=== PATIENT | male | born 1955 | race Caucasian/White ===

== ENCOUNTER 2016-12-29 17:43 | Emergency (ER) | payer OTHER ==
[~2016-12-29] VITALS: Ht 182.9 cm; Wt 117.4 kg
[~2016-12-29 17:43] MED LIST: ALL300 PO; CYAN100020 PO; GLC850 PO; LPT/20 PO; LSX80 PO; MAGN250T3 PO; MCR5 PO; OMEG5CAP PO; PRN1 PO; SITA1TAB27 PO; SPR25 PO; TIMO1SOL9 OPB; WARF5TAB90 PO; [UNRECOGNIZED DRUG - CODE] PO
[2016-12-29 18:00] VITALS: Ht 182.9 cm; Wt 117.4 kg
[2016-12-29] MEDS ORDERED: ONDANSETRON INJ 2 MG/ML 2 ML VIAL IV STA (18:16)
[2016-12-29] MEDS ORDERED: CEFAZOLIN SOD 1000MG/55 ML D5W IV STA (18:16)
[2016-12-29 18:53] LABS: HEMATOCRIT 33.8 % (42-52); MEAN CELL VOLUME 87.1 fL (80-100); MEAN CORPUSCULAR HEMOGLOBIN 30.7 pg (25-34); MEAN CORPUSCULAR HGB CONC 35.2 g/dl (32-36); MEAN PLATELET VOLUME 9.3 fL (7.4-10.4); PLATELET COUNT 147 K/uL (130-400); RED BLOOD COUNT 3.88 M/uL (4.7-6.1); WHITE BLOOD COUNT 10.82 K/uL (4.8-10.8)
[2016-12-29] MEDS ORDERED: ZIOPTAN 0.0015% OPB (18:54)
[2016-12-29] MEDS ORDERED: PILO1SOL3 OPB (18:54)
[2016-12-29] MEDS ORDERED: ASPI81TA28 PO (18:54)
[2016-12-29] MEDS ORDERED: LIRA18IN SQ (18:56)
[2016-12-29] MEDS ORDERED: POLYSOL50 OPR (19:00)
[2016-12-29] MEDS ORDERED: PRED1SUS3 OPR (19:00)
[2016-12-29] MEDS ORDERED: KETO0.4S2 OPR (19:00)
[2016-12-29 19:11] LABS: BUN/CREATININE RATIO 16.5 (10-20); CALCIUM 9.1 mg/dl (8.5-10.1); CREATININE 1.6 mg/dl (0.60-1.40); POTASSIUM 4.3 mmol/L (3.5-5.1)
[2016-12-29 19:19] LABS: BASO % 0.1 %; BASO ABS # 0.01 K/uL (0-0.2); COMPLETE YES; EOS % 1.8 %; IG% 0.2 %; LARGE PLATELETS 1+; LYMPH % 4.3 %; LYMPH ABS # 0.46 K/uL (1.2-3.4); MONO % 4.5 %; NEUT % 89.1 %
[2016-12-29] MEDS ORDERED: CEPH500C PO (19:58)
[2016-12-29] MEDS ORDERED: ONDA4TAB10 SL (19:59)
--- NOTE | 2016-12-29 20:00 | EMERGENCY ROOM VISIT NOTE ---
History Report prepared by Екатерина: Yobany Bustillo Under the Supervision of: Dr. Markie Martinez D.O. First contact with patient: 18:05 Chief Complaint: LEG PAIN,LEG INJURY Stated Complaint: POSSIBLE BLOOD CLOT IN LF LEG History of Present Illness The patient is a 61 year old male who presents to the Emergency Room with complaints of worsening pain in his left tavera beginning prior to arrival. He currently rates his discomfort a 6/10 in severity. The patient states that it feels like he is having a blood clot. He complains of fever, chills, and vomiting. He states he has not had a blood clot since 1985, and since then, he has been put on Warfarin. The patient notes that the last time his INR level was check was 6 days ago. He reports that his typical dose of Warfarin is 5.0, but on Wednesdays and it is increased to 7.5. The patient states that he recently had a cataract removed and was required to stop his blood thinner for 5 days. He notes he has resumed his daily dosage. The patient reports that he is getting surgery soon due to a history of open sores on his legs. He states that he is treated with Amoxicillin when he gets infections in his legs. Source of History: patient Onset: Prior to arrival Position: leg (left) Symptom Intensity: 6/10 Timing: worsening Associated Symptoms: + chills, + fevers, + vomiting Review of Systems See HPI for pertinent positives & negatives. A total of 10 systems reviewed and were otherwise negative. Past Medical & Surgical Medical Problems: (1) Bone infection (2) Diabetes Family History No significant family history Social History Smoking Status: Never Smoker Drug Use: none Marital Status: Housing Status: lives with family Occupation Status: employed Current/Historical Medications Scheduled Allopurinol (Allopurinol), 300 MG PO DAILY Aspirin (Aspirin Ec), 81 MG PO DAILY Atorvastatin (Atorvastatin Calcium), 20 MG PO DAILY Cephalexin Monohydrate (Keflex), 500 MG PO QID Cyanocobalamin (Vitamin B12), 1,000 MCG PO DAILY Furosemide (Furosemide), 80 MG PO DAILY Glyburide (Glyburide), 10 MG PO BID Ketorolac Tromethamine (Ophth) (Acular Ls), 1 DROPS OPR BID Liraglutide (Victoza), 1.8 MG SQ QAM Magnesium (Magnesium 250 mg), 500 MG PO DAILY Metformin HCl (Metformin HCl), 850 MG PO TID Multiple Vitamins W/ Iron (Daily Multiple Vitamins/I), 1 TAB PO DAILY [place]-3 Fatty Acids (Fish Oil 1200 mg), 1,200 MG PO DAILY Ondasetron Odt (Zofran Odt), 4 MG SL Q6H Pilocarpine Hcl (Isopto Carpine), 1 DROP OPB QID Polymyxin/Trimethoprim Oph (Polytrim Oph), 1 DROP OPR QID Prednisolone Acetate (Ophth) (Pred Forte 1% Oph), 1 DROPS OPR QID Repaglinide (Repaglinide), 1 MG PO AC Sitagliptin (Januvia), 100 MG PO DAILY Spironolactone (Spironolactone), 25 MG PO BID Timolol Maleate (Ophth) (Timoptic Ocudose), 1 DROP OPB DAILY Warfarin Sodium (Coumadin), 7.5 MG PO SATURDAY,SATURDAY [Zioptan 0.0015%], 1 DROP OPB HS Miscellaneous Medications Warfarin Sodium (Coumadin), 5 MG PO Allergies Coded Allergies: No Known Allergies (Unverified , 12/29/16) Physical Exam Vital Signs Date Time Temp Pulse Resp B/P Pulse Ox O2 Delivery O2 Flow Rate FiO2 12/29/16 18:00 36.8 115 18 135/64 97 Room Air Physical Exam CONSTITUTIONAL/VITAL SIGNS: Reviewed / noted above. GENERAL: Non-toxic in appearance. INTEGUMENTARY: Warm, dry, and Stark. HEAD: Normocephalic. EYES: without scleral icterus or trauma. ENT/OROPHARYNX: clear and moist. LYMPHADENOPATHY/NECK: Is supple without lymphadenopathy or meningismus. RESPIRATORY: Lungs clear and equal. CARDIOVASCULAR: Regular rate and rhythm. GI/ABDOMEN: Soft and nontender. No organomegaly or pulsatile mass. No rebound or guarding. Normal bowel sounds. EXTREMITIES: Left lower extremity reveals significant warmth, pinkish erythema to the mid and upper aspect of the leg, no abnormal discharge. BACK: No CVA tenderness. NEUROLOGICAL: Intact without focal deficits. PSYCHIATRIC: normal affect. MUSCULOSKELETAL: Normally developed with good muscle tone. Medical Decision & Procedures ER Provider Diagnostic Interpretation: Radiology results as stated below per my review and radiologist interpretation: Left lower extremity ultrasound: No evidence of DVT. Laboratory Results 12/29/16 18:40 Red Blood Count 3.88, Mean Corpuscular Volume 87.1, Mean Corpuscular Hemoglobin 30.7, Mean Corpuscular Hemoglobin Concent 35.2, Mean Platelet Volume 9.3, Neutrophils (%) (Auto) 89.1, Lymphocytes (%) (Auto) 4.3, Monocytes (%) (Auto) 4.5, Eosinophils (%) (Auto) 1.8, Basophils (%) (Auto) 0.1, Neutrophils # (Auto) 9.65, Lymphocytes # (Auto) 0.46, Monocytes # (Auto) 0.49, Eosinophils # (Auto) 0.19, Basophils # (Auto) 0.01 12/29/16 18:40 Test 12/29/16 18:40 White Blood Count 10.82 K/uL (4.8-10.8) Red Blood Count 3.88 M/uL (4.7-6.1) Hemoglobin 11.9 g/dL (14.0-18.0) Hematocrit 33.8 % (42-52) Mean Corpuscular Volume 87.1 fL (80-100) Mean Corpuscular Hemoglobin 30.7 pg (25-34) Mean Corpuscular Hemoglobin Concent 35.2 g/dl (32-36) Platelet Count 147 K/uL (130-400) Mean Platelet Volume 9.3 fL (7.4-10.4) Neutrophils (%) (Auto) 89.1 % Lymphocytes (%) (Auto) 4.3 % Monocytes (%) (Auto) 4.5 % Eosinophils (%) (Auto) 1.8 % Basophils (%) (Auto) 0.1 % Neutrophils # (Auto) 9.65 K/uL (1.4-6.5) Lymphocytes # (Auto) 0.46 K/uL (1.2-3.4) Monocytes # (Auto) 0.49 K/uL (0.11-0.59) Eosinophils # (Auto) 0.19 K/uL (0-0.5) Basophils # (Auto) 0.01 K/uL (0-0.2) RDW Standard Deviation 51.6 fL (36.4-46.3) RDW Coefficient of Variation 16.3 % (11.5-14.5) Immature Granulocyte % (Auto) 0.2 % Immature Granulocyte # (Auto) 0.02 K/uL (0.00-0.02) Nucleated RBC Absolute Count (auto) 0.02 K/uL (0-0) Nucleated Red Blood Cells % 0.2 % Large Platelets 1+ Basophilic Stippling 1+ Anion Gap 9.0 mmol/L (3-11) Est Creatinine Clear Calc Drug Dose 65.8 ml/min Estimated GFR () 53.9 Estimated GFR (Non- 46.5 BUN/Creatinine Ratio 16.5 (10-20) Calcium Level 9.1 mg/dl (8.5-10.1) Laboratory results as stated above per my review. Medications Administered Medications (Trade) Dose Ordered Sig/Rio Route Start Time Stop Time Status Last Admin Dose Admin Cefazolin Sodium (Ancef 1000mg/55 ml D5W) 2,000 mg NOW STAT IV 12/29/16 18:16 12/29/16 18:20 DC 12/29/16 18:56 2,000 MG Ondansetron HCl (Zofran Inj) 4 mg NOW STAT IV 12/29/16 18:16 12/29/16 18:20 DC 12/29/16 18:56 4 MG ED Course 180: Previous medical records were reviewed. The patient was evaluated in room B06. A complete history and physical examination was performed. 1815: Ordered Zofran Inj 4mg IV, Cefazolin Sodium 2000mg IV 1930: I reevaluated the patient, and he is resting easily. 2001: On reevaluation, the patient is feeling better. I discussed the results and findings with the patient. He verbalized agreement of the treatment plan. He was discharged home. Medical Decision Differential diagnosis: Etiologies such as cellulitis, abscess, MRSA infection, DVT, necrotizing fasciitis, dermatitis, drug eruption, as well as others were entertained. This is a 61-year-old male who presents to the ED with a chief complaint of left lower extremity discomfort. The patient states that he also had an episode of some fevers and chills subjectively earlier today. He also had an episode of vomiting. The patient has a history of lower extremity edema and ulcers. The patient has no other specific complaints at this time. His exam is suggestive of a cellulitis. He has erythema mostly in the proximal aspect of the lower extremity from the an area just below the knee to about 3 or 4 inches distal. This area is warm and pinkish red in color. There is no proximal erythematous tracking. The patient's blood work was performed. A CBC was relatively unremarkable. Chemistry panel did not show any significant abnormalities. An ultrasound did not show DVT. The patient is currently on Coumadin. This was stopped briefly for about 5 days for eye surgery. He is currently back on the Coumadin. The patient was given Ancef IV. He was given some IV Zofran. He'll be discharged on Zofran and Keflex. He has follow-up with the wound center. Impression Primary Impression: Cellulitis of left lower extremity Scribe Attestation The scribe's documentation has been prepared under my direction and personally reviewed by me in its entirety. I confirm that the note above accurately reflects all work, treatment, procedures, and medical decision making performed by me. Departure Information Dispostion Home / Self-Care Prescriptions Ondasetron Odt (ZOFRAN ODT) 4 Mg Tab 4 MG SL Q6H for Nausea, #15 TAB Prov: Markie Martinez D.O. 12/29/16 Cephalexin Monohydrate (Keflex) 500 Mg Cap 500 MG PO QID, #40 CAP Prov: Markie Martinez D.O. 12/29/16 Referrals Sheri Robledo M.D. (PCP) Patient Instructions Cellulitis Dc, [facility] Additional Instructions Keflex as prescribed for cellulitis of the left leg. Follow-up with your doctors as scheduled. Zofran: Allow one tablet to dissolve under the tongue every 6 hours as needed for nausea or vomiting. Return for any concerns or worsening.
--- NOTE | 2016-12-29 20:12 | DIAGNOSTIC IMAGING REPORT ---
Venous Doppler left leg LEFT VENOUS DOPP LOWER EXT UNILAT CLINICAL HISTORY: EVALUATE FOR DVT pain. Edema. TECHNIQUE: Venous Doppler COMPARISON STUDY: None FINDINGS: Normal study IMPRESSION: Normal study Electronically signed by: Prabhakar Horn M.D. 12/29/2016 8:11 PM Dictated Date/Time: 12/29/2016 8:11 PM
[2016-12-29 20:22] VITALS: BP 131/66; PULSE 101; TEMP 36.8; O2SAT 97
[2017-01-01] MEDS ORDERED: VALA500T60 PO (07:37)
[2017-01-25] MEDS ORDERED: SULF800T23 PO (14:51)
[2017-03-01] MEDS ORDERED: CEPH500C2 PO (13:43)
[2017-03-12] MEDS ORDERED: CEPH500C PO (08:47)
[2017-05-06] MEDS ORDERED: CEPH500C PO (13:24)
[2017-05-16] MEDS ORDERED: CEPH500C PO (08:53)
[2017-06-06] MEDS ORDERED: CEPH500C2 PO (09:42)
[2017-07-03] MEDS ORDERED: CEPH500C PO (09:37)
== END 2016-12-29 20:24 | disposition home or self-care (01) ==
LOC: C.EDB 17:44
DX: L03.116 Cellulitis of left lower limb (principal); E11.9 Type 2 diabetes mellitus without complications; Z79.01 Long term (current) use of anticoagulants; Z86.718 Personal history of other venous thrombosis and embolism; Z79.82 Long term (current) use of aspirin; Z79.84 Long term (current) use of oral hypoglycemic drugs

== ENCOUNTER → 2017-03-05 | Outpatient (CLI) | payer OTHER ==
[~2017-03-05] MED LIST changes: +ASPI81TA28 PO; +CEPH500C PO; +CEPH500C2 PO; +KETO0.4S2 OPR; +LIRA18IN SQ; +ONDA4TAB10 SL; +PILO1SOL3 OPB; +POLYSOL50 OPR; +PRED1SUS3 OPR; +ZIOPTAN 0.0015% OPB
[2017-03-05 12:53] LABS: HEMATOCRIT 32.6 % (42-52); MEAN CELL VOLUME 87.4 fL (80-100); MEAN CORPUSCULAR HEMOGLOBIN 29.5 pg (25-34); MEAN CORPUSCULAR HGB CONC 33.7 g/dl (32-36); MEAN PLATELET VOLUME 10.1 fL (7.4-10.4); PLATELET COUNT 169 K/uL (130-400); RED BLOOD COUNT 3.73 M/uL (4.7-6.1); WHITE BLOOD COUNT 5.08 K/uL (4.8-10.8)
[2017-03-05 13:11] LABS: INR 2.2 (0.9-1.1); PROTHROMBIN TIME (PATIENT) 24.2 SECONDS (9.0-12.0)
[2017-03-05 13:36] LABS: BLOOD UREA NITROGEN 26 mg/dl (7-18); BUN/CREATININE RATIO 16.4 (10-20); CALCIUM 9.2 mg/dl (8.5-10.1); CARBON DIOXIDE 25 mmol/L (21-32); CHLORIDE 104 mmol/L (98-107); GLUCOSE 344 mg/dl (70-99); POTASSIUM 4.3 mmol/L (3.5-5.1); SODIUM 137 mmol/L (136-145)
[2017-03-05 14:09] LABS: BETA-HYDROXYBUTYRATE 1.21 mg/dL (0.2-2.81)
== END | disposition home or self-care (01) ==
LOC: C.LABPBG 09:05
PROVIDERS: ATTEND Internal Medicine Interventional Cardiology
DX: Z01.818 Encounter for other preprocedural examination (principal)

== ENCOUNTER 2017-03-06 06:33 | Day surgery (SDC) | payer OTHER ==
[~2017-03-06] VITALS: Ht 182.9 cm; Wt 167.0 kg
[~2017-03-06 06:33] MED LIST changes: -CEPH500C PO; +SODIUM CHLORIDE 0.9% 1000ML IV SCH
[2017-03-06 06:50] VITALS: BP 168/77; PULSE 77; TEMP 37; O2SAT 98; Ht 182.9 cm; Wt 167.0 kg
[2017-03-06] MEDS ORDERED: SODIUM BICARB 8.4% INJ 50 MEQ/50 ML SYR IV ONE (07:38)
[2017-03-06] MEDS ORDERED: LIDOCAINE/EPINEPHRINE 1% INJ 50 ML VIAL ONE ×2 (07:38→09:35)
[2017-03-06] MEDS ORDERED: LIDOCAINE HCL 1% 20 ML VIAL ONE (07:39)
[2017-03-06] MEDS ORDERED: FENTANYL CITRATE INJ 50 MCG/1 ML 2 ML VIAL ONE (07:39)
[2017-03-06] MEDS ORDERED: MIDAZOLAM HCL 1 MG/ML 2ML VIAL ONE (07:39)
[2017-03-06 07:52] VITALS: BP 168/77; PULSE 77; TEMP 37; O2SAT 98
--- NOTE | 2017-03-06 08:12 | History and Physical ---
History & Physical Date Mar 06, 2017. History of Present Illness Mr. Wu is a 62-year-old man with history of type 2 diabetes, on oral therapy, prior DVT, on long-term Coumadin, and chronic venous insufficiency with longstanding lower extremity wounds, who was seen at the wound center on 11/29 for further evaluation of his chronic venous insufficiency. The patient states that he has had issues with lower extremity swelling, skin discoloration for more than 15 years. More recently, he has had ulcerations bilaterally over his lower extremities in the setting of significant skin discoloration since March of this year. The patient was previously followed by the wound care center in [place], previously being treated with Unna boots. More recently, he has been treated by the [facility] with improvement in his ulcerations. The patient reports history of DVT which sounds to be a right popliteal DVT in the setting of trauma in 1984. He has never had any additional vein therapy. He is not a current smoker. He continues to take diuretics with some improvement in symptoms. PAST MEDICAL HISTORY: 1. Chronic venous insufficiency with recurrent venous stasis ulcerations. 2. Prior DVT as discussed above. 3. Type 2 diabetes. 4. Osteomyelitis of the right fifth toe, status post amputation. 5. Glaucoma. Additional History Hepatic Disease: No Endocrine Disorder: Yes Kidney Disease: No Hypertension: Yes Heart Disease: No Bleeding Tendencies: No Infectious Diseases: No Allergies Coded Allergies: No Known Allergies (Unverified , 03/06/17) Home Medications Scheduled Allopurinol (Allopurinol), 300 MG PO DAILY Aspirin (Aspirin Ec), 81 MG PO DAILY Atorvastatin (Atorvastatin Calcium), 20 MG PO DAILY Cephalexin Monohydrate (Keflex), 500 MG PO TID Cyanocobalamin (Vitamin B12), 1,000 MCG PO DAILY Furosemide (Furosemide), 80 MG PO DAILY Glyburide (Glyburide), 10 MG PO BID Ketorolac Tromethamine (Ophth) (Acular Ls), 1 DROPS OPR BID Liraglutide (Victoza), 1.8 MG SQ QAM Magnesium (Magnesium 250 mg), 500 MG PO DAILY Metformin HCl (Metformin HCl), 850 MG PO TID Multiple Vitamins W/ Iron (Daily Multiple Vitamins/I), 1 TAB PO DAILY [place]-3 Fatty Acids (Fish Oil 1200 mg), 1,200 MG PO DAILY Pilocarpine Hcl (Isopto Carpine), 1 DROP OPB QID Polymyxin/Trimethoprim Oph (Polytrim Oph), 1 DROP OPR QID Prednisolone Acetate (Ophth) (Pred Forte 1% Oph), 1 DROPS OPR QID Repaglinide (Repaglinide), 1 MG PO AC Sitagliptin (Januvia), 100 MG PO DAILY Spironolactone (Spironolactone), 25 MG PO BID Timolol Maleate (Ophth) (Timoptic Ocudose), 1 DROP OPB DAILY Warfarin Sodium (Coumadin), 7.5 MG PO SATURDAY,SATURDAY Miscellaneous Medications Warfarin Sodium (Coumadin), 5 MG PO Physical Examination Skin: warm/dry Eyes: normal inspection ENT: normal ENT inspection Neck: supple Respiratory/Chest: lungs clear Cardiovascular: regular rate, rhythm Abdomen / GI: normal bowel sounds Back: normal inspection Extremities: + pertinent finding (Rash on upper right thigh. chronic venous stasis changes bilaterally. distal LE's wrapped) Neurologic/Psych: no motor/sensory deficits Diagnosis Chronic venous insufficiency ASA Classification: ASA Class III Plan of Treatment Right GSV RF ablation
--- NOTE | 2017-03-06 08:13 | Procedure Note ---
Pre-Mod Sedation Assessment General Date of Moderate Sedation: Mar 06, 2017. Vital Signs: Vital Signs Past 12 Hours Date Time Temp Pulse Resp B/P (MAP) Pulse Ox O2 Delivery O2 Flow Rate FiO2 03/06/17 06:50 37 77 20 168/77 (107) 98 Room Air Review Cardiovascular: regular rate, rhythm, no edema Abdomen: normal bowel sounds, non tender Lungs: chest non-tender, lungs clear Pre-Sedation Airway Assessment Oral Cavity: Capped Teeth, WNL Able to Visualize Vocal Cords: No Short Thick Neck: Yes Hx of Sleep Apnea: Yes Smoking Status: Never Smoker Mallampati Classification: Class III ASA Classification: Class III Procedure Planning Contraindications-for Mod Sed: None Yes Notes The planned sedation has been discussed with the patient and consent obtained. I have identified the patient, determined the appropriateness of sedation and have assessed the patient immediately prior to the procedure. All medicine(s) and interventions are by my order.
[2017-03-06] MEDS ORDERED: LIDOCAINE HCL 1% 20 ML VIAL INJ ONE (09:06)
[2017-03-06] MEDS ORDERED: ORM MISCELLANEOUS MED XX ONE (09:54)
--- NOTE | 2017-03-06 09:59 | [facility] Operative Report ---
Operative Report Operative Date Mar 06, 2017. Pre-Operative Diagnosis Chronic venous insufficiency Post-Operative Diagnosis Chronic venous insufficiency Procedure(s) Performed Right GSV RF ablation Surgeon Connor Hadoop Consultant Surgeon(s) Kaitlin Estimated Blood Loss 4 Findings Dilated Right GSV Specimens None Drains None Anesthesia Moderate Complication(s) None Disposition Recovery Room / PACU Indications CVI, Venous ulcerations Description of Procedure US guided access Right GSV below the knee. Catheter inserted, 2.75 cm from SFJ. Tumescent injected. US confirmed not in deep system. 5:20, 16 cycles of RFA right GSV. No complications. Patient tolerated well. US confirmed no DVT post procedure. I attest to the content of the Intraoperative Record and any orders documented therein. Any exceptions are noted below.
--- NOTE | 2017-03-06 09:59 | Procedure Note ---
Post-Mod Sedation Assessment General Date of Moderate Sedation Mar 06, 2017. Vital Signs: Vital Signs Past 12 Hours Date Time Temp Pulse Resp B/P (MAP) Pulse Ox O2 Delivery O2 Flow Rate FiO2 03/06/17 07:52 37.0 77 20 168/77 98 Room Air 03/06/17 06:50 37 77 20 168/77 (107) 98 Room Air Review - Discharge Criteria Vital Signs Stable: Yes Alert/Oriented/Conversant: Yes Returned to Baseline Mental St: Yes Nausea Absent/Minimal: Yes Pain/Discomfort/Absent/Minimal: Yes Normal/Baseline Respirations: Yes Active Bleeding?: No Pt Received D/C Instructions: N/A Prescriptions Given: None Specific Proced. D/C Criteria Distal Pulses Present (Cardiac: N/A Groin site assessed-Card Cath: N/A Voided Prior To Discharge: N/A Discharged Patients Adult Escort/Transportation: Yes
--- NOTE | 2017-03-06 10:03 | Discharge Instructions ---
Discharge Instructions Procedure Procedure Date: Mar 06, 2017. Reason for Visit: Venous Insufficiency. Discharge Discharge Date: Mar 06, 2017. Discharge Diagnosis: Venous insufficiency Last Recorded Wt (Kilograms): 167 Instructions Activity Recommendations: resume regular activity (Follow instructions on paperwork from Dr. Ryan' office) Recommended Home Diet: resume previous diet Allergies: Coded Allergies: No Known Allergies (Unverified , 03/06/17) Follow Up Follow-up with: Follow-up ultrasound on 03/08/2017 at 8:45 [facility] Recommendations: Call your doctor if: * Temperature above 101 degrees * Pain not relieved by pain medicine ordered * There is increased drainage or redness from any incision * You have any unanswered questions or concerns. Your Doctors Instructions noted above were prepared by provider Kali Ryan. Patient Signature Section: Patient Instructions Signature Page Ronnie Wu Patient (or Guardian) Signature/Date: I have read and understand the instructions given to me by my caregivers. Caregiver/RN/Doctor Signature/Date: The above-named patient and/or guardian has received patient instructions on this date. + Original Patient Signature Page (only) stays with chart. Please make copy for patient.
[2017-03-06 10:15] VITALS: BP 156/79; PULSE 74; TEMP 36.7; O2SAT 100
[2017-03-06 10:45] VITALS: BP 140/63; PULSE 76; TEMP 36.7; O2SAT 99
[2017-03-12] MEDS ORDERED: CEPH500C PO (08:47)
[2017-05-06] MEDS ORDERED: CEPH500C PO (13:24)
[2017-05-16] MEDS ORDERED: CEPH500C PO (08:53)
== END 2017-03-06 11:00 | disposition home or self-care (01) ==
LOC: C.ACU 06:33
PROVIDERS: ATTEND Internal Medicine Interventional Cardiology
DX: E11.9 Type 2 diabetes mellitus without complications (principal); Z79.84 Long term (current) use of oral hypoglycemic drugs; Z86.718 Personal history of other venous thrombosis and embolism; Z79.01 Long term (current) use of anticoagulants; I87.2 Venous insufficiency (chronic) (peripheral); L97.901 Non-pressure chronic ulcer of unspecified part of unspecified lower leg limited to breakdown of skin; Z86.19 Personal history of other infectious and parasitic diseases; H40.9 Unspecified glaucoma; Z79.82 Long term (current) use of aspirin

== ENCOUNTER → 2017-05-01 | Day surgery (SDC) | payer OTHER ==
[2017-05-01] VITALS (14 sets, daily range): BP systolic 131–184; BP diastolic 66–83; PULSE 64–70; TEMP 36.7–37.2; O2SAT 96–100; Ht 182.9 cm; Wt 163.5 kg
[~2017-05-01] VITALS: Ht 182.9 cm; Wt 163.5 kg
[~2017-05-01] MED LIST changes: +CEPH500C PO; -CEPH500C2 PO; +LIDOCAINE HCL 1% 20 ML VIAL INFIL ONE; +LIDOCAINE HCL 1% 20 ML VIAL ONE; +LIDOCAINE/EPINEPHRINE 1% INJ 50 ML VIAL ONE; -ONDA4TAB10 SL; +ORM MISCELLANEOUS MED XX ONE; -ZIOPTAN 0.0015% OPB
--- NOTE | 2017-05-01 09:14 | Procedure Note ---
Pre-Mod Sedation Assessment General Date of Moderate Sedation: May 01, 2017. Vital Signs: Vital Signs Past 12 Hours Date Time Temp Pulse Resp B/P (MAP) Pulse Ox O2 Delivery O2 Flow Rate FiO2 05/01/17 08:38 36.7 66 20 184/83 (116) 98 Room Air Review Cardiovascular: regular rate, rhythm, no edema Abdomen: normal bowel sounds, non tender Lungs: chest non-tender, lungs clear Airway Class: III Pre-Sedation Airway Assessment Oral Cavity: WNL Able to Visualize Vocal Cords: No Short Thick Neck: Yes Hx of Sleep Apnea: No Smoking Status: Never Smoker Mallampati Classification: Class III ASA Classification: Class II Procedure Planning Contraindications-for Mod Sed: None Yes Notes The planned sedation has been discussed with the patient and consent obtained. I have identified the patient, determined the appropriateness of sedation and have assessed the patient immediately prior to the procedure. All medicine(s) and interventions are by my order.
--- NOTE | 2017-05-01 09:14 | History & Physical Bridge Note ---
H&P Re-Evaluation Bridge Note: I have examined the patient, reviewed the History & Physical and in the interval since the performance of the History & Physical I have noted the following changes of clinical significance: No changes noted
--- NOTE | 2017-05-01 10:40 | Procedure Note ---
Post-Mod Sedation Assessment General Date of Moderate Sedation May 01, 2017. Vital Signs: Vital Signs Past 12 Hours Date Time Temp Pulse Resp B/P (MAP) Pulse Ox O2 Delivery O2 Flow Rate FiO2 05/01/17 09:23 36.7 66 20 184/83 98 Room Air 05/01/17 08:38 36.7 66 20 184/83 (116) 98 Room Air Review - Discharge Criteria Vital Signs Stable: Yes Alert/Oriented/Conversant: Yes Returned to Baseline Mental St: Yes Nausea Absent/Minimal: Yes Pain/Discomfort/Absent/Minimal: Yes Normal/Baseline Respirations: Yes Active Bleeding?: No Pt Received D/C Instructions: Yes Prescriptions Given: None Specific Proced. D/C Criteria Distal Pulses Present (Cardiac: N/A Groin site assessed-Card Cath: N/A Voided Prior To Discharge: N/A Discharged Patients Adult Escort/Transportation: Yes
--- NOTE | 2017-05-01 10:42 | [facility] Operative Report ---
Operative Report Operative Date May 01, 2017. Pre-Operative Diagnosis Venous insufficiency Post-Operative Diagnosis Venous insufficiency Procedure(s) Performed Left Leg Greater Saphenous Vein Radiofrequency Ablation Surgeon Connor Proposal Rep Surgeon(s) None Estimated Blood Loss 5 Findings Dilated left GSV Specimens None Drains none Anesthesia local Complication(s) None Disposition Recovery Room / PACU Indications Venous insufficiency, venous ulcers Description of Procedure US guided access Left GSV below the knee. Catheter inserted, 3cm from SFJ. Tumescent injected. US confirmed not in deep system. 4:20, 13 cycles of RFA to left GSV. No complications. Patient tolerated well. US confirmed no DVT post procedure. I attest to the content of the Intraoperative Record and any orders documented therein. Any exceptions are noted below.
--- NOTE | 2017-05-01 10:44 | Discharge Instructions ---
Discharge Instructions Procedure Procedure Date: May 01, 2017. Reason for Visit: Venous Insufficiency. Discharge Discharge Date: May 01, 2017. Discharge Diagnosis: Venous insufficiency Last Recorded Wt (Kilograms): 163.5 Anesthesia Post Anesthesia Instructions: If you have had General Anesthesia or IV Sedation: * Do not drive today. * Resume driving when surgeon permits. * Do not make important decisions or sign legal documents today. * Call surgeon for: 1. Temperature elevations greater than 101 degrees F. 2. Uncontrollable pain. 3. Excessive bleeding. 4. Persistent nausea and vomiting. 5. Medication intolerance (nausea, vomiting or rash). * For nausea and vomiting use only clear liquids such as: tea, soda, bouillon until nausea subsides, then gradually increase diet as tolerated. * If you have any concerns or questions, call your surgeon's office. If physician is unavailable and it is an emergency, call 911 or go to the nearest emergency room. Instructions Activity Recommendations: limitations as noted below Recommended Home Diet: resume previous diet Allergies: Coded Allergies: No Known Allergies (Unverified , 05/01/17) Follow Up Additional Instructions: Follow instructions as outlined on paperwork from Dr. Ryan' office. RIKI wrap until seen by wound clinic. Follow up Ultrasound as scheduled. Any severe pain, present to the emergency room concerned about DVT. Follow-up with: As Scheduled Kiki Pichardo Recommendations: Call your doctor if: * Temperature above 101 degrees * Pain not relieved by pain medicine ordered * There is increased drainage or redness from any incision * You have any unanswered questions or concerns. Your Doctors Instructions noted above were prepared by provider Kali Ryan. Patient Signature Section: Patient Instructions Signature Page Ronnie Wu Patient (or Guardian) Signature/Date: I have read and understand the instructions given to me by my caregivers. Caregiver/RN/Doctor Signature/Date: The above-named patient and/or guardian has received patient instructions on this date. + Original Patient Signature Page (only) stays with chart. Please make copy for patient.
== END | disposition home or self-care (01) ==
LOC: C.ACU 07:53
PROVIDERS: ATTEND Internal Medicine Interventional Cardiology
DX: I87.2 Venous insufficiency (chronic) (peripheral) (principal); E11.9 Type 2 diabetes mellitus without complications; Z86.718 Personal history of other venous thrombosis and embolism; Z79.01 Long term (current) use of anticoagulants; Z79.82 Long term (current) use of aspirin; Z79.84 Long term (current) use of oral hypoglycemic drugs; Z79.899 Other long term (current) drug therapy

== ENCOUNTER 2019-06-09 11:00 | Observation (INO) ==
[2019-06-09 12:46] LABS: Appearance Urine Clear (Clear); Bilirubin Urine Negative (Negative); Blood Urine Negative (Negative); Color Urine Yellow; Glucose Urine UA 3+ (Negative); Ketones Urine Negative (Negative); Leukocyte Esterase Urine Negative (Negative); Nitrite Urine Negative (Negative); Protein Urine Negative (Negative); Specific Gravity Urine 1.017 (1.000-1.030); Urobilinogen Urine Negative (Negative)
[2019-06-09 12:50] LABS: Basophils # (auto) 0.02 K/uL (0-0.2); Basophils % (auto) 0.3 %; Eosinophils # (auto) 0.25 K/uL (0-0.5); Hematocrit (blood only) 30.2 % (42-52); Hemoglobin 10.9 g/dL (14.0-18.0); Immature Granulocytes # (auto) 0.01 K/uL (0.00-0.02); Immature Granulocytes % (auto) 0.2 %; Lymphocytes # (auto) 1.92 K/uL (1.2-3.4); Lymphocytes % (auto) 30.5 %; Mean Corpuscular Hemoglobin 31.3 pg (25-34); Mean Corpuscular Hgb Conc 36.1 g/dL (32-36); Mean Corpuscular Volume 86.8 fL (80-100); Monocytes # (auto) 0.33 K/uL (0.11-0.59); Monocytes % (auto) 5.2 %; Neutrophils # (auto) 3.77 K/uL (1.4-6.5); Neutrophils % (auto) 59.8 %; Platelet Count 131 K/uL (130-400); RDW Coefficient of Variation 15.7 % (11.5-14.5); RDW Standard Deviation 49.1 fL (36.4-46.3); Red Blood Count 3.48 M/uL (4.7-6.1)
[2019-06-09 13:06] LABS: Albumin Level 3.7 gm/dl (3.4-5.0); BUN Creatinine Ratio 33.7 (10-20); Calcium 9.1 mg/dl (8.5-10.1); Creatinine Clr Calc Pharmacy 61.7 ml/min; Est GFR (African American) 42.6; Est GFR (Non-African American) 36.7; Potassium 5.5 mmol/L (3.5-5.1)
[2019-06-09 13:09] LABS: Albumin Globulin Ratio 0.9 (0.9-2); Bilirubin,Total 0.6 mg/dl (0.2-1); Total Protein 7.7 gm/dl (6.4-8.2)
[2019-06-09] MEDS ORDERED: SODIUM CHLORIDE 0.9% 1000ML 2,000 ML IV ONE (14:53)
--- NOTE | 2019-06-09 15:32 | CT Scan Report ---
CT SCAN OF THE ABDOMEN AND PELVIS WITHOUT CONTRAST CLINICAL HISTORY: Elevated lipase and creatinine. COMPARISON STUDY: No previous studies for comparison. TECHNIQUE: CT scan of the abdomen and pelvis was performed from the lung bases to the proximal femurs . Images are reviewed in the axial, sagittal, and coronal planes. IV contrast was not administered fo r this examination. A dose lowering technique was utilized adhering to the principles of ALARA. CT DOSE: 1739.33 mGy.cm FINDINGS: Lower chest: The heart is normal in size and configuration, without pericardial effusion. The lung ba ses and pleural spaces are clear. Liver: The unenhanced liver is normal in size, contour, and attenuation. There is no intrahepatic dee iary ductal dilatation. Gallbladder: Cholelithiasis Spleen: Borderline enlarged measuring 12.3 cm in length Pancreas: Unremarkable. Adrenal glands: Unremarkable. Kidneys: There is a 13 mm calculus within the right renal pelvis. There is no significant hydronephro sis. Bilateral hypodense renal lesions statistically represent cysts. Bowel: There are no transition zones indicate bowel obstruction. There is no evidence of acute divert iculitis. The appendix appears normal. Peritoneum: There is no intraperitoneal free air or abdominal ascites. There is a small fat-containin g left inguinal hernia Vasculature: There is moderate atheromatous calcifications. There is no evidence of abdominal aortic aneurysm. Adenopathy: None. Pelvic viscera: The bladder, and pelvic viscera are unremarkable. Skeletal structures: No destructive osseous lesions are seen. IMPRESSION: 1. No evidence of bowel obstruction. No evidence of free air 2. Normal appendix. No evidence of acute diverticulitis 3. Cholelithiasis 4. 13 mm calculus within the right renal pelvis Electronically signed by: Misha Urbano M.D. 06/09/2019 3:31 PM
--- NOTE | 2019-06-09 17:08 | Emergency Department Note ---
Entered by Minh Ernst acting as a scribe for Phan Voss DO History of Present Illness General Chief complaint: Abnormal Labs/Diagnostic Testing Stated complaint: SENT BY DOC ABNORMAL LABS Source: patient History of Present Illness Provider complaint: abnormal labs Onset (ago): hour(s) less than 1 Location: abdomen Pain Consistency: + other (worsening) Quality: + other (abdnormal ) Associated symptoms: + denies other symptoms The patient is a 65 y/o male with a past medical history of diabetes and venous stasis ulcers, who presents to the emergency department for evaluation of abnormal blood work from [facility] prior to arrival. The patient states that he was told that he had abdominal blood work done on Saturday. He reports that he has blood work done last week when he first noticed he was not feeling well and when his repeat work was done on Saturday they informed him it looked worse and to come to the ED. He states that last week he was feeling dizzy and light headed which is worse with standing up. Patient denies swelling of calves, recent trips, history of immobilization or recent surgery, prior history of DVT, hemoptysis, history of malignancy, history of smoking, and any other symptoms. Home Medications Home Medications Medication Instructions Recorded Confirmed Type allopurinol 300 mg tablet 300 mg PO QAM 04/08/18 06/09/19 History aspirin 81 mg tablet,delayed 81 mg PO QAM 04/08/18 06/09/19 History release atorvastatin 20 mg tablet 20 mg PO QAM 04/08/18 06/09/19 History cyanocobalamin (vit B-12) 1,000 1,000 mcg PO QAM 04/08/18 06/09/19 History mcg tablet furosemide 80 mg tablet 80 mg PO QAM 04/08/18 06/09/19 History glyburide 5 mg tablet 5 mg PO BIDM 04/08/18 06/09/19 History liraglutide 0.6 mg/0.1 mL (18 mg/3 1.8 mg SQ QAM ml 04/08/18 06/09/19 History mL) subcutaneous pen injector magnesium 250 mg (as magnesium 500 mg PO QAM tab 04/08/18 06/09/19 History oxide) tablet metformin 850 mg tablet 850 mg PO TIDM tab 04/08/18 06/09/19 History omega 8-ycv-mac-fish oil 100 1 cap PO QAM cap 04/08/18 06/09/19 History mg-160 mg-1,000 mg capsule repaglinide 1 mg tablet 2 mg PO AC 04/08/18 06/09/19 History warfarin 5 mg tablet 5 mg PO SUTUWETHFRSA 04/08/18 06/09/19 History warfarin 7.5 mg tablet 7.5 mg PO MO 04/08/18 06/09/19 History amlodipine 2.5 mg PO QAM 09/03/18 06/09/19 History latanoprost 1 drp OPHTHALMIC (EYE) HS 09/03/18 06/09/19 History carvedilol 3.125 mg PO BID 01/02/19 06/09/19 History lisinopril 20 mg tablet 20 mg PO HS tab 04/15/19 06/09/19 History spironolactone 25 mg tablet 25 mg PO QAM tab 04/15/19 06/09/19 History dorzolamide-timolol 1 drp OPB BID 06/09/19 06/09/19 History multivitamin 1 tab PO QAM 06/09/19 06/09/19 History Allergies Allergy/AdvReac Type Severity Reaction Status Date / Time No Known Allergies Allergy Verified 06/09/19 13:03 Past Med/Surg History Medical History History of amputation of toe Vitamin B12 deficiency Anemia Hx of deep venous thrombosis Chronic anticoagulation T2DM (type 2 diabetes mellitus) Diabetic neuropathy Mild nonproliferative diabetic retinopathy SPENCER (obstructive sleep apnea) Gout CHF (congestive heart failure) CKD (chronic kidney disease) stage 3, GFR 30-59 ml/min RLS (restless legs syndrome) Chronic venous insufficiency (Chronic) Diabetes (Chronic) TYPE 2. Diabetes mellitus, type 2 +NEUROPATHY IN B/L FEET. History of DVT (deep vein thrombosis) LEFT LEG IN 1984. OCCURED AFTER INJURY. 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 and A total of 10 systems reviewed and were otherwise negative Physical Exam Vital Signs Vital Signs - 24 hr 06/09/19 11:01 06/09/19 13:46 06/09/19 15:25 Temperature 36.2 C L Temperature Source Oral Sepsis Recent Fever Within 48 Hours No Sepsis New/Unexplained Change in Mental Status No Sepsis Action Taken by Nursing No Action Required Pulse Rate 66 Pulse Rate [Right Finger] 78 67 Pulse Rhythm [Right Finger] Regular Regular Pulse Strength [Right Finger] Normal Normal Respiratory Rate 20 20 16 Respiratory Effort / Characteristics Non-Labored Spontaneous Non-Labored Spontaneous Respiratory Depth Normal Normal Normal Respiratory Pattern Regular Regular Blood Pressure 168/71 H Blood Pressure [Right Arm] 137/69 144/69 H Blood Pressure Mean 103 Blood Pressure Mean [Right Arm] 91 94 Blood Pressure Position [Right Arm] Lying Sitting Pulse Oximetry 98 100 100 Oxygen Delivery Method Room Air Room Air Room Air 06/09/19 15:26 Temperature Temperature Source Sepsis Recent Fever Within 48 Hours Sepsis New/Unexplained Change in Mental Status Sepsis Action Taken by Nursing Pulse Rate Pulse Rate [Right Finger] 63 Pulse Rhythm [Right Finger] Regular Pulse Strength [Right Finger] Normal Respiratory Rate 20 Respiratory Effort / Characteristics Non-Labored Spontaneous Respiratory Depth Normal Respiratory Pattern Blood Pressure Blood Pressure [Right Arm] 144/69 H Blood Pressure Mean Blood Pressure Mean [Right Arm] 94 Blood Pressure Position [Right Arm] Lying Pulse Oximetry 100 Oxygen Delivery Method Room Air GENERAL: Sitting up in bed, obese, pleasant, wearing gown. EYE EXAM: normal conjunctiva. OROPHARYNX: no exudate, no erythema, lips, buccal mucosa, and tongue normal and mucous membranes are moist NECK: supple, no nuchal rigidity, no adenopathy, non-tender LUNGS: Clear to auscultation. Normal chest wall mechanics HEART: no murmurs, S1 normal and S2 normal ABDOMEN: abdomen soft, non-tender, normo-active bowel sounds, no masses, no rebound or guarding. BACK: Back is symmetrical on inspection and there is no deformity, no midline tenderness, no CVA tenderness. SKIN: no rashes and no bruising UPPER EXTREMITIES: upper extremities are grossly normal. LOWER EXTREMITIES: No pitting edema. calves equal bilaterally NEURO EXAM: Normal sensorium, cranial nerves II-XII intact, normal speech, no weakness of arms, no weakness of legs. Course ED COURSE: Vital signs were reviewed and showed hypertensive The patients medical record was reviewed The above diagnostic studies were performed and reviewed. ED treatments and interventions as stated above. 1214: The patient was evaluated in room B03. A complete history and physical examination was performed. 1451: I spoke with Laverne Osman. She will evaluate for further management. 1500: Upon reevaluation, the patient is feeling fine. I discussed my findings with the patient and he understands and agrees with the treatment plan. Based on the patients age, coexisting illnesses, exam and lab findings the decision to treat as an inpatient was made. The patient remained stable while under my care. The patient will be evaluated for further management. Administered Medications Discontinued Medications Sodium Chloride (Nss 1000ml) 2,000 mls @ 999 mls/hr IV .Q2H1M ONE Stop: 06/09/19 16:53 Last Admin: 06/09/19 14:53 Dose: 999 mls/hr Documented by: [id number] Medical Decision Making Differential Diagnosis Differential diagnosis: Etiologies such as benign positional vertigo, labrynthitis, dehydration, hypovolemia, anemia, tumor, infection, hypoglycemia, electrolyte abnormalities, cardiac sources, toxicological sources, central neurologic process, as well as others were entertained. Medical Records Attestation: I reviewed the patient's medical records. Home Medications Current Medication List: was personally reviewed by me Laboratory Data Attestation: I reviewed the patient's lab results. Result diagrams: 06/09/19 12:06/09/19 12:29 Lab Results 06/09/19 06/09/19 06/09/19 Range/Units 12:29 12:29 12:29 WBC 6.30 (4.8-10.8) K/uL RBC 3.48 L (4.7-6.1) M/uL Hgb 10.9 L (14.0-18.0) g/dL Hct 30.2 L (42-52) % MCV 86.8 (80-100) fL MCH 31.3 (25-34) pg MCHC 36.1 H (32-36) g/dL RDW Std Deviation 49.1 H (36.4-46.3) fL RDW Coeff of Brent 15.7 H (11.5-14.5) % Plt Count 131 (130-400) K/uL MPV 9.0 (7.4-10.4) fL Immature Gran % (Auto) 0.2 % Neut % (Auto) 59.8 % Lymph % (Auto) 30.5 % [place] % (Auto) 5.2 % Eos % (Auto) 4.0 % Baso % (Auto) 0.3 % Immature Gran # (Auto) 0.01 (0.00-0.02) K/uL Neut # (Auto) 3.77 (1.4-6.5) K/uL Lymph # (Auto) 1.92 (1.2-3.4) K/uL [place] # (Auto) 0.33 (0.11-0.59) K/uL Eos # (Auto) 0.25 (0-0.5) K/uL Baso # (Auto) 0.02 (0-0.2) K/uL Sodium 135 L (136-145) mmol/L Potassium 5.5 H (3.5-5.1) mmol/L Chloride 105 (98-107) mmol/L Carbon Dioxide 21 (21-32) mmol/L Anion Gap 8.0 (3-11) BUN 64 H (7-18) mg/dl Creatinine 1.91 H (0.6-1.4) mg/dl Est Cr Clr Drug Dosing 61.7 ml/min Est GFR ( Amer) 42.6 Est GFR (Non-Af Amer) 36.7 BUN/Creatinine Ratio 33.7 H (10-20) Glucose 282 H (70-99) mg/dl Calcium 9.1 (8.5-10.1) mg/dl Total Bilirubin 0.6 (0.2-1) mg/dl AST 23 (15-37) U/L ALT 34 (12-78) U/L Alkaline Phosphatase 68 (45-117) U/L Total Protein 7.7 (6.4-8.2) gm/dl Albumin 3.7 (3.4-5.0) gm/dl Globulin 4.0 (2.5-4.0) gm/dl Albumin/Globulin Ratio 0.9 (0.9-2) Lipase 1724 H (73-393) U/L Urine Color Yellow Urine Appearance Clear (Clear) Urine pH 6.0 (4.5-7.5) Ur Specific [place] 1.017 (1.000-1.030) Urine Protein Negative (Negative) Urine Glucose (UA) 3+ H (Negative) Urine Ketones Negative (Negative) Urine Blood Negative (Negative) Urine Nitrite Negative (Negative) Urine Bilirubin Negative (Negative) Urine Urobilinogen Negative (Negative) Ur Leukocyte Esterase Negative (Negative) Imaging Data Radiologist's Impression: Radiology results as stated below per my review and the radiologist's interpretation: CT SCAN OF THE ABDOMEN AND PELVIS WITHOUT CONTRAST CLINICAL HISTORY: Elevated lipase and creatinine. COMPARISON STUDY: No previous studies for comparison. TECHNIQUE: CT scan of the abdomen and pelvis was performed from the lung bases to the proximal femurs. Images are reviewed in the axial, sagittal, and coronal planes. IV contrast was not administered for this examination. A dose lowering technique was utilized adhering to the principles of ALARA. CT DOSE: 1739.33 mGy.cm FINDINGS: Lower chest: The heart is normal in size and configuration, without pericardial effusion. The lung bases and pleural spaces are clear. Liver: The unenhanced liver is normal in size, contour, and attenuation. There is no intrahepatic biliary ductal dilatation. Gallbladder: Cholelithiasis Spleen: Borderline enlarged measuring 12.3 cm in length Pancreas: Unremarkable. Adrenal glands: Unremarkable. Kidneys: There is a 13 mm calculus within the right renal pelvis. There is no significant hydronephrosis. Bilateral hypodense renal lesions statistically represent cysts. Bowel: There are no transition zones indicate bowel obstruction. There is no evidence of acute diverticulitis. The appendix appears normal. Peritoneum: There is no intraperitoneal free air or abdominal ascites. There is a small fat-containing left inguinal hernia Vasculature: There is moderate atheromatous calcifications. There is no evidence of abdominal aortic aneurysm. Adenopathy: None. Pelvic viscera: The bladder, and pelvic viscera are unremarkable. Skeletal structures: No destructive osseous lesions are seen. IMPRESSION: 1. No evidence of bowel obstruction. No evidence of free air 2. Normal appendix. No evidence of acute diverticulitis 3. Cholelithiasis 4. 13 mm calculus within the right renal pelvis Electronically signed by: Misha Urbano M.D. 06/09/2019 3:31 PM ECG Data Attestation: I personally reviewed and interpreted this ECG as follows: Indication: other (abnormal labs ) Rate (beats per minute): 64 Rhythm: sinus rhythm ECG Intervals/blocks: Normal QT ECG [place]: Normal ECG ST segments: ST elevation (mild- Inferior) ECG Findings: PVCs (no pvc) Blood Pressure Blood Pressure Findings: Elevated blood pressure Blood Pressure Disposition: further management by hospitalist MAINE Narrative Patient is a 64-year-old male who presents the ER referred in by PCP for weakness. Patient was dizzy and lightheaded and weak last week and had blood work obtained which showed some mild ZAHRAA. Blood pressure medications were changed and repeat blood work was obtained today which was abnormal and patient was referred into the ER. He has no abdominal pain nausea or vomiting. IV was established and shows no significant leukocytosis but a mild anemia. BMP with a potassium of 5.5 and a creatinine of 1.9 just slightly above previous at 1.6. BUN was significantly elevated at 64. Glucose was elevated to 282. Lipase was significantly elevated at 17,000. UA was negative. CT abdomen pelvis shows no acute pathology. Patient was given IV fluids. He was updated bedside. He was discussed with the hospitalist for acute kidney injury in combination with his dizziness and elevated lipase with an improving creatinine. Impression & Plan ZAHRAA (acute kidney injury), Acute pancreatitis, Orthostatic hypotension Discharge Plan Visit Data Chief Complaint: Abnormal Labs/Diagnostic Testing Stated Complaint: SENT BY DOC ABNORMAL LABS ED Provider: Phan Voss Discharge Problem: ZAHRAA (acute kidney injury), Acute pancreatitis, Orthostatic hypotension Patient Disposition: Being Evaluated by Hospitalist Forms Stand Alone Forms: [facility] Prescriptions Prescriptions: No Action allopurinol 300 mg tablet 300 mg PO QAM RF: 0 aspirin [Adult Aspirin Regimen] 81 mg tablet,delayed release (DR/EC) 81 mg PO QAM RF: 0 atorvastatin [Lipitor] 20 mg tablet 20 mg PO QAM RF: 0 cyanocobalamin (vitamin B-12) [Vitamin B-12] 1,000 mcg tablet 1,000 mcg PO QAM RF: 0 furosemide 80 mg tablet 80 mg PO QAM RF: 0 glyburide 5 mg tablet 5 mg PO BIDM RF: 0 liraglutide [Victoza 2-Ismael] 0.6 mg/0.1 mL (18 mg/3 mL) pen injector 1.8 mg SQ QAM RF: 0 magnesium oxide 250 mg tablet 500 mg PO QAM RF: 0 metformin 850 mg tablet 850 mg PO TIDM RF: 0 omega 8-yvr-quk-fish oil 100-160-1,000 mg capsule 1 cap PO QAM RF: 0 repaglinide 1 mg tablet 2 mg PO AC RF: 0 warfarin 5 mg tablet 5 mg PO SUTUWETHFRSA RF: 0 warfarin 7.5 mg tablet 7.5 mg PO MO RF: 0 lisinopril 20 mg tablet 20 mg PO HS RF: 0 spironolactone 25 mg tablet 25 mg PO QAM RF: 0 carvedilol 3.125 mg Tablet 3.125 mg PO BID RF: 0 multivitamin Tablet 1 tab PO QAM RF: 0 dorzolamide-timolol 22.3-6.8 mg/mL drops 1 drp OPB BID RF: 0 amlodipine 5 mg Tablet 2.5 mg PO QAM RF: 0 latanoprost 0.005 % Drops 1 drp OPHTHALMIC (EYE) HS RF: 0 Referrals Referrals: Nancy Ryan DO [Primary Care Provider] - Discharge Problem: Acute pancreatitis Qualifiers: Pancreatitis type: unspecified pancreatitis type Acute pancreatitis complication: unspecified Qualified Code(s): K85.90 - Acute pancreatitis without necrosis or infection, unspecified The scribe's documentation has been prepared under my direction and personally reviewed by me in its entirety. I confirm that the note above accurately reflects all work, treatment, procedures, and medical decision making performed by me.
[2019-06-09 17:36] LABS: INR 2.3 (0.9-1.1); Prothrombin Time 21.9 Seconds (9.0-12.0)
[2019-06-09] MEDS ORDERED: CARBOHYDRATES FOR HYPOGLYCEMIA PO PRN (18:06)
[2019-06-09] MEDS ORDERED: DEXTROSE 50% 50 ML SYRINGE IV PRN (18:06)
[2019-06-09] MEDS ORDERED: ACETAMINOPHEN 325 MG TAB PO PRN (18:06)
[2019-06-09] MEDS ORDERED: ONDANSETRON INJ 2 MG/ML 2 ML VIAL IV PRN (18:06)
[2019-06-09] MEDS ORDERED: POLYETHYLENE (MIRALAX) 17 GM PACK PO PRN (18:06)
[2019-06-09] MEDS ORDERED: GLUCOSE 10 TABS/TUBE PO PRN (18:06)
[2019-06-09] MEDS ORDERED: GLUCOSE 40% GEL 15 GM TUBE PO PRN (18:06)
[2019-06-09] MEDS ORDERED: GLUCAGON FOR INJ 1 MG VIAL SQ PRN (18:06)
--- NOTE | 2019-06-09 18:28 | History & Physical Report ---
Date of Service June 09, 2019 Assessment & Plan (1) Acute kidney injury superimposed on chronic kidney disease: This is a 64-year-old male with a PMH of DM II, CKD III, HLD, right sided heart failure, SPENCER on CPAP, venous stasis dermatitis of bilateral lower extremities, history of DVT on warfarin and other medical problems listed below who presents from clinic with abnormal lab work presents with acute kidney injury superimposed on CKD. -Cr elevated ~1.9-2.4 the last few days. Last Cr from November and was ~1 -In setting of poor PO intake, ? medication induced -Received 2 L NSS in ED -Holding lasix, spironolactone, lisinopril -No evidence of UTI. Renal calculus on CT abd/pelvis but no hydronephrosis or evidence of obstruction -Repeat BMP tomorrow (2) Hyperkalemia: K of 5.5 this evening in setting of ZAHRAA on CKD -EKG with NSR, no T wave changes -Holding lisinopril, spironolactone -Repeat in AM (3) Diabetes mellitus, type II: A1c of 9.1 in May 2019 -SSI while in-patient -BSG AC HS (4) Right-sided heart failure: Appears clinically dry -Holding lasix and spironolactone for now -Reassess volume status tomorrow (5) History of DVT (deep vein thrombosis): Anticoagulated on coumadin. INR of 2.3 -Monitor INR (6) Venous stasis ulcers of both lower extremities: Follows with wound care, was seen today -Wound care consult placed (7) SPENCER on CPAP: CPAP HS DVT Ppx: Coumadin Code status: FULL PCP: Shelby Dispo: Observation telemetry. Plan to return home once medically stable. Patient seen in collaboration with Dr. Benitez. Please see addendum. History of Present Illness Chief Complaint: Abnormal lab work Primary Care Provider: Nancy Ryan, This is a 64-year-old male with a PMH of DM II, CKD III, HLD, right sided heart failure, SPENCER on CPAP, venous stasis dermatitis of bilateral lower extremities, history of DVT on warfarin and other medical problems listed below who presents from clinic with abnormal lab work. A week ago patient was seen in clinic for lightheadedness and near syncope as well as visual changes. Was noted to have positive orthostatic vitals at that time and was told to discontinue amlodipine and increase fluid intake. Lightheadedness and near syncope have completely resolved since then. At the same visit, patient was noted to have an elevated creatinine at 2.3 with most recent creatinine of 1.0 in November 2018. Was instructed to discontinue Jardiance and meloxicam with repeat lab work from yesterday revealing creatinine of 2.1 and K of 6. JUJU Salmeron discussed with Dr. Sims who recommended patient come to ED for further evaluation. Patient given 2 L of normal saline by ED physician. Creatinine of 1.91 today. Lipase noted to be elevated at 1700 but denies any abdominal pain and pancreas u nremarkable on CT abdominal pelvis without contrast. Evidence of 13 mm calculus within the right renal pelvis but no hydronephrosis. Denies any NSAID use. Allergies Allergy/AdvReac Type Severity Reaction Status Date / Time No Known Allergies Allergy Verified 06/09/19 13:03 Home Medications Home Medications Medication Instructions Recorded Confirmed Type allopurinol 300 mg tablet 300 mg PO QAM 04/08/18 06/09/19 History aspirin 81 mg tablet,delayed 81 mg PO QAM 04/08/18 06/09/19 History release atorvastatin 20 mg tablet 20 mg PO QAM 04/08/18 06/09/19 History cyanocobalamin (vit B-12) 1,000 1,000 mcg PO QAM 04/08/18 06/09/19 History mcg tablet furosemide 80 mg tablet 80 mg PO QAM 04/08/18 06/09/19 History glyburide 5 mg tablet 10 mg PO BIDM 04/08/18 06/09/19 History liraglutide 0.6 mg/0.1 mL (18 mg/3 1.8 mg SQ QAM ml 04/08/18 06/09/19 History mL) subcutaneous pen injector magnesium 250 mg (as magnesium 500 mg PO QAM tab 04/08/18 06/09/19 History oxide) tablet metformin 850 mg tablet 850 mg PO TIDM tab 04/08/18 06/09/19 History omega 1-rpi-ebf-fish oil 100 1 cap PO QAM cap 04/08/18 06/09/19 History mg-160 mg-1,000 mg capsule repaglinide 1 mg tablet 2 mg PO AC 04/08/18 06/09/19 History warfarin 5 mg tablet 5 mg PO SUTUWETHFRSA 04/08/18 06/09/19 History warfarin 7.5 mg tablet 7.5 mg PO MO 04/08/18 06/09/19 History latanoprost 1 drp OPHTHALMIC (EYE) HS 09/03/18 06/09/19 History carvedilol 3.125 mg PO BID 01/02/19 06/09/19 History lisinopril 20 mg tablet 20 mg PO HS tab 04/15/19 06/09/19 History spironolactone 25 mg tablet 25 mg PO QAM tab 04/15/19 06/09/19 History dorzolamide-timolol 1 drp OPB BID 06/09/19 06/09/19 History multivitamin 1 tab PO QAM 06/09/19 06/09/19 History Past Med/Surg History Medical History SPENCER on CPAP (Chronic) Diabetes mellitus, type II (Chronic) History of amputation of toe (Chronic) Vitamin B12 deficiency (Chronic) Anemia (Chronic) Chronic anticoagulation (Chronic) Diabetic neuropathy (Chronic) Mild nonproliferative diabetic retinopathy (Chronic) Gout (Chronic) CKD (chronic kidney disease) stage 3, GFR 30-59 ml/min (Chronic) RLS (restless legs syndrome) (Chronic) Right-sided heart failure (Chronic) T2DM (type 2 diabetes mellitus) (Inactive) Diabetes mellitus, type 2 (Chronic) +NEUROPATHY IN B/L FEET. History of DVT (deep vein thrombosis) (Chronic) LEFT LEG IN 1984. OCCURED AFTER INJURY. 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 (Chronic) Family History Other Diabetes Heart disease Hypertension Social History Preferred Language: Tristanian Communication Ability: Effective Ostomy Care Nurse Required: No Beliefs That Will Affect Care: None Current Living Situation: Spouse Other Information That Helps Us Care for You: No Feels Safe at Home: Yes Safety Concerns: Feels Safe At This Time Smoking Status: Never smoker Cigarettes Per Day: 0 ; Do You Dip or Chew Tobacco: No ; Second Hand Exposure: No ; Tobacco Cessation Education Requested by Patient: No Hx Alcohol Use: Yes Alcohol type: beer Hx Substance Use: No Review of Systems Review of Systems: At least ten systems reviewed and negative except as noted in the HPI. Physical Exam Physical Exam: General Appearance: WD/WN, vitals as above, NAD, sitting up in bed, pleasant, morbidly obese Head: normocephalic, atraumatic Eyes: normal inspection, PERRL, conjunctivae normal, anicteric sclerae ENT: external ear and nose normal, oropharynx normal Neck: trachea midline, no thyromegaly normal visual inspection Respiratory: normal respiratory effort, lungs clear to auscultation, no wheeze, rales, rhonchi. Normal insp/exp effort, no accessory muscle use Cardiovascular: regular rate, rhythm, no murmur appreciated, normal peripheral pulses, trace BLE edema. Vessels: no JVD or carotid bruit Chest: normal inspection of chest Abdomen/GI: normal bowel sounds, soft, nontender, no hepatosplenomegaly Extremities/Musculoskelatal: no cyanosis or clubbing, extremities motor str ength 5/5 Neurologic: PERRL, EOMI, accommodation nl, no face palsy, no dysarthria CN's II-XI intact bilaterally and moves all extremities Psychiatric: A+Ox3, euthymic affect Skin: no rashes, normal color, warm/dry + chronic venous stasis wounds on bilateral lower extremity, re-wrapped at wound care today Results & Data Vital Signs (Past 12 Hours) Vital Signs Temp Pulse Pulse Resp BP BP Pulse Ox 06/09/19 18:12 36.5 C 64 18 169/84 H 100 06/09/19 17:27 63 20 145/71 H 100 06/09/19 15:26 63 20 144/69 H 100 06/09/19 15:25 67 16 144/69 H 100 06/09/19 13:46 78 20 137/69 100 06/09/19 11:01 36.2 C L 66 20 168/71 H 98 Laboratory Results Short CBC 06/09/19 Range/Units 12:29 WBC 6.30 (4.8-10.8) K/uL Hgb 10.9 L (14.0-18.0) g/dL Hct 30.2 L (42-52) % Plt Count 131 (130-400) K/uL BMP 06/09/19 12:29 Sodium 135 L Potassium 5.5 H Chloride 105 Carbon Dioxide 21 BUN 64 H Creatinine 1.91 H Glucose 282 H Calcium 9.1 Liver Function 06/09/19 Range/Units 12:29 Total Bilirubin 0.6 (0.2-1) mg/dl AST 23 (15-37) U/L ALT 34 (12-78) U/L Alkaline Phosphatase 68 (45-117) U/L Albumin 3.7 (3.4-5.0) gm/dl Urine 06/09/19 Range/Units 12:29 Urine Color Yellow Urine Appearance Clear (Clear) Urine pH 6.0 (4.5-7.5) Ur Specific [place] 1.017 (1.000-1.030) Urine Protein Negative (Negative) Urine Glucose (UA) 3+ H (Negative) Diagnostic Findings CT abd/pelvis: IMPRESSION: 1. No evidence of bowel obstruction. No evidence of free air 2. Normal appendix. No evidence of acute diverticulitis 3. Cholelithiasis 4. 13 mm calculus within the right renal pelvis Supervising Physician Co-Signing Physician Notes I have seen and examined the patient and have discussed the case with the provider above. I agree with the assessment and plan as stated with the following exceptions. 64 yo M presented after noted decline in renal function on outpatient labwork. Elevated potassium to 6.0 was also noted. He is on Mobic, lisinopril, spironolactone and lasix which have been held and he was given IVF in the ER. Nephrology started him on lisinopril 20mg in Apr 2019, and his spironolactone was decreased to 25mg daily from BID at that same visit. Another recent change was the addition of Jardiance as a possible substitute for metformin, however, he only took two days of this in total. And he reports feeling his symptoms come on prior to starting this medication. So even though ZAHRAA is a listed side effect, it appears the ACEI and spironolactone may have contributed more. Regarding diabetic management, there is significant polypharmacy going on with Victoza, Prandin, Metformin TID, glyburide and now the jardiance. I have recommended strongly that he consider discussing Lantus HS-one shot at night and continuing metformin, stopping all the other agents. A1C is 9.1. Diabetic nurse educator has been consulted to discuss diet/lifestyle mods. Additionally, he had a provoked PE in 1985 and has been on warfarin since that time without another event. He should stop the coumadin, however, I only want to do this with buy-in from his and PCP so he will discuss this with them, also. Physical exam reveals an obese man who is mentating clearly and in no acute distress. Heart and lung exam was normal. Abdomen is soft, nontender and nondistended. He is moving all extremities with ease and is in good spirits. Legs are wrapped from the podiatry office. Agree with plan to hold agents above and cont with IVF overnight. Strongly recommend discussing stopping coumadin with PCP in addition to reducing unnecessary polypharmacy with agents as above. Repeat BMP in am. Emmanuel,
[2019-06-09] MEDS: INSULIN ASPART 100 UNITS/ML 3 ML PEN SC SCH (20:15)
[2019-06-09] MEDS: LATANOPROST 0.005% OP SOLN 2.5 ML BTL OP SCH (20:34)
[2019-06-09] MEDS: CARVEDILOL 3.125 MG TAB PO SCH (20:34)
[2019-06-09] MEDS: DORZOLAMIDE/TIMOLOL 22.3/6.8MG/ML 10 ML BTL OPB SCH (20:35)
[2019-06-09] MEDS: WARFARIN SOD 5 MG TAB PO SCH (20:43)
[2019-06-09] MEDS: SODIUM CHLORIDE 0.9% 1000ML 1,000 ML IV SCH (23:45)
[2019-06-10 07:09] LABS: Hematocrit (blood only) 29.6 % (42-52); Hemoglobin 10.7 g/dL (14.0-18.0); Mean Corpuscular Hemoglobin 31.4 pg (25-34); Mean Corpuscular Hgb Conc 36.1 g/dL (32-36); Mean Corpuscular Volume 86.8 fL (80-100); Mean Platelet Volume 9.4 fL (7.4-10.4); Platelet Count 145 K/uL (130-400); RDW Coefficient of Variation 15.7 % (11.5-14.5); RDW Standard Deviation 49.4 fL (36.4-46.3); Red Blood Count 3.41 M/uL (4.7-6.1); White Blood Count 6.39 K/uL (4.8-10.8)
[2019-06-10 07:42] LABS: Calcium 8.9 mg/dl (8.5-10.1); Creatinine Clr Calc Pharmacy 75.7 ml/min; Est GFR (African American) 53.1; Est GFR (Non-African American) 45.8; Potassium 5.2 mmol/L (3.5-5.1)
[2019-06-10] MEDS: SODIUM CHLORIDE 0.9% 1000ML 1,000 ML IV SCH (08:27)
[2019-06-10] MEDS: CYANOCOBALAMIN 500 MCG TABLET (VITAMIN B-12) PO SCH (08:27)
[2019-06-10] MEDS: CARVEDILOL 3.125 MG TAB PO SCH ×2 (08:27→20:08)
[2019-06-10] MEDS: MULTIVITAMIN TAB PO SCH (08:28)
[2019-06-10] MEDS: ATORVASTATIN 20 MG TAB PO SCH (08:28)
[2019-06-10] MEDS: ASPIRIN 81 MG ECTAB PO SCH (08:28)
[2019-06-10] MEDS: MAGNESIUM OXIDE 400 MG TAB PO SCH (08:28)
[2019-06-10] MEDS: OMEGA-3 (PURIFIED FISH OIL) 1 GM CAP PO SCH (08:28)
[2019-06-10] MEDS: DORZOLAMIDE/TIMOLOL 22.3/6.8MG/ML 10 ML BTL OPB SCH ×2 (08:29→20:08)
[2019-06-10] MEDS: INSULIN ASPART 100 UNITS/ML 3 ML PEN SC SCH ×4 (08:30→20:11)
[2019-06-10] MEDS ORDERED: ALLOPURINOL 300 MG TAB PO SCH (09:00)
--- NOTE | 2019-06-10 16:49 | Hospitalist Progress Note ---
Date of Service June 10, 2019 Assessment & Plan (1) Acute kidney injury superimposed on chronic kidney disease: -Cr elevated ~1.9-2.4 the last few days. Last Cr from November and was ~1 Denies of any diarrhea no nausea vomiting, thinks he has been eating and drinking okay Creatinine mildly improved today -Holding lasix, spironolactone, lisinopril -No evidence of UTI. Renal calculus on CT abd/pelvis but no hydronephrosis or evidence of obstruction -Follows with nephrology Dr. Alejandrina Johansen Nephrology consulted Avoid contrast study NSAIDs (2) Hyperkalemia: Hyperkalemia in his setting of ZAHRAA on CKD stage III, and was on Aldactone and lisinopril as well which has been discontinued since admission -EKG with NSR, no T wave changes -Holding lisinopril, spironolactone as discussed above Low potassium diet Follow BMP Arrhythmia noted on telemetry - (3) Diabetes mellitus, type II: A1c of 9.1 in May 2019 -SSI while in-patient -BSG AC HS (4) Right-sided heart failure: Status remains stable -Holding lasix and spironolactone for now - (5) History of DVT (deep vein thrombosis): Patient had provoked lower extremity DVT in 1985 Recent guideline, anticoagulation is indicated 6-9 months for provoked thromboembolic event 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 should be discontinued if no further episode of DVT or PE Has not had any event of blood clot since 1985 Ordered to discontinue Coumadin,-no indication to continue anticoagulation at this point (6) Venous stasis ulcers of both lower extremities: Follows with wound care [facility] physician group -Wound care consult placed (7) SPENCER on CPAP: CPAP HS DVT Ppx: INR therapeutic, Coumadin discontinued Code status: FULL PCP: Shelby Dispo: Possible discharge home tomorrow Stable to be transferred out of telemetry Subjective Sitting up on chair, finishing dinner, Denies of any shortness of breath no orthopnea no dyspnea on exertion No cough Fever chills Complaint of increased lower extremity swelling, no pain or discomfort Physical Exam Constitutional: WD/WN, vitals as above + obese; no acute distress Eyes: PERRL, conjunctivae normal, anicteric sclerae ENMT: external ear and nose normal, oropharynx normal Neck: trachea midline, no thyromegaly Respiratory: normal respiratory effort, lungs clear to auscultation Cardiovascular: Rate/Rhythm: regular rate and regular rhythm Gastrointestinal (Abdomen): Percussion/Palpation: abdomen soft; abdomen nontender Musculoskeletal: Extremities: + extremities abnormal to inspection (Bilateral lower extremity edema with chronic venous stasis skin change, compression socks present) Neurologic: PERRL, EOMI, accommodation nl, no face palsy, no dysarthria Psychiatric: A+Ox3, euthymic affect Results & Data Vital Signs (Past 12 Hours) Vital Signs Temp Pulse Pulse Resp BP Pulse Ox 06/10/19 15:42 36.6 C 63 15 141/74 H 100 06/10/19 11:35 36.4 C L 67 20 143/80 H 98 06/10/19 11:01 79 06/10/19 07:26 36.7 C 72 18 137/75 99
[2019-06-10] MEDS ORDERED: PHARMACY GLYCEMIC MGMT CONSULT PRN (17:20)
[2019-06-10 17:44] LABS: BUN Creatinine Ratio 30.2 (10-20); Creatinine Clr Calc Pharmacy 86.5 ml/min; Est GFR (African American) 62.5; Est GFR (Non-African American) 53.9; Potassium 5.3 mmol/L (3.5-5.1)
[2019-06-10] MEDS: WARFARIN SOD 5 MG TAB PO SCH (17:50)
[2019-06-10] MEDS ORDERED: INSULIN GLARGINE SOLOSTAR 100 UNITS/ML 3 ML PEN SC SCH (18:00)
[2019-06-10] MEDS: LATANOPROST 0.005% OP SOLN 2.5 ML BTL OP SCH (20:09)
[2019-06-11] MEDS: INSULIN ASPART 100 UNITS/ML 3 ML PEN SC SCH ×4 (00:55→12:47)
--- NOTE | 2019-06-11 06:40 | Nephrology Consultation ---
Date of Consultation June 11, 2019 Assessment & Plan (1) Acute kidney injury superimposed on chronic kidney disease: prerenal nonoliguric ZAHRAA from polypharmacy. baseline creatinine 1.0-1.2; note he has CKD TWO (mild proteinuria ) not CKD3. Peak creatinine was 2.4 prior to admission, improved to 1.3 today w/ fluid resuscitation. He still has mild hyperkalemia even today (see below); has hyperchloremic metabolic acidosis in the wake of NS administration; should resolve w/ time. -he is close to d/c and I am asked for recommendations >> ideally should be maintained given his comorbidities on ACEI (d/t DM, proteinuria, htn) and lasix (d/t chronic venous stasis ulcers) -would stop BB -would start lasix 20-40 mg daily; could take extra 20 mg up to 3 days weekly prn swelling -would not start ACEI until OP f/u labs -weekly bmp until seen in CKD clinic >> f/u in CKD clinic 4-6 wks Present on Admission?: Yes (2) Hyperkalemia: suspect an element of RTA 4 from his dm which predisposes him to high K; more than anything though was medication induced -stop meloxicam/continue to avoid nsaids -lasix low dose as above -hold off on acei for now -d/c spironolactone Present on Admission?: Yes (3) Hypertension: controlled in hospital on low dose BB alone; however w/ no CAD hx and no chronic HF this is not med of choice for him aim for low dose ACEI ultimately and lasix -start w/ lasix as above -d/c or taper BB Present on Admission?: Yes (4) Venous stasis ulcers of both lower extremities: -continue wraps and wound clinic -lasix as above -low Na diet Present on Admission?: Yes (5) Polypharmacy: -thin/wean bp meds as above -defer to hospitalists/PCP to thin/wean DM meds -agree w/ stopping coumadin for one time remote dvt -recommend appt w/in a week of hosptal d/c w/ [facility] for discussion of what meds to take when, what meds are for, review of what he has in his basket where he stores his med bottles and how he actually takes them. Present on Admission?: Yes History of Present Illness Reason for Consultation: zahraa, hyperkalemia Requesting Physician: Dr Alberto Attending Physician: Eli Alberto MD History of Present Illness 64 y/o M whom I'm asked to see for ZAHRAA and hyperkalemia after he was sent to ER for eval of same noted on OP labs on 06/09. He noted in mid May some light headedness while hanging pictures and looking up/over. He waited about a week but then did on 06/03 get PCP clinic eval where he reported non GMG bp sitting 106 systolic, standing 87 systolic; and another set of non GMG BP in 110s both sitting and standing. His SBP in clinic that day was 102. PCP checked labs showing creatinine 2.3, K 5.6. He does NOT have CKD 3; his eGFR is generally > 60 mL/min w/ a baseline creatinine 1.0-1.2. Meloxicam and jardiance were stopped based on these OP labs. but repeat labs 06/08 showed K 6.0, creat 2.4, prompting ER eval. His presenting K in ER was 5.5; his K yesterday PM was 5.3; his presenting creatinine was 1.9; his creat last evening was 1.4. He had received 2L NS in ER and another 2L after admission; he is receiving low dose coreg only w/ no acei, melina antagonist. PMH includes Class 3 obesity, DM 2 on multiple agents mostly oral and w/ early retinopathy, HTN, SPENCER / Pickwickian syndrome on CPAP, chronic lymphedema and venous stasis ulcers for which he follows weekly at wound clinic, remote DVT; also w/ polypharmacy and nonad herence. He established care w/ me in CKD clinic in early April for proteinuric CKD of 300 mg daily or less. He was taking prn meloxicam at that visit; using lasix ad carlton; and was accompanied by his who stated "he (the patient) and I will be the first to say that he can be nonadherent." He told me at that visit that he did not know what most of his meds were for and that he found navigating them confusing at times. He already follows w/ [facility] for DM and coumadin so I reached out to them asking them to work w/ pt on education about his meds and how to take them; does not look like they had a chance to address this at f/u OV in May. At this Apr OV I asked him to minimize meloxicam, take lasix daily not as needed, lower spironolactone from bid to daily, and started lisinopril 10 mg daily. He was to repeat labs after about 10 days but this was not done. Allergies Allergy/AdvReac Type Severity Reaction Status Date / Time No Known Allergies Allergy Verified 06/09/19 13:03 Home Medications Home Medications Medication Instructions Recorded Confirmed Type allopurinol 300 mg tablet 300 mg PO QAM 04/08/18 06/09/19 History aspirin 81 mg tablet,delayed 81 mg PO QAM 04/08/18 06/09/19 History release atorvastatin 20 mg tablet 20 mg PO QAM 04/08/18 06/09/19 History cyanocobalamin (vit B-12) 1,000 1,000 mcg PO QAM 04/08/18 06/09/19 History mcg tablet furosemide 80 mg tablet 80 mg PO QAM 04/08/18 06/09/19 History glyburide 5 mg tablet 10 mg PO BIDM 04/08/18 06/09/19 History liraglutide 0.6 mg/0.1 mL (18 mg/3 1.8 mg SQ QAM ml 04/08/18 06/09/19 History mL) subcutaneous pen injector magnesium 250 mg (as magnesium 500 mg PO QAM tab 04/08/18 06/09/19 History oxide) tablet metformin 850 mg tablet 850 mg PO TIDM tab 04/08/18 06/09/19 History omega 7-gsv-yqh-fish oil 100 1 cap PO QAM cap 04/08/18 06/09/19 History mg-160 mg-1,000 mg capsule repaglinide 1 mg tablet 2 mg PO AC 04/08/18 06/09/19 History warfarin 5 mg tablet 5 mg PO SUTUWETHFRSA 04/08/18 06/09/19 History warfarin 7.5 mg tablet 7.5 mg PO MO 04/08/18 06/09/19 History latanoprost 1 drp OPHTHALMIC (EYE) HS 09/03/18 06/09/19 History carvedilol 3.125 mg PO BID 01/02/19 06/09/19 History lisinopril 20 mg tablet 20 mg PO HS tab 04/15/19 06/09/19 History spironolactone 25 mg tablet 25 mg PO QAM tab 04/15/19 06/09/19 History dorzolamide-timolol 1 drp OPB BID 06/09/19 06/09/19 History multivitamin 1 tab PO QAM 06/09/19 06/09/19 History Patient History Medical History SPENCER on CPAP (Chronic) Diabetes mellitus, type II (Chronic) History of amputation of toe (Chronic) Vitamin B12 deficiency (Chronic) Anemia (Chronic) Chronic anticoagulation (Chronic) Diabetic neuropathy (Chronic) Mild nonproliferative diabetic retinopathy (Chronic) Gout (Chronic) RLS (restless legs syndrome) (Chronic) CKD (chronic kidney disease) stage 3, GFR 30-59 ml/min (Chronic) Right-sided heart failure (Chronic) T2DM (type 2 diabetes mellitus) (Inactive) Diabetes mellitus, type 2 (Chronic) +NEUROPATHY IN B/L FEET. History of DVT (deep vein thrombosis) (Chronic) LEFT LEG IN 1984. OCCURED AFTER INJURY. 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 (Chronic) Family History Other Diabetes Heart disease Hypertension Social History Preferred Language: Nepali Communication Ability: Effective Manager Completions Required: No Beliefs That Will Affect Care: None Current Living Situation: Spouse Other Information That Helps Us Care for You: No Feels Safe at Home: Yes Safety Concerns: Feels Safe At This Time Smoking Status: Never smoker Cigarettes Per Day: 0 ; Do You Dip or Chew Tobacco: No ; Second Hand Exposure: No ; Tobacco Cessation Education Requested by Patient: No Hx Alcohol Use: Yes Alcohol type: beer Hx Substance Use: No Review of Systems Review of Systems: All systems reviewed & are unremarkable except as noted in HPI & below Constitutional: + weakness (states "I feel 100% better than I did 10 days ago") Eyes: as per Subjective / HPI; no worsening vision Ear, Nose, Mouth, Throat: no dry mouth Respiratory: + dyspnea on exertion (at baseline) using his own cpap/tolerating Cardiovascular: + edema (chronic); no chest pain and no palpitations Gastrointestinal: no abdominal pain, no vomiting, no change in bowel habits and no diarrhea/loose stools Genitourinary: + urinary frequency; no dysuria and no hematuria Musculoskeletal: + swelling, + stiffness and + myalgia; no muscle weakness Integumentary: + non-healing lesions Neurologic: as per Subjective / HPI, + unsteadiness (improved from days ago) and + generalized weakness (improved from days ago) Psychiatric: no behavioral changes Endocrine: + fatigue Hematologic / Lymphatic: + easy bleeding Physical Exam Constitutional: well developed, + morbidly obese and cooperative sitting on side of bed on RA Eyes: EOM intact bilaterally ENMT: Ears: no external ear abnormality Nose: no external nose abnormality Mouth: + dry oral mucous membranes Neck: no nuchal rigidity Respiratory: normal respiratory effort Auscultation: lungs clear to auscultation bilaterally and + diminished lung sounds Cardiovascular: Rate/Rhythm: regular rate and regular rhythm Extremities: + edema (difficult to assess w/ leg wraps present>trace - 1+ proximal BLE) Gastrointestinal (Abdomen): Inspection/Auscultation: normal bowel sounds Percussion/Palpation: abdomen soft; abdomen nontender Musculoskeletal: Extremities: strength 5/5 throughout Skin: no rashes, warm and dry + ulcer (ulcers wrapped/ not examined) Neurologic: cline, fluent speech, no tremor Psychiatric: A+Ox3, euthymic affect Genitourinary: no guillen Results & Data Vital Signs (Past 12 Hours) Vital Signs Temp Pulse Resp BP Pulse Ox 06/10/19 23:01 36.8 C 60 20 144/77 H 100 06/10/19 20:06 36.8 C 73 16 136/79 100 06/10/19 18:58 37.0 C 75 18 136/65 97 Laboratory Results 06/11/19 06:54 06/11/19 06:[address] abd/pelvis non con 1. No evidence of bowel obstruction. No evidence of free air 2. Normal appendix. No evidence of acute diverticulitis 3. Cholelithiasis 4. 13 mm calculus within the right renal pelvis (1) Hypertension Hypertension type: essential hypertension Qualified Code(s): I10 - Essential (primary) hypertension
[2019-06-11 07:24] LABS: Hematocrit (blood only) 29.5 % (42-52); Hemoglobin 10.4 g/dL (14.0-18.0); Mean Corpuscular Hgb Conc 35.3 g/dL (32-36); Mean Corpuscular Volume 88.1 fL (80-100); Mean Platelet Volume 9.1 fL (7.4-10.4); Platelet Count 116 K/uL (130-400); RDW Coefficient of Variation 15.8 % (11.5-14.5); RDW Standard Deviation 50.2 fL (36.4-46.3); Red Blood Count 3.35 M/uL (4.7-6.1); White Blood Count 5.07 K/uL (4.8-10.8)
[2019-06-11 07:32] LABS: INR 1.9 (0.9-1.1); Prothrombin Time 18.7 Seconds (9.0-12.0)
[2019-06-11 07:51] LABS: BUN Creatinine Ratio 29.4 (10-20); Calcium 8.8 mg/dl (8.5-10.1); Creatinine Clr Calc Pharmacy 92.5 ml/min; Est GFR (African American) 67.8; Est GFR (Non-African American) 58.5; Potassium 4.7 mmol/L (3.5-5.1)
[2019-06-11] MEDS: DORZOLAMIDE/TIMOLOL 22.3/6.8MG/ML 10 ML BTL OPB SCH (08:24)
[2019-06-11] MEDS: CARVEDILOL 3.125 MG TAB PO SCH (08:25)
[2019-06-11] MEDS: ATORVASTATIN 20 MG TAB PO SCH (08:26)
[2019-06-11] MEDS: ASPIRIN 81 MG ECTAB PO SCH (08:26)
[2019-06-11] MEDS: CYANOCOBALAMIN 500 MCG TABLET (VITAMIN B-12) PO SCH (08:27)
[2019-06-11] MEDS: OMEGA-3 (PURIFIED FISH OIL) 1 GM CAP PO SCH (08:27)
[2019-06-11] MEDS: MAGNESIUM OXIDE 400 MG TAB PO SCH (08:27)
[2019-06-11] MEDS: MULTIVITAMIN TAB PO SCH (08:27)
--- NOTE | 2019-06-11 13:16 | Discharge Summary ---
Date of Service June 11, 2019 Admission HPI Per Admitting Provider This is a 64-year-old male with a PMH of DM II, CKD III, HLD, right sided heart failure, SPENCER on CPAP, venous stasis dermatitis of bilateral lower extremities, history of DVT on warfarin and other medical problems listed below who presents from clinic with abnormal lab work. A week ago patient was seen in clinic for lightheadedness and near syncope as well as visual changes. Was noted to have positive orthostatic vitals at that time and was told to discontinue amlodipine and increase fluid intake. Lightheadedness and near syncope have completely resolved since then. At the same visit, patient was noted to have an elevated creatinine at 2.3 with most recent creatinine of 1.0 in November 2018. Was instructed to discontinue Jardiance and meloxicam with repeat lab work from yesterday revealing creatinine of 2.1 and K of 6. JUJU Salmeron discussed with Dr. Sims who recommended patient come to ED for further evaluation. Patient given 2 L of normal saline by ED physician. Creatinine of 1.91 today. Lipase noted to be elevated at 1700 but denies any abdominal pain and pancreas unremarkable on CT abdominal pelvis without contrast. Evidence of 13 mm calculus within the right renal pelvis but no hydronephrosis. Denies any NSAID use. Principal Diagnosis Acute renal failure on CKD stage III: Resolved Hyperkalemia: Resolved TYPE 2 DM HYPERTENSION Discharge Exam Constitutional WD/WN, vitals as above + obese; no acute distress Eyes PERRL, conjunctivae normal, anicteric sclerae ENMT external ear and nose normal, oropharynx normal Neck trachea midline, no thyromegaly Respiratory normal respiratory effort, lungs clear to auscultation Cardiovascular Rate/Rhythm: regular rate and regular rhythm Gastrointestinal (Abdomen) Percussion/Palpation: abdomen soft; abdomen nontender Musculoskeletal Extremities: + extremities abnormal to inspection (Bilateral lower extremity edema with chronic venous stasis skin change, compression socks present) Neurologic PERRL, EOMI, accommodation nl, no face palsy, no dysarthria Psychiatric A+Ox3, euthymic affect Discharge Data Allergies Allergy/AdvReac Type Severity Reaction Status Date / Time No Known Allergies Allergy Verified 06/09/19 13:03 Consultations 06/09/19 14:53 ED Decision to Admit Stat 06/10/19 16:53 Consult Nephrology Routine Ordered Studies 06/09/19 14:53 CT abd pelvis wo con Stat Hospital Course (1) Acute kidney injury superimposed on chronic kidney disease: Resolved: Creatinine improved to 1.3 with resolution of hyperkalemia -Cr elevated ~1.9-2.4 the last few days. Last Cr from November and was ~1 Denies of any diarrhea no nausea vomiting, thinks he has been eating and drinking okay lasix, spironolactone, lisinopril was kept on hold -No evidence of UTI. Renal calculus on CT abd/pelvis but no hydronephrosis or evidence of obstruction -Follows with nephrology Dr. Alejandrina Johansen Nephrology consulted-appreciate input Nephrology recommendation: DC Aldactone, continue to hold RIKI inhibitor until outpatient follow-up labs shows improvement/stable renal function and potassium level Patient's Lasix dose reduced to 40 mg daily,(was on 80 mg daily) patient can take 20 mg extra dose up to 3 days a week as needed for increased lower extremity swelling Repeat lab work, BMP in 1 week Follow-up with Dr. Johansen at CKD clinic in 4-6 weeks Patient is instructed to avoid NSAIDs: DC meloxicam, no Aleve/Advil/Motrin/naproxen/ibuprofen/high-dose aspirin (2) Hyperkalemia: Resolved: Potassium level 4.7 Order to DC Aldactone, continue to hold RIKI inhibitor to outpatient blood work as evaluated by family physician/nephrology Presented hyperkalemia in his setting of ZAHRAA on CKD stage III, and was on Aldactone and lisinopril as well which has been discontinued since admission -EKG with NSR, no T wave changes Patient is instructed for low potassium diet Prescription given for lab work: BMP in the next clinic visit - (3) Diabetes mellitus, type II: A1c of 9.1 in May 2019 Very poorly controlled On multiple anti-diabetic meds as outpatient: Glyburide 10 mg PO BID + Prandin 2 mg AC + Jaridance 10 mg PO daily +Victoza 1.8 mg SQ daily + metformin 850 mg Po TID Patient input from pharmacy for glycemic management Patient is discharged on new antidiabetic regimen: Lantus or Basaglar 20 units SQ daily-started noon, patient was given insulin administration teaching, comfortable with self insulin administration, Appreciate input from simulation educator will continue Victoza 1.8 units SQ daily (recommend to continue due to cardiovascular benefits) Will continue metformin 850 mg PO TIDM d/c glyburide, Prandin, and Jardiance Patient will have continued follow-up with [facility] diabetic clinic at [facility] (4) Right-sided heart failure: Status remains stable -Aldactone discontinued, will kept on hold, Lasix dose adjusted as above - (5) History of DVT (deep vein thrombosis): Patient had provoked lower extremity DVT in 1985 Recent guideline, anticoagulation is indicated 6-9 months for provoked thromboembolic event 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 should be discontinued if no further episode of DVT or PE Has not had any event of blood clot since 1985 Discontinued-no indication to continue anticoagulation at this point (6) Venous stasis ulcers of both lower extremities: Continue outpatient follow-up with wound care [facility] physician group -Wound care consult placed (7) SPENCER on CPAP: CPAP HS Code status: FULL PCP: Dr. Ryan Dispo: Stable to be discharged home today Total Time Total Time Spent Total Time Spent (In Minutes): approximately 50 minutes Discharge Plan Discharge Items Patient Disposition: Home - Self-Care Reason For Visit: ZAHRAA,HYPERKALEMIA Discharge Diagnosis: Acute renal failure on CKD stage III: Resolved Hyperkalemia: Resolved TYPE 2 DM HYPERTENSION Activity: Resume your previous activity Non-emergency contact: Primary Care Provider Call non-emergency contact if: you have any medication questions Follow-up/Referrals: Alejandrina Sims MD, PhD [Physician] - (Follow-up with Dr. Alejandrina Johansen in 46 weeks) Nancy Ryan DO [Primary Care Provider] - 06/16/19 10:55 am Diet: Heart Healthy and Low Potassium (2gm) Ambulatory Orders: Basic Metabolic Panel (Routine) Timeframe: 1 Week Location: Determined by Patient Ordered By: Eli English Attending Provider Instructions: Hospital follow-up:WITH DR RYAN ON 06/16/2019 @ 10: 55 AM STOP TAKING COUMADIN : You do not have any indication to continue anticoagulation for lower extremity DVT happened in remote past (in 1985 ) Lab work: Basic metabolic panel in 1 week(with next physician visit on 06/16/2019) Blood pressure medication change: 1. Stop taking Coreg 3.125 mg 1 tablet twice daily- 2. Do not take lisinopril -continue your next lab work 3. Stop taking Aldactone 4. Lasix dose reduced to 40 mg daily,(previous dose was 80 mg daily) can take extra 20 mg(1/2 tablet as needed for lower extremity swelling, do not take more than 3 days a week) Change in diabetes meds: 1. Stop taking glyburide 2. Stop taking Prandin 3. Stop taking Jurdiance CONTINUE TAKING : METFORMIN VICTOZA NEW DIABETIC MEDICATION/INSULIN BASAGLAR 20 UNITS IN MORNING , BEFORE BREAKFAST PLEASE CHECK BLOOD GLUCOSE BEFORE GIVING INSULIN KEEP LOG AND BRING IN TO DIABETIC CLINIC Do not take: Meloxicam, Advil/Aleve/Motrin/ibuprofen/naproxen/high-dose aspirin- THESE ARE THE GROUP OF DRUG CALLED NSAID;S -WHICH WILL CAUSE FURTHER DAMAGE TO YOUR KIDNEY INCREASE BLOOD PRESSURE Please ask pharmacy if you have any concern about [id number] pain medication for the component Please limit salt intake in your diet will Improve your blood pressure control Improved lower extremity swelling Pending Studies at Discharge: Yes Studies:: BASIC METABOLIC PANEL IN 1 WEEK Stand-Alone Forms: My [facility] [place] [address] [employer], Smoking Cessation Medications and DC Order Prescriptions: New furosemide [Lasix] 40 mg tablet 40 mg PO QAM Qty: 30 RF: 3 Basaglar KwikPen U-100 Insulin 100 unit/mL (3 mL) insulin pen 20 units SQ DAILY Qty: 15 RF: 3 Victoza 2-Ismael 0.6 mg/0.1 mL (18 mg/3 mL) pen injector 0.6 mg SQ DAILY Qty: 6 RF: 0 Continued allopurinol 300 mg tablet 300 mg PO QAM RF: 0 aspirin [Adult Aspirin Regimen] 81 mg tablet,delayed release (DR/EC) 81 mg PO QAM RF: 0 atorvastatin [Lipitor] 20 mg tablet 20 mg PO QAM RF: 0 cyanocobalamin (vitamin B-12) [Vitamin B-12] 1,000 mcg tablet 1,000 mcg PO QAM RF: 0 metformin 850 mg tablet 850 mg PO TIDM RF: 0 omega 0-adl-yzi-fish oil 100-160-1,000 mg capsule 1 cap PO QAM RF: 0 multivitamin Tablet 1 tab PO QAM RF: 0 dorzolamide-timolol 22.3-6.8 mg/mL drops 1 drp OPB BID RF: 0 latanoprost 0.005 % Drops 1 drp OPHTHALMIC (EYE) HS RF: 0 Discontinued furosemide 80 mg tablet 80 mg PO QAM RF: 0 glyburide 5 mg tablet 10 mg PO BIDM RF: 0 liraglutide [Victoza 2-Ismael] 0.6 mg/0.1 mL (18 mg/3 mL) pen injector 1.8 mg SQ QAM RF: 0 magnesium oxide 250 mg tablet 500 mg PO QAM RF: 0 repaglinide 1 mg tablet 2 mg PO AC RF: 0 warfarin 5 mg tablet 5 mg PO SUTUWETHFRSA RF: 0 warfarin 7.5 mg tablet 7.5 mg PO MO RF: 0 lisinopril 20 mg tablet 20 mg PO HS RF: 0 spironolactone 25 mg tablet 25 mg PO QAM RF: 0 carvedilol 3.125 mg Tablet 3.125 mg PO BID RF: 0 Discharge Orders: Discharge Order (Routine); Ordered 06/11/19 Ordered By: Eli Steevnson/Other Patient Handouts: A1C, Diabetes Prison Complications, Diabetes Resources, Diabetes Type 2 Coping, Diabetes Healthy Meals, Diabetes Carbs, Diabetes Exercise Benefits, Diabetes Exercise Get Started, Diabetes Activity Tips, Diabetes Living Life, Diet Low Potassium Dc Admission Data Admit Date/Time: 06/09/19 16:37 Attending Provider: Eli Alberto Admit Provider: Shey Benitez Primary Care Provider: Nancy Ryan Other Providers: Shey Benitez ; Alejandrina Sims ; Jorge Luis Key Elissa R. ; Prabha Weinstein ; Gee Kendall Other Interventions: Discharge Summary Assessment (RN) Last Done: 06/11/19 13:20 DC Date/Time DO NOT enter until pt leaves facility: 06/11/19 14:23
--- NOTE | 2019-06-11 13:36 | Pharmacy Report ---
Glycemic Control Consultation - Date of Service June 11, 2019 - Scope Scope: Glycemic Pharmacist consulted by Dr Alberto on 06/10/19 for glycemic control and to write orders per [facility] inpatient glycemic control protocol - Objective Weight: 161.2 kg Accuchecks BSG (last 24hrs): 06/10/19 06/10/19 06/10/19 16:15 17:09 20:10 Glucose 227 H POC Glucose 250 H 248 H 06/11/19 06/11/19 06/11/19 00:45 04:44 06:54 Glucose 107 H POC Glucose 138 H 103 H 06/11/19 06/11/19 07:32 11:24 Glucose POC Glucose 145 H 260 H Laboratory Data (last 24hrs): 06/10/19 06/11/19 17:09 06:54 Potassium 5.3 H 4.7 Carbon Dioxide 20 L 16 L Anion Gap 6.0 9.0 Creatinine 1.39 1.30 Est Cr Clr Drug Dosing 86.5 92.5 - Recent Pertinent Medications Outpatient Anti-diabetic Regimen: * Glyburide 10 mg PO BID + Prandin 2 mg AC + Jaridance 10 mg PO daily +Victoza 1.8 mg SQ daily + metformin 850 mg Po TID * A1c = 9.1 % 05/31/19 The patient is currently receiving: * Basal insulin: Lantus 30 units x1 * Correctional Insulin: Novolog Correction per scale ACHS Goal Range: Low 120 mg/dL - High 160 mg/dL Correction Factor: 12 mg/dL/unit * Prandial insulin: Per carb ratio of 1 unit per 4 grams CHO consumed * Oral Agents: Risk Factors for Insulin Resistance: * Diet: T2DM - Assessment & Plan Assessment & Plan: ASSESSMENT: * Mr Wu was admitted on 06/09/19 with acute kidney injury. He is on a complex regimen at home for poorly controlled T2DM - he sees Ralf at the diabetes [place] clinic. * Patient received 30 units yesterday with fasting blood sugar of 107 mg/dL today. He receivd 90 total units of insulin yesterday with blood sugars between 138-289 mg/dL. Loosened Novolog in the morning since patient's blood sugar trended downwards significantly. At lunch blood sugar significantly elevated so tightened carbohydrate ratio. * Hold oral agents as these are not recommended during hospitalization. * Spoke with patient today - recommend discharge on Victoza, metformin, and Lantus or basaglar (whichever covered). PLAN FOR INPATIENT GLYCEMIC CONTROL: * Holding outpatient oral diabetes medications * Basal insulin * Lantus 25 units SQ daily * Bolus insulin * NovoLog per scale ACHS or Q6hrs while NPO * Goal Range: Low 110 mg/dL - High 140 mg/dL * Correction Factor: 15 mg/dL/unit * Nutritional / Prandial insulin per carb ratio of 1 unit per 4 grams CHO consumed OUTPATIENT RECOMMENDATIONS * Lantus or Basaglar 20 units SQ daily * Victoza 1.8 units SQ daily (recommend to continue due to cardiovascular benefits) * metformin 850 mg PO TIDM * Patient will follow-up with Ralf himself at [facility] clinic via [facility] * d/c glyburide, Prandin, and Jardiance Thank you.
[2019-06-11] MEDS ORDERED: INSULIN GLARGINE SOLOSTAR 100 UNITS/ML 3 ML PEN SC ONE (14:00)
[2019-06-15] MEDS ORDERED: WARFARIN SOD 7.5 MG TAB PO SCH (16:00)
== END 2019-06-11 14:23 | disposition home or self-care (01) ==
LOC: ED 11:00 → 2S 11:00 → SUATTDRO 16:37 → 2S 17:47 → 2W 06-10 16:52

== ENCOUNTER 2023-11-13 10:37 | Inpatient (IN) ==
--- NOTE | 2023-11-13 11:29 | Emergency Department Note ---
Impression & Plan Generalized weakness, Fall, Acute pain of right hip, Anemia, CKD (chronic kidney disease), Acute UTI (urinary tract infection), Chronic ulcer of lower extremity, Compression fracture of lumbar vertebra ED Provider Note ED Provider Note NAME: TRI YIP AGE:68 SEX: Male : 1955 ARRIVES VIA: EMS INFORMANT: Patient ED PROVIDER(s): Kat Chu DO CHIEF COMPLAINT: Fall, weakness HPI: This is a 68-year-old male presents emergency department due to a fall this morning. Patient states at 3 AM he got up out of the recliner where he sleeps to use the bathroom and felt very weak and subsequently fell. He states he laid there until the morning when his woke up and found him on the floor and called 911. He states he has had this happen before. He denies any recent change in medications or diet. He states he did not have much to eat or drink yesterday and thinks that could have contributed. Patient does have ongoing issues with bilateral lower extremity wounds. He states he no longer sees wound care but his "takes care of them". He denies any fevers, headaches, dizziness, chest pain, neck or back pain, or shortness of breath. He states he did not strike his head when he fell and he did not lose consciousness. He denies any use of antiplatelet or anticoagulation medication. Patient states he has recently had burning with urination although suspects that this was related to dehydration. PAST MEDICAL HISTORY:See Below PAST SURGICAL HISTORY:See Below FAMILY HISTORY:See Below SOCIAL HISTORY:See Below HOME MEDICATIONS:See Below ALLERGIES:See Below VITALS:See Below PHYSICAL EXAMINATION: GENERAL: alert, well appearing, well nourished, no distress, non-toxic EYE EXAM: normal conjunctiva, PERRL and EOM's grossly intact OROPHARYNX: no exudate, no erythema, lips, buccal mucosa, and tongue normal and mucous membranes are moist NECK: supple, no nuchal rigidity, no adenopathy, non-tender LUNGS: Clear to auscultation. Normal chest wall mechanics, no w/r/r HEART: no murmurs, S1 normal and S2 normal ABDOMEN: abdomen soft, non-tender, normo-active bowel sounds, no masses, no rebound or guarding. BACK: Back is symmetrical on inspection and there is no deformity, no midline tenderness, no CVA tenderness. SKIN: no rashes, petechiae, orbruising UPPER EXTREMITIES: upper extremities are grossly normal. FROM, nml pulses b/l. LOWER EXTREMITIES: FROM, nml pulses b/l. 2+ bilateral pitting edema, Multiple wounds in various stages noted bilaterally some with covering adherent dressings and scant discharge, there is surrounding erythema distally, no crepitus; deformity noted just inferior to the right knee which patient states has been there "forever", it is nontender to palpation, patient denies any trauma or injury NEURO EXAM: Normal sensorium, cranial nerves II-XII grossly intact, normal speech, no facial droop,nogross weakness of arms, no gross weakness of legs. Gross sensation intact. No ataxia. Vital Signs: reviewed and remarkable Differential Diagnosis: dehydration, stroke, anemia, hypoglycemia, hyponatremia, hypernatremia, urinary tract infection, pneumonia, bronchitis, sepsis, gastroenteritis, additional abdominal pathology, metabolic abnormalities, as well as others were considered MEDICAL DECISION MAKING: This is a 68-year-old male presents emergency department after a fall at home. Patient appeared dehydrated clinically, had no complaints for pain or injury, and is not anticoagulated. He was hemodynamically stable on arrival. Labs and cultures drawn and sent, IV established, EKG and x-rays performed at bedside interpreted by me and patient monitored on telemetry. He was sent for CT head additionally. He was started on IV fluids given the clinical appearance of dehydration. Patient noted to have significant anemia, worse compared to his baseline anemia and so we discussed blood transfusion at bedside. Patient and verbalized understanding and were in agreement. Consent form signed at bedside and 1 unit of PRBCs ordered. Patient had been given 2 g of cefepime IV as a precaution due to concern for possible evolving infection. While he had no leukocytosis, patient had an elevated procalcitonin, and I feels that risk of infection. Patient and maintain that lower extremity wounds appeared stable. I do suspect his lower extremity wounds could still be contributing to infection also. It did take some time for patient to produce a urine specimen to send for analysis. I suspect this was due to his dehydration. He was cautiously rehydrated at bedside but was not given large fluid boluses due to concern for his history of heart failure and CKD. Patient's creatinine was elevated compared to his prior baseline. He was also noted to have hypomagnesemia and was given IV magnesium repletion at bedside additionally. Patient did have an episode of vomiting here while awaiting initiation of blood transfusion. He was sent for CT of the abdomen pelvis additionally. He was given IV Protonix, as he had recently stopped his omeprazole and we discussed concern for risk of recurrent GI bleed given new worse anemia. Patient noted to have acute versus subacute L2 compression fracture, no other acute traumatic findings. He was also noted to have mild right perinephric stranding, concerning for evolving infection. No other acute pathology noted. I do not suspect nec fasc in the lower extremities. Patient was noted to be hyperglycemic although no evidence of DKA. Patient is a known diabetic. Patient and updated several times on results and plan. They verbalized understanding. Case discussed with hospitalist team. Consultation(s): 1445: Discussed with [facility] hospitalist team, for additional evaluation and management. UA and CT A/P still pending at this time. ER Treatment Provided: See below 1400: Blood consent signed at bedside. Patient and who is now present updated on results thus far. states he does have a prior history of an upper GI bleed and did undergo endoscopy. He was taking omeprazole until about 2 weeks ago when he felt he was having side effects from it so stopped it. She states he did not alert his physician regarding this and has a history of noncompliance. She states he does get injections due to his history of chronic anemia. Diagnostics Interpreted By Me: -ECG: Sinus tachycardia at 101, first-degree AV block, rightward axis, normal intervals, nonspecific ST/T wave changes, baseline artifact noted -Cardiac Monitoring: An order was placed for continuous cardiac monitoring. The monitor shows a rate of 92 with normal sinus rhythm. -Laboratory studies: As stated above and show below. -Imaging studies: X-ray Chest: A single view study of the chest was reviewed and was negative for cardiomegaly, focal infiltrate, effusion, pulmonary edema, or wide mediastinum. Triage Nursing Note Reviewed Prior/Outside Records Reviewed -prior discharge summary from [place] reviewed Critical Care: Critical care of 42 min performed to assess and manage high likelihood of life- threatening anemia, involving labs and imaging performed with assessment to evaluate anemia diagnosis with frequent reassessment. This time includes bedside time, treatment discussions with patient/family/consultants, documentation time and excludes procedure time. Past Med/Surg History Medical History (Updated 11/13/23 @ 20:57 by Kat Chu, ) History of colon polyps BENIGN Carpal tunnel syndrome of right wrist Benign cyst of kidney FATTY TISSUE GERD (gastroesophageal reflux disease) Hx of gout Diabetes mellitus, type II Vitamin B12 deficiency PT NOT SURE Anemia Chronic anticoagulation Diabetic neuropathy Mild nonproliferative diabetic retinopathy CKD (chronic kidney disease) stage 3, GFR 30-59 ml/min RLS (restless legs syndrome) Sleep apnea CPAP History of DVT (deep vein thrombosis) LEFT LEG IN 1980. OCCURED AFTER INJURY. >REASON FOR COUMADIN Hypertension Hyperlipidemia Chronic venous insufficiency UNNA BOOTS B/L - CHANGED ONCE A WEEK SOME OPEN SORES ON LEGS/WOUND CLINIC [place] Surgical History History of endoscopy Family history of reaction to anesthesia MOTHER>SLOW TO WAKE UP [place] teeth removed 1 History of repair of retinal tear by laser photocoagulation History of cataract surgery RT/LEFT History of amputation of toe SMALL RT TOE History of colonoscopy Family History Mother Family history of diabetes mellitus Father Family history of diabetes mellitus Other Diabetes Heart disease Hypertension Social History Smoking Status: Never smoker Second Hand Exposure: No; Do You Dip or Chew Tobacco: No; Hx Alcohol Use: Yes Alcohol type: beer Hx Substance Use: No Preferred Language: Chinese Communication Ability: Effective Head Tennis Professional Required: No Beliefs That Will Affect Care: None Current Living Situation: Spouse Feels Safe at Home: Yes Assistive Devices: CPAP, Glasses and Other Allergies Allergies Allergy/AdvReac Type Severity Reaction Status Date / Time No Known Allergies Allergy Verified 11/13/23 12:46 Home Meds Home Medications Medication Instructions Recorded Confirmed aspirin 81 mg tablet,delayed 81 mg PO QAM 04/08/18 11/13/23 release (Adult Aspirin Regimen) atorvastatin 20 mg tablet (Lipitor) 20 mg PO QAM 04/08/18 11/13/23 cyanocobalamin (vitamin B-12) 1,000 mcg PO QAM 04/08/18 11/13/23 1,000 mcg tablet (Vitamin B-12) omega 4-ueu-mkl-fish oil 100 1 cap PO QAM 04/08/18 11/13/23 mg-160 mg-1,000 mg capsule dorzolamide 22.3 mg-timolol 6.8 1 drp OPB BID 06/09/19 11/13/23 mg/mL eye drops multivitamin 1 tab PO QAM 06/09/19 11/13/23 ascorbic acid (vitamin C) 1,000 mg 1 g PO QAM 06/09/21 11/13/23 tablet carvedilol 6.25 mg tablet 6.25 mg PO BID 06/09/21 11/13/23 insulin glargine 100 unit/mL (3 20 unit subcut QAM 06/09/21 11/13/23 mL) subcutaneous pen (Basaglar CesarPen U-100 Insulin) metformin 500 mg tablet 500 mg PO BID 06/09/21 11/13/23 allopurinol 300 mg tablet See Rx Instructions .Route .COMPLEX 06/28/21 11/13/23 allopurinol 100 mg tablet See Rx Instructions .Route .COMPLEX 01/29/23 11/13/23 ammonium lactate 12 % topical cream 1 applic topical UD PRN Skin 01/29/23 11/13/23 Irritation netarsudil 0.02 % eye drops 1 drp OPL HS 01/29/23 11/13/23 (Rhopressa) semaglutide 2 mg/dose (8 mg/3 mL) 2 mg subcut WK 01/29/23 11/13/23 subcutaneous pen injector (Ozempic) epoetin judith 20,000 unit/2 mL 20,000 unit subcut UD 11/13/23 11/13/23 injection solution (Procrit) losartan 25 mg tablet 25 mg PO QAM 11/13/23 11/13/23 torsemide 20 mg tablet 20 mg PO QAM 11/13/23 11/13/23 Results & Data (ED) Vital Signs Vital Signs - 24 hr 11/13/23 10:09 11/13/23 10:31 11/13/23 11:20 Temperature 38.0 C H Temperature Source Oral Pulse Rate 100 H Pulse Rate from SpO2 Sensor Respiratory Rate 16 Respiratory Effort / Characteristics Non-Labored Spontaneous Non-Labored Spontaneous Respiratory Depth Normal Normal Blood Pressure 156/81 H Blood Pressure Mean 106 Pulse Oximetry 98 96 Oxygen Delivery Method Room Air Room Air Sepsis New/Unexplained Change in Mental Status No Sepsis Action Taken by Nursing No Action Required 11/13/23 11:20 11/13/23 11:23 11/13/23 11:39 Temperature Temperature Source Pulse Rate 96 H 100 H Pulse Rate from SpO2 Sensor 97 H Respiratory Rate 26 H 23 Respiratory Effort / Characteristics Respiratory Depth Normal Blood Pressure Blood Pressure Mean Pulse Oximetry 96 Oxygen Delivery Method Sepsis New/Unexplained Change in Mental Status Sepsis Action Taken by Nursing 11/13/23 11:40 11/13/23 11:50 11/13/23 12:00 Temperature Temperature Source Pulse Rate 100 H 99 H Pulse Rate from SpO2 Sensor Respiratory Rate 19 33 H 27 H Respiratory Effort / Characteristics Respiratory Depth Blood Pressure Blood Pressure Mean Pulse Oximetry Oxygen Delivery Method Sepsis New/Unexplained Change in Mental Status Sepsis Action Taken by Nursing 11/13/23 12:10 11/13/23 12:20 11/13/23 12:24 Temperature Temperature Source Pulse Rate 99 H 120 H 99 H Pulse Rate from SpO2 Sensor 93 H Respiratory Rate 31 H 23 Respiratory Effort / Characteristics Respiratory Depth Blood Pressure Blood Pressure Mean Pulse Oximetry 98 Oxygen Delivery Method Sepsis New/Unexplained Change in Mental Status Sepsis Action Taken by Nursing 11/13/23 12:30 11/13/23 12:40 11/13/23 12:50 Temperature Temperature Source Pulse Rate 106 H 100 H 102 H Pulse Rate from SpO2 Sensor 102 H Respiratory Rate 29 H 32 H 27 H Respiratory Effort / Characteristics Respiratory Depth Blood Pressure Blood Pressure Mean Pulse Oximetry 98 Oxygen Delivery Method Sepsis New/Unexplained Change in Mental Status Sepsis Action Taken by Nursing 11/13/23 12:51 11/13/23 13:00 11/13/23 13:10 Temperature Temperature Source Pulse Rate 102 H 107 H 108 H Pulse Rate from SpO2 Sensor 101 H 104 H 109 H Respiratory Rate 28 H 29 H 33 H Respiratory Effort / Characteristics Respiratory Depth Blood Pressure 157/74 H Blood Pressure Mean 101 Pulse Oximetry 99 98 98 Oxygen Delivery Method Sepsis New/Unexplained Change in Mental Status Sepsis Action Taken by Nursing 11/13/23 13:30 11/13/23 14:00 11/13/23 14:17 Temperature Temperature Source Pulse Rate 109 H 107 H 109 H Pulse Rate from SpO2 Sensor 110 H 139 H Respiratory Rate 30 H 21 25 H Respiratory Effort / Characteristics Respiratory Depth Blood Pressure 140/64 Blood Pressure Mean 89 Pulse Oximetry 97 Oxygen Delivery Method Sepsis New/Unexplained Change in Mental Status Sepsis Action Taken by Nursing 11/13/23 14:30 11/13/23 15:00 Temperature Temperature Source Pulse Rate 110 H 105 H Pulse Rate from SpO2 Sensor 108 H 106 H Respiratory Rate 21 23 Respiratory Effort / Characteristics Respiratory Depth Blood Pressure 144/71 H 116/54 L Blood Pressure Mean 95 74 Pulse Oximetry 94 95 Oxygen Delivery Method Sepsis New/Unexplained Change in Mental Status Sepsis Action Taken by Nursing Laboratory Data 11/13/23 20:40 11/13/23 12:37 Lab Results 11/13/23 11/13/23 11/13/23 Range/Units 12:37 12:37 14:09 WBC 7.85 (4.8-10.8) K/ul RBC 2.02 L (4.70-6.10) M/uL Hgb 6.4 L* (14.0-18.0) g/dl Hct 18.9 L* (42.0-52.0) % MCV 93.6 (80.0-100.0) fL MCH 31.7 (25.0-34.0) pg MCHC 33.9 (32.0-36.0) g/dL RDW Std Deviation 62.8 H (36.4-46.3) fL RDW Coeff of Brent 18.1 H (11.5-14.5) % Plt Count 152 (130-400) K/uL MPV 9.8 (9.4-12.4) fL Immature Gran % (Auto) 0.4 % Neut % (Auto) 82.5 % Lymph % (Auto) 9.8 % [place] % (Auto) 6.9 % Eos % (Auto) 0.0 % Baso % (Auto) 0.4 % Neut # (Auto) 6.48 (1.40-6.50) K/uL Lymph # (Auto) 0.77 L (1.20-3.40) K/uL [place] # (Auto) 0.54 (0.11-0.59) K/uL Eos # (Auto) 0.00 (0.00-0.50) K/uL Baso # (Auto) 0.03 (0.00-0.20) K/uL Immature Gran # (Auto) 0.03 (0.01-0.20) K/uL Polychromasia 1+ Sodium 135 L (136-145) mmol/L Potassium 3.7 (3.5-5.1) mmol/L Chloride 102 (98-107) mmol/L Carbon Dioxide 24 (21-32) mmol/L Anion Gap 9 (3-11) BUN 69 H (6-23) mg/dl Creatinine 2.48 H (0.6-1.4) mg/dl Est Cr Clr Drug Dosing 36.9 ml/min Est GFR ( Amer) 30.2 ml/min Est GFR (Non-Af Amer) 26.0 ml/min BUN/Creatinine Ratio 27.8 H (10-20) Glucose 236 H (70-99(Fasting)) mg/dl Lactate 1.9 (0.4-2.0) mmol/L Calcium 8.7 (8.6-10.3) mg/dl Magnesium 1.4 L (1.7-2.4) mg/dl Total Bilirubin 1.3 H (0.2-1.0) mg/dl Direct Bilirubin 0.3 H (0-0.2) mg/dl AST 31 (13-39) U/L ALT 15 (7-52) U/L Alkaline Phosphatase 54 (34-104) U/L Total Creatine Kinase 400 H Cancelled (30-223) U/L Troponin I High Sens 17.4 (0-20) pg/ml Total Protein 7.2 (6.0-8.3) gm/dl Albumin 3.3 L (3.4-5.0) gm/dl Procalcitonin 5.75 H (0-0.5) ng/ml Blood Type B Positive Blood Type Recheck B Positive Antibody Screen NEGATIVE Crossmatch See Detail Administered Medications Sodium Chloride (Nss) 1,000 mls @ 100 mls/hr IV .Q10H JACKSON Stop: 11/14/23 13:29 Last Admin: 11/13/23 17:47 Dose: 100 mls/hr Documented By: ALEKSANDRA Insulin Aspart (Insulin Aspart Per Unit Charge) 0 units SC ACHS JACKSON Stop: 12/13/23 16:29 Last Admin: 11/13/23 18:37 Dose: 7 units Documented By: ALEKSANDRA Co-signed By: EL Discontinued Medications Acetaminophen (Acetaminophen 500 Mg Tab) 500 mg PO ONE ONE Stop: 11/13/23 16:16 Last Admin: 11/13/23 16:33 Dose: 500 mg Documented By: ALEKSANDRA Sodium Chloride (Nss) 1,000 mls @ 250 mls/hr IV .Q4H JACKSON Stop: 12/13/23 11:29 Last Admin: 11/13/23 14:51 Dose: 250 mls/hr Documented By: Infusion: 11/13/23 14:51 Dose: Infused Documented By: Admin: 11/13/23 12:04 Dose: 250 mls/hr Documented By: ROSANNE Acetaminophen (Ofirmev) 1,000 mg in 100 mls @ 400 mls/hr IV NOW STA Stop: 11/13/23 13:04 Last Infusion: 11/13/23 13:31 Dose: Infused Documented By: Admin: 11/13/23 13:13 Dose: 400 mls/hr Documented By: ROSANNE Cefepime HCl (Maxipime) 2,000 mg in 20 mls @ 5 mls/min IV NOW STA; Protocol Stop: 11/13/23 12:53 Last Admin: 11/13/23 13:13 Dose: 5 mls/min Documented By: ROSANNE Magnesium Sulfate/Dextrose (Magnesium Sulfate / D5w) 1 gm in 100 mls @ 100 mls/hr IV NOW STA Stop: 11/13/23 14:36 Last Infusion: 11/13/23 14:51 Dose: Infused Documented By: Admin: 11/13/23 13:49 Dose: 100 mls/hr Documented By: ROSANNE Pantoprazole Sodium 40 mg/ (Syringe) 10 mls @ 5 mls/min IV NOW ONE Stop: 11/13/23 14:24 Last Admin: 11/13/23 14:50 Dose: 5 mls/min Documented By: ROSANNE Vancomycin HCl 2,500 mg/ (Sodium Chloride) 550 mls @ 200 mls/hr IV TODAY@1715 ONE Stop: 11/13/23 19:59 Last Admin: 11/13/23 18:24 Dose: 200 mls/hr Documented By: ALEKSANDRA Piperacillin Sod/Tazobactam (Sod 4.5 gm/ Dextrose) 100 mls @ 200 mls/hr IV NOW ONE; Protocol Stop: 11/13/23 17:29 Last Infusion: 11/13/23 18:23 Dose: Infused Documented By: Admin: 11/13/23 17:38 Dose: 200 mls/hr Documented By: ML Ondansetron HCl (Ondansetron Inj 2 Mg/Ml 2 Ml Vial) Confirm Administered Dose 4 mg .ROUTE .STK-MED ONE Stop: 11/13/23 14:24 Last Admin: 11/13/23 14:24 Dose: 4 mg Documented By: AbbeKP Imaging Data Radiologist's Impression: Chest X-Ray 11/13/23 11:20 XR chest 1V portable HISTORY: 68 years-old Male Sepsis acute sepsis COMPARISON: 01/29/2023 TECHNIQUE: AP view of the chest FINDINGS: Cardiomediastinal and hilar silhouettes are unchanged. No pneumothorax, pleural effusion, airspace consolidation or pulmonary edema. Bones appear grossly intact. IMPRESSION: No acute process. ACT 112: Negative or not required by law. The above report was generated using voice recognition software. It may contain grammatical, syntax or spelling errors. Electronically signed by: Zachariah Walker M.D. 11/13/2023 12:[address] 11/13/23 11:20 CT head/brain wo con CLINICAL HISTORY: 68 years-old Male with syncope/trauma. Acute syncope with head trauma TECHNIQUE: Multiple axial CT images of the head were obtained without contrast. A dose lowering technique was utilized adhering to the principles of ALARA. CT DOSE: 625.8 mGy.cm COMPARISON: 01/29/2023 FINDINGS: No acute intracranial hemorrhage, midline shift, intracranial mass, acute hydrocephalus, territorial ischemia or abnormal extra-axial collection. Unchanged ventriculomegaly with probable chronic microvascular ischemic disease. Unchanged extra-axial calcifications adjacent to the superior left frontal lobe near the vertex. The calvarium is intact. The paranasal sinuses, mastoid air cells, and middle ear cavities are clear. IMPRESSION: No acute intracranial abnormality. ACT 112: Negative or not required by law. The above report was generated using voice recognition software. It may contain grammatical, syntax or spelling errors. Electronically signed by: Zachariah Walker M.D. 11/13/2023 12:06 PM Hip/Pelvis X-Ray 11/13/23 11:20 XR hip RT 2V w pelvis CLINICAL HISTORY: trauma TECHNIQUE: 2 views of the right hip and single frontal view of the pelvis were obtained. Comparison: Comparison is made to CT abdomen pelvis 01/29/2023 FINDINGS: There is no evidence of an acute fracture. Degenerative changes are seen in the hip joint. Vascular calcifications are noted. IMPRESSION: Degenerative changes without evidence of acute abnormality. ACT 112: Negative or not required by law. Electronically signed by: Tico Hamlin M.D. 11/13/2023 12:33 PM Abdomen/Pelvis CT 11/13/23 15:23 CT SCAN OF THE ABDOMEN AND PELVIS WITHOUT IV CONTRAST CLINICAL HISTORY: Nausea and vomiting. COMPARISON STUDY: Abdominal CT dated 01/29/2023. TECHNIQUE: CT scan of the abdomen and pelvis is performed from the lung bases to the proximal femora. Images are reviewed in the axial, sagittal, and coronal planes. IV contrast was not administered for this examination. Note that the examination was performed and significant suboptimal fashion without oral and IV contrast. A dose lowering technique was utilized adhering to the principles of ALARA. FINDINGS: Lung bases: The heart is normal in size and without pericardial effusion. The coronary arteries are densely calcified. There is bibasilar scarring/atelectasis. No airspace consolidation or pleural effusion is identified. A small hiatal hernia is noted. Liver: The unenhanced liver is enlarged, measuring 20.5 cm in length. The liver is otherwise normal in contour and attenuation. There is no intrahepatic biliary ductal dilatation. Gallbladder: There are calcified gallstones with no CT evidence of acute cholecystitis. Spleen: The spleen is mildly enlarged measuring 14.5 cm in length. Pancreas: Unremarkable. Adrenal glands: Unremarkable. Kidneys: The unenhanced kidneys are normal in size and without hydronephrosis. There is a 15 mm calculus in the right renal pelvis. A punctate nonobstructing calculus is in the left kidney. No ureteral stone is identified. Bilateral renal cysts measure up to 3.4 cm. There is asymmetric right-sided perinephric stranding. Abdominal vasculature: The abdominal aorta is normal in course and caliber noting mild to moderate atherosclerotic calcification. Bowel: There is no bowel obstruction. The appendix is well-visualized and normal. Peritoneum: There is no intraperitoneal free air or abdominal ascites. Lymphadenopathy: Prominent iliac chain lymph nodes are likely reactive. The largest is on the right and measures 2.2 cm in short axis. Pelvic viscera: The prostate gland is diminutive and heterogeneous. The bladder is distended, and the wall is thickened/trabeculated indicating chronic outlet obstruction. Skeletal structures: The skeletal structures are osteopenic. There is an acute subacute appearing superior and by compression deformity of L2 with minimal loss of height and paravertebral edema. There is no significant retropulsion of fragments or central canal stenosis. Minimal superior and the compression deformities of T10, T11, and L1 4 age-indeterminate but also new from 01/29/2023. There is [id number] spondylosis. Mild sclerotic changes noted in the sacroiliac joints. No lytic or blastic lesions are seen. IMPRESSION: 1. There is asymmetric right-sided perinephric stranding. Correlate with clinical findings and urinalysis. 2. There is an acute to subacute appearing superior plate compression deformity of L2 with mild loss of height. Correlate for point tenderness. 3. There are additional minimal age indeterminate superior compression deformities of T10, T11, and L1. These are new from 01/29/2023. Correlate clinically. 4. Nephrolithiasis. 5. Bladder distention. 6. Cholelithiasis. 7. Prominent iliac chain lymph nodes are similar to previous and likely reactive. 8. Hepatosplenomegaly. 9. Additional findings as above. ACT 112: Negative or not required by law. Electronically signed by: Tomi Westfall M.D. 11/13/2023 5:53 PM Discharge Plan Visit Data Chief Complaint: Fall Stated Complaint: FALL, WEAKNESS, DIZZINESS, URINARY SX ED Provider: Kat Chu Discharge Problem: Generalized weakness, Fall, Acute pain of right hip, Anemia, CKD (chronic kidney disease), Acute UTI (urinary tract infection), Chronic ulcer of lower extremity, Compression fracture of lumbar vertebra Patient Disposition: Admitted As Inpatient Discharge Instructions Interventions: ED Discharge Assessment Last Done: 11/13/23 15:54
[2023-11-13] MEDS: SODIUM CHLORIDE 0.9% 1,000 ML IV SCH ×2 (12:04→17:47)
--- NOTE | 2023-11-13 12:08 | CT Scan Report ---
CT head/brain wo con CLINICAL HISTORY: 68 years-old Male with syncope/trauma. Acute syncope with head trauma TECHNIQUE: Multiple axial CT images of the head were obtained without contrast. A dose lowering tech nique was utilized adhering to the principles of ALARA. CT DOSE: 625.8 mGy.cm COMPARISON: 01/29/2023 FINDINGS: No acute intracranial hemorrhage, midline shift, intracranial mass, acute hydrocephalus, territorial ischemia or abnormal extra-axial collection. Unchanged ventriculomegaly with probable chronic microva scular ischemic disease. Unchanged extra-axial calcifications adjacent to the superior left frontal l obe near the vertex. The calvarium is intact. The paranasal sinuses, mastoid air cells, and middle ear cavities are clear . IMPRESSION: No acute intracranial abnormality. ACT 112: Negative or not required by law. The above report was generated using voice recognition software. It may contain grammatical, syntax o r spelling errors. Electronically signed by: Zachariah Walker M.D. 11/13/2023 12:06 PM
--- NOTE | 2023-11-13 12:14 | XRay Report ---
XR chest 1V portable HISTORY: 68 years-old Male Sepsis acute sepsis COMPARISON: 01/29/2023 TECHNIQUE: AP view of the chest FINDINGS: Cardiomediastinal and hilar silhouettes are unchanged. No pneumothorax, pleural effusion, airspace co nsolidation or pulmonary edema. Bones appear grossly intact. IMPRESSION: No acute process. ACT 112: Negative or not required by law. The above report was generated using voice recognition software. It may contain grammatical, syntax o r spelling errors. Electronically signed by: Zachariah Walker M.D. 11/13/2023 12:13 PM
--- NOTE | 2023-11-13 12:36 | XRay Report ---
XR hip RT 2V w pelvis CLINICAL HISTORY: trauma TECHNIQUE: 2 views of the right hip and single frontal view of the pelvis were obtained. Comparison: Comparison is made to CT abdomen pelvis 01/29/2023 FINDINGS: There is no evidence of an acute fracture. Degenerative changes are seen in the hip joint. Vascular c alcifications are noted. IMPRESSION: Degenerative changes without evidence of acute abnormality. ACT 112: Negative or not required by law. Electronically signed by: Tico Hamlin M.D. 11/13/2023 12:33 PM
[2023-11-13] MEDS: CEFEPIME 2,000 MG/20 ML VIAL IV STA (13:13)
[2023-11-13] MEDS: ACETAMINOPHEN 1,000 MG/100 ML VIAL IV STA (13:13)
[2023-11-13 13:20] LABS: Hematocrit (blood only) 18.9 % (42.0-52.0); Hemoglobin 6.4 g/dl (14.0-18.0); Mean Corpuscular Hemoglobin 31.7 pg (25.0-34.0); Mean Corpuscular Hgb Conc 33.9 g/dL (32.0-36.0); Mean Corpuscular Volume 93.6 fL (80.0-100.0); Mean Platelet Volume 9.8 fL (9.4-12.4); Platelet Count 152 K/uL (130-400); RDW Coefficient of Variation 18.1 % (11.5-14.5); RDW Standard Deviation 62.8 fL (36.4-46.3); Red Blood Count 2.02 M/uL (4.70-6.10); White Blood Count 7.85 K/ul (4.8-10.8)
[2023-11-13 13:21] LABS: Albumin Level 3.3 gm/dl (3.4-5.0); BUN Creatinine Ratio 27.8 (10-20); Bilirubin Direct 0.3 mg/dl (0-0.2); Bilirubin,Total 1.3 mg/dl (0.2-1.0); Calcium 8.7 mg/dl (8.6-10.3); Creatinine Clr Calc Pharmacy 36.9 ml/min; Est GFR (African American) 30.2 ml/min; Magnesium 1.4 mg/dl (1.7-2.4); Potassium 3.7 mmol/L (3.5-5.1); Total Protein 7.2 gm/dl (6.0-8.3)
[2023-11-13 13:25] LABS: Troponin I High Sensitivity 17.4 pg/ml (0-20)
[2023-11-13] MEDS ORDERED: SODIUM CHLORIDE 0.9% 250 ML IV PRN (13:36)
[2023-11-13 13:38] LABS: Basophils # (auto) 0.03 K/uL (0.00-0.20); Basophils % (auto) 0.4 %; Immature Granulocytes # (auto) 0.03 K/uL (0.01-0.20); Immature Granulocytes % (auto) 0.4 %; Lymphocytes # (auto) 0.77 K/uL (1.20-3.40); Lymphocytes % (auto) 9.8 %; Monocytes # (auto) 0.54 K/uL (0.11-0.59); Monocytes % (auto) 6.9 %; Neutrophils # (auto) 6.48 K/uL (1.40-6.50); Neutrophils % (auto) 82.5 %; Polychromasia 1+
[2023-11-13] MEDS: MAGNESIUM SULFATE / D5W 1 GM/100 ML BAG IV STA (13:49)
[2023-11-13] MEDS: ONDANSETRON INJ 2 MG/ML 2 ML VIAL ONE (14:24)
[2023-11-13] MEDS: PANTOprazole 40 MG in SYRINGE 0 ML IV ONE (14:50)
--- NOTE | 2023-11-13 15:10 | History & Physical Report ---
Date of Service November 13, 2023 Assessment & Plan (1) Sepsis: (2) Cellulitis: (3) Acute on chronic anemia: (4) Fall: (5) Generalized weakness: (6) Acute kidney injury superimposed on chronic kidney disease: (7) Hypomagnesemia: (8) Venous stasis ulcers: (9) Diabetes mellitus, type II: (10) Hypertension: (11) Hyperlipidemia: (12) SPENCER on CPAP: (13) Gout: Plan: Patient is 68 year old male with PMH HTN, dyslipidemia, DM II, CKD III, gout, SPENCER, anemia chronic disease, chronic wounds and others listed below presented to ER with c/o fall. HPI, ROS, med rec completed by myself, Luisa Monzon PA-C PE, A&P per Dr Zarco. See addendum History of Present Illness Chief Complaint: Fall Primary Care Provider: Nancy Ryan DO Patient is 68 year old male with PMH HTN, dyslipidemia, DM II, CKD III, gout, SPENCER, anemia chronic disease, chronic wounds and others listed below presented to ER with c/o fall. History obtained from patient, , and outpatient chart review. Patient states at 3:30am today he ambulated to bathroom. When tried to get up he felt weak and fell on way to bathroom. Denies hitting head. Had some pain to right hip. He tried to get off floor and was unable to. At 8:30am this morning found him on floor. Patient states has been having chills past couple of days. Today feeling hot and worse chills. States urine has foul odor. Denies dysuria, hematuria or urinary frequency. Is on epoetin every 2 weeks for chronic anemia with last dose yesterday. Patient states fell yesterday onto buttocks and has pain to tailbone. States that has been having loose stools that are brown. Has not notice melena or hematochezia. Yesterday vomited once and vomited once today. Denies any noted hematemesis or coffee ground emesis. States after vomited coughed but otherwise denies prior cough. Chronic wounds to BLE. Previously was following with wound clinic, however now helping to apply dressings. Patient states leg wounds appear to him how they are at baseline. [place] of [place]20[place] [facility] [place] and concern for GI bleed. Coumadin was held. He was on Coumadin for H/O DVT. It was recommended to discontinue aspirin. He was discharged on PPI however patient discontinued as he felt it was making him sick. Patient has continued taking aspirin 81mg daily but states no formal diagnosis for daily aspirin. Denies diaphoresis, JORDAN, dizziness, syncope, vision changes, neck pain, CP, SOB, palpitations, sore throat, rhinorrhea, abdominal pain, increased extremity edema, other rashes. Per outpatient chart review: 09/26/23: EGD: gastritis, non-obstructing non-bleeding duodenal ulcers with no stigmata of bleeding 02/09/22: colonoscopy: 6 mm polyp sigmoid colon, non-bleeding internal hemorrhoids 11/11/23 Hgb: 9.4. 10/14/23 Cr: 1.9 Allergies Allergy/AdvReac Type Severity Reaction Status Date / Time No Known Allergies Allergy Verified 11/13/23 12:46 Home Medications Medication Instructions Recorded Confirmed Type aspirin 81 mg tablet,delayed 81 mg PO QAM 04/08/18 11/13/23 History release (Adult Aspirin Regimen) atorvastatin 20 mg tablet (Lipitor) 20 mg PO QAM 04/08/18 11/13/23 History cyanocobalamin (vitamin B-12) 1,000 mcg PO QAM 04/08/18 11/13/23 History 1,000 mcg tablet (Vitamin B-12) omega 8-xas-vqz-fish oil 100 1 cap PO QAM 04/08/18 11/13/23 History mg-160 mg-1,000 mg capsule dorzolamide 22.3 mg-timolol 6.8 1 drp OPB BID 06/09/19 11/13/23 History mg/mL eye drops multivitamin 1 tab PO QAM 06/09/19 11/13/23 History ascorbic acid (vitamin C) 1,000 mg 1 g PO QAM 06/09/21 11/13/23 History tablet carvedilol 6.25 mg tablet 6.25 mg PO BID 06/09/21 11/13/23 History insulin glargine 100 unit/mL (3 20 unit subcut QAM 06/09/21 11/13/23 History mL) subcutaneous pen (Basaglar KwikPen U-100 Insulin) metformin 500 mg tablet 500 mg PO BID 06/09/21 11/13/23 History allopurinol 300 mg tablet See Rx Instructions .Route .COMPLEX 06/28/21 11/13/23 History allopurinol 100 mg tablet See Rx Instructions .Route .COMPLEX 01/29/23 11/13/23 History ammonium lactate 12 % topical cream 1 applic topical UD PRN Skin 01/29/23 11/13/23 History Irritation netarsudil 0.02 % eye drops 1 drp OPL HS 01/29/23 11/13/23 History (Rhopressa) semaglutide 2 mg/dose (8 mg/3 mL) 2 mg subcut WK 01/29/23 11/13/23 History subcutaneous pen injector (Ozempic) epoetin judith 20,000 unit/2 mL 20,000 unit subcut UD 11/13/23 11/13/23 History injection solution (Procrit) losartan 25 mg tablet 25 mg PO QAM 11/13/23 11/13/23 History torsemide 20 mg tablet 20 mg PO QAM 11/13/23 11/13/23 History Past Med/Surg History Medical History (Updated 11/13/23 @ 17:09 by Luisa Monzon PA-C) History of colon polyps BENIGN Carpal tunnel syndrome of right wrist Benign cyst of kidney FATTY TISSUE GERD (gastroesophageal reflux disease) Hx of gout Diabetes mellitus, type II Vitamin B12 deficiency PT NOT SURE Anemia Chronic anticoagulation Diabetic neuropathy Mild nonproliferative diabetic retinopathy CKD (chronic kidney disease) stage 3, GFR 30-59 ml/min RLS (restless legs syndrome) Sleep apnea CPAP History of DVT (deep vein thrombosis) LEFT LEG IN 1980. OCCURED AFTER INJURY. >REASON FOR COUMADIN Hypertension Hyperlipidemia Chronic venous insufficiency UNNA BOOTS B/L - CHANGED ONCE A WEEK SOME OPEN SORES ON LEGS/WOUND CLINIC [place] Surgical History History of endoscopy Family history of reaction to anesthesia MOTHER>SLOW TO WAKE UP [place] teeth removed 1 History of repair of retinal tear by laser photocoagulation History of cataract surgery RT/LEFT History of amputation of toe SMALL RT TOE History of colonoscopy Family History Mother Family history of diabetes mellitus Father Family history of diabetes mellitus Other Diabetes Heart disease Hypertension Social History Smoking Status: Never smoker Second Hand Exposure: No; Do You Dip or Chew Tobacco: No; Hx Alcohol Use: Yes Alcohol type: beer Hx Substance Use: No Preferred Language: Canadian Communication Ability: Effective Material Processor Required: No Beliefs That Will Affect Care: None Current Living Situation: Spouse Feels Safe at Home: Yes Assistive Devices: CPAP, Glasses and Other Review of Systems Review of Systems: All systems reviewed & are unremarkable except as noted in HPI & below Physical Exam Physical Exam: PE per Dr Zarco Results & Data Results & Data Vital Signs (Past 12 Hours) Vital Signs Temp Pulse Resp BP Pulse Ox O2 Del Method 11/13/23 15:00 105 H 23 116/54 L 95 11/13/23 14:30 110 H 21 144/71 H 94 11/13/23 14:17 109 H 25 H 140/64 11/13/23 14:00 107 H 21 11/13/23 13:30 109 H 30 H 97 11/13/23 13:10 108 H 33 H 98 11/13/23 13:00 107 H 29 H 98 11/13/23 12:51 102 H 28 H 157/74 H 99 11/13/23 12:50 102 H 27 H 98 11/13/23 12:40 100 H 32 H 11/13/23 12:30 106 H 29 H 11/13/23 12:24 99 H 11/13/23 12:20 120 H 23 11/13/23 12:10 99 H 31 H 98 11/13/23 12:00 99 H 27 H 11/13/23 11:50 100 H 33 H 11/13/23 11:40 19 11/13/23 11:39 100 H 23 11/13/23 11:23 96 H 26 H 96 11/13/23 11:20 96 Room Air 11/13/23 10:09 38.0 C H 100 H 16 156/81 H 98 Room Air Laboratory Results Short CBC 11/13/23 Range/Units 12:37 WBC 7.85 (4.8-10.8) K/ul Hgb 6.4 L* (14.0-18.0) g/dl Hct 18.9 L* (42.0-52.0) % Plt Count 152 (130-400) K/uL BMP 11/13/23 12:37 Sodium 135 L Potassium 3.7 Chloride 102 Carbon Dioxide 24 BUN 69 H Creatinine 2.48 H Glucose 236 H Calcium 8.7 Cardiac Enzymes 11/13/23 11/13/23 Range/Units 12:37 12:37 Total Creatine Kinase 400 H Cancelled (30-223) U/L Liver Function 11/13/23 Range/Units 12:37 Total Bilirubin 1.3 H (0.2-1.0) mg/dl Direct Bilirubin 0.3 H (0-0.2) mg/dl AST 31 (13-39) U/L ALT 15 (7-52) U/L Alkaline Phosphatase 54 (34-104) U/L Albumin 3.3 L (3.4-5.0) gm/dl Diagnostic Findings Chest X-Ray 11/13/23 11:20 XR chest 1V portable HISTORY: 68 years-old Male Sepsis acute sepsis COMPARISON: 01/29/2023 TECHNIQUE: AP view of the chest FINDINGS: Cardiomediastinal and hilar silhouettes are unchanged. No pneumothorax, pleural effusion, airspace consolidation or pulmonary edema. Bones appear grossly intact. IMPRESSION: No acute process. ACT 112: Negative or not required by law. The above report was generated using voice recognition software. It may contain grammatical, syntax or spelling errors. Electronically signed by: Zachariah Walker M.D. 11/13/2023 12:[address] 11/13/23 11:20 CT head/brain wo con CLINICAL HISTORY: 68 years-old Male with syncope/trauma. Acute syncope with he ad trauma TECHNIQUE: Multiple axial CT images of the head were obtained without contrast. A dose lowering technique was utilized adhering to the principles of ALARA. CT DOSE: 625.8 mGy.cm COMPARISON: 01/29/2023 FINDINGS: No acute intracranial hemorrhage, midline shift, intracranial mass, acute hydrocephalus, territorial ischemia or abnormal extra-axial collection. Unchanged ventriculomegaly with probable chronic microvascular ischemic disease. Unchanged extra-axial calcifications adjacent to the superior left frontal lobe near the vertex. The calvarium is intact. The paranasal sinuses, mastoid air cells, and middle ear cavities are clear. IMPRESSION: No acute intracranial abnormality. ACT 112: Negative or not required by law. The above report was generated using voice recognition software. It may contain grammatical, syntax or spelling errors. Electronically signed by: Zachariah Walker M.D. 11/13/2023 12:06 PM Hip/Pelvis X-Ray 11/13/23 11:20 XR hip RT 2V w pelvis CLINICAL HISTORY: trauma TECHNIQUE: 2 views of the right hip and single frontal view of the pelvis were obtained. Comparison: Comparison is made to CT abdomen pelvis 01/29/2023 FINDINGS: There is no evidence of an acute fracture. Degenerative changes are seen in the hip joint. Vascular calcifications are noted. IMPRESSION: Degenerative changes without evidence of acute abnormality. ACT 112: Negative or not required by law. Electronically signed by: Tico Hamlin M.D. 11/13/2023 12:33 PM Supervising Physician Co-Signing Physician Notes Patient seen and examined independently. Discussed with above provider. Patient is a 68-year-old male with past medical history of type 2 diabetes mellitus CKD, history of DVT, previously on Coumadin, duodenal ulcer, hypertension, hyperlipidemia presents to the hospital with a mechanical fall. He reports significant weakness, fatigue. He got up at night to go to the bathroom; became weak and fell down. He could not get up till morning. found him on the bathroom floor and brought him here. On physical examination; Constitutional: Appears tired and fatigue, alert oriented x 3. Obese Respiratory: Bilateral vesicular breath sound Cardiovascular: RRR, no murmur, no edema Vessels: no JVD or carotid bruit Abdomen: Soft nontender Musculoskeletal: Bilateral lower extremity red, swollen with increased warmth. Multiple wound openings present in both extremities. Foul-smelling discharge. Neurologic: PERRL, EOMI, accommodation nl, no face palsy, no dysarthria CN's II- XI intact bilaterally and moves all extremities Psychiatric: A+Ox3, euthymic affect Assessment/plan Sepsis Suspect bilateral lower extremity cellulitis/wound to be the source of infection. Will obtain CT of the right leg to rule out underlying abscess. Started on empiric Zosyn and Vanco, follow-up on blood culture Wound care consult Possible upper GI bleed Acute blood loss anemia History of duodenal ulcer Underwent endoscopy in September 2023; found to have nonbleeding duodenal ulcer. He was recommended Prilosec which he is not taking. Also, recommended to be off aspirin. He is currently taking baby aspirin for primary prevention. Had CBC done 2 days ago; hemoglobin was around 9.4 Denies melena, hematemesis. Stop aspirin. IV Protonix twice daily Transfuse 1 unit of blood CBC tomorrow a.m. Given history of duodenal ulcer, presence of aspirin; will appreciate GIs input for possible endoscopy tomorrow AM. N.p.o. from midnight. Acute kidney injury Suspect secondary to sepsis/GI bleed Started on NS at 100 cc/h Renal ultrasound Avoid nephrotoxic agent Hold torsemide, losartan Chronic conditions; Hyperlipidemiacontinue Lipitor Hypertensioncontinue Coreg, hold losartan Type 2 diabetes mellitushold metformin, on Lantus, NovoLog, pharmacy on consult. Anemia of chronic diseaseon erythropoietin every other week. History of DVTCoumadin was stopped August. History of DVTs in 1979; provoked. Will obtain bilateral LE duplex Full code DVT prophylaxisnone given possible chance of bleed, SCDs contraindicated due to bilateral lower extremity wounds. Discussed with patient's at bedside. Answered questions/queries. I have reviewed the advanced practitioner's documentation, and I agree with, and take responsibility for the plan of care I spent a total of 45 minutes coordinating, documenting, and providing care for this patient excluding time spent in the performance of separately billed services. All of the aforementioned completed while collaborating with the assigned advanced practitioner for a full treatment plan Please note the above document was generated using voice recognition software. It may contain grammatical, syntax or spelling errors. Any formal questions or concerns about the content, text or information contained within the body of this dictation should be directly addressed to the provider for clarification (1) Sepsis Acute renal failure type: unspecified Sepsis acute organ dysfunction status: with acute organ dysfunction Sepsis type: sepsis due to unspecified organism Severe sepsis acute organ dysfunction type: acute renal failure Severe sepsis shock status: without septic shock Qualified Code(s): A41.9 - Sepsis, unspecified organism; R65.20 - Severe sepsis without septic shock; N17.9 - Acute kidney failure, unspecified (8) Venous stasis ulcers Laterality: right Non-pressure ulcer stage: unspecified non-pressure ulcer stage Varicose vein presence: unspecified whether present Venous stasis ulcer site: other part of lower leg Qualified Code(s): I83.018 - Varicose veins of right lower extremity with ulcer other part of lower leg; L97.819 - Non-pressure chronic ulcer of other part of right lower leg with unspecified severity (10) Hypertension Hypertension type: essential hypertension Qualified Code(s): I10 - Essential (primary) hypertension
[2023-11-13] MEDS ORDERED: POLYETHYLENE (MIRALAX) 17 GM PACK PO PRN (15:53)
[2023-11-13] MEDS ORDERED: ONDANSETRON INJ 2 MG/ML 2 ML VIAL IV PRN (15:53)
[2023-11-13] MEDS ORDERED: VANCOMYCIN CONSULT ACTIVE PRN (16:16)
[2023-11-13] MEDS ORDERED: DEXTROSE 50% 50 ML SYRINGE IV PRN (16:19)
[2023-11-13] MEDS ORDERED: GLUCOSE 40% GEL 15 GM TUBE PO PRN (16:19)
[2023-11-13] MEDS ORDERED: CARBOHYDRATES FOR HYPOGLYCEMIA PO PRN (16:19)
[2023-11-13] MEDS ORDERED: GLUCOSE 10 TAB/TUBE PO PRN (16:19)
[2023-11-13] MEDS ORDERED: GLUCAGON FOR INJ 1 MG VIAL SQ PRN (16:19)
[2023-11-13] MEDS: ACETAMINOPHEN 500 MG TAB PO ONE (16:33)
--- NOTE | 2023-11-13 17:05 | Pharmacy Report ---
Pharmacy PK ABX Note - Date of Service November 13, 2023 - Assessment and Plan Assessment 68 year old M receiving IV Vancomycin + Zosyn for treatment of SSTI, hx bilateral lower extremity wounds, pt no longer sees wound care but his does his wound care at home. PMH significant for DM, CKD III. HPI includes fall in bathroom, fever and chills, vomiting, foul smelling urine. Febrile, WBC 7, Procal 5.75. Blood cultures pending. Day # 1 of antimicrobial therapy. Plan Vancomycin * Loading dose: 2500 mg IV x 1 * Maintenance dose: 1000 mg IV every 24 hours * Regimen is predicted to achieve target AUC/ANICETO of 400-600 mg/L.hr * Level to be ordered if continued > 48 hours Zosyn 4.5g IV x1 then 4.5g IV Q8H extended interval infusion for CrCl > 20ml/min. Pharmacy will continue to follow and will adjust dose/frequency as necessary. Thank you. Pharmacy has transitioned to AUC monitoring for vancomycin. AUC/ANICETO is the preferred PK/PD target and is associated with decreased risk of nephrotoxicity compared to traditional trough targets.
[2023-11-13] MEDS: PIPER/TAZO 4.5g in D5W MINI-B 100 ML IV ONE (17:38)
--- NOTE | 2023-11-13 17:55 | CT Scan Report ---
CT SCAN OF THE ABDOMEN AND PELVIS WITHOUT IV CONTRAST CLINICAL HISTORY: Nausea and vomiting. COMPARISON STUDY: Abdominal CT dated 01/29/2023. TECHNIQUE: CT scan of the abdomen and pelvis is performed from the lung bases to the proximal femora. Images are reviewed in the axial, sagittal, and coronal planes. IV contrast was not administered for this examination. Note that the examination was performed and significant suboptimal fashion without oral and IV contrast. A dose lowering technique was utilized adhering to the principles of ALARA. FINDINGS: Lung bases: The heart is normal in size and without pericardial effusion. The coronary arteries are d ensely calcified. There is bibasilar scarring/atelectasis. No airspace consolidation or pleural effus ion is identified. A small hiatal hernia is noted. Liver: The unenhanced liver is enlarged, measuring 20.5 cm in length. The liver is otherwise normal i n contour and attenuation. There is no intrahepatic biliary ductal dilatation. Gallbladder: There are calcified gallstones with no CT evidence of acute cholecystitis. Spleen: The spleen is mildly enlarged measuring 14.5 cm in length. Pancreas: Unremarkable. Adrenal glands: Unremarkable. Kidneys: The unenhanced kidneys are normal in size and without hydronephrosis. There is a 15 mm calcu yuri in the right renal pelvis. A punctate nonobstructing calculus is in the left kidney. No ureteral stone is identified. Bilateral renal cysts measure up to 3.4 cm. There is asymmetric right-sided mckenzie nephric stranding. Abdominal vasculature: The abdominal aorta is normal in course and caliber noting mild to moderate at herosclerotic calcification. Bowel: There is no bowel obstruction. The appendix is well-visualized and normal. Peritoneum: There is no intraperitoneal free air or abdominal ascites. Lymphadenopathy: Prominent iliac chain lymph nodes are likely reactive. The largest is on the right a nd measures 2.2 cm in short axis. Pelvic viscera: The prostate gland is diminutive and heterogeneous. The bladder is distended, and the wall is thickened/trabeculated indicating chronic outlet obstruction. Skeletal structures: The skeletal structures are osteopenic. There is an acute subacute appearing sup erior and by compression deformity of L2 with minimal loss of height and paravertebral edema. There i s no significant retropulsion of fragments or central canal stenosis. Minimal superior and the compre ssion deformities of T10, T11, and L1 4 age-indeterminate but also new from 01/29/2023. There is mild- to-moderate spondylosis. Mild sclerotic changes noted in the sacroiliac joints. No lytic or blastic l esions are seen. IMPRESSION: 1. There is asymmetric right-sided perinephric stranding. Correlate with clinical findings and urinal ysis. 2. There is an acute to subacute appearing superior plate compression deformity of L2 with mild loss of height. Correlate for point tenderness. 3. There are additional minimal age indeterminate superior compression deformities of T10, T11, and L 1. These are new from 01/29/2023. Correlate clinically. 4. Nephrolithiasis. 5. Bladder distention. 6. Cholelithiasis. 7. Prominent iliac chain lymph nodes are similar to previous and likely reactive. 8. Hepatosplenomegaly. 9. Additional findings as above. ACT 112: Negative or not required by law. Electronically signed by: Tomi Westfall M.D. 11/13/2023 5:53 PM
[2023-11-13 18:22] LABS: Appearance Urine Turbid (Clear); Bacteria Urine Automated 1+ (Negative); Bilirubin Urine Negative (Negative); Blood Urine 3+ (Negative); Color Urine Dark Yellow; Glucose Urine UA Negative (Negative); Ketones Urine Negative (Negative); Leukocyte Esterase Urine 3+ (Negative); Nitrite Urine Negative (Negative); Protein Urine 2+ (Negative); RBC Urine Automated 0-4 /hpf (0-4); Specific Gravity Urine 1.015 (1.000-1.030); Urobilinogen Urine Negative (Negative); WBC Urine Automated >30 /hpf (0-5); pH Urine 5.5 (4.5-7.5)
[2023-11-13] MEDS: VANCOMYCIN HCL 2,500 MG in SODIUM CHLORIDE 0.9% 500 ML IV ONE (18:24)
[2023-11-13] MEDS: INSULIN ASPART PER UNIT CHARGE SC SCH (18:37)
--- NOTE | 2023-11-13 19:32 | CT Scan Report ---
CT SCAN OF THE RIGHT TIBIA AND FIBULA WITHOUT IV CONTRAST CLINICAL HISTORY: Right lower extremity edema. COMPARISON STUDY: Radiographs of the right knee dated 01/29/2023. TECHNIQUE: CT scan of the right tibia and fibula is performed from the distal femur to the ankle. Aleta ges are reviewed in the axial, sagittal, and coronal planes. IV contrast was not administered for thi s examination. A dose lowering technique was utilized adhering to the principles of ALARA. CT DOSE: 1934.62 mGy.cm FINDINGS: The skeletal structures are osteopenic. There is no evidence of tibial or fibular fracture. No bony erosion is seen. The knee and ankle joints are grossly maintained. Arthritic change is seen in the knee. There is no significant knee joint effusion. The regional musculature is atrophic. Advan tom atherosclerotic calcification is observed in the regional arteries. Soft tissue edema and subcuta neous fluid is seen throughout the right lower extremity. No organized fluid collection is identified on this unenhanced examination. Extensive soft tissue calcification is again seen throughout the rig ht leg. The Achilles tendon is intact as visualized. IMPRESSION: 1. No acute bony abnormality is seen involving the right tibia or fibula. 2. Diffuse soft tissue edema and subcutaneous fluid is seen throughout the right leg. Correlate clini ruiz. 3. There is no organized fluid collection seen on this unenhanced examination. 4. Extensive soft tissue calcification is again seen in the right leg. ACT 112: Negative or not required by law. Dictated: 11/13/2023 5:19 PM Transcribed: 11/13/2023 5:48 PM José Miguel [id number] [email or web address] Electronically signed by: Tomi Westfall M.D. 11/13/2023 7:31 PM
--- NOTE | 2023-11-13 20:29 | Ultrasound Report ---
Exam(s): US VENOUS BILATERAL LOWER EXTREMITIES EXAM: US Duplex Bilateral Lower Extremities Veins CLINICAL HISTORY: Reason for exam: r/o dvt. TECHNIQUE: Real-time duplex ultrasound scan of the bilateral lower extremity veins integrating B-mode two-dimensional vascular structure, Doppler spectral analysis, color flow Doppler imaging and compression. COMPARISON: No relevant prior studies available. FINDINGS: Right deep veins: Unremarkable. No DVT in the right common femoral, femoral, proximal deep femoral or popliteal veins. The veins demonstrate normal color flow, are normally compressible, with normal phasic flow and/or augmentation response. Right superficial veins: Unremarkable. No thrombus in the visualized right great saphenous vein. Left deep veins: Unremarkable. No DVT in the left common femoral, femoral, proximal deep femoral or popliteal veins. The veins demonstrate normal color flow, are normally compressible, with normal phasic flow and/or augmentation response. Left superficial veins: Unremarkable. No thrombus in the visualized left great saphenous vein. Soft tissues: No acute findings. No popliteal cyst. IMPRESSION: No DVT of the bilateral lower extremities. Electronically signed by: Den Rodríguez MD 11/13/23 20:28 PM
[2023-11-13] MEDS: carvediloL 6.25 MG TAB PO SCH (21:21)
[2023-11-13] MEDS: DORZOLAMIDE/TIMOLOL 22.3/6.8MG/ML 10 ML BTL OPB SCH (21:22)
[2023-11-13] MEDS: PANTOprazole 40 MG in SYRINGE 0 ML IV SCH (21:24)
--- OUTSIDE RECORDS SUMMARY | 2023-11-13 21:25 | External Medical Summary | Summary of Care ---
Author Name Unknown Organization [facility] Address [address] [place] [address] Phone [phone] Care Team Providers Care Financial Advisor Name Role Phone Nancy Ryan DO Primary Care Provider [phone] Reason for Visit * Reason Comments Medication Administration Retacrit * Episode Based Medications (Routine) - Authorized Specialty Diagnoses / Procedures Referred By Contac t Referred To Contact Diagnoses Anemia due to stage 3a chronic kidney disease (HCC) Procedures TX INJ RETACRIT NON-ESRD USE Tameka Pires CRNP [address] [facility] [place] [address] Anc Hem/Onc En [place] DEPT CLOSED - 06/25/[address] [place] [address] [phone] Referral ID Status Reason Start Date Expiration Date V isits Requested Visits Authorized [id number] Authorized 04/01/2023 12/23/2023 [id number] Encounter Details Date Type Department Care Team (Late st Contact Info) Description 11/12/2023 10:45 AM EDT Immunization/I njection Hematology/Oncology Treatment, [place] [address] [place] [phone] Nurse, Med [address] [phone] Anemia due to stage 3a chronic kidney disease ([facility])* Allergies No known active allergiesdocumented as of this encounter (statuses as of 11/12/2023) Medications Medication Sig Dispensed Refills Start Date End Date Status MULTIPLE VITAMIN PO TABS 1 TABLET DAILY 0 07/03/2011 Active OMEGA-3 FISH OIL 1000 MG PO CAPS Take one capsule by mouth daily 0 07/03/2011 Active Blood Glucose Monitoring Suppl ([place] SPARK ULTRA SYSTEM) W/DEVICE KITIndications:DM type 2, goal A1c below 7 Use as directed 4 times a day. Use up to four times a day as directed. Diagnosis = E11.9 1 Kit 0 06/29/2015 Active dorzolamide-timolo l (COSOPT OCUMETER PLUS) 2.23-0.68% ophthalmic solution INSTILL 1 DROP INTO BOTH EYES BY OPHTHALMIC ROUTE ONCE IN THE MORING AND THE SECOND DROP AROUND 5 PM 4 10/27/2018 Active Aspirin 81 MG Tablet Take 1 Tablet by mouth in the morning. 0 Active BD Pen Needle Wilda U/F 32G X 4 MM (Insulin Pen Needle)Indications :Type 2 diabetes mellitus with diabetic neuropathy, with long-term current use of insulin ([facility]),Type 2 diabetes mellitus with hemoglobin A1c goal of less than 7.0% ([facility]) Use once a day with basaglar. DX e11.9 100 Each 3 10/17/2021 Active Rhopressa 0.02 % Ophthalmic Solution Instill 1 Drop into the left eye at bedtime. 0 05/17/2022 Active Vitamin C 1000 MG Oral Tablet Take 1 Tablet by mouth in the morning. 0 Active Allopurinol 300 MG Oral Tablet (Zyloprim) TAKE 1 TABLET BY MOUTH EVERY DAY 90 Tablet 3 12/10/2022 Active BetaVersityTouch Verio In Vitro Strip (Glucose Blood) Use to test blood sugars twice a day. Dx. E11.9 300 Strip 1 03/13/2023 Active OneTouch Delica Lancets 30GIndications:Typ e 2 diabetes mellitus with diabetic neuropathy, with long-term current use of insulin ([facility]) Use TWICE a day to test glucose Diagnosis = E11.9 200 Each 3 03/19/2023 Active Ozempic (2 MG/DOSE) 8 MG/3ML Subcutaneous Solution Pen-injector (Semaglutide (2 MG/DOSE))Indicatio ns:Type 2 diabetes mellitus with diabetic neuropathy, with long-term current use of insulin ([facility]) Inject 2 mg under the skin once a week. DX E11.9 Diabetes Mellitus 3 mL 5 03/26/2023 Active Additional Information Patient taking differently: 1 mgSubcutaneous QWEEK, DX E11.9 Diabetes Mellitus, Reported on 10/01/2023 Allopurinol 100 MG Oral Tablet (Zyloprim)Indicati ons:Acute gout of right wrist, unspecified cause Take 1 Tablet by mouth in the morning. Take 1 tablet by mouth in the morning in addition to 300 mg tablet for a total dose of 400 mg.. 90 Tablet 3 05/17/2023 Active metFORMIN HCl 500 MG Oral Tablet (Glucophage)Indica tions:Type 2 diabetes mellitus with diabetic neuropathy, with long-term current use of insulin ([facility]) Take 1 Tablet by mouth 2 times a day with morning and evening meals. 180 Tablet 3 05/17/2023 Active Losartan Potassium 50 MG Oral Tablet (Cozaar) Take 0.5 Tablets by mouth in the morning. 0 06/04/2023 Active Epoetin Gautam-epbx 89077 UNIT/ML Injection Solution (Retacrit) Inject 2 mL intravenously once. Every two weeks 0 Active Torsemide 20 MG Oral Tablet (Demadex) Take 1 Tablet by mouth in the morning. 90 Tablet 3 06/28/2023 Active Vitamin D3 125 MCG (5000 UT) Oral Tablet Chewable Take by mouth. 0 Activ e Chlorthalidone 25 MG Oral Tablet (Hygroton) Take 1 Tablet by mouth in the morning. 90 Tablet 3 08/08/2023 Active Atorvastatin Calcium 20 MG Oral Tablet (Lipitor)Indicatio ns:Dyslipidemia, goal LDL below 70 TAKE 1 TABLET BY MOUTH EVERY DAY IN THE MORNING 90 Tablet 3 08/15/2023 Active Insulin Glargine Solostar 100 UNIT/ML Subcutaneous Solution Pen-injector (Basaglar Pascale)Indication s:Type 2 diabetes mellitus with diabetic neuropathy, with long-term current use of insulin ([facility]) Inject 20 Units under the skin in the morning. 0 09/04/2023 Active Omeprazole 40 MG Oral Capsule Delayed Release (PriLOSEC) Take 1 Capsule by mouth in the morning. 1 hour before the first meal of the day. 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 associated with type 2 diabetes mellitus, unspecified retinopathy severity (HCC) 1.5 mg PERINEURAL PRN 06/13/2023 06/12/2024 Active documented as of this encounter (statuses as of 11/12/2023) Active Problems Problem Noted Date Diagnosed Date Body mass index (BMI) of 40.0 to 44.9 in adult 0 09/23/2023 Overview: Per Obesity protocol - Per Obesity protocol - Per Obesity protocol - - Venous stasis ulcer of right calf limited to breakdown of skin 09/20/2023 Anemia due to stage 3a chronic kidney disease Non-pressure chronic ulcer o f lower leg, limited to breakdown of skin 09/14/2022 Chronic venous hypertension (idiopathic) with ulcer of bilateral lower extremity (CODE) 09/14/2022 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, multiple sites, without tophus (tophi) 11/01/2021 Chronic right-sided heart failure 08/29/2021 Other specified peripheral vascular diseases Primary osteoarthritis of right wrist 05/03/2021 Carpal tunnel syndrome of right wrist 05/03/2021 Acute gout due to renal impairment involving rig ht wrist 03/15/2021 Non-pressure chronic ulcer o f unspecified part of right lower leg with unspecified severity 02/08/2021 Stage 3a chronic kidney disease 08/22/2020 Overview: Per CKD protocol 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 with ulcer other part of lower leg (CODE) 08/02/2020 Non-pressure chronic ulcer o f unspecified part of left lower leg with unspecified severity 09/16/2019 Hyperkalemia 06/16/2019 Renal calculi 06/16/2019 Overview: Non-obstructive. Noted on CT scan at [facility] 05/2019 Mild nonproliferative diabet ic retinopathy of left eye without macular edema associated with type 2 diabetes mellitus 01/08/2019 Iron deficiency anemia due to chronic blood loss 12/02/2018 HTN, goal below 140/90 08/13/2018 H/O amputation of lesser toe, unspecified latera lity 06/03/2018 Venous stasis ulcer of calf 10/04/2017 History of DVT (deep vein thrombosis) 07/30/2017 DM neuropathy, type II diabetes mellitus 016 Venous stasis dermatitis of both lower extremiti es 11/30/2015 Vitamin B12 deficiency 05/28/2013 Dyslipidemia, goal LDL below 100 05/28/2013 Venous insufficiency 04/23/2013 Type 2 diabetes mellitus wit h diabetic neuropathy, with long-term current use of insulin 06/09/2009 Overview: Per Diabetes Taxonomy. 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 of inactive term SPENCER (obstructive sleep apnea) 06/11/2001 Overview: CPAP 11 cwp? AHP Gout of wrist documented as of this encounter (statuses as of 11/12/2023) Resolved Problems Problem Noted Date Diagnosed Date Resolved Date Stage 3 chronic kidney disease 08/29/2021 09/27/2021 Chronic kidney disease, stage 3 unspecified 02/08/2021 02/23/2021 Morbid obesity with BMI of 45.0-49.9, adult 08/22/2020 09/26/2023 Overview: Per Obesity protocol - Per Obesity protocol - - Body mass index (BMI) of 50. 0 to 59.9 in adult 07/25/2020 08/25/2020 Overview: Per Obesity protocol - - ZAHRAA (acute kidney injury) 06/16/2019 Body mass index (BMI) of 45. 0 to 49.9 in adult 10/20/2018 07/28/2020 Overview: Per Obesity protocol #1 - Heart failure, right-sided 06/03/2018 0 11/27/2021 Morbid obesity due to excess calories 06/03/2018 03/14/2022 Kidney disease, chronic, sta ge III (GFR 30-59 ml/min) 10/04/2017 08/25/2020 Overview: Per CKD protocol BMI 50.0-59.9, adult 06/25/2017 019 Overview: Per Obesity protocol #1 Sensory peripheral neuropathy 05/08/2016 10/04/2017 Lumbar degenerative disc disease 03/28/2016 10/04/2017 Venous stasis dermatitis 11/09/2014 Persistent insomnia 06/29/2014 10/04/19 18 Restless legs syndrome 06/29/201405/15 DVT (deep venous thrombosis) 03/18/2012 07/30/2017 Adult body mass index 50.0-59.9 09/26/2010 06/28/2017 Overview: Per Obesity protocol #1 Edema 01/17/2010 11/09/2014 Ulcer of lower limb 01/17/2010 03/18/20 12 Obesity, morbid (more than 1 00 lbs over ideal weight or BMI > 40) 11/08/2009 09/26/2010 Overview: Per Obesity Taxonomy 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 of inactive term 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 of inactive term Anemia 06/11/2001 12/02/2018 THROMBOPHLEBITIS NOS 06/11/2001 012 Closed fracture of head of radius 07/03/2011 documented as of this encounter (statuses as of 11/12/2023) Immunizations Name Administration Dates Next Due COVID-19 mRNA, LNP-s, No Pre serve, 2-Dose Series (Pfizer) 06/20/2021,10/22/2020,09/26/2020 COVID-19, LNP-s, No Preserve , Jamie-sucrose, Ages 12+ (Pfizer) 03/13/2022 Covid-19, Mrna, Lnp-s, Pf, B ivalent, 30 Mcg, IM, 12 yrs and above (Pfizer) 09/20/2022 Pneumococcal Conjugate Vacci ne, 20-valent ([id number]) 03/14/2022 Pneumococcal Polysaccharide PPV23 (Pneumovax) 03/19/2006 Seasonal Influenza, PF, 6 M & above, IM , (FluLaval or Fluzone) 05/19/2021,04/22/2020,06/03/2019,06/03,07/30/2017 Seasonal Influenza, Quadriva lent Hd (Fluzone Hd) 05/15/2023,06/25/2022 Seasonal Influenza, Quadriva lent, No Preserve, IM 08/22/2016 Seasonal Influenza, Split, I IV3, With Preserve, Inj 04/26/2014,06/08/2013,07/28/2012,05/07,06/08/2010,05/31/2009,06/11/2008 ,06/17/2007 TD - Tetanus/Diptheria (ADULT) 08/12/2004 TDAP (age 10 and older)(Boostrix) 08/30/2020 TDAP (age 11 and older)(Adacel) 05/02/2010 Zoster Vaccine Recombinant (Shingrix) 01/29/2020 ,07/22/2019 documented as of this encounter Social History Tobacco Use Types Packs/Day Years Used Date Smoking Tobacco: Never Smokeless Tobacco: Never Alcohol Use Standard Drinks/Week Comments Yes 0 (1 standard drink = 0.6 oz pure alcohol) maybe once a month about 4 beers PHQ-2 Answer Date Recorded PHQ-2 Score 0 01/29/2020 Hunger Vital Sign Answer Date Recorded Worried About Running Out of Food in the Last Ye ar Never true 07/22/2019 Ran Out of Food in the Last Year Never true 07/22/2019 Sex and Gender Information Value Date Recorded Sex Assigned at Not on file Gender Identity Not on file Sexual Orientation Not on file Job Start Date Occupation Industry Not on file Not on file Not on file documented as of this encounter Last Filed Vital Signs Vital Sign Reading Time Taken Comments Blood Pressure 142/68 11/12/2023 11:11 AM EDT Pulse - - Temperature - - Respiratory Rate - - Oxygen Saturation - - Inhaled Oxygen Concentration - - Weight - - Height - - Body Mass Index - - documented in this encounter Nursing Notes * Pat Trent LPN - 11/12/2023 12:17 PM EDT 1115: Pt arrived for Retacrit injection. Hgb 9.4. BP WNL. Administered in MARLENE. Pt tolerated well. To return in 2 weeks. Discharged in stable condition. documented in this encounter Plan of Treatment Upcoming Encounters Date Type Department Care Team (Latest Contact Info) Description 4 10:20 AM EDT Laboratory Laboratory [address] [place] [phone] [address] [place] [address] 4 10:45 AM EDT Immunization/In jection Hematology/Onco logy Treatment, [place] [address] [place] [phone] Nurse, Med [address] [place] [address] 4 10:20 AM EDT Laboratory Laboratory [address] [place] [phone] [place] [address] 4 10:45 AM EDT Immunization/In jection Hematology/Onco logy Treatment, [place] [address] [facility] [place] [phone] Nurse, Med 4 [address] [facility] [place] [address] 4 11:40 AM EDT Office Visit Family Medicine [address] [place] [phone] [address] [place] [address] 4 10:30 AM EDT Laboratory Laboratory [address] [place] [phone] [place] [address] 4 10:00 AM EDT Immunization/In jection Hematology/Onco logy Treatment, [place] [address] [facility] [place] [phone] Nurse, Med 4 [address] [facility] [place] [address] 4 11:30 AM EDT Office Visit Ophthalmology, [facility] [address] [place] [address] Mika Diaz, DO [address] [place] [address] 4 2:00 PM EDT Office Visit Nephrology, [facility] [address] [facility] [place] [address] ZemaBeckie umanzor PA-C [address] [facility] [place] [address] 4 2:36 PM EDT Hospital Encounter OR [facility], Operating Room, [facility] - 4th Floor [address] [place] [address] Jayda Jeong, DO [address] [place] [address] 4 2:36 PM EDT - 4 3:09 PM EDT Surgery OR [facility], Operating Room, [facility] - 4th Floor [address] [address] Jayda Jeong, DO [address] [place] [address] ESOPHAGOGASTRODUODENOSCOPY (EGD), FLEXIBLE, TRANSORAL, DIAGNOSTIC 4 10:45 AM EDT Office Visit Hematology/Onco logy [facility] [address] [facility] [place] [phone] Fly Velazquez MD [address] [facility] [place] [address] 5 10:00 AM EDT Office Visit Sleep Disorders Ctr [facility] [address] [facility] [place] [phone] Dorothy Toscano CRNP [address] [facility] [place] [address] Scheduled Procedures Name Priority Associated Diagnoses Date/Ti me ESOPHAGOGASTRODUODENOSCOPY ( EGD), FLEXIBLE, TRANSORAL, DIAGNOSTIC Gastric ulcer 01/01/2024 2:36 PM EDT COLONOSCOPY FLEXIBLE PROXIMA L DIAGNOSTIC Recall History of colon polyps Health Maintenance Due Date Last Done Comments Depression Screening 01/28/2021 01/29/2020 Diabetic Foot Exam 03/14/2023 03/14/2022, 0 11/30/2015, 11/09/2014, Additional history exists COVID-19 Vaccine ( - 2022-24 season) 2023 09/20/2022, 03/13/2022, 06/20/2021, Additional history exists HbA1c 01/14/2024 07/15/2023, 08/0 03/2023, 09/18/2022, Additional history exists Albumin/Creatinine Ratio 02/20/2024 023, 03/14/2022, 05/19/2021, Additional history exists GFR 04/15/2024 10/14/2023, 08/13, 08/23/2023, Additional history exists CKD PHOS USE SMARTSET 17900 09/02/202408/13, 09/18/2022, 08/29/2021, Additional history exists Diabetic Eye Exam 10/23/2024 10/24/2023, , 10/09/2022, Additional history exists CKD HGB USE SMARTSET 00442 11/10/202411/10, 11/11/2023, 10/28/2023, Additional history exists COLONOSCOPY-EVERY 5 YRS AGES 18-100 02/09/2027 02/09/2022, 09/11/2018, 12/07/2008 Lipid Panel 02/11/2028 02/10/2023, 08/0 10/2021, 05/19/2021, Additional history exists DXA Scan 12/14/2028 12/14/2021 DTaP,Tdap,and Td Vaccines (3 - Td or Tdap) 08/30/2030 08/30/2020, 05/02/2010, 08/12/2004 Zoster Vaccines Completed 01/29/2020, 07/22/2019 COLONOSCOPY-EVERY 3 YRS AGES 18-100 Discontinued 02/09/2022, 09/11/2018, 12/07/2008 Pneumococcal Vaccine: 65+ Years Completed 03/14/2022, 03/19/2006 Influenza Vaccine (FLU shot) Completed 05/15/2023, 06/25/2022, 05/19/2021, Additional history exists GARDASIL-HPV IMMUNIZATION SERIES Aged Out No longer eligible based on patient's age to complete this topic Hepatitis B Aged Out No longer eligi ble based on patient's age to complete this topic MENINGOCOCCAL (MENACTRA/MENVEO) Aged Out No longer eligible based on patient's age to complete this topic documented as of this encounter Medical Devices Implanted Type Area Data Processing Auditor Device Identifier Shelf Expiration Date Model / Serial / Lot Envista Hydrophobic Acrylic Intraocular Lens Implanted:Qty: 1 on 12/25/2016 by Raul Neely MD at OR [facility] Right: Eye [employer] 11/09/2018 [id number] / [id number] Envista Mx60 +10.0 D Implanted:Qty: 1 on 01/29/2017 by Raul Neely MD at OR [facility] Left: Eye 11/09/2018 [id number] / [id number] / [id number] documented as of this encounter Visit Diagnoses Diagnosis Anemia due to stage 3a chronic kidney disease (HCC)- Primary Gastric ulcer Gastric ulcer, unspecified as acute or chronic, without mention of hemorrhage, perforation, or obstruction documented in this encounter Administered Medications Inactive Administered Medications - up to 3 most recent administrations Medication Order MAR Action Action Date Dose Rate Site Epoetin Gautam-epbx (Retacrit) 28612 UNIT/ML inj 40,000 Units 40,000 Units, Subcutaneous, ONCE, On Sat11/12/23 at 1145, For 1 dose Given 11/12/2023 11:15 AM EDT 40,000 Units Arm Right Upper documented in this encounter Advance Directives Latest Code Status on File Code Status Date Activated Date Inactivated Comments Full Code 09/26/2023 9:14 AM 09/26/2023 2:17 PM This order reflects the patients wishes and were consensually agreed upon. Question Answer Comments Discussion of Advance Directives occurred with: Not Discussed due to patient's condition Code Status History Code Status Date Activated Date Inactivated Comments Full Code 09/26/2023 8:39 AM 09/26/2023 9:14 AM This order reflects the patients wishes and were consensually agreed upon. Question Answer Comments Discussion of Advance Directives occurred with: Not Discussed due to patient's condition Full Code 01/29/2017 9:44 AM 01/29/2017 3:56 PM This order reflects the patients wishes and were consensually agreed upon. Full Code 01/24/2017 6:29 AM 01/24/2017 1:29 PM This order reflects the patients wishes and were consensually agreed upon. Full Code 12/25/2016 6:24 AM 12/25/2016 2:09 PM This order reflects the patients wishes and were consensually agreed upon. Care Teams Financial Advisor Relationship Specialty Start Date End Date Nancy Ryan DO [address] [place] [address] [place] [phone] PCP - General Internal Medicine 09/11/18 documented as of this encounter
--- OUTSIDE RECORDS SUMMARY | 2023-11-13 21:25 | External Medical Summary | Summary of Care ---
Author Name Unknown Organization [facility] Address [address] [place] [address] Phone [phone] Care Team Providers Care Obstetric Assistant Name Role Phone Lacy Ryananda Umro Primary Care Provider [phone] Reason for Visit * Reason Onset Date Comments Home Monitoring Alarm 11/04/2023 Encounter Details Date Type Department Care Team (Late st Contact Info) Description 11/04/2023 Home Monitoring Care Coordination [address] [place] [address] Diane Hernandez LPN HTN, goal below 140/90* Allergies No known active allergiesdocumented as of this encounter (statuses as of 11/05/2023) Medications Medication Sig Dispensed Refills Start Date End Date Status MULTIPLE VITAMIN PO TABS 1 TABLET DAILY 0 07/03/2011 Active OMEGA-3 FISH OIL 1000 MG PO CAPS Take one capsule by mouth daily 0 07/03/2011 Active Blood Glucose Monitoring Suppl ([employer] ULTRA SYSTEM) W/DEVICE KITIndications:DM type 2, goal A1c below 7 Use as directed 4 times a day. Use up to four times a day as directed. Diagnosis = E11.9 1 Kit 0 06/29/2015 Active dorzolamide-timolo l (COSOPT OCUMETER PLUS) 2.23-0.68% ophthalmic solution INSTILL 1 DROP INTO BOTH EYES BY OPHTHALMIC ROUTE ONCE IN THE [facility] AND THE SECOND DROP AROUND 5 PM 4 10/27/2018 Active Aspirin 81 MG Tablet Take 1 Tablet by mouth in the morning. 0 Active BD Pen Needle Wilda U/F 32G X 4 MM (Insulin Pen Needle)Indications :Type 2 diabetes mellitus with diabetic neuropathy, with long-term current use of insulin ([facility]),Type 2 diabetes mellitus with hemoglobin A1c goal of less than 7.0% ([facility]) Use once a day with basaglar. DX [...] EVERY DAY 90 Tablet 3 12/10/2022 Active OneTouch Verio In Vitro Strip (Glucose Blood) Use to test blood sugars twice a day. Dx. E11.9 300 Strip 1 03/13/2023 Active OneTouch Delica Lancets 30GIndications:Typ e 2 diabetes mellitus with diabetic neuropathy, with long-term current use of insulin ([facility]) Use TWICE a day to test glucose Diagnosis = E11.9 200 Each 3 03/19/2023 Active Ozempic (2 MG/DOSE) 8 MG/3ML Subcutaneous Solution Pen-injector (Semaglutide (2 MG/DOSE))Indicatio ns:Type 2 diabetes mellitus with diabetic neuropathy, with long-term current use of insulin ([facility]) Inject 2 mg under the skin once [...] neuropathy, with long-term current use of insulin ([facility]) Take 1 Tablet by mouth 2 times a day with morning and evening meals. 180 Tablet 3 05/17/2023 Active Losartan Potassium 50 MG Oral Tablet (Cozaar) Take 0.5 Tablets by mouth in the morning. 0 06/04/2023 Active Epoetin Gautam-epbx 39285 UNIT/ML Injection Solution (Retacrit) Inject 2 mL [...] Glargine Solostar 100 UNIT/ML Subcutaneous Solution Pen-injector (Flavia Ashraf)Indication s:Type 2 diabetes mellitus with diabetic neuropathy, with long-term current use of insulin (HCC) Inject 20 Units under the skin in [...] as of this encounter (statuses as of 11/05/2023) Active Problems Problem Noted Date Diagnosed Date [...] Overview: Non-obstructive. Noted on CT scan at [facility] 05/2019 Mild nonproliferative diabet ic [...] as of this encounter (statuses as of 11/05/2023) Resolved Problems Problem Noted Date Diagnosed Date [...] Obesity Taxonomy 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 of inactive term [facility] current use of ant icoagulant therapy 03/16/2005 [...] as of this encounter (statuses as of 11/05/2023) Immunizations Name Administration Dates Next Due COVID-19 mRNA, LNP-s, No Pre serve, 2-Dose Series (Videostrip) 06/20/2021,10/22/2020,09/26/2020 COVID-19, LNP-s, No Preserve , Jamie-sucrose, Ages 12+ (Pfizer) 03/13/2022 Covid-19, Mrna, Lnp-s, Pf, B ivalent, 30 Mcg, IM, 12 yrs and above (Videostrip) 09/20/2022 Pneumococcal Conjugate Vacci ne, 20-valent ([id number]) 03/14/2022 Pneumococcal Polysaccharide PPV23 (Pneumovax) 03/19/2006 Seasonal [...] on file documented as of this encounter Progress Notes * Jnea Haas, [facility] - 11/05/2023 12:27 PM EDT Systolic Diastolic Pulse Systolic Diastolic 114 72 Average 135 77 133 73 146 75 High 90 90 144 76 Low 72 72 135 77 140 90 Range 18 18 Count 6 6 BP at goal. Recommend continuing to monitor at this time. Hypertension Medications: Torsemide 20mg daily Losartan 50mg 1/2 tablet daily Carvedilol 6.25mg BID Chlorthalidone 25mg daily Jena Haas RPh, PharmD Clinical Pharmacist - Solar Sales Advisor Medication Therapy [facility] 11/05/2023, 12:27 PM [phone] * Diane Hernandez LPN - 11/04/2023 12:50 PM EDT Ronnie Wu [phone] Ronnie Wu is currently participating in the [employer] Hypertension Management Program and had areading on 11/02/23 of . Pt has alerted for an Average BP over 7 days > 140/90 . Parameters are currently set as follows: Average BP over 7 days > 140/90 Singular Systolic BP Reading < 90 or > 180 Singular Diastolic BP Reading <50 or > 120 Patient is not reporting new symptoms or concerns. The patient does have all his blood pressure medications and is taking them as prescribed. Please review the recent history of home RPM readings in Epic Synopsis Flowsheets and work with your clinical staff if any additional actions or interventions are required. If you would like to customize the alert parameters and/or instructions for this patient, please let me know and we can have them changed. Thank you! Diane Hernandez LPN documented in this encounter Plan of Treatment Upcoming Encounters Date Type Department Care Team (Latest Contact Info) Description 4 9:30 AM EDT Laboratory Laboratory [address] [place] [phone] [place] [address] 4 10:45 AM EDT Immunization/In jection Hematology/Onco logy Treatment, [place] [address] [place] [phone] [facility] [address] 4 11:40 AM EDT Office Visit Family Medicine [address] [place] [phone] [address] [place] [address] 4 11:30 AM EDT Office Visit Ophthalmology, [facility] [address] [place] [address] Mika Diaz, DO [address] [place] [address] 4 2:00 PM EDT Office Visit Nephrology, [facility] [address] [facility] [place] [address] ZemaitisBeckie PA-C [address] [facility] [place] [address] 4 2:36 PM EDT Hospital Encounter OR GL, Operating Room, [facility] - 4th Floor [address] [place] [address] Jayda Jeong, DO [address] [place] [address] 4 2:36 PM EDT - 4 3:09 PM EDT [facility], Operating Room, [facility] - 4th Floor [address] [place] [address] Jayda Jeong, DO [address] [place] [address] ESOPHAGOGASTRODUODENOSCOPY (EGD), FLEXIBLE, TRANSORAL, DIAGNOSTIC 4 10:45 AM EDT [facility] [address] [place], [place] [address] Fly Velazquez MD [address] [place] [address] 10:00 AM EDT Office Visit Sleep Disorders Ctr [facility] [address] [place] [phone] Dorothy Toscano CRNP [address] [place] [address] Scheduled Procedures Name Priority Associated Diagnoses Date/Ti me ESOPHAGOGASTRODUODENOSCOPY ( EGD), FLEXIBLE, TRANSORAL, DIAGNOSTIC Gastric ulcer 01/01/2024 2:36 PM EDT COLONOSCOPY FLEXIBLE PROXIMA L DIAGNOSTIC Recall History of colon polyps Health Maintenance Due Date Last Done Comments Depression Screening 01/28/2021 01/29/2020 Diabetic Foot Exam 03/14/2023 03/14/2022, 0 11/30/2015, 11/09/2014, Additional history exists COVID-19 Vaccine ( season) 2023 09/20/2022, 03/13/2022, 06/20/2021, Additional history exists HbA1c 01/14/2024 07/15/2023, 08/0 03/2023, 09/18/2022, Additional history exists Albumin/Creatinine Ratio 02/20/2024 023, 03/14/2022, 05/19/2021, Additional history exists GFR 04/15/2024 10/14/2023, 08/13, 08/23/2023, Additional history exists CKD PHOS USE SMARTSET 67575 09/02/202408/13, 09/18/2022, 08/29/2021, Additional history exists Diabetic Eye Exam 10/23/2024 10/24/2023, , 10/09/2022, Additional history exists CKD HGB USE SMARTSET 52324 10/27/202410/27, 10/28/2023, 10/14/2023, Additional history exists COLONOSCOPY-EVERY 5 YRS AGES [...] this encounter Medical Devices Implanted Type Area Inlayer Silver Device Identifier Shelf Expiration Date Model / Serial / Lot Envista Hydrophobic Acrylic Intraocular Lens Implanted:Qty: 1 on 12/25/2016 by Raul Neely MD at OR [facility] Right: Eye [employer] 11/09/2018 [id number] / [id number] / [id number] Envista Mx60 +10.0 D Implanted:Qty: 1 on 01/29/2017 by Raul Neely MD at OR [facility] Left: Eye 11/09/2018 [id number] / [id number] / [id number] documented as of this encounter Visit Diagnoses Diagnosis HTN, goal below 140/90- Primary Unspecified essential hypertension Gastric ulcer Gastric ulcer, unspecified as acute or chronic, without mention of hemorrhage, perforation, or obstruction documented in this encounter Advance Directives Latest [...] and were consensually agreed upon. Care Teams Obstetric Assistant Relationship Specialty Start Date End Date Nancy Ryan DO [address] [place] [address] [place] [address] PCP - General Internal Medicine 09/11/18 documented as of this encounter
--- OUTSIDE RECORDS SUMMARY | 2023-11-13 21:25 | External Medical Summary | Summary of Care ---
Author Name Unknown Organization [facility] Address [address] [place] [address] Phone [phone] Care Team Providers Care Freight Inspector Name Role Phone RyanNancy martinez Primary Care Provider Reason for Visit * Reason Onset Date Comments Mycode Lab Reorder 11/11/2023 Encounter Details Date Type Department Care Team (Late st Contact Info) Description 11/11/2023 Orders Only Outcomes Research Department [address], [place] [phone] Mellisa Lazar CHRA MyCode Research Other*[id number]* Allergies No known active allergiesdocumented as of this encounter (statuses as of 11/11/2023) Medications Medication Sig Dispensed Refills Start Date End Date Status MULTIPLE VITAMIN PO TABS 1 TABLET DAILY 0 07/03/2011 Active OMEGA-3 FISH OIL 1000 MG PO CAPS Take one capsule by mouth daily 0 07/03/2011 Active Blood Glucose Monitoring Suppl ([employer] ULTRA SYSTEM) W/DEVICE KITIndications:DM type 2, goal [...] neuropathy, with long-term current use of insulin ([facility]),Type 2 diabetes mellitus with hemoglobin A1c goal of less than 7.0% ([facility]) Use once a day with basaglar. [...] neuropathy, with long-term current use of insulin ([facility]) Use TWICE a day to test glucose Diagnosis = E11.9 200 Each 3 03/19/2023 Active Ozempic (2 MG/DOSE) 8 MG/3ML Subcutaneous Solution Pen-injector (Semaglutide (2 MG/DOSE))Indicatio ns:Type 2 diabetes mellitus with diabetic neuropathy, with long-term current use of insulin ([facility]) Inject 2 mg under the skin [...] neuropathy, with long-term current use of insulin ([facility]) Take 1 Tablet by mouth 2 times a day with morning and evening meals. 180 Tablet 3 05/17/2023 Active Losartan Potassium 50 MG Oral Tablet (Cozaar) Take 0.5 Tablets by mouth in the morning. 0 06/04/2023 Active Epoetin Gautam-epbx 09573 UNIT/ML Injection Solution (Retacrit) Inject 2 mL [...] as of this encounter (statuses as of 11/11/2023) Active Problems Problem Noted Date Diagnosed Date [...] Overview: Non-obstructive. Noted on CT scan at [facility] 05/2019 Mild nonproliferative diabet ic retinopathy of [...] as of this encounter (statuses as of 11/11/2023) Resolved Problems Problem Noted Date Diagnosed Date [...] Obesity Taxonomy 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 of inactive term residential current use of ant icoagulant therapy 03/16/2005 [...] as of this encounter (statuses as of 11/11/2023) Immunizations Name Administration Dates Next Due COVID-19 mRNA, LNP-s, No Pre serve, 2-Dose Series (Only-apartments) 06/20/2021,10/22/2020,09/26/2020 COVID-19, LNP-s, No Preserve , Jamie-sucrose, Ages 12+ (Pfizer) 03/13/2022 Covid-19, Mrna, Lnp-s, Pf, B ivalent, 30 Mcg, IM, 12 yrs and above (Only-apartments) 09/20/2022 Pneumococcal Conjugate Vacci ne, 20-valent ([id number]) 03/14/2022 Pneumococcal Polysaccharide PPV23 (Pneumovax) 03/19/2006 Seasonal [...] as of this encounter Progress Notes * Mellisa Lazra CHRA - 11/11/2023 9:38 AM EDT MyCode lab reordered. documented in this encounter Plan of Treatment Upcoming Encounters Date Type Department Care Team (Latest Contact Info) Description 4 10:45 AM EDT Immunization/I njection Hematology/Onco logy Treatment, [place] [facility] [phone] Nurse, Med [address] [facility] [place] [address] 4 11:40 AM EDT Office Visit [address] [phone] Marry Hansen [address] [place] [address] 4 11:30 AM EDT Office Visit Ophthalmology, [facility] [address] [place] [address] Mika Diaz, DO [address] [place] [address] 4 2:00 PM EDT Office Visit Nephrology, [facility] [address] [facility] [place] [address] ZemaitisBeckie PA-C [address] [facility] [place] [address] 4 2:36 PM EDT Hospital Encounter OR GL, Operating Room, [facility] - 4th Floor [address] [place] [address] Jayda Jeong, DO [address] [place] [address] 4 2:36 PM EDT - 4 3:09 PM EDT Surgery OR [facility], Operating Room, [facility] - 4th Floor [address] [place] [address] Jayda Jeong, DO [address] [place] [address] ESOPHAGOGASTRODUODENOSCOPY (EGD), FLEXIBLE, TRANSORAL, DIAGNOSTIC 4 10:45 AM EDT Office Visit Hematology/Onco logy [facility] [address] [place] [address] Fly Velazquez MD [address] [facility] [place], [place] [address] 5 10:00 AM EDT Office Visit Sleep Disorders Ctr [facility] 132 [facility] [place] [phone] Dorothy Toscano CRNP 132 [facility] [place] [address] Scheduled Orders Name Type Priority Associated Diagnoses Orde r Schedule MYCODE SUBSEQUENT ADULT Lab Routine MyCode Research Other*[id number] Every 6 Months for 2 Occurrences starting 11/11/2023 until 11/30/2024 Scheduled Procedures Name Priority Associated Diagnoses Date/Ti [...] 06/20/2021, Additional history exists HbA1c 01/14/2024 07/15/2023, 08/03/2023, 09/18/2022, Additional history exists Albumin/Creatinine Ratio 02/20/2024 023, 03/14/2022, 05/19/2021, Additional history exists GFR 04/15/2024 10/14/2023, 08/13, 08/23/2023, Additional history exists CKD PHOS USE SMARTSET 83088 09/02/202408/13, 09/18/2022, 08/29/2021, Additional history exists Diabetic Eye Exam 10/23/2024 10/24/2023, , 10/09/2022, Additional history exists CKD HGB USE SMARTSET 05962 10/27/202410/27, 10/28/2023, 10/14/2023, Additional history exists COLONOSCOPY-EVERY 5 YRS AGES 18-100 02/09/2027 02/09/2022, 09/11/2018, 12/07/2008 Lipid Panel 02/11/2028 02/10/2023, 08/10/2021, 05/19/2021, Additional history exists DXA Scan 12/14/2028 [...] this encounter Medical Devices Implanted Type Area Telephone Order Clerk Device Identifier Shelf Expiration Date Model / Serial / Lot Envista Hydrophobic Acrylic Intraocular Lens Implanted:Qty: 1 on 12/25/2016 by Raul Neely MD at OR [facility] Right: Eye [employer] 11/09/2018 [id number] / [id number] / [id number] Envista Mx60 +10.0 D Implanted:Qty: 1 on 01/29/2017 by Raul Neely MD at OR [facility] Left: Eye 11/09/2018 [id number] / [id number] / [id number] documented as of this encounter Visit Diagnoses Diagnosis MyCode Research Other*[id number]- Primary Gastric ulcer Gastric ulcer, unspecified as [...] and were consensually agreed upon. Care Teams Freight Inspector Relationship Specialty Start Date End Date Nancy Ryan DO [address] [place] [address] [place] [address] PCP - General Internal Medicine 09/11/18 documented as of this encounter
--- OUTSIDE RECORDS SUMMARY | 2023-11-13 21:25 | External Medical Summary ---
Author Name Unknown Address Unknown Organization [id number]:[facility] [address] [facility] [address] Laboratory Report Ordering Provider Test Date Status JANE WOODRUFF 11/11/2023 09:39:05 Final Observation Date Value Abnormality Reference (Units ) Status WBC, Total 11/11/2023 09:39:05 6.85 4.00-10.80 (K/uL) Final RBC 11/11/2023 09:39:05 2.87 4.50-5.25 (M/uL) Final Hemoglobin 11/11/2023 09:39:05 9.4 Below low normal 14.0-16.8 (g/dL) Final HCT 11/11/2023 09:39:05 28.7 Below low normal 40.0-48.4 (%) Final MCV 11/11/2023 09:39:05 100.0 82.0-99.5 (fL) Final MCH 11/11/2023 09:39:05 32.8 27.0-34.0 (pg) Final MCHC 11/11/2023 09:39:05 32.8 32.0-36.0 (g/dL) Final RDW 11/11/2023 09:39:05 18.9 11.5-15.5 (%) Final Platelets 11/11/2023 09:39:05 207 140-400 (K/uL) Final MPV 11/11/2023 09:39:05 10.7 6.6-11.1 (fL) Final Nucleated erythrocytes/100 leukocytes [Ratio] in Blood by Automated count 11/11/2023 09:39:05 0 <=0 (/100 WBCs) Final Performing Location [facility] [address] [facility] [address]
--- OUTSIDE RECORDS SUMMARY | 2023-11-13 21:25 | External Medical Summary ---
Author Name Unknown Address Unknown Organization [id number]:[facility] [place] [facility] [address] [facility] [address] Laboratory Report Ordering Provider Test Date Status JANE WOODRUFF 11/11/2023 09:39:05 Final Observation Date Value Abnormality Reference (Units ) Status SYNC LEUKOCYTES IN BLOOD BY AUTOMATED COUNT 11/11/2023 09:39:05 6.85 4.00-10.80 (K/uL) Final Segs 11/11/2023 09:39:05 73.5 40.0-75.0 (%) Final Lymphs % 11/11/2023 09:39:05 15.5 Below low normal 18.0-42.0 (%) Final Monos 11/11/2023 09:39:05 6.6 1.0-11.0 (%) Final Eosinophils 11/11/2023 09:39:05 3.4 0.0-6.0 (%) Final Basos 11/11/2023 09:39:05 0.7 0.0-2.0 (%) Final Immature Granulocyte, Percent 11/11/2023 09:39:05 0.3 0.0-2.0 (%) Final Absolute Segs 11/11/2023 09:39:05 5.04 1.80-7.70 (K/uL) Final Lymphs, absolute 11/11/2023 09:39:05 1.06 1.00-4.80 (K/ul) Final Monos, Abs 11/11/2023 09:39:05 0.45 0.00-1.10 (K/uL) Final Eos, Abs 11/11/2023 09:39:05 0.23 0.00-0.70 (K/uL) Final Basos, Abs 11/11/2023 09:39:05 0.05 0.00-0.20 (K/uL) Final Immature Granulocytes, Number 11/11/2023 09:39:05 0.02 0.00-0.20 (K/uL) Final Performing Location [facility] [place] - [facility] [place] [address] [facility] [address]
--- OUTSIDE RECORDS SUMMARY | 2023-11-13 21:25 | External Medical Summary | Summary of Care ---
Author Name Unknown Organization [facility] Address [address] [place] [address] Phone [phone] Care Team Providers Care Fish And Wildlife Biologist Name Role Phone Nancy Ryan DO Primary Care Provider Reason for Visit * Reason Comments Outpatient Testing Encounter Details Date Type Department Care Team (Late st Contact Info) Description 11/11/2023 9:30 AM EDT Laboratory Laboratory [address] [place] [phone] [facility] [address] [place] [address] Anemia due to stage 3a chronic kidney disease (HCC) Allergies No known active allergiesdocumented as of this encounter (statuses as of 11/11/2023) Medications Medication Sig Dispensed Refills Start Date End Date Status MULTIPLE VITAMIN PO TABS 1 TABLET DAILY 0 07/03/2011 Active OMEGA-3 FISH OIL 1000 MG PO CAPS Take one capsule by mouth daily 0 07/03/2011 Active Blood Glucose Monitoring Suppl ([employer] ULTRA SYSTEM) W/DEVICE KITIndications:DM type 2, goal [...] with long-term current use of insulin (HCC) Take 1 Tablet by mouth 2 times a day with morning and evening meals. 180 Tablet 3 05/17/2023 Active Losartan Potassium 50 MG Oral Tablet (Cozaar) Take 0.5 Tablets by mouth in the morning. 0 06/04/2023 Active Epoetin Gautam-epbx 07309 UNIT/ML Injection Solution (Retacrit) Inject 2 mL [...] Glargine Solostar 100 UNIT/ML Subcutaneous Solution Pen-injector (Basaglradha Ashraf)Indication s:Type 2 diabetes mellitus with diabetic [...] Per CKD protocol BMI 50.0-59.9, adult 06/25/2017 03/12/2 019 Overview: Per Obesity protocol #1 Sensory [...] Obesity Taxonomy 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 of inactive term nursing home current use of ant icoagulant therapy 03/16/2005 [...] mRNA, LNP-s, No Pre serve, 2-Dose Series ([employer]) 06/20/2021,10/22/2020,09/26/2020 COVID-19, LNP-s, No Preserve , Jamie-sucrose, Ages 12+ ([employer]) 03/13/2022 Covid-19, Mrna, Lnp-s, Pf, B ivalent, 30 Mcg, IM, 12 yrs and above (Pfizer) 09/20/2022 Pneumococcal Conjugate Vacci ne, 20-valent ([id number]) 03/14/2022 Pneumococcal Polysaccharide PPV23 (Pneumovax) 03/19/2006 Seasonal [...] on file documented as of this encounter Plan of Treatment Upcoming Encounters Date Type Department Care Team (Latest Contact Info) Description 4 10:45 AM EDT Immunization/I njection Hematology/Onco logy Treatment, [address] [phone] Nurse, Med 4 [address] [facility] [place] [address] 4 11:40 AM EDT Office Visit Family Medicine [address] [place] [phone] Marry Hansen [address] [place] [address] 4 11:30 AM EDT Office Visit Ophthalmology, [facility] [address] [place] [address] Mika Diaz, DO [address] [place] [address] 4 2:00 PM EDT Office Visit Nephrology, [facility] [address] [facility] [place] [address] ZemaitisBeckie PA-C [address] [facility] [place] [address] 4 2:36 PM EDT Hospital Encounter OR [facility], Operating Room, [facility] - 4th Floor [address] [place] [address] Jayda Jeong, DO [address] [place] [address] 4 2:36 PM EDT - 4 3:09 PM EDT Surgery OR [facility], Operating Room, [facility] - 4th Floor [address] [place] [address] Jayda Jeong, DO [address] [place] [address] ESOPHAGOGASTRODUODENOSCOPY (EGD), FLEXIBLE, TRANSORAL, DIAGNOSTIC 4 10:45 AM EDT Office Visit Hematology/Onco logy [place] [facility] [place], [place] [address] Fly Velazquez MD [address] [facility] [place] [address] 10:00 AM EDT Office Visit Sleep Disorders Ctr [facility] [place] [address] [place] [phone] Dorothy Toscano CRNP [address] [place] [address] Pending Results Name Type Priority Associated Diagnoses Date /Time CBC WITH WBC DIFFERENTIAL Lab STAT Anemia due to stage 3a chronic kidney disease (HCC) 11/11/2023 9:39 AM EDT CBC Lab STAT Anemia due to stage 3a chronic kidney disease (HCC) 11/11/2023 9:39 AM EDT DIFFERENTIAL, AUTOMATED Lab STAT Anemia due to stage 3a chronic kidney disease (HCC) 11/11/2023 9:39 AM EDT Scheduled Procedures Name Priority Associated Diagnoses Date/Ti [...] 06/20/2021, Additional history exists HbA1c 01/14/2024 07/15/2023, 0803/2023, 09/18/2022, Additional history exists Albumin/Creatinine Ratio 02/20/2024 023, 03/14/2022, 05/19/2021, Additional history exists GFR 04/15/2024 10/14/2023, 08/13, 08/23/2023, Additional history exists CKD PHOS USE SMARTSET 26165 09/02/202408/13, 09/18/2022, 08/29/2021, Additional history exists Diabetic Eye Exam 10/23/2024 10/24/2023, , 10/09/2022, Additional history exists CKD HGB USE SMARTSET 12905 10/27/202410/27, 10/28/2023, 10/14/2023, Additional history exists COLONOSCOPY-EVERY [...] this encounter Medical Devices Implanted Type Area Residential Program Coordinator Device Identifier Shelf Expiration Date Model / Serial / Lot Envista Hydrophobic Acrylic Intraocular Lens Implanted:Qty: 1 on 12/25/2016 by Raul Neely MD at OR [facility] Right: Eye [employer] 11/09/2018 [id number] / [id number] / [id number] Envista Mx60 +10.0 D Implanted:Qty: 1 on 01/29/2017 by Raul Neely MD at [facility] Left: Eye 11/09/2018 [id number] / [id number] / [id number] documented as of this encounter Visit Diagnoses Diagnosis Anemia due to stage 3a chronic kidney disease (HCC) Gastric ulcer Gastric ulcer, unspecified as acute [...] and were consensually agreed upon. Care Teams Fish And Wildlife Biologist Relationship Specialty Start Date End Date Nancy Ryan DO [address] [place] [address] [place] [address] PCP - General Internal Medicine 09/11/18 documented as of this encounter
--- OUTSIDE RECORDS SUMMARY | 2023-11-13 21:25 | External Medical Summary | Summary of Care ---
Author Name Unknown Organization [facility] Address [address] [place] [address] Phone [phone] Care Team Providers Care Mechanical Maintenance Supervisor Name Role Phone Lacy Ryanraheem Muro Primary Care Provider Reason for Visit * Reason Onset Date Comments Home Monitoring Alarm 11/04/2023 Encounter Details Date Type Department Care Team (Late st Contact Info) Description 11/04/2023 Home Monitoring Care Coordination [address] [place] [address] Diane Hernandez LPN HTN, goal below 140/90* Allergies No known active allergiesdocumented as of this encounter (statuses as of 11/04/2023) Medications Medication Sig Dispensed Refills Start Date End Date Status MULTIPLE VITAMIN PO TABS 1 TABLET DAILY 0 07/03/2011 Active OMEGA-3 FISH OIL 1000 MG PO CAPS Take one capsule by mouth daily 0 07/03/2011 Active Blood Glucose Monitoring Suppl ([employer] ULTRA SYSTEM) W/DEVICE KITIndications:DM type 2, goal A1c below 7 Use as directed 4 times a day. Use up to four times a day as directed. Diagnosis = E11.9 1 Kit 0 06/29/2015 Active dorzolamide-timolo l (COSOPT OCUMETER PLUS) 2.23-0.68% ophthalmic solution INSTILL 1 DROP INTO BOTH EYES BY OPHTHALMIC ROUTE ONCE IN THE [facility] AND THE SECOND DROP AROUND 5 PM 4 10/27/2018 Active Aspirin 81 MG Tablet Take 1 Tablet by mouth in the morning. 0 Active BD Pen Needle Wilda U/F 32G X 4 MM (Insulin Pen Needle)Indications :Type 2 diabetes mellitus with diabetic neuropathy, with long-term current use of insulin ([facility]),Type 2 diabetes mellitus with hemoglobin A1c goal of less than 7.0% ([facility]) Use once a day with basaglar. DX [...] neuropathy, with long-term current use of insulin ([facility]) Use TWICE a day to test glucose Diagnosis = E11.9 200 Each 3 03/19/2023 Active Ozempic (2 MG/DOSE) 8 MG/3ML Subcutaneous Solution Pen-injector (Semaglutide (2 MG/DOSE))Indicatio ns:Type 2 diabetes mellitus with diabetic neuropathy, with long-term current use of insulin ([facility]) Inject 2 mg under the skin once [...] neuropathy, with long-term current use of insulin ([facility]) Take 1 Tablet by mouth 2 times a day with morning and evening meals. 180 Tablet 3 05/17/2023 Active Losartan Potassium 50 MG Oral Tablet (Cozaar) Take 0.5 Tablets by mouth in the morning. 0 06/04/2023 Active Epoetin Gautam-epbx 82941 UNIT/ML Injection Solution (Retacrit) Inject 2 mL [...] as of this encounter (statuses as of 11/04/2023) Active Problems Problem Noted Date Diagnosed Date [...] as of this encounter (statuses as of 11/04/2023) Resolved Problems Problem Noted Date Diagnosed Date [...] Obesity Taxonomy 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 of inactive term snf current use of ant icoagulant therapy 03/16/2005 [...] as of this encounter (statuses as of 11/04/2023) Immunizations Name Administration Dates Next Due COVID-19 mRNA, LNP-s, No Pre serve, 2-Dose Series ([employer]) 06/20/2021,10/22/2020,09/26/2020 COVID-19, LNP-s, No Preserve , Jamie-sucrose, Ages 12+ (Pfizer) 03/13/2022 Covid-19, Mrna, Lnp-s, Pf, B ivalent, 30 Mcg, IM, 12 yrs and above ([facility]) 09/20/2022 Pneumococcal Conjugate Vacci ne, 20-valent ([id number]) 03/14/2022 Pneumococcal Polysaccharide PPV23 (Pneumovax) 03/19/2006 Seasonal [...] as of this encounter Progress Notes * Diane Hernandez LPN - 11/04/2023 12:50 PM EDT Ronnie Wu [id number] Ronnie Wu is currently participating in the [employer] Hypertension Management Program and had areading on 11/02/23 of 144/76. Pt has alerted for an Average BP [...] Description 4 9:30 AM EDT Laboratory Laboratory [address] [place] [phone] [facility] [address] [place] [address] 4 10:45 AM EDT Immunization/[facility] [address] [place] [phone] Nurse, Med [address] [place], [place] [address] [address] 4 11:40 AM EDT Office Visit Family Medicine [address] [phone] Marry Hansen [address] [place] [address] 4 11:30 AM EDT Office Visit Ophthalmology, [facility] [address] [place] [address] Mika Diaz, [address] [place] [address] 4 2:00 PM EDT Office Visit Nephrology, [facility] [place] [address] ZeBeckie cruz PA-C [address] [place] [place] [address] 4 2:36 PM EDT Hospital Encounter OR [facility], Operating Room, [facility] - 4th Floor [address] [place] [address] Jayda Jeong, DO [address] [place] [address] 4 2:36 PM EDT - 4 3:09 PM EDT Surgery OR [facility], Operating Room, [facility] - 4th Floor [address] [place] [address] Jayda Jeong, DO [address] [place] [address] ESOPHAGOGASTRODUODENOSCOPY (EGD), FLEXIBLE, TRANSORAL, DIAGNOSTIC 4 10:45 AM EDT Office Visit [facility] [place] [place] [address] [facility] [place] [phone] Fly Velazquez MD [address] [facility] [place] [address] 5 10:00 AM EDT Office Visit Sleep Disorders Ctr [facility] [address] [place] [phone] Dorothy Toscano CRNP [address] [place] [address] Scheduled Procedures Name Priority Associated Diagnoses Date/Ti me ESOPHAGOGASTRODUODENOSCOPY ( EGD), FLEXIBLE, TRANSORAL, DIAGNOSTIC Gastric ulcer 01/01/2024 2:36 PM EDT COLONOSCOPY FLEXIBLE PROXIMA L DIAGNOSTIC Recall History of colon polyps Health Maintenance Due Date Last Done Comments Depression Screening 01/28/2021 01/29/2020 Diabetic Foot Exam 03/14/2023 03/14/2022, 0 11/30/2015, 11/09/2014, Additional history exists COVID-19 Vaccine (2022- season) 2023 09/20/2022, 03/13/2022, 06/20/2021, Additional history exists HbA1c 01/14/2024 07/15/2023, 08/0 03/2023, 09/18/2022, Additional history exists Albumin/Creatinine Ratio 02/20/2024 023, 03/14/2022, 05/19/2021, Additional history exists GFR 04/15/2024 10/14/2023, 08/13, 08/23/2023, Additional history exists CKD PHOS USE SMARTSET 02577 09/02/202408/13, 09/18/2022, 08/29/2021, Additional history exists Diabetic Eye Exam 10/23/2024 10/24/2023, , 10/09/2022, Additional history exists CKD HGB USE SMARTSET 42516 10/27/202410/27, 10/28/2023, 10/14/2023, Additional history exists COLONOSCOPY-EVERY [...] this encounter Medical Devices Implanted Type Area Architectural Engineer Device Identifier Shelf Expiration Date Model / Serial / Lot Envista Hydrophobic Acrylic Intraocular Lens Implanted:Qty: 1 on 12/25/2016 by Raul Neely MD at OR [facility] Right: Eye [employer] 11/09/2018 [id number] / [id number] / [id number] [employer]ista Mx60 +10.0 D Implanted:Qty: 1 on 01/29/2017 by Raul Neely MD at OR [facility] Left: Eye 11/09/2018 [id number] / [id number] / [id number] documented as of this encounter Visit Diagnoses [...] and were consensually agreed upon. Care Teams Mechanical Maintenance Supervisor Relationship Specialty Start Date End Date Nancy Ryan DO [address] [place] [address] [place] [address] PCP - General Internal Medicine 09/11/18 documented as of this encounter
--- OUTSIDE RECORDS SUMMARY | 2023-11-13 21:26 | External Medical Summary | Summary of Care ---
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)*; 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); Encounter for diabetes type 2 eye exam (HCC) Allergies No known active allergiesdocumented as of this encounter (statuses as of 10/24/2023) Medications Medication Sig Dispensed Refills Start Date End Date Status MULTIPLE VITAMIN PO TABS 1 TABLET DAILY 0 07/03/2011 Active OMEGA-3 FISH OIL 1000 MG PO CAPS Take one capsule by mouth daily 0 07/03/2011 Active Blood Glucose Monitoring Suppl (Symb[employer] ULTRA SYSTEM) W/DEVICE KITIndications:DM type 2, goal [...] neuropathy, with long-term current use of insulin ([facility]),Type 2 diabetes mellitus with hemoglobin A1c goal of less than 7.0% (HCC) Use once a day with basaglar. DX [...] EVERY DAY 90 Tablet 3 12/10/2022 Active Carvedilol 6.25 MG Oral Tablet (Coreg) TAKE 1 TABLET BY MOUTH TWICE A DAY WITH BREAKFAST AND DINNER 180 Tablet 3 12/10/2022 Active 7writeTouch Verio In Vitro Strip (Glucose Blood) Use to test blood sugars twice a day. Dx. E11.9 300 Strip 1 03/13/2023 Active 7writeTouch Delica Lancets 30GIndications:Typ e 2 diabetes mellitus with diabetic neuropathy, with long-term current use of insulin ([facility]) Use TWICE a day to test glucose Diagnosis = E11.9 200 Each 3 03/19/2023 Active Ozempic (2 MG/DOSE) 8 MG/3ML Subcutaneous Solution Pen-injector (Semaglutide (2 MG/DOSE))Indicatio ns:Type 2 diabetes mellitus with diabetic neuropathy, with long-term current use of insulin ([facility]) Inject 2 mg under the [...] neuropathy, with long-term current use of insulin ([facility]) Take 1 Tablet by mouth 2 times a day with morning and evening meals. 180 Tablet 3 05/17/2023 Active Losartan Potassium 50 MG Oral Tablet (Cozaar) Take 0.5 Tablets by mouth in the morning. 0 06/04/2023 Active Epoetin Gautam-epbx 55367 UNIT/ML Injection Solution (Retacrit) Inject 2 mL [...] neuropathy, with long-term current use of insulin ([facility]) Inject 20 Units under the skin in the morning. 0 09/04/2023 Active Omeprazole 40 MG Oral Capsule Delayed Release (PriLOSEC) Take 1 Capsule by mouth in the morning. 1 hour before the first meal of the day. 90 Capsule 3 10/01/2023 Active Hospital, Clinic, or Other Facility Administered [...] as of this encounter (statuses as of 10/24/2023) Active Problems Problem Noted Date Diagnosed Date [...] Overview: Non-obstructive. Noted on CT scan at [facility] 05/2019 Mild nonproliferative diabet ic [...] as of this encounter (statuses as of 10/24/2023) Resolved Problems Problem Noted Date Diagnosed Date [...] Obesity Taxonomy 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 of inactive term senior living current use of ant icoagulant therapy 03/16/2005 [...] as of this encounter (statuses as of 10/24/2023) Immunizations Name Administration Dates Next Due COVID-19 mRNA, LNP-s, No Pre serve, 2-Dose Series (Dick or Bro) 06/20/2021,10/22/2020,09/26/2020 COVID-19, LNP-s, No Preserve , Jamie-sucrose, Ages 12+ (Pfizer) 03/13/2022 Covid-19, Mrna, Lnp-s, Pf, B ivalent, 30 Mcg, IM, 12 yrs and above (Pfizer) 09/20/2022 Pneumococcal Conjugate Vacci ne, 20-valent ([id number]) 03/14/2022 Pneumococcal Polysaccharide PPV23 (Pneumovax) 03/19/2006 Seasonal [...] as of this encounter Progress Notes * Cessna, Christopher T, DO - 10/24/2023 2:00 PM EDT [facility] [place] HPI: Ronnie Wu is a 68 year old male who presents for evaluation of DR Base Eye Exam Visual Acuity (Snellen - Linear) Right Left Dist cc 20/30 20/25 -1 Correction: Glasses Tonometry (Tonopen, 2:14 PM) Right Left Pressure 11 10 Pupils Pupils APD Right PERRL None Left PERRL None Visual Montes (Counting fingers) Right Left Full Full Extraocular Movement Right Left Full, Ortho Full, Ortho Neuro/Psych Oriented x3: Yes Mood/Affect: Normal Dilation Both eyes: 0.5% Proparacaine @ 2:14 PM Dilation #2 Both eyes: 1.0% Mydriacyl, 2.5% Phenylephrine @ 2:14 PM Dilation Comments Patient cautioned that effects of dilation may last 2-7 hours dependant upon individual reaction. It was discussed that driving while dilated is not recommended. Strabismus Exam Correction: sc Observations: Ortho Distance Near Near +3DS N Bifocals cover/uncover, and alternate cover EXTERNAL: The ocular adnexae are unremarkable. SLE: Lids/Lashes: wnl OU Conjunctiva/Sclera: quiet OU Cornea: clear OU Anterior Chamber: deep and quiet OU Iris: normal OU; no NVI OU Lens: PCIOL OU GONIOSCOPY: 10/24/2023 bcompared 09/02/2023 compared to 06/13/2023: compared to 03/28/2023 compared to 01/24/2023 compared to 12/06/2022 compared to 09/17/22 compared to 07/25/2022 compared to 06/26/2022 compared to 06/12/2022 OD: open to SS/CB, resolved recurrent NVA nasally and heme in inferior angle --IMPROVED, prior WORSE, prior showed no change prior showed resolved early NVA nasally vs post goniotomy changes OS: open to SS/CB, nasal post goniotomy changes--stable Dilated fundus exam OD: vitreous: clear optic nerve: 0.7, no edema/pallor/NVD macula: wnl vessels: wnl periphery: PRP, no RD, +RT w/ laser 3 o'clock Dilated fundus exam OS: vitreous: clear optic nerve: 0.7, no edema/pallor/NVD macula: myopic vessels: wnl periphery: +RT w/ laser 9 o'clock, no RD OCT Interpretation: OD: myopic, no cme/srfluid--stable OS: myopic, no cme/srfluid--stable Fluorescein Interpretation: 06/12/2022 OD: nml filling, no NV, no sig leakage, no sig cap dropout OS: nml filling, no NV, no sig leakage, no sig cap dropout A/P: 1. Diabetic Retinopathy OU -DM2 -early NVA OU vs nasal angle changes from goniotomy 2017 (also had small hyphema OD 06/02) -Avastin OD 06/12/22--improved NVA appearance which is only in area of prior goniotomy -recurrent heme in angle and ?NVA 09/17/2022 -Avastin 09/17/22 -stopped Rhopressa OD per Dr. Liu's recommendation (has been reported to cause heme) -improved appearance after stopping Rhopressa -recurrent NVA/heme in angle 06/13/2023 -Avastin 06/13/2023 -PRP 07/17/23 -NVA/heme in angle resolved -monitor -on warfarin and ASA for h/o DVT -recommend HgbA1C <7, BP and lipid control. 2. High myopia -s/p CE, Dr. Neely -had goniotomy at time of CE 2016 3. Retinal tears OU -s/p laser OU 4. POAG OU -on drops -followed in [facility] Dr. Liu -nasal goniotomy OU by Florinda 2016 pt has appoint w/ Dr. Liu 02/02 but may hold off if stable F/u 8-10 weeks dilate and OCT OU Mika Diaz DO 822 CC: Lori Fregoso, OD CC: Dr. Liu _ documented in this encounter Nursing Notes * Lee Ann Awad RN - 10/24/2023 2:06 PM EDT Ronnie Wu is a 68 year old year old male who presents for dr mcintosh. Last Office Visit: 09/02/2023 (in office), Visit date not found (telemedicine) Patient currently states no change in vision. Are you diabetic? Yes. Do you check your blood sugars daily? YES. Fasting BS this mornin mg/dl. Last Hemoglobin A1C: Lab Results Component Value Date/Time HGBA1C 6.2 (H) 07/15/2023 09:22 AM HGBA1C 6.5 (H) 03/19/2023 10:09 AM HGBA1C 6.7 (H) 09/18/2022 10:38 AM HGBA1C 7.5 (H) 08/02/2020 09:46 AM HGBA1C 8.5 (H) 01/29/2020 12:36 PM HGBA1C 9.1 (H) 06/03/2019 10:[address]? yes OCT image(s) of both eyes acquired and filed/scanned into chart. documented in this encounter Plan of Treatment Upcoming Encounters Date Type Department Care Team (Latest Contact Info) Description 4 9:40 AM EDT Laboratory Laboratory [address] [place] [phone] [place] [address] 4 10:45 AM EDT Immunization/In jection Hematology/[facility]co [facility]y [facility] [place] [facility] [phone] Nurse, Med 4 200 [facility] [place] [address] 4 9:30 AM EDT Laboratory Laboratory [address] [place] [phone] [place] [address] 4 10:45 AM EDT [facility] 200 [facility] [place] [phone] Nurse, Med 4 200 [facility] [place] [address] 4 11:40 AM EDT Office Visit Family Medicine [address] [place] [phone] Marry Hansen [address] [place] [address] 4 11:30 AM EDT Office Visit Ophthalmology, [facility] [address] [place] [address] Mika Diaz, DO [address] [place] [address] 4 2:00 PM EDT Office Visit Nephrology, [place] [address] [place] [address] Beckie Dunbar PA-C 200 [facility] [place] [address] 4 2:36 PM EDT Hospital Encounter OR GL, Operating Room, [facility] - 4th Floor [address] [place] [address] Jayda Jeong, DO [address] [place] [address] 4 2:36 PM EDT - 4 3:09 PM EDT Surgery OR [facility], Operating Room, [facility] - 4th Floor [address] [place] [address] Jayda Jeong, DO [address] [place] [address] ESOPHAGOGASTRODUODENOSCOPY (EGD), FLEXIBLE, TRANSORAL, DIAGNOSTIC 4 10:45 AM EDT Office Visit Hematology/Onco logy [place] [address] [place] [phone] Fly Velazquez MD [address] [place] [address] 10:00 AM EDT [facility] [address] [place] [phone] Dorothy Toscano CRNP [address] [place] [address] Scheduled Orders Name Type Priority Associated Diagnoses Orde r Schedule RETINA SCAN DIAGNOSTIC IMAGE, POSTERIOR Procedures Routine 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) 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) Ordered: 10/24/2023 Scheduled Procedures Name Priority Associated Diagnoses Date/Ti [...] Additional history exists CKD PHOS USE SMARTSET 90076 09/02/202408/13, 09/18/2022, 08/29/2021, Additional history exists CKD HGB USE SMARTSET 11898 10/13/202410/13, 10/14/2023, 09/30/2023, Additional history exists Diabetic Eye Exam 10/23/2024 10/24/2023, , 10/09/2022, Additional history exists COLONOSCOPY-EVERY 5 YRS AGES [...] this encounter Medical Devices Implanted Type Area School Bus Driver/Teacher Assistant Device Identifier Shelf Expiration Date Model / Serial / Lot Envista Hydrophobic Acrylic Intraocular Lens Implanted:Qty: 1 on 12/25/2016 by Raul Neely MD at OR [facility] Right: Eye [employer] 11/09/2018 [id number] / [id number] / [id number] Envista Mx60 +10.0 D Implanted:Qty: 1 on 01/29/2017 by Raul Neely MD at OR [facility] Left: Eye 11/09/2018 [id number] / [id number] / [id number] documented as of this encounter Visit Diagnoses Diagnosis 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 Care Teams Bodily Injury Adjuster Relationship Specialty Start Date End Date Nancy Ryan DO [address] [place] [address] [place] [address] PCP - General Internal Medicine 09/11/18 documented as of this encounter
--- OUTSIDE RECORDS SUMMARY | 2023-11-13 21:26 | External Medical Summary ---
Author Name Unknown Address Unknown Organization K01:[facility] - [address] [facility] [address] Laboratory Report Ordering Provider Test Date Status JANE WOODRUFF 10/28/2023 09:54:19 Final Observation Date Value Abnormality Reference (Units ) Status SYNC LEUKOCYTES IN BLOOD BY AUTOMATED COUNT 10/28/2023 09:54:19 5.30 4.00-10.80 (K/uL) Final Segs 10/28/2023 09:54:19 55.9 40.0-75.0 (%) Final Lymphs % 10/28/2023 09:54:19 30.9 18.0-42.0 (%) Final Monos 10/28/2023 09:54:19 7.7 1.0-11.0 (%) Final Eosinophils 10/28/2023 09:54:19 4.5 0.0-6.0 (%) Final Basos 10/28/2023 09:54:19 0.6 0.0-2.0 (%) Final Immature Granulocyte, Percent 10/28/2023 09:54:19 0.4 0.0-2.0 (%) Final Absolute Segs 10/28/2023 09:54:19 2.96 1.80-7.70 (K/uL) Final Lymphs, absolute 10/28/2023 09:54:19 1.64 1.00-4.80 (K/ul) Final Monos, Abs 10/28/2023 09:54:19 0.41 0.00-1.10 (K/uL) Final Eos, Abs 10/28/2023 09:54:19 0.24 0.00-0.70 (K/uL) Final Basos, Abs 10/28/2023 09:54:19 0.03 0.00-0.20 (K/uL) Final Immature Granulocytes, Number 10/28/2023 09:54:19 0.02 0.00-0.20 (K/uL) Final Performing Location [facility] - [address] [facility] [address]
--- OUTSIDE RECORDS SUMMARY | 2023-11-13 21:26 | External Medical Summary | Summary of Care ---
Author Name Unknown Organization [facility] Address [address] [place] [facility] [place] [address] Phone [phone] Care Team Providers Care Bee Worker Name Role Phone Nancy Ryan DO Primary Care Provider [phone] Reason for Visit * Reason Comments Medication Administration Procrit * Episode Based Medications (Routine) - Authorized Specialty Diagnoses / Procedures Referred By Contac t Referred To Contact Diagnoses Anemia due to stage 3a chronic kidney disease (HCC) Procedures [place] INJ RETACRIT NON-ESRD USE Tameka Pires CRNP 400 [facility] [place] [address] Anc Hem/Onc [place] DEPT CLOSED - 06/25/[address] [place] [address] [phone] Referral ID Status Reason Start Date Expiration Date V isits Requested Visits Authorized [id number] Authorized 04/01/2023 12/23/[phone] Encounter Details Date Type Department Care Team (Late st Contact Info) Description 10/15/2023 2:15 PM EST Immunization/I njection Hematology/Oncology Treatment, [place] [address] [place] [phone] Nurse, Med [address] [place] [address] Anemia due to stage 3a chronic kidney disease (HCC)* Allergies No known active allergiesdocumented as of this encounter (statuses as of 10/15/2023) Medications Medication Sig Dispensed Refills Start Date End Date Status MULTIPLE VITAMIN PO TABS 1 TABLET DAILY 0 07/03/2011 Active OMEGA-3 FISH OIL 1000 MG PO CAPS Take one capsule by mouth daily 0 07/03/2011 Active Blood Glucose Monitoring Suppl (2-Observe ULTRA SYSTEM) W/DEVICE KITIndications:DM type 2, goal [...] neuropathy, with long-term current use of insulin ([facility]),Type 2 diabetes mellitus with hemoglobin A1c goal of less than 7.0% ([facility]) Use once a day with [...] AND DINNER 180 Tablet 3 12/10/2022 Active OneTouch Verio In Vitro Strip (Glucose Blood) Use to test blood sugars twice a day. Dx. E11.9 300 Strip 1 03/13/2023 Active OneTouch Deloneal Lancets 30GIndications:Typ e 2 diabetes mellitus with diabetic neuropathy, with long-term current use of insulin ([facility]) Use TWICE a day to test glucose Diagnosis = E11.9 200 Each 3 03/19/2023 Active Ozempic (2 MG/DOSE) 8 MG/3ML Subcutaneous Solution Pen-injector (Semaglutide (2 MG/DOSE))Indicatio ns:Type 2 diabetes mellitus with diabetic neuropathy, with long-term current use of insulin ([facility]) Inject 2 mg under the [...] neuropathy, with long-term current use of insulin ([facility]) Take 1 Tablet by mouth 2 times a day with morning and evening meals. 180 Tablet 3 05/17/2023 Active Losartan Potassium 50 MG Oral Tablet (Cozaar) Take 0.5 Tablets by mouth in the morning. 0 06/04/2023 Active Epoetin Gautam-epbx 21880 UNIT/ML Injection Solution (Retacrit) Inject 2 mL [...] Solostar 100 UNIT/ML Subcutaneous Solution Pen-injector (Basaglar KwikPen)Indication s:Type 2 diabetes mellitus with diabetic neuropathy, with long-term current use of insulin ([facility]) Inject 20 Units under the [...] as of this encounter (statuses as of 10/15/2023) Active Problems Problem Noted Date Diagnosed Date [...] Overview: Non-obstructive. 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 03/16/2005 [...] as of this encounter (statuses as of 10/15/2023) Immunizations Name Administration Dates Next Due COVID-19 mRNA, LNP-s, No Pre serve, 2-Dose Series (Pfizer) 06/20/2021,10/22/2020,09/26/2020 COVID-19, LNP-s, No Preserve , Jamie-sucrose, Ages 12+ (Pfizer) 03/13/2022 Covid-19, Mrna, Lnp-s, Pf, B ivalent, 30 Mcg, IM, 12 yrs and above (Pfizer) 09/20/2022 Pneumococcal Conjugate Vacci ne, 20-valent ([id number]) 03/14/2022 Pneumococcal Polysaccharide PPV23 (Pneumovax) 03/19/2006 Seasonal [...] as of this encounter Progress Notes * Jena Larson LPN - 10/15/2023 2:20 PM EST Patient seen by MD today; 14:05: Administered Procrit 40,000 units, Hgb: 8.7, BP 137/77. Patient tolerated injection well, denies any complaints or concerns. Patient stable upon discharge. documented in this encounter Plan of Treatment Upcoming Encounters Date Type Department Care Team (Latest Contact Info) Description 4 10:00 AM EDT Office Visit Sleep Disorders Ctr [facility] [address] [phone] Dorothy Toscano CRNP [address] [place] [address] 4 2:00 PM EDT Office Visit Ophthalmology, [facility] [address] [place] [address] Mika Diaz DO [address] [place] [address] 4 9:40 AM EDT Laboratory Laboratory [address] [place] [phone] [place] [address] 4 10:45 AM EDT Immunization/In jection Hematology/Onco logy Treatment, [place] 200 [facility] [place] [phone] Nurse, Med 4 200 [facility] [place] [address] 4 9:30 AM EDT Laboratory Laboratory [address] [place] [phone] [place], Lab [address] [place] [address] 4 10:45 AM EDT Immunization/In jection Hematology/Onco logy Treatment, [place] 200 [facility] [place] [phone] Nurse, Med 4 200 [facility] [place] [address] 4 11:40 AM EDT Office Visit Family Medicine [address] [place] [phone] [place] [address] 4 2:00 PM EDT Office Visit Nephrology, [facility] 200 [facility] [place] [address] Zemaitis, Beckie Tucker PA-C 200 [facility] [place] [address] 4 2:36 PM EDT Hospital Encounter OR [facility], Operating Room, [facility] - 4th Floor 400 [facility] [place] [phone] Jayda Jeong, DO [address] [place] [address] 4 2:36 PM EDT - 4 3:09 PM EDT Surgery OR [facility], Operating Room, [facility] - 4th Floor [address] [place] [phone] Jayda Jeong, DO [address] [place] [address] ESOPHAGOGASTRODUODENOSCOPY (EGD), FLEXIBLE, TRANSORAL, DIAGNOSTIC 4 10:45 AM EDT Office Visit Hematology/Onco logy [place]il[facility] [place] [address] [place] [phone] Fly Velazquez MD [address] [place] [address] Scheduled Procedures Name Priority Associated Diagnoses Date/Ti me ESOPHAGOGASTRODUODENOSCOPY ( EGD), FLEXIBLE, TRANSORAL, DIAGNOSTIC Gastric ulcer 01/01/2024 2:36 PM EDT COLONOSCOPY FLEXIBLE PROXIMA L DIAGNOSTIC Recall History of colon polyps Health Maintenance Due Date Last Done Comments Depression Screening 01/28/2021 01/29/2020 Diabetic Foot Exam 03/14/2023 03/14/2022, 0 11/30/2015, 11/09/2014, Additional history exists COVID-19 Vaccine ( season) 2023 09/20/2022, 03/13/2022, 06/20/2021, Additional history exists Diabetic Eye Exam 10/09/2023 10/09/2022, , 06/12/2022, Additional history exists HbA1c 01/14/2024 07/15/2023, 08/0 03/2023, 09/18/2022, Additional history exists Albumin/Creatinine Ratio 02/20/2024 023, 03/14/2022, 05/19/2021, Additional history exists GFR 04/15/2024 10/14/2023, 08/13, 08/23/2023, Additional history exists CKD PHOS USE SMARTSET 97079 09/02/202408/13, 09/18/2022, 08/29/2021, Additional history exists CKD HGB USE SMARTSET 49895 10/13/202410/13, 10/14/2023, 09/30/2023, Additional history exists COLONOSCOPY-EVERY 5 YRS AGES [...] this encounter Medical Devices Implanted Type Area Park Superintendent Device Identifier Shelf Expiration Date Model / Serial / Lot Envista Hydrophobic Acrylic Intraocular Lens Implanted:Qty: 1 on 12/25/2016 by Raul Neely MD at OR [facility] Right: Eye [employer] 11/09/2018 [id number] / [id number] / [id number] Envista Mx60 +10.0 D Implanted:Qty: 1 on 01/29/2017 by Raul Neely MD at OR [facility] Left: Eye 11/09/2018 [id number] / [id number] / [id number] documented as of this encounter Visit Diagnoses Diagnosis Anemia due to stage 3a chronic kidney disease (HCC)- Primary Gastric ulcer Gastric ulcer, unspecified as acute or chronic, without mention of hemorrhage, perforation, or obstruction documented in this encounter Administered Medications Inactive Administered Medications - up to 3 most recent administrations Medication Order MAR Action Action Date Dose Rate Site Epoetin Gautam 15993 UNIT/ML inj 40,000 Units 40,000 Units, Subcutaneous, ONCE, On Sat10/15/23 at 1430, For 1 dose Given 10/15/2023 2:05 PM EST 40,000 Units Arm Left Upper documented in this encounter Advance Directives [...] and were consensually agreed upon. Care Teams Bee Worker Relationship Specialty Start Date End Date Nancy Ryan DO [address] [place] [address] [place] [address] PCP - General Internal Medicine 09/11/18 documented as of this encounter
--- OUTSIDE RECORDS SUMMARY | 2023-11-13 21:26 | External Medical Summary | Summary of Care ---
Author Name Unknown Organization [facility] Address [address] [place] [address] Phone [phone] Care Team Providers Care Accounts Receivable Executive Name Role Phone Lacy Ryananda Jina ALVAREZ Primary Care Provider [phone] Reason for Visit * Reason Comments Follow Up Here return 5 mo SPENCER . CPAP. Hasn't been using it. Fell down steps in January. Sleeps in recliner at this time ,has pads on legs due to skinning them when he fell and they burn. Encounter Details Date Type Department Care Team (Late st Contact Info) Description 10/23/2023 10:00 AM EDT Office Visit [facility] [address] [facility] [place] [phone] Dorothy Toscano CRNP [address] [facility] [place] [id number] Obstructive sleep apnea* Allergies No known active allergiesdocumented as of this encounter (statuses as of 10/25/2023) Medications Medication Sig Dispensed Refills Start Date End Date Status MULTIPLE VITAMIN PO TABS 1 TABLET DAILY 0 07/03/2011 Active OMEGA-3 FISH OIL 1000 MG PO CAPS Take one capsule by mouth daily 0 07/03/2011 Active Blood Glucose Monitoring Suppl (ONETOUCH ULTRA SYSTEM) W/DEVICE KITIndications:DM type 2, goal [...] long-term current use of insulin ([facility]),Type 2 diabetes mellitus with hemoglobin A1c goal of less than 7.0% ([facility]) Use once a day with basaglar. [...] AND DINNER 180 Tablet 3 12/10/2022 Active CoinfloorTouch Verio In Vitro Strip (Glucose Blood) Use to test blood sugars twice a day. Dx. E11.9 300 Strip 1 03/13/2023 Active Envisage Technologiesuch Deloneal Lancets 30GIndications:Typ e 2 diabetes mellitus with diabetic neuropathy, with long-term current use of insulin ([facility]) Use TWICE a day to test glucose Diagnosis = E11.9 200 Each 3 03/19/2023 Active Ozempic (2 MG/DOSE) 8 MG/3ML Subcutaneous Solution Pen-injector (Semaglutide (2 MG/DOSE))Indicatio ns:Type 2 diabetes mellitus with diabetic neuropathy, with long-term current use of insulin ([facility]) Inject 2 mg under the skin [...] the morning. 0 06/04/2023 Active Epoetin Gautam-epbx 38207 UNIT/ML Injection Solution (Retacrit) Inject 2 mL [...] Glargine Solostar 100 UNIT/ML Subcutaneous Solution Pen-injector (Caseaglradha Ashraf)Indication s:Type 2 diabetes mellitus with diabetic neuropathy, with long-term current use of insulin ([facility]) Inject 20 Units under the skin in [...] as of this encounter (statuses as of 10/25/2023) Active Problems Problem Noted Date Diagnosed Date [...] Overview: Non-obstructive. Noted on CT scan at [facility] 05/2019 Mild nonproliferative diabet ic retinopathy of [...] as of this encounter (statuses as of 10/25/2023) Resolved Problems Problem Noted Date Diagnosed Date [...] Obesity Taxonomy 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 of inactive term pen[facility] current use of ant icoagulant therapy 03/16/2005 [...] as of this encounter (statuses as of 10/25/2023) Immunizations Name Administration Dates Next Due COVID-19 mRNA, LNP-s, No Pre serve, 2-Dose Series (Triond) 06/20/2021,10/22/2020,09/26/2020 COVID-19, LNP-s, No Preserve , Jamie-sucrose, Ages 12+ (Pfizer) 03/13/2022 Covid-19, Mrna, Lnp-s, Pf, B ivalent, 30 Mcg, IM, 12 yrs and above (Pfizer) 09/20/2022 Pneumococcal Conjugate Vacci ne, 20-valent ([id number]) 03/14/2022 Pneumococcal Polysaccharide PPV23 (Pneumovax) 03/19/2006 Seasonal [...] Sign Reading Time Taken Comments Blood Pressure 122/60 10/23/2023 10:07 AM EDT Pulse 91 10/23/2023 10:07 AM EDT Temperature 36.4 C (97.5 F) 10/23/2023 10:07 AM E DT Respiratory Rate 16 10/23/2023 10:07 AM EDT Oxygen Saturation 99% 10/23/2023 10:07 AM EDT Inhaled Oxygen Concentration - - Weight 141.1 kg (311 lb) 10/23/2023 10:07 AM EDT Height 180.3 cm (5' 11") 10/23/2023 10:07 AM EDT Body Mass Index 43.38 10/23/2023 10:07 AM EDT documented in this encounter Progress Notes * Dorothy Toscano CRNP - 10/25/2023 8:18 AM EDT 90 day report ending 10/09/2023 % total days used: 68 % days used > 4 hours: 47 Average hours per day used: 4 hours 38 mins Large leak: 12 mins AHI: 0.9 Pressures: mean 14, p90% 16 * Dorothy Toscano CRNP - 10/23/2023 10:07 AM EDT [facility] Ronnie Wu is a 68 year old male seen today for six-month follow-up of SPENCER treated on CPAP. Initially presented with reports of unintentional dozing driving and at meetings, non refreshing sleep and witnessed apnea. - PSG 01/11/1999: AHI 36 (30 CA, 34 MA, 21 O, 52 H), SE 87%, REM 23 mins, mean SpO2 95%, no significant PLMD - Titration 08/25/2007 (wt 420): CPAP 11 cwp with AHI 1, SpO2 anne 91% - Noct ox CPAP 13-18/RA 06/27/2022 (wt 335): SpO2 anne 93%, test time 7 hrs Goal for sleep schedule established at the last visit was [id number]. Interim History: Doing better since the pressures were adjusted following the last visit. Hasn't been using CPAP for the past couple of weeks because he's sleeping in his recliner due to pain from zinc pads used to treat his skin abrasions on his knees. Sleeping upright. Sleep schedule- falling asleep while watching tv, 0100 - 0800, woken by his , total sleep time is 5-6 hours, naps after supper Trying to be more active during the day, doing things in the garage. Compliance Data: Requested (SD card turned in today) Equipment: DME Provider: AQUILINO Device: SunModular Settings: 13-18 cmH20 Interface Type: FFM Humidifier: not used Cre[place] Sleepiness Scale Question 10/23/2023 10:06 AM EDT - Filed by Patient What is the chance you will doze off in the following situation? Sitting and reading No chance of dozing Watching TV No chance of dozing Sitting inactive in a public place, such as a theater or meeting No chance of dozing As a passenger in a car for an hour without a break High chance of dozing Lying down to rest in the afternoon when circumstances permit No chance of dozing When sitting and talking to someone No chance of dozing When sitting quietly after lunch without alcohol Slight chance of dozing In a car, while stopped for a few minutes in traffic No chance of dozing Score (range: 0 - 24) 4 Review of Systems Cardiovascular: Negative for chest pain. Problem List: Patient Active Problem List Diagnosis Code SPENCER (obstructive sleep apnea) G47.33 Type 2 diabetes mellitus with diabetic neuropathy, with long-term current use of insulin ([facility]) E11.40, Z79.4 Gout of wrist M10.9 Venous insufficiency I87.2 Vitamin B12 deficiency E53.8 Dyslipidemia, goal LDL below 100 E78.5 Venous stasis dermatitis of both lower extremities I87.2 DM neuropathy, type II diabetes mellitus ([facility]) E11.40 History of DVT (deep vein thrombosis) Z86.718 Venous stasis ulcer of calf ([facility]) I83.002, L97.209 H/O amputation of lesser toe, unspecified laterality ([facility]) Z89.429 HTN, goal below 140/90 I10 Iron deficiency anemia due to chronic blood loss D50.0 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 associated with type 2diabetes mellitus ([facility]) E11.3292 Hyperkalemia E87.5 Renal calculi N20.0 Non-pressure chronic ulcer of unspecified part of left lower leg with unspecified severity ([facility]) L97.929 Varicose veins of right lower extremity with ulcer other part of lower leg (CODE) ([facility]) I83.018 Stage 3a chronic kidney disease N18.31 Non-pressure chronic ulcer of unspecified part of right lower leg with unspecified severity ([facility]) L97.919 Acute gout due to renal impairment involving right wrist M10.331 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 Carpal tunnel syndrome of right wrist G56.01 Chronic right-sided heart failure ([facility]) I50.812 Other specified peripheral vascular diseases ([facility]) I73.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, multiple sites, without tophus (tophi) M1A.39X0 Tubular adenoma D36.9 History of adenomatous polyp of colon Z86.010 Non-pressure chronic ulcer of lower leg, limited to breakdown of skin ([facility]) L97.901 Chronic venous hypertension (idiopathic) with ulcer of bilateral lower extremity (CODE) ([facility]) I87.313 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 ([facility]) E11.3593 Anemia due to stage 3a chronic kidney disease ([facility]) N18.31, D63.1 Venous stasis ulcer of right calf limited to breakdown of skin ([facility]) I83.012, L97.211 Body mass index (BMI) of 40.0 to 44.9 in adult ([facility]) Z68.41 Current Medications: Outpatient Medications Marked as Taking for the 10/23/23 encounter (Office Visit) with Dorothy Toscano CRNP Medication Sig Omeprazole 40 MG Oral Capsule Delayed Release (PriLOSEC) Take 1 Capsule by mouth in the morning. 1 hour before the first meal of the day. Insulin Glargine Solostar 100 UNIT/ML Subcutaneous Solution Pen-injector (Basaglar KwikPen) Inject 20 Units under the skin in the morning. Atorvastatin Calcium 20 MG Oral Tablet (Lipitor) TAKE 1 TABLET BY MOUTH EVERY DAY IN THE MORNING Chlorthalidone 25 MG Oral Tablet (Hygroton) Take 1 Tablet by mouth in the morning. Vitamin D3 125 MCG (5000 UT) Oral Tablet Chewable Take by mouth. Torsemide 20 MG Oral Tablet (Demadex) Take 1 Tablet by mouth in the morning. Epoetin Gautam-epbx 68223 UNIT/ML Injection Solution (Retacrit) Inject 2 mL intravenously once. Everytwo weeks Losartan Potassium 50 MG Oral Tablet (Cozaar) Take 0.5 Tablets by mouth in the morning. Allopurinol 100 MG Oral Tablet (Zyloprim) Take 1 Tablet by mouth in the morning. Take 1 tablet by mouth in the morning in addition to 300 mg tablet for a total dose of 400 mg.. metFORMIN HCl 500 MG Oral Tablet (Glucophage) Take 1 Tablet by mouth 2 times a day with morning andevening meals. Ozempic (2 MG/DOSE) 8 MG/3ML Subcutaneous Solution Pen-injector (Semaglutide (2 MG/DOSE)) Inject 2 mg under the skin once a week. DX E11.9 Diabetes Mellitus (Patient taking differently: Inject 1 mg under the skin once a week. DX E11.9 Diabetes Mellitus) OneTouch Delica Lancets 30G Use TWICE a day to test glucose Diagnosis = E11.9 OneTouch Verio In Vitro Strip (Glucose Blood) Use to test blood sugars twice a day. Dx. E11.9 Allopurinol 300 MG Oral Tablet (Zyloprim) TAKE 1 TABLET BY MOUTH EVERY DAY Carvedilol 6.25 MG Oral Tablet (Coreg) TAKE 1 TABLET BY MOUTH TWICE A DAY WITH BREAKFAST AND DINNER Rhopressa 0.02 % Ophthalmic Solution Instill 1 Drop into the left eye at bedtime. BD Pen Needle Wilda U/F 32G X 4 MM (Insulin Pen Needle) Use once a day with basaglar. DX e11.9 Aspirin 81 MG Tablet Take 1 Tablet by mouth in the morning. dorzolamide-timolol (COSOPT OCUMETER PLUS) 2.23-0.68% ophthalmic solution INSTILL 1 DROP INTO BOTH EYES BY OPHTHALMIC ROUTE ONCE IN THE MORING AND THE SECOND DROP AROUND 5 PM Blood Glucose Monitoring Suppl ([employer] ULTRA SYSTEM) W/DEVICE KIT Use as directed 4 times a day. Use up to four times a day as directed. Diagnosis = E11.9 Current Facility-Administered Medications for the 10/23/23 encounter (Office Visit) with Dorothy Toscano CRNP Medication bevaCIZumab (Avastin) inj 1.25 mg ROPivacaine (Naropin) inj 1.5 mg Physical Exam: BP 122/60 | Pulse 91 | Temp 36.4 C (97.5 F) (Tympanic) | Resp 16 | Ht 1.803 m (5' 11") | Wt (!)141.1 kg (311 lb) | SpO2 99% | BMI 43.38 kg/m | BSA 2.66 m Constitutional: Alert, oriented and in no acute distress Skin: No abnormal mask markings on face Cardio: Regular rate and rhythm, no murmur Chest: Normal respiratory effort at rest Neuro: Fluent speech Psych: Appropriate mood and affect. Assessment & Plan: Encounter Diagnoses Name Primary? Obstructive sleep apnea Yes Severe obstructive sleep apnea based on AHI criteria diagnosed in 1998 Tolerating CPAP better with pressure adjustment swelling the last visit Download requested Move CPAP to his recliner for use nightly Continue regular sleep-wake scheduling, [id number] being the goal striving for closer to 7 hours of sleep Routine cleaning and change of supplies as needed was encouraged. Continue to avoid engaging in activities that require full alertness when feeling sleepy or tired. Follow-up in 6-12 months pending review of download. JALEEL Abdi [facility] I spent a total of 30-39 minutes (exact time 31 mins) on the date of service in preparation, delivery, and documentation of the care provided to Ronnie Wu excluding any time spent in the performance of separately billed services. documented in this encounter Nursing Notes * Caitlin Gaston LPN - 10/23/2023 10:09 AM EDT Chief Complaint Patient presents with Follow Up Here return 5 mo SPENCER . CPAP. Hasn't been using it. Fell down steps in January. Sleeps in recliner at this time ,has pads on legs due to skinning them when he fell and they burn. [place] Sleepiness Scale Question 10/23/2023 10:06 AM EDT - Filed by Patient What is the chance you will doze off in the following situation? Sitting and reading No chance of dozing Watching TV No chance of dozing Sitting inactive in a public place, such as a theater or meeting No chance of dozing As a passenger in a car for an hour without a break High chance of dozing Lying down to rest in the afternoon when circumstances permit No chance of dozing When sitting and talking to someone No chance of dozing When sitting quietly after lunch without alcohol Slight chance of dozing In a car, while stopped for a few minutes in traffic No chance of dozing Score (range: 0 - 24) 4 documented in this encounter Plan of Treatment Upcoming Encounters Date Type Department Care Team (Latest Contact Info) Description 4 9:40 AM EDT Laboratory Laboratory [address] [place] [phone] [place] [address] 4 10:45 AM EDT Immunization/In jection Hematology/Onco logy Treatment[address] [place] [phone] Nurse, Med 4 [address] [facility] [place] [address] 4 9:30 AM EDT Laboratory Laboratory [address] [place] [phone] [address] [place] [address] 4 10:45 AM EDT Immunization/In jection Hematology/Onco logy Treatment, [address] [phone] Nurse, Med 4 [address] [facility] [place] [address] 4 11:40 AM EDT Office Visit Family Medicine [address] [place] [phone] Marry Hansen [address] [place] [address] 4 11:30 AM EDT [facility] [place] [address] [place] [address] Mika Diaz, DO [address] [place] [address] 4 2:00 PM EDT Office Visit Nephrology, [place] [address] [place] [address] ZemaitisBeckie PA-C [address] [place] [address] [address] 4 2:36 PM EDT Hospital Encounter OR [facility], Operating Room, [facility] - 4th Floor [address] [place] [address] Jayda Jeong, DO [address] [place] [address] 4 2:36 PM EDT - 4 3:09 PM EDT Surgery OR [facility], Operating Room, [facility] - 4th Floor [address] [place] [address] Jayda Jeong, DO [address] [place] [address] ESOPHAGOGASTRODUODENOSCOPY (EGD), FLEXIBLE, TRANSORAL, DIAGNOSTIC 4 10:45 AM EDT Office Visit Hematology/Onco logy [place] [address] [place] [place] [phone] Fly Velazquez MD [address] [place] [address] [address] 5 10:00 AM EDT Office Visit [facility] Disorders [facility] [place] [address] [place] [phone] Dorothy Toscano CRNP [address] [place] [address] Scheduled Procedures Name Priority Associated Diagnoses Date/Ti [...] Additional history exists CKD PHOS USE SMARTSET 76120 09/02/202408/13, 09/18/2022, 08/29/2021, Additional history exists CKD HGB USE SMARTSET 62304 10/13/202410/13, 10/14/2023, 09/30/2023, Additional history exists Diabetic [...] this encounter Medical Devices Implanted Type Area Caddie Device Identifier Shelf Expiration Date Model / Serial / Lot Envista Hydrophobic Acrylic Intraocular Lens Implanted:Qty: 1 on 12/25/2016 by Raul Neely MD at OR [facility] Right: Eye [employer] 11/09/2018 [id number] / [id number] / [id number] Envista Mx60 +10.0 D Implanted:Qty: 1 on 01/29/2017 by Raul Neely MD at OR [facility] Left: Eye 11/09/2018 [id number] / [id number] / [id number] documented as of this encounter Visit Diagnoses Diagnosis Obstructive sleep apnea- Primary Obstructive sleep apnea (adult) (pediatric) Gastric ulcer Gastric ulcer, unspecified as acute [...] and were consensually agreed upon. Care Teams Accounts Receivable Executive Relationship Specialty Start Date End Date Nancy Ryan DO [address] [place] [address] [place] [phone] PCP - General Internal Medicine 09/11/18 documented as of this encounter
--- OUTSIDE RECORDS SUMMARY | 2023-11-13 21:26 | External Medical Summary | Summary of Care ---
Author Name Unknown Organization [facility] Address [address] [place] [address] Phone [phone] Care Team Providers Care Skates Operator Name Role Phone RyanNancy martinez Primary Care Provider [phone] Reason for Visit * Reason Comments eRx-Medication Refill Encounter Details Date Type Department Care Team (Late st Contact Info) Description 10/25/2023 Refill Nephrology, [facility] [address] [facility] [place] [address] Juliet Gunter MD [address] [place] [address] Allergies No known active allergiesdocumented as of this encounter (statuses as of 10/28/2023) Medications Medication Sig Dispensed Refills Start Date End Date Status MULTIPLE VITAMIN PO TABS 1 TABLET DAILY 0 1 Active OMEGA-3 FISH OIL 1000 MG PO CAPS Take one capsule by mouth daily 0 1 Active Blood Glucose Monitoring Suppl ([employer] ULTRA SYSTEM) W/DEVICE KITIndications:D M type 2, goal A1c below 7 Use as directed 4 times a day. Use up to four times a day as directed. Diagnosis = E11.9 1 Kit 0 5 Active dorzolamide-steve lol (COSOPT OCUMETER PLUS) 2.23-0.68% ophthalmic solution INSTILL 1 DROP INTO BOTH EYES BY OPHTHALMIC ROUTE ONCE IN THE MORING AND THE SECOND DROP AROUND 5 PM 4 9 Active Aspirin 81 MG Tablet Take 1 Tablet by mouth in the morning. 0 Active BD Pen Needle Wilda U/F 32G X 4 MM (Insulin Pen Needle)Indicatio ns:Type 2 diabetes mellitus with diabetic neuropathy, with long-term current use of insulin ([facility]),Type 2 diabetes mellitus with hemoglobin A1c goal of less than 7.0% ([facility]) Use once a day with basaglar. DX e11.9 100 Each 3 2 Active Rhopressa 0.02 % Ophthalmic Solution Instill 1 Drop into the left eye at bedtime. 0 2 Active Vitamin C 1000 MG Oral Tablet Take 1 Tablet by mouth in the morning. 0 Active Allopurinol 300 MG Oral Tablet (Zyloprim) TAKE 1 TABLET BY MOUTH EVERY DAY 90 Tablet 3 3 Active OneTouch Verio In Vitro Strip (Glucose Blood) Use to test blood sugars twice a day. Dx. E11.9 300 Strip 1 3 Active OneTouch Delica Lancets 30GIndications:T ype 2 diabetes mellitus with diabetic neuropathy, with long-term current use of insulin ([facility]) Use TWICE a day to test glucose Diagnosis = E11.9 200 Each 3 3 Active Ozempic (2 MG/DOSE) 8 MG/3ML Subcutaneous Solution Pen-injector (Semaglutide (2 MG/DOSE))Indicat ions:Type 2 diabetes mellitus with diabetic neuropathy, with long-term current use of insulin ([facility]) Inject 2 mg under the skin once a week. DX E11.9 Diabetes Mellitus 3 mL 5 3 Active Additional Information Patient taking differently: 1 mgSubcutaneous QWEEK, DX E11.9 Diabetes Mellitus, Reported on 10/01/2023 Allopurinol 100 MG Oral Tablet (Zyloprim)Indica tions:Acute gout of right wrist, unspecified cause Take 1 Tablet by mouth in the morning. Take 1 tablet by mouth in the morning in addition to 300 mg tablet for a total dose of 400 mg.. 90 Tablet 3 3 Active metFORMIN HCl 500 MG Oral Tablet (Glucophage)Nicki cations:Type 2 diabetes mellitus with diabetic neuropathy, with long-term current use of insulin (HCC) Take 1 Tablet by mouth 2 times a day with morning and evening meals. 180 Tablet 3 3 Active Losartan Potassium 50 MG Oral Tablet (Cozaar) Take 0.5 Tablets by mouth in the morning. 0 3 Active Epoetin Gautam-epbx 59581 UNIT/ML Injection Solution (Retacrit) Inject 2 mL intravenously once. Every two weeks 0 Active Torsemide 20 MG Oral Tablet (Demadex) Take 1 Tablet by mouth in the morning. 90 Tablet 3 3 Active Vitamin D3 125 MCG (5000 UT) Oral Tablet Chewable Take by mouth. 0 Active Chlorthalidone 25 MG Oral Tablet (Hygroton) Take 1 Tablet by mouth in the morning. 90 Tablet 3 3 Active Atorvastatin Calcium 20 MG Oral Tablet (Lipitor)Indicat ions:Dyslipidemi a, goal LDL below 70 TAKE 1 TABLET BY MOUTH EVERY DAY IN THE MORNING 90 Tablet 3 4 Active Insulin Glargine Solostar 100 UNIT/ML Subcutaneous Solution Pen-injector (Caseaglradha Ashraf)Indicati ons:Type 2 diabetes mellitus with diabetic neuropathy, with long-term current use of insulin (HCC) Inject 20 Units under the skin in the morning. 0 4 Active Omeprazole 40 MG Oral Capsule Delayed Release (PriLOSEC) Take 1 Capsule by mouth in the morning. 1 hour before the first meal of the day. 90 Capsule 3 4 Active Carvedilol 6.25 MG Oral Tablet (Coreg) TAKE 1 TABLET BY MOUTH TWICE A DAY WITH BREAKFAST AND DINNER 180 Tablet 3 4 Active Carvedilol 6.25 MG Oral Tablet (Coreg) TAKE 1 TABLET BY MOUTH TWICE A DAY WITH BREAKFAST AND DINNER 180 Tablet 3 3 10/28/19 24 Discontinued Hospital, Clinic, or Other Facility Administered Medication [...] as of this encounter (statuses as of 10/28/2023) Active Problems Problem Noted Date Diagnosed Date [...] Overview: Non-obstructive. 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 03/16/2005 [...] as of this encounter (statuses as of 10/28/2023) Immunizations Name Administration Dates Next Due COVID-19 mRNA, LNP-s, No Pre serve, 2-Dose Series (Localist) 06/20/2021,10/22/2020,09/26/2020 COVID-19, LNP-s, No Preserve , Jamie-sucrose, Ages 12+ (Pfizer) 03/13/2022 Covid-19, Mrna, Lnp-s, Pf, B ivalent, 30 Mcg, IM, 12 yrs and above (Pfizer) 09/20/2022 Pneumococcal Conjugate Vacci ne, 20-valent ([id number]) 03/14/2022 Pneumococcal Polysaccharide PPV23 (Pneumovax) 03/19/2006 Seasonal [...] on file documented as of this encounter Miscellaneous Notes * Telephone Encounter - Juliet Gunter MD - 10/28/2023 10:13 AM EDTSigned Prescriptions: Disp Refills Carvedilol 6.25 MG Oral Tablet (Coreg) 180 Ta*3 Sig: TAKE 1 TABLET BY MOUTH TWICE A DAY WITH BREAKFAST AND DINNER Authorizing Provider: JULIET GUNTER * Telephone Encounter - Cristina Mckeon LPN - 10/25/2023 11:20 AM EDTPending Prescriptions: Disp Refills Carvedilol 6.25 MG Oral Tablet [Pharmacy M*180 Ta*3 Sig: TAKE 1 TABLET BY MOUTH TWICE A DAY WITH BREAKFAST AND DINNER * Telephone Encounter - Cristina Mckeon LPN - 10/25/2023 11:15 AM EDT Rx pended Message sent to provider for approval. Last OV 09/19/23 Next OV 12/25/23 documented in this encounter Plan of Treatment Upcoming Encounters Date Type Department Care Team (Latest Contact Info) Description 10:45 AM EDT Immunization/In jection Hematology/Onco logy Treatment, [place] [address] [place] [address] Nurse, Med 200 [facility], [place] [phone] 4 9:30 AM EDT Laboratory Laboratory [address] [place] [phone] [place], Lab [address] [place] [address] 4 10:45 AM EDT Immunization/In jection Hematology/[facility]co [facility]y [facility] [phone] Nurse, Med 200 [facility] [place] [address] 4 11:40 AM EDT Office Visit Family Medicine [address] [place] [phone] Marry Hansen [address] [place] [address] 4 11:30 AM EDT Office Visit Ophthalmology, [facility] [address] [place] [address] Mika Diaz, DO [address] [place] [address] 4 2:00 PM EDT Office Visit Nephrology, [facility] [address] [facility] [place] [address] Zemaitis, Beckie Tucker PA-C 200 [facility] [place] [address] 4 2:36 PM EDT Hospital Encounter OR GL, Operating Room, [facility] - 4th Floor 400 [facility] [place] [id number] Jayda Jeong, DO [address] [place] [address] 4 2:36 PM EDT - 05/22/202 4 3:09 PM EDT Surgery OR [facility], Operating Room, [facility] - 4th Floor [address] [place] [address] Jayda Jeong DO [address] [place] [address] ESOPHAGOGASTRODUODENOSCOPY (EGD), FLEXIBLE, TRANSORAL, DIAGNOSTIC 4 10:45 AM EDT Office Visit Hematology/Onco logy [facility] [address], [place] [phone] Fly Velazquez MD [address] [place] [address] 5 10:00 AM EDT Office [facility] [address] [place] [phone] Dorothy Toscano CRNP [address] [place] [address] Scheduled Procedures Name Priority Associated Diagnoses Date/Ti [...] Additional history exists CKD PHOS USE SMARTSET 52246 09/02/202408/13, 09/18/2022, 08/29/2021, Additional history exists CKD HGB USE SMARTSET 52025 10/13/202410/13, 10/14/2023, 09/30/2023, Additional history exists Diabetic [...] this encounter Medical Devices Implanted Type Area Broth Setter Device Identifier Shelf Expiration Date Model / Serial / Lot Envista Hydrophobic Acrylic Intraocular Lens Implanted:Qty: 1 on 12/25/2016 by Raul Neely MD at OR [facility] Right: Eye [employer] LOM[employer] 11/09/2018 [id number] / [id number] / [id number] Envista Mx60 +10.0 D Implanted:Qty: 1 on 01/29/2017 by Raul Neely MD at OR [facility] Left: Eye 11/09/2018 [id number] / [id number] / [id number] documented as of this encounter Advance Directives Latest Code Status [...] and were consensually agreed upon. Care Teams Skates Operator Relationship Specialty Start Date End Date Nancy Ryan DO [address] [place] [address] [place] [address] PCP - General Internal Medicine 09/11/18 documented as of this encounter
--- OUTSIDE RECORDS SUMMARY | 2023-11-13 21:26 | External Medical Summary ---
Author Name Unknown Address Unknown Organization K01:[facility] [facility] - [facility] [address] [facility] [address] [facility] [address] Laboratory Report Ordering Provider Test Date Status JANE WOODRUFF 10/28/2023 09:54:19 Final Observation Date Value Abnormality Reference (Units ) Status WBC, Total 10/28/2023 09:54:19 5.30 4.00-10.80 (K/uL) Final RBC 10/28/2023 09:54:19 2.73 4.50-5.25 (M/uL) Final Hemoglobin 10/28/2023 09:54:19 9.0 Below low normal 14.0-16.8 (g/dL) Final HCT 10/28/2023 09:54:19 27.8 Below low normal 40.0-48.4 (%) Final MCV 10/28/2023 09:54:19 101.8 82.0-99.5 (fL) Final MCH 10/28/2023 09:54:19 33.0 27.0-34.0 (pg) Final MCHC 10/28/2023 09:54:19 32.4 32.0-36.0 (g/dL) Final RDW 10/28/2023 09:54:19 20.5 11.5-15.5 (%) Final Platelets 10/28/2023 09:54:19 205 140-400 (K/uL) Final MPV 10/28/2023 09:54:19 10.4 6.6-11.1 (fL) Final Nucleated erythrocytes/100 leukocytes [Ratio] in Blood by Automated count 10/28/2023 09:54:19 0 <=0 (/100 WBCs) Final Performing Location [facility] - [address] [facility] [address]
--- OUTSIDE RECORDS SUMMARY | 2023-11-13 21:26 | External Medical Summary | Summary of Care ---
Author Name Unknown Organization [facility] Address [address] [place] [address] Phone [phone] Care Team Providers Care Powder Nipper Name Role Phone Nancy Ryan DO Primary Care Provider [phone] Reason for Visit * Reason Comments Medication Administration Retacrit * Episode Based Medications (Routine) - Authorized Specialty Diagnoses / Procedures Referred By Contac t Referred To Contact Diagnoses Anemia due to stage 3a chronic kidney disease (HCC) Procedures MS INJ RETACRIT NON-ESRD USE Tameka Pires CRNP 400 [facility] [place] [address] Anc Hem/Onc [facility] DEPT CLOSED - 06/25/[address] [place] [phone] Referral ID Status Reason Start Date Expiration Date V isits Requested Visits Authorized [id number] Authorized 04/01/2023 12/23/[phone] Encounter Details Date Type Department Care Team (Late st Contact Info) Description 10/29/2023 10:45 AM EDT Immunization/I njection Hematology/Oncology Treatment, [place] [address] [place] [address] Nurse, Med [address] [place] [address] [phone] Anemia due to stage 3a chronic kidney disease ([facility])* Allergies No known active allergiesdocumented as of this encounter (statuses as of 10/29/2023) Medications Medication Sig Dispensed Refills Start Date End Date Status MULTIPLE VITAMIN PO TABS 1 TABLET DAILY 0 07/03/2011 Active OMEGA-3 FISH OIL 1000 MG PO CAPS Take one capsule by mouth daily 0 07/03/2011 Active Blood Glucose Monitoring Suppl ([employer] ULTRA SYSTEM) W/DEVICE KITIndications:DM type 2, goal [...] EVERY DAY 90 Tablet 3 12/10/2022 Active FloorPrep SolutionsTouch Verio In Vitro Strip (Glucose Blood) Use [...] the morning. 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 [...] as of this encounter (statuses as of 10/29/2023) Immunizations Name Administration Dates Next Due COVID-19 mRNA, LNP-s, No Pre serve, 2-Dose Series (Pfizer) 06/20/2021,10/22/2020,09/26/2020 COVID-19, LNP-s, No Preserve , Jamie-sucrose, Ages 12+ (Pfizer) 03/13/2022 Covid-19, Mrna, Lnp-s, Pf, B ivalent, 30 Mcg, IM, 12 yrs and above (Pfizer) 09/20/2022 Pneumococcal Conjugate Vacci ne, 20-valent ([id number]) 03/14/2022 Pneumococcal Polysaccharide PPV23 (Pneumovax) 03/19/2006 Seasonal [...] Sign Reading Time Taken Comments Blood Pressure 134/78 10/29/2023 10:50 AM EDT Pulse - - Temperature - - Respiratory Rate - - Oxygen Saturation - - Inhaled Oxygen Concentration - - Weight - - Height - - Body Mass Index - - documented in this encounter Nursing Notes * Pat Trent LPN - 10/29/2023 11:14 AM EDT Pt arrived for Retacrit injection. Hgb 9.0. BP WNL. Administered in RAMILA. Pt tolerated well. To return in 2 weeks. Discharged in stable condition. documented in this encounter Plan of Treatment Upcoming Encounters Date Type Department Care Team (Latest Contact Info) Description 4 9:30 AM EDT Laboratory Laboratory [address] [place] [phone] [place] [address] 4 10:45 AM EDT Immunization/In jection Hematology/[facility], [place] [facility] [phone] Nurse, Med [address] [facility] [place] [address] 4 11:40 AM EDT Office Visit Family Medicine [address] [place] [phone] Marry Hansen, [address] [place] [address] 4 11:30 AM EDT Office Visit Ophthalmology, [facility] [address] [place], [place] [address] Mika Diaz, DO [address] [place] [address] 4 2:00 PM EDT Office Visit Nephrology, [place] [address] [place] [address] ZeBeckie cruz PA-C [address] [place] [address] 4 2:36 PM EDT Hospital Encounter OR GL, Operating Room, [facility] - 4th Floor [address] [place] [address] Jayda Jeong, DO [address] [place] [address] 4 2:36 PM EDT - 4 3:09 PM EDT Surgery OR [facility], Operating Room, [facility] - 4th Floor [address] [place] [address] Jayda Jeong, DO [address] [place] [address] ESOPHAGOGASTRODUODENOSCOPY (EGD), FLEXIBLE, TRANSORAL, DIAGNOSTIC 4 10:45 AM EDT Office Visit Hematology/Onco logy [facility] [place] [place] [address] [place] [phone] Fly Velazquez MD [address] [place] [address] 5 10:00 AM EDT Office Visit Sleep Disorders Ctr [facility] [address] [place] [phone] Dorothy Toscano CRNP [address] [place] [address] Scheduled Procedures Name Priority Associated Diagnoses Date/Ti [...] Additional history exists CKD PHOS USE SMARTSET 71820 09/02/202408/13, 09/18/2022, 08/29/2021, Additional history exists Diabetic Eye Exam 10/23/2024 10/24/2023, , 10/09/2022, Additional history exists CKD HGB USE SMARTSET 97723 10/27/202410/27, 10/28/2023, 10/14/2023, Additional history exists COLONOSCOPY-EVERY [...] this encounter Medical Devices Implanted Type Area Director Of Orthopedics Device Identifier Shelf Expiration Date Model / Serial / Lot Envista Hydrophobic Acrylic Intraocular Lens Implanted:Qty: 1 on 12/25/2016 by Raul Neely MD at OR [facility] Right: Eye [employer] LOMB 11/09/2018 [id number] / [id number] / [id number] Envista Mx60 +10.0 D Implanted:Qty: 1 on 01/29/2017 by Raul Neely MD at OR [facility] Left: Eye 11/09/2018 [id number] / [id number] / [id number] documented as of this encounter Visit Diagnoses Diagnosis Anemia due to stage 3a chronic kidney disease (HCC)- Primary Gastric ulcer Gastric ulcer, unspecified as acute or chronic, without mention of hemorrhage, perforation, or obstruction documented in this encounter Administered Medications Inactive Administered Medications - up to 3 most recent administrations Medication Order MAR Action Action Date Dose Rate Site Epoetin Gautam-epbx (Retacrit) 08221 UNIT/ML inj 40,000 Units 40,000 Units, Subcutaneous, ONCE, On Tu10/29/23 at 1130, For 1 dose Given 10/29/2023 10:58 AM EDT 40,000 Units Arm Left Upper documented in [...] and were consensually agreed upon. Care Teams Powder Nipper Relationship Specialty Start Date End Date Nancy Ryan DO [address] [place] [address] [place] [address] PCP - General Internal Medicine 09/11/18 documented as of this encounter
--- OUTSIDE RECORDS SUMMARY | 2023-11-13 21:26 | External Medical Summary | Summary of Care ---
Author Name Unknown Organization [facility] Address [address] [place] [address] Phone [phone] Care Team Providers Care [facility] Firer/Fireman Name Role Phone Ryan Nancy Muro Primary Care Provider [phone] Reason for Visit * Reason Comments Follow Up 3m Encounter Details Date Type Department Care Team (Late st Contact Info) Description 10/15/2023 1:45 PM EST Office Visit Hematology/Oncology [facility] [address] [place] [address] Fly Velazquez MD [address] [place] [address] Anemia due to stage 3a chronic kidney disease (HCC)* Allergies No known active allergiesdocumented as of this encounter (statuses as of 10/15/2023) Medications Medication Sig Dispensed Refills Start Date End Date Status MULTIPLE VITAMIN PO TABS 1 TABLET DAILY 0 07/03/2011 Active OMEGA-3 FISH OIL 1000 MG PO CAPS Take one capsule by mouth daily 0 07/03/2011 Active Blood Glucose Monitoring Suppl (Cyan ULTRA SYSTEM) W/DEVICE KITIndications:DM type 2, goal [...] neuropathy, with long-term current use of insulin ([facility]),Type 2 diabetes mellitus with hemoglobin A1c goal [...] neuropathy, with long-term current use of insulin ([facility]) Use TWICE a day to test glucose Diagnosis = E11.9 200 Each 3 03/19/2023 Active Ozempic (2 MG/DOSE) 8 MG/3ML Subcutaneous Solution Pen-injector (Semaglutide (2 MG/DOSE))Indicatio ns:Type 2 diabetes mellitus with diabetic neuropathy, with long-term current use of insulin ([facility]) Inject 2 mg under the skin once [...] the morning. 0 06/04/2023 Active Epoetin Gautam-epbx 68398 UNIT/ML Injection Solution (Retacrit) Inject 2 mL [...] neuropathy, with long-term current use of insulin ([facility]) Inject 20 Units under the skin in [...] Overview: Non-obstructive. Noted on CT scan at [facility] 05/2019 Mild nonproliferative diabet ic retinopathy of [...] Obesity Taxonomy 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 of inactive term skilled nursing current use of ant icoagulant therapy 03/16/2005 [...] mRNA, LNP-s, No Pre serve, 2-Dose Series (Traitify) 06/20/2021,10/22/2020,09/26/2020 COVID-19, LNP-s, No Preserve , Jamie-sucrose, Ages 12+ (Traitify) 03/13/2022 Covid-19, Mrna, Lnp-s, Pf, B ivalent, 30 Mcg, IM, 12 yrs and above (Pfizer) 09/20/2022 Pneumococcal Conjugate Vacci ne, 20-valent ([id number]) 03/14/2022 Pneumococcal Polysaccharide PPV23 (Pneumovax) 03/19/2006 Seasonal [...] Date Smoking Tobacco: Never Smokeless Tobacco: Never Tobacco Cessation:Counseling Given: Not Answered Alcohol Use Standard Drinks/Week Comments Yes 0 [...] Sign Reading Time Taken Comments Blood Pressure 137/77 10/15/2023 1:30 PM EST Pulse 88 10/15/2023 1:30 PM EST Temperature 36.9 C (98.4 F) 10/15/2023 1:30 PM ES T Respiratory Rate 16 10/15/2023 1:30 PM EST Oxygen Saturation 98% 10/15/2023 1:30 PM EST Inhaled Oxygen Concentration - - Weight 141.7 kg (312 lb 8 oz) 10/15/2023 1:30 PM EST Height 180.3 cm (5' 11") 10/15/2023 1:30 PM EST Body Mass Index 43.58 10/15/2023 1:30 PM EST documented in this encounter Progress Notes * Fly Velazquez MD - 10/15/2023 1:45 PM EST NAME: Ronnie Wu :1955 68-year-old male, DIAGNOSIS: Anemia because of abnormal kidney function test ( stage 3 a) - previous history of lower extremity DVT, he was on long-term anticoagulation, right lower extremity DVT earlier in 1985, he is on oral Coumadin treatment since then, recently when he was admitted [facility], (August of 2023), he was advised to discontinue oral Coumadin. -chronic bilateral leg edema and leg ulceration for the last 4 to 5 years. CURRENT TREATMENT: Currently he is on erythropoietin 54046 units every other week. He has underlying sleep apnea, has been using CPAP on a regular basis. OTHER IMPORTANT HISTORY: -Sleep apnea, diagnosed about 8-10 years back, he is on CPAP therapy. - He was seen by paper feeder, had stress test, as per the patient it did not show any significant coronary disease, he takes baby aspirin on a regular basis, he is also on statin therapy for underlying hyperlipidemia. -diabetes mellitus for the last 15 years, he is on 4 different medications for blood sugar control. - He takes Vitamin B12 on a regular basis. INTERVAL HISTORY: He has come the clinic for the follow-up, accompanied by his in the office. Overall he is feeling well, denies any bleeding from the sites, he was on oral Coumadin, no new cardiac or pulmonary symptom chronic leg edema, chronic leg ulceration, earlier he was followed at wound care clinic at [facility] as well as at [place], lately he is not followed bythem, he is doing some home remedy with honey. No abdominal symptoms. No cardiac or pulmonary symptoms. No increasing headache. Currently he is not on any iron therapy. Past Medical History: Diagnosis Date Adult body mass index 50.0-59.9 ([facility]) 09/26/2010 Anemia 06/11/2001 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 management encounter 01/30/2002 Closed fracture of head of radius left wrist Closed fracture of phalanx of finger Fractured Finger #5 right digit DM neuropathy, type II diabetes mellitus ([facility]) 05/08/2016 DM type 2, goal A1c below 7 06/09/2009 DM type 2, not at goal ([facility]) DVT (deep venous thrombosis) ([facility]) 03/18/2012 Dyslipidemia, goal LDL below 100 05/28/2013 Edema 01/17/2010 Fall 01/22/2023 "not sure ho-13 fractures and brain bleed" Fracture of clavicle, closed right colar bone fractured Gout 04/18/2004 uric acid 7.9 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 (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) use of anticoagulants 03/16/2005 Lumbar degenerative disc disease 03/28/2016 Morbid Obesity, BMI not known Persistent insomnia 06/29/2014 Phlebitis and thrombophlebitis 06/11/2001 Phlebitis and thrombophlebitis of other deep vessels of lower extremities Restless legs syndrome 06/29/2014 Retinal tear 2006 left eye-treated at [facility] in [place] Sensory peripheral neuropathy 05/08/2016 SLEEP APNEA NOS 06/11/2001 Ulcer of lower limb ([facility]) 01/17/2010 Venous insufficiency 04/23/2013 Venous stasis dermatitis 11/09/2014 Venous stasis dermatitis of both lower extremities 11/30/2015 Vitamin B12 deficiency 05/28/2013 Past Surgical History: Procedure Laterality Date 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 COLONOSCOPY, DIAGNOSTIC (RECTUM) 2008 Dr Hope - [facility] COLONOSCOPY, DIAGNOSTIC (RECTUM) 02/09/2022 benign adenomatous polyp, fair prep, repeat 5 yrs / [facility] EGD, FLEXIBLE, DIAGNOSTIC 09/11/2018 adenomatous & TVA polyps, repeat 3 yrs/[facility] EGD, FLEXIBLE, DIAGNOSTIC 06/30/2021 mild gastric irritation, hyperplastic gastric polyps / [facility] EGD, FLEXIBLE, DIAGNOSTIC N/A 09/26/2023 gastritis/non-obstructing non-bleeding duodenal ulcers/biposies show inflammatory changes/repeat 3 months/ESOPHAGOGASTRODUODENOSCOPY (EGD), FLEXIBLE, TRANSORAL, DIAGNOSTIC performed by Echo Jeong DO at OR [facility] FLUORESCEIN ANGIOGRAPHY MULTIFRAME Left 06/12/2022 FA, Dr. Diaz INJECTION OF EYE DRUG Right 06/12/2022 # 1 Avastin OD, Dr. Diaz INJECTION OF EYE DRUG Right 09/17/2022 # 2 Avastin OD, Dr. Diaz INJECTION OF EYE DRUG Right 06/13/2023 #3 Avastin OD; Dr Diaz LASER TRABECULOPLASTY OTHER (INFORMATION) ACT 112 SIGNED 06/12/22 OPHTHALMOLOGY OTHER (INFORMATION) AVASTIN OUS CONSENT SIGNED Dr. Diaz/Karuna (exp 06-12-23) OTHER (INFORMATION) Bilateral AVASTIN CONSENT SIGNED EXP09/02/24, DR. DIAZ/KARUNA RELIEVE INNER EYE PRESSURE Right 12/25/2016 right GONIOTOMY performed by Raul Neely MD at OR [facility] RELIEVE INNER EYE PRESSURE Left 01/24/2017 left GONIOTOMY performed by Raul Neely MD at OR [facility] RELIEVE INNER EYE PRESSURE Left 01/29/2017 left GONIOTOMY performed by Raul Neely MD at OR [facility] REMOVE CATARACT, INSERT LENS PROSTH Right 12/25/2016 right EXTRACAPSULAR CATARACT REMOVAL WITH INTRAOCULAR LENS performed by Raul Neely MD at OR [facility] REMOVE CATARACT, INSERT LENS PROSTH Left 01/24/2017 left EXTRACAPSULAR CATARACT REMOVAL WITH INTRAOCULAR LENS performed by Raul Neely MD at OR [facility] REMOVE CATARACT, INSERT LENS PROSTH Left 01/29/2017 left EXTRACAPSULAR CATARACT REMOVAL WITH INTRAOCULAR LENS performed by Raul Neely MD at OR [facility] TREATMENT OF EXTENSIVE RETINOPATHY, PHOTOCOAGULATION Right 07/17/2023 Laser treatment OD, Dr. Diaz VASC DUPLEX VENOUS LE BILAT 10/19/2009 no DVT, possible right inguinal lymph node 5x1x4 cm VEIN ABLATION EXTREMITY,ENDOVEN,1ST Left 04/2017 [facility] Current Outpatient Medications Medication Sig Dispense Refill MULTIPLE VITAMIN PO TABS 1 TABLET DAILY 0 OMEGA-3 FISH OIL 1000 MG PO CAPS Take one capsule by mouth daily 0 Blood Glucose Monitoring Suppl (NantWorks SYSTEM) W/DEVICE KIT Use as directed 4 times a day. Use up to four times a day as directed. Diagnosis = E11.9 1 Kit 0 dorzolamide-timolol (COSOPT OCUMETER PLUS) 2.23-0.68% ophthalmic solution INSTILL 1 DROP INTO BOTH EYES BY OPHTHALMIC ROUTE ONCE IN THE MORING AND THE SECOND DROP AROUND 5 PM 4 Aspirin 81 MG Tablet Take 1 Tablet by mouth in the morning. BD Pen Needle Wilda U/F 32G X 4 MM (Insulin Pen Needle) Use once a day with basaglar. DX e11.9 100 Each 3 Rhopressa 0.02 % Ophthalmic Solution Instill 1 Drop into the left eye at bedtime. Vitamin C 1000 MG Oral Tablet Take 1 Tablet by mouth in the morning. Allopurinol 300 MG Oral Tablet (Zyloprim) TAKE 1 TABLET BY MOUTH EVERY DAY 90 Tablet 3 Carvedilol 6.25 MG Oral Tablet (Coreg) TAKE 1 TABLET BY MOUTH TWICE A DAY WITH BREAKFAST AND [id number] Tablet 3 OneTouch Verio In Vitro Strip (Glucose Blood) Use to test blood sugars twice a day. Dx. E11.9 300 Strip 1 OneTouch Delica Lancets 30G Use TWICE a day to test glucose Diagnosis = E11.9 200 Each 3 Ozempic (2 MG/DOSE) 8 MG/3ML Subcutaneous Solution Pen-injector (Semaglutide (2 MG/DOSE)) Inject 2 mg under the skin once a week. DX E11.9 Diabetes Mellitus (Patient taking differently: Inject 1 mg under the skin once a week. DX E11.9 Diabetes Mellitus) 3 mL 5 Allopurinol 100 MG Oral Tablet (Zyloprim) Take 1 Tablet by mouth in the morning. Take 1 tablet by mouth in the morning in addition to 300 mg tablet for a total dose of 400 mg.. 90 Tablet 3 metFORMIN HCl 500 MG Oral Tablet (Glucophage) Take 1 Tablet by mouth 2 times a day with morning andevening meals. 180 Tablet 3 Losartan Potassium 50 MG Oral Tablet (Cozaar) Take 0.5 Tablets by mouth in the morning. Epoetin Gautam-epbx 32199 UNIT/ML Injection Solution (Retacrit) Inject 2 mL intravenously once. Everytwo weeks Torsemide 20 MG Oral Tablet (Demadex) Take 1 Tablet by mouth in the morning. 90 Tablet 3 Vitamin D3 125 MCG (5000 UT) Oral Tablet Chewable Take by mouth. Chlorthalidone 25 MG Oral Tablet (Hygroton) Take 1 Tablet by mouth in the morning. 90 Tablet 3 Atorvastatin Calcium 20 MG Oral Tablet (Lipitor) TAKE 1 TABLET BY MOUTH EVERY DAY IN THE MORNING 90Tablet 3 Insulin Glargine Solostar 100 UNIT/ML Subcutaneous Solution Pen-injector (Basaglar KwikPen) Inject 20 Units under the skin in the morning. Omeprazole 40 MG Oral Capsule Delayed Release (PriLOSEC) Take 1 Capsule by mouth in the morning. 1 hour before the first meal of the day. 90 Capsule 3 Current Facility-Administered Medications Medication Dose Route Frequency Provider Last Rate Last Admin bevaCIZumab (Avastin) inj 1.25 mg 1.25 mg Intravitreal PRN CessnaMychalopher T, DO 1.25 mg at 06/13/23 1143 ROPivacaine (Naropin) inj 1.5 mg 1.5 mg Perineural PRN Cessna, Mychalopher T, DO 1.5 mg at 144 Family History Problem Relation Age of Onset Heart Disorder Mother cabg Hypertension Mother Arthritis Father gout Heart Disorder Father d at 68 Diabetes Father Hypertension Father Arthritis Brother gout Arthritis Brother gout Diabetes Grandmother (Maternal) Eye Problems Grandmother (Maternal) Glaucoma Diabetes Grandmother (Paternal) Cancer Aunt (Unspecified) bone Eye Problems Aunt (Unspecified) Glaucoma Glaucoma Aunt (Unspecified) Eye Problems Uncle (Unspecified) had DM and had problems with his eyes Diabetes Uncle (Unspecified) Cataracts Grandfather (Maternal) Diabetes Grandfather (Maternal) Social History Socioeconomic History Marital status: Spouse name: Not on file Number of children: 0 Years of education: Not on file Highest education level: Not on file Occupational History 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 [employer] Employer: [employer] Tobacco Use Smoking status: Never Smokeless tobacco: Never Vaping Use Vaping Use: Never used Substance and Sexual Activity Alcohol use: Yes Comment: maybe once a month about 4 beers Drug use: No Sexual activity: Yes Partners: Female Other Topics Concern Service No Blood Transfusions No Caffeine Concern No Occupational Exposure No Hobby Hazards No Sleep Concern Yes Stress Concern No Weight Concern Yes Special Diet Yes Back Care Not Asked Exercise Yes Bike Helmet Not Asked Seat Belt Yes Self-Exams Not Asked Social History Narrative Not on file Social Determinants of Health Financial Resource Strain: Not on file Food Insecurity: No Food Insecurity (07/22/2019) Hunger Vital Sign Worried About Running Out of Food in the Last Year: Never true Ran Out of Food in the Last Year: Never true Transportation Needs: Not on file Physical Activity: Not on file Stress: Not on file Social Connections: Not on file Intimate Partner Violence: Not on file Housing Stability: Not on file On exam: BP 137/77 (BP Site: Left Arm, BP Position: Sitting, BP Cuff Size: Large) | Pulse 88 | Temp 36.9 C(98.4 F) (Tympanic) | Resp 16 | Ht 1.803 m (5' 11") | Wt (!) 141.7 kg (312 lb 8 oz) | SpO2 98% | BMI 43.58 kg/m | BSA 2.66 m Constitutional: Patient is alert, cooperative and oriented x 3. Well built man, Patient is in no acute distress. HEENT:No icterus, no pallor, Throat and pharynx normal. Sinuses are non-tender. Neck: Supple and without lymphadenopathy or masses. No JVD. No Palpable supraclavicular lymph nodes. Lungs: Clear to auscultation. Bilateral symmetric air entry. No wheezing or rhonchi. Cardiovascular: Normal heart sounds, no murmurs.Regular rate and rhythm. Abdomen: soft, nontender, no hepatomegaly, no splenomegaly. Bowel sounds are normal. Neurological: No gross focal neurological deficit; walks with a normal gait. Extremities: No finger clubbing, No cyanosis. Skin:: No skin rash. SPINE: No spinal or paraspinal tenderness. His showed me pictures of bilateral leg ulcers on her phone. LABS: Blood workup done on 06/07/2023 - BUN/Creat: 43/1.7, normal LFT, calcium 8.9. - Ferritin level --> 190. - Folic acid --> > 20 - Vitamin B-12 --> 827 - Serum iron 40, TIBC 339, iron saturation 12%. Blood workup done on 06/28/2023: - WBC 7900, H&H of 8.8/27.5, platelet count of 231,000. Blood workup done on 10/14/2023: -WBC 5700, H&H of 8.7/27, Platelet count of 233,000 -BUN/Creat: 17/1.9, Calcium 9.4, normal LFT -Ferritin level --> 622 -folic acid --> > 20 -Vitamin B12 --> 1145 -Serum iron: 66, TIBC 300, iron saturation 22% ASSESSMENT AND PLAN: 68-year-old male, who has anemia related to abnormal kidney function test( stage 3 a), [place] [address] units every other week started on 04/09/2023. Overall tolerated well, blood pressure is slightly on the higher side, he is already on oral Coumadin for previously noted lower extremity DVT, has chronic bilateral leg edema and stasis ulcer and sohe was on long-term anticoagulant treatment but recently in August of 2019, when he was admitted at [facility], he would Doppler evaluation, there was no evidence of DVT, he was advised to discontinue oral Coumadin. No new bleeding complications I reviewed his recent blood workup, hemoglobin level is around 8.7 g/dL. Currently he is on erythropoietin 91066 units every other week. I would like to continue same dose.He has bilateral leg ulceration which is causing chronic inflammation and hemoglobin likely to stayin that range. Other disadvantage of higher dose of erythropoietin would be increased risk of thrombotic complications she lives when he is off the oral Coumadin at this time Currently he has not on oral iron replacement therapy Will continue erythropoietin 16753 units every other week if the hemoglobin level is less than 11 g/dL. I am planning to see him back in the clinic about 3 [address] Fly Velazquez Hem/Onc (This note was completed using the dictation program Fluency Direct. As such, there may be misspellings word substitutions, or other variations that should not change the essence of the clinical content of this encounter note. If there is need for further clarification, please direct questions to the provider listed above.) documented in this encounter Nursing Notes * Elizabeth Griffith LPN - 10/15/2023 1:30 PM EST Patient identifed by name and birthdate Do you have any concerns about pain management for today's visit? Yes Living Will or Advance Directive for Health Care as noted on the problem list. [facility] is a way you can talk to your provider on line through e-mail. Would you like to sign up? I can activate it for you? ALREADY ACTIVE Filed Vitals: 10/15/23 1330 BP: 137/77 Pulse: 88 Resp: 16 Temp: 36.9 C (98.4 F) TempSrc: Tympanic SpO2: 98% Weight: (!) 141.7 kg (312 lb 8 oz) Height: 1.803 m (5' 11") Patient was instructed to not get up on the exam table/exam chair until directed and assisted by their provider; patient is to remain seated in the chair/ wheelchair/ exam table/ exam chair for fall prevention and safety reasons. Patient is aware to have assistance to step down off exam table/exam chair with personnel. Patient voiced full comprehension of instructions. documented in this encounter Plan of Treatment Upcoming Encounters Date Type Department Care Team (Latest Contact Info) Description 4 10:00 AM EDT Office Visit Sleep Disorders [facility] [address] [place] [phone] Dorothy Toscano CRNP [address] [place] [address] 4 2:00 PM EDT Office Visit Ophthalmology, [facility] [address] [place] [address] Mika Diaz, [address] [place] [address] 4 9:40 AM EDT Laboratory Laboratory [address] [place] [phone] [place] [address] 4 10:45 AM EDT Immunization/In jection Hematology/Onco logy Treatment, [place] [address] [place] [phone] Nurse, Med 4 [address] [facility] [place] [address] 4 9:30 AM EDT Laboratory Laboratory [address] [place] [phone] [place], Lab [address] [place] [address] 4 10:45 AM EDT Immunization/In jection Hematology/Onco logy Treatment, [place] [address] [facility] [place] [phone] Nurse, Med 4 200 [facility] [place] [address] 4 11:40 AM EDT Office Visit Family Medicine [address] [place] [phone] Marry Hansen, [address] [place] [address] 4 2:00 PM EDT Office Visit Nephrology, [facility] [address] [facility] [place] [address] Beckie Dunbar PA-C [address] [facility] [place] [address] 4 2:36 PM EDT Hospital Encounter OR [facility], Operating Room, [facility] - 4th Floor [address] [place] [place] [address] Jayda Jeong, DO [address] [place] [address] 4 2:36 PM EDT - 4 3:09 PM EDT Surgery OR [facility], Operating Room, [facility] - 4th Floor [address] [place] [address] Jayda Jeong, DO [address] [place] [address] ESOPHAGOGASTRODUODENOSCOPY (EGD), FLEXIBLE, TRANSORAL, DIAGNOSTIC 4 10:45 AM EDT Office Visit Hematology/Onco logy [address] [place] [address] [facility] [place] [phone] Fly Velazquez MD [address] [place] [address] Scheduled Procedures Name Priority Associated Diagnoses Date/Ti [...] Additional history exists CKD PHOS USE SMARTSET 58417 09/02/202408/13, 09/18/2022, 08/29/2021, Additional history exists CKD HGB USE SMARTSET 00175 10/13/202410/13, 10/14/2023, 09/30/2023, Additional history exists COLONOSCOPY-EVERY [...] this encounter Medical Devices Implanted Type Area Slip Operator Device Identifier Shelf Expiration Date Model / Serial / Lot Envista Hydrophobic Acrylic Intraocular Lens Implanted:Qty: 1 on 12/25/2016 by Raul Neely MD at OR [facility] Right: Eye [employer] 11/09/2018 [id number] / [id number] / [id number] Envista Mx60 +10.0 D Implanted:Qty: 1 on 01/29/2017 by Raul Neely MD at OR [facility] Left: Eye 11/09/2018 [id number] / [id number] / [id number] documented as of this encounter Visit Diagnoses [...] and were consensually agreed upon. Care Teams Roundhouse Firer/Fireman Relationship Specialty Start Date End Date Nancy Ryan DO [address] [place] [address] [place] [address] PCP - General Internal Medicine 09/11/18 documented as of this encounter
--- OUTSIDE RECORDS SUMMARY | 2023-11-13 21:26 | External Medical Summary | Summary of Care ---
Author Name Unknown Organization [facility] Address [address] [place] [address] Phone [phone] Care Team Providers Care Binder Stripper Machine Name Role Phone Lacy Ryananda Jina ALVAREZ Primary Care Provider [phone] Reason for Visit * Reason Comments Follow [...] AM EDT Office Visit Sleep Disorders Ctr [facility] [address] [facility] [place] [phone] Dorothy Toscano CRNP 132 [facility] [place] [address] Obstructive sleep apnea* Allergies No known active allergiesdocumented as of this encounter (statuses as of 10/23/2023) Medications Medication Sig Dispensed Refills Start Date [...] neuropathy, with long-term current use of insulin ([facility]),Type 2 diabetes mellitus with hemoglobin A1c goal of less than 7.0% ([facility]) Use once a day with basaglar. [...] AND DINNER 180 Tablet 3 12/10/2022 Active RapidMindTouch Verio In Vitro Strip (Glucose Blood) Use to test blood sugars twice a day. Dx. E11.9 300 Strip 1 03/13/2023 Active NovoPolymersuch Deloneal Lancets 30GIndications:Typ e 2 diabetes mellitus with diabetic neuropathy, with long-term current use of insulin ([facility]) Use TWICE a day to test glucose Diagnosis = E11.9 200 Each 3 03/19/2023 Active Ozempic (2 MG/DOSE) 8 MG/3ML Subcutaneous Solution Pen-injector (Semaglutide (2 MG/DOSE))Indicatio ns:Type 2 diabetes mellitus with diabetic neuropathy, with long-term current use of insulin ([facility]) Inject 2 mg under the skin [...] the morning. 0 06/04/2023 Active Epoetin Gautam-epbx 47211 UNIT/ML Injection Solution (Retacrit) Inject 2 mL [...] neuropathy, with long-term current use of insulin ([facility]) Inject 20 Units under the skin [...] as of this encounter (statuses as of 10/23/2023) Active Problems Problem Noted Date Diagnosed Date [...] Overview: Non-obstructive. Noted on CT scan at [facility] 05/2019 Mild nonproliferative diabet ic retinopathy [...] as of this encounter (statuses as of 10/23/2023) Resolved Problems Problem Noted Date Diagnosed Date [...] Obesity Taxonomy 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 of inactive term long-term current use of ant icoagulant therapy 03/16/2005 [...] as of this encounter (statuses as of 10/23/2023) Immunizations Name Administration Dates Next Due COVID-19 mRNA, LNP-s, No Pre serve, 2-Dose Series ([email or web address]) 06/20/2021,10/22/2020,09/26/2020 COVID-19, LNP-s, No Preserve , Jamie-sucrose, Ages 12+ (Pfizer) 03/13/2022 Covid-19, Mrna, Lnp-s, Pf, B ivalent, 30 Mcg, IM, 12 yrs and above (Pfizer) 09/20/2022 Pneumococcal Conjugate Vacci ne, 20-valent ([email or web address]) 03/14/2022 Pneumococcal Polysaccharide PPV23 (Pneumovax) 03/19/2006 Seasonal [...] Progress Notes * Dorothy Toscano CRNP - 10/23/2023 10:07 AM EDT [facility] Ronnie Wu is a [...] schedule established at the last visit was [phone]. Interim History: Doing better since the pressures [...] in today) Equipment: DME Provider: AQUILINO Device: [employer] Settings: 13-18 cmH20 Interface Type: FFM Humidifier: not used [place] Sleepiness Scale Question 10/23/2023 10:06 AM EDT [...] neuropathy, with long-term current use of insulin ([facility]) E11.40, Z79.4 Gout of wrist M10.9 Venous insufficiency I87.2 Vitamin B12 deficiency E53.8 Dyslipidemia, goal LDL below 100 E78.5 Venous stasis dermatitis of both lower extremities I87.2 DM neuropathy, type II diabetes mellitus ([facility]) E11.40 History of DVT (deep vein thrombosis) Z86.718 Venous stasis ulcer of calf ([facility]) I83.002, L97.209 H/O amputation of lesser toe, unspecified laterality ([facility]) Z89.429 HTN, goal below 140/90 I10 Iron deficiency anemia due to chronic blood loss D50.0 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 associated with type 2diabetes mellitus ([facility]) E11.3292 Hyperkalemia E87.5 Renal calculi N20.0 Non-pressure chronic ulcer of unspecified part of left lower leg with unspecified severity ([facility]) L97.929 Varicose veins of right lower extremity with ulcer other part of lower leg (CODE) ([facility]) I83.018 Stage 3a chronic kidney disease N18.31 Non-pressure chronic ulcer of unspecified part of right lower leg with unspecified severity ([facility]) L97.919 Acute gout due to renal impairment involving right wrist M10.331 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 Carpal tunnel syndrome of right wrist G56.01 Chronic right-sided heart failure ([facility]) I50.812 Other specified peripheral vascular diseases ([facility]) I73.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, multiple sites, without tophus (tophi) M1A.39X0 Tubular adenoma D36.9 History of adenomatous polyp of colon Z86.010 Non-pressure chronic ulcer of lower leg, limited to breakdown of skin ([facility]) L97.901 Chronic venous hypertension (idiopathic) with ulcer of bilateral lower extremity (CODE) ([facility]) I87.313 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 ([facility]) E11.3593 Anemia due to stage 3a chronic kidney disease ([facility]) N18.31, D63.1 Venous stasis ulcer of right calf limited to breakdown of skin ([facility]) I83.012, L97.211 Body mass index (BMI) of 40.0 to 44.9 in adult ([facility]) Z68.41 Current Medications: Outpatient Medications Marked [...] by mouth in the morning. Epoetin Gautam-epbx 84296 UNIT/ML Injection Solution (Retacrit) Inject 2 mL [...] AROUND 5 PM Blood Glucose Monitoring Suppl ([employer] ULTRA SYSTEM) W/DEVICE KIT Use as directed [...] for use nightly Continue regular sleep-wake scheduling, 9637-0627 being the goal striving for closer to 7 hours of sleep Routine cleaning and change of supplies as needed was encouraged. Continue to avoid engaging in activities that require full alertness when feeling sleepy or tired. Follow-up in 6-12 months pending review of download. JALEEL Abdi Pulmonary & Sleep Medicine [facility] I spent a total of 30-39 minutes [...] them when he fell and they burn. [place] Sleepiness Scale Question 10/23/2023 10:06 AM EDT [...] Care Team (Latest Contact Info) Description 4 2:00 PM EDT Office Visit Ophthalmology, [facility] [address] [place] [address] Mika Diaz, [address] [place] [address] 4 9:40 AM EDT Laboratory Laboratory [address] [place] [phone] [address] [place] [address] 4 10:45 AM EDT Immunization/In jection Hematology/Onco logy Treatment, [address] [phone] Nurse, Med 4 200 [facility] [place] [address] 4 9:30 AM EDT Laboratory Laboratory [address] [place] [phone] [place] [address] 4 10:45 AM EDT Immunization/In jection Hematology/Onco logy Treatment, [address] [phone] Nurse, Med 4 200 [facility] [place] [address] 4 11:40 AM EDT Office Visit Family Medicine [address] [place] [phone] Marry Hansen [address] [place] [address] 4 2:00 PM EDT Office Visit Nephrology, [address] [place] [address] ZeBeckie cruz PA-C [facility] [place] [address] 4 2:36 PM EDT Hospital Encounter OR [facility], Operating Room, [facility] - 4th Floor 400 [place] [address] Jayda Jeong, DO [address] [place] [address] 4 2:36 PM EDT - 4 3:09 PM EDT Surgery OR [facility], Operating Room, [facility] - 4th Floor 400 [facility] [place] [address] Jayda Jeong, DO [address] [place] [address] ESOPHAGOGASTRODUODENOSCOPY (EGD), FLEXIBLE, TRANSORAL, DIAGNOSTIC 4 10:45 AM EDT Office Visit Hematology/Onco logy [place] [address] [facility] [place] [phone] Fly Velazquez MD 200 [facility] [place] [address] 5 10:00 AM EDT Office Visit Sleep Disorders Ctr Manny Browne [place] [address] [place] [phone] Dorothy Toscano CRNP [address] [place] [address] Scheduled Procedures Name Priority Associated Diagnoses Date/Ti [...] Additional history exists CKD PHOS USE SMARTSET 27935 09/02/202408/13, 09/18/2022, 08/29/2021, Additional history exists CKD HGB USE SMARTSET 05776 10/13/202410/13, 10/14/2023, 09/30/2023, Additional history exists COLONOSCOPY-EVERY [...] this encounter Medical Devices Implanted Type Area Meeting Manager Device Identifier Shelf Expiration Date Model / Serial / Lot Envista Hydrophobic Acrylic Intraocular Lens Implanted:Qty: 1 on 12/25/2016 by Raul Neely MD at OR [facility] Right: Eye [employer] 11/09/2018 [id number] / [id number] / [id number] Envista Mx60 +10.0 D Implanted:Qty: 1 on 01/29/2017 by Raul Neely MD at OR [facility] Left: Eye 11/09/2018 [id number] / [id number] / [id number] documented as of this encounter Visit Diagnoses [...] and were consensually agreed upon. Care Teams Binder Stripper Machine Relationship Specialty Start Date End Date Nancy Ryan DO [address] [place] [address] [place] [phone] PCP - General Internal Medicine 09/11/18 documented as of this encounter
--- OUTSIDE RECORDS SUMMARY | 2023-11-13 21:26 | External Medical Summary | Summary of Care ---
Author Name Unknown Organization [facility] Address [address] [place] [address] Phone [phone] Care Team Providers Care Collections Curator Name Role Phone Nancy Ryan DO Primary Care Provider Reason for Visit * Reason Comments Outpatient Testing Encounter Details Date Type Department Care Team (Late st Contact Info) Description 10/28/2023 9:40 AM EDT Laboratory Laboratory [address] [place] [phone] [facility] [address] [place] [address] Anemia due to stage 3a chronic kidney disease (HCC) Allergies No known active allergiesdocumented as of this encounter (statuses as of 10/28/2023) Medications Medication Sig Dispensed Refills Start Date End Date Status MULTIPLE VITAMIN PO TABS 1 TABLET DAILY 0 07/03/2011 Active OMEGA-3 FISH OIL 1000 MG PO CAPS Take one capsule by mouth daily 0 07/03/2011 Active Blood Glucose Monitoring Suppl ([employer] ULTRA SYSTEM) W/DEVICE KITIndications:DM type 2, goal [...] neuropathy, with long-term current use of insulin ([facility]),Type 2 diabetes mellitus with hemoglobin [...] neuropathy, with long-term current use of insulin ([facility]) Use TWICE a day to test glucose Diagnosis = E11.9 200 Each 3 03/19/2023 Active Ozempic (2 MG/DOSE) 8 MG/3ML Subcutaneous Solution Pen-injector (Semaglutide (2 MG/DOSE))Indicatio ns:Type 2 diabetes mellitus with diabetic neuropathy, with long-term current use of insulin ([facility]) Inject 2 mg under the [...] neuropathy, with long-term current use of insulin ([facility]) Take 1 Tablet by mouth 2 times a day with morning and evening meals. 180 Tablet 3 05/17/2023 Active Losartan Potassium 50 MG Oral Tablet (Cozaar) Take 0.5 Tablets by mouth in the morning. 0 06/04/2023 Active Epoetin Gautam-epbx 22578 UNIT/ML Injection Solution (Retacrit) Inject 2 mL [...] neuropathy, with long-term current use of insulin ([facility]) Inject 20 Units under the [...] Overview: Non-obstructive. Noted on CT scan at [facility] 05/2019 Mild nonproliferative diabet [...] Obesity Taxonomy 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 of inactive term technician terminal and repeater current use of ant icoagulant therapy 03/16/2005 [...] mRNA, LNP-s, No Pre serve, 2-Dose Series ([employer]) 06/20/2021,10/22/2020,09/26/2020 COVID-19, LNP-s, No Preserve , Jamie-sucrose, Ages 12+ (Kinopto) 03/13/2022 Covid-19, Mrna, Lnp-s, Pf, B ivalent, 30 Mcg, IM, 12 yrs and above (Pfizer) 09/20/2022 Pneumococcal Conjugate Vacci ne, 20-valent ([id number]) 03/14/2022 Pneumococcal Polysaccharide PPV23 (Pneumovax) 03/19/2006 Seasonal [...] Contact Info) Description 4 10:45 AM EDT Immunization/In jection Hematology/Onco logy Treatment, [place] [address] [facility] [place] [address] Nurse, Med 4 [address] [place] [address] 4 9:30 AM EDT Laboratory Laboratory [address] [place] [phone] [place], Lab [address] [place] [address] 4 10:45 AM EDT Immunization/In jection Hematology/Onco logy Treatment, [place] [facility] [place] [phone] Nurse, Med 4 [address] [place] [address] 4 11:40 AM EDT Office Visit Family Medicine [address] [place] [phone] Marry Hansen, [address] [place] [address] 4 11:30 AM EDT Office Visit Ophthalmology, [facility] [address] [place] [address] Mika Diaz, DO [address] [place] [address] 4 2:00 PM EDT Office Visit Nephrology, [facility] 200 [facility] [place] [address] Zemaitis, Beckie Tucker PA-C [address] [place] [address] 4 2:36 PM EDT Hospital Encounter OR [facility], Operating Room, [facility] - 4th Floor [address] [place] [address] [place] [phone] Jayda Jeong, DO [address] [place] [address] 4 2:36 PM EDT - 4 3:09 PM EDT Surgery OR [facility], Operating Room, [facility] - 4th Floor [address] [place] [address] Jayda Jeong, DO [address] [place] [address] ESOPHAGOGASTRODUODENOSCOPY (EGD), FLEXIBLE, TRANSORAL, DIAGNOSTIC 4 10:45 AM EDT Office Visit Hematology/Onco logy [place] 200 [facility] [place] [phone] Fly Velazquez MD 200 [facility] [place] [address] 5 10:00 AM EDT Office Visit Sleep Disorders Ctr [facility] [address] [place] [phone] Dorothy Toscano CRNP [address] [place] [address] Pending Results Name Type Priority Associated Diagnoses Date /Time CBC WITH WBC DIFFERENTIAL Lab STAT Anemia due to stage 3a chronic kidney disease (HCC) 10/28/2023 9:54 AM EDT CBC Lab STAT Anemia due to stage 3a chronic kidney disease (HCC) 10/28/2023 9:54 AM EDT DIFFERENTIAL, AUTOMATED Lab STAT Anemia due to stage 3a chronic kidney disease (HCC) 10/28/2023 9:54 AM EDT Scheduled Procedures Name Priority Associated [...] Additional history exists CKD PHOS USE SMARTSET 86285 09/02/202408/13, 09/18/2022, 08/29/2021, Additional history exists CKD HGB USE SMARTSET 19758 10/13/202410/13, 10/14/2023, 09/30/2023, Additional history exists Diabetic [...] this encounter Medical Devices Implanted Type Area General Manager In Training Device Identifier Shelf Expiration Date Model / Serial / Lot Envista Hydrophobic Acrylic Intraocular Lens Implanted:Qty: 1 on 12/25/2016 by Raul Neely MD at OR [facility] Right: Eye [employer] 11/09/2018 [id number] / [id number] / [id number] Envista Mx60 +10.0 D Implanted:Qty: 1 on 01/29/2017 by Raul Neely MD at OR [facility] Left: Eye 11/09/2018 [id number] / [id number] / [id number] documented as of this encounter Visit Diagnoses [...] and were consensually agreed upon. Care Teams Collections Curator Relationship Specialty Start Date End Date Nancy Ryan DO [address] [place] [address] [place] [phone] PCP - General Internal Medicine 09/11/18 documented as of this encounter
--- OUTSIDE RECORDS SUMMARY | 2023-11-13 21:27 | External Medical Summary ---
Author Name Unknown Address Unknown Organization [id number]:[facility] [place] [address] [address] Laboratory Report Ordering Provider Test Date Status KACYJANE 10/14/2023 10:12:56 Final Observation Date Value Abnormality Reference (Units ) Status Ferritin 10/14/2023 10:12:56 622 Above high normal 30 -400 (ng/mL) Final Performing Location LABORATORY [facility] - [address] [place] [address]
--- OUTSIDE RECORDS SUMMARY | 2023-11-13 21:27 | External Medical Summary ---
Author Name Unknown Address Unknown Organization [id number]:LAB[facility]ATORY [facility] [place] - [address] [facility] [address] Laboratory Report Ordering Provider Test Date Status JANE WOODRUFF 10/14/2023 10:12:56 Final Observation Date Value Abnormality Reference (Units ) Status SYNC LEUKOCYTES IN BLOOD BY AUTOMATED COUNT 10/14/2023 10:12:56 5.74 4.00-10.80 (K/uL) Final Segs 10/14/2023 10:12:56 58.1 40.0-75.0 (%) Final Lymphs % 10/14/2023 10:12:56 27.5 18.0-42.0 (%) Final Monos 10/14/2023 10:12:56 7.5 1.0-11.0 (%) Final Eosinophils 10/14/2023 10:12:56 5.7 0.0-6.0 (%) Final Basos 10/14/2023 10:12:56 1.0 0.0-2.0 (%) Final Immature Granulocyte, Percent 10/14/2023 10:12:56 0.2 0.0-2.0 (%) Final Absolute Segs 10/14/2023 10:12:56 3.33 1.80-7.70 (K/uL) Final Lymphs, absolute 10/14/2023 10:12:56 1.58 1.00-4.80 (K/ul) Final Monos, Abs 10/14/2023 10:12:56 0.43 0.00-1.10 (K/uL) Final Eos, Abs 10/14/2023 10:12:56 0.33 0.00-0.70 (K/uL) Final Basos, Abs 10/14/2023 10:12:56 0.06 0.00-0.20 (K/uL) Final Immature Granulocytes, Number 10/14/2023 10:12:56 0.01 0.00-0.20 (K/uL) Final Performing Location LABORATORY [facility] [place] - [address] [facility] [address]
--- OUTSIDE RECORDS SUMMARY | 2023-11-13 21:27 | External Medical Summary ---
Author Name Unknown Address Unknown Organization [id number][place] [facility] [place] [address] [place] [address] Laboratory Report Ordering Provider Test Date Status KACYJANE 10/14/2023 10:12:56 Final Observation Date Value Abnormality Reference (Units ) Status Folic Acid 10/14/2023 10:12:56 >20.0 >4.5 (ng/ mL) Final Performing Location [facility] [place] [address] [place] [address]
--- OUTSIDE RECORDS SUMMARY | 2023-11-13 21:27 | External Medical Summary ---
Author Name Unknown Address Unknown Organization K01:LABORATORY [facility] - [address] [facility] [address] Laboratory Report Ordering Provider Test Date Status JANE WOODRUFF 10/14/2023 10:12:56 Final Observation Date Value Abnormality Reference (Units ) Status BUN 10/14/2023 10:12:56 78 Above high normal 6-20 (mg/dL) Final Creatinine 10/14/2023 10:12:56 1.9 Above high normal 0.6-1.2 (mg/dL) Final Glomerular filtration rate/1.73 sq M.predicted [Volume Rate/Area] in Serum, Plasma or Blood by Creatinine-based formula (CKD-EPI) 10/14/2023 10:12:56 38 Below low normal >=60 (mL/min) Final eGFR is calculated based on the CKD-EPI 2020 equation SODIUM 10/14/2023 10:12:56 136 135-146 (m mol/L) Final Potassium 10/14/2023 10:12:56 4.4 3.5-5.1 (m mol/L) Final Cl 10/14/2023 10:12:56 103 98-107 (mm ol/L) Final CO2 10/14/2023 10:12:56 20 Below low normal 22- 32 (mmol/L) Final Anion gap 10/14/2023 10:12:56 13 7-15 (mmol /L) Final Glucose 10/14/2023 10:12:56 197 Above high normal 70 -120 (mg/dL) Final Albumin 10/14/2023 10:12:56 3.7 Below low normal 3.8 -5.0 (g/dL) Final AST (Aspartate aminotransferase) 10/14/2023 10:12:56 20 10-50 (U/L) Fin al Alk Phos 10/14/2023 10:12:56 97 35-130 (U/ L) Final Bilirubin, Total 10/14/2023 10:12:56 0.5 <=1 .2 (mg/dL) Final Calcium 10/14/2023 10:12:56 9.4 8.4-10.2 ( mg/dL) Final Protein 10/14/2023 10:12:56 7.4 6.0-8.3 (g /dL) Final ALT (Alanine aminotransferase) 10/14/2023 10:12:56 12 10-50 (U/L) [place] white Performing Location LABORATORY [facility] - [address] [facility] [address]
--- OUTSIDE RECORDS SUMMARY | 2023-11-13 21:27 | External Medical Summary | Summary of Care ---
Author Name Unknown Organization [facility] Address [address] [place] [address] Phone [phone] Care Team Providers Care Slice Plug Cutter Operator Helper Name Role Phone Ibrahim Marlon Muro Primary Care Provider [phone] Reason for Visit * Reason Comments Chronic Kidney Disease (CKD) Hospital Follow-Up Encounter Details Date Type Department Care Team (Late st Contact Info) Description 09/19/2023 1:00 PM EST Office Visit Nephrology [address] [place] [address] Alejandrina Sims MD 200 [facility] [place] [address] HTN, goal below 130/80*; Stage 3a chronic kidney disease (HCC); Anemia of chronic disease; Chronic right-sided heart failure (HCC); Hyperuricemia Allergies No known active allergiesdocumented as of this encounter (statuses as of 10/11/2023) Medications Medication Sig Dispensed Refills Start Date End Date Status MULTIPLE VITAMIN PO TABS 1 TABLET DAILY 0 07/03/20 11 Active OMEGA-3 FISH OIL 1000 MG PO CAPS Take one capsule by mouth daily 0 07/03/20 11 Active Blood Glucose Monitoring Suppl (Protection Plus SYSTEM) W/DEVICE KITIndications:D M type 2, goal A1c below 7 Use as directed 4 times a day. Use up to four times a day as directed. Diagnosis = E11.9 1 Kit 0 06/29/20 15 Active dorzolamide-steve lol (COSOPT OCUMETER PLUS) 2.23-0.68% ophthalmic solution INSTILL 1 DROP INTO BOTH EYES BY OPHTHALMIC ROUTE ONCE IN THE MORING AND THE SECOND DROP AROUND 5 PM 4 10/28/19 19 Active Aspirin 81 MG Tablet Take 1 Tablet by mouth in the morning. 0 Active BD Pen Needle Wilda U/F 32G X 4 MM (Insulin Pen Needle)Indicatio ns:Type 2 diabetes mellitus with diabetic neuropathy, with long-term current use of insulin ([facility]),Type 2 diabetes mellitus with hemoglobin A1c goal of less than 7.0% ([facility]) Use once a day with basaglar. DX e11.9 100 Each 3 10/18/19 22 Active Rhopressa 0.02 % Ophthalmic Solution Instill 1 Drop into the left eye at bedtime. 0 05/17/20 22 Active Vitamin C 1000 MG Oral Tablet Take 1 Tablet by mouth in the morning. 0 Active Allopurinol 300 MG Oral Tablet (Zyloprim) TAKE 1 TABLET BY MOUTH EVERY DAY 90 Tablet 3 12/11/19 23 Active Carvedilol 6.25 MG Oral Tablet (Coreg) TAKE 1 TABLET BY MOUTH TWICE A DAY WITH BREAKFAST AND DINNER 180 Tablet 3 12/11/19 23 Active OneTouch Verio In Vitro Strip (Glucose Blood) Use to test blood sugars twice a day. Dx. E11.9 300 Strip 1 03/13/20 23 Active OneTouch Delica Lancets 30GIndications:T ype 2 diabetes mellitus with diabetic neuropathy, with long-term current use of insulin ([facility]) Use TWICE a day to test glucose Diagnosis = E11.9 200 Each 3 03/19/20 23 Active Ozempic (2 MG/DOSE) 8 MG/3ML Subcutaneous Solution Pen-injector (Semaglutide (2 MG/DOSE))Indicat ions:Type 2 diabetes mellitus with diabetic neuropathy, with long-term current use of insulin ([facility]) Inject 2 mg under the skin once a week. DX E11.9 Diabetes Mellitus 3 mL 5 03/26/20 23 Active Additional Information Patient taking differently: 1 mgSubcutaneous QWEEK, DX E11.9 Diabetes Mellitus, Reported on 10/01/2023 Allopurinol 100 MG Oral Tablet (Zyloprim)Indica tions:Acute gout of right wrist, unspecified cause Take 1 Tablet by mouth in the morning. Take 1 tablet by mouth in the morning in addition to 300 mg tablet for a total dose of 400 mg.. 90 Tablet 3 05/17/20 23 Active metFORMIN HCl 500 MG Oral Tablet (Glucophage)Nicki cations:Type 2 diabetes mellitus with diabetic neuropathy, with long-term current use of insulin (HCC) Take 1 Tablet by mouth 2 times a day with morning and evening meals. 180 Tablet 3 05/17/20 23 Active Losartan Potassium 50 MG Oral Tablet (Cozaar) Take 0.5 Tablets by mouth in the morning. 0 06/04/20 23 Active Epoetin Gautam-epbx 91287 UNIT/ML Injection Solution (Retacrit) Inject 2 mL intravenously once. Every two weeks 0 Active Torsemide 20 MG Oral Tablet (Demadex) Take 1 Tablet by mouth in the morning. 90 Tablet 3 06/28/20 23 Active Vitamin D3 125 MCG (5000 UT) Oral Tablet Chewable Take by mouth. 0 Active Chlorthalidone 25 MG Oral Tablet (Hygroton) Take 1 Tablet by mouth in the morning. 90 Tablet 3 08/08/20 23 Active Atorvastatin Calcium 20 MG Oral Tablet (Lipitor)Indicat ions:Dyslipidemi a, goal LDL below 70 TAKE 1 TABLET BY MOUTH EVERY DAY IN THE MORNING 90 Tablet 3 08/15/19 24 Active Insulin Glargine Solostar 100 UNIT/ML Subcutaneous Solution Pen-injector (Basaglradha Ashraf)Indicati ons:Type 2 diabetes mellitus with diabetic neuropathy, with long-term current use of insulin (HCC) Inject 20 Units under the skin in the morning. 0 09/04/19 24 Active Acetic Acid 0.25 % Irrigation Solution Apply to legs as directed by the wound clinic. 1000 mL 2 03/01/20 23 024 Discontinued Sodium Bicarbonate 650 MG Oral Tablet Take 2 Tablets by mouth in the morning and 2 Tablets at noon and 2 Tablets in the evening and 2 Tablets before bedtime. 60 Tablet 5 06/04/20 23 024 Discontinued Pantoprazole Sodium 40 MG Oral Tablet Delayed Release (Protonix) Take 1 Tablet by mouth in the morning. 90 Tablet 1 09/04/19 24 024 Discontinued(Re fill) Hospital, Clinic, or Other Facility Administered Medication [...] as of this encounter (statuses as of 10/11/2023) Active Problems Problem Noted Date Diagnosed Date [...] Overview: Non-obstructive. Noted on CT scan at [facility] 05/2019 Mild nonproliferative diabet ic retinopathy [...] as of this encounter (statuses as of 10/11/2023) Resolved Problems Problem Noted Date Diagnosed Date [...] Obesity Taxonomy 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 of inactive term care home current use of ant icoagulant therapy [...] as of this encounter (statuses as of 10/11/2023) Immunizations Name Administration Dates Next Due COVID-19 mRNA, LNP-s, No Pre serve, 2-Dose Series (Celery) 06/20/2021,10/22/2020,09/26/2020 COVID-19, LNP-s, No Preserve , Jamie-sucrose, Ages 12+ (Pfizer) 03/13/2022 Covid-19, Mrna, Lnp-s, Pf, B ivalent, 30 Mcg, IM, 12 yrs and above (Pfizer) 09/20/2022 Pneumococcal Conjugate Vacci ne, 20-valent ([id number]) 03/14/2022 Pneumococcal Polysaccharide PPV23 (Pneumovax) 03/19/2006 Seasonal [...] Sign Reading Time Taken Comments Blood Pressure 142/66 09/19/2023 2:07 PM EST cli simran Pulse 75 09/19/2023 2:07 PM EST Temperature 36.2 C (97.2 F) 09/19/2023 1:09 PM ES T Respiratory Rate 18 09/19/2023 1:09 PM EST Oxygen Saturation 99% 09/19/2023 1:09 PM EST Inhaled Oxygen Concentration - - Weight 145.6 kg (321 lb) 09/19/2023 1:09 PM EST Height - - Body Mass Index 44.77 09/17/2023 10:02 AM EST documented in this encounter Patient Instructions * Patient Instructions* Alejandrina Sims MD - 09/19/2023 1:56 PM EST -no medication changes today -will be in touch about next steps for remote monitoring program and your cuff -avoid medicines like aleve, advil, ibuprofen, aspirin more than 81 mg daily and other NSAIDS whichare not good for kidney patients. Take only tylenol (acetaminophen) up to 2000 mg daily as needed for pain or as directed by your primary care provider. -keep following with wound care -keep using leg pumps twice daily -get Dr Ibrahim to refill pantoprazole -keep May appt with Beckie to f/u on BP -if Dr Velazquez ok with us managing your anemia, we can give shots in [place] documented in this encounter Progress Notes * Alejandrina Sims MD - 09/19/2023 12:57 PM EST NEPHROLOGY CLINIC NOTE Nephrology [address] [place] [address] 09/19/2023, 12:57 PM Patient Name: Ronnie uW BACKGROUND: 68 year old male presents for hospital d/c appt after [facility] admission 08/13-08/16/23 for BLE cellulitis w/ diffuse calcinosis on CT and XRay. There was a question of calciphylaxis at [facility] but no concern for this at [facility]. Also had stomach flu, with dark stools and 1 episode coffee ground emesis w/ hgb running at 8 through the stay. Started on PPI. For EGD next week. Also chlorthalidone held at hospital d/c. Followed here for now nonalbuminuric ckd 3 attributed to diabetic nephropathy, chronic uncontrolledhypertension, obesity, periodic NSAID use. PMH DM since at least 2008 w/ early retinopathy, class 3 obesity, SPENCER on CPAP in past but off it asof summer 2022 admission, chronic lymphedema w/ past DVT and ongoing venous stasis ulcerations, gout follows w/ rheum, RLS. Has Fe def anemia > February 2022 w/ one adenomatous polyp, repeat in 2026. Pt refuses po Fe d/t constipation. Follows w/ Dr Velazquez [facility] heme for DAGO and anemia care. Also w/ prn meloxicam on med list when he est care w/ me 10/2018. Follows w/ [facility] for DM. hx cough w/ACEi; ok on ARB. Legs wrapped b/c of sores, goes to wound clinic [facility]. When does not have have wraps, uses support hose; also has leg pumps and boots PT for vertigo in past Admitted [facility] May 2019 for hyperkalemia and acute kidney injury with presenting creatinine 2.1 and potassium 6. His RIKI-inhibitor was held at discharge; multiple other meds stopped including spironolactone. Admitted [facility] 01/29-02/09/23 after falling down stairs > had SDH, C spine and T spine frxs, rib and scapular fracture. Also had low sodium and high potassium. Then [facility]. States INR was low while at [facility] (had been on lovenox whiel there) ; resumed coumadin at hospital d/c. Has seen urology for prn f/u > MRI w/ BL cysts which urology states are benign; has never passeda stone. Tries to drink at least 64 oz daily water. Drinks at least : 32 oz water daily. But aiming for 64oz Home blood pressure checks: No- no cuff at home - reports frequent bps at appts NSAID use: No - tylenol only Herbals/supplements: Vit C, MV, fish oil, History of stones: No- brother with hx Family history of CKD or ESRD: NO TODAY 09/19/2023: wounds are healing ; HHN following and states they improve from one visit to another; evaluating weekly. Using leg pumps bid now. Ozempic on hold for procedure w EGD next week. Wondernig if he should continue w/ PPI. Has suspended remote monitoring for now b/c machine reads a lot higher than clinic ones and consistently. [facility] d/c summary reviewed REVIEW OF SYSTEMS: No F/C, slight intended wt loss, energy level and appetite acceptable No acute visual changes or JORDAN No sinus, dental, throat pain No neck lumps/bumps or stiffness No palpitations, angina, orthopnea; ongoing LE edema No cough, wheeze, or dyspnea No N/V/D/C/abd pain No dysuria, hematuria, nocturia >2X; no new/worrisome voiding sx No rash or generalized itch/ wounds improving No focal joint/muscle aches though legs burn from the wound pads No inappropriate bleeding or bruising No tremor, seizures, focal or global weakness or paresthesias No presyncopal or orthostatic symptoms; no falls Current Outpatient Medications Medication Sig Dispense Refill MULTIPLE VITAMIN PO TABS 1 TABLET DAILY 0 OMEGA-3 FISH OIL 1000 MG PO CAPS Take one capsule by mouth daily 0 dorzolamide-timolol (COSOPT OCUMETER PLUS) 2.23-0.68% ophthalmic solution INSTILL 1 DROP INTO BOTH EYES BY OPHTHALMIC ROUTE ONCE IN THE MORING AND THE SECOND DROP AROUND 5 PM 4 Aspirin 81 MG Tablet Take 1 Tablet by mouth in the morning. Rhopressa 0.02 % Ophthalmic Solution Instill 1 Drop into the left eye at bedtime. Vitamin C 1000 MG Oral Tablet Take 1 Tablet by mouth in the morning. Allopurinol 300 MG Oral Tablet (Zyloprim) TAKE 1 TABLET BY MOUTH EVERY DAY 90 Tablet 3 Carvedilol 6.25 MG Oral Tablet (Coreg) TAKE 1 TABLET BY MOUTH TWICE A DAY WITH BREAKFAST AND [id number] Tablet 3 Acetic Acid 0.25 % Irrigation Solution Apply to legs as directed by the wound clinic. 1000 mL 2 Allopurinol 100 MG Oral Tablet (Zyloprim) Take [...] by mouth in the morning. Epoetin Gautam-epbx 90248 UNIT/ML Injection Solution (Retacrit) Inject 2 mL [...] EVERY DAY IN THE MORNING 90Tablet 3 Pantoprazole Sodium 40 MG Oral Tablet Delayed Release (Protonix) Take 1 Tablet by mouth in the morning. 90 Tablet 1 Insulin Glargine Solostar 100 UNIT/ML Subcutaneous Solution Pen-injector (Axonia Medicalaglar KwikPen) Inject 20 Units under the skin in the morning. Blood Glucose Monitoring Suppl ([employer] ULTRA SYSTEM) W/DEVICE KIT Use as directed 4 times a day. Use up to four times a day as directed. Diagnosis = E11.9 1 Kit 0 BD Pen Needle Wilda U/F 32G X 4 MM (Insulin Pen Needle) Use once a day with basaglar. DX e11.9 100 Each 3 OneTouch Verio In Vitro Strip (Glucose Blood) Use to test blood sugars twice a day. Dx. E11.9 300 Strip 1 OneTouch Delica Lancets 30G Use TWICE a day to test glucose Diagnosis = E11.9 200 Each 3 Ozempic (2 MG/DOSE) 8 MG/3ML Subcutaneous Solution Pen-injector (Semaglutide (2 MG/DOSE)) Inject 2 mg under the skin once a week. DX E11.9 Diabetes Mellitus (Patient not taking: Reported on 09/19/2023)3 mL 5 Sodium Bicarbonate 650 MG Oral Tablet Take 2 Tablets by mouth in the morning and 2 Tablets at noon and 2 Tablets in the evening and 2 Tablets before bedtime. (Patient not taking: Reported on 09/04/2023) 60 Tablet 5 Current Facility-Administered Medications Medication Dose Route Frequency Provider Last Rate Last Admin bevaCIZumab (Avastin) inj 1.25 mg 1.25 mg Intravitreal PRN Mika Daiz, DO 1.25 mg at 06/13/23 1143 ROPivacaine (Naropin) inj 1.5 mg 1.5 mg Perineural PRN Mika Diaz, DO 1.5 mg at 144 Review of patient's allergies indicates: No Known Allergies PHYSICAL EXAMINATION: BP Readings from Last 6 Encounters: 09/19/23 142/66 09/17/23 148/75 09/04/23 142/70 07/30/23 148/74 07/16/23 154/81 07/10/23 172/78 Wt Readings from Last 6 Encounters: 09/19/23 (!) 145.6 kg (321 lb) 09/04/23 (!) 146.8 kg (323 lb 9.6 oz) 07/10/23 (!) 150.3 kg (331 lb 4.8 oz) 06/06/23 (!) 147 kg (324 lb) 05/15/23 (!) 147 kg (324 lb) 03/26/23 (!) 148.9 kg (328 lb 4.8 oz) Pulse Readings from Last 6 Encounters: 09/19/23 75 09/17/23 78 09/04/23 92 07/30/23 80 07/16/23 89 07/10/23 93 NAD, oriented x 3, obese, ambulatory w/o asst Normocephalic, atraumatic, eomi nonicteric sclerae MMM Supple neck RRR w/o m/g/r; 1++ edemaBLE which are wrapped (photos reviewed) CTAB w/ reasonable air mvt NT abd, +BS, soft No cyanosis or clubbing No rash No tremor, focal or global weakness; fluent speech, mostly good historian LABS: Recent Labs Units 09/02/23 1036 08/23/23 0000 07/29/23 0915 07/15/23 0922 06/17/23 0912 SODIUM - [facility] mmol/L 141 -- 137 140 138 POTASSIUM - [facility] mmol/L 5.1 -- 4.3 4.9 5.2* POTASSIUM-OUTSIDE LAB MMOL/L -- 4.4 -- -- -- CHLORIDE - [facility] mmol/L 107 -- 104 105 103 CO2 - [facility] mmol/L 22 -- 21* 21* 22 EGFR-OUTSIDE LAB ML/MIN -- 42* -- -- -- BUN - [facility] mg/dL 26* -- 79* 46* 31* CREATININE - [facility] mg/dL 1.5* -- 2.3* 1.6* 1.6* CREATININE-OUTSIDE LAB MG/DL -- 1.76* -- -- -- ESTIMATED GLOMERULAR FILTRATION RATE - [facility] mL/min 51* -- 30* 47* 46* Recent Labs Units 09/16/23 1051 09/02/23 1036 08/23/23 0000 07/29/23 0915 07/15/23 0922 06/04/23 1103 06/03/23 0849 04/08/23 0835 03/19/23 1009 02/10/23 0525 09/18/22 1038 HGB - [facility] g/dL 8.6* 8.2* -- 9.5* 9.2* < > -- < > 9.3* < > 9.7* HEMOGLOBIN-OUTSIDE LAB G/DL -- -- 7.9* -- -- -- -- -- -- -- -- FERRITIN - [facility] ng/mL -- -- -- -- 257 -- 190 -- 269 -- 125 TRANSFERRIN SATURATION PERCENT - [facility] % -- 15 -- -- 14* -- 12* -- 17 -- 18 < > = values in this interval not displayed. Recent Labs Units 09/02/23 1036 07/29/23 0915 07/15/23 0922 06/17/23 0912 02/10/23 0525 09/18/22 1038 03/14/22 1048 01/22/22 1132 CALCIUM - [facility] mg/dL 8.8 9.0 9.2 8.8 < > 9.2 < > 9.0 PHOSPHORUS - [facility] mg/dL 3.8 -- -- -- -- 3.7 -- -- 25-HYDROXY VITAMIN D - [facility] ng/mL 52 -- -- -- -- -- -- 35 PTH - [facility] pg/mL 102* -- -- -- -- -- -- 89* < > = values in this interval not displayed. Recent Labs Units 07/15/23 0922 03/19/23 1009 09/18/22 1038 05/28/22 1503 HEMOGLOBIN A1C - [facility] % 6.2* 6.5* 6.7* 7.0* Recent Labs Units 02/19/23 1035 03/14/22 1048 ALBUMIN / CREATININE RATIO, URINE - [facility] mg/g Creat 13 19 Recent Labs Units 02/19/23 1035 CLARITY, URINE - [facility] Clear GLUCOSE, URINE - [facility] mg/dL Negative BILIRUBIN, URINE - [facility] Negative KETONE, URINE - [facility] mg/dL Negative SPECIFIC GRAVITY, URINE - [facility] 1.019 BLOOD, URINE - [facility] Negative PH, URINE - [facility] Units 6.0 PROTEIN, URINE - [facility] mg/dL Negative UROBILINOGEN, URINE - [facility] mg/dL Normal NITRITE, URINE - [facility] Negative ESTERASE, URINE - [facility] Trace* BACTERIA, URINE - [facility] /HPF 0-25 WBC, URINE - [facility] /HPF 3-5* RBC, URINE - [facility] /HPF 0-2 ASSESSMENT AND PLAN: HTN, goal below 130/80 (Primary) Stage 3a chronic kidney disease (HCC) Anemia of chronic disease Chronic right-sided heart failure (HCC) Hyperuricemia Follow Up: Return in about 3 months (around 12/18/2023) for clinic visit w/ PA. | For: clinic visit w/ PA | Check-out note: Keep December 2023 appt w/ PA Blood pressure is above here in clinic; will attempt to get him enrolled in remote monitoring if possible; cuff size may be limiting factor here but will investigate -continue Coreg, chlorthalidone, torsemide, losartan current doses Stable CKD 3 with acceptable chemistries Continue losartan dose appropriate -not in need of SGL T2 inhibitor at this time at least not from Nephro standpoint On high-dose allopurinol for management of uric acid elevations; continue same Could consider anemia clinic with administration of DAGO injections in [place] if Dr. Velazquez thinks this is reasonable/appropriate; would certainly be easier for patient I spent a total of 40-54 minutes (exact time 40 mins) on the date of service in preparation, delivery, and documentation of the care provided to Ronnie Wu excluding any time spent in the performance of separately billed services. Patient Instructions -no medication changes today -will be in touch about next steps for remote monitoring program and your cuff -avoid medicines like aleve, advil, ibuprofen, aspirin more than 81 mg daily and other NSAIDS whichare not good for kidney patients. Take only tylenol (acetaminophen) up to 2000 mg daily as needed for pain or as directed by your primary care provider. -keep following with wound care -keep using leg pumps twice daily -get Dr Ibrahim to refill pantoprazole -keep May appt with Beckie to f/u on BP -if Dr Velazquez ok with us managing your anemia, we can give shots in [place] Alejandrina Sims MD Nephrology [address] [place] [address] CC: Ref: MARLON IBRAHIM[[id number]] [address] [place] [address] [place] [address] (office) [phone] (fax) PCP: MARLON IBRAHIM [address] [place] [address] [place] [phone] This chart was completed in part utilizing vogogo Speech Voice Recognition Software. Randomword insertions, pronoun errors, and incomplete sentences are an occasional consequence of this system due to software limitations, and ambient noise. Any questions or concerns about the content, text, or information contained within the body of this dictation should be directly addressed to the provider for clarification. documented in this encounter Nursing Notes * Carmela Layne RN - 09/19/2023 1:11 PM EST Follow up visit today. Last hospitalized in August at [facility].. present in room for visit. Theyreport that his left leg is doing better. He reports dressing with Silver seems to burn with application. Is followed weekly by home health wound nurse. documented in this encounter Plan of Treatment Upcoming Encounters Date Type Department Care Team (Latest Contact Info) Description 4 9:30 AM EST Laboratory Laboratory [address] [place] [phone] [place] [address] 4 1:45 PM EST Office Visit Hematology/Onco logy [facility] [address] [facility] [place] [phone] Fly Velazquez MD 200 [facility] [place] [address] 4 2:15 PM EST Immunization/In jection Hematology/Onco logy [facility] [phone] Nurse, Med 200 [facility] [place] [address] 4 10:00 AM EDT Office Visit [facility] [place] [address] [place] [phone] Dorothy Toscano CRNP [address] [place] [address] 4 2:00 PM EDT Office Visit Ophthalmology, [facility] [address] [place] [address] Mika Diaz, DO [address] [place] [address] 4 11:40 AM EDT Office Visit Family Medicine [address] [place] [phone] Marry Hansen [address] [place] [address] 4 2:00 PM EDT Office Visit Nephrology, [facility] [address] [place] [address] Zemaitis, Beckie Tucker PA-C [address] [place] [address] 4 2:36 PM EDT Hospital Encounter OR GL, Operating Room, [facility] - 4th Floor [address] [place] [address] Jayda Jeong, DO [address] [place] [address] 4 2:36 PM EDT - 4 3:09 PM EDT Surgery OR [facility], Operating Room, [facility] - 4th Floor [address] [place] [address] Jayda Jeong, DO [address] [place] [address] ESOPHAGOGASTRODUODENOSCOPY (EGD), FLEXIBLE, TRANSORAL, DIAGNOSTIC Scheduled Procedures Name Priority Associated Diagnoses Date/Ti [...] 023, 03/14/2022, 05/19/2021, Additional history exists GFR 03/02/2024 09/02/2023, 08/12, 07/29/2023, Additional history exists CKD PHOS USE SMARTSET 98921 09/02/202408/13, 09/18/2022, 08/29/2021, Additional history exists CKD HGB USE SMARTSET 94193 09/30/202409/30, 09/30/2023, 09/16/2023, Additional history exists COLONOSCOPY-EVERY 5 YRS AGES [...] this encounter Medical Devices Implanted Type Area Installer Metal Flooring Device Identifier Shelf Expiration Date Model / Serial / Lot Envista Hydrophobic Acrylic Intraocular Lens Implanted:Qty: 1 on 12/25/2016 by Raul Neely MD at OR [facility] Right: Eye [employer] 11/09/2018 [id number] / [id number] / [id number] Envista Mx60 +10.0 D Implanted:Qty: 1 on 01/29/2017 by Raul Neely MD at OR [facility] Left: Eye 11/09/2018 [id number] / [id number] / [id number] documented as of this encounter Visit Diagnoses Diagnosis HTN, goal below 130/80- Primary Unspecified essential hypertension Stage 3a chronic kidney disease (HCC) Anemia of chronic disease Anemia of other chronic disease Chronic right-sided heart failure (HCC) Congestive heart failure, unspecified Hyperuricemia Other abnormal blood chemistry Gastric ulcer Gastric ulcer, unspecified as acute [...] and were consensually agreed upon. Care Teams Slice Plug Cutter Operator Helper Relationship Specialty Start Date End Date Marlon Ibrahim DO [address] [place] [address] [place] [address] PCP - General Internal Medicine 09/11/18 documented as of this encounter"
--- OUTSIDE RECORDS SUMMARY | 2023-11-13 21:27 | External Medical Summary ---
Author Name Unknown Address Unknown Organization [id number]:LABORATORY [facility] - [address] [place] [address] Laboratory Report Ordering Provider Test Date Status JANE WOODRUFF 10/14/2023 10:12:56 Final Observation Date Value Abnormality Reference (Units ) Status Iron 10/14/2023 10:12:56 66 45-176 (ug /dL) Final Iron-binding capacity 10/14/2023 10:12:56 300 250-425 (ug/dL) Final Transferrin Sat % 10/14/2023 10:12:56 22 15 -55 (%) Final Performing Location LABORATORY [facility] - [address] [place] [address]
--- OUTSIDE RECORDS SUMMARY | 2023-11-13 21:27 | External Medical Summary | Summary of Care ---
Author Name Unknown Organization [facility] Address [address] [place] [address] Phone [phone] Care Team Providers Care Electrical Power Engineer Name Role Phone RyanLacyNancyraheem Muro Primary Care Provider [phone] Reason for Visit * Reason Onset Date Comments Remote Patient Monitoring Alert 10/02/2023 Encounter Details Date Type Department Care Team (Late st Contact Info) Description 10/02/2023 Home Monitoring Care Coordination [address], [place] [id number] Gaby Willis LPN HTN, goal below 140/90* Allergies No known active allergiesdocumented as of this encounter (statuses as of 10/10/2023) Medications Medication Sig Dispensed Refills Start Date End Date Status MULTIPLE VITAMIN PO TABS 1 TABLET DAILY 0 07/03/2011 Active OMEGA-3 FISH OIL 1000 MG PO CAPS Take one capsule by mouth daily 0 07/03/2011 Active Blood Glucose Monitoring Suppl (ImageVision ULTRA SYSTEM) W/DEVICE KITIndications:DM type 2, goal [...] neuropathy, with long-term current use of insulin ([facility]),Type 2 diabetes mellitus with hemoglobin A1c goal of less than 7.0% ([facility]) Use once a day with [...] neuropathy, with long-term current use of insulin ([facility]) Use TWICE a day to test glucose Diagnosis = E11.9 200 Each 3 03/19/2023 Active Ozempic (2 MG/DOSE) 8 MG/3ML Subcutaneous Solution Pen-injector (Semaglutide (2 MG/DOSE))Indicatio ns:Type 2 diabetes mellitus with diabetic neuropathy, with long-term current use of insulin ([facility]) Inject 2 mg under the [...] the morning. 0 06/04/2023 Active Epoetin Gautam-epbx 01019 UNIT/ML Injection Solution (Retacrit) Inject 2 mL [...] neuropathy, with long-term current use of insulin ([facility]) Inject 20 Units under the [...] as of this encounter (statuses as of 10/10/2023) Active Problems Problem Noted Date Diagnosed Date [...] Overview: Non-obstructive. 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 current use of ant icoagulant therapy 03/16/2005 [...] as of this encounter (statuses as of 10/10/2023) Immunizations Name Administration Dates Next Due COVID-19 mRNA, LNP-s, No Pre serve, 2-Dose Series ([employer]) 06/20/2021,10/22/2020,09/26/2020 COVID-19, LNP-s, No Preserve , Jamie-sucrose, Ages 12+ (Pfizer) 03/13/2022 Covid-19, Mrna, Lnp-s, Pf, B ivalent, 30 Mcg, IM, 12 yrs and above ([employer]) 09/20/2022 Pneumococcal Conjugate Vacci ne, 20-valent ([id number]) 03/14/2022 Pneumococcal Polysaccharide PPV23 (Pneumovax) 03/19/2006 Seasonal [...] as of this encounter Progress Notes * Alejandrina Sims MD - 10/10/2023 5:36 PM EST agree * Jena Haas [facility] - 10/03/2023 3:32 PM EST Systolic Diastolic Pulse Systolic Diastolic 154 77 Average 145 75 143 77 146 76 High 77 77 149 76 Low 70 70 133 71 142 70 Range 7 7 Count 6 6 Hypertension Medications: Torsemide 20mg daily Losartan 50mg 1/2 tablet daily Carvedilol 6.25mg BID Chlorthalidone 25mg daily BP elevated, of note patient reports current head cold. Recommend continuing to monitor at this time. eJna Haas RPh, PharmD Clinical Pharmacist - Registered Veterinary Technician Medication Therapy [facility] 10/03/2023, 3:35 PM [phone] * Gaby Willis LPN - 10/02/2023 1:44 PM EST Ronnie Wu [phone] Ronnie Teran Jazmin is currently participating in the [employer] Hypertension Management Program and had areading on 10/02/2023 of 143/77. Pt has alerted for an Average BP over 7 days > 140/90 . Parameters are currently set as follows: Average BP over 7 days > 140/90 Singular Systolic BP Reading < 90 or > 180 Singular Diastolic BP Reading <50 or > 120 Patient is not reporting new symptoms, however currently has a "head cold." Per patient, he has been using Mucinex, Nightquil, and Carisa [place] Plus for the past three days. The patient does have allhis blood pressure medications and is taking them as prescribed. Please review the recent history of home RPM readings in Epic Synopsis Flowsheets and work with your clinical staff if any additional actions or interventions are required. If you would like to customize the alert parameters and/or instructions for this patient, please let me know and we can have them changed. Thank you! Gaby Willis LPN documented in this encounter Plan of Treatment Upcoming Encounters Date Type Department Care Team (Latest Contact Info) Description 4 9:30 AM EST Laboratory Laboratory [address] [place] [phone] [place], [address] [place] [address] 4 1:45 PM EST Office Visit Hematology/Onco logy [facility] [address] [place] [phone] Fly Velazquez MD 200 [facility] [place] [address] 4 2:15 PM EST Immunization/In jection Hematology/Onco logy Treatment, [place] 200 [facility] [place] [address] Nurse, Med 200 [facility] [place] [address] 4 10:00 AM EDT Office Visit Sleep Disorders Ctr [facility] [address] [place] [phone] Dorothy Toscano CRNP [address] [place] [address] 4 2:00 PM EDT Office Visit Ophthalmology, [facility] [address] [place] [address] Mika Diaz, DO [address] [place] [address] 4 11:40 AM EDT Office Visit Family Medicine [address] [place] [phone] Marry Hansen CRNP [address] [place] [address] [place] [address] 4 2:00 PM EDT Office Visit Nephrology, [facility] 200 [facility] [place] [address] Beckie Dunbar PA-C [address] [place] [address] 4 2:36 PM EDT Hospital Encounter OR [facility], Operating Room, [facility] - 4th Floor [address] [place] [address] Jayda Jeong, DO [address] [place] [address] 4 2:36 PM EDT - 4 3:09 PM EDT Surgery OR [facility], Operating Room, [facility] - 4th Floor [address] [place] [address] Jayda Jeong, DO [address] [place] [address] ESOPHAGOGASTRODUODENOSCOPY (EGD), FLEXIBLE, TRANSORAL, DIAGNOSTIC Scheduled Procedures [...] Additional history exists CKD PHOS USE SMARTSET 21905 09/02/202408/13, 09/18/2022, 08/29/2021, Additional history exists CKD HGB USE SMARTSET 14198 09/30/202409/30, 09/30/2023, 09/16/2023, Additional history exists COLONOSCOPY-EVERY [...] this encounter Medical Devices Implanted Type Area Waiter/Waitress Counter Device Identifier Shelf Expiration Date Model / Serial / Lot Envista Hydrophobic Acrylic Intraocular Lens Implanted:Qty: 1 on 12/25/2016 by Raul Neely MD at OR [facility] Right: Eye [employer] 11/09/2018 [id number] / [id number] / [id number] Envista Mx60 +10.0 D Implanted:Qty: 1 on 01/29/2017 by Raul Neely MD at OR [facility] Left: Eye 11/09/2018 [id number] / [id number] documented as of this encounter Visit Diagnoses [...] and were consensually agreed upon. Care Teams Electrical Power Engineer Relationship Specialty Start Date End Date Nancy Ryan DO [address] [place] [address] [place] [address] PCP - General Internal Medicine 09/11/18 documented as of this encounter
--- OUTSIDE RECORDS SUMMARY | 2023-11-13 21:27 | External Medical Summary | Summary of Care ---
Author Name Unknown Organization [facility] Address [address] [place] [address] Phone [phone] Care Team Providers Care Paste Plant Supervisor Name Role Phone Nancy Ryan DO Primary Care Provider [phone] Reason for Visit * Reason Comments Outpatient Testing Encounter Details Date Type Department Care Team (Late st Contact Info) Description 10/14/2023 9:30 AM EST Laboratory Laboratory [address] [place] [phone] [address] [place] [address] Anemia due to stage 3a chronic kidney disease (HCC) Allergies No known active allergiesdocumented as of this encounter (statuses as of 10/14/2023) Medications Medication Sig Dispensed Refills Start Date End Date Status MULTIPLE VITAMIN PO TABS 1 TABLET DAILY 0 07/03/2011 Active OMEGA-3 FISH OIL 1000 MG PO CAPS Take one capsule by mouth daily 0 07/03/2011 Active Blood Glucose Monitoring Suppl ([employer] ULTRA SYSTEM) W/DEVICE KITIndications:DM type 2, goal [...] the morning. 0 06/04/2023 Active Epoetin Gautam-epbx 31225 UNIT/ML Injection Solution (Retacrit) Inject 2 mL [...] as of this encounter (statuses as of 10/14/2023) Active Problems Problem Noted Date Diagnosed Date [...] Overview: Non-obstructive. Noted on CT scan at [facility] 05/2019 Mild nonproliferative diabet ic retinopathy of [...] as of this encounter (statuses as of 10/14/2023) Resolved Problems Problem Noted Date Diagnosed Date [...] Obesity Taxonomy 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 of inactive term [facility] current use of ant icoagulant therapy 03/16/2005 [...] as of this encounter (statuses as of 10/14/2023) Immunizations Name Administration Dates Next Due COVID-19 mRNA, LNP-s, No Pre serve, 2-Dose Series (Sequence) 06/20/2021,10/22/2020,09/26/2020 COVID-19, LNP-s, No Preserve , Jamie-sucrose, Ages 12+ (Sequence) 03/13/2022 Covid-19, Mrna, Lnp-s, Pf, B ivalent, 30 Mcg, IM, 12 yrs and above (Pfizer) 09/20/2022 Pneumococcal Conjugate Vacci ne, 20-valent ([id number]) 03/14/2022 Pneumococcal Polysaccharide PPV23 (Pneumovax) 03/19/2006 Seasonal [...] Care Team (Latest Contact Info) Description 4 1:45 PM EST Office Visit Hematology/Onco logy [facility] [place] [address] [place] [phone] Fly Velazquez MD 200 [facility] [place] [address] 4 2:15 PM EST Immunization/I njection Hematology/Onco logy Treatment, [place] 200 [facility] [place] [phone] Nurse, Med 200 [facility] [place] [address] 4 10:00 AM EDT Office Visit Sleep Disorders Ctr [facility] [place] [address] [place] [phone] Dorothy Toscano CRNP [address] [place] [address] 4 2:00 PM EDT Office Visit Ophthalmology, [facility] [address] [place] [address] Mika Diaz DO [address] [place] [address] 4 11:40 AM EDT Office Visit Family Medicine [address] [phone] Marry Hansen CRNP [address] [place] [address] [place] [address] 4 2:00 PM EDT Office Visit Nephrology, [facility] [address] [place] [address] ZeBeckie cruz PA-C 200 [facility] [place] [address] 4 2:36 PM EDT Hospital Encounter OR [facility], Operating Room, [facility] - 4th Floor [address] [place] [address] [place] [address] Jayda Jeong, DO [address] [place] [address] 4 2:36 PM EDT - 4 3:09 PM EDT Surgery OR [facility], Operating Room, [facility] - 4th Floor [address] [place] [address] Jayda Jeong, DO [address] [place] [address] ESOPHAGOGASTRODUODENOSCOPY (EGD), FLEXIBLE, TRANSORAL, DIAGNOSTIC Pending Results Name Type Priority Associated Diagnoses Date /Time CBC WITH WBC DIFFERENTIAL Lab STAT Anemia due to stage 3a chronic kidney disease (HCC) 10/14/2023 10:12 AM EST COMPREHENSIVE METABOLIC PANEL Lab STAT Anemia due to stage 3a chronic kidney disease (HCC) 10/14/2023 10:12 AM EST FERRITIN Lab STAT Anemia due to stage 3a chronic kidney disease (HCC) 10/14/2023 10:12 AM EST FOLIC ACID Lab STAT Anemia due to stage 3a chronic kidney disease (HCC) 10/14/2023 10:12 AM EST VITAMIN B12 Lab STAT Anemia due to stage 3a chronic kidney disease (HCC) 10/14/2023 10:12 AM EST IRON SCREEN, INCLUDING TIBC Lab STAT Anemia due to stage 3a chronic kidney disease (HCC) 10/14/2023 10:12 AM EST CBC Lab STAT Anemia due to stage 3a chronic kidney disease (HCC) 10/14/2023 10:12 AM EST DIFFERENTIAL, AUTOMATED Lab STAT Anemia due to stage 3a chronic kidney disease (HCC) 10/14/2023 10:12 AM EST Scheduled Procedures Name Priority Associated Diagnoses Date/Ti [...] Additional history exists CKD PHOS USE SMARTSET 23753 09/02/202408/13, 09/18/2022, 08/29/2021, Additional history exists CKD HGB USE SMARTSET 64202 09/30/202409/30, 09/30/2023, 09/16/2023, Additional history exists COLONOSCOPY-EVERY [...] this encounter Medical Devices Implanted Type Area Break Up Worker Device Identifier Shelf Expiration Date Model / Serial / Lot Envista Hydrophobic Acrylic Intraocular Lens Implanted:Qty: 1 on 12/25/2016 by Raul Neely MD at OR [facility] Right: Eye [employer] 11/09/2018 [id number] / [id number] / [id number] Envista Mx60 +10.0 D Implanted:Qty: 1 on 01/29/2017 by Raul Neely MD at OR [facility] Left: Eye 11/09/2018 [id number] / [id number] / [id number] documented as of this encounter Visit Diagnoses [...] and were consensually agreed upon. Care Teams Paste Plant Supervisor Relationship Specialty Start Date End Date Nancy Ryan DO [address] [place] [address] [place] [phone] PCP - General Internal Medicine 09/11/18 documented as of this encounter
--- OUTSIDE RECORDS SUMMARY | 2023-11-13 21:27 | External Medical Summary | Summary of Care ---
Author Name Unknown Organization [facility] Address [address] [place] [address] Phone [phone] Care Team Providers Care Diesel Automotive Technician Name Role Phone Nancy Ryan DO Primary Care Provider Reason for Visit * Reason Onset Date Comments Home Health 10/08/2023 FYI 10/08/2023 Encounter Details Date Type Department Care Team (Late st Contact Info) Description 10/08/2023 Telephone Family Medicine [address] [phone] Nancy Ryan DO [address] [place] [address] [place] [address] Home Health; Allergies No known active allergiesdocumented as of this encounter (statuses as of 10/08/2023) Medications Medication Sig Dispensed Refills Start Date End Date Status MULTIPLE VITAMIN PO TABS 1 TABLET DAILY 0 07/03/2011 Active OMEGA-3 FISH OIL 1000 MG PO CAPS Take one capsule by mouth daily 0 07/03/2011 Active Blood Glucose Monitoring Suppl ([employer] ULTRA SYSTEM) W/DEVICE KITIndications:DM type 2, goal [...] long-term current use of insulin ([facility]),Type 2 diabetes mellitus with hemoglobin A1c goal [...] long-term current use of insulin ([facility]) Use TWICE a day to test glucose Diagnosis = E11.9 200 Each 3 03/19/2023 Active Ozempic (2 MG/DOSE) 8 MG/3ML Subcutaneous Solution Pen-injector (Semaglutide (2 MG/DOSE))Indicatio ns:Type 2 diabetes mellitus with diabetic neuropathy, with long-term current use of insulin ([facility]) Inject 2 mg under the skin once [...] the morning. 0 06/04/2023 Active Epoetin Gautam-epbx 62141 UNIT/ML Injection Solution (Retacrit) Inject 2 mL [...] long-term current use of insulin ([facility]) Inject 20 Units under the skin in [...] as of this encounter (statuses as of 10/08/2023) Active Problems Problem Noted Date Diagnosed Date [...] Overview: Non-obstructive. Noted on CT scan at [facility] 05/2019 Mild nonproliferative diabet ic retinopathy of [...] as of this encounter (statuses as of 10/08/2023) Resolved Problems Problem Noted Date Diagnosed Date [...] Obesity Taxonomy 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 of inactive term intermediate current use of ant icoagulant therapy 03/16/2005 [...] as of this encounter (statuses as of 10/08/2023) Immunizations Name Administration Dates Next Due COVID-19 mRNA, LNP-s, No Pre serve, 2-Dose Series ([employer]) 06/20/2021,10/22/2020,09/26/2020 COVID-19, LNP-s, No Preserve , Jamie-sucrose, Ages 12+ (Pfizer) 03/13/2022 Covid-19, Mrna, Lnp-s, Pf, B ivalent, 30 Mcg, IM, 12 yrs and above (Pfizer) 09/20/2022 Pneumococcal Conjugate Vacci ne, 20-valent ([id number]) 03/14/2022 Pneumococcal Polysaccharide PPV23 (Pneumovax) 03/19/2006 Seasonal [...] encounter Miscellaneous Notes * Telephone Encounter - Nancy Ryan DO - 10/08/2023 4:30 PM EST Noted. * Telephone Encounter - Najma Lugo LPN - 10/08/2023 2:18 PM EST HH Discharge Lisa VARMA, Calling from: [facility] Patient is/has been discharged from Home Health on 10/08/23 All goals have been met and patient is safe at home. FYI to PCP Patient is now refusing to go to the wound clinic. He has changed his mind. Family will continue todo wound care at home. FYI documented in this encounter Plan of Treatment Upcoming Encounters Date Type Department Care Team (Latest Contact Info) Description 4 9:30 AM EST Laboratory Laboratory [address] [place] [phone] [address] [place] [address] 4 1:45 PM EST Office Visit Hematology/Onco logy [facility] [address] [place] [address] Fly Velazquez MD 200 [facility] [place] [address] 4 2:15 PM EST Immunization/In jection Hematology/Onco logy Treatment, Center [address] [place] [phone] Nurse, Med 4 200 [facility] [place] [address] 4 10:00 AM EDT Office Visit [facility] Disorders Ctr [facility] [address] [place] [phone] Dorothy Toscano CRNP [address] [place] [phone] 4 2:00 PM EDT Office Visit Ophthalmology, [facility] [address] [place] [address] Mika Diaz, DO [address] [place] [address] 4 11:40 AM EDT Office Visit Family Medicine [address] [place] [phone] Marry Hansen [address] [place] [address] 4 2:00 PM EDT Office Visit Nephrology, [facility] [address] [place] [address] Zemaitis, Beckie Tucker PA-C [address] [place] [address] 4 2:36 PM EDT Hospital Encounter OR [facility], Operating Room, [facility] - 4th Floor [address] [place] [address] Jayda Jeong, [address] [place] [address] 4 2:36 PM EDT - 4 3:09 PM EDT Surgery OR [facility], Operating Room, [facility] - 4th Floor [address] [place] [address] Jayda Jeong, DO [address] [place] [address] ESOPHAGOGASTRODUODENOSCOPY (EGD), FLEXIBLE, TRANSORAL, DIAGNOSTIC Scheduled Procedures Name Priority Associated Diagnoses Date/Ti ar ESOPHAGOGASTRODUODENOSCOPY ( EGD), FLEXIBLE, TRANSORAL, DIAGNOSTIC Gastric [...] Additional history exists CKD PHOS USE SMARTSET 63736 09/02/202408/13, 09/18/2022, 08/29/2021, Additional history exists CKD HGB USE SMARTSET 14746 09/30/202409/30, 09/30/2023, 09/16/2023, Additional history exists COLONOSCOPY-EVERY [...] this encounter Medical Devices Implanted Type Area Fishing Instructor Device Identifier Shelf Expiration Date Model / Serial / Lot Envista Hydrophobic Acrylic Intraocular Lens Implanted:Qty: 1 on 12/25/2016 by Raul Neely MD at OR [facility] Right: Eye [employer] 11/09/2018 [id number] / [id number] Envista Mx60 +10.0 D Implanted:Qty: 1 on 01/29/2017 by Raul Neely MD at OR [facility] Left: Eye 11/09/2018 [id number] / [id number] documented as of this encounter Advance Directives [...] and were consensually agreed upon. Care Teams Diesel Automotive Technician Relationship Specialty Start Date End Date Nancy Ryan DO [address] [place] [address] [place] [phone] PCP - General Internal Medicine 09/11/18 documented as of this encounter
--- OUTSIDE RECORDS SUMMARY | 2023-11-13 21:27 | External Medical Summary ---
Author Name Unknown Address Unknown Organization [id number]:[facility] [place] [facility] [address] [facility] [address] [facility] [address] Laboratory Report Ordering Provider Test Date Status JANE WOODRUFF 10/14/2023 10:12:56 Final Observation Date Value Abnormality Reference (Units ) Status WBC, Total 10/14/2023 10:12:56 5.74 4.00-10.80 (K/uL) Final RBC 10/14/2023 10:12:56 2.75 4.50-5.25 (M/uL) Final Hemoglobin 10/14/2023 10:12:56 8.7 Below low normal 14.0-16.8 (g/dL) Final HCT 10/14/2023 10:12:56 27.0 Below low normal 40.0-48.4 (%) Final MCV 10/14/2023 10:12:56 98.2 82.0-99.5 (fL) Final MCH 10/14/2023 10:12:56 31.6 27.0-34.0 (pg) Final MCHC 10/14/2023 10:12:56 32.2 32.0-36.0 (g/dL) Final RDW 10/14/2023 10:12:56 20.4 11.5-15.5 (%) Final Platelets 10/14/2023 10:12:56 233 140-400 (K/uL) Final MPV 10/14/2023 10:12:56 10.4 6.6-11.1 (fL) Final Nucleated erythrocytes/100 leukocytes [Ratio] in Blood by Automated count 10/14/2023 10:12:56 0 <=0 (/100 WBCs) Final Performing Location [facility] [place] [address] [facility] [address]
--- OUTSIDE RECORDS SUMMARY | 2023-11-13 21:27 | External Medical Summary ---
Author Name Unknown Address Unknown Organization [id number]:[facility] [place] [address] [place] [address] Laboratory Report Ordering Provider Test Date Status KACYJANE 10/14/2023 10:12:56 Final Observation Date Value Abnormality Reference (Units ) Status Vitamin B12 10/14/2023 10:12:56 4499 627-4820 (pg/mL) Final Performing Location LABORATORY C - [address] [place] [address]
--- OUTSIDE RECORDS SUMMARY | 2023-11-13 21:28 | External Medical Summary | Summary of Care ---
Author Name Unknown Organization [facility] Address [address] [place] [address] Phone [phone] Care Team Providers Care Lumber Mover Name Role Phone RyanLacyNancy Muro Primary Care Provider [phone] Reason for Visit * Reason Onset Date Comments Test Results Lab 10/02/2023 Encounter Details Date Type Department Care Team (Late st Contact Info) Description 10/02/2023 Telephone Gastroenterology, [facility] [address] [place] [address] Jayda Jeong DO [address] [place] [address] Test Results Lab Allergies No known active allergiesdocumented as of this encounter (statuses as of 10/02/2023) Medications Medication Sig Dispensed Refills Start Date End Date Status MULTIPLE VITAMIN PO TABS 1 TABLET DAILY 0 07/03/2011 Active OMEGA-3 FISH OIL 1000 MG PO CAPS Take one capsule by mouth daily 0 07/03/2011 Active Blood Glucose Monitoring Suppl ([employer] ULTRA SYSTEM) W/DEVICE KITIndications:DM type 2, goal [...] neuropathy, with long-term current use of insulin ([facility]),Type 2 diabetes mellitus with hemoglobin [...] neuropathy, with long-term current use of insulin ([facility]) Use TWICE a day to test glucose Diagnosis = E11.9 200 Each 3 03/19/2023 Active Ozempic (2 MG/DOSE) 8 MG/3ML Subcutaneous Solution Pen-injector (Semaglutide (2 MG/DOSE))Indicatio ns:Type 2 diabetes mellitus with diabetic neuropathy, with long-term current use of insulin ([facility]) Inject 2 mg under the [...] the morning. 0 06/04/2023 Active Epoetin Gautam-epbx 35471 UNIT/ML Injection Solution (Retacrit) Inject 2 mL [...] neuropathy, with long-term current use of insulin ([facility]) Inject 20 Units under the [...] as of this encounter (statuses as of 10/02/2023) Active Problems Problem Noted Date Diagnosed Date [...] Non-obstructive. Noted on CT scan at [facility] 05/2019 Mild nonproliferative diabet ic retinopathy [...] as of this encounter (statuses as of 10/02/2023) Resolved Problems Problem Noted Date Diagnosed Date [...] Obesity Taxonomy 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 of inactive term longterm current use of ant icoagulant therapy 03/16/2005 [...] as of this encounter (statuses as of 10/02/2023) Immunizations Name Administration Dates Next Due COVID-19 mRNA, LNP-s, No Pre serve, 2-Dose Series ([facility]) 06/20/2021,10/22/2020,09/26/2020 COVID-19, LNP-s, No Preserve , Jamie-sucrose, Ages 12+ ([facility]) 03/13/2022 Covid-19, Mrna, Lnp-s, Pf, B ivalent, 30 Mcg, IM, 12 yrs and above (Pfizer) 09/20/2022 Pneumococcal Conjugate Vacci ne, 20-valent ([id number]) 03/14/2022 Pneumococcal Polysaccharide PPV23 (Pneumovax) 03/19/2006 Seasonal [...] encounter Miscellaneous Notes * Telephone Encounter - Quita Curiel RN - 10/02/2023 1:24 PM EST Patient notified. Transferred to [facility] to set up EGD * Telephone Encounter - Jayda Jeong DO - 10/02/2023 12:37 PM EST Please let the patiernt know his serum gastric level was normal. I would suggest we perform a surveillance EGD in 3 to 4 months to enure that the ulcers seen duringthe exam last week heal. documented in this encounter Plan of Treatment Upcoming Encounters Date Type Department Care Team (Late st Contact Info) Description 10/14/2023 9:30 AM EST Laboratory Laboratory [address] [place] [address] [place] [address] 10/15/2023 1:45 PM EST Office Visit Hematology/Oncology [facility] [address] [place] [phone] Fly Velazquez MD [address] [facility] [place] [address] 10/15/2023 2:15 PM EST Immunization/Injecti on Hematology[facility] [place] [facility] [phone] Nurse, Med [address] [facility] [place] [address] 10/23/2023 10:00 AM EDT Office Visit Sleep Disorders Ctr Manny Browne, [place] [address] [place] [phone] Dorothy Toscano CRNP [address] [place] [address] 10/24/2023 2:00 PM EDT Office Visit Ophthalmology, [facility] [place] [address] [place] [address] Mika Diaz, DO [address] [place] [address] 12/20/2023 11:40 AM EDT Office Visit Family Medicine [address] [place] [address] Marry Hansen [address] [place] [address] 12/25/2023 2:00 PM EDT Office Visit Nephrology, [place] [address] [place] [address] ZemaitisBeckie PA-C [address] [place] [address] Scheduled Orders Name Type Priority Associated Diagnoses Orde r Schedule EGD, FLEXIBLE, W/BIOPSY Procedures Routine Duodenal ulcer without hemorrhage or perforation and without obstruction Expected: 12/31/2023, Expires: 10/30/2024 Scheduled Procedures Name Priority Associated Diagnoses Date/Ti me COLONOSCOPY FLEXIBLE PROXIMAL DIAGNOSTIC Recall History of colon polyps Health Maintenance Due Date Last Done Comments Depression Screening 01/28/2021 01/29/2020 Diabetic Foot Exam 03/14/2023 03/14/2022, 0 11/30/2015, 11/09/2014, Additional history exists COVID-19 Vaccine ( season) 2023 09/20/2022, 03/13/2022, 06/20/2021, Additional history exists Diabetic Eye Exam 10/09/2023 10/09/2022, , 06/12/2022, Additional history exists HbA1c 01/14/2024 07/15/2023, 08/03/2023, 09/18/2022, Additional history exists Albumin/Creatinine Ratio 02/20/2024 023, 03/14/2022, 05/19/2021, Additional history exists GFR 03/02/2024 09/02/2023, 08/12, 07/29/2023, Additional history exists CKD PHOS USE SMARTSET 90790 09/02/202408/13, 09/18/2022, 08/29/2021, Additional history exists CKD HGB USE SMARTSET 80659 09/30/202409/30, 09/30/2023, 09/16/2023, Additional history exists COLONOSCOPY-EVERY [...] this encounter Medical Devices Implanted Type Area System Support Technician Device Identifier Shelf Expiration Date Model / Serial / Lot Envista Hydrophobic Acrylic Intraocular Lens Implanted:Qty: 1 on 12/25/2016 by Raul Neely MD at OR [facility] Right: Eye [employer] 11/09/2018 [id number] / [id number] / [id number] Envista Mx60 +10.0 D Implanted:Qty: 1 on 01/29/2017 by Raul Neely MD at OR [facility] Left: Eye 11/09/2018 [id number] / [id number] / [id number] documented as of this encounter Visit Diagnoses Diagnosis Duodenal ulcer without hemorrhage or perforation and without obstruction- Primary Duodenal ulcer, unspecified as acute or chronic, without hemorrhage, perforation, or obstruction documented in this [...] and were consensually agreed upon. Care Teams Lumber Mover Relationship Specialty Start Date End Date Nancy Ryan DO [address] [place] [address] [place] [address] PCP - General Internal Medicine 09/11/18 documented as of this encounter
--- OUTSIDE RECORDS SUMMARY | 2023-11-13 21:28 | External Medical Summary | Summary of Care ---
Author Name Unknown Organization [facility] Address [address] [place] [address] Phone [phone] Care Team Providers Care Electronic Science Teacher Name Role Phone Marlon Ibrahim DO Primary Care Provider Reason for Referral * Evaluate & Treat - Unlimited Visits (Within 10 days (routine)) - Pending Review Specialty Diagnoses / Procedures Referred By Contac t Referred To Contact Wound Care Diagnoses Non-pressure chronic ulcer of lower leg, limited to breakdown of skin, unspecified laterality (HCC) Marlon Ibrahim DO [address] [place] [address] [place] [address] Referral ID Status Reason Start Date Expiration Date Visits Requested Visits Authorized [id number] Pending Review Specialty Services Required 10/03/[phone] Question Answer Referral Priority Within 10 days (routine) Where should this appointment be scheduled? External - [facility] Comments Assess for: Other: bilateral LE wounds with slough/eschar, needs debridement. Previously known to clinic. Reason for Visit * Reason Onset Date Comments Home Health 10/01/2023 Appointment 10/01/2023 Wound Clinic/[facility] Encounter Details Date Type Department Care Team ([facility] st Contact Info) Description 10/01/2023 Telephone Family Medicine [address] [place] [phone] Marlon Ibrahim, [address] [place] [address] Home Health; Appointment (Wound Clinic/[facility]... Allergies No known active allergiesdocumented as of this encounter (statuses as of 10/03/2023) Medications Medication Sig Dispensed Refills Start Date End Date Status MULTIPLE VITAMIN PO TABS 1 TABLET DAILY 0 07/03/2011 Active OMEGA-3 FISH OIL 1000 MG PO CAPS Take one capsule by mouth daily 0 07/03/2011 Active Blood Glucose Monitoring Suppl ([employer] ULTRA SYSTEM) W/DEVICE KITIndications:DM type 2, goal [...] neuropathy, with long-term current use of insulin (HCC),Type 2 diabetes mellitus with hemoglobin A1c goal [...] AND DINNER 180 Tablet 3 12/10/2022 Active Avancen MODTouch Verio In Vitro Strip (Glucose Blood) Use [...] current use of insulin ([facility]) Take 1 Tablet by mouth 2 times a day with morning and evening meals. 180 Tablet 3 05/17/2023 Active Losartan Potassium 50 MG Oral Tablet (Cozaar) Take 0.5 Tablets by mouth in the morning. 0 06/04/2023 Active Epoetin Gautam-epbx 30059 UNIT/ML Injection Solution (Retacrit) Inject 2 mL [...] as of this encounter (statuses as of 10/03/2023) Active Problems Problem Noted Date Diagnosed Date [...] Overview: Non-obstructive. Noted on CT scan at [facility] 05/2019 Mild nonproliferative diabet ic [...] as of this encounter (statuses as of 10/03/2023) Resolved Problems Problem Noted Date Diagnosed Date [...] as of this encounter (statuses as of 10/03/2023) Immunizations Name Administration Dates Next Due COVID-19 mRNA, LNP-s, No Pre serve, 2-Dose Series ([employer] 06/20/2021,10/22/2020,09/26/2020 COVID-19, LNP-s, No Preserve , Jamie-sucrose, Ages 12+ (Pfizer) 03/13/2022 Covid-19, Mrna, Lnp-s, Pf, B ivalent, 30 Mcg, IM, 12 yrs and above (Pfizer) 09/20/2022 Pneumococcal Conjugate Vacci ne, 20-valent ([id number]) 03/14/2022 Pneumococcal Polysaccharide PPV23 (Pneumovax) 03/19/2006 Seasonal [...] encounter Miscellaneous Notes * Telephone Encounter - Torrie Friedman OSA - 10/03/2023 3:49 PM EST I called [facility] and left message on their VM to call pt to schedule an appt. Referral and records faxed to them at [phone]. * Addendum Note - Marlon Ibrahim DO - 10/03/2023 2:35 PM ESTAddended by: MARLON IBRAHIM on: 10/03/2023 02:35 PM Modules accepted: Orders * Telephone Encounter - Marlon Ibrahim DO - 10/03/2023 2:35 PM EST Wound referral placed. Please fax/notify home health. * Telephone Encounter - Enriqueta Baker LPN - 10/02/2023 4:15 PM EST HH Concerns Lisa VARMA, Calling from: [facility] Report/Concerns of: need for wound clinic referral Symptoms: see Narrative Vitals: T97.5 P70 RR18 BP 138/68 SP O299 RA Lung sounds clear Blood sugar 135 Narrative: Lisa saw pt today for wound care on legs. She feels pt would benefit with wound clinic referral due to wounds needing debridement. Pt has been seen by wound clinic previously he indicatedhe would go to Dr Saldivar out of [facility]. Many small wound that have slough. Wound on back of calf is large with eschar. Call back Lisa with any advice or orders at [phone] Please fax new orders to [phone] * Telephone Encounter - Najma Lugo LPN - 10/01/2023 2:48 PM EST Lisa calling from [facility]. Wanted to know if the patient was ordered an antibiotic. Informed they were ordered macrobid 100 mg twice a day for 7 days. Verbalized understanding. documented in this encounter Plan of Treatment Upcoming Encounters Date Type Department Care Team (Latest Contact Info) Description 4 9:30 AM EST Laboratory Laboratory [address] [place] [phone] [place] [address] 4 1:45 PM EST Office Visit Hematology/Onco logy [facility] [place] [address] [facility] [place] [phone] Fly Velazquez MD [address] [facility] [place] [address] 4 2:15 PM EST [facility] [address] [place] [phone] Nurse, Med 4 [address] [facility] [place] [address] 4 10:00 AM EDT Office Visit Sleep Disorders Ctr Manny Browne, [place] [address] [place] [address] Dorothy Toscano CRNP [address] [place] [address] 4 2:00 PM EDT Office Visit Ophthalmology, [facility] [place] [address] [place] [address] Mika Diaz, DO [address] [place] [address] 4 11:40 AM EDT Office Visit Family Medicine [address] [place] [address] Marry Hansen CRNP [address] [place] [address] [place] [address] 4 2:00 PM EDT Office Visit Nephrology, [facility] [address] [place] [address] ZemaBeckie umanzor PA-C [address] [place] [address] 4 2:36 PM EDT Hospital Encounter OR [facility], Operating Room, [facility] - 4th Floor [address] [place] [address] Jayda Jeong, DO [address] [place] [address] 4 2:36 PM EDT - 4 3:09 PM EDT Surgery OR [facility], Operating Room, [facility] - 4th Floor [address] [place] [address] Jayda Jeong, DO [address] [place] [address] ESOPHAGOGASTRODUODENOSCOPY (EGD), FLEXIBLE, TRANSORAL, DIAGNOSTIC Scheduled Procedures Name Priority Associated Diagnoses Date/Ti mi ESOPHAGOGASTRODUODENOSCOPY ( EGD), FLEXIBLE, TRANSORAL, DIAGNOSTIC Gastric ulcer 01/01/2024 2:36 PM EDT COLONOSCOPY FLEXIBLE PROXIMA L DIAGNOSTIC Recall History of colon polyps Scheduled Referrals Name Type Priority Associated Diagnoses Orde r Schedule WOUND CARE REFERRAL OP Referral Within 10 days (routine) Non-pressure chronic ulcer of lower leg, limited to breakdown of skin, unspecified laterality (HCC) Ordered: 10/03/2023 Health Maintenance Due Date Last Done Comments [...] Additional history exists CKD PHOS USE SMARTSET 68334 09/02/202408/13, 09/18/2022, 08/29/2021, Additional history exists CKD HGB USE SMARTSET 48744 09/30/202409/30, 09/30/2023, 09/16/2023, Additional history exists COLONOSCOPY-EVERY [...] this encounter Medical Devices Implanted Type Area Project Account Manager Device Identifier Shelf Expiration Date Model / Serial / Lot Envista Hydrophobic Acrylic Intraocular Lens Implanted:Qty: 1 on 12/25/2016 by Raul Neely MD at OR [facility] Right: Eye [employer] 11/09/2018 [id number] / [id number] / [id number] Envista Mx60 +10.0 D Implanted:Qty: 1 on 01/29/2017 by Raul Neely MD at OR [facility] Left: Eye 11/09/2018 [id number] / [id number] / [id number] documented as of this encounter Visit Diagnoses Diagnosis Non-pressure chronic ulcer of lower leg, limited to breakdown of skin, unspecified laterality (HCC)- Primary Gastric ulcer Gastric ulcer, unspecified [...] and were consensually agreed upon. Care Teams Electronic Science Teacher Relationship Specialty Start Date End Date Marlon Ibrahim DO [address] [place] [address] [place] [address] PCP - General Internal Medicine 09/11/18 documented as of this encounter
--- OUTSIDE RECORDS SUMMARY | 2023-11-13 21:28 | External Medical Summary | Summary of Care ---
Author Name Unknown Organization [facility] Address [address] [place] [address] Phone [phone] Care Team Providers Care Seam Sewer Name Role Phone RyanLacyNancy Muro Primary Care Provider Reason for Visit * Reason Onset Date Comments Test Results Lab 10/02/2023 Encounter Details Date Type Department Care Team (Late st Contact Info) Description 10/02/2023 Telephone Gastroenterology, [facility] [address] [place] [address] Jayda Jeong DO [address] [place] [address] Test Results Lab Allergies No known active allergiesdocumented as of this encounter (statuses as of 10/02/2023) Medications Medication Sig Dispensed Refills Start Date End Date Status MULTIPLE VITAMIN PO TABS 1 TABLET DAILY 0 07/03/2011 Active OMEGA-3 FISH OIL 1000 MG PO CAPS Take one capsule by mouth daily 0 07/03/2011 Active Blood Glucose Monitoring Suppl ([employer] ULTRA SYSTEM) W/DEVICE KITIndications:DM type 2, [...] with long-term current use of insulin ([facility]),Type 2 diabetes mellitus with hemoglobin [...] with long-term current use of insulin ([facility]) Use TWICE a day to test glucose Diagnosis = E11.9 200 Each 3 03/19/2023 Active Ozempic (2 MG/DOSE) 8 MG/3ML Subcutaneous Solution Pen-injector (Semaglutide (2 MG/DOSE))Indicatio ns:Type 2 diabetes mellitus with diabetic neuropathy, with long-term current use of insulin ([facility]) Inject 2 mg under the [...] the morning. 0 06/04/2023 Active Epoetin Gautam-epbx 29530 UNIT/ML Injection Solution (Retacrit) Inject 2 mL [...] with long-term current use of insulin ([facility]) Inject 20 Units under the [...] Overview: Non-obstructive. Noted on CT scan at [facility] 05/2019 Mild nonproliferative diabet ic [...] Obesity Taxonomy 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 of inactive term [facility] current use of ant icoagulant therapy 03/16/2005 [...] mRNA, LNP-s, No Pre serve, 2-Dose Series ([facility]) 06/20/2021,10/22/2020,09/26/2020 COVID-19, LNP-s, No Preserve , Jamie-sucrose, Ages 12+ ([facility]) 03/13/2022 Covid-19, Mrna, Lnp-s, Pf, B ivalent, 30 Mcg, IM, 12 yrs and above (Pfizer) 09/20/2022 Pneumococcal Conjugate Vacci ne, 20-valent ([id number]) 03/14/2022 Pneumococcal Polysaccharide PPV23 (Pneumovax) 03/19/2006 Seasonal [...] encounter Miscellaneous Notes * Telephone Encounter - [facility] Torre OSA - 10/02/2023 1:33 PM EST Spoke to pt, raf'd 01/01/24 at [facility]. * Telephone Encounter - Quita Curiel RN - 10/02/2023 1:24 PM EST Patient notified. Transferred to [facility] to set up EGD * Telephone Encounter [...] Description 4 9:30 AM EST Laboratory Laboratory [address] [place] [address] [place] [address] 4 1:45 PM EST Office Visit Hematology/Onco logy [facility] [address] [facility] [place] [phone] Fly Velazquez MD [address] [facility] [place] [address] 4 2:15 PM EST Immunization/In jection Hematology/Onco logy [facility] [address] [place] [phone] Nurse, Med 4 [address] [facility] [place] [address] 4 10:00 AM EDT Office Visit Sleep Disorders Ctr Manny Browne [place] [address] [facility] [place] [address] Dorothy Toscano CRNP [address] [place] [address] 4 2:00 PM EDT Office Visit Ophthalmology, [facility] [address] [place] [address] Mika Diaz, DO [address] [place] [address] 4 11:40 AM EDT Office Visit Family Medicine [address] [place] [phone] Marry Hansen [address] [place] [address] 4 2:00 PM EDT Office Visit Nephrology, [facility] [address] [place] [address] Zemaitis, Beckie Tucker PA-C [address] [place] [address] 4 2:36 PM EDT Hospital Encounter OR [facility], Operating Room, [facility] - 4th Floor [address] [place] [address] Jayda Jeong, DO [address] [place] [address] 4 2:36 PM EDT - 4 3:09 PM EDT Surgery OR [facility], Operating Room, [facility] - 4th Floor [address] [place] [address] Jayda Jeong, DO [address] [place] [address] ESOPHAGOGASTRODUODENOSCOPY (EGD), FLEXIBLE, TRANSORAL, DIAGNOSTIC Scheduled Orders Name Type Priority Associated Diagnoses Orde r Schedule EGD, FLEXIBLE, W/BIOPSY Procedures Routine Duodenal ulcer without hemorrhage or perforation and without obstruction Expected: 12/31/2023, Expires: 10/30/2024 Scheduled Procedures Name Priority Associated Diagnoses Date/Ti id ESOPHAGOGASTRODUODENOSCOPY ( EGD), FLEXIBLE, TRANSORAL, DIAGNOSTIC Gastric [...] Additional history exists CKD PHOS USE SMARTSET 59944 09/02/202408/13, 09/18/2022, 08/29/2021, Additional history exists CKD HGB USE SMARTSET 61089 09/30/202409/30, 09/30/2023, 09/16/2023, Additional history exists COLONOSCOPY-EVERY [...] this encounter Medical Devices Implanted Type Area Hogshead Roller Device Identifier Shelf Expiration Date Model / Serial / Lot Envista Hydrophobic Acrylic Intraocular Lens Implanted:Qty: 1 on 12/25/2016 by Raul Neely MD at OR [facility] Right: Eye [employer] 11/09/2018 [id number] / [id number] / [id number] Envista Mx60 +10.0 D Implanted:Qty: 1 on 01/29/2017 by Raul Neely MD at OR [facility] Left: Eye 11/09/2018 [id number] / [id number] / [id number] documented as of this encounter Visit Diagnoses Diagnosis Duodenal ulcer without hemorrhage or perforation and without obstruction- Primary Duodenal ulcer, unspecified as acute or chronic, without hemorrhage, perforation, or obstruction Gastric ulcer Gastric ulcer, unspecified as acute [...] and were consensually agreed upon. Care Teams Seam Sewer Relationship Specialty Start Date End Date Nancy Ryan DO [address] [place] [address] [place] [address] PCP - General Internal Medicine 09/11/18 documented as of this encounter
--- OUTSIDE RECORDS SUMMARY | 2023-11-13 21:28 | External Medical Summary | Summary of Care ---
Author Name Unknown Organization [facility] Address [address] [place] [address] Phone [phone] Care Team Providers Care Vp Delivery Name Role Phone Nancy Ryan DO Primary Care Provider [phone] Encounter Details Date Type Department Care Team (Late st Contact Info) Description 10/02/2023 Telephone Gastroenterology, [facility] [address] [place] [address] Jayda Jeong DO [address] [place] [address] Allergies No known active allergiesdocumented as of this encounter (statuses as of 10/02/2023) Medications Medication Sig Dispensed Refills Start Date End Date Status MULTIPLE VITAMIN PO TABS 1 TABLET DAILY 0 07/03/2011 Active OMEGA-3 FISH OIL 1000 MG PO CAPS Take one capsule by mouth daily 0 07/03/2011 Active Blood Glucose Monitoring Suppl (Wengo ULTRA SYSTEM) W/DEVICE KITIndications:DM type 2, goal [...] the morning. 0 06/04/2023 Active Epoetin Gautam-epbx 17172 UNIT/ML Injection Solution (Retacrit) Inject 2 mL [...] Non-obstructive. Noted on CT scan at [facility] 05/2019 Mild nonproliferative diabet ic [...] Obesity Taxonomy 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 of inactive term emt intermediate current use of ant icoagulant therapy [...] mRNA, LNP-s, No Pre serve, 2-Dose Series (DeerTech) 06/20/2021,10/22/2020,09/26/2020 COVID-19, LNP-s, No Preserve , Jamie-sucrose, Ages 12+ ([employer]erTech) 03/13/2022 Covid-19, Mrna, Lnp-s, Pf, B ivalent, 30 Mcg, IM, 12 yrs and above (Pfizer) 09/20/2022 Pneumococcal Conjugate Vacci ne, 20-valent (Niosife12) 03/14/2022 Pneumococcal Polysaccharide PPV23 (Pneumovax) 03/19/2006 Seasonal [...] encounter Miscellaneous Notes * Telephone Encounter - Jayda Jeong DO [...] Description 10/14/2023 9:30 AM EST Laboratory Laboratory [address] [place] [phone] [place] [address] 10/15/2023 1:45 PM EST Office Visit Hematology/Oncology [facility] [address] [facility] [place] [phone] Fly Velazquez MD [address] [place] [address] 10/15/2023 2:15 PM EST Immunization/Injecti on Hematology/Oncology Treatment, [place] [address] [place] [phone] [facility] [address] 10/23/2023 10:00 AM EDT Office Visit Sleep Disorders Ctr [facility] [address] [place] [phone] Dorothy Toscano CRNP [address] [place] [address] 10/24/2023 2:00 PM EDT Office Visit Ophthalmology, [facility] [address] [place] [address] Mika Diaz DO [address] [place] [address] 12/20/2023 11:40 AM EDT Office Visit Family Medicine [address] [place] [phone] Marry Hansen, WEB INTERFACE DEVELOPER[address] [place] [address] 12/25/2023 2:00 PM EDT Office Visit Nephrology, [facility] [address] [facility] [place] [address] ZeBeckie cruz PA-C [address] [facility] [place] [address] Scheduled Orders Name Type Priority Associated Diagnoses [...] Additional history exists CKD PHOS USE SMARTSET 35068 09/02/202408/13, 09/18/2022, 08/29/2021, Additional history exists CKD HGB USE SMARTSET 19075 09/30/202409/30, 09/30/2023, 09/16/2023, Additional history exists COLONOSCOPY-EVERY [...] this encounter Medical Devices Implanted Type Area Solid Tire Finisher Device Identifier Shelf Expiration Date Model / Serial / Lot Envista Hydrophobic Acrylic Intraocular Lens Implanted:Qty: 1 on 12/25/2016 by Raul Neely MD at OR [facility] Right: Eye [employer] 11/09/2018 [id number] / [id number] / [id number] Envista Mx60 +10.0 D Implanted:Qty: 1 on 01/29/2017 by Raul Neely MD at OR [facility] Left: Eye 11/09/2018 [id number] / [id number] / [id number] documented as of this encounter Visit Diagnoses [...] and were consensually agreed upon. Care Teams Vp Delivery Relationship Specialty Start Date End Date Nancy Ryan DO [address] [place] [address] [place] [address] PCP - General Internal Medicine 09/11/18 documented as of this encounter
--- OUTSIDE RECORDS SUMMARY | 2023-11-13 21:28 | External Medical Summary | Summary of Care ---
Author Name Unknown Organization [facility] Address [address] [place] [address] Phone [phone] Care Team Providers Care Journeyman Electrician Name Role Phone Nancy Ryan DO Primary Care Provider [phone] Reason for Visit * Reason Onset Date Comments Home Health 10/01/2023 Encounter Details Date Type Department Care Team (Late st Contact Info) Description 10/01/2023 Telephone Family Medicine [address] [phone] Nancy Ryan DO [address] [place] [address] [place] [address] Home Health Allergies No known active allergiesdocumented as of this encounter (statuses as of 10/02/2023) Medications Medication Sig Dispensed Refills Start Date End Date Status MULTIPLE VITAMIN PO TABS 1 TABLET DAILY 0 07/03/2011 Active OMEGA-3 FISH OIL 1000 MG PO CAPS Take one capsule by mouth daily 0 07/03/2011 Active Blood Glucose Monitoring Suppl (Quick2LAUNCH ULTRA SYSTEM) W/DEVICE KITIndications:DM type 2, goal [...] neuropathy, with long-term current use of insulin ([facility]),Type 2 diabetes mellitus with hemoglobin A1c goal [...] neuropathy, with long-term current use of insulin ([facility]) Use TWICE a day to test glucose Diagnosis = E11.9 200 Each 3 03/19/2023 Active Ozempic (2 MG/DOSE) 8 MG/3ML Subcutaneous Solution Pen-injector (Semaglutide (2 MG/DOSE))Indicatio ns:Type 2 diabetes mellitus with diabetic neuropathy, with long-term current use of insulin ([facility]) Inject 2 mg under the skin once [...] the morning. 0 06/04/2023 Active Epoetin Gautam-epbx 41575 UNIT/ML Injection Solution (Retacrit) Inject 2 mL [...] neuropathy, with long-term current use of insulin ([facility]) Inject 20 Units under the skin in [...] Overview: Non-obstructive. Noted [facility] CT scan at [facility] 05/2019 Mild nonproliferative diabet ic [...] mRNA, LNP-s, No Pre serve, 2-Dose Series (Netgen) 06/20/2021,10/22/2020,09/26/2020 COVID-19, LNP-s, No Preserve , Jamie-sucrose, Ages 12+ (Netgen) 03/13/2022 Covid-19, Mrna, Lnp-s, Pf, B ivalent, 30 Mcg, IM, 12 yrs and above (Pfizer) 09/20/2022 Pneumococcal Conjugate Vacci ne, 20-valent ([id number]) 03/14/2022 Pneumococcal Polysaccharide PPV23 (Pneumovax) 03/19/2006 Seasonal [...] encounter Miscellaneous Notes * Telephone Encounter - Enriqueta Baker LPN - 10/02/2023 4:15 PM EST Concerns Lisa VARMA, Calling from: [facility] Report/Concerns of: need for wound clinic referral Symptoms: see Narrative Vitals: T97.5 P70 RR18 BP 138/68 SP O299 RA Lung sounds clear Blood sugar 135 Narrative: Lisa saw pt today for wound care on legs. She feels pt would benefit with wound clinicreferral due to wounds needing debridement. Pt has been seen by wound clinic previously he indicated he would go to Dr Saldivar out of [facility]. Many small wound that have slough. Wound onback of calf is large with eschar. Call back Lisa with any advice or orders at [phone] Please fax new orders to [phone] * Telephone Encounter - Najma Lugo LPN - 10/01/2023 2:48 PM EST Lisa calling from [facility]. Wanted to know if the patient was ordered an antibiotic. Informed they were ordered macrobid 100 mg twice a day for 7 days. Verbalized understanding. documented in this encounter Plan of Treatment Upcoming Encounters Date Type Department Care Team (Latest Contact Info) Description 4 9:30 AM EST Laboratory Laboratory [address] [place] [phone] [address] [place] [address] 4 1:45 PM EST Office Visit Hematology/Onco logy [facility] 200 [facility] [place] [phone] Fly Velazquez MD 200 [facility] [place] [address] 4 2:15 PM EST Immunization/In jection Hematology/Onco logy [facility] [address] [place] [phone] Nurse, Med [address] [place] [address] 4 10:00 AM EDT Office Visit Sleep Disorders Ctr [facility] [address] [place] [phone] Dorothy Toscano CRNP [address] [place] [address] 4 2:00 PM EDT Office Visit Ophthalmology, [facility] [address] [place] [address] Mika Diaz DO [address] [place] [address] 4 11:40 AM EDT Office Visit Family [address] [phone] Marry Hansen CRNP [address] [place] [address] [place] [address] 4 2:00 PM EDT Office Visit Nephrology, [facility] [address] [place] [address] ZeBeckie cruz PA-C [address] [place] [address] 4 2:36 PM EDT Hospital Encounter OR GL, Operating Room, [facility] - 4th Floor [address] [place] [address] Jayda Jeong, [address] [place] [address] 4 2:36 PM EDT - 4 3:09 PM EDT Surgery OR [facility], Operating Room, [facility] - 4th Floor [address] [place] [address] Jayda Jeong, DO [address] [place] [address] ESOPHAGOGASTRODUODENOSCOPY (EGD), FLEXIBLE, TRANSORAL, DIAGNOSTIC Scheduled Procedures [...] Additional history exists CKD PHOS USE SMARTSET 29171 09/02/202408/13, 09/18/2022, 08/29/2021, Additional history exists CKD HGB USE SMARTSET 74694 09/30/202409/30, 09/30/2023, 09/16/2023, Additional history exists COLONOSCOPY-EVERY [...] this encounter Medical Devices Implanted Type Area Underground Drill Operator Device Identifier Shelf Expiration Date Model / Serial / Lot Envista Hydrophobic Acrylic Intraocular Lens Implanted:Qty: 1 on 12/25/2016 by Raul Neely MD at OR [facility] Right: Eye [employer] 11/09/2018 [id number] / [id number] / [id number] Envista Mx60 +10.0 D Implanted:Qty: 1 on 01/29/2017 by Raul Neely MD at OR [facility] Left: Eye 11/09/2018 [id number] / [id number] / [id number] documented as of this encounter Advance Directives [...] and were consensually agreed upon. Care Teams Journeyman Electrician Relationship Specialty Start Date End Date Nancy Ryan DO [address] [place] [address] [place] [address] PCP - General Internal Medicine 09/11/18 documented as of this encounter
--- OUTSIDE RECORDS SUMMARY | 2023-11-13 21:28 | External Medical Summary | Summary of Care ---
Author Name Unknown Organization [facility] Address [address] [place] [address] Phone [phone] Care Team Providers Care Textile Pin Worker Name Role Phone Marlon Ibrahim DO Primary Care Provider [phone] Reason for Referral * Evaluate & Treat - Unlimited Visits (Within 10 days (routine)) - Pending Review Specialty Diagnoses / Procedures Referred By Contdevika t Referred To Contact Wound Care Diagnoses Non-pressure chronic ulcer of lower leg, limited to breakdown of skin, unspecified laterality (HCC) Marlon Ibrahim [address] [place] [address] Referral ID Status Reason Start Date Expiration Date Visits Requested Visits Authorized [id number] Pending Review Specialty Services Required 10/03/[phone] Question Answer Referral Priority Within 10 days (routine) Where should this appointment be scheduled? External - [facility] Comments Assess for: Other: bilateral LE wounds with slough/eschar, needs debridement. Previously known to clinic. Reason for Visit * Reason Onset Date Comments Home Health 10/01/2023 Encounter Details Date Type Department Care Team ([facility] Contact Info) Description 10/01/2023 Telephone Family Medicine [address] [place] [phone] Ibrahim, Marlon Muro[address] [place] [address] Home Health Allergies No known active allergiesdocumented as of this encounter (statuses as of 10/03/2023) Medications Medication Sig Dispensed Refills Start Date End Date Status MULTIPLE VITAMIN PO TABS 1 TABLET DAILY 0 07/03/2011 Active OMEGA-3 FISH OIL 1000 MG PO CAPS Take one capsule by mouth daily 0 07/03/2011 Active Blood Glucose Monitoring Suppl (Clctin ULTRA SYSTEM) W/DEVICE KITIndications:DM type 2, goal [...] long-term current use of insulin ([facility]),Type 2 diabetes mellitus with hemoglobin A1c goal of less than 7.0% ([facility]) Use once a day with [...] long-term current use of insulin ([facility]) Use TWICE a day to test glucose Diagnosis = E11.9 200 Each 3 03/19/2023 Active Ozempic (2 MG/DOSE) 8 MG/3ML Subcutaneous Solution Pen-injector (Semaglutide (2 MG/DOSE))Indicatio ns:Type 2 diabetes mellitus with diabetic neuropathy, with long-term current use of insulin ([facility]) Inject 2 mg under the [...] long-term current use of insulin ([facility]) Take 1 Tablet by mouth 2 times a day with morning and evening meals. 180 Tablet 3 05/17/2023 Active Losartan Potassium 50 MG Oral Tablet (Cozaar) Take 0.5 Tablets by mouth in the morning. 0 06/04/2023 Active Epoetin Gautam-epbx 96563 UNIT/ML Injection Solution (Retacrit) Inject 2 mL [...] long-term current use of insulin ([facility]) Inject 20 Units under the [...] Noted on CT scan at [facility] 05/2019 Mild nonproliferative diabet ic retinopathy of [...] mRNA, LNP-s, No Pre serve, 2-Dose Series ([employer]) 06/20/2021,10/22/2020,09/26/2020 COVID-19, LNP-s, No Preserve , Jamie-sucrose, Ages 12+ (Pfizer) 03/13/2022 Covid-19, Mrna, Lnp-s, Pf, B ivalent, 30 Mcg, IM, 12 yrs and above ([employer]) 09/20/2022 Pneumococcal Conjugate Vacci ne, 20-valent ([id number]) 03/14/2022 Pneumococcal Polysaccharide PPV23 (Pneumovax) 03/19/2006 Seasonal [...] as of this encounter Miscellaneous Notes * Addendum Note - Marlon Ibrahim DO - 10/03/2023 2:35 PM ESTAddended by: MARLON IBRAHIM on: 10/03/2023 02:35 PM Modules accepted: Orders * Telephone Encounter - Marlon Ibrahim DO - 10/03/2023 2:35 PM EST Wound referral placed. Please fax/notify home health. * Telephone Encounter - Enriqueta Baker LPN - 10/02/2023 4:15 PM EST HH Concerns Lisa RN, Calling from: [facility] Report/Concerns of: need for wound clinic referral [...] would go to Dr Saldivar out of [facility]. Many small wound that have slough. Wound on back of calf is large with eschar. Call back Lisa with any advice or orders at [phone] Please fax new orders to [phone] * Telephone Encounter - Najma Lugo LPN - 10/01/2023 2:48 PM EST Lisa calling from [facility]. Wanted to know if the patient was ordered an antibiotic. Informed they were ordered macrobid 100 mg twice a day for 7 days. Verbalized understanding. documented in this encounter Plan of Treatment Upcoming Encounters Date Type Department Care Team (Latest Contact Info) Description 4 9:30 AM EST Laboratory Laboratory [address] [place] [phone] [place] [address] 4 1:45 PM EST Office Visit Hematology/Onco logy [facility] 200 [facility] [place] [phone] Fly Velazquez MD 200 [facility] [place] [address] 4 2:15 PM EST Immunization/In jection Hematology/Onco logy Treatment, [place] [address] [place] [phone] Nurse, Med 4 200 [facility] [place] [address] 4 10:00 AM EDT Office Visit Sleep Disorders Ctr [facility], [place] [address] [place] [phone] Dorothy Toscano CRNP [address] [place] [address] 4 2:00 PM EDT Office Visit Ophthalmology, [facility] [place] [address] [facility] [place] [address] Mika Diaz, DO [address] [place] [address] 4 11:40 AM EDT Office Visit Family Medicine [address] [place] [phone] Marry Hansen [address] [place] [address] 4 2:00 PM EDT Office Visit Nephrology, [place] [address] [place] [address] ZemaitisBeckie PA-C [address] [place] [address] 4 2:36 PM EDT Hospital Encounter OR GL, Operating Room, [facility] - 4th Floor [address] [place] [address] Jayda Jeong, DO [address] [place] [address] 4 2:36 PM EDT - 4 3:09 PM EDT Surgery OR [facility], Operating Room, [facility] - 4th Floor [address] [place] [address] Jayda Jeong, DO [address] [place] [address] ESOPHAGOGASTRODUODENOSCOPY (EGD), FLEXIBLE, TRANSORAL, DIAGNOSTIC Scheduled Procedures Name Priority Associated Diagnoses Date/Ti hi ESOPHAGOGASTRODUODENOSCOPY ( EGD), FLEXIBLE, TRANSORAL, DIAGNOSTIC Gastric [...] 11/30/2015, 11/09/2014, Additional history exists COVID-19 Vaccine (2022-24 season) 2023 09/20/2022, 03/13/2022, 06/20/2021, Additional history exists Diabetic Eye Exam 10/09/2023 10/09/2022, , 06/12/2022, Additional history exists HbA1c 01/14/2024 07/15/2023, 080 03/2023, 09/18/2022, Additional history exists Albumin/Creatinine Ratio 02/20/2024 023, 03/14/2022, 05/19/2021, Additional history exists GFR 03/02/2024 09/02/2023, 08/12, 07/29/2023, Additional history exists CKD PHOS USE SMARTSET 21797 09/02/202408/13, 09/18/2022, 08/29/2021, Additional history exists CKD HGB USE SMARTSET 11465 09/30/202409/30, 09/30/2023, 09/16/2023, Additional history exists COLONOSCOPY-EVERY [...] this encounter Medical Devices Implanted Type Area Supervisor Personnel Clerks Device Identifier Shelf Expiration Date Model / Serial / Lot Envista Hydrophobic Acrylic Intraocular Lens Implanted:Qty: 1 on 12/25/2016 by Raul Neely MD at OR [facility] Right: Eye [employer] 11/09/2018 [id number] / [id number] / [id number] Envista Mx60 +10.0 D Implanted:Qty: 1 on 01/29/2017 by Raul Neely MD at OR [facility] Left: Eye 11/09/2018 [id number] / [id number] / [id number] documented as of this encounter Visit Diagnoses [...] and were consensually agreed upon. Care Teams Textile Pin Worker Relationship Specialty Start Date End Date Marlon Ibrahim DO [address] [place] [address] [place] [address] PCP - General Internal Medicine 09/11/18 documented as of this encounter
--- OUTSIDE RECORDS SUMMARY | 2023-11-13 21:29 | External Medical Summary | Summary of Care ---
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 Name Role Phone Marlon Ibrahim DO Primary Care Provider Reason for Visit * Reason Onset Date Comments Home Health 09/25/2023 Encounter Details Date Type Department Care Team (Late st Contact Info) Description 09/25/2023 Telephone Family Medicine [address] [phone] Marlon Ibrahim DO [address] [place] [address] [place] [phone] Home Health Allergies No known active allergiesdocumented as of this encounter (statuses as of 09/30/2023) Medications Medication Sig Dispensed Refills Start Date End Date Status MULTIPLE VITAMIN PO TABS 1 TABLET DAILY 0 07/03/2011 Active OMEGA-3 FISH OIL 1000 MG PO CAPS Take one capsule by mouth daily 0 07/03/2011 Active Blood Glucose Monitoring Suppl ([employer] ULTRA SYSTEM) W/DEVICE KITIndications:DM type 2, goal [...] neuropathy, with long-term current use of insulin ([facility]),Type 2 diabetes mellitus with hemoglobin A1c goal [...] neuropathy, with long-term current use of insulin ([facility]) Use TWICE a day to test glucose Diagnosis = E11.9 200 Each 3 03/19/2023 Active Ozempic (2 MG/DOSE) 8 MG/3ML Subcutaneous Solution Pen-injector (Semaglutide (2 MG/DOSE))Indicatio ns:Type 2 diabetes mellitus with diabetic neuropathy, with long-term current use of insulin ([facility]) Inject 2 mg under the skin once a week. DX E11.9 Diabetes Mellitus 3 mL 5 03/26/2023 Active Allopurinol 100 MG Oral Tablet (Zyloprim)Indicati ons:Acute [...] the morning. 0 06/04/2023 Active Epoetin Gautam-epbx 97962 UNIT/ML Injection Solution (Retacrit) Inject 2 mL [...] neuropathy, with long-term current use of insulin ([facility]) Inject 20 Units under the skin in the morning. 0 09/04/2023 Active Pantoprazole Sodium 40 MG Oral Tablet Delayed Release (Protonix) Take 1 Tablet by mouth in the morning. 90 Tablet 0 09/20/2023 Active Nitrofurantoin Monohyd Macro 100 MG Oral Capsule (Macrobid) Take 1 Capsule by mouth in the morning and 1 Capsule before bedtime. Do all this for 7 days. With food until gone. 14 Capsule 0 09/27/2023 4 Active Hospital, Clinic, or Other Facility Administered [...] as of this encounter (statuses as of 09/30/2023) Active Problems Problem Noted Date Diagnosed Date [...] Overview: Non-obstructive. Noted on CT scan at [facility] 05/2019 Mild nonproliferative diabet ic retinopathy of [...] as of this encounter (statuses as of 09/30/2023) Resolved Problems Problem Noted Date Diagnosed Date [...] Obesity Taxonomy 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 of inactive term halfway current use of ant icoagulant therapy 03/16/2005 [...] as of this encounter (statuses as of 09/30/2023) Immunizations Name Administration Dates Next Due COVID-19 mRNA, LNP-s, No Pre serve, 2-Dose Series ([employer]) 06/20/2021,10/22/2020,09/26/2020 COVID-19, LNP-s, No Preserve , Jamie-sucrose, Ages 12+ ([employer]) 03/13/2022 Covid-19, Mrna, Lnp-s, Pf, B ivalent, 30 Mcg, IM, 12 yrs and above (Pfizer) 09/20/2022 Pneumococcal Conjugate Vacci ne, 20-valent ([facility]) 03/14/2022 Pneumococcal Polysaccharide PPV23 (Pneumovax) 03/19/2006 Seasonal [...] encounter Miscellaneous Notes * Telephone Encounter - Marlon Ibrahim DO - 09/30/2023 12:08 PM EST The EGD report suggests omeprazole [address] Wagner - can you clarify the exact PPI regimen you would like this patient to use? He was underthe impression he should be on both pantoprazole and omeprazole. * Telephone Encounter - Naga Nath LPN - 09/27/2023 4:45 PM EST He is aware of Note below. While talking to him I noticed you sent in Omeprazole also for him and he was questioning if he needs to take both pantoprazole and Omeprazole. His last mychart msg said wanted him to take both meds and he said I do understand that , but why do they want me to take both did they find issues. I told him bx still pending You agreeable with him taking both? Do not seen anything in note or charted to start bothmeds * Addendum Note - Marlon Ibrahim DO - 09/27/2023 4:09 PM ESTAddended by: MARLON IBRAHIM on: 09/27/2023 04:09 PM Modules accepted: Orders * Telephone Encounter - Marlon Ibrahim DO - 09/27/2023 4:09 PM EST Macrobid sent to pharmacy. Notify pt. * Telephone Encounter - Roma Laura LPN - 09/27/2023 3:40 PM EST HH Concerns Bridgette BARNETT, Calling from: [facility] Report/Concerns of: Calling to follow up on UA C&S results Symptoms: ongoing weakness and fatigue Vitals: T 97 P 78 RR 18 BP 160/78 SP O2 99% Lung sounds - Clear Weight - N/A Blood sugar - Have been stable - patient did not tell her what his BS was today Narrative: Bridgette states that patient is having ongoing weakness and fatigue. She called to have PCP review patients UA C&S and get patient started on ABT if needed before the weekend Pharm selected. Please advise. Call back Bridgette and Patient with any advice or orders Please fax new orders to [phone] * Telephone Encounter - Roma aLura LPN - 09/25/2023 3:36 PM EST Bridgette ([employer], [facility]) make aware * Telephone Encounter - Britney Griffith LPN - 09/25/2023 3:23 PM EST I tried to call Bridgette. Faxed order to [facility]. I also called pt to make him aware- he states he will bring the urine sample in today. * Telephone Encounter - Marlon Ibrahim DO - 09/25/2023 1:53 PM EST UA/urine culture ordered. Okay to change wound dressing to their recommendation as listed below. Notify [facility]. * Telephone Encounter - Naga Nath LPN - 09/25/2023 12:32 PM EST See note below, please advise * Telephone Encounter - Najma Lugo LPN - 09/25/2023 11:53 AM EST HH Concerns Bridgette RN, [facility] Report/Concerns of: wound discomfort Symptoms: stinging with aquacel Vitals: T 97 P 83 RR 18 BP 128/78 SP O2 98 Lung sounds clear Weight n/a Blood sugar 166 Narrative: Bridgette, calling from [facility]. Since the aquacel stings on the patients wounds, asking if the doctor thinks the dressing should be changed? They have a suggestion of cleansing wound with soap and water, apply aquaphor to surrounding dry skin, apply hydrosera blue ready to wound beds. They tend to stick so should use adaptic to prevent from sticking. Wrap with nonadherent and dry dressing. Changing daily or as needed for dislodgement. He is having urinary frequency and has had incontinence. Urine is foul smelling. He has not been feeling well. Asking if they should check his urine? Encouraged more frequent trips to bathroom and using urinal. Please fax Patient is going to have an UGI tomorrow and would like to bring in the urine sample today. Call back Bridgette with any advice or orders at [phone] Please fax new orders to [phone] documented in this encounter Plan of Treatment Upcoming Encounters Date Type Department Care Team (Late st Contact Info) Description 10/01/2023 9:00 AM EST Office Visit Cardiology [address] [place] [address] Prabhakar Henning PA-C [facility] [place] [address] 10/01/2023 1:00 PM EST Immunization/Inje ction Hematology/Oncology Treatment, [place] [address] [facility] [place] [address] Nurse, Med [address] [facility] [place] [address] 10/15/2023 1:45 PM EST Office Visit Hematology/Oncology [facility] [address] [facility] [place] [address] Fly Velazquez MD [address] [facility] [place] [address] 10/23/2023 10:00 AM EDT Office Visit Sleep Disorders Ctr [facility] [address] [place] [phone] Dorothy Toscano CRNP [address] [place] [address] 10/24/2023 2:00 PM EDT Office Visit Ophthalmology, [facility] [address] [place] [address] Mika Diaz DO [address] [place] [address] 12/20/2023 11:40 AM EDT Office [address] Medicine [address] [address] Marry Hansen [address] [place] [address] 12/25/2023 2:00 PM EDT Office Visit Nephrology, [facility] [address] [facility] [place] [address] ZemaBeckie umanzor PA-C [address] [facility] [place] [address] Scheduled Procedures Name Priority Associated Diagnoses Date/Ti [...] Additional history exists CKD PHOS USE SMARTSET 21182 09/02/202408/13, 09/18/2022, 08/29/2021, Additional history exists CKD HGB USE SMARTSET 35393 09/16/202409/16, 09/16/2023, 09/02/2023, Additional history exists COLONOSCOPY-EVERY 5 YRS AGES [...] this encounter Medical Devices Implanted Type Area Projection Camera Operator Device Identifier Shelf Expiration Date Model / Serial / Lot [employer]ista Hydrophobic Acrylic Intraocular Lens Implanted:Qty: 1 on 12/25/2016 by Raul Neely MD at OR [facility] Right: Eye [employer] 11/09/2018 [id number] / [id number] / [id number] Envista Mx60 +10.0 D Implanted:Qty: 1 on 01/29/2017 by Raul Neely MD at OR [facility] Left: Eye 11/09/2018 [id number] / [id number] / [id number] documented as of this encounter Results * (ABNORMAL) CULTURE, URINE, QUANTITATIVE (09/25/2023 4:07 PM EST) Culture Growth >100,000 colonies/mL Escherichia coli(A) MICROBROTH DILUTIONS 09/27/2023 7:27 AM EST [facility] Urine Urine specimen obtained by clean catch procedure / Unknown Non-blood Collection / Unknown 09/25/2023 4:07 PM EST 09/25/2023 4:07 PM EST Narrative [facility] - 09/27/2023 7:27 AM EST <10,000 colonies/ml mixed normal justin Organism Antibiotic Method Susceptibility Escherichia coli Ampicillin MICROBROTH DILUTIONS >=32: Resistant Escherichia coli Ampicillin/Sulbactam MICROBROTH DILUT IONS 16: Intermediate Escherichia coli Cefazolin MICROBROTH DILUTIONS <=4: Susceptible Escherichia coli Cefepime MICROBROTH DILUTIONS <=1: Susceptible Escherichia coli Ceftriaxone MICROBROTH DILUTIONS <=1: Susceptible Escherichia coli Ciprofloxacin MICROBROTH DILUTIONS <=0.25: Susceptible Comment:Due to william us side effects, the FDA has advised against using Ciprofloxacin to treat uncomplicated UTIs and respiratory tract infections unless there are no alternative treatment options. Escherichia coli Gentamicin MICROBROTH DILUTIONS <=1: Susceptible Escherichia coli Nitrofurantoin MICROBROTH DILUTIONS <=16: Susceptible Escherichia coli Piperacillin Tazobactam MICROBROTH DI LUTIONS <=4: Susceptible Escherichia coli Trimeth/Sulfamethoxazole MICROBROTH D ILUTIONS <=20: Susceptible Marlon Ibrahim DO LAB MICRO - GENERAL ORDERABLES [facility] [address] [place] [address] * (ABNORMAL) URINALYSIS, REFLEX TO MICROSCOPIC (09/25/2023 4:07 PM EST) Color, Urine Yellow Colorless, Light Yellow, Yellow, Dark Yellow 09/25/2023 10:58 PM EST [facility] Clarity, Urine Cloudy(A) Clear 09/25/2023 10:58 PM EST [facility] Glucose, Urine Negative Negative mg/dL 09/25/2023 10:58 PM EST [facility] Bilirubin, Urine Negative Negative 09/25/2023 10:58 PM EST LABORATORY C Ketone, Urine Negative Negative mg/dL 09/25/2023 10:58 PM EST [facility] Specific [place], Urine 1.011 1.003 - 1.030 09/25/2023 10:58 PM EST [facility] Blood, Urine Small(A) Negative 09/25/2023 10:58 PM EST [facility] pH, Urine 6.0 5.0 - 7.5 Units 09/25/2023 10:58 PM EST [facility] Protein, Urine Trace(A) Negative mg/dL 09/25/2023 10:58 PM EST [facility] Urobilinogen, Urine Normal Normal mg/dL 09/25/2023 10:58 PM EST [facility] Nitrite, Urine Negative Negative 09/25/2023 10:58 PM EST [facility] Esterase, Urine Large(A) Negative 09/25/2023 10:58 PM EST [facility] RBC, Urine 10-19(A) 0 - 2 /HPF 09/25/2023 10:58 PM EST [facility] WBC, Urine 50+(A) 0 - 2 /HPF 09/25/2023 10:58 PM EST [facility] Bacteria, Urine 151-200(A) 0 - 25 /HPF 09/25/2023 10:58 PM EST LABORATORY C Hyaline, Cast, Urine 5-9(A) None /LPF 09/25/2023 10:58 PM EST [facility] WBC Clumps, Urine Present(A) None /HPF 09/25/2023 10:58 PM EST [facility] Urine Urine specimen obtained by clean catch procedure / Unknown Non-blood Collection / Unknown 09/25/2023 4:07 PM EST 09/25/2023 4:07 PM EST Marlon Ibrahim DO LAB URINE ORDERABLES [facility] [address] [facility] [place] [address] documented in this encounter Visit Diagnoses Diagnosis Dysuria- Primary documented in this encounter Advance Directives Latest [...] and were consensually agreed upon. Care Teams Starch And Prosize Mixer Relationship Specialty Start Date End Date Marlon Ibrahim DO [address] [place] [address] [place] [address] PCP - General Internal Medicine 09/11/18 documented as of this encounter
--- OUTSIDE RECORDS SUMMARY | 2023-11-13 21:29 | External Medical Summary | Summary of Care ---
Author Name Unknown Organization [facility] Address [address] [place] [address] Phone [phone] Care Team Providers Care Zig Zag Stitcher Name Role Phone Nancy Ryan Primary Care Provider [phone] Reason for Visit * Reason Comments Follow Up 6 month follow up. E donna in LE ongoing and wrapped with leg ulcers and injury. Denies chest pain, palpitations, dizziness and SOB. Encounter Details Date Type Department Care Team (Late st Contact Info) Description 10/01/2023 9:00 AM EST Office Visit Cardiology [address] [place] [address] Prabhakar Henning, PAJoseC [address] [place] [address] Chronic right-sided heart failure (HCC)*; HTN, goal below 130/80; Dyslipidemia, goal LDL below 70; Right carotid bruit; Hyperkalemia; Stage 3a chronic kidney disease (HCC) Allergies No known active allergiesdocumented as of this encounter (statuses as of 10/01/2023) Medications Medication Sig Dispensed Refills Start Date End Date Status MULTIPLE VITAMIN PO TABS 1 TABLET DAILY 0 07/03/2011 Active OMEGA-3 FISH OIL 1000 MG PO CAPS Take one capsule by mouth daily 0 07/03/2011 Active Blood Glucose Monitoring Suppl (AmpIdea ULTRA SYSTEM) W/DEVICE KITIndications:DM type 2, goal A1c below 7 Use as directed 4 times a day. Use up to four times a day as directed. Diagnosis = E11.9 1 Kit 0 06/29/2015 Active dorzolamide-timol ol (COSOPT OCUMETER PLUS) 2.23-0.68% ophthalmic solution INSTILL 1 DROP INTO BOTH EYES BY OPHTHALMIC ROUTE ONCE IN THE MORING AND THE SECOND DROP AROUND 5 PM 4 10/27/2018 Active Aspirin 81 MG Tablet Take 1 Tablet by mouth in the morning. 0 Active BD Pen Needle Wilda U/F 32G X 4 MM (Insulin Pen Needle)Indication s:Type 2 diabetes mellitus with diabetic neuropathy, [...] E11.9 300 Strip 1 03/13/2023 Active OneTouch Hari Lancets 30GIndications:Ty pe 2 diabetes mellitus with diabetic neuropathy, with long-term current use of insulin (HCC) Use TWICE a day to test glucose Diagnosis = E11.9 200 Each 3 03/19/2023 Active Ozempic (2 MG/DOSE) 8 MG/3ML Subcutaneous Solution Pen-injector (Semaglutide (2 MG/DOSE))Indicati ons:Type 2 diabetes mellitus with diabetic neuropathy, with long-term current use of insulin (HCC) Inject 2 mg under the skin once a week. DX E11.9 Diabetes Mellitus 3 mL 5 03/26/2023 Active Additional Information Patient taking differently: 1 mgSubcutaneous QWEEK, DX E11.9 Diabetes Mellitus, Reported on 10/01/2023 Allopurinol 100 MG Oral Tablet (Zyloprim)Indicat ions:Acute gout of right wrist, unspecified cause Take 1 Tablet by mouth in the morning. Take 1 tablet by mouth in the morning in addition to 300 mg tablet for a total dose of 400 mg.. 90 Tablet 3 05/17/2023 Active metFORMIN HCl 500 MG Oral Tablet (Glucophage)Indic ations:Type 2 diabetes mellitus with diabetic neuropathy, with long-term current use of insulin (HCC) Take 1 Tablet by mouth 2 times a day with morning and evening meals. 180 Tablet 3 05/17/2023 Active Losartan Potassium 50 MG Oral Tablet (Cozaar) Take 0.5 Tablets by mouth in the morning. 0 06/04/2023 Active Epoetin Gautam-epbx 93398 UNIT/ML Injection Solution (Retacrit) Inject 2 mL [...] Active Atorvastatin Calcium 20 MG Oral Tablet (Lipitor)Indicati ons:Dyslipidemia, goal LDL below 70 TAKE 1 TABLET BY MOUTH EVERY DAY IN THE MORNING 90 Tablet 3 08/15/2023 Active Insulin Glargine Solostar 100 UNIT/ML Subcutaneous Solution Pen-injector (Flavia Ashraf)Indicatio ns:Type 2 diabetes mellitus with diabetic neuropathy, with long-term current use of insulin (HCC) Inject 20 Units under the skin in the morning. 0 09/04/2023 Active Omeprazole 40 MG Oral Capsule Delayed Release (PriLOSEC) Take 1 Capsule by mouth in the morning. 1 hour before the first meal of the day. 90 Capsule 3 10/01/2023 Active Nitrofurantoin Monohyd Macro 100 MG Oral Capsule (Macrobid) Take 1 Capsule by mouth in the morning and 1 Capsule before bedtime. Do all this for 7 days. With food until gone. 14 Capsule 0 09/27/2023 10/01/19 24 Discontinu ed(End of Procedure) Hospital, Clinic, or Other Facility Administered Medication [...] as of this encounter (statuses as of 10/01/2023) Active Problems Problem Noted Date Diagnosed Date [...] Non-obstructive. Noted on CT scan at [facility] 05/2019 Mild nonproliferative diabet ic retinopathy [...] Diabetes Taxonomy. 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 of inactive term SPENECR (obstructive sleep apnea) 06/11/2001 Overview: CPAP 11 cwp? 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 therapy 03/16/2005 [...] as of this encounter (statuses as of 10/01/2023) Immunizations Name Administration Dates Next Due COVID-19 mRNA, LNP-s, No Pre serve, 2-Dose Series ([employer]) 06/20/2021,10/22/2020,09/26/2020 COVID-19, LNP-s, No Preserve , Jamie-sucrose, Ages 12+ (Pfizer) 03/13/2022 Covid-19, Mrna, Lnp-s, Pf, B ivalent, 30 Mcg, IM, 12 yrs and above (Pfizer) 09/20/2022 Pneumococcal Conjugate Vacci ne, 20-valent ([id number]) 03/14/2022 Pneumococcal Polysaccharide PPV23 (Pneumovax) 03/19/2006 Seasonal [...] Sign Reading Time Taken Comments Blood Pressure 122/56 10/01/2023 9:27 AM EST Pulse 80 10/01/2023 9:27 AM EST Temperature - - Respiratory Rate 16 10/01/2023 9:27 AM EST Oxygen Saturation - - Inhaled Oxygen Concentration - - Weight 142.3 kg (313 lb 11.2 oz) 10/01/2023 9:27 AM EST Height - - Body Mass Index 43.75 09/17/2023 10:02 AM EST documented in this encounter Progress Notes * Prabhakar Henning PA-C - 10/01/2023 9:43 AM EST History of Present Illness: Ronnie Wu is a very pleasant 68-year-old male who returns todayfor routine cardiology follow-up. Mechanical fall in January 2023, down 12 steps, resultant traumatic subarachnoid hemorrhage, multiple spine fractures, rib and scapular fractures all managed conservatively. Hospitalized at [facility] in August 2023, presenting as transfer from [facility] withbilateral lower extremity cellulitis, history of diffuse calcinosis. Patient with a possible episode of coffee-ground emesis prior to hospitalization at [place], chronically prescribed anticoagulation due to history of provoked DVT of the right lower extremity in the . Via shared decision-making, after discussion of risks and benefits, anticoagulation was discontinued at [place]. Outpatient EGD revealed gastritis for which indefinite PPI therapy was advised. Amlodipine initiated by Nephrology in July was discontinued at [place]. Multiple medication changes have been made over the last 3 to 4 months. He is on both chlorthalidone and torsemide and continues to have fluid retention. He is being followed by Home Health, no longer going to the [facility]. is changing the dressings daily. He notes utilizing a cubie for 1 hour per day for exercise. Does the lymphedema pumps twice per day. Notes currently being treated for a bladder infection with Macrobid, alsowith a URI that began the day after EGD, improving. He was noncompliant with CPAP last night due tocough from the URI. No fevers. No chills. No chest pain. No palpitations. No worsening shortness ofbreath. No dizziness or syncope. Problem List: Obstructive sleep apnea with Pickwickian syndrome, chronic CPAP therapy followed by Sleep Medicine Chronic leg edema and past deep venous thrombosis and chronic stasis ulceration. Status saphenous vein radiofrequency ablation by Dr. Ryan. Type II diabetes mellitus with neuropathy Status post May 2015 amputation of the first 5th toe secondary to osteomyelitis. Stage III chronic kidney disease. Chronic anemia. Chart history of B12 deficiency and iron deficiency. Anemia or chronic disease. Dyslipidemia Hypertension Mild bilateral internal carotid artery disease Gout Restless legs syndrome Patient Active Problem List Diagnosis Code SPENCER (obstructive sleep apnea) G47.33 Type 2 diabetes mellitus with diabetic neuropathy, with long-term current use of insulin ([facility]) E11.40, Z79.4 Gout of wrist M10.9 Venous insufficiency I87.2 Vitamin B12 deficiency E53.8 Dyslipidemia, goal LDL below 100 E78.5 Venous stasis dermatitis of both lower extremities I87.2 DM neuropathy, type II diabetes mellitus ([facility]) E11.40 History of DVT (deep vein thrombosis) Z86.718 Venous stasis ulcer of calf ([facility]) I83.002, L97.209 H/O amputation of lesser toe, unspecified laterality ([facility]) Z89.429 HTN, goal below 140/90 I10 Iron deficiency anemia due to chronic blood loss D50.0 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 associated with type 2diabetes mellitus ([facility]) E11.3292 Hyperkalemia E87.5 Renal calculi N20.0 Non-pressure chronic ulcer of unspecified part of left lower leg with unspecified severity ([facility]) L97.929 Varicose veins of right lower extremity with ulcer other part of lower leg (CODE) ([facility]) I83.018 Stage 3a chronic kidney disease N18.31 Non-pressure chronic ulcer of unspecified part of right lower leg with unspecified severity ([facility]) L97.919 Acute gout due to renal impairment involving right wrist M10.331 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 Carpal tunnel syndrome of right wrist G56.01 Chronic right-sided heart failure ([facility]) I50.812 Other specified peripheral vascular diseases ([facility]) I73.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, multiple sites, without tophus (tophi) M1A.39X0 Tubular adenoma D36.9 History of adenomatous polyp of colon Z86.010 Non-pressure chronic ulcer of lower leg, limited to breakdown of skin ([facility]) L97.901 Chronic venous hypertension (idiopathic) with ulcer of bilateral lower extremity (CODE) ([facility]) I87.313 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 ([facility]) E11.3593 Anemia due to stage 3a chronic kidney disease ([facility]) N18.31, D63.1 Venous stasis ulcer of right calf limited to breakdown of skin ([facility]) I83.012, L97.211 Body mass index (BMI) of 40.0 to 44.9 in adult ([facility]) Z68.41 Past Medical History: Diagnosis Date Adult body mass index 50.0-59.9 ([facility]) 09/26/2010 Anemia 06/11/2001 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 management encounter 01/30/2002 Closed fracture of head of radius left wrist Closed fracture of phalanx of finger Fractured Finger #5 right digit DM neuropathy, type II diabetes mellitus ([facility]) 05/08/2016 DM type 2, goal A1c below 7 06/09/2009 DM type 2, not at goal ([facility]) DVT (deep venous thrombosis) ([facility]) 03/18/2012 Dyslipidemia, goal LDL below 100 05/28/2013 Edema 01/17/2010 Fall 01/22/2023 "not sure ho-13 fractures and brain bleed" Fracture of clavicle, closed right colar bone fractured Gout 04/18/2004 uric acid 7.9 Gout of wrist correction (current) use of anticoagulants 03/16/2005 Lumbar degenerative disc disease 03/28/2016 Morbid Obesity, BMI not known Persistent insomnia 06/29/2014 Phlebitis and thrombophlebitis 06/11/2001 Phlebitis and thrombophlebitis of other deep vessels of lower extremities Restless legs syndrome 06/29/2014 Retinal tear 2006 left eye-treated at [facility] in [place] Sensory peripheral neuropathy 05/08/2016 SLEEP APNEA NOS 06/11/2001 Ulcer of lower limb ([facility]) 01/17/2010 Venous insufficiency 04/23/2013 Venous stasis dermatitis 11/09/2014 Venous stasis dermatitis of both lower extremities 11/30/2015 Vitamin B12 deficiency 05/28/2013 Past Surgical History: Procedure Laterality Date 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 COLONOSCOPY, DIAGNOSTIC (RECTUM) 2008 Dr [facility] - [facility] COLONOSCOPY, DIAGNOSTIC (RECTUM) 02/09/2022 benign adenomatous polyp, fair prep, repeat 5 yrs / [facility] EGD, FLEXIBLE, DIAGNOSTIC 09/11/2018 adenomatous & TVA polyps, repeat 3 yrs/[facility] EGD, FLEXIBLE, DIAGNOSTIC 06/30/2021 mild gastric irritation, hyperplastic gastric polyps / [facility] EGD, FLEXIBLE, DIAGNOSTIC N/A 09/26/2023 ESOPHAGOGASTRODUODENOSCOPY (EGD), FLEXIBLE, TRANSORAL, DIAGNOSTIC performed by Jayda Jeong, [place] [facility] FLUORESCEIN ANGIOGRAPHY MULTIFRAME Left 06/12/2022 FA, Dr. Diaz INJECTION OF EYE DRUG Right 06/12/2022 # 1 Avastin OD, Dr. Diaz INJECTION OF EYE DRUG Right 09/17/2022 # 2 Avastin OD, Dr. Diaz INJECTION OF EYE DRUG Right 06/13/2023 #3 Avastin OD; Dr Diaz LASER TRABECULOPLASTY OTHER (INFORMATION) ACT 112 SIGNED 06/12/22 OPHTHALMOLOGY OTHER (INFORMATION) AVASTIN OUS CONSENT SIGNED Dr. Diaz/Karuna (06-12-23) OTHER (INFORMATION) Bilateral AVASTIN CONSENT SIGNED 09/02/24, DR. DIAZ/KARUNA RELIEVE INNER EYE PRESSURE Right 12/25/2016 right GONIOTOMY performed by Raul Neely MD at OR [facility] RELIEVE INNER EYE PRESSURE Left 01/24/2017 left GONIOTOMY performed by Raul Neely MD at [facility] RELIEVE INNER EYE PRESSURE Left 01/29/2017 left GONIOTOMY performed by Raul Neely MD at [facility] REMOVE CATARACT, INSERT LENS PROSTH Right 12/25/2016 right EXTRACAPSULAR CATARACT REMOVAL WITH INTRAOCULAR LENS performed by Raul Neely MD at [facility] REMOVE CATARACT, INSERT LENS PROSTH Left 01/24/2017 left EXTRACAPSULAR CATARACT REMOVAL WITH INTRAOCULAR LENS performed by Raul Neely MD at [facility] REMOVE CATARACT, INSERT LENS PROSTH Left 01/29/2017 left EXTRACAPSULAR CATARACT REMOVAL WITH INTRAOCULAR LENS performed by Raul Neely MD at [facility] TREATMENT OF EXTENSIVE RETINOPATHY, PHOTOCOAGULATION Right 07/17/2023 Laser treatment OD, Dr. 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 Review of patient's allergies indicates: No Known Allergies Current Outpatient Medications Medication Sig Dispense Refill MULTIPLE VITAMIN PO TABS 1 TABLET DAILY 0 OMEGA-3 FISH OIL 1000 MG PO CAPS Take one capsule by mouth daily 0 Blood Glucose Monitoring Suppl (AmpIdea ULTRA SYSTEM) W/DEVICE KIT Use as directed [...] MOUTH TWICE A DAY WITH BREAKFAST AND [id number] Tablet 3 Cloud Directuch Verio In Vitro Strip (Glucose Blood) Use to test blood sugars twice a day. Dx. E11.9 300 Strip 1 Cloud Directuch Delica Lancets 30G Use TWICE a day [...] by mouth in the morning. Epoetin Gautam-epbx 39116 UNIT/ML Injection Solution (Retacrit) Inject 2 mL [...] 1.25 mg 1.25 mg Intravitreal PRN Mika Diaz, DO 1.25 mg at 06/13/23 1143 ROPivacaine (Naropin) inj 1.5 mg 1.5 mg Perineural PRN Mika Diaz, DO 1.5 mg at 144 PHYSICAL EXAM: BP 122/56 | Pulse 80 | Resp 16 | Wt (!) 142.3 kg (313 lb 11.2 oz) | BMI 43.75 kg/m | BSA 2.67 mGeneral: A&OX3. NAD. Elevated BMI. Neck: Right carotid bruit. HENT: Normocephalic. Atraumatic. Eyes: PER. No overt JVD. No carotid bruits. Lungs: Clear. Heart: Distant heart sounds. RRR at 80 bpm. No murmurs appreciated. Abdomen: +BS. Soft. Nontender. Extremities: Dressings not removed. Chronichard indurated edema, 2+, into the thighs. Stasis changes. No clubbing. No cyanosis. Data: August 20, 2016 Lexiscan Interpretation Summary (as per Dr. Manley): Myocardial perfusion imaging is normal. Overall left ventricular systolic function was normal without regional wall motion abnormalities. The left ventricular ejection fraction was 64%. There are no prior studies available for comparison. January 10, 2021 TTE Interpretation Summary (as per Dr. Garcia): The qualitative LV ejection fractionis 60-64% (normal). The LV wall thickness is mildly increased (concentric). The left ventricular diastolic function is normal. The right ventricular cavity size is normal (basal dimension < 4.2 cmRV apical 4 chamber view). The right ventricular systolic function is normal as assessed by tricuspid annular plane systolic excursion (TAPSE) (normal >1.7 cm). No significant valvular disease is present. Compared to prior study of 08/20/2016, there is no significant change. ASSESSMENT : Right heart failure Obstructive sleep apnea with Pickwickian syndrome. Chronic leg edema and past deep venous thrombosis, chronic stasis ulceration, prior bilateral lowerextremity cellulitis Volume status: Hypervolemic. Hypertension Dyslipidemia. LDL 52 mg/day on 02/10/2023. Mild bilateral internal carotid artery disease. Iron deficiency anemia and anemia due to CKD, followed by [facility] Hematology and Nephrology. RECOMMENDATIONS/PLAN: Will confer with Nephrology, RE: ? Discontinue chlorthalidone, concurrently increasing torsemide to40 mg/day. Continue beta-enedelia, ASA, ARB, and statin. Repeat carotid duplex in January 2024. Routine cardiology follow-up in 6 months or as needed. ER with emergencies. Prabhakar Henning PA-C Department of Cardiology I spent a total of 40-54 minutes (exact time 42 mins) on the date of service in preparation, delivery, and documentation of the care provided to Ronnie Wu excluding any time spent in the performance of separately billed services.This visit involved medical care services related to at least one serious condition or complex condition requiring ongoing care.This chart was completed in part utilizing [employer] Speech Voice Recognition Software. Grammatical errors, random word insertions, prounoun errors, and incomplete sentences are an occasional consequence of this system due to software li mitations, ambient noise, and hardware issues. Any formal questions or concerns about the content, text, or information contained within the body of this dictation should be directly addressed to theprovider for clarification. documented in this encounter Nursing Notes * Markie Johnson LPN - 10/01/2023 9:17 AM EST Patient identified by full name and date of Chief Complaint Patient presents with Follow Up 6 month follow up. Edema in LE ongoing and wrapped with leg ulcers and injury. Denies chest pain, palpitations, dizziness and SOB. Examination Room: 3 Name: Ronnie Wu Date of : (1955). Reason for Visit: 6 month follow up Interim Hospitalization(s): [facility] 08/11/23-08/13/23 and [facility] [place] 08/13-08/16/23. Problems/Concerns: See chief complaint Chest Pain/SOB: See chief complaint [facility] Discussed: Not applicable [facility] is a way you can talk to your provider online through e-mail. Would you like to sign up? I can activate it for you? ALREADY ACTIVE Patient was instructed to not get up on the exam table until directed and assisted by their provider; patient is to remain seated in the chair/ wheelchair/ exam table for fall prevention and safety reasons. Patient is aware to have assistance to step down off exam table with personnel. Patient voiced full comprehension of instructions. documented in this encounter Plan of Treatment Upcoming Encounters Date Type Department Care Team (Late st Contact Info) Description 10/14/2023 9:30 AM EST Laboratory Laboratory [address] [place] [phone] [place] [address] 10/15/2023 1:45 PM EST Office Visit Hematology/Oncology [facility] [address] [facility] [place] [phone] Fly Velazquez MD [address] [facility] [place] [address] 10/15/2023 2:15 PM EST Immunization/Injecti on Hematology/Oncology Treatment, [place] [address] [facility] [place] [phone] Nurse, Med [address] [facility] [place] [address] 10/23/2023 10:00 AM EDT Office Visit Sleep Disorders [facility] [address] [place] [phone] Dorothy Toscano CRNP [address] [place] [address] 10/24/2023 2:00 PM EDT [facility] [address] [place] [address] Mika Diaz DO [address] [place] [address] 12/20/2023 11:40 AM EDT Office Visit [address] Medicine [address] [phone] Marry Hansen CRNP [address] [place] [address] [place] [address] 12/25/2023 2:00 PM EDT Office Visit Nephrology, [place] [address] [facility] [place] [address] ZemaitisBeckie PA-C [address] [place] [address] Scheduled Procedures Name Priority Associated Diagnoses Date/Ti [...] Additional history exists CKD PHOS USE SMARTSET 19939 09/02/202408/13, 09/18/2022, 08/29/2021, Additional history exists CKD HGB USE SMARTSET 25975 09/30/202409/30, 09/30/2023, 09/16/2023, Additional history exists COLONOSCOPY-EVERY [...] this encounter Medical Devices Implanted Type Area Deep Fat Fry Cook Device Identifier Shelf Expiration Date Model / Serial / Lot Envista Hydrophobic Acrylic Intraocular Lens Implanted:Qty: 1 on 12/25/2016 by Raul Neely MD at [facility] Right: Eye [employer] 11/09/2018 [id number] / [id number] / [id number] Envista Mx60 +10.0 D Implanted:Qty: 1 on 01/29/2017 by Raul Neely MD at [facility] Left: Eye 11/09/2018 [id number] / [id number] / [id number] documented as of this encounter Visit Diagnoses Diagnosis Chronic right-sided heart failure (HCC)- Primary Congestive heart failure, unspecified HTN, goal below 130/80 Unspecified essential hypertension Dyslipidemia, goal LDL below 70 Other and unspecified hyperlipidemia Right carotid bruit Other symptoms involving cardiovascular system Hyperkalemia Hyperpotassemia Stage 3a chronic kidney disease (HCC) documented in this encounter Advance Directives Latest [...] and were consensually agreed upon. Care Teams Zig Zag Stitcher Relationship Specialty Start Date End Date Nancy Ryan DO [address] [place] [address] [place] [address] PCP - General Internal Medicine 09/11/18 documented as of this encounter
--- OUTSIDE RECORDS SUMMARY | 2023-11-13 21:29 | External Medical Summary | Summary of Care ---
Author Name Unknown Organization [facility] Address [address] [place] [facility] [place] [address] Phone [phone] Care Team Providers Care Concaving Machine Operator Name Role Phone Nancy Ryan DO Primary Care Provider [phone] Reason for Visit * Reason Comments Medication Administration Aranesp * Episode Based Medications (Routine) - Authorized Specialty Diagnoses / Procedures Referred By Contac t Referred To Contact Diagnoses Anemia due to stage 3a chronic kidney disease (HCC) Procedures [place] INJ RETACRIT NON-ESRD USE Tameka Pires CRNP [address] [facility] [place] [address] Anc Hem/Onc [place] DEPT CLOSED - 06/25/[address] [place] [phone] Referral ID Status Reason Start Date Expiration Date V isits Requested Visits Authorized [id number] Authorized 04/01/2023 12/23/[phone] Encounter Details Date Type Department Care Team (Late st Contact Info) Description 10/01/2023 1:00 PM EST Immunization/I njection Hematology/Oncology Treatment, [place] [address] [place] [phone] Nurse, Med [address] [place] [address] Anemia due to stage 3a chronic kidney disease (HCC)* Allergies No known active allergiesdocumented as of this encounter (statuses as of 10/01/2023) Medications Medication Sig Dispensed Refills Start Date End Date Status MULTIPLE VITAMIN PO TABS 1 TABLET DAILY 0 07/03/2011 Active OMEGA-3 FISH OIL 1000 MG PO CAPS Take one capsule by mouth daily 0 07/03/2011 Active Blood Glucose Monitoring Suppl (Payment plugin ULTRA SYSTEM) W/DEVICE KITIndications:DM type 2, goal [...] long-term current use of insulin ([facility]),Type 2 diabetes mellitus with hemoglobin A1c goal of less than 7.0% ([facility]) Use once a day with basaglar. DX [...] long-term current use of insulin ([facility]) Use TWICE a day to test glucose Diagnosis = E11.9 200 Each 3 03/19/2023 Active Ozempic (2 MG/DOSE) 8 MG/3ML Subcutaneous Solution Pen-injector (Semaglutide (2 MG/DOSE))Indicatio ns:Type 2 diabetes mellitus with diabetic neuropathy, with long-term current use of insulin ([facility]) Inject 2 mg under the skin once [...] long-term current use of insulin ([facility]) Take 1 Tablet by mouth 2 times a day with morning and evening meals. 180 Tablet 3 05/17/2023 Active Losartan Potassium 50 MG Oral Tablet (Cozaar) Take 0.5 Tablets by mouth in the morning. 0 06/04/2023 Active Epoetin Gautam-epbx 41703 UNIT/ML Injection Solution (Retacrit) Inject 2 mL [...] long-term current use of insulin ([facility]) Inject 20 Units under the skin in the morning. 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 therapy 03/16/2005 [...] mRNA, LNP-s, No Pre serve, 2-Dose Series ([employer] 06/20/2021,10/22/2020,09/26/2020 COVID-19, LNP-s, No Preserve , Jamie-sucrose, Ages 12+ (Pfizer) 03/13/2022 Covid-19, Mrna, Lnp-s, Pf, B ivalent, 30 Mcg, IM, 12 yrs and above (Pfizer) 09/20/2022 Pneumococcal Conjugate Vacci ne, 20-valent ([id number]) 03/14/2022 Pneumococcal Polysaccharide PPV23 (Pneumovax) 03/19/2006 Seasonal [...] Sign Reading Time Taken Comments Blood Pressure 149/72 10/01/2023 1:07 PM EST Pulse 85 10/01/2023 1:07 PM EST Temperature 36.4 C (97.6 F) 10/01/2023 1:07 PM ES T Respiratory Rate 18 10/01/2023 1:07 PM EST Oxygen Saturation 96% 10/01/2023 1:07 PM EST Inhaled Oxygen Concentration - - Weight - - Height - - Body Mass Index - - documented in this encounter Nursing Notes * Janeth Mcleod, RN - 10/01/2023 1:08 PM EST Chair 8, Aranesp. Per treatment parameters, administer Aranesp for Hgb<10; Hgb 8.6 today. Pt hasno acute concerns to report. Aranesp administered per order; pt tolerated well. Pt discharged in stable condition. documented in this encounter Plan of Treatment Upcoming Encounters Date Type Department Care Team (Late st Contact Info) Description 10/14/2023 9:30 AM EST Laboratory Laboratory [address] [place] [phone] [place] [address] 10/15/2023 1:45 PM EST Office Visit Hematology/Oncology [place] Jordana [address] [place] [phone] Fly Velazquez MD [address] [facility] [place] [address] 10/15/2023 2:15 PM EST Immunization/Injecti on Hematology/Oncology Treatment, [place] [address] [place] [phone] Nurse, Med 4 [address] [facility] [place] [address] 10/23/2023 10:00 AM EDT Office Visit Sleep Disorders Ctr [facility] [address] [place] [phone] Dorothy Toscano CRNP [address] [place] [address] 10/24/2023 2:00 PM EDT Office Visit Ophthalmology, [facility] [address] [place] [address] Mika Diaz DO [address] [place] [address] 12/20/2023 11:40 AM EDT Office Visit Family Medicine [address] [place] [phone] Marry Hansen CRNP [address] [place], [place] [address] [address] 12/25/2023 2:00 PM EDT Office Visit Nephrology, [facility] [address] [facility] [place] [address] ZemaitisBeckie PA-C [address] [facility] [place] [address] Scheduled Procedures Name Priority Associated Diagnoses Date/Ti [...] Additional history exists CKD PHOS USE SMARTSET 34094 09/02/202408/13, 09/18/2022, 08/29/2021, Additional history exists CKD HGB USE SMARTSET 49157 09/30/202409/30, 09/30/2023, 09/16/2023, Additional history exists COLONOSCOPY-EVERY [...] this encounter Medical Devices Implanted Type Area Pediatric Geneticist Device Identifier Shelf Expiration Date Model / Serial / Lot Envista Hydrophobic Acrylic Intraocular Lens Implanted:Qty: 1 on 12/25/2016 by Raul Neely MD at [facility] Right: Eye [employer] 11/09/2018 [id number] / [id number] / [id number] Envista Mx60 +10.0 D Implanted:Qty: 1 on 01/29/2017 by Raul Neely MD at OR [facility] Left: Eye 11/09/2018 [id number] / [id number] / [id number] documented as of this encounter Visit Diagnoses Diagnosis Anemia due to stage 3a chronic kidney disease (HCC)- Primary documented in this encounter Administered Medications Inactive Administered Medications - up to 3 most recent administrations Medication Order MAR Action Action Date Dose Rate Site Epoetin Gautam 89233 UNIT/ML inj 40,000 Units 40,000 Units, Subcutaneous, ONCE, On Sat10/01/23 at 1345, For 1 dose Given 10/01/2023 1:22 PM EST 40,000 Units Arm Right Upper documented in [...] and were consensually agreed upon. Care Teams Concaving Machine Operator Relationship Specialty Start Date End Date Nancy Ryan DO [address] [place] [address] [place] [phone] PCP - General Internal Medicine 09/11/18 documented as of this encounter
--- OUTSIDE RECORDS SUMMARY | 2023-11-13 21:29 | External Medical Summary ---
Author Name Unknown Address Unknown Organization K01:LABORATORY [facility] - [facility] [address] [facility] [address] Laboratory Report Ordering Provider Test Date Status JANE WOODRUFF 09/30/2023 11:02:49 Final Observation Date Value Abnormality Reference (Units ) Status WBC, Total 09/30/2023 11:02:49 6.90 4.00-10.80 (K/uL) Final RBC 09/30/2023 11:02:49 2.77 4.50-5.25 (M/uL) Final Hemoglobin 09/30/2023 11:02:49 8.6 Below low normal 14.0-16.8 (g/dL) Final HCT 09/30/2023 11:02:49 27.4 Below low normal 40.0-48.4 (%) Final MCV 09/30/2023 11:02:49 98.9 82.0-99.5 (fL) Final MCH 09/30/2023 11:02:49 31.0 27.0-34.0 (pg) Final MCHC 09/30/2023 11:02:49 31.4 32.0-36.0 (g/dL) Final RDW 09/30/2023 11:02:49 19.6 11.5-15.5 (%) Final Platelets 09/30/2023 11:02:49 258 140-400 (K/uL) Final MPV 09/30/2023 11:02:49 10.0 6.6-11.1 (fL) Final Nucleated erythrocytes/100 leukocytes [Ratio] in Blood by Automated count 09/30/2023 11:02:49 0 <=0 (/100 WBCs) Final Performing Location LABOR[facility] - [address] [facility] [address]
--- OUTSIDE RECORDS SUMMARY | 2023-11-13 21:29 | External Medical Summary | Summary of Care ---
Author Name Unknown Organization [facility] Address [address] [place] [address] Phone [phone] Care Team Providers Care Insulation Engineman Name Role Phone Nancy Ryna DO Primary Care Provider Reason for Visit * Reason Comments Outpatient Testing Encounter Details Date Type Department Care Team (Late st Contact Info) Description 09/30/2023 10:40 AM EST Laboratory Laboratory [address] [place] [phone] [address] [place] [address] Anemia due to stage 3a chronic kidney disease (HCC) Allergies No known active allergiesdocumented as of this encounter (statuses as of 09/30/2023) Medications Medication Sig Dispensed Refills Start Date End Date Status MULTIPLE VITAMIN PO TABS 1 TABLET DAILY 0 07/03/2011 Active OMEGA-3 FISH OIL 1000 MG PO CAPS Take one capsule by mouth daily 0 07/03/2011 Active Blood Glucose Monitoring Suppl ([facility] ULTRA SYSTEM) W/DEVICE KITIndications:DM type 2, goal [...] neuropathy, with long-term current use of insulin ([facility]),Type 2 diabetes mellitus with hemoglobin [...] neuropathy, with long-term current use of insulin ([facility]) Use TWICE a day to test glucose Diagnosis = E11.9 200 Each 3 03/19/2023 Active Ozempic (2 MG/DOSE) 8 MG/3ML Subcutaneous Solution Pen-injector (Semaglutide (2 MG/DOSE))Indicatio ns:Type 2 diabetes mellitus with diabetic neuropathy, with long-term current use of insulin ([facility]) Inject 2 mg under the [...] the morning. 0 06/04/2023 Active Epoetin Gautam-epbx 70474 UNIT/ML Injection Solution (Retacrit) Inject 2 mL [...] neuropathy, with long-term current use of insulin ([facility]) Inject 20 Units under the skin in the morning. 0 09/04/2023 Active Pantoprazole Sodium 40 MG Oral Tablet Delayed Release (Protonix) Take 1 Tablet by mouth in the morning. 90 Tablet 0 09/20/2023 Active Omeprazole 20 MG Oral Capsule Delayed Release (PriLOSEC) Take 1 Capsule by mouth in the morning. 1 hour before the first meal of the day. 30 Capsule 5 09/27/2023 Active Nitrofurantoin Monohyd Macro 100 MG Oral Capsule (Macrobid) Take 1 Capsule by mouth in the morning and 1 Capsule before bedtime. Do all this for 7 days. With food until gone. 14 Capsule 0 09/27/2023 Active Hospital, Clinic, or Other Facility Administered [...] Non-obstructive. 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 03/16/2005 [...] mRNA, LNP-s, No Pre serve, 2-Dose Series ([employer]) 06/20/2021,10/22/2020,09/26/2020 COVID-19, LNP-s, No Preserve , Jamie-sucrose, Ages 12+ (Pfizer) 03/13/2022 Covid-19, Mrna, Lnp-s, Pf, B ivalent, 30 Mcg, IM, 12 yrs and above (Pfizer) 09/20/2022 Pneumococcal Conjugate Vacci ne, 20-valent ([id number]) 03/14/2022 Pneumococcal Polysaccharide PPV23 (Pneumovax) 03/19/2006 Seasonal [...] 10/01/2023 9:00 AM EST Office Visit Cardiology [address] [place] [address] Prabhakar Henning PA-C [address] [place] [address] 10/01/2023 1:00 PM EST Immunization/Inje ction Hematology/[facility] [place] [facility] [phone] Nurse, Med [address] [facility] [place] [address] 10/15/2023 1:45 PM EST Office Visit Hematology/Oncology [facility] [address] [facility] [place] [phone] Fly Velazquez MD [address] [facility] [place] [address] 10/23/2023 10:00 AM EDT Office Visit Sleep Disorders Ctr [facility] [address] [place] [phone] Dorothy Toscano CRNP [address] [place] [address] 10/24/2023 2:00 PM EDT [facility] [address] [place] [address] Mika Diaz, [address] [place] [address] 12/20/2023 11:40 AM EDT Office Visit Family Medicine [address] [place] [phone] Marry Hansen CRNP [address] [place] [address] [place] [address] 12/25/2023 2:00 PM EDT Office Visit Nephrology, [place] [address] [place] [address] Beckie Dunbar PA-C [address] [facility] [place] [address] Pending Results Name Type Priority Associated Diagnoses Date /Time CBC WITH WBC DIFFERENTIAL Lab STAT Anemia due to stage 3a chronic kidney disease (HCC) 09/30/2023 11:02 AM EST CBC Lab STAT Anemia due to stage 3a chronic kidney disease (HCC) 09/30/2023 11:02 AM EST DIFFERENTIAL, AUTOMATED Lab STAT Anemia due to stage 3a chronic kidney disease (HCC) 09/30/2023 11:02 AM EST Scheduled Procedures Name Priority Associated [...] Additional history exists CKD PHOS USE SMARTSET 51481 09/02/202408/13, 09/18/2022, 08/29/2021, Additional history exists CKD HGB USE SMARTSET 77605 09/16/202409/16, 09/16/2023, 09/02/2023, Additional history exists COLONOSCOPY-EVERY [...] this encounter Medical Devices Implanted Type Area Spinneret Person Device Identifier Shelf Expiration Date Model / Serial / Lot Envista Hydrophobic Acrylic Intraocular Lens Implanted:Qty: 1 on 12/25/2016 by Raul Neely MD at OR [facility] [address] Right: Eye [employer] 11/09/2018 [id number] / [id number] / [id number] Envista Mx60 +10.0 D Implanted:Qty: 1 on 01/29/2017 by Raul Neely MD at OR [facility] [address] Left: Eye 11/09/2018 [id number] / [id number] / [id number] documented as of this encounter Visit Diagnoses Diagnosis Anemia due to stage 3a chronic kidney disease (HCC) documented in [...] and were consensually agreed upon. Care Teams Insulation Engineman Relationship Specialty Start Date End Date Nancy Ryan DO [address] [place] [address] [place] [address] PCP - General Internal Medicine 09/11/18 documented as of this encounter
--- OUTSIDE RECORDS SUMMARY | 2023-11-13 21:29 | External Medical Summary | Summary of Care ---
Author Name Unknown Organization [facility] Address [address] [place] [address] Phone [phone] Care Team Providers Care Piece Work Inspector Name Role Phone Marlon Ibrahim DO Primary Care Provider [phone] Reason for Visit * Reason Onset Date Comments Home Health 09/25/2023 Encounter Details Date Type Department Care Team (Late st Contact Info) Description 09/25/2023 Telephone Family Medicine [address] [phone] Marlon Ibrahim DO [address] [place] [address] [place] [phone] Home Health Allergies No known active allergiesdocumented as of this encounter (statuses as of 10/01/2023) Medications Medication Sig Dispensed Refills Start Date End Date Status MULTIPLE VITAMIN PO TABS 1 TABLET DAILY 0 1 Active OMEGA-3 FISH OIL 1000 MG PO CAPS Take one capsule by mouth daily 0 1 Active Blood Glucose Monitoring Suppl (Rdio ULTRA SYSTEM) W/DEVICE KITIndications:DM type 2, goal A1c below 7 Use as directed 4 times a day. Use up to four times a day as directed. Diagnosis = E11.9 1 Kit 0 5 Active dorzolamide-timol ol (COSOPT OCUMETER PLUS) 2.23-0.68% [...] neuropathy, with long-term current use of insulin ([facility]),Type 2 diabetes mellitus with hemoglobin A1c goal [...] EVERY DAY 90 Tablet 3 3 Active Carvedilol 6.25 MG Oral Tablet (Coreg) TAKE 1 TABLET BY MOUTH TWICE A DAY WITH BREAKFAST AND DINNER 180 Tablet 3 3 Active OneTouch Verio In Vitro Strip (Glucose Blood) Use to test blood sugars twice a day. Dx. E11.9 300 Strip 1 3 Active OneTouch Delica Lancets 30GIndications:Ty pe 2 diabetes mellitus with diabetic neuropathy, with long-term current use of insulin ([facility]) Use TWICE a day to test glucose Diagnosis = E11.9 200 Each 3 3 Active Ozempic (2 MG/DOSE) 8 MG/3ML Subcutaneous Solution Pen-injector (Semaglutide (2 MG/DOSE))Indicati ons:Type 2 diabetes mellitus with diabetic neuropathy, with long-term current use of insulin ([facility]) Inject 2 mg under the skin once a week. DX E11.9 Diabetes Mellitus 3 mL 5 3 Active Allopurinol 100 MG Oral Tablet (Zyloprim)Indicat ions:Acute [...] the morning. 0 3 Active Epoetin Gautam-epbx 53393 UNIT/ML Injection Solution (Retacrit) Inject 2 mL [...] Solostar 100 UNIT/ML Subcutaneous Solution Pen-injector (Basaglradha Ashraf)Indicatio ns:Type 2 diabetes mellitus with diabetic neuropathy, with long-term current use of insulin ([facility]) Inject 20 Units under the skin in the morning. 0 4 Active Nitrofurantoin Monohyd Macro 100 MG Oral Capsule (Macrobid) Take 1 Capsule by mouth in the morning and 1 Capsule before bedtime. Do all this for 7 days. With food until gone. 14 Capsule 0 4 10/04/19 24 Active Omeprazole 40 MG Oral Capsule Delayed Release (PriLOSEC) Take 1 Capsule by mouth in the morning. 1 hour before the first meal of the day. 90 Capsule 3 4 Active Pantoprazole Sodium 40 MG Oral Tablet Delayed Release (Protonix) Take 1 Tablet by mouth in the morning. 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 Thank you for clarifying. * Telephone Encounter - Quita Curiel RN - 09/30/2023 4:03 PM EST Patient notified he should only use the Omeprazole, not Pantoprazole. Verbalizes understanding. * Telephone Encounter - Jayda Jeong DO - 09/30/2023 12:56 PM EST The patient only needs 1 PPI. Omeprazole 40 mg would be sufficient. * Telephone Encounter - Marlon Ibrahim DO [...] EST HH Concerns Bridgette BARNETT, Calling from: [facility] Report/Concerns of: Calling to follow up [...] or orders Please fax new orders to [phone] * Telephone Encounter - Roma Laura LPN - 09/25/2023 3:36 PM EST Bridgette (ERICKA, [facility]) make aware * Telephone Encounter - Britney Griffith LPN - 09/25/2023 3:23 PM EST I tried to call Bridgette. Faxed order to [facility]. I also called pt to make him aware- he states he will bring the urine sample in today. * Telephone Encounter - Marlon Ibrahim DO - 09/25/2023 1:53 PM EST UA/urine culture ordered. Okay to change wound dressing to their recommendation as listed below. Notify home health. * Telephone Encounter - Naga Nath LPN - 09/25/2023 12:32 PM EST See note below, please advise * Telephone Encounter - Najma Lugo LPN - 09/25/2023 11:53 AM EST HH Concerns Bridgette RN, Calling from: [facility] Report/Concerns of: wound discomfort Symptoms: stinging with aquacel Vitals: T 97 P 83 RR 18 BP 128/78 SP O2 98 Lung sounds clear Weight n/a Blood sugar 166 Narrative: Bridgette, calling from [facility]. Since the aquacel stings on the patients [...] Bridgette with any advice or orders at [phone] Please fax new orders to [phone] documented in this encounter Plan of Treatment Upcoming Encounters Date Type Department Care Team (Late st Contact Info) Description 10/01/2023 1:00 PM EST Immunization/Inje ction Hematology/Oncology Treatment, [place] [address] [place] [phone] Nurse, Med [address] [place] [address] [place] [address] 10/15/2023 1:45 PM EST Office Visit Hematology/Oncology [facility] [address] [place] [phone] Fly Velazquez MD [address] [place] [address] 10/23/2023 10:00 AM EDT Office Visit Sleep Disorders [facility] [address] [facility] [place] [phone] Dorothy Toscano CRNP [address] [place] [address] 10/24/2023 2:00 PM EDT Office Visit Ophthalmology, [facility] [address] [place] [address] Mika Diaz DO [address] [place] [address] 12/20/2023 11:40 AM EDT Office Visit Family Medicine [address] [place] [phone] Marry Hansen [address] [place] [address] 12/25/2023 2:00 PM EDT Office Visit Nephrology, [place] [address] [facility] [address] [place] [address] Zemaitis, Beckie Tucker PA-C [address] [place] [address] Scheduled Procedures Name Priority Associated Diagnoses Date/Ti [...] Additional history exists CKD PHOS USE SMARTSET 80894 09/02/202408/13, 09/18/2022, 08/29/2021, Additional history exists CKD HGB USE SMARTSET 97168 09/30/202409/30, 09/30/2023, 09/16/2023, Additional history exists COLONOSCOPY-EVERY [...] this encounter Medical Devices Implanted Type Area Platform Mill Supervisor Device Identifier Shelf Expiration Date Model / Serial / Lot Envista Hydrophobic Acrylic Intraocular Lens Implanted:Qty: 1 on 12/25/2016 by Raul Neely MD at OR [facility] Right: Eye [employer]OM[employer] 11/09/2018 [id number] / [id number] / [id number] Envista Mx60 +10.0 D Implanted:Qty: 1 on 01/29/2017 by Raul Neely MD at OR [facility] Left: Eye 11/09/2018 [id number] / [id number] / [id number] documented as of this encounter Results * (ABNORMAL) CULTURE, URINE, QUANTITATIVE (09/25/2023 4:07 PM EST) Culture Growth >100,000 colonies/mL Escherichia coli(A) MICROBROTH DILUTIONS 09/27/2023 7:27 AM EST [facility]ORY [facility] Urine Urine specimen obtained by clean catch procedure / Unknown Non-blood Collection / Unknown 09/25/2023 4:07 PM EST 09/25/2023 4:[address] [facility] LAB[facility]AT[facility] - [...] Trimeth/Sulfamethoxazole MICROBROTH D ILUTIONS <=20: Susceptible Marlon Muro Shelby DO LAB MICRO - GENERAL ORDERABLES LAB[facility]ATORY [facility] [address] [place] [address] * (ABNORMAL) URINALYSIS, REFLEX TO MICROSCOPIC (09/25/2023 4:07 PM EST) Color, Urine Yellow Colorless, Light Yellow, Yellow, Dark Yellow 09/25/2023 10:58 PM EST [facility] Clarity, Urine Cloudy(A) Clear 09/25/2023 10:58 PM EST [facility] Glucose, Urine Negative Negative mg/dL 09/25/2023 10:58 PM EST [facility] Bilirubin, Urine Negative Negative 09/25/2023 10:58 PM EST [facility] Ketone, Urine Negative Negative mg/dL 09/25/2023 10:58 PM EST LABORATORY GM Specific Cofield, Urine 1.011 1.003 - 1.030 09/25/2023 10:58 PM EST [facility] Blood, Urine Small(A) Negative 09/25/2023 10:58 PM EST [facility] pH, Urine 6.0 5.0 - 7.5 Units 09/25/2023 10:58 PM EST [facility] Protein, Urine Trace(A) Negative mg/dL 09/25/2023 10:58 PM EST [facility] Urobilinogen, Urine Normal Normal mg/dL 09/25/2023 10:58 PM EST [facility] Nitrite, Urine Negative Negative 09/25/2023 10:58 PM EST [facility] Esterase, Urine Large(A) Negative 09/25/2023 10:58 PM EST [facility] RBC, Urine 10-19(A) 0 - 2 /HPF 09/25/2023 10:58 PM EST [facility] WBC, Urine 50+(A) 0 - 2 /HPF 09/25/2023 10:58 PM EST [facility] Bacteria, Urine 151-200(A) 0 - 25 /HPF 09/25/2023 10:58 PM EST [facility] Hyaline, Cast, Urine 5-9(A) None /LPF 09/25/2023 10:58 PM EST [facility] WBC Clumps, Urine Present(A) None /HPF 09/25/2023 10:58 PM EST [facility] Urine Urine specimen obtained by clean catch procedure / Unknown Non-blood Collection / Unknown 09/25/2023 4:07 PM EST 09/25/2023 4:07 PM EST Marlonraheem Lunalalo Ibrahim DO LAB URINE ORDERABLES Performing Organization Address City/State/[facility] Co de Phone Number [facility] [address], [place] [phone] documented in this encounter Visit Diagnoses Diagnosis [...] and were consensually agreed upon. Care Teams Piece Work Inspector Relationship Specialty Start Date End Date Marlon Ibrahim DO [address] [place] [address] [place] [phone] PCP - General Internal Medicine 09/11/18 documented as of this encounter
--- OUTSIDE RECORDS SUMMARY | 2023-11-13 21:29 | External Medical Summary ---
Author Name Unknown Address Unknown Organization K01:LABORATORY [facility] - [address] [facility] [address] Laboratory Report Ordering Provider Test Date Status JANE WOODRUFF 09/30/2023 11:02:49 Final Observation Date Value Abnormality Reference (Units ) Status SYNC LEUKOCYTES IN BLOOD BY AUTOMATED COUNT 09/30/2023 11:02:49 6.90 4.00-10.80 (K/uL) Final Segs 09/30/2023 11:02:49 61.7 40.0-75.0 (%) Final Lymphs % 09/30/2023 11:02:49 19.9 18.0-42.0 (%) Final Monos 09/30/2023 11:02:49 11.6 Above high normal 1.0-11.0 (%) Final Eosinophils 09/30/2023 11:02:49 5.7 0.0-6.0 (%) Final Basos 09/30/2023 11:02:49 0.7 0.0-2.0 (%) Final Immature Granulocyte, Percent 09/30/2023 11:02:49 0.4 0.0-2.0 (%) Final Absolute Segs 09/30/2023 11:02:49 4.26 1.80-7.70 (K/uL) Final Lymphs, absolute 09/30/2023 11:02:49 1.37 1.00-4.80 (K/ul) Final Monos, Abs 09/30/2023 11:02:49 0.80 0.00-1.10 (K/uL) Final Eos, Abs 09/30/2023 11:02:49 0.39 0.00-0.70 (K/uL) Final Basos, Abs 09/30/2023 11:02:49 0.05 0.00-0.20 (K/uL) Final Immature Granulocytes, Number 09/30/2023 11:02:49 0.03 0.00-0.20 (K/uL) Final Performing Location LABORATORY [facility] - [address] [facility] [address]
--- OUTSIDE RECORDS SUMMARY | 2023-11-13 21:29 | External Medical Summary | Summary of Care ---
Author Name Unknown Organization [facility] Address [address] [place] [address] Phone [phone] Care Team Providers Care Film Recordist Name Role Phone Marlon Ibrahim DO Primary Care Provider Reason for Visit * Reason Onset Date Comments Home Health 09/25/2023 Encounter Details Date Type Department Care Team (Late st Contact Info) Description 09/25/2023 Telephone Family Medicine [address] [address] Marlon Ibrahim DO [address] [place] [address] [place] [address] Home Health Allergies No known active allergiesdocumented as of this encounter (statuses as of 09/30/2023) Medications Medication Sig Dispensed Refills Start Date End Date Status MULTIPLE VITAMIN PO TABS 1 TABLET DAILY 0 07/03/2011 Active OMEGA-3 FISH OIL 1000 MG PO CAPS Take one capsule by mouth daily 0 07/03/2011 Active Blood Glucose Monitoring Suppl (NextGame ULTRA SYSTEM) W/DEVICE KITIndications:DM type 2, goal [...] the morning. 0 06/04/2023 Active Epoetin Gautam-epbx 35082 UNIT/ML Injection Solution (Retacrit) Inject 2 mL [...] Non-obstructive. Noted on CT scan at [facility] 05/2019 Mild nonproliferative diabet ic retinopathy of [...] Obesity Taxonomy 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 of inactive term FDC current use of ant icoagulant therapy 03/16/2005 [...] mRNA, LNP-s, No Pre serve, 2-Dose Series (nprogress) 06/20/2021,10/22/2020,09/26/2020 COVID-19, LNP-s, No Preserve , Jamie-sucrose, Ages 12+ (nprogress) 03/13/2022 Covid-19, Mrna, Lnp-s, Pf, B ivalent, 30 Mcg, IM, 12 yrs and above (Pfizer) 09/20/2022 Pneumococcal Conjugate Vacci ne, 20-valent ([id number]) 03/14/2022 Pneumococcal Polysaccharide PPV23 (Pneumovax) 03/19/2006 Seasonal [...] take both pantoprazole and Omep[facility]. [facility] [...] EST HH Concerns Bridgette BARNETT, Calling from: [facility] Report/Concerns of: Calling to follow up on [...] or orders Please fax new orders to [phone] * Telephone Encounter - Roma Laura LPN - 09/25/2023 3:36 PM EST Bridgette (ERICKA, [facility]) make aware * Telephone Encounter - Britney Griffith LPN - 09/25/2023 3:23 PM EST I tried to call Bridgette. Faxed order to [facility]. I also called pt to make him [...] EST HH Concerns Bridgette RN, Calling from: [facility] Report/Concerns of: wound discomfort Symptoms: stinging with aquacel Vitals: T 97 P 83 RR 18 BP 128/78 SP O2 98 Lung sounds clear Weight n/a Blood sugar 166 Narrative: Bridgette, calling from [facility]. Since the aquacel stings on the [...] Bridgette with any advice or orders at [phone] Please fax new orders to [phone] documented in this encounter Plan of Treatment Upcoming Encounters Date Type Department Care Team (Late st Contact Info) Description 10/01/2023 9:00 AM EST Office Visit Cardiology [address] [place] [address] Prabhakar Henning PA-C [address] [place] [address] 10/01/2023 1:00 PM EST Immunization/Inje ction Hematology/Oncology Treatment, [place] [address] [facility] [place] [phone] Nurse, Med 4 [address] [facility] [place] [address] 10/15/2023 1:45 PM EST Office Visit Hematology/Oncology [facility] [address] [place] [phone] Fly Velazquez MD [address] [facility] [place] [address] 10/23/2023 10:00 AM EDT Office Visit Sleep Disorders [facility] [address] [facility] [place] [phone] Dorothy Toscano CRNP [address] [place] [address] 10/24/2023 2:00 PM EDT Office Visit Ophthalmology, [facility] [place] [address] Mika Diaz DO [address] [place] [address] 12/20/2023 11:40 AM EDT Office Visit Family Medicine [address] [phone] Marry Hansen CRNP [address] [place] [address] [place] [address] 12/25/2023 2:00 PM EDT Office Visit Nephrology, [facility] [address] [facility] [place] [address] Beckie Dunbar PA-C [address] [facility] [place] [address] Scheduled Procedures Name Priority Associated Diagnoses Date/Ti [...] Additional history exists CKD PHOS USE SMARTSET 91475 09/02/202408/13, 09/18/2022, 08/29/2021, Additional history exists CKD HGB USE SMARTSET 38757 09/16/202409/16, 09/16/2023, 09/02/2023, Additional history exists COLONOSCOPY-EVERY [...] this encounter Medical Devices Implanted Type Area Aoc Director Intelligence Officer Device Identifier Shelf Expiration Date Model / Serial / Lot Envista Hydrophobic Acrylic Intraocular Lens Implanted:Qty: 1 on 12/25/2016 by Raul Neely MD at OR [facility] Right: Eye [employer]OM[employer] 11/09/2018 [id number] / [id number] / [id number] Envista Mx60 +10.0 D Implanted:Qty: 1 on 01/29/2017 by Raul Neely MD at OR [facility] Left: Eye 11/09/2018 [id number] / [id number] / [id number] documented as of this encounter Results * (ABNORMAL) CULTURE, URINE, QUANTITATIVE (09/25/2023 4:07 PM EST) Culture Growth >100,000 colonies/mL Escherichia coli(A) MICROBROTH DILUTIONS 09/27/2023 7:27 AM EST LAB[facility]ORY [facility] Urine Urine specimen obtained by clean catch procedure / Unknown Non-blood Collection / Unknown 09/25/2023 4:07 PM EST 09/25/2023 4:07 PM EST Narrative [facility]ORY [facility] - 09/27/2023 7:27 AM EST [...] Trimeth/Sulfamethoxazole MICROBROTH D ILUTIONS <=20: Susceptible Marlon Jina Ibrahim DO LAB MICRO - GENERAL ORDERABLES [facility] [address] [place] [address] * (ABNORMAL) URINALYSIS, REFLEX TO MICROSCOPIC (09/25/2023 4:07 PM EST) Color, Urine Yellow Colorless, Light Yellow, Yellow, Dark Yellow 09/25/2023 10:58 PM EST [facility] Clarity, Urine Cloudy(A) Clear 09/25/2023 10:58 PM EST [facility] Glucose, Urine Negative Negative mg/dL 09/25/2023 10:58 PM EST [facility] Bilirubin, Urine Negative Negative 09/25/2023 10:58 PM EST [facility] Ketone, Urine Negative Negative mg/dL 09/25/2023 10:58 PM EST LABORATORY C Specific Star, Urine 1.011 1.003 - 1.030 09/25/2023 10:58 PM EST LABORATORY C Blood, Urine Small(A) Negative 09/25/2023 10:58 PM EST [facility] pH, Urine 6.0 5.0 - 7.5 Units [...] Marlon Ibrahim DO LAB URINE ORDERABLES [facility] [address] [place] [address] documented in this encounter Visit Diagnoses Diagnosis [...] and were consensually agreed upon. Care Teams Film Recordist Relationship Specialty Start Date End Date Marlon Ibrahim DO [address] [place] [address] [place] [phone] PCP - General Internal Medicine 09/11/18 documented as of this encounter
--- OUTSIDE RECORDS SUMMARY | 2023-11-13 21:29 | External Medical Summary | Summary of Care ---
Author Name Unknown Organization [facility] Address [address] [place] [address] Phone [phone] Care Team Providers Care Softball Player Name Role Phone RyanNancy martinez Primary Care Provider Reason for Visit * Reason Onset Date Comments Medication Pre-auth 07/25/2023 Procrit Encounter Details Date Type Department Care Team (Late st Contact Info) Description 07/25/2023 Telephone Hematology/Oncology [place] [address] [place] [address] Fly Velazquez MD [address] [place] [address] Medication Pre-auth (Procrit) Allergies No known active allergiesdocumented as of this encounter (statuses as of 10/01/2023) Medications Medication Sig Dispensed Refills Start Date End Date Status MULTIPLE VITAMIN PO TABS 1 TABLET DAILY 0 07/03/20 11 Active OMEGA-3 FISH OIL 1000 MG PO CAPS Take one capsule by mouth daily 0 07/03/20 11 Active Blood Glucose Monitoring Suppl (ArthaYantra ULTRA SYSTEM) W/DEVICE KITIndications:DM type 2, goal A1c below 7 Use as directed 4 times a day. Use up to four times a day as directed. Diagnosis = E11.9 1 Kit 0 06/29/20 15 Active dorzolamide-timol ol (COSOPT OCUMETER PLUS) 2.23-0.68% [...] neuropathy, with long-term current use of insulin ([facility]),Type 2 diabetes mellitus with hemoglobin A1c goal of less than 7.0% ([facility]) Use once a day with basaglar. DX [...] 1 03/13/20 23 Active OneTouch Delica Lancets 30GIndications:Ty pe 2 diabetes mellitus with diabetic neuropathy, with long-term current use of insulin ([facility]) Use TWICE a day to test glucose Diagnosis = E11.9 200 Each 3 03/19/20 23 Active Ozempic (2 MG/DOSE) 8 MG/3ML Subcutaneous Solution Pen-injector (Semaglutide (2 MG/DOSE))Indicati ons:Type 2 diabetes mellitus with diabetic neuropathy, with long-term current use of insulin ([facility]) Inject 2 mg under the skin once a week. DX E11.9 Diabetes Mellitus 3 mL 5 03/26/20 23 Active Allopurinol 100 MG Oral Tablet (Zyloprim)Indicat [...] and evening meals. 180 Tablet 3 05/17/20 Active Losartan Potassium 50 MG Oral Tablet (Cozaar) Take 0.5 Tablets by mouth in the morning. 0 06/04/20 Active Epoetin Gautam-epbx 90115 UNIT/ML Injection Solution (Retacrit) Inject 2 mL intravenously once. Every two weeks 0 Active Torsemide 20 MG Oral Tablet (Demadex) Take 1 Tablet by mouth in the morning. 90 Tablet 3 06/28/20 Active Vitamin D3 125 MCG (5000 UT) Oral Tablet Chewable Take by mouth. 0 Active Warfarin Sodium 5 MG Oral Tablet (Coumadin)Indicat ions:History of DVT (deep vein thrombosis),Antic oagulation management encounter,terminal block assembler current use of anticoagulant therapy Take 5 mg (1 tablet)by mouth daily or as directed by anticoagulation clinic 100 Tablet 3 10/16/19 23 024 Discontinued(Wa dication List Clean Up) Insulin Glargine Solostar 100 UNIT/ML Subcutaneous Solution Pen-injector (Flavia Ashraf)Indicatio ns:Type 2 diabetes mellitus with diabetic neuropathy, with long-term current use of insulin ([facility]) Inject 48 Units under the skin in the morning. 45 mL 3 02/28/20 23 024 Discontinued(Re fill) Acetic Acid 0.25 % Irrigation Solution Apply to legs as directed by the wound clinic. 1000 mL 2 03/01/20 23 024 Discontinued Atorvastatin Calcium 20 MG Oral Tablet (Lipitor)Indicati ons:Dyslipidemia, goal LDL below 70 TAKE 1 TABLET BY MOUTH EVERY DAY IN THE MORNING 90 Tablet 0 05/09/20 23 024 Discontinued(Re fill) Sodium Bicarbonate 650 MG Oral Tablet Take 2 Tablets by mouth in the morning and 2 Tablets at noon and 2 Tablets in the evening and 2 Tablets before bedtime. 60 Tablet 5 06/04/20 23 024 Discontinued Chlorthalidone 25 MG Oral Tablet (Hygroton) Take 1 Tablet by mouth in the morning. 0 023 Discontinued(Re fill) Hospital, Clinic, or Other Facility [...] Active Problems Problem Noted Date Diagnosed Date Anemia due to stage 3a chronic kidney [...] Non-obstructive. 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 current use of ant icoagulant therapy 03/16/2005 [...] mRNA, LNP-s, No Pre serve, 2-Dose Series ([employer]) 06/20/2021,10/22/2020,09/26/2020 COVID-19, LNP-s, No Preserve , Jamie-sucrose, Ages 12+ (Pfizer) 03/13/2022 Covid-19, Mrna, Lnp-s, Pf, B ivalent, 30 Mcg, IM, 12 yrs and above (Pfizer) 09/20/2022 Pneumococcal Conjugate Vacci ne, 20-valent ([id number]) 03/14/2022 Pneumococcal Polysaccharide PPV23 (Pneumovax) 03/19/2006 Seasonal [...] encounter Miscellaneous Notes * Telephone Encounter - Maggie Cabral RN - 07/25/2023 5:18 PM EST Referral is marked as auth, per referral note: " Precert 07/24/2023 8:00 AM Danielle Landers OSA "[place] DO to HOP transition, patient carries coverage where enrollment is NOT completed with payor. Patient care should not be delayed. Continue with service as approved although pre-certification was not obtained. Retro will be completed, orenrol - Note: "[place] DO to HOP transition, patient carries coverage where enrollment is NOT completed withpayor. Patient care should not be delayed. Continue with service as approved although pre-certification was not obtained. Retro will be completed, or enrollment adjustment will be completed and patient will not be liable." AUTH END DATE HAS BEEN EXTENDED TO 12/23/23 UNTIL ISSUE IS RESOLVED" * Telephone Encounter - Celsa Patiño RN - 07/25/2023 4:41 PM EST Patient is scheduled for procrit on 07/30/2023, ordered by Dr lFy Velazquez. Precert referral has . Precert: please obtain new precert and enter referral. Ordering providers office: if precert referral is not back by 3pm the business day prior to treatment, appointment will need to be cancelled and rescheduled once referral is entered. Thanks! documented in this encounter Plan of Treatment Upcoming Encounters Date Type Department Care Team (Late st Contact Info) Description 10/01/2023 1:00 PM EST Immunization/Inje ction Hematology/Oncology Treatment, [address] [place] [address] Nurse, Med [address] [place] [address] [place] [address] 10/15/2023 1:45 PM EST Office Visit Hematology/Oncology [address] [place] [phone] Fly Velazquez MD 200 [facility] [place] [address] 10/23/2023 10:00 AM EDT Office Visit Sleep Disorders Ctr [facility] [address] [place] [address] Dorothy Toscano CRNP [address] [place] [address] 10/24/2023 2:00 PM EDT Office Visit Ophthalmology, [facility] [address] [place] [address] Mika Diaz DO [address] [place] [address] 12/20/2023 11:40 AM EDT Office Visit Family Medicine [address] [place] [phone] Marry Hansen [address] [address] 12/25/2023 2:00 PM EDT Office Visit Nephrology, [place] [address] [place] [address] [address] Zemaitis, Beckie Tucker PA-C [facility] [place] [address] Scheduled Procedures Name Priority Associated Diagnoses Date/Ti [...] Additional history exists CKD PHOS USE SMARTSET 49101 09/02/202408/13, 09/18/2022, 08/29/2021, Additional history exists CKD HGB USE SMARTSET 38494 09/30/202409/30, 09/30/2023, 09/16/2023, Additional history exists COLONOSCOPY-EVERY [...] this encounter Medical Devices Implanted Type Area Manager Telemarketing Device Identifier Shelf Expiration Date Model / Serial / Lot Envista Hydrophobic Acrylic Intraocular Lens Implanted:Qty: 1 on 12/25/2016 by Raul Neely MD at OR [facility] Right: Eye [employer] 11/09/2018 [id number] / [id number] / [id number] Envista Mx60 +10.0 D Implanted:Qty: 1 on 01/29/2017 by Raul Neely MD at OR [facility] Left: Eye 11/09/2018 [id number] / [id number] / [id number] documented as of this encounter Advance Directives [...] and were consensually agreed upon. Care Teams Softball Player Relationship Specialty Start Date End Date Nancy Ryan DO [address] [place] [address] [place] [address] PCP - General Internal Medicine 09/11/18 documented as of this encounter
--- OUTSIDE RECORDS SUMMARY | 2023-11-13 21:29 | External Medical Summary | Summary of Care ---
Author Name Unknown Organization [facility] Address [address] [place] [address] Phone [phone] Care Team Providers Care Evp Business Development Name Role Phone Nancy Ryan DO Primary Care Provider Reason for Visit * Reason Onset Date Comments Home Health 10/01/2023 Encounter Details Date Type Department Care Team (Late st Contact Info) Description 10/01/2023 Telephone Family Medicine [address] [address] Nancy Ryan DO [address] [place] [address] [place] [address] Home Health Allergies No known active allergiesdocumented as of this encounter (statuses as of 10/01/2023) Medications Medication Sig Dispensed Refills Start Date End Date Status MULTIPLE VITAMIN PO TABS 1 TABLET DAILY 0 07/03/2011 Active OMEGA-3 FISH OIL 1000 MG PO CAPS Take one capsule by mouth daily 0 07/03/2011 Active Blood Glucose Monitoring Suppl (P[employer] ULTRA SYSTEM) W/DEVICE KITIndications:DM type 2, goal [...] neuropathy, with long-term current use of insulin ([facility]),Type 2 diabetes mellitus with [...] neuropathy, with long-term current use of insulin ([facility]) Use TWICE a day to test glucose Diagnosis = E11.9 200 Each 3 03/19/2023 Active Ozempic (2 MG/DOSE) 8 MG/3ML Subcutaneous Solution Pen-injector (Semaglutide (2 MG/DOSE))Indicatio ns:Type 2 diabetes mellitus with diabetic neuropathy, with long-term current use of insulin ([facility]) Inject 2 mg under [...] the morning. 0 06/04/2023 Active Epoetin Gautam-epbx 10061 UNIT/ML Injection Solution (Retacrit) Inject 2 mL [...] neuropathy, with long-term current use of insulin ([facility]) Inject 20 Units under [...] Overview: Non-obstructive. Noted on CT scan at [facility] 05/2019 Mild nonproliferative diabet ic retinopathy [...] mRNA, LNP-s, No Pre serve, 2-Dose Series ([employer]) 06/20/2021,10/22/2020,09/26/2020 COVID-19, LNP-s, No Preserve , Jamie-sucrose, Ages 12+ ([employer]) 03/13/2022 Covid-19, Mrna, Lnp-s, Pf, B ivalent, 30 Mcg, IM, 12 yrs and above (Pfizer) 09/20/2022 Pneumococcal Conjugate Vacci ne, 20-valent ([id number]) 03/14/2022 Pneumococcal Polysaccharide PPV23 (Pneumovax) 03/19/2006 Seasonal [...] encounter Miscellaneous Notes * Telephone Encounter - Najma Lugo LPN - 10/01/2023 2:48 PM EST Lisa calling from [facility]. Wanted to know if the patient was ordered an antibiotic. Informed they were ordered macrobid 100 mg twice a day for 7 days. Verbalized understanding. documented in this encounter Plan of Treatment Upcoming Encounters Date Type Department Care Team (Late st Contact Info) Description 10/14/2023 9:30 AM EST Laboratory Laboratory [address] [place] [phone] [place] [address] 10/15/2023 1:45 PM EST Office Visit Hematology/Oncology [address] [place] [phone] [facility] [address] [facility] [address] 10/15/2023 2:15 PM EST Immunization/Injecti on Hematology/Oncology Treatment, [place] [address] [facility] [address] [place] [phone] Nurse, Med [address] [facility] [address] 10/23/2023 10:00 AM EDT Office Visit Sleep Disorders Ctr [facility] [address] [place] [phone] Dorothy Toscano CRNP [address] [place] [address] 10/24/2023 2:00 PM EDT Office Visit Ophthalmology, [facility] [address] [place] [address] Mika Diaz DO [address] [place] [address] 12/20/2023 11:40 AM EDT Office Visit Family Medicine [address] [place] [address] Marry Hansen [address] [place] [address] 12/25/2023 2:00 PM EDT Office Visit Nephrology, [place] [address] [facility] [place] [address] Zemaitis, Beckie Tucker PA-C [address] [facility] [address] [place] [address] Scheduled Procedures Name Priority Associated Diagnoses Date/Ti [...] Additional history exists CKD PHOS USE SMARTSET 39710 09/02/202408/13, 09/18/2022, 08/29/2021, Additional history exists CKD HGB USE SMARTSET 20571 09/30/202409/30, 09/30/2023, 09/16/2023, Additional history exists COLONOSCOPY-EVERY [...] encounter Medical Devices Implanted Type Area Supervisor [employer] Device Identifier Shelf Expiration Date Model / Serial / Lot Envista Hydrophobic Acrylic Intraocular Lens Implanted:Qty: 1 on 12/25/2016 by Raul Neely MD at OR [facility] Right: Eye [employer] 11/09/2018 [id number] / [id number] / [id number] Envista Mx60 +10.0 D Implanted:Qty: 1 on 01/29/2017 by Raul Neely MD at OR [facility] Left: Eye 11/09/2018 [id number] / [id number] / [id number] documented as of this encounter Advance Directives [...] and were consensually agreed upon. Care Teams Evp Business Development Relationship Specialty Start Date End Date Nancy Ryan DO [address] [place] [address] [place] [address] PCP - General Internal Medicine 09/11/18 documented as of this encounter
--- OUTSIDE RECORDS SUMMARY | 2023-11-13 21:29 | External Medical Summary | Summary of Care ---
Author Name Unknown Organization [facility] Address [address] [place] [address] Phone [phone] Care Team Providers Care Therapeutic Recreation Leader Name Role Phone Marlon Ibrahim DO Primary Care Provider [phone] Reason for Visit * Reason Onset Date Comments Home Health 09/25/2023 Encounter Details Date Type Department Care Team (Late st Contact Info) Description 09/25/2023 Telephone Family Medicine [address] [phone] Marlon Ibrahim DO [address] [place] [address] [place] [address] Home Health Allergies No known active allergiesdocumented as of this encounter (statuses as of 09/30/2023) Medications Medication Sig Dispensed Refills Start Date End Date Status MULTIPLE VITAMIN PO TABS 1 TABLET DAILY 0 07/03/2011 Active OMEGA-3 FISH OIL 1000 MG PO CAPS Take one capsule by mouth daily 0 07/03/2011 Active Blood Glucose Monitoring Suppl (Painting [employer] A [employer]ist ULTRA SYSTEM) W/DEVICE KITIndications:DM type 2, goal [...] neuropathy, with long-term current use of insulin ([facility]),Type 2 diabetes mellitus with hemoglobin A1c [...] neuropathy, with long-term current use of insulin ([facility]) Use TWICE a day to test glucose Diagnosis = E11.9 200 Each 3 03/19/2023 Active Ozempic (2 MG/DOSE) 8 MG/3ML Subcutaneous Solution Pen-injector (Semaglutide (2 MG/DOSE))Indicatio ns:Type 2 diabetes mellitus with diabetic neuropathy, with long-term current use of insulin ([facility]) Inject 2 mg under the skin [...] the morning. 0 06/04/2023 Active Epoetin Gautam-epbx 64751 UNIT/ML Injection Solution (Retacrit) Inject 2 mL [...] neuropathy, with long-term current use of insulin ([facility]) Inject 20 Units under the skin [...] Non-obstructive. Noted on CT scan at [facility] 05/2019 Mild nonproliferative diabet ic retinopathy [...] Obesity Taxonomy 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 of inactive term retirement current use of ant icoagulant therapy 03/16/2005 [...] LNP-s, No Pre serve, 2-Dose Series ([employer]) 06/20/2021,10/22/2020,09/26/2020 COVID-19, LNP-s, No Preserve , Jamie-sucrose, Ages 12+ ([employer]) 03/13/2022 Covid-19, Mrna, Lnp-s, Pf, B ivalent, 30 Mcg, IM, 12 yrs and above (Pfizer) 09/20/2022 Pneumococcal Conjugate Vacci ne, 20-valent ([id number]) 03/14/2022 Pneumococcal Polysaccharide PPV23 (Pneumovax) 03/19/2006 Seasonal [...] EST HH Concerns Bridgette BARNETT, Calling from: [facility] Report/Concerns of: Calling to follow up on [...] or orders Please fax new orders to [phone] * Telephone Encounter - Roma Laura LPN - 09/25/2023 3:36 PM EST Bridgette (ERICKA, [facility]) make aware * Telephone Encounter - Britney Griffith LPN - 09/25/2023 3:23 PM EST I tried to call Bridgette. Faxed order to [facility]. I also called pt to make [...] EST HH Concerns Bridgette RN, Calling from: [facility] Report/Concerns of: wound discomfort Symptoms: stinging with aquacel Vitals: T 97 P 83 RR 18 BP 128/78 SP O2 98 Lung sounds clear Weight n/a Blood sugar 166 Narrative: Bridgette, calling from [facility]. Since the aquacel stings on the [...] Bridgette with any advice or orders at [phone] Please fax new orders to [phone] documented in this encounter Plan of Treatment Upcoming Encounters Date Type Department Care Team (Late st Contact Info) Description 10/01/2023 9:00 AM EST Office Visit Cardiology [address] [place] [address] Prabhakar Henning PA-C [address] [place] [address] 10/01/2023 1:00 PM EST Immunization/Inje ction Hematology/Oncology Treatment, [place] [address] [place] [address] Nurse, Med [address] [place] [address] 10/15/2023 1:45 PM EST Office Visit Hematology/Oncology [facility] [place] [address] [facility] [place] [phone] Fly Velazquez MD [address] [facility] [place] [address] 10/23/2023 10:00 AM EDT Office Visit Sleep Disorders Ctr [facility] [address] [place] [phone] Dorothy Toscano CRNP [address] [place] [address] 10/24/2023 2:00 PM EDT Office Visit Ophthalmology, [facility] [address] [facility] [place] [address] Mika Diaz DO [address] [place] [address] 12/20/2023 11:40 AM EDT Office Visit Family Medicine [address] [phone] Marry Hansen [address] [address] 12/25/2023 2:00 PM EDT Office Visit Nephrology, [facility] [address] [facility] [place] [address] [address] ZemaitisBeckie PA-C [address] [facility] [place] [address] Scheduled Procedures Name Priority Associated Diagnoses Date/Ti [...] Additional history exists CKD PHOS USE SMARTSET 94965 09/02/202408/13, 09/18/2022, 08/29/2021, Additional history exists CKD HGB USE SMARTSET 93769 09/16/202409/16, 09/16/2023, 09/02/2023, Additional history exists COLONOSCOPY-EVERY [...] this encounter Medical Devices Implanted Type Area Box Closing Machine Operator Device Identifier Shelf Expiration Date Model / Serial / Lot Envista Hydrophobic Acrylic Intraocular Lens Implanted:Qty: 1 on 12/25/2016 by Raul Neely MD at OR [facility] Right: Eye [employer] 11/09/2018 [id number] / [id number] / [id number] Envista Mx60 +10.0 D Implanted:Qty: 1 on 01/29/2017 by Raul Neely MD at OR [facility] Left: Eye 11/09/2018 [id number] / [id number] / [id number] documented as of this encounter Results * (ABNORMAL) CULTURE, URINE, QUANTITATIVE (09/25/2023 4:07 PM EST) Pathologist [facility] Culture Growth >100,000 colonies/mL Escherichia coli(A) MICROBROTH DILUTIONS 09/27/2023 7:27 AM EST LABORATORY [facility] Urine Urine specimen obtained by clean catch procedure / Unknown Non-blood Collection / Unknown 09/25/2023 4:07 PM EST 09/25/2023 4:07 PM EST [facility] LAB[facility]ATORY [facility] - 09/27/2023 7:27 AM EST <10,000 colonies/ml [...] DO LAB MICRO - GENERAL ORDERABLES LABORATORY [facility] [address] [place] [address] * (ABNORMAL) URINALYSIS, REFLEX TO [...] 09/25/2023 10:58 PM EST LABORATORY C Specific [place], Urine 1.011 1.003 - 1.030 09/25/2023 10:58 PM EST LABORATORY [facility] Blood, Urine Small(A) Negative 09/25/2023 10:58 PM EST LAB[facility]ATORY [facility] pH, Urine 6.0 5.0 - 7.5 Units 09/25/2023 10:58 PM EST LAB[facility]AT[facility] Protein, Urine Trace(A) Negative mg/dL 09/25/2023 10:58 PM EST LABORATORY [facility] Urobilinogen, Urine Normal Normal mg/dL 09/25/2023 10:58 [...] DO LAB URINE ORDERABLES LAB[facility]ATORY [facility] [address] [place] [address] documented in this encounter Visit Diagnoses Diagnosis [...] and were consensually agreed upon. Care Teams Therapeutic Recreation Leader Relationship Specialty Start Date End Date Marlon Ibrahmi DO [address] [place] [address] [place] [address] PCP - General Internal Medicine 09/11/18 documented as of this encounter
--- OUTSIDE RECORDS SUMMARY | 2023-11-13 21:30 | External Medical Summary ---
Author Name Unknown Address Unknown Organization : Laboratory Report Ordering Provider Test Date Status UTE [place] 09/26/2023 09:59:00 Final Observation Date Value Abnormality Reference (Units ) Status Gastrin 09/26/2023 09:59:00 21 <=100 (pg/ mL) Final Reference range applies to f asting specimens only.
For additional information, please refer to
[email or web address]
(This link is being provided for informational/
educational purposes only.)

Test Performed at:
[facility]
[address] [facility]
[place] [address]
Yao Andino M.D., Ph.D.,Director of Laboratories Performing Location
--- OUTSIDE RECORDS SUMMARY | 2023-11-13 21:30 | External Medical Summary | Summary of Care ---
Author Name Unknown Organization [facility] Address [address] [place] [address] Phone [phone] Care Team Providers Care Test Boring Crew Chief Name Role Phone Marlon Ibrahim DO Primary Care Provider Reason for Visit * Reason Onset Date Comments Home Health 09/25/2023 Encounter Details Date Type Department Care Team (Late st Contact Info) Description 09/25/2023 Telephone Family Medicine [address] [phone] Marlon Ibrahim DO [address] [place] [address] [place] [address] Home Health Allergies No known active allergiesdocumented as of this encounter (statuses as of 09/27/2023) Medications Medication Sig Dispensed Refills Start Date End Date Status MULTIPLE VITAMIN PO TABS 1 TABLET DAILY 0 07/03/2011 Active OMEGA-3 FISH OIL 1000 MG PO CAPS Take one capsule by mouth daily 0 07/03/2011 Active Blood Glucose Monitoring Suppl (RedHelper ULTRA SYSTEM) W/DEVICE KITIndications:DM type 2, goal [...] current use of insulin ([facility]),Type 2 diabetes mellitus with hemoglobin A1c [...] current use of insulin ([facility]) Use TWICE a day to test glucose Diagnosis = E11.9 200 Each 3 03/19/2023 Active Ozempic (2 MG/DOSE) 8 MG/3ML Subcutaneous Solution Pen-injector (Semaglutide (2 MG/DOSE))Indicatio ns:Type 2 diabetes mellitus with diabetic neuropathy, with long-term current use of insulin ([facility]) Inject 2 mg under the skin [...] the morning. 0 06/04/2023 Active Epoetin Gautam-epbx 52419 UNIT/ML Injection Solution (Retacrit) Inject 2 mL [...] current use of insulin ([facility]) Inject 20 Units under the skin [...] as of this encounter (statuses as of 09/27/2023) Active Problems Problem Noted Date Diagnosed Date [...] Overview: Non-obstructive. Noted on CT scan at [facility] 05/2019 Mild nonproliferative diabet [...] as of this encounter (statuses as of 09/27/2023) Resolved Problems Problem Noted Date Diagnosed Date [...] Obesity Taxonomy 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 of inactive term assisted current use of ant icoagulant therapy 03/16/2005 [...] as of this encounter (statuses as of 09/27/2023) Immunizations Name Administration Dates Next Due COVID-19 mRNA, LNP-s, No Pre serve, 2-Dose Series ([employer]) 06/20/2021,10/22/2020,09/26/2020 COVID-19, LNP-s, No Preserve , Jamie-sucrose, Ages 12+ ([employer]) 03/13/2022 Covid-19, Mrna, Lnp-s, Pf, B ivalent, 30 Mcg, IM, 12 yrs and above (Pfizer) 09/20/2022 Pneumococcal Conjugate Vacci ne, 20-valent ([id number]) 03/14/2022 Pneumococcal Polysaccharide PPV23 (Pneumovax) 03/19/2006 Seasonal [...] encounter Miscellaneous Notes * Telephone Encounter - aNga Nath LPN - 09/27/2023 4:45 PM EST [...] EST HH Concerns Bridgette BARNETT, Calling from: [facility] Report/Concerns of: Calling to follow up on [...] or orders Please fax new orders to [phone] * Telephone Encounter - Roma Laura LPN - 09/25/2023 3:36 PM EST Bridgette (ERICKA, [facility]) make aware * Telephone Encounter - Britney Griffith LPN - 09/25/2023 3:23 PM EST I tried to call Bridgette. Faxed order to [facility]. I also called pt to make him aware- he states he will bring the urine sample in today. * Telephone Encounter - Marlon Ibrahim DO - 09/25/2023 1:53 PM EST UA/urine culture ordered. Okay to change wound dressing to their recommendation as listed below. Notify [facility]. * Telephone Encounter - Naga Nath LPN - 09/25/2023 12:32 PM EST See note below, please advise * Telephone Encounter - Najma Lugo LPN - 09/25/2023 11:53 AM EST Concerns Bridgette RN, Calling from: [facility] Report/Concerns of: wound discomfort Symptoms: stinging with aquacel Vitals: T 97 P 83 RR 18 BP 128/78 SP O2 98 Lung sounds clear Weight n/a Blood sugar 166 Narrative: Bridgette, calling from [facility]. Since the aquacel stings on the patients [...] Bridgette with any advice or orders at [phone] Please fax new orders to [phone] documented in this encounter Plan of Treatment Upcoming Encounters Date Type Department Care Team (Late st Contact Info) Description 09/30/2023 10:40 AM EST Laboratory Laboratory [address] [place] [phone] [facility] [address] [place] [address] 10/01/2023 9:00 AM EST Office Visit Cardiology [address] [place] [address] Prabhakar Henning PA-C [address] [place] [address] 10/01/2023 1:00 PM EST Immunization/Injecti on Hematology/Oncology Treatment, [place] [address] [place] [address] Nurse, Med [address] [facility] [place] [address] 10/15/2023 1:45 PM EST Office Visit Hematology/Oncology [facility] [address] [facility] [place] [address] Fly Velazquez MD [address] [facility] [place] [address] 10/23/2023 10:00 AM EDT Office Visit Sleep Disorders [facility] [address] [place] [phone] Dorothy Toscano CRNP [address] [place] [address] 10/24/2023 2:00 PM EDT Office Visit Ophthalmology, [facility] [address] [place] [address] Mika Diaz DO [address] [place] [address] 12/20/2023 11:40 AM EDT Office Visit Family Medicine [address] [phone] Marry [place] CRNP [address] [place], [place] [address] [address] 12/25/2023 2:00 PM EDT Office Visit Nephrology, [facility] [address] [facility] [place] [address] ZemaitisBeckie PA-C [address] [facility] [place] [address] Scheduled Procedures Name Priority Associated Diagnoses Date/Ti [...] Additional history exists CKD PHOS USE SMARTSET 87523 09/02/202408/13, 09/18/2022, 08/29/2021, Additional history exists CKD HGB USE SMARTSET 56578 09/16/202409/16, 09/16/2023, 09/02/2023, Additional history exists COLONOSCOPY-EVERY [...] this encounter Medical Devices Implanted Type Area Shrimp Trawler Captain Device Identifier Shelf Expiration Date Model / Serial / Lot Envista Hydrophobic Acrylic Intraocular Lens Implanted:Qty: 1 on 12/25/2016 by Raul Neely MD at OR [facility] Right: Eye [employer] 11/09/2018 [id number] / [id number] / [id number] Envista Mx60 +10.0 D Implanted:Qty: 1 on 01/29/2017 by Raul Neely MD at OR [facility] Left: Eye 11/09/2018 [id number] / [id number] / [id number] documented as of this encounter Results * (ABNORMAL) CULTURE, URINE, QUANTITATIVE (09/25/2023 4:07 PM EST) Culture Growth >100,000 colonies/mL Escherichia coli(A) MICROBROTH DILUTIONS 09/27/2023 7:27 AM EST LAB[facility]ATORY [facility] Urine Urine specimen obtained by clean catch procedure / Unknown Non-blood Collection / Unknown 09/25/2023 4:07 PM EST 09/25/2023 4:07 PM EST Narrative LABORATORY [facility] - 09/27/2023 7:27 AM EST <10,000 colonies/ml [...] DO LAB MICRO - GENERAL ORDERABLES [facility]ATORY [facility] [address] [place] [address] * (ABNORMAL) URINALYSIS, REFLEX TO [...] mg/dL 09/25/2023 10:58 PM EST LAB[facility]ATORY [facility] Specific [place], Urine 1.011 1.003 - 1.030 09/25/2023 10:58 PM EST LAB[facility] Blood, Urine Small(A) Negative 09/25/2023 10:58 PM [...] PM EST 09/25/2023 4:07 PM EST Marlon Muro Ibrahim DO LAB URINE ORDERABLES [facility]ATORY [facility] [address] [facility] [place] [address] documented in this encounter Visit Diagnoses Diagnosis [...] and were consensually agreed upon. Care Teams Test Boring Crew Chief Relationship Specialty Start Date End Date Marlon Ibrahim DO [address] [place] [address] [place] [address] PCP - General Internal Medicine 09/11/18 documented as of this encounter
--- OUTSIDE RECORDS SUMMARY | 2023-11-13 21:30 | External Medical Summary ---
Author Name Unknown Address Unknown Organization : Laboratory Report Ordering Provider Test Date Status UTE FALLON 09/26/2023 08:45:41 Final Observation Date Value Abnormality Reference (Units ) Status Glucose Point of Care 09/26/2023 08:45:41 155 Above high normal 70-120 (mg/dL) Final Performing Location
--- OUTSIDE RECORDS SUMMARY | 2023-11-13 21:30 | External Medical Summary | Summary of Care ---
Author Name Unknown Organization [facility] Address [address] [place] [address] Phone [phone] Care Team Providers Care Biological Technician Name Role Phone RyanNancy martinez Primary Care Provider [phone] Reason for Visit * Auth/Cert Specialty Diagnoses / Procedures Referred By Juan Pablo ornelas Referred To Contact Diagnoses Hematemesis, unspecified whether nausea present Hematemesis, unspecified whether nausea present [K92.0] Procedures EGD, FLEXIBLE, DIAGNOSTIC ESOPHAGOGASTRODUODENOSCOPY (EGD), FLEXIBLE, TRANSORAL, DIAGNOSTIC Referral ID Status Reason Start Date Expiration Date Visits Re quested Visits Authorized [id number] Encounter Details Date Type Department Care Team (Latest Contact Info) Description 09/26/2023 8:06 AM EST - 09/26/2023 10:16 AM EST Hospital Encounter OR GL, Operating Room, [facility] - 4th Floor [address] [place] [address] Jayda Jeong, [address] [place] [address] Upper GI Endoscopy Discharge Disposition: Home - Self Care Allergies No known active allergiesdocumented as of this encounter (statuses as of 09/26/2023) Medications Medication Sig Dispensed Refills Start Date End Date Status MULTIPLE VITAMIN PO TABS 1 TABLET DAILY 0 1 Active OMEGA-3 FISH OIL 1000 MG PO CAPS Take one capsule by mouth daily 0 1 Active Blood Glucose Monitoring Suppl (appweevr ULTRA SYSTEM) W/DEVICE KITIndications:D M type 2, [...] AND DINNER 180 Tablet 3 3 Active ADOMIC (formerly YieldMetrics)Touch Verio In Vitro Strip (Glucose Blood) Use [...] 3 Active Allopurinol 100 MG Oral Tablet (Zyloprim)Indica tions:Acute [...] current use of insulin ([facility]) Take 1 Tablet by mouth 2 times a day with morning and evening meals. 180 Tablet 3 3 Active Losartan Potassium 50 MG Oral Tablet (Cozaar) Take 0.5 Tablets by mouth in the morning. 0 3 Active Epoetin Gautam-epbx 28000 UNIT/ML Injection Solution (Retacrit) Inject 2 mL [...] Glargine Solostar 100 UNIT/ML Subcutaneous Solution Pen-injector (Caesaglradha Ashraf)Indicati ons:Type 2 diabetes mellitus with diabetic neuropathy, with long-term current use of insulin ([facility]) Inject 20 Units under the skin in the morning. 0 4 Active Pantoprazole Sodium 40 MG Oral Tablet Delayed Release (Protonix) Take 1 Tablet by mouth in the morning. 90 Tablet 0 4 Active Acetic Acid 0.25 % Irrigation Solution Apply to legs as directed by the wound clinic. 1000 mL 2 3 024 Discontinued Sodium Bicarbonate 650 MG Oral Tablet Take 2 Tablets by mouth in the morning and 2 Tablets at noon and 2 Tablets in the evening and 2 Tablets before bedtime. 60 Tablet 5 3 024 Discontinued Pantoprazole Sodium 40 MG Oral Tablet Delayed Release (Protonix) Take 1 Tablet by mouth in the morning. 90 Tablet 1 4 024 Discontinued(Re fill) documented as of this encounter (statuses as of 09/26/2023) Active Problems Problem Noted Date Diagnosed Date [...] Overview: Non-obstructive. 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 therapy 03/16/2005 [...] as of this encounter (statuses as of 09/26/2023) Immunizations Name Administration Dates Next Due COVID-19 mRNA, LNP-s, No Pre serve, 2-Dose Series (Pfizer) 06/20/2021,10/22/2020,09/26/2020 COVID-19, LNP-s, No Preserve , Jamie-sucrose, Ages 12+ (Pfizer) 03/13/2022 Covid-19, Mrna, Lnp-s, Pf, B ivalent, 30 Mcg, IM, 12 yrs and above (Pfizer) 09/20/2022 Pneumococcal Conjugate Vacci ne, 20-valent ([id number]) 03/14/2022 Pneumococcal Polysaccharide PPV23 (Pneumovax) 03/19/2006 Seasonal [...] Sign Reading Time Taken Comments Blood Pressure 116/55 09/26/2023 9:59 AM EST Pulse 80 09/26/2023 9:59 AM EST Temperature 36.4 C (97.5 F) 09/26/2023 9:59 AM ES T Respiratory Rate 16 09/26/2023 9:59 AM EST Oxygen Saturation 100% 09/26/2023 9:59 AM EST Inhaled Oxygen Concentration - - Weight 146.5 kg (323 lb) 09/17/2023 10:02 AM EST Height 180.3 cm (5' 11") 09/17/2023 10:02 AM EST Body Mass Index 45.05 09/17/2023 10:02 AM EST documented in this encounter H&P Notes * Jayda Jeong, DO - 09/26/2023 9:11 AM EST Endoscopy Pre-Procedure Assessment Name: Ronnie Wu Date: 09/26/2023 Time: 9:11 AM Procedure(s): Upper GI Endoscopy; with Indication(s) of history of coffee-ground emesis associated with nausea and vomiting in early August. Patient had been admitted to [facility] and now presents for upper endoscopy. He notes that his symptoms have completely resolved. Endoscopy Pre-Procedure Assessment: Prior to the procedure, the patient is identified. The patient's history, medications and allergieshave been reviewed. The patient is competent. The risks and benefits of the proposed procedure and the planned sedation have been discussed with the patient. All questions have been answered and informed consent for the procedure has been obtained. Prior to Admission medications Medication Sig Last Dose Discont. Pantoprazole Sodium 40 MG Oral Tablet Delayed Release (Protonix) Take 1 Tablet by mouth in the morning. Past Week Insulin Glargine Solostar 100 UNIT/ML Subcutaneous Solution Pen-injector (Basaglar KwikPen) Inject 20 Units under the skin in the morning. 09/25/2023 Atorvastatin Calcium 20 MG Oral Tablet (Lipitor) TAKE 1 TABLET BY MOUTH EVERY DAY IN THE MORNING 09/25/2023 Chlorthalidone 25 MG Oral Tablet (Hygroton) Take 1 Tablet by mouth in the morning. 09/25/2023 Vitamin D3 125 MCG (5000 UT) Oral Tablet Chewable Take by mouth. 09/25/2023 Torsemide 20 MG Oral Tablet (Demadex) Take 1 Tablet by mouth in the morning. 09/25/2023 Losartan Potassium 50 MG Oral Tablet (Cozaar) Take 0.5 Tablets by mouth in the morning. 09/25/2023 Allopurinol 100 MG Oral Tablet (Zyloprim) Take 1 Tablet by mouth in the morning. Take 1 tablet by mouth in the morning in addition to 300 mg tablet for a total dose of 400 mg.. 09/25/2023 metFORMIN HCl 500 MG Oral Tablet (Glucophage) Take 1 Tablet by mouth 2 times a day with morning andevening meals. 09/25/2023 Ozempic (2 MG/DOSE) 8 MG/3ML Subcutaneous Solution Pen-injector (Semaglutide (2 MG/DOSE)) Inject 2 mg under the skin once a week. DX E11.9 Diabetes Mellitus 09/14/2023 Allopurinol 300 MG Oral Tablet (Zyloprim) TAKE 1 TABLET BY MOUTH EVERY DAY 09/25/2023 Carvedilol 6.25 MG Oral Tablet (Coreg) TAKE 1 TABLET BY MOUTH TWICE A DAY WITH BREAKFAST AND DINNER09/25/2023 Rhopressa 0.02 % Ophthalmic Solution Instill 1 Drop into the left eye at bedtime. 09/25/2023 Vitamin C 1000 MG Oral Tablet Take 1 Tablet by mouth in the morning. 09/25/2023 Aspirin 81 MG Tablet Take 1 Tablet by mouth in the morning. 09/25/2023 dorzolamide-timolol (COSOPT OCUMETER PLUS) 2.23-0.68% ophthalmic solution INSTILL 1 DROP INTO BOTH EYES BY OPHTHALMIC ROUTE ONCE IN THE MORING AND THE SECOND DROP AROUND 5 PM 09/26/2023 MULTIPLE VITAMIN PO TABS 1 TABLET DAILY 09/25/2023 OMEGA-3 FISH OIL 1000 MG PO CAPS Take one capsule by mouth daily 09/25/2023 Epoetin Gautam-epbx 81886 UNIT/ML Injection Solution (Retacrit) Inject 2 mL intravenously once. Everytwo weeks 09/17/2023 OneTouch Delica Lancets 30G Use TWICE a day to test glucose Diagnosis = E11.9 OneTouch Verio In Vitro Strip (Glucose Blood) Use to test blood sugars twice a day. Dx. E11.9 BD Pen Needle Wilda U/F 32G X 4 MM (Insulin Pen Needle) Use once a day with basaglar. DX e11.9 Blood Glucose Monitoring Suppl (STEERadsUCH ULTRA SYSTEM) W/DEVICE KIT Use as directed 4 times a day. Use up to four times a day as directed. Diagnosis = E11.9 Review of patient's allergies indicates: No Known Allergies BP 140/69 | Pulse 92 | Temp 36 C (96.8 F) (Temporal Artery) | Resp 16 | Ht 1.803 m (5' 11") | Wt (!) 146.5 kg (323 lb) | SpO2 100% | BMI 45.05 kg/m | BSA 2.71 m Physical Exam: Mental Status Examination: alert and oriented. Airway Examination: normal oropharyngeal airway and neck mobility. Respiratory Examination: poor air movement. CV Examination: systolic murmur. ASA Grade: III - A patient with severe systemic disease. Abdomen: soft This patient has undergone a preprocedural evaluation. A determination has been made to proceed with the planned procedure under [facility] procedural guidelines and the [facility] Non-Emergent, Elective Medical Services and Treatment Recommendations (published on 11-17-19). The community and hospital prevalence of COVID-19 has been discussed as well as this patient's specific risks associated with SARS-CoV-19 infection. Based upon the clinical acuity and patient-specific care considerations, this procedure is deemed a Tier II - Intermediate acuity treatment or service with either progression or the threat of progressive disease related to the delay in treatment. Not providing the service has the potential for increasing morbidity or mortality. After reviewing the risks and benefits, the patient is deemed in satisfactory condition to undergo the procedure. The anesthesia plan is to use general anesthesia. We have discussed the risks and benefits of upper endoscopy to include bleeding, infection, perforation, discomfort, aspiration and need for follow-up studies. Jayda Jeong DO 09/26/2023 documented in this encounter Procedure Notes * Nancy Ryan DO - 09/26/2023 9:17 AM ESTAssociated Order(s): UPPER GI ENDOSCOPY [facility] Patient Name: Ronnie Wu Procedure Date: 09/26/2023 9:17 AM Date of : 1955 Admit Type: Outpatient Note Status: Finalized Date of : 1955 Admit Type: Outpatient Age: 68 Room: OR 5 Gender: Male Note Status: Finalized Procedure: Upper GI endoscopy Indications: Coffee-ground emesis Providers: Jayda Jeong DO (Doctor) Referring MD: Nancy Ryan DO Medicines: General Anesthesia Complications: No immediate complications. Estimated blood loss: Minimal. Procedure: Pre-Anesthesia Assessment: - Prior to the procedure, a History and Physical was performed, and patient medications, allergies and sensitivities were reviewed. The patient's tolerance of previous anesthesia was reviewed. - The risks and benefits of the procedure and the sedation options and risks were discussed with the patient. All questions were answered and informed consent was obtained. - Patient identification and proposed procedure were verified prior to the procedure by the physician, the nurse and the security escort. The procedure was verified in the procedure room. - Pre-procedure physical examination revealed no contraindications to sedation. - ASA Grade Assessment: III - A patient with severe systemic disease. - After reviewing the risks and benefits, the patient was deemed in satisfactory condition to undergo the procedure. - The anesthesia plan was to use general anesthesia. - Immediately prior to administration of medications, the patient was re- assessed for adequacy to receive sedatives. - The heart rate, respiratory rate, oxygen saturations, blood pressure, adequacy of pulmonary ventilation, and response to care were monitored throughout the procedure. - The physical status of the patient was re-assessed after the procedure. After obtaining informed consent, the endoscope was passed under direct vision. All instruments were visually inspected immediately before and after removal from the patient to ensure they are fully intact. Throughout the procedure, the patient's blood pressure, pulse, and oxygen saturations were monitored continuously. The GIF-Q190 Endoscope ([id number]) was introduced through the mouth, and advanced to the third part of duodenum. The upper GI endoscopy was accomplished without difficulty. The patient tolerated the procedure well. Findings & Specimens: The examined esophagus was normal. The Z-line was regular and was found 40 cm from the incisors. The cardia, gastric fundus and gastric body were normal. Segmental moderate inflammation characterized by erosions, erythema and granularity was found in the gastric antrum. Biopsies were taken with a cold forceps for histology. The pathology specimen was placed into Bottle B. Estimated blood loss was minimal. Many non-obstructing non-bleeding superficial duodenal ulcers with no stigmata of bleeding were found in the duodenal bulb, in the second portion of the duodenum and in the third portion of the duodenum. The largest lesion was 5 mm in largest dimension. Biopsies were taken with a cold forceps for histology. Estimated blood loss was minimal. Impression: - Normal esophagus. - Z-line regular, 40 cm from the incisors. - Normal cardia, gastric fundus and gastric body. - Gastritis. Biopsied. - Non-obstructing non-bleeding duodenal ulcers with no stigmata of bleeding. Biopsied. Recommendation: - The patient will be observed post-procedure, until all discharge criteria are met. - Advance diet as tolerated today. - Await pathology results. - Use Prilosec (omeprazole) 40 mg PO daily indefinitely. - Serum gastric level. - No aspirin, ibuprofen, naproxen, or other non-steroidal anti-inflammatory drugs. Jayda Jeong DO 09/26/2023 9:32:08 AM This report has been signed electronically. Estimated Blood Loss: Estimated blood loss was minimal. documented in this encounter Nursing Notes * Tricia Rosas, RN - 09/26/2023 9:23 AM EST EGD completed. Sedated by CALENDER ROLL OPERATOR. See anesthesia record for VS and medications given. Pt tolerated procedure well with minimal gagging. Abd soft. Airway patent. Pt to recovery on L side with HOB elevated. Report to recovery room nurse. Specimens collected and sent. Bedside cleaning done. documented in this encounter Plan of Treatment Upcoming Encounters Date Type Department Care Team (Late st Contact Info) Description 09/30/2023 10:40 AM EST Laboratory Laboratory [address] [place] [phone] [place] [address] 10/01/2023 9:00 AM EST Office Visit Cardiology [address] [place] [address] Prabhakar Henning PA-C [address] [place] [address] 10/01/2023 1:00 PM EST Immunization/Injecti on Hematology/Oncology [facility] [place] [facility] [address] Nurse, [facility] [address] [facility] [place] [address] 10/15/2023 1:45 PM EST Office Visit Hematology/Oncology [facility] [address] [facility] [place] [address] Fly Velazquez MD [address] [facility] [place] [address] 10/23/2023 10:00 AM EDT Office Visit Sleep Disorders Ctr [facility] [address] [place] [phone] Dorothy Toscano CRNP [address] [place] [address] 10/24/2023 2:00 PM EDT Office Visit Ophthalmology, [facility] [address] [place] [address] Mika Diaz, [address] [place] [address] 12/20/2023 11:40 AM EDT Office Visit Family Medicine [address] [place] [phone] Marry Hansen CRNP [address] [place] [address] [place] [address] 12/25/2023 2:00 PM EDT Office Visit Nephrology, [place] [address] [place] [address] [address] ZeBeckie cruz PA-C [facility] [place] [address] Pending Results Name Type Priority Associated Diagnoses Date /Time SURGICAL PATHOLOGY Pathology Routine 2023 9:24 AM EST GASTRIN, SERUM Lab Routine 09/26/2023 9:59 AM EST Scheduled Orders Name Type Priority Associated Diagnoses Orde r Schedule SURGICAL PATHOLOGY Pathology Routine One Ti me for 1 Occurrences starting 09/26/2023 until 09/26/2023, 1 completed GASTRIN, SERUM Lab Routine One Time f or 1 Occurrences starting 09/26/2023 until 09/26/2023 Scheduled Procedures Name Priority Associated Diagnoses Date/Ti me ESOPHAGOGASTRODUODENOSCOPY ( EGD), FLEXIBLE, TRANSORAL, DIAGNOSTIC Hematemesis, unspecified whether nausea present 09/26/2023 9:08 AM EST COLONOSCOPY FLEXIBLE PROXIMA L DIAGNOSTIC Recall History of colon polyps Health Maintenance Due Date Last Done Comments Hepatitis B (1 of 3 - Risk 3-dose series) 2017 Depression Screening 01/28/2021 01/29/2020 Diabetic Foot Exam [...] Additional history exists CKD PHOS USE SMARTSET 14144 09/02/202408/13 09/2023, 09/18/2022, 08/29/2021, Additional history exists CKD HGB USE SMARTSET 83227 09/16/202409/16, 09/16/2023, 09/02/2023, Additional history exists COLONOSCOPY-EVERY [...] this encounter Medical Devices Implanted Type Area Sort Worker Device Identifier Shelf Expiration Date Model / Serial / Lot Envista Hydrophobic Acrylic Intraocular Lens Implanted:Qty: 1 on 12/25/2016 by Raul Neely MD at OR [facility] Right: Eye [employer] 11/09/2018 [id number] / [id number] / [id number] Envista Mx60 +10.0 D Implanted:Qty: 1 on 01/29/2017 by Raul Neely MD at OR [facility] Left: Eye 11/09/2018 [id number] / [id number] / [id number] documented as of this encounter Procedures Procedure Name Priority Date/Time Associated Diagnosis Comments UPPER GI ENDOSCOPY 09/26/2023 9: 17 AM EST GLUCOSE METER, POINT OF CARE RADHA 09/26/2023 8:45 AM EST documented in this encounter Results * UPPER GI ENDOSCOPY (09/26/2023 9:17 AM EST) 09/26/2023 9:17 AM EST Narrative Procedure Note Nancy Ryan DO - 09/26/2023 9:17 AM EST [facility] Patient Name: Ronnie Wu Procedure Date: 09/26/2023 9:17 AM Date of : 1955 Admit Type: Outpatient Note Status:Finalized Date of : 1955 Admit Type: Outpatient Age: 68 Room: OR 5 Gender: Male Note Status: Finalized Procedure: Upper GI endoscopy Indications: Coffee-ground emesis Providers: Jayda Jeong DO (Doctor) Referring MD: Nacny Ryan DO Medicines: General Anesthesia Complications: No immediate complications. Estimated blood loss:Minimal. Procedure: Pre-Anesthesia Assessment: - Prior to the procedure, a History and Physicalwas performed, and patient medications, allergies and sensitivities werereviewed. The patient's tolerance of previous anesthesia was reviewed. - The risks and benefits of the procedure and thesedation options and risks were discussed with the patient. All questions wereanswered and informed consent was obtained. - Patient identification and proposed procedurewere verified prior to the procedure by the physician, the nurse and the security escort.The procedure was verified in the procedure room. - Pre-procedure physical examination revealed nocontraindications to sedation. - ASA Grade Assessment: III - A patient with severesystemic disease. - After reviewing the risks and benefits, thepatient was deemed in satisfactory condition to undergo the procedure. - The anesthesia plan was to use generalanesthesia. - Immediately prior to administration ofmedications, the patient was re-assessed for adequacy to receive sedatives. - The heart rate, respiratory rate, oxygensaturations, blood pressure, adequacy of pulmonary ventilation, and response to care weremonitored throughout the procedure. - The physical status of the patient wasre-assessed after the procedure. After obtaining informed consent, the endoscope waspassed under direct vision. All instruments were visually inspected immediatelybefore and after removal from the patient to ensure they are fully intact. Throughoutthe procedure, the patient's blood pressure, pulse, and oxygen saturations weremonitored continuously. The GIF-Q190 Endoscope ([id number]) was introduced throughthe mouth, and advanced to the third part of duodenum. The upper GI endoscopy wasaccomplished without difficulty. The patient tolerated the procedure well. Findings & Specimens: The examined esophagus was normal. The Z-line was regular and was found 40 cm from the incisors. The cardia, gastric fundus and gastric body were normal. Segmental moderate inflammation characterized by erosions, erythemaand granularity was found in the gastric antrum. Biopsies were taken with a cold forceps forhistology. The pathology specimen was placed into Bottle B. Estimated blood loss was minimal. Many non-obstructing non-bleeding superficial duodenal ulcers with nostigmata of bleeding were found in the duodenal bulb, in the second portion of the duodenum and inthe third portion of the duodenum. The largest lesion was 5 mm in largest dimension. Biopsies were takenwith a cold forceps for histology. Estimated blood loss was minimal. Impression: - Normal esophagus. - Z-line regular, 40 cm from the incisors. - Normal cardia, gastric fundus and gastric body. - Gastritis. Biopsied. - Non-obstructing non-bleeding duodenal ulcers withno stigmata of bleeding. Biopsied. Recommendation: - The patient will be observed post-procedure,until all discharge criteria are met. - Advance diet as tolerated today. - Await pathology results. - Use Prilosec (omeprazole) 40 mg PO dailyindefinitely. - Serum gastric level. - No aspirin, ibuprofen, naproxen, or othernon-steroidal anti-inflammatory drugs. Jayda Jeong DO 09/26/2023 9:32:08 AM This report has been signed electronically. Estimated Blood Loss: Estimated blood loss was minimal. Nancy Ryan DO GASTRO UPPER * (ABNORMAL) GLUCOSE METER, POINT OF CARE (09/26/2023 8:45 AM EST) Glucose Meter 155(H) 70 - 120 mg/dL 09/26/2023 8:47 AM EST [facility] Blood Whole blood specimen / Unknown 09/26/2023 8:45 AM EST 09/26/2023 8:47 AM EST Jayda Elizabeth Jeong DO LAB POINT OF CARE TE ST DOCKED DEVICE UNSOLICITED RESULTS [facility] [address] [facility] [place] [address] documented in this encounter Administered Medications Inactive Administered Medications - up to 3 most recent administrations Medication Order MAR Action Action Date Dose Rate Site isolyte-S pH 7.4 infusion Intravenous, Plasma-LYTE 148, isolyte-S, and isolyte-S pH 7.4 are considered equivalent - including for MAR barcode scanning., CONTINUOUS, Starting on Juliane 09/26/23 at 0915, Until Juliane 09/26/23 at 1417, Pre-Op documented in this encounter Active and Recently Administered Medications Times are shown in EST. Continuous Medication Order 09/24/2023 09/25/2023 09/26/2023 isolyte-S pH 7.4 infusion Intravenous, Plasma-LYTE 148, isolyte-S, and isolyte-S pH 7.4 are considered equivalent - including for MAR barcode scanning., CONTINUOUS, Starting on Juliane 09/26/23 at 0915, Until Juliane 09/26/23 at 1417, Pre-Op 0915 (Due) documented in this encounter Advance Directives Latest [...] and were consensually agreed upon. Care Teams Biological Technician Relationship Specialty Start Date End Date Nancy Ryan DO [address] [place] [address] [place] [id number] PCP - General Internal Medicine 09/11/18 documented as of this encounter
--- OUTSIDE RECORDS SUMMARY | 2023-11-13 21:30 | External Medical Summary | Summary of Care ---
Author Name Unknown Organization [facility] Address [address] [place] [address] Phone [phone] Care Team Providers Care Obstetrician And Gynaecologist Name Role Phone Nancy Ryan DO Primary Care Provider Reason for Visit * Reason Onset Date Comments Home Health 09/25/2023 Encounter Details Date Type Department Care Team (Late st Contact Info) Description 09/25/2023 Telephone Family Medicine [address] [phone] Nancy Ryan DO [address] [place] [address] [place] [phone] Home Health Allergies No known active allergiesdocumented as of this encounter (statuses as of 09/27/2023) Medications Medication Sig Dispensed Refills Start Date End Date Status MULTIPLE VITAMIN PO TABS 1 TABLET DAILY 0 07/03/2011 Active OMEGA-3 FISH OIL 1000 MG PO CAPS Take one capsule by mouth daily 0 07/03/2011 Active Blood Glucose Monitoring Suppl ([employer] ULTRA SYSTEM) W/DEVICE KITIndications:DM type 2, goal [...] the morning. 0 06/04/2023 Active Epoetin Gautam-epbx 52164 UNIT/ML Injection Solution (Retacrit) Inject 2 mL [...] [facility]) Inject 20 Units under the skin in the morning. 0 09/04/2023 Active Pantoprazole Sodium 40 MG Oral Tablet Delayed Release (Protonix) Take 1 Tablet by mouth in the morning. 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 [...] mRNA, LNP-s, No Pre serve, 2-Dose Series (Portable Internet) 06/20/2021,10/22/2020,09/26/2020 COVID-19, LNP-s, No Preserve , Jamie-sucrose, Ages 12+ (Pfizer) 03/13/2022 Covid-19, Mrna, Lnp-s, Pf, B ivalent, 30 Mcg, IM, 12 yrs and above (Portable Internet) 09/20/2022 Pneumococcal Conjugate Vacci ne, 20-valent ([id number]) 03/14/2022 Pneumococcal Polysaccharide PPV23 (Pneumovax) 03/19/2006 Seasonal [...] encounter Miscellaneous Notes * Telephone Encounter - Roma Laura LPN - 09/27/2023 3:40 PM EST HH Concerns Bridgette BARNETT, Calling from: [facility] Report/Concerns of: Calling to follow up on [...] or orders Please fax new orders to [phone] * Telephone Encounter - Roma Laura LPN - 09/25/2023 3:36 PM EST Bridgette ([employer], [facility]) make aware * Telephone Encounter - Britney Griffith LPN - 09/25/2023 3:23 PM EST I tried to call Bridgette. Faxed order to [facility]. I also called pt to make him aware- he states he will bring the urine sample in today. * Telephone Encounter - Nancy Ryan DO - 09/25/2023 1:53 PM EST UA/urine culture ordered. Okay to change wound dressing to their recommendation as listed below. Notify [facility]. * Telephone Encounter - Naga Nath LPN - 09/25/2023 12:32 PM EST See note below, please advise * Telephone Encounter - Najma Lugo LPN - 09/25/2023 11:53 AM EST HH Concerns Bridgette RN, Calling from: [facility] Report/Concerns of: wound discomfort Symptoms: stinging with aquacel Vitals: T 97 P 83 RR 18 BP 128/78 SP O2 98 Lung sounds clear Weight n/a Blood sugar 166 Narrative: Bridgette, calling from [facility]. Since the aquacel stings on the [...] Bridgette with any advice or orders at [phone] Please fax new orders to [phone] documented in this encounter Plan of Treatment Upcoming Encounters Date Type Department Care Team (Late st Contact Info) Description 09/30/2023 10:40 AM EST Laboratory Laboratory [address] [place] [phone] [address] [place] [address] 10/01/2023 9:00 AM EST Office Visit Cardiology [address] [place] [address] Prabhakar Henning PA-C [address] [place] [address] 10/01/2023 1:00 PM EST Immunization/Injecti on Hematology/Oncology Treatment, [place] [address] [place] [address] Nurse, Med [address] [place] [address] [address] 10/15/2023 1:45 PM EST Office Visit Hematology/Oncology [employer] [address] [place] [address] [address] Fly Velazquez MD [facility] [place] [address] 10/23/2023 10:00 AM EDT Office Visit Sleep Disorders Ctr [facility] [address] [place] [phone] Dorothy Toscano CRNP [address] [place] [address] 10/24/2023 2:00 PM EDT Office Visit Ophthalmology, [facility] [address] [place] [address] Mika Diaz DO [address] [place] [address] 12/20/2023 11:40 AM EDT Office Visit Family Medicine [address] [phone] Marry Hansen CRNP [address] [place] [address] [place] [address] 12/25/2023 2:00 PM EDT Office Visit Nephrology, [place] [address] [place] [address] ZemaitisBeckie PA-C [address] [place] [address] Scheduled Procedures Name Priority Associated Diagnoses Date/Ti [...] Additional history exists CKD PHOS USE SMARTSET 38554 09/02/202408/13, 09/18/2022, 08/29/2021, Additional history exists CKD HGB USE SMARTSET 80199 09/16/202409/16, 09/16/2023, 09/02/2023, Additional history exists COLONOSCOPY-EVERY [...] this encounter Medical Devices Implanted Type Area Maintenance Mechanic Device Identifier Shelf Expiration Date Model / Serial / Lot Envista Hydrophobic Acrylic Intraocular Lens Implanted:Qty: 1 on 12/25/2016 by Raul Neely MD at OR [facility] Right: Eye [employer] 11/09/2018 [id number] / [id number] / [id number] Envista Mx60 +10.0 D Implanted:Qty: 1 on 01/29/2017 by Raul Neely MD at OR [facility] Left: Eye 11/09/2018 [id number] / [id number] / [id number] documented as of this encounter Results * (ABNORMAL) CULTURE, URINE, QUANTITATIVE (09/25/2023 4:07 PM EST) Pathologist [facility] Culture Growth >100,000 colonies/mL Escherichia coli(A) MICROBROTH DILUTIONS 09/27/2023 7:27 AM EST LABORATORY [facility] Urine Urine specimen obtained by clean catch procedure / Unknown Non-blood Collection / Unknown 09/25/2023 4:07 PM EST 09/25/2023 4:07 PM EST [facility] LABORATORY [facility] - 09/27/2023 7:27 AM EST <10,000 [...] coli Trimeth/Sulfamethoxazole MICROBROTH D ILUTIONS <=20: Susceptible Nancy Muro Shelby ALVAREZ LAB MICRO - GENERAL ORDERABLES LABORATORY [facility] [address] [place] [address] * (ABNORMAL) URINALYSIS, REFLEX TO [...] 09/25/2023 10:58 PM EST LABORATORY C Specific [place], Urine 1.011 1.003 - 1.030 09/25/2023 10:58 PM EST LABORATORY [facility] Blood, Urine Small(A) Negative 09/25/2023 10:58 PM EST LABORATORY [facility] pH, Urine 6.0 5.0 - 7.5 Units 09/25/2023 10:58 PM EST [facility] Protein, Urine Trace(A) Negative mg/dL 09/25/2023 10:58 PM EST LABORATORY [facility] Urobilinogen, Urine Normal Normal mg/dL 09/25/2023 10:58 PM EST LABORATORY C Nitrite, Urine Negative Negative 09/25/2023 10:58 PM EST LABORATORY C Esterase, Urine Large(A) Negative 09/25/2023 10:58 PM [...] 4:07 PM EST 09/25/2023 4:07 PM EST Nancy Ryan DO LAB URINE ORDERABLES [facility] [address] [facility] [place] [address] documented in this encounter Visit Diagnoses Diagnosis [...] and were consensually agreed upon. Care Teams Obstetrician And Gynaecologist Relationship Specialty Start Date End Date Nancy Ryan DO [address] [place] [address] [place] [address] PCP - General Internal Medicine 09/11/18 documented as of this encounter
--- OUTSIDE RECORDS SUMMARY | 2023-11-13 21:30 | External Medical Summary | Summary of Care ---
Author Name Unknown Organization [facility] Address [address] [place] [address] Phone [phone] Care Team Providers Care Analysis Mgr Name Role Phone Marlon Ibrahim DO Primary Care Provider Reason for Visit * Reason Onset Date Comments Home Health 09/25/2023 Encounter Details Date Type Department Care Team (Late st Contact Info) Description 09/25/2023 Telephone Family Medicine [address] [phone] Marlon Ibrahim DO [address] [place] [address] [place] [address] Home Health Allergies No known active allergiesdocumented as of this encounter (statuses as of 09/27/2023) Medications Medication Sig Dispensed Refills Start Date End Date Status MULTIPLE VITAMIN PO TABS 1 TABLET DAILY 0 07/03/2011 Active OMEGA-3 FISH OIL 1000 MG PO CAPS Take one capsule by mouth daily 0 07/03/2011 Active Blood Glucose Monitoring Suppl (Experenti ULTRA SYSTEM) W/DEVICE KITIndications:DM type 2, goal [...] the morning. 0 06/04/2023 Active Epoetin Gautam-epbx 27369 UNIT/ML Injection Solution (Retacrit) Inject 2 mL [...] Overview: Non-obstructive. Noted on CT scan at [facility] 05/2019 Mild nonproliferative diabet ic [...] Obesity Taxonomy 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 of inactive term detention current use of ant icoagulant therapy 03/16/2005 [...] mRNA, LNP-s, No Pre serve, 2-Dose Series (Ascenz) 06/20/2021,10/22/2020,09/26/2020 COVID-19, LNP-s, No Preserve , Jamie-sucrose, Ages 12+ (Ascenz) 03/13/2022 Covid-19, Mrna, Lnp-s, Pf, B ivalent, 30 Mcg, IM, 12 yrs and above (Pfizer) 09/20/2022 Pneumococcal Conjugate Vacci ne, 20-valent ([id number]) 03/14/2022 Pneumococcal Polysaccharide PPV23 (Pneumovax) 03/19/2006 Seasonal [...] HH Concerns Bridgette BARNETT, Calling from: [facility] Report/Concerns of: Calling to follow up on [...] or orders Please fax new orders to [phone] * Telephone Encounter - Roma Laura LPN - 09/25/2023 3:36 PM EST Bridgette [facility]) make aware * Telephone Encounter - Britney Griffith LPN - 09/25/2023 3:23 PM EST I tried to call Bridgette. Faxed order to [facility]. I also called pt to make [...] EST HH Concerns Bridgette RN, Calling from: [facility] Report/Concerns of: wound discomfort Symptoms: stinging with aquacel Vitals: T 97 P 83 RR 18 BP 128/78 SP O2 98 Lung sounds clear Weight n/a Blood sugar 166 Narrative: Bridgette, calling from [facility]. Since the aquacel stings on the [...] Bridgette with any advice or orders at [phone] Please fax new orders to [phone] documented in this encounter Plan of Treatment Upcoming Encounters Date Type Department Care Team (Heydi Contact Info) Description 09/30/2023 10:40 AM EST Laboratory Laboratory [address] [place] [phone] [address] [place] [address] 10/01/2023 9:00 AM EST Office Visit Cardiology [address] [place] [address] Prabhakar Henning PA-C [address] [place] [address] 10/01/2023 1:00 PM EST Immunization/Injecti on Hematology[facility]cology [facility] [place] [facility] [address] Nurse, Med [address] [facility] [place] [address] 10/15/2023 1:45 PM EST Office Visit Hematology/Oncology [facility] [place] [address] Fly Velazquez MD 200 [facility] [place] [address] 10/23/2023 10:00 AM EDT Office Visit Sleep Disorders Ctr [facility] [address] [place] [phone] Dorothy Toscano CRNP [address] [place] [address] 10/24/2023 2:00 PM EDT Office Visit Ophthalmology, [facility] [address] [place] [address] Mika Diaz, DO [address] [place] [address] 12/20/2023 11:40 AM EDT Office Visit Family Medicine [address] [place] [phone] Marry Hansen [address] [place] [address] 12/25/2023 2:00 PM EDT Office Visit Nephrology, [place] [address] [facility] [address] [place] [address] Zemaitis, Beckie Tucker PA-C [address] [place] [address] Scheduled Procedures Name Priority Associated Diagnoses Date/Ti [...] Additional history exists CKD PHOS USE SMARTSET 12970 09/02/202408/13, 09/18/2022, 08/29/2021, Additional history exists CKD HGB USE SMARTSET 21493 09/16/202409/16, 09/16/2023, 09/02/2023, Additional history exists COLONOSCOPY-EVERY [...] this encounter Medical Devices Implanted Type Area Php Website Developer Device Identifier Shelf Expiration Date Model / Serial / Lot Envista Hydrophobic Acrylic Intraocular Lens Implanted:Qty: 1 on 12/25/2016 by Raul Neely MD at OR [facility] Right: Eye [employer] 11/09/2018 [id number] / [id number] / [id number] Envista Mx60 +10.0 D Implanted:Qty: 1 on 01/29/2017 by Raul Neely MD at OR [facility] Left: Eye 11/09/2018 [id number] / [id number] / [id number] documented as of this encounter Results * (ABNORMAL) CULTURE, URINE, QUANTITATIVE (09/25/2023 4:07 PM EST) Culture Growth >100,000 colonies/mL Escherichia coli(A) MICROBROTH DILUTIONS 09/27/2023 7:27 AM EST LAB[facility]ATORY [facility] Urine Urine specimen obtained by clean catch procedure / Unknown Non-blood Collection / Unknown 09/25/2023 4:07 PM EST 09/25/2023 4:07 PM EST [facility] LAB[facility] - 09/27/2023 7:27 AM EST <10,000 colonies/ml [...] DO LAB MICRO - GENERAL ORDERABLES LAB[facility] [address] [place] [address] * (ABNORMAL) URINALYSIS, REFLEX TO MICROSCOPIC (09/25/2023 4:07 PM EST) Color, Urine Yellow Colorless, Light Yellow, Yellow, Dark Yellow 09/25/2023 10:58 PM EST LABORATORY [facility] Clarity, Urine Cloudy(A) Clear 09/25/2023 10:58 PM EST LAB[facility]ORY [facility] Glucose, Urine Negative Negative mg/dL 09/25/2023 10:58 PM EST LABORATORY [facility] Bilirubin, Urine Negative Negative 09/25/2023 10:58 PM EST [facility] Ketone, Urine Negative Negative mg/dL 09/25/2023 10:58 PM EST LAB[facility]ATORY [facility] Specific [place], Urine 1.011 1.003 - 1.030 09/25/2023 10:58 PM EST LAB[facility]ATORY [facility] Blood, Urine Small(A) Negative 09/25/2023 10:58 PM EST LABORATORY [facility] pH, Urine 6.0 5.0 - 7.5 Units [...] PM EST 09/25/2023 4:07 PM EST Marlon Jina Ibrahim DO LAB URINE ORDERABLES Performing Organization Address City/State/RUST Co de Phone Number [facility]ATORY [facility] [address] [place], [place] [phone] documented in this encounter Visit Diagnoses Diagnosis [...] and were consensually agreed upon. Care Teams Analysis Mgr Relationship Specialty Start Date End Date Marlon Ibrahim DO [address] [place] [address] [place] [phone] PCP - General Internal Medicine 09/11/18 documented as of this encounter
--- OUTSIDE RECORDS SUMMARY | 2023-11-13 21:31 | External Medical Summary ---
Author Name Unknown Address Unknown Organization [id number]:LABORATORY [facility] - [address] [facility] [address] Laboratory Report Ordering Provider Test Date Status JANE WOODRUFF 09/16/2023 10:51:07 Final Observation Date Value Abnormality Reference (Units ) Status SYNC LEUKOCYTES IN BLOOD BY AUTOMATED COUNT 09/16/2023 10:51:07 5.93 4.00-10.80 (K/uL) Final Segs 09/16/2023 10:51:07 60.4 40.0-75.0 (%) Final Lymphs % 09/16/2023 10:51:07 27.8 18.0-42.0 (%) Final Monos 09/16/2023 10:51:07 6.9 1.0-11.0 (%) Final Eosinophils 09/16/2023 10:51:07 3.9 0.0-6.0 (%) Final Basos 09/16/2023 10:51:07 0.8 0.0-2.0 (%) Final Immature Granulocyte, Percent 09/16/2023 10:51:07 0.2 0.0-2.0 (%) Final Absolute Segs 09/16/2023 10:51:07 3.58 1.80-7.70 (K/uL) Final Lymphs, absolute 09/16/2023 10:51:07 1.65 1.00-4.80 (K/ul) Final Monos, Abs 09/16/2023 10:51:07 0.41 0.00-1.10 (K/uL) Final Eos, Abs 09/16/2023 10:51:07 0.23 0.00-0.70 (K/uL) Final Basos, Abs 09/16/2023 10:51:07 0.05 0.00-0.20 (K/uL) Final Immature Granulocytes, Number 09/16/2023 10:51:07 0.01 0.00-0.20 (K/uL) Final Performing Location LABORATORY [facility] [place] - [address] [facility] [address]
--- OUTSIDE RECORDS SUMMARY | 2023-11-13 21:31 | External Medical Summary ---
Author Name Unknown Address Unknown Organization [id number]:LABORATORY [facility] - [facility] [address] [facility] [address] [facility] [address] Laboratory Report Ordering Provider Test Date Status JANE WOODRUFF 09/16/2023 10:51:07 Final Observation Date Value Abnormality Reference (Units ) Status WBC, Total 09/16/2023 10:51:07 5.93 4.00-10.80 (K/uL) Final RBC 09/16/2023 10:51:07 2.79 4.50-5.25 (M/uL) Final Hemoglobin 09/16/2023 10:51:07 8.6 Below low normal 14.0-16.8 (g/dL) Final HCT 09/16/2023 10:51:07 27.3 Below low normal 40.0-48.4 (%) Final MCV 09/16/2023 10:51:07 97.8 82.0-99.5 (fL) Final MCH 09/16/2023 10:51:07 30.8 27.0-34.0 (pg) Final MCHC 09/16/2023 10:51:07 31.5 32.0-36.0 (g/dL) Final RDW 09/16/2023 10:51:07 19.7 11.5-15.5 (%) Final Platelets 09/16/2023 10:51:07 216 140-400 (K/uL) Final MPV 09/16/2023 10:51:07 9.7 6.6-11.1 (fL) Final Nucleated erythrocytes/100 leukocytes [Ratio] in Blood by Automated count 09/16/2023 10:51:07 0 <=0 (/100 WBCs) Final Performing Location LABORATORY [facility] - [address] [facility] [address]
--- OUTSIDE RECORDS SUMMARY | 2023-11-13 21:31 | External Medical Summary ---
Author Name Unknown Address Unknown Organization [id number]:LABORATORY [facility] - [address] [facility] [address] Laboratory Report Ordering Provider Test Date Status ALEXANDRIA MASON 09/25/2023 16:07:42 Final Observation Date Value Abnormality Reference (Units ) Status Color of Urine by Auto 09/25/2023 16:07:42 Yellow Colorless, Light Yellow, Yellow, Dark Yellow Final Clarity, Urine 09/25/2023 16:07:42 Cloudy Abnormal Clear Final Glucose [Mass/volume] in Urine by Automated test strip 09/25/2023 16:07:42 Negative Negative (mg/dL) Final Bilirubin.total [Presence] in Urine by Automated test strip 09/25/2023 16:07:42 Negative Negative Final Ketones [Mass/volume] in Urine by Automated test strip 09/25/2023 16:07:42 Negative Negative (mg/dL) Final Specific gravity, Urine 09/25/2023 16:07:42 1.011 1.003-1.030 Final Hemoglobin [Presence] in Urine by Automated test strip 09/25/2023 16:07:42 Small Abnormal Negative Final pH, Urine 09/25/2023 16:07:42 6.0 5.0-7.5 (Units) Final Protein [Mass/volume] in Urine by Automated test strip 09/25/2023 16:07:42 Trace Abnormal Negative (mg/dL) Final Urobilinogen [Mass/volume] in Urine by Automated test strip 09/25/2023 16:07:42 Normal Normal (mg/dL) Final Nitrite [Presence] in Urine by Automated test strip 09/25/2023 16:07:42 Negative Negative Final Leukocyte esterase [Presence] in Urine by Automated test strip 09/25/2023 16:07:42 Large Abnormal Negative Final RBC, Urine 09/25/2023 16:07:42 10-19 Abnormal 0-2 (/HPF) Final WBC, Urine 09/25/2023 16:07:42 50+ Abnormal 0-2 (/HPF) Final Bacteria [#/area] in Urine sediment by Microscopy high power field 09/25/2023 16:07:42 151-200 Abnormal 0-25 (/HPF) Final Hyaline casts, Urine 09/25/2023 16:07:42 5-9 Abnormal None (/LPF) Final Leukocyte clumps [#/area] in Urine sediment by Microscopy high power field 09/25/2023 16:07:42 Present Abnormal None (/HPF) Final Performing Location LABORATORY [facility] - [address] [facility] [address]
--- OUTSIDE RECORDS SUMMARY | 2023-11-13 21:31 | External Medical Summary | Summary of Care ---
Author Name Unknown Organization [facility] Address [address] [place] [address] Phone [phone] Care Team Providers Care Telecommunications Cable Jointer Name Role Phone Ryan Nancy Muro Primary Care Provider [phone] Reason for Visit * Reason Onset Date Comments Appointment 09/19/2023 Pt needs return to nephro in 3 m. Encounter Details Date Type Department Care Team (Late st Contact Info) Description 09/19/2023 Telephone Nephrology, [facility] [place] [address] [place] [address] Alejandrina Sims MD [address] [place] [address] Appointment (Pt needs return to nephro in ... Allergies No known active allergiesdocumented as of this encounter (statuses as of 09/24/2023) Medications Medication Sig Dispensed Refills Start Date End Date Status MULTIPLE VITAMIN PO TABS 1 TABLET DAILY 0 07/03/2011 Active OMEGA-3 FISH OIL 1000 MG PO CAPS Take one capsule by mouth daily 0 07/03/2011 Active Blood Glucose Monitoring Suppl ([employer]roMaps ULTRA SYSTEM) W/DEVICE KITIndications:DM type 2, goal [...] neuropathy, with long-term current use of insulin ([facility]),Type 2 diabetes mellitus with hemoglobin A1c goal of less than 7.0% ([facility]) Use once a day with [...] neuropathy, with long-term current use of insulin ([facility]) Use TWICE a day to test glucose Diagnosis = E11.9 200 Each 3 03/19/2023 Active Ozempic (2 MG/DOSE) 8 MG/3ML Subcutaneous Solution Pen-injector (Semaglutide (2 MG/DOSE))Indicatio ns:Type 2 diabetes mellitus with diabetic neuropathy, with long-term current use of insulin ([facility]) Inject 2 mg under the [...] the morning. 0 06/04/2023 Active Epoetin Gautam-epbx 95428 UNIT/ML Injection Solution (Retacrit) Inject 2 mL [...] neuropathy, with long-term current use of insulin ([facility]) Inject 20 Units under the [...] as of this encounter (statuses as of 09/24/2023) Active Problems Problem Noted Date Diagnosed Date Venous stasis ulcer of right calf limited [...] kidney disease 08/22/2020 Overview: Per CKD protocol Morbid obesity with BMI of 45.0-49.9, adult 08/12 Overview: Per Obesity protocol - Per Obesity protocol - - 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 with ulcer other part of lower leg (CODE) 08/02/2020 Non-pressure chronic ulcer o f unspecified part of left lower leg with unspecified severity 09/16/2019 Hyperkalemia 06/16/2019 Renal calculi 06/16/2019 Overview: Non-obstructive. Noted on CT scan at [facility] 05/2019 Mild nonproliferative diabet ic retinopathy [...] as of this encounter (statuses as of 09/24/2023) Resolved Problems Problem Noted Date Diagnosed Date Resolved Date Stage 3 chronic kidney disease 08/29/2021 09/27/2021 Chronic kidney disease, stage 3 unspecified 02/08/2021 02/23/2021 Body mass index (BMI) of 50. 0 [...] stasis dermatitis 11/09/2014 Persistent insomnia 06/29/2014 10/04/19 Restless legs syndrome 06/29/201405/15 DVT (deep venous [...] as of this encounter (statuses as of 09/24/2023) Immunizations Name Administration Dates Next Due COVID-19 mRNA, LNP-s, No Pre serve, 2-Dose Series (Hi[employer]) 06/20/2021,10/22/2020,09/26/2020 COVID-19, LNP-s, No Preserve , Jamie-sucrose, Ages 12+ (Hi[employer]oder) 03/13/2022 Covid-19, Mrna, Lnp-s, Pf, B ivalent, 30 Mcg, IM, 12 yrs and above ([employer]) 09/20/2022 Pneumococcal Conjugate Vacci ne, 20-valent ([id number]) 03/14/2022 Pneumococcal Polysaccharide PPV23 (Pneumovax) 03/19/2006 Seasonal [...] encounter Miscellaneous Notes * Telephone Encounter - Kristi Brown OSA - 09/19/2023 2:16 PM EST Please schedule pt for 3 mo appt with Nephrology PA at [facility]. There are no appts until May. documented in this encounter Plan of Treatment Upcoming Encounters Date Type Department Care Team (Latest Contact Info) Description 4 9:25 AM EST Hospital Encounter OR [facility], Operating Room, [facility] - 4th Floor [address] [place] [id number] Jayda Jeong, DO [address] [place] [address] 4 9:25 AM EST - 4 9:57 AM EST Surgery OR [facility], Operating Room, [facility] - 4th Floor [address] [place] [address] Jayda Jeong, [address] [address] ESOPHAGOGASTRODUODENOSCOPY (EGD), FLEXIBLE, TRANSORAL, DIAGNOSTIC 4 10:40 AM EST Laboratory Laboratory [address] [place] [phone] [place], [address] [place] [address] 4 9:00 AM EST Office Visit Cardiology [address] [place] [address] rPabhakar Henning PA-C [address] [place] [address] 4 1:00 PM EST Immunization/In jection Hematology/Onco logy [facility] [address] [place] [address] Nurse, Med [address] [place] [address] 4 1:45 PM EST Office Visit Hematology/Onco logy [facility] [place] [address] [place] [address] Fly Velazquez MD [address] [place] [address] 4 10:00 AM EDT Office Visit Sleep Disorders Ctr [facility] [place] [address] [place] [phone] Dorothy Toscano CRNP [address] [place] [address] 4 2:00 PM EDT Office Visit Ophthalmology, [facility] [place] [address] [place] [address] Mika Diaz DO [address] [place] [address] 4 11:40 AM EDT Office Visit Family Medicine [address] [phone] Marry Hansen [address] [place] [address] 4 2:00 PM EDT Office Visit Nephrology, [facility] 200 [facility] [place] [address] Zemaitis, Beckie Tucker PA-C [address] [place] [address] Scheduled Procedures Name Priority Associated Diagnoses Date/Ti me ESOPHAGOGASTRODUODENOSCOPY ( EGD), FLEXIBLE, TRANSORAL, DIAGNOSTIC Hematemesis, unspecified whether nausea present 09/26/2023 9:25 AM EST COLONOSCOPY FLEXIBLE PROXIMA L DIAGNOSTIC [...] Additional history exists CKD PHOS USE SMARTSET 94518 09/02/202408/13, 09/18/2022, 08/29/2021, Additional history exists CKD HGB USE SMARTSET 44384 09/16/202409/16, 09/16/2023, 09/02/2023, Additional history exists COLONOSCOPY-EVERY [...] this encounter Medical Devices Implanted Type Area Rent Collector Device Identifier Shelf Expiration Date Model / Serial / Lot Envista Hydrophobic Acrylic Intraocular Lens Implanted:Qty: 1 on 12/25/2016 by Raul Neely MD at OR [facility] Right: Eye [employer] 11/09/2018 [id number] / [id number] / [id number] Envista Mx60 +10.0 D Implanted:Qty: 1 on 01/29/2017 by Raul Neely MD at OR [facility] Left: Eye 11/09/2018 [id number] / [id number] / [id number] documented as of this encounter Advance Directives Latest Code Status on File Code Status Date Activated Date Inactivated Comments Full Code 01/29/2017 9:44 AM 01/29/2017 3:56 PM This order reflects the patients wishes and were consensually agreed upon. Code Status History Code Status Date Activated Date Inactivated Comments Full Code 01/24/2017 6:29 AM 01/24/2017 1:29 PM This order reflects the patients wishes and were consensually agreed upon. Full Code 12/25/2016 6:24 AM 12/25/2016 2:09 PM This order reflects the patients wishes and were consensually agreed upon. Care Teams Telecommunications Cable Jointer Relationship Specialty Start Date End Date Nancy Ryan DO [address] [place] [address] [place] [address] PCP - General Internal Medicine 09/11/18 documented as of this encounter
--- OUTSIDE RECORDS SUMMARY | 2023-11-13 21:31 | External Medical Summary | Summary of Care ---
Author Name Unknown Organization [facility] Address [address] [place] [address] Phone [phone] Care Team Providers Care Enrobing Machine Corder Name Role Phone Nancy Ryan DO Primary Care Provider Reason for Visit * Reason Comments Re-Check Pt denies any concer ns. Encounter Details Date Type Department Care Team (Late st Contact Info) Description 09/20/2023 8:50 AM EST Office Visit Family Medicine [address] [place] [phone] Nancy Ryan DO [address] [place] [address] [place] [address] HTN, goal below 140/90*; Venous stasis ulcer of right calf limited to breakdown of skin, unspecified whether varicose veins present (HCC); Chronic right-sided heart failure (HCC); Obesity, morbid (more than 100 lbs over ideal weight or BMI > 40) ([facility]); Stage 3a chronic kidney disease Allergies No known active allergiesdocumented as of this encounter (statuses as of 09/20/2023) Medications Medication Sig Dispensed Refills Start Date End Date Status MULTIPLE VITAMIN PO TABS 1 TABLET DAILY 0 1 Active OMEGA-3 FISH OIL 1000 MG PO CAPS Take one capsule by mouth daily 0 1 Active Blood Glucose Monitoring Suppl ([employer] ULTRA SYSTEM) W/DEVICE KITIndications:D M type 2, [...] the morning. 0 3 Active Epoetin Gautam-epbx 64029 UNIT/ML Injection Solution (Retacrit) Inject 2 mL [...] Solostar 100 UNIT/ML Subcutaneous Solution Pen-injector (Flavia Ashraf)Indicati ons:Type 2 diabetes mellitus with diabetic [...] 90 Tablet 1 4 024 Discontinued(Re fill) Hospital, Clinic, or Other [...] as of this encounter (statuses as of 09/20/2023) Active Problems Problem Noted Date Diagnosed Date [...] Morbid obesity with BMI of 45.0-49.9, adult 01/1 08/2020 Overview: Per Obesity protocol - Per Obesity protocol - - 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 with ulcer other part of lower leg (CODE) 08/02/2020 Non-pressure chronic ulcer o f unspecified part of left lower leg with unspecified severity 09/16/2019 Hyperkalemia 06/16/2019 Renal calculi 06/16/2019 Overview: Non-obstructive. Noted on CT scan at [facility] 05/2019 Mild nonproliferative diabet ic retinopathy of [...] as of this encounter (statuses as of 09/20/2023) Resolved Problems Problem Noted Date Diagnosed Date [...] Obesity Taxonomy 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 of inactive term supervisor intermediates current use of ant icoagulant therapy 03/16/2005 [...] as of this encounter (statuses as of 09/20/2023) Immunizations Name Administration Dates Next Due COVID-19 mRNA, LNP-s, No Pre serve, 2-Dose Series (Pfizer) 06/20/2021,10/22/2020,09/26/2020 COVID-19, LNP-s, No Preserve , Jamie-sucrose, Ages 12+ (Pfizer) 03/13/2022 Covid-19, Mrna, Lnp-s, Pf, B ivalent, 30 Mcg, IM, 12 yrs and above (Pfizer) 09/20/2022 Pneumococcal Conjugate Vacci ne, 20-valent ([id number]) 03/14/2022 Pneumococcal Polysaccharide PPV23 (Pneumovax) 03/19/2006 Seasonal [...] Sign Reading Time Taken Comments Blood Pressure 138/70 09/20/2023 9:01 AM EST Pulse 88 09/20/2023 9:01 AM EST Temperature 36.9 C (98.5 F) 09/20/2023 9:01 AM ES T Respiratory Rate - - Oxygen Saturation 98% 09/20/2023 9:01 AM EST Inhaled Oxygen Concentration - - Weight 145.2 kg (320 lb) 09/20/2023 9:01 AM EST Height - - Body Mass Index 44.63 09/17/2023 10:02 AM EST documented in this encounter Progress Notes * Nancy Ryan, DO - 09/20/2023 9:05 AM EST Subjective: Ronnie Wu is a 68 year old male. Chief Complaint Patient presents with Re-Check Pt denies any concerns. HPI: Ronnie Wu presents today for routine follow up. He had his blood pressure monitor checked yesterday at nephrology and he is now able to monitor hisblood pressure at home on this cuff. He also has home health coming in once a week. The legs continue to heal. I reviewed pictures of his legs today. Left leg is healing better than the right, but both are making progress. He feels the zinc hurt less than the silver does. He uses his leg pumps twice. He could put up with the silver if he had to. He is going to have his EGD next week. I would like him to continue his PPI until after the endoscopy. He continues to follow with hematology for his shots. He will see cardiology soon. He has been weaning up his Ozempic back to his normal dose, but he has to hold it prior to his endoscopy. BS this morning was 124. PMH: Patient Active Problem List Diagnosis Code SPENCER (obstructive sleep apnea) G47.33 long-term current use of anticoagulant therapy Z79.01 Type 2 diabetes mellitus with diabetic neuropathy, with long-term current use of insulin (HCC) E11.40, Z79.4 Gout of wrist M10.9 Venous insufficiency I87.2 Vitamin B12 deficiency E53.8 Dyslipidemia, goal LDL below 100 E78.5 Venous stasis dermatitis of both lower extremities I87.2 DM neuropathy, type II diabetes mellitus ([facility]) E11.40 History of DVT (deep vein thrombosis) Z86.718 Venous stasis ulcer of calf ([facility]) I83.002, L97.209 H/O amputation of lesser toe, unspecified laterality ([facility]) Z89.429 HTN, goal below 130/80 I10 Iron deficiency anemia due to chronic blood loss D50.0 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 associated with type 2diabetes mellitus ([facility]) E11.3292 Hyperkalemia E87.5 Renal calculi N20.0 Non-pressure chronic ulcer of unspecified part of left lower leg with unspecified severity ([facility]) L97.929 Varicose veins of right lower extremity with ulcer other part of lower leg (CODE) ([facility]) I83.018 Stage 3a chronic kidney disease N18.31 Morbid obesity with BMI of 45.0-49.9, adult ([facility]) E66.01, Z68.42 Non-pressure chronic ulcer of unspecified part of right lower leg with unspecified severity ([facility]) L97.919 Acute gout due to renal impairment involving right wrist M10.331 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 Carpal tunnel syndrome of right wrist G56.01 Chronic right-sided heart failure ([facility]) I50.812 Other specified peripheral vascular diseases ([facility]) I73.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, multiple sites, without tophus (tophi) M1A.39X0 Tubular adenoma D36.9 History of adenomatous polyp of colon Z86.010 Non-pressure chronic ulcer of lower leg, limited to breakdown of skin ([facility]) L97.901 Chronic venous hypertension (idiopathic) with ulcer of bilateral lower extremity (CODE) ([facility]) I87.313 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 ([facility]) E11.3593 Anemia due to stage 3a chronic kidney disease ([facility]) N18.31, D63.1 Current Outpatient Medications Medication Sig Dispense Refill MULTIPLE VITAMIN PO TABS 1 TABLET DAILY 0 OMEGA-3 FISH OIL 1000 MG PO CAPS Take one capsule by mouth daily 0 Blood Glucose Monitoring Suppl ([employer] ULTRA SYSTEM) W/DEVICE KIT Use as directed [...] MOUTH TWICE A DAY WITH BREAKFAST AND [id number] Tablet 3 Acetic Acid 0.25 % Irrigation Solution Apply to legs as directed by the wound clinic. 1000 mL 2 [employer] Verio In Vitro Strip (Glucose Blood) Use to test blood sugars twice a day. Dx. E11.9 300 Strip 1 Gaia Power TechnologiesTouch Delica Lancets 30G Use TWICE a day to test glucose Diagnosis = E11.9 200 Each 3 Ozempic (2 MG/DOSE) 8 MG/3ML Subcutaneous Solution Pen-injector (Semaglutide (2 MG/DOSE)) Inject 2 mg under the skin once a week. DX E11.9 Diabetes Mellitus 3 mL 5 Allopurinol 100 MG Oral [...] with morning andevening meals. 180 Tablet 3 Sodium Bicarbonate 650 MG Oral Tablet Take 2 Tablets by mouth in the morning and 2 Tablets at noon and 2 Tablets in the evening and 2 Tablets before bedtime. 60 Tablet 5 Losartan Potassium 50 MG Oral Tablet (Cozaar) Take 0.5 Tablets by mouth in the morning. Epoetin Gautam-epbx 30852 UNIT/ML Injection Solution (Retacrit) Inject 2 mL [...] Glargine Solostar 100 UNIT/ML Subcutaneous Solution Pen-injector (Stipple KwikPen) Inject 20 Units under the skin in the morning. Current Facility-Administered Medications Medication Dose Route Frequency Provider Last Rate Last Admin bevaCIZumab (Avastin) inj 1.25 mg 1.25 mg Intravitreal PRN Mika Diaz, DO 1.25 mg at 06/13/23 1143 ROPivacaine (Naropin) inj 1.5 mg 1.5 mg Perineural PRN Mika Diaz, DO 1.5 mg at 144 Review of patient's allergies indicates: No Known Allergies Objective: BP 138/70 | Pulse 88 | Temp 36.9 C (98.5 F) | Wt (!) 145.2 kg (320 lb) | SpO2 98% | BMI 44.63 kg/m | BSA 2.7 m General: alert, healthy, no distress, well nourished, and well developed Neck: supple, no adenopathy, thyroid normal size, non-tender, without nodularity Heart: regular rate & rhythm and no murmur Lungs: chest symmetric with normal AP diameter, no chest deformities noted, normal respiratory rateand rhythm, lungs clear to auscultation Abdomen: abdomen soft, non-tender, and obese Extremities: legs are wrapped today but I reviewed pictures on his phone from yesterday when the dressings were changed. Neuro Exam: alert & oriented x 3 with fluent speech, no focal motor/sensory deficits, gait normal Skin: skin color, texture, turgor are normal, no rashes or significant lesions ASSESSMENT/PLAN: HTN, goal below 140/90 (Primary) - improved. His BP cuff was validated at his appointment yesterdaywith nephrology. Venous stasis ulcer of right calf limited to breakdown of skin, unspecified whether varicose veins present (HCC) - currently using Aquaphor with zinc. He has discomfort with this but his legs are healing well. Chronic right-sided heart failure (HCC) - stable. Obesity, morbid (more than 100 lbs over ideal weight or BMI > 40) ([facility]) - weight continues to trend down. Stage 3a chronic kidney disease - stable. Other orders - continue PPI until we see the results of the endoscopy. - Pantoprazole Sodium 40 MG Oral Tablet Delayed Release (Protonix); Take 1 Tablet by mouth in the morning. Check-out note: 3 months with Marry and 6 months with . Nancy Ryan DO documented in this encounter Plan of Treatment Upcoming Encounters Date Type Department Care Team (Latest Contact Info) Description 4 10:38 AM EST Hospital Encounter OR [facility], Operating Room, [facility] - 4th Floor [address] [place] [address] Jayda Jeong DO [address] [place] [address] 4 10:38 AM EST - 4 11:10 AM EST Surgery OR [facility], Operating Room, [facility] - 4th Floor [address] [place] [address] Jayda Jeong DO [address] [place] [address] ESOPHAGOGASTRODUODENOSCOPY (EGD), FLEXIBLE, TRANSORAL, DIAGNOSTIC 4 10:40 AM EST Laboratory Laboratory [address] [place] [phone] [address] [place] [address] 4 9:00 AM EST Office Visit Cardiology [address] [place] [address] Prabhakar Henning PA-C [address] [place] [address] 4 1:00 PM EST Immunization/In jection Hematology/[facility]co logy [facility] [address] Nurse, Med 4 200 [facility] [place] [address] 4 1:45 PM EST Office Visit Hematology/Onco logy [facility] 200 [facility] [place] [address] Fly Velazquez MD 200 [facility] [place] [address] 4 10:00 AM EDT Office Visit Sleep Disorders [facility] [address] [place] [phone] Dorothy Toscano CRNP [address] [place] [address] 4 2:00 PM EDT Office Visit Ophthalmology, [facility] [address] [place] [address] Mika Diaz, DO [address] [place] [address] 4 11:40 AM EDT Office Visit Family Medicine [address] [place] [phone] Marry Hansen CRNP [address] [place] [address] [place] [address] 4 2:00 PM EDT Office Visit Nephrology, [facility] 200 [place] [address] Zemaitis, Beckie Tucker PA-C [address] [place] [address] Scheduled Procedures Name Priority Associated Diagnoses Date/Ti me ESOPHAGOGASTRODUODENOSCOPY ( EGD), FLEXIBLE, TRANSORAL, DIAGNOSTIC Hematemesis, unspecified whether nausea present 09/26/2023 10:38 AM EST COLONOSCOPY FLEXIBLE PROXIMA L DIAGNOSTIC [...] Additional history exists CKD PHOS USE SMARTSET 25867 09/02/202408/13, 09/18/2022, 08/29/2021, Additional history exists CKD HGB USE SMARTSET 25756 09/16/202409/16, 09/16/2023, 09/02/2023, Additional history exists COLONOSCOPY-EVERY [...] this encounter Medical Devices Implanted Type Area Adult Daycare Coordinator Device Identifier Shelf Expiration Date Model / Serial / Lot Envista Hydrophobic Acrylic Intraocular Lens Implanted:Qty: 1 on 12/25/2016 by Raul Neely MD at OR [facility] Right: Eye [employer] 11/09/2018 [id number] / [id number] / [id number] Envista Mx60 +10.0 D Implanted:Qty: 1 on 01/29/2017 by Raul Neely MD at OR [facility] Left: Eye 11/09/2018 [id number] / [id number] / [id number] documented as of this encounter Visit Diagnoses Diagnosis HTN, goal below 140/90- Primary Unspecified essential hypertension Venous stasis ulcer of right calf limited to breakdown of skin, unspecified whether varicose veins present (HCC) Chronic right-sided heart failure (HCC) Congestive heart failure, unspecified Obesity, morbid (more than 100 lbs over ideal weight or BMI > 40) (HCC) Morbid obesity Stage 3a chronic kidney disease Hematemesis, unspecified whether nausea present documented in this encounter Advance Directives Latest [...] and were consensually agreed upon. Care Teams Enrobing Machine Corder Relationship Specialty Start Date End Date Nancy Ryan DO [address] [place] [address] [place] [phone] PCP - General Internal Medicine 09/11/18 documented as of this encounter"
--- OUTSIDE RECORDS SUMMARY | 2023-11-13 21:31 | External Medical Summary | Summary of Care ---
Author Name Unknown Organization [facility] Address [address] [place] [address] Phone [phone] Care Team Providers Care Systems Librarian Name Role Phone Nancy Ryan DO Primary Care Provider Reason for Visit * Reason Onset Date Comments Home Health 09/25/2023 Encounter Details Date Type Department Care Team (Late st Contact Info) Description 09/25/2023 Telephone Family Medicine [address] [phone] Nancy Ryan DO [address] [place] [address] [place] [address] Home Health Allergies No known active allergiesdocumented as of this encounter (statuses as of 09/25/2023) Medications Medication Sig Dispensed Refills Start Date End Date Status MULTIPLE VITAMIN PO TABS 1 TABLET DAILY 0 07/03/2011 Active OMEGA-3 FISH OIL 1000 MG PO CAPS Take one capsule by mouth daily 0 07/03/2011 Active Blood Glucose Monitoring Suppl (Panaya ULTRA SYSTEM) W/DEVICE KITIndications:DM type 2, goal [...] long-term current use of insulin ([facility]),Type 2 diabetes mellitus with hemoglobin [...] long-term current use of insulin ([facility]) Use TWICE a day to test glucose Diagnosis = E11.9 200 Each 3 03/19/2023 Active Ozempic (2 MG/DOSE) 8 MG/3ML Subcutaneous Solution Pen-injector (Semaglutide (2 MG/DOSE))Indicatio ns:Type 2 diabetes mellitus with diabetic neuropathy, with long-term current use of insulin ([facility]) Inject 2 mg under the [...] the morning. 0 06/04/2023 Active Epoetin Gautam-epbx 63734 UNIT/ML Injection Solution (Retacrit) Inject 2 mL [...] long-term current use of insulin ([facility]) Inject 20 Units under the [...] as of this encounter (statuses as of 09/25/2023) Active Problems Problem Noted Date Diagnosed Date [...] Overview: Non-obstructive. Noted on CT scan at [facility] 05/2019 Mild nonproliferative diabet ic retinopathy of [...] as of this encounter (statuses as of 09/25/2023) Resolved Problems Problem Noted Date Diagnosed Date [...] Obesity Taxonomy 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 of inactive term USP current use of ant icoagulant therapy 03/16/2005 [...] as of this encounter (statuses as of 09/25/2023) Immunizations Name Administration Dates Next Due COVID-19 mRNA, LNP-s, No Pre serve, 2-Dose Series ([employer]ometric[employer]) 06/20/2021,10/22/2020,09/26/2020 COVID-19, LNP-s, No Preserve , Jamie-sucrose, Ages 12+ ([employer]s) 03/13/2022 Covid-19, Mrna, Lnp-s, Pf, B ivalent, 30 Mcg, IM, 12 yrs and above ([employer]ometrics) 09/20/2022 Pneumococcal Conjugate Vacci ne, 20-valent ([id number]) 03/14/2022 Pneumococcal Polysaccharide PPV23 (Pneumovax) 03/19/2006 Seasonal [...] LPN - 09/25/2023 3:36 PM EST [facility] make aware * Telephone Encounter - Britney Griffith LPN - 09/25/2023 3:23 PM EST I tried to call Bridgette. Faxed order to [facility]. I also called pt to [...] 09/25/2023 11:53 AM EST HH Concerns Bridgette VARMA, Calling from: Rafat Marion Report/Concerns of: wound discomfort Symptoms: stinging with aquacel Vitals: T 97 P 83 RR 18 BP 128/78 SP O2 98 Lung sounds clear Weight n/a Blood sugar 166 Narrative: Bridgette, calling from [facility]. Since the aquacel stings on the patients [...] Bridgette with any advice or orders at [phone] Please fax new orders to [phone] documented in this encounter Plan of Treatment Upcoming Encounters Date Type Department Care Team (Latest Contact Info) Description 4 9:25 AM EST Hospital Encounter OR [facility], Operating Room, [facility] - 4th Floor [address] [place] [address] Jayda Jeong, DO [address] [place] [address] 4 9:25 AM EST - 4 9:57 AM EST Surgery OR [facility], Operating Room, [facility] - 4th Floor [address] [place] [address] Jayda Jeong, [address] [place] [address] ESOPHAGOGASTRODUODENOSCOPY (EGD), FLEXIBLE, TRANSORAL, DIAGNOSTIC 4 10:40 AM EST Laboratory Laboratory [address] [place] [phone] [place] [address] 4 9:00 AM EST Office Visit Cardiology [address] [place] [address] Prabhakar Henning PA-C [address] [place] [address] 4 1:00 PM EST Immunization/In jection Hematology/Onco logy [facility] [place] [address] [place] [address] Nurse, Med [address] [place] [address] 4 1:45 PM EST Office Visit Hematology/Onco logy [facility] [place] [address] [place] [address] Fly Velazquez MD [address] [place] [address] 4 10:00 AM EDT Office Visit Sleep Disorders Ctr [facility] [address] [facility] [address] Dorothy Toscano CRNP [address] [place] [address] 4 2:00 PM EDT Office Visit Ophthalmology, [facility] [place] [place] [address] Mika Diaz DO [address] [place] [address] 4 11:40 AM EDT Office Visit Family Medicine [address] [phone] Marry Hansen [address] [address] 4 2:00 PM EDT Office Visit Nephrology, [facility] [place] [address] Zemaitis, Beckie Tucker PA-C [facility] [place] [address] Scheduled Orders Name Type Priority Associated Diagnoses Orde r Schedule URINALYSIS, REFLEX TO MICROSCOPIC Lab Routine Dysuria Expected: 09/25/2023, Expires: 09/25/2024 CULTURE, URINE, QUANTITATIVE Lab Routine Dysuria Expected: 09/25/2023 (Approximate), Expires: 09/25/2024 Scheduled Procedures Name Priority Associated Diagnoses Date/Ti [...] Additional history exists CKD PHOS USE SMARTSET 59715 09/02/202408/13, 09/18/2022, 08/29/2021, Additional history exists CKD HGB USE SMARTSET 02699 09/16/202409/16, 09/16/2023, 09/02/2023, Additional history exists COLONOSCOPY-EVERY [...] this encounter Medical Devices Implanted Type Area News Gathering Technician Device Identifier Shelf Expiration Date Model / Serial / Lot Envista Hydrophobic Acrylic Intraocular Lens Implanted:Qty: 1 on 12/25/2016 by Raul Neely MD at OR [facility] Right: Eye [employer] 11/09/2018 [id number] / [id number] / [id number] Envista Mx60 +10.0 D Implanted:Qty: 1 on 01/29/2017 by Raul Neely MD at OR [facility] Left: Eye 11/09/2018 [id number] / [id number] documented as of this encounter Visit Diagnoses Diagnosis Dysuria- Primary Hematemesis, unspecified whether nausea present documented in [...] and were consensually agreed upon. Care Teams Systems Librarian Relationship Specialty Start Date End Date Nancy Ryan DO [address] [place] [address] [place] [phone] PCP - General Internal Medicine 09/11/18 documented as of this encounter
--- OUTSIDE RECORDS SUMMARY | 2023-11-13 21:31 | External Medical Summary | Summary of Care ---
Author Name Unknown Organization [facility] Address [address] [place] [address] Phone [phone] Care Team Providers Care Beauty Culturist Apprentice Name Role Phone Nancy Ryan DO Primary Care Provider [phone] Reason for Visit * Reason Comments Outpatient Testing Encounter Details Date Type Department Care Team (Late st Contact Info) Description 09/16/2023 10:40 AM EST Laboratory Laboratory [address] [place] [phone] [address] [place] [address] Anemia due to stage 3a chronic kidney disease (HCC) Allergies No known active allergiesdocumented as of this encounter (statuses as of 09/16/2023) Medications Medication Sig Dispensed Refills Start Date End Date Status MULTIPLE VITAMIN PO TABS 1 TABLET DAILY 0 07/03/2011 Active OMEGA-3 FISH OIL 1000 MG PO CAPS Take one capsule by mouth daily 0 07/03/2011 Active Blood Glucose Monitoring Suppl ([employer] ULTRA SYSTEM) W/DEVICE KITIndications:DM type 2, goal [...] with long-term current use of insulin ([facility]),Type 2 diabetes mellitus with hemoglobin A1c goal of less than 7.0% ([facility]) Use once a day with [...] AND DINNER 180 Tablet 3 12/10/2022 Active Acetic Acid 0.25 % Irrigation Solution Apply to legs as directed by the wound clinic. 1000 mL 2 03/01/2023 Active OneTouch Verio In Vitro Strip (Glucose Blood) Use to test blood sugars twice a day. Dx. E11.9 300 Strip 1 03/13/2023 Active OneTouch Delica Lancets 30GIndications:Typ e 2 diabetes mellitus with diabetic neuropathy, with long-term current use of insulin ([facility]) Use TWICE a day to test glucose Diagnosis = E11.9 200 Each 3 03/19/2023 Active Ozempic (2 MG/DOSE) 8 MG/3ML Subcutaneous Solution Pen-injector (Semaglutide (2 MG/DOSE))Indicatio ns:Type 2 diabetes mellitus with diabetic neuropathy, with long-term current use of insulin ([facility]) Inject 2 mg under the skin once a week. DX E11.9 Diabetes Mellitus 3 mL 5 03/26/2023 Active Additional Information Patient not taking.Reported on 09/04/2023 Allopurinol 100 MG Oral Tablet (Zyloprim)Indicati ons:Acute [...] with long-term current use of insulin ([facility]) Take 1 Tablet by mouth 2 times a day with morning and evening meals. 180 Tablet 3 05/17/2023 Active Sodium Bicarbonate 650 MG Oral Tablet Take 2 Tablets by mouth in the morning and 2 Tablets at noon and 2 Tablets in the evening and 2 Tablets before bedtime. 60 Tablet 5 06/04/2023 Active Additional Information Patient not taking.Reported on 09/04/2023 Losartan Potassium 50 MG Oral Tablet (Cozaar) Take 0.5 Tablets by mouth in the morning. 0 06/04/2023 Active Epoetin Gautam-epbx 65713 UNIT/ML Injection Solution (Retacrit) Inject 2 mL [...] THE MORNING 90 Tablet 3 08/15/2023 Active Pantoprazole Sodium 40 MG Oral Tablet Delayed Release (Protonix) Take 1 Tablet by mouth in the morning. 90 Tablet 1 09/04/2023 Active Insulin Glargine Solostar 100 UNIT/ML Subcutaneous Solution Pen-injector (Basaglar KwikHuan)Indication s:Type 2 diabetes mellitus with diabetic neuropathy, with long-term current use of insulin ([facility]) Inject 20 Units under [...] as of this encounter (statuses as of 09/16/2023) Active Problems Problem Noted Date Diagnosed Date [...] Non-obstructive. 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 AHP Gout of wrist documented as of this encounter (statuses as of 09/16/2023) Resolved Problems Problem Noted Date Diagnosed Date [...] Obesity Taxonomy 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 of inactive term OBESITY, UNSPECIFIED [...] as of this encounter (statuses as of 09/16/2023) Immunizations Name Administration Dates Next Due COVID-19 mRNA, LNP-s, No Pre serve, 2-Dose Series (Live[employer]book) 06/20/2021,10/22/2020,09/26/2020 COVID-19, LNP-s, No Preserve , Jamie-sucrose, Ages 12+ (Pfizer) 03/13/2022 Covid-19, Mrna, Lnp-s, Pf, B ivalent, 30 Mcg, IM, 12 yrs and above ([employer]book) 09/20/2022 Pneumococcal Conjugate Vacci ne, 20-valent ([id number]) 03/14/2022 Pneumococcal Polysaccharide PPV23 (Pneumovax) 03/19/2006 Seasonal [...] Care Team (Latest Contact Info) Description 4 1:00 PM EST Immunization/In jection Hematology/Onco logy [place], [place] [address] [place] [address] Nurse, Med [address] [place] [address] 4 1:00 PM EST Office Visit Nephrology [address] [place] [address] Alejandrina Sims MD [address] [facility] [place] [address] 4 8:50 AM EST Office Visit Family Medicine [address] [place] [phone] [address] [place] [address] 4 11:19 AM EST Hospital Encounter OR [facility], Operating Room, [facility] - 4th Floor [address] [facility] [place] [address] Jayda Jeong, DO [address] [place] [address] 4 11:19 AM EST - 4 11:51 AM EST Surgery OR [facility], Operating Room, [facility] - 4th Floor [address] [facility] [place] [address] Jayda Jeong, DO [address] [place] [address] ESOPHAGOGASTRODUODENOSCOPY (EGD), FLEXIBLE, TRANSORAL, DIAGNOSTIC 4 10:40 AM EST Laboratory Laboratory [address] [place] [phone] [place], Lab [address] [place] [address] 4 9:00 AM EST Office Visit Cardiology [address] [place] [address] Prabhakar Henning PA-C [address] [place] [address] 4 1:00 PM EST Immunization/In jection Hematology/Onco logy [facility] 200 [facility] [place] [address] Nurse, Med 4 200 [facility] [place] [address] 4 1:45 PM EST Office Visit Hematology/Onco logy [facility] [place] [address] [facility] [place] [address] Fly Velazquez MD 200 [facility] [place] [address] 4 10:00 AM EDT Office Visit Sleep Disorders Ctr [facility] [address] [facility] [place] [phone] Dorothy Toscano CRNP [address] [place] [address] 4 2:00 PM EDT Office Visit Ophthalmology, [facility] [address] [facility] [place] [address] Mika Diaz DO [address] [place] [address] 4 2:00 PM EDT Office Visit Nephrology, [facility] 200 [facility] [place] [address] ZeBeckie cruz PA-C 200 [facility] [place] [address] Pending Results Name Type Priority Associated Diagnoses Date /Time CBC WITH WBC DIFFERENTIAL Lab STAT Anemia due to stage 3a chronic kidney disease (HCC) 09/16/2023 10:51 AM EST CBC Lab STAT Anemia due to stage 3a chronic kidney disease (HCC) 09/16/2023 10:51 AM EST DIFFERENTIAL, AUTOMATED Lab STAT Anemia due to stage 3a chronic kidney disease (HCC) 09/16/2023 10:51 AM EST Scheduled Procedures Name Priority Associated Diagnoses Date/Ti me ESOPHAGOGASTRODUODENOSCOPY ( EGD), FLEXIBLE, TRANSORAL, DIAGNOSTIC Hematemesis, unspecified whether nausea present 09/26/2023 11:19 AM EST COLONOSCOPY FLEXIBLE PROXIMA L DIAGNOSTIC Recall History of colon polyps Health Maintenance Due Date Last Done Comments Hepatitis B (1 of 3 - Risk 3-dose series) 2017 Depression Screening 01/28/2021 01/29/2020 DXA Scan 12/14/2022 12/14/2021 Diabetic Foot Exam 03/14/2023 03/14/2022, 0 11/30/2015, 11/09/2014, Additional history exists COVID-19 Vaccine ( season) 2023 09/20/2022, 03/13/2022, 06/20/2021, Additional history exists Diabetic Eye Exam 10/09/2023 10/09/2022, , 06/12/2022, Additional history exists HbA1c 01/14/2024 07/15/2023, 08/0 03/2023, 09/18/2022, Additional history exists Albumin/Creatinine Ratio 02/20/2024 023, 03/14/2022, 05/19/2021, Additional history exists GFR 03/02/2024 09/02/2023, 08/12, 07/29/2023, Additional history exists CKD HGB USE SMARTSET 25120 09/02/202409/02, 09/02/2023, 08/23/2023, Additional history exists CKD PHOS USE SMARTSET 99083 09/02/202408/13, 09/18/2022, 08/29/2021, Additional history exists COLONOSCOPY-EVERY 5 YRS AGES 18-100 02/09/2027 02/09/2022, 09/11/2018, 12/07/2008 Lipid Panel 02/11/2028 02/10/2023, 08/0 10/2021, 05/19/2021, Additional history exists DTaP,Tdap,and Td Vaccines (3 - Td or [...] this encounter Medical Devices Implanted Type Area Caster Investment Casting Device Identifier Shelf Expiration Date Model / Serial / Lot Envista Hydrophobic Acrylic Intraocular Lens Implanted:Qty: 1 on 12/25/2016 by Raul Neely MD at OR [facility] Right: Eye [employer] 11/09/2018 [id number] / [id number] / [id number] Envista Mx60 +10.0 D Implanted:Qty: 1 on 01/29/2017 by Raul Neely MD at OR [facility] Left: Eye 11/09/2018 [id number] / [id number] / [id number] documented as of this encounter Visit Diagnoses Diagnosis Anemia due to stage 3a chronic kidney disease (HCC) Hematemesis, unspecified whether nausea present documented in [...] and were consensually agreed upon. Care Teams Beauty Culturist Apprentice Relationship Specialty Start Date End Date Nancy Ryan DO [address] [place] [address] [place] [address] PCP - General Internal Medicine 09/11/18 documented as of this encounter
--- OUTSIDE RECORDS SUMMARY | 2023-11-13 21:31 | External Medical Summary ---
Author Name Unknown Address Unknown Organization K01:[facility] [place] [address] [facility] [address] Laboratory Report Ordering Provider Test Date Status ALEXANDRIA MASON 09/25/2023 16:07:42 Final <10,000 colonies/ml mixed no rmal justin Observation Date Value Abnormality Reference (Units ) Status Bacteria identified in Specimen by Culture 09/25/2023 16:07:42 [id number]^ESCHE RICHIA COLI Abnormal Final >100,000 colonies/mL Escheri marycruz coli Performing Location [facility] [place] [address] [place] [address] Ordering Provider Test Date Status ALEXANDRIA MASON 09/25/2023 16:07:42 Final Observation Date Value Abnormality Reference (Units ) Status Ampicillin 09/25/2023 16:07:42 >=32 Resistant Final Ampicillin + Sulbactam 09/25/2023 16:07:42 16 Intermediate Final Cefazolin 09/25/2023 16:07:42 <=4 Susceptible Final Cefepime susceptibility 09/25/2023 16:07:42 <=1 Susceptible Final Ceftriaxone suceptibility 09/25/2023 16:07:42 <=1 Susceptible Final Ciprofloxacin 09/25/2023 16:07:42 <=0.25 Susceptible Final Due to serious side effects, the FDA has advised against using Ciprofloxacin to treat uncomplicated UTIs and respiratory tract infections unless there are no alternative treatment options. Gentamicin susceptibility 09/25/2023 16:07:42 <=1 Susc eptible Final Nitrofurantoin susceptibility 09/25/2023 16:07:42 <=16 Susceptible Final Piperacillin + Tazobactamsusceptibility 09/25/2023 16:07:42 <=4 Susceptible Final TMP-SMZ susceptibility 09/25/2023 16:07:42 <=20 Suscept ible Final Test: Culture, Urine, Quanti tative
Specimen Source: Urine, Clean Catch
Specimen Type: Urine
Specimen Date: 09/25/2023 4:07 PM
Result Date: 09/27/2023 7:27 AM
Result Status: Final result
Abnormal: Yes
Resulting Lab: [facility] [place]
[address]
[facility] [address]

CULTURE

>100,000 colonies/mL Escherichia coli (Abnormal)

<10,000 colonies/ml mixed normal justin

SUSCEPTIBILITY

Escherichia coli
METHOD MICROBROTH DILUTIONS

AMPICILLIN >=32 Resistant
AMPICILLIN/SULBACTAM 16 Intermediate
CEFAZOLIN <=4 Susceptible
CEFEPIME <=1 Susceptible
CEFTRIAXONE <=1 Susceptible
CIPROFLOXACIN <=0.25 Susceptible
GENTAMICIN <=1 Susceptible
NITROFURANTOIN <=16 Susceptible
PIPERACILLIN TAZOBACTAM <=4 Susceptible
TRIMETH/SULFAMETHOXAZOLE <=20 Susceptible

null Performing Location [facility] [place] [address] [facility] [address]
--- OUTSIDE RECORDS SUMMARY | 2023-11-13 21:31 | External Medical Summary | Summary of Care ---
Author Name Unknown Organization [facility] Address [address] [place] [address] Phone [phone] Care Team Providers Care Mortgage Collector Name Role Phone Nancy Ryan DO Primary Care Provider Reason for Visit * Reason Comments Outpatient Testing Encounter Details Date Type Department Care Team (Late st Contact Info) Description 09/16/2023 10:40 AM EST Laboratory Laboratory [address] [place] [phone] [address] [place] [address] Anemia due to stage 3a chronic kidney disease (HCC) Allergies No known active allergiesdocumented as of this encounter (statuses as of 09/16/2023) Medications Medication Sig Dispensed Refills Start Date End Date Status MULTIPLE VITAMIN PO TABS 1 TABLET DAILY 0 07/03/2011 Active OMEGA-3 FISH OIL 1000 MG PO CAPS Take one capsule by mouth daily 0 07/03/2011 Active Blood Glucose Monitoring Suppl ([employer] ULTRA SYSTEM) W/DEVICE KITIndications:DM type 2, goal [...] hemoglobin A1c goal of less than 7.0% ([facility]) Use once a day with basaglar. DX [...] insulin ([facility]) Take 1 Tablet by mouth 2 times [...] the morning. 0 06/04/2023 Active Epoetin Gautam-epbx 72310 UNIT/ML Injection Solution (Retacrit) Inject 2 mL [...] Overview: Non-obstructive. Noted on CT scan at [facility] 05/2019 Mild nonproliferative diabet ic retinopathy [...] Diabetes Taxonomy. 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 0 03/16/2005 [...] mRNA, LNP-s, No Pre serve, 2-Dose Series ([employer]) 06/20/2021,10/22/2020,09/26/2020 COVID-19, LNP-s, No Preserve , Jamie-sucrose, Ages 12+ (Pfizer) 03/13/2022 Covid-19, Mrna, Lnp-s, Pf, B ivalent, 30 Mcg, IM, 12 yrs and above ([employer]) 09/20/2022 Pneumococcal Conjugate Vacci ne, 20-valent ([id number]) 03/14/2022 Pneumococcal Polysaccharide PPV23 (Pneumovax) 03/19/2006 Seasonal [...] PM EST Immunization/In jection Hematology/Onco logy Treatment, [place] [address] [place] [address] Nurse, Med [address] [place] [address] 4 1:00 PM EST Office Visit Nephrology [address] [place] [address] Alejandrina Sims MD 200 [facility] [place] [address] 4 8:50 AM EST Office Visit Family Medicine [address] [place] [phone] [address] [place] [address] 4 11:19 AM EST Hospital Encounter OR [facility], Operating Room, [facility] - 4th Floor [address] [facility] [place] [address] Jayda Jeong, DO [address] [place] [address] 4 11:19 AM EST - 4 11:51 AM EST Surgery OR [facility], Operating Room, [facility] - 4th Floor 400 [facility] [place] [address] Jayda Jeong, DO [address] [place] [address] ESOPHAGOGASTRODUODENOSCOPY (EGD), FLEXIBLE, TRANSORAL, DIAGNOSTIC 4 10:40 AM EST Laboratory Laboratory [address] [place] [phone] [place], Lab [address] [place] [address] 4 9:00 AM EST Office Visit Cardiology [address] [place] [address] Prabhakar Henning PA-C [address] [place] [address] 4 1:00 PM EST Immunization/In jection Hematology/Onco logy [facility] 200 [facility] [place] [address] Nurse, Med 4 200 [facility] [place] [address] 4 1:45 PM EST Office Visit Hematology/Onco logy [facility] [place] 200 [facility] [place] [address] Fly Velazquez MD 200 [facility] [place] [address] 4 10:00 AM EDT Office Visit Sleep Disorders Ctr [facility] 132 [facility] [place] [phone] Dorothy Toscano CRNP [address] [place] [address] 4 2:00 PM EDT Office Visit Ophthalmology, [facility] 132 [facility] [place] [address] Mika Diaz DO [address] [place] [address] 4 2:00 PM EDT Office Visit Nephrology, [facility] 200 [facility] [place] [address] ZeBeckie cruz PA-C 200 [facility] [place] [address] Pending Results Name Type Priority Associated Diagnoses [...] Additional history exists CKD HGB USE SMARTSET 01743 09/02/202409/02, 09/02/2023, 08/23/2023, Additional history exists CKD PHOS USE SMARTSET 81849 09/02/202408/13, 09/18/2022, 08/29/2021, Additional history exists COLONOSCOPY-EVERY [...] this encounter Medical Devices Implanted Type Area Rail Engineer Device Identifier Shelf Expiration Date Model / Serial / Lot Envista Hydrophobic Acrylic Intraocular Lens Implanted:Qty: 1 on 12/25/2016 by Raul Neely MD at OR [facility] Right: Eye [employer] 11/09/2018 [id number] / [id number] / [id number] Envista Mx60 +10.0 D Implanted:Qty: 1 on 01/29/2017 by Raul Neley MD at OR [facility] Left: Eye 11/09/2018 [id number] / [id number] documented as of this encounter Visit Diagnoses [...] and were consensually agreed upon. Care Teams Mortgage Collector Relationship Specialty Start Date End Date Nancy Ryan DO [address] [place] [address] [place] [address] PCP - General Internal Medicine 09/11/18 documented as of this encounter
--- OUTSIDE RECORDS SUMMARY | 2023-11-13 21:31 | External Medical Summary | Summary of Care ---
Author Name Unknown Organization [facility] Address [address] [place] [address] Phone [phone] Care Team Providers Care Electrical Maintenance Supervisor Name Role Phone Nancy Ryan DO Primary Care Provider Reason for Visit * Reason Onset Date Comments Home Health 09/25/2023 Encounter Details Date Type Department Care Team (Late st Contact Info) Description 09/25/2023 Telephone Family Medicine [address] [phone] Nancy Ryan DO [address] [place] [address] [place] [address] Home Health Allergies No known active allergiesdocumented as of this encounter (statuses as of 09/25/2023) Medications Medication Sig Dispensed Refills Start Date End Date Status MULTIPLE VITAMIN PO TABS 1 TABLET DAILY 0 07/03/2011 Active OMEGA-3 FISH OIL 1000 MG PO CAPS Take one capsule by mouth daily 0 07/03/2011 Active Blood Glucose Monitoring Suppl ([employer] ULTRA SYSTEM) W/DEVICE KITIndications:DM type 2, goal [...] neuropathy, with long-term current use of insulin ([facility]),Type 2 diabetes mellitus with [...] neuropathy, with long-term current use of insulin ([facility]) Use TWICE a day to test glucose Diagnosis = E11.9 200 Each 3 03/19/2023 Active Ozempic (2 MG/DOSE) 8 MG/3ML Subcutaneous Solution Pen-injector (Semaglutide (2 MG/DOSE))Indicatio ns:Type 2 diabetes mellitus with diabetic neuropathy, with long-term current use of insulin ([facility]) Inject 2 mg under [...] the morning. 0 06/04/2023 Active Epoetin Gautam-epbx 93683 UNIT/ML Injection Solution (Retacrit) Inject 2 mL [...] neuropathy, with long-term current use of insulin ([facility]) Inject 20 Units under [...] mRNA, LNP-s, No Pre serve, 2-Dose Series ([employer]) 06/20/2021,10/22/2020,09/26/2020 COVID-19, LNP-s, No Preserve , Jamie-sucrose, Ages 12+ ([employer]) 03/13/2022 Covid-19, Mrna, Lnp-s, Pf, B ivalent, 30 Mcg, IM, 12 yrs and above ([employer]) 09/20/2022 Pneumococcal Conjugate Vacci ne, 20-valent ([id number]) 03/14/2022 Pneumococcal Polysaccharide PPV23 (Pneumovax) 03/19/2006 Seasonal [...] LPN - 09/25/2023 3:36 PM EST [facility] make aware * Telephone Encounter - Britney Griffith LPN - 09/25/2023 3:23 PM EST I tried to call Bridgette. Faxed order to [facility]. I also called pt to make him [...] HH Concerns Bridgette VARMA, Calling from: [facility] [place] Report/Concerns of: wound discomfort Symptoms: stinging with aquacel Vitals: T 97 P 83 RR 18 BP 128/78 SP O2 98 Lung sounds clear Weight n/a Blood sugar 166 Narrative: Bridgette, calling from [facility]. Since the aquacel stings on the patients [...] Bridgette with any advice or orders at [phone] Please fax new orders to [phone] documented in this encounter Plan of Treatment Upcoming Encounters Date Type Department Care Team (Latest Contact Info) Description 4 9:25 AM EST Hospital Encounter OR [facility], Operating Room, [facility] - 4th Floor [address] [place] [address] Jayda Jeong, DO [address] [place] [address] 4 9:25 AM EST - 4 9:57 AM EST Surgery OR [facility], Operating Room, [facility] - 4th Floor [address] [place] [address] Jayda Jeong, [address] [place] [address] ESOPHAGOGASTRODUODENOSCOPY (EGD), FLEXIBLE, TRANSORAL, DIAGNOSTIC 4 10:40 AM EST Laboratory Laboratory [address] [place] [phone] [place] [address] 4 9:00 AM EST Office Visit Cardiology [address] [place] [address] Prabhakar Henning PA-C [address] [place] [address] 4 1:00 PM EST Immunization/In jection Hematology/Onco logy [facility] [place] [address] [place] [address] Nurse, Med [address] [place] [address] 4 1:45 PM EST Office Visit Hematology/Onco logy [facility] [place] [address] [place] [address] Fly Velazquez MD [address] [place] [address] 4 10:00 AM EDT Office Visit Sleep Disorders Ctr [facility] [address] [place] [address] Dorothy Toscano CRNP [address] [place] [address] 4 2:00 PM EDT Office Visit Ophthalmology, [facility] [place] [place] [address] Mika Diaz DO [address] [place] [address] 4 11:40 AM EDT Office Visit Family Medicine [address] [address] Marry Hansen [address] [address] 4 2:00 PM EDT Office Visit Nephrology, [facility] 200 [facility] [place] [address] Zemaitis, Beckie Tucker PA-C 200 [facility] [place] [address] Scheduled Orders Name Type Priority Associated Diagnoses [...] Additional history exists CKD PHOS USE SMARTSET 93936 09/02/202408/13, 09/18/2022, 08/29/2021, Additional history exists CKD HGB USE SMARTSET 03252 09/16/202409/16, 09/16/2023, 09/02/2023, Additional history exists COLONOSCOPY-EVERY [...] this encounter Medical Devices Implanted Type Area Polysomnographer Device Identifier Shelf Expiration Date Model / Serial / Lot Envista Hydrophobic Acrylic Intraocular Lens Implanted:Qty: 1 on 12/25/2016 by Raul Neely MD at OR [facility] Right: Eye [employer] 11/09/2018 [id number] / [id number] / [id number] Envista Mx60 +10.0 D Implanted:Qty: 1 on 01/29/2017 by Raul Neely MD at OR [facility] Left: Eye 11/09/2018 [id number] / [id number] / [id number] documented as of this encounter Visit Diagnoses [...] were consensually agreed upon. Care Teams Electrical Maintenance Supervisor Relationship Specialty Start Date End Date Nancy Ryan DO [address] [place] [address] [place] [phone] PCP - General Internal Medicine 09/11/18 documented as of this encounter
--- OUTSIDE RECORDS SUMMARY | 2023-11-13 21:31 | External Medical Summary | Summary of Care ---
Author Name Unknown Organization [facility] Address [address] [facility] [place] [address] Phone [phone] Care Team Providers Care Development Executive Name Role Phone Nancy Ryan DO Primary Care Provider Reason for Visit * Reason Comments Medication Administration Procrit * Episode Based Medications (Routine) - Authorized Specialty Diagnoses / Procedures Referred By Contdevika t Referred To Contact Diagnoses Anemia due to stage 3a chronic kidney disease (HCC) Procedures FL INJ RETACRIT NON-ESRD USE Tameka Pires CRNP 400 [facility] [place] [address] Anc Hem/Onc En [place] DEPT CLOSED - 06/25/[address] [place] [address] [phone] Referral ID Status Reason Start Date Expiration Date V isits Requested Visits Authorized [id number] Authorized 04/01/2023 12/23/2023 [id number] Encounter Details Date Type Department Care Team (Late st Contact Info) Description 09/17/2023 10:15 AM EST Immunization/I njection Hematology/Oncology Treatment, [place] [address] [place] [address] Nurse, Med [address] [place] [address] [address] Anemia due to stage 3a chronic kidney disease (HCC)* Allergies No known active allergiesdocumented as of this encounter (statuses as of 09/17/2023) Medications Medication Sig Dispensed Refills Start Date End Date Status MULTIPLE VITAMIN PO TABS 1 TABLET DAILY 0 07/03/2011 Active OMEGA-3 FISH OIL 1000 MG PO CAPS Take one capsule by mouth daily 0 07/03/2011 Active Blood Glucose Monitoring Suppl ([employer] ULTRA SYSTEM) W/DEVICE KITIndications:DM type 2, goal [...] neuropathy, with long-term current use of insulin ([facility]),Type 2 diabetes mellitus with hemoglobin A1c goal of less than 7.0% ([facility]) Use once a day with [...] neuropathy, with long-term current use of insulin ([facility]) Use TWICE a day to test glucose Diagnosis = E11.9 200 Each 3 03/19/2023 Active Ozempic (2 MG/DOSE) 8 MG/3ML Subcutaneous Solution Pen-injector (Semaglutide (2 MG/DOSE))Indicatio ns:Type 2 diabetes mellitus with diabetic neuropathy, with long-term current use of insulin ([facility]) Inject 2 mg under the [...] neuropathy, with long-term current use of insulin ([facility]) Take 1 Tablet by mouth [...] the morning. 0 06/04/2023 Active Epoetin Gautam-epbx 50288 UNIT/ML Injection Solution (Retacrit) Inject 2 mL [...] as of this encounter (statuses as of 09/17/2023) Active Problems Problem Noted Date Diagnosed Date [...] Non-obstructive. Noted on CT scan at [facility] 05/2019 Mild nonproliferative diabet ic retinopathy [...] Diabetes Taxonomy. 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 of inactive term [facility] current use of anticoagulant therapy 0 03/16/2005 Overview: 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 of inactive term SPENCER (obstructive sleep apnea) 06/11/2001 Overview: CPAP 11 cwp? AHP Gout of wrist documented as of this encounter (statuses as of 09/17/2023) Resolved Problems Problem Noted Date Diagnosed Date [...] as of this encounter (statuses as of 09/17/2023) Immunizations Name Administration Dates Next Due COVID-19 mRNA, LNP-s, No Pre serve, 2-Dose Series ([employer]) 06/20/2021,10/22/2020,09/26/2020 COVID-19, LNP-s, No Preserve , Jamie-sucrose, Ages 12+ (Pfizer) 03/13/2022 Covid-19, Mrna, Lnp-s, Pf, B ivalent, 30 Mcg, IM, 12 yrs and above (Pfizer) 09/20/2022 Pneumococcal Conjugate Vacci ne, 20-valent ([id number]) 03/14/2022 Pneumococcal Polysaccharide PPV23 (Pneumovax) 03/19/2006 Seasonal [...] Sign Reading Time Taken Comments Blood Pressure 148/75 09/17/2023 10:21 AM EST Pulse 78 09/17/2023 10:21 AM EST Temperature - - Respiratory Rate - - Oxygen Saturation - - Inhaled Oxygen Concentration - - Weight - - Height - - Body Mass Index - - documented in this encounter Nursing Notes * Pat Trent LPN - 09/17/2023 11:06 AM EST Pt arrived for Procrit injection. Hgb 8.6. Administered in RAMILA. Pt tolerated well. BP WNL. To return in 2 weeks. Discharged in stable condition. documented in this encounter Plan of Treatment Upcoming Encounters Date Type Department Care Team (Latest Contact Info) Description 4 1:00 PM EST Office Visit Nephrology [address] [place] [address] Alejandrina Sims MD 200 [facility] [place] [address] 4 8:50 AM EST Office Visit Family Medicine [address] [place] [phone] [address] [place] [address] 4 11:19 AM EST Hospital Encounter [place] [facility], Operating Room, [facility] - 4th Floor 400 [facility] [place] [address] Jayda Jeong, DO [address] [place] [address] 4 11:19 AM EST - 4 11:51 AM EST Surgery OR [facility], Operating Room, [facility] - 4th Floor [address] [place] [address] Jayda Jeong DO [address] [place] [address] ESOPHAGOGASTRODUODENOSCOPY (EGD), FLEXIBLE, TRANSORAL, DIAGNOSTIC 4 10:40 AM EST Laboratory Laboratory [address] [place] [phone] [address] [place] [address] 4 9:00 AM EST Office Visit Cardiology [address] [place] [address] Prabhakar Henning PAJoseC [address] [place] [address] 4 1:00 PM EST Immunization/In jection Hematology/Onco logy [facility] [address] [place] [address] Nurse, Med 4 200 [facility] [place] [address] 4 1:45 PM EST Office Visit Hematology/Onco logy [facility] [address] [place] [address] Fly Velazquez MD [address] [place] [address] 4 10:00 AM EDT Office Visit Sleep Disorders Ctr [facility] [place] [address] [place] [phone] Dorothy Toscano CRNP [address] [place] [address] 4 2:00 PM EDT Office Visit Ophthalmology, [facility] [address] [place] [address] Mika Diaz, [address] [place] [address] 4 2:00 PM EDT Office Visit Nephrology, [facility] 200 [facility] [place] [address] Zemaitis, Beckie Tucker PA-C 200 [facility] [place] [address] Scheduled Procedures Name Priority Associated Diagnoses Date/Ti [...] Additional history exists CKD PHOS USE SMARTSET 58362 09/02/202408/13, 09/18/2022, 08/29/2021, Additional history exists CKD HGB USE SMARTSET 50869 09/16/202409/16, 09/16/2023, 09/02/2023, Additional history exists COLONOSCOPY-EVERY [...] this encounter Medical Devices Implanted Type Area Administrative Technician Device Identifier Shelf Expiration Date Model / Serial / Lot Envista Hydrophobic Acrylic Intraocular Lens Implanted:Qty: 1 on 12/25/2016 by Raul Neely MD at OR [facility] Right: Eye [employer] 11/09/2018 [id number] / [id number] / [id number] Envista Mx60 +10.0 D Implanted:Qty: 1 on 01/29/2017 by Raul Neely MD at OR [facility] Left: Eye 11/09/2018 [id number] / [id number] / [id number] documented as of this encounter Visit Diagnoses Diagnosis Anemia due to stage 3a chronic kidney disease (HCC)- Primary Hematemesis, unspecified whether nausea present documented in this encounter Administered Medications Inactive Administered Medications - up to 3 most recent administrations Medication Order MAR Action Action Date Dose Rate Site Epoetin Gautam 15453 UNIT/ML inj 40,000 Units 40,000 Units, Subcutaneous, ONCE, On Sat09/17/23 at 1100, For 1 dose Given 09/17/2023 10:21 AM EST 40,000 Units Arm Left Upper documented [...] and were consensually agreed upon. Care Teams Development Executive Relationship Specialty Start Date End Date Nancy Ryan DO [address] [place] [address] [place] [address] PCP - General Internal Medicine 09/11/18 documented as of this encounter
--- OUTSIDE RECORDS SUMMARY | 2023-11-13 21:31 | External Medical Summary | Summary of Care ---
Author Name Unknown Organization [facility] Address [address] [place] [address] Phone [phone] Care Team Providers Care Cash Manager Name Role Phone Nancy Ryan DO Primary Care Provider [phone] Reason for Visit * Reason Comments Outpatient Testing Encounter Details Date Type Department Care Team (Late st Contact Info) Description 09/02/2023 10:40 AM EST Laboratory Laboratory [address] [place] [phone] [place] [address] History of DVT (deep vein thrombosis); 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 management encounter; [facility] current use of anticoagulant therapy; Anemia due to stage 3a chronic kidney disease (HCC); Hypertension; Chronic gout due to renal impairment, multiple sites, without tophus (tophi); Iron deficiency anemia due to chronic blood loss; Vitamin D deficiency; HTN, goal below 130/80; Stage 3a chronic kidney disease Allergies No known active allergiesdocumented as of this encounter (statuses as of 09/16/2023) Medications Medication Sig Dispensed Refills Start Date End Date Status MULTIPLE VITAMIN PO TABS 1 TABLET DAILY 0 07/03/20 11 Active OMEGA-3 FISH OIL 1000 MG PO CAPS Take one capsule by mouth daily 0 07/03/20 11 Active Blood Glucose Monitoring Suppl ([employer] ULTRA SYSTEM) W/DEVICE KITIndications:DM type 2, goal [...] neuropathy, with long-term current use of insulin ([facility]),Type 2 diabetes mellitus with hemoglobin A1c goal of less than 7.0% ([facility]) Use once a day with basaglar. DX [...] DINNER 180 Tablet 3 12/11/19 23 Active Acetic Acid 0.25 % Irrigation Solution Apply to legs as directed by the wound clinic. 1000 mL 2 03/01/20 23 Active OneTouch Verio In Vitro Strip (Glucose Blood) Use to test blood sugars twice a day. Dx. E11.9 300 Strip 1 03/13/20 23 Active OneTouch Delica Lancets 30GIndications:Ty pe 2 diabetes mellitus with diabetic neuropathy, with long-term current use of insulin ([facility]) Use TWICE a day to test glucose Diagnosis = E11.9 200 Each 3 03/19/20 23 Active Ozempic (2 MG/DOSE) 8 MG/3ML Subcutaneous Solution Pen-injector (Semaglutide (2 MG/DOSE))Indicati ons:Type 2 diabetes mellitus with diabetic neuropathy, with long-term current use of insulin ([facility]) Inject 2 mg under the skin once [...] neuropathy, with long-term current use of insulin ([facility]) Take 1 Tablet by mouth 2 times a day with morning and evening meals. 180 Tablet 3 05/17/20 23 Active Sodium Bicarbonate 650 MG Oral Tablet Take 2 Tablets by mouth in the morning and 2 Tablets at noon and 2 Tablets in the evening and 2 Tablets before bedtime. 60 Tablet 5 06/04/20 23 Active Losartan Potassium 50 MG Oral Tablet (Cozaar) Take 0.5 Tablets by mouth in the morning. 0 06/04/20 23 Active Epoetin Gautam-epbx 82809 UNIT/ML Injection Solution (Retacrit) Inject 2 mL [...] MORNING 90 Tablet 3 08/15/19 24 Active Warfarin Sodium 5 MG Oral Tablet (Coumadin)Indicat ions:History of DVT (deep vein thrombosis),Antic oagulation management encounter,[facility] current use of anticoagulant therapy Take 5 mg (1 tablet)by mouth daily or as directed by anticoagulation clinic 100 Tablet 3 10/16/19 23 024 Discontinued(Ri dication List Clean Up) Insulin Glargine Solostar 100 UNIT/ML Subcutaneous Solution Pen-injector (Flavia Ashraf)Indicatio ns:Type 2 diabetes mellitus with diabetic neuropathy, with long-term current use of insulin ([facility]) Inject 48 Units under the skin in the morning. 45 mL 3 02/28/20 23 024 Discontinued(Re fill) amLODIPine Besylate 2.5 MG Oral Tablet (Norvasc) Take 1 Tablet by mouth in the morning. 90 Tablet 5 07/31/20 23 024 Discontinued Hospital, Clinic, or Other Facility Administered [...] Diabetes Taxonomy. 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 of inactive term [facility] current use of anticoagulant therapy 0 03/16/2005 [...] (Pfizer) 09/20/2022 Pneumococcal Conjugate Vacci ne, 20-valent ([id number]) 03/14/2022 Pneumococcal Polysaccharide PPV23 (Pneumovax) 03/19/2006 Seasonal [...] as of this encounter Miscellaneous Notes * Result Encounter Note - Alejandrina Sims MD - 09/09/2023 9:55 PM EST Kidney labs better/back to baseline; start calcitriol 0.25 mcg daily and else continue same. documented in this encounter Plan of Treatment Upcoming Encounters Date Type Department Care Team (Latest Contact Info) Description 4 1:00 PM EST Immunization/In jection Hematology/Onco logy Treatment, [place] [facility] [address] [facility], [facility] [address] [facility] [place] [address] 4 1:00 PM EST Office Visit Nephrology [address] [place] [address] Alejandrina Sims MD [address] [facility] [place] [address] 4 8:50 AM EST Office Visit Family Medicine [address] [place] [phone] [address] [place] [address] 4 11:19 AM EST Hospital Encounter OR GL, Operating Room, [facility] - 4th Floor [address] [place] [address] Jayda Jeong, DO [address] [place] [address] 4 11:19 AM EST - 4 11:51 AM EST Surgery OR GLH, Operating Room, [facility] - 4th Floor [address] [place] [address] Jyada Jeong DO [address] [place] [address] ESOPHAGOGASTRODUODENOSCOPY (EGD), FLEXIBLE, TRANSORAL, DIAGNOSTIC 4 10:40 AM EST Laboratory Laboratory [address] [place] [phone] [place], Lab [address] [place] [address] 4 9:00 AM EST Office Visit Cardiology [address] [place] [address] Prabhakar Henning PA-C [address] [place] [address] 4 1:00 PM EST [facility] [address] [place] [address] Nurse, Med 4 [address] [facility] [place] [address] 4 1:45 PM EST Office Visit Hematology/Onco logy [facility] [place] [address] [facility] [place] [address] Fly Velazquez MD [address] [facility] [place] [address] 4 10:00 AM EDT Office Visit Sleep Disorders Ctr Manny Browne [place] [address] [place] [phone] Dorothy Toscano CRNP [address] [place] [address] 4 2:00 PM EDT Office Visit Ophthalmology, [facility] [address] [place] [address] Mika Diaz DO [address] [place] [address] 4 2:00 PM EDT Office Visit Nephrology, [facility] [address] [facility] [place], [place] [address] ZemaitisBeckie PA-C [address] [facility] [place] [address] Scheduled Procedures Name Priority Associated Diagnoses Date/Ti [...] Additional history exists CKD HGB USE SMARTSET 14483 09/02/202409/02, 09/02/2023, 08/23/2023, Additional history exists CKD PHOS USE SMARTSET 18977 09/02/202408/13, 09/18/2022, 08/29/2021, Additional history exists COLONOSCOPY-EVERY [...] this encounter Medical Devices Implanted Type Area Inclusion Specialist Device Identifier Shelf Expiration Date Model / Serial / Lot Envista Hydrophobic Acrylic Intraocular Lens Implanted:Qty: 1 on 12/25/2016 by Raul Neely MD at OR [facility] Right: Eye [employer] 11/09/2018 [id number] / [id number] / [id number] Envista Mx60 +10.0 D Implanted:Qty: 1 on 01/29/2017 by Raul Neely MD at OR [facility] Left: Eye 11/09/2018 [id number] / [id number] / [id number] documented as of this encounter Procedures Procedure Name Priority Date/Time Associated Diagnosis Comments DIFFERENTIAL, AUTOMATED STAT 09/02/2023 10:36 AM EST Anemia due to stage 3a chronic kidney disease (HCC) 25-HYDROXY VITAMIN D Routine 09/02/2023 10:36 AM EST Vitamin D deficiency HEPATIC FUNCTION PANEL Routine 09/02/2023 10:36 AM EST Chronic gout due to renal impairment, multiple sites, without tophus (tophi) Anemia due to stage 3a chronic kidney disease (HCC) Iron deficiency anemia due to chronic blood loss BASIC METABOLIC PANEL Routine 09/02/2023 10:36 AM EST Hypertension IRON SCREEN, INCLUDING TIBC Routine 09/02/2023 10:36 AM EST Chronic gout due to renal impairment, multiple sites, without tophus (tophi) Anemia due to stage 3a chronic kidney disease (HCC) Iron deficiency anemia due to chronic blood loss CBC STAT 09/02/2023 10:36 AM EST Anemia due to stage 3a chronic kidney disease (HCC) PHOSPHORUS Routine 09/02/2023 10:36 AM EST Stage 3a chronic kidney disease PTH Routine 09/02/2023 10:36 AM EST Chronic gout due to renal impairment, multiple sites, without tophus (tophi) Anemia due to stage 3a chronic kidney disease (HCC) Iron deficiency anemia due to chronic blood loss CBC STAT 09/02/2023 10:36 AM EST Anemia due to stage 3a chronic kidney disease (HCC) DIFFERENTIAL, TECHNOLOGIST REVIEW Routine 09/02/2023 10:36 AM EST Anemia due to stage 3a chronic kidney disease (HCC) URIC ACID Routine 09/02/2023 10:36 AM EST Chronic gout due to renal impairment, multiple sites, without tophus (tophi) Anemia due to stage 3a chronic kidney disease (HCC) Iron deficiency anemia due to chronic blood loss documented in this encounter Results * PHOSPHORUS (09/02/2023 10:36 AM EST) Phosphorus 3.8 2.5 - 4.8 mg/dL 09/04/2023 12:18 PM EST [facility] Blood Venous blood specimen / Unknown Venipuncture / Unknown 09/02/2023 10:36 AM EST 09/02/2023 10:36 AM EST Nancy Ryan LAB BLOOD ORDERABLES Performing Organization Address City/[facility]/ZIP Co de Phone Number [facility] [address] [place] [address] * (ABNORMAL) DIFFERENTIAL, TECHNOLOGIST REVIEW (09/02/2023 10:36 AM EST) Ovalocytes Moderate(A ) None Seen 09/03/2023 12:29 AM EST [facility] Blood Venous blood specimen / Unknown Venipuncture / Unknown 09/02/2023 10:36 AM EST 09/02/2023 10:36 AM EST Tameka MARMOLEJO LAB BLOOD ORDER MARY Performing Organization Address City/[facility]/ZIP Co de Phone Number LABORATORY [facility] [address] [place] [address] * DIFFERENTIAL, AUTOMATED (09/02/2023 10:36 AM EST) WBC 5.15 4.00 - 10.80 K/uL 09/03/2023 12:29 AM EST [facility] Neutrophils % 54.7 40.0 - 75.0 % 09/03/2023 12:29 AM EST [facility] Lymphocytes % 32.2 18.0 - 42.0 % 09/03/2023 12:29 AM EST [facility] Monocytes % 8.2 1.0 - 11.0 % 09/03/2023 12:29 AM EST [facility] Eosinophils % 3.9 0.0 - 6.0 % 09/03/2023 12:29 AM EST [facility] Basophils % 0.8 0.0 - 2.0 % 09/03/2023 12:29 AM EST [facility] Immature Granulocytes % 0.2 0.0 - 2.0 % 09/03/2023 12:29 AM EST [facility] Absolute Neutrophils 2.82 1.80 - 7.70 K/uL 09/03/2023 12:29 AM EST [facility] Absolute Lymphocytes 1.66 1.00 - 4.80 K/ul 09/03/2023 12:29 AM EST [facility] Absolute Monocytes 0.42 0.00 - 1.10 K/uL 09/03/2023 12:29 AM EST [facility] Absolute Eosinophils 0.20 0.00 - 0.70 K/uL 09/03/2023 12:29 AM EST [facility] Absolute Basophils 0.04 0.00 - 0.20 K/uL 09/03/2023 12:29 AM EST [facility] Absolute Immature Granulocytes 0.01 0.00 - 0.20 K/uL 09/03/2023 12:29 AM EST [facility] Blood Venous blood specimen / Unknown Venipuncture / Unknown 09/02/2023 10:36 AM EST 09/02/2023 10:36 AM EST Tameka MARMOLEJO LAB BLOOD ORDER MARY [facility] [address] [place] [address] * (ABNORMAL) CBC (09/02/2023 10:36 AM EST) WBC 5.15 4.00 - 10.80 K/uL 09/03/2023 12:25 AM EST [facility] RBC 2.71 4.50 - 5.25 M/uL 09/03/2023 12:25 AM EST [facility] HGB 8.2(L) 14.0 - 16.8 g/dL 09/03/2023 12:25 AM EST [facility] HCT 26.8(L) 40.0 - 48.4 % 09/03/2023 12:25 AM EST [facility] MCV 98.9 82.0 - 99.5 fL 09/03/2023 12:25 AM EST [facility] MCH 30.3 27.0 - 34.0 pg 09/03/2023 12:25 AM EST [facility] MCHC 30.6 32.0 - 36.0 g/dL 09/03/2023 12:25 AM EST [facility] RDW 19.8 11.5 - 15.5 % 09/03/2023 12:25 AM EST LABORATORY [facility] PLT 229 140 - 400 K/uL 09/03/2023 12:25 AM EST LABORATORY [facility] MPV 9.4 6.6 - 11.1 fL 09/03/2023 12:25 AM EST LABORATORY [facility] nRBCs 0 <=0 /100 WBCs 09/03/2023 12:25 AM EST LABOR[facility]ORY [facility] Blood Venous blood specimen / Unknown Venipuncture / Unknown 09/02/2023 10:36 AM EST 09/02/2023 10:36 AM EST Tameka MARMOLEJO LAB BLOOD ORDER MARY Performing Organization Address City/[facility]/ZIP Co de Phone Number LABORATORY [facility] [address] [place] [address] * 25-HYDROXY VITAMIN D (09/02/2023 10:36 AM EST) 25-Hydroxy Vitamin D 52 >19 ng/mL 09/03/2023 6:12 AM EST LABORATORY [facility] Blood Venous blood specimen / Unknown Venipuncture / Unknown 09/02/2023 10:36 AM EST 09/02/2023 10:36 AM EST Narrative LAB[facility]ATORY [facility] - 09/03/2023 6:12 AM EST Deficient: <20 ng/mL Insufficient: 20-29 ng/mL Recommended/Optimum:30-50 ng/mL Vitamin D intoxication is rare. If suspicious of Vitamin D toxicity, evaluation of serum Calcium and PTH is recommended. Alejandrina Sims MD LAB BLOOD ORDERAB LES Performing Organization Address City/[facility]/ZIP Co de Phone Number LABORATORY [facility] [address] [place] [address] * (ABNORMAL) PTH (09/02/2023 10:36 AM EST) PTH 102(H) 15 - 65 pg/mL 09/03/2023 6:12 AM EST LABORATORY [facility] Blood Venous blood specimen / Unknown Venipuncture / Unknown 09/02/2023 10:36 AM EST 09/02/2023 10:36 AM EST Alejandrina Sims MD LAB BLOOD ORDERAB LES Performing Organization Address City/[facility]/ZIP Co de Phone Number LABORATORY [facility] [address] [place] [address] * URIC ACID (09/02/2023 10:36 AM EST) Uric Acid 5.4 3.4 - 7.0 mg/dL 09/03/2023 5:40 AM EST [facility] Blood Venous blood specimen / Unknown Venipuncture / Unknown 09/02/2023 10:36 AM EST 09/02/2023 10:36 AM EST Alejandrina Sims MD LAB BLOOD ORDERAB LES Performing Organization Address [facility] Co de Phone Number LABORATORY [facility] [address] [place] [address] * (ABNORMAL) HEPATIC FUNCTION PANEL (09/02/2023 10:36 AM EST) Albumin 3.2(L) 3.8 - 5.0 g/dL 09/03/2023 5:40 AM EST [facility] AST 17 10 - 50 U/L 09/03/2023 5:40 AM EST [facility] Alkaline Phosphatase 73 35 - 130 U/L 09/03/2023 5:40 AM EST [facility] ALT 14 10 - 50 U/L 09/03/2023 5:40 AM EST [facility] Bilirubin, Total 0.5 <=1.2 mg/dL 09/03/2023 5:40 AM EST [facility] Bilirubin, Direct <0.2 0.0 - 0.3 mg/dL 09/03/2023 5:40 AM EST [facility] Protein 6.9 6.0 - 8.3 g/dL 09/03/2023 5:40 AM EST [facility] Blood Venous blood specimen / Unknown Venipuncture / Unknown 09/02/2023 10:36 AM EST 09/02/2023 10:36 AM EST Alejandrina Sims MD LAB BLOOD ORDERAB LES Performing Organization Address [facility]/ZIP Co de Phone Number [facility] [address] [place] [address] * (ABNORMAL) IRON SCREEN, INCLUDING TIBC (09/02/2023 10:36 AM EST) Iron 39(L) 45 - 176 ug/dL 09/03/2023 5:40 AM EST [facility] Iron Binding Capacity 266 250 - 425 ug/dL 09/03/2023 5:40 AM EST [facility] Transferrin Saturation Percent 15 15 - 55 % 09/03/2023 5:40 AM EST [facility] Blood Venous blood specimen / Unknown Venipuncture / Unknown 09/02/2023 10:36 AM EST 09/02/2023 10:36 AM EST Alejandrina Sims MD LAB BLOOD ORDERAB LES Performing Organization Address [facility] de Phone Number [facility] [address] [place] [address] * (ABNORMAL) BASIC METABOLIC PANEL (09/02/2023 10:36 AM EST) BUN 26(H) 6 - 20 mg/dL 09/03/2023 5:40 AM EST [facility] Creatinine 1.5(H) 0.6 - 1.2 mg/dL 09/03/2023 5:40 AM EST [facility] Estimated Glomerular Filtration Rate 51(L) >=60 mL/min 09/03/2023 5:40 AM EST [facility] Comment:eGFR is calculated b ased on the CKD-EPI 2020 equation Sodium 141 135 - 146 mmol/L 09/03/2023 5:40 AM EST [facility] Potassium 5.1 3.5 - 5.1 mmol/L 09/03/2023 5:40 AM EST [facility] Chloride 107 98 - 107 mmol/L 09/03/2023 5:40 AM EST [facility] CO2 22 22 - 32 mmol/L 09/03/2023 5:40 AM EST [facility] Anion Gap 12 7 - 15 mmol/L 09/03/2023 5:40 AM EST [facility] Glucose 155(H) 70 - 120 mg/dL 09/03/2023 5:40 AM EST [facility] Calcium 8.8 8.4 - 10.2 mg/dL 09/03/2023 5:40 AM EST [facility] Blood Venous blood specimen / Unknown Venipuncture / Unknown 09/02/2023 10:36 AM EST 09/02/2023 10:36 AM EST Alejandrina Sims MD LAB BLOOD ORDERAB LES [facility] [address] [place] [address] documented in this encounter Visit Diagnoses Diagnosis History of DVT (deep vein thrombosis) Personal history of venous thrombosis and embolism 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 management encounter Encounter for therapeutic drug monitoring exterminator current use of anticoagulant therapy Anemia due to stage 3a chronic kidney disease (HCC) HTN, goal below 130/80 Unspecified essential hypertension Chronic gout due to renal impairment, multiple sites, without tophus (tophi) Iron deficiency anemia due to chronic blood loss Iron deficiency anemia secondary to blood loss (chronic) Vitamin D deficiency Unspecified vitamin D deficiency Stage 3a chronic kidney disease Hematemesis, unspecified [...] and were consensually agreed upon. Care Teams Cash Manager Relationship Specialty Start Date End Date Nancy Ryan DO [address] [place] [address] [place] [address] PCP - General Internal Medicine 09/11/18 documented as of this encounter
--- OUTSIDE RECORDS SUMMARY | 2023-11-13 21:32 | External Medical Summary | Summary of Care ---
Author Name Unknown Organization [facility] Address [address] [place] [address] Phone [phone] Care Team Providers Care Oyster Picker Name Role Phone Nancy Ryan DO Primary Care Provider Reason for Visit * Reason Onset Date Comments Appointment 09/04/2023 Upper endoscopy Encounter Details Date Type Department Care Team (Late st Contact Info) Description 09/04/2023 Telephone Family Medicine [address] [phone] Nancy Ryan DO [address] [place] [address] [place] [address] Appointment (Upper endoscopy ) Allergies No known active allergiesdocumented as of this encounter (statuses as of 09/05/2023) Medications Medication Sig Dispensed Refills Start Date End Date Status MULTIPLE VITAMIN PO TABS 1 TABLET DAILY 0 07/03/2011 Active OMEGA-3 FISH OIL 1000 MG PO CAPS Take one capsule by mouth daily 0 07/03/2011 Active Blood Glucose Monitoring Suppl ([email or web address] ULTRA SYSTEM) W/DEVICE KITIndications:DM type 2, goal [...] long-term current use of insulin ([facility]),Type 2 diabetes mellitus with hemoglobin A1c goal of less than 7.0% ([facility]) Use once a day with basaglar. [...] long-term current use of insulin ([facility]) Use TWICE a day to test glucose Diagnosis = E11.9 200 Each 3 03/19/2023 Active Ozempic (2 MG/DOSE) 8 MG/3ML Subcutaneous Solution Pen-injector (Semaglutide (2 MG/DOSE))Indicatio ns:Type 2 diabetes mellitus with diabetic neuropathy, with long-term current use of insulin ([facility]) Inject 2 mg under the skin [...] long-term current use of insulin ([facility]) Take 1 Tablet by mouth 2 [...] the morning. 0 06/04/2023 Active Epoetin Gautam-epbx 46597 UNIT/ML Injection Solution (Retacrit) Inject 2 mL [...] long-term current use of insulin ([facility]) Inject 20 Units under the skin [...] as of this encounter (statuses as of 09/05/2023) Active Problems Problem Noted Date Diagnosed Date [...] Overview: Non-obstructive. Noted on CT scan at [facility] 05/2019 Mild nonproliferative diabet ic [...] Diabetes Taxonomy. 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 of inactive term halfway current use of anticoagulant therapy 0 03/16/2005 Overview: 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 of inactive term SPENCER (obstructive sleep apnea) 06/11/2001 Overview: CPAP 11 cwp? AHP Gout of wrist documented as of this encounter (statuses as of 09/05/2023) Resolved Problems Problem Noted Date Diagnosed Date [...] as of this encounter (statuses as of 09/05/2023) Immunizations Name Administration Dates Next Due COVID-19 mRNA, LNP-s, No Pre serve, 2-Dose Series ([employer] 06/20/2021,10/22/2020,09/26/2020 COVID-19, LNP-s, No Preserve , Jamie-sucrose, Ages 12+ (Pfizer) 03/13/2022 Covid-19, Mrna, Lnp-s, Pf, B ivalent, 30 Mcg, IM, 12 yrs and above ([employer] 09/20/2022 Pneumococcal Conjugate Vacci ne, 20-valent ([employer]) 03/14/2022 Pneumococcal Polysaccharide PPV23 (Pneumovax) 03/19/2006 Seasonal [...] encounter Miscellaneous Notes * Telephone Encounter - Milagros Ritchie OSA - 09/05/2023 10:12 AM EST Pt scheduled on 09/26/23 for EGD procedure in the OR * Telephone Encounter - Torrie Friedman OSA - 09/04/2023 12:05 PM EST Servando needs scheduled for upper endoscopy for: Hematemesis, unspecified whether nausea present [K92.0] Comments Pt requests [facility] documented in this encounter Plan of Treatment Upcoming Encounters Date Type Department Care Team (Latest Contact Info) Description 09/05/19 5:10 PM EST 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 Pharmacy, [address] [place] [address] [facility] [address] [place] [address] History of DVT (deep vein thrombosis)* 09/16/19 10:40 AM EST Laboratory Laboratory [address] [place] [phone] [facility] [address] [place] [address] 09/17/19 1:00 PM EST Immunization/Inject ion Hematology/Onc ology Treatment, [place] [address] [facility] [address] [facility] [address] 09/19/19 1:00 PM EST Office Visit Nephrology [address] [place] [address] [facility]jandrina Sims [facility] [address] [facility] [address] 09/20/19 8:50 AM EST Office Visit Family Medicine [address] [place] [phone] Nancy Ryan[address] [place] [address] 09/26/19 11:19 AM EST Hospital Encounter OR GL, Operating Room, [facility] - 4th Floor [address] [address] Jayda Jeong, DO [address] [place] [address] 09/26/19 11:19 AM EST - 09/26/19 11:51 AM EST Surgery OR [facility], Operating Room, [facility] - 4th Floor [address] [place] [address] Jayda Jeong, DO [address] [place] [address] ESOPHAGOGASTRODUODENOSCOPY (EGD), FLEXIBLE, TRANSORAL, DIAGNOSTIC 09/30/19 10:40 AM EST Laboratory Laboratory [address] [place] [phone], Lab [address] [place] [address] 10/01/19 9:00 AM EST Office Visit Cardiology [address] [place] [address] Prabhakar Henning PA-C [address] [place] [address] 10/01/19 1:00 PM EST Immunization/Inject ion [facility]ology[facility] [place] [address] [place] [address] Nurse, Med 200 [facility] [place] [address] 10/15/19 24 1:45 PM EST Office Visit Hematology/Onc ology [facility] [place] [address] [place] [address] Fly Velazquez MD [address] [place] [address] 10/23/19 10:00 AM EDT Office Visit [facility] Disorders [facility] [address] [place] [phone] Dorothy Toscano CRNP [address] [place] [address] 10/24/19 2:00 PM EDT Office Visit Ophthalmology, [facility] [address] [place] [address] Mika Diaz DO [address] [place] [address] 12/25/19 2:00 PM EDT Office Visit Nephrology, [facility] [address] [facility] [place] [address] Zemaitis, Beckie Tucker PA-C [address] [facility] [place] [address] Scheduled Procedures Name Priority Associated Diagnoses Date/Ti [...] Additional history exists CKD HGB USE SMARTSET 48061 09/02/202409/02, 09/02/2023, 08/23/2023, Additional history exists CKD PHOS USE SMARTSET 10732 09/02/202408/13, 09/18/2022, 08/29/2021, Additional history exists COLONOSCOPY-EVERY 5 YRS AGES 18-100 02/09/2027 02/09/2022, 09/11/2018, 12/07/2008 Lipid Panel 02/11/2028 02/10/2023, 0810/2021, 05/19/2021, Additional history exists DTaP,Tdap,and Td Vaccines [...] this encounter Medical Devices Implanted Type Area Systems Test Technician Device Identifier Shelf Expiration Date Model / Serial / Lot Envista Hydrophobic Acrylic Intraocular Lens Implanted:Qty: 1 on 12/25/2016 by Raul Neely MD at OR [facility] Right: Eye [employer] 11/09/2018 [id number] / [id number] / [id number] Envista Mx60 +10.0 D Implanted:Qty: 1 on 01/29/2017 by Raul Neely MD at OR [facility] Left: Eye 11/09/2018 [id number] / [id number] / [id number] documented as of this encounter Advance Directives [...] and were consensually agreed upon. Care Teams Oyster Picker Relationship Specialty Start Date End Date Nancy Ryan DO [address] [place] [address] [place] [address] PCP - General Internal Medicine 09/11/18 documented as of this encounter
--- OUTSIDE RECORDS SUMMARY | 2023-11-13 21:32 | External Medical Summary | Summary of Care ---
Author Name Unknown Organization [facility] Address [address] [place] [address] Phone [phone] Care Team Providers Care Accounts Payable Payroll Coordinator Name Role Phone Nancy Ryan DO Primary Care Provider [phone] Reason for Referral * Ancillary Services (Within 30 days (routine)) - Pending Review Specialty Diagnoses / Procedures Referred By Juan Pablo ornelas Referred To Contact Gastroenterology Diagnoses Hematemesis, unspecified whether nausea present Nancy Ryan DO [address] [place] [address] [place] [address] Referral ID Status Reason Start Date Expiration Date Visits Requested Visits Authorized [id number] Pending Review Ancillary Services Required 09/04/[phone] Question Answer Referral Priority Within 30 days (routine) Where should this appointment be scheduled? [facility] Comments Pt requests [facility] Upper Endoscopy ASGE Guidelines Hematemesis ADDITIONAL INFORMATION 1. Is the patient on Coumadin? No 2. Is the patient on Pradaxa? No Reason for Visit * Reason Comments Hospital Follow-Up Pt states feeling "t ired, legs are burning from the sores". Encounter Details Date Type Department Care Team ([facility] st Contact Info) Description 09/04/2023 11:10 AM EST Office Visit Family Medicine [address] [place] [phone] Nancy Ryan, [address] [place] [address] Stage 3a chronic kidney disease*; Type 2 diabetes mellitus with diabetic neuropathy, with long-term current use of insulin ([facility]); Hematemesis, unspecified whether nausea present; General weakness; HTN, goal below 130/80; Anemia due to stage 3a chronic kidney disease ([facility]) Allergies No known active allergiesdocumented as of this encounter (statuses as of 09/04/2023) Medications Medication Sig Dispensed Refills Start Date End Date Status MULTIPLE VITAMIN PO TABS 1 TABLET DAILY 0 1 Active OMEGA-3 FISH OIL 1000 MG PO CAPS Take one capsule by mouth daily 0 1 Active Blood Glucose Monitoring Suppl (Amplify[employer]LA ULTRA SYSTEM) W/DEVICE KITIndications:D M type 2, [...] neuropathy, with long-term current use of insulin ([facility]),Type 2 diabetes mellitus with hemoglobin A1c goal of less than 7.0% ([facility]) Use once a day with [...] AND DINNER 180 Tablet 3 3 Active Acetic Acid 0.25 % Irrigation Solution Apply to legs as directed by the wound clinic. 1000 mL 2 3 Active OneTouch Verio In Vitro Strip (Glucose Blood) Use to test blood sugars twice a day. Dx. E11.9 300 Strip 1 3 Active OneTouch Delica Lancets 30GIndications:T ype 2 diabetes mellitus with diabetic neuropathy, with long-term current use of insulin ([facility]) Use TWICE a day to test glucose Diagnosis = E11.9 200 Each 3 3 Active Ozempic (2 MG/DOSE) 8 MG/3ML Subcutaneous Solution Pen-injector (Semaglutide (2 MG/DOSE))Indicat ions:Type 2 diabetes mellitus with diabetic neuropathy, with long-term current use of insulin (HCC) Inject 2 mg under the skin once a week. DX E11.9 Diabetes Mellitus 3 mL 5 3 Active Additional Information Patient not taking.Reported on 09/04/2023 Allopurinol 100 MG Oral Tablet (Zyloprim)Indica tions:Acute [...] evening meals. 180 Tablet 3 3 Active Sodium Bicarbonate 650 MG Oral Tablet Take 2 Tablets by mouth in the morning and 2 Tablets at noon and 2 Tablets in the evening and 2 Tablets before bedtime. 60 Tablet 5 3 Active Additional Information Patient not taking.Reported on 09/04/2023 Losartan Potassium 50 MG Oral Tablet (Cozaar) Take 0.5 Tablets by mouth in the morning. 0 3 Active Epoetin Gautam-epbx 14031 UNIT/ML Injection Solution (Retacrit) Inject 2 mL [...] THE MORNING 90 Tablet 3 4 Active Pantoprazole Sodium 40 MG Oral Tablet Delayed Release (Protonix) Take 1 Tablet by mouth in the morning. 90 Tablet 1 4 Active Insulin Glargine Solostar 100 UNIT/ML Subcutaneous Solution Pen-injector (Basaglar KwikPen)Indicati ons:Type 2 diabetes mellitus with diabetic neuropathy, with long-term current use of insulin (HCC) Inject 20 Units under the skin in the morning. 0 4 Active Insulin Glargine Solostar 100 UNIT/ML Subcutaneous Solution Pen-injector (Basaglar KwikPen)Indicati ons:Type 2 diabetes mellitus with diabetic neuropathy, with long-term current use of insulin (HCC) Inject 48 Units under the skin in the morning. 45 mL 3 3 024 Discontinued(Re fill) amLODIPine Besylate 2.5 MG Oral Tablet (Norvasc) Take 1 Tablet by mouth in the morning. 90 Tablet 5 3 024 Discontinued Pantoprazole Sodium 40 MG Oral Tablet Delayed Release (Protonix) Take 1 Tablet by mouth. 0 4 024 Discontinued(Re fill) Hospital, Clinic, or [...] as of this encounter (statuses as of 09/04/2023) Active Problems Problem Noted Date Diagnosed Date [...] Non-obstructive. Noted on CT scan at [facility] 05/2019 Mild nonproliferative diabet ic retinopathy of [...] Diabetes Taxonomy. 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 of inactive term detention current use of anticoagulant therapy 0 03/16/2005 Overview: 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 of inactive term SPENCER (obstructive sleep apnea) 06/11/2001 Overview: CPAP 11 cwp? AHP Gout of wrist documented as of this encounter (statuses as of 09/04/2023) Resolved Problems Problem Noted Date Diagnosed Date [...] as of this encounter (statuses as of 09/04/2023) Immunizations Name Administration Dates Next Due COVID-19 mRNA, LNP-s, No Pre serve, 2-Dose Series (CollegeSolved) 06/20/2021,10/22/2020,09/26/2020 COVID-19, LNP-s, No Preserve , Jamie-sucrose, Ages 12+ (Pfizer) 03/13/2022 Covid-19, Mrna, Lnp-s, Pf, B ivalent, 30 Mcg, IM, 12 yrs and above (Pfizer) 09/20/2022 Pneumococcal Conjugate Vacci ne, 20-valent (Soztyac60) 03/14/2022 Pneumococcal Polysaccharide PPV23 (Pneumovax) 03/19/2006 Seasonal [...] Sign Reading Time Taken Comments Blood Pressure 142/70 09/04/2023 11:05 AM EST Pulse 92 09/04/2023 11:05 AM EST Temperature 36.8 C (98.2 F) 09/04/2023 1 1:05 AM EST Respiratory Rate - - Oxygen Saturation 100% 09/04/2023 11: 05 AM EST Inhaled Oxygen Concentration - - Weight 146.8 kg (323 lb 9.6 oz) 024 11:05 AM EST Height - - Body Mass Index 45.13 05/15/2023 10:39 AM EDT documented in this encounter Progress Notes * Nancy Ryan DO - 09/04/2023 11:09 AM EST Subjective: Ronnie Wu is a 68 year old male. Chief Complaint Patient presents with Hospital Follow-Up Pt states feeling "tired, legs are burning from the sores". HPI: Ronnie Wu presents today for routine follow up. He was recently hospitalized at [facility] for cellulitis and calciphylaxis. He was treated with IV antibiotics and transitioned to oral keflex upon discharge with a completion date of 08/21/23. Due to concern for GI bleed and remote history of DVT, his coumadin was stopped and he was placed on a PPI. His blood pressure regimen was adjusted with his amlodipine being stopped. Chlorthalidone was stopped but his torsemide was continued. He presents today with his . He is still unsteady on his feet. Shakes more. He is able to go up and down the stairs but is very cautious as he does not want to fall again. Home health is involved - [facility]. His is doing his dressing changes twice a day. Still has some drainage but this is improving. Has pain issues in his legs overnight/trouble sleeping - he is going to try medical marijuana. He continues to follow with Dr. Velazquez for his anemia. He remains off the coumadin. No need to continue it at this time. No further nausea/vomiting/coffee ground emesis. He did have an EGD in 06/2021 which was normal. Willing to have this done, but prefers [facility]. His Lantus was cut back from 48 units to 20 units. AM blood sugar was in the low 100s. He has not taken his Ozempic in several weeks - would like to know how to restart this. 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 current use of anticoagulant therapy Z79.01 Type 2 diabetes mellitus with diabetic neuropathy, with long-term current use of insulin (HCC) E11.40, Z79.4 Gout of wrist M10.9 Venous insufficiency I87.2 Vitamin B12 deficiency E53.8 Dyslipidemia, goal LDL below 100 E78.5 Venous stasis dermatitis of both lower extremities I87.2 DM neuropathy, type II diabetes mellitus (HCC) E11.40 History of DVT (deep vein thrombosis) Z86.718 Venous stasis ulcer of calf ([facility]) I83.002, L97.209 H/O amputation of lesser toe, unspecified laterality ([facility]) Z89.429 HTN, goal below 130/80 I10 Iron deficiency anemia due to chronic blood loss D50.0 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 associated with type 2diabetes mellitus ([facility]) E11.3292 Hyperkalemia E87.5 Renal calculi N20.0 Non-pressure chronic ulcer of unspecified part of left lower leg with unspecified severity ([facility]) L97.929 Varicose veins of right lower extremity with ulcer other part of lower leg (CODE) ([facility]) I83.018 Stage 3a chronic kidney disease N18.31 Morbid obesity with BMI of 45.0-49.9, adult ([facility]) E66.01, Z68.42 Non-pressure chronic ulcer of unspecified part of right lower leg with unspecified severity ([facility]) L97.919 Acute gout due to renal impairment involving right wrist M10.331 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 Carpal tunnel syndrome of right wrist G56.01 Chronic right-sided heart failure ([facility]) I50.812 Other specified peripheral vascular diseases ([facility]) I73.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, multiple sites, without tophus (tophi) M1A.39X0 Tubular adenoma D36.9 History of adenomatous polyp of colon Z86.010 Non-pressure chronic ulcer of lower leg, limited to breakdown of skin ([facility]) L97.901 Chronic venous hypertension (idiopathic) with ulcer of bilateral lower extremity (CODE) ([facility]) I87.313 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 ([facility]) E11.3593 Anemia due to stage 3a chronic kidney disease ([facility]) N18.31, D63.1 Current Outpatient Medications Medication Sig Dispense Refill MULTIPLE VITAMIN PO TABS 1 TABLET DAILY 0 OMEGA-3 FISH OIL 1000 MG PO CAPS Take one capsule by mouth daily 0 Blood Glucose Monitoring Suppl ([employer] SYSTEM) W/DEVICE KIT Use as directed 4 [...] Pen Needle) Use once a day with CollegeSolvedaglar. DX e11.9 100 Each 3 Rhopressa 0.02 [...] MOUTH TWICE A DAY WITH BREAKFAST AND IINHNY303 Tablet 3 Insulin Glargine Solostar 100 UNIT/ML Subcutaneous Solution Pen-injector (Inspire Medical Systemsaglar KwikPen) Inject 48 Units under the skin in the morning. 45 mL 3 Acetic Acid 0.25 % Irrigation Solution Apply to legs as directed by the wound clinic. 1000 mL 2 OneTouch Verio In Vitro Strip (Glucose Blood) [...] by mouth in the morning. Epoetin Gautam-epbx 66996 UNIT/ML Injection Solution (Retacrit) Inject 2 mL intravenously once. Everytwo weeks Torsemide 20 MG Oral Tablet (Demadex) Take 1 Tablet by mouth in the morning. 90 Tablet 3 Vitamin D3 125 MCG (5000 UT) Oral Tablet Chewable Take by mouth. amLODIPine Besylate 2.5 MG Oral Tablet (Norvasc) Take 1 Tablet by mouth in the morning. 90 Tablet 5 Chlorthalidone 25 MG Oral Tablet (Hygroton) Take 1 Tablet by mouth in the morning. 90 Tablet 3 Atorvastatin Calcium 20 MG Oral Tablet (Lipitor) TAKE 1 TABLET BY MOUTH EVERY DAY IN THE MORNING 90Tablet 3 Current Facility-Administered Medications Medication Dose Route Frequency Provider Last Rate Last Admin bevaCIZumab (Avastin) inj 1.25 mg 1.25 mg Intravitreal PRN Mika Diaz, DO 1.25 mg at 06/13/23 1143 ROPivacaine (Naropin) inj 1.5 mg 1.5 mg Perineural PRN Mika Diaz, DO 1.5 mg at 144 Review of patient's allergies indicates: No Known Allergies Objective: BP 142/70 | Pulse 92 | Temp 36.8 C (98.2 F) | Wt (!) 146.8 kg (323 lb 9.6 oz) | SpO2 100% | BMI45.13 kg/m | BSA 2.71 m General: alert, healthy, no distress, well nourished, and well developed Heart: regular rate & rhythm and no murmur Lungs: chest symmetric with normal AP diameter, no chest deformities noted, normal respiratory rateand rhythm, lungs clear to auscultation Abdomen: abdomen soft and non-tender Extremities: legs are wrapped. I reviewed pictures on his phone of his legs from last night and they appear to be healing well without sign of infection. Neuro Exam: alert & oriented x 3 with fluent speech, no focal motor/sensory deficits, gait normal ASSESSMENT/PLAN: Stage 3a chronic kidney disease (Primary) - follows with Dr. Sims. Message sent to her regarding whether or not he should continue his sodium bicarb. - PHOSPHORUS; Future; Expected date: 09/04/2023 Type 2 diabetes mellitus with diabetic neuropathy, with long-term current use of insulin (HCC) - continue lantus 20 units. Advice given on how to restart his Ozempic. Hematemesis, unspecified whether nausea present - continue PPI, and refer for EGD. - UPPER ENDOSCOPY GI REFERRAL OP General weakness - advised activity as tolerated. HTN, goal below 130/80 - follows with [facility]. BP is improved here today, but still above goal. He notes that he is having trouble getting good home BP readings with his cuff. Anemia due to stage 3a chronic kidney disease (HCC) - on procrit. Follows with hematology. Other orders - Pantoprazole Sodium 40 MG Oral Tablet Delayed Release (Protonix); Take 1 Tablet by mouth in the morning. Follow Up: Return for as scheduled. | For: as scheduled Nancy Ryan DO I spent a total of Greater than 55 mins (exact time 56 mins) on the date of service in preparation,delivery, and documentation of the care provided to Ronnie Wu excluding any time spent in the performance of separately billed services. documented in this encounter Plan of Treatment Upcoming Encounters Date Type Department Care Team (Late st Contact Info) Description 09/05/2023 5:10 PM EST 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 Pharmacy, [address] [place] [address] [facility] [address] [place] [address] 09/16/2023 10:40 AM EST Laboratory Laboratory [address] [place] [phone] [facility] [address] [place] [address] 09/17/2023 1:00 PM EST Immunization/Injection Hematology/Oncolog y Treatment, [place] [address] [place] [address] Nurse, Med [address] [facility] [place] [address] 09/19/2023 1:00 PM EST Office Visit Nephrology [address] [place] [address] Alejandrina Sims MD [address] [place] [address] 09/20/2023 8:50 AM EST Office Visit Family Medicine [address] [place] [phone] [place] [address] 09/30/2023 10:40 AM EST Laboratory Laboratory [address] [place] [phone] [facility] [address] [place] [address] 10/01/2023 9:00 AM EST Office Visit Cardiology [address] [place] [address] Prabhakar Henning PA-C [address] [place] [address] 10/01/2023 1:00 PM EST Immunization/Injection Hematology/Oncolog y Treatment, [place] [address] [place] [address] Nurse, Med 4 [address] [place] [address] 10/15/2023 1:45 PM EST Office Visit Hematology/Oncolog y [facility] [address] [facility] [place] [address] Fly Velazquez MD [address] [place] [address] 10/23/2023 10:00 AM EDT Office Visit Sleep Disorders Ctr Manny Browne, [place] [address] [place] [phone] Dorothy Toscano CRNP [address] [place] [address] 10/24/2023 2:00 PM EDT Office Visit Ophthalmology, [facility] [address] [place] [address] Mika Diaz DO [address] [place] [address] 12/25/2023 2:00 PM EDT Office Visit Nephrology, [place] [address] [facility] [place] [address] Zemaitis, Beckie Tucker PA-C [address] [facility] [place] [address] Scheduled Procedures Name Priority Associated Diagnoses Date/Ti me COLONOSCOPY FLEXIBLE PROXIMAL DIAGNOSTIC Recall History of colon polyps Scheduled Referrals Name Type Priority Associated Diagnoses Orde r Schedule UPPER ENDOSCOPY GI REFERRAL OP Referral Within 30 days (routine) Hematemesis, unspecified whether nausea present Ordered: 09/04/2023 Health Maintenance Due Date Last Done Comments [...] Additional history exists CKD HGB USE SMARTSET 75043 09/02/202409/02, 09/02/2023, 08/23/2023, Additional history exists CKD PHOS USE SMARTSET 43303 09/02/202408/13, 09/18/2022, 08/29/2021, Additional history exists COLONOSCOPY-EVERY [...] this encounter Medical Devices Implanted Type Area Crew Leader Gluing Device Identifier Shelf Expiration Date Model / Serial / Lot Envista Hydrophobic Acrylic Intraocular Lens Implanted:Qty: 1 on 12/25/2016 by Raul Neely MD at OR [facility] Right: Eye [employer]OMB 11/09/2018 [id number] / [id number] / [id number] Envista Mx60 +10.0 D Implanted:Qty: 1 on 01/29/2017 by Raul Neely MD at OR [facility] Left: Eye 11/09/2018 [id number] / [id number] / [id number] documented as of this encounter Results * PHOSPHORUS (09/02/2023 10:36 AM EST) Phosphorus 3.8 2.5 - 4.8 mg/dL 09/04/2023 12:18 PM EST LAB[facility]ATORY [facility] Blood Venous blood specimen / Unknown Venipuncture / Unknown 09/02/2023 10:36 AM EST 09/02/2023 10:36 AM EST Nancy Ryan DO LAB BLOOD ORDERABLES LAB[facility]ATORY [facility] [address] [facility] [place] [address] documented in this encounter Visit Diagnoses Diagnosis Stage 3a chronic kidney disease- Primary Type 2 diabetes mellitus with diabetic neuropathy, with long-term current use of insulin (HCC) Hematemesis, unspecified whether nausea present General weakness Other malaise and fatigue HTN, goal below 130/80 Unspecified essential hypertension Anemia due to stage 3a chronic kidney [...] were consensually agreed upon. Care Teams Accounts Payable Payroll Coordinator Relationship Specialty Start Date End Date Nancy Ryan DO [address] [place] [address] [place] [address] PCP - General Internal Medicine 09/11/18 documented as of this encounter
--- OUTSIDE RECORDS SUMMARY | 2023-11-13 21:32 | External Medical Summary | Summary of Care ---
Author Name Unknown Organization [facility] Address [address] [place] [address] Phone [phone] Care Team Providers Care Bus Trolley And Taxi Instructor Name Role Phone Nancy Ryan DO Primary Care Provider Reason for Visit * Reason Onset Date Comments Advice 09/04/2023 Encounter Details Date Type Department Care Team (Late st Contact Info) Description 09/04/2023 Telephone Family Medicine [address] [phone] Nancy Ryan DO [address] [place] [address] [place] [address] Advice Allergies No known active allergiesdocumented as of this encounter (statuses as of 09/04/2023) Medications Medication Sig Dispensed Refills Start Date End Date Status MULTIPLE VITAMIN PO TABS 1 TABLET DAILY 0 07/03/2011 Active OMEGA-3 FISH OIL 1000 MG PO CAPS Take one capsule by mouth daily 0 07/03/2011 Active Blood Glucose Monitoring Suppl ([employer] ULTRA SYSTEM) W/DEVICE KITIndications:DM type 2, goal [...] the morning. 0 06/04/2023 Active Epoetin Gautam-epbx 72171 UNIT/ML Injection Solution (Retacrit) Inject 2 mL [...] Overview: Non-obstructive. Noted on CT scan at [facility] 05/2019 Mild nonproliferative diabet ic [...] Diabetes Taxonomy. 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 of inactive term senior care current use of anticoagulant therapy 0 03/16/2005 [...] mRNA, LNP-s, No Pre serve, 2-Dose Series (Augment) 06/20/2021,10/22/2020,09/26/2020 COVID-19, LNP-s, No Preserve , Jamie-sucrose, Ages 12+ (Pfizer) 03/13/2022 Covid-19, Mrna, Lnp-s, Pf, B ivalent, 30 Mcg, IM, 12 yrs and above (Augment) 09/20/2022 Pneumococcal Conjugate Vacci ne, 20-valent (Frxwieb23) 03/14/2022 Pneumococcal Polysaccharide PPV23 (Pneumovax) 03/19/2006 Seasonal [...] Description 09/05/2023 5:10 PM EST 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 Pharmacy, [address] [place] [address] [place] [address] 09/16/2023 10:40 AM EST Laboratory Laboratory [address] [place] [phone] [place] [address] 09/17/2023 1:00 PM EST Immunization/Injection Hematology/Oncolog y Treatment, [place] [facility] [address] [facility] [address] 09/19/2023 1:00 PM EST Office Visit Nephrology [address] [place] [address] [facility]rina Sims [facility] [address] [facility] [address] 09/20/2023 8:50 AM EST Office Visit Family Medicine [address] [place] [phone] [place] [address] 09/30/2023 10:40 AM EST Laboratory Laboratory [address] [place] [phone] [address] [place] [address] 10/01/2023 9:00 AM EST Office Visit Cardiology [address] [place] [address] Prabhakar Henning PA-C [address] [place] [address] 10/01/2023 1:00 PM EST Immunization/Injection Hematology/Oncolog y Treatment, [place] [address] [facility] [address] [facility], Med 4 200 [facility] [place] [address] 10/15/2023 1:45 PM EST Office Visit Hematology/Oncolog y [facility] [place] 200 [facility] [place] [address] Fly Velazquez MD 200 [facility] [place] [address] 10/23/2023 10:00 AM EDT Office Visit Sleep Disorders Ctr [facility] [address] [place] [phone] Dorothy Toscano CRNP [address] [place] [address] 10/24/2023 2:00 PM EDT Office Visit Ophthalmology, [facility] [address] [facility] [place] [address] Mika Diaz, DO [address] [place] [address] 12/25/2023 2:00 PM EDT Office Visit Nephrology, [facility] 200 [facility] [place] [address] ZemaBeckie umanzor PA-C 200 [facility] [place] [address] Scheduled Procedures Name Priority Associated Diagnoses Date/Ti [...] Additional history exists CKD HGB USE SMARTSET 67054 09/02/202409/02, 09/02/2023, 08/23/2023, Additional history exists CKD PHOS USE SMARTSET 14533 09/02/202408/13, 09/18/2022, 08/29/2021, Additional history exists COLONOSCOPY-EVERY [...] this encounter Medical Devices Implanted Type Area Founder And Ceo Device Identifier Shelf Expiration Date Model / Serial / Lot Envista Hydrophobic Acrylic Intraocular Lens Implanted:Qty: 1 on 12/25/2016 by Raul Neely MD at OR [facility] Right: Eye [employer]OM[employer] 11/09/2018 [id number] / [id number] / [id number] Envista Mx60 +10.0 D Implanted:Qty: 1 on 01/29/2017 by Raul Neely MD at OR [facility] Left: Eye 11/09/2018 [id number] / [id number] / [id number] documented as of this encounter Advance Directives [...] and were consensually agreed upon. Care Teams Bus Trolley And Taxi Instructor Relationship Specialty Start Date End Date Nancy Ryan DO [address] [place] [address] [place] [address] PCP - General Internal Medicine 09/11/18 documented as of this encounter
--- OUTSIDE RECORDS SUMMARY | 2023-11-13 21:32 | External Medical Summary | Summary of Care ---
Author Name Unknown Organization [facility] Address [address] [place] [address] Phone [phone] Care Team Providers Care Chalker Soles Name Role Phone Nancy Ryan DO Primary Care Provider Reason for Visit * Reason Onset Date Comments Appointment 09/04/2023 Upper endoscopy Encounter Details Date Type Department Care Team (Late st Contact Info) Description 09/04/2023 Telephone Family Medicine [address] [phone] Nancy Ryan DO [address] [place] [address] [place] [address] Appointment (Upper endoscopy ) Allergies No known active allergiesdocumented as of this encounter (statuses as of 09/04/2023) Medications Medication Sig Dispensed Refills Start Date End Date Status MULTIPLE VITAMIN PO TABS 1 TABLET DAILY 0 07/03/2011 Active OMEGA-3 FISH OIL 1000 MG PO CAPS Take one capsule by mouth daily 0 07/03/2011 Active Blood Glucose Monitoring Suppl (Shareablee ULTRA SYSTEM) W/DEVICE KITIndications:DM type 2, goal [...] neuropathy, with long-term current use of insulin ([facility]),Type 2 diabetes mellitus with hemoglobin A1c goal of less than 7.0% ([facility]) Use once a day with basaglar. [...] neuropathy, with long-term current use of insulin ([facility]) Use TWICE a day to test glucose Diagnosis = E11.9 200 Each 3 03/19/2023 Active Ozempic (2 MG/DOSE) 8 MG/3ML Subcutaneous Solution Pen-injector (Semaglutide (2 MG/DOSE))Indicatio ns:Type 2 diabetes mellitus with diabetic neuropathy, with long-term current use of insulin ([facility]) Inject 2 mg under the skin [...] neuropathy, with long-term current use of insulin ([facility]) Take 1 Tablet by mouth 2 [...] the morning. 0 06/04/2023 Active Epoetin Gautam-epbx 20274 UNIT/ML Injection Solution (Retacrit) Inject 2 mL [...] neuropathy, with long-term current use of insulin ([facility]) Inject 20 Units under the skin [...] Non-obstructive. Noted on CT scan at [facility] 05/2019 Mild nonproliferative diabet ic retinopathy [...] mRNA, LNP-s, No Pre serve, 2-Dose Series ([place] [facility] [place]) 06/20/2021,10/22/2020,09/26/2020 COVID-19, LNP-s, No Preserve , Jamie-sucrose, Ages 12+ (Pfizer) 03/13/2022 Covid-19, Mrna, Lnp-s, Pf, B ivalent, 30 Mcg, IM, 12 yrs and above ([place] [facility] [place]) 09/20/2022 Pneumococcal Conjugate Vacci ne, 20-valent ([id number]) 03/14/2022 Pneumococcal Polysaccharide PPV23 (Pneumovax) 03/19/2006 Seasonal [...] whether nausea present [K92.0] Comments Pt requests [facility] documented in this encounter Plan of Treatment Upcoming Encounters Date Type Department Care Team (Late st Contact Info) Description 09/05/2023 5:10 PM EST 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 Pharmacy, [address] [place] [address] [place] [address] 09/16/2023 10:40 AM EST Laboratory Laboratory [address] [place] [phone] [address] [place] [address] 09/17/2023 1:00 PM EST Immunization/Injection Hematology/Oncolog y Treatment, [place] [facility] [address] [facility] [address] 09/19/2023 1:00 PM EST Office Visit Nephrology [address] [place] [address] Alejandrina Sims MD [facility] [address] 09/20/2023 8:50 AM EST Office Visit Family Medicine [address] [place] [phone] [address] [place] [address] 09/30/2023 10:40 AM EST Laboratory Laboratory [address] [place] [phone] [address] [place] [address] 10/01/2023 9:00 AM EST Office Visit Cardiology [address] [place] [address] Prabhakar Henning PA-C [address] [place] [address] 10/01/2023 1:00 PM EST Immunization/Injection Hematology/Oncolog y Treatment, [place] 200 [facility] [place] [address] Nurse, Med 200 [facility] [place] [address] 10/15/2023 1:45 PM EST Office Visit Hematology/Oncolog y [facility] [place] 200 [facility] [place] [address] Fyl Velazquez MD 200 [facility] [place] [address] 10/23/2023 10:00 AM EDT Office Visit Sleep Disorders Ctr [facility] [address] [place] [phone] Dorothy Toscano CRNP [address] [place] [address] 10/24/2023 2:00 PM EDT Office Visit Ophthalmology, [facility] [address] [place] [address] Mika Diaz, [address] [place] [address] 12/25/2023 2:00 PM EDT Office Visit Nephrology, [facility] 200 [facility] [place] [address] ZeBeckie cruz PA-C 200 [facility] [place] [address] Scheduled Procedures Name Priority Associated Diagnoses Date/Ti [...] Additional history exists CKD HGB USE SMARTSET 16593 09/02/202409/02, 09/02/2023, 08/23/2023, Additional history exists CKD PHOS USE SMARTSET 04835 09/02/202408/13, 09/18/2022, 08/29/2021, Additional history exists COLONOSCOPY-EVERY [...] this encounter Medical Devices Implanted Type Area Marketing Engineer Device Identifier Shelf Expiration Date Model / Serial / Lot Envista Hydrophobic Acrylic Intraocular Lens Implanted:Qty: 1 on 12/25/2016 by Raul Neely MD at OR [facility] Right: Eye [employer] 11/09/2018 [id number] / [id number] / [id number] Envista Mx60 +10.0 D Implanted:Qty: 1 on 01/29/2017 by Raul Neely MD at OR [facility] Left: Eye 11/09/2018 [id number] / [id number] documented as of this encounter Advance Directives [...] and were consensually agreed upon. Care Teams Chalker Soles Relationship Specialty Start Date End Date Nancy Ryan DO [address] [place] [address] [place] [address] PCP - General Internal Medicine 09/11/18 documented as of this encounter
--- OUTSIDE RECORDS SUMMARY | 2023-11-13 21:32 | External Medical Summary | Summary of Care ---
Author Name Unknown Organization [facility] Address [address] [place] [facility] [place] [address] Phone [phone] Care Team Providers Care Mac Developer Name Role Phone Nancy Ryan DO Primary Care Provider Reason for Visit * Reason Comments Medication Administration Procrit * Episode Based Medications (Routine) - Authorized Specialty Diagnoses / Procedures Referred By Contac t Referred To Contact Diagnoses Anemia due to stage 3a chronic kidney disease (HCC) Procedures NM INJ RETACRIT NON-ESRD USE Tameka Pires CRNP 400 [facility] [place] [address] Anc Hem/Onc En [place] DEPT CLOSED - 06/25/[address] [place] [phone] Referral ID Status Reason Start Date Expiration Date V isits Requested Visits Authorized [id number] Authorized 04/01/2023 12/23/[phone] Encounter Details Date Type Department Care Team (Late st Contact Info) Description 09/03/2023 1:00 PM EST Immunization/I njection Hematology/Oncology Treatment, [place] [address] [place] [address] Nurse, Med [address] [place] [address] Anemia due to stage 3a chronic kidney disease ([facility])* Allergies No known active allergiesdocumented as of this encounter (statuses as of 09/03/2023) Medications Medication Sig Dispensed Refills Start Date End Date Status MULTIPLE VITAMIN PO TABS 1 TABLET DAILY 0 07/03/2011 Active OMEGA-3 FISH OIL 1000 MG PO CAPS Take one capsule by mouth daily 0 07/03/2011 Active Blood Glucose Monitoring Suppl (INFOGRAPHIQS SYSTEM) W/DEVICE KITIndications:DM type 2, goal A1c [...] neuropathy, with long-term current use of insulin ([facility]),Type 2 diabetes mellitus with hemoglobin A1c goal of less than 7.0% ([facility]) Use once a day with [...] AND DINNER 180 Tablet 3 12/10/2022 Active Insulin Glargine Solostar 100 UNIT/ML Subcutaneous Solution Pen-injector (Basaglar KwikPen)Indication s:Type 2 diabetes mellitus with diabetic neuropathy, with long-term current use of insulin ([facility]) Inject 48 Units under the skin in the morning. 45 mL 3 02/27/2023 Active Acetic Acid 0.25 % Irrigation Solution Apply to legs as directed by the wound clinic. 1000 mL 2 03/01/2023 Active OneTouch Verio In Vitro Strip (Glucose Blood) Use to test blood sugars twice a day. Dx. E11.9 300 Strip 1 03/13/2023 Active OneTouch Delica Lancets 30GIndications:Typ e 2 diabetes mellitus with diabetic neuropathy, with long-term current use of insulin ([facility]) Use TWICE a day to test glucose Diagnosis = E11.9 200 Each 3 03/19/2023 Active Ozempic (2 MG/DOSE) 8 MG/3ML Subcutaneous Solution Pen-injector (Semaglutide (2 MG/DOSE))Indicatio ns:Type 2 diabetes mellitus with diabetic neuropathy, with long-term current use of insulin ([facility]) Inject 2 mg under the [...] neuropathy, with long-term current use of insulin ([facility]) Take 1 Tablet by mouth 2 times a day with morning and evening meals. 180 Tablet 3 05/17/2023 Active Sodium Bicarbonate 650 MG Oral Tablet Take 2 Tablets by mouth in the morning and 2 Tablets at noon and 2 Tablets in the evening and 2 Tablets before bedtime. 60 Tablet 5 06/04/2023 Active Losartan Potassium 50 MG Oral Tablet (Cozaar) Take 0.5 Tablets by mouth in the morning. 0 06/04/2023 Active Epoetin Gautam-epbx 91428 UNIT/ML Injection Solution (Retacrit) Inject 2 mL intravenously once. Every two weeks 0 Active Torsemide 20 MG Oral Tablet (Demadex) Take 1 Tablet by mouth in the morning. 90 Tablet 3 06/28/2023 Active Vitamin D3 125 MCG (5000 UT) Oral Tablet Chewable Take by mouth. 0 Activ e amLODIPine Besylate 2.5 MG Oral Tablet (Norvasc) Take 1 Tablet by mouth in the morning. 90 Tablet 5 07/31/2023 Active Chlorthalidone 25 MG Oral Tablet (Hygroton) Take 1 Tablet by mouth in the morning. 90 Tablet 3 08/08/2023 Active Atorvastatin Calcium 20 MG Oral Tablet (Lipitor)Indicatio ns:Dyslipidemia, goal LDL below 70 TAKE 1 TABLET BY MOUTH EVERY DAY IN THE MORNING 90 Tablet 3 08/15/2023 Active Hospital, Clinic, or Other Facility Administered [...] as of this encounter (statuses as of 09/03/2023) Active Problems Problem Noted Date Diagnosed Date [...] Non-obstructive. Noted on CT scan at [facility] 05/2019 Mild nonproliferative diabet ic [...] Diabetes Taxonomy. 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 AHP Gout of wrist documented as of this encounter (statuses as of 09/03/2023) Resolved Problems Problem Noted Date Diagnosed Date [...] as of this encounter (statuses as of 09/03/2023) Immunizations Name Administration Dates Next Due COVID-19 mRNA, LNP-s, No Pre serve, 2-Dose Series (Pfizer) 06/20/2021,10/22/2020,09/26/2020 COVID-19, LNP-s, No Preserve , Jamie-sucrose, Ages 12+ (Pfizer) 03/13/2022 Covid-19, Mrna, Lnp-s, Pf, B ivalent, 30 Mcg, IM, 12 yrs and above (Pfizer) 09/20/2022 Pneumococcal Conjugate Vacci ne, 20-valent ([id number]) 03/14/2022 Pneumococcal Polysaccharide PPV23 (Pneumovax) 03/19/2006 Seasonal [...] on file documented as of this encounter Nursing Notes * Pat Trent LPN - 09/03/2023 1:27 PM EST Pt arrived for Procrit injection. Hgb 8.2. BP WNL. Administered in MARLENE. Pt tolerated well. To return in 2 weeks. Discharged in stable condition. documented in this encounter Plan of Treatment Upcoming Encounters Date Type Department Care Team (Late st Contact Info) Description 09/04/2023 11:10 AM EST Office Visit Family Medicine [address] [place] [phone] [address] [place] [address] 09/05/2023 5:10 PM EST 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 Pharmacy, [address] [place] [address] [place] [address] 09/16/2023 10:40 AM EST Laboratory Laboratory [address] [place] [phone] [facility] [address] [place] [address] 09/17/2023 1:00 PM EST Immunization/Injection Hematology/Oncolog y Treatment, [place] [address] [facility] [place] [address] Nurse, Med 4 [address] [facility] [place] [address] 09/19/2023 1:00 PM EST Office Visit Nephrology [address] [place] [address] Alejandrina Sims MD 200 [facility] [place] [address] 09/20/2023 8:50 AM EST Office Visit Family Medicine [address] [place] [phone] [place] [address] 09/30/2023 10:40 AM EST Laboratory Laboratory [address] [place] [phone] [place], Lab [address] [place] [address] 10/01/2023 9:00 AM EST Office Visit Cardiology [address] [place] [address] Prabhakar Henning PA-C [address] [place] [address] 10/01/2023 1:00 PM EST Immunization/Injection Hematology/Oncolog y Treatment, [place] 200 [facility] [place] [address] Nurse, Med 4 200 [facility] [place] [address] 10/15/2023 1:45 PM EST Office Visit Hematology/Oncolog y [facility] [place] [address] [facility] [address] [place] [address] Fly Velazquez MD 200 [facility] [place] [address] 10/23/2023 10:00 AM EDT Office Visit Sleep Disorders Ctr [facility] [place] [address] [place] [phone] Dorothy Toscano CRNP [address] [place] [address] 10/24/2023 2:00 PM EDT Office Visit Ophthalmology, [facility] [address] [place] [address] Mika Diaz DO [address] [place] [address] 12/25/2023 2:00 PM EDT Office Visit Nephrology, [facility] 200 [facility] [place] [address] ZemaitisBeckie PA-C 200 [facility] [place] [address] Scheduled Procedures Name Priority Associated Diagnoses Date/Ti [...] 2023 09/20/2022, 03/13/2022, 06/20/2021, Additional history exists CKD PHOS USE SMARTSET 65155 09/18/2023 02/0 02/2023, 08/29/2021, 08/02/2020, Additional history exists Diabetic Eye Exam 10/09/2023 10/09/2022, , 06/12/2022, Additional history exists HbA1c 01/14/2024 07/15/2023, 08/0 03/2023, 09/18/2022, Additional history exists Albumin/Creatinine Ratio 02/20/2024 023, 03/14/2022, 05/19/2021, Additional history exists GFR 03/02/2024 09/02/2023, 08/12, 07/29/2023, Additional history exists CKD HGB USE SMARTSET 59200 09/02/202409/02, 09/02/2023, 08/23/2023, Additional history exists COLONOSCOPY-EVERY 5 YRS AGES [...] this encounter Medical Devices Implanted Type Area Non Emergency Services Ambulance Driver Device Identifier Shelf Expiration Date Model / Serial / Lot Envista Hydrophobic Acrylic Intraocular Lens Implanted:Qty: 1 on 12/25/2016 by Raul Neely MD at OR [facility] Right: Eye [employer] 11/09/2018 [id number] / [id number] / [id number] Envista Mx60 +10.0 D Implanted:Qty: 1 on 01/29/2017 by Raul Neely MD at OR [facility] Left: Eye 11/09/2018 [id number] / [id number] / [id number] documented as of this encounter Visit Diagnoses Diagnosis Anemia due to stage 3a chronic kidney disease (HCC)- Primary documented in this encounter Administered Medications Inactive Administered Medications - up to 3 most recent administrations Medication Order MAR Action Action Date Dose Rate Site Epoetin Gautam 94952 UNIT/ML inj 40,000 Units 40,000 Units, Subcutaneous, ONCE, On Sat09/03/23 at 1345, For 1 dose Given 09/03/2023 1:15 PM EST 40,000 Units Arm Right Upper [...] and were consensually agreed upon. Care Teams Mac Developer Relationship Specialty Start Date End Date Nancy Ryan DO [address] [place] [address] [place] [address] PCP - General Internal Medicine 09/11/18 documented as of this encounter
--- OUTSIDE RECORDS SUMMARY | 2023-11-13 21:32 | External Medical Summary | Summary of Care ---
Author Name Unknown Organization [facility] Address [address] [place] [address] Phone [phone] Care Team Providers Care Camp Maintenance Supervisor Name Role Phone Nancy Ryan DO Primary Care Provider Reason for Visit * Reason Comments Dosage Adjustment Via Phone (anticoag Cl inic) Encounter Details Date Type Department Care Team (Latest Contact Info) Description 09/05/2023 5:10 PM EST 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 Pharmacy, [address] [place] [address] [place] [address] History of DVT (deep vein thrombosis)* Allergies No known active allergiesdocumented as of this encounter (statuses as of 09/05/2023) Medications Medication Sig Dispensed Refills Start Date End Date Status MULTIPLE VITAMIN PO TABS 1 TABLET DAILY 0 07/03/2011 Active OMEGA-3 FISH OIL 1000 MG PO CAPS Take one capsule by mouth daily 0 07/03/2011 Active Blood Glucose Monitoring Suppl (Airseed ULTRA SYSTEM) W/DEVICE KITIndications:DM type 2, goal [...] neuropathy, with long-term current use of insulin ([facility]),Type 2 diabetes mellitus with hemoglobin A1c goal of less than 7.0% ([facility]) Use once a day with [...] neuropathy, with long-term current use of insulin ([facility]) Use TWICE a day to test glucose Diagnosis = E11.9 200 Each 3 03/19/2023 Active Ozempic (2 MG/DOSE) 8 MG/3ML Subcutaneous Solution Pen-injector (Semaglutide (2 MG/DOSE))Indicatio ns:Type 2 diabetes mellitus with diabetic neuropathy, with long-term current use of insulin ([facility]) Inject 2 mg under the [...] neuropathy, with long-term current use of insulin ([facility]) Take 1 Tablet by mouth [...] the morning. 0 06/04/2023 Active Epoetin Gautam-epbx 96850 UNIT/ML Injection Solution (Retacrit) Inject 2 mL [...] neuropathy, with long-term current use of insulin ([facility]) Inject 20 Units under the [...] Non-obstructive. Noted on CT scan at [facility] 05/2019 Mild nonproliferative diabet ic retinopathy of [...] Diabetes Taxonomy. 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 0 03/16/2005 [...] mRNA, LNP-s, No Pre serve, 2-Dose Series ([place]) 06/20/2021,10/22/2020,09/26/2020 COVID-19, LNP-s, No Preserve , Jamie-sucrose, Ages 12+ (Pfizer) 03/13/2022 Covid-19, Mrna, Lnp-s, Pf, B ivalent, 30 Mcg, IM, 12 yrs and above ([place]) 09/20/2022 Pneumococcal Conjugate Vacci ne, 20-valent ([id number]) 03/14/2022 Pneumococcal Polysaccharide PPV23 (Pneumovax) 03/19/2006 Seasonal [...] of this encounter Progress Notes * Jena Haas, [facility] - 09/05/2023 8:52 AM EST Medication Therapy Disease Management - 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 Patient: Ronnie Jeffry Wu | : 1955 Patient had PCP visit on 09/04. Discussed Coumadin, will plan to remain off of anticoagulation. Discharge from [facility] at this time. Thank you for allowing us to participate in the care of this patient. Episode resolved. INR orders discontinued. Removed from [facility] clinic roster. Jena Haas [facility], PharmD Clinical Pharmacist Medication Therapy Disease Management 09/05/2023, 8:53 AM documented in this encounter Plan of Treatment Upcoming Encounters Date Type Department Care Team (Late st Contact Info) Description 09/16/2023 10:40 AM EST Laboratory Laboratory [address] [place] [phone] [address] [place] [address] 09/17/2023 1:00 PM EST Immunization/Injecti on Hematology/Oncology Treatment, [place] 200 [facility] [address] Nurse, Med 200 [facility] [address] 09/19/2023 1:00 PM EST Office Visit Nephrology [address] [place] [address] Alejandrina Sims MD 200 [facility] [place] [address] 09/20/2023 8:50 AM EST Office Visit Family Medicine [address] [place] [phone] Nancy Ryan[address] [place] [address] 09/30/2023 10:40 AM EST Laboratory Laboratory [address] [place] [phone] [place] [address] 10/01/2023 9:00 AM EST Office Visit Cardiology [address] [place] [address] Prabhakar Henning PA-C [address] [place] [address] 10/01/2023 1:00 PM EST Immunization/Injecti on Hematology/Oncology Treatment, [place] 200 [facility] [place] [address] Nurse, Med 200 [facility] [place] [address] 10/15/2023 1:45 PM EST Office Visit Hematology/Oncology [facility] 200 [facility] [place] [address] Fly Velazquez MD 200 [facility] [place] [address] 10/23/2023 10:00 AM EDT Office Visit Sleep Disorders Ctr [facility] [address] [place] [phone] Dorothy Toscano CRNP [address] [place] [address] 10/24/2023 2:00 PM EDT Office Visit Ophthalmology, [facility] [address] [place] [address] Mika Diaz DO [address] [place] [address] 12/25/2023 2:00 PM EDT Office Visit Nephrology, [facility] 200 [facility] [place] [address] Beckie Dunbar PA-C 200 [facility] [place] [address] Scheduled Procedures Name Priority Associated Diagnoses Date/Ti [...] Additional history exists CKD HGB USE SMARTSET 31885 09/02/202409/02, 09/02/2023, 08/23/2023, Additional history exists CKD PHOS USE SMARTSET 37139 09/02/202408/13, 09/18/2022, 08/29/2021, Additional history exists COLONOSCOPY-EVERY [...] this encounter Medical Devices Implanted Type Area Restaurant Front Manager Device Identifier Shelf Expiration Date Model / Serial / Lot Envista Hydrophobic Acrylic Intraocular Lens Implanted:Qty: 1 on 12/25/2016 by Raul Neely MD at OR [facility] Right: Eye [employer] 11/09/2018 [id number] / [id number] / [id number] Envista Mx60 +10.0 D Implanted:Qty: 1 on 01/29/2017 by Raul Neely MD at OR [facility] Left: Eye 11/09/2018 [id number] / [id number] / [id number] documented as of this encounter Visit Diagnoses Diagnosis History of DVT (deep vein thrombosis)- Primary Personal history of venous thrombosis and embolism documented in this encounter Advance Directives Latest [...] and were consensually agreed upon. Care Teams Camp Maintenance Supervisor Relationship Specialty Start Date End Date Nancy Ryan DO [address] [place] [address] [place] [phone] PCP - General Internal Medicine 09/11/18 documented as of this encounter"
--- OUTSIDE RECORDS SUMMARY | 2023-11-13 21:32 | External Medical Summary | Summary of Care ---
Author Name Unknown Organization [facility] Address [address] [place] [address] Phone [phone] Care Team Providers Care Comparison Shopper Name Role Phone Nacny Ryan DO Primary Care Provider Reason for Visit * Reason Onset Date Comments Advice 09/04/2023 Encounter Details Date Type Department Care Team (Late st Contact Info) Description 09/04/2023 Telephone Family Medicine [address] [phone] Nancy Ryan DO [address] [place] [address] [place] [address] Advice Allergies No known active allergiesdocumented as of this encounter (statuses as of 09/05/2023) Medications Medication Sig Dispensed Refills Start Date End Date Status MULTIPLE VITAMIN PO TABS 1 TABLET DAILY 0 07/03/2011 Active OMEGA-3 FISH OIL 1000 MG PO CAPS Take one capsule by mouth daily 0 07/03/2011 Active Blood Glucose Monitoring Suppl ([employer] ULTRA SYSTEM) W/DEVICE KITIndications:DM type 2, goal [...] neuropathy, with long-term current use of insulin ([facility]),Type 2 diabetes mellitus with hemoglobin A1c goal of less than 7.0% ([facility]) Use once a day with basaglar. DX [...] neuropathy, with long-term current use of insulin ([facility]) Use TWICE a day to test glucose Diagnosis = E11.9 200 Each 3 03/19/2023 Active Ozempic (2 MG/DOSE) 8 MG/3ML Subcutaneous Solution Pen-injector (Semaglutide (2 MG/DOSE))Indicatio ns:Type 2 diabetes mellitus with diabetic neuropathy, with long-term current use of insulin ([facility]) Inject 2 mg under the skin once [...] neuropathy, with long-term current use of insulin ([facility]) Take 1 Tablet by mouth 2 times [...] the morning. 0 06/04/2023 Active Epoetin Gautam-epbx 06513 UNIT/ML Injection Solution (Retacrit) Inject 2 mL [...] neuropathy, with long-term current use of insulin ([facility]) Inject 20 Units under the skin in [...] Overview: Non-obstructive. Noted on CT scan at [facility] 05/2019 Mild nonproliferative diabet [...] Diabetes Taxonomy. 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 of inactive term FDC current use of anticoagulant therapy 0 03/16/2005 [...] mRNA, LNP-s, No Pre serve, 2-Dose Series ([employer]) 06/20/2021,10/22/2020,09/26/2020 COVID-19, LNP-s, No Preserve , Jamie-sucrose, Ages 12+ (Pfizer) 03/13/2022 Covid-19, Mrna, Lnp-s, Pf, B ivalent, 30 Mcg, IM, 12 yrs and above ([employer]) 09/20/2022 Pneumococcal Conjugate Vacci ne, 20-valent ([id number]) 03/14/2022 Pneumococcal Polysaccharide PPV23 (Pneumovax) 03/19/2006 Seasonal [...] encounter Miscellaneous Notes * Telephone Encounter - Cristina Mckeon LPN - 09/05/2023 12:38 PM EST Pt is aware Dr Sims does recommend restarting Chorazidone as recommended by MTM Since patient has discontinued Norvasc and reduced Lorsartan Pt is to do a trial off the Sodium Bicarb Pt has follow up 2/8/24 in the office will bring Home BP machine at that time to validate Will discuss further labs in follow up at this visit Cristina Mckeon LPN * Telephone Encounter - Alejandrina Sims MD - 09/04/2023 9:57 PM EST Noted and appreciated Recommend -renal nV to validate home cuff -trial of holding sodium bicarbonate since labs are done after at least a week of of med -DO recommend chlorthalidone > we are adding that but we also stopped amlodipine and reduced losartan dosing Pls update pt MTM , pcp fyi * Telephone Encounter - Nancy Ryan DO - 09/04/2023 11:[address] Bethany Al is seeing me today and he is wondering if he still needs to take his sodium bicarb tablets. He just had blood work done a few days ago and he had not been taking the sodium bicarb for about a week prior to that (his prescription was for only 60 pills despite taking 8 per day). Can you let him/his know if he is to continue taking this, and send in a new script if so? He would like a 90-day supply if he is to continue it. [facility] pharmacy also advised that he restart his chlorthalidone, but he is concerned about being overmedicated. Home cuff is not reading consistently. BP here today is 142/70. documented in this encounter Plan of Treatment Upcoming Encounters Date Type Department Care Team (Latest Contact Info) Description 09/05/19 5:10 PM EST 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 Pharmacy, [address] [place] [address] [place] [address] History of DVT (deep vein thrombosis)* 09/16/19 10:40 AM EST Laboratory Laboratory [address] [place] [phone] [place] [address] 09/17/19 24 1:00 PM EST Immunization/Inject ion Hematology/Onc ology Treatment, [place] [address] [place] [address] Nurse, Med [facility] [place] [address] 09/19/19 24 1:00 PM EST Office Visit Nephrology [address] [place] [address] Alejandrina Sims MD [address] [facility] [place] [address] 09/20/19 24 8:50 AM EST Office Visit Family Medicine [address] [place] [phone] [address] [place] [address] 09/26/19 24 11:19 AM EST Hospital Encounter OR GL, Operating Room, [facility] - 4th Floor [address] [place] [address] Jayda Jeong, DO [address] [place] [address] 09/26/19 24 11:19 AM EST - 09/26/19 24 11:51 AM EST Surgery OR [facility], Operating Room, [facility] - 4th Floor [address] [place] [address] Jayda Jeong, DO [address] [place] [address] ESOPHAGOGASTRODUODENOSCOPY (EGD), FLEXIBLE, TRANSORAL, DIAGNOSTIC 09/30/19 24 10:40 AM EST Laboratory Laboratory [address] [place] [phone] [place], [address] [place] [address] 10/01/19 24 9:00 AM EST Office Visit Cardiology [address] [place] [address] Prabhakar Henning PAJoseC [address] [place] [address] 10/01/19 24 1:00 PM EST Immunization/Inject ion Hematology/Onc ology [facility], [place] [address] [place] [address] Nurse, Med [facility] [place] [address] 10/15/19 24 1:45 PM EST Office Visit Hematology/Onc ology [facility] [address] [place] [address] Fly Velazquez MD [address] [place] [address] 10/23/19 24 10:00 AM EDT Office Visit Sleep Disorders Ctr [facility] [address] [place] [phone] Dorothy Toscano CRNP [address] [place] [address] 10/24/19 24 2:00 PM EDT Office Visit Ophthalmology, [facility] [address] [place] [address] Mika Diaz, DO [address] [place] [address] 12/25/19 24 2:00 PM EDT Office Visit Nephrology, [place] [address] [place], [place] [address] ZemaitisBeckie PA-C [address] [place] [address] Scheduled Procedures Name Priority Associated Diagnoses Date/Ti [...] Additional history exists CKD HGB USE SMARTSET 55476 09/02/202409/02, 09/02/2023, 08/23/2023, Additional history exists CKD PHOS USE SMARTSET 57244 09/02/202408/13, 09/18/2022, 08/29/2021, Additional history exists COLONOSCOPY-EVERY [...] this encounter Medical Devices Implanted Type Area Podiatry Doctor Device Identifier Shelf Expiration Date Model / Serial / Lot Envista Hydrophobic Acrylic Intraocular Lens Implanted:Qty: 1 on 12/25/2016 by Raul Neely MD at OR [facility] Right: Eye [employer] 11/09/2018 [id number] / [id number] / [id number] Envista Mx60 +10.0 D Implanted:Qty: 1 on 01/29/2017 by Raul Neely MD at OR [facility] Left: Eye 11/09/2018 [id number] / [id number] / [id number] documented as of this encounter Advance Directives [...] and were consensually agreed upon. Care Teams Comparison Shopper Relationship Specialty Start Date End Date Nancy Ryan DO [address] [place] [address] [place] [phone] PCP - General Internal Medicine 09/11/18 documented as of this encounter
--- OUTSIDE RECORDS SUMMARY | 2023-11-13 21:32 | External Medical Summary | Summary of Care ---
Author Name Unknown Organization [facility] Address [address] [place] [address] Phone [phone] Care Team Providers Care Winchman/Crane Operator Name Role Phone Nancy Ryan DO Primary Care Provider Reason for Visit * Reason Onset Date Comments Appointment 09/04/2023 Upper endoscopy Encounter Details Date Type Department Care Team (Late st Contact Info) Description 09/04/2023 Telephone Family Medicine [address] [phone] Nancy Ryan DO [address] [place] [address] [place] [address] Appointment (Upper endoscopy ) Allergies No known active allergiesdocumented as of this encounter (statuses as of 09/04/2023) Medications Medication Sig Dispensed Refills Start Date End Date Status MULTIPLE VITAMIN PO TABS 1 TABLET DAILY 0 07/03/2011 Active OMEGA-3 FISH OIL 1000 MG PO CAPS Take one capsule by mouth daily 0 07/03/2011 Active Blood Glucose Monitoring Suppl ([employer] ULTRA SYSTEM) W/DEVICE KITIndications:DM type 2, goal [...] with long-term current use of insulin ([facility]),Type 2 diabetes mellitus with hemoglobin A1c goal of less than 7.0% ([facility]) Use once a day with basaglar. DX [...] with long-term current use of insulin ([facility]) Use TWICE a day to test glucose Diagnosis = E11.9 200 Each 3 03/19/2023 Active Ozempic (2 MG/DOSE) 8 MG/3ML Subcutaneous Solution Pen-injector (Semaglutide (2 MG/DOSE))Indicatio ns:Type 2 diabetes mellitus with diabetic neuropathy, with long-term current use of insulin ([facility]) Inject 2 mg under the skin once [...] with long-term current use of insulin ([facility]) Take 1 Tablet by mouth 2 times [...] the morning. 0 06/04/2023 Active Epoetin Gautam-epbx 97136 UNIT/ML Injection Solution (Retacrit) Inject 2 mL [...] with long-term current use of insulin ([facility]) Inject 20 Units under the skin in [...] Overview: Non-obstructive. Noted on CT scan at [facility] 05/2019 Mild nonproliferative diabet ic retinopathy [...] Diabetes Taxonomy. 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 documented in this encounter Plan of Treatment Upcoming Encounters Date Type Department Care Team (Late st Contact Info) Description 09/05/2023 5:10 PM EST 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 Pharmacy, [address] [place] [address] [place] [address] 09/16/2023 10:40 AM EST Laboratory Laboratory [address] [place] [phone] [address] [place] [address] 09/17/2023 1:00 PM EST Immunization/Injection Hematology/[facility]olog [facility], [place] [facility] [address] [facility] [address] 09/19/2023 1:00 PM EST Office Visit Nephrology [address] [place] [address] [facility] [address] 09/20/2023 8:50 AM EST Office Visit Family Medicine [address] [place] [phone] [address] [place] [address] 09/30/2023 10:40 AM EST Laboratory Laboratory [address] [place] [phone] [address] [place] [address] 10/01/2023 9:00 AM EST Office Visit Cardiology [address] [place] [address] Prabhakar Henning PA-C [address] [place] [address] 10/01/2023 1:00 PM EST Immunization/Injection Hematology/Oncolog y Treatment, [place] [address] [facility] [place] [address] Nurse, Med 200 [facility] [place] [address] 10/15/2023 1:45 PM EST Office Visit Hematology/Oncolog y [facility] [place] [address] [facility] [place] [address] Fly Velazquez MD 200 [facility] [place] [address] 10/23/2023 10:00 AM EDT Office Visit Sleep Disorders Ctr [facility] [address] [place] [phone] Dorothy Toscano CRNP [address] [place] [address] 10/24/2023 2:00 PM EDT Office Visit Ophthalmology, [facility] [address] [place] [address] Mika Diaz, [address] [place] [address] 12/25/2023 2:00 PM EDT Office Visit Nephrology, [facility] 200 [facility] [place] [address] ZeBeckie cruz PA-C 200 [facility] [place] [address] Scheduled Procedures Name Priority Associated Diagnoses Date/Ti [...] Additional history exists CKD HGB USE SMARTSET 29045 09/02/202409/02, 09/02/2023, 08/23/2023, Additional history exists CKD PHOS USE SMARTSET 27909 09/02/202408/13, 09/18/2022, 08/29/2021, Additional history exists COLONOSCOPY-EVERY [...] this encounter Medical Devices Implanted Type Area Neonatal Intensive Care Unit Nurse Device Identifier Shelf Expiration Date Model / Serial / Lot Envista Hydrophobic Acrylic Intraocular Lens Implanted:Qty: 1 on 12/25/2016 by Raul Neely MD at OR [facility] Right: Eye [employer] 11/09/2018 [id number] / [id number] / [id number] Envista Mx60 +10.0 D Implanted:Qty: 1 on 01/29/2017 by Raul Neely MD at OR [facility] Left: Eye 11/09/2018 [id number] / [id number] / [id number] documented as of this encounter Advance Directives [...] and were consensually agreed upon. Care Teams Winchman/Crane Operator Relationship Specialty Start Date End Date Nancy Ryan DO [address] [place] [address] [place] [address] PCP - General Internal Medicine 09/11/18 documented as of this encounter
--- OUTSIDE RECORDS SUMMARY | 2023-11-13 21:33 | External Medical Summary | Summary of Care ---
Author Name Unknown Organization [facility] Address [address] [place] [address] Phone [phone] Care Team Providers Care Sulfide Head Operator Name Role Phone Lacy Ryanraheem Muro Primary Care Provider Reason for Visit * Reason Onset Date Comments Home Monitoring Alarm 08/28/2023 Encounter Details Date Type Department Care Team (Late st Contact Info) Description 08/28/2023 Home Monitoring Care Coordination [address] [place] [address] Diane Hernandez LPN HTN, goal below 130/80* Allergies No known active allergiesdocumented as of this encounter (statuses as of 08/30/2023) Medications Medication Sig Dispensed Refills Start Date End Date Status MULTIPLE VITAMIN PO TABS 1 TABLET DAILY 0 07/03/2011 Active OMEGA-3 FISH OIL 1000 MG PO CAPS Take one capsule by mouth daily 0 07/03/2011 Active Blood Glucose Monitoring Suppl ([employer] ULTRA SYSTEM) W/DEVICE KITIndications:DM type 2, goal A1c below 7 Use as directed 4 times a day. Use up to four times a day as directed. Diagnosis = E11.9 1 Kit 0 06/29/2015 Active dorzolamide-timolo l (COSOPT OCUMETER PLUS) 2.23-0.68% ophthalmic solution INSTILL 1 DROP INTO BOTH EYES BY OPHTHALMIC ROUTE ONCE IN THE [facility] AND THE SECOND DROP AROUND [...] by mouth in the morning. 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 0 06/04/2023 Active Epoetin Gautam-epbx 68827 UNIT/ML Injection Solution (Retacrit) Inject 2 mL [...] as of this encounter (statuses as of 08/30/2023) Active Problems Problem Noted Date Diagnosed Date [...] Overview: Non-obstructive. Noted on CT scan at [facility] 05/2019 Mild nonproliferative diabet ic retinopathy [...] Diabetes Taxonomy. 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 AHP Gout of wrist documented as of this encounter (statuses as of 08/30/2023) Resolved Problems Problem Noted Date Diagnosed Date [...] as of this encounter (statuses as of 08/30/2023) Immunizations Name Administration Dates Next Due COVID-19 mRNA, LNP-s, No Pre serve, 2-Dose Series ([employer]) 06/20/2021,10/22/2020,09/26/2020 COVID-19, LNP-s, No Preserve , Jamie-sucrose, Ages 12+ ([employer]) 03/13/2022 Covid-19, Mrna, Lnp-s, Pf, B ivalent, 30 Mcg, IM, 12 yrs and above ([employer]) 09/20/2022 Pneumococcal Conjugate Vacci ne, 20-valent ([id number]) 03/14/2022 Pneumococcal Polysaccharide PPV23 (Pneumovax) 03/19/2006 Seasonal [...] of this encounter Progress Notes * Jena Haas RPh - 08/30/2023 11:54 AM EST Noted by MTM. Reminder placed to f/u upon lab result. Jena Haas RPh, PharmD Clinical Pharmacist - Automotive Electrical Helper Medication Therapy [facility] 08/30/2023, 11:54 AM [phone] * Carmela Trimble RN - 08/30/2023 11:09 AM EST TE with pt regarding resuming Chlorthalidone daily. States his swelling is improving. Aware to repeat lab in 1 week. Order placed. * Alejandrina Sims MD - 08/30/2023 8:48 AM EST Ok to resume chlorthal; check bmp 7-10 days after pls * Jena Haas RP - 08/30/2023 8:21 AM EST During recent hospital admission, the following changes were made upon discharge: Hypertension Medications: Torsemide 20mg daily Losartan 50mg 1/2 tablet daily (decreased to 12.5mg daily) Carvedilol 6.25mg BID Chlorthalidone 25mg daily (HELD) Amlodipine 2.5mg daily (STOPPED) * Alejandrina Sims MD - 08/30/2023 7:11 AM EST Med list states he's already on chlorthalidone; pls ensure med list accurate so we can discuss * Jena Haas RPh - 08/28/2023 1:58 PM EST Systolic Diastolic Pulse Systolic Diastolic 158 77 Average 148 79 153 81 146 82 High 90 90 151 90 Low 71 71 145 71 137 74 Range 19 19 Count 6 6 08/22/23 10:55 08/23/23 10:57 08/25/23 11:27 08/26/23 10:13 08/27/23 08:29 08/28/23 11:37 Systolic BP 137 mm/Hg [1] 145 mm/Hg (H) [1] 151 mm/Hg (H) [1] 146 mm/Hg (H) [1] 153 mm/Hg (H) [1] 158 mm/Hg (H) [1] Diastolic BP 74 mm/Hg [1] 71 mm/Hg [1] 90 mm/Hg [1] 82 mm/Hg [1] 81 mm/Hg [1] 77 mm/Hg [1] (H): Data is abnormally high [1] CH:VITAL_READING_TYPE=SPOT CH:PERIPHERAL_BRAND=[facility] BP averages elevated. Several HTN medication adjustments made during last hospitalization at [facility]. Updated BMP recently obtained. Dr Johansen [facility] f/u scheduled with you for 09/19. What are your thoughts on restarting Chlorthalidone now that BMP is obtained? Jena Haas [facility], PharmD Clinical Pharmacist - Automotive Electrical Helper Medication Therapy [facility] 08/28/2023, 2:01 PM [phone] * Diane Hernandez LPN - 08/28/2023 12:44 PM EST Ronnie Wu [phone] Ronnie Wu is currently participating in the [facility] Hypertension Management Program and had areading on 08/28/23 of . Pt has alerted for an [...] Diane Hernandez LPN documented in this encounter Miscellaneous Notes * Addendum Note - Carmela Trimble RN - 08/30/2023 11:10 AM ESTAddended by: CARMELA TRIMBLE on: 08/30/2023 11:10 AM Modules accepted: Orders documented in this encounter Plan of Treatment Upcoming Encounters Date Type Department Care Team (Late st Contact Info) Description 09/02/2023 10:40 AM EST Laboratory Laboratory [address] [place] [phone] [place], [facility] [address] [place] [address] 09/02/2023 1:00 PM EST Office Visit Ophthalmology, [facility] [address] [place] [address] Mika Diaz [address] [place] [address] 09/03/2023 1:00 PM EST Immunization/Injection Hematology/Oncolog y Treatment, [place] [address] [facility] [address] Nurse, Med 4 [address] [facility] [address] 09/04/2023 11:10 AM EST Office Visit Family Medicine [address] [place] [phone] Nancy Ryan[address] [place] [address] 09/05/2023 5:10 PM EST 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 Pharmacy, [address] [place] [address] [address] [place] [address] 09/19/2023 1:00 PM EST Office Visit Nephrology [address] [place] [address] Alejandrina Sims MD [address] [place] [address] 09/20/2023 8:50 AM EST Office Visit Family Medicine [address] [place] [phone] [place] [address] 10/01/2023 9:00 AM EST Office Visit Cardiology [address] [place] [address] Prabhakar Henning PAJoseC [address] [place] [address] 10/15/2023 1:45 PM EST Office Visit Hematology/Oncolog y [employer] [address] [place] [address] Fly Velazquez MD [address] [place] [address] 10/23/2023 10:00 AM EDT [facility] [address] [place] [phone] Dorothy Toscano CRNP [address] [place] [address] 12/25/2023 2:00 PM EDT Office Visit Nephrology, [facility] [address] [place] [address] Beckie Dunbar PAJoseC [address] [place] [address] Scheduled Orders Name Type Priority Associated Diagnoses Orde r Schedule BASIC METABOLIC PANEL Lab Routine HTN, goal below 130/80 Expected: 09/06/2023 (Approximate), Expires: 08/30/2024 Scheduled Procedures Name Priority Associated Diagnoses Date/Ti [...] Additional history exists CKD PHOS USE SMARTSET 91166 09/18/2023 02/0 02/2023, 08/29/2021, 08/02/2020, Additional history exists Diabetic Eye Exam 10/09/2023 10/09/2022, , 06/12/2022, Additional history exists HbA1c 01/14/2024 07/15/2023, 08/0 03/2023, 09/18/2022, Additional history exists Albumin/Creatinine Ratio 02/20/202402/19/ 023, 03/14/2022, 05/19/2021, Additional history exists GFR 02/21/2024 08/23/2023, 07/12, 07/15/2023, Additional history exists CKD HGB USE SMARTSET 04249 08/23/202408/23, 07/29/2023, 07/29/2023, Additional history exists COLONOSCOPY-EVERY 5 YRS AGES [...] this encounter Medical Devices Implanted Type Area Stonemason Apprentice Device Identifier Shelf Expiration Date Model / Serial / Lot Envista Hydrophobic Acrylic Intraocular Lens Implanted:Qty: 1 on 12/25/2016 by Raul Neely MD at OR [facility] Right: Eye [employer] 11/09/2018 [id number] / [id number] / [id number] Envista Mx60 +10.0 D Implanted:Qty: 1 on 01/29/2017 by Raul Neely MD at OR [facility] Left: Eye 11/09/2018 [id number] / [id number] / [id number] documented as of this encounter Visit Diagnoses Diagnosis HTN, goal below 130/80- Primary Unspecified essential hypertension documented in this encounter Advance Directives Latest [...] and were consensually agreed upon. Care Teams Sulfide Head Operator Relationship Specialty Start Date End Date Nancy Ryan DO [address] [place] [address] [place] [address] PCP - General Internal Medicine 09/11/18 documented as of this encounter
--- OUTSIDE RECORDS SUMMARY | 2023-11-13 21:33 | External Medical Summary ---
Author Name Unknown Address Unknown Organization K01:LABORATORY C - [address] [place] [address] Laboratory Report Ordering Provider Test Date Status ALEXANDRIA MASON 09/02/2023 10:36:44 Final Observation Date Value Abnormality Reference (Units ) Status Phosphate 09/02/2023 10:36:44 3.8 2.5-4.8 (m g/dL) Final Performing Location [facility] - [address] [place] [address]
--- OUTSIDE RECORDS SUMMARY | 2023-11-13 21:33 | External Medical Summary ---
Author Name Unknown Address Unknown Organization K01:LABORATORY [facility] [place] - [address] [place] [address] Laboratory Report Ordering Provider Test Date Status JANI CHUNG 09/02/2023 10:36:44 Final Observation Date Value Abnormality Reference (Units ) Status Albumin 09/02/2023 10:36:44 3.2 Below low normal 3.8-5.0 (g/dL) Final AST (Aspartate aminotransferase) 09/02/2023 10:36:44 17 10-50 (U/L) Final Alk Phos 09/02/2023 10:36:44 73 35-130 (U/L) Final ALT (Alanine aminotransferase) 09/02/2023 10:36:44 14 10-50 (U/L) Final Bilirubin, Total 09/02/2023 10:36:44 0.5 <=1.2 (mg/dL) Final Bilirubin, Direct 09/02/2023 10:36:44 <0.2 0.0-0.3 (mg/dL) Final Protein 09/02/2023 10:36:44 6.9 6.0-8.3 (g/dL) Final Performing Location LABORATORY [facility] [place] - [address] [place] [address]
--- OUTSIDE RECORDS SUMMARY | 2023-11-13 21:33 | External Medical Summary | Summary of Care ---
Author Name Unknown Organization [facility] Address [address] [place] [address] Phone [phone] Care Team Providers Care Supervisor Finishing Room Name Role Phone Lacy Ryanraheem Muro Primary Care Provider Reason for Visit * Reason Onset Date Comments Home Monitoring Alarm 08/28/2023 Encounter Details Date Type Department Care Team (Late st Contact Info) Description 08/28/2023 Home Monitoring Care Coordination [address] [place] [address] Diane Hernandez LPN HTN, goal below 130/80* Allergies No known active allergiesdocumented as of this encounter (statuses as of 08/30/2023) Medications Medication Sig Dispensed Refills Start Date End Date Status MULTIPLE VITAMIN PO TABS 1 TABLET DAILY 0 07/03/2011 Active OMEGA-3 FISH OIL 1000 MG PO CAPS Take one capsule by mouth daily 0 07/03/2011 Active Blood Glucose Monitoring Suppl ([place] ULTRA SYSTEM) W/DEVICE KITIndications:DM type 2, goal A1c below 7 Use as directed 4 times a day. Use up to four times a day as directed. 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) Inject 48 Units under the [...] neuropathy, with long-term current use of insulin ([facility]) Inject 2 mg under the [...] neuropathy, with long-term current use of insulin ([facility]) Take 1 Tablet by mouth [...] the morning. 0 06/04/2023 Active Epoetin Gautam-epbx 99457 UNIT/ML Injection Solution (Retacrit) Inject 2 mL [...] Overview: Non-obstructive. Noted on CT scan at [facility] 05/2019 Mild nonproliferative diabet ic [...] Diabetes Taxonomy. 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 Reminder placed to f/u upon lab result. Hypertension Medications: Torsemide 20mg daily Losartan 50mg 1/2 tablet daily (decreased to 12.5mg daily) Carvedilol 6.25mg BID RESTART Chlorthalidone 25mg daily Amlodipine 2.5mg daily (STOPPED) Jena Haas RPh, PharmD Clinical Pharmacist - Rivet Spinner [facility] 08/30/2023, 11:54 AM [phone] * Carmela Trimble RN - 08/30/2023 11:09 AM EST TE with pt regarding resuming Chlorthalidone daily. States his swelling is improving. Aware to repeat lab in 1 week. Order placed. * Alejandrina Sims MD - 08/30/2023 8:48 AM EST Ok to resume chlorthal; check bmp 7-10 days after pls * Jena Haas [facility] - 08/30/2023 8:21 AM EST During recent [...] so we can discuss * Jena Haas RP - 08/28/2023 1:58 PM EST Systolic Diastolic [...] medication adjustments made during last hospitalization at [facility]. Updated BMP recently obtained. Dr Johansen - [facility] f/u scheduled with you for 09/19. What are your thoughts on restarting Chlorthalidone now that BMP is obtained? Jena Haas [facility], PharmD Clinical Pharmacist - [facility] 08/28/2023, 2:01 PM [phone] * Diane Hernandez LPN - 08/28/2023 12:44 PM EST Ronnie Wu [phone] Ronnie Jeffry Wu is currently participating in the [employer] Hypertension Management Program and had areading on 08/28/23 of 158/77. Pt has alerted for an Average BP [...] Description 09/02/2023 10:40 AM EST Laboratory Laboratory [address] [place] [phone] [address] [place] [address] 09/02/2023 1:00 PM EST Office Visit Ophthalmology, [facility] [place] [address] Mika Diaz [address] [place] [address] 09/03/2023 1:00 PM EST Immunization/Injection Hematology/Oncolog y Treatment, [place] [facility] [address] [facility] [address] 09/04/2023 11:10 AM EST Office Visit Family Medicine [address] [place] [phone] [address]any[address] [place] [address] 09/05/2023 5:10 PM EST 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 Pharmacy, [address] [place] [address] [place] [address] 09/19/2023 1:00 PM EST Office Visit Nephrology [address] [place] [address] Alejandrina Sims MD 200 [facility] [place] [address] 09/20/2023 8:50 AM EST Office Visit Family Medicine [address] [place] [phone] Nancy [address] [place] [address] 10/01/2023 9:00 AM EST Office Visit Cardiology [address] [place] [address] Prabhakar Henning PA-C [address] [place] [address] 10/15/2023 1:45 PM EST Office Visit Hematology/Oncolog y [facility] 200 [facility] [place] [address] Fly Velazquez MD [address] [place] [address] 10/23/2023 10:00 AM EDT Office Visit Sleep Disorders Ctr Manny Browne, [place] [address] [place] [phone] Dorothy Toscano CRNP [address] [place] [address] 12/25/2023 2:00 PM EDT Office Visit Nephrology, [facility] [address] [place], [place] [address] ZeBeckie cruz PA-C [address] [place] [address] Scheduled Orders Name Type Priority Associated Diagnoses [...] Additional history exists CKD PHOS USE SMARTSET 20639 09/18/2023 02/0 02/2023, 08/29/2021, 08/02/2020, Additional history exists Diabetic Eye Exam 10/09/2023 10/09/2022, , 06/12/2022, Additional history exists HbA1c 01/14/2024 07/15/2023, 0803/2023, 09/18/2022, Additional history exists Albumin/Creatinine Ratio 02/20/2024 023, 03/14/2022, 05/19/2021, Additional history exists GFR 02/21/2024 08/23/2023, 07/12, 07/15/2023, Additional history exists CKD HGB USE SMARTSET 55237 08/23/202408/23, 07/29/2023, 07/29/2023, Additional history exists COLONOSCOPY-EVERY [...] this encounter Medical Devices Implanted Type Area Semiconductor Dies Loader Device Identifier Shelf Expiration Date Model / Serial / Lot Envista Hydrophobic Acrylic Intraocular Lens Implanted:Qty: 1 on 12/25/2016 by Raul Neely MD at OR [facility] Right: Eye [employer]OM[employer] 11/09/2018 [id number] / [id number] / [id number] Envista Mx60 +10.0 D Implanted:Qty: 1 on 01/29/2017 by Raul Neely MD at OR [facility] Left: Eye 11/09/2018 [id number] / [id number] documented as of this encounter Visit Diagnoses [...] and were consensually agreed upon. Care Teams Supervisor Finishing Room Relationship Specialty Start Date End Date Nancy Ryan DO [address] [place] [address] [place] [phone] PCP - General Internal Medicine 09/11/18 documented as of this encounter
--- OUTSIDE RECORDS SUMMARY | 2023-11-13 21:33 | External Medical Summary ---
Author Name Unknown Address Unknown Organization K01:[place] [place] [address] [address] Laboratory Report Ordering Provider Test Date Status JANI CHUNG 09/02/2023 10:36:44 Final Observation Date Value Abnormality Reference (Units ) Status Uric Acid 09/02/2023 10:36:44 5.4 3.4-7.0 (m g/dL) Final Performing Location LABORATORY C - [address] [place] [address]
--- OUTSIDE RECORDS SUMMARY | 2023-11-13 21:33 | External Medical Summary | Summary of Care ---
Author Name Unknown Organization [facility] Address [address] [place] [address] Phone [phone] Care Team Providers Care Safety Instruction Police Officer Name Role Phone Lacy Ryanraheem Muro Primary Care Provider [phone] Reason for Visit * Reason Onset Date Comments Home Monitoring Alarm 08/28/2023 Encounter Details Date Type Department Care Team (Late st Contact Info) Description 08/28/2023 Home Monitoring Care Coordination [address] [place] [address] Diane Hernandez LPN HTN, goal below 130/80* Allergies No known active allergiesdocumented as of this encounter (statuses as of 08/30/2023) Medications Medication Sig Dispensed Refills Start Date End Date Status MULTIPLE VITAMIN PO TABS 1 TABLET DAILY 0 07/03/2011 Active OMEGA-3 FISH OIL 1000 MG PO CAPS Take one capsule by mouth daily 0 07/03/2011 Active Blood Glucose Monitoring Suppl ([employer] ULTRA SYSTEM) W/DEVICE KITIndications:DM type 2, goal A1c below 7 Use as directed 4 times a day. Use up to four times a day as directed. 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 0 06/04/2023 Active Epoetin Gautam-epbx 66923 UNIT/ML Injection Solution (Retacrit) Inject 2 mL [...] Non-obstructive. Noted on CT scan at [facility] 05/2019 Mild nonproliferative diabet ic retinopathy [...] Diabetes Taxonomy. 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 States his swelling is improving. Aware to repeat lab in 1 week. Order placed. * Alejandrina Sims MD - 08/30/2023 8:48 AM EST Ok to resume chlorthal; check bmp 7-10 days after pls * Jena Haas [facility] - 08/30/2023 8:21 AM EST During recent [...] so we can discuss * Jena Haas [facility] - 08/28/2023 1:58 PM EST Systolic Diastolic [...] medication adjustments made during last hospitalization at [facility]. Updated BMP recently obtained. Dr Johansen [facility] f/u scheduled with you for 09/19. What are your thoughts on restarting Chlorthalidone now that BMP is obtained? Jena Haas RPh, PharmD Clinical Pharmacist - Plug Machine Operator Medication Therapy [facility] 08/28/2023, 2:01 PM [phone] * Diane Hernandez LPN - 08/28/2023 12:44 PM EST Ronnie Wu [id number] Ronnie Wu is currently participating in the [...] Team (Late st Contact Info) Description 09/02/2023 1:00 PM EST Office Visit Ophthalmology, [facility] [address] [place] [address] Mika Diaz DO [facility] [address] [place] [address] 09/04/2023 11:10 AM EST Office Visit Family Medicine [address] [place] [phone] Nancy Ryan [address] [place] [address] 09/05/2023 5:10 PM EST 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 Pharmacy, [address] [place] [address] [place] [address] 09/19/2023 1:00 PM EST Office Visit Nephrology [address] [place] [address] Alejandrina Sims MD 200 [facility] [address] 09/20/2023 8:50 AM EST Office Visit Family Medicine [address] [place] [phone] Nancy Ryan [address] [place] [address] 10/01/2023 9:00 AM EST Office Visit Cardiology [address] [place] [address] Prabhakar Henning PA-C [address] [place] [address] 10/15/2023 1:45 PM EST Office Visit Hematology/Oncology [facility] 200 [facility], [place] [address] Fly Velazquez MD 200 [facility] [address] 10/23/2023 10:00 AM EDT [facility] [address] [place] [phone] Dorothy Toscano CRNP [address] [place] [address] 12/25/2023 2:00 PM EDT Office Visit Nephrology, [facility] 200 [facility] [place] [address] ZeBeckie cruz PA-C 200 [facility] [address] Scheduled Orders Name Type Priority Associated Diagnoses [...] Additional history exists CKD PHOS USE SMARTSET 87179 09/18/2023 02/0 02/2023, 08/29/2021, 08/02/2020, Additional history exists Diabetic Eye Exam 10/09/2023 10/09/2022, , 06/12/2022, Additional history exists HbA1c 01/14/2024 07/15/2023, 080 03/2023, 09/18/2022, Additional history exists Albumin/Creatinine Ratio 02/20/2024 023, 03/14/2022, 05/19/2021, Additional history exists GFR 02/21/2024 08/23/2023, 07/12, 07/15/2023, Additional history exists CKD HGB USE SMARTSET 61784 08/23/202408/23, 07/29/2023, 07/29/2023, Additional history exists COLONOSCOPY-EVERY 5 YRS AGES 18-100 02/09/2027 02/09/2022, 09/11/2018, 12/07/2008 Lipid Panel 02/11/2028 02/10/2023, 080 10/2021, 05/19/2021, Additional history exists DTaP,Tdap,and Td [...] this encounter Medical Devices Implanted Type Area Trencher Driver Device Identifier Shelf Expiration Date Model / Serial / Lot Envista Hydrophobic Acrylic Intraocular Lens Implanted:Qty: 1 on 12/25/2016 by Raul Neely MD at OR [facility] Right: Eye [employer] 11/09/2018 [id number] / [id number] / [id number] Envista Mx60 +10.0 D Implanted:Qty: 1 on 01/29/2017 by Raul Neely MD at [facility] Left: Eye 11/09/2018 [id number] / [id number] / [id number] documented as of this encounter Visit Diagnoses [...] and were consensually agreed upon. Care Teams Safety Instruction Police Officer Relationship Specialty Start Date End Date Nancy Ryan DO [address] [place] [address] [place] [address] PCP - General Internal Medicine 09/11/18 documented as of this encounter
--- OUTSIDE RECORDS SUMMARY | 2023-11-13 21:33 | External Medical Summary | Summary of Care ---
Author Name Unknown Organization [facility] Address [address] [place] [address] Phone [phone] Care Team Providers Care Director Of Graduate Medical Education Name Role Phone Nancy Ryan Murolalo ALVAREZ Primary Care Provider [phone] Encounter Details Date Type Department Care Team (Late st Contact Info) Description 08/27/2023 Telephone Pharmacy, [address] [place] [address] [facility] 200 [place] [address] Allergies No known active allergiesdocumented as of this encounter (statuses as of 08/30/2023) Medications Medication Sig Dispensed Refills Start Date End Date Status MULTIPLE VITAMIN PO TABS 1 TABLET DAILY 0 07/03/2011 Active OMEGA-3 FISH OIL 1000 MG PO CAPS Take one capsule by mouth daily 0 07/03/2011 Active Blood Glucose Monitoring Suppl ([employer] ULTRA SYSTEM) W/DEVICE KITIndications:DM type 2, goal [...] with long-term current use of insulin ([facility]),Type 2 diabetes mellitus with hemoglobin [...] of DVT (deep vein thrombosis),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 management encounter,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 therapy Take 5 [...] with long-term current use of insulin ([facility]) Inject 48 Units under the [...] with long-term current use of insulin ([facility]) Use TWICE a day to test glucose Diagnosis = E11.9 200 Each 3 03/19/2023 Active Ozempic (2 MG/DOSE) 8 MG/3ML Subcutaneous Solution Pen-injector (Semaglutide (2 MG/DOSE))Indicatio ns:Type 2 diabetes mellitus with diabetic neuropathy, with long-term current use of insulin ([facility]) Inject 2 mg under the [...] with long-term current use of insulin ([facility]) Take 1 Tablet by mouth [...] the morning. 0 06/04/2023 Active Epoetin Gautam-epbx 35257 UNIT/ML Injection Solution (Retacrit) Inject 2 mL [...] Diabetes Taxonomy. 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 of inactive term long-term current use of anticoagulant therapy 0 03/16/2005 [...] mRNA, LNP-s, No Pre serve, 2-Dose Series ([employer]) 06/20/2021,10/22/2020,09/26/2020 COVID-19, LNP-s, No Preserve , Jamie-sucrose, Ages 12+ ([employer]) 03/13/2022 Covid-19, Mrna, Lnp-s, Pf, B ivalent, 30 Mcg, IM, 12 yrs and above (Pfizer) 09/20/2022 Pneumococcal Conjugate Vacci ne, 20-valent ([id number]) 03/14/2022 Pneumococcal Polysaccharide PPV23 (Pneumovax) 03/19/2006 Seasonal [...] encounter Miscellaneous Notes * Telephone Encounter - Kenya Rosas OSA - 08/30/2023 11:40 AM EST Called and spoke to patient and he is scheduled for procrit for 09/03/23 with lab work day prior. * Telephone Encounter - Maggie Cabral RN - 08/30/2023 10:40 AM EST Per discharge summary, patient received procrit 40,000 units on 08/14/23. Dr Velazquez: LISSETTI on discharge Scheduling: please call patient to schedule - labs "CBCd" - injection appt "procrit" (Marcus) Thanks! * Telephone Encounter - Nancy Ryan DO - 08/28/2023 10:48 AM EST 1 mg x 1-2 weeks is reasonable, as long as he does not have GI intolerance. * Telephone Encounter - Jena Haas RPh - 08/27/2023 4:41 PM EST Patient Phone Numbers Called and spoke with patient regarding 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/HTN. However several questions regarding DMand Procrit injections as well. Dr Ryan - Patient reports he had not taken Ozempic 2mg shot x1 weeks as he was not able to obtain.Instructed to reduce to 1mg x1-2 weeks (36 "clicks") prior to taking full 2mg dose. Patient expressed understanding. Let me know if any further recommendations at this time. Follow up visit with you scheduled for 09/04. Maggie - Patient received Procrit injection while at [facility]. Patient now discharged, inquiring on scheduling next injection. Thank you! Jena Haas RPh, PharmD Clinical Pharmacist - Metallurgical Specialist Medication Therapy [facility] 08/27/2023, 4:46 PM [phone] documented in this encounter Plan of Treatment Upcoming Encounters Date Type Department Care Team (Late st Contact Info) Description 09/02/2023 10:40 AM EST Laboratory Laboratory [address] [place] [phone] [place] [address] 09/02/2023 1:00 PM EST Office Visit Ophthalmology, [facility] [address] [place] [address] Mika Diaz DO [address] [place] [address] 09/03/2023 1:00 PM EST Immunization/Injection Hematology/Oncolog y Treatment, [place] 200 [facility] [place] [address] Nurse, Med 200 [facility] [place] [address] 09/04/2023 11:10 AM EST Office Visit Family Medicine [address] [place] [phone] Nancy [address] [place] [address] 09/05/2023 5:10 PM EST 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 Pharmacy, [address] [place] [address] [place] [address] 09/19/2023 1:00 PM EST Office Visit Nephrology [address] [place] [address] Alejandrina Sims MD [address] [place] [address] 09/20/2023 8:50 AM EST Office Visit Family Medicine [address] [place] [phone] [place] [address] 10/01/2023 9:00 AM EST Office Visit Cardiology [address] [place] [address] Prabhakar Henning PAJoseC [address] [place] [address] 10/15/2023 1:45 PM EST Office Visit Hematology/Oncolog y [facility] 200 [facility] [place] [address] Fly Velazquez MD 200 [facility] [place] [address] 10/23/2023 10:00 AM EDT Office Visit Sleep Disorders Ctr [facility] [address] [place] [phone] Dorothy Toscano CRNP [address] [place] [address] 12/25/2023 2:00 PM EDT Office Visit Nephrology, [facility] [address] [place] [address] ZemaBeckie umanzor PA-C 200 [facility] [place] [address] Scheduled Procedures Name Priority Associated Diagnoses Date/Ti [...] Additional history exists CKD PHOS USE SMARTSET 29636 09/18/2023 020 02/2023, 08/29/2021, 08/02/2020, Additional history exists Diabetic Eye Exam 10/09/2023 10/09/2022, , 06/12/2022, Additional history exists HbA1c 01/14/2024 07/15/2023, 080 03/2023, 09/18/2022, Additional history exists Albumin/Creatinine Ratio 02/20/2024 023, 03/14/2022, 05/19/2021, Additional history exists GFR 02/21/2024 08/23/2023, 07/12, 07/15/2023, Additional history exists CKD HGB USE SMARTSET 82058 08/23/202408/23, 07/29/2023, 07/29/2023, Additional history exists COLONOSCOPY-EVERY [...] this encounter Medical Devices Implanted Type Area Airborne Mission Systems Superintendent Device Identifier Shelf Expiration Date Model / Serial / Lot Envista Hydrophobic Acrylic Intraocular Lens Implanted:Qty: 1 on 12/25/2016 by Raul Neely MD at OR [facility] Right: Eye [employer] 11/09/2018 [id number] / [id number] / [id number] Envista Mx60 +10.0 D Implanted:Qty: 1 on 01/29/2017 by Raul Neely MD at OR [facility] Left: Eye 11/09/2018 [id number] / [id number] documented as of this encounter Advance Directives [...] and were consensually agreed upon. Care Teams Director Of Graduate Medical Education Relationship Specialty Start Date End Date Nancy Ryan DO [address] [place] [address] [place] [address] PCP - General Internal Medicine 09/11/18 documented as of this encounter
--- OUTSIDE RECORDS SUMMARY | 2023-11-13 21:33 | External Medical Summary ---
Author Name Unknown Address Unknown Organization K01:[facility] [facility] [place] [address] [place] [address] Laboratory Report Ordering Provider Test Date Status JANE WOODRUFF 09/02/2023 10:36:44 Final Observation Date Value Abnormality Reference (Units ) Status Ovalocytes [Presence] in Blood by Light microscopy 09/02/2023 10:36:44 Moderate Abnormal None Seen Final Performing Location LABORATORY C - [address] [place] [address]
--- OUTSIDE RECORDS SUMMARY | 2023-11-13 21:33 | External Medical Summary ---
Author Name Unknown Address Unknown Organization K01:LABORATORY [facility] [place] - [address] [place] [address] Laboratory Report Ordering Provider Test Date Status JANI CHUNG 09/02/2023 10:36:44 Final Deficient: <20 ng/mL
Ins ufficient: 20-29 ng/mL
Recommended/Optimum:30-50 ng/mL

Vitamin D intoxication is rare. If suspicious of Vitamin D toxicity, evaluation of serum Calcium and PTH is recommended. Observation Date Value Abnormality Reference (Units ) Status 25-OH Vitamin D total 09/02/2023 10:36:44 52 >19 (ng/mL) Final Performing Location LABORATORY [facility] [place] - [address] [place] [address]
--- OUTSIDE RECORDS SUMMARY | 2023-11-13 21:33 | External Medical Summary | Summary of Care ---
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)*; 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]; 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); Proliferative diabetic retinopathy of left eye without macular edema associated with type 2 diabetes mellitus (HCC) [E11.3592] Allergies No known active allergiesdocumented as of this encounter (statuses as of 09/02/2023) Medications Medication Sig Dispensed Refills Start Date End Date Status MULTIPLE VITAMIN PO TABS 1 TABLET DAILY 0 1 Active OMEGA-3 FISH OIL 1000 MG PO CAPS Take one capsule by mouth daily 0 1 Active Blood Glucose Monitoring Suppl (Yapp ULTRA SYSTEM) W/DEVICE KITIndications:DM type 2, goal A1c below 7 Use as directed 4 times a day. Use up to four times a day as directed. Diagnosis = E11.9 1 Kit 0 5 Active dorzolamide-timolo l (COSOPT OCUMETER PLUS) 2.23-0.68% [...] hemoglobin A1c goal of less than 7.0% ([facility]) Use once a day with basaglar. DX [...] AND DINNER 180 Tablet 3 3 Active Insulin Glargine Solostar 100 UNIT/ML Subcutaneous Solution Pen-injector (Basaglar KwikPen)Indication s:Type 2 diabetes mellitus with diabetic neuropathy, with long-term current use of insulin ([facility]) Inject 48 Units under the skin in the morning. 45 mL 3 3 Active Acetic Acid 0.25 % Irrigation Solution Apply to legs as directed by the wound clinic. 1000 mL 2 3 Active Advanced Life Wellness InstituteTouch Verio In Vitro Strip (Glucose Blood) Use to test blood sugars twice a day. Dx. E11.9 300 Strip 1 3 Active OneTouch Delica Lancets 30GIndications:Typ e 2 [...] 3 Active Allopurinol 100 MG Oral Tablet (Zyloprim)Indicati [...] with long-term current use of insulin ([facility]) Take 1 Tablet by mouth 2 times a day with morning and evening meals. 180 Tablet 3 3 Active Sodium Bicarbonate 650 MG Oral Tablet Take 2 Tablets by mouth in the morning and 2 Tablets at noon and 2 Tablets in the evening and 2 Tablets before bedtime. 60 Tablet 5 3 Active Losartan Potassium 50 MG Oral Tablet (Cozaar) Take 0.5 Tablets by mouth in the morning. 0 3 Active Epoetin Gautam-epbx 42332 UNIT/ML Injection Solution (Retacrit) Inject 2 mL [...] in the morning. 90 Tablet 5 3 Active Chlorthalidone 25 MG Oral Tablet (Hygroton) Take 1 Tablet by mouth in the morning. 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 Noted on CT scan at [facility] 05/2019 Mild nonproliferative diabet ic retinopathy of [...] Diabetes Taxonomy. 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 of inactive term oysterman current use of anticoagulant therapy 0 03/16/2005 Overview: 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 of inactive term SPENCER (obstructive sleep apnea) 06/11/2001 Overview: CPAP 11 cwp? AHP Gout of wrist documented as of this encounter (statuses as of 09/02/2023) Resolved Problems Problem Noted Date Diagnosed Date [...] as of this encounter (statuses as of 09/02/2023) Immunizations Name Administration Dates Next Due COVID-19 mRNA, LNP-s, No Pre serve, 2-Dose Series (Pfizer) 06/20/2021,10/22/2020,09/26/2020 COVID-19, LNP-s, No Preserve , Jamie-sucrose, Ages 12+ (Pfizer) 03/13/2022 Covid-19, Mrna, Lnp-s, Pf, B ivalent, 30 Mcg, IM, 12 yrs and above (Pfizer) 09/20/2022 Pneumococcal Conjugate Vacci ne, 20-valent ([id number]) 03/14/2022 Pneumococcal Polysaccharide PPV23 (Pneumovax) 03/19/2006 Seasonal [...] as of this encounter Progress Notes * Mika Diaz DO - 09/02/2023 1:00 PM EST [facility] [place] HPI: Ronnie Wu is a 68 year old male who presents for evaluation of DR Base Eye Exam Visual Acuity (Snellen - Linear) Right Left Dist cc 20/30 -2 20/30 -1 Tonometry (Tonopen, 1:00 PM) Right Left Pressure 19 13 Pupils Light Shape React APD Right 4 Round Brisk None Left 4 Round Brisk None Visual Montes (Counting fingers) Right Left Full Full Extraocular Movement Right Left Full, Ortho Full, Ortho Neuro/Psych Oriented x3: Yes Mood/Affect: Normal Dilation Both eyes: 0.5% Proparacaine, 2.5% Phenylephrine, 1.0% Mydriacyl @ 1:00 PM EXTERNAL: The ocular adnexae are unremarkable. SLE: Lids/Lashes: wnl OU Conjunctiva/Sclera: quiet OU Cornea: clear OU Anterior Chamber: deep and quiet OU Iris: normal OU; no NVI OU Lens: PCIOL OU GONIOSCOPY: 09/02/2023 compared to 06/13/2023: compared to 03/28/2023 [...] OU -on drops -followed in [facility] Dr. Liu -nasal goniotomy OU by Florinda 2016 pt has appoint w/ Dr. Liu 02/02 but may hold off if stable F/u 4-6 weeks dilate and OCT OU Mika Diaz DO 08 CC: Lori Fregoso, OD CC: Dr. Liu _ documented in this encounter Nursing Notes * Ludwig Lockett COA - 09/02/2023 12:55 PM EST Ronnie Wu is a 68 year old year old male who presents for 6 week Dilation with OCT and Photos. Last Office Visit: 07/17/2023 (in office), Visit date not found (telemedicine) [...] (H) 06/03/2019 10:[address]? Yes but hasn't been driving lately Fundus Photos and OCT image(s) of both eyes acquired and filed/scanned into chart. documented in this encounter Plan of Treatment Upcoming Encounters Date Type Department Care Team (Late st Contact Info) Description 09/03/2023 1:00 PM EST Immunization/Injection Hematology/Oncolog y Treatment, [place] [address] [place] [address] Nurse, Med [address] [facility] [place] [address] 09/04/2023 11:10 AM EST Office Visit Family Medicine [address] [place] [phone] Nancy Ryan [address] [place] [address] 09/05/2023 5:10 PM EST 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 Pharmacy, [address] [place] [address] [place] [address] 09/19/2023 1:00 PM EST Office Visit Nephrology [address] [place] [address] Alejandrina Sims MD [address] [place] [address] 09/20/2023 8:50 AM EST Office Visit Family Medicine [address] [place] [phone] Ryan, Nancy M[address] [place] [address] 10/01/2023 9:00 AM EST Office Visit Cardiology [address] [place] [address] Prabhakar Henning PA-C [address] [place] [address] 10/15/2023 1:45 PM EST Office Visit Hematology/Oncolog y [facility] [address] [place] [address] Fly Velazquez MD [address] [facility] [place] [address] 10/23/2023 10:00 AM EDT Office Visit Sleep Disorders Ctr [facility] [address] [place] [phone] Dorothy Toscano CRNP [address] [place] [address] 10/24/2023 2:00 PM EDT Office Visit Ophthalmology, [facility] [address] [place] [address] Mika Diaz DO [address] [place] [address] 12/25/2023 2:00 PM EDT Office Visit Nephrology, [facility] [address] [facility] [place] [address] ZemaBeckie umanzor PA-C [address] [place] [address] Scheduled Orders Name Type Priority Associated Diagnoses Orde r Schedule RETINA SCAN DIAGNOSTIC IMAGE, POSTERIOR Procedures Routine 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) Ordered: 09/02/2023 Scheduled Procedures Name Priority Associated Diagnoses Date/Ti [...] Additional history exists CKD PHOS USE SMARTSET 94289 09/18/2023 02/0 02/2023, 08/29/2021, 08/02/2020, Additional history exists Diabetic Eye Exam 10/09/2023 10/09/2022, , 06/12/2022, Additional history exists HbA1c 01/14/2024 07/15/2023, 08/0 03/2023, 09/18/2022, Additional history exists Albumin/Creatinine Ratio 02/20/2024 023, 03/14/2022, 05/19/2021, Additional history exists GFR 02/21/2024 08/23/2023, 07/12, 07/15/2023, Additional history exists CKD HGB USE SMARTSET 86463 08/23/202408/23, 07/29/2023, 07/29/2023, Additional history exists COLONOSCOPY-EVERY [...] this encounter Medical Devices Implanted Type Area Employment Training Specialist Device Identifier Shelf Expiration Date Model / Serial / Lot Envista Hydrophobic Acrylic Intraocular Lens Implanted:Qty: 1 on 12/25/2016 by Raul Neely MD at [facility] Right: Eye [employer] 11/09/2018 [id number] / [id number] / [id number] Envista Mx60 +10.0 D Implanted:Qty: 1 on 01/29/2017 by Raul Neely MD at OR [facility] Left: Eye 11/09/2018 [id number] / [id number] / [id number] documented as of this encounter Visit Diagnoses Diagnosis 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 Care Teams Clean Room Operator Relationship Specialty Start Date End Date Nancy Ryan DO [address] [place] [address] [place] [phone] PCP - General Internal Medicine 09/11/18 documented as of this encounter
--- OUTSIDE RECORDS SUMMARY | 2023-11-13 21:33 | External Medical Summary | Summary of Care ---
Author Name Unknown Organization [facility] Address [address] [place] [address] Phone [phone] Care Team Providers Care Residential Energy Auditor Name Role Phone Nancy Ryan DO Primary Care Provider [phone] Reason for Visit * Reason Comments Outpatient Testing Encounter Details Date Type Department Care Team (Late st Contact Info) Description 09/02/2023 10:40 AM EST Laboratory Laboratory [address] [place] [phone] [address] [place] [address] History of DVT (deep vein thrombosis); 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 management encounter; custodial current use of anticoagulant therapy; Anemia due to stage 3a chronic kidney disease (HCC); Hypertension; Chronic gout due to renal impairment, multiple sites, without tophus (tophi); Iron deficiency anemia due to chronic blood loss; Vitamin D deficiency; HTN, goal below 130/80 Allergies No known active allergiesdocumented as of this encounter (statuses as of 09/02/2023) Medications Medication Sig Dispensed Refills Start Date End Date Status MULTIPLE VITAMIN PO TABS 1 TABLET DAILY 0 07/03/2011 Active OMEGA-3 FISH OIL 1000 MG PO CAPS Take one capsule by mouth daily 0 07/03/2011 Active Blood Glucose Monitoring Suppl (ONETOObjectWay ULTRA SYSTEM) W/DEVICE KITIndications:DM type 2, goal [...] of DVT (deep vein thrombosis),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 management encounter,exterminator helper current use of anticoagulant therapy Take [...] insulin ([facility]) Inject 48 Units under the [...] the morning. 0 06/04/2023 Active Epoetin Gautam-epbx 69474 UNIT/ML Injection Solution (Retacrit) Inject 2 mL [...] Overview: Non-obstructive. Noted on CT scan at [facility] 05/2019 Mild nonproliferative diabet ic [...] Diabetes Taxonomy. 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 of inactive term exterminator helper current use of anticoagulant therapy [...] (Pfizer) 09/20/2022 Pneumococcal Conjugate Vacci ne, 20-valent ([id number]) 03/14/2022 Pneumococcal Polysaccharide PPV23 (Pneumovax) 03/19/2006 Seasonal [...] 09/02/2023 1:00 PM EST Office Visit Ophthalmology, [facility] [address] [place] [address] Mika Diaz, [address] [place] [address] 09/03/2023 1:00 PM EST Immunization/Injection Hematology/Oncolog y Treatment, [place] [address] [facility] [place] [address] Nurse, Med [address] [facility] [place] [address] 09/04/2023 11:10 AM EST Office Visit Family Medicine [address] [place] [phone] Nancy [address] [place] [address] 09/05/2023 5:10 PM EST 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 Pharmacy, [address] [place] [address] [place] [address] 09/19/2023 1:00 PM EST Office Visit Nephrology [address] [place] [address] Alejandrina Sims MD [address] [facility] [place] [address] 09/20/2023 8:50 AM EST Office Visit Family Medicine [address] [place] [phone] Nancy Ryan [address] [place] [address] 10/01/2023 9:00 AM EST Office Visit Cardiology [address] [place] [address] Prabhakar Henning PA-C [address] [place] [address] 10/15/2023 1:45 PM EST Office Visit Hematology/Oncolog y [facility] [place] [address] [place] [address] Fly Velazquez MD [address] [facility] [place] [address] 10/23/2023 10:00 AM EDT Office Visit Sleep Disorders Ctr [facility] [address] [facility] [place] [phone] Dorothy Toscano CRNP [address] [facility] [place] [address] 12/25/2023 2:00 PM EDT Office Visit Nephrology, [facility] [address] [place] [address] Beckie Dunbar PA-C [address] [facility] [place] [address] Pending Results Name Type Priority Associated Diagnoses Date /Time CBC WITH WBC DIFFERENTIAL Lab STAT Anemia due to stage 3a chronic kidney disease (HCC) 09/02/2023 10:36 AM EST BASIC METABOLIC PANEL Lab Routine Hypertension 09/02/2023 10:36 AM EST IRON SCREEN, INCLUDING TIBC Lab Routine Chronic gout due to renal impairment, multiple sites, without tophus (tophi) Anemia due to stage 3a chronic kidney disease (HCC) Iron deficiency anemia due to chronic blood loss 09/02/2023 10:36 AM EST HEPATIC FUNCTION PANEL Lab Routine Chronic gout due to renal impairment, multiple sites, without tophus (tophi) Anemia due to stage 3a chronic kidney disease (HCC) Iron deficiency anemia due to chronic blood loss 09/02/2023 10:36 AM EST URIC ACID Lab Routine Chronic gout due to renal impairment, multiple sites, without tophus (tophi) Anemia due to stage 3a chronic kidney disease (HCC) Iron deficiency anemia due to chronic blood loss 09/02/2023 10:36 AM EST PTH Lab Routine Chronic gout due to renal impairment, multiple sites, without tophus (tophi) Anemia due to stage 3a chronic kidney disease (HCC) Iron deficiency anemia due to chronic blood loss 09/02/2023 10:36 AM EST 25-HYDROXY VITAMIN D Lab Routine Vitamin D deficiency 09/02/2023 10:36 AM EST CBC Lab STAT Anemia due to stage 3a chronic kidney disease (HCC) 09/02/2023 10:36 AM EST DIFFERENTIAL, AUTOMATED Lab STAT Anemia due to stage 3a chronic kidney disease (HCC) 09/02/2023 10:36 AM EST Scheduled Procedures Name Priority Associated [...] Additional history exists CKD PHOS USE SMARTSET 32601 09/18/2023/0 02/2023, 08/29/2021, 08/02/2020, Additional history exists Diabetic Eye Exam 10/09/2023 10/09/2022, , 06/12/2022, Additional history exists HbA1c 01/14/2024 07/15/2023, 0803/2023, 09/18/2022, Additional history exists Albumin/Creatinine Ratio 02/20/2024 023, 03/14/2022, 05/19/2021, Additional history exists GFR 02/21/2024 08/23/2023, 07/12, 07/15/2023, Additional history exists CKD HGB USE SMARTSET 31276 08/23/202408/23, 07/29/2023, 07/29/2023, Additional history exists COLONOSCOPY-EVERY [...] this encounter Medical Devices Implanted Type Area Title Officer Device Identifier Shelf Expiration Date Model / Serial / Lot Envista Hydrophobic Acrylic Intraocular Lens Implanted:Qty: 1 on 12/25/2016 by Raul Neely MD at OR [facility] Right: Eye [employer] 11/09/2018 [id number] / [id number] / [id number] Envista Mx60 +10.0 D Implanted:Qty: 1 on 01/29/2017 by Raul Neely MD at OR [facility] Left: Eye 11/09/2018 [id number] / [id number] / [id number] documented as of this encounter Visit Diagnoses Diagnosis History of DVT (deep vein thrombosis) Personal history of venous thrombosis and embolism 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 management encounter Encounter for therapeutic drug monitoring 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 Care Teams Residential Energy Auditor Relationship Specialty Start Date End Date Nancy Ryan DO [address] [place] [address] [place] [address] PCP - General Internal Medicine 09/11/18 documented as of this encounter
--- OUTSIDE RECORDS SUMMARY | 2023-11-13 21:33 | External Medical Summary ---
Author Name Unknown Address Unknown Organization [id number][place] [facility] [place] [address] [place] [address] Laboratory Report Ordering Provider Test Date Status JULIETGUNTER 09/02/2023 10:36:44 Final Observation Date Value Abnormality Reference (Units ) Status Iron 09/02/2023 10:36:44 39 Below low normal 45-176 (ug/dL) Final Iron-binding capacity 09/02/2023 10:36:44 266 250-425 (ug/dL) Final Transferrin Sat % 09/02/2023 10:36:44 15 15-55 (%) Final Performing Location [facility] [facility] [place] [address] [place] [address]
--- OUTSIDE RECORDS SUMMARY | 2023-11-13 21:33 | External Medical Summary ---
Author Name Unknown Address Unknown Organization [id number] [facility] [place] [facility] [address] [facility] [address] Laboratory Report Ordering Provider Test Date Status JANI CHUNG 09/02/2023 10:36:44 Final Observation Date Value Abnormality Reference (Units ) Status BUN 09/02/2023 10:36:44 26 Above high normal 6-20 (mg/dL) Final Creatinine 09/02/2023 10:36:44 1.5 Above high normal 0.6-1.2 (mg/dL) Final Glomerular filtration rate/1.73 sq M.predicted [Volume Rate/Area] in Serum, Plasma or Blood by Creatinine-based formula (CKD-EPI) 09/02/2023 10:36:44 51 Below low normal >=60 (mL/min) Final eGFR is calculated based on the CKD-EPI 2020 equation SODIUM 09/02/2023 10:36:44 141 135-146 (m mol/L) Final Potassium 09/02/2023 10:36:44 5.1 3.5-5.1 (m mol/L) Final Cl 09/02/2023 10:36:44 107 98-107 (mm ol/L) Final CO2 09/02/2023 10:36:44 22 22-32 (mmo l/L) Final Anion gap 09/02/2023 10:36:44 12 7-15 (mmol /L) Final Glucose 09/02/2023 10:36:44 155 Above high normal 70 -120 (mg/dL) Final Calcium 09/02/2023 10:36:44 8.8 8.4-10.2 ( mg/dL) Final Performing Location [facility] [place] [facility] [place] [address]
--- OUTSIDE RECORDS SUMMARY | 2023-11-13 21:33 | External Medical Summary ---
Author Name Unknown Address Unknown Organization [id number]:[facility] [place] [facility] [address] [facility] [address] Laboratory Report Ordering Provider Test Date Status JANE WOODRUFF 09/02/2023 10:36:44 Final Observation Date Value Abnormality Reference (Units ) Status WBC, Total 09/02/2023 10:36:44 5.15 4.00-10.80 (K/uL) Final RBC 09/02/2023 10:36:44 2.71 4.50-5.25 (M/uL) Final Hemoglobin 09/02/2023 10:36:44 8.2 Below low normal 14.0-16.8 (g/dL) Final HCT 09/02/2023 10:36:44 26.8 Below low normal 40.0-48.4 (%) Final MCV 09/02/2023 10:36:44 98.9 82.0-99.5 (fL) Final MCH 09/02/2023 10:36:44 30.3 27.0-34.0 (pg) Final MCHC 09/02/2023 10:36:44 30.6 32.0-36.0 (g/dL) Final RDW 09/02/2023 10:36:44 19.8 11.5-15.5 (%) Final Platelets 09/02/2023 10:36:44 229 140-400 (K/uL) Final MPV 09/02/2023 10:36:44 9.4 6.6-11.1 (fL) Final Nucleated erythrocytes/100 leukocytes [Ratio] in Blood by Automated count 09/02/2023 10:36:44 0 <=0 (/100 WBCs) Final Performing Location [facility] [place] [address] [facility] [address]
--- OUTSIDE RECORDS SUMMARY | 2023-11-13 21:33 | External Medical Summary ---
Author Name Unknown Address Unknown Organization [id number][place] [facility] [place] [address] [facility] [address] Laboratory Report Ordering Provider Test Date Status JANE WOODRUFF 09/02/2023 10:36:44 Final Observation Date Value Abnormality Reference (Units ) Status SYNC LEUKOCYTES IN BLOOD BY AUTOMATED COUNT 09/02/2023 10:36:44 5.15 4.00-10.80 (K/uL) Final Segs 09/02/2023 10:36:44 54.7 40.0-75.0 (%) Final Lymphs % 09/02/2023 10:36:44 32.2 18.0-42.0 (%) Final Monos 09/02/2023 10:36:44 8.2 1.0-11.0 (%) Final Eosinophils 09/02/2023 10:36:44 3.9 0.0-6.0 (%) Final Basos 09/02/2023 10:36:44 0.8 0.0-2.0 (%) Final Immature Granulocyte, Percent 09/02/2023 10:36:44 0.2 0.0-2.0 (%) Final Absolute Segs 09/02/2023 10:36:44 2.82 1.80-7.70 (K/uL) Final Lymphs, absolute 09/02/2023 10:36:44 1.66 1.00-4.80 (K/ul) Final Monos, Abs 09/02/2023 10:36:44 0.42 0.00-1.10 (K/uL) Final Eos, Abs 09/02/2023 10:36:44 0.20 0.00-0.70 (K/uL) Final Basos, Abs 09/02/2023 10:36:44 0.04 0.00-0.20 (K/uL) Final Immature Granulocytes, Number 09/02/2023 10:36:44 0.01 0.00-0.20 (K/uL) Final Performing Location [facility] [place] [address] [facility] [address]
--- OUTSIDE RECORDS SUMMARY | 2023-11-13 21:34 | External Medical Summary | Summary of Care ---
Author Name Unknown Organization [facility] Address [address] [place] [address] Phone [phone] Care Team Providers Care Sap Bi Architect Name Role Phone Lacy Ryanraheem Muro Primary Care Provider [phone] Reason for Visit * Reason Onset Date Comments Home Monitoring Alarm 08/28/2023 Encounter Details Date Type Department Care Team (Late st Contact Info) Description 08/28/2023 Home Monitoring Care Coordination [address] [place] [address] Diane Hernandez LPN HTN, goal below 130/80* Allergies No known active allergiesdocumented as of this encounter (statuses as of 08/30/2023) Medications Medication Sig Dispensed Refills Start Date End Date Status MULTIPLE VITAMIN PO TABS 1 TABLET DAILY 0 07/03/2011 Active OMEGA-3 FISH OIL 1000 MG PO CAPS Take one capsule by mouth daily 0 07/03/2011 Active Blood Glucose Monitoring Suppl ([employer] ULTRA SYSTEM) W/DEVICE KITIndications:DM type 2, goal A1c below 7 Use as directed 4 times a day. Use up to four times a day as directed. 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 0 06/04/2023 Active Epoetin Gautam-epbx 12247 UNIT/ML Injection Solution (Retacrit) Inject 2 mL [...] Taxonomy. 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 current use of anticoagulant therapy 0 03/16/2005 [...] mRNA, LNP-s, No Pre serve, 2-Dose Series (ivWatch) 06/20/2021,10/22/2020,09/26/2020 COVID-19, LNP-s, No Preserve , Jamie-sucrose, Ages 12+ (ivWatch) 03/13/2022 Covid-19, Mrna, Lnp-s, Pf, B ivalent, 30 Mcg, IM, 12 yrs and above (ivWatch) 09/20/2022 Pneumococcal Conjugate Vacci ne, 20-valent ([id number]) 03/14/2022 Pneumococcal Polysaccharide PPV23 (Pneumovax) 03/19/2006 Seasonal [...] this encounter Progress Notes * Jena Haas, formerly [facility] - 08/30/2023 8:21 AM EST During [...] medication adjustments made during last hospitalization at [facility]. Updated BMP recently obtained. Dr Johansen - [facility] f/u scheduled with you for 09/19. What are your thoughts on restarting Chlorthalidone now that BMP is obtained? Jena Haas RPh, PharmD Clinical Pharmacist - Men'S Basketball Coach Medication Therapy Disease Management Clinic 08/28/2023, 2:01 PM [phone] * Diane Hernandez LPN - 08/28/2023 12:44 PM EST Ronnie Wu [phone] Ronnie Wu is currently participating in the [...] 09/02/2023 1:00 PM EST Office Visit Ophthalmology, [facility] [address] [facility] [place] [address] Mika Diaz DO [address] [place] [address] 09/04/2023 11:10 AM EST Office Visit Family Medicine [address] [place] [phone] Nancy Ryan [address] [place] [address] 09/05/2023 5:10 PM EST 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 Pharmacy, [address] [place] [address] [place] [address] 09/19/2023 1:00 PM EST Office Visit Nephrology [address] [place] [address] Alejandrina Sims MD [address] [place] [address] 09/20/2023 8:50 AM EST Office Visit Family Medicine [address] [place] [phone] [address] [place] [address] 10/01/2023 9:00 AM EST Office Visit Cardiology [address] [place] [address] Prabhakar Henning PAJoseC [address] [place] [address] 10/15/2023 1:45 PM EST Office Visit Hematology/Oncology [employer] [address] [place] [address] Fly Velazquez MD [address] [place] [address] 10/23/2023 10:00 AM EDT [facility] [address] [place] [phone] Dorothy Toscano CRNP [address] [place] [address] 12/25/2023 2:00 PM EDT Office Visit Nephrology, [facility] [address] [place] [address] Beckie Dunbar PA-C [address] [place] [address] Scheduled Procedures Name Priority Associated Diagnoses Date/Ti [...] Additional history exists CKD PHOS USE SMARTSET 56671 09/18/2023 02/0 02/2023, 08/29/2021, 08/02/2020, Additional history exists Diabetic Eye Exam 10/09/2023 10/09/2022, , 06/12/2022, Additional history exists HbA1c 01/14/2024 07/15/2023, 08/0 03/2023, 09/18/2022, Additional history exists Albumin/Creatinine Ratio 02/20/2024 023, 03/14/2022, 05/19/2021, Additional history exists GFR 02/21/2024 08/23/2023, 07/12, 07/15/2023, Additional history exists CKD HGB USE SMARTSET 95988 08/23/202408/23, 07/29/2023, 07/29/2023, Additional history exists COLONOSCOPY-EVERY [...] this encounter Medical Devices Implanted Type Area Brake Repair Mechanic Device Identifier Shelf Expiration Date Model / Serial / Lot Envista Hydrophobic Acrylic Intraocular Lens Implanted:Qty: 1 on 12/25/2016 by Raul Neely MD at OR [facility] Right: Eye [employer] 11/09/2018 [id number] / [id number] / [id number] Envista Mx60 +10.0 D Implanted:Qty: 1 on 01/29/2017 by Raul Neely MD at OR [facility] Left: Eye 11/09/2018 [id number] / [id number] / [id number] documented as of this encounter Visit Diagnoses [...] and were consensually agreed upon. Care Teams Sap Bi Architect Relationship Specialty Start Date End Date Nancy Ryan DO [address] [place] [address] [place] [address] PCP - General Internal Medicine 09/11/18 documented as of this encounter
--- OUTSIDE RECORDS SUMMARY | 2023-11-13 21:34 | External Medical Summary | Summary of Care ---
Author Name Unknown Organization [facility] Address [address] [place] [address] Phone [phone] Care Team Providers Care Hvac Installation Technician Name Role Phone Ryan Nancy Muro Primary Care Provider Reason for Visit * Reason Onset Date Comments Outpatient Testing 08/20/2023 Encounter Details Date Type Department Care Team (Late st Contact Info) Description 08/20/2023 Telephone Pharmacy, [address] [place] [address] [facility] [address] [place] [address] Outpatient Testing Allergies No known active allergiesdocumented as of this encounter (statuses as of 08/22/2023) Medications Medication Sig Dispensed Refills Start Date End Date Status MULTIPLE VITAMIN PO TABS 1 TABLET DAILY 0 07/03/2011 Active OMEGA-3 FISH OIL 1000 MG PO CAPS Take one capsule by mouth daily 0 07/03/2011 Active Blood Glucose Monitoring Suppl (pickrset ULTRA SYSTEM) W/DEVICE KITIndications:DM type 2, goal [...] with long-term current use of insulin ([facility]),Type 2 diabetes mellitus with hemoglobin A1c goal of less than 7.0% ([facility]) Use once a day with basaglar. DX e11.9 100 Each 3 10/17/2021 Active Rhopressa 0.02 % Ophthalmic Solution Instill 1 Drop into the left eye at bedtime. 0 05/17/2022 Active Vitamin C 1000 MG Oral Tablet Take 1 Tablet by mouth in the morning. 0 Active Warfarin Sodium 5 MG Oral Tablet (Coumadin)Indicati ons:History of DVT (deep vein thrombosis),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 management encounter,jail current use of anticoagulant therapy Take 5 [...] with long-term current use of insulin ([facility]) Inject 48 Units under the skin in [...] with long-term current use of insulin ([facility]) Use TWICE a day to test [...] the morning. 0 06/04/2023 Active Epoetin Gautam-epbx 47301 UNIT/ML Injection Solution (Retacrit) Inject 2 mL [...] as of this encounter (statuses as of 08/22/2023) Active Problems Problem Noted Date Diagnosed Date [...] Overview: Non-obstructive. Noted on CT scan at [facility] 05/2019 Mild nonproliferative diabet ic [...] Diabetes Taxonomy. 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 AHP Gout of wrist documented as of this encounter (statuses as of 08/22/2023) Resolved Problems Problem Noted Date Diagnosed Date [...] as of this encounter (statuses as of 08/22/2023) Immunizations Name Administration Dates Next Due COVID-19 mRNA, LNP-s, No Pre serve, 2-Dose Series ([employer]) 06/20/2021,10/22/2020,09/26/2020 COVID-19, LNP-s, No Preserve , Jamie-sucrose, Ages 12+ ([employer]) 03/13/2022 Covid-19, Mrna, Lnp-s, Pf, B ivalent, 30 Mcg, IM, 12 yrs and above (Pfizer) 09/20/2022 Pneumococcal Conjugate Vacci ne, 20-valent ([id number]) 03/14/2022 Pneumococcal Polysaccharide PPV23 (Pneumovax) 03/19/2006 Seasonal [...] Addendum Note - Carmela Trimble RN - 08/22/2023 3:15 PM ESTAddended by: CARMELA TRIMBLE on: 08/22/2023 03:15 PM Modules accepted: Orders * Telephone Encounter - Carmela Trimble RN - 08/22/2023 3:13 PM EST TE with pt regarding recent hospital stay. He reports that he had an infected leg and stomach flu with vomiting and diarrhea. Was admitted to [facility].Requesting labs to be drawn at home. Orders faxed to [facility]. * Telephone Encounter - Carmela Trimble RN - 08/22/2023 3:06 PM EST Spoke with Ebony at [facility]. Lab orders placed and will be obtained by [facility]. Requests faxed to [facility]. * Telephone Encounter - Alejandrina Sims MD - 08/22/2023 12:36 PM EST Needs repeat BMP RADHA Needs hospital d/c appt w/ me MV w/in 2 -3 wks (copying schedulers) VERIFY/ensure adherence to daily torsemide dosing Likely to need to resume chlorthalidone but need labs first; pls also check uric acid Renal nurse pls place orders/update pt MTM FYI * Telephone Encounter - Jena Haas [facility] - 08/20/2023 1:48 PM EST Patient recently discharged from [facility]. Previous HTN regimen as below: Hypertension Medications: Torsemide 20mg daily Losartan 50mg 1/2 tablet daily Carvedilol 6.25mg BID Chlorthalidone 25mg daily Amlodipine 2.5mg daily Per discharge summary, several changes to HTN medication regimen. Amlodipine stopped d/t edema concerns. Losartan decreased to 12.5mg daily. Carvedilol continued at 6.25mg BID. Chlorthalidone held, Torsemide continued at previous dose. Only x2 BP readings available since discharge. Both elevated as below: 08/20/23 09:56 08/21/23 09:57 Systolic BP 143 mm/Hg (H) [1] 154 mm/Hg (H) [1] Diastolic BP 66 mm/Hg [1] 75 mm/Hg [1] (H): Data is abnormally high [1] CH:VITAL_READING_TYPE=SPOT CH:PERIPHERAL_BRAND=IHE[facility] Dr Eleno HAQUE, please advise on recommended next steps/possible hospital f/u. Thank you! Jena Haas [facility], PharmD Clinical Pharmacist - Worship Leader Medication Therapy Disease Management Clinic 08/21/2023, 4:41 PM [phone] documented in this encounter Plan of Treatment Upcoming Encounters Date Type Department Care Team (Late st Contact Info) Description 08/27/2023 5:10 PM EST 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 Pharmacy, [address] [place] [address] [place] [address] 09/02/2023 1:00 PM EST Office Visit Ophthalmology, [facility] 132 [facility] [place] [address] Mika Diaz DO [address] [place] [address] 09/04/2023 11:10 AM EST Office Visit Family Medicine [address] [place] [phone] Nancy Ryan [address] [place] [address] 09/20/2023 8:50 AM EST Office Visit Family Medicine [address] [place] [phone] Nancy Ryan[address] [place] [address] 10/01/2023 9:00 AM EST Office Visit Cardiology [address] [place] [address] Prabhakar Henning PA-C [address] [place] [address] 10/15/2023 1:45 PM EST Office Visit Hematology/Oncology [facility] J[place] [address] [facility] [place] [address] Fly Velazquez MD [address] [facility] [place] [address] 10/23/2023 10:00 AM EDT Office Visit Sleep [facility] [place] [phone] Dorothy Toscano CRNP [address] [place] [address] 12/25/2023 2:00 PM EDT Office Visit Nephrology, [facility] [address] [facility] [place] [address] Beckie Dunbar PA-C [address] [facility] [place] [address] Scheduled Orders Name Type Priority Associated Diagnoses Orde r Schedule BASIC METABOLIC PANEL Lab Routine Chronic gout due to renal impairment, multiple sites, without tophus (tophi) Anemia due to stage 3a chronic kidney disease Iron deficiency anemia due to chronic blood loss Expected: 08/23/2023 (Approximate), Expires: 08/22/2024 CBC Lab Routine Chronic gout due to renal impairment, multiple sites, without tophus (tophi) Anemia due to stage 3a chronic kidney disease Iron deficiency anemia due to chronic blood loss Expected: 08/23/2023 (Approximate), Expires: 08/22/2024 IRON SCREEN, INCLUDING TIBC Lab Routine Chronic gout due to renal impairment, multiple sites, without tophus (tophi) Anemia due to stage 3a chronic kidney disease Iron deficiency anemia due to chronic blood loss Expected: 08/23/2023 (Approximate), Expires: 08/22/2024 HEPATIC FUNCTION PANEL Lab Routine Chronic gout due to renal impairment, multiple sites, without tophus (tophi) Anemia due to stage 3a chronic kidney disease Iron deficiency anemia due to chronic blood loss Expected: 08/23/2023 (Approximate), Expires: 08/22/2024 URIC ACID Lab Routine Chronic gout due to renal impairment, multiple sites, without tophus (tophi) Anemia due to stage 3a chronic kidney disease Iron deficiency anemia due to chronic blood loss Expected: 08/23/2023 (Approximate), Expires: 08/22/2024 PTH Lab Routine Chronic gout due to renal impairment, multiple sites, without tophus (tophi) Anemia due to stage 3a chronic kidney disease Iron deficiency anemia due to chronic blood loss Expected: 08/23/2023 (Approximate), Expires: 08/22/2024 25-HYDROXY VITAMIN D Lab Routine Vitamin D deficiency Expected: 08/23/2023 (Approximate), Expires: 08/22/2024 Scheduled Procedures Name Priority Associated Diagnoses Date/Ti [...] Additional history exists CKD PHOS USE SMARTSET 89704 09/18/2023 02/0 02/2023, 08/29/2021, 08/02/2020, Additional history exists Diabetic Eye Exam 10/09/2023 10/09/2022, , 06/12/2022, Additional history exists HbA1c 01/14/2024 07/15/2023, 08/0 03/2023, 09/18/2022, Additional history exists GFR 01/28/2024 07/29/2023, 12/0 11/2022, 06/17/2023, Additional history exists Albumin/Creatinine Ratio 02/20/2024 023, 03/14/2022, 05/19/2021, Additional history exists CKD HGB USE SMARTSET 36890 07/29/202407/29, 07/29/2023, 07/15/2023, Additional history exists COLONOSCOPY-EVERY 5 YRS AGES [...] this encounter Medical Devices Implanted Type Area Rope Maker Device Identifier Shelf Expiration Date Model / Serial / Lot Envista Hydrophobic Acrylic Intraocular Lens Implanted:Qty: 1 on 12/25/2016 by Raul Neely MD at OR [facility] Right: Eye [employer] 11/09/2018 [id number] / [id number] / [id number] Envista Mx60 +10.0 D Implanted:Qty: 1 on 01/29/2017 by Raul Neely MD at OR [facility] Left: Eye 11/09/2018 [id number] / [id number] / [id number] documented as of this encounter Visit Diagnoses Diagnosis Chronic gout due to renal impairment, multiple sites, without tophus (tophi)- Primary Anemia due to stage 3a chronic kidney disease Iron deficiency anemia due to chronic blood [...] and were consensually agreed upon. Care Teams Hvac Installation Technician Relationship Specialty Start Date End Date Nancy Ryan DO [address] [place] [address] [place] [address] PCP - General Internal Medicine 09/11/18 documented as of this encounter
--- OUTSIDE RECORDS SUMMARY | 2023-11-13 21:34 | External Medical Summary | Summary of Care ---
Author Name Unknown Organization [facility] Address [address] [place] [address] Phone [phone] Care Team Providers Care Valet Manager Name Role Phone Nancy Ryan DO Primary Care Provider [phone] Reason for Visit * Reason Comments Dosage Adjustment Via Phone (anticoag Cl inic) Encounter Details Date Type Department Care Team (Latest Contact Info) Description 08/27/2023 5:10 PM EST 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 Pharmacy, [address] [place] [address] [place] [address] History of DVT (deep vein thrombosis)* Allergies No known active allergiesdocumented as of this encounter (statuses as of 08/27/2023) Medications Medication Sig Dispensed Refills Start Date End Date Status MULTIPLE VITAMIN PO TABS 1 TABLET DAILY 0 07/03/2011 Active OMEGA-3 FISH OIL 1000 MG PO CAPS Take one capsule by mouth daily 0 07/03/2011 Active Blood Glucose Monitoring Suppl ([employer] ULTRA SYSTEM) W/DEVICE KITIndications:DM type 2, goal [...] of DVT (deep vein thrombosis),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 0 06/04/2023 Active Epoetin Gautam-epbx 19126 UNIT/ML Injection Solution (Retacrit) Inject 2 mL [...] as of this encounter (statuses as of 08/27/2023) Active Problems Problem Noted Date Diagnosed Date [...] Overview: Non-obstructive. Noted on CT scan at [facility] 05/2019 Mild nonproliferative diabet ic [...] Diabetes Taxonomy. 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 of inactive term retirement current use of anticoagulant therapy 0 03/16/2005 Overview: 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 of inactive term SPENCER (obstructive sleep apnea) 06/11/2001 Overview: CPAP 11 cwp? AHP Gout of wrist documented as of this encounter (statuses as of 08/27/2023) Resolved Problems Problem Noted Date Diagnosed Date [...] as of this encounter (statuses as of 08/27/2023) Immunizations Name Administration Dates Next Due COVID-19 mRNA, LNP-s, No Pre serve, 2-Dose Series ([employer]) 06/20/2021,10/22/2020,09/26/2020 COVID-19, LNP-s, No Preserve , Jamie-sucrose, Ages 12+ ([employer]) 03/13/2022 Covid-19, Mrna, Lnp-s, Pf, B ivalent, 30 Mcg, IM, 12 yrs and above (Pfizer) 09/20/2022 Pneumococcal Conjugate Vacci ne, 20-valent ([id number]) 03/14/2022 Pneumococcal Polysaccharide PPV23 (Pneumovax) 03/19/2006 Seasonal [...] Progress Notes * Jena Haas, [facility] - 08/27/2023 4:37 PM EST Patient Phone Numbers Called and spoke with patient. Denies any further coffee ground emesis/dark stools since stopping anticoagulation. No current GI follow up scheduled at this time. Hospital follow up scheduled with PCP on 09/04. Call placed to continue to follow up on status. Jena Haas RPh, PharmD Clinical Pharmacist - Automotive Tire Tester Medication Therapy Disease Management Clinic 08/27/2023, 4:48 PM [phone] documented in this encounter Plan of Treatment Upcoming Encounters Date Type Department Care Team (Late st Contact Info) Description 09/02/2023 1:00 PM EST Office Visit Ophthalmology, [facility] 132 [facility] [place] [address] Mika Diaz [facility] [address] [place] [address] 09/04/2023 11:10 AM EST Office Visit Family Medicine [address] [phone] [address] [place] [address] 09/05/2023 5:10 PM EST 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 Pharmacy, [address] [place] [address] [place] [address] 09/19/2023 1:00 PM EST Office Visit Nephrology [address] [place] [address] Alejandrina Sims MD [address] [facility] [place] [address] 09/20/2023 8:50 AM EST Office Visit Family Medicine [address] [place] [address] [place] [address] 10/01/2023 9:00 AM EST Office Visit Cardiology [place] [address] [place] [address] Prabhakar Henning PAJoseC [address] [place] [address] 10/15/2023 1:45 PM EST Office Visit Hematology/Oncology [facility] [place]ord[place] [address] [facility] [place] [address] Fly Velazquez MD [address] [facility] [place] [address] 10/23/2023 10:00 AM EDT Office Visit Sleep Disorders Ctr [facility] [place] [address] [place] [phone] Dorothy Toscano CRNP [address] [place] [address] 12/25/2023 2:00 PM EDT Office Visit Nephrology, [facility] [address] [facility] [place] [address] Zemaitis, Beckie Tucker PAJoseC [address] [facility] [place] [address] Scheduled Procedures Name Priority Associated Diagnoses Date/Ti [...] Additional history exists CKD PHOS USE SMARTSET 41842 09/18/2023 020 02/2023, 08/29/2021, 08/02/2020, Additional history exists Diabetic Eye Exam 10/09/2023 10/09/2022, , 06/12/2022, Additional history exists HbA1c 01/14/2024 07/15/2023, 080 03/2023, 09/18/2022, Additional history exists Albumin/Creatinine Ratio 02/20/2024 023, 03/14/2022, 05/19/2021, Additional history exists GFR 02/21/2024 08/23/2023, 07/12, 07/15/2023, Additional history exists CKD HGB USE SMARTSET 47766 08/23/202408/23, 07/29/2023, 07/29/2023, Additional history exists COLONOSCOPY-EVERY [...] this encounter Medical Devices Implanted Type Area Oral And Maxillofacial Pathologist Device Identifier Shelf Expiration Date Model / Serial / Lot Envista Hydrophobic Acrylic Intraocular Lens Implanted:Qty: 1 on 12/25/2016 by Raul Neely MD at OR [facility] Right: Eye [employer] 11/09/2018 [id number] / [id number] / [id number] Envista Mx60 +10.0 D Implanted:Qty: 1 on 01/29/2017 by Raul Neely MD at OR [facility] Left: Eye 11/09/2018 [id number] / [id number] / [id number] documented as of this encounter Visit Diagnoses [...] and were consensually agreed upon. Care Teams Valet Manager Relationship Specialty Start Date End Date Nancy Ryan DO [address] [place] [address] [place] [address] PCP - General Internal Medicine 09/11/18 documented as of this encounter
--- OUTSIDE RECORDS SUMMARY | 2023-11-13 21:34 | External Medical Summary | Summary of Care ---
Author Name Unknown Organization [facility] Address [address] [place] [address] Phone [phone] Care Team Providers Care Environmental Advisor Name Role Phone Lacy Ryanraheem Muro Primary Care Provider [phone] Reason for Visit * Reason Onset Date Comments Home Monitoring Alarm 08/28/2023 Encounter Details Date Type Department Care Team (Late st Contact Info) Description 08/28/2023 Home Monitoring Care Coordination [address] [place] [address] Diane Hernandez LPN HTN, goal below 130/80* Allergies No known active allergiesdocumented as of this encounter (statuses as of 08/28/2023) Medications Medication Sig Dispensed Refills Start Date End Date Status MULTIPLE VITAMIN PO TABS 1 TABLET DAILY 0 07/03/2011 Active OMEGA-3 FISH OIL 1000 MG PO CAPS Take one capsule by mouth daily 0 07/03/2011 Active Blood Glucose Monitoring Suppl ([employer] ULTRA SYSTEM) W/DEVICE KITIndications:DM type 2, goal A1c below 7 Use as directed 4 times a day. Use up to four times a day as directed. 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 0 06/04/2023 Active Epoetin Gautam-epbx 51206 UNIT/ML Injection Solution (Retacrit) Inject 2 mL [...] as of this encounter (statuses as of 08/28/2023) Active Problems Problem Noted Date Diagnosed Date [...] Overview: Non-obstructive. Noted on CT scan at [facility] 05/2019 Mild nonproliferative diabet ic [...] Diabetes Taxonomy. 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 of inactive term watermaster current use of anticoagulant therapy 0 03/16/2005 Overview: 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 of inactive term SPENCER (obstructive sleep apnea) 06/11/2001 Overview: CPAP 11 cwp? AHP Gout of wrist documented as of this encounter (statuses as of 08/28/2023) Resolved Problems Problem Noted Date Diagnosed Date [...] as of this encounter (statuses as of 08/28/2023) Immunizations Name Administration Dates Next Due COVID-19 mRNA, LNP-s, No Pre serve, 2-Dose Series (Wallop) 06/20/2021,10/22/2020,09/26/2020 COVID-19, LNP-s, No Preserve , Jamie-sucrose, Ages 12+ (Wallop) 03/13/2022 Covid-19, Mrna, Lnp-s, Pf, B ivalent, 30 Mcg, IM, 12 yrs and above (Wallop) 09/20/2022 Pneumococcal Conjugate Vacci ne, 20-valent ([id number]) 03/14/2022 Pneumococcal Polysaccharide PPV23 (Pneumovax) 03/19/2006 Seasonal [...] this encounter Progress Notes * Jena Haas, [facility] - 08/28/2023 1:58 PM EST Systolic Diastolic Pulse Systolic Diastolic 158 77 Average 148 79 153 81 146 82 High 90 90 151 90 Low 71 71 145 71 137 74 Range 19 19 Count 6 6 08/22/23 10:55 01/12/24 10:57 08/25/23 11:27 08/26/23 10:13 08/27/23 08:29 [...] medication adjustments made during last hospitalization at [facility]. Updated BMP recently obtained. Dr Johansen [facility] f/u scheduled with you for 09/19. What are your thoughts on restarting Chlorthalidone now that BMP is obtained? Jena Haas [facility], PharmD Clinical Pharmacist - Hse Coordinator Medication Therapy [facility] 08/28/2023, 2:01 PM [phone] * Diane Hernandez LPN - 08/28/2023 12:44 PM EST Ronnie Wu [phone] Ronnie Wu is currently participating in the [...] 09/02/2023 1:00 PM EST Office Visit Ophthalmology, [facility] [address] [place] [address] Mika Diaz DO [address] [place] [address] 09/04/2023 11:10 AM EST Office Visit Family Medicine [address] [place] [phone] Nancy Ryan[address] [place] [address] 09/05/2023 5:10 PM EST 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 Pharmacy, [address] [place] [address] [place] [address] 09/19/2023 1:00 PM EST Office Visit Nephrology [address] [place] [address] Alejandrina Sims MD [facility] [place] [address] 09/20/2023 8:50 AM EST Office Visit Family Medicine [address] [place] [phone] Nancy Ryan [address] [place] [address] 10/01/2023 9:00 AM EST Office Visit Cardiology [address] [place] [address] Prabhakar Henning PA-C [address] [place] [address] 10/15/2023 1:45 PM EST Office Visit Hematology/Oncology [facility] [place] [address] Fly Velazquez MD [facility] [place] [address] 10/23/2023 10:00 AM EDT Office Visit Sleep Disorders Ctr [facility] [address] [place] [phone] Dorothy Toscano CRNP [address] [place] [address] 12/25/2023 2:00 PM EDT Office Visit Nephrology, [facility] [address] [facility] [place] [address] Zemaitis, Beckie Tucker PA-C [address] [facility] [place] [address] Scheduled Procedures Name Priority Associated Diagnoses Date/Ti [...] Additional history exists CKD PHOS USE SMARTSET 37127 09/18/2023 02/0 02/2023, 08/29/2021, 08/02/2020, Additional history exists Diabetic Eye Exam 10/09/2023 10/09/2022, , 06/12/2022, Additional history exists HbA1c 01/14/2024 07/15/2023, 08/0 03/2023, 09/18/2022, Additional history exists Albumin/Creatinine Ratio 02/20/2024 023, 03/14/2022, 05/19/2021, Additional history exists GFR 02/21/2024 08/23/2023, 07/12, 07/15/2023, Additional history exists CKD HGB USE SMARTSET 34159 08/23/202408/23, 07/29/2023, 07/29/2023, Additional history exists COLONOSCOPY-EVERY [...] this encounter Medical Devices Implanted Type Area Machine Rigger Device Identifier Shelf Expiration Date Model / Serial / Lot Envista Hydrophobic Acrylic Intraocular Lens Implanted:Qty: 1 on 12/25/2016 by Raul Neely MD at OR [facility] Right: Eye [employer]OM[employer] 11/09/2018 [id number] / [id number] / [id number] Envista Mx60 +10.0 D Implanted:Qty: 1 on 01/29/2017 by Raul Neely MD at OR [facility] Left: Eye 11/09/2018 [id number] / [id number] / [id number] documented as of this encounter Visit Diagnoses [...] and were consensually agreed upon. Care Teams Environmental Advisor Relationship Specialty Start Date End Date Nancy Ryan DO [address] [place] [address] [place] [address] PCP - General Internal Medicine 09/11/18 documented as of this encounter
--- OUTSIDE RECORDS SUMMARY | 2023-11-13 21:34 | External Medical Summary | Summary of Care ---
Author Name Unknown Organization [facility] Address [address] [place] [address] Phone [phone] Care Team Providers Care Reading Aide Name Role Phone Nancy Ryan DO Primary Care Provider Encounter Details Date Type Department Care Team (Late st Contact Info) Description 08/20/2023 Telephone Pharmacy, [address] [place] [address] [place] [address] Allergies No known active allergiesdocumented as of this encounter (statuses as of 08/22/2023) Medications Medication Sig Dispensed Refills Start Date End Date Status MULTIPLE VITAMIN PO TABS 1 TABLET DAILY 0 07/03/2011 Active OMEGA-3 FISH OIL 1000 MG PO CAPS Take one capsule by mouth daily 0 07/03/2011 Active Blood Glucose Monitoring Suppl ([employer] ULTRA SYSTEM) W/DEVICE KITIndications:DM type 2, goal [...] of insulin (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) Use TWICE a day to [...] the morning. 0 06/04/2023 Active Epoetin Gautam-epbx 98607 UNIT/ML Injection Solution (Retacrit) Inject 2 mL [...] Diabetes Taxonomy. 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 of inactive term longterm current use of anticoagulant therapy 0 03/16/2005 [...] mRNA, LNP-s, No Pre serve, 2-Dose Series ([employer] 06/20/2021,10/22/2020,09/26/2020 COVID-19, LNP-s, No Preserve , Jamie-sucrose, Ages 12+ ([employer] 03/13/2022 Covid-19, Mrna, Lnp-s, Pf, B ivalent, 30 Mcg, IM, 12 yrs and above (Pfizer) 09/20/2022 Pneumococcal Conjugate Vacci ne, 20-valent ([id number]) 03/14/2022 Pneumococcal Polysaccharide PPV23 (Pneumovax) 03/19/2006 Seasonal [...] encounter Miscellaneous Notes * Telephone Encounter - Alejandrina Sims MD - 08/22/2023 12:36 PM EST Needs repeat BMP RADHA Needs hospital d/c appt w/ me MV w/in 2 -3 wks (copying schedulers) VERIFY/ensure adherence to daily torsemide dosing Likely to need to resume chlorthalidone but need labs first; pls also check uric acid Renal nurse pls place orders/update pt HETAL HAQUE * Telephone Encounter - Jena Haas RPh - 08/20/2023 1:48 PM EST Patient recently discharged from [facility]. Previous HTN regimen as below: Hypertension [...] is abnormally high [1] CH:VITAL_READING_TYPE=SPOT CH:PERIPHERAL_BRAND=[facility]HE[facility] Dr Johansen - SHABNAM, please advise on recommended next steps/possible hospital f/u. Thank you! Jena Haas [facility], PharmD Clinical Pharmacist - [place] Medication Therapy Disease Management [facility] 08/21/2023, 4:41 PM [phone] documented in this encounter Plan of Treatment Upcoming Encounters Date Type Department Care Team (Late st Contact Info) Description 08/27/2023 5:10 PM EST 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 Pharmacy, [address] [place] [address] [place] [address] 09/02/2023 1:00 PM EST Office Visit [facility], [facility] [place] [address] Mika Diaz, DO [address] [place] [address] 09/04/2023 11:10 AM EST Office Visit Family Medicine [address] [phone] Nancy Ryan[address] [place] [address] 09/20/2023 8:50 AM EST Office Visit Family Medicine [address] [place] [phone] [address] [place] [address] 10/01/2023 9:00 AM EST Office Visit Cardiology [address] [place] [address] Prabhakar Henning PA-C [address] [place] [address] 10/15/2023 1:45 PM EST Office Visit Hematology/Oncology [place] [address] [place] [address] Fly Velazquez MD [address] [place] [address] 10/23/2023 10:00 AM EDT Office Visit [facility] Disorders Ctr [facility] [place] [phone] Dorothy Toscano CRNP [address] [place] [address] 12/25/2023 2:00 PM EDT Office Visit Nephrology, [place] [facility] [place] [address] Zemaerna, Beckie Tucker PA-C 200 [facility] [place] [address] Scheduled Procedures Name Priority Associated Diagnoses Date/Ti [...] Additional history exists CKD PHOS USE SMARTSET 27010 09/18/202302/2023, 08/29/2021, 08/02/2020, Additional history exists Diabetic Eye Exam 10/09/2023 10/09/2022, , 06/12/2022, Additional history exists HbA1c 01/14/2024 07/15/2023, 08/0 03/2023, 09/18/2022, Additional history exists GFR 01/28/2024 07/29/2023, 1211/2022, 06/17/2023, Additional history exists Albumin/Creatinine Ratio 02/20/2024 023, 03/14/2022, 05/19/2021, Additional history exists CKD HGB USE SMARTSET 90954 07/29/202407/29, 07/29/2023, 07/15/2023, Additional history exists COLONOSCOPY-EVERY [...] this encounter Medical Devices Implanted Type Area Seo Intern Device Identifier Shelf Expiration Date Model / Serial / Lot Envista Hydrophobic Acrylic Intraocular Lens Implanted:Qty: 1 on 12/25/2016 by Raul Neely MD at OR [facility] Right: Eye [employer] 11/09/2018 [id number] / [id number] / [id number] Envista Mx60 +10.0 D Implanted:Qty: 1 on 01/29/2017 by Raul Neely MD at OR [facility] Left: Eye 11/09/2018 [id number] / [id number] / [id number] documented as of this encounter Advance Directives [...] and were consensually agreed upon. Care Teams Reading Aide Relationship Specialty Start Date End Date Nancy Ryan DO [address] [place] [address] [place] [phone] PCP - General Internal Medicine 09/11/18 documented as of this encounter
--- OUTSIDE RECORDS SUMMARY | 2023-11-13 21:34 | External Medical Summary | Summary of Care ---
Author Name Unknown Organization [facility] Address [address] [place] [address] Phone [phone] Care Team Providers Care Edger Machine Helper Name Role Phone Lacy Ryanraheem Muro Primary Care Provider [phone] Reason for Visit * Reason Onset Date Comments Home Monitoring Alarm 08/28/2023 Encounter Details Date Type Department Care Team (Late st Contact Info) Description 08/28/2023 Home Monitoring Care Coordination [address] [place] [address] Diane Hernandez LPN HTN, goal below 130/80* Allergies No known active allergiesdocumented as of this encounter (statuses as of 08/28/2023) Medications Medication Sig Dispensed Refills Start Date End Date Status MULTIPLE VITAMIN PO TABS 1 TABLET DAILY 0 07/03/2011 Active OMEGA-3 FISH OIL 1000 MG PO CAPS Take one capsule by mouth daily 0 07/03/2011 Active Blood Glucose Monitoring Suppl ([employer] ULTRA SYSTEM) W/DEVICE KITIndications:DM type 2, goal A1c below 7 Use as directed 4 times a day. Use up to four times a day as directed. Diagnosis = E11.9 1 Kit 0 06/29/2015 Active dorzolamide-timolo l (COSOPT OCUMETER PLUS) 2.23-0.68% ophthalmic solution INSTILL 1 DROP INTO BOTH EYES BY OPHTHALMIC ROUTE ONCE IN THE [facility] AND THE SECOND DROP AROUND [...] current use of insulin ([facility]) Inject 48 Units under the skin in [...] current use of insulin ([facility]) Inject 2 mg under the skin once [...] current use of insulin ([facility]) Take 1 Tablet by mouth 2 times [...] the morning. 0 06/04/2023 Active Epoetin Gautam-epbx 64777 UNIT/ML Injection Solution (Retacrit) Inject 2 mL [...] on CT scan at [facility] 05/2019 Mild nonproliferative diabet ic retinopathy of [...] mRNA, LNP-s, No Pre serve, 2-Dose Series ([employer]) 06/20/2021,10/22/2020,09/26/2020 COVID-19, LNP-s, No Preserve , Jamie-sucrose, Ages 12+ ([employer]) 03/13/2022 Covid-19, Mrna, Lnp-s, Pf, B ivalent, 30 Mcg, IM, 12 yrs and above ([employer]) 09/20/2022 Pneumococcal Conjugate Vacci ne, 20-valent ([id number]) 03/14/2022 Pneumococcal Polysaccharide PPV23 (Pneumovax) 03/19/2006 Seasonal [...] Progress Notes * Diane Hernandez LPN - 08/28/2023 12:44 PM EST Ronnie Wu [phone] Ronnie Wu is currently participating in the [...] 09/02/2023 1:00 PM EST Office Visit Ophthalmology, [facility] [address] [place] [address] Mika Diaz DO [address] [place] [address] 09/04/2023 11:10 AM EST Office Visit Family Medicine [address] [place] [phone] [place] [address] 09/05/2023 5:10 PM EST 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 Pharmacy, [address] [place] [address] [place] [address] 09/19/2023 1:00 PM EST Office Visit Nephrology [address] [place] [address] Alejandrina Sims MD [address] [facility] [place] [address] 09/20/2023 8:50 AM EST Office Visit Family Medicine [address] [place] [phone] [address] [place] [address] 10/01/2023 9:00 AM EST Office Visit Cardiology [address] [place] [address] Prabhakar Henning PAJoseC [address] [place] [address] 10/15/2023 1:45 PM EST Office Visit [facility] [place] [address] [facility] [place] [address] Fly Velazquez MD 200 [facility] [place] [address] 10/23/2023 10:00 AM EDT Office Visit Sleep Disorders Ctr [facility] [place] [address] [place] [phone] Dorothy Toscano CRNP [address] [place] [address] 12/25/2023 2:00 PM EDT Office Visit Nephrology, [facility] 200 [facility] [place] [address] ZemaitisBeckie PA-C 200 [facility] [place] [address] Scheduled Procedures Name Priority Associated Diagnoses Date/Ti [...] Additional history exists CKD PHOS USE SMARTSET 61512 09/18/2023 02/0 02/2023, 08/29/2021, 08/02/2020, Additional history exists Diabetic Eye Exam 10/09/2023 10/09/2022, , 06/12/2022, Additional history exists HbA1c 01/14/2024 07/15/2023, 080 03/2023, 09/18/2022, Additional history exists Albumin/Creatinine Ratio 02/20/2024 023, 03/14/2022, 05/19/2021, Additional history exists GFR 02/21/2024 08/23/2023, 07/12, 07/15/2023, Additional history exists CKD HGB USE SMARTSET 54378 08/23/202408/23, 07/29/2023, 07/29/2023, Additional history exists COLONOSCOPY-EVERY [...] this encounter Medical Devices Implanted Type Area Process Chemist Device Identifier Shelf Expiration Date Model / Serial / Lot Envista Hydrophobic Acrylic Intraocular Lens Implanted:Qty: 1 on 12/25/2016 by Raul Neely MD at OR [facility] Right: Eye [employer] 11/09/2018 [id number] / [id number] / [id number] Envista Mx60 +10.0 D Implanted:Qty: 1 on 01/29/2017 by Raul Neely MD at OR [facility] Left: Eye 11/09/2018 [id number] / [id number] / [id number] documented as of this encounter Visit Diagnoses [...] and were consensually agreed upon. Care Teams Edger Machine Helper Relationship Specialty Start Date End Date Nancy Ryan DO [address] [place] [address] [place] [address] PCP - General Internal Medicine 09/11/18 documented as of this encounter
--- OUTSIDE RECORDS SUMMARY | 2023-11-13 21:34 | External Medical Summary | Summary of Care ---
Author Name Unknown Organization [facility] Address [address] [place] [address] Phone [phone] Care Team Providers Care Jewel Corner Brushing Machine Operator Name Role Phone Nancy Ryan Muro Primary Care Provider Encounter Details Date Type Department Care Team (Late st Contact Info) Description 08/27/2023 Orders Only PATIENT PORTAL DO NOT DELETE THIS DEPT USED BY [place] [id number] Allergies No known active allergiesdocumented as of this encounter (statuses as of 08/27/2023) Medications Medication Sig Dispensed Refills Start Date End Date Status MULTIPLE VITAMIN PO TABS 1 TABLET DAILY 0 07/03/2011 Active OMEGA-3 FISH OIL 1000 MG PO CAPS Take one capsule by mouth daily 0 07/03/2011 Active Blood Glucose Monitoring Suppl ([employer] ULTRA SYSTEM) W/DEVICE KITIndications:DM type 2, goal [...] of DVT (deep vein thrombosis),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 management encounter,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 0 06/04/2023 Active Epoetin Gautam-epbx 40557 UNIT/ML Injection Solution (Retacrit) Inject 2 mL [...] Overview: Non-obstructive. Noted on CT scan at [facility] 05/2019 Mild nonproliferative diabet ic [...] mRNA, LNP-s, No Pre serve, 2-Dose Series ([employer]) 06/20/2021,10/22/2020,09/26/2020 COVID-19, LNP-s, No Preserve , Jamie-sucrose, Ages 12+ (Pfizer) 03/13/2022 Covid-19, Mrna, Lnp-s, Pf, B ivalent, 30 Mcg, IM, 12 yrs and above ([employer]) 09/20/2022 Pneumococcal Conjugate Vacci ne, 20-valent ([id number]) 03/14/2022 Pneumococcal Polysaccharide PPV23 (Pneumovax) 03/19/2006 Seasonal [...] Description 08/27/2023 5:10 PM EST 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 Pharmacy, [address] [place] [address] [place] [address] 09/02/2023 1:00 PM EST Office Visit Ophthalmology, [facility] [address] [place] [address] Mika Diaz DO [address] [place] [address] 09/04/2023 11:10 AM EST Office Visit Family Medicine [address] [phone] Nancy Ryan[address] [place] [address] 09/19/2023 1:00 PM EST Office Visit Nephrology [address] [place] [address] Alejandrina Sims MD [address] [place] [address] 09/20/2023 8:50 AM EST Office Visit Family Medicine [address] [phone] [address] [place] [address] 10/01/2023 9:00 AM EST Office Visit Cardiology [address] [place] [address] Prabhakar Henning PA-C [address] [place] [address] 10/15/2023 1:45 PM EST Office Visit Hematology/Oncology [facility] [place] [address] [place] [address] Fly Velazquez MD [address] [place] [address] 10/23/2023 10:00 AM EDT Office Visit Sleep Disorders Ctr [facility] [address] [place] [phone] Dorothy Toscano, JALEEL [address] [place] [address] 12/25/2023 2:00 PM EDT Office Visit Nephrology, [place] 200 [facility] [place] [address] Zemaitis, Beckie Tucker PA-C 200 [facility] [place] [address] Scheduled Procedures Name Priority Associated Diagnoses Date/Ti [...] Additional history exists CKD PHOS USE SMARTSET 00504 09/18/202302/2023, 08/29/2021, 08/02/2020, Additional history exists Diabetic Eye Exam 10/09/2023 10/09/2022, , 06/12/2022, Additional history exists HbA1c 01/14/2024 07/15/2023, 0803/2023, 09/18/2022, Additional history exists Albumin/Creatinine Ratio 02/20/2024 023, 03/14/2022, 05/19/2021, Additional history exists GFR 02/21/2024 08/23/2023, 07/12, 07/15/2023, Additional history exists CKD HGB USE SMARTSET 98286 08/23/202408/23, 07/29/2023, 07/29/2023, Additional history exists COLONOSCOPY-EVERY 5 YRS AGES 18-100 02/09/2027 02/09/2022, 09/11/2018, 12/07/2008 Lipid Panel 02/11/2028 02/10/2023, 08/10/2021, 05/19/2021, Additional history exists DTaP,Tdap,and Td Vaccines [...] this encounter Medical Devices Implanted Type Area Speech Pathology Supervisor Device Identifier Shelf Expiration Date Model / Serial / Lot Envista Hydrophobic Acrylic Intraocular Lens Implanted:Qty: 1 on 12/25/2016 by Raul Neely MD at OR [facility] Right: Eye [employer] 11/09/2018 [id number] / [id number] / [id number] Envista Mx60 +10.0 D Implanted:Qty: 1 on 01/29/2017 by Raul Neely MD at OR [facility] Left: Eye 11/09/2018 [id number] / [id number] documented as of this encounter Advance Directives [...] and were consensually agreed upon. Care Teams Jewel Corner Brushing Machine Operator Relationship Specialty Start Date End Date Nancy Ryan DO [address] [place] [address] [place] [phone] PCP - General Internal Medicine 09/11/18 documented as of this encounter
--- OUTSIDE RECORDS SUMMARY | 2023-11-13 21:34 | External Medical Summary | Summary of Care ---
Author Name Unknown Organization [facility] Address [address] [place] [address] Phone [phone] Care Team Providers Care Maintenance Mechanic Name Role Phone Lacy Ryanraheem Muro Primary Care Provider Reason for Visit * Reason Onset Date Comments Home Monitoring Alarm 08/28/2023 Encounter Details Date Type Department Care Team (Late st Contact Info) Description 08/28/2023 Home Monitoring Care Coordination [address] [place] [address] Diane Hernandez LPN HTN, goal below 130/80* Allergies No known active allergiesdocumented as of this encounter (statuses as of 08/30/2023) Medications Medication Sig Dispensed Refills Start Date End Date Status MULTIPLE VITAMIN PO TABS 1 TABLET DAILY 0 07/03/2011 Active OMEGA-3 FISH OIL 1000 MG PO CAPS Take one capsule by mouth daily 0 07/03/2011 Active Blood Glucose Monitoring Suppl (Fifty100 ULTRA SYSTEM) W/DEVICE KITIndications:DM type 2, goal A1c below 7 Use as directed 4 times a day. Use up to four times a day as directed. 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 0 06/04/2023 Active Epoetin Gautam-epbx 70699 UNIT/ML Injection Solution (Retacrit) Inject 2 mL [...] Overview: Non-obstructive. Noted on CT scan at [facility] 05/2019 Mild nonproliferative diabet ic [...] Diabetes Taxonomy. 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 use of anticoagulant therapy 0 03/16/2005 [...] mRNA, LNP-s, No Pre serve, 2-Dose Series (Kout) 06/20/2021,10/22/2020,09/26/2020 COVID-19, LNP-s, No Preserve , Jamie-sucrose, Ages 12+ (Kout) 03/13/2022 Covid-19, Mrna, Lnp-s, Pf, B ivalent, 30 Mcg, IM, 12 yrs and above (Kout) 09/20/2022 Pneumococcal Conjugate Vacci ne, 20-valent ([id number]) 03/14/2022 Pneumococcal Polysaccharide PPV23 (Pneumovax) 03/19/2006 Seasonal [...] Progress Notes * Alejandrina Sims MD - 08/30/2023 7:11 AM EST Med list states he's already on chlorthalidone; pls ensure med list accurate so we can discuss * Jena Haas [facility] - 08/28/2023 1:58 PM EST Systolic Diastolic [...] medication adjustments made during last hospitalization at [facility]. Updated BMP recently obtained. Dr Johansen - [facility] f/u scheduled with you for 09/19. What are your thoughts on restarting Chlorthalidone now that BMP is obtained? Jena Haas [facility], PharmD Clinical Pharmacist - Lithographic Retoucher Apprentice Medication Therapy [facility] 08/28/2023, 2:01 PM [phone] * Diane Hernandez LPN - 08/28/2023 12:44 PM EST Ronnie Wu [phone] Ronnie Wu is currently participating in the [...] 09/02/2023 1:00 PM EST Office Visit Ophthalmology, [facility] [address] [place] [address] Mika Diaz [address] [address] 09/04/2023 11:10 AM EST Office Visit [address] Medicine [address] [phone] [address] [place] [address] 09/05/2023 5:10 PM EST 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 Pharmacy, [address] [place] [address] [place] [address] 09/19/2023 1:00 PM EST Office Visit Nephrology [address] [place] [address] Alejandrina Sims MD [address] [place], [place] [address] [address] 09/20/2023 8:50 AM EST Office Visit Family Medicine [address] [place] [phone] Ryan Nancy Muro[address] [place] [address] 10/01/2023 9:00 AM EST Office Visit Cardiology [address] [place] [address] Prabhakar Henning PAJoseC [address] [place] [address] 10/15/2023 1:45 PM EST Office Visit Hematology/Oncology [facility] [address] [facility] [place] [address] Fly Velazquez MD [address] [facility] [place] [address] 10/23/2023 10:00 AM EDT Office Visit Sleep Disorders Ctr [facility] [address] [place] [phone] Dorothy Toscano CRNP [address] [place] [address] 12/25/2023 2:00 PM EDT Office Visit Nephrology, [facility] [address] [facility] [place] [address] ZemaBeckie umanzor PA-C [address] [facility] [place] [address] Scheduled Procedures Name Priority Associated Diagnoses Date/Ti [...] Additional history exists CKD PHOS USE SMARTSET 98327 09/18/2023 020 02/2023, 08/29/2021, 08/02/2020, Additional history exists Diabetic Eye Exam 10/09/2023 10/09/2022, , 06/12/2022, Additional history exists HbA1c 01/14/2024 07/15/2023, 080 03/2023, 09/18/2022, Additional history exists Albumin/Creatinine Ratio 02/20/2024 023, 03/14/2022, 05/19/2021, Additional history exists GFR 02/21/2024 08/23/2023, 07/12, 07/15/2023, Additional history exists CKD HGB USE SMARTSET 44452 08/23/202408/23, 07/29/2023, 07/29/2023, Additional history exists COLONOSCOPY-EVERY [...] this encounter Medical Devices Implanted Type 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 History Device Identifier Shelf Expiration Date Model / Serial / Lot Envista Hydrophobic Acrylic Intraocular Lens Implanted:Qty: 1 on 12/25/2016 by Raul Neely MD at OR [facility] Right: Eye [employer] 11/09/2018 [id number] / [id number] / [id number] Envista Mx60 +10.0 D Implanted:Qty: 1 on 01/29/2017 by Raul Neely MD at OR [facility] Left: Eye 11/09/2018 [id number] / [id number] documented as of this encounter Visit Diagnoses [...] and were consensually agreed upon. Care Teams Maintenance Mechanic Relationship Specialty Start Date End Date Nancy Ryan DO [address] [place] [address] [place] [address] PCP - General Internal Medicine 09/11/18 documented as of this encounter
--- OUTSIDE RECORDS SUMMARY | 2023-11-13 21:34 | External Medical Summary | Summary of Care ---
Author Name Unknown Organization [facility] Address [address] [place] [address] Phone [phone] Care Team Providers Care Switch Tender Name Role Phone Lacy Ryanraheem Muro Primary Care Provider Reason for Visit * Reason Onset Date Comments Home Monitoring Alarm 08/28/2023 Encounter Details Date Type Department Care Team (Late st Contact Info) Description 08/28/2023 Home Monitoring Care Coordination [address] [place] [address] Diane Hernandez LPN HTN, goal below 130/80* Allergies No known active allergiesdocumented as of this encounter (statuses as of 08/30/2023) Medications Medication Sig Dispensed Refills Start Date End Date Status MULTIPLE VITAMIN PO TABS 1 TABLET DAILY 0 07/03/2011 Active OMEGA-3 FISH OIL 1000 MG PO CAPS Take one capsule by mouth daily 0 07/03/2011 Active Blood Glucose Monitoring Suppl ([employer] ULTRA SYSTEM) W/DEVICE KITIndications:DM type 2, goal A1c below 7 Use as directed 4 times a day. Use up to four times a day as directed. 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 0 06/04/2023 Active Epoetin Gautam-epbx 55881 UNIT/ML Injection Solution (Retacrit) Inject 2 mL [...] Taxonomy. 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.] so we can discuss * Jena Haas [facility] - 08/28/2023 1:58 PM EST Systolic [...] medication adjustments made during last hospitalization at [facility]. Updated BMP recently obtained. Dr Johansen - [facility] f/u scheduled with you for 09/19. What are your thoughts on restarting Chlorthalidone now that BMP is obtained? Jena Haas RPh, PharmD Clinical Pharmacist - Motors And Generators Inspector Medication Therapy Disease Management Clinic 08/28/2023, 2:01 PM [phone] * Diane Hernandez LPN - 08/28/2023 12:44 PM EST Ronnie Wu [phone] Ronnie Wu is currently participating in the [employer] Hypertension Management Program and had areading on 08/28/23. Pt has alerted for an Average BP [...] 09/02/2023 1:00 PM EST Office Visit Ophthalmology, [facility] [address] [place] [address] Mika Diaz DO [address] [place] [address] 09/04/2023 11:10 AM EST Office Visit Family [address] [place] [phone] Ryan, Nancy Muro[address] [place] [address] 09/05/2023 5:10 PM EST 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 Pharmacy, [address] [place] [address] [place] [address] 09/19/2023 1:00 PM EST Office Visit Nephrology [address] [place] [address] Alejandrina Sims MD [address] [place] [address] 09/20/2023 8:50 AM EST Office Visit Family Medicine [address] [place] [phone] Nancy [address] [place] [address] 10/01/2023 9:00 AM EST Office Visit Cardiology [address] [place] [address] Prabhakar Henning PA-C [address] [place] [address] 10/15/2023 1:45 PM EST Office Visit Hematology/Oncology [facility] [place] [address] [place] [address] Fly Velazquez MD 200 [facility] [place] [address] 10/23/2023 10:00 AM EDT [facility] [place] [address] [place] [phone] Dorothy Toscano CRNP [address] [place] [address] 12/25/2023 2:00 PM EDT Office Visit Nephrology, [place] [address] [place] [address] ZeBeckie cruz PA-C [address] [place] [address] Scheduled Procedures Name Priority Associated Diagnoses Date/Ti [...] Additional history exists CKD PHOS USE SMARTSET 07211 09/18/2023 02/0 02/2023, 08/29/2021, 08/02/2020, Additional history exists Diabetic Eye Exam 10/09/2023 10/09/2022, , 06/12/2022, Additional history exists HbA1c 01/14/2024 07/15/2023, 08/0 03/2023, 09/18/2022, Additional history exists Albumin/Creatinine Ratio 02/20/20242 023, 03/14/2022, 05/19/2021, Additional history exists GFR 02/21/2024 08/23/2023, 07/12, 07/15/2023, Additional history exists CKD HGB USE SMARTSET 41811 08/23/202408/23, 07/29/2023, 07/29/2023, Additional history exists COLONOSCOPY-EVERY [...] this encounter Medical Devices Implanted Type Area Information Delivery Analyst Device Identifier Shelf Expiration Date Model / Serial / Lot Envista Hydrophobic Acrylic Intraocular Lens Implanted:Qty: 1 on 12/25/2016 by Raul Neely MD at OR [facility] Right: Eye [employer]OM[employer] 11/09/2018 [id number] / [id number] / [id number] Envista Mx60 +10.0 D Implanted:Qty: 1 on 01/29/2017 by Raul Neely MD at OR [facility] Left: Eye 11/09/2018 [id number] / [id number] / [id number] documented as of this encounter Visit Diagnoses [...] and were consensually agreed upon. Care Teams Switch Tender Relationship Specialty Start Date End Date Nancy Ryan DO [address] [place] [address] [place] [address] PCP - General Internal Medicine 09/11/18 documented as of this encounter
--- OUTSIDE RECORDS SUMMARY | 2023-11-13 21:35 | External Medical Summary | Summary of Care ---
Author Name Unknown Organization [facility] Address [address] [place] [address] Phone [phone] Care Team Providers Care Scholastic Aptitude Test Grader Name Role Phone Nancy Ryan DO Primary Care Provider Encounter Details Date Type Department Care Team (Late st Contact Info) Description 08/20/2023 Telephone Pharmacy, [address] [place] [address] [facility] [address] [place] [address] Allergies No known active allergiesdocumented as of this encounter (statuses as of 08/21/2023) Medications Medication Sig Dispensed Refills Start Date End Date Status MULTIPLE VITAMIN PO TABS 1 TABLET DAILY 0 07/03/2011 Active OMEGA-3 FISH OIL 1000 MG PO CAPS Take one capsule by mouth daily 0 07/03/2011 Active Blood Glucose Monitoring Suppl (Xochitl ([employer] ULTRA SYSTEM) W/DEVICE KITIndications:DM type 2, goal [...] of DVT (deep vein thrombosis),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 management encounter,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 0 06/04/2023 Active Epoetin Gautam-epbx 91763 UNIT/ML Injection Solution (Retacrit) Inject 2 mL [...] as of this encounter (statuses as of 08/21/2023) Active Problems Problem Noted Date Diagnosed Date [...] Diabetes Taxonomy. 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 of inactive term snf current use of anticoagulant therapy 0 03/16/2005 Overview: 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 of inactive term SPENCER (obstructive sleep apnea) 06/11/2001 Overview: CPAP 11 cwp? AHP Gout of wrist documented as of this encounter (statuses as of 08/21/2023) Resolved Problems Problem Noted Date Diagnosed Date [...] as of this encounter (statuses as of 08/21/2023) Immunizations Name Administration Dates Next Due COVID-19 mRNA, LNP-s, No Pre serve, 2-Dose Series ([employer]) 06/20/2021,10/22/2020,09/26/2020 COVID-19, LNP-s, No Preserve , Jamie-sucrose, Ages 12+ ([employer]) 03/13/2022 Covid-19, Mrna, Lnp-s, Pf, B ivalent, 30 Mcg, IM, 12 yrs and above (Pfizer) 09/20/2022 Pneumococcal Conjugate Vacci ne, 20-valent ([id number]) 03/14/2022 Pneumococcal Polysaccharide PPV23 (Pneumovax) 03/19/2006 Seasonal [...] encounter Miscellaneous Notes * Telephone Encounter - Jena Haas, [facility] - 08/20/2023 1:48 PM EST Patient recently discharged from [facility]. Previous HTN regimen as below: Hypertension [...] steps/possible hospital f/u. Thank you! Jena Haas [facility], PharmD Clinical Pharmacist - Head Control Clerk Medication Therapy Disease Management Clinic 08/21/2023, 4:41 PM [phone] documented in this encounter Plan of Treatment Upcoming Encounters Date Type Department Care Team (Late st Contact Info) Description 08/27/2023 5:10 PM EST 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 Pharmacy, [address] [place] [address] [place] [address] 09/02/2023 1:00 PM EST Office Visit Ophthalmology, [facility] [place] [address] Mika Diaz, [address] [place] [address] 09/04/2023 11:10 AM EST Office Visit Family Medicine [address] [place] [phone] Nancy Ryan[address] [place] [address] 09/20/2023 8:50 AM EST Office Visit Family Medicine [address] [place] [phone] Nancy Ryan[address] [place] [address] 10/01/2023 9:00 AM EST Office Visit Cardiology [address] [place] [address] Prabhakar Henning PAJoseC [address] [place] [address] 10/15/2023 1:45 PM EST Office Visit Hematology/Oncology [place] [address] [facility] [place] [address] Fly Velazquez MD [address] [facility] [place] [address] 10/23/2023 10:00 AM EDT [facility] [place] [address] [place] [phone] Dorothy Toscano CRNP [address] [place] [address] 12/25/2023 2:00 PM EDT Office Visit Nephrology, [facility] [place] [address] ZeBeckie cruz PA-C [address] [facility] [place] [address] Scheduled Procedures Name Priority Associated Diagnoses Date/Ti [...] Additional history exists CKD PHOS USE SMARTSET 46865 09/18/2023 02/0 02/2023, 08/29/2021, 08/02/2020, Additional history exists Diabetic Eye Exam 10/09/2023 10/09/2022, , 06/12/2022, Additional history exists HbA1c 01/14/2024 07/15/2023, 08/0 03/2023, 09/18/2022, Additional history exists GFR 01/28/2024 07/29/2023, 12/0 11/2022, 06/17/2023, Additional history exists Albumin/Creatinine Ratio 02/20/2024 023, 03/14/2022, 05/19/2021, Additional history exists CKD HGB USE SMARTSET 46746 07/29/202407/29, 07/29/2023, 07/15/2023, Additional history exists COLONOSCOPY-EVERY [...] this encounter Medical Devices Implanted Type Area Garment Looper Device Identifier Shelf Expiration Date Model / Serial / Lot Envista Hydrophobic Acrylic Intraocular Lens Implanted:Qty: 1 on 12/25/2016 by Raul Neely MD at OR [facility] Right: Eye [employer] 11/09/2018 [id number] / [id number] Envista Mx60 +10.0 D Implanted:Qty: 1 on 01/29/2017 by Raul Neely MD at OR [facility] Left: Eye 11/09/2018 [id number] / [id number] / [id number] documented as of this encounter Advance Directives [...] and were consensually agreed upon. Care Teams Scholastic Aptitude Test Grader Relationship Specialty Start Date End Date Nancy Ryan DO [address] [place] [address] [place] [phone] PCP - General Internal Medicine 09/11/18 documented as of this encounter
--- OUTSIDE RECORDS SUMMARY | 2023-11-13 21:35 | External Medical Summary | Summary of Care ---
Author Name Unknown Organization [facility] Address [address] [place] [address] Phone [phone] Care Team Providers Care Roads And Parking Lots Sweeper Operator Name Role Phone Nancy Ryan DO Primary Care Provider Reason for Visit * Reason Onset Date Comments Home Health 08/20/2023 Encounter Details Date Type Department Care Team (Late st Contact Info) Description 08/20/2023 Telephone Family Medicine [address] [phone] Nancy Ryan DO [address] [place] [address] [place] [address] Home Health Allergies No known active allergiesdocumented as of this encounter (statuses as of 08/20/2023) Medications Medication Sig Dispensed Refills Start Date End Date Status MULTIPLE VITAMIN PO TABS 1 TABLET DAILY 0 07/03/2011 Active OMEGA-3 FISH OIL 1000 MG PO CAPS Take one capsule by mouth daily 0 07/03/2011 Active Blood Glucose Monitoring Suppl (EarLens ULTRA SYSTEM) W/DEVICE KITIndications:DM type 2, goal [...] of less than 7.0% ([facility]) Use once a day with basaglar. DX e11.9 100 Each 3 10/17/2021 Active Rhopressa 0.02 % Ophthalmic Solution Instill 1 Drop into the left eye at bedtime. 0 05/17/2022 Active Vitamin C 1000 MG Oral Tablet Take 1 Tablet by mouth in the morning. 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 0 06/04/2023 Active Epoetin Gautam-epbx 25516 UNIT/ML Injection Solution (Retacrit) Inject 2 mL [...] as of this encounter (statuses as of 08/20/2023) Active Problems Problem Noted Date Diagnosed Date [...] Diabetes Taxonomy. 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 AHP Gout of wrist documented as of this encounter (statuses as of 08/20/2023) Resolved Problems Problem Noted Date Diagnosed Date [...] as of this encounter (statuses as of 08/20/2023) Immunizations Name Administration Dates Next Due COVID-19 mRNA, LNP-s, No Pre serve, 2-Dose Series (QuesCom) 06/20/2021,10/22/2020,09/26/2020 COVID-19, LNP-s, No Preserve , Jamie-sucrose, Ages 12+ (QuesCom) 03/13/2022 Covid-19, Mrna, Lnp-s, Pf, B ivalent, 30 Mcg, IM, 12 yrs and above (Pfizer) 09/20/2022 Pneumococcal Conjugate Vacci ne, 20-valent ([id number]) 03/14/2022 Pneumococcal Polysaccharide PPV23 (Pneumovax) 03/19/2006 Seasonal [...] Telephone Encounter - Enriqueta Baker LPN - 08/20/2023 3:51 PM EST Yogi from [facility] calling to check if pt has made hospital f/u appt with PCPs office. He was discharged from [facility] on 08/16. Yogi would like the office to contact pt to make appt. If there is no appt made HH services will not be covered. I called pt to scheduled h/d appt. He would prefer to only see Dr Ryan or Dr Ramirez. No appt with either until 09/04 with Shelby and 09/03 with James. Per pt request I scheduled with Dr Ryan on 09/04 and placed on wait list. Called yogi back and made her aware of appt. documented in this encounter Plan of Treatment Upcoming Encounters Date Type Department Care Team (Late st Contact Info) Description 08/27/2023 5:10 PM EST 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 Pharmacy, [address] [place] [address] [place] [address] 09/02/2023 1:00 PM EST Office Visit Ophthalmology, [facility] [address] [place] [address] Mika Diaz [address] [place] [address] 09/04/2023 11:10 AM EST Office Visit Family Medicine [address] [place] [phone] Nancy Ryan [address] [place] [address] 09/20/2023 8:50 AM EST Office Visit Family [address] [place] [phone] Nancy Ryan [address] [place] [address] 10/01/2023 9:00 AM EST Office Visit Cardiology [address] [place] [address] Prabhakar Henning PA-C [address] [place] [address] 10/15/2023 1:45 PM EST [facility] [place] 200 [facility] [place] [address] Fly Velazquez MD 200 [facility] [place] [address] 10/23/2023 10:00 AM EDT Office Visit [facility] [place] [facility] [place] [phone] Dorothy Toscano CRNP 132 [facility] [place] [address] 12/25/2023 2:00 PM EDT Office Visit Nephrology, [facility] [place] [facility] [place] [address] Zemaitis, Beckie Tucker PA-C 200 [facility] [place] [address] Scheduled Procedures Name Priority Associated Diagnoses Date/Ti [...] Additional history exists CKD PHOS USE SMARTSET 68856 09/18/2023 02/0 02/2023, 08/29/2021, 08/02/2020, Additional history exists Diabetic Eye Exam 10/09/2023 10/09/2022, , 06/12/2022, Additional history exists HbA1c 01/14/2024 07/15/2023, 08/0 03/2023, 09/18/2022, Additional history exists GFR 01/28/2024 07/29/2023, 1211/2022, 06/17/2023, Additional history exists Albumin/Creatinine Ratio 02/20/2024 023, 03/14/2022, 05/19/2021, Additional history exists CKD HGB USE SMARTSET 69879 07/29/202407/29, 07/29/2023, 07/15/2023, Additional history exists COLONOSCOPY-EVERY [...] this encounter Medical Devices Implanted Type Area Salesperson Burial Needs Device Identifier Shelf Expiration Date Model / Serial / Lot Envista Hydrophobic Acrylic Intraocular Lens Implanted:Qty: 1 on 12/25/2016 by Raul Neely MD at OR [facility] Right: Eye [employer] 11/09/2018 [id number] / [id number] Envista Mx60 +10.0 D Implanted:Qty: 1 on 01/29/2017 by Ralu Neely MD at [facility] Left: Eye 11/09/2018 [id number] / [id number] documented as of this encounter Advance Directives [...] and were consensually agreed upon. Care Teams Roads And Parking Lots Sweeper Operator Relationship Specialty Start Date End Date Nancy Ryan DO [address] [place] [address] [place] [address] PCP - General Internal Medicine 09/11/18 documented as of this encounter
--- OUTSIDE RECORDS SUMMARY | 2023-11-13 21:35 | External Medical Summary | Summary of Care ---
Author Name Unknown Organization [facility] Address [address] [place] [address] Phone [phone] Care Team Providers Care Autocad Designer Name Role Phone Nancy Ryan DO Primary Care Provider Reason for Visit * Reason Onset Date Comments Medication Refill 08/20/2023 Encounter Details Date Type Department Care Team (Late st Contact Info) Description 08/20/2023 Telephone Family Medicine [address] [phone] Nancy Ryan DO [address] [place] [address] [place] [address] Medication Refill Allergies No known active allergiesdocumented as of this encounter (statuses as of 08/20/2023) Medications Medication Sig Dispensed Refills Start Date End Date Status MULTIPLE VITAMIN PO TABS 1 TABLET DAILY 0 07/03/2011 Active OMEGA-3 FISH OIL 1000 MG PO CAPS Take one capsule by mouth daily 0 07/03/2011 Active Blood Glucose Monitoring Suppl (Ph[employer] Capital ULTRA SYSTEM) W/DEVICE KITIndications:DM type 2, goal [...] long-term current use of insulin ([facility]),Type 2 diabetes mellitus with hemoglobin A1c goal [...] of DVT (deep vein thrombosis),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 management encounter,group home current use of anticoagulant therapy Take 5 [...] long-term current use of insulin ([facility]) Inject 48 Units under the skin in [...] long-term current use of insulin ([facility]) Use TWICE a day to test glucose [...] the morning. 0 06/04/2023 Active Epoetin Gautam-epbx 73973 UNIT/ML Injection Solution (Retacrit) Inject 2 mL [...] Diabetes Taxonomy. 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 of inactive term group home current use of anticoagulant therapy 0 03/16/2005 [...] mRNA, LNP-s, No Pre serve, 2-Dose Series (TicTacTi) 06/20/2021,10/22/2020,09/26/2020 COVID-19, LNP-s, No Preserve , Jamie-sucrose, Ages 12+ (TicTacTi) 03/13/2022 Covid-19, Mrna, Lnp-s, Pf, B ivalent, 30 Mcg, IM, 12 yrs and above (Pfizer) 09/20/2022 Pneumococcal Conjugate Vacci ne, 20-valent ([id number]) 03/14/2022 Pneumococcal Polysaccharide PPV23 (Pneumovax) 03/19/2006 Seasonal [...] encounter Miscellaneous Notes * Telephone Encounter - Bart Villa, front end loader driver - 08/20/2023 10:32 AM EST Pt calling to request refill for Sodium Bicarbonate. Informed caller prescription available at their pharmacy. Placed outgoing call to pharmacy and requesting they process pt's remaining refills. Informed caller their prescription will be available later today. Thank you, Bart Villa Senior Project Accountant I [facility]) 08/20/2023,10:37 AM documented in this encounter Plan of Treatment Upcoming Encounters Date Type Department Care Team (Late st Contact Info) Description 09/02/2023 1:00 PM EST Office Visit Ophthalmology, [facility] [place] [address] [place] [address] Mika Diaz DO 132 [place] [address] 09/20/2023 8:50 AM EST Office Visit Family Medicine [address] [place] [phone] [place] [address] 10/01/2023 9:00 AM EST Office Visit Cardiology [address] [place] [address] Prabhakar Henning PAJoseC [address] [place] [address] 10/15/2023 1:45 PM EST Office Visit Hematology/Oncology [place] 200 [facility] [place] [address] Fly Velazquez MD 200 [facility] [place] [address] 10/23/2023 10:00 AM EDT Office Visit Sleep Disorders Ctr [facility] [place] [address] [place] [phone] Dorothy Toscano, TRIAL PARALEGAL [address] [place] [address] 12/25/2023 2:00 PM EDT Office Visit Nephrology, [place] 200 [facility] [place] [address] Zemaitis, Beckie Tucker PA-C 200 [facility] [place] [address] Scheduled Procedures Name Priority Associated Diagnoses Date/Ti [...] Additional history exists CKD PHOS USE SMARTSET 67149 09/18/202302/2023, 08/29/2021, 08/02/2020, Additional history exists Diabetic Eye Exam 10/09/2023 10/09/2022, , 06/12/2022, Additional history exists HbA1c 01/14/2024 07/15/2023, 080 03/2023, 09/18/2022, Additional history exists GFR 01/28/2024 07/29/2023, 1211/2022, 06/17/2023, Additional history exists Albumin/Creatinine Ratio 02/20/2024 023, 03/14/2022, 05/19/2021, Additional history exists CKD HGB USE SMARTSET 53967 07/29/202407/29, 07/29/2023, 07/15/2023, Additional history exists COLONOSCOPY-EVERY [...] this encounter Medical Devices Implanted Type Area Rv Detailer Device Identifier Shelf Expiration Date Model / Serial / Lot Envista Hydrophobic Acrylic Intraocular Lens Implanted:Qty: 1 on 12/25/2016 by Raul Neely MD at OR [facility] Right: Eye [employer] 11/09/2018 [id number] / [id number] / [id number] Envista Mx60 +10.0 D Implanted:Qty: 1 on 01/29/2017 by Raul Neely MD at OR [facility] Left: Eye 11/09/2018 [id number] / [id number] documented as of this encounter Advance Directives [...] and were consensually agreed upon. Care Teams Autocad Designer Relationship Specialty Start Date End Date Nancy Ryan DO [address] [place] [address] [place] [phone] PCP - General Internal Medicine 09/11/18 documented as of this encounter
--- OUTSIDE RECORDS SUMMARY | 2023-11-13 21:35 | External Medical Summary | Summary of Care ---
Author Name Unknown Organization [facility] Address [address] [place] [address] Phone [phone] Care Team Providers Care Management Rep Name Role Phone Nancy Ryan DO Primary Care Provider Reason for Visit * Reason Comments Dosage Adjustment Via Phone (anticoag Cl inic) Encounter Details Date Type Department Care Team (Latest Contact Info) Description 08/19/2023 5:10 PM EST 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 Pharmacy, [address] [place] [address] [place] [address] History of DVT (deep vein thrombosis)* Allergies No known active allergiesdocumented as of this encounter (statuses as of 08/20/2023) Medications Medication Sig Dispensed Refills Start Date End Date Status MULTIPLE VITAMIN PO TABS 1 TABLET DAILY 0 07/03/2011 Active OMEGA-3 FISH OIL 1000 MG PO CAPS Take one capsule by mouth daily 0 07/03/2011 Active Blood Glucose Monitoring Suppl (ShopSocially ULTRA SYSTEM) W/DEVICE KITIndications:DM type 2, goal [...] long-term current use of insulin ([facility]),Type 2 diabetes mellitus with hemoglobin A1c goal of less than 7.0% ([facility]) Use once a day with [...] DVT (deep vein thrombosis),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 management encounter,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 0 06/04/2023 Active Epoetin Gautam-epbx 79152 UNIT/ML Injection Solution (Retacrit) Inject 2 mL [...] Taxonomy. 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 0 03/16/2005 [...] mRNA, LNP-s, No Pre serve, 2-Dose Series ([facility]) 06/20/2021,10/22/2020,09/26/2020 COVID-19, LNP-s, No Preserve , Jamie-sucrose, Ages 12+ ([facility]) 03/13/2022 Covid-19, Mrna, Lnp-s, Pf, B ivalent, 30 Mcg, IM, 12 yrs and above (Pfizer) 09/20/2022 Pneumococcal Conjugate Vacci ne, 20-valent ([id number]) 03/14/2022 Pneumococcal Polysaccharide PPV23 (Pneumovax) 03/19/2006 Seasonal [...] this encounter Progress Notes * Jena Haas, [facility] - 08/20/2023 1:33 PM EST Per chart review, patient discharged from [facility] on 08[facility]16[facility]. Per discharge summary, warfarin was stopped d/t coffee ground emesis/dark stools. Concerned for GI bleed. Recommended GI f/u for EGD/colonoscopy. Discussed case with PCP, agreeable to continue holding warfarin at this time. Call placed to f/u onstatus x1 week. Jena Haas RPh, PharmD Clinical Pharmacist - Report Developer Medication Therapy [facility] 08/20/2023, 1:46 PM [phone] documented in this encounter Plan of Treatment Upcoming Encounters Date Type Department Care Team (Late st Contact Info) Description 08/27/2023 5:10 PM EST 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 Pharmacy, [address] [place] [address] [place] [address] 09/02/2023 1:00 PM EST Office Visit Ophthalmology, [facility] [address] [place] [address] Mika Diaz DO [address] [place] [address] 09/20/2023 8:50 AM EST Office Visit Family Medicine [address] [place] [phone] [place] [address] 10/01/2023 9:00 AM EST Office Visit Cardiology [address] [place] [address] Prabhakar Henning PA-C [address] [place] [address] 10/15/2023 1:45 PM EST Office Visit Hematology/Oncology [facility] [place] 200 [facility] [place] [address] Fly Velazquez MD 200 [facility] [address] 10/23/2023 10:00 AM EDT Office Visit [facility] Disorders Ctr [facility] [address] [place] [phone] Dorothy Toscano CRNP [address] [place] [address] 12/25/2023 2:00 PM EDT Office Visit Nephrology, [facility] [place] 200 [facility] [place] [address] ZemaBeckie umanzor PA-C 200 [facility] [place] [address] Scheduled Procedures Name Priority Associated Diagnoses Date/Ti [...] Additional history exists CKD PHOS USE SMARTSET 42673 09/18/2023 020 02/2023, 08/29/2021, 08/02/2020, Additional history exists Diabetic Eye Exam 10/09/2023 10/09/2022, , 06/12/2022, Additional history exists HbA1c 01/14/2024 07/15/2023, 08/0 03/2023, 09/18/2022, Additional history exists GFR 01/28/2024 07/29/2023, 3, 06/17/2023, Additional history exists Albumin/Creatinine Ratio 02/20/2024 023, 03/14/2022, 05/19/2021, Additional history exists CKD HGB USE SMARTSET 51076 07/29/202407/29, 07/29/2023, 07/15/2023, Additional history exists COLONOSCOPY-EVERY 5 YRS AGES 18-100 02/09/2027 02/09/2022, 09/11/2018, 12/07/2008 Lipid Panel 02/11/2028 02/10/2023, 10/2021, 05/19/2021, Additional history exists DTaP,Tdap,and Td [...] this encounter Medical Devices Implanted Type Area Shop Tailor Device Identifier Shelf Expiration Date Model / Serial / Lot Envista Hydrophobic Acrylic Intraocular Lens Implanted:Qty: 1 on 12/25/2016 by Raul Neely MD at OR [facility] Right: Eye [employer] 11/09/2018 [id number] / [id number] / [id number] Envista Mx60 +10.0 D Implanted:Qty: 1 on 01/29/2017 by Raul Neely MD at OR [facility] Left: Eye 11/09/2018 [id number] / [id number] / [id number] documented as of this encounter Visit Diagnoses [...] and were consensually agreed upon. Care Teams Management Rep Relationship Specialty Start Date End Date Nancy Ryan DO [address] [place] [address] [place] [address] PCP - General Internal Medicine 09/11/18 documented as of this encounter
--- OUTSIDE RECORDS SUMMARY | 2023-11-13 21:35 | External Medical Summary | Summary of Care ---
Author Name Unknown Organization [facility] Address [address] [place] [address] Phone [phone] Care Team Providers Care Director Of Employee Development Name Role Phone Nancy Ryan DO Primary Care Provider Reason for Visit * Reason Onset Date Comments Fax 08/20/2023 Encounter Details Date Type Department Care Team (Late st Contact Info) Description 08/20/2023 Telephone Family Medicine [address] [phone] Nancy Ryan DO [address] [place] [address] [place] [address] Fax Allergies No known active allergiesdocumented as of this encounter (statuses as of 08/21/2023) Medications Medication Sig Dispensed Refills Start Date End Date Status MULTIPLE VITAMIN PO TABS 1 TABLET DAILY 0 07/03/2011 Active OMEGA-3 FISH OIL 1000 MG PO CAPS Take one capsule by mouth daily 0 07/03/2011 Active Blood Glucose Monitoring Suppl (IntroNet ULTRA SYSTEM) W/DEVICE KITIndications:DM type 2, goal [...] long-term current use of insulin ([facility]),Type 2 diabetes mellitus with hemoglobin A1c goal of less than 7.0% ([facility]) Use once a day with basaglar. DX e11.9 100 Each 3 10/17/2021 Active Rhopressa 0.02 % Ophthalmic Solution Instill 1 Drop into the left eye at bedtime. 0 05/17/2022 Active Vitamin C 1000 MG Oral Tablet Take 1 Tablet by mouth in the morning. 0 Active Warfarin Sodium 5 MG Oral Tablet (Coumadin)Indicati ons:History of DVT (deep vein thrombosis),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 management encounter,[facility] current use of anticoagulant therapy Take 5 [...] long-term current use of insulin ([facility]) Inject 48 Units under the [...] long-term current use of insulin ([facility]) Use TWICE a day to [...] the morning. 0 06/04/2023 Active Epoetin Gautam-epbx 31073 UNIT/ML Injection Solution (Retacrit) Inject 2 mL [...] Non-obstructive. Noted on CT scan at [facility] 05/2019 Mild nonproliferative diabet ic retinopathy of [...] Diabetes Taxonomy. 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 of inactive term [facility] current use of anticoagulant therapy 0 03/16/2005 [...] mRNA, LNP-s, No Pre serve, 2-Dose Series ([facility]) 06/20/2021,10/22/2020,09/26/2020 COVID-19, LNP-s, No Preserve , Jamie-sucrose, Ages 12+ ([facility]iond[facility]ax) 03/13/2022 Covid-19, Mrna, Lnp-s, Pf, B ivalent, 30 Mcg, IM, 12 yrs and above (Pfizer) 09/20/2022 Pneumococcal Conjugate Vacci ne, 20-valent ([id number]) 03/14/2022 Pneumococcal Polysaccharide PPV23 (Pneumovax) 03/19/2006 Seasonal [...] encounter Miscellaneous Notes * Telephone Encounter - Ambar Wiley RN - 08/21/2023 4:44 PM EST Yes we have D/C Summary * Telephone Encounter - Mikki Coleman OSA - 08/20/2023 11:17 AM EST Received a call asking if fax was received by office. Name/Company sending fax: [facility] What fax is pertaining to: Discharge Summary Date(s) they sent request: 08/20/23 Verified fax number they are sending to is correct (Y or N): Y Callback Number for the clinic to call to verified if fax was received: [phone] documented in this encounter Plan of Treatment Upcoming Encounters Date Type Department Care Team (Late st Contact Info) Description 08/27/2023 5:10 PM EST 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 Pharmacy, [address] [place] [address] [place] [address] 09/02/2023 1:00 PM EST Office Visit Ophthalmology, [facility] 132 [facility] [place] [address] Mika Diaz, [address] [place] [address] 09/04/2023 11:10 AM EST Office Visit Family Medicine [address] [phone] Nancy Ryan [address] [place] [address] 09/20/2023 8:50 AM EST Office Visit Family [address] [place] [phone] Nancy Ryan [address] [place] [address] 10/01/2023 9:00 AM EST Office Visit Cardiology [address] [place] [address] Prabhakar Henning PAJoseC [address] [place] [address] 10/15/2023 1:45 PM EST Office Visit Hematology/Oncology [facility] [place] 200 [facility] [place] [address] Fly Velazquez MD 200 [facility] [place] [address] 10/23/2023 10:00 AM EDT Office Visit [facility] [place] [phone] Dorothy Toscano CRNP [address] [facility] [place] [address] 12/25/2023 2:00 PM EDT Office Visit Nephrology, [facility] 200 [facility] [place] [address] ZemaBeckie umanzor PA-C 200 [facility] [place] [address] Scheduled Procedures Name Priority Associated Diagnoses Date/Ti [...] Additional history exists CKD PHOS USE SMARTSET 08825 09/18/2023 02/0 02/2023, 08/29/2021, 08/02/2020, Additional history exists Diabetic Eye Exam 10/09/2023 10/09/2022, , 06/12/2022, Additional history exists HbA1c 01/14/2024 07/15/2023, 08/0 03/2023, 09/18/2022, Additional history exists GFR 01/28/2024 07/29/2023, 120 11/2022, 06/17/2023, Additional history exists Albumin/Creatinine Ratio 02/20/2024 023, 03/14/2022, 05/19/2021, Additional history exists CKD HGB USE SMARTSET 25115 07/29/202407/29, 07/29/2023, 07/15/2023, Additional history exists COLONOSCOPY-EVERY [...] encounter Medical Devices Implanted Type Area Rail Car Welder Device Identifier Shelf Expiration Date Model / Serial / Lot Envista Hydrophobic Acrylic Intraocular Lens Implanted:Qty: 1 on 12/25/2016 by Raul Neely MD at [facility] Right: Eye [employer] 11/09/2018 [id number] / [id number] / [id number] Envista Mx60 +10.0 D Implanted:Qty: 1 on 01/29/2017 by Raul Neely MD at [facility] Left: Eye 11/09/2018 [id number] / [id number] documented as of this encounter Advance Directives [...] consensually agreed upon. Care Teams Director Of Employee Development Relationship Specialty Start Date End Date Nancy Ryan DO [address] [place] [address] [place] [address] PCP - General Internal Medicine 09/11/18 documented as of this encounter
--- OUTSIDE RECORDS SUMMARY | 2023-11-13 21:35 | External Medical Summary | Summary of Care ---
Author Name Unknown Organization [facility] Address [address] [place] [address] Phone [phone] Care Team Providers Care Stakeholder Manager Name Role Phone Nancy Ryan DO Primary Care Provider Reason for Visit * Reason Onset Date Comments Appointment 08/20/2023 Encounter Details Date Type Department Care Team (Late st Contact Info) Description 08/20/2023 Telephone Family Medicine [address] [phone] Nancy Ryan DO [address] [place] [address] [place] [address] Appointment Allergies No known active allergiesdocumented as of this encounter (statuses as of 08/21/2023) Medications Medication Sig Dispensed Refills Start Date End Date Status MULTIPLE VITAMIN PO TABS 1 TABLET DAILY 0 07/03/2011 Active OMEGA-3 FISH OIL 1000 MG PO CAPS Take one capsule by mouth daily 0 07/03/2011 Active Blood Glucose Monitoring Suppl (Sambazon ULTRA SYSTEM) W/DEVICE KITIndications:DM type 2, goal [...] neuropathy, with long-term current use of insulin ([facility]),Type 2 diabetes mellitus with hemoglobin A1c goal of less than 7.0% ([facility]) Use once a day with basaglar. DX e11.9 100 Each 3 10/17/2021 Active Rhopressa 0.02 % Ophthalmic Solution Instill 1 Drop into the left eye at bedtime. 0 05/17/2022 Active Vitamin C 1000 MG Oral Tablet Take 1 Tablet by mouth in the morning. 0 Active Warfarin Sodium 5 MG Oral Tablet (Coumadin)Indicati ons:History of DVT (deep vein thrombosis),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 management encounter,[facility] current use of anticoagulant therapy Take 5 [...] neuropathy, with long-term current use of insulin ([facility]) Inject 48 Units under the [...] neuropathy, with long-term current use of insulin ([facility]) Use TWICE a day to [...] the morning. 0 06/04/2023 Active Epoetin Gautam-epbx 79713 UNIT/ML Injection Solution (Retacrit) Inject 2 mL [...] Noted on CT scan at [facility] 05/2019 Mild nonproliferative diabet ic [...] Taxonomy. 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 0 03/16/2005 [...] mRNA, LNP-s, No Pre serve, 2-Dose Series (Aveillant) 06/20/2021,10/22/2020,09/26/2020 COVID-19, LNP-s, No Preserve , Jamie-sucrose, Ages 12+ (Pfizer) 03/13/2022 Covid-19, Mrna, Lnp-s, Pf, B ivalent, 30 Mcg, IM, 12 yrs and above (Pfizer) 09/20/2022 Pneumococcal Conjugate Vacci ne, 20-valent ([id number]) 03/14/2022 Pneumococcal Polysaccharide PPV23 (Pneumovax) 03/19/2006 Seasonal [...] Encounter - Ambar Wiley RN - 08/21/2023 7:12 AM EST Pt is scheduled for 09/[address] Ryan * Telephone Encounter - Lucía Franklin OSA - 08/20/2023 4:02 PM EST [facility] calling in wants nurse to call pt to get a HD appt documented in this encounter Plan of Treatment Upcoming Encounters Date Type Department Care Team (Late st Contact Info) Description 08/27/2023 5:10 PM EST 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 Pharmacy, [address] [place] [address] [place] [address] 09/02/2023 1:00 PM EST Office Visit Ophthalmology, [facility] [address] [place] [address] Mika Diaz DO [facility] [address] [place] [address] 09/04/2023 11:10 AM EST Office Visit Family Medicine [address] [place] [phone] [address] [place] [address] 09/20/2023 8:50 AM EST Office Visit Family Medicine [address] [place] [phone] Nancy Ryan [address] [place] [address] 10/01/2023 9:00 AM EST Office Visit Cardiology [address] [place] [address] Prabhakar Henning PAJoseC [address] [place] [address] 10/15/2023 1:45 PM EST [facility] [place] [address] [facility] [place] [address] Fly Velazquez MD [address] [facility] [place] [address] 10/23/2023 10:00 AM EDT Office Visit Sleep Disorders Ctr Manny [place]ne [place] [address] [place] [phone] Dorothy Toscano CRNP [address] [place] [address] 12/25/2023 2:00 PM EDT Office Visit Nephrology, [facility] [address] [facility] [place] [address] Zemaitis, Beckie Tucker PA-C [address] [facility] [place] [address] Scheduled Procedures Name Priority Associated Diagnoses Date/Ti [...] Additional history exists CKD PHOS USE SMARTSET 59650 09/18/2023 020 02/2023, 08/29/2021, 08/02/2020, Additional history exists Diabetic Eye Exam 10/09/2023 10/09/2022, , 06/12/2022, Additional history exists HbA1c 01/14/2024 07/15/2023, 03/2023, 09/18/2022, Additional history exists GFR 01/28/2024 07/29/2023, 11/2022, 06/17/2023, Additional history exists Albumin/Creatinine Ratio 02/20/2024 023, 03/14/2022, 05/19/2021, Additional history exists CKD HGB USE SMARTSET 69679 07/29/202407/29, 07/29/2023, 07/15/2023, Additional history exists COLONOSCOPY-EVERY [...] this encounter Medical Devices Implanted Type Area Church Official Device Identifier Shelf Expiration Date Model / Serial / Lot Envista Hydrophobic Acrylic Intraocular Lens Implanted:Qty: 1 on 12/25/2016 by Raul Neely MD at OR [facility] Right: Eye [employer] 11/09/2018 [id number] / [id number] Envista Mx60 +10.0 D Implanted:Qty: 1 on 01/29/2017 by Raul Neely MD at OR [facility] Left: Eye 11/09/2018 [id number] / [id number] documented as of this encounter Advance Directives [...] and were consensually agreed upon. Care Teams Stakeholder Manager Relationship Specialty Start Date End Date Nancy Ryan DO [address] [place] [address] [place] [phone] PCP - General Internal Medicine 09/11/18 documented as of this encounter
--- OUTSIDE RECORDS SUMMARY | 2023-11-13 21:35 | External Medical Summary | Summary of Care ---
Author Name Unknown Organization [facility] Address [address] [place] [address] Phone [phone] Care Team Providers Care Plant Technician Name Role Phone Nancy Ryan DO Primary Care Provider Encounter Details Date Type Department Care Team (Late st Contact Info) Description 08/20/2023 Telephone Pharmacy, [address] [place] [address] [facility] [address] [place] [address] Allergies No known active allergiesdocumented as of this encounter (statuses as of 08/22/2023) Medications Medication Sig Dispensed Refills Start Date End Date Status MULTIPLE VITAMIN PO TABS 1 TABLET DAILY 0 07/03/2011 Active OMEGA-3 FISH OIL 1000 MG PO CAPS Take one capsule by mouth daily 0 07/03/2011 Active Blood Glucose Monitoring Suppl (Centrobit Agora ULTRA SYSTEM) W/DEVICE KITIndications:DM type 2, goal [...] long-term current use of insulin ([facility]),Type 2 diabetes mellitus with hemoglobin [...] of DVT (deep vein thrombosis),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 management encounter,extermination inspector current use of anticoagulant therapy Take [...] long-term current use of insulin ([facility]) Inject 48 Units under the [...] long-term current use of insulin ([facility]) Use TWICE a day to test glucose Diagnosis = E11.9 200 Each 3 03/19/2023 Active Ozempic (2 MG/DOSE) 8 MG/3ML Subcutaneous Solution Pen-injector (Semaglutide (2 MG/DOSE))Indicatio ns:Type 2 diabetes mellitus with diabetic neuropathy, with long-term current use of insulin ([facility]) Inject 2 mg under the [...] long-term current use of insulin ([facility]) Take 1 Tablet by mouth [...] the morning. 0 06/04/2023 Active Epoetin Gautam-epbx 70190 UNIT/ML Injection Solution (Retacrit) Inject 2 mL [...] Diabetes Taxonomy. 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 of inactive term care home current use of anticoagulant therapy 0 [...] mRNA, LNP-s, No Pre serve, 2-Dose Series (FreeCharge) 06/20/2021,10/22/2020,09/26/2020 COVID-19, LNP-s, No Preserve , Jamie-sucrose, Ages 12+ (FreeCharge) 03/13/2022 Covid-19, Mrna, Lnp-s, Pf, B ivalent, 30 Mcg, IM, 12 yrs and above (Pfizer) 09/20/2022 Pneumococcal Conjugate Vacci ne, 20-valent ([id number]) 03/14/2022 Pneumococcal Polysaccharide PPV23 (Pneumovax) 03/19/2006 Seasonal [...] 1:48 PM EST Patient recently discharged from [facility]. Previous HTN regimen as below: Hypertension Medications: [...] steps/possible hospital f/u. Thank you! Jena Haas [facility], PharmD Clinical Pharmacist - Oven Operator [facility] 08/21/2023, 4:41 PM [phone] documented in this encounter Plan of Treatment Upcoming Encounters Date Type Department Care Team (Late st Contact Info) Description 08/27/2023 5:10 PM EST 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 Pharmacy, [address] [place] [address] [place] [address] 09/02/2023 1:00 PM EST [facility] [place] [address] Mika Diaz, DO [address] [place] [address] 09/04/2023 11:10 AM EST Office Visit Family Medicine [address] [phone] Nancy [address] [place] [address] 09/20/2023 8:50 AM EST Office Visit Family Medicine [address] [place] [phone] [address] [place] [address] 10/01/2023 9:00 AM EST Office Visit Cardiology [address] [place] [address] Prabhakar Henning PA-C [address] [place] [address] 10/15/2023 1:45 PM EST Office Visit Hematology/Oncology [place] [address] [place] [address] Fly Velazquez MD [address] [place] [address] 10/23/2023 10:00 AM EDT Office Visit [facility] [place] [phone] Dorothy Toscano CRNP [address] [place] [address] 12/25/2023 2:00 PM EDT Office Visit Nephrology, [place] [address] [facility] [place] [address] Zemaerna, Beckie Tucker PA-C [address] [facility] [place] [address] Scheduled Procedures Name Priority Associated Diagnoses Date/Ti [...] Additional history exists CKD PHOS USE SMARTSET 02573 09/18/202302/2023, 08/29/2021, 08/02/2020, Additional history exists Diabetic Eye Exam 10/09/2023 10/09/2022, , 06/12/2022, Additional history exists HbA1c 01/14/2024 07/15/2023, 08/0 03/2023, 09/18/2022, Additional history exists GFR 01/28/2024 07/29/2023, 1211/2022, 06/17/2023, Additional history exists Albumin/Creatinine Ratio 02/20/2024 023, 03/14/2022, 05/19/2021, Additional history exists CKD HGB USE SMARTSET 15919 07/29/202407/29, 07/29/2023, 07/15/2023, Additional history exists COLONOSCOPY-EVERY [...] encounter Medical Devices Implanted Type Area Adjunct Instructor Of Women'S Studies Device Identifier Shelf Expiration Date Model / Serial / Lot Envista Hydrophobic Acrylic Intraocular Lens Implanted:Qty: 1 on 12/25/2016 by Raul Neely MD at OR [facility] Right: Eye [employer] 11/09/2018 [id number] / [id number] Envista Mx60 +10.0 D Implanted:Qty: 1 on 01/29/2017 by Raul Neely MD at OR [facility] Left: Eye 11/09/2018 [id number] / [id number] documented as of this encounter Advance Directives [...] and were consensually agreed upon. Care Teams Plant Technician Relationship Specialty Start Date End Date Nancy Ryan DO [address] [place] [address] [place] [phone] PCP - General Internal Medicine 09/11/18 documented as of this encounter
[2023-11-13] MEDS: LANTUS PER UNIT CHARGE SQ SCH (21:36)
--- OUTSIDE RECORDS SUMMARY | 2023-11-13 21:36 | External Medical Summary | Continuity of Care Document ---
Author Name Unknown Organization [facility] Address [address] [place] [id number] Care Team Providers Care Real Estate Operations Manager Name Role Phone Nancy Ibrahim Primary Care Physician [phone] [id number] Date(s): 08/13/23 - 08/16/[address] [phone] Encounter Diagnosis Calciphylaxis(Discharge Diagnosis) - 08/13/23 Cellulitis of leg(Discharge Diagnosis) - 08/14/23 Wound of lower extremity(Discharge Diagnosis) - 08/14/23 Anemia(Discharge Diagnosis) - 08/16/23 Anticoagulated on Coumadin(Discharge Diagnosis) - 08/16/23 GI bleed(Discharge Diagnosis) - 08/16/23 Discharge Disposition: Home w/ Home Health Care Attending Physician: MD Oswald Ritesh Admitting Physician: MD Arevalo Zackary Referring Physician: DO Min Grant W Allergies, Adverse Reactions, Alerts No Known Allergies Functional Status 08/16/23 History of Fall in Last 3 Months Gallardo N o Presence of Secondary Diagnosis Gallardo Ye s Use of Ambulatory Aid Gallardo Crutches/can e/walker IV/Heparin Lock Fall Risk Gallardo Yes Gait/Transferring Fall Risk Gallardo Normal /bedrest/immobile Mental Status Fall Risk Gallardo Oriented t o own ability Gallardo Fall Risk Score 50 Gallardo Fall Risk High risk 08/15/23 Neurological Symptoms None ADLs Independent Facial Symmetry Symmetric Gait Steady Swallowing Difficulty None Level of Consciousness Neuro Alert Hallucinations Present None Speech Pattern Clear Medications allopurinol 100 mg oral tablet Start: 01/30/23 12:01:00 EDT, 1 tab, PO, Daily, (total 400 mg daily) Start Date: 01/30/23 Status: Ordered allopurinol 300 mg oral tablet Start: 08/13/23 23:19:00 EST, 90 each, TAKE 1 TABLET BY MOUTH EVERY DAY Start Date: 08/13/23 Status: Ordered ammonium lactate 12% topical lotion Start: 08/16/23 14:43:00 EST, 1 appl, topical, bid Start Date: 08/16/23 Status: Ordered aspirin 81 mg oral tablet, chewable Start: 08/16/23 15:21:00 EST, 1 tab, PO, Daily, Disp# 30 tab, other Start Date: 08/16/23 Status: Ordered atorvastatin 20 mg oral tablet Start: 01/30/23 10:28:00 EDT, 1 tab, PO, qhs Start Date: 01/30/23 Status: Ordered Basaglar KwikPen 100 units/mL subcutaneous solution Start: 01/30/23 12:02:00 EDT, 20 unit =, subQ, Daily, Can increase dose as needed, please follow your blood sugars. Start Date: 01/30/23 Status: Ordered carvedilol 6.25 mg oral tablet Start: 01/30/23 10:28:00 EDT, 1 tab, PO, bid Start Date: 01/30/23 Status: Ordered cephalexin 500 mg oral capsule Start: 08/16/23 14:29:00 EST, 1 cap, PO, qid, Disp# 20 cap, Take 1 tablet four times a day, Pharmacy[place] [id number] Start Date: 08/16/23 Stop Date: 08/21/23 Status: Ordered dorzolamide-timolol 2.23%-0.68% ophthalmic solution Start: 01/30/23 10:27:00 EDT, 1 drop, both eyes, bid Start Date: 01/30/23 Status: Ordered HumaLOG Sliding Scale Ultra Low Dose Range: SSI, injection, subQ, 08/14/23 16:30:00 EST, 08/14/23 16:30:00 EST, Estimated correction need for patients using total insulin daily dose less than or equal to 30 units. Nursing to order low dose syringes from [facility] (see order comments)., ... Start Date: 08/14/23 Stop Date: 08/14/23 Status: Completed hydrocortisone 0.5% topical cream Start: 08/16/23 14:43:00 EST, 1 appl, topical, tid, Disp# 14 g, apply in a thin film to the affected skin and rub in gently and completely. Please use no more than 1 week from starting., Pharmacy: [facility] [id number] Start Date: 08/16/23 Stop Date: 08/23/23 Status: Ordered losartan 25 mg oral tablet Start: 08/16/23 15:16:00 EST, 0.5 tab, PO, Daily, Disp# 15 tab, Refills: 0, Pharmacy: [id number] Start Date: 08/16/23 Stop Date: 09/15/23 Status: Ordered Melatonin Start: 02/08/23 14:05:00 EDT, 3 mg =, PO, qhs Start Date: 02/08/23 Status: Ordered metFORMIN 500 mg oral tablet Start: 01/30/23 10:28:00 EDT, 1 tab, PO, bid Start Date: 01/30/23 Status: Ordered [place]-3 350 mg oral capsule Start: 02/27/23 11:03:00 EDT Start Date: 02/27/23 Status: Ordered Ozempic (1 mg dose) 4 mg/3 mL subQ pen Start: 08/13/23 23:20:00 EST Start Date: 08/13/23 Status: Ordered Ozempic (2 mg dose) 8 mg/3 mL subQ pen Start: 01/30/23 10:27:00 EDT, 2 mg =, subQ, q, on Saturday Start Date: 01/30/23 Status: Ordered pantoprazole 40 mg oral delayed release tablet Start: 08/16/23 14:44:00 EST, 1 tab, PO, Daily, Disp# 30 tab, Take 1 tablet emely, Pharmacy: [id number] Start Date: 08/16/23 Status: Ordered Rhopressa 0.02% ophthalmic solution 1 drop, right eye, qPM Start Date: 01/30/23 Status: Ordered sodium bicarbonate 650 mg oral tablet Start: 08/13/23 23:22:00 EST, 60 each, TAKE 2 TABLETS BY MOUTH FOUR TIMES A DAY (MORNING, NOON, EVENING & BEDTIME) Start Date: 08/13/23 Status: Ordered torsemide 20 mg oral tablet Start: 08/13/23 23:21:00 EST, 90 each, TAKE 1 TABLET BY MOUTH EVERY DAY IN THE MORNING Start Date: 08/13/23 Status: Ordered Tylenol 500 mg oral tablet Start: 02/08/23 14:04:00 EDT, 2 tab, PO, q8h Start Date: 02/08/23 Status: Ordered Vitamin C 25 mg oral tablet, chewable Start: 02/27/23 11:04:00 EDT, 1 tab, PO, bid Start Date: 02/27/23 Status: Ordered Mental Status 08/14/23 Communication Barrier Present No Primary Language Sri Lankan Problem List Condition Confirmation Course Effective Dates Status H ealth Status Informant Anemia Confirmed Active Anticoagulated on Coumadin Confirmed Active Carpal tunnel syndrome Confirmed Active CKD (chronic kidney disease), stage III Confirmed Active DVT (deep venous thrombosis) Confirmed Active Neuropathy Confirmed Active SPENCER on CPAP Confirmed Active Diagnosis Diagnosis Type Effective Dates Health Status Clinical Service Informant Calciphylaxis Discharge Diagnosis 08/13/23 Non-Specified Wound of lower extremity Discharge Diagnosis 08/14/23 Non-Specified Cellulitis of leg Discharge Diagnosis 08/14/23 Non-Specified Anemia Discharge Diagnosis 08/16/23 Anticoagulated on Coumadin Discharge Diagnosis 08/16/23 GI bleed Discharge Diagnosis 08/16/23 Non-Specified Results Laboratory List Name Date Glucose Meter (GLUCOSE METER) 08/16/23 Complete Blood Count (CBC w Platelets) Glucose Meter (GLUCOSE METER) 08/16/23 Glucose Meter (GLUCOSE METER) 08/16/23 Complete Blood Count w Differential (CBC w Platelets and Diff) 08/16/23 Magnesium Level (Mg Level) 08/16/23 Nephrology Panel 08/16/23 Complete Blood Count (CBC w Platelets) Complete Blood Count w Differential (CBC w Platelets and Diff) 08/15/23 Magnesium Level (Mg Level) 08/15/23 Nephrology Panel 08/15/23 Prothrombin Time w/ INR (PT/INR) 08/14/23 Ferritin 08/14/23 Iron Profile 08/14/23 Added on Lab order 08/14/23 MRSA Surveillance (Nasal Swab) 08/14/23 Parathyroid Hormone, Intact (PTH) 08/14/23 Added on Lab order 08/14/23 Phos, Mg (PHOS, MG) 08/14/23 Basic Metabolic Panel (BMP) 08/14/23 Complete Blood Count w Differential (CBC w Platelets and Diff) 08/14/23 Blood Type/Antibody Screen ( for possible transfusion) (Type and Screen (for possible transfusion)) 08/14/23 Most recent to oldest [Reference Range]: 1 2 3 ABO/Rh B POSITIVE (08/14/23 3:12 AM) Antibody Scr NEGATIVE (08/14/23 3:12 AM) Expires at 0600AM on 08/17/2023 (08/14/23 3:12 AM) # Units 0 (08/14/23 3:12 AM) R Number NRQ (08/14/23 3:12 AM) eGFR CKD-EPI [>60 mL/min/1.73 m2] 42 mL/min/1.73 m2 *LOW* (08/16/23 5:44 AM) 40 mL/min/1.73 m2 *LOW* (08/15/23 5:20 AM) 45 mL/min/1.73 m2 *LOW* (08/14/23 5:36 AM) Blood Glucose [70-120 mg/dL] 229 mg/dL 1 *HI* (08/14/23 4:17 PM) Request of Physician PT/INR (08/14/23 2:06 PM) phosmg (08/14/23 5:37 AM) Action Taken Test NOT added because: 2 (08/14/23 2:06 PM) YES (08/14/23 5:37 AM) Microcytes FEW (08/16/23 5:44 AM) Polychromasia INCREASED (08/16/23 5:44 AM) INCREASED (08/14/23 5:36 AM) Schistocytes FEW (08/14/23 5:36 AM) Spherocytes FEW (08/14/23 5:36 AM) Platelet Morphology NORMAL (08/16/23 5:44 AM) Estimated CrCl 60.76 mL/min (08/16/23 7:22 AM) 57.80 mL/min (08/15/23 6:09 AM) 64.03 mL/min (08/14/23 6:37 AM) MPV [9.0-12.2 fL] 10.0 fL (08/16/23 12:37 PM) 10.1 fL (08/16/23 5:44 AM) 10.2 fL (08/15/23 2:55 PM) Immature Gran% 0.9 % (08/16/23 5:44 AM) 0.5 % (08/15/23 5:20 AM) 0.0 % (08/14/23 5:36 AM) Neut% 62.5 % (08/16/23 5:44 AM) 68.7 % (08/15/23 5:20 AM) 84.6 % (08/14/23 5:36 AM) Lymph% 22.3 % (08/16/23 5:44 AM) 18.3 % (08/15/23 5:20 AM) 9.1 % (08/14/23 5:36 AM) [place]% 7.1 % (08/16/23 5:44 AM) 9.3 % (08/15/23 5:20 AM) 2.7 % (08/14/23 5:36 AM) Baso% 1.8 % (08/16/23 5:44 AM) 0.5 % (08/15/23 5:20 AM) 0.9 % (08/14/23 5:36 AM) Eos% 5.4 % (08/16/23 5:44 AM) 2.7 % (08/15/23 5:20 AM) 2.7 % (08/14/23 5:36 AM) Immat Gran, Abs [0.0-0.4 K/uL] 0.06 K/uL (08/16/23 5:44 AM) 0.00 K/uL (08/14/23 5:36 AM) Immat Gran, Abs [0-0.4 K/uL] 0.03 K/uL (08/15/23 5:20 AM) Neut, Abs [2.0-7.7 K/uL] 4.03 K/uL (08/16/23 5:44 AM) 4.58 K/uL (08/15/23 5:20 AM) 6.40 K/uL (08/14/23 5:36 AM) Lymph, Abs [1.0-3.4 K/uL] 1.44 K/uL (08/16/23 5:44 AM) 1.22 K/uL (08/15/23 5:20 AM) 0.69 K/uL *LOW* (08/14/23 5:36 AM) [place], Abs [0-1.0 K/uL] 0.46 K/uL (08/16/23 5:44 AM) 0.62 K/uL (08/15/23 5:20 AM) 0.20 K/uL (08/14/23 5:36 AM) Baso, Abs [0-0.1 K/uL] 0.12 K/uL *HI* (08/16/23 5:44 AM) 0.03 K/uL (08/15/23 5:20 AM) 0.07 K/uL (08/14/23 5:36 AM) Eos, Abs [0-0.5 K/uL] 0.35 K/uL (08/16/23 5:44 AM) 0.18 K/uL (08/15/23 5:20 AM) 0.20 K/uL (08/14/23 5:36 AM) Type of Diff: MANUAL (08/16/23 5:44 AM) AUTO (08/15/23 5:20 AM) MANUAL (08/14/23 5:36 AM) RDW [11.5-14.2 %] 19.1 % *HI* (08/16/23 12:37 PM) 18.9 % *HI* (08/16/23 5:44 AM) 18.9 % *HI* (08/15/23 2:55 PM) Component RED CELLS (08/14/23 3:12 AM) MRSA Surveillance, on Admission [MSND] MRSA NOT detected (08/14/23 10:54 AM) Anion Gap [5-14 mmol/L] 11 mmol/L (08/16/23 5:44 AM) 11 mmol/L (08/15/23 5:20 AM) 12 mmol/L (08/14/23 5:36 AM) Alb [3.5-5.2 g/dL] 2.8 g/dL *LOW* (08/16/23 5:44 AM) 2.7 g/dL *LOW* (08/15/23 5:20 AM) BUN [6-23 mg/dL] 53 mg/dL *HI* (08/16/23 5:44 AM) 56 mg/dL *HI* (08/15/23 5:20 AM) 57 mg/dL *HI* (08/14/23 5:36 AM) Ca [8.4-10.2 mg/dL] 8.4 mg/dL (08/16/23 5:44 AM) 8.5 mg/dL (08/15/23 5:20 AM) 8.5 mg/dL (08/14/23 5:36 AM) Cl- [98-107 mmol/L] 108 mmol/L *HI* (08/16/23 5:44 AM) 106 mmol/L (08/15/23 5:20 AM) 106 mmol/L (08/14/23 5:36 AM) HCO3 [22-29 mmol/L] 20 mmol/L *LOW* (08/16/23 5:44 AM) 20 mmol/L *LOW* (08/15/23 5:20 AM) 20 mmol/L *LOW* (08/14/23 5:36 AM) Cret [0.70-1.30 mg/dL] 1.76 mg/dL *HI* (08/16/23 5:44 AM) 1.85 mg/dL *HI* (08/15/23 5:20 AM) 1.67 mg/dL *HI* (08/14/23 5:36 AM) Iron [50-158 ug/dL] 29 ug/dL *LOW* (08/14/23 2:55 PM) Ferritin [30.0-400.0 ng/mL] 879.4 ng/mL *HI* (08/14/23 2:55 PM) Glu [74-109 mg/dL] 127 mg/dL 3 *HI* (08/16/23 5:44 AM) 160 mg/dL 4 *HI* (08/15/23 5:20 AM) 130 mg/dL 5 *HI* (08/14/23 5:36 AM) Gluc Meter [74-109 mg/dL] 245 mg/dL *HI* (08/16/23 4:32 PM) 204 mg/dL *HI* (08/16/23 12:12 PM) 154 mg/dL *HI* (08/16/23 9:38 AM) Hct [39-48 %] 24.8 % *LOW* (08/16/23 12:37 PM) 23.2 % *LOW* (08/16/23 5:44 AM) 24.1 % *LOW* (08/15/23 2:55 PM) Hgb [13.0-17.0 g/dL] 8.3 g/dL *LOW* (08/16/23 12:37 PM) 7.5 g/dL *LOW* (08/16/23 5:44 AM) 8.0 g/dL *LOW* (08/15/23 2:55 PM) INR [0.9-1.1] 2.7 6 *HI* (08/14/23 2:55 PM) PTH Intact [15.0-65.0 pg/mL] 60.1 pg/mL (08/14/23 8:33 AM) K [3.5-5.1 mmol/L] 3.9 mmol/L (08/16/23 5:44 AM) 3.9 mmol/L (08/15/23 5:20 AM) 3.5 mmol/L (08/14/23 5:36 AM) MCH [28-33 pg] 29.7 pg (08/16/23 12:37 PM) 28.6 pg (08/16/23 5:44 AM) 28.8 pg (08/15/23 2:55 PM) MCHC [32-36 g/dL] 33.5 g/dL (08/16/23 12:37 PM) 32.3 g/dL (08/16/23 5:44 AM) 33.2 g/dL (08/15/23 2:55 PM) MCV [81-96 fL] 88.9 fL (08/16/23 12:37 PM) 88.5 fL (08/16/23 5:44 AM) 86.7 fL (08/15/23 2:55 PM) Mg [1.6-2.6 mg/dL] 1.7 mg/dL (08/16/23 5:44 AM) 1.7 mg/dL (08/15/23 5:20 AM) 1.7 mg/dL (08/14/23 5:36 AM) Na [136-145 mmol/L] 139 mmol/L (08/16/23 5:44 AM) 137 mmol/L (08/15/23 5:20 AM) 138 mmol/L (08/14/23 5:36 AM) PO4 [2.5-4.5 mg/dL] 2.0 mg/dL *LOW* (08/16/23 5:44 AM) 2.4 mg/dL *LOW* (08/15/23 5:20 AM) 2.5 mg/dL (08/14/23 5:36 AM) Plts [150-350 K/uL] 186 K/uL (08/16/23 12:37 PM) 160 K/uL (08/16/23 5:44 AM) 177 K/uL (08/15/23 2:55 PM) PT [12.0-14.2 seconds] 28.6 seconds *HI* (08/14/23 2:55 PM) RBC [4.40-5.60 M/uL] 2.79 M/uL *LOW* (08/16/23 12:37 PM) 2.62 M/uL *LOW* (08/16/23 5:44 AM) 2.78 M/uL *LOW* (08/15/23 2:55 PM) Fe Sat [14-50 %] 13 % *LOW* (08/14/23 2:55 PM) Total IBC [250-400 ug/dL] 224 ug/dL *LOW* (08/14/23 2:55 PM) Transferrin [200-360 mg/dL] 190 mg/dL *LOW* (08/14/23 2:55 PM) WBC [4.0-10.4 K/uL] 7.48 K/uL (08/16/23 12:37 PM) 6.44 K/uL (08/16/23 5:44 AM) 7.19 K/uL (08/15/23 2:55 PM) 1Result Comment: Performed at: [facility], [address] [place] [address] [place] [address] 2Result Comment: NO BLUE RECEIVED 3Result Comment: ADA recommendation for FASTING Serum/Plasma Glucose: Normal: 70-100 mg/dL Prediabetes: 100-125 mg/dL Diabetes: 126 mg/dL or higher 4Result Comment: ADA recommendation for FASTING Serum/Plasma Glucose: Normal: 70-100 mg/dL Prediabetes: 100-125 mg/dL Diabetes: 126 mg/dL or higher 5Result Comment: ADA recommendation for FASTING Serum/Plasma Glucose: Normal: 70-100 mg/dL Prediabetes: 100-125 mg/dL Diabetes: 126 mg/dL or higher 6Result Comment: Suggested therapeutic range for low-intensity Coumadin therapy for venous thromboembolism is INR 2.0-3.0 (ex: atrial fibrillation, history of TIA/stroke). For high risk patients, the suggested therapeutic range is INR 2.5-3.5 (ex: mechanical prosthetic valves). Radiology Reports * Exam Date Time Procedure Performing Provider Status 08/16/23 12:24 PM VL Lower Ext Venous Duplex Bilateral R Marcia hoff; Final Notes: (VL Lower Ext Venous Duplex Bilateral) Reason For Exam: swelling VL Lower Ext Venous Duplex Bilateral [facility] FINAL REPORT Name: TRI YIP : 1955 Visit: [id number] Date: 16 Aug 2023 TYPE OF TEST: Peripheral Venous Testing REASON FOR TEST Swelling INTERPRETATION/FINDINGS SUBOPTIMAL EXAM due to vessel depth and swelling. Venous duplex exam of the bilateral lower extremities reveals: 1. No evidence of deep or superficial venous thrombosis identified in the right common femoral, proximal great saphenous, femoral, deep femoral, popliteal, and gastrocnemius veins. Could not visualize the posterior tibial and peroneal veins. 2. No evidence of deep or superficial venous thrombosis identified in the left common femoral, proximal great saphenous, deep femoral, popliteal, gastrocnemius or visualized segments of the femoral, posterior tibial and peroneal veins. No prior exam available for comparison. IMPRESSION/COMMENTS I have personally reviewed the data relevant to the interpretation of this study. TECHNOLOGIST: Marcia Vásquez Jonathan PHYSICIAN: Poornima Kendall M.D. Signed: 08/16/2023 12:27 PM Final Dictated by:MD Kendall Kristine L Dictated DT/TM:08/16/2023 12:27 Signed by:MD Kendall Kristine L Signed (Electronic Signature):08/16/2023 12:27 Transcribed by:DINORAH * Exam Date Time Procedure Performing Provider Status 08/14/23 3:[address] Lower Extremity Consult Lisa Pressley; Final Notes: (OO CT Lower Extremity Consult) Reason For Exam: CT of LE for cellulitis, calcinosis OO CT Lower Extremity Consult EXAMINATION: CT lower extremity performed at [facility] CLINICAL HISTORY: CT of LE for cellulitis, calcinosis COMPARISON: Radiographs from August 11, 2023 performed at outside institution in right ankle radiographs fromJanuary 30, 2023 TECHNIQUE: CT of both lower studies was performed without contrast at outside institution on 08/11/2023 FINDINGS: Bones: No fracture. No CT evidence of osteomyelitis. Degenerative changes of both knees, most pronounced in the patellofemoral compartment. Prominent peroneal tubercle: The hindfoot bilaterally. Distal Achilles enthesophytes and heterotopic ossification in the proximal plantar fascia on the right. Midfoot degenerative change in on the right with subcortical cystic changes. Soft tissues: Diffuse skin thickening in the right and left lower leg with extensive dystrophic calcifications inthe subcutaneous tissues. Prominent varices in the left calf. No abscess. No substantial knee jointeffusion. Diffuse atherosclerotic vascular calcification. IMPRESSION: Diffuse skin thickening with extensive dystrophic subcutaneous calcifications in both lower legs-differential for the etiology of these calcifications is broad and includes chronic venous insufficiency, renal failure, and dermatomyositis. No abscess. Lack of contrast limits evaluation for cellulitis. Workstation ID: [id number] Final Dictated by:MD Pappas Cristy N Dictated DT/TM:08/14/2023 5:15 Signed by:MD Pappas Cristy N Signed (Electronic Signature):08/14/2023 5:14 p Vital Signs Most recent to oldest [Reference Range]: 1 2 3 Height 182.88 cm (08/14/23 12:52 AM) Patient Weight 143.7 kg (08/14/23 12:52 AM) Body Mass Index 42.97 kg/m2 (08/14/23 12:52 AM) Temperature [36.5-37.9 DegC] 36.1 DegC *LOW* (08/16/23 12:15 PM) 36.1 DegC *LOW* (08/16/23 4:41 AM) 36.0 DegC *LOW* (08/15/23 7:59 PM) Heart Rate 74 bpm (08/16/23 12:15 PM) 72 bpm (08/16/23 4:41 AM) 71 bpm (08/15/23 7:59 PM) Respiratory Rate 20 br/min (08/16/23 12:15 PM) 18 br/min (08/16/23 4:41 AM) 18 br/min (08/15/23 9:45 PM) Blood Pressure 126/56mmHg (08/16/23 12:15 PM) 118/47mmHg (08/16/23 4:41 AM) 135/55mmHg (08/15/23 7:59 PM) Mean Blood Pressure 67 mmHg (08/16/23 4:41 AM) 79 mmHg (08/15/23 7:59 PM) 76 mmHg (08/15/23 12:18 PM) Cuff Pulse Pressure 70 mmHg (08/16/23 12:15 PM) 71 mmHg (08/16/23 4:41 AM) 80 mmHg (08/15/23 7:59 PM) BP Location # 1 Right Arm (08/16/23 12:15 PM) Right Arm (08/16/23 4:41 AM) Right Arm (08/15/23 7:59 PM) Social History Social History Type Response Smoking Status Never smoked cigaret bc Sex PRS Inpt Consult * MD Katerina, Guera Nelson: MODIFY MD Katerina, Guera Nelson: MODIFY, PERFORM Event Display: PRS Inpt Consult Authored Date: [id number] P[facility]GERY INPATIENT CONSULTATION REPORT Name: TRI YIP Patient Number: [id number] : 1955 Date of Service: 08/14/2023 REQUESTING SERVICE: Internal Medicine REASON FOR CONSULTATION: _ Bilateral lower extremity cellulitis and calcinosis History of Present Illness: _ 68-year-old male [facility] including CKD stage IV and type 2 diabetes, who presented as a transfer from [facility] with cellulitis of bilateral lower extremities and diffuse calcinosis on CT and x-ray. He has a history of chronic lower extremity wounds for which he receives regular wound care since after a trauma approximately 1 year ago. He does report a history of using Unaboot treatments for thelower extremities without much success. He also states he was unaware of a new R medial thigh tenderness and warmth until it was examined at the woundcare center. He was seen by wound care about 3 days ago and shortly after the dressing change felt that his lower extremity swelling was getting worse. He later developed constitutional symptoms as well, including headache, diarrhea and general malaise. He went to [facility] where he was treated with IV vancomycin and cefepime and was found to have calcinosis on x-ray and CT for which transfer was arranged. Pt is on coumadin for a prior diagnosis of DVT. Review Of Systems: _ A complete 14 point review of systems was completed and is negative excluding what is mentioned in the above HPI. Past Medical History: _ Per HPI Surgical History: _ per HPI Family History: _ DM Social History: _ Negative for Etoh, tobacco, ivdu. Allergies and Sensitivities: NKA Active Inpt Meds: amLODIPine 2.5 mg PO Daily aspirin 81 mg PO Daily atorvastatin 20 mg PO qhs carvedilol 6.25 mg PO bid cefepime 2,000 mg IV q8h vancomycin 2,000 mg IV q12h Active PRN Meds: acetaminophen (Tylenol) 1,000 mg PO q8h One Time Meds: None Active IV Meds: None Current Home Meds: (Last Updated 08/13 23:22) acetaminophen (Tylenol 500 mg oral tablet) 1,000 mg PO q8h allopurinol (allopurinol 300 mg oral tablet) 90 each, TAKE 1 TABLET BY MOUTH EVERY DAY Responsible Provider: JULIET GUNTER 08/13 23:19 allopurinol (allopurinol 100 mg oral tablet) 100 mg PO Daily (total 400 mg daily) amLODIPine (amLODIPine 2.5 mg oral tablet) 90 each, TAKE 1 TABLET BY MOUTH EVERY DAY IN THE MORNINGResponsible Provider: JULIET GUNTER 08/13 23:19 ascorbic acid (Vitamin C 25 mg oral tablet, chewable) 25 mg PO bid aspirin (Aspir 81 oral delayed release tablet) 81 mg PO Daily atorvastatin (atorvastatin 20 mg oral tablet) 20 mg PO qhs carvedilol (carvedilol 6.25 mg oral tablet) 6.25 mg PO bid chlorthalidone (chlorthalidone 25 mg oral tablet) 30 each, TAKE 1 TABLET BY MOUTH EVERY DAY IN THE MORNING Responsible Provider: JULIET GUNTER 08/13 23:19 dorzolamide-timolol ophthalmic (dorzolamide-timolol 2.23%-0.68% ophthalmic solution) 1 drop both eyes bid furosemide (Lasix 20 mg oral tablet) 60 mg PO Daily insulin glargine (Basaglar KwikPen 100 units/mL subcutaneous solution) 48 unit subQ Daily losartan (losartan 50 mg oral tablet) 50 mg PO Daily melatonin (Melatonin) 3 mg PO qhs metFORMIN (metFORMIN 500 mg oral tablet) 500 mg PO bid netarsudil ophthalmic (Rhopressa 0.02% ophthalmic solution) 1 drop right eye qPM omega-3 polyunsaturated fatty acids ([place]-3 350 mg oral capsule) semaglutide (Ozempic (1 mg dose) 4 mg/3 mL subQ pen) semaglutide (Ozempic (2 mg dose) 8 mg/3 mL subQ pen) 2 mg subQ q7days on Saturday sodium bicarbonate (sodium bicarbonate 650 mg oral tablet) 60 each, TAKE 2 TABLETS BY MOUTH FOUR TIMES A DAY (MORNING, NOON, EVENING & BEDTIME) Responsible Provider: JULIET GUNTER 08/13 23:22 torsemide (torsemide 20 mg oral tablet) 90 each, TAKE 1 TABLET BY MOUTH EVERY DAY IN THE MORNING Responsible Provider: JULIET GUNTER 08/13 23:21 warfarin (warfarin 5 mg oral tablet) TAKE 5 MG (1 TABLET)BY MOUTH DAILY OR DIRECTED BY ANTICOAGULATION CLINIC Vitals: Last Updated 08/14/23 06:50 Weights: Last Updated 08/14/23 00:52 Date Temp Pulse BP RR SpO2 FIO2 Date Wt(kg) Wt(lb) 08/14 06:50 36.1 81 133/63 18 99 08/14 00:52 143.7 316 08/13 23:22 36.3 82 120/57 18 98 RA 08/14 00:52 143.7 316 24 Hr Tmax: 36.3 at 08/13 23:22 Initial Wt: 08/14 143.7 kg 316 lb Physical Exam: General:NAD HEENT:normocephalic, atraumatic. Neck:trachea midline Heart:regular rate and rhythm. Chest: nonlabored breathing, symmetric chest rise Abdomen:soft, nontender, nondistended Extremity:warm and well perfused. Bilateral lower extremities with appreciable firmness/rigidity on exam consistent with calcinosis. Also with chronic appearing venous stasis wounds on distal calf and anterolateral legs, without active purulence or fluctuance. Wound images uploaded to [email or web address]. R medial thigh with appreciable erythema and warmth, significantly notable compared to the left. No appreciable wounds or active drainage from the thigh. Neuro:alert and orientedx3, no focal deficits appreciated Skin:no rashes or lesions except as described above Most Recent 24 Hour CBC/BMP Results CBC: on 08/14/2023 05:36 BMP: on 08/14/2023 05:36 8.2 138 106 57 7.6 152 130 24.3 3.5 20 1.67 Abs Neut = 6.4 Ca = 8.5 No Albumin, Pre-Albumin, or Transferrin labs found. Studies: Pending or Completed in the Last 24 Hours No studies found ASSESSMENT: _ 68M PMH CKD IV, DM2, and chronic BLE wounds 2/2 chronic lymphedema, with diffuse reactive calcinosis who presented with acute worsening of RLE edema found to have new R medial thigh warmth and edema c/w cellulitis. RECOMMENDATIONS: _ 1 ) _ No acute surgical intervention or debridement indicated for chronic wounds. Recommend daily dressing changes with ammonium lactate cream to intact areas of skin on the lower extremities, betadine paint to open wounds on the lower extremities and covered with plain aquacel. Light compression to bilateral lower extremities with Kerlix and Guru wrap's, wrapped from just above the toes to just below the knee 2 ) _ Defer management of R medial thigh cellulitis to primary team. 3 ) _ Recommend follow up with patient's prior woundcare service at discharge. Please page [phone] with any questions or concerns. Attending Attestation: I personally saw, examined,and evaluated the patient on the day of serviceand agree with the residents findings and plans as written. Electronic Signature on File Electronically Reviewed/Signed by: Shaw Singleton MD Author Signature Dt/Tm:08/14/2023 10:04 AM Resident Division of Vascular Surgery Electronically Reviewed/Signed by: Guera Borges MD Cosigner Signature Dt/Tm: 08/14/2023 02:58 PM Division of Plastic and Reconstructive Surgery .D/C Summary * MD Oswald Ritesh: MODIFY MD Oswald Ritesh: MODIFY Event Display: .D/C Summary Authored Date: [id number] [facility] For medical concerns, call: . Address: [address] [place] [id number] (HOME) [phone] (MOBILE) :1955 . Date of Admission:08/13/2023 Date of Discharge:08/16/2023 Physician:MD Oswald Ritesh Service:Internal Medicine Discharge Disposition:Home with self-care Primary Care Provider/Phone: DO IBRAHIM AMANDA MAE (BUSINESS) [phone] (FAX BUSINESS) Principal Diagnosis: Cellulitis of leg Other Diagnoses: Wound of lower extremity Anemia Anticoagulated on Coumadin Calciphylaxis GI bleed Major Tests and Procedures: (08/16/2023 12:24 EST VL Lower Ext Venous Duplex Bilateral) INTERPRETATION/FINDINGS SUBOPTIMAL EXAM due to vessel depth and swelling. Venous duplex exam of the bilateral lower extremities reveals: 1. No evidence of deep or superficial venous thrombosis identified in the right common femoral, proximal great saphenous, femoral, deep femoral, popliteal, and gastrocnemius veins. Could not visualize the posterior tibial and peroneal veins. 2. No evidence of deep or superficial venous thrombosis identified in the left common femoral, proximal great saphenous, deep femoral, popliteal, gastrocnemius or visualized segments of the femoral, posterior tibial and peroneal veins. No prior exam available for comparison. [1] (08/14/2023 15:[address] Lower Extremity Consult) IMPRESSION: Diffuse skin thickening with extensive dystrophic subcutaneous calcifications in both lower legs-differential for the etiology of these calcifications is broad and includes chronic venous insufficiency, renal failure, and dermatomyositis. No abscess. Lack of contrast limits evaluation for cellulitis. [2] Hospital Course: 68-year-old male PMH including CKD stage IV and type 2 diabetes, who presented as a transfer from [facility] with cellulitis of bilateral lower extremities and diffuse calcinosis on CT and x-ray of lower extremities. PRS consulted, no plan for OR, gave recommendations for wound care. Wound carewas consulted and had recommendations for wound caregoing forward. Pt wasgivenIV antibiotics withvancomycin/cefepime, eventually transitioned to IV cefazolin inpt and discharged with a PO course of cephalexinto continueuntil 1/10/24.Patient was also given hydrocortisone cream fora rash on his right thigh to apply forup to 7 days. Ptalso haddark stools, and one episode of coffee ground emesis prior to admission here,which were concerning for a GI bleed,in the context of warfarin use, and it also contributing tocalciphylaxis. He had a remote history of provoked DVT of RLE in 1980s following trauma for which he had been on warfarin. US of lower extremities was negative for clots, and after benefits/risks/indicationdiscussions with patient he agreed for it to be discontinued, unless furtherotherwise directed byPCP/Health Researcher. Patient was also given IV pantoprazole twice daily while inpatient and dischargedwith a course of PO pantoprazole to be continued. Patient's CBC's were followed and Hgbremained stable ~8not requiring transfusion. We also referred patient to GI for follow up for this suspectedGI bleed for EGD/colonoscopy as appropriate. Regarding patient's hypertension,patient'sblood pressures were controlledwith only amlodipine2.5 and carvedilol 6.25 twice daily. However, due toconcerns for amlodipine contributing toswelling and normotensive state, we opted to stop amlodipine and continue losartanat a lower dose of 12.5and carvedilolat home dose. Patient was educated on proper BP measuring techniques as he was having high readings at home only, but later learned he was squeezing the cuff to keep it up sinceit was loose on his arm. Regarding patient's diabetes, patient was continued on a sliding scale insulin, and only required 1to 2 units/day. Discussed with patient that this could be due to his diet at home being differentfromhis diet in the hospitalhowever, we discussed that soco has some dizziness at homecould be related to low blood sugars. Patient also reported some episodes of dizziness at home from ti me to time, advised patient to check his sugar if this happens again and keep a juice nearby as needed. Discussed with patient to take his blood sugars frequently, and continue on a lower dose of [id number] unitsgoing forward, loghis sugars, and adjustdose as necessary along withassistance of PCP. Patient also received 1 dose of epoetin judith of 40,000 units on 08/14/23, per his Health Researcher Dr. Fly Velazquez's schedule of Q2week injections. Patient was also given 3 doses of 300mg IV iron sucrose,completed on 08/16/23. For patient's CKD Stage 3a, patient's baseline creatinine seems to be above 1.5, was 1.76 on discharge. We also held chlorthalidone but continued torsemide on discharge. For patient's gout, allopurinol was held for possible ZAHRAA, however continued on discharge. Items for PCP Dr. Nancy Ibrahim to follow up: - Resolution of lower extremity infection, ongoing wound care - Need for ongoing anticoagulation use - Antihypertensives, response to adjusted dose on discharge from hospital - Insulin regimen and response to adjusted dose on discharge from hospital - GI follow up for EGD/colonoscopy - Assess need for chlorthalidone going forward. Exam on Discharge: Vitals & Measurements: T:36.1C TMIN:36.0C TMAX:36.1C HR:74(Monitored) RR:20 BP:126/56 SpO2:100% Oxygen Therapy:Room air BMI:42.97 kg/m2 General:NAD, alert and cooperative. Appears stated age and is well nourished. HEENT:EOMI, anicteric, conjunctiva without injection CV:RRR, S1 S2 present with no murmur, gallops, rubs. Lungs:CTA B/L with no wheezes, rales, rhonchi. No increased WOB. On RA. Abdomen:Soft, NTND. Normoactive BS MSK:no gross deformities noted, no clubbing/cyanosis. Wounds in BLE, wrapped, dorsum of ankles with multiple lesions. Neuro:No facial asymmetry at rest or with activation. No focal deficits. Psych:Appropriate and cooperative. Congruent affect with mood. Good insight and judgement. Skin:R thigh with redness noted above knee, within borders that were drawn, less tender to palpation, calves wrapped, no gordon redness. Discharge Medications: 1.Semaglutide (Ozempic (2 mg dose) 8 mg/3 mL subQ pen) 2 mg subcutaneously Every 7 days. on Saturday. 2.Dorzolamide-timolol ophthalmic (dorzolamide-timolol 2.23%-0.68% ophthalmic solution) 1 drop in both eyes 2 times daily. 3.Carvedilol (carvedilol 6.25 mg oral tablet) 6.25 mg (1 tab) by mouth 2 times daily. 4.MetFORMIN (metFORMIN 500 mg oral tablet) 500 mg (1 tab) by mouth 2 times daily. 5.Atorvastatin (atorvastatin 20 mg oral tablet) 20 mg (1 tab) by mouth at bedtime. 6.Allopurinol (allopurinol 100 mg oral tablet) 100 mg (1 tab) by mouth once daily. (total 400 mg daily). 7.Insulin glargine (Basaglar KwikPen 100 units/mL subcutaneous solution) 20 unit subcutaneously once daily. Can increase dose as needed, please follow your blood sugars.. 8.Netarsudil ophthalmic (Rhopressa 0.02% ophthalmic solution) 1 drop in right eye every evening. 9.Acetaminophen (Tylenol 500 mg oral tablet) 1,000 mg (2 tab) by mouth every 8 hours. 10.Melatonin (Melatonin) 3 mg (1 tab) by mouth at bedtime. 11.[place]-3 polyunsaturated fatty acids ([place]-3 350 mg oral capsule) . 12.Ascorbic acid (Vitamin C 25 mg oral tablet, chewable) 25 mg (1 tab) by mouth 2 times daily. 13.Allopurinol (allopurinol 300 mg oral tablet) . 90 each, TAKE 1 TABLET BY MOUTH EVERY DAY. 14.Semaglutide (Ozempic (1 mg dose) 4 mg/3 mL subQ pen) . 15.Torsemide (torsemide 20 mg oral tablet) . 90 each, TAKE 1 TABLET BY MOUTH EVERY DAY IN THE MORNING. 16.Sodium bicarbonate (sodium bicarbonate 650 mg oral tablet) . 60 each, TAKE 2 TABLETS BY MOUTH FOUR TIMES A DAY (MORNING, NOON, EVENING & BEDTIME). 17.Cephalexin (cephalexin 500 mg oral capsule) 500 mg (1 cap) by mouth 4 times daily. Take 1 tablet four times a day. 18.Hydrocortisone topical (hydrocortisone 0.5% topical cream) 1 appl topically 3 times daily. apply in a thin film to the affected skin and rub in gently and completely. Please use no more than 1 week from starting.. 19.Ammonium lactate topical (ammonium lactate 12% topical lotion) 1 appl topically 2 times daily. 20.Pantoprazole (pantoprazole 40 mg oral delayed release tablet) 40 mg (1 tab) by mouth once daily.Take 1 tablet emely. 21.Losartan (losartan 25 mg oral tablet) 12.5 mg (0.5 tab) by mouth once daily. 22.Aspirin (aspirin 81 mg oral tablet, chewable) 81 mg (1 tab) by mouth once daily. Allergies and Sensitivities: NKA Tests Pending: None Other Appointments: Follow Up DO Womack Amanda Mae Where: [address] [place] [address] will call you at home to set up initial appt. Provider or Location Time Frame Details about visit Gastroenterology 4-7 days Please call your provider to make an appointment. Discharge Services: Service: Organization: Business Address: Phone Number: [facility] Phys[facility] [address] [place], [address] Care Instructions: You were admitted to [facility] for treatment oflowerleg cellulitis. You were givenIV antibiotics and had an ultrasound done which did not show any concerns of clots. You were also given a one time dose ofepoeitin judith (ProCrit) of 40,000 units on 08/14/23. A discharge summary will be sent to your primary care physician to ensure continuity of care. Please bring this discharge summary with you to your next office appointment so that your provider canreview it at that time. Follow-up appointments: 1. Keep all your follow-up appointments as already scheduled. If you cannot make an appointment, notify your provider. 2. An appointment has been requested for you to follow up with your PCP within 1 week. Someone willcontact you with a date and time for an appointment. If you do not receive a phone call in 5 days, please call your PCP office and ask to be scheduled for a hospital discharge follow up appointment. Medications: - Your medication list has been reviewed and reconciled upon discharge to ensure accuracy and continuity of care. - You are provided with a list of all your current medications at this time. Please review closely and make note of any changes. - Please take all of your medications exactly as prescribed. - Tell your primary care provider if you cannot afford your medications. - Call your primary care provider if you are having any side effects or any other problems. - Call your primary care provider before taking any over the counter medications or supplements, including herbals and vitamins, because some of these may interact with your current medications and/or make your symptoms worse. It was our pleasure to care for you during your hospitalization. Wound care instructions: Recommend daily dressing changes with ammonium lactate cream to intact areas of skin on the lower extremities, betadine paint to open wounds on the lower extremities and covered with plain aquacel. Light compression to bilateral lower extremities with Kerlix and Guru wrap's, wrapped from just above the toes to just below the knee . Advance Directive:Health Care Power of Informatics Analyst I personally spent 50minutes in discharge planning. I evaluated the patient independently. I reviewed the pertinent labs and imaging studies as above and participated in the medical decision making for the patient. I agree with MDs documentation above, the findings and plan as written with appropriate corrections as needed. Abhijit Oswald MD Hospitalist, [facility] [1]VL Lower Ext Venous Duplex Bilateral; MD Faiza, Poornima Turner 08/16/2023 12:24 EST [2]OO CT Lower Extremity Consult; MD Mian, Jacqui N 08/14/2023 15:49 EST Electronic Signature on File Electronically Reviewed/Signed by: Alberto Ambriz DO, MS Author Signature Dt/Tm:08/16/2023 04:30 PM Resident Division of Internal Medicine Electronically Reviewed/Signed by: Abhijit Oswald MD Cosigner Signature Dt/Tm: 08/16/2023 06:33 PM Division of Internal Medicine - Hospitalist IAN Discharge instructions * DO Ambriz Raj: MODIFY, MODIFY, MODIFY, PERFORM, MODIFY, MODIFY, MODIFY Event Display: Patient Discharge Instructions Authored Date: [id number] TRI YIP :1955 Visit Date:08/13/2023 Patient Discharge Instructions [facility] For medical concerns, call: . Date of Admission:08/13/2023 Date of Discharge:08/16/2023 Physician:MD Oswald Ritesh Service:Internal Medicine Discharge Disposition:Home with home health . Advance Directive:Health Care Power of Informatics Analyst Reason for Hospitalization Cellulitis of leg Your Diagnoses Cellulitis of leg Wound of lower extremity Anemia Anticoagulated on Coumadin Calciphylaxis My Health Patient Portal: [employer] makes it easy for you to manage your health information online. My [facility] [employer] is a free service that provides you instant, secure access to your medical information anytime, anywhere. Sign in or set up your account today at [facility].[email or web address] Thank you for allowing us to assist you with your healthcare needs. If you need additional community resources, [employer] can help at https://www.pa211.org. 211 can assist you in connecting with social programs based on your unique needs and locations. 211 is an anonymous search that can help you locate resources for: Food, Housing, Transportation, Goods, Education and Healthcare. Medications Patient is enrolled in Rx-to-Go Program New medications will be delivered from [facility] to patient's room at discharge: Mon-Sun from 9AM-5 PM. Medications MUST be PICKED UP at [facility] if patient is discharged Mon-Sun after 5 PM or anytime on holidays. Please note, the [facility] Pharmacy closes at 8 PM on weekdays and 5:30 PM on Saturdays, Sundays, and holidays. What How Much When Instructions Next Dose New ammonium lactate topical (ammonium lactate 12% topical lotion) 1 montez topically 2 times daily New cephalexin (cephalexin 500 mg oral capsule) 1 cap by mouth 4 times daily Duration: 5 Days Take 1 tablet four times a day Pickup at [facility]/pharmacy #[id number] New hydrocortisone topical (hydrocortisone 0.5% topical cream) 1 montez topically 3 times daily Duration: 7 Days apply in a thin film to the affected skin and rub in gently and completely. Please use no more than 1 week from starting. Pickup at [facility]/pharmacy #[id number] New pantoprazole (pantoprazole 40 mg oral delayed release tablet) 1 tab(s) by mouth Once daily Take 1 tablet emely Pickup at [facility]/pharmacy #[id number] New sodium bicarbonate (sodium bicarbonate 650 mg oral tablet) 60 each, TAKE 2 TABLETS BY MOUTH FOUR TIMES A DAY (MORNING, NOON, EVENING & BEDTIME) New torsemide (torsemide 20 mg oral tablet) 90 each, TAKE 1 TABLET BY MOUTH EVERY DAY IN THE MORNING Changed allopurinol (allopurinol 100 mg oral tablet) 1 tab(s) by mouth Once daily (total 400 mg daily) Changed allopurinol (allopurinol 300 mg oral tablet) 90 each, TAKE 1 TABLET BY MOUTH EVERY DAY Changed aspirin (aspirin 81 mg oral tablet, chewable) 1 tab(s) by mouth Once daily Continue as directed by Human Performance Professor Changed insulin glargine (Basaglar KwikPen 100 units/ mL subcutaneous solution) 20 unit(s) subcutaneously Once daily Can increase dose as needed, please follow your blood sugars. Changed losartan (losartan 25 mg oral tablet) 0.5 tab(s) by mouth Once daily Duration: 30 Days Pickup at [facility]/pharmacy #[id number] Changed semaglutide (Ozempic (1 mg dose) 4 mg/ 3 mL subQ pen) Changed semaglutide (Ozempic (2 mg dose) 8 mg/ 3 mL subQ pen) 2 Milligram subcutaneously Every 7 days As directed Unchanged acetaminophen (Tylenol 500 mg oral tablet) 2 tab(s) by mouth Every 8 hours Unchanged ascorbic acid (Vitamin C 25 mg oral tablet, chewable) 1 tab(s) by mouth 2 times daily Unchanged atorvastatin (atorvastatin 20 mg oral tablet) 1 tab(s) by mouth At bedtime Unchanged carvedilol (carvedilol 6.25 mg oral tablet) 1 tab(s) by mouth 2 times daily Unchanged dorzolamide-timolol ophthalmic (dorzolamide-timolol 2.23%-0.68% ophthalmic solution) 1 Drops in both eyes 2 times daily Unchanged melatonin (Melatonin) 3 Milligram by mouth At bedtime Unchanged metFORMIN (metFORMIN 500 mg oral tablet) 1 tab(s) by mouth 2 times daily Unchanged netarsudil ophthalmic (Rhopressa 0.02% ophthalmic solution) 1 Drops in right eye Every evening Unchanged omega-3 polyunsaturated fatty acids ([place]-3 350 mg oral capsule) Pharmacy Information [facility]/pharmacy #[id number]: [address], [place] [phone] What How Much When Comments Stop Taking amLODIPine (amLODIPine 2.5 mg oral tablet) 90 each, TAKE 1 TABLET BY MOUTH EVERY DAY IN THE MORNING Stop Taking furosemide (Lasix 20 mg oral tablet) 3 tab(s) by mouth Once daily Stop Taking warfarin (warfarin 5 mg oral tablet) TAKE 5 MG (1 TABLET)BY MOUTH DAILY OR DIRECTED BY ANTICOAGULATION CLINIC Stop taking chlorthalidone. Allergies NKA What to do next Instructions From Your Doctor You were admitted to [facility] for treatment oflowerleg cellulitis. You were givenIV antibiotics and had an ultrasound done which did not show any concerns of clots. You were also given a one time dose ofepoeitin judith (ProCrit) of 40,000 units on 08/14/23. A discharge summary will be sent to your primary care physician to ensure continuity of care. Please bring this discharge summary with you to your next office appointment so that your provider canreview it at that time. Follow-up appointments: 1. Keep all your follow-up appointments as already scheduled. If you cannot make an appointment, notify your provider. 2. An appointment has been requested for you to follow up with your PCP within 1 week. Someone willcontact you with a date and time for an appointment. If you do not receive a phone call in 5 days, please call your PCP office and ask to be scheduled for a hospital discharge follow up appointment. Medications: - Your medication list has been reviewed and reconciled upon discharge to ensure accuracy and continuity of care. - You are provided with a list of all your current medications at this time. Please review closely and make note of any changes. - Please take all of your medications exactly as prescribed. - Tell your primary care provider if you cannot afford your medications. - Call your primary care provider if you are having any side effects or any other problems. - Call your primary care provider before taking any over the counter medications or supplements, including herbals and vitamins, because some of these may interact with your current medications and/or make your symptoms worse. It was our pleasure to care for you during your hospitalization. Wound care instructions: Recommend daily dressing changes with ammonium lactate cream to intact areas of skin on the lower extremities, betadine paint to open wounds on the lower extremities and covered with plain aquacel. Light compression to bilateral lower extremities with Kerlix and Guru wrap's, wrapped from just above the toes to just below the knee You were offered a Hepatitis C screening test and you declined. Please follow up with your PCP. If you notice the following symptoms Please call your primary care provider for symptoms including, but not limited to: fevers (temperatures >100.4 degrees F or 38.1 degrees C), chills, intractable nausea or vomiting, diarrhea, rash,shortness of breath, bleeding, pain, or if you experience any worsening of the symptoms that brought you to the hospital. ForEMERGENCYandVERY SERIOUShealth-related issues, such as chest pain, shortness of breath, or sudden onset of the symptoms that brought you to the hospital, you may need to [id number] go directly to theEmergency Room. Contact our Careline at . If unable to contact your physician and you feel it is an emergency, go to the nearest Emergency Room or call 911 Diet Instructions Please eat a regular and healthy diabetic friendly diet as you can tolerate. This includes a diet rich in vegetables and fruits, whole grains, high fiber foods, lean meat and poultry, fish, and fat-free or 1% dairy products. Your diet should be low in sugars, carbohydrates, saturated fat, trans fat, and cholesterol. Try to avoid processed foods as much as possible. It is important that you drink approximately 2 liters of water a day to keep hydrated, but not fluid overloaded Activity Instructions You may resume your previous home activities, but go slowly and pace yourself as tolerated. Always take fall precautions, and ask for assistance as you regain your strength, coordination, and endurance. Follow-Up Appointments You Need to Schedule the Following Appointments Follow Up DO Womack Amanda Mae Where: [address] [place] [phone] will [facility] you at home to set up initial appt. The Following Services Have Been Arranged for You Service: Organization: Business Address: Phone Number: [facility] [address] [place], [address] Test Results (08/16/2023 12:24 EST VL Lower Ext Venous Duplex Bilateral) INTERPRETATION/FINDINGS SUBOPTIMAL EXAM due to vessel depth and swelling. Venous duplex exam of the bilateral lower extremities reveals: 1. No evidence of deep or superficial venous thrombosis identified in the right common femoral, proximal great saphenous, femoral, deep femoral, popliteal, and gastrocnemius veins. Could not visualize the posterior tibial and peroneal veins. 2. No evidence of deep or superficial venous thrombosis identified in the left common femoral, proximal great saphenous, deep femoral, popliteal, gastrocnemius or visualized segments of the femoral, posterior tibial and peroneal veins. [1] (08/14/2023 15:[address] Lower Extremity Consult) IMPRESSION: Diffuse skin thickening with extensive dystrophic subcutaneous calcifications in both lower legs-differential for the etiology of these calcifications is broad and includes chronic venous insufficiency, renal failure, and dermatomyositis. No abscess. Lack of contrast limits evaluation for cellulitis. [2] Tests Pending None Special Instructions Common Emergency Awareness Tips Call 911 immediately if: experiencing any of the warning signs and symptoms of stroke: B.E. F.A.S.T. Balance: is there trouble with walking or coordination Eyes: is there double vision or visual loss Face: Smile, do both sides of face move equally Arm: Raise arms, do both arms move equally Speech: Is speech slurred or inappropriate Time: Time is critical, call 911 immediately Heart Attack Signs Chest discomfort: Most heart attacks involve discomfort in the center of the chest and lasts more than a few minutes, or goes away and comes back. It can feel like uncomfortable pressure, squeezing, fullness or pain. Discomfort in upper body: Symptoms can include pain or discomfort in one or both arms, back, neck, jaw or stomach. Shortness of breath: With or without discomfort. Other signs: Breaking out in a cold sweat, nausea, or lightheaded. Remember, MINUTES DO MATTER. If you experience any of these heart attack warning signs, call --1 to get immediate medical attention! Education Materials Anemia Anemia is a condition in which there are not enough red blood cells or hemoglobin in the blood. Hemoglobin is a substance in red blood cells that carries oxygen. When you do not have enough red blood cells or hemoglobin (are anemic), your body cannot get enoughoxygen, and your organs may not work properly. As a result, you may feel very tired or have other problems. What are the causes? Common causes of anemia include: Excessive bleeding. Anemia can be caused by excessive bleeding inside or outside the body, including bleeding from the intestines or from heavy menstrual periods in females. Poor nutrition. Long-lasting (chronic) kidney, thyroid, and liver disease. Bone marrow disorders, spleen problems, and blood disorders. Cancer and treatments for cancer. Human immunodeficiency virus (HIV) and acquired immunodeficiency syndrome (AIDS). Infections, medicines, and autoimmune disorders that destroy red blood cells. What are the signs or symptoms? Symptoms of this condition include: Minor weakness. Dizziness. Headache, or difficulties concentrating and sleeping. Heartbeats that feel irregular or faster than normal (palpitations). Shortness of breath, especially with exercise. Pale skin, lips, and nails, or cold hands and feet. Upset stomach (indigestion) and nausea. Symptoms may occur suddenly or develop slowly. If your anemia is mild, you may not have symptoms. How is this diagnosed? This condition is diagnosed based on blood tests, your medical history, and a physical exam. In some cases, a test may be needed in which cells are removed from the soft tissue inside of a bone and looked at under a microscope (bone marrow biopsy). Your health care provider may also check your stool (feces) for blood and may do more testing to look for the cause of your bleeding. Other tests may include: Imaging tests, such as a CT scan or MRI. A procedure to see inside your esophagus and stomach (endoscopy). The esophagus is the part of the body that moves food from your mouth to your stomach. A procedure to see inside your colon and rectum (colonoscopy). How is this treated? Treatment for this condition depends on the cause. If you continue to lose a lot of blood, you may need to be treated at a hospital. Treatment may include: Taking supplements of iron, vitamin B12, or folic acid. Taking a hormone medicine (erythropoietin) that can help to stimulate red blood cell growth. Receiving donated blood through an IV (blood transfusion). This may be needed if you lose a lot of blood. Making changes to your diet. Having surgery to remove your spleen. Follow these instructions at home: Take kiwd-eaq-sxqswnz and prescription medicines only as told by your health care provider. Take supplements only as told by your health care provider. Follow any diet instructions that you were given by your health care provider. Keep all follow-up visits. Your health care provider will want to recheck your blood tests. Contact a health care provider if: You develop new bleeding anywhere in the body. You are very weak. Get help right away if: You are short of breath. You have pain in your abdomen or chest. You are dizzy or feel faint. You have trouble concentrating. You have bloody stools, black stools, or tarry stools. You vomit repeatedly or you vomit up blood. These symptoms may be an emergency. Get help right away. Call 911. Do not wait to see if the symptoms will go away. Do not drive yourself to the hospital. Summary Anemia is a condition in which you do not have enough red blood cells or enough of a substance in your red blood cells that carries oxygen. Symptoms may occur suddenly or develop slowly. If your anemia is mild, you may not have symptoms. This condition is diagnosed with blood tests, a medical history, and a physical exam. Other tests may be needed. Treatment for this condition depends on the cause of the anemia. This information is not intended to replace advice given to you by your health care provider. Make sure you discuss any questions you have with your health care provider. Document Revised: 10/22/2022 Document Reviewed: 10/22/2022 [employer] Patient Education 2022 [employer]. Cellulitis, Adult Cellulitis is a skin infection. The infected area is often warm, red, swollen, and sore. It occurs most often in the arms and lower legs. It is very important to get treated for this condition. What are the causes? This condition is caused by bacteria. The bacteria enter through a break in the skin, such as a cut, burn, insect bite, open sore, or crack. What increases the risk? This condition is more likely to occur in people who: Have a weak body defense system (immune system). Have open cuts, clinton, bites, or scrapes on the skin. Are older than 60 years of age. Have a blood sugar problem (diabetes). Have a long-lasting (chronic) liver disease (cirrhosis) or kidney disease. Are very overweight (obese). Have a skin problem, such as: Itchy rash (eczema). Slow movement of blood in the veins (venous stasis). Fluid buildup below the skin (edema). Have been treated with high-energy rays (radiation). Use IV drugs. What are the signs or symptoms? Symptoms of this condition include: Skin that is: Red. Streaking. Spotting. Swollen. Sore or painful when you touch it. Warm. A fever. Chills. Blisters. How is this diagnosed? This condition is diagnosed based on: Medical history. Physical exam. Blood tests. Imaging tests. How is this treated? Treatment for this condition may include: Medicines to treat infections or allergies. Home care, such as: Rest. Placing cold or warm cloths (compresses) on the skin. Hospital care, if the condition is very bad. Follow these instructions at home: Medicines Take tcgt-hqi-iwmevet and prescription medicines only as told by your doctor. If you were prescribed an antibiotic medicine, take it as told by your doctor. Do not stop taking it even if you start to feel better. General instructions Drink enough fluid to keep your pee (urine) pale yellow. Do not touch or rub the infected area. Raise (elevate) the infected area above the level of your heart while you are sitting or lying down. Place cold or warm cloths on the area as told by your doctor. Keep all follow-up visits as told by your doctor. This is important. Contact a doctor if: You have a fever. You do not start to get better after 12 days of treatment. Your bone or joint under the infected area starts to hurt after the skin has healed. Your infection comes back. This can happen in the same area or another area. You have a swollen bump in the area. You have new symptoms. You feel ill and have muscle aches and pains. Get help right away if: Your symptoms get worse. You feel very sleepy. You throw up (vomit) or have watery poop (diarrhea) for a long time. You see red streaks coming from the area. Your red area gets larger. Your red area turns dark in color. These symptoms may represent a serious problem that is an emergency. Do not wait to see if the symptoms will go away. Get medical help right away. Call your local emergency services (911 in the [place] Do not drive yourself to the hospital. Summary Cellulitis is a skin infection. The area is often warm, red, swollen, and sore. This condition is treated with medicines, rest, and cold and warm cloths. Take all medicines only as told by your doctor. Tell your doctor if symptoms do not start to get better after 12 days of treatment. This information is not intended to replace advice given to you by your health care provider. Make sure you discuss any questions you have with your health care provider. Document Revised: 05/10/2022 Document Reviewed: 05/10/2022 Elsevier Patient Education 2022 [email or web address]. [1]VL Lower Ext Venous Duplex Bilateral; MD Faiza, Poornima Turner 08/16/2023 12:24 EST [2]OO CT Lower Extremity Consult; MD Mian, Jacqui Crawford 08/14/2023 15:49 EST Patient Care team information Care Team Personnel Name: JUJU Caldwell Ashley Position: Physician Typecasting Machine Operator - Neurosurgery Member Role: Lifetime Relationship Address: Address: [address] [place] [id number] [place] Name: DO Ibrahim Amanda Mae Position: Referring DIRECT Member Role: Primary Care Provider Address: Address: [address] [place] [id number] Name: Quintin Tavera Kyle Position: Pharmacist Member Role: Pharmacy - Lifetime Address: Address: [address] [place] [id number] Care Team Related Persons Name: LISA YIP Address: home [address] [place], [place] [id number]
--- OUTSIDE RECORDS SUMMARY | 2023-11-13 21:36 | External Medical Summary | Summary of Care ---
Author Name Unknown Organization [facility] Address [address] [place] [address] Phone [phone] Care Team Providers Care [employer] Name Role Phone Marlon Ibrahim DO Primary Care Provider Reason for Visit * Reason Onset Date Comments Medication Refill 08/14/2023 Encounter Details Date Type Department Care Team (Late st Contact Info) Description 08/14/2023 Refill Family Medicine [address] [phone] Marlon Ibrahim DO [address] [place] [address] [place] [address] Dyslipidemia, goal LDL below 70 Allergies No known active allergiesdocumented as of this encounter (statuses as of 08/15/2023) Medications Medication Sig Dispensed Refills Start Date End Date Status MULTIPLE VITAMIN PO TABS 1 TABLET DAILY 0 1 Active OMEGA-3 FISH OIL 1000 MG PO CAPS Take one capsule by mouth daily 0 1 Active Blood Glucose Monitoring Suppl (Channel IQ ULTRA SYSTEM) W/DEVICE KITIndications:DM type 2, goal [...] with long-term current use of insulin ([facility]),Type 2 diabetes mellitus with hemoglobin A1c goal of less than 7.0% ([facility]) Use once a day [...] of DVT (deep vein thrombosis),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 management encounter,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 0 3 Active Epoetin Gautam-epbx 81326 UNIT/ML Injection Solution (Retacrit) Inject 2 mL [...] THE MORNING 90 Tablet 3 4 Active Atorvastatin Calcium 20 MG Oral Tablet (Lipitor)Indicatio ns:Dyslipidemia, goal LDL below 70 TAKE 1 TABLET BY MOUTH EVERY DAY IN THE MORNING 90 Tablet 0 3 08/14/19 24 Discontinu ed(Refill) Hospital, Clinic, or Other Facility Administered Medication [...] as of this encounter (statuses as of 08/15/2023) Active Problems Problem Noted Date Diagnosed Date [...] Overview: Non-obstructive. Noted on CT scan at [facility] 05/2019 Mild nonproliferative diabet ic retinopathy of [...] as of this encounter (statuses as of 08/15/2023) Resolved Problems Problem Noted Date Diagnosed Date [...] as of this encounter (statuses as of 08/15/2023) Immunizations Name Administration Dates Next Due COVID-19 mRNA, LNP-s, No Pre serve, 2-Dose Series (Pfizer) 06/20/2021,10/22/2020,09/26/2020 COVID-19, LNP-s, No Preserve , Jamie-sucrose, Ages 12+ (Pfizer) 03/13/2022 Covid-19, Mrna, Lnp-s, Pf, B ivalent, 30 Mcg, IM, 12 yrs and above (Pfizer) 09/20/2022 Pneumococcal Conjugate Vacci ne, 20-valent ([id number]) 03/14/2022 Pneumococcal Polysaccharide PPV23 (Pneumovax) 03/19/2006 Seasonal [...] Telephone Encounter - Marlon Ibrahim DO - 08/15/2023 12:48 PM ESTSigned Prescriptions: Disp Refills Atorvastatin Calcium 20 MG Oral Tablet (Li*90 Tab*3 Sig: TAKE 1 TABLET BY MOUTH EVERY DAY IN THE MORNING Authorizing Provider: MARLON IBRAHIM * Telephone Encounter - Naga Nath LPN - 08/15/2023 11:05 AM ESTPending Prescriptions: Disp Refills Atorvastatin Calcium 20 MG Oral Tablet (Li*90 Tab*0 Sig: TAKE 1 TABLET BY MOUTH EVERY DAY IN THE MORNING * Telephone Encounter - Naga Nath LPN - 08/15/2023 11:04 AM EST Pending Prescriptions: Disp Refills Atorvastatin Calcium 20 MG Oral Tablet (L*90 Tab*0 Sig: TAKE 1 TABLET BY MOUTH EVERY DAY IN THE MORNING Last Visit: 03/19/2023 (in office), Visit date not found (telemedicine) Next Visit: 09/20/2023 Last date the medication was ordered: 05/09/2023 Patient Active Problem List Diagnosis Code SPENCER (obstructive 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 Z79.01 Type 2 diabetes mellitus with diabetic neuropathy, with long-term current use of insulin (HCC) E11.40, Z79.4 Gout of wrist M10.9 Venous insufficiency I87.2 Vitamin B12 deficiency E53.8 Dyslipidemia, goal LDL below 100 E78.5 Venous stasis dermatitis of both lower extremities I87.2 DM neuropathy, type II diabetes mellitus ([facility]) E11.40 History of DVT (deep vein thrombosis) Z86.718 Venous stasis ulcer of calf ([facility]) I83.002, L97.209 H/O amputation of lesser toe, unspecified laterality ([facility]) Z89.429 HTN, goal below 130/80 I10 Iron deficiency anemia due to chronic blood loss D50.0 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 associated with type 2diabetes mellitus ([facility]) E11.3292 Hyperkalemia E87.5 Renal calculi N20.0 Non-pressure chronic ulcer of unspecified part of left lower leg with unspecified severity ([facility]) L97.929 Varicose veins of right lower extremity with ulcer other part of lower leg (CODE) ([facility]) I83.018 Stage 3a chronic kidney disease N18.31 Morbid obesity with BMI of 45.0-49.9, adult ([facility]) E66.01, Z68.42 Non-pressure chronic ulcer of unspecified part of right lower leg with unspecified severity ([facility]) L97.919 Acute gout due to renal impairment involving right wrist M10.331 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 Carpal tunnel syndrome of right wrist G56.01 Chronic right-sided heart failure ([facility]) I50.812 Other specified peripheral vascular diseases ([facility]) I73.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, multiple sites, without tophus (tophi) M1A.39X0 Tubular adenoma D36.9 History of adenomatous polyp of colon Z86.010 Non-pressure chronic ulcer of lower leg, limited to breakdown of skin ([facility]) L97.901 Chronic venous hypertension (idiopathic) with ulcer of bilateral lower extremity (CODE) ([facility]) I87.313 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 ([facility]) E11.3593 Anemia due to stage 3a chronic kidney disease N18.31, D63.1 Labs: Lab Results Component Value Date/Time CREATININE (GRL) 0.9 11/12/1997 03:15 PM CREATININE - [facility] 2.3 (H) 07/29/2023 09:15 AM CREATININE - [facility] 1.3 (H) 09/05/2020 10:48 AM CREATININE, RANDOM URINE - [facility] 123 02/19/2023 10:35 AM CREATININE, RANDOM URINE - [facility] 85 09/05/2020 10:48 AM CREATININE-[facility] 1.60 (A) 03/05/2017 12:00 AM Lab Results Component Value Date/Time POTASSIUM - [facility] 4.3 07/29/2023 09:15 AM POTASSIUM - [facility] 5.2 (H) 09/05/2020 10:48 AM POTASSIUM-[facility] 4.3 03/05/2017 12:00 AM Lab Results Component Value Date/Time TSH - [facility] 3.28 03/19/2023 10:09 AM TSH - [facility] 2.15 08/09/2020 01:46 PM Lab Results Component Value Date/Time LDL CHOLESTEROL (CALCULATED) - [facility] UNINTERPRETABLE RESULT 08/13/2018 02:38 PM LDL CHOLESTEROL (CALCULATED) - [facility] 58 04/19/2017 08:36 AM LDL CHOLESTEROL (DIRECT MEASURE) - [facility] 52 02/10/2023 05:25 AM LDL CHOLESTEROL (DIRECT MEASURE) - [facility] 57 03/14/2022 10:48 AM LDL CHOLESTEROL (DIRECT MEASURE) - [facility] 63 08/09/2020 01:46 PM LDL CHOLESTEROL (DIRECT MEASURE) - [facility] 51 08/02/2020 09:46 AM LDL CHOLESTEROL (DIRECT MEASURE) - [facility] 113 (H) 06/10/2009 07:22 AM LDL CHOLESTEROL (DIRECT MEASURE) - [facility] 124 (H) 12/16/2006 08:11 AM Lab Results Component Value Date/Time ALT - [facility] 29 07/15/2023 09:22 AM ALT - [facility] 27 08/09/2020 01:46 PM Hemoglobin AIC Results: Lab Results Component Value Date/Time HEMOGLOBIN A1C - [facility] 6.2 (H) 07/15/2023 09:22 AM HEMOGLOBIN A1C - [facility] 6.5 (H) 03/19/2023 10:09 AM HEMOGLOBIN A1C - [facility] 6.7 (H) 09/18/2022 10:38 AM HEMOGLOBIN A1C - [facility] 7.5 (H) 08/02/2020 09:46 AM HEMOGLOBIN A1C - [facility] 8.5 (H) 01/29/2020 12:36 PM HEMOGLOBIN A1C - [facility] 9.1 (H) 06/03/2019 10:01 AM * Telephone Encounter - KatelynKristi fountain, SPENCER - 08/14/2023 8:50 AM EST Did you pend patient's preferred pharmacy and medication before forwarding?yes Pharmacy: [id number] [id number] Pending Prescriptions: Disp Refills Atorvastatin Calcium 20 MG Oral Tablet (L*90 Tab*0 Sig: TAKE 1 TABLET BY MOUTH EVERY DAY IN THE MORNING Last Visit: 03/19/2023 (in office), Visit date not found (telemedicine) Next Visit: 09/20/2023 If no future appointments scheduled, and last appointment is greater than a year ago, please schedule patient for a follow-up appointment Last date the medication was ordered: 05/09/23 Is this request for a controlled substance?No Urine Drug Screen:No results found. However, due to the size of the patient record, not all encounters were searched. Please check Results Review for a complete set of results. Patient Phone Numbers Labs: Lab Results Component Value Date/Time CREAT 2.3 (H) 07/29/2023 09:15 AM CREAT 1.3 (H) 09/05/2020 10:48 AM POTASSIUM 4.3 07/29/2023 09:15 AM POTASSIUM 5.2 (H) 09/05/2020 10:48 AM TSH 3.28 03/19/2023 10:09 AM TSH 2.15 08/09/2020 01:46 PM LDLCALC UNINTERPRETABLE RESULT 08/13/2018 02:38 PM LDLDIRECT 52 02/10/2023 05:25 AM LDLDIRECT 63 08/09/2020 01:46 PM LDLDIRECT 113 (H) 06/10/2009 07:22 AM ALT 29 07/15/2023 09:22 AM ALT 27 08/09/2020 01:46 PM HGBA1C 6.2 (H) 07/15/2023 09:22 AM HGBA1C 7.5 (H) 08/02/2020 09:46 AM documented in this encounter Plan of Treatment Upcoming Encounters Date Type Department Care Team (Late st Contact Info) Description 08/19/2023 5:10 PM EST 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 Pharmacy, [address] [place] [address] [place] [address] 09/02/2023 1:00 PM EST [facility] [address] [place] [address] Mika Diaz DO [facility] [address] [place] [address] 09/20/2023 8:50 AM EST Office Visit Family Medicine [address] [place] [phone] [place] [address] 10/01/2023 9:00 AM EST Office Visit Cardiology [address] [place] [address] Prabhakar Henning PA-C [address] [place] [address] 10/15/2023 1:45 PM EST Office Visit Hematology/Oncology [facility] [place] [address] [place] [address] Fly Velazquez MD [address] [place] [address] 10/23/2023 10:00 AM EDT Office Visit [facility] [place] [address] [place] [phone] Dorothy Toscano, JALEEL [address] [place] [address] 12/25/2023 2:00 PM EDT Office Visit Nephrology, [place] [facility] [place] [address] Zemaitis, Beckie Tucker PA-C [address] [facility] [place] [address] Scheduled Procedures Name Priority Associated Diagnoses Date/Ti [...] Additional history exists CKD PHOS USE SMARTSET 56845 09/18/20230 02/2023, 08/29/2021, 08/02/2020, Additional history exists Diabetic Eye Exam 10/09/2023 10/09/2022, , 06/12/2022, Additional history exists HbA1c 01/14/2024 07/15/2023, 0803/2023, 09/18/2022, Additional history exists GFR 01/28/2024 07/29/2023, 1211/2022, 06/17/2023, Additional history exists Albumin/Creatinine Ratio 02/20/2024 023, 03/14/2022, 05/19/2021, Additional history exists CKD HGB USE SMARTSET 63685 07/29/202407/29, 07/29/2023, 07/15/2023, Additional history exists COLONOSCOPY-EVERY [...] this encounter Medical Devices Implanted Type Area Picking Tech Device Identifier Shelf Expiration Date Model / Serial / Lot Envista Hydrophobic Acrylic Intraocular Lens Implanted:Qty: 1 on 12/25/2016 by Raul Neely MD at OR [facility] Right: Eye [employer] 11/09/2018 [id number] / [id number] / [id number] Envista Mx60 +10.0 D Implanted:Qty: 1 on 01/29/2017 by Raul Neely MD at OR [facility] Left: Eye 11/09/2018 [id number] / [id number] / [id number] documented as of this encounter Visit Diagnoses Diagnosis Dyslipidemia, goal LDL below 70 Other and unspecified hyperlipidemia documented in this encounter Advance Directives Latest [...] and were consensually agreed upon. Care Teams [employer] Relationship Specialty Start Date End Date Marlon Ibrahim DO [address] [place] [address] [place] [address] PCP - General Internal Medicine 09/11/18 documented as of this encounter
--- OUTSIDE RECORDS SUMMARY | 2023-11-13 21:36 | External Medical Summary | Summary of Care ---
Author Name Unknown Organization [facility] Address [address] [place] [address] Phone [phone] Care Team Providers Care Stereo Equipment Repairer Name Role Phone Nancy Ryan DO Primary Care Provider Reason for Visit * Reason Comments Dosage Adjustment Via Phone (anticoag Cl inic) Hospital Follow-Up Encounter Details Date Type Department Care Team (Latest Contact Info) Description 08/14/2023 5:10 PM EST 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 Pharmacy, [address] [place] [address] [place] [address] History of DVT (deep vein thrombosis)* Allergies No known active allergiesdocumented as of this encounter (statuses as of 08/14/2023) Medications Medication Sig Dispensed Refills Start Date End Date Status MULTIPLE VITAMIN PO TABS 1 TABLET DAILY 0 07/03/2011 Active OMEGA-3 FISH OIL 1000 MG PO CAPS Take one capsule by mouth daily 0 07/03/2011 Active Blood Glucose Monitoring Suppl (Trainfox ULTRA SYSTEM) W/DEVICE KITIndications:DM type 2, goal [...] long-term current use of insulin ([facility]),Type 2 diabetes mellitus with hemoglobin A1c goal of less than 7.0% ([facility]) Use once a day with basaglar. DX e11.9 100 Each 3 10/17/2021 Active Rhopressa 0.02 % Ophthalmic Solution Instill 1 Drop into the left eye at bedtime. 0 05/17/2022 Active Vitamin C 1000 MG Oral Tablet Take 1 Tablet by mouth in the morning. 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 DX E11.9 Diabetes Mellitus 3 mL 5 03/26/2023 Active Atorvastatin Calcium 20 MG Oral Tablet (Lipitor)Indicatio ns:Dyslipidemia, goal LDL below 70 TAKE 1 TABLET BY MOUTH EVERY DAY IN THE MORNING 90 Tablet 0 05/09/2023 Active Allopurinol 100 MG Oral Tablet (Zyloprim)Indicati [...] the morning. 0 06/04/2023 Active Epoetin Gautam-epbx 97206 UNIT/ML Injection Solution (Retacrit) Inject 2 mL [...] the morning. 90 Tablet 3 08/08/2023 Active Hospital, Clinic, or Other Facility Administered [...] as of this encounter (statuses as of 08/14/2023) Active Problems Problem Noted Date Diagnosed Date [...] Non-obstructive. Noted on CT scan at [facility] 05/2019 Mild nonproliferative diabet ic retinopathy [...] as of this encounter (statuses as of 08/14/2023) Resolved Problems Problem Noted Date Diagnosed Date [...] as of this encounter (statuses as of 08/14/2023) Immunizations Name Administration Dates Next Due COVID-19 mRNA, LNP-s, No Pre serve, 2-Dose Series (Beamly) 06/20/2021,10/22/2020,09/26/2020 COVID-19, LNP-s, No Preserve , Jamie-sucrose, Ages 12+ (Pfizer) 03/13/2022 Covid-19, Mrna, Lnp-s, Pf, B ivalent, 30 Mcg, IM, 12 yrs and above (Pfizer) 09/20/2022 Pneumococcal Conjugate Vacci ne, 20-valent ([id number]) 03/14/2022 Pneumococcal Polysaccharide PPV23 (Pneumovax) 03/19/2006 Seasonal [...] this encounter Progress Notes * Jena Haas, [facility] - 08/14/2023 9:33 AM EST Patient Phone Numbers Called and spoke to patient. States he was recently flown to [facility]. Currently admittedat this time. Call placed next week to f/u on discharge. Jena Haas [facility], PharmD Clinical Pharmacist - Network Support Manager Medication Therapy [facility] 08/14/2023, 9:39 AM [phone] documented in this encounter Plan of Treatment Upcoming Encounters Date Type Department Care Team (Late st Contact Info) Description 08/19/2023 5:10 PM EST 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 Pharmacy, [address] [place] [address] [place] [address] 09/02/2023 1:00 PM EST Office Visit Ophthalmology, [facility] [address] [place] [address] Mika Diaz DO [address] [place] [address] 09/20/2023 8:50 AM EST Office Visit Family Medicine [address] [place] [phone] [address] [place] [address] 10/01/2023 9:00 AM EST Office Visit Cardiology [address] [place] [address] Prabhakar Henning PA-C [address] [place] [address] 10/15/2023 1:45 PM EST Office Visit Hematology/Oncology [facility] [address] [facility] [place] [address] Fly Velazquez MD [address] [place] [address] 10/23/2023 10:00 AM EDT Office Visit Sleep Disorders Ctr [facility] [place] [address] [place] [phone] Dorothy Toscano CRNP [address] [place] [address] 12/25/2023 2:00 PM EDT Office Visit Nephrology, [facility] [address] [facility] [place] [address] ZemaitisBeckie PA-C [address] [facility] [place] [address] Scheduled Procedures Name Priority Associated Diagnoses Date/Ti [...] Additional history exists CKD PHOS USE SMARTSET 57480 09/18/202302/2023, 08/29/2021, 08/02/2020, Additional history exists Diabetic Eye Exam 10/09/2023 10/09/2022, , 06/12/2022, Additional history exists HbA1c 01/14/2024 07/15/2023, 03/2023, 09/18/2022, Additional history exists GFR 01/28/2024 07/29/2023, 11/2022, 06/17/2023, Additional history exists Albumin/Creatinine Ratio 02/20/2024 023, 03/14/2022, 05/19/2021, Additional history exists CKD HGB USE SMARTSET 81298 07/29/202407/29, 07/29/2023, 07/15/2023, Additional history exists COLONOSCOPY-EVERY [...] this encounter Medical Devices Implanted Type Area Bellmaker Device Identifier Shelf Expiration Date Model / Serial / Lot Envista Hydrophobic Acrylic Intraocular Lens Implanted:Qty: 1 on 12/25/2016 by Raul Neely MD at OR [facility] Right: Eye [employer] 11/09/2018 [id number] / [id number] / [id number] Envista Mx60 +10.0 D Implanted:Qty: 1 on 01/29/2017 by Raul Neely MD at OR [facility] Left: Eye 11/09/2018 [id number] / [id number] documented as of this encounter Visit Diagnoses [...] and were consensually agreed upon. Care Teams Stereo Equipment Repairer Relationship Specialty Start Date End Date Nancy Ryan DO [address] [place] [address] [place] [phone] PCP - General Internal Medicine 09/11/18 documented as of this encounter
--- OUTSIDE RECORDS SUMMARY | 2023-11-13 21:36 | External Medical Summary | Summary of Care ---
Author Name Unknown Organization [facility] Address [address] [place] [address] Phone [phone] Care Team Providers Care Management Professionals Name Role Phone Nancy Ryan Mae Primary Care Provider Reason for Visit * Reason Onset Date Comments Information 08/14/2023 Encounter Details Date Type Department Care Team (Late st Contact Info) Description 08/14/2023 Telephone Hematology/Oncology Treatment, [facility] [address] [place] [address] Fly Velazquez MD [address] [place] [address] Information Allergies No known active allergiesdocumented as of this encounter (statuses as of 08/14/2023) Medications Medication Sig Dispensed Refills Start Date End Date Status MULTIPLE VITAMIN PO TABS 1 TABLET DAILY 0 07/03/2011 Active OMEGA-3 FISH OIL 1000 MG PO CAPS Take one capsule by mouth daily 0 07/03/2011 Active Blood Glucose Monitoring Suppl ([employer] ULTRA SYSTEM) W/DEVICE KITIndications:DM type 2, goal [...] with long-term current use of insulin ([facility]),Type 2 diabetes mellitus with hemoglobin A1c goal of less than 7.0% ([facility]) Use once a day [...] of DVT (deep vein thrombosis),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 management encounter,care home current use of anticoagulant therapy Take [...] with long-term current use of insulin ([facility]) Inject 48 Units under [...] with long-term current use of insulin ([facility]) Use TWICE a day [...] with long-term current use of insulin ([facility]) Take 1 Tablet by [...] the morning. 0 06/04/2023 Active Epoetin Gautam-epbx 17836 UNIT/ML Injection Solution (Retacrit) Inject 2 mL [...] CT scan at [facility] 05/2019 Mild nonproliferative diabet ic retinopathy of [...] mRNA, LNP-s, No Pre serve, 2-Dose Series (PowerSmart) 06/20/2021,10/22/2020,09/26/2020 COVID-19, LNP-s, No Preserve , Jamie-sucrose, Ages 12+ (PowerSmart) 03/13/2022 Covid-19, Mrna, Lnp-s, Pf, B ivalent, 30 Mcg, IM, 12 yrs and above (Pfizer) 09/20/2022 Pneumococcal Conjugate Vacci ne, 20-valent ([id number]) 03/14/2022 Pneumococcal Polysaccharide PPV23 (Pneumovax) 03/19/2006 Seasonal [...] Telephone Encounter - Maggie Cabral RN - 08/14/2023 2:22 PM EST Received call from Robert, resident physician at [facility]. Patient was tranferred to them overnight forlower extremity cellulitis. He is on IV antibiotics and is noted to be improving. They are working him up for other potential issues such as reported coffee ground emesis and possible blood in his stool. The patient stated that he was due for procrit today, so they wanted to confirm that he was due andwhat dose he has been getting. Advised that patient is due today for 40,000 units of procrit if hgb<11.0. He verbalized understanding, states that they will order this for patient to get while there. Dr Velazquez: SHABNAM documented in this encounter Plan of Treatment Upcoming Encounters Date Type Department Care Team (Late st Contact Info) Description 08/14/2023 5:10 PM EST 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 Pharmacy, [address] [place] [address] [place] [address] History of DVT (deep vein thrombosis)* 08/19/2023 5:10 PM EST 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 Pharmacy, [address] [place] [address] [place] [address] 09/02/2023 1:00 PM EST Office Visit [facility]mology, [facility] [place] [address] Mika Diaz DO [address] [place] [address] 09/20/2023 8:50 AM EST Office Visit Family Medicine [address] [place] [phone] Nancy Ryan [address] [place] [address] 10/01/2023 9:00 AM EST Office Visit Cardiology [address] [place] [address] Prabhakar Henning PA-C [address] [place] [address] 10/15/2023 1:45 PM EST Office Visit Hematology/Oncolog [facility] [address] [facility] [place] [address] Fly Velazquez MD [address] [facility] [place] [address] 10/23/2023 10:00 AM EDT Office Visit [facility] Ctr [facility] [place] [phone] Dorothy Toscano CRNP [address] [place] [address] 12/25/2023 2:00 PM EDT Office Visit Nephrology, [facility] [address] [place] [address] ZemaitisBeckie PA-C 200 [facility] [place] [address] Scheduled Procedures Name Priority Associated Diagnoses Date/Ti [...] Additional history exists CKD PHOS USE SMARTSET 12064 09/18/2023 02/0 02/2023, 08/29/2021, 08/02/2020, Additional history exists Diabetic Eye Exam 10/09/2023 10/09/2022, , 06/12/2022, Additional history exists HbA1c 01/14/2024 07/15/2023, 08/0 03/2023, 09/18/2022, Additional history exists GFR 01/28/2024 07/29/2023, 120 11/2022, 06/17/2023, Additional history exists Albumin/Creatinine Ratio 02/20/2024 023, 03/14/2022, 05/19/2021, Additional history exists CKD HGB USE SMARTSET 25816 07/29/202407/29, 07/29/2023, 07/15/2023, Additional history exists COLONOSCOPY-EVERY [...] this encounter Medical Devices Implanted Type Area Health Technician Hearing Device Identifier Shelf Expiration Date Model / Serial / Lot Envista Hydrophobic Acrylic Intraocular Lens Implanted:Qty: 1 on 12/25/2016 by Raul Neely MD at OR [facility] Right: Eye [employer]OM[employer] 11/09/2018 [id number] / [id number] / [id number] Envista Mx60 +10.0 D Implanted:Qty: 1 on 01/29/2017 by Raul Neely MD at [facility] Left: Eye 11/09/2018 [id number] / [id number] / [id number] documented as of this encounter Advance Directives [...] were consensually agreed upon. Care Teams Management Professionals Relationship Specialty Start Date End Date Nancy Ryan DO [address] [place] [address] [place] [address] PCP - General Internal Medicine 09/11/18 documented as of this encounter
--- OUTSIDE RECORDS SUMMARY | 2023-11-13 21:36 | External Medical Summary | Summary of Care ---
Author Name Unknown Organization [facility] Address [address] [place] [address] Phone [phone] Care Team Providers Care Bottom Stop Attacher Name Role Phone Nancy Ryan DO Primary Care Provider Encounter Details Date Type Department Care Team (Late st Contact Info) Description 08/13/2023 Orders Only Family Medicine [address] [place] [phone] Nancy Ryan DO [address] [place] [address] [place] [address] Allergies No known active allergiesdocumented as of this encounter (statuses as of 08/13/2023) Medications Medication Sig Dispensed Refills Start Date End Date Status MULTIPLE VITAMIN PO TABS 1 TABLET DAILY 0 07/03/2011 Active OMEGA-3 FISH OIL 1000 MG PO CAPS Take one capsule by mouth daily 0 07/03/2011 Active Blood Glucose Monitoring Suppl (Loudie ULTRA SYSTEM) W/DEVICE KITIndications:DM type 2, goal [...] of DVT (deep vein thrombosis),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 management encounter,[facility] current use of anticoagulant therapy Take 5 [...] use of insulin ([facility]) Inject 48 Units under the skin [...] current use of insulin ([facility]) Take 1 Tablet by mouth 2 [...] the morning. 0 06/04/2023 Active Epoetin Gautam-epbx 66486 UNIT/ML Injection Solution (Retacrit) Inject 2 mL [...] as of this encounter (statuses as of 08/13/2023) Active Problems Problem Noted Date Diagnosed Date [...] CT scan at [facility] 05/2019 Mild nonproliferative diabet ic retinopathy of [...] Diabetes Taxonomy. 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 of inactive term MCFP current use of anticoagulant therapy 0 03/16/2005 Overview: 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 of inactive term SPENCER (obstructive sleep apnea) 06/11/2001 Overview: CPAP 11 cwp? AHP Gout of wrist documented as of this encounter (statuses as of 08/13/2023) Resolved Problems Problem Noted Date Diagnosed Date [...] as of this encounter (statuses as of 08/13/2023) Immunizations Name Administration Dates Next Due COVID-19 mRNA, LNP-s, No Pre serve, 2-Dose Series (Healtheo360) 06/20/2021,10/22/2020,09/26/2020 COVID-19, LNP-s, No Preserve , Jamie-sucrose, Ages 12+ (Healtheo360) 03/13/2022 Covid-19, Mrna, Lnp-s, Pf, B ivalent, 30 Mcg, IM, 12 yrs and above (Pfizer) 09/20/2022 Pneumococcal Conjugate Vacci ne, 20-valent ([id number]) 03/14/2022 Pneumococcal Polysaccharide PPV23 (Pneumovax) 03/19/2006 Seasonal [...] Description 08/14/2023 5:10 PM EST 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 Pharmacy, [address] [place] [address] [place] [address] 09/02/2023 1:00 PM EST Office Visit Ophthalmology, [facility] [address] [place] [address] Mika Diaz DO [address] [place] [address] 09/20/2023 8:50 AM EST Office Visit Family Medicine [address] [place] [phone] [place] [address] 10/01/2023 9:00 AM EST Office Visit Cardiology [address] [place] [address] Prabhakar Henning PAJoseC [address] [place] [address] 10/15/2023 1:45 PM EST Office Visit Hematology/Oncology [facility] [address] [place] [address] Fly Velazquez MD [address] [place] [address] 10/23/2023 10:00 AM EDT Office Visit Sleep Disorders Ctr [facility] [address] [place] [phone] Dorothy Toscano CRNP [address] [place] [address] 12/25/2023 2:00 PM EDT Office Visit Nephrology, [facility] [address] [place] [address] ZeBeckie cruz PADarron [address] [place] [address] Scheduled Procedures Name Priority Associated Diagnoses Date/Ti [...] Additional history exists CKD PHOS USE SMARTSET 90547 09/18/2023 02/0 02/2023, 08/29/2021, 08/02/2020, Additional history exists Diabetic Eye Exam 10/09/2023 10/09/2022, , 06/12/2022, Additional history exists HbA1c 01/14/2024 07/15/2023, 08/0 03/2023, 09/18/2022, Additional history exists GFR 01/28/2024 07/29/2023, 1211/2022, 06/17/2023, Additional history exists Albumin/Creatinine Ratio 02/20/2024 023, 03/14/2022, 05/19/2021, Additional history exists CKD HGB USE SMARTSET 24472 07/29/202407/29, 07/29/2023, 07/15/2023, Additional history exists COLONOSCOPY-EVERY [...] this encounter Medical Devices Implanted Type Area Double End Sewer Device Identifier Shelf Expiration Date Model / Serial / Lot Envista Hydrophobic Acrylic Intraocular Lens Implanted:Qty: 1 on 12/25/2016 by Raul Neely MD at OR [facility] Right: Eye [employer]OM[employer] 11/09/2018 [id number] / [id number] / [id number] Envista Mx60 +10.0 D Implanted:Qty: 1 on 01/29/2017 by Raul Neely MD at OR [facility] Left: Eye 11/09/2018 [id number] / [id number] / [id number] documented as of this encounter Procedures Procedure Name Priority Date/Time Associated Diagnosis Comments XR CHEST 1 VIEW Routine 08/11/2023 documented in this encounter Results * XR CHEST 1 VIEW (08/11/2023) Anatomical Region Laterality Modality Chest Other 08/11/2023 Robe Blankenship DO RADIOLOGY (RAD GENER AL) documented in this encounter Advance Directives Latest [...] and were consensually agreed upon. Care Teams Bottom Stop Attacher Relationship Specialty Start Date End Date Nancy Ryan DO [address] [place] [address] [place] [phone] PCP - General Internal Medicine 09/11/18 documented as of this encounter
--- OUTSIDE RECORDS SUMMARY | 2023-11-13 21:37 | External Medical Summary | Summary of Care ---
Author Name Unknown Organization [facility] Address [address] [place] [address] Phone [phone] Care Team Providers Care Chocolate Finisher Name Role Phone Nancy Ryan Murolalo ALVAREZ Primary Care Provider [phone] Encounter Details Date Type Department Care Team (Late st Contact Info) Description 07/30/2023 Telephone Pharmacy, [address] [place] [address] [facility] [address] [place] [address] Allergies No known active allergiesdocumented as of this encounter (statuses as of 08/01/2023) Medications Medication Sig Dispensed Refills Start Date End Date Status MULTIPLE VITAMIN PO TABS 1 TABLET DAILY 0 07/03/2011 Active OMEGA-3 FISH OIL 1000 MG PO CAPS Take one capsule by mouth daily 0 07/03/2011 Active Blood Glucose Monitoring Suppl ([employer] ULTRA SYSTEM) W/DEVICE KITIndications:DM type 2, [...] DVT (deep vein thrombosis),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 management encounter,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 0 06/04/2023 Active Epoetin Gautam-epbx 77422 UNIT/ML Injection Solution (Retacrit) Inject 2 mL [...] by mouth in the morning. 0 Active amLODIPine Besylate 2.5 MG Oral Tablet (Norvasc) Take 1 Tablet by mouth in the morning. 90 Tablet 5 07/31/2023 Active Hospital, Clinic, or Other Facility Administered [...] as of this encounter (statuses as of 08/01/2023) Active Problems Problem Noted Date Diagnosed Date [...] Non-obstructive. Noted on CT scan at [facility] 05/2019 Mild nonproliferative diabet ic retinopathy [...] Taxonomy. 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 AHP Gout of wrist documented as of this encounter (statuses as of 08/01/2023) Resolved Problems Problem Noted Date Diagnosed Date [...] as of this encounter (statuses as of 08/01/2023) Immunizations Name Administration Dates Next Due COVID-19 mRNA, LNP-s, No Pre serve, 2-Dose Series (Intoo) 06/20/2021,10/22/2020,09/26/2020 COVID-19, LNP-s, No Preserve , Jamie-sucrose, Ages 12+ (Intoo) 03/13/2022 Covid-19, Mrna, Lnp-s, Pf, B ivalent, 30 Mcg, IM, 12 yrs and above (Intoo) 09/20/2022 Pneumococcal Conjugate Vacci ne, 20-valent ([id number]) 03/14/2022 Pneumococcal Polysaccharide PPV23 (Pneumovax) 03/19/2006 Seasonal [...] Telephone Encounter - Alejandrina Sims MD - 08/01/2023 1:14 PM EST Noted and appreciated. Would also recheck BMP in early August >> renal nurse to place orders and update pt MTM FYI * Telephone Encounter - Jena Haas RPh - 07/31/2023 3:57 PM EST Patient Phone Numbers Called and spoke with patient. Made him aware of recommendations. Patient expressed understanding and was agreeable. Recommend -continue current chlorthal dose -needs to increase fluid intake > aim for 60-80 oz daily mostly water -ensure proper technique w/ home bp checks -add amlodipine 2.5 mg daily Current Hypertension Medications: Torsemide 20mg daily Losartan 50mg 1/2 tablet daily Carvedilol 6.25mg BID Chlorthalidone 25mg daily START Amlodipine 2.5mg daily Jena Haas RPh, PharmD Clinical Pharmacist - Bread Racker Medication Therapy [facility] 07/31/2023, 4:04 PM [phone] * Telephone Encounter - Alejandrina Sims MD - 07/31/2023 1:23 PM EST 07/19/23 10:09 07/20/23 10:26 07/21/23 12:43 07/22/23 09:24 07/23/23 11:07 07/24/23 11:24 07/25/23 10:54 07/26/23 09:58 07/27/23 10:57 Systolic BP 160 mm/Hg (H) [1] 134 mm/Hg [1] 159 mm/Hg (H) [1] 146 mm/Hg (H) [1] 159 mm/Hg (H) [1] 137 mm/Hg [1] 161 mm/Hg (H) [1] 152 mm/Hg (H) [1] 133 mm/Hg [1] Diastolic BP 96 mm/Hg (H) [1] 76 mm/Hg [1] 87 mm/Hg [1] 88 mm/Hg [1] 85 mm/Hg [1] 75 mm/Hg [1] 95 mm/Hg (H) [1] 80 mm/Hg [1] 80 mm/Hg [1] Pulse 80 bpm [1] 78 bpm [1] 81 bpm [1] 80 bpm [1] 78 bpm [1] 81 bpm [1] 81 bpm [1] 95 bpm [1] 76 bpm [1] 07/28/23 11:35 07/29/23 09:51 07/30/23 07/31/23 09:25 Systolic BP 134 mm/Hg [1] 144 mm/Hg (H) [1] 135 mm/Hg [1] 146 mm/Hg (H) [1] Diastolic BP 73 mm/Hg [1] 83 mm/Hg [1] 84 mm/Hg [1] 81 mm/Hg [1] Pulse 81 bpm [1] 102 bpm [1] 81 bpm [1] 80 bpm [1] BEFORE chlorthal 07/11/23 10:05 07/12/23 10:43 07/13/23 09:04 07/14/23 10:44 07/15/23 11:26 07/16/23 Systolic BP 169 mm/Hg (H) [1] 165 mm/Hg (H) [1] 149 mm/Hg (H) [1] 176 mm/Hg (H) [1] 156 mm/Hg (H) [1] 141 mm/Hg (H) [1] Diastolic BP 83 mm/Hg [1] 86 mm/Hg [1] 78 mm/Hg [1] 89 mm/Hg [1] 75 mm/Hg [1] 83 mm/Hg [1] Pulse 76 bpm [1] 77 bpm [1] 82 bpm [1] 75 bpm [1] 94 bpm [1] 83 bpm [1] Latest Reference Range & Units 06/03/23 08:49 06/17/23 09:12 07/15/23 09:22 07/29/23 09:15 Sodium 135 - 146 mmol/L 139 138 140 137 Potassium 3.5 - 5.1 mmol/L 5.8 (H) 5.2 (H) 4.9 4.3 Chloride 98 - 107 mmol/L 109 (H) 103 105 104 CO2 22 - 32 mmol/L 19 (L) 22 21 (L) 21 (L) BUN 6 - 20 mg/dL 43 (H) 31 (H) 46 (H) 79 (H) Creatinine 0.6 - 1.2 mg/dL 1.7 (H) 1.6 (H) 1.6 (H) 2.3 (H) Estimated Glomerular Filtration Rate >=60 mL/min 45 (L) 46 (L) 47 (L) 30 (L) BP are significantly improved on chlorthalidone though still above goal Recommend -continue current chlorthal dose -needs to increase fluid intake > aim for 60-80 oz daily mostly water -ensure proper technique w/ home bp checks -add amlodipine 2.5 mg daily * Telephone Encounter - Jena Haas RPh - 07/30/2023 4:43 PM EST Patient started Chlorthalidone on 07/16. Repeat BMP below. Patient notes to drinking significantly less fluid than usual the last week. Latest Reference Range & Units 07/15/23 09:22 07/29/23 09:15 Sodium 135 - 146 mmol/L 140 137 Potassium 3.5 - 5.1 mmol/L 4.9 4.3 Chloride 98 - 107 mmol/L 105 104 CO2 22 - 32 mmol/L 21 (L) 21 (L) BUN 6 - 20 mg/dL 46 (H) 79 (H) Creatinine 0.6 - 1.2 mg/dL 1.6 (H) 2.3 (H) Estimated Glomerular Filtration Rate >=60 mL/min 47 (L) 30 (L) Anion Gap 7 - 15 mmol/L 14 12 Glucose 70 - 120 mg/dL 144 (H) 182 (H) Calcium 8.4 - 10.2 mg/dL 9.2 9.0 (L): Data is abnormally low (H): Data is abnormally high Dr Johansen - Please advise on additional recommendations Jena Haas RPh, PharmD Clinical Pharmacist - Bread Racker Medication Therapy [facility] 07/30/2023, 4:44 PM [phone] documented in this encounter Plan of Treatment Upcoming Encounters Date Type Department Care Team (Late st Contact Info) Description 08/13/2023 9:00 AM EST Laboratory Laboratory [address] [place] [phone] [place], Lab [address] [place] [address] 08/13/2023 5:30 PM EST 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 Pharmacy, [address] [place] [address] [place] [address] 08/14/2023 10:30 AM EST Immunization/Injection Hematology/Oncolog y Treatment, [place] [address] [facility] [place] [address] Nurse, Med [address] [place] [address] 09/02/2023 1:00 PM EST Office Visit Ophthalmology, [facility] [address] [place] [address] Mika Diaz DO [address] [place] [address] 09/20/2023 8:50 AM EST Office Visit Family Medicine [address] [place] [phone] [place] [address] 10/01/2023 9:00 AM EST Office Visit Cardiology [address] [place] [address] Prabhakar Henning PA-C [address] [place] [address] 10/15/2023 1:45 PM EST Office Visit Hematology/Oncolog y [facility] [place] [address] [place] [address] Fly Velazquez MD [address] [place] [address] 10/23/2023 10:00 AM EDT Office Visit [facility] Disorders Ctr [facility] [employer] [facility] [address] [place] [phone] Dorothy Toscano CRNP [address] [place] [address] 12/25/2023 2:00 PM EDT Office Visit Nephrology, [facility] [address] [place] [address] ZemaitisBeckie PA-C [address] [place] [address] Scheduled Procedures Name Priority Associated Diagnoses Date/Ti [...] Additional history exists CKD PHOS USE SMARTSET 20830 09/18/20230 02/2023, 08/29/2021, 08/02/2020, Additional history exists Diabetic Eye Exam 10/09/2023 10/09/2022, , 06/12/2022, Additional history exists HbA1c 01/14/2024 07/15/2023, 03/2023, 09/18/2022, Additional history exists GFR 01/28/2024 07/29/2023, 1211/2022, 06/17/2023, Additional history exists Albumin/Creatinine Ratio 02/20/20242 023, 03/14/2022, 05/19/2021, Additional history exists CKD HGB USE SMARTSET 65340 07/29/202407/29, 07/29/2023, 07/15/2023, Additional history exists COLONOSCOPY-EVERY [...] this encounter Medical Devices Implanted Type Area Instrumentation Supervisor Device Identifier Shelf Expiration Date Model / Serial / Lot Envista Hydrophobic Acrylic Intraocular Lens Implanted:Qty: 1 on 12/25/2016 by Raul Neely MD at OR [facility] Right: Eye [employer] 11/09/2018 [id number] / [id number] / [id number] Envista Mx60 +10.0 D Implanted:Qty: 1 on 01/29/2017 by Raul Neely MD at OR [facility] Left: Eye 11/09/2018 [id number] / [id number] documented as of this encounter Advance Directives [...] and were consensually agreed upon. Care Teams Chocolate Finisher Relationship Specialty Start Date End Date Nancy Ryan DO [address] [place] [address] [place] [phone] PCP - General Internal Medicine 09/11/18 documented as of this encounter
--- OUTSIDE RECORDS SUMMARY | 2023-11-13 21:37 | External Medical Summary | Summary of Care ---
Author Name Unknown Organization [facility] Address [address] [place] [address] Phone [phone] Care Team Providers Care Credit Union Examiner Name Role Phone Nancy Ryan DO Primary Care Provider [phone] Reason for Visit * Reason Comments Outpatient Testing Encounter Details Date Type Department Care Team (Late st Contact Info) Description 07/29/2023 9:00 AM EST Laboratory Laboratory [address] [place] [phone] [place] [address] History of DVT (deep vein thrombosis); 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 management encounter; penitentiary current use of anticoagulant therapy; Anemia due to stage 3a chronic kidney disease ; HTN, goal below 140/90 Allergies No known active allergiesdocumented as of this encounter (statuses as of 07/29/2023) Medications Medication Sig Dispensed Refills Start Date End Date Status MULTIPLE VITAMIN PO TABS 1 TABLET DAILY 0 07/03/2011 Active OMEGA-3 FISH OIL 1000 MG PO CAPS Take one capsule by mouth daily 0 07/03/2011 Active Blood Glucose Monitoring Suppl ([employer] ULTRA SYSTEM) W/DEVICE KITIndications:DM type 2, goal [...] with long-term current use of insulin ([facility]),Type 2 diabetes mellitus with hemoglobin A1c goal of less than 7.0% ([facility]) Use once a day with basaglar. DX e11.9 100 Each 3 10/17/2021 Active Rhopressa 0.02 % Ophthalmic Solution Instill 1 Drop into the left eye at bedtime. 0 05/17/2022 Active Vitamin C 1000 MG Oral Tablet Take 1 Tablet by mouth in the morning. 0 Active Warfarin Sodium 5 MG Oral Tablet (Coumadin)Indicati ons:History of DVT (deep vein thrombosis),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 management encounter,penitentiary current use of anticoagulant therapy Take 5 [...] with long-term current use of insulin ([facility]) Inject 48 Units under the skin [...] with long-term current use of insulin ([facility]) Use TWICE a day to test glucose Diagnosis = E11.9 200 Each 3 03/19/2023 Active Ozempic (2 MG/DOSE) 8 MG/3ML Subcutaneous Solution Pen-injector (Semaglutide (2 MG/DOSE))Indicatio ns:Type 2 diabetes mellitus with diabetic neuropathy, with long-term current use of insulin ([facility]) Inject 2 mg under the [...] with long-term current use of insulin ([facility]) Take 1 Tablet by mouth 2 [...] the morning. 0 06/04/2023 Active Epoetin Gautam-epbx 80294 UNIT/ML Injection Solution (Retacrit) Inject 2 mL [...] by mouth in the morning. 0 Active Hospital, Clinic, or Other Facility Administered [...] as of this encounter (statuses as of 07/29/2023) Active Problems Problem Noted Date Diagnosed Date [...] Diabetes Taxonomy. 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 AHP Gout of wrist documented as of this encounter (statuses as of 07/29/2023) Resolved Problems Problem Noted Date Diagnosed Date [...] as of this encounter (statuses as of 07/29/2023) Immunizations Name Administration Dates Next Due COVID-19 mRNA, LNP-s, No Pre serve, 2-Dose Series ([employer]) 06/20/2021,10/22/2020,09/26/2020 COVID-19, LNP-s, No Preserve , Jamie-sucrose, Ages 12+ ([employer]) 03/13/2022 Covid-19, Mrna, Lnp-s, Pf, B ivalent, 30 Mcg, IM, 12 yrs and above (Pfizer) 09/20/2022 Pneumococcal Conjugate Vacci ne, 20-valent ([id number]) 03/14/2022 Pneumococcal Polysaccharide PPV23 (Pneumovax) 03/19/2006 Seasonal [...] Team (Late st Contact Info) Description 07/30/2023 7:00 AM EST 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 Pharmacy, [address] [place] [phone] [address] [place] [address] 07/30/2023 10:30 AM EST Immunization/Injection Hematology[facility]olog [facility] [place] [facility] [address] [facility], Med 4 [address] [facility] [place] [address] 08/13/2023 9:00 AM EST Laboratory Laboratory [address] [place] [phone] [place] [address] 08/14/2023 10:30 AM EST Immunization/Injection Hematology/Oncolog [facility] Treatment, [place] [facility] [address] Nurse, Med 4 200 [facility] [place] [address] 09/02/2023 1:00 PM EST Office Visit Ophthalmology, [facility] [address] [place] [address] Mika Diaz DO [address] [place] [address] 09/20/2023 8:50 AM EST Office Visit Family Medicine [address] [place] [phone] [address] [place] [address] 10/01/2023 9:00 AM EST Office Visit Cardiology [address] [place] [address] Prabhakar Henning PA-C [address] [place] [address] 10/15/2023 1:45 PM EST Office Visit Hematology/Oncolog y [facility] Jordana [place] [address] [facility] [place], [place] [address] Fly Velazquez MD [address] [facility] [place] [address] 10/23/2023 10:00 AM EDT Office Visit Sleep Disorders Ctr Manny Browne [place] [address] [place] [phone] Dorothy Toscano CRNP [address] [place] [address] 12/25/2023 2:00 PM EDT Office Visit Nephrology, [facility] [address] [facility] [place] [address] Beckie Dunbar PA-C [address] [facility] [address] [place] [address] Pending Results Name Type Priority Associated Diagnoses Date /Time PT INR Lab Routine History of DVT (deep vein thrombosis) 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 management encounter 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 07/29/2023 9:15 AM EST CBC WITH WBC DIFFERENTIAL Lab STAT Anemia due to stage 3a chronic kidney disease 07/29/2023 9:15 AM EST BASIC METABOLIC PANEL Lab Routine HTN, goal below 140/90 07/29/2023 9:15 AM EST CBC Lab STAT Anemia due to stage 3a chronic kidney disease 07/29/2023 9:15 AM EST DIFFERENTIAL, AUTOMATED Lab STAT Anemia due to stage 3a chronic kidney disease 07/29/2023 9:15 AM EST Scheduled Procedures Name Priority Associated [...] Additional history exists CKD PHOS USE SMARTSET 89248 09/18/2023 02/0 02/2023, 08/29/2021, 08/02/2020, Additional history exists Diabetic Eye Exam 10/09/2023 10/09/2022, , 06/12/2022, Additional history exists GFR 01/14/2024 07/15/2023, 110 01/2023, 06/03/2023, Additional history exists HbA1c 01/14/2024 07/15/2023, 080 03/2023, 09/18/2022, Additional history exists Albumin/Creatinine Ratio 02/20/2024 023, 03/14/2022, 05/19/2021, Additional history exists CKD HGB USE SMARTSET 69887 07/15/202407/15, 07/15/2023, 06/28/2023, Additional history exists COLONOSCOPY-EVERY 5 YRS AGES [...] this encounter Medical Devices Implanted Type Area Edge Runner Device Identifier Shelf Expiration Date Model / Serial / Lot Envista Hydrophobic Acrylic Intraocular Lens Implanted:Qty: 1 on 12/25/2016 by Raul Neely MD at OR [facility] Right: Eye [employer] 11/09/2018 [id number] / [id number] / [id number] Envista Mx60 +10.0 D Implanted:Qty: 1 on 01/29/2017 by Raul Neely MD at OR [facility] Left: Eye 11/09/2018 [id number] / [id number] / [id number] documented as of this encounter Visit Diagnoses Diagnosis History of DVT (deep vein thrombosis) Personal history of venous thrombosis and embolism 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 management encounter Encounter for therapeutic drug monitoring 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 Anemia due to stage 3a chronic kidney disease HTN, goal below 140/90 Unspecified essential hypertension documented in this encounter [...] and were consensually agreed upon. Care Teams Credit Union Examiner Relationship Specialty Start Date End Date Nancy Ryan DO [address] [place] [address] [place] [address] PCP - General Internal Medicine 09/11/18 documented as of this encounter
--- OUTSIDE RECORDS SUMMARY | 2023-11-13 21:37 | External Medical Summary | Summary of Care ---
Author Name Unknown Organization [facility] Address [address] [place] [address] Phone [phone] Care Team Providers Care Director Trading Name Role Phone Nancy Ryan Murolalo ALVAREZ Primary Care Provider [phone] Encounter Details Date Type Department Care Team (Late st Contact Info) Description 07/30/2023 Telephone Pharmacy, [address] [place] [address] [facility] [address] [place] [address] Allergies No known active allergiesdocumented as of this encounter (statuses as of 07/31/2023) Medications Medication Sig Dispensed Refills Start Date End Date Status MULTIPLE VITAMIN PO TABS 1 TABLET DAILY 0 07/03/2011 Active OMEGA-3 FISH OIL 1000 MG PO CAPS Take one capsule by mouth daily 0 07/03/2011 Active Blood Glucose Monitoring Suppl ([employer] ULTRA SYSTEM) W/DEVICE KITIndications:DM type 2, goal [...] of DVT (deep vein thrombosis),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 management encounter,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 0 06/04/2023 Active Epoetin Gautam-epbx 29533 UNIT/ML Injection Solution (Retacrit) Inject 2 mL [...] as of this encounter (statuses as of 07/31/2023) Active Problems Problem Noted Date Diagnosed Date [...] CT scan at [facility] 05/2019 Mild nonproliferative diabet ic [...] Diabetes Taxonomy. 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 AHP Gout of wrist documented as of this encounter (statuses as of 07/31/2023) Resolved Problems Problem Noted Date Diagnosed Date [...] as of this encounter (statuses as of 07/31/2023) Immunizations Name Administration Dates Next Due COVID-19 mRNA, LNP-s, No Pre serve, 2-Dose Series ([employer]) 06/20/2021,10/22/2020,09/26/2020 COVID-19, LNP-s, No Preserve , Jamie-sucrose, Ages 12+ ([employer]) 03/13/2022 Covid-19, Mrna, Lnp-s, Pf, B ivalent, 30 Mcg, IM, 12 yrs and above ([employer]) 09/20/2022 Pneumococcal Conjugate Vacci ne, 20-valent ([id number]) 03/14/2022 Pneumococcal Polysaccharide PPV23 (Pneumovax) 03/19/2006 Seasonal [...] Miscellaneous Notes * Telephone Encounter - Jena Haas [facility] - 07/31/2023 3:57 PM EST Patient Phone [...] Jena Haas RPh, PharmD Clinical Pharmacist - Outside Sales Medication Therapy [facility] 07/31/2023, 4:04 PM .[phone] * Telephone Encounter - Alejandrina Sims MD [...] Please advise on additional recommendations Jena Haas [facility], PharmD Clinical Pharmacist - Outside Sales Medication Therapy [facility] 07/30/2023, 4:44 PM [phone] documented in this encounter Plan of Treatment Upcoming Encounters Date Type Department Care Team (Late st Contact Info) Description 08/13/2023 9:00 AM EST Laboratory Laboratory [address] [place] [phone] [address] [place] [address] 08/13/2023 5:30 PM EST 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 Pharmacy, [address] [place] [address] [place] [address] 08/14/2023 10:30 AM EST Immunization/Injection Hematology/Oncolog y Treatment, [place] 200 [facility] [place] [address] Nurse, Med 200 [facility] [place] [address] 09/02/2023 1:00 PM EST [facility] [address] [place] [address] Mika Diaz DO [address] [place] [address] 09/20/2023 8:50 AM EST Office Visit Family Medicine [address] [place] [phone] [address] [place] [address] 10/01/2023 9:00 AM EST Office Visit Cardiology [address] [place] [address] Prabhakar Henning PA-C [address] [place] [address] 10/15/2023 1:45 PM EST Office Visit Hematology/Oncolog y [facility] Jordana [place] 200 [facility] [place] [address] Fly Velazquez MD 200 [facility] [place] [address] 10/23/2023 10:00 AM EDT [facility] [address] [place] [phone] Dorothy Toscano CRNP [address] [place] [address] 12/25/2023 2:00 PM EDT Office Visit Nephrology, [place] [address] [place] [address] ZemaBeckie umanzor PA-C 200 [facility] [place] [address] Scheduled Procedures Name Priority Associated Diagnoses Date/Ti [...] Additional history exists CKD PHOS USE SMARTSET 24308 09/18/2023 020 02/2023, 08/29/2021, 08/02/2020, Additional history exists Diabetic Eye Exam 10/09/2023 10/09/2022, , 06/12/2022, Additional history exists HbA1c 01/14/2024 07/15/2023, 080 03/2023, 09/18/2022, Additional history exists GFR 01/28/2024 07/29/2023, 1211/2022, 06/17/2023, Additional history exists Albumin/Creatinine Ratio 02/20/2024 023, 03/14/2022, 05/19/2021, Additional history exists CKD HGB USE SMARTSET 91786 07/29/202407/29, 07/29/2023, 07/15/2023, Additional history exists COLONOSCOPY-EVERY [...] this encounter Medical Devices Implanted Type Area Roll Edge Machine Operator Device Identifier Shelf Expiration Date Model / Serial / Lot Envista Hydrophobic Acrylic Intraocular Lens Implanted:Qty: 1 on 12/25/2016 by Raul Neely MD at OR [facility] Right: Eye [employer] 11/09/2018 [id number] / [id number] / [id number] Envista Mx60 +10.0 D Implanted:Qty: 1 on 01/29/2017 by Raul Neely MD at OR [facility] Left: Eye 11/09/2018 [id number] / [id number] documented as of this encounter Advance Directives [...] were consensually agreed upon. Care Teams Director Trading Relationship Specialty Start Date End Date Nancy Ryan DO [address] [place] [address] [place] [address] PCP - General Internal Medicine 09/11/18 documented as of this encounter
--- OUTSIDE RECORDS SUMMARY | 2023-11-13 21:37 | External Medical Summary ---
Author Name Unknown Address Unknown Organization K01:[facility] [place] [facility] [address] [facility] [address] [place] [address] Laboratory Report Ordering Provider Test Date Status JANE WOODRUFF 07/29/2023 09:15:42 Final Observation Date Value Abnormality Reference (Units ) Status WBC, Total 07/29/2023 09:15:42 10.09 4.00-10.80 (K/uL) Final RBC 07/29/2023 09:15:42 3.30 4.50-5.25 (M/uL) Final Hemoglobin 07/29/2023 09:15:42 9.5 Below low normal 14.0-16.8 (g/dL) Final HCT 07/29/2023 09:15:42 30.2 Below low normal 40.0-48.4 (%) Final MCV 07/29/2023 09:15:42 91.5 82.0-99.5 (fL) Final MCH 07/29/2023 09:15:42 28.8 27.0-34.0 (pg) Final MCHC 07/29/2023 09:15:42 31.5 32.0-36.0 (g/dL) Final RDW 07/29/2023 09:15:42 18.8 11.5-15.5 (%) Final Platelets 07/29/2023 09:15:42 252 140-400 (K/uL) Final MPV 07/29/2023 09:15:42 9.7 6.6-11.1 (fL) Final Nucleated erythrocytes/100 leukocytes [Ratio] in Blood by Automated count 07/29/2023 09:15:42 0 <=0 (/100 WBCs) Final Performing Location [facility] [place] [address] [place] [address]
--- OUTSIDE RECORDS SUMMARY | 2023-11-13 21:37 | External Medical Summary | Summary of Care ---
Author Name Unknown Organization [facility] Address [address] [place] [address] Phone [phone] Care Team Providers Care Fourth Mate Name Role Phone Lacy Ryanraheem Muro Primary Care Provider Encounter Details Date Type Department Care Team (Late st Contact Info) Description 08/11/2023 Result Scan Unspecified Department <No scans attached> Allergies No known active allergiesdocumented as of this encounter (statuses as of 08/13/2023) Medications Medication Sig Dispensed Refills Start Date End Date Status MULTIPLE VITAMIN PO TABS 1 TABLET DAILY 0 07/03/2011 Active OMEGA-3 FISH OIL 1000 MG PO CAPS Take one capsule by mouth daily 0 07/03/2011 Active Blood Glucose Monitoring Suppl ([employer] ULTRA SYSTEM) W/DEVICE KITIndications:DM type 2, goal [...] current use of insulin ([facility]) Inject 48 Units under the skin [...] current use of insulin ([facility]) Use TWICE a day to test glucose Diagnosis = E11.9 200 Each 3 03/19/2023 Active Ozempic (2 MG/DOSE) 8 MG/3ML Subcutaneous Solution Pen-injector (Semaglutide (2 MG/DOSE))Indicatio ns:Type 2 diabetes mellitus with diabetic neuropathy, with long-term current use of insulin ([facility]) Inject 2 mg under the skin [...] the morning. 0 06/04/2023 Active Epoetin Gautam-epbx 33091 UNIT/ML Injection Solution (Retacrit) Inject 2 mL [...] mRNA, LNP-s, No Pre serve, 2-Dose Series ([employer]) 06/20/2021,10/22/2020,09/26/2020 COVID-19, LNP-s, No Preserve , Jamie-sucrose, Ages 12+ (Pfizer) 03/13/2022 Covid-19, Mrna, Lnp-s, Pf, B ivalent, 30 Mcg, IM, 12 yrs and above ([employer]) 09/20/2022 Pneumococcal Conjugate Vacci ne, 20-valent ([id number]) 03/14/2022 Pneumococcal Polysaccharide PPV23 (Pneumovax) 03/19/2006 Seasonal [...] Team (Late st Contact Info) Description 08/13/2023 5:30 PM EST 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 Pharmacy, [address] [place] [address] [place] [address] 08/14/2023 10:30 AM EST Immunization/Injection Hematology/Oncolog y Treatment, [place] [address] [place] [address] Nurse, Med [address] [place] [address] 08/14/2023 5:10 PM EST 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 Pharmacy, [address] [place] [address] [place] [address] 09/02/2023 1:00 PM EST Office Visit Ophthalmology, [facility] [address] [place] [address] Mika Diaz DO [address] [place] [address] 09/20/2023 8:50 AM EST Office Visit Family Medicine [address] [place] [phone] [address] [place] [address] 10/01/2023 9:00 AM EST Office Visit Cardiology [address] [place] [address] Prabhakar Henning PADarron [address] [place] [address] 10/15/2023 1:45 PM EST Office [facility] [place] [address] [place] [address] Fly Velazquez MD [address] [place] [address] 10/23/2023 10:00 AM EDT Office Visit Sleep Disorders Ctr [facility] [address] [place] [phone] Dorothy Toscano CRNP [address] [place] [address] 12/25/2023 2:00 PM EDT Office Visit Nephrology, [place] [address] [facility] [place] [address] ZemaitisBeckie PA-C [address] [facility] [place] [address] Scheduled Procedures Name Priority Associated Diagnoses Date/Ti [...] Additional history exists CKD PHOS USE SMARTSET 08548 09/18/20230 02/2023, 08/29/2021, 08/02/2020, Additional history exists Diabetic Eye Exam 10/09/2023 10/09/2022, , 06/12/2022, Additional history exists HbA1c 01/14/2024 07/15/2023, 080 03/2023, 09/18/2022, Additional history exists GFR 01/28/2024 07/29/2023, 1211/2022, 06/17/2023, Additional history exists Albumin/Creatinine Ratio 02/20/2024 023, 03/14/2022, 05/19/2021, Additional history exists CKD HGB USE SMARTSET 90467 07/29/202407/29, 07/29/2023, 07/15/2023, Additional history exists COLONOSCOPY-EVERY [...] this encounter Medical Devices Implanted Type Area Manhole Stripper Device Identifier Shelf Expiration Date Model / Serial / Lot Envista Hydrophobic Acrylic Intraocular Lens Implanted:Qty: 1 on 12/25/2016 by Raul Neely MD at OR [facility] Right: Eye [employer] 11/09/2018 [id number] / [id number] / [id number] Envista Mx60 +10.0 D Implanted:Qty: 1 on 01/29/2017 by Raul Neely MD at OR [facility] Left: Eye 11/09/2018 [id number] / [id number] / [id number] documented as of this encounter Procedures Procedure Name Priority Date/Time Associated Diagnosis Comments EKG SCANNED RESULT 08/11/2023 documented in this encounter Results * EKG SCANNED RESULT (08/11/2023) 08/11/2023 No Physician Data Unknown EKG documented in this encounter Advance Directives Latest [...] and were consensually agreed upon. Care Teams Fourth Mate Relationship Specialty Start Date End Date Nancy Ryan DO [address] [place] [address] [place] [address] PCP - General Internal Medicine 09/11/18 documented as of this encounter
--- OUTSIDE RECORDS SUMMARY | 2023-11-13 21:37 | External Medical Summary | Summary of Care ---
Author Name Unknown Organization [facility] Address [address] [place] [address] Phone [phone] Care Team Providers Care Vehicle Operator Name Role Phone Ryan Nancy Muro Primary Care Provider [phone] Reason for Visit * Reason Onset Date Comments Other 08/13/2023 Encounter Details Date Type Department Care Team (Late st Contact Info) Description 08/13/2023 Telephone Pharmacy, [address] [place] [address] [place] [address] Other Allergies No known active allergiesdocumented as of this encounter (statuses as of 08/13/2023) Medications Medication Sig Dispensed Refills Start Date End Date Status MULTIPLE VITAMIN PO TABS 1 TABLET DAILY 0 07/03/2011 Active OMEGA-3 FISH OIL 1000 MG PO CAPS Take one capsule by mouth daily 0 07/03/2011 Active Blood Glucose Monitoring Suppl ([employer] ULTRA SYSTEM) W/DEVICE KITIndications:DM type 2, goal [...] long-term current use of insulin ([facility]),Type 2 diabetes mellitus with hemoglobin A1c goal of less than 7.0% ([facility]) Use once a day with basaglar. DX e11.9 100 Each 3 10/17/2021 Active Rhopressa 0.02 % Ophthalmic Solution Instill 1 Drop into the left eye at bedtime. 0 05/17/2022 Active Vitamin C 1000 MG Oral Tablet Take 1 Tablet by mouth in the morning. 0 Active Warfarin Sodium 5 MG Oral Tablet (Coumadin)Indicati ons:History of DVT (deep vein thrombosis),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 management encounter,alf current use of anticoagulant therapy Take 5 [...] long-term current use of insulin ([facility]) Inject 48 Units under the skin in [...] long-term current use of insulin ([facility]) Use TWICE a day to test glucose [...] long-term current use of insulin ([facility]) Take 1 Tablet by mouth 2 times [...] the morning. 0 06/04/2023 Active Epoetin Gautam-epbx 64518 UNIT/ML Injection Solution (Retacrit) Inject 2 mL [...] Diabetes Taxonomy. 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 Advised that we have been giving 10612 units every other week fora hemoglobin less than 11. I advised her to tell his hospitalist while he is inpatient and to call us if this isn't possible so we can schedule him for lab/injection once he is discharged. She verbalized understanding. * Telephone Encounter - Jena Haas RP - 08/13/2023 10:42 AM EST Patient Phone Numbers Attempted to contact spouse, no answer. Called and spoke with hospital directory, confirmed patient still currently admitted at [facility]. Call placed to f/u on discharge. Routing to hematology to advise on Procrit. Jena Haas RP, PharmD Clinical Pharmacist - Management Lecturer Medication [facility] 08/13/2023, 10:43 AM [phone] * Telephone Encounter - Graciela Mack OSA - 08/13/2023 8:56 AM EST Caller's name: Lisa Robertson call back number(OFFICE NUMBER FOR ): [phone] Reason for call: Pts calling to let [facility] know pt is in the [facility] currently and she is asking if or what she should do about the procrit. Please advise and return her call. Thank you, Graciela Mack Acid Painter [facility] 08/13/2023,8:56 AM documented in this encounter Plan of Treatment Upcoming Encounters Date Type Department Care Team (Late st Contact Info) Description 08/14/2023 10:30 AM EST Immunization/Injection Hematology/Oncolog y Treatment, [place] [address] [place] [address] Nurse, [facility] [address] 08/14/2023 5:10 PM EST 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 Pharmacy, [address] [place] [address] [place] [address] 09/02/2023 1:00 PM EST [facility] [address] [place] [address] Mika Diaz DO [address] [place] [address] 09/20/2023 8:50 AM EST Office Visit Family Medicine [address] [place] [phone] [place] [address] 10/01/2023 9:00 AM EST Office Visit Cardiology [address] [place] [address] Prabhakar Henning PA-C [address] [place] [address] 10/15/2023 1:45 PM EST Office Visit Hematology/Oncolog y [facility] [place] [address] [place] [address] Fly Velazquez MD [address] [place] [address] 10/23/2023 10:00 AM EDT Office Visit Sleep Disorders Ctr Manny Browne, [place] [address] [place] [phone] Dorothy Toscano CRNP [address] [place] [address] 12/25/2023 2:00 PM EDT Office Visit Nephrology, [place] [address] [place], [place] [address] ZemaitisBeckie PA-C [address] [place] [address] Scheduled Procedures Name Priority Associated Diagnoses Date/Ti [...] Additional history exists CKD PHOS USE SMARTSET 22983 09/18/2023 02/0 02/2023, 08/29/2021, 08/02/2020, Additional history exists Diabetic Eye Exam 10/09/2023 10/09/2022, , 06/12/2022, Additional history exists HbA1c 01/14/2024 07/15/2023, 08/0 03/2023, 09/18/2022, Additional history exists GFR 01/28/2024 07/29/2023, 12/0 11/2022, 06/17/2023, Additional history exists Albumin/Creatinine Ratio 02/20/2024 023, 03/14/2022, 05/19/2021, Additional history exists CKD HGB USE SMARTSET 45392 07/29/202407/29, 07/29/2023, 07/15/2023, Additional history exists COLONOSCOPY-EVERY [...] this encounter Medical Devices Implanted Type Area Senior Research Fellow Device Identifier Shelf Expiration Date Model / Serial / Lot Envista Hydrophobic Acrylic Intraocular Lens Implanted:Qty: 1 on 12/25/2016 by Raul Neely MD at OR [facility] Right: Eye [employer] 11/09/2018 [id number] / [id number] / [id number] Envista Mx60 +10.0 D Implanted:Qty: 1 on 01/29/2017 by Raul Neely MD at OR [facility] Left: Eye 11/09/2018 [id number] / [id number] / [id number] documented as of this encounter Advance Directives [...] and were consensually agreed upon. Care Teams Vehicle Operator Relationship Specialty Start Date End Date Nancy Ryan DO [address] [place] [address] [place] [address] PCP - General Internal Medicine 09/11/18 documented as of this encounter
--- OUTSIDE RECORDS SUMMARY | 2023-11-13 21:37 | External Medical Summary | Summary of Care ---
Author Name Unknown Organization [facility] Address [address] [place] [address] Phone [phone] Care Team Providers Care Ski Binding Fitter And Repairer Name Role Phone Ryan Nancy Muro Primary Care Provider Reason for Visit * Reason Onset Date Comments Medication Refill 08/07/2023 Encounter Details Date Type Department Care Team (Late st Contact Info) Description 08/07/2023 Refill NephrologyEn [address] [place] [address] Juliet Gunter MD [address] [place] [address] Allergies No known active allergiesdocumented as of this encounter (statuses as of 08/08/2023) Medications Medication Sig Dispensed Refills Start Date End Date Status MULTIPLE VITAMIN PO TABS 1 TABLET DAILY 0 1 Active OMEGA-3 FISH OIL 1000 MG PO CAPS Take one capsule by mouth daily 0 1 Active Blood Glucose Monitoring Suppl ([employer] ULTRA SYSTEM) W/DEVICE KITIndications:DM type 2, goal [...] of DVT (deep vein thrombosis),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 management encounter,USP 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 0 3 Active Epoetin Gautam-epbx 61040 UNIT/ML Injection Solution (Retacrit) Inject 2 mL [...] the morning. 90 Tablet 3 3 Active Chlorthalidone 25 MG Oral Tablet (Hygroton) Take 1 Tablet by mouth in the morning. 0 08/07/20 23 Discontinu ed(Refill) Hospital, Clinic, or Other Facility [...] as of this encounter (statuses as of 08/08/2023) Active Problems Problem Noted Date Diagnosed Date [...] Diabetes Taxonomy. 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 of inactive term USP current use of anticoagulant therapy 0 03/16/2005 Overview: 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 of inactive term SPENCER (obstructive sleep apnea) 06/11/2001 Overview: CPAP 11 cwp? AHP Gout of wrist documented as of this encounter (statuses as of 08/08/2023) Resolved Problems Problem Noted Date Diagnosed Date [...] as of this encounter (statuses as of 08/08/2023) Immunizations Name Administration Dates Next Due COVID-19 mRNA, LNP-s, No Pre serve, 2-Dose Series ([employer]) 06/20/2021,10/22/2020,09/26/2020 COVID-19, LNP-s, No Preserve , Jamie-sucrose, Ages 12+ (Pfizer) 03/13/2022 Covid-19, Mrna, Lnp-s, Pf, B ivalent, 30 Mcg, IM, 12 yrs and above (Pfizer) 09/20/2022 Pneumococcal Conjugate Vacci ne, 20-valent ([id number]) 03/14/2022 Pneumococcal Polysaccharide PPV23 (Pneumovax) 03/19/2006 Seasonal [...] Telephone Encounter - Juliet Gunter MD - 08/08/2023 4:14 PM ESTSigned Prescriptions: Disp Refills Chlorthalidone 25 MG Oral Tablet (Hygroton)90 Tab*3 Sig: Take 1 Tablet by mouth in the morning. Authorizing Provider: JULIET GUNTER * Telephone Encounter - Meg Whitney OSA - 08/07/2023 2:26 PM EST Did you pend patient's preferred pharmacy and medication before forwarding?yes Pharmacy: [id number] Pending Prescriptions: Disp Refills Chlorthalidone 25 MG Oral Tablet (Hygroto*90 Tab*3 Sig: Take 1 Tablet by mouth in the morning. Last Visit: 06/06/2023 (in office), Visit date not found (telemedicine) Next Visit: 12/25/2023 If no future appointments scheduled, and last appointment is greater than a year ago, please schedule patient for a follow-up appointment Last date the medication was ordered: Is this request for a controlled substance?No [...] Description 08/13/2023 9:00 AM EST Laboratory Laboratory [address] [place] [phone] [address] [place] [address] 08/13/2023 5:30 PM EST 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 Pharmacy, [address] [place] [address] [place] [address] 08/14/2023 10:30 AM EST Immunization/Injection Hematology/Oncolog y Treatment, [place] [address] [facility] [address] [facility], [facility] [address] 09/02/2023 1:00 PM EST Office Visit Ophthalmology, [facility] [address] [place] [address] Mika Diaz, [address] [place] [address] 09/20/2023 8:50 AM EST Office Visit Family Medicine [address] [place] [phone] Nancy Ryan[address] [place] [address] 10/01/2023 9:00 AM EST Office Visit Cardiology [address] [place] [address] Prabhakar Henning PA-C [address] [place] [address] 10/15/2023 1:45 PM EST Office Visit Hematology/Oncolog y [facility] [place] [address] [facility] [address] [place] [address] Fly Velazquez MD [address] [place] [address] 10/23/2023 10:00 AM EDT Office Visit Sleep Disorders Ctr Manny Browne, [place] [address] [place] [phone] Dorothy Toscano CRNP [address] [place] [address] 12/25/2023 2:00 PM EDT Office Visit Nephrology, [facility] [address] [place] [address] ZemaBeckie umanzor PADarron 200 [facility] [place] [address] Scheduled Procedures Name Priority Associated Diagnoses Date/Ti [...] Additional history exists CKD PHOS USE SMARTSET 36928 09/18/2023 020 02/2023, 08/29/2021, 08/02/2020, Additional history exists Diabetic Eye Exam 10/09/2023 10/09/2022, , 06/12/2022, Additional history exists HbA1c 01/14/2024 07/15/2023, 080 03/2023, 09/18/2022, Additional history exists GFR 01/28/2024 07/29/2023, 120 11/2022, 06/17/2023, Additional history exists Albumin/Creatinine Ratio 02/20/2024 023, 03/14/2022, 05/19/2021, Additional history exists CKD HGB USE SMARTSET 92802 07/29/202407/29, 07/29/2023, 07/15/2023, Additional history exists COLONOSCOPY-EVERY [...] this encounter Medical Devices Implanted Type Area Welt Trimming Machine Operator Device Identifier Shelf Expiration Date Model / Serial / Lot Envista Hydrophobic Acrylic Intraocular Lens Implanted:Qty: 1 on 12/25/2016 by Raul Neely MD at OR [facility] Right: Eye [employer] 11/09/2018 [id number] / [id number] / [id number] Envista Mx60 +10.0 D Implanted:Qty: 1 on 01/29/2017 by Raul Neely MD at OR [facility] Left: Eye 11/09/2018 [id number] / [id number] / [id number] documented as of this encounter Advance Directives [...] and were consensually agreed upon. Care Teams Ski Binding Fitter And Repairer Relationship Specialty Start Date End Date Nancy Ryan DO [address] [place] [address] [place] [id number] PCP - General Internal Medicine 09/11/18 documented as of this encounter
--- OUTSIDE RECORDS SUMMARY | 2023-11-13 21:37 | External Medical Summary | Summary of Care ---
Author Name Unknown Organization [facility] Address [address] [place] [address] Phone [phone] Care Team Providers Care Diet Counselor Name Role Phone RyanLacyNancyraheem Muro Primary Care Provider [phone] Reason for Visit * Reason Onset Date Comments Remote Patient Monitoring Alert 08/08/2023 Encounter Details Date Type Department Care Team (Late st Contact Info) Description 08/08/2023 Home Monitoring Care Coordination [address] [place], [place] [id number] Gaby Willis LPN HTN, goal below 140/90* Allergies No known active allergiesdocumented as of this encounter (statuses as of 08/08/2023) Medications Medication Sig Dispensed Refills Start Date End Date Status MULTIPLE VITAMIN PO TABS 1 TABLET DAILY 0 07/03/2011 Active OMEGA-3 FISH OIL 1000 MG PO CAPS Take one capsule by mouth daily 0 07/03/2011 Active Blood Glucose Monitoring Suppl ([employer] ULTRA SYSTEM) W/DEVICE KITIndications:DM type 2, goal [...] with long-term current use of insulin ([facility]),Type 2 diabetes mellitus with hemoglobin A1c goal [...] of DVT (deep vein thrombosis),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 management 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,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 Take [...] with long-term current use of insulin ([facility]) Inject 48 Units under the skin in [...] with long-term current use of insulin ([facility]) Use TWICE a day to test glucose Diagnosis = E11.9 200 Each 3 03/19/2023 Active Ozempic (2 MG/DOSE) 8 MG/3ML Subcutaneous Solution Pen-injector (Semaglutide (2 MG/DOSE))Indicatio ns:Type 2 diabetes mellitus with diabetic neuropathy, with long-term current use of insulin ([facility]) Inject 2 mg under the skin once [...] with long-term current use of insulin ([facility]) Take 1 Tablet by mouth 2 times [...] the morning. 0 06/04/2023 Active Epoetin Gautam-epbx 88398 UNIT/ML Injection Solution (Retacrit) Inject 2 mL [...] Overview: Non-obstructive. Noted on CT scan at [facility] 05/2019 Mild nonproliferative diabet ic retinopathy [...] mRNA, LNP-s, No Pre serve, 2-Dose Series ([employer]) 06/20/2021,10/22/2020,09/26/2020 COVID-19, LNP-s, No Preserve , Jaime-sucrose, Ages 12+ (Pfizer) 03/13/2022 Covid-19, Mrna, Lnp-s, Pf, B ivalent, 30 Mcg, IM, 12 yrs and above ([employer]) 09/20/2022 Pneumococcal Conjugate Vacci ne, 20-valent ([id number]) 03/14/2022 Pneumococcal Polysaccharide PPV23 (Pneumovax) 03/19/2006 Seasonal [...] this encounter Progress Notes * Jena Haas, [facility] - 08/08/2023 1:40 PM EST Systolic Diastolic Pulse Systolic Diastolic 149 81 Average 141 75 140 71 136 79 High 81 81 152 72 Low 66 66 132 66 137 79 Range 15 15 Count 6 6 BP averages continuing to improve. Due for updated BMP beginning of August. Will defer further changes until lab work is obtained. Current Hypertension Medications: Torsemide 20mg daily Losartan 50mg 1/2 tablet daily Carvedilol 6.25mg BID Chlorthalidone 25mg daily Amlodipine 2.5mg daily Jena Haas [facility], PharmD Clinical Pharmacist - Parts Cataloger Medication Therapy [facility] 08/08/2023, 1:41 PM [phone] * Gaby Willis LPN - 08/08/2023 11:50 AM EST Ronnie Wu [phone] Ronnie Teran Ohchevy is currently participating in the [employer] Hypertension Management Program and had areading on 08/08/2023 of 149/81. Pt has alerted for an Average BP [...] Description 08/13/2023 9:00 AM EST Laboratory Laboratory [address] [place] [phone] [address] [place] [address] 08/13/2023 5:30 PM EST 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 Pharmacy, [address] [place] [address] [place] [address] 08/14/2023 10:30 AM EST Immunization/Injection Hematology/Oncolog y Treatment, [place] 200 [facility] [place] [address] Nurse, Med 200 [facility] [place] [address] 09/02/2023 1:00 PM EST Office Visit Ophthalmology, [facility] [address] [place] [address] Mika Diaz DO [address] [place] [address] 09/20/2023 8:50 AM EST Office Visit Family Medicine [address] [place] [phone] [address] [place] [address] 10/01/2023 9:00 AM EST Office Visit Cardiology [address] [place] [address] Prabhakar Henning PADarron [address] [place] [address] 10/15/2023 1:45 PM EST Office Visit Hematology/Oncolog y [facility] Jordana [place] [address] [place] [address] Fly Velazquez MD [address] [place] [address] 10/23/2023 10:00 AM EDT Office Visit Sleep Disorders [facility] [address] [place] [phone] Dorothy Toscano CRNP [address] [place] [address] 12/25/2023 2:00 PM EDT Office Visit Nephrology, [place] 200 [facility] [place] [address] ZemaBeckie umanzor PA-C 200 [facility] [place] [address] Scheduled Procedures Name Priority Associated Diagnoses Date/Ti [...] Additional history exists CKD PHOS USE SMARTSET 56974 09/18/202302/2023, 08/29/2021, 08/02/2020, Additional history exists Diabetic Eye Exam 10/09/2023 10/09/2022, , 06/12/2022, Additional history exists HbA1c 01/14/2024 07/15/2023, 0803/2023, 09/18/2022, Additional history exists GFR 01/28/2024 07/29/2023, 1211/2022, 06/17/2023, Additional history exists Albumin/Creatinine Ratio 02/20/2024 023, 03/14/2022, 05/19/2021, Additional history exists CKD HGB USE SMARTSET 41243 07/29/202407/29, 07/29/2023, 07/15/2023, Additional history exists COLONOSCOPY-EVERY [...] this encounter Medical Devices Implanted Type Area Insurance Attorney Device Identifier Shelf Expiration Date Model / Serial / Lot Envista Hydrophobic Acrylic Intraocular Lens Implanted:Qty: 1 on 12/25/2016 by Raul Neely MD at OR [facility] Right: Eye [employer] 11/09/2018 [id number] / [id number] / [id number] Envista Mx60 +10.0 D Implanted:Qty: 1 on 01/29/2017 by Raul Neely MD at OR [facility] Left: Eye 11/09/2018 [id number] / [id number] / [id number] documented as of this encounter Visit Diagnoses Diagnosis HTN, goal below 140/90- Primary Unspecified essential hypertension documented in this [...] and were consensually agreed upon. Care Teams Diet Counselor Relationship Specialty Start Date End Date Nancy Ryan DO [address] [place] [address] [place] [phone] PCP - General Internal Medicine 09/11/18 documented as of this encounter
--- OUTSIDE RECORDS SUMMARY | 2023-11-13 21:37 | External Medical Summary | Summary of Care ---
Author Name Unknown Organization [facility] Address [address] [place] [address] Phone [phone] Care Team Providers Care Loss Mitigation Specialist Name Role Phone RyanNancy martinez Primary Care Provider [phone] Reason for Visit * Reason Onset Date Comments Order Request 07/30/2023 Encounter Details Date Type Department Care Team (Late st Contact Info) Description 07/30/2023 Telephone Pharmacy, [address] [place] [address] [facility] 200 [facility] [address] Order Request Allergies No known active allergiesdocumented as of this encounter (statuses as of 08/01/2023) Medications Medication Sig Dispensed Refills Start Date End Date Status MULTIPLE VITAMIN PO TABS 1 TABLET DAILY 0 07/03/2011 Active OMEGA-3 FISH OIL 1000 MG PO CAPS Take one capsule by mouth daily 0 07/03/2011 Active Blood Glucose Monitoring Suppl ([employer] ULTRA SYSTEM) W/DEVICE KITIndications:DM type 2, goal [...] of insulin ([facility]),Type 2 diabetes mellitus with hemoglobin A1c goal of less than 7.0% ([facility]) Use once a day with basaglar. DX e11.9 100 Each 3 10/17/2021 Active Rhopressa 0.02 % Ophthalmic Solution Instill 1 Drop into the left eye at bedtime. 0 05/17/2022 Active Vitamin C 1000 MG Oral Tablet Take 1 Tablet by mouth in the morning. 0 Active Warfarin Sodium 5 MG Oral Tablet (Coumadin)Indicati ons:History of DVT (deep vein thrombosis),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 management encounter,intermediate current use of anticoagulant therapy Take 5 [...] of insulin ([facility]) Inject 48 Units under the skin in [...] of insulin ([facility]) Use TWICE a day to test [...] of insulin ([facility]) Take 1 Tablet by mouth 2 [...] the morning. 0 06/04/2023 Active Epoetin Gautam-epbx 53606 UNIT/ML Injection Solution (Retacrit) Inject 2 mL [...] Diabetes Taxonomy. 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 0 [...] mRNA, LNP-s, No Pre serve, 2-Dose Series ([employer]) 06/20/2021,10/22/2020,09/26/2020 COVID-19, LNP-s, No Preserve , Jamie-sucrose, Ages 12+ ([employer]) 03/13/2022 Covid-19, Mrna, Lnp-s, Pf, B ivalent, 30 Mcg, IM, 12 yrs and above (Pfizer) 09/20/2022 Pneumococcal Conjugate Vacci ne, 20-valent ([id number]) 03/14/2022 Pneumococcal Polysaccharide PPV23 (Pneumovax) 03/19/2006 Seasonal [...] encounter Miscellaneous Notes * Addendum Note - Parag Mendez LPN - 08/01/2023 4:17 PM ESTAddended by: PARAG MENDEZ on: 08/01/2023 04:17 PM Modules accepted: Orders * Telephone Encounter - Parag Mendez LPN - 08/01/2023 4:14 PM EST Unable to reach pt by phone. Left message on voice mail, MyG sent, BMP order placed. * Telephone Encounter - Alejandrina Sims MD [...] Jena Haas RPh, PharmD Clinical Pharmacist - Key Account Coordinator Medication Therapy Disease Management [facility] 07/31/2023, 4:04 PM [phone] * Telephone Encounter - Alejandrina Sims MD [...] daily * Telephone Encounter - Jena Haas [facility] - 07/30/2023 4:43 PM EST Patient started [...] on additional recommendations Jena Haas [facility], PharmD Clinical Pharmacist - Key Account Coordinator Medication Therapy Disease Management [facility] 07/30/2023, 4:44 PM [phone] documented in this encounter Plan of Treatment Upcoming Encounters Date Type Department Care Team (Late st Contact Info) Description 08/13/2023 9:00 AM EST Laboratory Laboratory [address] [place] [phone] [address] [place] [address] 08/13/2023 5:30 PM EST 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 Pharmacy, [address] [place] [address] [place] [address] 08/14/2023 10:30 AM EST Immunization/Injection Hematology/Oncolog y Treatment, [place] [facility] [address] [facility] [address] 09/02/2023 1:00 PM EST Office Visit Ophthalmology, [facility] [address] [place] [address] Mika Diaz, [address] [place] [address] 09/20/2023 8:50 AM EST Office Visit Family Medicine [address] [place] [phone] [place] [address] 10/01/2023 9:00 AM EST Office Visit Cardiology [address] [place] [address] Prabhakar Henning PAJoseC [address] [place] [address] 10/15/2023 1:45 PM EST Office Visit Hematology/Oncolog y [facility] 200 [facility] [place] [address] Fly Velazquez MD 200 [facility] [place] [address] 10/23/2023 10:00 AM EDT Office Visit Sleep Disorders [facility] [address] [place] [phone] Dorothy Toscano CRNP [address] [place] [address] 12/25/2023 2:00 PM EDT Office Visit Nephrology, [facility] [address] [place] [address] ZeBeckie cruz PA-C 200 [facility] [place] [address] Scheduled Orders Name Type Priority Associated Diagnoses Orde r Schedule BASIC METABOLIC PANEL Lab Routine Hypertension Expected: 08/14/2023 (Approximate), Expires: 08/01/2024 Scheduled Procedures Name Priority Associated Diagnoses Date/Ti me COLONOSCOPY FLEXIBLE PROXIMAL DIAGNOSTIC Recall History of colon polyps Health Maintenance Due Date Last Done Comments Hepatitis B (1 of 3 - Risk 3-dose series) 2017 Depression Screening 01/28/2021 01/29/2020 DXA Scan 12/14/2022 12/14/2021 Diabetic Foot Exam 03/14/2023 03/14/2022, 0 11/30/2015, 11/09/2014, Additional history exists COVID-19 Vaccine (24 season) 2023 09/20/2022, 03/13/2022, 06/20/2021, Additional history exists CKD PHOS USE SMARTSET 81803 09/18/2023 02/0 02/2023, 08/29/2021, 08/02/2020, Additional history exists Diabetic Eye Exam 10/09/2023 10/09/2022, , 06/12/2022, Additional history exists HbA1c 01/14/2024 07/15/2023, 080 03/2023, 09/18/2022, Additional history exists GFR 01/28/2024 07/29/2023, 11/2022, 06/17/2023, Additional history exists Albumin/Creatinine Ratio 02/20/2024 023, 03/14/2022, 05/19/2021, Additional history exists CKD HGB USE SMARTSET 73626 07/29/202407/29, 07/29/2023, 07/15/2023, Additional history exists COLONOSCOPY-EVERY [...] this encounter Medical Devices Implanted Type Area Cold Header Operator Device Identifier Shelf Expiration Date Model / Serial / Lot Envista Hydrophobic Acrylic Intraocular Lens Implanted:Qty: 1 on 12/25/2016 by Raul Neely MD at OR [facility] Right: Eye [employer] 11/09/2018 [id number] / [id number] / [id number] Envista Mx60 +10.0 D Implanted:Qty: 1 on 01/29/2017 by Raul Neely MD at OR [facility] Left: Eye 11/09/2018 [id number] / [id number] / [id number] documented as of this encounter Visit Diagnoses Diagnosis Hypertension- Primary Unspecified essential hypertension documented in this [...] and were consensually agreed upon. Care Teams Loss Mitigation Specialist Relationship Specialty Start Date End Date Nancy Ryan DO [address] [place] [address] [place] [phone] PCP - General Internal Medicine 09/11/18 documented as of this encounter
--- OUTSIDE RECORDS SUMMARY | 2023-11-13 21:37 | External Medical Summary ---
Author Name Unknown Address Unknown Organization K01:[place] [place] [address] [place] [address] Laboratory Report Ordering Provider Test Date Status MIRYAM BRANNON 07/29/2023 09:15:42 Final Warfarin Therapy
INR: 2 .0-3.0 conventional anticoagulation
INR: 2.5- 3.5 high intensity anticoagulation Observation Date Value Abnormality Reference (Units ) Status PT 07/29/2023 09:15:42 41.6 Above high normal 11 .6-15.2 (seconds) Final INR 07/29/2023 09:15:42 4.3 Above high normal 0. 8-1.2 Final Performing Location [facility] [place] [address] [place] [address]
--- OUTSIDE RECORDS SUMMARY | 2023-11-13 21:37 | External Medical Summary | Summary of Care ---
Author Name Unknown Organization [facility] Address [address] [place] [address] Phone [phone] Care Team Providers Care Research And Evaluation Analyst Name Role Phone Nancy Ryan DO Primary Care Provider Reason for Visit * Reason Comments Medication Administration Procrit * Episode Based Medications (Routine) - Authorized Specialty Diagnoses / Procedures Referred By Contac t Referred To Contact Diagnoses Anemia due to stage 3a chronic kidney disease Procedures [place] INJ RETACRIT NON-ESRD USE Tameka Pires CRNP [address] [facility] [place] [address] Anc Hem/Onc [place] DEPT CLOSED - 06/25/[address] [place] [address] Referral ID Status Reason Start Date Expiration Date V isits Requested Visits Authorized [id number] Authorized 04/01/2023 12/23/2023 [id number] Encounter Details Date Type Department Care Team (Late st Contact Info) Description 07/30/2023 10:30 AM EST Immunization/I njection Hematology/Oncology Treatment, [place] [address] [place] [address] Nurse, Med [address] [place] [address] [address] Anemia due to stage 3a chronic kidney disease * Allergies No known active allergiesdocumented as of this encounter (statuses as of 07/30/2023) Medications Medication Sig Dispensed Refills Start Date End Date Status MULTIPLE VITAMIN PO TABS 1 TABLET DAILY 0 07/03/2011 Active OMEGA-3 FISH OIL 1000 MG PO CAPS Take one capsule by mouth daily 0 07/03/2011 Active Blood Glucose Monitoring Suppl ([employer] SYSTEM) W/DEVICE KITIndications:DM type 2, goal A1c [...] insulin ([facility]) Use TWICE a day to test [...] the morning. 0 06/04/2023 Active Epoetin Gautam-epbx 78044 UNIT/ML Injection Solution (Retacrit) Inject 2 mL [...] as of this encounter (statuses as of 07/30/2023) Active Problems Problem Noted Date Diagnosed Date [...] as of this encounter (statuses as of 07/30/2023) Resolved Problems Problem Noted Date Diagnosed Date [...] as of this encounter (statuses as of 07/30/2023) Immunizations Name Administration Dates Next Due COVID-19 mRNA, LNP-s, No Pre serve, 2-Dose Series ([employer]) 06/20/2021,10/22/2020,09/26/2020 COVID-19, LNP-s, No Preserve , Jamie-sucrose, Ages 12+ (Pfizer) 03/13/2022 Covid-19, Mrna, Lnp-s, Pf, B ivalent, 30 Mcg, IM, 12 yrs and above (Pfizer) 09/20/2022 Pneumococcal Conjugate Vacci ne, 20-valent ([id number]) 03/14/2022 Pneumococcal Polysaccharide PPV23 (Pneumovax) 03/19/2006 Seasonal [...] Sign Reading Time Taken Comments Blood Pressure 148/74 07/30/2023 10:52 AM EST Pulse 80 07/30/2023 10:48 AM EST Temperature - - Respiratory Rate - - Oxygen Saturation - - Inhaled Oxygen Concentration - - Weight - - Height - - Body Mass Index - - documented in this encounter Nursing Notes * Pat Trent LPN - 07/30/2023 11:31 AM EST Pt arrived for Procrit injection. Hgb 9.5. Administered in MARLENE. Pt tolerated well. BP WNL. Pt to return in 2 weeks. Discharged in stable condition. documented in this encounter Plan of Treatment Upcoming Encounters Date Type Department Care Team (Late st Contact Info) Description 08/13/2023 9:00 AM EST Laboratory Laboratory [address] [place] [phone] [place] [address] 08/14/2023 10:30 AM EST Immunization/Injecti on Hematology/Oncology Treatment, [place] [address] [place] [address] Nurse, Med 4 [address] [facility] [address] 09/02/2023 1:00 PM EST Office Visit Ophthalmology, [facility] [address] [place] [address] Mika Diaz, DO [address] [place] [address] 09/20/2023 8:50 AM EST Office Visit Family Medicine [address] [place] [phone] Nancy [address] [place] [address] 10/01/2023 9:00 AM EST Office Visit Cardiology [address] [place] [address] Prabhakar Henning PA-C [address] [place] [address] 10/15/2023 1:45 PM EST Office Visit Hematology/Oncology [facility] 200 [facility] [place] [address] Fly Velazquez MD 200 [facility] [place] [address] 10/23/2023 10:00 AM EDT Office Visit Sleep Disorders [facility] [address] [place] [phone] Dorothy Toscano CRNP [address] [place] [address] 12/25/2023 2:00 PM EDT Office Visit Nephrology, [facility] [address] [place] [address] ZemaBeckie umanzor PA-C 200 [facility] [place] [address] Scheduled Procedures Name Priority Associated Diagnoses Date/Ti [...] Additional history exists CKD PHOS USE SMARTSET 80260 09/18/2023 02/0 02/2023, 08/29/2021, 08/02/2020, Additional history exists Diabetic Eye Exam 10/09/2023 10/09/2022, , 06/12/2022, Additional history exists HbA1c 01/14/2024 07/15/2023, 080 03/2023, 09/18/2022, Additional history exists GFR 01/28/2024 07/29/2023, 1211/2022, 06/17/2023, Additional history exists Albumin/Creatinine Ratio 02/20/2024 023, 03/14/2022, 05/19/2021, Additional history exists CKD HGB USE SMARTSET 78297 07/29/202407/29, 07/29/2023, 07/15/2023, Additional history exists COLONOSCOPY-EVERY [...] this encounter Medical Devices Implanted Type Area Dental Laboratory Manager Device Identifier Shelf Expiration Date Model / Serial / Lot Envista Hydrophobic Acrylic Intraocular Lens Implanted:Qty: 1 on 12/25/2016 by Raul Neely MD at OR [facility] Right: Eye [employer] 11/09/2018 [id number] / [id number] / [id number] Envista Mx60 +10.0 D Implanted:Qty: 1 on 01/29/2017 by Raul Neely MD at OR [facility] Left: Eye 11/09/2018 [id number] / [id number] / [id number] documented as of this encounter Visit Diagnoses Diagnosis Anemia due to stage 3a chronic kidney disease- Primary documented in this encounter Administered Medications Inactive Administered Medications - up to 3 most recent administrations Medication Order MAR Action Action Date Dose Rate Site Epoetin Gautam 31743 UNIT/ML inj 40,000 Units 40,000 Units, Subcutaneous, ONCE, On Sat07/30/23 at 1130, For 1 dose Given 07/30/2023 10:54 AM EST 40,000 Units Arm Right Upper documented [...] and were consensually agreed upon. Care Teams Research And Evaluation Analyst Relationship Specialty Start Date End Date Nancy Ryan DO [address] [place] [address] [place] [phone] PCP - General Internal Medicine 09/11/18 documented as of this encounter
--- OUTSIDE RECORDS SUMMARY | 2023-11-13 21:37 | External Medical Summary | Summary of Care ---
Author Name Unknown Organization [facility] Address [address] [place] [address] Phone [phone] Care Team Providers Care Orthopedic Podiatrist Name Role Phone Nancy Ryan DO Primary Care Provider [phone] Reason for Visit * Reason Comments Dosage Adjustment Via Phone (anticoag Cl inic) Encounter Details Date Type Department Care Team (Latest Contact Info) Description 07/30/2023 7:00 AM EST 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 Pharmacy, [address] [place] [address] [place] [address] History of DVT (deep vein thrombosis)* Allergies No known active allergiesdocumented as of this encounter (statuses as of 07/30/2023) Medications Medication Sig Dispensed Refills Start Date End Date Status MULTIPLE VITAMIN PO TABS 1 TABLET DAILY 0 07/03/2011 Active OMEGA-3 FISH OIL 1000 MG PO CAPS Take one capsule by mouth daily 0 07/03/2011 Active Blood Glucose Monitoring Suppl (Ecometrica ULTRA SYSTEM) W/DEVICE KITIndications:DM type 2, goal [...] neuropathy, with long-term current use of insulin ([facility]),Type 2 diabetes mellitus with hemoglobin A1c goal of less than 7.0% ([facility]) Use once a day with basaglar. [...] neuropathy, with long-term current use of insulin ([facility]) Inject 48 Units under the skin [...] neuropathy, with long-term current use of insulin ([facility]) Use TWICE a day to test [...] the morning. 0 06/04/2023 Active Epoetin Gautam-epbx 05374 UNIT/ML Injection Solution (Retacrit) Inject 2 mL [...] CT scan at [facility] 05/2019 Mild nonproliferative diabet ic [...] Taxonomy. 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 Medication Therapy Disease Management - 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 Patient: Ronnie Jeffry Wu | : 1955 Subjective Contacts Type Contact Phone/Fax 07/30/2023 04:42 PM EST Phone (Outgoing) Ronnie Wu "Servando" (Self) [phone] (M) Spoke to Patient Patient-Reported Symptoms: Patient Findings Negatives: Signs/symptoms of thrombosis, Signs/symptoms of bleeding, Change in health, Change in alcohol use, Change in activity, Upcoming invasive procedure, Missed doses, Extra doses, Change in medications, Change in diet/appetite, Bruising Objective Current Warfarin Dose As of 07/30/2023 Warfarin maintenance plan: 5 mg (5 mg x 1) every day INR Result As of 07/30/2023 INR goal: 2.0-3.0 INR used for dosin.3 (07/29/2023) Assessment & Plan Warfarin Plan As of 07/30/2023 Full warfarin instructions: 07/30: Hold; 07/31: 2.5 mg; Otherwise 5 mg every day Next INR check: 08/13/2023 Repeat PT/INR in 2 week(s) Weekly dose: not changed Additional Dosing Information: Description Takes in AM Recent SDH due to trauma fall on 01/29 Jena Haas [facility] Clinical Pharmacist 07/30/2023, 4:37 PM documented in this encounter Plan of Treatment Upcoming Encounters Date Type Department Care Team (Late st Contact Info) Description 08/13/2023 9:00 AM EST Laboratory Laboratory [address] [place] [phone] [address] [place] [address] 08/13/2023 5:30 PM EST 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 Pharmacy, [address] [place] [address] [place] [address] 08/14/2023 10:30 AM EST Immunization/Injection Hematology/Oncolog y Treatment, [place] [address] [place] [address] Nurse, Med [address] [place] [address] 09/02/2023 1:00 PM EST Office Visit Ophthalmology, [facility] [address] [place] [address] Mika Diaz, DO [address] [place] [address] 09/20/2023 8:50 AM EST Office Visit Family Medicine [address] [place] [phone] Nancy Ryan[address] [place] [address] 10/01/2023 9:00 AM EST Office Visit Cardiology [address] [place] [address] Prabhakar Henning PAJoseC [address] [place] [address] 10/15/2023 1:45 PM EST Office Visit Hematology/Oncolog y [facility] [address] [place] [address] Fly Velazquez MD [address] [place] [address] 10/23/2023 10:00 AM EDT Office Visit Sleep Disorders Ctr [facility] [address] [place] [phone] Dorothy Toscano CRNP [address] [place] [address] 12/25/2023 2:00 PM EDT Office Visit Nephrology, [facility] [address] [place] [address] ZeBeckie cruz PAJoseC [address] [facility] [place] [address] Scheduled Procedures Name Priority Associated Diagnoses Date/Ti [...] Additional history exists CKD PHOS USE SMARTSET 28590 09/18/2023 020 02/2023, 08/29/2021, 08/02/2020, Additional history exists Diabetic Eye Exam 10/09/2023 10/09/2022, , 06/12/2022, Additional history exists HbA1c 01/14/2024 07/15/2023, 08/0 03/2023, 09/18/2022, Additional history exists GFR 01/28/2024 07/29/2023, 12/0 11/2022, 06/17/2023, Additional history exists Albumin/Creatinine Ratio 02/20/2024 023, 03/14/2022, 05/19/2021, Additional history exists CKD HGB USE SMARTSET 30029 07/29/202407/29, 07/29/2023, 07/15/2023, Additional history exists COLONOSCOPY-EVERY [...] this encounter Medical Devices Implanted Type Area Plier Worker Device Identifier Shelf Expiration Date Model / Serial / Lot Envista Hydrophobic Acrylic Intraocular Lens Implanted:Qty: 1 on 12/25/2016 by Raul Neely MD at OR [facility] Right: Eye [employer] 11/09/2018 [id number] / [id number] / [id number] Envista Mx60 +10.0 D Implanted:Qty: 1 on 01/29/2017 by Raul Neely MD at OR [facility] Left: Eye 11/09/2018 [id number] / [id number] documented as of this encounter Visit Diagnoses [...] and were consensually agreed upon. Care Teams Orthopedic Podiatrist Relationship Specialty Start Date End Date Nancy Ryan DO [address] [place] [address] [place] [address] PCP - General Internal Medicine 09/11/18 documented as of this encounter
--- OUTSIDE RECORDS SUMMARY | 2023-11-13 21:38 | External Medical Summary | Summary of Care ---
Author Name Unknown Organization [facility] Address [address] [place] [address] Phone [phone] Care Team Providers Care Nurse Technician Name Role Phone Lacy Ryanraheem Muro Primary Care Provider Reason for Visit * Reason Onset Date Comments Home Monitoring Alarm 07/23/2023 Encounter Details Date Type Department Care Team (Late st Contact Info) Description 07/23/2023 Home Monitoring Care Coordination [address] [place] [address] Diane Hernandez LPN HTN, goal below 130/80* Allergies No known active allergiesdocumented as of this encounter (statuses as of 07/23/2023) Medications Medication Sig Dispensed Refills Start Date End Date Status MULTIPLE VITAMIN PO TABS 1 TABLET DAILY 0 07/03/2011 Active OMEGA-3 FISH OIL 1000 MG PO CAPS Take one capsule by mouth daily 0 07/03/2011 Active Blood Glucose Monitoring Suppl (Germin8 ULTRA SYSTEM) W/DEVICE KITIndications:DM type 2, goal A1c below 7 Use as directed 4 times a day. Use up to four times a day as directed. Diagnosis = E11.9 1 Kit 0 06/29/2015 Active dorzolamide-timolo l (COSOPT OCUMETER PLUS) 2.23-0.68% ophthalmic solution INSTILL 1 DROP INTO BOTH EYES BY OPHTHALMIC ROUTE ONCE IN THE [facility] AND THE SECOND DROP AROUND 5 [...] long-term current use of insulin ([facility]) Inject 48 Units under the skin in [...] long-term current use of insulin ([facility]) Inject 2 mg under the skin once [...] long-term current use of insulin ([facility]) Take 1 Tablet by mouth 2 times [...] the morning. 0 06/04/2023 Active Epoetin Gautam-epbx 75038 UNIT/ML Injection Solution (Retacrit) Inject 2 mL [...] as of this encounter (statuses as of 07/23/2023) Active Problems Problem Noted Date Diagnosed Date [...] Diabetes Taxonomy. 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 of inactive term custodial current use of anticoagulant therapy 0 03/16/2005 Overview: 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 of inactive term SPENCER (obstructive sleep apnea) 06/11/2001 Overview: CPAP 11 cwp? AHP Gout of wrist documented as of this encounter (statuses as of 07/23/2023) Resolved Problems Problem Noted Date Diagnosed Date [...] as of this encounter (statuses as of 07/23/2023) Immunizations Name Administration Dates Next Due COVID-19 mRNA, LNP-s, No Pre serve, 2-Dose Series (Digit Wireless) 06/20/2021,10/22/2020,09/26/2020 COVID-19, LNP-s, No Preserve , Jamie-sucrose, Ages 12+ (Pfizer) 03/13/2022 Covid-19, Mrna, Lnp-s, Pf, B ivalent, 30 Mcg, IM, 12 yrs and above ([employer]) 09/20/2022 Pneumococcal Conjugate Vacci ne, 20-valent ([id number]) 03/14/2022 Pneumococcal Polysaccharide PPV23 (Pneumovax) 03/19/2006 Seasonal [...] as of this encounter Progress Notes * Claritza Lewis, [facility] - 07/23/2023 1:03 PM EST Patient Phone Numbers Spoke to patient via phone. Reviewed chlorthalidone start on 07/16. Reviewed that bmp order in viblast system and that needs repeated prior to any changes despite elevated BP numbers at this time. Will await BMP repeat. Claritza Lewis, Pharm D, BCACP Clinical Pharmacist 07/23/2023, 1:07 PM * Diane Hernandez LPN - 07/23/2023 11:47 AM EST Ronnie Wu [phone] Ronnie Wu is currently participating in the [employer] Hypertension Management Program and had areading on 07/23/23 of 159/85. Pt has alerted for an Average BP [...] Description 07/29/2023 9:00 AM EST Laboratory Laboratory [address] [place] [phone] [address] [place] [address] 07/30/2023 7:00 AM EST 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 Pharmacy, [address] [place] [address] [place] [address] 07/30/2023 10:30 AM EST Immunization/Injection Hematology/Oncolog y Treatment, [place] [address] [place] [address] Nurse, Med 4 [address] [place] [address] 08/13/2023 9:00 AM EST Laboratory Laboratory [address] [place] [phone] [place] [address] 08/14/2023 10:30 AM EST Immunization/Injection Hematology/Oncolog y Treatment, [place] [address] [place] [address] Nurse, Med 4 [address] [place] [address] 09/02/2023 1:00 PM EST Office Visit Ophthalmology, [facility] [address] [place] [address] Mika Diaz DO [address] [place] [address] 09/20/2023 8:50 AM EST Office Visit Family Medicine [address] [place] [phone] [place] [address] 10/01/2023 9:00 AM EST Office Visit Cardiology [address] [place] [address] Prabhakar Henning PA-C [address] [place] [address] 10/15/2023 1:45 PM EST Office Visit Hematology/Oncolog y [facility] [address] [place] [address] Fly Velazquez MD [address] [place] [address] 10/23/2023 10:00 AM EDT Office Visit Sleep Disorders Ctr [facility] [place] [address] [place] [phone] Dorothy Toscano CRNP [address] [place] [address] 12/25/2023 2:00 PM EDT Office Visit Nephrology, [place] [address] [facility] [place] [address] ZemaBeckie umanzor PA-C [address] [place] [address] Scheduled Procedures Name Priority Associated Diagnoses Date/Ti [...] Additional history exists CKD PHOS USE SMARTSET 50051 09/18/202302/2023, 08/29/2021, 08/02/2020, Additional history exists Diabetic Eye Exam 10/09/2023 10/09/2022, , 06/12/2022, Additional history exists GFR 01/14/2024 07/15/2023, 01/2023, 06/03/2023, Additional history exists HbA1c 01/14/2024 07/15/2023, 03/2023, 09/18/2022, Additional history exists Albumin/Creatinine Ratio 02/20/2024 072 023, 03/14/2022, 05/19/2021, Additional history exists CKD HGB USE SMARTSET 89597 07/15/202407/15, 07/15/2023, 06/28/2023, Additional history exists COLONOSCOPY-EVERY [...] this encounter Medical Devices Implanted Type Area Retail Coordinator Device Identifier Shelf Expiration Date Model / Serial / Lot Envista Hydrophobic Acrylic Intraocular Lens Implanted:Qty: 1 on 12/25/2016 by Raul Neely MD at OR [facility] Right: Eye [employer] 11/09/2018 [id number] / [id number] / [id number] Envista Mx60 +10.0 D Implanted:Qty: 1 on 01/29/2017 by Raul Neely MD at OR [facility] Left: Eye 11/09/2018 [id number] / [id number] / [id number] documented as of this encounter Visit Diagnoses [...] and were consensually agreed upon. Care Teams Nurse Technician Relationship Specialty Start Date End Date Nancy Ryan DO [address] [place] [address] [place] [phone] PCP - General Internal Medicine 09/11/18 documented as of this encounter
--- OUTSIDE RECORDS SUMMARY | 2023-11-13 21:38 | External Medical Summary | Summary of Care ---
Author Name Unknown Organization [facility] Address [address] [place] [address] Phone [phone] Care Team Providers Care Mailroom Personnel Name Role Phone RyanNancy martinez Primary Care Provider [phone] Reason for Visit * Reason Onset Date Comments Medication Pre-auth 07/25/2023 Procrit Encounter Details Date Type Department Care Team (Late st Contact Info) Description 07/25/2023 Telephone Hematology/Oncology [place] [address] [place] [address] Fly Velazquez MD [address] [facility] [place] [address] Medication Pre-auth (Procrit) Allergies No known active allergiesdocumented as of this encounter (statuses as of 07/25/2023) Medications Medication Sig Dispensed Refills Start Date End Date Status MULTIPLE VITAMIN PO TABS 1 TABLET DAILY 0 07/03/2011 Active OMEGA-3 FISH OIL 1000 MG PO CAPS Take one capsule by mouth daily 0 07/03/2011 Active Blood Glucose Monitoring Suppl ([employer] ULTRA SYSTEM) W/DEVICE KITIndications:DM type 2, [...] DVT (deep vein thrombosis),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 0 06/04/2023 Active Epoetin Gautam-epbx 44531 UNIT/ML Injection Solution (Retacrit) Inject 2 mL [...] as of this encounter (statuses as of 07/25/2023) Active Problems Problem Noted Date Diagnosed Date [...] as of this encounter (statuses as of 07/25/2023) Resolved Problems Problem Noted Date Diagnosed Date [...] as of this encounter (statuses as of 07/25/2023) Immunizations Name Administration Dates Next Due COVID-19 mRNA, LNP-s, No Pre serve, 2-Dose Series ([facility]) 06/20/2021,10/22/2020,09/26/2020 COVID-19, LNP-s, No Preserve , Jamie-sucrose, Ages 12+ (Pfizer) 03/13/2022 Covid-19, Mrna, Lnp-s, Pf, B ivalent, 30 Mcg, IM, 12 yrs and above ([facility]) 09/20/2022 Pneumococcal Conjugate Vacci ne, 20-valent ([id number]) 03/14/2022 Pneumococcal Polysaccharide PPV23 (Pneumovax) 03/19/2006 Seasonal [...] encounter Miscellaneous Notes * Telephone Encounter - Celsa Patiño RN - 07/25/2023 4:41 PM EST Patient is scheduled for procrit on 07/30/2023, ordered by Dr Fly Velazquez. Precert referral has . Precert: please [...] Description 07/29/2023 9:00 AM EST Laboratory Laboratory [address] [place] [phone] [place] [address] 07/30/2023 7:00 AM EST 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 Pharmacy, [address] [place] [address] [place] [address] 07/30/2023 10:30 AM EST Immunization/Injection Hematology/Oncolog y Treatment, [place] [address] [facility] [place] [address] Nurse, Med 4 [address] [place] [address] 08/13/2023 9:00 AM EST Laboratory Laboratory [address] [place] [phone] [place] [address] 08/14/2023 10:30 AM EST Immunization/Injection [facility] [place] [facility] [address] [facility], Med 4 [address] [place] [address] 09/02/2023 1:00 PM EST Office Visit Ophthalmology, [address] [place] [address] Mika Diaz, DO [address] [place] [address] 09/20/2023 8:50 AM EST Office Visit Family Medicine [address] [place] [phone] [address] [place] [address] 10/01/2023 9:00 AM EST Office Visit Cardiology [address] [place] [address] Prabhakar Henning PAJoseC [address] [place] [address] 10/15/2023 1:45 PM EST Office Visit Hematology/Oncolog y [employer] [facility] [place] [facility] [place] [address] Fly Velazquez MD [address] [facility] [place] [address] 10/23/2023 10:00 AM EDT [facility] [address] [place] [phone] Dorothy Toscano CRNP [address] [place] [address] 12/25/2023 2:00 PM EDT Office Visit Nephrology, [facility] [address] [place] [address] ZemaitisBeckie PA-C [address] [facility] [place] [address] Scheduled Procedures Name Priority Associated Diagnoses Date/Ti [...] Additional history exists CKD PHOS USE SMARTSET 42249 09/18/2023 02/0 02/2023, 08/29/2021, 08/02/2020, Additional history exists Diabetic Eye Exam 10/09/2023 10/09/2022, , 06/12/2022, Additional history exists GFR 01/14/2024 07/15/2023, 110 01/2023, 06/03/2023, Additional history exists HbA1c 01/14/2024 07/15/2023, 08/0 03/2023, 09/18/2022, Additional history exists Albumin/Creatinine Ratio 02/20/2024 023, 03/14/2022, 05/19/2021, Additional history exists CKD HGB USE SMARTSET 23843 07/15/202407/15, 07/15/2023, 06/28/2023, Additional history exists COLONOSCOPY-EVERY [...] this encounter Medical Devices Implanted Type Area Cafeteria Supervisor Device Identifier Shelf Expiration Date Model / Serial / Lot Envista Hydrophobic Acrylic Intraocular Lens Implanted:Qty: 1 on 12/25/2016 by Raul Neely MD at OR [facility] Right: Eye [employer] 11/09/2018 [id number] / [id number] / [id number] Envista Mx60 +10.0 D Implanted:Qty: 1 on 01/29/2017 by Raul Neely MD at OR [facility] Left: Eye 11/09/2018 [id number] / [id number] / [id number] documented as of this encounter Advance Directives [...] and were consensually agreed upon. Care Teams Mailroom Personnel Relationship Specialty Start Date End Date Nancy Ryan DO [address] [place] [address] [place] [address] PCP - General Internal Medicine 09/11/18 documented as of this encounter
--- OUTSIDE RECORDS SUMMARY | 2023-11-13 21:38 | External Medical Summary | Summary of Care ---
Author Name Unknown Organization [facility] Address [address] [place] [address] Phone [phone] Care Team Providers Care Design Editor Name Role Phone RyanNancy martinez Primary Care Provider Reason for Visit * Reason Onset Date Comments Medication Pre-auth 07/25/2023 Procrit Encounter Details Date Type Department Care Team (Late st Contact Info) Description 07/25/2023 Telephone Hematology/Oncology [place] [address] [place] [address] Fly Velazquez MD [address] [facility] [place] [address] Medication Pre-auth (Procrit) Allergies No known active allergiesdocumented as of this encounter (statuses as of 07/26/2023) Medications Medication Sig Dispensed Refills Start Date End Date Status MULTIPLE VITAMIN PO TABS 1 TABLET DAILY 0 07/03/2011 Active OMEGA-3 FISH OIL 1000 MG PO CAPS Take one capsule by mouth daily 0 07/03/2011 Active Blood Glucose Monitoring Suppl ([employer] ULTRA SYSTEM) W/DEVICE KITIndications:DM type 2, [...] of insulin ([facility]),Type 2 diabetes mellitus with hemoglobin A1c goal of less than 7.0% ([facility]) Use once a day with basaglar. DX e11.9 100 Each 3 10/17/2021 Active Rhopressa 0.02 % Ophthalmic Solution Instill 1 Drop into the left eye at bedtime. 0 05/17/2022 Active Vitamin C 1000 MG Oral Tablet Take 1 Tablet by mouth in the morning. 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 0 06/04/2023 Active Epoetin Gautam-epbx 07827 UNIT/ML Injection Solution (Retacrit) Inject 2 mL [...] as of this encounter (statuses as of 07/26/2023) Active Problems Problem Noted Date Diagnosed Date [...] Diabetes Taxonomy. 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 of inactive term half-way current use of anticoagulant therapy 0 03/16/2005 Overview: 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 of inactive term SPENCER (obstructive sleep apnea) 06/11/2001 Overview: CPAP 11 cwp? AHP Gout of wrist documented as of this encounter (statuses as of 07/26/2023) Resolved Problems Problem Noted Date Diagnosed Date [...] as of this encounter (statuses as of 07/26/2023) Immunizations Name Administration Dates Next Due COVID-19 mRNA, LNP-s, No Pre serve, 2-Dose Series ([employer]) 06/20/2021,10/22/2020,09/26/2020 COVID-19, LNP-s, No Preserve , Jamie-sucrose, Ages 12+ (Pfizer) 03/13/2022 Covid-19, Mrna, Lnp-s, Pf, B ivalent, 30 Mcg, IM, 12 yrs and above ([employer]) 09/20/2022 Pneumococcal Conjugate Vacci ne, 20-valent ([id number]) 03/14/2022 Pneumococcal Polysaccharide PPV23 (Pneumovax) 03/19/2006 Seasonal [...] Description 07/29/2023 9:00 AM EST Laboratory Laboratory [address] [place] [phone] [place] [address] 07/30/2023 7:00 AM EST 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 Pharmacy, [address] [place] [address] [place] [address] 07/30/2023 10:30 AM EST Immunization/Injection Hematology/Oncolog y Treatment, [place] [address] [place] [address] Nurse, Med 4 [address] [place] [address] 08/13/2023 9:00 AM EST Laboratory Laboratory [address] [place] [phone] [place] [address] 08/14/2023 10:30 AM EST Immunization/Injection Hematology/Oncolog y Treatment, [place] [address] [facility] [place] [address] Nurse, Med 4 [address] [place] [address] 09/02/2023 1:00 PM EST Office Visit Ophthalmology, [facility] [address] [place] [address] Mika Diaz DO [address] [place] [address] 09/20/2023 8:50 AM EST Office Visit Family Medicine [address] [place] [phone] [place] [address] 10/01/2023 9:00 AM EST Office Visit Cardiology [address] [place] [address] Prabhakar Henning PADarron [address] [place] [address] 10/15/2023 1:45 PM EST Office Visit Hematology/Oncolog y [facility] [address] [place] [address] Fly Velazquez MD [address] [place] [address] 10/23/2023 10:00 AM EDT Office Visit Sleep Disorders Ctr Manny Browne [place] [address] [place] [phone] Dorothy Toscano CRNP [address] [place] [address] 12/25/2023 2:00 PM EDT Office Visit Nephrology, [place] [address] [facility] [place] [address] Zemaitis, Beckie Tucker PA-C [address] [place] [address] Scheduled Procedures Name Priority Associated Diagnoses Date/Ti [...] Additional history exists CKD PHOS USE SMARTSET 45820 09/18/202302/2023, 08/29/2021, 08/02/2020, Additional history exists Diabetic Eye Exam 10/09/2023 10/09/2022, , 06/12/2022, Additional history exists GFR 01/14/2024 07/15/2023, 01/2023, 06/03/2023, Additional history exists HbA1c 01/14/2024 07/15/2023, 03/2023, 09/18/2022, Additional history exists Albumin/Creatinine Ratio 02/20/2024 072 023, 03/14/2022, 05/19/2021, Additional history exists CKD HGB USE SMARTSET 58124 07/15/202407/15, 07/15/2023, 06/28/2023, Additional history exists COLONOSCOPY-EVERY [...] this encounter Medical Devices Implanted Type Area Pin Setter Device Identifier Shelf Expiration Date Model / Serial / Lot Envista Hydrophobic Acrylic Intraocular Lens Implanted:Qty: 1 on 12/25/2016 by Raul Neely MD at OR [facility] Right: Eye [employer] 11/09/2018 [id number] / [id number] / [id number] Envista Mx60 +10.0 D Implanted:Qty: 1 on 01/29/2017 by Raul Neely MD at OR [facility] Left: Eye 11/09/2018 [id number] / [id number] documented as of this encounter Advance Directives [...] and were consensually agreed upon. Care Teams Design Editor Relationship Specialty Start Date End Date Nancy Ryan DO [address] [place] [address] [place] [phone] PCP - General Internal Medicine 09/11/18 documented as of this encounter
--- OUTSIDE RECORDS SUMMARY | 2023-11-13 21:38 | External Medical Summary ---
Author Name Unknown Address Unknown Organization K01:[facility] [place] [address] [facility] [address] Laboratory Report Ordering Provider Test Date Status JANE WOODRUFF 07/29/2023 09:15:42 Final Observation Date Value Abnormality Reference (Units ) Status SYNC LEUKOCYTES IN BLOOD BY AUTOMATED COUNT 07/29/2023 09:15:42 10.09 4.00-10.80 (K/uL) Final Segs 07/29/2023 09:15:42 69.3 40.0-75.0 (%) Final Lymphs % 07/29/2023 09:15:42 17.9 Below low normal 18.0-42.0 (%) Final Monos 07/29/2023 09:15:42 8.4 1.0-11.0 (%) Final Eosinophils 07/29/2023 09:15:42 3.6 0.0-6.0 (%) Final Basos 07/29/2023 09:15:42 0.6 0.0-2.0 (%) Final Immature Granulocyte, Percent 07/29/2023 09:15:42 0.2 0.0-2.0 (%) Final Absolute Segs 07/29/2023 09:15:42 6.99 1.80-7.70 (K/uL) Final Lymphs, absolute 07/29/2023 09:15:42 1.81 1.00-4.80 (K/ul) Final Monos, Abs 07/29/2023 09:15:42 0.85 0.00-1.10 (K/uL) Final Eos, Abs 07/29/2023 09:15:42 0.36 0.00-0.70 (K/uL) Final Basos, Abs 07/29/2023 09:15:42 0.06 0.00-0.20 (K/uL) Final Immature Granulocytes, Number 07/29/2023 09:15:42 0.02 0.00-0.20 (K/uL) Final Performing Location [facility] [place] [facility] [address] [facility] [address]
--- OUTSIDE RECORDS SUMMARY | 2023-11-13 21:38 | External Medical Summary ---
Author Name Unknown Address Unknown Organization K01:[facility] [place] [facility] [address] [place] [address] Laboratory Report Ordering Provider Test Date Status MIRYAM BRANNON 07/29/2023 09:15:42 Final Observation Date Value Abnormality Reference (Units ) Status BUN 07/29/2023 09:15:42 79 Above high normal 6-20 (mg/dL) Final Creatinine 07/29/2023 09:15:42 2.3 Above high normal 0.6-1.2 (mg/dL) Final Glomerular filtration rate/1.73 sq M.predicted [Volume Rate/Area] in Serum, Plasma or Blood by Creatinine-based formula (CKD-EPI) 07/29/2023 09:15:42 30 Below low normal >=60 (mL/min) Final eGFR is calculated based on the CKD-EPI 2020 equation SODIUM 07/29/2023 09:15:42 137 135-146 (m mol/L) Final Potassium 07/29/2023 09:15:42 4.3 3.5-5.1 (m mol/L) Final Cl 07/29/2023 09:15:42 104 98-107 (mm ol/L) Final CO2 07/29/2023 09:15:42 21 Below low normal 22- 32 (mmol/L) Final Anion gap 07/29/2023 09:15:42 12 7-15 (mmol /L) Final Glucose 07/29/2023 09:15:42 182 Above high normal 70 -120 (mg/dL) Final Calcium 07/29/2023 09:15:42 9.0 8.4-10.2 ( mg/dL) Final Performing Location [facility] [place] [facility] [address] [place] [address]
--- OUTSIDE RECORDS SUMMARY | 2023-11-13 21:38 | External Medical Summary | Summary of Care ---
Author Name Unknown Organization [facility] Address [address] [place] [address] Phone [phone] Care Team Providers Care Food Preservation Scientist Name Role Phone RyanNancy martinez Primary Care Provider Reason for Visit * Reason Onset Date Comments Medication Pre-auth 07/25/2023 Procrit Encounter Details Date Type Department Care Team (Late st Contact Info) Description 07/25/2023 Telephone Hematology/Oncology [place] [address] [place] [address] Fly Velazquez MD [address] [place] [facility] [place] [address] Medication Pre-auth (Procrit) Allergies No known active allergiesdocumented as of this encounter (statuses as of 07/25/2023) Medications Medication Sig Dispensed Refills Start Date End Date Status MULTIPLE VITAMIN PO TABS 1 TABLET DAILY 0 07/03/2011 Active OMEGA-3 FISH OIL 1000 MG PO CAPS Take one capsule by mouth daily 0 07/03/2011 Active Blood Glucose Monitoring Suppl ([employer] ULTRA SYSTEM) W/DEVICE KITIndications:DM type 2, goal [...] A1c goal of less than 7.0% ([facility]) Use once a day with basaglar. [...] current use of insulin ([facility]) Inject 48 Units under the skin [...] long-term current use of insulin ([facility]) Take 1 Tablet by mouth 2 [...] the morning. 0 06/04/2023 Active Epoetin Gautam-epbx 38082 UNIT/ML Injection Solution (Retacrit) Inject 2 mL [...] Noted on CT scan at [facility] 05/2019 Mild nonproliferative diabet ic retinopathy [...] Diabetes Taxonomy. 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 of inactive term residential current use of anticoagulant therapy 0 03/16/2005 [...] mRNA, LNP-s, No Pre serve, 2-Dose Series (vBrand) 06/20/2021,10/22/2020,09/26/2020 COVID-19, LNP-s, No Preserve , Jamie-sucrose, Ages 12+ (Pfizer) 03/13/2022 Covid-19, Mrna, Lnp-s, Pf, B ivalent, 30 Mcg, IM, 12 yrs and above (vBrand) 09/20/2022 Pneumococcal Conjugate Vacci ne, 20-valent ([id number]) 03/14/2022 Pneumococcal Polysaccharide PPV23 (Pneumovax) 03/19/2006 Seasonal [...] Description 07/29/2023 9:00 AM EST Laboratory Laboratory [address] [place] [phone] [address] [place] [address] 07/30/2023 7:00 AM EST 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 Pharmacy, [address] [place] [address] [place] [address] 07/30/2023 10:30 AM EST Immunization/Injection Hematology/Oncolog y Treatment, [place] [address] [place] [address] Nurse, Med 4 [address] [place] [address] 08/13/2023 9:00 AM EST Laboratory Laboratory [address] [place] [phone] [place] [address] 08/14/2023 10:30 AM EST Immunization/Injection Hematology/Oncolog y Treatment, [place] [address] [facility] [place] [address] Nurse, Med 4 [address] [place] [address] 09/02/2023 1:00 PM EST Office Visit Ophthalmology, [facility] [address] [place] [address] Mika Diaz DO [address] [place] [address] 09/20/2023 8:50 AM EST Office Visit Family Medicine [address] [place] [phone] [place] [address] 10/01/2023 9:00 AM EST Office Visit Cardiology [address] [place] [address] Prabhakar Henning PADarron [address] [place] [address] 10/15/2023 1:45 PM EST Office Visit Hematology/Oncolog y [facility] [address] [place] [address] Fly Velazquez MD [address] [place] [address] 10/23/2023 10:00 AM EDT Office Visit Sleep Disorders Ctr Manny Browne [place] [address] [place] [phone] Dorothy Toscano CRNP [address] [place] [address] 12/25/2023 2:00 PM EDT Office Visit Nephrology, [place] 200 [facility] [place] [address] Zemaitis, Beckie Tucker PA-C [address] [place] [address] Scheduled Procedures Name Priority Associated Diagnoses Date/Ti [...] Additional history exists CKD PHOS USE SMARTSET 43815 09/18/202302/2023, 08/29/2021, 08/02/2020, Additional history exists Diabetic Eye Exam 10/09/2023 10/09/2022, , 06/12/2022, Additional history exists GFR 01/14/2024 07/15/2023, 01/2023, 06/03/2023, Additional history exists HbA1c 01/14/2024 07/15/2023, 03/2023, 09/18/2022, Additional history exists Albumin/Creatinine Ratio 02/20/2024 072 023, 03/14/2022, 05/19/2021, Additional history exists CKD HGB USE SMARTSET 44870 07/15/202407/15, 07/15/2023, 06/28/2023, Additional history exists COLONOSCOPY-EVERY [...] this encounter Medical Devices Implanted Type Area Humanities Teacher Device Identifier Shelf Expiration Date Model / Serial / Lot Envista Hydrophobic Acrylic Intraocular Lens Implanted:Qty: 1 on 12/25/2016 by Raul Neely MD at OR [facility] Right: Eye [employer] 11/09/2018 [id number] / [id number] / [id number] Envista Mx60 +10.0 D Implanted:Qty: 1 on 01/29/2017 by Raul Neely MD at OR [facility] Left: Eye 11/09/2018 [id number] / [id number] / [id number] documented as of this encounter Advance Directives [...] and were consensually agreed upon. Care Teams Food Preservation Scientist Relationship Specialty Start Date End Date Nancy Ryan DO [address] [place] [address] [place] [phone] PCP - General Internal Medicine 09/11/18 documented as of this encounter
--- OUTSIDE RECORDS SUMMARY | 2023-11-13 21:38 | External Medical Summary | Summary of Care ---
Author Name Unknown Organization [facility] Address [address] [place] [address] Phone [phone] Care Team Providers Care Charge Coordinator Name Role Phone Lacy Ryanraheem Muro Primary Care Provider Reason for Visit * Reason Onset Date Comments Home Monitoring Alarm 07/23/2023 Encounter Details Date Type Department Care Team (Late st Contact Info) Description 07/23/2023 Home Monitoring Care Coordination [address] [place] [address] Diane Hernandez LPN HTN, goal below 130/80* Allergies No known active allergiesdocumented as of this encounter (statuses as of 07/23/2023) Medications Medication Sig Dispensed Refills Start Date End Date Status MULTIPLE VITAMIN PO TABS 1 TABLET DAILY 0 07/03/2011 Active OMEGA-3 FISH OIL 1000 MG PO CAPS Take one capsule by mouth daily 0 07/03/2011 Active Blood Glucose Monitoring Suppl ([employer] ULTRA SYSTEM) W/DEVICE KITIndications:DM type 2, goal A1c below 7 Use as directed 4 times a day. Use up to four times a day as directed. Diagnosis = E11.9 1 Kit 0 06/29/2015 Active dorzolamide-timolo l (COSOPT OCUMETER PLUS) 2.23-0.68% ophthalmic solution INSTILL 1 DROP INTO BOTH EYES BY OPHTHALMIC ROUTE ONCE IN THE [facility] AND THE SECOND DROP [...] use of insulin ([facility]) Inject 48 Units under the skin [...] current use of insulin ([facility]) Take 1 Tablet by mouth 2 times [...] the morning. 0 06/04/2023 Active Epoetin Gautam-epbx 45620 UNIT/ML Injection Solution (Retacrit) Inject 2 mL [...] Noted on CT scan at [facility] 05/2019 Mild nonproliferative diabet ic retinopathy [...] mRNA, LNP-s, No Pre serve, 2-Dose Series ([employer]) 06/20/2021,10/22/2020,09/26/2020 COVID-19, LNP-s, No Preserve , Jamie-sucrose, Ages 12+ (Pfizer) 03/13/2022 Covid-19, Mrna, Lnp-s, Pf, B ivalent, 30 Mcg, IM, 12 yrs and above ([employer]) 09/20/2022 Pneumococcal Conjugate Vacci ne, 20-valent ([id number]) 03/14/2022 Pneumococcal Polysaccharide PPV23 (Pneumovax) 03/19/2006 Seasonal [...] Progress Notes * Diane Hernandez LPN - 07/23/2023 11:47 AM EST Ronnie Wu [id number] Ronnie Wu is currently participating in the [...] Description 07/29/2023 9:00 AM EST Laboratory Laboratory [address] [place] [phone] [place] [address] 07/30/2023 7:00 AM EST 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 Pharmacy, [address] [place] [address] [place] [address] 07/30/2023 10:30 AM EST Immunization/Injection Hematology/Oncolog y Treatment, [address] [place] [address] Nurse, Med 4 [address] [facility] [place] [address] 08/13/2023 9:00 AM EST Laboratory Laboratory [address] [place] [phone] [place] [address] 08/14/2023 10:30 AM EST Immunization/Injection Hematology/Oncolog y Treatment, [place] 200 [facility] [place] [address] Nurse, Med [address] [place] [address] 09/02/2023 1:00 PM EST Office Visit Ophthalmology, [facility] [address] [place] [address] Mika Diaz DO [address] [place] [address] 09/20/2023 8:50 AM EST Office Visit Family Medicine [address] [place] [phone] [place] [address] 10/01/2023 9:00 AM EST Office Visit Cardiology [address] [place] [address] Prabhakar Henning PA-C [address] [place] [address] 10/15/2023 1:45 PM EST Office Visit Hematology/Oncolog y [facility] [address] [facility] [place] [address] Fly Velazquez MD [address] [facility] [place] [address] 10/23/2023 10:00 AM EDT [facility] [place] [address] [place] [phone] Dorothy Toscano CRNP [address] [place] [address] 12/25/2023 2:00 PM EDT Office Visit Nephrology, [facility] [address] [place] [address] ZeBeckie cruz PA-C [address] [place] [address] Scheduled Procedures Name Priority Associated Diagnoses Date/Ti [...] Additional history exists CKD PHOS USE SMARTSET 55886 09/18/202302/2023, 08/29/2021, 08/02/2020, Additional history exists Diabetic Eye Exam 10/09/2023 10/09/2022, , 06/12/2022, Additional history exists GFR 01/14/2024 07/15/2023, 110 01/2023, 06/03/2023, Additional history exists HbA1c 01/14/2024 07/15/2023, 080 03/2023, 09/18/2022, Additional history exists Albumin/Creatinine Ratio 02/20/2024 023, 03/14/2022, 05/19/2021, Additional history exists CKD HGB USE SMARTSET 32649 07/15/202407/15, 07/15/2023, 06/28/2023, Additional history exists COLONOSCOPY-EVERY [...] this encounter Medical Devices Implanted Type Area Methods Examiner Device Identifier Shelf Expiration Date Model / Serial / Lot Envista Hydrophobic Acrylic Intraocular Lens Implanted:Qty: 1 on 12/25/2016 by Raul Neely MD at OR [facility] Right: Eye [employer] 11/09/2018 [id number] / [id number] Envista Mx60 +10.0 D Implanted:Qty: 1 on 01/29/2017 by Raul Neely MD at OR [facility] Left: Eye 11/09/2018 [id number] / [id number] / [id number] documented as of this encounter Visit Diagnoses [...] and were consensually agreed upon. Care Teams Charge Coordinator Relationship Specialty Start Date End Date Nancy Ryan DO [address] [place] [address] [place] [address] PCP - General Internal Medicine 09/11/18 documented as of this encounter
--- OUTSIDE RECORDS SUMMARY | 2023-11-13 21:39 | External Medical Summary | Summary of Care ---
Author Name Unknown Organization [facility] Address [address] [place] [address] Phone [phone] Care Team Providers Care Pole Inspector Name Role Phone Nancy Ryan DO Primary Care Provider [phone] Reason for Visit * Reason Comments Dosage Adjustment Via Phone (anticoag Cl inic) Encounter Details Date Type Department Care Team (Latest Contact Info) Description 07/22/2023 6:10 PM EST 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 Pharmacy, [address] [place] [address] [place] [address] History of DVT (deep vein thrombosis)* Allergies No known active allergiesdocumented as of this encounter (statuses as of 07/22/2023) Medications Medication Sig Dispensed Refills Start Date End Date Status MULTIPLE VITAMIN PO TABS 1 TABLET DAILY 0 07/03/2011 Active OMEGA-3 FISH OIL 1000 MG PO CAPS Take one capsule by mouth daily 0 07/03/2011 Active Blood Glucose Monitoring Suppl (Visionarity ULTRA SYSTEM) W/DEVICE KITIndications:DM type 2, goal [...] of insulin ([facility]),Type 2 diabetes mellitus with hemoglobin A1c goal of less than 7.0% ([facility]) Use once a day with basaglar. DX [...] of insulin ([facility]) Inject 48 Units under the skin [...] of insulin ([facility]) Use TWICE a day to test [...] the morning. 0 06/04/2023 Active Epoetin Gautam-epbx 46617 UNIT/ML Injection Solution (Retacrit) Inject 2 mL [...] as of this encounter (statuses as of 07/22/2023) Active Problems Problem Noted Date Diagnosed Date [...] Noted on CT scan at [facility] 05/2019 Mild nonproliferative diabet ic retinopathy of [...] Diabetes Taxonomy. 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 AHP Gout of wrist documented as of this encounter (statuses as of 07/22/2023) Resolved Problems Problem Noted Date Diagnosed Date [...] as of this encounter (statuses as of 07/22/2023) Immunizations Name Administration Dates Next Due COVID-19 mRNA, LNP-s, No Pre serve, 2-Dose Series (charming charlie) 06/20/2021,10/22/2020,09/26/2020 COVID-19, LNP-s, No Preserve , Jamie-sucrose, Ages 12+ (Pfizer) 03/13/2022 Covid-19, Mrna, Lnp-s, Pf, B ivalent, 30 Mcg, IM, 12 yrs and above (charming charlie) 09/20/2022 Pneumococcal Conjugate Vacci ne, 20-valent ([id number]) 03/14/2022 Pneumococcal Polysaccharide PPV23 (Pneumovax) 03/19/2006 SEASONAL INFLUENZA, PF, 6 M & Above, IM , (FLULAVAL or FLUZONE) 05/19/2021,04/22/2020,06/03/2019,06/03,07/30/2017 Seasonal Influenza, Quadriva lent Hd (Fluzone [...] as of this encounter Progress Notes * Ebony Delacruz, education director - 07/22/2023 9:07 AM EST Patient Phone Numbers Spoke with patient to schedule MTD appointment for coag management. Appointment scheduled as notedbelow. 07/30/23 Thank you, Ebony Delacruz Brush Polisher [facility] ([facility]) (Formerly Telepharm[facility]) 07/22/2023, 9:08 AM documented in this encounter Plan of Treatment Upcoming Encounters Date Type Department Care Team (Late st Contact Info) Description 07/29/2023 9:00 AM EST Laboratory Laboratory [address] [place] [phone] [place] [address] 07/30/2023 7:00 AM EST 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 Pharmacy, [address] [place] [address] [place] [address] 07/30/2023 10:30 AM EST Immunization/Injection [facility]olog [facility] [place] [facility] [address] [facility], Med 4 [address] [facility] [place] [address] 08/13/2023 9:00 AM EST Laboratory Laboratory [address] [place] [phone] [address] [place] [address] 08/14/2023 10:30 AM EST Immunization/Injection Hematology/Oncolog y Treatment, [place] [address] [place] [address] Nurse, Med 4 200 [facility] [place] [address] 09/02/2023 1:00 PM EST Office Visit Ophthalmology, [facility] [place] [address] [place] [address] Mika Diaz, DO [address] [place] [address] 09/20/2023 8:50 AM EST Office Visit Family Medicine [address] [place] [phone] [place] [address] 10/01/2023 9:00 AM EST Office Visit Cardiology [address] [place] [address] Prabhakar Henning PA-C [address] [place] [address] 10/15/2023 1:45 PM EST Office Visit Hematology/Oncolog y [facility] [place] [facility] [place] [address] Fly Velazquez MD 200 [facility] [place] [address] 10/23/2023 10:00 AM EDT [facility] [address] [place] [phone] Dorothy Toscano CRNP [address] [place] [address] 12/25/2023 2:00 PM EDT Office Visit Nephrology, [facility] [address] [place] [address] ZemaBeckie umanzor PA-C [facility] [place] [address] Scheduled Procedures Name Priority Associated Diagnoses Date/Ti [...] Additional history exists CKD PHOS USE SMARTSET 22744 09/18/2023 020 02/2023, 08/29/2021, 08/02/2020, Additional history exists Diabetic Eye Exam 10/09/2023 10/09/2022, , 06/12/2022, Additional history exists GFR 01/14/2024 07/15/2023, 110 01/2023, 06/03/2023, Additional history exists HbA1c 01/14/2024 07/15/2023, 080 03/2023, 09/18/2022, Additional history exists Albumin/Creatinine Ratio 02/20/2024 023, 03/14/2022, 05/19/2021, Additional history exists CKD HGB USE SMARTSET 88401 07/15/202407/15, 07/15/2023, 06/28/2023, Additional history exists COLONOSCOPY-EVERY [...] this encounter Medical Devices Implanted Type Area Assistant Auditor Device Identifier Shelf Expiration Date Model / Serial / Lot Envista Hydrophobic Acrylic Intraocular Lens Implanted:Qty: 1 on 12/25/2016 by Raul Neely MD at OR [facility] Right: Eye [employer] 11/09/2018 [id number] / [id number] Envista Mx60 +10.0 D Implanted:Qty: 1 on 01/29/2017 by Raul Neely MD at OR [facility] Left: Eye 11/09/2018 [id number] / [id number] / [id number] documented as of this encounter Visit Diagnoses [...] and were consensually agreed upon. Care Teams Pole Inspector Relationship Specialty Start Date End Date Nancy Ryan DO [address] [place] [address] [place] [address] PCP - General Internal Medicine 09/11/18 documented as of this encounter
--- OUTSIDE RECORDS SUMMARY | 2023-11-13 21:39 | External Medical Summary ---
Author Name Unknown Address Unknown Organization [id number]:[facility] [place] [address] [place] [address] Laboratory Report Ordering Provider Test Date Status JANE WOODRUFF 07/15/2023 09:22:50 Final Observation Date Value Abnormality Reference (Units ) Status Iron 07/15/2023 09:22:50 45 45-176 (ug/dL) Final Iron-binding capacity 07/15/2023 09:22:50 318 250-425 (ug/dL) Final Transferrin Sat % 07/15/2023 09:22:50 14 Below low normal 15-55 (%) Final Performing Location [facility] [place] [address] [place] [address]
--- OUTSIDE RECORDS SUMMARY | 2023-11-13 21:39 | External Medical Summary ---
Author Name Unknown Address Unknown Organization K01:[facility] [place] [address] [place] [address] Laboratory Report Ordering Provider Test Date Status KACYJANE 07/15/2023 09:22:50 Final Observation Date Value Abnormality Reference (Units ) Status Folic Acid 07/15/2023 09:22:50 >20.0 >4.5 (ng/ mL) Final Performing Location [facility] [place] [address] [place] [address]
--- OUTSIDE RECORDS SUMMARY | 2023-11-13 21:39 | External Medical Summary ---
Author Name Unknown Address Unknown Organization K01:[facility] [place] [address] [place] [address] Laboratory Report Ordering Provider Test Date Status KACYJANE 07/15/2023 09:22:50 Final Observation Date Value Abnormality Reference (Units ) Status Ferritin 07/15/2023 09:22:50 257 30-400 (ng /mL) Final Performing Location LABORATORY C - [address] [place] [address]
--- OUTSIDE RECORDS SUMMARY | 2023-11-13 21:39 | External Medical Summary ---
Author Name Unknown Address Unknown Organization K[facility] [place] [address] [facility] [address] Laboratory Report Ordering Provider Test Date Status JANE WOODRUFF 07/15/2023 09:22:50 Final Observation Date Value Abnormality Reference (Units ) Status BUN 07/15/2023 09:22:50 46 Above high normal 6-20 (mg/dL) Final Creatinine 07/15/2023 09:22:50 1.6 Above high normal 0.6-1.2 (mg/dL) Final Glomerular filtration rate/1.73 sq M.predicted [Volume Rate/Area] in Serum, Plasma or Blood by Creatinine-based formula (CKD-EPI) 07/15/2023 09:22:50 47 Below low normal >=60 (mL/min) Final eGFR is calculated based on the CKD-EPI 2020 equation SODIUM 07/15/2023 09:22:50 140 135-146 (m mol/L) Final Potassium 07/15/2023 09:22:50 4.9 3.5-5.1 (m mol/L) Final Cl 07/15/2023 09:22:50 105 98-107 (mm ol/L) Final CO2 07/15/2023 09:22:50 21 Below low normal 22- 32 (mmol/L) Final Anion gap 07/15/2023 09:22:50 14 7-15 (mmol /L) Final Glucose 07/15/2023 09:22:50 144 Above high normal 70 -120 (mg/dL) Final Albumin 07/15/2023 09:22:50 3.4 Below low normal 3.8 -5.0 (g/dL) Final AST (Aspartate aminotransferase) 07/15/2023 09:22:50 39 10-50 (U/L) Fin al Result may be falsely elevat ed due to hemolysis. Alk Phos 07/15/2023 09:22:50 93 35-130 (U/ L) Final Bilirubin, Total 07/15/2023 09:22:50 0.3 <=1 .2 (mg/dL) Final Calcium 07/15/2023 09:22:50 9.2 8.4-10.2 ( mg/dL) Final Protein 07/15/2023 09:22:50 6.7 6.0-8.3 (g /dL) Final ALT (Alanine aminotransferase) 07/15/2023 09:22:50 29 10-50 (U/L) Final Performing Location [facility] [place] [address] [facility] [address]
--- OUTSIDE RECORDS SUMMARY | 2023-11-13 21:39 | External Medical Summary | Summary of Care ---
Author Name Unknown Organization [facility] Address [address] [place] [address] Phone [phone] Care Team Providers Care Game Farm Helper Name Role Phone Nancy Ryan DO Primary Care Provider Reason for Visit * Reason Comments Medication Administration Procrit * Episode Based Medications (Routine) - Authorized Specialty Diagnoses / Procedures Referred By Contac t Referred To Contact Diagnoses Anemia due to stage 3a chronic kidney disease Procedures AR INJ RETACRIT NON-ESRD USE Tameka Pires CRNP [address] [facility] [place] [address] Anc Hem/Onc [place] DEPT CLOSED - 06/25/[address] [place] [address] [phone] Referral ID Status Reason Start Date Expiration Date V isits Requested Visits Authorized [id number] Authorized 04/01/2023 07/22/[phone] Encounter Details Date Type Department Care Team (Late st Contact Info) Description 07/16/2023 10:30 AM EST Immunization/I njection Hematology/Oncology Treatment, [place] [address] [place] [address] Nurse, Med [address] [place] [address] [address] Anemia due to stage 3a chronic kidney disease * Allergies No known active allergiesdocumented as of this encounter (statuses as of 07/16/2023) Medications Medication Sig Dispensed Refills Start Date End Date Status MULTIPLE VITAMIN PO TABS 1 TABLET DAILY 0 07/03/2011 Active OMEGA-3 FISH OIL 1000 MG PO CAPS Take one capsule by mouth daily 0 07/03/2011 Active VITAMIN B-12 1000 MCG PO TABSIndications:Vi tamin B12 deficiency 1 TABLET DAILY 90 Tab 1 07/19/2014 Active Blood Glucose Monitoring Suppl (Element Power ULTRA SYSTEM) W/DEVICE KITIndications:DM type 2, goal [...] of DVT (deep vein thrombosis),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 management encounter,longterm current use of anticoagulant therapy Take 5 [...] with long-term current use of insulin ([facility]) Inject 48 Units under the skin [...] with long-term current use of insulin ([facility]) Use TWICE a day to test glucose Diagnosis = E11.9 200 Each 3 03/19/2023 Active Ozempic (2 MG/DOSE) 8 MG/3ML Subcutaneous Solution Pen-injector (Semaglutide (2 MG/DOSE))Indicatio ns:Type 2 diabetes mellitus with diabetic neuropathy, with long-term current use of insulin ([facility]) Inject 2 mg under the skin [...] with long-term current use of insulin ([facility]) Take 1 Tablet by mouth 2 [...] the morning. 0 06/04/2023 Active Epoetin Gautam-epbx 22686 UNIT/ML Injection Solution (Retacrit) Inject intravenously. 0 Active Torsemide 20 MG Oral Tablet (Demadex) Take 1 Tablet by mouth in the morning. 90 Tablet 3 06/28/2023 Active Hospital, Clinic, or Other Facility Administered [...] as of this encounter (statuses as of 07/16/2023) Active Problems Problem Noted Date Diagnosed Date [...] Overview: Non-obstructive. Noted on CT scan at [facility] 05/2019 Mild nonproliferative diabet ic [...] as of this encounter (statuses as of 07/16/2023) Resolved Problems Problem Noted Date Diagnosed Date [...] as of this encounter (statuses as of 07/16/2023) Immunizations Name Administration Dates Next Due COVID-19 mRNA, LNP-s, No Pre serve, 2-Dose Series (Pfizer) 06/20/2021,10/22/2020,09/26/2020 COVID-19, LNP-s, No Preserve , Jamie-sucrose, Ages 12+ (Pfizer) 03/13/2022 Covid-19, Mrna, Lnp-s, Pf, B ivalent, 30 Mcg, IM, 12 yrs and above (Pfizer) 09/20/2022 Pneumococcal Conjugate Vacci ne, 20-valent ([id number]) 03/14/2022 Pneumococcal Polysaccharide PPV23 (Pneumovax) 03/19/2006 SEASONAL [...] Sign Reading Time Taken Comments Blood Pressure 154/81 07/16/2023 11:03 AM EST Pulse 89 07/16/2023 11:03 AM EST Temperature - - Respiratory Rate - - Oxygen Saturation - - Inhaled Oxygen Concentration - - Weight - - Height - - Body Mass Index - - documented in this encounter Nursing Notes * Pat Trent LPN - 07/16/2023 12:13 PM EST 1045: Pt arrived for Procrit injection. Pts BP is elevated. Spoke to MD regarding and per Dr. Stevens to give procrit. Pt is being followed by PCP and has a BP machine at home that sends the results to them throughout the day. Pts Hgb 9.2. Pt reports he feels great. Administered in MARLENE. Pt tolerated well. To return in 2 weeks. Discharged in stable condition. documented in this encounter Plan of Treatment Upcoming Encounters Date Type Department Care Team (Late st Contact Info) Description 07/17/2023 1:15 PM EST Office Visit Ophthalmology, [facility] [address] [place] [address] Mika Diaz, [address] [place] [address] 07/22/2023 6:10 PM EST 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 Pharmacy, [address] [place] [address] [place] [address] 07/29/2023 9:00 AM EST Laboratory Laboratory [address] [place] [phone] [place] [address] 07/30/2023 10:30 AM EST Immunization/Injection Hematology/Oncolog y Treatment, [place] [address] [facility] [place] [address] Nurse, Med 4 [address] [place] [address] 08/13/2023 9:00 AM EST Laboratory Laboratory [address] [place] [phone] [place] [address] 08/14/2023 10:30 AM EST Immunization/Injection Hematology/Oncolog y Treatment, [place] [address] [facility] [place] [address] Nurse, Med 4 [address] [place] [address] 09/20/2023 8:50 AM EST Office Visit Family Medicine [address] [place] [phone] Nancy Ryan [address] [place] [address] 10/01/2023 9:00 AM EST Office Visit Cardiology [address] [place] [address] Prabhakar Henning PA-C [address] [facility] [place] [address] 10/15/2023 1:45 PM EST Office Visit Hematology/Oncolog y [facility] [place] [address] [place] [address] Fly Velazquez MD [address] [place] [address] 10/23/2023 10:00 AM EDT Office Visit Sleep Disorders Ctr [facility] [place] [address] [place] [phone] Dorothy Toscano CRNP [address] [place] [address] 12/25/2023 2:00 PM EDT Office Visit Nephrology, [place] [address] [facility] [place] [address] [place], Beckie Tucker PA-C [address] [place] [address] Scheduled Procedures Name Priority Associated Diagnoses Date/Ti [...] Additional history exists CKD PHOS USE SMARTSET 91416 09/18/202302/2023, 08/29/2021, 08/02/2020, Additional history exists Diabetic Eye Exam 10/09/2023 10/09/2022, , 06/12/2022, Additional history exists GFR 01/14/2024 07/15/2023, 01/2023, 06/03/2023, Additional history exists HbA1c 01/14/2024 07/15/2023, 03/2023, 09/18/2022, Additional history exists Albumin/Creatinine Ratio 02/20/2024 072 023, 03/14/2022, 05/19/2021, Additional history exists CKD HGB USE SMARTSET 06684 07/15/202407/15, 07/15/2023, 06/28/2023, Additional history exists COLONOSCOPY-EVERY [...] this encounter Medical Devices Implanted Type Area Reading Efficiency Course Director Device Identifier Shelf Expiration Date Model / Serial / Lot Envista Hydrophobic Acrylic Intraocular Lens Implanted:Qty: 1 on 12/25/2016 by Raul Neely MD at OR [facility] Right: Eye [employer] 11/09/2018 [id number] / [id number] Envista Mx60 +10.0 D Implanted:Qty: 1 on 01/29/2017 by Raul Neely MD at OR [facility] Left: Eye 11/09/2018 [id number] / [id number] documented as of this encounter Visit Diagnoses Diagnosis Anemia due to stage 3a chronic kidney disease- Primary documented in this encounter Administered Medications Inactive Administered Medications - up to 3 most recent administrations Medication Order MAR Action Action Date Dose Rate Site Epoetin Gautam 38364 UNIT/ML inj 40,000 Units 40,000 Units, Subcutaneous, ONCE, On Sat07/16/23 at 1130, For 1 dose Given 07/16/2023 11:03 AM EST 40,000 Units Arm Right Upper [...] and were consensually agreed upon. Care Teams Game Farm Helper Relationship Specialty Start Date End Date Nancy Ryan DO [address] [place] [address] [place] [address] PCP - General Internal Medicine 09/11/18 documented as of this encounter
--- OUTSIDE RECORDS SUMMARY | 2023-11-13 21:39 | External Medical Summary | Summary of Care ---
Author Name Unknown Organization [facility] Address [address] [place] [address] Phone [phone] Care Team Providers Care Electric Tripper Machine Operator Name Role Phone Ryan Nancy Muro Primary Care Provider [phone] Reason for Visit * Reason Onset Date Comments Follow Up 06/12/2023 Encounter Details Date Type Department Care Team (Late st Contact Info) Description 06/12/2023 Telephone Nephrology, [place] [address] [facility] [place] [address] Alejandrina Sims MD [address] [place] [address] Follow Up Allergies No known active allergiesdocumented as of this encounter (statuses as of 07/10/2023) Medications Medication Sig Dispensed Refills Start Date End Date Status MULTIPLE VITAMIN PO TABS 1 TABLET DAILY 0 07/03/2011 Active OMEGA-3 FISH OIL 1000 MG PO CAPS Take one capsule by mouth daily 0 07/03/2011 Active VITAMIN B-12 1000 MCG PO TABSIndications:Vi tamin B12 deficiency 1 TABLET DAILY 90 Tab 1 07/19/2014 Active Blood Glucose Monitoring Suppl (HQ plus ULTRA SYSTEM) W/DEVICE KITIndications:DM type 2, goal [...] long-term current use of insulin ([facility]),Type 2 diabetes mellitus with hemoglobin A1c goal of less than 7.0% ([facility]) Use once a day with basaglar. DX e11.9 100 Each 3 10/17/2021 Active Rhopressa 0.02 % Ophthalmic Solution Instill 1 Drop into the left eye at bedtime. 0 05/17/2022 Active Vitamin C 1000 MG Oral Tablet Take 1 Tablet by mouth in the morning. 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 45 mL 3 02/27/2023 Active Acetic Acid 0.25 % Irrigation Solution Apply to legs as directed by the wound clinic. 1000 mL 2 03/01/2023 Active OneTouch Verio In Vitro Strip (Glucose Blood) Use to test blood sugars twice a day. Dx. E11.9 300 Strip 1 03/13/2023 Active OneTouch Hari Lancets 30GIndications:Typ e 2 diabetes mellitus with diabetic neuropathy, with long-term current use of insulin ([facility]) Use TWICE a day to test glucose [...] mouth in the morning. 0 06/04/2023 Active documented as of this encounter (statuses as of 07/10/2023) Active Problems Problem Noted Date Diagnosed Date [...] Diabetes Taxonomy. 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 AHP Gout of wrist documented as of this encounter (statuses as of 07/10/2023) Resolved Problems Problem Noted Date Diagnosed Date [...] as of this encounter (statuses as of 07/10/2023) Immunizations Name Administration Dates Next Due COVID-19 mRNA, LNP-s, No Pre serve, 2-Dose Series (Bomberbot) 06/20/2021,10/22/2020,09/26/2020 COVID-19, LNP-s, No Preserve , Jamie-sucrose, Ages 12+ (Pfizer) 03/13/2022 Covid-19, Mrna, Lnp-s, Pf, B ivalent, 30 Mcg, IM, 12 yrs and above (Bomberbot) 09/20/2022 Pneumococcal Conjugate Vacci ne, 20-valent ([id number]) 03/14/2022 Pneumococcal Polysaccharide PPV23 (Pneumovax) 03/19/2006 SEASONAL [...] encounter Miscellaneous Notes * Telephone Encounter - Caremla Layen RN - 07/10/2023 2:00 PM EST Pt is now established with Remote bp monitoring program. Pt does report that he is now receiving Procrit at the infusion Center as ordered by Dr Velazquez. He is aware that this can cause some higher blood pressure readings. * Telephone Encounter - Alejandrina Sims MD - 06/12/2023 2:59 PM EDT Pls give him 10 mre days to coordinate w/ family to set up montez; if not able, then routine MTM for HTN w/ goal <130/80 w/ SMBP * Telephone Encounter - Carmela Layne RN - 06/12/2023 10:59 AM EDT Please follow up with pt to establish remote blood pressure monitor. Arm circumference is 37cm. * Telephone Encounter - Alejandrina Sims MD - 06/12/2023 10:00 AM EDT At [facility] last week, plan was fro remote monitoring but ? If their cuff will fit his arm >pls call and f/u if he got remote monitor > if not yet, ensure that remote cuff will fit hisarm >if remote cuff won't fit, pls have him -bring home cuff in -validate it -3 day log -refer to [facility] HTN goal <130/80 documented in this encounter Plan of Treatment Upcoming Encounters Date Type Department Care Team (Late st Contact Info) Description 07/12/2023 5:30 PM EST 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 Pharmacy, [address] [place] [address] [facility] [address] [place] [address] 07/15/2023 9:10 AM EST Laboratory Laboratory [address] [place] [phone] [address] [place] [address] 07/16/2023 10:30 AM EST Immunization/Injection Hematology/Oncolog y Treatment, [place] [address] [place] [address] Nurse, Med 4 [address] [facility] [address] 07/17/2023 1:15 PM EST Office Visit Ophthalmology, [facility] [address] [place] [address] Mika Diaz, DO [address] [place] [address] 07/29/2023 9:00 AM EST Laboratory Laboratory [address] [place] [address] [phone] [place] [address] [place] [address] 07/30/2023 10:30 AM EST Immunization/Injection Hematology/[facility]colog [facility], [place] [facility] [address] [facility], Med 4 200 [facility] [place] [address] 08/13/2023 9:00 AM EST Laboratory Laboratory [address] [place] [phone] [address] [place] [address] 08/14/2023 10:30 AM EST Immunization/Injection Hematology/Oncolog y Treatment, [place] [facility] [place] [address] Nurse, Med 4 200 [facility] [place] [address] 09/20/2023 8:50 AM EST Office Visit Family Medicine [address] [place] [phone] Nancy Ryan[address] [place] [address] 10/01/2023 9:00 AM EST Office Visit Cardiology [address] [place] [address] Prabhakar Henning PA-C [address] [place] [address] 10/15/2023 1:45 PM EST Office Visit Hematology/Oncolog y [facility] [place] [address] [facility] [place] [address] Fly Velazquez MD [address] [place] [address] 10/23/2023 10:00 AM EDT Office Visit Sleep Disorders Ctr Manny Browne [place] [address] [place] [phone] Dorothy Toscano CRNP [address] [place] [address] 12/25/2023 2:00 PM EDT Office Visit Nephrology, [place] [address] [facility] [place] [address] Zemaitis, Beckie Tucker PA-C [address] [place] [address] Scheduled Procedures Name Priority Associated Diagnoses Date/Ti [...] Additional history exists CKD PHOS USE SMARTSET 07330 09/18/2023 020 02/2023, 08/29/2021, 08/02/2020, Additional history exists HbA1c 09/19/2023 03/19/2023, 020 02/2023, 05/28/2022, Additional history exists Diabetic Eye Exam 10/09/2023 10/09/2022, , 06/12/2022, Additional history exists GFR 12/16/2023 06/17/2023, 05/13, 02/19/2023, Additional history exists Albumin/Creatinine Ratio 02/20/2024 023, 03/14/2022, 05/19/2021, Additional history exists CKD HGB USE SMARTSET 97588 06/28/202406/28, 06/28/2023, 06/17/2023, Additional history exists COLONOSCOPY-EVERY 5 YRS AGES [...] encounter Medical Devices Implanted Type Area Insurance Claim Auditor Device Identifier Shelf Expiration Date Model / Serial / Lot Envista Hydrophobic Acrylic Intraocular Lens Implanted:Qty: 1 on 12/25/2016 by Raul Neely MD at OR [facility] Right: Eye [employer] 11/09/2018 [id number] / [id number] Envista Mx60 +10.0 D Implanted:Qty: 1 on 01/29/2017 by Raul Neely MD at OR [facility] Left: Eye 11/09/2018 [id number] / [id number] documented as of this encounter Advance Directives [...] and were consensually agreed upon. Care Teams Electric Tripper Machine Operator Relationship Specialty Start Date End Date Nancy Ryan DO [address] [place] [address] [place] [address] PCP - General Internal Medicine 09/11/18 documented as of this encounter
--- OUTSIDE RECORDS SUMMARY | 2023-11-13 21:39 | External Medical Summary | Summary of Care ---
Author Name Unknown Organization [facility] Address [address] [place] [address] Phone [phone] Care Team Providers Care Remote Medical Coder Name Role Phone RyanLacyNancyraheem Muro Primary Care Provider [phone] Reason for Visit * Reason Onset Date Comments Remote Patient Monitoring Alert 07/08/2023 Encounter Details Date Type Department Care Team (Late st Contact Info) Description 07/08/2023 Home Monitoring Care Coordination [address], [place] [phone] Gaby Willis LPN HTN, goal below 140/90* [...] 1 07/19/2014 Active Blood Glucose Monitoring Suppl (Motor2 ULTRA SYSTEM) W/DEVICE KITIndications:DM type 2, goal [...] current use of insulin ([facility]),Type 2 diabetes mellitus with hemoglobin A1c [...] current use of insulin ([facility]) Inject 48 Units under the skin [...] current use of insulin ([facility]) Use TWICE a day to test [...] current use of insulin ([facility]) Take 1 Tablet by mouth 2 [...] the morning. 0 06/04/2023 Active Epoetin Gautam-epbx 59775 UNIT/ML Injection Solution (Retacrit) Inject intravenously. 0 Active Torsemide 20 MG Oral Tablet (Demadex) Take 1 Tablet by mouth in the morning. 90 Tablet 3 06/28/2023 Active Chlorthalidone 25 MG Oral Tablet (Hygroton) Take 1 Tablet by mouth in the morning. 30 Tablet 5 07/16/2023 Active Hospital, Clinic, or Other Facility Administered [...] Overview: Non-obstructive. Noted on CT scan at [facility] 05/2019 Mild nonproliferative diabet ic [...] Diabetes Taxonomy. 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 Called and spoke to patient. Med review completed to ensure all BP meds below are currently being taken. Rx sent to pharmacy. BMP ordered to obtain ~1 week after starting. Remind-me sent to f/u. Current Hypertension Medications: Torsemide 20mg daily Losartan 50mg 1/2 tablet daily Carvedilol 6.25mg BID START Chlorthalidone 25mg daily Jena Haas RPh, PharmD Clinical Pharmacist - [employer] [facility] Medication Therapy [facility] 07/16/2023, 1:56 PM .[phone] * Alejandrina Sims MD - 07/12/2023 4:25 PM EST Recommend chlorthalidone 25 mg daily addition May need to up torse as well but start here; reluctant to up BB d/t balance concerns but may need to reeval this * Jena Haas RPh - 07/09/2023 10:13 AM EST [facility] - Hypertension Management This patient was contacted as part of the [facility] Nephrology HTN remote monitoring automatic pilot mechanic. Blood Pressure Goal: 140/90 mmHg Type of Alert: Yellow Current Hypertension Medications: Torsemide 20mg daily Losartan 50mg 1/2 tablet daily Carvedilol 6.25mg BID Previous antihypertensive use: Concerns w/ hyperkalemia in the past Experiencing symptoms related to elevated BP: No BP Readings from Last 3 Encounters: 07/01/23 148/68 06/18/23 147/55 06/06/23 141/74 Pulse Readings from Last 3 Encounters: 07/01/23 68 06/18/23 86 06/06/23 68 Recent Labs Units 06/17/23 0912 06/03/23 0849 02/19/23 1035 SODIUM - [facility] mmol/L 138 139 136 POTASSIUM - [facility] mmol/L 5.2* 5.8* 5.1 CHLORIDE - [facility] mmol/L 103 109* 104 CO2 - [facility] mmol/L 22 19* 20* CREATININE - [facility] mg/dL 1.6* 1.7* 1.6* BUN - [facility] mg/dL 31* 43* 58* ASSESSMENT & PLAN: Systolic Diastolic Systolic Diastolic 158 77 Average 158 81 167 90 166 88 High 90 0 151 74 Low 72 0 170 88 135 72 Range 18 0 162 77 Count 7 0 BP elevated and above goal. Per 06/06 nephro OV, Hyperkalemia w/ high K diet choices and likely element RTA 4 -diet chagnes as below -start sodium bicarb, torse per phone mssg; lower losartan -f/u lab Jena Haas [facility] Clinical Pharmacist - [employer] [facility] Medication Therapy Management Clinic 07/09/2023, 10:13 AM * Gaby Willis LPN - 07/08/2023 1:36 PM EST Ronnie Teran Jazmin [phone] Ronnie Jeffry Wu is currently participating in the [facility] Hypertension Management Program and has alerted for an Average BP over 7 days > 140/90. 07/06/2023 @ 9:48 AM Parameters are currently set as follows: Average BP over 7 days > 140/90 Singular Systolic BP Reading < 90 or > 180 Singular Diastolic BP Reading <50 or > 120 Patient is not reporting any new symptoms or concerns. The patient does have all his blood pressuremedications and is taking them as prescribed. Please [...] 07/17/2023 1:15 PM EST Office Visit Ophthalmology, [facility] [address] [place] [address] Mika Diaz, [address] [place] [address] 07/22/2023 6:10 PM EST 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 Pharmacy, [address] [place] [address] [place] [address] 07/29/2023 9:00 AM EST Laboratory Laboratory [address] [place] [phone] [place] [address] 07/30/2023 10:30 AM EST Immunization/Injection Hematology/Oncolog y Treatment, [address] [address] Nurse, Med 4 200 [facility] [place] [address] 08/13/2023 9:00 AM EST Laboratory Laboratory [address] [place] [phone] [address] [place] [address] 08/14/2023 10:30 AM EST Immunization/Injection Hematology/[facility]colog [facility], [place] [facility] [address] Nurse, Med 4 200 [facility] [place] [address] 09/20/2023 8:50 AM EST Office Visit Family Medicine [address] [place] [phone] Nancy Ryan[address] [place] [address] 10/01/2023 9:00 AM EST Office Visit Cardiology [address] [place] [address] Prabhakar Henning PA-C [address] [place] [address] 10/15/2023 1:45 PM EST Office Visit Hematology/Oncolog y [facility] 200 [facility] [place] [address] Fly Velazquez MD 200 [facility] [place] [address] 10/23/2023 10:00 AM EDT Office Visit Sleep Disorders Ctr M[facility] [address] [place] [phone] Dorothy Toscano CRNP [address] [place] [address] 12/25/2023 2:00 PM EDT Office Visit Nephrology, [facility] 200 [facility] [place] [address] Zemaitis, Beckie Tucker PA-C 200 [facility] [place] [address] Scheduled Orders Name Type Priority Associated Diagnoses Orde r Schedule BASIC METABOLIC PANEL Lab Routine HTN, goal below 140/90 Expected: 07/23/2023 (Approximate), Expires: 07/16/2024 Scheduled Procedures Name Priority Associated Diagnoses Date/Ti [...] Additional history exists CKD PHOS USE SMARTSET 26993 09/18/2023 02/0 02/2023, 08/29/2021, 08/02/2020, Additional history exists Diabetic Eye Exam 10/09/2023 10/09/2022, , 06/12/2022, Additional history exists GFR 01/14/2024 07/15/2023, 110 01/2023, 06/03/2023, Additional history exists HbA1c 01/14/2024 07/15/2023, 08/0 03/2023, 09/18/2022, Additional history exists Albumin/Creatinine Ratio 02/20/2024 023, 03/14/2022, 05/19/2021, Additional history exists CKD HGB USE SMARTSET 93933 07/15/202407/15, 07/15/2023, 06/28/2023, Additional history exists COLONOSCOPY-EVERY [...] this encounter Medical Devices Implanted Type Area Geek Squad Manager Device Identifier Shelf Expiration Date Model / Serial / Lot Envista Hydrophobic Acrylic Intraocular Lens Implanted:Qty: 1 on 12/25/2016 by Raul Neely MD at OR [facility] Right: Eye [employer] 11/09/2018 [id number] / [id number] Envista Mx60 +10.0 D Implanted:Qty: 1 on 01/29/2017 by Raul Neely MD at OR [facility] Left: Eye 11/09/2018 [id number] / [id number] / [id number] documented as of this encounter Visit Diagnoses [...] and were consensually agreed upon. Care Teams Remote Medical Coder Relationship Specialty Start Date End Date Nancy Ryan DO [address] [place] [address] [place] [address] PCP - General Internal Medicine 09/11/18 documented as of this encounter
--- OUTSIDE RECORDS SUMMARY | 2023-11-13 21:39 | External Medical Summary | Summary of Care ---
Author Name Unknown Organization [facility] Address [address] [place] [address] Phone [phone] Care Team Providers Care Drywall Carrier Name Role Phone Nancy Ryan DO Primary Care Provider [phone] Reason for Visit * Reason Comments Outpatient Testing Encounter Details Date Type Department Care Team (Late st Contact Info) Description 07/15/2023 9:10 AM EST Laboratory Laboratory [address] [place] [phone] [place] [address] Type 2 diabetes mellitus with diabetic neuropathy, with long-term current use of insulin (HCC); Anemia due to stage 3a chronic kidney disease Allergies No known active allergiesdocumented as of this encounter (statuses as of 07/15/2023) Medications Medication Sig Dispensed Refills Start Date End Date Status MULTIPLE VITAMIN PO TABS 1 TABLET DAILY 0 07/03/2011 Active OMEGA-3 FISH OIL 1000 MG PO CAPS Take one capsule by mouth daily 0 07/03/2011 Active VITAMIN B-12 1000 MCG PO TABSIndications:Vi tamin B12 deficiency 1 TABLET DAILY 90 Tab 1 07/19/2014 Active Blood Glucose Monitoring Suppl (Flashnotes ULTRA SYSTEM) W/DEVICE KITIndications:DM type 2, goal [...] DVT (deep vein thrombosis),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 0 06/04/2023 Active Epoetin Gautam-epbx 55315 UNIT/ML Injection Solution (Retacrit) Inject intravenously. 0 [...] as of this encounter (statuses as of 07/15/2023) Active Problems Problem Noted Date Diagnosed Date [...] Overview: Non-obstructive. Noted on CT scan at [facility] 05/2019 Mild nonproliferative diabet ic [...] Taxonomy. 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 AHP Gout of wrist documented as of this encounter (statuses as of 07/15/2023) Resolved Problems Problem Noted Date Diagnosed Date [...] as of this encounter (statuses as of 07/15/2023) Immunizations Name Administration Dates Next Due COVID-19 mRNA, LNP-s, No Pre serve, 2-Dose Series ([employer]) 06/20/2021,10/22/2020,09/26/2020 COVID-19, LNP-s, No Preserve , Jamie-sucrose, Ages 12+ (Pfizer) 03/13/2022 Covid-19, Mrna, Lnp-s, Pf, B ivalent, 30 Mcg, IM, 12 yrs and above ([employer]) 09/20/2022 Pneumococcal Conjugate Vacci ne, 20-valent ([id number]) 03/14/2022 Pneumococcal Polysaccharide PPV23 (Pneumovax) 03/19/2006 SEASONAL [...] Team (Late st Contact Info) Description 07/16/2023 7:00 AM EST 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 Pharmacy, [address] [place] [address] [place] [address] 07/16/2023 10:30 AM EST Immunization/Injection Hematology/Oncolog y Treatment, [place] [address] [facility] [place] [address] Nurse, Med 4 200 [facility] [place] [address] 07/17/2023 1:15 PM EST Office Visit Ophthalmology, [facility] [address] [place] [address] Mika Diaz DO [address] [place] [address] 07/29/2023 9:00 AM EST Laboratory Laboratory [address] [place] [phone] [address] [place] [address] 07/30/2023 10:30 AM EST Immunization/Injection Hematology/Oncolog y Treatment, [place] 200 [facility] [place] [address] Nurse, Med 4 200 [facility] [place] [address] 08/13/2023 9:00 AM EST Laboratory Laboratory [address] [place] [phone] [place] [address] 08/14/2023 10:30 AM EST Immunization/Injection Hematology/Oncolog y Treatment, [place] 200 [facility] [place] [address] Nurse, Med 4 200 [facility] [place] [address] 09/20/2023 8:50 AM EST Office Visit Family Medicine [address] [place] [phone] Nancy [address] [place] [address] 10/01/2023 9:00 AM EST Office Visit Cardiology [address] [place] [address] Prabhakar Henning PA-C [address] [place] [address] 10/15/2023 1:45 PM EST Office Visit Hematology/Oncolog y [facility] [address] [facility] [address] [place] [address] Fly Velazquez MD 200 [facility] [place] [address] 10/23/2023 10:00 AM EDT Office Visit Sleep Disorders Ctr [facility] [address] [place] [phone] Dorothy Toscano CRNP [address] [place] [address] 12/25/2023 2:00 PM EDT Office Visit Nephrology, [facility] [address] [place] [address] Beckie Dunbar PA-C 200 [facility] [place] [address] Pending Results Name Type Priority Associated Diagnoses Date /Time HEMOGLOBIN A1C Lab Routine Type 2 diabetes mellitus with diabetic neuropathy, with long-term current use of insulin (HCC) 07/15/2023 9:22 AM EST CBC WITH WBC DIFFERENTIAL Lab STAT Anemia due to stage 3a chronic kidney disease 07/15/2023 9:22 AM EST COMPREHENSIVE METABOLIC PANEL Lab STAT Anemia due to stage 3a chronic kidney disease 07/15/2023 9:22 AM EST FERRITIN Lab STAT Anemia due to stage 3a chronic kidney disease 07/15/2023 9:22 AM EST FOLIC ACID Lab STAT Anemia due to stage 3a chronic kidney disease 07/15/2023 9:22 AM EST VITAMIN B12 Lab STAT Anemia due to stage 3a chronic kidney disease 07/15/2023 9:22 AM EST IRON SCREEN, INCLUDING TIBC Lab STAT Anemia due to stage 3a chronic kidney disease 07/15/2023 9:22 AM EST CBC Lab STAT Anemia due to stage 3a chronic kidney disease 07/15/2023 9:22 AM EST DIFFERENTIAL, AUTOMATED Lab STAT Anemia due to stage 3a chronic kidney disease 07/15/2023 9:22 AM EST Scheduled Procedures Name Priority Associated [...] Additional history exists CKD PHOS USE SMARTSET 60498 09/18/2023 020 02/2023, 08/29/2021, 08/02/2020, Additional history exists HbA1c 09/19/2023 03/19/2023, 020 02/2023, 05/28/2022, Additional history exists Diabetic Eye Exam 10/09/2023 10/09/2022, , 06/12/2022, Additional history exists GFR 12/16/2023 06/17/2023, 05/13, 02/19/2023, Additional history exists Albumin/Creatinine Ratio 02/20/2024 023, 03/14/2022, 05/19/2021, Additional history exists CKD HGB USE SMARTSET 58519 06/28/202406/28, 06/28/2023, 06/17/2023, Additional history exists COLONOSCOPY-EVERY [...] encounter Medical Devices Implanted Type Area Manager Contract Device Identifier Shelf Expiration Date Model / Serial / Lot Envista Hydrophobic Acrylic Intraocular Lens Implanted:Qty: 1 on 12/25/2016 by Raul Neely MD at [facility] Right: Eye [employer] 11/09/2018 [id number] / [id number] / [id number] Envista Mx60 +10.0 D Implanted:Qty: 1 on 01/29/2017 by Raul Neely MD at [facility] Left: Eye 11/09/2018 [id number] / [id number] / [id number] documented as of this encounter Visit Diagnoses Diagnosis Type 2 diabetes mellitus with diabetic neuropathy, with long-term current use of insulin (HCC) Anemia due to stage 3a chronic kidney disease documented in this encounter Advance Directives Latest [...] and were consensually agreed upon. Care Teams Drywall Carrier Relationship Specialty Start Date End Date Nancy Ryan DO [address] [place] [address] [place] [address] PCP - General Internal Medicine 09/11/18 documented as of this encounter
--- OUTSIDE RECORDS SUMMARY | 2023-11-13 21:39 | External Medical Summary ---
Author Name Unknown Address Unknown Organization K01[place] [place] [address] [facility] [address] Laboratory Report Ordering Provider Test Date Status ALEXANDRIA MASON 07/15/2023 09:22:50 Final Observation Date Value Abnormality Reference (Units ) Status HbA1C 07/15/2023 09:22:50 6.2 Above high normal 4. 0-5.6 (%) Final The use of HbA1c to monitor glycemic status is based on normal hemoglobin and HbA composition. This test should not be used in patients with abnormal hemoglobin that affects the half life of the red blood cell or the in vivo glycation rates. Glucose, estimated average 07/15/2023 09:22:50 131 Above high normal <126 (mg/dL) [place] white Performing [place] [facility] [place] [address] [facility] [address]
--- OUTSIDE RECORDS SUMMARY | 2023-11-13 21:39 | External Medical Summary | Summary of Care ---
Author Name Unknown Organization [facility] Address [address] [place] [address] Phone [phone] Care Team Providers Care Glaze Supervisor Name Role Phone Ryan Nancy Muro Primary Care Provider [phone] Reason for Visit * Reason Onset Date Comments Referral 07/01/2023 HTN Environmental Services Supervisor Encounter Details Date Type Department Care Team (Late st Contact Info) Description 07/01/2023 Telephone Pharmacy, [address] [place] [address] [place] [address] Referral (HTN Environmental Services Supervisor) Allergies No known active allergiesdocumented as of this encounter (statuses as of 07/01/2023) Medications Medication Sig Dispensed Refills Start Date End Date Status MULTIPLE VITAMIN PO TABS 1 TABLET DAILY 0 07/03/2011 Active OMEGA-3 FISH OIL 1000 MG PO CAPS Take one capsule by mouth daily 0 07/03/2011 Active VITAMIN B-12 1000 MCG PO TABSIndications:Vi tamin B12 deficiency 1 TABLET DAILY 90 Tab 1 07/19/2014 Active Blood Glucose Monitoring Suppl (Balzo ULTRA SYSTEM) W/DEVICE KITIndications:DM type 2, goal [...] hemoglobin A1c goal of less than 7.0% ([facility]) Use once a day with [...] DVT (deep vein thrombosis),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 management encounter,terminal carman current use of anticoagulant therapy Take 5 [...] the morning. 0 06/04/2023 Active Epoetin Gautam-epbx 19322 UNIT/ML Injection Solution (Retacrit) Inject intravenously. 0 [...] as of this encounter (statuses as of 07/01/2023) Active Problems Problem Noted Date Diagnosed Date [...] as of this encounter (statuses as of 07/01/2023) Resolved Problems Problem Noted Date Diagnosed Date [...] as of this encounter (statuses as of 07/01/2023) Immunizations Name Administration Dates Next Due COVID-19 mRNA, LNP-s, No Pre serve, 2-Dose Series ([employer]) 06/20/2021,10/22/2020,09/26/2020 COVID-19, LNP-s, No Preserve , Jamie-sucrose, Ages 12+ (Pfizer) 03/13/2022 Covid-19, Mrna, Lnp-s, Pf, B ivalent, 30 Mcg, IM, 12 yrs and above ([employer]) 09/20/2022 Pneumococcal Conjugate Vacci ne, 20-valent ([id number]) 03/14/2022 Pneumococcal Polysaccharide PPV23 (Pneumovax) 03/19/2006 SEASONAL [...] Notes * Telephone Encounter - Jena Haas [facility] - 07/01/2023 4:18 PM EST Referral reviewed and is appropriate. Please schedule. Initial appt length: n/a Appointment type indicated: TelePHONIC Preferred Clinic for Appointment: Patient referred to [facility] clinic for hypertension on behalf of Alejandrina Sims MD . Referral reviewed and relevant pre-visit information listed below: HTN: Relevant history obtained from referral: Hyperkalemia, per nephro OV: Hyperkalemia w/ high K diet choices and likely element RTA 4 -diet chagnes as below -start sodium bicarb, torse per phone mssg; lower losartan -f/u lab Goal BP per referral: 140/90 BP Readings from Last 3 Encounters: 07/01/23 148/68 06/18/23 147/55 06/06/23 141/74 Current HTN Medications: Torsemide 20mg daily Losartan 50mg 1/2 tablet daily Carvedilol 6.25mg BID Follow-up upon alert Jena Haas [facility] 07/01/2023, 4:18 PM * Telephone Encounter - Juliet Robb [facility] - 07/01/2023 9:17 AM EST Comments Patient has been successfully enrolled to the [id number] hypertension self- management program.Standard alarm settings for this patient have been set as follows: Average BP over 7 days > 140/90 Singular Systolic BP Reading < 90 or > 180 Singular Diastolic BP Reading <50 or > 120 Patient has been advised to take blood pressure daily. Please let us know if you would like any of the parameters or instructions altered for this patient. Pharmacist Medication Therapy Management: Minimum frequency patient should be seen in person for medication management: as appropriate per clinical condition and patient status By my signature, I understand that my patient Ronnie Wu will have his medication therapy managed by the [facility] Medication Therapy Disease Management [facility] ([facility]) per established policies,procedures, and protocols. I also certify that this referral may serve as an initiation of service for the management of drug therapy in the above noted patient. [facility] providers will be responsible for scheduling patient visits, obtaining appropriate laboratory studies, and adjusting medication management therapy per patient's need, in addition to those roles spelled out in the clinic policy, procedures, and drug management protocols. I understand that the service provided by the [facility] Clinic is voluntary and have informed patient that they can refuse the service at their discretion. I am aware that the [facility] Clinic will provide me with a copy of the patient encounter via my [employer] InBasket. I authorize the [facility] Clinic to carry out these activities on my behalf. I consider this program to be a necessary part of the patient's medical care. Gabby Bland, RN Order Specific Questions Referral Priority Within 10 days (routine) Where should this appointment be scheduled? [facility] Department: Specialist Specialty: Nephro Reason for Referral: HTN Goal BP: < 140/90 documented in this encounter Plan of Treatment Upcoming Encounters Date Type Department Care Team (Late st Contact Info) Description 07/10/2023 8:45 AM EST Office Visit Hematology/Oncolog y [facility] [place] [address] [facility] [place] [address] Fly Velazquez MD [address] [facility] [place] [address] 07/12/2023 5:30 PM EST 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 Pharmacy, [address] [place] [address] [place] [address] 07/15/2023 9:10 AM EST Laboratory Laboratory [address] [place] [phone] [facility] Lab [address] [place] [address] 07/16/2023 10:30 AM EST Immunization/Injection Hematology/Oncolog y Treatment, [place] [address] [place] [address] Nurse, Med 200 [facility] [place] [address] 07/17/2023 1:15 PM EST Office Visit Ophthalmology, [facility] [address] [place] [address] Mika Diaz, [address] [place] [address] 07/29/2023 9:00 AM EST Laboratory Laboratory [address] [place] [phone] [place] [address] 07/30/2023 10:30 AM EST Immunization/Injection Hematology/Oncolog y Treatment, [place] [address] [facility] [address] Nurse, Med 4 200 [facility] [place] [address] 08/13/2023 9:00 AM EST Laboratory Laboratory [address] [place] [phone] [place] [address] 08/14/2023 10:30 AM EST Immunization/Injection Hematology/Oncolog y Treatment, [place] [address] [facility] [address] Nurse, Med 4 200 [facility] [place] [address] 09/20/2023 8:50 AM EST Office Visit Family Medicine [address] [place] [phone] Nancy Ryan[address] [place] [address] 10/01/2023 9:00 AM EST Office Visit Cardiology [address] [place] [address] Prabhakar Henning PA-C 132 [place] [address] 10/23/2023 10:00 AM EDT Office Visit Sleep Disorders Ctr [facility] 132 [place] [phone] Dorothy Toscano, GLOBAL ACCOUNT MANAGER [address] [place] [address] 12/25/2023 2:00 PM EDT Office Visit Nephrology, [place] [address] [facility] [place] [address] Zemaitis, Beckie Tucker PA-C 200 [facility] [place] [address] Scheduled Procedures Name Priority Associated Diagnoses Date/Ti [...] Additional history exists CKD PHOS USE SMARTSET 03610 09/18/202302/2023, 08/29/2021, 08/02/2020, Additional history exists HbA1c 09/19/2023 03/19/2023, 02/2023, 05/28/2022, Additional history exists Diabetic Eye Exam 10/09/2023 10/09/2022, , 06/12/2022, Additional history exists GFR 12/16/2023 06/17/2023, 05/13, 02/19/2023, Additional history exists Albumin/Creatinine Ratio 02/20/2024 023, 03/14/2022, 05/19/2021, Additional history exists CKD HGB USE SMARTSET 54094 06/28/202406/28, 06/28/2023, 06/17/2023, Additional history exists COLONOSCOPY-EVERY [...] this encounter Medical Devices Implanted Type Area Mailing Machine Operator Device Identifier Shelf Expiration Date Model / Serial / Lot Envista Hydrophobic Acrylic Intraocular Lens Implanted:Qty: 1 on 12/25/2016 by Raul Neely MD at OR [facility] Right: Eye [employer] 11/09/2018 [id number] / [id number] / [id number] Envista Mx60 +10.0 D Implanted:Qty: 1 on 01/29/2017 by Raul Neely MD at OR [facility] Left: Eye 11/09/2018 [id number] / [id number] / [id number] documented as of this encounter Advance Directives [...] and were consensually agreed upon. Care Teams Glaze Supervisor Relationship Specialty Start Date End Date Nancy Ryan DO [address] [place] [address] [place] [phone] PCP - General Internal Medicine 09/11/18 documented as of this encounter
--- OUTSIDE RECORDS SUMMARY | 2023-11-13 21:39 | External Medical Summary | Summary of Care ---
Author Name Unknown Organization [facility] Address [address] [place] [address] Phone [phone] Care Team Providers Care Nurse Specialist Name Role Phone Lacy Ryanraheem Lunalalo ALVAREZ Primary Care Provider [phone] Reason for Visit * Reason Comments Follow Up 3m Encounter Details Date Type Department Care Team (Late st Contact Info) Description 07/10/2023 8:45 AM EST [facility] [address] [facility] [place] [address] Fly Velazquez MD [address] [place] [address] Anemia due to stage 3a chronic kidney disease *; Venous insufficiency; Venous stasis ulcer of right calf limited to breakdown of skin, unspecified whether varicose veins present (HCC) Allergies No known active allergiesdocumented as [...] 1 07/19/2014 Active Blood Glucose Monitoring Suppl (ONETOUCH ULTRA [...] of insulin ([facility]),Type 2 diabetes mellitus with hemoglobin A1c [...] of DVT (deep vein thrombosis),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 management encounter,director long term care current use of anticoagulant [...] the morning. 0 06/04/2023 Active Epoetin Gautam-epbx 35528 UNIT/ML Injection Solution (Retacrit) Inject intravenously. 0 [...] Non-obstructive. Noted on CT scan at [facility] 05/2019 Mild nonproliferative diabet ic [...] Diabetes Taxonomy. 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 of inactive term director long term care current use of anticoagulant therapy 0 [...] mRNA, LNP-s, No Pre serve, 2-Dose Series (Incanthera) 06/20/2021,10/22/2020,09/26/2020 COVID-19, LNP-s, No Preserve , Jamie-sucrose, Ages 12+ (Incanthera) 03/13/2022 Covid-19, Mrna, Lnp-s, Pf, B ivalent, 30 Mcg, IM, 12 yrs and above ([employer]) 09/20/2022 Pneumococcal Conjugate Vacci ne, 20-valent ([id number]) 03/14/2022 Pneumococcal Polysaccharide PPV23 (Pneumovax) 03/19/2006 SEASONAL [...] Sign Reading Time Taken Comments Blood Pressure 172/78 07/10/2023 8:46 AM EST Pulse 93 07/10/2023 8:46 AM EST Temperature 36.4 C (97.6 F) 07/10/2023 8:46 AM ES T Respiratory Rate 16 07/10/2023 8:46 AM EST Oxygen Saturation 97% 07/10/2023 8:46 AM EST Inhaled Oxygen Concentration - - Weight 150.3 kg (331 lb 4.8 oz) 07/10/2023 8:46 AM EST Height - - Body Mass Index 46.21 05/15/2023 10:39 AM EDT documented in this encounter Progress Notes * Fly Velazquez MD - 07/10/2023 8:45 AM EST NAME: Ronnie Wu :1955 68-year-old male, DIAGNOSIS: Anemia because of abnormal kidney function test ( stage 3 a) - previous history of lower extremity DVT, he is on long-term anticoagulation, right lower extremity DVT earlier in 1985, he is on oral Coumadin treatment since then, -chronic bilateral leg edema and leg ulceration for the last 4 to 5 years. CURRENT TREATMENT: Currently he is on erythropoietin 75031 units every other week. Hemoglobin level has remained around 8.8 range[place] [address] units every other week. He has underlying sleep apnea, has been using CPAP on a regular basis. OTHER IMPORTANT HISTORY: -Sleep apnea, diagnosed about 8-10 years back, he is on CPAP therapy. - He was seen by stenotype machine operator, had stress test, as per the patient [...] denies any bleeding from the sites, he is on oral Coumadin, INR has remained therapeutic, no new cardiac or pulmonary symptom chronic leg edema, chronic leg ulceration, earlier he was followed at wound care clinic at [facility] as well as at [place],lately he is not followed by them, he is doing some home remedy with honey. No abdominal symptoms. No cardiac or pulmonary symptoms. No increasing headache. Currently he is not on any iron therapy. Past Medical History: Diagnosis Date Adult body mass index 50.0-59.9 (HCC) 09/26/2010 Anemia 06/11/2001 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 management encounter 01/30/2002 Closed fracture of head of radius left wrist Closed fracture of phalanx of finger Fractured Finger #5 right digit DM neuropathy, type II diabetes mellitus ([facility]) 05/08/2016 DM type 2, goal A1c below 7 06/09/2009 DM type 2, not at goal ([facility]) DVT (deep venous thrombosis) ([facility]) 03/18/2012 Dyslipidemia, goal LDL below 100 05/28/2013 Edema 01/17/2010 Fall 01/22/2023 "not sure ho-13 fractures and brain bleed" Fracture of clavicle, closed right colar bone fractured Gout 04/18/2004 uric acid 7.9 Gout of wrist director long term care (current) use of anticoagulants 03/16/2005 Lumbar degenerative disc disease 03/28/2016 Morbid Obesity, BMI not known Persistent insomnia 06/29/2014 Phlebitis and thrombophlebitis 06/11/2001 Phlebitis and thrombophlebitis of other deep vessels of lower extremities Restless legs syndrome 06/29/2014 Retinal tear 2006 left eye-treated at [facility] in [place] Sensory peripheral neuropathy 05/08/2016 SLEEP APNEA NOS 06/11/2001 Ulcer of lower limb ([facility]) 01/17/2010 Venous insufficiency 04/23/2013 Venous stasis dermatitis 11/09/2014 Venous stasis dermatitis of both lower extremities 11/30/2015 Vitamin B12 deficiency 05/28/2013 Past Surgical History: Procedure Laterality Date 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 Diaz INJECTION OF EYE DRUG Right 06/12/2022 # 1 Avastin OD, Dr. Diaz INJECTION OF EYE DRUG Right 09/17/2022 # 2 Avastin OD, Dr. Diaz INJECTION OF EYE DRUG Right 06/13/2023 #3 Avastin OD; Dr Diaz LASER TRABECULOPLASTY OTHER (INFORMATION) ACT 112 SIGNED 06/12/22 OPHTHALMOLOGY OTHER (INFORMATION) AVASTIN OUS CONSENT SIGNED Dr. Diaz/El (exp 06-12-23) RELIEVE INNER EYE PRESSURE Right 12/25/2016 right GONIOTOMY performed by Raul Neely MD at OR [facility] RELIEVE INNER EYE PRESSURE Left 01/24/2017 left GONIOTOMY performed by Raul Neely MD at OR [facility] RELIEVE INNER EYE PRESSURE Left 01/29/2017 left GONIOTOMY performed by Raul Neely MD at OR [facility] REMOVE CATARACT, INSERT LENS PROSTH Right 12/25/2016 right EXTRACAPSULAR CATARACT REMOVAL WITH INTRAOCULAR LENS performed by Raul Neely MD at OR [facility] REMOVE CATARACT, INSERT LENS PROSTH Left 01/24/2017 left EXTRACAPSULAR CATARACT REMOVAL WITH INTRAOCULAR LENS performed by Raul Neely MD at OR [facility] REMOVE CATARACT, INSERT LENS PROSTH Left 01/29/2017 left EXTRACAPSULAR CATARACT REMOVAL WITH INTRAOCULAR LENS performed by Raul Neely MD at OR [facility] VASC DUPLEX VENOUS LE BILAT 10/19/2009 no DVT, possible right inguinal lymph node 5x1x4 cm VEIN ABLATION EXTREMITY,ENDOVEN,1ST Left 04/2017 [facility] Current Outpatient Medications Medication Sig Dispense Refill MULTIPLE VITAMIN PO TABS 1 TABLET DAILY 0 OMEGA-3 FISH OIL 1000 MG PO CAPS Take one capsule by mouth daily 0 VITAMIN B-12 1000 MCG PO TABS 1 TABLET DAILY 90 Tab 1 Blood Glucose Monitoring Suppl (Coupon Wallet ULTRA SYSTEM) W/DEVICE KIT Use as directed [...] 1 Tablet by mouth in the morning. Warfarin Sodium 5 MG Oral Tablet (Coumadin) Take 5 mg (1 tablet)by mouth daily or as directed by anticoagulation clinic 100 Tablet 3 Allopurinol 300 MG Oral Tablet (Zyloprim) TAKE 1 TABLET BY MOUTH EVERY DAY 90 Tablet 3 Carvedilol 6.25 MG Oral Tablet (Coreg) TAKE 1 TABLET BY MOUTH TWICE A DAY WITH BREAKFAST AND EATWDO982 Tablet 3 Insulin Glargine Solostar 100 UNIT/ML Subcutaneous Solution Pen-injector (Basaglar KwikPen) Inject 48 Units under the skin [...] DX E11.9 Diabetes Mellitus 3 mL 5 Atorvastatin Calcium 20 MG Oral Tablet (Lipitor) TAKE 1 TABLET BY MOUTH EVERY DAY IN THE MORNING 90Tablet 0 Allopurinol 100 MG Oral Tablet (Zyloprim) Take [...] by mouth in the morning. Epoetin Gautam-epbx 19495 UNIT/ML Injection Solution (Retacrit) Inject intravenously. Torsemide 20 MG Oral Tablet (Demadex) Take 1 Tablet by mouth in the morning. 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 Extremities: No finger clubbing, No cyanosis. No leg edema. Skin:: No skin rash. SPINE: No spinal or paraspinal tenderness. LABS: Blood workup done on 06/07/2023 - BUN/Creat: 43/1.7, normal LFT, calcium 8.9. - Ferritin level --> 190. - Folic acid --> > 20 - Vitamin B-12 --> 827 - Serum iron 40, TIBC 339, iron saturation 12%. Blood workup done on 06/28/2023: - WBC 7900, H&H of 8.8/27.5, platelet count of 231,000. ASSESSMENT AND PLAN: 68-year-old male, who has anemia related to abnormal kidney function test, she is on erythropoietinat 04878 units every other week started on 04/09/2023. Overall tolerated well, blood pressure is slightly on the higher side, he is already on oral Coumadin for previously noted lower extremity DVT, has chronic bilateral leg edema and stasis ulcer and sohe is on long-term anticoagulant treatment. No new bleeding complications I reviewed his recent blood workup, hemoglobin level is around 8.8 g/dL. He is due for next erythropoietin treatment next week. He will have blood workup at that time. [place] [address] units every other week and see how he does. He should receive erythropoietin if the hemoglobin level is less than 11 g/dL. Currently he is not on oral iron replacement therapy, advised him not to take oral iron therapy at this time. I am planning to see him back in the clinic in about [address] Fly Velazquez Hem/Onc (This [...] this encounter Nursing Notes * Elizabeth Griffith CMA - 07/10/2023 8:47 AM EST Patient identifed by name and birthdate Do you have any concerns about pain management for today's visit? Yes. Patient instructed to discuss pain concerns with provider during the visit today Living Will or Advance Directive for Health Care as noted on the problem list. [facility] is a way you can talk to your provider on line through e-mail. Would you like to sign up? I can activate it for you? ALREADY ACTIVE Filed Vitals: 07/10/23 0846 BP: 172/78 Pulse: 93 Resp: 16 Temp: 36.4 C (97.6 F) TempSrc: Tympanic SpO2: 97% Weight: (!) 150.3 kg (331 lb 4.8 oz) Patient was instructed to not get up [...] Description 07/12/2023 5:30 PM EST 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 Pharmacy, [address] [place] [address] [place] [address] 07/15/2023 9:10 AM EST Laboratory Laboratory [address] [place] [phone] [place] [address] 07/16/2023 10:30 AM EST Immunization/Injection [facility]olog [facility], [place] [facility] [address] Nurse, Med 4 [address] [facility] [place] [address] 07/17/2023 1:15 PM EST Office Visit Ophthalmology, [facility] [address] [place] [address] Mika Diaz, DO [address] [place] [address] 07/29/2023 9:00 AM EST Laboratory Laboratory [address] [place] [phone] [place] [address] 07/30/2023 10:30 AM EST Immunization/Injection [facility]emat[facility]olog [facility], [place] [facility] [address] Nurse, Med 4 [address] [facility] [place] [address] 08/13/2023 9:00 AM EST Laboratory Laboratory [address] [place] [phone] [place] [address] 08/14/2023 10:30 AM EST Immunization/Injection Hematology[facility]olog [facility], [place] [address] [facility] [address] Nurse, Med 4 [address] [facility] [place] [address] 09/20/2023 8:50 AM EST Office Visit Family Medicine [address] [place] [phone] [place] [address] 10/01/2023 9:00 AM EST Office Visit Cardiology [address] [place] [address] Prabhakar Henning PAJoseC [address] [place] [address] 10/15/2023 1:45 PM EST Office Visit Hematology/Oncolog y [facility] [address] [facility] [place] [address] Fly Velazquez MD [address] [facility] [place] [address] 10/23/2023 10:00 AM EDT Office Visit Sleep Disorders Ctr [facility] [address] [place] [phone] Dorothy Toscano CRNP [address] [place] [address] 12/25/2023 2:00 PM EDT Office Visit Nephrology, [facility] [address] [place] [address] ZemaBeckie umanzor PA-C [address] [facility] [place] [address] Scheduled Procedures Name Priority Associated Diagnoses Date/Ti [...] Additional history exists CKD PHOS USE SMARTSET 69908 09/18/2023 02/0 02/2023, 08/29/2021, 08/02/2020, Additional history exists HbA1c 09/19/2023 03/19/2023, 02/0 02/2023, 05/28/2022, Additional history exists Diabetic Eye Exam 10/09/2023 10/09/2022, , 06/12/2022, Additional history exists GFR 12/16/2023 06/17/2023, 05/13, 02/19/2023, Additional history exists Albumin/Creatinine Ratio 02/20/2024 023, 03/14/2022, 05/19/2021, Additional history exists CKD HGB USE SMARTSET 28949 06/28/202406/28, 06/28/2023, 06/17/2023, Additional history exists COLONOSCOPY-EVERY [...] this encounter Medical Devices Implanted Type Area Laceworker Device Identifier Shelf Expiration Date Model / Serial / Lot Envista Hydrophobic Acrylic Intraocular Lens Implanted:Qty: 1 on 12/25/2016 by Raul Neely MD at OR [facility] Right: Eye [employer] 11/09/2018 [id number] / [id number] / [id number] Envista Mx60 +10.0 D Implanted:Qty: 1 on 01/29/2017 by Raul Neely MD at OR [facility] Left: Eye 11/09/2018 [id number] / [id number] / [id number] documented as of this encounter Visit Diagnoses Diagnosis Anemia due to stage 3a chronic kidney disease- Primary Venous insufficiency Unspecified venous (peripheral) insufficiency Venous stasis ulcer of right calf limited to breakdown of skin, unspecified whether varicose veins present (HCC) documented in this encounter Advance Directives [...] were consensually agreed upon. Care Teams Nurse Specialist Relationship Specialty Start Date End Date Nancy Ryan DO [address] [place] [address] [place] [phone] PCP - General Internal Medicine 09/11/18 documented as of this encounter
--- OUTSIDE RECORDS SUMMARY | 2023-11-13 21:39 | External Medical Summary ---
Author Name Unknown Address Unknown Organization K01:[facility] [place] - [address] [place] [address] Laboratory Report Ordering Provider Test Date Status [id number] 07/15/2023 09:22:50 Final Observation Date Value Abnormality Reference (Units ) Status Vitamin B12 07/15/2023 09:22:50 [phone] (pg/mL) Final Performing Location [facility] - [address] [place] [address]
--- OUTSIDE RECORDS SUMMARY | 2023-11-13 21:39 | External Medical Summary | Summary of Care ---
Author Name Unknown Organization [facility] Address [address] [place] [address] Phone [phone] Care Team Providers Care Cosmetic Consultant Name Role Phone Nancy Ryan DO Primary Care Provider Reason for Visit * Reason Comments Follow Up 3m Encounter Details Date Type Department Care Team (Late st Contact Info) Description 07/10/2023 8:45 AM EST [facility] [address] [place] [address] Fly Velazquez MD [address] [place] [address] Anemia due to stage 3a chronic kidney [...] 0 1 Active Blood Glucose Monitoring Suppl (Acacia Living ULTRA SYSTEM) W/DEVICE KITIndications:DM type 2, goal [...] of insulin ([facility]),Type 2 diabetes mellitus with hemoglobin A1c goal of less than 7.0% ([facility]) Use once a day with basaglar. DX e11.9 100 Each 3 2 Active Rhopressa 0.02 % Ophthalmic Solution Instill 1 Drop into the left eye at bedtime. 0 2 Active Vitamin C 1000 MG Oral Tablet Take 1 Tablet by mouth in the morning. 0 Active Warfarin Sodium 5 MG Oral Tablet (Coumadin)Indicati ons:History of DVT (deep vein thrombosis),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 management encounter,meterman current use of anticoagulant therapy Take 5 [...] of insulin ([facility]) Inject 48 Units under the skin in [...] of insulin ([facility]) Use TWICE a day to test glucose Diagnosis = E11.9 200 Each 3 3 Active Ozempic (2 MG/DOSE) 8 MG/3ML Subcutaneous Solution Pen-injector (Semaglutide (2 MG/DOSE))Indicatio ns:Type 2 diabetes mellitus with diabetic neuropathy, with long-term current use of insulin ([facility]) Inject 2 mg under the skin [...] of insulin ([facility]) Take 1 Tablet by mouth 2 [...] the morning. 0 3 Active Epoetin Gautam-epbx 89662 UNIT/ML Injection Solution (Retacrit) Inject 2 mL intravenously once. Every two weeks 0 Active Torsemide 20 MG Oral Tablet (Demadex) Take 1 Tablet by mouth in the morning. 90 Tablet 3 3 Active VITAMIN B-12 1000 MCG PO TABSIndications:Vi tamin B12 deficiency 1 TABLET DAILY 90 Tab 1 4 07/17/20 23 Discontinu ed(Medicat ion List Clean Up) Hospital, [...] CT scan at [facility] 05/2019 Mild nonproliferative diabet ic retinopathy of [...] Diabetes Taxonomy. 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 of inactive term meterman current use of anticoagulant therapy 0 03/16/2005 [...] mRNA, LNP-s, No Pre serve, 2-Dose Series ([employer]) 06/20/2021,10/22/2020,09/26/2020 COVID-19, LNP-s, No Preserve , Jamie-sucrose, Ages 12+ (Pfizer) 03/13/2022 Covid-19, Mrna, Lnp-s, Pf, B ivalent, 30 Mcg, IM, 12 yrs and above (Pfizer) 09/20/2022 Pneumococcal Conjugate Vacci ne, 20-valent ([id number]) 03/14/2022 Pneumococcal Polysaccharide PPV23 (Pneumovax) 03/19/2006 SEASONAL [...] CURRENT TREATMENT: Currently he is on erythropoietin 88107 units every other week. Hemoglobin level has remained around 8.8 range[place] [address] [place] every other week. He has underlying sleep apnea, has been using CPAP on a regular basis. OTHER IMPORTANT HISTORY: -Sleep apnea, diagnosed about 8-10 years back, he is on CPAP therapy. - He was seen by grain combiner, had stress test, as per the patient [...] was followed at wound care clinic at [facility] as well as at [place],lately he is not followed by them, he is doing some home remedy with honey. No abdominal symptoms. No cardiac or pulmonary symptoms. No increasing headache. Currently he is not on any iron therapy. Past Medical History: Diagnosis Date Adult body mass index 50.0-59.9 ([facility]) 09/26/2010 Anemia 06/11/2001 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 management encounter 01/30/2002 Closed fracture of head of radius left wrist Closed fracture of phalanx of finger Fractured Finger #5 right digit DM neuropathy, type II diabetes mellitus ([facility]) 05/08/2016 DM type 2, goal A1c below 7 06/09/2009 DM type 2, not at goal ([facility]) DVT (deep venous thrombosis) ([facility]) 03/18/2012 Dyslipidemia, goal LDL below 100 05/28/2013 Edema 01/17/2010 Fall 01/22/2023 "not sure ho-13 fractures and brain bleed" Fracture of clavicle, closed right colar bone fractured Gout 04/18/2004 uric acid 7.9 Gout of wrist meterman (current) use of anticoagulants 03/16/2005 Lumbar degenerative disc disease 03/28/2016 Morbid Obesity, BMI not known Persistent insomnia 06/29/2014 Phlebitis and thrombophlebitis 06/11/2001 Phlebitis and thrombophlebitis of other deep vessels of lower extremities Restless legs syndrome 06/29/2014 Retinal tear 2006 left eye-treated at [facility] in [place] Sensory peripheral neuropathy 05/08/2016 SLEEP APNEA NOS 06/11/2001 Ulcer of lower limb ([facility]) 01/17/2010 Venous insufficiency 04/23/2013 Venous stasis dermatitis 11/09/2014 Venous stasis dermatitis of both lower extremities 11/30/2015 Vitamin B12 deficiency 05/28/2013 Past Surgical History: Procedure Laterality Date 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 COLONOSCOPY, DIAGNOSTIC (RECTUM) 2008 Dr [facility] - [facility] COLONOSCOPY, DIAGNOSTIC (RECTUM) 02/09/2022 benign adenomatous polyp, fair prep, repeat 5 yrs / [facility] EGD, FLEXIBLE, DIAGNOSTIC 09/11/2018 adenomatous & TVA polyps, repeat 3 yrs/[facility] EGD, FLEXIBLE, DIAGNOSTIC 06/30/2021 mild gastric irritation, hyperplastic gastric polyps / [facility] FLUORESCEIN ANGIOGRAPHY MULTIFRAME Left 06/12/2022 FA, Dr. [...] performed by Raul Neely MD at OR [facility] RELIEVE INNER EYE PRESSURE Left 01/24/2017 left GONIOTOMY performed by Raul Neely MD at OR [facility] RELIEVE INNER EYE PRESSURE Left 01/29/2017 left GONIOTOMY performed by Raul Neely MD at OR [facility] REMOVE CATARACT, INSERT LENS PROSTH Right 12/25/2016 right EXTRACAPSULAR CATARACT REMOVAL WITH INTRAOCULAR LENS performed by Raul Neely MD at OR [facility] REMOVE CATARACT, INSERT LENS PROSTH Left 01/24/2017 left EXTRACAPSULAR CATARACT REMOVAL WITH INTRAOCULAR LENS performed by Raul Neely MD at OR [facility] REMOVE CATARACT, INSERT LENS PROSTH Left 01/29/2017 left EXTRACAPSULAR CATARACT REMOVAL WITH INTRAOCULAR LENS performed by Raul Neely MD at OR [facility] VASC DUPLEX VENOUS LE BILAT 10/19/2009 no [...] 90 Tab 1 Blood Glucose Monitoring Suppl (Acacia Living ULTRA SYSTEM) W/DEVICE KIT Use as directed [...] MOUTH TWICE A DAY WITH BREAKFAST AND [id number] Tablet 3 Insulin Glargine Solostar 100 UNIT/ML Subcutaneous Solution Pen-injector (PlatteraglGobble KwikPen) Inject 48 Units under the skin [...] by mouth in the morning. Epoetin Gautam-epbx 52273 UNIT/ML Injection Solution (Retacrit) Inject intravenously. Torsemide 20 MG Oral Tablet (Demadex) Take 1 Tablet by mouth in the morning. 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 [...] [place] the [place] [address] units every other week and see how [...] Care Team (Late st Contact Info) Description 07/22/2023 6:10 PM EST 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 Pharmacy, [address] [place] [address] [place] [address] 07/29/2023 9:00 AM EST Laboratory Laboratory [address] [place] [phone] [address] [place] [address] 07/30/2023 10:30 AM EST Immunization/Injection [facility] [place] [facility] [address] [facility], Med 4 [address] [facility] [place] [address] 08/13/2023 9:00 AM EST Laboratory Laboratory [address] [place] [phone] [address] [place] [address] 08/14/2023 10:30 AM EST Immunization/Injection [facility]olog [facility] [place] [facility] [address] [facility], Med 4 [address] [place] [address] 09/02/2023 1:00 PM EST Office Visit Ophthalmology, [facility] [address] [place] [address] Mika Diaz DO [address] [place] [address] 09/20/2023 8:50 AM EST Office Visit Family Medicine [address] [place] [phone] Nancy Ryan DO [address] [place] [address] [place] [address] 10/01/2023 9:00 AM EST Office Visit Cardiology [address] [place] [address] Prabhakar Henning PA-C [address] [place] [address] 10/15/2023 1:45 PM EST Office Visit Hematology/Oncolog y [facility] [place] [address] [place] [address] Fly Velazquez MD [address] [facility] [place] [address] 10/23/2023 10:00 AM EDT Office Visit Sleep Disorders Ctr Manny Browne [place] [address] [place] [phone] Dorothy Toscano CRNP [address] [place] [address] 12/25/2023 2:00 PM EDT Office Visit Nephrology, [facility] [address] [facility] [place] [address] Zemaitis, Beckie Tucker PA-C [address] [place] [address] Scheduled Procedures Name Priority Associated Diagnoses Date/Ti [...] Additional history exists CKD PHOS USE SMARTSET 29078 09/18/202302/2023, 08/29/2021, 08/02/2020, Additional history exists Diabetic Eye Exam 10/09/2023 10/09/2022, , 06/12/2022, Additional history exists GFR 01/14/2024 07/15/2023, 01/2023, 06/03/2023, Additional history exists HbA1c 01/14/2024 07/15/2023, 08/0 03/2023, 09/18/2022, Additional history exists Albumin/Creatinine Ratio 02/20/2024 023, 03/14/2022, 05/19/2021, Additional history exists CKD HGB USE SMARTSET 71667 07/15/202407/15, 07/15/2023, 06/28/2023, Additional history exists COLONOSCOPY-EVERY [...] this encounter Medical Devices Implanted Type Area Waybill Clerk Device Identifier Shelf Expiration Date Model / Serial / Lot Envista Hydrophobic Acrylic Intraocular Lens Implanted:Qty: 1 on 12/25/2016 by Raul Neely MD at OR [facility] Right: Eye [employer] 11/09/2018 [id number] / [id number] / [id number] Envista Mx60 +10.0 D Implanted:Qty: 1 on 01/29/2017 by Raul Neely MD at OR [facility] Left: Eye 11/09/2018 [id number] / [id number] / [id number] documented as of this encounter Visit Diagnoses [...] and were consensually agreed upon. Care Teams Cosmetic Consultant Relationship Specialty Start Date End Date Nancy Ryan DO [address] [place] [address] [place] [address] PCP - General Internal Medicine 09/11/18 documented as of this encounter
--- OUTSIDE RECORDS SUMMARY | 2023-11-13 21:39 | External Medical Summary | Summary of Care ---
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 (HCC) Allergies No known active allergiesdocumented as of this encounter (statuses as of 07/17/2023) Medications Medication Sig Dispensed Refills Start Date End Date Status MULTIPLE VITAMIN PO TABS 1 TABLET DAILY 0 1 Active OMEGA-3 FISH OIL 1000 MG PO CAPS Take one capsule by mouth daily 0 1 Active Blood Glucose Monitoring Suppl ([employer] SYSTEM) W/DEVICE KITIndications:DM type 2, goal A1c [...] with long-term current use of insulin ([facility]),Type 2 diabetes mellitus with hemoglobin [...] of DVT (deep vein thrombosis),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 management encounter,snf current use of anticoagulant therapy Take 5 [...] with long-term current use of insulin ([facility]) Inject 48 Units under the [...] with long-term current use of insulin ([facility]) Use TWICE a day to test glucose Diagnosis = E11.9 200 Each 3 3 Active Ozempic (2 MG/DOSE) 8 MG/3ML Subcutaneous Solution Pen-injector (Semaglutide (2 MG/DOSE))Indicatio ns:Type 2 diabetes mellitus with diabetic neuropathy, with long-term current use of insulin ([facility]) Inject 2 mg under the [...] with long-term current use of insulin ([facility]) Take 1 Tablet by mouth [...] the morning. 0 3 Active Epoetin Gautam-epbx 78851 UNIT/ML Injection Solution (Retacrit) Inject 2 mL [...] by mouth in the morning. 0 Active VITAMIN B-12 1000 MCG PO TABSIndications:Vi tamin B12 deficiency 1 TABLET DAILY 90 Tab 1 4 07/17/20 Discontinu ed(Medicat ion List Clean Up) Chlorthalidone 25 MG Oral Tablet (Hygroton) Take 1 Tablet by mouth in the morning. 30 Tablet 5 3 07/17/20 Discontinu ed(Medicat ion List Clean Up) Latanoprost 0.005 % Ophthalmic Solution (Xalatan) Instill 1 Drop into the left eye at bedtime. 0 07/17/20 Discontinu ed(Medicat ion List Clean Up) Hospital, [...] as of this encounter (statuses as of 07/17/2023) Active Problems Problem Noted Date Diagnosed Date [...] Diabetes Taxonomy. 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 AHP Gout of wrist documented as of this encounter (statuses as of 07/17/2023) Resolved Problems Problem Noted Date Diagnosed Date [...] as of this encounter (statuses as of 07/17/2023) Immunizations Name Administration Dates Next Due COVID-19 mRNA, LNP-s, No Pre serve, 2-Dose Series (Pfizer) 06/20/2021,10/22/2020,09/26/2020 COVID-19, LNP-s, No Preserve , Jamie-sucrose, Ages 12+ (Pfizer) 03/13/2022 Covid-19, Mrna, Lnp-s, Pf, B ivalent, 30 Mcg, IM, 12 yrs and above (Pfizer) 09/20/2022 Pneumococcal Conjugate Vacci ne, 20-valent ([id number]) 03/14/2022 Pneumococcal Polysaccharide PPV23 (Pneumovax) 03/19/2006 SEASONAL [...] of this encounter Progress Notes * Mika Diaz, - 07/17/2023 1:15 PM EST TIMEOUT PROCEDURE: correct patient identity-YES correct procedure and consent-YES verified side and site-YES correct patient position-YES all necessary equipment/prior studies present-YES reviewed special requirements of this patient-YES PROCEDURE: Alvarez-retinal photocoagulation, OD. DIAGNOSIS: PDR COMPLICATIONS: None. ANESTHESIA: Topical. INDICATIONS FOR PROCEDURE: Decrease risk of vision loss. CONSENT: Risk and benefits and alternatives were discussed with the patient including but not limited to decreased visual acuity, inflammation, corneal abrasion, pain, glaucoma, night blindness, hemorrhage, cataract, and the need for more procedures. Patient is aware of these risks and consents to the procedure. DESCRIPTION OF PROCEDURE: Informed written consent was obtained and the laser site was confirmed. The patient was brought to the laser room and seated in the exam chair. Topical proparacaine was administered and panretinal photocoagulation was performed in the standard fashion. Moderately intense clinton were achieved, using the following settings: DEBRA wavelength: yellow duration: 20 ms spot size settin microns power: 400-500 milliwatts total # of spots: 1232 The patient tolerated the procedure well and left in stable condition with follow-up instructions. Mika Diaz DO f/u 6-8 weeks OCT OU; WF OU documented in this encounter Nursing Notes * Lee Ann Awad RN - 07/17/2023 1:14 PM EST Ronnie Wu is a 68 year old year old male who presents for DR TIWARI. Last Office Visit: 06/13/2023 (in office), Visit date not found (telemedicine) [...] AM Do you drive? yes OCT image(s) not taken this visit documented in this encounter Plan of Treatment Upcoming Encounters Date Type Department Care Team (Late st Contact Info) Description 07/22/2023 6:10 PM EST 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 Pharmacy, [address] [place] [address] [place] [address] 07/29/2023 9:00 AM EST Laboratory Laboratory [address] [place] [phone] [place] [address] 07/30/2023 10:30 AM EST Immunization/Injection [facility]olog [facility], [place] [facility] [address] Nurse, Med [address] [facility] [place] [address] 08/13/2023 9:00 AM EST Laboratory Laboratory [address] [place] [phone] [address] [place] [address] 08/14/2023 10:30 AM EST Immunization/Injection Hematology/Oncolog y Treatment, [place] [facility] [address] Nurse, Med [address] [facility] [place] [address] 09/02/2023 1:00 PM EST Office Visit Ophthalmology, [facility] [address] [place] [address] Mika Diaz DO [address] [place] [address] 09/20/2023 8:50 AM EST Office Visit Family Medicine [address] [place] [phone] [address] [place] [address] 10/01/2023 9:00 AM EST Office Visit Cardiology [address] [place] [address] Prabhakar Henning PA-C [address] [place] [address] 10/15/2023 1:45 PM EST Office Visit Hematology/Oncolog y [facility] [place] [address] [facility] [place], [place] [address] Fly Velazquez MD [address] [facility] [place] [address] 10/23/2023 10:00 AM EDT Office Visit Sleep Disorders Ctr M[facility] [address] [place] [phone] Dorothy Toscano CRNP [address] [place] [address] 12/25/2023 2:00 PM EDT Office Visit Nephrology, [facility] [address] [facility] [place] [address] ZeBeckie cruz PA-C [address] [facility] [place] [address] Scheduled Procedures Name Priority Associated Diagnoses Date/Ti [...] Additional history exists CKD PHOS USE SMARTSET 96238 09/18/2023 020 02/2023, 08/29/2021, 08/02/2020, Additional history exists Diabetic Eye Exam 10/09/2023 10/09/2022, , 06/12/2022, Additional history exists GFR 01/14/2024 07/15/2023, 1101/2023, 06/03/2023, Additional history exists HbA1c 01/14/2024 07/15/2023, 080 03/2023, 09/18/2022, Additional history exists Albumin/Creatinine Ratio 02/20/2024 023, 03/14/2022, 05/19/2021, Additional history exists CKD HGB USE SMARTSET 16793 07/15/202407/15, 07/15/2023, 06/28/2023, Additional history exists COLONOSCOPY-EVERY [...] this encounter Medical Devices Implanted Type Area Referral Clerk Device Identifier Shelf Expiration Date Model / Serial / Lot Envista Hydrophobic Acrylic Intraocular Lens Implanted:Qty: 1 on 12/25/2016 by Raul Neely MD at OR [facility] Right: Eye [employer] 11/09/2018 [id number] / [id number] / [id number] Envista Mx60 +10.0 D Implanted:Qty: 1 on 01/29/2017 by Raul Neely MD at OR [facility] Left: Eye 11/09/2018 [id number] / [id number] / [id number] documented as of this encounter Visit Diagnoses Diagnosis 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 Care Teams Figure Model Relationship Specialty Start Date End Date Nancy Ryan DO [address] [place] [address] [place] [address] PCP - General Internal Medicine 09/11/18 documented as of this encounter
--- OUTSIDE RECORDS SUMMARY | 2023-11-13 21:39 | External Medical Summary ---
Author Name Unknown Address Unknown Organization [id number]:LABORATORY [facility] - [address] [facility] [address] Laboratory Report Ordering Provider Test Date Status JANE WOODRUFF 07/15/2023 09:22:50 Final Observation Date Value Abnormality Reference (Units ) Status SYNC LEUKOCYTES IN BLOOD BY AUTOMATED COUNT 07/15/2023 09:22:50 9.04 4.00-10.80 (K/uL) Final Segs 07/15/2023 09:22:50 72.5 40.0-75.0 (%) Final Lymphs % 07/15/2023 09:22:50 15.9 Below low normal 18.0-42.0 (%) Final Monos 07/15/2023 09:22:50 7.3 1.0-11.0 (%) Final Eosinophils 07/15/2023 09:22:50 3.5 0.0-6.0 (%) Final Basos 07/15/2023 09:22:50 0.6 0.0-2.0 (%) Final Immature Granulocyte, Percent 07/15/2023 09:22:50 0.2 0.0-2.0 (%) Final Absolute Segs 07/15/2023 09:22:50 6.55 1.80-7.70 (K/uL) Final Lymphs, absolute 07/15/2023 09:22:50 1.44 1.00-4.80 (K/ul) Final Monos, Abs 07/15/2023 09:22:50 0.66 0.00-1.10 (K/uL) Final Eos, Abs 07/15/2023 09:22:50 0.32 0.00-0.70 (K/uL) Final Basos, Abs 07/15/2023 09:22:50 0.05 0.00-0.20 (K/uL) Final Immature Granulocytes, Number 07/15/2023 09:22:50 0.02 0.00-0.20 (K/uL) Final Performing Location LABORATORY [facility] - [facility] [address] [facility] [address]
--- OUTSIDE RECORDS SUMMARY | 2023-11-13 21:39 | External Medical Summary ---
Author Name Unknown Address Unknown Organization [id number]:[facility] [facility] [address] Laboratory Report Ordering Provider Test Date Status JANE WOODRUFF 07/15/2023 09:22:50 Final Observation Date Value Abnormality Reference (Units ) Status WBC, Total 07/15/2023 09:22:50 9.04 4.00-10.80 (K/uL) Final RBC 07/15/2023 09:22:50 3.08 4.50-5.25 (M/uL) Final Hemoglobin 07/15/2023 09:22:50 9.2 Below low normal 14.0-16.8 (g/dL) Final HCT 07/15/2023 09:22:50 28.5 Below low normal 40.0-48.4 (%) Final MCV 07/15/2023 09:22:50 92.5 82.0-99.5 (fL) Final MCH 07/15/2023 09:22:50 29.9 27.0-34.0 (pg) Final MCHC 07/15/2023 09:22:50 32.3 32.0-36.0 (g/dL) Final RDW 07/15/2023 09:22:50 18.3 11.5-15.5 (%) Final Platelets 07/15/2023 09:22:50 229 140-400 (K/uL) Final MPV 07/15/2023 09:22:50 9.8 6.6-11.1 (fL) Final Nucleated erythrocytes/100 leukocytes [Ratio] in Blood by Automated count 07/15/2023 09:22:50 0 <=0 (/100 WBCs) Final Performing Location [facility] [place] [facility] [address] [facility] [address]
[2023-11-13] MEDS: ACETAMINOPHEN 325 MG TAB PO PRN (21:40)
--- OUTSIDE RECORDS SUMMARY | 2023-11-13 21:40 | External Medical Summary | Summary of Care ---
Author Name Unknown Organization [facility] Address [address] [place] [address] Phone [phone] Care Team Providers Care Tennis Professional Name Role Phone Shelby Nancy Muro Primary Care Provider Reason for Visit * Reason Onset Date Comments Home Monitoring Orders Only 06/26/2023 Encounter Details Date Type Department Care Team (Late st Contact Info) Description 06/26/2023 Home Monitoring Nephrology, [place] [address] [facility] [place] [address] Alejandrina Sims MD [address] [place] [address] HTN, goal below 130/80* Allergies No known active allergiesdocumented as of this encounter (statuses as of 06/26/2023) Medications Medication Sig Dispensed Refills Start Date End Date Status MULTIPLE VITAMIN PO TABS 1 TABLET DAILY 0 07/03/2011 Active OMEGA-3 FISH OIL 1000 MG PO CAPS Take one capsule by mouth daily 0 07/03/2011 Active VITAMIN B-12 1000 MCG PO TABSIndications:Vi tamin B12 deficiency 1 TABLET DAILY 90 Tab 1 07/19/2014 Active Blood Glucose Monitoring Suppl ([employer] ULTRA SYSTEM) W/DEVICE KITIndications:DM type 2, [...] with long-term current use of insulin ([facility]),Type 2 diabetes mellitus with hemoglobin A1c goal of less than 7.0% ([facility]) Use once a day with basaglar. DX e11.9 100 Each 3 10/17/2021 Active Rhopressa 0.02 % Ophthalmic Solution Instill 1 Drop into the left eye at bedtime. 0 05/17/2022 Active Vitamin C 1000 MG Oral Tablet Take 1 Tablet by mouth in the morning. 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 therapy Take [...] with long-term current use of insulin ([facility]) Inject 48 Units under the [...] with long-term current use of insulin ([facility]) Use TWICE a day to test glucose Diagnosis = E11.9 200 Each 3 03/19/2023 Active Ozempic (2 MG/DOSE) 8 MG/3ML Subcutaneous Solution Pen-injector (Semaglutide (2 MG/DOSE))Indicatio ns:Type 2 diabetes mellitus with diabetic neuropathy, with long-term current use of insulin ([facility]) Inject 2 mg under the [...] with long-term current use of insulin ([facility]) Take 1 Tablet by mouth [...] mouth in the morning. 0 06/04/2023 Active Torsemide 20 MG Oral Tablet (Demadex) Take 1 Tablet by mouth in the morning. 30 Tablet 5 06/04/2023 Active Epoetin Gautam-epbx 36620 UNIT/ML Injection Solution (Retacrit) Inject intravenously. 0 Active Hospital, Clinic, or Other Facility [...] as of this encounter (statuses as of 06/26/2023) Active Problems Problem Noted Date Diagnosed Date [...] Diabetes Taxonomy. 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 AHP Gout of wrist documented as of this encounter (statuses as of 06/26/2023) Resolved Problems Problem Noted Date Diagnosed Date [...] as of this encounter (statuses as of 06/26/2023) Immunizations Name Administration Dates Next Due COVID-19 mRNA, LNP-s, No Pre serve, 2-Dose Series (eXenSa) 06/20/2021,10/22/2020,09/26/2020 COVID-19, LNP-s, No Preserve , Jamie-sucrose, Ages 12+ (Pfizer) 03/13/2022 Covid-19, Mrna, Lnp-s, Pf, B ivalent, 30 Mcg, IM, 12 yrs and above (eXenSa) 09/20/2022 Pneumococcal Conjugate Vacci ne, 20-valent ([id number]) 03/14/2022 Pneumococcal Polysaccharide PPV23 (Pneumovax) 03/19/2006 SEASONAL [...] of this encounter Progress Notes * Ebony Grant, [facility] Experimental Welder - 06/26/2023 10:14 AM EST Patient has been successfully enrolled to the [place] [address] Hypertension Management program and provided with Bluetooth Connected Blood Pressure Cuff to facilitate their participation in remote monitoring. Standard alarm settings have been set as follows: Average BP over 7 days > 140/90 Singular Systolic BP Reading < 90 or > 180 Singular Diastolic BP Reading <50 or > 120 Patient has been advised to take blood pressure daily. Patient has been oriented to remote patient monitoring, assisted with initial device set-up, and provided with instruction and education regarding the program. Patient understands that this monitoring should not be used as a replacement for emergency and/or urgent care. If patient experiences any urgent symptoms, they are aware to call office/educational manager provider for additional instructions. In emergency situations, they will report directly to the ED for further evaluation. Referral has been placed to [facility] Pharmacist for participation per protocol. If you would like to customize the alert parameters and/or instructions for this patient, please let me know and we can have them changed. documented in this encounter Plan of Treatment Upcoming Encounters Date Type Department Care Team (Late st Contact Info) Description 06/28/2023 9:00 AM EST Laboratory Laboratory [address] [place] [phone] [facility] [address] [place] [address] 07/01/2023 11:30 AM EST Immunization/Injection Hematology/Oncolog y Treatment, [place] [address] [place] [address] Nurse, Med 200 [facility] [place] [address] 07/02/2023 7:00 AM EST 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 Pharmacy, [address] [place] [address] [place] [address] 07/10/2023 8:45 AM EST Office Visit Hematology/Oncolog y [facility] [place] [address] [place] [address] Fly Velazquez MD [address] [place] [address] 07/17/2023 1:15 PM EST Office Visit Ophthalmology, [facility], [place] [address] [place] [address] Mika Diaz, [address] [place] [address] 09/20/2023 8:50 AM EST Office Visit Family Medicine [address] [place] [phone] Nancy Ryan, [address] [place] [address] 10/01/2023 9:00 AM EST Office Visit Cardiology [address] [place] [address] Prabhakar Henning PA-C [address] [place] [address] 10/23/2023 10:00 AM EDT Office Visit Sleep Disorders Ctr [facility] [address] [place] [phone] Dorothy Toscano CRNP [address] [place] [address] 12/25/2023 2:00 PM EDT Office Visit Nephrology, [place] [address] [place] [address] Zemaitis, Beckie Tucker PA-C [address] [place] [address] Scheduled Procedures Name Priority Associated Diagnoses Date/Ti [...] Additional history exists CKD PHOS USE SMARTSET 23240 09/18/20230 02/2023, 08/29/2021, 08/02/2020, Additional history exists HbA1c 09/19/2023 03/19/2023, 0 02/2023, 05/28/2022, Additional history exists Diabetic Eye Exam 10/09/2023 10/09/2022, , 06/12/2022, Additional history exists GFR 12/16/2023 06/17/2023, 05/13, 02/19/2023, Additional history exists Albumin/Creatinine Ratio 02/20/2024 023, 03/14/2022, 05/19/2021, Additional history exists CKD HGB USE SMARTSET 30429 06/17/202406/17, 06/17/2023, 06/04/2023, Additional history exists COLONOSCOPY-EVERY 5 YRS AGES [...] this encounter Medical Devices Implanted Type Area Motorcycle Maker Device Identifier Shelf Expiration Date Model / Serial / Lot Envista Hydrophobic Acrylic Intraocular Lens Implanted:Qty: 1 on 12/25/2016 by Raul Neely MD at OR [facility] Right: Eye [employer] 11/09/2018 [id number] / [id number] Envista Mx60 +10.0 D Implanted:Qty: 1 on 01/29/2017 by Raul Neely MD at OR [facility] Left: Eye 11/09/2018 [id number] / [id number] / [id number] documented as of this encounter Visit Diagnoses [...] and were consensually agreed upon. Care Teams Tennis Professional Relationship Specialty Start Date End Date Nancy Ryan DO [address] [place] [address] [place] [address] PCP - General Internal Medicine 09/11/18 documented as of this encounter
--- OUTSIDE RECORDS SUMMARY | 2023-11-13 21:40 | External Medical Summary ---
Author Name Unknown Address Unknown Organization [id number]:[place] [facility] [place] [address] [facility] [address] Laboratory Report Ordering Provider Test Date Status JANE WOODRUFF 06/17/2023 09:12:59 Final Observation Date Value Abnormality Reference (Units ) Status SYNC LEUKOCYTES IN BLOOD BY AUTOMATED COUNT 06/17/2023 09:12:59 8.37 4.00-10.80 (K/uL) Final Segs 06/17/2023 09:12:59 71.1 40.0-75.0 (%) Final Lymphs % 06/17/2023 09:12:59 18.8 18.0-42.0 (%) Final Monos 06/17/2023 09:12:59 5.3 1.0-11.0 (%) Final Eosinophils 06/17/2023 09:12:59 3.8 0.0-6.0 (%) Final Basos 06/17/2023 09:12:59 0.6 0.0-2.0 (%) Final Immature Granulocyte, Percent 06/17/2023 09:12:59 0.4 0.0-2.0 (%) Final Absolute Segs 06/17/2023 09:12:59 5.96 1.80-7.70 (K/uL) Final Lymphs, absolute 06/17/2023 09:12:59 1.57 1.00-4.80 (K/ul) Final Monos, Abs 06/17/2023 09:12:59 0.44 0.00-1.10 (K/uL) Final Eos, Abs 06/17/2023 09:12:59 0.32 0.00-0.70 (K/uL) Final Basos, Abs 06/17/2023 09:12:59 0.05 0.00-0.20 (K/uL) Final Immature Granulocytes, Number 06/17/2023 09:12:59 0.03 0.00-0.20 (K/uL) Final Performing Location [facility] [facility] [place] [address] [facility] [address]
--- OUTSIDE RECORDS SUMMARY | 2023-11-13 21:40 | External Medical Summary | Summary of Care ---
Author Name Unknown Organization [facility] Address [address] [place] [address] Phone [phone] Care Team Providers Care Smash Fixer Name Role Phone Nancy Ryan DO Primary Care Provider [phone] Reason for Visit * Reason Comments Medication Administration Procrit * Episode Based Medications (Routine) - Authorized Specialty Diagnoses / Procedures Referred By Contac t Referred To Contact Diagnoses Anemia due to stage 3a chronic kidney disease Procedures CO INJ RETACRIT NON-ESRD USE Tame[facility] Pires [facility] [place] [address] [facility]c [facility] [address] [facility] [place] [phone] Referral ID Status Reason Start Date Expiration Date V isits Requested Visits Authorized [id number] Authorized 04/01/2023 07/22/[phone] Encounter Details Date Type Department Care Team (Late st Contact Info) Description 06/18/2023 11:15 AM EST Immunization/I njection Hematology/Oncology Treatment, [place] [address] [place] [phone] Nurse, Med [address] [facility] [place] [address] Anemia due to stage 3a chronic kidney disease * Allergies No known active allergiesdocumented as of this encounter (statuses as of 06/18/2023) Medications Medication Sig Dispensed Refills Start Date End Date Status MULTIPLE VITAMIN PO TABS 1 TABLET DAILY 0 07/03/2011 Active OMEGA-3 FISH OIL 1000 MG PO CAPS Take one capsule by mouth daily 0 07/03/2011 Active VITAMIN B-12 1000 MCG PO TABSIndications:Vi tamin B12 deficiency 1 TABLET DAILY 90 Tab 1 07/19/2014 Active Blood Glucose Monitoring Suppl ([employer] SYSTEM) W/DEVICE KITIndications:DM type 2, goal A1c [...] of DVT (deep vein thrombosis),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 0 [...] as of this encounter (statuses as of 06/18/2023) Active Problems Problem Noted Date Diagnosed Date [...] Taxonomy. 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 of inactive term senior living current use of anticoagulant therapy 0 03/16/2005 Overview: 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 of inactive term SPENCER (obstructive sleep apnea) 06/11/2001 Overview: CPAP 11 cwp? AHP Gout of wrist documented as of this encounter (statuses as of 06/18/2023) Resolved Problems Problem Noted Date Diagnosed Date [...] as of this encounter (statuses as of 06/18/2023) Immunizations Name Administration Dates Next Due COVID-19 mRNA, LNP-s, No Pre serve, 2-Dose Series (Pfizer) 06/20/2021,10/22/2020,09/26/2020 COVID-19, LNP-s, No Preserve , Jamie-sucrose, Ages 12+ (Pfizer) 03/13/2022 Covid-19, Mrna, Lnp-s, Pf, B ivalent, 30 Mcg, IM, 12 yrs and above (Pfizer) 09/20/2022 Pneumococcal Conjugate Vacci ne, 20-valent ([id number]) 03/14/2022 Pneumococcal Polysaccharide PPV23 (Pneumovax) 03/19/2006 SEASONAL [...] Sign Reading Time Taken Comments Blood Pressure 147/55 06/18/2023 11:20 AM EST Pulse 86 06/18/2023 11:20 AM EST Temperature - - Respiratory Rate - - Oxygen Saturation - - Inhaled Oxygen Concentration - - Weight - - Height - - Body Mass Index - - documented in this encounter Nursing Notes * Pat Trent LPN - 06/18/2023 11:29 AM EST Room 4. Pt arrived for Procrit injection. Hgb 8.8. BP WNL. Administered in RAMILA. Pt tolerated well. To return in 2 weeks. Discharged in stable condition. documented in this encounter Plan of Treatment Upcoming Encounters Date Type Department Care Team (Late st Contact Info) Description 06/25/2023 2:45 PM EST Office Visit Hematology/Oncology [facility] [address] [facility] [place] [address] Fly Velazquez MD [address] [facility] [place] [address] 06/28/2023 9:00 AM EST Laboratory Laboratory [address] [place] [phone] [place] [address] 07/01/2023 11:30 AM EST Immunization/Injecti on Hematology/Oncology Treatment, [place] 200 [facility] [place] [address] Nurse, Med [address] [facility] [place] [address] 07/17/2023 1:15 PM EST Office Visit Ophthalmology, [facility] 132 [facility] [place] [address] Mika Diaz, DO [address] [place] [address] 09/20/2023 8:50 AM EST Office Visit Family Medicine [address] [place] [phone] Nancy Ryan, [address] [place] [address] 10/01/2023 9:00 AM EST Office Visit Cardiology [address] [place] [address] Prabhakar Henning PAJoseC [address] [place] [address] 10/23/2023 10:00 AM EDT Office Visit Sleep Disorders Ctr [facility], [place] [address] [place] [phone] Dorothy Toscano CRNP [address] [place] [address] 12/25/2023 2:00 PM EDT Office Visit Nephrology, [facility] [address] [facility] [place] [address] Zemaitis, Beckie Tucker PA-C [address] [facility] [place] [address] Scheduled Procedures Name Priority Associated Diagnoses Date/Ti [...] Additional history exists CKD PHOS USE SMARTSET 20817 09/18/[address] 02/2023, 08/29/2021, 08/02/2020, Additional history exists HbA1c 09/19/2023 03/19/2023, 0 02/2023, 05/28/2022, Additional history exists Diabetic Eye Exam 10/09/2023 10/09/2022, , 06/12/2022, Additional history exists GFR 12/16/2023 06/17/2023, 05/13, 02/19/2023, Additional history exists Albumin/Creatinine Ratio 02/20/2024 023, 03/14/2022, 05/19/2021, Additional history exists CKD HGB USE SMARTSET 40983 06/17/202406/17, 06/17/2023, 06/04/2023, Additional history exists COLONOSCOPY-EVERY [...] this encounter Medical Devices Implanted Type Area Real Property Appraiser Device Identifier Shelf Expiration Date Model / Serial / Lot Envista Hydrophobic Acrylic Intraocular Lens Implanted:Qty: 1 on 12/25/2016 by Raul Neely MD at OR [facility] Right: Eye [employer] 11/09/2018 [id number] / [id number] / [id number] Envista Mx60 +10.0 D Implanted:Qty: 1 on 01/29/2017 by Raul Neely MD at OR [facility] Left: Eye 11/09/2018 [id number] / [id number] / [id number] documented as of this encounter Visit Diagnoses Diagnosis Anemia due to stage 3a chronic kidney disease- Primary documented in this encounter Administered Medications Inactive Administered Medications - up to 3 most recent administrations Medication Order MAR Action Action Date Dose Rate Site Epoetin Gautam 67674 UNIT/ML inj 20,000 Units 20,000 Units, Subcutaneous, ONCE, On Sat06/18/23 at 1200, For 1 dose Given 06/18/2023 11:24 AM EST 20,000 Units Arm Left Upper documented in this [...] and were consensually agreed upon. Care Teams Smash Fixer Relationship Specialty Start Date End Date Nancy Ryan DO [address] [place] [address] [place] [address] PCP - General Internal Medicine 09/11/18 documented as of this encounter
--- OUTSIDE RECORDS SUMMARY | 2023-11-13 21:40 | External Medical Summary ---
Author Name Unknown Address Unknown Organization K01:LABORATORY [place] [address] [facility] [address] [place] [address] Laboratory Report Ordering Provider Test Date Status JANI CHUNG 06/17/2023 09:12:59 Final Observation Date Value Abnormality Reference (Units ) Status BUN 06/17/2023 09:12:59 31 Above high normal 6-20 (mg/dL) Final Creatinine 06/17/2023 09:12:59 1.6 Above high normal 0.6-1.2 (mg/dL) Final Glomerular filtration rate/1.73 sq M.predicted [Volume Rate/Area] in Serum, Plasma or Blood by Creatinine-based formula (CKD-EPI) 06/17/2023 09:12:59 46 Below low normal >=60 (mL/min) Final eGFR is calculated based on the CKD-EPI 2020 equation SODIUM 06/17/2023 09:12:59 138 135-146 (m mol/L) Final Potassium 06/17/2023 09:12:59 5.2 Above high normal 3. 5-5.1 (mmol/L) Final Cl 06/17/2023 09:12:59 103 98-107 (mm ol/L) Final CO2 06/17/2023 09:12:59 22 22-32 (mmo l/L) Final Anion gap 06/17/2023 09:12:59 13 7-15 (mmol /L) Final Glucose 06/17/2023 09:12:59 163 Above high normal 70 -120 (mg/dL) Final Calcium 06/17/2023 09:12:59 8.8 8.4-10.2 ( mg/dL) Final Performing Location [facility] [facility] [place] - [facility] [address] [place] [address]
--- OUTSIDE RECORDS SUMMARY | 2023-11-13 21:40 | External Medical Summary ---
Author Name Unknown Address Unknown Organization [id number][place] [facility] [place] [address] [facility] [address] Laboratory Report Ordering Provider Test Date Status JANE WOODRUFF 06/28/2023 09:08:22 Final Observation Date Value Abnormality Reference (Units ) Status SYNC LEUKOCYTES IN BLOOD BY AUTOMATED COUNT 06/28/2023 09:08:22 7.94 4.00-10.80 (K/uL) Final Segs 06/28/2023 09:08:22 62.9 40.0-75.0 (%) Final Lymphs % 06/28/2023 09:08:22 21.2 18.0-42.0 (%) Final Monos 06/28/2023 09:08:22 9.2 1.0-11.0 (%) Final Eosinophils 06/28/2023 09:08:22 5.5 0.0-6.0 (%) Final Basos 06/28/2023 09:08:22 0.8 0.0-2.0 (%) Final Immature Granulocyte, Percent 06/28/2023 09:08:22 0.4 0.0-2.0 (%) Final Absolute Segs 06/28/2023 09:08:22 5.00 1.80-7.70 (K/uL) Final Lymphs, absolute 06/28/2023 09:08:22 1.68 1.00-4.80 (K/ul) Final Monos, Abs 06/28/2023 09:08:22 0.73 0.00-1.10 (K/uL) Final Eos, Abs 06/28/2023 09:08:22 0.44 0.00-0.70 (K/uL) Final Basos, Abs 06/28/2023 09:08:22 0.06 0.00-0.20 (K/uL) Final Immature Granulocytes, Number 06/28/2023 09:08:22 0.03 0.00-0.20 (K/uL) Final Performing Location [place] [facility] [place] [address] [facility] [address]
--- OUTSIDE RECORDS SUMMARY | 2023-11-13 21:40 | External Medical Summary ---
Author Name Unknown Address Unknown Organization [id number]:LABORATORY [facility] [place] - [facility] [address] [facility] [address] [facility] [address] Laboratory Report Ordering Provider Test Date Status JANE WOODRUFF 06/17/2023 09:12:59 Final Observation Date Value Abnormality Reference (Units ) Status WBC, Total 06/17/2023 09:12:59 8.37 4.00-10.80 (K/uL) Final RBC 06/17/2023 09:12:59 3.05 4.50-5.25 (M/uL) Final Hemoglobin 06/17/2023 09:12:59 8.8 Below low normal 14.0-16.8 (g/dL) Final HCT 06/17/2023 09:12:59 28.9 Below low normal 40.0-48.4 (%) Final MCV 06/17/2023 09:12:59 94.8 82.0-99.5 (fL) Final MCH 06/17/2023 09:12:59 28.9 27.0-34.0 (pg) Final MCHC 06/17/2023 09:12:59 30.4 32.0-36.0 (g/dL) Final RDW 06/17/2023 09:12:59 17.7 11.5-15.5 (%) Final Platelets 06/17/2023 09:12:59 201 140-400 (K/uL) Final MPV 06/17/2023 09:12:59 10.1 6.6-11.1 (fL) Final Nucleated erythrocytes/100 leukocytes [Ratio] in Blood by Automated count 06/17/2023 09:12:59 0 <=0 (/100 WBCs) Final Performing Location LABORATORY [facility] [place] - [address] [facility] [address]
--- OUTSIDE RECORDS SUMMARY | 2023-11-13 21:40 | External Medical Summary ---
Author Name Unknown Address Unknown Organization [id number]:[facility]ORY [facility] [place] - [facility] [address] [facility] [address] [facility] [address] Laboratory Report Ordering Provider Test Date Status JANE WOODRUFF 06/28/2023 09:08:22 Final Observation Date Value Abnormality Reference (Units ) Status WBC, Total 06/28/2023 09:08:22 7.94 4.00-10.80 (K/uL) Final RBC 06/28/2023 09:08:22 2.95 4.50-5.25 (M/uL) Final Hemoglobin 06/28/2023 09:08:22 8.8 Below low normal 14.0-16.8 (g/dL) Final HCT 06/28/2023 09:08:22 27.5 Below low normal 40.0-48.4 (%) Final MCV 06/28/2023 09:08:22 93.2 82.0-99.5 (fL) Final MCH 06/28/2023 09:08:22 29.8 27.0-34.0 (pg) Final MCHC 06/28/2023 09:08:22 32.0 32.0-36.0 (g/dL) Final RDW 06/28/2023 09:08:22 17.9 11.5-15.5 (%) Final Platelets 06/28/2023 09:08:22 231 140-400 (K/uL) Final MPV 06/28/2023 09:08:22 10.0 6.6-11.1 (fL) Final Nucleated erythrocytes/100 leukocytes [Ratio] in Blood by Automated count 06/28/2023 09:08:22 0 <=0 (/100 WBCs) Final Performing Location LAB[facility]ORY [facility] [place] - [address] [facility] [address]
--- OUTSIDE RECORDS SUMMARY | 2023-11-13 21:40 | External Medical Summary ---
Author Name Unknown Address Unknown Organization K01:LABORATORY [facility] [place] - [address] [place] [address] Laboratory Report Ordering Provider Test Date Status MIRYAM BRANNON 06/28/2023 09:08:22 Final Warfarin Therapy
INR: 2 .0-3.0 conventional anticoagulation
INR: 2.5- 3.5 high intensity anticoagulation Observation Date Value Abnormality Reference (Units ) Status PT 06/28/2023 09:08:22 29.3 Above high normal 11 .6-15.2 (seconds) Final INR 06/28/2023 09:08:22 2.7 Above high normal 0. 8-1.2 Final Performing Location LABORATORY [facility] [place] - [address] [place] [address]
--- OUTSIDE RECORDS SUMMARY | 2023-11-13 21:40 | External Medical Summary | Summary of Care ---
Author Name Unknown Organization [facility] Address [address] [place] [address] Phone [phone] Care Team Providers Care Telehealth Director Name Role Phone Nancy Ryan DO Primary Care Provider Reason for Visit * Reason Comments Dosage Adjustment Via Phone (anticoag Cl inic) Encounter Details Date Type Department Care Team (Latest Contact Info) Description 06/18/2023 7:00 AM EST 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 Pharmacy, [address] [place] [address] [place] [address] History of DVT (deep vein thrombosis)* Allergies [...] 1 07/19/2014 Active Blood Glucose Monitoring Suppl ([employer] ULTRA SYSTEM) W/DEVICE KITIndications:DM type 2, [...] of DVT (deep vein thrombosis),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 management encounter,correction current use of anticoagulant therapy Take 5 [...] 30 Tablet 5 06/04/2023 Active Epoetin Gautam-epbx 36887 UNIT/ML Injection Solution (Retacrit) Inject intravenously. 0 [...] Diabetes Taxonomy. 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 of inactive term correction current use of anticoagulant therapy 0 03/16/2005 [...] mRNA, LNP-s, No Pre serve, 2-Dose Series ([employer] 06/20/2021,10/22/2020,09/26/2020 COVID-19, LNP-s, No Preserve , Jamie-sucrose, Ages 12+ (Pfizer) 03/13/2022 Covid-19, Mrna, Lnp-s, Pf, B ivalent, 30 Mcg, IM, 12 yrs and above ([employer] 09/20/2022 Pneumococcal Conjugate Vacci ne, 20-valent ([id number]) 03/14/2022 Pneumococcal Polysaccharide PPV23 (Pneumovax) 03/19/2006 SEASONAL [...] this encounter Progress Notes * Jena Haas, [facility] - 06/18/2023 12:34 PM EST Images from the original note were not included. Medication Therapy Disease Management - 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 Patient: Ronnie Wu | : 1955 Subjective Contacts Type Contact Phone/Fax 06/18/2023 12:47 PM EST Phone (Outgoing) Ronnie Wu "Servando" (Self) [phone] (M) Left Message 06/18/2023 12:48 PM EST Phone (Outgoing) Denice Ronnie Jeffry "Servando" (Self) [phone] (H) Left Message Patient-Reported Symptoms: Objective Current Warfarin Dose As of 06/18/2023 Warfarin maintenance plan: 5 mg (5 mg x 1) every day INR Result As of 06/18/2023 INR goal: 2.0-3.0 INR used for dosin.9 (06/17/2023) Assessment & Plan Warfarin Plan As of 06/18/2023 Full warfarin instructions: 5 mg every day No change documented: Jena Haas RPh Next INR check: 07/01/2023 Repeat PT/INR in 2 week(s) Weekly dose: not changed Additional Dosing Information: Description Takes in AM Recent SDH due to trauma fall on 01/29 Jena Haas RPh Clinical Pharmacist 06/18/2023, 12:34 PM documented in this encounter Plan of Treatment Upcoming Encounters Date Type Department Care Team (Late st Contact Info) Description 06/25/2023 2:45 PM EST Office Visit Hematology/Oncolog y [facility] [place] [address] [place] [address] Fly Velazquez MD [address] [place] [address] 06/28/2023 9:00 AM EST Laboratory Laboratory [address] [place] [phone] [address] [place] [address] 07/01/2023 11:30 AM EST Immunization/Injection Hematology/Oncolog y Treatment, [place] [address] [place] [address] Nurse, Med [address] [place] [address] 07/02/2023 7:00 AM EST 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 Pharmacy, [address] [place] [address] [place] [address] 07/17/2023 1:15 PM EST [facility] [address] [place] [address] Mika Diaz [address] [place] [address] 09/20/2023 8:50 AM EST Office Visit Family Medicine [address] [place] [phone] [address] [place] [address] 10/01/2023 9:00 AM EST Office Visit Cardiology [address] [place] [address] Prabhakar Henning PAJoseC [address] [place] [address] 10/23/2023 10:00 AM EDT Office Visit Sleep Disorders Ctr [facility] [address] [place] [phone] Dorothy Toscano CRNP [address] [place] [address] 12/25/2023 2:00 PM EDT Office Visit Nephrology, [place] [address] [place] [address] ZemaitisBeckie PA-C [address] [place] [address] Scheduled Procedures Name Priority Associated Diagnoses Date/Ti [...] Additional history exists CKD PHOS USE SMARTSET 55223 09/18/2023/0 02/2023, 08/29/2021, 08/02/2020, Additional history exists HbA1c 09/19/2023 03/19/2023, 020 02/2023, 05/28/2022, Additional history exists Diabetic Eye Exam 10/09/2023 10/09/2022, , 06/12/2022, Additional history exists GFR 12/16/2023 06/17/2023, 05/13, 02/19/2023, Additional history exists Albumin/Creatinine Ratio 02/20/2024 023, 03/14/2022, 05/19/2021, Additional history exists CKD HGB USE SMARTSET 85733 06/17/202406/17, 06/17/2023, 06/04/2023, Additional history exists COLONOSCOPY-EVERY [...] this encounter Medical Devices Implanted Type Area Women'S Apparel Salesperson Device Identifier Shelf Expiration Date Model / Serial / Lot Envista Hydrophobic Acrylic Intraocular Lens Implanted:Qty: 1 on 12/25/2016 by Raul Neely MD at OR [facility] Right: Eye [employer] 11/09/2018 [id number] / [id number] / [id number] Envista Mx60 +10.0 D Implanted:Qty: 1 on 01/29/2017 by Raul Neely MD at OR [facility] Left: Eye 11/09/2018 [id number] / [id number] / [id number] documented as of this encounter Visit Diagnoses [...] and were consensually agreed upon. Care Teams Telehealth Director Relationship Specialty Start Date End Date Nancy Ryan DO [address] [place] [address] [place] [address] PCP - General Internal Medicine 09/11/18 documented as of this encounter
--- OUTSIDE RECORDS SUMMARY | 2023-11-13 21:40 | External Medical Summary | Summary of Care ---
Author Name Unknown Organization [facility] Address [address] [place] [address] Phone [phone] Care Team Providers Care Lighting Adviser Name Role Phone Nancy Ryan DO Primary Care Provider Reason for Visit * Reason Comments Medication Administration Procrit * Episode Based Medications (Routine) - Authorized Specialty Diagnoses / Procedures Referred By Contac t Referred To Contact Diagnoses Anemia due to stage 3a chronic kidney disease Procedures CA INJ RETACRIT NON-ESRD USE Tameka Pires CRNP [address] [facility] [place] [address] Anc Hem/Onc [place] DEPT CLOSED - 06/25/[address] [place] [address] [phone] Referral ID Status Reason Start Date Expiration Date V isits Requested Visits Authorized [id number] Authorized 04/01/2023 07/22/[phone] Encounter Details Date Type Department Care Team (Late st Contact Info) Description 07/01/2023 11:30 AM EST Immunization/I njection Hematology/Oncology Treatment, [facility] [address] [place] [address] Nurse, Med [address] [place] [address] [address] Anemia due to stage 3a chronic kidney [...] 1 07/19/2014 Active Blood Glucose Monitoring Suppl ([employer] ULTRA SYSTEM) W/DEVICE KITIndications:DM type 2, goal [...] of DVT (deep vein thrombosis),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 management encounter,shelter current use of anticoagulant therapy Take 5 [...] use of insulin ([facility]) Inject 48 Units under the [...] the morning. 0 06/04/2023 Active Epoetin Gautam-epbx 02394 UNIT/ML Injection Solution (Retacrit) Inject intravenously. 0 [...] Overview: Non-obstructive. Noted on CT scan at [facility] 05/2019 Mild nonproliferative diabet [...] Diabetes Taxonomy. 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 of inactive term shelter current use of anticoagulant therapy 0 03/16/2005 [...] (Pfizer) 09/20/2022 Pneumococcal Conjugate Vacci ne, 20-valent ([id number]) 03/14/2022 Pneumococcal Polysaccharide PPV23 (Pneumovax) 03/19/2006 SEASONAL [...] Sign Reading Time Taken Comments Blood Pressure 148/68 07/01/2023 11:38 AM EST Pulse 68 07/01/2023 11:38 AM EST Temperature - - Respiratory Rate - - Oxygen Saturation - - Inhaled Oxygen Concentration - - Weight - - Height - - Body Mass Index - - documented in this encounter Nursing Notes * Pat Trent LPN - 07/01/2023 11:51 AM EST Pt arrived for Procrit injection. Hgb 8.8. BP WNL. Administered in MARLENE. Pt tolerated well. To return in 2 weeks. Discharged in stable condition. documented in this encounter Plan of Treatment Upcoming Encounters Date Type Department Care Team (Late st Contact Info) Description 07/10/2023 8:45 AM EST Office Visit Hematology/Oncolog y [facility] [place] [address] [place] [address] Fly Velazquez MD [address] [place] [address] 07/12/2023 5:30 PM EST 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 Pharmacy, [address] [place] [address] [place] [address] 07/15/2023 9:10 AM EST Laboratory Laboratory [address] [place] [phone] [address] [place] [address] 07/16/2023 10:30 AM EST Immunization/Injection Hematology/Oncolog y Treatment, [place] [address] [facility] [place] [address] Nurse, Med [address] [facility] [place] [address] 07/17/2023 1:15 PM EST Office Visit Ophthalmology, [facility] [address] [place] [address] Mika Diaz DO [address] [place] [address] 07/29/2023 9:00 AM EST Laboratory Laboratory [address] [place] [phone] [address] [place] [address] 07/30/2023 10:30 AM EST Immunization/Injection Hematology/Oncolog y Treatment, [place] [address] [facility] [place] [address] Nurse, Med [address] [facility] [place] [address] 08/13/2023 9:00 AM EST Laboratory Laboratory [address] [place] [phone] [address] [place] [address] 08/14/2023 10:30 AM EST Immunization/Injection Hematology/Oncolog y Treatment, [place] [address] [facility] [place] [address] Nurse, Med [address] [facility] [place] [address] 09/20/2023 8:50 AM EST Office Visit Family Medicine [address] [place] [phone] Nancy Ryan[address] [place] [address] 10/01/2023 9:00 AM EST Office Visit Cardiology [address] [place] [address] Prabhakar Henning PAJoseC [address] [place] [address] 10/23/2023 10:00 AM EDT Office Visit Sleep Disorders Ctr Manny [facility]ne [place] [address] [place] [phone] Dorothy Toscano CRNP [address] [place] [address] 12/25/2023 2:00 PM EDT Office Visit Nephrology, [facility] [address] [place] [address] Zemaitis, Beckie Tucker PA-C [address] [place] [address] Scheduled Procedures Name Priority Associated Diagnoses Date/Ti [...] Additional history exists CKD PHOS USE SMARTSET 56204 09/18/202302/2023, 08/29/2021, 08/02/2020, Additional history exists HbA1c 09/19/2023 03/19/2023, 02/2023, 05/28/2022, Additional history exists Diabetic Eye Exam 10/09/2023 10/09/2022, , 06/12/2022, Additional history exists GFR 12/16/2023 06/17/2023, 05/13, 02/19/2023, Additional history exists Albumin/Creatinine Ratio 02/20/2024 023, 03/14/2022, 05/19/2021, Additional history exists CKD HGB USE SMARTSET 05132 06/28/202406/28, 06/28/2023, 06/17/2023, Additional history exists COLONOSCOPY-EVERY [...] this encounter Medical Devices Implanted Type Area Lacing String Cutter Device Identifier Shelf Expiration Date Model / Serial / Lot Envista Hydrophobic Acrylic Intraocular Lens Implanted:Qty: 1 on 12/25/2016 by Raul Neely MD at OR [facility] Right: Eye [employer] 11/09/2018 [id number] / [id number] / [id number] Envista Mx60 +10.0 D Implanted:Qty: 1 on 01/29/2017 by Raul Neely MD at OR [facility] Left: Eye 11/09/2018 [id number] / [id number] / [id number] documented as of this encounter Visit Diagnoses Diagnosis Anemia due to stage 3a chronic kidney disease- Primary documented in this encounter Administered Medications Inactive Administered Medications - up to 3 most recent administrations Medication Order MAR Action Action Date Dose Rate Site Epoetin Gautam 41737 UNIT/ML inj 20,000 Units 20,000 Units, Subcutaneous, ONCE, On 07/01/23 at 1215, For 1 dose Given 07/01/2023 11:41 AM EST 20,000 Units Arm Right Upper documented in this [...] and were consensually agreed upon. Care Teams Lighting Adviser Relationship Specialty Start Date End Date Nancy Ryan DO [address] [place] [address] [place] [phone] PCP - General Internal Medicine 09/11/18 documented as of this encounter
--- OUTSIDE RECORDS SUMMARY | 2023-11-13 21:40 | External Medical Summary | Summary of Care ---
Author Name Unknown Organization [facility] Address [address] [place] [address] Phone [phone] Care Team Providers Care Grinder Set Up Operator External Name Role Phone Nancy Ryan DO Primary Care Provider Reason for Referral * Evaluate & Treat - Unlimited Visits (Within 10 days (routine)) - Pending Review Specialty Diagnoses / Procedures Referred By Contac t Referred To Contact Pharmacist / Pharmacy Diagnoses HTN, goal below 130/80 Alejandrina Sims MD [address] [place] [address] Referral ID Status Reason Start Date Expiration Date Visits Requested Visits Authorized [id number] Pending Review Specialty Services Required 3 99 99 Question Answer Referral Priority Within 10 days (routine) Where should this appointment be scheduled? [facility] Department: Specialist Specialty: Nephro Reason for Referral: HTN Goal BP: < 140/90 Comments Patient has been successfully enrolled to the [id number] hypertension self-management program. Standard alarm settings for this patient have been [...] have his medication therapy managed by the [facility] Medication Therapy Disease Management [facility] ([facility]) per established policies, procedures, and protocols. I also certify that this referral may serve as an initiation of service for the management of drug therapy in the above noted patient. [facility] providers will be responsible for scheduling patient visits, obtaining appropriate laboratory studies, and adjusting medication management therapy per patient's need, in addition to those roles spelled out in the clinic policy, procedures, and drug management protocols. I understand that the service provided by the [facility] Clinic is voluntary and have informed patient that they can refuse the service at their discretion. I am aware that the [facility] Clinic will provide me with a copy of the patient encounter via my [employer]. I authorize the [facility] Clinic to carry out these activities on my behalf. I consider this program to be a necessary part of the patient's medical care. Gabby Bland RN Encounter Details Date Type Department Care Team (Late st Contact Info) Description 06/27/2023 Orders Only Nephrology, [place] [address] [facility] [place] [address] Alejandrina Sims MD [address] [facility] [place] [address] HTN, goal below 130/80* Allergies No known active allergiesdocumented as of this encounter (statuses as of 06/27/2023) Medications Medication Sig Dispensed Refills Start Date End Date Status MULTIPLE VITAMIN PO TABS 1 TABLET DAILY 0 07/03/2011 Active OMEGA-3 FISH OIL 1000 MG PO CAPS Take one capsule by mouth daily 0 07/03/2011 Active VITAMIN B-12 1000 MCG PO TABSIndications:Vi tamin B12 deficiency 1 TABLET DAILY 90 Tab 1 07/19/2014 Active Blood Glucose Monitoring Suppl ([employer] ULTRA SYSTEM) W/DEVICE KITIndications:DM type 2, [...] goal of less than 7.0% ([facility]) Use once a day with basaglar. DX e11.9 100 Each 3 10/17/2021 Active Rhopressa 0.02 % Ophthalmic Solution Instill 1 Drop into the left eye at bedtime. 0 05/17/2022 Active Vitamin C 1000 MG Oral Tablet Take 1 Tablet by mouth in the morning. 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 0 [...] as of this encounter (statuses as of 06/27/2023) Active Problems Problem Noted Date Diagnosed Date [...] Non-obstructive. Noted on CT scan at [facility] 05/2019 Mild nonproliferative diabet ic [...] as of this encounter (statuses as of 06/27/2023) Resolved Problems Problem Noted Date Diagnosed Date [...] as of this encounter (statuses as of 06/27/2023) Immunizations Name Administration Dates Next Due COVID-19 mRNA, LNP-s, No Pre serve, 2-Dose Series ([employer]) 06/20/2021,10/22/2020,09/26/2020 COVID-19, LNP-s, No Preserve , Jamie-sucrose, Ages 12+ (Pfizer) 03/13/2022 Covid-19, Mrna, Lnp-s, Pf, B ivalent, 30 Mcg, IM, 12 yrs and above ([employer]) 09/20/2022 Pneumococcal Conjugate Vacci ne, 20-valent ([id number]) 03/14/2022 Pneumococcal Polysaccharide PPV23 (Pneumovax) 03/19/2006 SEASONAL [...] Description 06/28/2023 9:00 AM EST Laboratory Laboratory [address] [place] [phone] [address] [place] [address] 07/01/2023 11:30 AM EST Immunization/Injection Hematology/Oncolog y Treatment, [place] [address] [place] [address] Nurse, Med 4 [address] [place] [address] 07/02/2023 7:00 AM EST 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 Pharmacy, [address] [place] [address] [place] [address] 07/10/2023 8:45 AM EST Office Visit Hematology/Oncolog y [facility] [address] [place] [address] Fly Velazquez MD [address] [place] [address] 07/17/2023 1:15 PM EST Office Visit Ophthalmology, [facility] [address] [place] [address] Mika Diaz DO [address] [place] [address] 09/20/2023 8:50 AM EST Office Visit Family Medicine [address] [place] [phone] Nancy Ryan[address] [place] [address] 10/01/2023 9:00 AM EST Office Visit Cardiology [address] [place] [address] Prabhakar Henning PA-C [address] [place] [address] 10/23/2023 10:00 AM EDT Office Visit Sleep Disorders Ctr [facility] [address] [place] [phone] Dorothy Toscano CRNP [address] [place] [address] 12/25/2023 2:00 PM EDT Office Visit Nephrology, [place] [address] [facility] [place] [address] ZeBeckie cruz PA-C [address] [facility] [place] [address] Scheduled Procedures Name Priority Associated Diagnoses Date/Ti me COLONOSCOPY FLEXIBLE PROXIMAL DIAGNOSTIC Recall History of colon polyps Scheduled Referrals Name Type Priority Associated Diagnoses Orde r Schedule PHARMACIST MEDS THERAPY MGMT REFERRAL OP Referral Within 10 days (routine) HTN, goal below 130/80 Ordered: 06/27/2023 Health Maintenance Due Date Last Done Comments Hepatitis B (1 of 3 - Risk 3-dose series) 2017 Depression Screening 01/28/2021 01/29/2020 DXA Scan 12/14/2022 12/14/2021 Diabetic Foot Exam 03/14/2023 03/14/2022, 0 11/30/2015, 11/09/2014, Additional history exists COVID-19 Vaccine ( season) 2023 09/20/2022, 03/13/2022, 06/20/2021, Additional history exists CKD PHOS USE SMARTSET 11737 09/18/2023 020 02/2023, 08/29/2021, 08/02/2020, Additional history exists HbA1c 09/19/2023 03/19/2023, 020 02/2023, 05/28/2022, Additional history exists Diabetic Eye Exam 10/09/2023 10/09/2022, , 06/12/2022, Additional history exists GFR 12/16/2023 06/17/2023, 05/13, 02/19/2023, Additional history exists Albumin/Creatinine Ratio 02/20/2024 023, 03/14/2022, 05/19/2021, Additional history exists CKD HGB USE SMARTSET 78330 06/17/202406/17, 06/17/2023, 06/04/2023, Additional history exists COLONOSCOPY-EVERY [...] this encounter Medical Devices Implanted Type Area Improvement Advisor Device Identifier Shelf Expiration Date Model / Serial / Lot Envista Hydrophobic Acrylic Intraocular Lens Implanted:Qty: 1 on 12/25/2016 by Raul Neely MD at OR [facility] Right: Eye [employer] 11/09/2018 [id number] / [id number] / [id number] Envista Mx60 +10.0 D Implanted:Qty: 1 on 01/29/2017 by Raul Neely MD at OR [facility] Left: Eye 11/09/2018 [id number] / [id number] documented as of this encounter Visit Diagnoses [...] and were consensually agreed upon. Care Teams Grinder Set Up Operator External Relationship Specialty Start Date End Date Nancy Ryan DO [address] [place] [address] [place] [address] PCP - General Internal Medicine 09/11/18 documented as of this encounter
--- OUTSIDE RECORDS SUMMARY | 2023-11-13 21:40 | External Medical Summary ---
Author Name Unknown Address Unknown Organization [id number]:[facility] [place] - [address] [place] [address] Laboratory Report Ordering Provider Test Date Status MIRYAM BRANNON 06/17/2023 09:12:59 Final Warfarin Therapy
INR: 2 .0-3.0 conventional anticoagulation
INR: 2.5- 3.5 high intensity anticoagulation Observation Date Value Abnormality Reference (Units ) Status PT 06/17/2023 09:12:59 22.1 Above high normal 11 .6-15.2 (seconds) Final INR 06/17/2023 09:12:59 1.9 Above high normal 0. 8-1.2 Final Performing Location [facility] [place] - [address] [place] [address]
--- OUTSIDE RECORDS SUMMARY | 2023-11-13 21:40 | External Medical Summary | Summary of Care ---
Author Name Unknown Organization [facility] Address [address] [place] [address] Phone [phone] Care Team Providers Care Human Performance Consultant Name Role Phone RyanNancy martinez Primary Care Provider [phone] Reason for Visit * Reason Onset Date Comments Medication Refill 06/28/2023 Encounter Details Date Type Department Care Team (Late st Contact Info) Description 06/28/2023 Refill NephrologyEn 200 [facility] [place] [address] Juliet Gunter MD [address] [place] [address] Allergies No known active allergiesdocumented as of this encounter (statuses as of 06/28/2023) Medications Medication Sig Dispensed Refills Start Date End Date Status MULTIPLE VITAMIN PO TABS 1 TABLET DAILY 0 1 Active OMEGA-3 FISH OIL 1000 MG PO CAPS Take one capsule by mouth daily 0 1 Active VITAMIN B-12 1000 MCG PO TABSIndications:Vi tamin B12 deficiency 1 TABLET DAILY 90 Tab 1 4 Active Blood Glucose Monitoring Suppl ([employer] ULTRA SYSTEM) W/DEVICE KITIndications:DM type 2, goal [...] E11.9 300 Strip 1 3 Active OneTouch Deloneal Lancets 30GIndications:Typ e 2 [...] the morning. 0 3 Active Epoetin Gautam-epbx 50811 UNIT/ML Injection Solution (Retacrit) Inject intravenously. 0 Active Torsemide 20 MG Oral Tablet (Demadex) Take 1 Tablet by mouth in the morning. 90 Tablet 3 3 Active Torsemide 20 MG Oral Tablet (Demadex) Take 1 Tablet by mouth in the morning. 30 Tablet 5 3 06/28/20 23 Discontinu ed(Refill) Hospital, Clinic, or Other [...] as of this encounter (statuses as of 06/28/2023) Active Problems Problem Noted Date Diagnosed Date [...] as of this encounter (statuses as of 06/28/2023) Resolved Problems Problem Noted Date Diagnosed Date [...] as of this encounter (statuses as of 06/28/2023) Immunizations Name Administration Dates Next Due COVID-19 mRNA, LNP-s, No Pre serve, 2-Dose Series ([email or web address]) 06/20/2021,10/22/2020,09/26/2020 COVID-19, LNP-s, No Preserve , Jamie-sucrose, Ages 12+ ([email or web address]) 03/13/2022 Covid-19, Mrna, Lnp-s, Pf, B ivalent, 30 Mcg, IM, 12 yrs and above (Pfizer) 09/20/2022 Pneumococcal Conjugate Vacci ne, 20-valent ([id number]) 03/14/2022 Pneumococcal Polysaccharide PPV23 (Pneumovax) 03/19/2006 SEASONAL [...] Telephone Encounter - Juliet Gunter MD - 06/28/2023 12:53 PM ESTSigned Prescriptions: Disp Refills Torsemide 20 MG Oral Tablet (Demadex) 90 Tab*3 Sig: Take 1 Tablet by mouth in the morning. Authorizing Provider: JULIET GUNTER * Telephone Encounter - Mireya Naqvi LPN - 06/28/2023 10:40 AM EST 90 day refill request from pharmacy Last Ov- 06/06/23 Next Ov- 12/25/23 documented in this encounter Plan of Treatment Upcoming Encounters Date Type Department Care Team (Late st Contact Info) Description 07/01/2023 11:30 AM EST Immunization/Injection Hematology/Oncolog y Treatment, [place] 200 [facility] [place] [address] Nurse, Med [address] [place] [address] [place] [address] 07/02/2023 7:00 AM EST 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 Pharmacy, [address] [place] [address] [place] [address] 07/10/2023 8:45 AM EST Office Visit Hematology/Oncolog y [facility] [place] 200 [facility] [place] [address] Fly Velazquez MD 200 [facility] [place] [address] 07/17/2023 1:15 PM EST Office Visit Ophthalmology, [facility] [address] [place] [address] Mika Diaz, DO [address] [place] [address] 09/20/2023 8:50 AM EST Office Visit Family Medicine [address] [place] [phone] Nancy Ryan[address] [place] [address] 10/01/2023 9:00 AM EST Office Visit Cardiology [address] [place] [address] Prabhakar Henning PAJoseC [address] [place] [address] 10/23/2023 10:00 AM EDT Office Visit Sleep Disorders Ctr Manny Browne, [place] [address] [place] [phone] Dorothy Toscano CRNP [address] [place] [address] 12/25/2023 2:00 PM EDT Office Visit Nephrology, [place] 200 [facility] [place] [address] ZemaBeckie umanzor PA-C 200 [facility] [place] [address] Scheduled Procedures Name Priority Associated Diagnoses Date/Ti [...] Additional history exists CKD PHOS USE SMARTSET 95843 09/18/2023 02/0 02/2023, 08/29/2021, 08/02/2020, Additional history exists HbA1c 09/19/2023 03/19/2023, 020 02/2023, 05/28/2022, Additional history exists Diabetic Eye Exam 10/09/2023 10/09/2022, , 06/12/2022, Additional history exists GFR 12/16/2023 06/17/2023, 05/13, 02/19/2023, Additional history exists Albumin/Creatinine Ratio 02/20/2024 023, 03/14/2022, 05/19/2021, Additional history exists CKD HGB USE SMARTSET 78975 06/17/202406/17, 06/17/2023, 06/04/2023, Additional history exists COLONOSCOPY-EVERY [...] this encounter Medical Devices Implanted Type Area Produce Sorter Device Identifier Shelf Expiration Date Model / Serial / Lot Envista Hydrophobic Acrylic Intraocular Lens Implanted:Qty: 1 on 12/25/2016 by Raul Neely MD at OR [facility] Right: Eye [employer] 11/09/2018 [id number] / [id number] / [id number] Envista Mx60 +10.0 D Implanted:Qty: 1 on 01/29/2017 by Raul Neely MD at [facility] Left: Eye 11/09/2018 [id number] / [id number] / [id number] documented as of this encounter Advance Directives [...] and were consensually agreed upon. Care Teams Human Performance Consultant Relationship Specialty Start Date End Date Nancy Ryan DO [address] [place] [address] [place] [address] PCP - General Internal Medicine 09/11/18 documented as of this encounter
--- OUTSIDE RECORDS SUMMARY | 2023-11-13 21:40 | External Medical Summary | Summary of Care ---
Author Name Unknown Organization [facility] Address [address] [place] [address] Phone [phone] Care Team Providers Care Pest Control Supervisor Name Role Phone Nancy Ryan DO Primary Care Provider [phone] Reason for Visit * Reason Comments Outpatient Testing Encounter Details Date Type Department Care Team (Late st Contact Info) Description 06/28/2023 9:00 AM EST Laboratory Laboratory [address] [place] [phone] [place] [address] History of DVT (deep vein thrombosis); 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 management encounter; skilled nursing current use of anticoagulant therapy; Anemia due [...] 1 07/19/2014 Active Blood Glucose Monitoring Suppl ([employer] SYSTEM) W/DEVICE KITIndications:DM type 2, goal A1c [...] of DVT (deep vein thrombosis),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 management encounter,skilled nursing current use of anticoagulant therapy Take 5 [...] 30 Tablet 5 06/04/2023 Active Epoetin Gautam-epbx 67647 UNIT/ML Injection Solution (Retacrit) Inject intravenously. 0 [...] mRNA, LNP-s, No Pre serve, 2-Dose Series (RPI ([employer])) 06/20/2021,10/22/2020,09/26/2020 COVID-19, LNP-s, No Preserve , Jamie-sucrose, Ages 12+ (Pfizer) 03/13/2022 Covid-19, Mrna, Lnp-s, Pf, B ivalent, 30 Mcg, IM, 12 yrs and above (RPI ([employer])) 09/20/2022 Pneumococcal Conjugate Vacci ne, 20-valent ([id number]) 03/14/2022 Pneumococcal Polysaccharide PPV23 (Pneumovax) 03/19/2006 SEASONAL [...] 11:30 AM EST Immunization/Injection Hematology/Oncolog y Treatment, [place] [address] [place] [address] Nurse, Med [address] [place] [address] 07/02/2023 7:00 AM EST 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 Pharmacy, [address] [place] [address] [place] [address] 07/10/2023 8:45 AM EST Office Visit Hematology/Oncolog y [facility] [address] [place] [address] Fly Velazquez MD [address] [place] [address] 07/17/2023 1:15 PM EST Office Visit Ophthalmology, [facility] [address] [place] [address] Mika Diaz DO [address] [place] [address] 09/20/2023 8:50 AM EST Office Visit Family Medicine [address] [place] [phone] Nancy Ryan[address] [place] [address] 10/01/2023 9:00 AM EST Office Visit Cardiology [address] [place] [address] Prabhakar Henning PADarron [address] [place] [address] 10/23/2023 10:00 AM EDT Office Visit Sleep Disorders Ctr [facility] [place] [phone] Dorothy Toscano CRNP [address] [place] [address] 12/25/2023 2:00 PM EDT Office Visit Nephrology, [place] 200 [facility] [place] [address] ZeBeckie cruz PA-C 200 [facility] [place] [address] Pending Results Name Type Priority Associated Diagnoses Date /Time PT INR Lab Routine History of DVT (deep vein thrombosis) 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 06/28/2023 9:08 AM EST CBC WITH WBC DIFFERENTIAL Lab STAT Anemia due to stage 3a chronic kidney disease 06/28/2023 9:08 AM EST CBC Lab STAT Anemia due to stage 3a chronic kidney disease 06/28/2023 9:08 AM EST DIFFERENTIAL, AUTOMATED Lab STAT Anemia due to stage 3a chronic kidney disease 06/28/2023 9:08 AM EST Scheduled Procedures Name Priority Associated [...] Additional history exists CKD PHOS USE SMARTSET 72799 09/18/2023 02/0 02/2023, 08/29/2021, 08/02/2020, Additional history exists HbA1c 09/19/2023 03/19/2023, 02/0 02/2023, 05/28/2022, Additional history exists Diabetic Eye Exam 10/09/2023 10/09/2022, , 06/12/2022, Additional history exists GFR 12/16/2023 06/17/2023, 05/13, 02/19/2023, Additional history exists Albumin/Creatinine Ratio 02/20/2024 023, 03/14/2022, 05/19/2021, Additional history exists CKD HGB USE SMARTSET 02075 06/17/202406/17, 06/17/2023, 06/04/2023, Additional history exists COLONOSCOPY-EVERY [...] this encounter Medical Devices Implanted Type Area Wrapper Operator Device Identifier Shelf Expiration Date Model / Serial / Lot Envista Hydrophobic Acrylic Intraocular Lens Implanted:Qty: 1 on 12/25/2016 by Raul Neely MD at OR [facility] Right: Eye [employer] 11/09/2018 [id number] / [id number] / [id number] Envista Mx60 +10.0 D Implanted:Qty: 1 on 01/29/2017 by Raul Neely MD at OR [facility] Left: Eye 11/09/2018 [id number] / [id number] / [id number] documented as of this encounter Visit Diagnoses Diagnosis History of DVT (deep vein thrombosis) Personal history of venous thrombosis and embolism 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 management encounter Encounter for therapeutic drug monitoring skilled nursing current use of anticoagulant therapy Anemia due [...] and were consensually agreed upon. Care Teams Pest Control Supervisor Relationship Specialty Start Date End Date Nancy Ryan DO [address] [place] [address] [place] [address] PCP - General Internal Medicine 09/11/18 documented as of this encounter
--- OUTSIDE RECORDS SUMMARY | 2023-11-13 21:40 | External Medical Summary | Summary of Care ---
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 30 Tablet 5 06/04/2023 Active Hospital, Clinic, or Other Facility Administered [...] as of this encounter (statuses as of 06/17/2023) Active Problems Problem Noted Date Diagnosed Date [...] Overview: Non-obstructive. Noted on CT scan at [facility] 05/2019 Mild nonproliferative diabet ic [...] as of this encounter (statuses as of 06/17/2023) Resolved Problems Problem Noted Date Diagnosed Date [...] as of this encounter (statuses as of 06/17/2023) Immunizations Name Administration Dates Next Due COVID-19 mRNA, LNP-s, No Pre serve, 2-Dose Series ([employer]) 06/20/2021,10/22/2020,09/26/2020 COVID-19, LNP-s, No Preserve , Jamie-sucrose, Ages 12+ (Pfizer) 03/13/2022 Covid-19, Mrna, Lnp-s, Pf, B ivalent, 30 Mcg, IM, 12 yrs and above ([facility]) 09/20/2022 Pneumococcal Conjugate Vacci ne, 20-valent ([id number]) 03/14/2022 Pneumococcal Polysaccharide PPV23 (Pneumovax) 03/19/2006 SEASONAL [...] Contact Info) Description 06/18/2023 11:15 AM EST Immunization/Injection Hematology/Oncolog y Treatment, [place] [address] [place] [address] Nurse, Med [address] [place] [address] 06/19/2023 7:00 AM EST 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 Pharmacy, [address] [place] [address] [place] [address] 06/25/2023 2:45 PM EST Office Visit Hematology/Oncolog y [facility] [address] [place] [address] Fly Velazquez MD [address] [place] [address] 06/28/2023 9:00 AM EST Laboratory Laboratory [address] [place] [phone] [place], Lab [address] [place] [address] 07/01/2023 11:30 AM EST Immunization/Injection [facility]ematology[facility] [place] [facility] [address] [facility] 200 [facility] [place] [address] 07/17/2023 1:15 PM EST Office Visit Ophthalmology, [facility] [address] [place] [address] Mika Diaz, [address] [place] [address] 09/20/2023 8:50 AM EST Office Visit Family Medicine [address] [place] [phone] Nancy Ryan [address] [place] [address] 10/01/2023 9:00 AM EST Office Visit Cardiology [address] [place] [address] Prabhakar Henning PA-C [address] [place] [address] 10/23/2023 10:00 AM EDT Office Visit Sleep Disorders Ctr Manny Browne [place] [address] [place] [phone] Dorothy Toscano CRNP [address] [place] [address] 12/25/2023 2:00 PM EDT Office Visit Nephrology, [facility] 200 [facility] [place] [address] ZeBeckie cruz PA-C 200 [facility] [place] [address] Pending Results Name Type Priority Associated Diagnoses Date /Time PT INR Lab Routine History of DVT (deep vein thrombosis) 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 06/17/2023 9:12 AM EST CBC WITH WBC DIFFERENTIAL Lab STAT Anemia due to stage 3a chronic kidney disease 06/17/2023 9:12 AM EST BASIC METABOLIC PANEL Lab Routine Hyperkalemia 06/17/2023 9:12 AM EST CBC Lab STAT Anemia due to stage 3a chronic kidney disease 06/17/2023 9:12 AM EST DIFFERENTIAL, AUTOMATED Lab STAT Anemia due to stage 3a chronic kidney disease 06/17/2023 9:12 AM EST Scheduled Procedures Name Priority Associated [...] Additional history exists CKD PHOS USE SMARTSET 69701 09/18/2023 02/0 02/2023, 08/29/2021, 08/02/2020, Additional history exists HbA1c 09/19/2023 03/19/2023, 020 02/2023, 05/28/2022, Additional history exists Diabetic Eye Exam 10/09/2023 10/09/2022, , 06/12/2022, Additional history exists GFR 12/03/2023 06/03/2023, 02/09, 02/13/2023, Additional history exists Albumin/Creatinine Ratio 02/20/2024 023, 03/14/2022, 05/19/2021, Additional history exists CKD HGB USE SMARTSET 06202 06/04/202406/04, 06/04/2023, 05/20/2023, Additional history exists COLONOSCOPY-EVERY 5 YRS AGES [...] this encounter Medical Devices Implanted Type Area Cellar Worker Device Identifier Shelf Expiration Date Model / Serial / Lot Envista Hydrophobic Acrylic Intraocular Lens Implanted:Qty: 1 on 12/25/2016 by Raul Neely MD at OR [facility] Right: Eye [employer] 11/09/2018 [id number] / [id number] / [id number] Envista Mx60 +10.0 D Implanted:Qty: 1 on 01/29/2017 by Raul Neely MD at [facility] Left: Eye 11/09/2018 [id number] / [id number] / [id number] documented as of this encounter Visit Diagnoses Diagnosis History of DVT (deep vein thrombosis) Personal history of venous thrombosis and embolism 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 management encounter 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 Care Teams Disability Hearing Officer Relationship Specialty Start Date End Date Nancy Ryan DO [address] [place] [address] [place] [address] PCP - General Internal Medicine 09/11/18 documented as of this encounter
--- OUTSIDE RECORDS SUMMARY | 2023-11-13 21:40 | External Medical Summary | Summary of Care ---
Author Name Unknown Organization [facility] Address [address] [place] [address] Phone [phone] Care Team Providers Care Benzene Washer Name Role Phone Nancy Ryan DO Primary Care Provider Reason for Visit * Reason Comments Dosage Adjustment Via Phone (anticoag Cl inic) Encounter Details Date Type Department Care Team (Latest Contact Info) Description 06/28/2023 5:30 PM EST 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 Pharmacy, [address] [place] [address] [address] [place] [address] History of DVT (deep vein thrombosis)* Allergies [...] 1 07/19/2014 Active Blood Glucose Monitoring Suppl ([employer] ULTRA SYSTEM) W/DEVICE KITIndications:DM type 2, goal [...] with long-term current use of insulin ([facility]),Type 2 diabetes mellitus with hemoglobin A1c goal of less than 7.0% ([facility]) Use once a day with basaglar. DX e11.9 100 Each 3 10/17/2021 Active Rhopressa 0.02 % Ophthalmic Solution Instill 1 Drop into the left eye at bedtime. 0 05/17/2022 Active Vitamin C 1000 MG Oral Tablet Take 1 Tablet by mouth in the morning. 0 Active Warfarin Sodium 5 MG Oral Tablet (Coumadin)Indicati ons:History of DVT (deep vein thrombosis),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 management encounter,assisted current use of anticoagulant therapy Take 5 [...] with long-term current use of insulin ([facility]) Inject 48 Units under the skin in [...] with long-term current use of insulin ([facility]) Use TWICE a day to test glucose Diagnosis = E11.9 200 Each 3 03/19/2023 Active Ozempic (2 MG/DOSE) 8 MG/3ML Subcutaneous Solution Pen-injector (Semaglutide (2 MG/DOSE))Indicatio ns:Type 2 diabetes mellitus with diabetic neuropathy, with long-term current use of insulin ([facility]) Inject 2 mg under the skin once [...] with long-term current use of insulin ([facility]) Take 1 Tablet by mouth 2 times [...] the morning. 0 06/04/2023 Active Epoetin Gautam-epbx 37348 UNIT/ML Injection Solution (Retacrit) Inject intravenously. 0 [...] mRNA, LNP-s, No Pre serve, 2-Dose Series ([employer]) 06/20/2021,10/22/2020,09/26/2020 COVID-19, LNP-s, No Preserve , Jamie-sucrose, Ages 12+ (Pfizer) 03/13/2022 Covid-19, Mrna, Lnp-s, Pf, B ivalent, 30 Mcg, IM, 12 yrs and above ([employer]) 09/20/2022 Pneumococcal Conjugate Vacci ne, 20-valent ([id number]) 03/14/2022 Pneumococcal Polysaccharide PPV23 (Pneumovax) 03/19/2006 SEASONAL [...] as of this encounter Progress Notes * Thalia Robin, [facility] - 06/28/2023 2:23 PM EST Medication Therapy Disease Management - 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 Patient: Ronnie Wu | : 1955 Subjective Contacts Type Contact Phone/Fax 06/28/2023 02:24 PM EST Phone (Outgoing) Ronnie Wu "Servando" (Self) [phone] (M) Spoke to Patient Patient-Reported Symptoms: Objective Current Warfarin Dose As of 06/28/2023 Warfarin maintenance plan: 5 mg (5 mg x 1) every day INR Result As of 06/28/2023 INR goal: 2.0-3.0 INR used for dosin.7 (06/28/2023) Assessment & Plan Warfarin Plan As of 06/28/2023 Full warfarin instructions: 5 mg every day No change documented: Thalia Robin RPh Next INR check: 07/12/2023 Repeat PT/INR in 2 week(s) to match heme labs Weekly dose: not changed Additional Dosing Information: Description Takes in AM Recent SDH due to trauma fall on 01/29 Thalia Robin RPh Clinical Pharmacist 06/28/2023, 2:24 PM documented in this encounter Plan of Treatment Upcoming Encounters Date Type Department Care Team (Late st Contact Info) Description 07/01/2023 11:30 AM EST Immunization/Injection Hematology/Oncolog y Treatment, [place] [address] [place] [address] Nurse, Med 4 200 [facility] [place] [address] 07/10/2023 8:45 AM EST Office Visit Hematology/Oncolog y [facility] [place] 200 [facility] [place] [address] Fly Velazquez MD 200 [facility] [place] [address] 07/12/2023 5:30 PM EST 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 Pharmacy, [address] [place] [address] [place] [address] 07/17/2023 1:15 PM EST Office Visit Ophthalmology, [facility] 132 [facility] [place] [address] Mika Diaz, DO [address] [place] [address] 09/20/2023 8:50 AM EST Office Visit Family Medicine [address] [place] [phone] [place] [address] 10/01/2023 9:00 AM EST Office Visit Cardiology [address] [place] [address] Prabhakar Henning PA-C [address] [place] [address] 10/23/2023 10:00 AM EDT Office Visit Sleep Disorders Ctr Manny Browne [place] [address] [place] [phone] Dorothy Toscano CRNP [address] [place] [address] 12/25/2023 2:00 PM EDT Office Visit Nephrology, [facility] 200 [facility] [place] [address] Zemaitis, Beckie Tucker PA-C 200 [facility] [place] [address] Scheduled Procedures Name Priority Associated Diagnoses Date/Ti [...] Additional history exists CKD PHOS USE SMARTSET 21231 09/18/2023 02/0 02/2023, 08/29/2021, 08/02/2020, Additional history exists HbA1c 09/19/2023 03/19/2023, 02/0 02/2023, 05/28/2022, Additional history exists Diabetic Eye Exam 10/09/2023 10/09/2022, , 06/12/2022, Additional history exists GFR 12/16/2023 06/17/2023, 05/13, 02/19/2023, Additional history exists Albumin/Creatinine Ratio 02/20/2024 023, 03/14/2022, 05/19/2021, Additional history exists CKD HGB USE SMARTSET 94454 06/28/202406/28, 06/28/2023, 06/17/2023, Additional history exists COLONOSCOPY-EVERY [...] this encounter Medical Devices Implanted Type Area Deli Worker Device Identifier Shelf Expiration Date Model / Serial / Lot Envista Hydrophobic Acrylic Intraocular Lens Implanted:Qty: 1 on 12/25/2016 by Raul Neely MD at OR [facility] Right: Eye [employer] 11/09/2018 [id number] / [id number] / [id number] Envista Mx60 +10.0 D Implanted:Qty: 1 on 01/29/2017 by Raul Neely MD at OR [facility] Left: Eye 11/09/2018 [id number] / [id number] documented as of this encounter Visit Diagnoses [...] and were consensually agreed upon. Care Teams Benzene Washer Relationship Specialty Start Date End Date Nancy Ryan DO [address] [place] [address] [place] [address] PCP - General Internal Medicine 09/11/18 documented as of this encounter
--- OUTSIDE RECORDS SUMMARY | 2023-11-13 21:41 | External Medical Summary | Summary of Care ---
Author Name Unknown Organization [facility] Address [address] [place] [address] Phone [phone] Care Team Providers Care Professor Of Special Education Name Role Phone RyanNancy martinez Primary Care Provider [phone] Reason for Visit * Reason Onset Date Comments Medication Refill 06/04/2023 Encounter Details Date Type Department Care Team (Late st Contact Info) Description 06/04/2023 Refill NephrologyEn [address] [place] [address] Juliet Gunter MD [address] [place] [address] Allergies No known active allergiesdocumented as of this encounter (statuses as of 06/04/2023) Medications Medication Sig Dispensed Refills Start Date End Date Status MULTIPLE VITAMIN PO TABS 1 TABLET DAILY 0 07/03/20 11 Active OMEGA-3 FISH OIL 1000 MG PO CAPS Take one capsule by mouth daily 0 07/03/20 11 Active VITAMIN B-12 1000 MCG PO TABSIndications:V itamin B12 deficiency 1 TABLET DAILY 90 Tab 1 07/19/20 14 Active Blood Glucose Monitoring Suppl (KDPOF ULTRA SYSTEM) W/DEVICE KITIndications:DM type 2, goal [...] of DVT (deep vein thrombosis),Antic oagulation management encounter,[facility] current use of anticoagulant therapy Take 5 mg (1 tablet)by mouth daily or as directed by anticoagulation clinic 100 Tablet 3 10/16/19 23 Active Allopurinol 300 MG Oral Tablet (Zyloprim) TAKE 1 TABLET BY MOUTH EVERY DAY 90 Tablet 3 12/11/19 23 Active Carvedilol 6.25 MG Oral Tablet (Coreg) TAKE 1 TABLET BY MOUTH TWICE A DAY WITH BREAKFAST AND DINNER 180 Tablet 3 12/11/19 23 Active Insulin Glargine Solostar 100 UNIT/ML Subcutaneous Solution Pen-injector (Basaglar Pascale)Indicatio ns:Type 2 diabetes mellitus with diabetic neuropathy, with long-term current use of insulin ([facility]) Inject 48 Units under the skin in the morning. 45 mL 3 02/28/20 23 Active Acetic Acid 0.25 % Irrigation Solution Apply to legs as directed by the wound clinic. 1000 mL 2 03/01/20 23 Active OneTouch Verio In Vitro Strip (Glucose Blood) Use to test blood sugars twice a day. Dx. E11.9 300 Strip 1 03/13/20 23 Active OneTouch Deloneal Lancets 30GIndications:Ty pe 2 diabetes mellitus with [...] Mellitus 3 mL 5 03/26/20 23 Active Atorvastatin Calcium 20 MG Oral Tablet (Lipitor)Indicati ons:Dyslipidemia, goal LDL below 70 TAKE 1 TABLET BY MOUTH EVERY DAY IN THE MORNING 90 Tablet 0 05/09/20 23 Active Allopurinol 100 MG Oral Tablet [...] in the morning. 0 06/04/20 23 Active Torsemide 20 MG Oral Tablet (Demadex) Take 1 Tablet by mouth in the morning. 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 (HCC) 1.25 mg IZ PRN 06/12/2022 06/12/2023 Active ROPivacaine (Naropin) inj 1.5 mgIndications: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 (HCC) 1.5 mg IJ PRN 06/12/2022 Active documented as of this encounter (statuses as of 06/04/2023) Active Problems Problem Noted Date Diagnosed Date [...] as of this encounter (statuses as of 06/04/2023) Resolved Problems Problem Noted Date Diagnosed Date [...] as of this encounter (statuses as of 06/04/2023) Immunizations Name Administration Dates Next Due COVID-19 mRNA, LNP-s, No Pre serve, 2-Dose Series (JiaThis) 06/20/2021,10/22/2020,09/26/2020 COVID-19, LNP-s, No Preserve , Jamie-sucrose, Ages 12+ (Pfizer) 03/13/2022 Covid-19, Mrna, Lnp-s, Pf, B ivalent, 30 Mcg, IM, 12 yrs and above (JiaThis) 09/20/2022 Pneumococcal Conjugate Vacci ne, 20-valent ([id number]) 03/14/2022 Pneumococcal Polysaccharide PPV23 (Pneumovax) 03/19/2006 SEASONAL [...] Telephone Encounter - Juliet Gunter MD - 06/04/2023 4:32 PM EDT Pls let pt know it will be torsemide 20 mg not 30 mg and ensure losartan dose lowered * Telephone Encounter - Juliet Gunter MD - 06/04/2023 4:32 PM EDTSigned Prescriptions: Disp Refills Sodium Bicarbonate 650 MG Oral Tablet 60 Tab*5 Sig: Take 2 Tablets by mouth in the morning and 2 Tablets at noon and 2 Tablets in the evening and 2 Tablets before bedtime. Authorizing Provider: JULIET GUNTER Torsemide 20 MG Oral Tablet (Demadex) 30 Tab*5 Sig: Take 1 Tablet by mouth in the morning. Author izing Provider: JULIET GUNTER * Telephone Encounter - Mireya Naqvi LPN - 06/04/2023 4:27 PM EDT Kidney labs stable but with elevated potassium and ongoing metabolic acidosis -sodium bicarbonate 1300 mg daily -change Lasix to torsemide 30 mg daily -lower losartan to 25 mg daily -repeat basic metabolic panel in 1 week documented in this encounter Plan of Treatment Upcoming Encounters Date Type Department Care Team (Late st Contact Info) Description 06/06/2023 3:00 PM EDT Office Visit Nephrology, [place] [address] [place] [address] Juliet Gunter MD [address] [place] [address] 06/13/2023 11:00 AM EDT Office Visit Ophthalmology, [facility] [address] [facility] [place] [address] Mika Diaz DO [address] [place] [address] 06/18/2023 9:00 AM EST Laboratory Laboratory [address] [place] [phone] [place] [address] 06/18/2023 11:15 AM EST Immunization/Injection Hematology/Oncolog y Treatment, [place] 200 [facility] [place] [address] Nurse, Med 4 200 [facility] [place] [address] 06/19/2023 7:00 AM EST 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 Pharmacy, [address] [place] [address] [place] [address] 06/25/2023 2:45 PM EST Office Visit Hematology/Oncolog y [facility] [place] 200 [facility] [place] [address] Fly Velazquez MD [address] [place] [address] 07/01/2023 11:00 AM EST Laboratory Laboratory [facility] [place] 200 [facility] [place] [phone] [facility] 200 [facility] [place] [address] 07/01/2023 11:30 AM EST Immunization/Injection Hematology/Oncolog y Treatment, [place] 200 [facility] [place] [address] Nurse, Med 4 [address] [place] [address] 09/20/2023 8:50 AM EST Office Visit Family Medicine [address] [place] [phone] Nancy Ryan[address] [place] [address] 10/01/2023 9:00 AM EST Office Visit Cardiology [address] [place] [address] Prabhakar Henning PA-C [address] [place] [address] 10/23/2023 10:00 AM EDT Office Visit Sleep Disorders Ctr [facility] [address] [place] [phone] Dorothy Toscano CRNP [address] [place] [address] Scheduled Procedures Name Priority Associated Diagnoses Date/Ti [...] 2023 09/20/2022, 03/13/2022, 06/20/2021, Additional history exists DIABETES-EYE EXAM 06/12/2023 06/12/2022, , 08/10/2019, Additional history exists CKD PHOS USE SMARTSET 43551 09/18/2023 020 02/2023, 08/29/2021, 08/02/2020, Additional history exists HbA1c 09/19/2023 03/19/2023, 02/2023, 05/28/2022, Additional history exists GFR 12/03/2023 06/03/2023, 02/09, 02/13/2023, Additional history exists Albumin/Creatinine Ratio 02/20/2024 023, 03/14/2022, 05/19/2021, Additional history exists CKD HGB USE SMARTSET 50580 06/04/202406/04, 06/04/2023, 05/20/2023, Additional history exists COLONOSCOPY-EVERY [...] this encounter Medical Devices Implanted Type Area Manufacturing Engineer Automotive Device Identifier Shelf Expiration Date Model / Serial / Lot Envista Hydrophobic Acrylic Intraocular Lens Implanted:Qty: 1 on 12/25/2016 by Raul Neely MD at OR [facility] Right: Eye [employer] 11/09/2018 [id number] / [id number] Envista Mx60 +10.0 D Implanted:Qty: 1 on 01/29/2017 by Raul Neely MD at OR [facility] Left: Eye 11/09/2018 [id number] / [id number] documented as of this encounter Advance Directives [...] and were consensually agreed upon. Care Teams Professor Of Special Education Relationship Specialty Start Date End Date Nancy Ryan DO [address] [place] [address] [place] [phone] PCP - General Internal Medicine 09/11/18 documented as of this encounter
--- OUTSIDE RECORDS SUMMARY | 2023-11-13 21:41 | External Medical Summary | Summary of Care ---
Author Name Unknown Organization [facility] Address [address] [place] [address] Phone [phone] Care Team Providers Care Rotor Assembler Name Role Phone Ryan Nancy Muro Primary Care Provider [phone] Reason for Visit * Reason Comments Follow Up 10-12 week Dilation with OCT. Pt states "No changes" * Precert (Within 10 days (routine)) - Authorized Specialty Diagnoses / Procedures Referred By Juan Pablo ornelas Referred To Contact Ophthalmology Diagnoses Type 2 diabetes mellitus with proliferative diabetic retinopathy without macular edema, bilateral (HCC) Procedures MA BEVACIZUMAB INJECTION MA INTRAVITREAL NJX PHARMACOLOGIC AGT SPX Mika Diaz DO [address] [place] [address] 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]*; Diabetic retinopathy of both eyes without macular edema associated with type 2 diabetes mellitus, unspecified retinopathy severity ([facility]) Allergies No known active allergiesdocumented as of this encounter (statuses as of 06/14/2023) Medications Medication Sig Dispensed Refills Start Date End Date Status MULTIPLE VITAMIN PO TABS 1 TABLET DAILY 0 07/03/2011 Active OMEGA-3 FISH OIL 1000 MG PO CAPS Take one capsule by mouth daily 0 07/03/2011 Active VITAMIN B-12 1000 MCG PO TABSIndications:Vi tamin B12 deficiency 1 TABLET DAILY 90 Tab 1 07/19/2014 Active Blood Glucose Monitoring Suppl (Vapore ULTRA SYSTEM) W/DEVICE KITIndications:DM type 2, goal [...] insulin ([facility]) Inject 2 mg under [...] End Date Status bevaCIZumab (Avastin) inj 1.25 mgIndications:Diab etic retinopathy of both eyes without macular edema associated with type 2 diabetes mellitus, unspecified retinopathy severity (HCC) 1.25 mg IZ PRN 06/13/2023 4 Active ROPivacaine (Naropin) inj 1.5 mgIndications:Diab etic retinopathy of both eyes without macular edema associated with type 2 diabetes mellitus, unspecified retinopathy severity (HCC) 1.5 mg PERINEURAL PRN 06/13/2023 4 Active ROPivacaine (Naropin) inj 1.5 mgIndications:Prol iferative diabetic retinopathy of both eyes without macular edema associated with type 2 diabetes mellitus (HCC) 1.5 mg IJ PRN 06/12/2022 3 Discontinued documented as of this encounter (statuses as of 06/14/2023) Active Problems Problem Noted Date Diagnosed Date [...] as of this encounter (statuses as of 06/14/2023) Resolved Problems Problem Noted Date Diagnosed Date [...] as of this encounter (statuses as of 06/14/2023) Immunizations Name Administration Dates Next Due COVID-19 mRNA, LNP-s, No Pre serve, 2-Dose Series (OpenCounter) 06/20/2021,10/22/2020,09/26/2020 COVID-19, LNP-s, No Preserve , Jamie-sucrose, Ages 12+ (Pfizer) 03/13/2022 Covid-19, Mrna, Lnp-s, Pf, B ivalent, 30 Mcg, IM, 12 yrs and above (OpenCounter) 09/20/2022 Pneumococcal Conjugate Vacci ne, 20-valent ([id number]) 03/14/2022 Pneumococcal Polysaccharide PPV23 (Pneumovax) 03/19/2006 SEASONAL [...] encounter Progress Notes * Mika Diaz, - 06/13/2023 11:00 AM EDT [facility] [place] HPI: Ronnie Wu is a 68 year old male who presents for evaluation of DR Base Eye Exam Visual Acuity (Snellen - Linear) Right Left Dist cc 20/25 20/20 -2 Correction: Glasses Tonometry (Tonopen, 11:01 AM) Right Left Pressure 19 15 Pupils Light Shape React APD Right 3 Round Brisk None Left 3 Round Brisk None Visual Montes (Counting fingers) Right Left Full Full Extraocular Movement Right Left Full Full Neuro/Psych Oriented x3: Yes Mood/Affect: Normal Dilation Both eyes: 0.5% Proparacaine, 2.5% Phenylephrine, 1.0% Mydriacyl @ 11:01 AM EXTERNAL: The ocular adnexae are unremarkable. 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 Liu's recommendation (has been reported to cause heme) -improved appearance after stopping Rhopressa -recurrent NVA/heme in angle 06/13/2023 -Avastin 06/13/2023 -t/c start PRP -on warfarin and ASA for h/o DVT -recommend HgbA1C <7, BP and lipid control. 2. High myopia -s/p CE, Dr. Neely -had goniotomy at time of CE 2016 3. Retinal tears OU -s/p laser OU 4. POAG OU -on drops -followed in [facility] Dr. Liu -nasal goniotomy OU by Florinda 2016 I have provided a significant and separately identifiable visit with today's procedure because a medically necessary exam was performed on the eye that did not undergo the procedure. F/u 4-6 weeks dilate and OCT OU; end of day possible laser OD; dilate OD x 2 Mika Diaz, DO 0823 CC: Lori Fregoso, OD CC: Dr. Liu TIMEOUT PROCEDURE: correct patient identity-YES correct procedure and consent-YES verified side and site-YES correct patient position-YES all necessary equipment/prior studies present-YES reviewed special requirements of this patient-YES PROCEDURE: Intravitreal injection of Avastin 1.25mg OD INFORMED CONSENT: Patient is aware that this is an off-label use of Avastin and that Avastin is not FDA approved for this use. Risks, benefits and alternatives have been discussed with the patient. Risks include, but are not limited to: retinal tears, detachments, hemorrhage, glaucoma, infection, cataracts, need formore procedures and the potential risk of arterial thromboembolic events following use of intravitreal VEGF inhibitors defined as nonfatal stroke, nonfatal myocardial infarction or vascular . Patient is aware of these risks and consents to the procedure. DESCRIPTION OF PROCEDURE: The procedure site was confirmed. Topical proparacaine was applied to the surface of the eye after which subconjunctival anesthetic was administered. The area was prepped in the standard aseptic manner with 5% Betadine solution. An eyelid speculum was placed and 0.05 ml of a 25mg/ml solution of Avastin was injected 3.75 mm posterior to the limbus into the midvitreous cavity with a 30 gauge short needle. The Betadine was flushed from the eye, the eye speculum was removed and optic nerve perfusion was insured. The patient tolerated the procedure without difficulty and was given followup instructions and instructed to use ophthalmic ointment 3x/day as needed. Mika Diaz DO, performed the procedure in its entirety. documented in this encounter Nursing Notes * Veronika Dorantes MED ASSIST - 06/13/2023 11:27 AM EDT Ronnie Wu to receive third Avastin 1.25mg Injection of the Right eye. Correct eye confirmed with patient and marked by Mika Diaz DO Avastin 1.25mg lot # [id number] Exp. Date: 06/18/23 * Ludwig Lockett COA - 06/13/2023 10:55 AM EDT Ronnie Wu is a 68 year old year old male who presents for 10-12 week Dilation. Last Office Visit: 03/28/2023 (in office), Visit date not found (telemedicine) Patient currently states no change in vision. Are you diabetic? Yes. Do you check your blood sugars daily? YES. Fasting BS this mornin mg/dl. Last Hemoglobin A1C: Lab Results Component Value Date/Time HGBA1C 6.5 (H) 03/19/2023 10:09 AM HGBA1C 6.7 (H) 09/18/2022 10:38 AM HGBA1C 7.0 (H) 05/28/2022 03:03 PM HGBA1C 7.5 (H) 08/02/2020 09:46 AM HGBA1C 8.5 (H) 01/29/2020 12:36 PM HGBA1C 9.1 (H) 06/03/2019 10:[address]? yes OCT image(s) of both eyes acquired and filed/scanned into chart. documented in this encounter Plan of Treatment Upcoming Encounters Date Type Department Care Team (Late st Contact Info) Description 06/17/2023 9:00 AM EST Laboratory Laboratory [address] [place] [phone] [place] [address] 06/18/2023 11:15 AM EST Immunization/Injection Hematology/Oncolog y Treatment, [place] [address] [place] [address] Nurse, Med 4 [address] [place] [address] 06/19/2023 7:00 AM EST 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 Pharmacy, [address] [place] [address] [place] [address] 06/25/2023 2:45 PM EST Office Visit Hematology/Oncolog y [facility] [address] [place] [address] Fly Velazquez MD [address] [place] [address] 06/28/2023 9:00 AM EST Laboratory Laboratory [address] [place] [phone] [place], Lab [address] [place] [address] 07/01/2023 11:30 AM EST Immunization/Injection Hematology/Oncolog y Treatment, [place] [address] [place] [address] Nurse, Med 4 200 [facility] [place] [address] 07/17/2023 1:15 PM EST Office Visit Ophthalmology, [facility] [address] [place] [address] Mika Diaz, [address] [place] [address] 09/20/2023 8:50 AM EST Office Visit Family Medicine [address] [place] [address] [place] [phone] Nancy Ryan, [address] [place] [address] 10/01/2023 9:00 AM EST Office Visit Cardiology [address] [place] [address] [place] [address] Prabhakar Henning PAJoseC [address] [place] [address] 10/23/2023 10:00 AM EDT Office Visit Sleep Disorders Ctr Manny Browne, [place] [address] [place] [phone] Dorothy Toscano CRNP [address] [place] [address] 12/25/2023 2:00 PM EDT Office Visit Nephrology, [place] [address] [place] [address] ZemaitisBeckie PA-C [address] [place] [address] Scheduled Orders Name Type Priority Associated Diagnoses Orde r Schedule RETINA SCAN DIAGNOSTIC IMAGE, POSTERIOR Procedures Routine Diabetic retinopathy of both eyes without macular edema associated with type 2 diabetes mellitus, unspecified retinopathy severity (HCC) Ordered: 06/13/2023 Scheduled Procedures Name Priority Associated Diagnoses Date/Ti [...] Additional history exists CKD PHOS USE SMARTSET 67748 09/18/20230 02/2023, 08/29/2021, 08/02/2020, Additional history exists HbA1c 09/19/2023 03/19/2023, 02/2023, 05/28/2022, Additional history exists Diabetic Eye Exam 10/09/2023 10/09/2022, , 06/12/2022, Additional history exists GFR 12/03/2023 06/03/2023, 02/09, 02/13/2023, Additional history exists Albumin/Creatinine Ratio 02/20/2024 023, 03/14/2022, 05/19/2021, Additional history exists CKD HGB USE SMARTSET 53801 06/04/202406/04, 06/04/2023, 05/20/2023, Additional history exists COLONOSCOPY-EVERY [...] this encounter Medical Devices Implanted Type Area Website Designer Device Identifier Shelf Expiration Date Model / Serial / Lot Envista Hydrophobic Acrylic Intraocular Lens Implanted:Qty: 1 on 12/25/2016 by Raul Neely MD at OR [facility] Right: Eye [employer] 11/09/2018 [id number] / [id number] Envista Mx60 +10.0 D Implanted:Qty: 1 on 01/29/2017 by Raul Neely MD at OR [facility] Left: Eye 11/09/2018 [id number] / [id number] documented as of this encounter Visit Diagnoses Diagnosis 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]- Primary Rubeosis iridis Diabetic retinopathy of both eyes without macular edema associated with type 2 diabetes mellitus, unspecified retinopathy severity (HCC) documented in this encounter Administered Medications Active Administered Medications - up to 3 most recent administrations Medication Order MAR Action Action Date Dose Rate Site bevaCIZumab (Avastin) inj 1.25 mg 1.25 mg, Intravitreal, PRN Other, Starting on Juliane 06/13/23 at 1134, Until Sat06/12/24 at 1133, For 365 days Given 06/13/2023 11:43 AM EDT 1.25 mg Eye Right ROPivacaine (Naropin) inj 1.5 mg 1.5 mg, Perineural, PRN Other, Starting on Juliane 06/13/23 at 1134, Until Sat06/12/24 at 1133, For 365 days Given 06/13/2023 11:44 AM EDT 1.5 mg Eye Right documented in this encounter Advance Directives Latest [...] and were consensually agreed upon. Care Teams Rotor Assembler Relationship Specialty Start Date End Date Nancy Ryan DO [address] [place] [address] [place] [address] PCP - General Internal Medicine 09/11/18 documented as of this encounter
--- OUTSIDE RECORDS SUMMARY | 2023-11-13 21:41 | External Medical Summary | Summary of Care ---
Author Name Unknown Organization [facility] Address [address] [place] [address] Phone [phone] Care Team Providers Care Coil Assembler Name Role Phone RyanNancy martinez Primary Care Provider Encounter Details Date Type Department Care Team (Late st Contact Info) Description 06/04/2023 Orders Only Nephrology, [place] [address] [facility] [place] [address] SimsAlejandrina montero MD [address] [place] [address] Hyperkalemia* Allergies No known active allergiesdocumented as of [...] 07/19/20 14 Active Blood Glucose Monitoring Suppl ([employer] ULTRA SYSTEM) W/DEVICE KITIndications:DM type 2, goal [...] long-term current use of insulin ([facility]),Type 2 diabetes mellitus with hemoglobin A1c goal of less than 7.0% ([facility]) Use once a day with [...] of DVT (deep vein thrombosis),Antic oagulation management encounter,snf current use of anticoagulant therapy [...] long-term current use of insulin ([facility]) Inject 48 Units under the [...] long-term current use of insulin ([facility]) Use TWICE a day to test glucose Diagnosis = E11.9 200 Each 3 03/19/20 23 Active Ozempic (2 MG/DOSE) 8 MG/3ML Subcutaneous Solution Pen-injector (Semaglutide (2 MG/DOSE))Indicati ons:Type 2 diabetes mellitus with diabetic neuropathy, with long-term current use of insulin ([facility]) Inject 2 mg under the [...] long-term current use of insulin ([facility]) Take 1 Tablet by mouth 2 times a day with morning and evening meals. 180 Tablet 3 05/17/20 23 Active Losartan Potassium 50 MG Oral Tablet (Cozaar) Take 0.5 Tablets by mouth in the morning. 0 06/04/20 23 Active Furosemide 40 MG Oral Tablet (Lasix)Indication s:Chronic right-sided heart failure (HCC),Stage 3a chronic kidney disease (HCC),HTN, goal below 130/80 TAKE 1 AND 1/2 TABLETS BY MOUTH DAILY 135 Tablet 2 01/30/20 22 023 Discontinued Losartan Potassium 50 MG Oral Tablet (Cozaar) Take 1 Tablet by mouth in the morning. 90 Tablet 3 03/22/20 23 023 Discontinued(Re fill) Hospital, Clinic, or Other [...] CT scan at [facility] 05/2019 Mild nonproliferative diabet ic retinopathy of [...] mRNA, LNP-s, No Pre serve, 2-Dose Series ([place]) 06/20/2021,10/22/2020,09/26/2020 COVID-19, LNP-s, No Preserve , Jamie-sucrose, Ages 12+ (Pfizer) 03/13/2022 Covid-19, Mrna, Lnp-s, Pf, B ivalent, 30 Mcg, IM, 12 yrs and above ([place]) 09/20/2022 Pneumococcal Conjugate Vacci ne, 20-valent ([id number]) 03/14/2022 Pneumococcal Polysaccharide PPV23 (Pneumovax) 03/19/2006 SEASONAL [...] Visit Nephrology, [place] [address] [place], [place] [address] Alejandrina Sims MD [address] [place] [address] 06/13/2023 11:00 AM EDT Office Visit Ophthalmology, [facility] [address] [place] [address] Mika Diaz, DO [address] [place] [address] 06/18/2023 9:00 AM EST Laboratory Laboratory [address] [place] [phone] [place] [address] 06/18/2023 11:15 AM EST Immunization/Injection Hematology/Oncolog y Treatment, [place] 200 [facility] [place] [address] Nurse, Med [address] [place] [address] 06/19/2023 7:00 AM EST 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 Pharmacy, [address] [place] [address] [facility] [address] [place] [address] 06/25/2023 2:45 PM EST Office Visit Hematology/Oncolog y [facility] [place] [address] [place] [address] Fly Velazquez MD [address] [place] [address] 07/01/2023 11:00 AM EST Laboratory Laboratory [facility] [place] [address] [place] [phone] [place] [address] [place] [address] 07/01/2023 11:30 AM EST Immunization/Injection Hematology/Oncolog y Treatment, [place] [address] [facility] [place] [address] Nurse, Med 4 [address] [place] [address] 09/20/2023 8:50 AM EST Office Visit Family Medicine [address] [place] [phone] Nancy Ryan[address] [place] [address] 10/01/2023 9:00 AM EST Office Visit Cardiology [address] [place] [address] Prabhakar Henning PADarron [address] [place] [address] 10/23/2023 10:00 AM EDT Office Visit Sleep Disorders Ctr [facility] [address] [place] [phone] Dorothy Toscano CRNP [address] [place] [address] Scheduled Orders Name Type Priority Associated Diagnoses Orde r Schedule BASIC METABOLIC PANEL Lab Routine Hyperkalemia Expected: 06/11/2023 (Approximate), Expires: 06/04/2024 Scheduled Procedures Name Priority Associated Diagnoses Date/Ti [...] Additional history exists CKD PHOS USE SMARTSET 96888 09/18/2023 02/0 02/2023, 08/29/2021, 08/02/2020, Additional history exists HbA1c 09/19/2023 03/19/2023, 0 02/2023, 05/28/2022, Additional history exists GFR 12/03/2023 06/03/2023, 02/09, 02/13/2023, Additional history exists Albumin/Creatinine Ratio 02/20/2024 023, 03/14/2022, 05/19/2021, Additional history exists CKD HGB USE SMARTSET 42440 06/04/202406/04, 06/04/2023, 05/20/2023, Additional history exists COLONOSCOPY-EVERY [...] this encounter Medical Devices Implanted Type Area Enterprise Security Architect Device Identifier Shelf Expiration Date Model / Serial / Lot Envista Hydrophobic Acrylic Intraocular Lens Implanted:Qty: 1 on 12/25/2016 by Raul Neely MD at OR [facility] Right: Eye [employer]OM[employer] 11/09/2018 [id number] Envista Mx60 +10.0 D Implanted:Qty: 1 on 01/29/2017 by Raul Neely MD at OR [facility] Left: Eye 11/09/2018 [id number] / [id number] documented as of this encounter Visit Diagnoses Diagnosis Hyperkalemia- Primary Hyperpotassemia documented in this encounter Advance Directives [...] and were consensually agreed upon. Care Teams Coil Assembler Relationship Specialty Start Date End Date Nancy Ryan DO [address] [place] [address] [place] [address] PCP - General Internal Medicine 09/11/18 documented as of this encounter
--- OUTSIDE RECORDS SUMMARY | 2023-11-13 21:41 | External Medical Summary | Summary of Care ---
Author Name Unknown Organization [facility] Address [address] [place] [address] Phone [phone] Care Team Providers Care Grid Molder Name Role Phone IbrahimMarlon martinez Primary Care Provider Reason for Referral * Evaluate & Treat - Unlimited Visits (Within 10 days (routine)) - Pending Review Specialty Diagnoses / Procedures Referred By Juan Pablo ornelas Referred To Contact Mold Design Engineer Diagnoses Stage 3a chronic kidney disease (HCC) HTN, goal below 130/80 Alejandrina Sims MD [address] [place] [address] Referral ID Status Reason Start Date Expiration Date Visits Requested Visits Authorized [id number] Pending Review Specialty Services Required 3 1 1 Question Answer Referral Priority Within 10 days (routine) Where should this appointment be scheduled? [facility] Program Type Chronic Disease Management Chronic Disease Management Hypertension Reason for Visit * Reason Comments Chronic Kidney Disease (CKD) Encounter Details Date Type Department Care Team ([facility] Contact Info) Description 06/06/2023 3:00 PM EDT Office Visit Nephrology, [place] [address] [place] [address] Alejandrina Sims MD [address] [place] [address] Hyperkalemia*; Stage 3a chronic kidney disease (HCC); HTN, goal below 130/80; Hyperuricemia Allergies No known active allergiesdocumented as of this encounter (statuses as of 06/12/2023) Medications Medication Sig Dispensed Refills Start Date End Date Status MULTIPLE VITAMIN PO TABS 1 TABLET DAILY 0 07/03/2011 Active OMEGA-3 FISH OIL 1000 MG PO CAPS Take one capsule by mouth daily 0 07/03/2011 Active VITAMIN B-12 1000 MCG PO TABSIndications:Vi tamin B12 deficiency 1 TABLET DAILY 90 Tab 1 07/19/2014 Active Blood Glucose Monitoring Suppl ([employer] SYSTEM) W/DEVICE KITIndications:DM type 2, goal A1c [...] as of this encounter (statuses as of 06/12/2023) Active Problems Problem Noted Date Diagnosed Date [...] Taxonomy. 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 of inactive term intermediate current use of anticoagulant therapy 0 03/16/2005 Overview: 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 of inactive term SPENCER (obstructive sleep apnea) 06/11/2001 Overview: CPAP 11 cwp? AHP Gout of wrist documented as of this encounter (statuses as of 06/12/2023) Resolved Problems Problem Noted Date Diagnosed Date [...] as of this encounter (statuses as of 06/12/2023) Immunizations Name Administration Dates Next Due COVID-19 mRNA, LNP-s, No Pre serve, 2-Dose Series ([employer]) 06/20/2021,10/22/2020,09/26/2020 COVID-19, LNP-s, No Preserve , Jamie-sucrose, Ages 12+ (Pfizer) 03/13/2022 Covid-19, Mrna, Lnp-s, Pf, B ivalent, 30 Mcg, IM, 12 yrs and above (Pfizer) 09/20/2022 Pneumococcal Conjugate Vacci ne, 20-valent ([id number]) 03/14/2022 Pneumococcal Polysaccharide PPV23 (Pneumovax) 03/19/2006 SEASONAL [...] Sign Reading Time Taken Comments Blood Pressure 141/74 06/06/2023 4:00 PM EDT Pulse 68 06/06/2023 4:00 PM EDT Temperature 36.9 C (98.4 F) 06/06/2023 3:10 PM ED T Respiratory Rate 18 06/06/2023 3:10 PM EDT Oxygen Saturation 99% 06/06/2023 3:10 PM EDT Inhaled Oxygen Concentration - - Weight 147 kg (324 lb) 06/06/2023 3:10 PM EDT Height - - Body Mass Index 45.19 05/15/2023 10:39 AM EDT documented in this encounter Patient Instructions * Patient Instructions* Alejandrina Sims MD - 06/06/2023 3:47 PM EDT -eat a lower potassium diet >> cut back on bananas and OJ -do go ahead and start meds from phone message 06/03 -repeat labs after a bout a week on new meds -will refer you for remote BP monitoring program; if that doesn't work out, let us know and bring in your home BP cuff for kidney nurse to check -avoid medicines like aleve, advil, ibuprofen, aspirin more than 81 mg daily and other NSAIDS whichare not good for kidney patients. Take only tylenol (acetaminophen) up to 2000 mg daily as needed for pain or as directed by your primary care provider. documented in this encounter Progress Notes * Alejandrina Sims MD - 06/06/2023 3:35 PM EDT Images from the original note were not included. NEPHROLOGY CLINIC NOTE Nephrology, [address] [place] [place] [address] 06/06/2023, 3:35 PM Patient Name: Ronnie Wu BACKGROUND: 68 year old male presents for f/u of now nonalbuminuric ckd 3 attributed to diabetic nephropathy, chronic uncontrolled hypertension, obesity, periodic NSAID use. PMH DM since at least 2008 w/ early retinopathy, class 3 obesity, SPENCER on CPAP in past but off it asof summer 2022 admission, chronic lymphedema w/ past DVT and ongoing venous stasis ulcerations, gout follows w/ rheum, RLS. Has Fe def anemia > February 2022 w/ one adenomatous polyp, repeat in 2026. Pt refuses po Fe d/t constipation. Also w/ prn meloxicam on med list when he est care w/ me 10/2018. Follows w/ MTM for DM. hx cough w/ACEi; ok on ARB. Legs wrapped b/c of sores, goes to wound clinic [facility]. When does not have have wraps, uses support hose; also has leg pumps and boots PT for vertigo in past Admitted [facility] May 2019 for hyperkalemia and acute kidney injury with presenting creatinine 2.1 and potassium 6. His RIKI-inhibitor was held at discharge; multiple other meds stopped including spironolactone. Admitted [facility] 01/29-02/09/23 after falling down stairs > had SDH, C spine and T spine frxs, rib and scapular fracture. Also had low sodium and high potassium. Then [facility] 1 [facility]. States INR was low while at [facility] (had been on lovenox whiel there) ; [...] history of CKD or ESRD: NO TODAY 06/06/2023: on labs for this visit had following recommendations > Kidney labs stable but with elevated potassium and ongoing metabolic acidosis -sodium bicarbonate 1300 mg daily -change Lasix to torsemide 30 mg daily -lower losartan to 25 mg daily -repeat basic metabolic panel in 1 week Picked up meds but not started them yet b/c questions. Eating 2-3 bananas daily; also has big serving of OJ daily and per can go through bottle in 1-2 days. Recovered from fall / long summer admission >> and leg sores still there but filling in some; REVIEW OF SYSTEMS General: No weakness, No fatigue, lost 14 lb. Respiratory: No cough,No wheezing, No shortness of breath Cardiovascular:No chest pain, No palpitations, and No syncope Gastrointestinal: No nausea, vomiting, diarrhea No hematemesis, No blood in stools No abdominal pain Urinary: No dysuira, No hematuria. No flank pain Musculoskeletal: No muscle pains or cramps; feels controlled edema, No joint pain > pain managedw/ tylenol Skin: No itching No orthostatic or presyncopal sx; no further falls Current Outpatient Medications Medication Sig Dispense Refill MULTIPLE VITAMIN PO TABS 1 TABLET DAILY 0 OMEGA-3 FISH OIL 1000 MG PO CAPS Take one capsule by mouth daily 0 VITAMIN B-12 1000 MCG PO TABS 1 TABLET DAILY 90 Tab 1 dorzolamide-timolol (COSOPT OCUMETER PLUS) 2.23-0.68% ophthalmic solution [...] MOUTH TWICE A DAY WITH BREAKFAST AND [id number] Tablet 3 Insulin Glargine Solostar 100 UNIT/ML Subcutaneous Solution Pen-injector (Basaglar KwikPen) Inject 48 Units under the skin in the morning. 45 mL 3 Ozempic (2 MG/DOSE) 8 MG/3ML Subcutaneous [...] 0.5 Tablets by mouth in the morning. Torsemide 20 MG Oral Tablet (Demadex) Take 1 Tablet by mouth in the morning. 30 Tablet 5 Blood Glucose Monitoring Suppl ([employer] ULTRA SYSTEM) W/DEVICE KIT Use as directed 4 times a day. Use up to four times a day as directed. Diagnosis = E11.9 1 Kit 0 BD Pen Needle Wilda U/F 32G X 4 MM (Insulin Pen Needle) Use once a day with basaglar. DX e11.9 100 Each 3 Acetic Acid 0.25 % Irrigation Solution Apply to legs as directed by the wound clinic. 1000 mL 2 OneTouch Verio In Vitro Strip (Glucose Blood) Use to test blood sugars twice a day. Dx. E11.9 300 Strip 1 OneTouch Delica Lancets 30G Use TWICE a day to test glucose Diagnosis = E11.9 200 Each 3 Current Facility-Administered Medications Medication Dose Route Frequency Provider Last Rate Last Admin bevaCIZumab (Avastin) inj 1.25 mg 1.25 mg Intravitreal PRN Mika Diaz, DO 1.25 mg at 09/17/22 1105 ROPivacaine (Naropin) inj 1.5 mg 0.3 mL Injection PRN Mika Diaz, DO 1.5 mg at 09/17/22 1105 Review of patient's allergies indicates: No Known Allergies PHYSICAL EXAMINATION: BP Readings from Last 6 Encounters: 06/06/23 141/74 06/04/23 143/82 05/21/23 145/75 05/15/23 120/60 05/07/23 144/55 04/23/23 135/60 Wt Readings from Last 6 Encounters: 06/06/23 (!) 147 kg (324 lb) 05/15/23 (!) 147 kg (324 lb) 03/26/23 (!) 148.9 kg (328 lb 4.8 oz) 03/22/23 (!) 148.2 kg (326 lb 11.2 oz) 03/19/23 (!) 147.7 kg (325 lb 9.6 oz) 02/22/23 (!) 148.4 kg (327 lb 3.2 oz) Pulse Readings from Last 6 Encounters: 06/06/23 68 06/04/23 72 05/21/23 75 05/15/23 81 05/07/23 68 03/26/23 88 NAD, oriented x 3, obese, ambulatory w/o asst Normocephalic, atraumatic, eomi nonicteric sclerae MMM Supple neck RRR w/o m/g/r; HS distant; distal BLE edema/legs wrapped CTAB w/ reasonable air mvt NT abd, +BS, soft No cyanosis or clubbing No rash; distal BLE wrapped No tremor, focal or global weakness; fluent speech, good historian LABS: Recent Labs Units 06/03/23 0849 02/19/23 1035 02/13/23 0540 02/10/23 0525 SODIUM - [facility] mmol/L 139 136 137 139 POTASSIUM - [facility] mmol/L 5.8* 5.1 5.0 5.1 CHLORIDE - [facility] mmol/L 109* 104 105 105 CO2 - [facility] mmol/L 19* 20* 18* 21* BUN - [facility] mg/dL 43* 58* 72* 58* CREATININE - [facility] mg/dL 1.7* 1.6* 1.9* 1.6* ESTIMATED GLOMERULAR FILTRATION RATE - [facility] mL/min 45* 47* 37* 49* Recent Labs Units 06/04/23 1103 06/03/23 0849 05/20/23 0838 05/06/23 0832 04/22/23 0840 04/08/23 0835 03/19/23 1009 02/10/23 0525 09/18/22 1038 03/14/22 1048 HGB - [facility] g/dL 9.1* -- 9.1* 9.6* 9.4* < > 9.3* < > 9.7* 9.9* FERRITIN - [facility] ng/mL -- 190 -- -- -- -- 269 -- 125 164 TRANSFERRIN SATURATION PERCENT - [facility] % -- 12* -- -- -- -- 17 -- 18 9* < > = values in this interval not displayed. Recent Labs Units 06/03/23 0849 02/19/23 1035 02/13/23 0540 02/10/23 0525 09/18/22 1038 03/14/22 1048 01/22/22 1132 12/25/21 1044 08/29/21 1132 CALCIUM - [facility] mg/dL 8.9 9.1 8.9 9.2 9.2 < > 9.0 < > 9.0 PHOSPHORUS - [facility] mg/dL -- -- -- -- 3.7 -- -- -- 3.9 25-HYDROXY VITAMIN D - [facility] ng/mL -- -- -- -- -- -- 35 -- -- PTH - [facility] pg/mL -- -- -- -- -- -- 89* -- -- < > = values in this interval not displayed. Recent Labs Units 03/19/23 1009 09/18/22 1038 05/28/22 1503 12/25/21 1044 HEMOGLOBIN A1C - [facility] % 6.5* 6.7* 7.0* 7.2* Recent Labs Units 02/19/23 1035 03/14/22 1048 ALBUMIN / CREATININE RATIO, URINE - [facility] mg/g Creat Reference Range & Units 12/02/18 09:37 06/03/19 10:29 09/16/19 10:07 09/05/20 10:48 05/19/21 13:37 03/14/22 10:48 02/19/23 10:35 Albumin / Creatinine Ratio, Urine <30 mg/g Creat 45 (H) 81 (H) 19 13 ALBUMIN / CREATININE RATIO, URINE Rpt ! Rpt ! Rpt Rpt PROTEIN/CREAT RATIO <150 mg/g 300 (H) 57 164 (H) Recent Labs Units 02/19/23 1035 CLARITY, URINE [...] - [facility] /HPF 0-2 ASSESSMENT AND PLAN: Hyperkalemia (Primary) Stage 3a chronic kidney disease (HCC) - REMOTE PATIENT MONITORING REFERRAL HTN, goal below 130/80 - REMOTE PATIENT MONITORING REFERRAL Hyperuricemia Follow Up: Return in about 6 months (around 12/06/2023) for clinic visit w/ PA. | For: clinic visit w/ PA | Check-out note: PA in MV Hyperkalemia w/ high K diet choices and likely element RTA 4 -diet chagnes as below -start sodium bicarb, torse per phone mssg; lower losartan -f/u lab HTN uncontrolled today -remote monitoring (though program may not have cuff that fits him) -continue coreg, lower losartan dose,k trial of torsemide Patient Instructions -eat a lower potassium diet >> cut back on bananas and OJ -do go ahead and start meds from phone message 06/03 -repeat labs after a bout a week on new meds -will refer you for remote BP monitoring program; if that doesn't work out, let us know and bring in your home BP cuff for kidney nurse to check -avoid medicines like aleve, advil, ibuprofen, aspirin more than 81 mg daily and other NSAIDS whichare not good for kidney patients. Take only tylenol (acetaminophen) up to 2000 mg daily as needed for pain or as directed by your primary care provider. Alejandrina Sims MD Nephrology, [address] [place] [address] CC: Ref: SELF[[id number]] NO STREET ADDRESS AVAILABLE None (office) None (fax) PCP: MARLON IBRAHIM [address] [place] [address] [place] [address] [phone] This chart was completed in part utilizing [employer]cebo Speech Voice Recognition Software. Randomword insertions, pronoun errors, and incomplete sentences are an occasional consequence of this system due to software limitations, and ambient noise. Any questions or concerns about the content, text, or information contained within the body of this dictation should be directly addressed to the provider for clarification. documented in this encounter Nursing Notes * Carmela Layne RN - 06/06/2023 3:12 PM EDT Follow up visit today. Has not started Torsemide or Sodium Bicarb yet. Had questions regarding these meds. Has continued Furosemide until questions answered about new medications . Doing much better since fall. Walking now without device. present for visit. documented in this encounter Plan of Treatment Upcoming Encounters Date Type Department Care Team (Late st Contact Info) Description 06/13/2023 11:00 AM EDT Office Visit Ophthalmology, [facility] [address] [place] [address] Mika Diaz DO [address] [place] [address] 06/18/2023 9:00 AM EST Laboratory Laboratory [address] [place] [phone] [place] [address] 06/18/2023 11:15 AM EST Immunization/Injection Hematology/Oncolog y Treatment, [place] 200 [facility] [place] [address] Nurse, Med 4 200 [facility] [place] [address] 06/19/2023 7:00 AM EST 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 Pharmacy, [address] [place] [address] [place] [address] 06/25/2023 2:45 PM EST Office Visit Hematology/Oncolog y [facility] [address] [facility] [place] [address] Fly Velazquez MD [address] [facility] [place] [address] 07/01/2023 11:00 AM EST Laboratory Laboratory [facility] [place] [address] [facility] [place] [phone] [place], Lab [address] [place] [address] 07/01/2023 11:30 AM EST Immunization/Injection Hematology/Oncolog y Treatment, [place] 200 [facility] [place] [address] Nurse, Med 4 [address] [place] [address] 09/20/2023 8:50 AM EST Office Visit Family Medicine [address] [place] [phone] [address] [place] [address] 10/01/2023 9:00 AM EST Office Visit Cardiology [address] [place] [address] Prabhakar Henning PA-C [address] [place] [address] 10/23/2023 10:00 AM EDT Office Visit Sleep Disorders Ctr Manny Browne [place] [address] [place] [phone] Dorothy Toscano CRNP [address] [place] [address] 12/25/2023 2:00 PM EDT Office Visit Nephrology, [facility] [address] [facility] [place] [address] Zemaitis, Beckie Tucker PA-C [address] [place] [address] Scheduled Procedures Name Priority Associated Diagnoses Date/Ti me COLONOSCOPY FLEXIBLE PROXIMAL DIAGNOSTIC Recall History of colon polyps Scheduled Referrals Name Type Priority Associated Diagnoses Orde r Schedule REMOTE PATIENT MONITORING REFERRAL Referral Within 10 days (routine) Stage 3a chronic kidney disease (HCC) HTN, goal below 130/80 Ordered: 06/06/2023 Health Maintenance Due Date Last Done Comments Hepatitis B (1 of 3 - Risk 3-dose series) 2017 Depression Screening 01/28/2021 01/29/2020 DXA Scan 12/14/2022 12/14/2021 Diabetic Foot Exam 03/14/2023 03/14/2022, 0 11/30/2015, 11/09/2014, Additional history exists COVID-19 Vaccine ( season) 2023 09/20/2022, 03/13/2022, 06/20/2021, Additional history exists CKD PHOS USE SMARTSET 05894 09/18/20230 02/2023, 08/29/2021, 08/02/2020, Additional history exists HbA1c 09/19/2023 03/19/2023, 02/2023, 05/28/2022, Additional history exists Diabetic Eye Exam 10/09/2023 10/09/2022, , 06/12/2022, Additional history exists GFR 12/03/2023 06/03/2023, 0708/2022, 02/13/2023, Additional history exists Albumin/Creatinine Ratio 02/20/2024 023, 03/14/2022, 05/19/2021, Additional history exists CKD HGB USE SMARTSET 44892 06/04/202406/04, 06/04/2023, 05/20/2023, Additional history exists COLONOSCOPY-EVERY [...] this encounter Medical Devices Implanted Type Area Trolley Car Overhauler Device Identifier Shelf Expiration Date Model / Serial / Lot Envista Hydrophobic Acrylic Intraocular Lens Implanted:Qty: 1 on 12/25/2016 by Raul Neely MD at OR [facility] Right: Eye [employer]OM[employer] 11/09/2018 [id number] / [id number] / [id number] Envista Mx60 +10.0 D Implanted:Qty: 1 on 01/29/2017 by Raul Neely MD at OR [facility] Left: Eye 11/09/2018 [id number] / [id number] documented as of this encounter Visit Diagnoses Diagnosis Hyperkalemia- Primary Hyperpotassemia Stage 3a chronic kidney disease (HCC) HTN, goal below 130/80 Unspecified essential hypertension Hyperuricemia Other abnormal blood chemistry documented in this encounter Advance Directives Latest [...] and were consensually agreed upon. Care Teams Grid Molder Relationship Specialty Start Date End Date Marlon Ibrahim DO [address] [place] [address] [place] [address] PCP - General Internal Medicine 09/11/18 documented as of this encounter"
--- OUTSIDE RECORDS SUMMARY | 2023-11-13 21:41 | External Medical Summary | Summary of Care ---
Author Name Unknown Organization [facility] Address [address] [place] [address] Phone [phone] Care Team Providers Care Director Environmental Name Role Phone Ryan Nancy Muro Primary Care Provider Reason for Visit * Reason Onset Date Comments Referral Requested by Specialist 06/06/2023 Encounter Details Date Type Department Care Team (Late st Contact Info) Description 06/06/2023 Telephone Nephrology, [place] [address] [place] [address] Alejandrina Sims MD [address] [place] [address] Referral Requested by Specialist Allergies No known active allergiesdocumented as of this encounter (statuses as of 06/06/2023) Medications Medication Sig Dispensed Refills Start Date End Date Status MULTIPLE VITAMIN PO TABS 1 TABLET DAILY 0 07/03/2011 Active OMEGA-3 FISH OIL 1000 MG PO CAPS Take one capsule by mouth daily 0 07/03/2011 Active VITAMIN B-12 1000 MCG PO TABSIndications:Vi tamin B12 deficiency 1 TABLET DAILY 90 Tab 1 07/19/2014 Active Blood Glucose Monitoring Suppl ([employer] ULTRA SYSTEM) W/DEVICE KITIndications:DM type 2, goal [...] long-term current use of insulin ([facility]),Type 2 diabetes mellitus with hemoglobin A1c goal of less than 7.0% ([facility]) Use once a day with basaglar. DX [...] long-term current use of insulin ([facility]) Inject 48 Units under the skin in [...] long-term current use of insulin ([facility]) Use TWICE a day to test glucose Diagnosis = E11.9 200 Each 3 03/19/2023 Active Ozempic (2 MG/DOSE) 8 MG/3ML Subcutaneous Solution Pen-injector (Semaglutide (2 MG/DOSE))Indicatio ns:Type 2 diabetes mellitus with diabetic neuropathy, with long-term current use of insulin ([facility]) Inject 2 mg under the skin once [...] long-term current use of insulin ([facility]) Take 1 Tablet by mouth 2 times [...] as of this encounter (statuses as of 06/06/2023) Active Problems Problem Noted Date Diagnosed Date [...] Non-obstructive. Noted on CT scan at [facility] 05/2019 Mild nonproliferative diabet ic retinopathy [...] as of this encounter (statuses as of 06/06/2023) Resolved Problems Problem Noted Date Diagnosed Date [...] as of this encounter (statuses as of 06/06/2023) Immunizations Name Administration Dates Next Due COVID-19 mRNA, LNP-s, No Pre serve, 2-Dose Series ([employer]) 06/20/2021,10/22/2020,09/26/2020 COVID-19, LNP-s, No Preserve , Jamie-sucrose, Ages 12+ (Pfizer) 03/13/2022 Covid-19, Mrna, Lnp-s, Pf, B ivalent, 30 Mcg, IM, 12 yrs and above ([employer]) 09/20/2022 Pneumococcal Conjugate Vacci ne, 20-valent ([id number]) 03/14/2022 Pneumococcal Polysaccharide PPV23 (Pneumovax) 03/19/2006 SEASONAL [...] encounter Miscellaneous Notes * Telephone Encounter - Carmela Layne RN - 06/06/2023 4:09 PM EDT Remote monitoring ordered at visit today. documented in this encounter Plan of Treatment Upcoming Encounters Date Type Department Care Team (Late st Contact Info) Description 06/13/2023 11:00 AM EDT Office Visit Ophthalmology, [facility] [address] [place] [address] Mika Diaz, DO [address] [place] [address] 06/18/2023 9:00 AM EST Laboratory Laboratory [address] [place] [phone] [address] [place] [address] 06/18/2023 11:15 AM EST Immunization/Injection Hematology/Oncolog y Treatment, [place] [address] [facility] [place] [address] Nurse, Med 4 200 [facility] [place] [address] 06/19/2023 7:00 AM EST 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 Pharmacy, [address] [place] [address] [facility] [address] [place] [address] 06/25/2023 2:45 PM EST Office Visit Hematology/Oncolog y [facility] J[place] [address] [place] [address] Fly Velazquez MD [address] [place] [address] 07/01/2023 11:00 AM EST Laboratory Laboratory [facility] [place] [address] [place] [phone] [place] [address] [facility] [place] [address] 07/01/2023 11:30 AM EST Immunization/Injection Hematology/Oncolog y Treatment, [address] [place] [address] Nurse, Med 4 200 [facility] [place] [address] 09/20/2023 8:50 AM EST Office Visit Family Medicine [address] [place] [phone] Shelby Nancyraheem Muro[address] [place] [address] 10/01/2023 9:00 AM EST Office Visit Cardiology [address] [place] [address] Prabhakar Henning PAJoseC [address] [place] [address] 10/23/2023 10:00 AM EDT [facility] [address] [place] [phone] Dorothy Toscano CRNP [address] [place] [address] 12/25/2023 2:00 PM EDT Office Visit Nephrology, [facility] [address] [place] [address] Zemaitis, Beckie Tucker PA-C [address] [place] [address] Scheduled Procedures Name Priority Associated Diagnoses Date/Ti [...] Additional history exists CKD PHOS USE SMARTSET 10028 09/18/2023 02/2023, 08/29/2021, 08/02/2020, Additional history exists HbA1c 09/19/2023 03/19/2023, 02/2023, 05/28/2022, Additional history exists GFR 12/03/2023 06/03/2023, 02/09, 02/13/2023, Additional history exists Albumin/Creatinine Ratio 02/20/2024 023, 03/14/2022, 05/19/2021, Additional history exists CKD HGB USE SMARTSET 52723 06/04/202406/04, 06/04/2023, 05/20/2023, Additional history exists COLONOSCOPY-EVERY [...] this encounter Medical Devices Implanted Type Area Order Entry Clerk Device Identifier Shelf Expiration Date Model / Serial / Lot Envista Hydrophobic Acrylic Intraocular Lens Implanted:Qty: 1 on 12/25/2016 by Raul Neely MD at [facility] Right: Eye [employer] 11/09/2018 [id number] / [id number] Envista Mx60 +10.0 D Implanted:Qty: 1 on 01/29/2017 by Raul Neely MD at [facility] Left: Eye 11/09/2018 [id number] / [id number] / [id number] documented as of this encounter Advance Directives [...] were consensually agreed upon. Care Teams Director Environmental Relationship Specialty Start Date End Date Nancy Ryan DO [address] [place] [address] [place] [phone] PCP - General Internal Medicine 09/11/18 documented as of this encounter
--- OUTSIDE RECORDS SUMMARY | 2023-11-13 21:42 | External Medical Summary ---
Author Name Unknown Address Unknown Organization K01:[facility] [address] [place] [address] Laboratory Report Ordering Provider Test Date Status ALEXANDRIA MASON 06/03/2023 08:49:32 Final Observation Date Value Abnormality Reference (Units ) Status T4, Free 06/03/2023 08:49:32 1.1 0.9-1.7 (n g/dL) Final Performing Location [facility] - [address] [place] [address]
--- OUTSIDE RECORDS SUMMARY | 2023-11-13 21:42 | External Medical Summary | Summary of Care ---
Author Name Unknown Organization [facility] Address [address] [place] [address] Phone [phone] Care Team Providers Care Binder Chainstitch Name Role Phone Nancy Ryan DO Primary Care Provider Reason for Visit * Reason Comments Medication Administration Procrit * Episode Based Medications (Routine) - Authorized Specialty Diagnoses / Procedures Referred By Contac t Referred To Contact Diagnoses Anemia due to stage 3a chronic kidney disease Procedures VA INJ RETACRIT NON-ESRD USE Tameka Pires CRNP [address] [facility] [place] [address] Anc Hem/Onc [place] [address] [place] [phone] Referral ID Status Reason Start Date Expiration Date V isits Requested Visits Authorized [id number] Authorized 04/01/2023 07/22/2023 999 999 Encounter Details Date Type Department Care Team Description 05/21/2023 Immunization/In jection Hematology/Oncology Treatment, [facility] [address] [place] [phone] Nurse, Med 4 [address] [place] [address] Anemia due to stage 3a chronic kidney disease * Allergies No known active allergiesdocumented as of this encounter (statuses as of 05/21/2023) Medications Medication Sig Dispensed Refills Start Date End Date Status MULTIPLE VITAMIN PO TABS 1 TABLET DAILY 0 07/03/2011 Active OMEGA-3 FISH OIL 1000 MG PO CAPS Take one capsule by mouth daily 0 07/03/2011 Active VITAMIN B-12 1000 MCG PO TABSIndications:Vi tamin B12 deficiency 1 TABLET DAILY 90 Tab 1 07/19/2014 Active Blood Glucose Monitoring Suppl ([employer] SYSTEM) W/DEVICE KITIndications:DM type 2, goal A1c [...] DX e11.9 100 Each 3 10/17/2021 Active Furosemide 40 MG Oral Tablet (Lasix)Indications :Chronic right-sided heart failure (HCC),Stage 3a chronic kidney disease (HCC),HTN, goal below 130/80 TAKE 1 AND 1/2 TABLETS BY MOUTH DAILY 135 Tablet 2 01/29/2022 Active Rhopressa 0.02 % Ophthalmic Solution Instill [...] Solostar 100 UNIT/ML Subcutaneous Solution Pen-injector (Basaglar KhalidaikHuan)Indication s:Type 2 diabetes mellitus with diabetic neuropathy, with long-term current use of insulin ([facility]) Inject 48 Units under the skin [...] = E11.9 200 Each 3 03/19/2023 Active Losartan Potassium 50 MG Oral Tablet (Cozaar) Take 1 Tablet by mouth in the morning. 90 Tablet 3 03/22/2023 Active Ozempic (2 MG/DOSE) 8 MG/3ML Subcutaneous [...] evening meals. 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, multiple sites, without tophus (tophi) 11/01/2021 Chronic right-sided heart failure 2021 Other specified peripheral vascular dise ases 08/29/2021 Primary osteoarthritis of right wrist Carpal tunnel syndrome of right wrist Acute gout due to renal impairment invol ving right wrist 03/15/2021 Non-pressure chronic ulcer o f unspecified part of right lower leg with unspecified severity 02/08/2021 Stage 3a chronic kidney disease 08/22/19 21 Overview: Per CKD protocol Morbid obesity with BMI of 45.0-49.9, ad ult 08/22/2020 Overview: Per Obesity protocol - Per Obesity protocol - - 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 with ulcer other part of lower leg (CODE) 08/02/2020 Non-pressure chronic ulcer o f unspecified part of left lower leg with unspecified severity 09/16/2019 Hyperkalemia 06/16/2019 Renal calculi 06/16/2019 Overview: Non-obstructive. 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 associated with type 2 diabetes mellitus 01/08/2019 Iron deficiency anemia due to chronic bl ood loss 12/02/2018 HTN, goal below 130/80 08/13/2018 H/O amputation of lesser toe, unspecifie d laterality 06/03/2018 Venous stasis ulcer of calf 10/04/2017 History of DVT (deep vein thrombosis) DM neuropathy, type II diabetes mellitus 05/08/2016 Venous stasis dermatitis of both lower e xtremities 11/30/2015 Vitamin B12 deficiency 05/28/2013 Dyslipidemia, goal LDL below 100 013 Venous insufficiency 04/23/2013 Type 2 diabetes mellitus wit h diabetic neuropathy, with long-term current use of insulin 06/09/2009 Overview: Per Diabetes Taxonomy. 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 of inactive term [facility] current use of anticoagulant t herapy 03/16/2005 Overview: 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 of inactive term SPENCER (obstructive sleep apnea) 06/11/2001 Overview: CPAP 11 cwp? AHP Gout of wrist documented as of this encounter (statuses as of 05/21/2023) Resolved Problems Problem Noted Date Resolved Date Stage 3 chronic kidney disease 08/29/2021 0 09/27/2021 Chronic kidney disease, stage 3 unspecified 01/1202/23/2021 Body mass index (BMI) of 50.0 to 59.9 in adult 1 09/25/2019 08/25/2020 Overview: Per Obesity protocol - - ZAHRAA (acute kidney injury) 06/16/20192019 Body mass index (BMI) of 45.0 to 49.9 in adult 0 10/20/2018 07/28/2020 Overview: Per Obesity protocol #1 - Heart failure, right-sided 06/03/201811/27 Morbid obesity due to excess calories 06/03/2018 03/14/2022 Kidney disease, chronic, stage III (GFR 30-59 ml /min) 10/04/2017 08/25/2020 Overview: Per CKD protocol BMI 50.0-59.9, adult 06/25/2017 10/21/2018 Overview: Per Obesity protocol #1 Sensory peripheral neuropathy 05/08/2016 Lumbar degenerative disc disease 03/28/2016 10/04/2017 Venous stasis dermatitis 11/09/2014 016 Persistent insomnia 06/29/2014 10/04/2017 Restless legs syndrome 06/29/2014 2 DVT (deep venous thrombosis) 03/18/2012 Adult body mass index 50.0-59.9 09/26/2010 06/28/2017 Overview: Per Obesity protocol #1 Edema 01/17/2010 11/09/2014 Ulcer of lower limb 01/17/2010 03/18/2012 Obesity, morbid (more than 1 00 lbs over ideal weight or BMI > 40) 11/08/2009 09/26/2010 Overview: Per Obesity Taxonomy 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 of inactive term OBESITY, UNSPECIFIED 06/01/2004 11/08/2009 Overview: Per Obesity Taxonomy 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 management encounter 01/30/2002 10/04/2017 Type 2 diabetes mellitus wit h hemoglobin A1c goal of less than 7.0% 06/11/2001 06/09/2009 Overview: Per Diabetes Taxonomy. 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 of inactive term Anemia 06/11/2001 12/02/2018 THROMBOPHLEBITIS NOS 06/11/2001 03/18/2012 Closed fracture of head of radius 07/03/2011 documented as of this encounter (statuses as of 05/21/2023) Immunizations Name Administration Dates Next Due COVID-19 mRNA, LNP-s, No Pre serve, 2-Dose Series (First Wave) 06/20/2021,10/22/2020,09/26/2020 COVID-19, LNP-s, No Preserve , Jamie-sucrose, Ages 12+ (Pfizer) 03/13/2022 Covid-19, Mrna, Lnp-s, Pf, B ivalent, 30 Mcg, IM, 12 yrs and above (Pfizer) 09/20/2022 Pneumococcal Conjugate Vacci ne, 20-valent ([id number]) 03/14/2022 Pneumococcal Polysaccharide PPV23 (Pneumovax) 03/19/2006 SEASONAL [...] maybe once a month about 4 beers Food Insecurity Answer Date Recorded Within the past 12 months, y ou worried that your food would run out before you got money to buy more. Never true 07/22/2019 Within the past 12 months, t he food you bought just didn't last and you didn't have money to get more. Never true 07/22/2019 Sex Assigned at Date Recorded Not on file Job Start Date Occupation Industry Not on file Not on file Not on file documented as of this encounter Last Filed Vital Signs Vital Sign Reading Time Taken Comments Blood Pressure 145/75 05/21/2023 10:44 AM EDT Pulse 75 05/21/2023 10:44 AM EDT Temperature - - Respiratory Rate - - Oxygen Saturation - - Inhaled Oxygen Concentration - - Weight - - Height - - Body Mass Index - - documented in this encounter Nursing Notes * Pat Trent LPN - 05/21/2023 11:18 AM EDT Room 5. Pt arrived for Procrit injection. Hgb 9.1. Administered in RAMILA. Pt tolerated well. BP WNL. Pt to return in 2 weeks. Discharged in stable condition. documented in this encounter Plan of Treatment Upcoming Encounters Date Type Specialty Care Team Description 06/03/2023 Laboratory Laboratory [address] [place] [address] 06/04/2023 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 Pharmacy [address] [place] [address] 06/04/2023 Immunization/Injection Hematology Oncolog y Nurse, Med 4 [address] [facility] [place] [address] 06/13/2023 Office Visit Ophthalmology Mika [place], DO [address] [place] [address] 06/18/2023 Laboratory Laboratory [address] [place] [address] 06/25/2023 Office Visit Hematology Oncology Fly Velazquez MD [address] [facility] [place] [address] 09/16/2023 Office Visit Nephrology Alejandrina [place] MD [address] [facility] [place] [address] 09/20/2023 Office Visit Family Medicine Nancy Ryan, [address] [place] [address] 10/01/2023 Office Visit Cardiology Prabhakar Henning PA-C [address] [place] [address] 10/23/2023 Office Visit Sleep Disorders Dorothy Toscano CRNP [address] [place] [address] Scheduled Procedures Name Priority Associated Diagnoses Date/Ti me COLONOSCOPY FLEXIBLE PROXIMAL DIAGNOSTIC Recall History of colon polyps Health Maintenance Due Date Last Done Comments Depression Screening 01/28/2021 01/29/2020 DXA Scan 12/14/2022 12/14/2021 Diabetic Foot Exam 03/14/2023 03/14/2022, 0 11/30/2015, 11/09/2014, Additional history exists COVID-19 Vaccine ( season) 2023 09/20/2022, 03/13/2022, 06/20/2021, Additional history exists DIABETES-EYE EXAM 06/12/2023 06/12/2022, , 08/10/2019, Additional history exists GFR 08/22/2023 02/19/2023, 070 12/2022, 02/10/2023, Additional history exists CKD PHOS USE SMARTSET 47881 09/18/2023 020 02/2023, 08/29/2021, 08/02/2020, Additional history exists HbA1c 09/19/2023 03/19/2023, 020 02/2023, 05/28/2022, Additional history exists Albumin/Creatinine Ratio 02/20/20242 023, 03/14/2022, 05/19/2021, Additional history exists CKD HGB USE SMARTSET 79214 05/20/202405/20, 05/20/2023, 05/06/2023, Additional history exists COLONOSCOPY-EVERY 5 YRS AGES [...] this encounter Medical Devices Implanted Type Area Fretted Instruments Inspector Device Identifier Shelf Expiration Date Model / Serial / Lot Envista Hydrophobic Acrylic Intraocular Lens Implanted:Qty: 1 on 12/25/2016 by Raul Neely MD at OR [facility] Right: Eye [employer] 11/09/2018 [id number] / [id number] / [id number] Envista Mx60 +10.0 D Implanted:Qty: 1 on 01/29/2017 by Raul Neely MD at OR [facility] Left: Eye 11/09/2018 [id number] / [id number] / [id number] documented as of this encounter Visit Diagnoses Diagnosis Anemia due to stage 3a chronic kidney disease- Primary documented in this encounter Administered Medications Inactive Administered Medications - up to 3 most recent administrations Medication Order MAR Action Action Date Dose Rate Site Epoetin Gautam 04184 UNIT/ML inj 20,000 Units 20,000 Units, Subcutaneous, ONCE, On Sat05/21/23 at 1115, For 1 dose Given 05/21/2023 11:01 AM EDT 20,000 Units Arm Left Upper documented in [...] were consensually agreed upon. Care Teams Binder Chainstitch Relationship Specialty Start Date End Date Nancy Ryan[address] [place] [phone] PCP - General Internal Medicine 09/11/18 documented as of this encounter
--- OUTSIDE RECORDS SUMMARY | 2023-11-13 21:42 | External Medical Summary ---
Author Name Unknown Address Unknown Organization K09:[facility] [address] [place] [address] Laboratory Report Ordering Provider Test Date Status JANE WOODRUFF 06/04/2023 11:03:34 Final Observation Date Value Abnormality Reference (Units ) Status SYNC LEUKOCYTES IN BLOOD BY AUTOMATED COUNT 06/04/2023 11:03:34 7.01 4.00-10.80 (K/uL) Final Segs 06/04/2023 11:03:34 66.1 40.0-75.0 (%) Final Lymphs % 06/04/2023 11:03:34 19.8 18.0-42.0 (%) Final Monos 06/04/2023 11:03:34 8.6 1.0-11.0 (%) Final Eosinophils 06/04/2023 11:03:34 4.9 0.0-6.0 (%) Final Basos 06/04/2023 11:03:34 0.6 0.0-2.0 (%) Final Absolute Segs 06/04/2023 11:03:34 4.64 1.80-7.70 (K/uL) Final Lymphs, absolute 06/04/2023 11:03:34 1.39 1.00-4.80 (K/ul) Final Monos, Abs 06/04/2023 11:03:34 0.60 0.00-1.10 (K/uL) Final Eos, Abs 06/04/2023 11:03:34 0.34 0.00-0.70 (K/uL) Final Basos, Abs 06/04/2023 11:03:34 0.04 0.00-0.20 (K/uL) Final Performing Location [facility] [address] [place] [address]
--- OUTSIDE RECORDS SUMMARY | 2023-11-13 21:42 | External Medical Summary ---
Author Name Unknown Address Unknown Organization K01:[facility] - [address] [place] [address] Laboratory Report Ordering Provider Test Date Status JANE WOODRUFF 06/03/2023 08:49:32 Final Observation Date Value Abnormality Reference (Units ) Status Iron 06/03/2023 08:49:32 40 Below low normal 45-176 (ug/dL) Final Iron-binding capacity 06/03/2023 08:49:32 339 250-425 (ug/dL) Final Transferrin Sat % 06/03/2023 08:49:32 12 Below low normal 15-55 (%) Final Performing Location [facility] - [address] [place] [address]
--- OUTSIDE RECORDS SUMMARY | 2023-11-13 21:42 | External Medical Summary | Summary of Care ---
Author Name Unknown Organization [facility] Address [address] [place] [address] Phone [phone] Care Team Providers Care E Merchant Name Role Phone RyanNancy martinez Primary Care Provider Encounter Details Date Type Department Care Team (Late st Contact Info) Description 06/04/2023 Orders Only Nephrology, [place] [address] [place] [address] SimsAlejandrina montero MD [address] [place] [address] Hyperkalemia* Allergies No known active allergiesdocumented as [...] 07/19/20 14 Active Blood Glucose Monitoring Suppl ([employer] ULTRA SYSTEM) W/DEVICE KITIndications:DM type 2, goal [...] of DVT (deep vein thrombosis),Antic oagulation management encounter,detention current use of anticoagulant therapy Take 5 [...] Overview: Non-obstructive. Noted on CT scan at [facility] 05/2019 Mild nonproliferative diabet ic retinopathy [...] mRNA, LNP-s, No Pre serve, 2-Dose Series (TappTime) 06/20/2021,10/22/2020,09/26/2020 COVID-19, LNP-s, No Preserve , Jamie-sucrose, Ages 12+ (Pfizer) 03/13/2022 Covid-19, Mrna, Lnp-s, Pf, B ivalent, 30 Mcg, IM, 12 yrs and above (TappTime) 09/20/2022 Pneumococcal Conjugate Vacci ne, 20-valent ([id number]) 03/14/2022 Pneumococcal Polysaccharide PPV23 (Pneumovax) 03/19/2006 SEASONAL [...] Visit Nephrology, [place] [address] [place], [place] [address] Alejandrina Sims MD [address] [place] [address] 06/13/2023 11:00 AM EDT Office Visit Ophthalmology, [facility] [address] [place] [address] Mika Diaz, DO [address] [place] [address] 06/18/2023 9:00 AM EST Laboratory Laboratory [address] [place] [phone] [place] [address] 06/18/2023 11:15 AM EST Immunization/Injection Hematology/Oncolog y Treatment, [place] [address] [facility] [place] [address] Nurse, Med [address] [place] [address] 06/19/2023 7:00 AM EST 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 Pharmacy, [address] [place] [address] [facility] [address] [place] [address] 06/25/2023 2:45 PM EST Office Visit Hematology/Oncolog y [facility] [place] [address] [place] [address] Fly Velazquez MD [address] [place] [address] 07/01/2023 11:00 AM EST Laboratory Laboratory [facility] [place] [address] [place] [phone] [place], [facility] [address] [place] [address] 07/01/2023 11:30 AM EST Immunization/Injection Hematology/Oncolog y Treatment, [place] [address] [facility] [place] [address] Nurse, Med 4 [address] [place] [address] 09/20/2023 8:50 AM EST Office Visit Family Medicine [address] [place] [phone] Nancy Ryan[address] [place] [address] 10/01/2023 9:00 AM EST Office Visit Cardiology [address] [place] [address] Prabhakar Henning PADarron [address] [place] [address] 10/23/2023 10:00 AM EDT Office Visit Sleep Disorders [facility] [address] [place] [phone] Dorothy Toscano CRNP [address] [place] [address] Scheduled Orders Name Type Priority Associated Diagnoses [...] Additional history exists CKD PHOS USE SMARTSET 33539 09/18/2023 02/0 02/2023, 08/29/2021, 08/02/2020, Additional history exists HbA1c 09/19/2023 03/19/2023, 0 02/2023, 05/28/2022, Additional history exists GFR 12/03/2023 06/03/2023, 02/09, 02/13/2023, Additional history exists Albumin/Creatinine Ratio 02/20/2024 023, 03/14/2022, 05/19/2021, Additional history exists CKD HGB USE SMARTSET 06125 06/04/202406/04, 06/04/2023, 05/20/2023, Additional history exists COLONOSCOPY-EVERY [...] this encounter Medical Devices Implanted Type Area Medical Billing Representative Device Identifier Shelf Expiration Date Model / Serial / Lot Envista Hydrophobic Acrylic Intraocular Lens Implanted:Qty: 1 on 12/25/2016 by Raul Neely MD at OR [facility] Right: Eye [employer] 11/09/2018 [id number] / [id number] / [id number] Envista Mx60 +10.0 D Implanted:Qty: 1 on 01/29/2017 by Raul Neely MD at OR [facility] Left: Eye 11/09/2018 [id number] / [id number] / [id number] documented as of this encounter Visit Diagnoses [...] and were consensually agreed upon. Care Teams E Merchant Relationship Specialty Start Date End Date Nancy Ryan DO [address] [place] [address] [place] [address] PCP - General Internal Medicine 09/11/18 documented as of this encounter
--- OUTSIDE RECORDS SUMMARY | 2023-11-13 21:42 | External Medical Summary | Summary of Care ---
Author Name Unknown Organization [facility] Address [address] [place] [address] Phone [phone] Care Team Providers Care Er Medical Technician Name Role Phone Ryan Nancy Muro Primary Care Provider Reason for Visit * Reason Comments Outpatient Testing Encounter Details Date Type Department Care Team Description 04/08/2023 Laboratory Laboratory [address] [place] [phone] [place] [address] Cold feeling; Anemia due to stage 3a chronic kidney disease (HCC); History of DVT (deep vein thrombosis); 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 management encounter; retirement current use of anticoagulant therapy Allergies No known active allergiesdocumented as of this encounter (statuses as of 05/20/2023) Medications Medication Sig Dispensed Refills Start Date End Date Status MULTIPLE VITAMIN PO TABS 1 TABLET DAILY 0 1 Active OMEGA-3 FISH OIL 1000 MG PO CAPS Take one capsule by mouth daily 0 1 Active VITAMIN B-12 1000 MCG PO TABSIndications:Vi tamin B12 deficiency 1 TABLET DAILY 90 Tab 1 4 Active Blood Glucose Monitoring Suppl ([employer] SYSTEM) W/DEVICE KITIndications:DM type 2, goal A1c [...] hemoglobin A1c goal of less than 7.0% ([facility]) Use once a day with basaglar. DX e11.9 100 Each 3 2 Active Furosemide 40 MG Oral Tablet (Lasix)Indications :Chronic right-sided heart failure (HCC),Stage 3a chronic kidney disease (HCC),HTN, goal below 130/80 TAKE 1 AND 1/2 TABLETS BY MOUTH DAILY 135 Tablet 2 2 Active Rhopressa 0.02 % Ophthalmic Solution Instill 1 Drop into the left eye at bedtime. 0 2 Active Vitamin C 1000 MG Oral Tablet Take 1 Tablet by mouth in the morning. 0 Active Warfarin Sodium 5 MG Oral Tablet (Coumadin)Indicati ons:History of DVT (deep vein thrombosis),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 management encounter,retirement current use of anticoagulant therapy Take 5 [...] = E11.9 200 Each 3 3 Active Losartan Potassium 50 MG Oral Tablet (Cozaar) Take 1 Tablet by mouth in the morning. 90 Tablet 3 3 Active Ozempic (2 MG/DOSE) 8 MG/3ML Subcutaneous Solution Pen-injector (Semaglutide (2 MG/DOSE))Indicatio ns:Type 2 diabetes mellitus with diabetic neuropathy, with long-term current use of insulin ([facility]) Inject 2 mg under the skin once a week. DX E11.9 Diabetes Mellitus 3 mL 5 3 Active metFORMIN HCl 500 MG Oral Tablet (Glucophage)Indica tions:Type 2 diabetes mellitus with diabetic neuropathy, with long-term current use of insulin ([facility]) Take by mouth 1 Tablet 2 times a day with morning and evening meals . 180 Tablet 3 2 05/17/20 Discontinu ed(Refill) Allopurinol 100 MG Oral Tablet (Zyloprim)Indicati ons:Acute gout of right wrist, unspecified cause Take by mouth 1 Tablet in the morning. Take 1 tablet by mouth in the morning in addition to 300 mg tablet for a total dose of 400 mg.. 90 Tablet 3 2 05/17/20 Discontinu ed(Refill) Atorvastatin Calcium 20 MG Oral Tablet (Lipitor)Indicatio ns:Dyslipidemia, goal LDL below 70 TAKE 1 TABLET BY MOUTH EVERY DAY IN THE MORNING 90 Tablet 0 3 05/09/20 Discontinu ed(Refill) Hospital, Clinic, or Other Facility [...] as of this encounter (statuses as of 05/20/2023) Active Problems Problem Noted Date Anemia due [...] long term care current use of anticoagulant t herapy 03/16/2005 Overview: 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 of inactive term SPENCER (obstructive sleep apnea) 06/11/2001 Overview: CPAP 11 cwp? AHP Gout of wrist documented as of this encounter (statuses as of 05/20/2023) Resolved Problems Problem Noted Date Resolved Date [...] as of this encounter (statuses as of 05/20/2023) Immunizations Name Administration Dates Next Due COVID-19 mRNA, LNP-s, No Pre serve, 2-Dose Series ([employer]) 06/20/2021,10/22/2020,09/26/2020 COVID-19, LNP-s, No Preserve , Jamie-sucrose, Ages 12+ (Pfizer) 03/13/2022 Covid-19, Mrna, Lnp-s, Pf, B ivalent, 30 Mcg, IM, 12 yrs and above (Personaling) 09/20/2022 Pneumococcal Conjugate Vacci ne, 20-valent ([id number]) 03/14/2022 Pneumococcal Polysaccharide PPV23 (Pneumovax) 03/19/2006 SEASONAL INFLUENZA, PF, 6 M & Above, IM , (FLULAVAL or FLUZONE) 05/19/2021,04/22/2020,06/03/2019,06/03,07/30/2017 Seasonal Influenza, Quadriva lent Hd (Fluzone Hd) 06/25/2022 Seasonal Influenza, Quadriva lent, No Preserve, IM [...] Encounters Date Type Specialty Care Team Description 05/21/2023 Immunization/Injection Hematology Oncolog y Nurse, Med 4 [address] [place] [address] 06/03/2023 Laboratory Laboratory [place], Lab [address] [place] [address] 06/04/2023 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 Pharmacy [address] [place] [address] 06/04/2023 Immunization/Injection Hematology Oncolog y Nurse, Med 4 200 [facility] [place] [address] 06/13/2023 Office Visit Ophthalmology Mika Diaz DO [address] [place] [address] 06/18/2023 Laboratory Laboratory [address] [place] [address] 06/25/2023 Office Visit Hematology Oncology Fly Velazquez MD [address] [facility] [place] [address] 09/16/2023 Office Visit Nephrology SimsAlejandrina montero MD [address] [facility] [place] [address] 09/20/2023 Office Visit Family Medicine Nancy Ryan[address] [place] [address] 10/01/2023 Office Visit Cardiology Prabhakar Henning PA-C [address] [place] [address] 10/23/2023 Office Visit Sleep Disorders Dorothy Toscano CRNP [address] [place] [address] Pending Results Name Type Priority Associated Diagnoses Date /Time T4, FREE Lab Routine Cold feeling 05/20/2023 8:37 AM EDT COMPREHENSIVE METABOLIC PANEL Lab STAT Anemia due to stage 3a chronic kidney disease (HCC) 05/20/2023 8:37 AM EDT FERRITIN Lab STAT Anemia due to stage 3a chronic kidney disease (HCC) 05/20/2023 8:37 AM EDT FOLIC ACID Lab STAT Anemia due to stage 3a chronic kidney disease (HCC) 05/20/2023 8:37 AM EDT VITAMIN B12 Lab STAT Anemia due to stage 3a chronic kidney disease (HCC) 05/20/2023 8:37 AM EDT IRON SCREEN, INCLUDING TIBC Lab STAT Anemia due to stage 3a chronic kidney disease (HCC) 05/20/2023 8:37 AM EDT Scheduled Procedures Name Priority Associated [...] Additional history exists CKD PHOS USE SMARTSET 07993 09/18/2023 02/0 02/2023, 08/29/2021, 08/02/2020, Additional history exists HbA1c 09/19/2023 03/19/2023, 02/0 02/2023, 05/28/2022, Additional history exists Albumin/Creatinine Ratio 02/20/2024 023, 03/14/2022, 05/19/2021, Additional history exists CKD HGB USE SMARTSET 52749 05/06/202405/06, 05/06/2023, 04/22/2023, Additional history exists COLONOSCOPY-EVERY 5 YRS AGES [...] this encounter Medical Devices Implanted Type Area Tin Flipper Device Identifier Shelf Expiration Date Model / Serial / Lot Envista Hydrophobic Acrylic Intraocular Lens Implanted:Qty: 1 on 12/25/2016 by Raul Neely MD at OR [facility] Right: Eye [employer] 11/09/2018 [id number] / [id number] / [id number] Envista Mx60 +10.0 D Implanted:Qty: 1 on 01/29/2017 by Raul Neely MD at OR [facility] Left: Eye 11/09/2018 [id number] / [id number] / [id number] documented as of this encounter Procedures Procedure Name Priority Date/Time Associated Diagnosis Comments PT INR Routine 04/08/2023 8:41 AM EDT History of DVT (deep vein thrombosis) 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 management encounter retirement current use of anticoagulant therapy DIFFERENTIAL, AUTOMATED STAT 04/08/2023 8:35 AM EDT Anemia due to stage 3a chronic kidney disease (HCC) CBC STAT 04/08/2023 8:35 AM EDT Anemia due to stage 3a chronic kidney disease (HCC) CBC STAT 04/08/2023 8:35 AM EDT Anemia due to stage 3a chronic kidney disease (HCC) DIFFERENTIAL, TECHNOLOGIST REVIEW Routine 04/08/2023 8:35 AM EDT Anemia due to stage 3a chronic kidney disease (HCC) documented in this encounter Results * (ABNORMAL) PT INR (04/08/2023 8:41 AM EDT) Prothrombin Time 26.0(H) 11.6 - 15.2 seconds 04/08/2023 8:13 PM EDT [facility] INR 2.4(H) 0.8 - 1.2 04/08/2023 8:13 PM EDT [facility] [place] Venous blood specimen / Unknown Venipuncture / Unknown 04/08/2023 8:41 AM EDT 04/08/2023 8:41 AM EDT Narrative [facility] - 04/08/2023 8:13 PM EDT Warfarin Therapy INR: 2.0-3.0 conventional anticoagulation INR: 2.5-3.5 high intensity anticoagulation Jena Haas [facility] LAB BLOOD OR DERABLES LAB[facility]ATORY [place] [address] [place] [address] * (ABNORMAL) DIFFERENTIAL, TECHNOLOGIST REVIEW (04/08/2023 8:35 AM EDT) Pathologist [facility] Schistocytes Few(A) None Seen 04/08/2023 8:31 PM EDT [facility] [place] Venous blood specimen / Unknown Venipuncture / Unknown 04/08/2023 8:35 AM EDT 04/08/2023 8:35 AM EDT Tameka MARMOLEJO LAB BLOOD ORDER [facility] [address] [place] [address] * DIFFERENTIAL, AUTOMATED (04/08/2023 8:35 AM EDT) WBC 6.49 4.00 - 10.80 K/uL 04/08/2023 8:31 PM EDT [facility] Neutrophils % 62.2 40.0 - 75.0 % 04/08/2023 8:31 PM EDT [facility] Lymphocytes % 25.1 18.0 - 42.0 % 04/08/2023 8:31 PM EDT [facility] Monocytes % 7.9 1.0 - 11.0 % 04/08/2023 8:31 PM EDT [facility] Eosinophils % 3.9 0.0 - 6.0 % 04/08/2023 8:31 PM EDT [facility] Basophils % 0.6 0.0 - 2.0 % 04/08/2023 8:31 PM EDT [facility] Immature Granulocytes % 0.3 0.0 - 2.0 % 04/08/2023 8:31 PM EDT [facility] Absolute Neutrophils 4.04 1.80 - 7.70 K/uL 04/08/2023 8:31 PM EDT [facility] Absolute Lymphocytes 1.63 1.00 - 4.80 K/ul 04/08/2023 8:31 PM EDT [facility] Absolute Monocytes 0.51 0.00 - 1.10 K/uL 04/08/2023 8:31 PM EDT [facility] Absolute Eosinophils 0.25 0.00 - 0.70 K/uL 04/08/2023 8:31 PM EDT [facility] Absolute Basophils 0.04 0.00 - 0.20 K/uL 04/08/2023 8:31 PM EDT [facility] Absolute Immature Granulocytes 0.02 0.00 - 0.20 K/uL 04/08/2023 8:31 PM EDT [facility] Blood Venous blood specimen / Unknown Venipuncture / Unknown 04/08/2023 8:35 AM EDT 04/08/2023 8:35 AM EDT Tameka MARMOLEJO LAB BLOOD ORDER [facility] [address] [place] [address] * (ABNORMAL) CBC (04/08/2023 8:35 AM EDT) [facility] WBC 6.49 4.00 - 10.80 K/uL 04/08/2023 5:32 PM EDT [facility] RBC 2.85 4.50 - 5.25 M/uL 04/08/2023 5:32 PM EDT [facility] HGB 8.4(L) 14.0 - 16.8 g/dL 04/08/2023 5:32 PM EDT [facility] HCT 27.0(L) 40.0 - 48.4 % 04/08/2023 5:32 PM EDT [facility] MCV 94.7 82.0 - 99.5 fL 04/08/2023 5:32 PM EDT [facility] MCH 29.5 27.0 - 34.0 pg 04/08/2023 5:32 PM EDT [facility] MCHC 31.1 32.0 - 36.0 g/dL 04/08/2023 5:32 PM EDT [facility] RDW 18.1 11.5 - 15.5 % 04/08/2023 5:32 PM EDT [facility] PLT 206 140 - 400 K/uL 04/08/2023 5:32 PM EDT [facility] MPV 10.1 6.6 - 11.1 fL 04/08/2023 5:32 PM EDT [facility] nRBCs 0 <=0 /100 WBCs 04/08/2023 5:32 PM EDT LABORATORY [facility] Blood Venous blood specimen / Unknown Venipuncture / Unknown 04/08/2023 8:35 AM EDT 04/08/2023 8:35 AM EDT Tameka MARMOLEJO LAB BLOOD ORDER [facility] [address] [place] [address] documented in this encounter Visit Diagnoses Diagnosis Cold feeling Other general symptoms Anemia due to stage 3a chronic kidney disease History of DVT (deep vein thrombosis) Personal history of venous thrombosis and embolism 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 management encounter 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 Care Teams Er Medical Technician Relationship Specialty Start Date End Date Nancy Ryan, [address] [place] [address] PCP - General Internal Medicine 09/11/18 documented as of this encounter
--- OUTSIDE RECORDS SUMMARY | 2023-11-13 21:42 | External Medical Summary ---
Author Name Unknown Address Unknown Organization [id number]:[facility] [place] [address] [place] [address] Laboratory Report Ordering Provider Test Date Status JANE WOODRUFF 06/03/2023 08:49:32 Final Observation Date Value Abnormality Reference (Units ) Status Ferritin 06/03/2023 08:49:32 190 30-400 (ng /mL) Final Performing Location LABORATORY C - [address] [place] [address]
--- OUTSIDE RECORDS SUMMARY | 2023-11-13 21:42 | External Medical Summary ---
Author Name Unknown Address Unknown Organization [id number]:LABORATORY [facility] [place] [place] - [address] [place] [address] Laboratory Report Ordering Provider Test Date Status [email or web address] 06/03/2023 08:49:32 Final Observation Date Value Abnormality Reference (Units ) Status Vitamin B12 06/03/2023 08:49:32 554 761-0660 (pg/mL) Final Performing Location LABORATORY [facility] [place] [place] - [address] [place] [address]
--- OUTSIDE RECORDS SUMMARY | 2023-11-13 21:42 | External Medical Summary ---
Author Name Unknown Address Unknown Organization [id number]:LABORATORY [facility] [place] - [address] [facility] [address] Laboratory Report Ordering Provider Test Date Status JANE WOODRUFF 06/03/2023 08:49:32 Final Observation Date Value Abnormality Reference (Units ) Status BUN 06/03/2023 08:49:32 43 Above high normal 6-20 (mg/dL) Final Creatinine 06/03/2023 08:49:32 1.7 Above high normal 0.6-1.2 (mg/dL) Final Glomerular filtration rate/1.73 sq M.predicted [Volume Rate/Area] in Serum, Plasma or Blood by Creatinine-based formula (CKD-EPI) 06/03/2023 08:49:32 45 Below low normal >=60 (mL/min) Final eGFR is calculated based on the CKD-EPI 2020 equation SODIUM 06/03/2023 08:49:32 139 135-146 (m mol/L) Final Potassium 06/03/2023 08:49:32 5.8 Above high normal 3. 5-5.1 (mmol/L) Final Cl 06/03/2023 08:49:32 109 Above high normal 98 -107 (mmol/L) Final CO2 06/03/2023 08:49:32 19 Below low normal 22- 32 (mmol/L) Final Anion gap 06/03/2023 08:49:32 11 7-15 (mmol /L) Final Glucose 06/03/2023 08:49:32 93 70-120 (mg /dL) Final Albumin 06/03/2023 08:49:32 3.6 Below low normal 3.8 -5.0 (g/dL) Final AST (Aspartate aminotransferase) 06/03/2023 08:49:32 21 10-50 (U/L) Fin al Alk Phos 06/03/2023 08:49:32 93 35-130 (U/ L) Final Bilirubin, Total 06/03/2023 08:49:32 0.5 <=1 .2 (mg/dL) Final Calcium 06/03/2023 08:49:32 8.9 8.4-10.2 ( mg/dL) Final Protein 06/03/2023 08:49:32 6.7 6.0-8.3 (g /dL) Final ALT (Alanine aminotransferase) 06/03/2023 08:49:32 20 10-50 (U/L) [place] white Performing Location LABORATORY [facility] [place] - [address] [facility] [address]
--- OUTSIDE RECORDS SUMMARY | 2023-11-13 21:42 | External Medical Summary | Summary of Care ---
Author Name Unknown Organization [facility] Address [address] [place] [address] Phone [phone] Care Team Providers Care Law Enforcement Director Name Role Phone Nancy Ryan DO Primary Care Provider Reason for Visit * Reason Comments Outpatient Testing Encounter Details Date Type Department Care Team (Late st Contact Info) Description 06/04/2023 11:00 AM EDT Laboratory Laboratory [facility] [address] [place] [phone] [facility] 200 [facility] [place] [address] History of DVT (deep vein thrombosis); 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 [...] 1 07/19/2014 Active Blood Glucose Monitoring Suppl (Planearth NET SYSTEM) W/DEVICE KITIndications:DM type 2, goal A1c [...] A1c goal of less than 7.0% ([facility]) Use once a day [...] of DVT (deep vein thrombosis),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 management encounter,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 customer service current use of anticoagulant therapy 0 03/16/2005 [...] mRNA, LNP-s, No Pre serve, 2-Dose Series (Aupix) 06/20/2021,10/22/2020,09/26/2020 COVID-19, LNP-s, No Preserve , Jamie-sucrose, Ages 12+ (Pfizer) 03/13/2022 Covid-19, Mrna, Lnp-s, Pf, B ivalent, 30 Mcg, IM, 12 yrs and above (Pfizer) 09/20/2022 Pneumococcal Conjugate Vacci ne, 20-valent ([id number]) 03/14/2022 Pneumococcal Polysaccharide PPV23 (Pneumovax) 03/19/2006 SEASONAL [...] Visit Nephrology, [place] [address] [place], [place] [address] Alejandrina Sims MD [address] [place] [address] 06/13/2023 11:00 AM EDT Office Visit Ophthalmology, [facility] 132 [facility] [place] [address] Mika Diaz, DO [address] [place] [address] 06/18/2023 9:00 AM EST Laboratory Laboratory [address] [place] [phone] [place] [address] 06/18/2023 11:15 AM EST Immunization/Injecti on Hematology/Oncology Treatment[address] [place] [address] Nurse, Med 4 200 [facility] [place] [address] 06/25/2023 2:45 PM EST Office Visit Hematology/Oncology [address] [place] [address] Fly Velazquez MD 200 [facility] [place] [address] 07/01/2023 11:00 AM EST Laboratory Laboratory [address] [place] [phone] [facility] [place] [address] 07/01/2023 11:30 AM EST Immunization/Injecti on Hematology/Oncology Treatment, [address] [place] [address] Nurse, Med 4 200 [facility] [place] [address] 09/20/2023 8:50 AM EST Office Visit Family Medicine [address] [place] [phone] Nancy Ryan[address] [place] [address] 10/01/2023 9:00 AM EST Office Visit Cardiology [address] [place] [address] Prabhakar Henning PA-C [address] [place] [address] 10/23/2023 10:00 AM EDT Office Visit Sleep Disorders Ctr [facility] [address] [place] [phone] Dorothy Toscano CRNP [address] [place] [address] Pending Results Name Type Priority Associated Diagnoses Date /Time PT INR Lab Routine History of DVT (deep vein thrombosis) 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 management encounter skilled nursing current use of anticoagulant therapy 06/04/2023 11:03 AM EDT Scheduled Procedures Name Priority Associated [...] Additional history exists CKD PHOS USE SMARTSET 85381 09/18/20230 02/2023, 08/29/2021, 08/02/2020, Additional history exists HbA1c 09/19/2023 03/19/2023, 02/2023, 05/28/2022, Additional history exists GFR 12/03/2023 06/03/2023, 02/09, 02/13/2023, Additional history exists Albumin/Creatinine Ratio 02/20/2024 023, 03/14/2022, 05/19/2021, Additional history exists CKD HGB USE SMARTSET 44242 06/04/202406/04, 06/04/2023, 05/20/2023, Additional history exists COLONOSCOPY-EVERY [...] this encounter Medical Devices Implanted Type Area Field Foreman Device Identifier Shelf Expiration Date Model / Serial / Lot Envista Hydrophobic Acrylic Intraocular Lens Implanted:Qty: 1 on 12/25/2016 by Raul Neely MD at OR [facility] Right: Eye [employer] 11/09/2018 [id number] / [id number] / [id number] Envista Mx60 +10.0 D Implanted:Qty: 1 on 01/29/2017 by Raul Neely MD at OR [facility] Left: Eye 11/09/2018 [id number] / [id number] / [id number] documented as of this encounter Procedures Procedure Name Priority Date/Time Associated Diagnosis Comments DIFFERENTIAL, AUTOMATED STAT 06/04/2023 11:03 AM EDT Anemia due to stage 3a chronic kidney disease CBC STAT 06/04/2023 11:03 AM EDT Anemia due to stage 3a chronic kidney disease CBC STAT 06/04/2023 11:03 AM EDT Anemia due to stage 3a chronic kidney disease documented in this encounter Results * DIFFERENTIAL, AUTOMATED (06/04/2023 11:03 AM EDT) WBC 7.01 4.00 - 10.80 K/uL 06/04/2023 11:11 AM EDT LAB[facility]ATORY [place] 56-02 Neutrophils % 66.1 40.0 - 75.0 % 06/04/2023 11:11 AM EDT LAB[facility]ORY [place] 56-02 Lymphocytes % 19.8 18.0 - 42.0 % 06/04/2023 11:11 AM EDT [facility] [place] 56-02 Monocytes % 8.6 1.0 - 11.0 % 06/04/2023 11:11 AM EDT [facility] [place] 56-02 Eosinophils % 4.9 0.0 - 6.0 % 06/04/2023 11:11 AM EDT LABORATORY [facility] 56-02 Basophils % 0.6 0.0 - 2.0 % 06/04/2023 11:11 AM EDT LAB[facility]ORY [place] 56-02 Absolute Neutrophils 4.64 1.80 - 7.70 K/uL 06/04/2023 11:11 AM EDT LABORATORY [facility] 56-02 Absolute Lymphocytes 1.39 1.00 - 4.80 K/ul 06/04/2023 11:11 AM EDT LAB[facility]ORY [place] 56-02 Absolute Monocytes 0.60 0.00 - 1.10 K/uL 06/04/2023 11:11 AM EDT LABORATORY [facility] 56-02 Absolute Eosinophils 0.34 0.00 - 0.70 K/uL 06/04/2023 11:11 AM EDT LAB[facility]ORY [place] 56-02 Absolute Basophils 0.04 0.00 - 0.20 K/uL 06/04/2023 11:11 AM EDT LAB[facility]ORY [place] 56-02 Blood Venous blood specimen / Unknown Venipuncture / Unknown 06/04/2023 11:03 AM EDT 06/04/2023 11:03 AM EDT Tameka MARMOLEJO LAB BLOOD ORDER [facility] 56 [address] [place] [address] * (ABNORMAL) CBC (06/04/2023 11:03 AM EDT) WBC 7.01 4.00 - 10.80 K/uL 06/04/2023 11:[address]T [address] RBC 3.11 4.50 - 5.25 M/uL 06/04/2023 11:[address]T [address] HGB 9.1(L) 14.0 - 16.8 g/dL 06/04/2023 11:11 AM EDT [facility] 56 HCT 28.2(L) 40.0 - 48.4 % 06/04/2023 11:[address] EDT [address] MCV 90.7 82.0 - 99.5 fL 06/04/2023 11:[address] EDT [address] MCH 29.3 27.0 - 34.0 pg 06/04/2023 11:11 AM EDT [facility] 56 MCHC 32.3 32.0 - 36.0 g/dL 06/04/2023 11:11 AM EDT [facility] 56 RDW 18.6 11.5 - 15.5 % 06/04/2023 11:11 AM EDT [facility] 56 PLT 187 140 - 400 K/uL 06/04/2023 11:11 AM EDT [facility] 56 MPV 8.6 6.6 - 11.1 fL 06/04/2023 11:11 AM EDT [facility] 56 Blood Venous blood specimen / Unknown Venipuncture / Unknown 06/04/2023 11:03 AM EDT 06/04/2023 11:03 AM EDT Tameka MARMOLEJO LAB BLOOD ORDER [facility] [address] [place] [address] documented in this encounter Visit Diagnoses Diagnosis [...] and were consensually agreed upon. Care Teams Law Enforcement Director Relationship Specialty Start Date End Date Nancy Ryan DO [address] [place] [address] [place] [address] PCP - General Internal Medicine 09/11/18 documented as of this encounter
--- OUTSIDE RECORDS SUMMARY | 2023-11-13 21:42 | External Medical Summary | Summary of Care ---
Author Name Unknown Organization [facility] Address [address] [place] [address] Phone [phone] Care Team Providers Care Gas Desulfurizer Name Role Phone Nancy Ryan DO Primary Care Provider [phone] Reason for Visit * Reason Comments Medication Administration Procrit * Episode Based Medications (Routine) - Authorized Specialty Diagnoses / Procedures Referred By Contac t Referred To Contact Diagnoses Anemia due to stage 3a chronic kidney disease Procedures AL INJ RETACRIT NON-ESRD USE Tameka Pires CRNP [address] [facility] [place] [address] Anc Hem/Onc [address] [place] [phone] Referral ID Status Reason Start Date Expiration Date V isits Requested Visits Authorized [id number] Authorized 04/01/2023 07/22/2023 [id number] Encounter Details Date Type Department Care Team (Late st Contact Info) Description 06/04/2023 10:30 AM EDT Immunization/I njection Hematology/Oncology Treatment, [place] [address] [place] [address] Nurse, Med 200 [facility] [place] [address] Anemia due to stage 3a chronic kidney [...] 1 07/19/2014 Active Blood Glucose Monitoring Suppl (BlueStacks SYSTEM) W/DEVICE KITIndications:DM type 2, goal A1c [...] current use of insulin ([facility]) Take 1 Tablet by mouth [...] Diabetes Taxonomy. 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 therapy 0 [...] mRNA, LNP-s, No Pre serve, 2-Dose Series (Journalism Online) 06/20/2021,10/22/2020,09/26/2020 COVID-19, LNP-s, No Preserve , Jamie-sucrose, Ages 12+ (Pfizer) 03/13/2022 Covid-19, Mrna, Lnp-s, Pf, B ivalent, 30 Mcg, IM, 12 yrs and above (Pfizer) 09/20/2022 Pneumococcal Conjugate Vacci ne, 20-valent ([id number]) 03/14/2022 Pneumococcal Polysaccharide PPV23 (Pneumovax) 03/19/2006 SEASONAL [...] Sign Reading Time Taken Comments Blood Pressure 143/82 06/04/2023 11:16 AM EDT Pulse 72 06/04/2023 11:16 AM EDT Temperature - - Respiratory Rate - - Oxygen Saturation - - Inhaled Oxygen Concentration - - Weight - - Height - - Body Mass Index - - documented in this encounter Nursing Notes * Pat Trent LPN - 06/04/2023 11:31 AM EDT Room 4. Pt arrived for Procrit injection. Hgb 9.1. Administered in RAMILA. Pt tolerated well. BP WNL. To return in 2 weeks. Discharged in stable condition. documented in this encounter Plan of Treatment Upcoming Encounters Date Type Department Care Team (Late st Contact Info) Description 06/06/2023 3:00 PM EDT Office Visit Nephrology, [facility] 200 [facility] [place] [address] Alejandrina Sims MD 200 [facility] [place] [address] 06/13/2023 11:00 AM EDT Office Visit [facility] [place] [address] Mika Diaz, [address] [place] [address] 06/18/2023 9:00 AM EST Laboratory Laboratory [address] [place] [phone] [address] [place] [address] 06/18/2023 11:15 AM EST Immunization/Injecti on Hematology/Oncology Treatment, [place] [address] [place] [address] Nurse, Med 200 [facility] [place] [address] 06/25/2023 2:45 PM EST Office Visit Hematology/Oncology [facility] [address] [place] [address] Fly Velazquez MD [address] [place] [address] 07/01/2023 11:00 AM EST Laboratory Laboratory [facility] [place] [address] [place] [phone] [place], Lab [facility] 200 [facility] [place] [address] 07/01/2023 11:30 AM EST Immunization/Injecti on Hematology/Oncology Treatment, [place] 200 [facility] [place] [address] Nurse, Med 200 [facility] [place] [address] 09/20/2023 8:50 AM EST Office Visit Family Medicine [address] [place] [phone] [place] [address] 10/01/2023 9:00 AM EST Office Visit Cardiology [address] [place] [address] Prabhakar Henning PAJoseC [address] [place] [address] 10/23/2023 10:00 AM EDT Office Visit Sleep Disorders Ctr M[facility] [place] [address] [place] [phone] Dorothy Toscano CRNP [address] [place] [address] Scheduled Procedures Name Priority Associated Diagnoses Date/Ti [...] Additional history exists CKD PHOS USE SMARTSET 84255 09/18/20230 02/2023, 08/29/2021, 08/02/2020, Additional history exists HbA1c 09/19/2023 03/19/2023, 020 02/2023, 05/28/2022, Additional history exists GFR 12/03/2023 06/03/2023, 02/09, 02/13/2023, Additional history exists Albumin/Creatinine Ratio 02/20/2024 023, 03/14/2022, 05/19/2021, Additional history exists CKD HGB USE SMARTSET 64369 06/04/202406/04, 06/04/2023, 05/20/2023, Additional history exists COLONOSCOPY-EVERY [...] this encounter Medical Devices Implanted Type Area Automation Architect Device Identifier Shelf Expiration Date Model / Serial / Lot Envista Hydrophobic Acrylic Intraocular Lens Implanted:Qty: 1 on 12/25/2016 by Raul Neely MD at OR [facility] Right: Eye [employer] 11/09/2018 [id number] / [id number] / [id number] Envista Mx60 +10.0 D Implanted:Qty: 1 on 01/29/2017 by Raul Neely MD at OR [facility] Left: Eye 11/09/2018 [id number] / [id number] / [id number] documented as of this encounter Visit Diagnoses Diagnosis Anemia due to stage 3a chronic kidney disease- Primary documented in this encounter Administered Medications Inactive Administered Medications - up to 3 most recent administrations Medication Order MAR Action Action Date Dose Rate Site Epoetin Gautam 29848 UNIT/ML inj 20,000 Units 20,000 Units, Subcutaneous, ONCE, On Sat06/04/23 at 1145, For 1 dose Given 06/04/2023 11:20 AM EDT 20,000 Units Arm Left Upper [...] and were consensually agreed upon. Care Teams Gas Desulfurizer Relationship Specialty Start Date End Date Nancy Ryan DO [address] [place] [address] [place] [phone] PCP - General Internal Medicine 09/11/18 documented as of this encounter
--- OUTSIDE RECORDS SUMMARY | 2023-11-13 21:42 | External Medical Summary | Summary of Care ---
Author Name Unknown Organization [facility] Address [address] [place] [address] Phone [phone] Care Team Providers Care Grape Picker Name Role Phone Nancy Ryan DO Primary Care Provider [phone] Reason for Visit * Reason Comments Outpatient Testing Encounter Details Date Type Department Care Team (Late st Contact Info) Description 06/03/2023 8:30 AM EDT Laboratory Laboratory [address] [place] [phone] [address] [place] [address] Anemia due to stage 3a chronic kidney disease Allergies No known active allergiesdocumented as of this encounter (statuses as of 06/03/2023) Medications Medication Sig Dispensed Refills Start Date End Date Status MULTIPLE VITAMIN PO TABS 1 TABLET DAILY 0 07/03/2011 Active OMEGA-3 FISH OIL 1000 MG PO CAPS Take one capsule by mouth daily 0 07/03/2011 Active VITAMIN B-12 1000 MCG PO TABSIndications:Vi tamin B12 deficiency 1 TABLET DAILY 90 Tab 1 07/19/2014 Active Blood Glucose Monitoring Suppl (Tastebuds ULTRA SYSTEM) W/DEVICE KITIndications:DM type 2, goal [...] heart failure (HCC),Stage 3a chronic kidney disease ([facility]),HTN, goal below 130/80 TAKE 1 AND 1/2 [...] of DVT (deep vein thrombosis),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 management encounter,custodial current use of anticoagulant therapy Take 5 [...] as of this encounter (statuses as of 06/03/2023) Active Problems Problem Noted Date Diagnosed Date [...] Taxonomy. 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 AHP Gout of wrist documented as of this encounter (statuses as of 06/03/2023) Resolved Problems Problem Noted Date Diagnosed Date [...] disease 03/28/2016 10/04/2017 Venous stasis dermatitis 11/09/2014 04/ Persistent insomnia 06/29/2014 10/04/19 18 Restless legs [...] as of this encounter (statuses as of 06/03/2023) Immunizations Name Administration Dates Next Due COVID-19 mRNA, LNP-s, No Pre serve, 2-Dose Series (Paddle (Mobile Payments)) 06/20/2021,10/22/2020,09/26/2020 COVID-19, LNP-s, No Preserve , Jamie-sucrose, Ages 12+ (Pfizer) 03/13/2022 Covid-19, Mrna, Lnp-s, Pf, B ivalent, 30 Mcg, IM, 12 yrs and above (Paddle (Mobile Payments)) 09/20/2022 Pneumococcal Conjugate Vacci ne, 20-valent ([id number]) 03/14/2022 Pneumococcal Polysaccharide PPV23 (Pneumovax) 03/19/2006 SEASONAL [...] Team (Late st Contact Info) Description 06/04/2023 7:00 AM EDT 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 Pharmacy, [address] [place] [address] [place] [address] 06/04/2023 10:30 AM EDT Immunization/Injection Hematology/Oncolog y Treatment, [facility] [address] [place] [address] Nurse, Med 4 [address] [place] [address] 06/06/2023 3:00 PM EDT Office Visit Nephrology, [facility] [address] [place] [address] Alejandrina Sims MD [address] [place] [address] 06/13/2023 11:00 AM EDT Office Visit Ophthalmology, [facility] [address] [place] [address] Mika Diaz DO [address] [place] [address] 06/18/2023 9:00 AM EST Laboratory Laboratory [address] [place] [phone] [place] [address] 06/25/2023 2:45 PM EST Office Visit Hematology/Oncolog y [facility] [place] [address] [place] [address] Fly Velazquez MD [address] [place] [address] 09/20/2023 8:50 AM EST Office Visit Family Medicine [address] [place] [phone] [place] [address] 10/01/2023 9:00 AM EST Office Visit Cardiology [address] [place] [address] Prabhkaar Henning PAJoseC [address] [place] [address] 10/23/2023 10:00 AM EDT Office Visit Sleep Disorders Ctr [facility] [address] [place] [phone] Dorothy Toscano CRNP [address] [place] [address] Pending Results Name Type Priority Associated Diagnoses Date /Time IRON SCREEN, INCLUDING TIBC Lab STAT Anemia due to stage 3a chronic kidney disease 06/03/2023 8:49 AM EDT Scheduled Procedures Name Priority Associated [...] 08/10/2019, Additional history exists GFR 08/22/2023 02/19/2023, 0712/2022, 02/10/2023, Additional history exists CKD PHOS USE SMARTSET 21448 09/18/2023 020 02/2023, 08/29/2021, 08/02/2020, Additional history exists HbA1c 09/19/2023 03/19/2023, 020 02/2023, 05/28/2022, Additional history exists Albumin/Creatinine Ratio 02/20/2024 023, 03/14/2022, 05/19/2021, Additional history exists CKD HGB USE SMARTSET 59900 05/20/202405/20, 05/20/2023, 05/06/2023, Additional history exists COLONOSCOPY-EVERY [...] this encounter Medical Devices Implanted Type Area Intelligence Consultant Device Identifier Shelf Expiration Date Model / Serial / Lot Envista Hydrophobic Acrylic Intraocular Lens Implanted:Qty: 1 on 12/25/2016 by Raul Neely MD at OR [facility] Right: Eye [employer] 11/09/2018 [id number] / [id number] / [id number] Envista Mx60 +10.0 D Implanted:Qty: 1 on 01/29/2017 by Raul Neely MD at OR [facility] Left: Eye 11/09/2018 [id number] / [id number] / [id number] documented as of this encounter Visit Diagnoses [...] and were consensually agreed upon. Care Teams Grape Picker Relationship Specialty Start Date End Date Nancy Ryan DO [address] [place] [address] [place] [phone] PCP - General Internal Medicine 09/11/18 documented as of this encounter
--- OUTSIDE RECORDS SUMMARY | 2023-11-13 21:42 | External Medical Summary | Summary of Care ---
Author Name Unknown Organization [facility] Address [address] [place] [address] Phone [phone] Care Team Providers Care Rfp Writer Name Role Phone Nancy Ryan DO Primary Care Provider Reason for Visit * Reason Comments Dosage Adjustment Via Phone (anticoag Cl inic) Encounter Details Date Type Department Care Team (Latest Contact Info) Description 06/04/2023 7:00 AM EDT 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 Pharmacy, [address] [place] [address] [place] [address] History of DVT (deep vein thrombosis)* Allergies [...] 1 07/19/2014 Active Blood Glucose Monitoring Suppl (Aden & Anais SYSTEM) W/DEVICE KITIndications:DM type 2, goal A1c [...] Dx. 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 0 03/16/2005 [...] mRNA, LNP-s, No Pre serve, 2-Dose Series (Jibo) 06/20/2021,10/22/2020,09/26/2020 COVID-19, LNP-s, No Preserve , Jamie-sucrose, Ages 12+ (Pfizer) 03/13/2022 Covid-19, Mrna, Lnp-s, Pf, B ivalent, 30 Mcg, IM, 12 yrs and above (Jibo) 09/20/2022 Pneumococcal Conjugate Vacci ne, 20-valent ([id number]) 03/14/2022 Pneumococcal Polysaccharide PPV23 (Pneumovax) 03/19/2006 SEASONAL [...] this encounter Progress Notes * Jena Haas [facility] - 06/04/2023 11:54 AM EDT Medication Therapy Disease Management - 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 Patient: Ronnie Wu | : 1955 Subjective Contacts Type Contact Phone/Fax 06/04/2023 11:57 AM EDT Phone (Outgoing) Ronnie Wu "Srevando" (Self) [phone] (M) Spoke to patient via MyG Patient-Reported Symptoms: Patient Findings Negatives: Signs/symptoms of thrombosis, Signs/symptoms of bleeding, Change in health, Change in alcohol use, Change in activity, Upcoming invasive procedure, Missed doses, Extra doses, Change in medications, Change in diet/appetite, Bruising Objective Current Warfarin Dose As of 06/04/2023 Warfarin maintenance plan: 5 mg (5 mg x 1) every day INR Result As of 06/04/2023 INR goal: 2.0-3.0 INR used for dosin.0 (06/04/2023) Assessment & Plan Warfarin Plan As of 06/04/2023 Full warfarin instructions: 5 mg every day No change documented: Jena Haas RPh Next INR check: 06/18/2023 Repeat PT/INR in 2 week(s) Weekly dose: not changed Additional Dosing Information: Description Takes in AM Recent SDH due to trauma fall on 01/29 Jena Haas RPh Clinical Pharmacist 06/04/2023, 11:54 AM documented in this encounter Plan of Treatment Upcoming Encounters Date Type Department Care Team (Late st Contact Info) Description 06/06/2023 3:00 PM EDT Office Visit Nephrology, [facility] [address] [facility] [place] [address] Alejandrina Sims MD [address] [facility] [place] [address] 06/13/2023 11:00 AM EDT Office Visit Ophthalmology, [facility] [address] [place] [address] Mika Diaz, [address] [place] [address] 06/18/2023 9:00 AM EST Laboratory Laboratory [address] [place] [phone] [address] [place] [address] 06/18/2023 11:15 AM EST Immunization/Injection Hematology/Oncolog y Treatment, [place] [address] [facility] [place] [address] Nurse, Med [address] [place] [address] 06/19/2023 7:00 AM EST 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 Pharmacy, [address] [place] [address] [place] [address] 06/25/2023 2:45 PM EST Office Visit Hematology/Oncolog y [facility] [place] [address] [place] [address] Fly Velazquez MD [address] [place] [address] 07/01/2023 11:00 AM EST Laboratory Laboratory [facility] [place] [address] [place] [address] [place], Lab [facility] [address] [facility] [place] [address] 07/01/2023 11:30 AM EST [facility] [address] [facility] [place] [address] Nurse, Med 4 [address] [place] [address] 09/20/2023 8:50 AM EST Office Visit Family Medicine [address] [place] [phone] [address] [place] [address] 10/01/2023 9:00 AM EST Office Visit Cardiology [address] [place] [address] Prabhakar Henning PA-C [address] [place] [address] 10/23/2023 10:00 AM EDT Office Visit Sleep Disorders [facility] [address] [place] [phone] Dorothy Toscano CRNP [address] [place] [address] Scheduled Procedures Name Priority Associated Diagnoses Date/Ti [...] Additional history exists CKD PHOS USE SMARTSET 41724 09/18/2023 02/0 02/2023, 08/29/2021, 08/02/2020, Additional history exists HbA1c 09/19/2023 03/19/2023, 02/0 02/2023, 05/28/2022, Additional history exists GFR 12/03/2023 06/03/2023, 0708/2022, 02/13/2023, Additional history exists Albumin/Creatinine Ratio 02/20/2024 023, 03/14/2022, 05/19/2021, Additional history exists CKD HGB USE SMARTSET 37603 06/04/202406/04, 06/04/2023, 05/20/2023, Additional history exists COLONOSCOPY-EVERY [...] this encounter Medical Devices Implanted Type Area Joint Filler Device Identifier Shelf Expiration Date Model / Serial / Lot Envista Hydrophobic Acrylic Intraocular Lens Implanted:Qty: 1 on 12/25/2016 by Raul Neely MD at OR [facility] Right: Eye [employer]OMB 11/09/2018 [id number] / [id number] / [id number] Envista Mx60 +10.0 D Implanted:Qty: 1 on 01/29/2017 by Raul Neely MD at OR [facility] Left: Eye 11/09/2018 [id number] / [id number] documented as of this encounter Visit Diagnoses [...] and were consensually agreed upon. Care Teams Rfp Writer Relationship Specialty Start Date End Date Nancy Ryan DO [address] [place] [address] [place] [address] PCP - General Internal Medicine 09/11/18 documented as of this encounter
--- OUTSIDE RECORDS SUMMARY | 2023-11-13 21:42 | External Medical Summary ---
Author Name Unknown Address Unknown Organization [id number]:[facility] [place] [address] Laboratory Report Ordering Provider Test Date Status JANE WOODRUFF 06/04/2023 11:03:34 Final Observation Date Value Abnormality Reference (Units ) Status WBC, Total 06/04/2023 11:03:34 7.01 4.00-10.8 0 (K/uL) Final RBC 06/04/2023 11:03:34 3.11 4.50-5.25 (M/uL) Final Hemoglobin 06/04/2023 11:03:34 9.1 Below low normal 14 .0-16.8 (g/dL) Final HCT 06/04/2023 11:03:34 28.2 Below low normal 40. 0-48.4 (%) Final MCV 06/04/2023 11:03:34 90.7 82.0-99.5 (fL) Final MCH 06/04/2023 11:03:34 29.3 27.0-34.0 (pg) Final MCHC 06/04/2023 11:03:34 32.3 32.0-36.0 (g/dL) Final RDW 06/04/2023 11:03:34 18.6 11.5-15.5 (%) Final Platelets 06/04/2023 11:03:34 187 140-400 (K /uL) Final MPV 06/04/2023 11:03:34 8.6 6.6-11.1 ( fL) Final Performing Location [facility] [place] [address]
--- OUTSIDE RECORDS SUMMARY | 2023-11-13 21:42 | External Medical Summary | Summary of Care ---
Author Name Unknown Organization [facility] Address [address] [place] [address] Phone [phone] Care Team Providers Care Leather Goods Ii Assembler Name Role Phone Ryan Nancy Muro Primary Care Provider Reason for Visit * Reason Comments Outpatient Testing Encounter Details Date Type Department Care Team Description 05/20/2023 Laboratory Laboratory [address] [place] [phone] [place] [address] Anemia due to stage 3a chronic kidney [...] 1 07/19/2014 Active Blood Glucose Monitoring Suppl (Pacific DataVision ULTRA SYSTEM) W/DEVICE KITIndications:DM type 2, goal [...] hemoglobin A1c goal of less than 7.0% ([facility]) Use once a day with basaglar. 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 use of anticoagulant therapy Take 5 [...] use of insulin ([facility]) Inject 48 Units under the [...] current use of insulin ([facility]) Take 1 Tablet by mouth [...] Noted on CT scan at [facility] 05/2019 Mild nonproliferative diabet ic retinopathy of [...] 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 t herapy 03/16/2005 [...] mRNA, LNP-s, No Pre serve, 2-Dose Series (Aramsco) 06/20/2021,10/22/2020,09/26/2020 COVID-19, LNP-s, No Preserve , Jamie-sucrose, Ages 12+ (Pfizer) 03/13/2022 Covid-19, Mrna, Lnp-s, Pf, B ivalent, 30 Mcg, IM, 12 yrs and above (Aramsco) 09/20/2022 Pneumococcal Conjugate Vacci ne, 20-valent ([id number]) 03/14/2022 Pneumococcal Polysaccharide PPV23 (Pneumovax) 03/19/2006 SEASONAL [...] Hematology Oncolog y Nurse, Med [address] [place] [address] [address] 06/03/2023 Laboratory Laboratory [place], Lab [address] [place] [address] 06/04/2023 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 Pharmacy [address] [place] [address] 06/04/2023 Immunization/Injection Hematology Oncolog y Nurse, Med [address] [place] [address] [address] 06/13/2023 Office Visit Ophthalmology Mika Diaz DO [address] [place] [address] 06/18/2023 Laboratory Laboratory [address] [place] [address] 06/25/2023 Office Visit Hematology Oncology Fly Velazquez MD [address] [place] [address] 09/16/2023 Office Visit Nephrology Alejandrina Sims MD [address] [place] [address] 09/20/2023 Office Visit Family Medicine Nancy Ryan[address] [place] [address] 10/01/2023 Office Visit Cardiology Prabhakar Henning PA-C [address] [place] [address] 10/23/2023 Office Visit Sleep Disorders Dorothy Toscano CRNP [address] [place] [address] Pending Results Name Type Priority Associated Diagnoses Date /Time CBC WITH WBC DIFFERENTIAL Lab STAT Anemia due to stage 3a chronic kidney disease 05/20/2023 8:38 AM EDT CBC Lab STAT Anemia due to stage 3a chronic kidney disease 05/20/2023 8:38 AM EDT DIFFERENTIAL, AUTOMATED Lab STAT Anemia due to stage 3a chronic kidney disease 05/20/2023 8:38 AM EDT Scheduled Procedures Name Priority Associated [...] Additional history exists CKD PHOS USE SMARTSET 69837 09/18/2023 02/0 02/2023, 08/29/2021, 08/02/2020, Additional history exists HbA1c 09/19/2023 03/19/2023, 02/0 02/2023, 05/28/2022, Additional history exists Albumin/Creatinine Ratio 02/20/2024 023, 03/14/2022, 05/19/2021, Additional history exists CKD HGB USE SMARTSET 21179 05/06/202405/06, 05/06/2023, 04/22/2023, Additional history exists COLONOSCOPY-EVERY [...] this encounter Medical Devices Implanted Type Area Cable Tender Device Identifier Shelf Expiration Date Model / Serial / Lot Envista Hydrophobic Acrylic Intraocular Lens Implanted:Qty: 1 on 12/25/2016 by Raul Neely MD at OR [facility] Right: Eye [employer] LOMB 11/09/2018 [id number] / [id number] / [id number] Envista Mx60 +10.0 D Implanted:Qty: 1 on 01/29/2017 by Raul Neely MD at OR [facility] Left: Eye 11/09/2018 [id number] / [id number] / [id number] documented as of this encounter Visit Diagnoses [...] and were consensually agreed upon. Care Teams Leather Goods Ii Assembler Relationship Specialty Start Date End Date Nancy Ryan, [address] [place] [address] PCP - General Internal Medicine 09/11/18 documented as of this encounter
--- OUTSIDE RECORDS SUMMARY | 2023-11-13 21:42 | External Medical Summary ---
Author Name Unknown Address Unknown Organization [id number]:[facility] [place] [address] Laboratory Report Ordering Provider Test Date Status MIRYAM BRANNON 06/04/2023 11:03:34 Final Warfarin Therapy
INR: 2 .0-3.0 conventional anticoagulation
INR: 2.5- 3.5 high intensity anticoagulation Observation Date Value Abnormality Reference (Units ) Status PT 06/04/2023 11:03:34 31.5 Above high normal 11 .6-15.2 (seconds) Final INR 06/04/2023 11:03:34 3.0 Above high normal 0. 8-1.2 Final Performing Location [facility] [place] [address]
--- OUTSIDE RECORDS SUMMARY | 2023-11-13 21:42 | External Medical Summary | Summary of Care ---
Author Name Unknown Organization [facility] Address [address] [place] [address] Phone [phone] Care Team Providers Care Retail Store Clerk Name Role Phone Ryan Nancy Muro Primary Care Provider Reason for Visit * Reason Comments Outpatient Testing Encounter Details Date Type Department Care Team Description 04/08/2023 Laboratory Laboratory [address] [place] [phone] [place] [address] Cold feeling; Anemia due to stage 3a chronic kidney disease (HCC); History of DVT (deep vein thrombosis); 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 management encounter; snf current use of anticoagulant therapy Allergies No [...] 1 4 Active Blood Glucose Monitoring Suppl (EcoIntense SYSTEM) W/DEVICE KITIndications:DM type 2, goal A1c [...] of insulin ([facility]) Take by mouth 1 Tablet 2 times [...] Diabetes Taxonomy. 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 03/16/2005 [...] mRNA, LNP-s, No Pre serve, 2-Dose Series (Bioheart) 06/20/2021,10/22/2020,09/26/2020 COVID-19, LNP-s, No Preserve , Jamie-sucrose, Ages 12+ (Pfizer) 03/13/2022 Covid-19, Mrna, Lnp-s, Pf, B ivalent, 30 Mcg, IM, 12 yrs and above (Bioheart) 09/20/2022 Pneumococcal Conjugate Vacci ne, 20-valent ([id number]) 03/14/2022 Pneumococcal Polysaccharide PPV23 (Pneumovax) 03/19/2006 SEASONAL [...] Oncolog y Nurse, Med 4 [address] [place] [address] 06/03/2023 Laboratory Laboratory [place], Lab [address] [place] [address] 06/04/2023 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 Pharmacy [address] [place] [address] 06/04/2023 Immunization/Injection Hematology Oncolog y Nurse, Med 4 [address] [facility] [place] [address] 06/13/2023 Office Visit Ophthalmology Mika Diaz DO [address] [place] [address] 06/18/2023 Laboratory Laboratory [address] [place] [address] 06/25/2023 Office Visit Hematology Oncology Fly Velazquez MD [address] [place] [address] 09/16/2023 Office Visit Nephrology SimsAlejandrina montero MD [address] [facility] [place] [address] 09/20/2023 Office Visit Family Medicine Nancy [address] [place] [address] 10/01/2023 Office Visit Cardiology Prabhakar Henning PA-C [address] [place] [address] 10/23/2023 Office Visit Sleep Disorders Dorothy Toscano CRNP [address] [place] [address] Scheduled Procedures Name Priority Associated Diagnoses Date/Ti [...] 08/10/2019, Additional history exists GFR 08/22/2023 02/19/2023, 0 12/2022, 02/10/2023, Additional history exists CKD PHOS USE SMARTSET 57062 09/18/2023 020 02/2023, 08/29/2021, 08/02/2020, Additional history exists HbA1c 09/19/2023 03/19/2023, 0 02/2023, 05/28/2022, Additional history exists Albumin/Creatinine Ratio 02/20/2024 023, 03/14/2022, 05/19/2021, Additional history exists CKD HGB USE SMARTSET 59233 05/06/202405/06, 05/06/2023, 04/22/2023, Additional history exists COLONOSCOPY-EVERY [...] this encounter Medical Devices Implanted Type Area Electric Freight Car Operator Device Identifier Shelf Expiration Date Model / Serial / Lot Envista Hydrophobic Acrylic Intraocular Lens Implanted:Qty: 1 on 12/25/2016 by Raul Neely MD at OR [facility] Right: Eye [employer]OM[employer] 11/09/2018 [id number] / [id number] / [id number] Envista Mx60 +10.0 D Implanted:Qty: 1 on 01/29/2017 by Raul Neely MD at OR [facility] Left: Eye 11/09/2018 MX60 / [id number] / [id number] documented as of this encounter Procedures Procedure Name Priority Date/Time Associated Diagnosis Comments PT INR Routine 04/08/2023 8:41 AM EDT History of DVT (deep vein thrombosis) 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 DIFFERENTIAL, AUTOMATED [...] - 1.2 04/08/2023 8:13 PM EDT [facility] Blood Venous blood specimen / Unknown Venipuncture / Unknown 04/08/2023 8:41 AM EDT 04/08/2023 8:41 AM EDT Narrative [facility] - 04/08/2023 8:13 PM EDT Warfarin Therapy INR: 2.0-3.0 conventional anticoagulation INR: 2.5-3.5 high intensity anticoagulation Jena Haas [facility] LAB BLOOD OR DERABLES [facility] [address] [place] [address] * (ABNORMAL) DIFFERENTIAL, TECHNOLOGIST REVIEW (04/08/2023 8:35 AM EDT) Schistocytes Few(A) None Seen 04/08/2023 8:31 PM EDT LABORATORY [facility] Blood Venous blood specimen / Unknown Venipuncture / Unknown 04/08/2023 8:35 AM EDT 04/08/2023 8:35 AM EDT Tameka MARMOLEJO LAB BLOOD ORDER [facility] [address] [place] [address] * DIFFERENTIAL, AUTOMATED (04/08/2023 8:35 AM EDT) [...] Tameka MARMOLEJO LAB BLOOD ORDER [facility] [address] [place] [address] * (ABNORMAL) CBC (04/08/2023 8:35 AM EDT) WBC 6.49 4.00 [...] 8:35 AM EDT 04/08/2023 8:35 AM EDT Tamekamoncho Ortizanshu MARMOLEJO LAB BLOOD ORDER [facility] [address] [facility] [place] [address] documented in this encounter Visit Diagnoses Diagnosis Cold feeling Other general symptoms Anemia due to stage 3a chronic kidney disease History of DVT (deep vein thrombosis) Personal history of venous thrombosis and embolism 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 management encounter Encounter for therapeutic drug monitoring snf current use of anticoagulant therapy documented in [...] and were consensually agreed upon. Care Teams Retail Store Clerk Relationship Specialty Start Date End Date Nancy Ryan, [address] [place] [address] PCP - General Internal Medicine 09/11/18 documented as of this encounter
--- OUTSIDE RECORDS SUMMARY | 2023-11-13 21:42 | External Medical Summary ---
Author Name Unknown Address Unknown Organization K01:[facility] [place] [address] [place] [address] Laboratory Report Ordering Provider Test Date Status KACYJANE 06/03/2023 08:49:32 Final Observation Date Value Abnormality Reference (Units ) Status Folic Acid 06/03/2023 08:49:32 >20.0 >4.5 (ng/ mL) Final Performing Location [facility] - [address] [place] [address]
--- OUTSIDE RECORDS SUMMARY | 2023-11-13 21:43 | External Medical Summary ---
Author Name Unknown Address Unknown Organization K01:[facility] - [address] [facility] [address] Laboratory Report Ordering Provider Test Date Status JANE WOODRUFF 05/20/2023 08:38:58 Final Observation Date Value Abnormality Reference (Units ) Status SYNC LEUKOCYTES IN BLOOD BY AUTOMATED COUNT 05/20/2023 08:38:58 7.21 4.00-10.80 (K/uL) Final Segs 05/20/2023 08:38:58 64.0 40.0-75.0 (%) Final Lymphs % 05/20/2023 08:38:58 20.7 18.0-42.0 (%) Final Monos 05/20/2023 08:38:58 8.9 1.0-11.0 (%) Final Eosinophils 05/20/2023 08:38:58 5.4 0.0-6.0 (%) Final Basos 05/20/2023 08:38:58 0.7 0.0-2.0 (%) Final Immature Granulocyte, Percent 05/20/2023 08:38:58 0.3 0.0-2.0 (%) Final Absolute Segs 05/20/2023 08:38:58 4.62 1.80-7.70 (K/uL) Final Lymphs, absolute 05/20/2023 08:38:58 1.49 1.00-4.80 (K/ul) Final Monos, Abs 05/20/2023 08:38:58 0.64 0.00-1.10 (K/uL) Final Eos, Abs 05/20/2023 08:38:58 0.39 0.00-0.70 (K/uL) Final Basos, Abs 05/20/2023 08:38:58 0.05 0.00-0.20 (K/uL) Final Immature Granulocytes, Number 05/20/2023 08:38:58 0.02 0.00-0.20 (K/uL) Final Performing Location LABOR[facility]ORY [facility] - [address] [facility] [address]
--- OUTSIDE RECORDS SUMMARY | 2023-11-13 21:43 | External Medical Summary | Summary of Care ---
Author Name Unknown Organization [facility] Address [address] [place] [address] Phone [phone] Care Team Providers Care Lacquer Spray Booth Operator Name Role Phone Ryan Nancy Muro Primary Care Provider [phone] Reason for Visit * Reason Comments Outpatient Testing Encounter Details Date Type Department Care Team Description 05/20/2023 Laboratory Laboratory [address] [place] [phone] [place] [address] Anemia due to stage 3a chronic kidney [...] 1 07/19/2014 Active Blood Glucose Monitoring Suppl (Mamba ULTRA SYSTEM) W/DEVICE KITIndications:DM type 2, goal [...] Oral Tablet (Lasix)Indications :Chronic right-sided heart failure ([facility]),Stage 3a chronic kidney disease ([facility]),HTN, goal below 130/80 TAKE 1 AND [...] of DVT (deep vein thrombosis),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 management 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,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 Take 5 [...] of insulin ([facility]) Inject 48 Units under the skin [...] term 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 03/16/2005 [...] mRNA, LNP-s, No Pre serve, 2-Dose Series ([employer]) 06/20/2021,10/22/2020,09/26/2020 COVID-19, LNP-s, No Preserve , Jamie-sucrose, Ages 12+ (Pfizer) 03/13/2022 Covid-19, Mrna, Lnp-s, Pf, B ivalent, 30 Mcg, IM, 12 yrs and above ([employer]) 09/20/2022 Pneumococcal Conjugate Vacci ne, 20-valent ([id number]) 03/14/2022 Pneumococcal Polysaccharide PPV23 (Pneumovax) 03/19/2006 SEASONAL [...] Nurse, Med [address] [place] [address] [address] 06/03/2023 Laboratory Laboratory [place], Lab [address] [place] [address] 06/04/2023 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 Pharmacy [address] [place] [address] 06/04/2023 Immunization/Injection Hematology Oncolog y Nurse, Med [address] [place] [address] 06/13/2023 Office Visit Ophthalmology Mika Diaz DO [address] [place] [address] 06/18/2023 Laboratory Laboratory [address] [place] [address] 06/25/2023 Office Visit Hematology Oncology Fly Velazquez MD [address] [place] [address] 09/16/2023 Office Visit Nephrology Alejandrina Sims MD [address] [place] [address] 09/20/2023 Office Visit Family Medicine Nancy [address] [place] [address] 10/01/2023 Office Visit Cardiology Prabhakar Henning PA-C [address] [place] [address] 10/23/2023 Office Visit Sleep Disorders Dorothy Toscano CRNP [address] [place] [address] Pending Results Name Type Priority Associated Diagnoses [...] Additional history exists CKD PHOS USE SMARTSET 84276 09/18/2023 02/0 02/2023, 08/29/2021, 08/02/2020, Additional history exists HbA1c 09/19/2023 03/19/2023, 02/0 02/2023, 05/28/2022, Additional history exists Albumin/Creatinine Ratio 02/20/2024 023, 03/14/2022, 05/19/2021, Additional history exists CKD HGB USE SMARTSET 21067 05/06/202405/06, 05/06/2023, 04/22/2023, Additional history exists COLONOSCOPY-EVERY [...] encounter Medical Devices Implanted Type Area Enterprise Integration Architect Device Identifier Shelf Expiration Date Model / Serial / Lot Envista Hydrophobic Acrylic Intraocular Lens Implanted:Qty: 1 on 12/25/2016 by Raul Neely MD at OR [facility] Right: Eye [employer]OM[employer] 11/09/2018 [id number] / [id number] Envista Mx60 +10.0 D Implanted:Qty: 1 on 01/29/2017 by Raul Neely MD at OR [facility] Left: Eye 11/09/2018 [id number] / [id number] / [id number] documented as of this encounter Visit Diagnoses [...] and were consensually agreed upon. Care Teams Lacquer Spray Booth Operator Relationship Specialty Start Date End Date Nancy Ryan, [address] [place] [address] PCP - General Internal Medicine 09/11/18 documented as of this encounter
--- OUTSIDE RECORDS SUMMARY | 2023-11-13 21:43 | External Medical Summary | Summary of Care ---
Author Name Unknown Organization [facility] Address [address] [place] [address] Phone [phone] Care Team Providers Care Loft Rigger Name Role Phone Marlon Ibrahim DO Primary Care Provider Reason for Visit * Reason Onset Date Comments Medication Refill 05/17/2023 Encounter Details Date Type Department Care Team Description 05/17/2023 Refill Family Medicine [address] [place] [id number] Marlon Ibrahim DO [address] [place] [address] [place] [address] Acute gout of right wrist, unspecified cause; Type 2 diabetes mellitus with diabetic neuropathy, with long-term current use of insulin ([facility]) Allergies No known active allergiesdocumented as of this encounter (statuses as of 05/17/2023) Medications Medication Sig Dispensed Refills Start Date End Date Status MULTIPLE VITAMIN PO TABS 1 TABLET DAILY 0 1 Active OMEGA-3 FISH OIL 1000 MG PO CAPS Take one capsule by mouth daily 0 1 Active VITAMIN B-12 1000 MCG PO TABSIndications:Vi tamin B12 deficiency 1 TABLET DAILY 90 Tab 1 4 Active Blood Glucose Monitoring Suppl (ONETOUCH ULTRA [...] evening meals. 180 Tablet 3 3 Active metFORMIN HCl 500 MG Oral Tablet (Glucophage)Indica tions:Type 2 diabetes mellitus with diabetic neuropathy, with long-term current use of insulin (HCC) Take by mouth 1 Tablet 2 times a day with morning and evening meals . 180 Tablet 3 2 05/17/20 23 Discontinu ed(Refill) Allopurinol 100 MG Oral Tablet (Zyloprim)Indicati ons:Acute gout of right wrist, unspecified cause Take by mouth 1 Tablet in the morning. Take 1 tablet by mouth in the morning in addition to 300 mg tablet for a total dose of 400 mg.. 90 Tablet 3 2 05/17/20 Discontinu ed(Refill) Hospital, Clinic, or Other Facility [...] as of this encounter (statuses as of 05/17/2023) Active Problems Problem Noted Date Anemia due [...] on CT scan at [facility] 05/2019 Mild nonproliferative diabet ic retinopathy of [...] Diabetes Taxonomy. 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 AHP Gout of wrist documented as of this encounter (statuses as of 05/17/2023) Resolved Problems Problem Noted Date Resolved Date [...] as of this encounter (statuses as of 05/17/2023) Immunizations Name Administration Dates Next Due COVID-19 mRNA, LNP-s, No Pre serve, 2-Dose Series (Pfizer) 06/20/2021,10/22/2020,09/26/2020 COVID-19, LNP-s, No Preserve , Jamie-sucrose, Ages 12+ (Pfizer) 03/13/2022 Covid-19, Mrna, Lnp-s, Pf, B ivalent, 30 Mcg, IM, 12 yrs and above (Pfizer) 09/20/2022 Pneumococcal Conjugate Vacci ne, 20-valent (Hgveqdw15) 03/14/2022 Pneumococcal Polysaccharide PPV23 (Pneumovax) 03/19/2006 SEASONAL [...] Telephone Encounter - Marlon Ibrahim DO - 05/17/2023 1:44 PM EDTSigned Prescriptions: Disp Refills Allopurinol 100 MG Oral Tablet (Zyloprim) 90 Tab*3 Sig: Take 1 Tablet by mouth in the morning. Take 1 tablet by mouth in the morning in addition to 300 mg tablet for a total dose of 400 mg.. Authorizing Provider: MARLON IBRAHIM metFORMIN HCl 500 MG Oral Tablet (Glucopha*180 Ta*3 Sig: Take 1 Tablet by mouth 2 times a day with morning and evening meals. Authorizing Provider: MARLON IBRAHIM * Telephone Encounter - Christiana Friedman CMA - 05/17/2023 1:19 PM EDTPending Prescriptions: Disp Refills Allopurinol 100 MG Oral Tablet (Zyloprim) 90 Tab*3 Sig: Take 1 Tablet by mouth in the morning. Take 1 tablet by mouth in the morning in addition to 300 mg tablet for a total dose of 400 mg.. metFORMIN HCl 500 MG Oral Tablet (Glucopha*180 Ta*3 Sig: Take 1 Tablet by mouth 2 times a day with morning and evening meals . * Telephone Encounter - Anayeli Reyna - 05/17/2023 9:11 AM EDT Did you pend patient's preferred pharmacy and medication before forwarding?yes Pharmacy: [id number] [address] [facility] Pending Prescriptions: Disp Refills Allopurinol 100 MG Oral Tablet (Zyloprim) 90 Tab*3 Sig: Take 1 Tablet by mouth in the morning. Take 1 tablet by mouth in the morning in addition to 300 mg tablet for a total dose of 400 mg.. metFORMIN HCl 500 MG Oral Tablet (Glucoph*180 Ta*3 Sig: Take 1 Tablet by mouth 2 times a day with morning and evening meals. Last Visit: 03/19/2023 (in office), Visit date not found (telemedicine) Next Visit: 09/20/2023 If no future appointments scheduled, and last appointment is greater than a year ago, please schedule patient for a follow-up appointment Last date the medication was ordered: 05/04/2022 Is this request for a controlled substance?No Urine Drug Screen:No results found. However, due to the size of the patient record, not all encounters were searched. Please check Results Review for a complete set of results. Patient Phone Numbers Labs: Lab Results Component Value Date/Time CREAT 1.6 (H) 02/19/2023 10:35 AM CREAT 1.3 (H) 09/05/2020 10:48 AM POTASSIUM 5.1 02/19/2023 10:35 AM POTASSIUM 5.2 (H) 09/05/2020 10:48 AM TSH 3.28 03/19/2023 10:09 AM TSH 2.15 08/09/2020 01:46 PM LDLCALC UNINTERPRETABLE RESULT 08/13/2018 02:38 PM LDLDIRECT 52 02/10/2023 05:25 AM LDLDIRECT 63 08/09/2020 01:46 PM LDLDIRECT 113 (H) 06/10/2009 07:22 AM ALT 28 02/19/2023 10:35 AM ALT 27 08/09/2020 01:46 PM HGBA1C 6.5 (H) 03/19/2023 10:09 AM HGBA1C 7.5 (H) 08/02/2020 09:46 AM documented in this encounter Plan of Treatment Upcoming Encounters Date Type Specialty Care Team Description 05/20/2023 Laboratory Laboratory [address] [place] [address] 05/21/2023 Immunization/Injection Hematology Oncolog y Nurse, Med [address] [facility] [place] [address] 06/03/[address] [place] [address] 06/04/2023 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 Pharmacy [address] [place] [address] 06/04/2023 Immunization/Injection Hematology Oncolog y Nurse, Med [address] [facility] [place] [address] 06/13/2023 Office Visit Ophthalmology Mika Diaz DO [address] [place] [address] 06/18/[address] [place] [address] 06/25/2023 Office Visit Hematology Oncology Fly Velazquez MD [address] [place] [address] 09/16/2023 Office Visit Nephrology Alejandrina Sims MD [address] [place] [address] 09/20/2023 Office Visit Family Medicine Marlon Ibrahim[address] [place] [address] 10/01/2023 Office Visit Cardiology Prabahkar Henning PA-C [address] [place] [address] 10/23/2023 Office Visit Sleep Disorders Dorothy Toscano CRNP [address] [place] [address] Scheduled Procedures Name Priority Associated Diagnoses Date/Ti [...] 08/10/2019, Additional history exists GFR 08/22/2023 02/19/2023, 07/0 12/2022, 02/10/2023, Additional history exists CKD PHOS USE SMARTSET 35632 09/18/2023 02/0 02/2023, 08/29/2021, 08/02/2020, Additional history exists HbA1c 09/19/2023 03/19/2023, 02/0 02/2023, 05/28/2022, Additional history exists Albumin/Creatinine Ratio 02/20/2024 023, 03/14/2022, 05/19/2021, Additional history exists CKD HGB USE SMARTSET 17186 05/06/202405/06, 05/06/2023, 04/22/2023, Additional history exists COLONOSCOPY-EVERY [...] this encounter Medical Devices Implanted Type Area Camp Tender Device Identifier Shelf Expiration Date Model / Serial / Lot Envista Hydrophobic Acrylic Intraocular Lens Implanted:Qty: 1 on 12/25/2016 by Raul Neely MD at OR [facility] Right: Eye [employer] 11/09/2018 [id number] / [id number] / [id number] Envista Mx60 +10.0 D Implanted:Qty: 1 on 01/29/2017 by Raul Neely MD at OR [facility] Left: Eye 11/09/2018 [id number] / [id number] / [id number] documented as of this encounter Visit Diagnoses Diagnosis Acute gout of right wrist, unspecified cause Type 2 diabetes mellitus with diabetic neuropathy, with long-term current use of insulin (HCC) documented in this encounter Advance Directives [...] and were consensually agreed upon. Care Teams Loft Rigger Relationship Specialty Start Date End Date Ibrahim, Marlon Muro[address] [place] [address] PCP - General Internal Medicine 09/11/18 documented as of this encounter
--- OUTSIDE RECORDS SUMMARY | 2023-11-13 21:43 | External Medical Summary ---
Author Name Unknown Address Unknown Organization K01:[facility] - [facility] [address] [facility] [address] Laboratory Report Ordering Provider Test Date Status JANE WOODRUFF 05/20/2023 08:38:58 Final Observation Date Value Abnormality Reference (Units ) Status WBC, Total 05/20/2023 08:38:58 7.21 4.00-10.80 (K/uL) Final RBC 05/20/2023 08:38:58 3.13 4.50-5.25 (M/uL) Final Hemoglobin 05/20/2023 08:38:58 9.1 Below low normal 14.0-16.8 (g/dL) Final HCT 05/20/2023 08:38:58 29.3 Below low normal 40.0-48.4 (%) Final MCV 05/20/2023 08:38:58 93.6 82.0-99.5 (fL) Final MCH 05/20/2023 08:38:58 29.1 27.0-34.0 (pg) Final MCHC 05/20/2023 08:38:58 31.1 32.0-36.0 (g/dL) Final RDW 05/20/2023 08:38:58 18.5 11.5-15.5 (%) Final Platelets 05/20/2023 08:38:58 216 140-400 (K/uL) Final MPV 05/20/2023 08:38:58 10.4 6.6-11.1 (fL) Final Nucleated erythrocytes/100 leukocytes [Ratio] in Blood by Automated count 05/20/2023 08:38:58 0 <=0 (/100 WBCs) Final Performing Location [facility] - [address] [facility] [address]
[2023-11-13] MEDS: PIPERACILLIN/TAZOBACTAM 4.5 GM in DEXTROSE 5% MINI-B 100 ML IV SCH (23:06)
[2023-11-14] MEDS: ACETAMINOPHEN 500 MG TAB PO STA (00:31)
[2023-11-14 01:54] LABS: A calco-baum cmplx NotReported Not Detected (NotDetected); Bact fragilis Not Reported Not Detected (NotDetected); Blood Culture Id Panel See PCR Comment (NotDetected); C auris Not Reported Not Detected (NotDetected); CTX-M Resistant Gene Not Detected (NotDetected); Calbicans Not Reported Not Detected (NotDetected); Candida glabrata Not Reported Not Detected (NotDetected); Candida krusei Not Reported Not Detected (NotDetected); Cneoformans/gatti Not Reported Not Detected (NotDetected); Cparapsilosis Not Reported Not Detected (NotDetected); E cloacae compx Not Reported Not Detected (NotDetected); Efaecalis Not Reported Not Detected (NotDetected); Efaecium Not Reported Not Detected (NotDetected); Enterobacterales DETECTED (NotDetected); Enterobacterales Not Reported DETECTED (NotDetected); Escherichia coli Not Reported DETECTED (NotDetected); H influenzae Not Reported Not Detected (NotDetected); IMP Resistant Gene Not Detected (NotDetected); K aerogenes Not Reported Not Detected (NotDetected); KPC Resistant Gene Not Detected (NotDetected); Koxytoca Not Reported Not Detected (NotDetected); Kpneumoniae grp Not Reported Not Detected (NotDetected); Lmonocyt Not Reported Not Detected (NotDetected); N meningitidis Not Reported Not Detected (NotDetected); NDM Resistant Gene Not Detected (NotDetected); OXA 48 Like Resistant Gene Not Detected (NotDetected); P aeruginosa Not Reported Not Detected (NotDetected); Proteus spp Not Reported Not Detected (NotDetected); Salmonella spp Not Reported Not Detected (NotDetected); Smarcescens Not Reported Not Detected (NotDetected); Staph lugdunensis Not Reported Not Detected (NotDetected); Staph spp. Not Reported Not Detected (NotDetected); Staphaureus Not Reported Not Detected (NotDetected); Staphepi Not Reported Not Detected (NotDetected); Stenmaltophilia Not Reported Not Detected (NotDetected); Strep agal(GrpB) Not Reported Not Detected (NotDetected); Strep pneum Not Reported Not Detected (NotDetected); Strep pyog (GrpA) Not Reported Not Detected (NotDetected); Strep spp Not Reported Not Detected (NotDetected); VIM Resistant Gene Not Detected (NotDetected); mcr-1 Colistin Resistant Gene Not Detected (NotDetected)
[2023-11-14 04:01] LABS: Basophils # (auto) 0.02 K/uL (0.00-0.20); Basophils % (auto) 0.3 %; Eosinophils # (auto) 0.06 K/uL (0.00-0.50); Hematocrit (blood only) 22.3 % (42.0-52.0); Hemoglobin 7.5 g/dl (14.0-18.0); Immature Granulocytes # (auto) 0.01 K/uL (0.01-0.20); Immature Granulocytes % (auto) 0.2 %; Lymphocytes # (auto) 0.65 K/uL (1.20-3.40); Lymphocytes % (auto) 10.9 %; Mean Corpuscular Hemoglobin 31.3 pg (25.0-34.0); Mean Corpuscular Hgb Conc 33.6 g/dL (32.0-36.0); Mean Corpuscular Volume 92.9 fL (80.0-100.0); Mean Platelet Volume 9.3 fL (9.4-12.4); Monocytes # (auto) 0.58 K/uL (0.11-0.59); Monocytes % (auto) 9.7 %; Neutrophils # (auto) 4.66 K/uL (1.40-6.50); Neutrophils % (auto) 77.9 %; Platelet Count 113 K/uL (130-400); RDW Coefficient of Variation 18.5 % (11.5-14.5); RDW Standard Deviation 63.1 fL (36.4-46.3); White Blood Count 5.98 K/ul (4.8-10.8)
[2023-11-14 04:15] LABS: Albumin Globulin Ratio 0.8 (0.9-2); Albumin Level 2.7 gm/dl (3.4-5.0); BUN Creatinine Ratio 25.2 (10-20); Bilirubin,Total 1.3 mg/dl (0.2-1.0); Est GFR (African American) 29.3 ml/min; Est GFR (Non-African American) 25.3 ml/min; Globulin 3.4 gm/dl (2.5-4.0); Magnesium 1.4 mg/dl (1.7-2.4); Phosphorus 2.8 mg/dl (2.5-4.9); Potassium 3.6 mmol/L (3.5-5.1); Total Protein 6.1 gm/dl (6.0-8.3)
[2023-11-14 04:30] LABS: Polychromasia 1+
[2023-11-14] MEDS: allopurinoL 300 MG TAB PO SCH (08:06)
[2023-11-14] MEDS: allopurinoL 100 MG TAB PO SCH (08:06)
[2023-11-14] MEDS: CYANOCOBALAMIN (B-12) 500 MCG TABLET PO SCH (08:48)
[2023-11-14] MEDS: MAGNESIUM SULFATE / D5W 1 GM/100 ML BAG IV ONE (08:52)
[2023-11-14] MEDS ORDERED: LOSARTAN POTASSIUM 25 MG TAB PO SCH (09:00)
[2023-11-14] MEDS: DAPTOmycin 525 MG in SYRINGE 0 ML IV SCH (10:10)
--- NOTE | 2023-11-14 11:10 | Gastrointestinal Consultation ---
Date of Consultation November 14, 2023 Assessment & Plan (1) Anemia: (2) History of duodenal ulcer: Plan Patient here at hospital after suffering a fall. He reports a dark emesis episode yesterday but none since. He does have a history of duodenal ulcers. he follows with [facility] primarily and was to have a repeat scope done in the coming weeks. Discussed with Dr. Ramirez. Given his significant anemia, will plan to have EGD done at this time. Patient was agreeable with this however despite being written for NPO, he tells me he had 6 glasses of water this morning. Thus, we will have to delay this scope until tomorrow. - continue with protonix 40mg IV BID. - follow hgb/hct, transfuse as needed. - Keep NPO at this time. discussed with nursing. - will plan for EGD tomorrow. Supervising Physician Co-Signing Physician Notes Agree with HODAN Burkett as above Abd: Soft, NT, ND, +BS Continue current therapy and supportive care Patient reports he has not been taking PPI therapy Patient had 6 glasses of water today, and therefore could not undergo EGD Proceed with EGD tomorrow History of Present Illness Reason for Consultation: ?GIB Requesting Physician: Alessandra Gibbs PA-C Attending Physician: Ishaan Briones MD History of Present Illness Patient is a 68 year old male presents emergency department due to a fall he had at home 2 evenings ago. At that time, the patient was at home and fell in the middle of the night where he laid until his found him the following morning and called 911. He denies any recent change in medications or diet. He states he did not have much to eat or drink the day prior and thinks that this could have contributed. Patient does have ongoing issues with bilateral lower extremity wounds as well but tells me he has not been following with anyone on this. He tells me that on day of admission he did have an episode of vomiting that he tells me "looked like beef stew" and tells me this looked dark. He has had no further emesis since that time. He tells me his bowels are typically once or twice a daily. he denies any blood in the stools or melena at this time. He does not use nsaids. hgb on admission was 6.4, after 1 unit he went to 7.9. Today he is 7.5. He tells me that he was admitted at [facility] earlier this year for cellulitis and had dark stools at that time. He reports undergoing an EGD in September 2023 showing duodenal ulcers. he tells me he follows his GI care with [facility]. he tells me he was to have a follow up EGD in a few weeks with their group. Patient denies any current issues with nausea, dysphagia, heartburn, abdominal pain, unintentional weight loss, change in bowels, melena, or bright red blood per rectum. Per History in chart: 09/26/23: EGD: gastritis, non-obstructing non-bleeding duodenal ulcers with no stigmata of bleeding 02/09/22: colonoscopy: 6 mm polyp sigmoid colon, non-bleeding internal hemorrhoids Allergies Allergy/AdvReac Type Severity Reaction Status Date / Time No Known Allergies Allergy Verified 11/13/23 12:46 Home Medications Medication Instructions Recorded Confirmed Type aspirin 81 mg tablet,delayed 81 mg PO QAM 04/08/18 11/13/23 History release (Adult Aspirin Regimen) atorvastatin 20 mg tablet (Lipitor) 20 mg PO QAM 04/08/18 11/13/23 History cyanocobalamin (vitamin B-12) 1,000 mcg PO QAM 04/08/18 11/13/23 History 1,000 mcg tablet (Vitamin B-12) omega 7-ivk-ycr-fish oil 100 1 cap PO QAM 04/08/18 11/13/23 History mg-160 mg-1,000 mg capsule dorzolamide 22.3 mg-timolol 6.8 1 drp OPB BID 06/09/19 11/13/23 History mg/mL eye drops multivitamin 1 tab PO QAM 06/09/19 11/13/23 History ascorbic acid (vitamin C) 1,000 mg 1 g PO QAM 06/09/21 11/13/23 History tablet carvedilol 6.25 mg tablet 6.25 mg PO BID 06/09/21 11/13/23 History insulin glargine 100 unit/mL (3 20 unit subcut QAM 06/09/21 11/13/23 History mL) subcutaneous pen (Basaglar KwikPen U-100 Insulin) metformin 500 mg tablet 500 mg PO BID 06/09/21 11/13/23 History allopurinol 300 mg tablet See Rx Instructions .Route .COMPLEX 06/28/21 11/13/23 History allopurinol 100 mg tablet See Rx Instructions .Route .COMPLEX 01/29/23 11/13/23 History ammonium lactate 12 % topical cream 1 applic topical UD PRN Skin 01/29/23 11/13/23 History Irritation netarsudil 0.02 % eye drops 1 drp OPL HS 01/29/23 11/13/23 History (Rhopressa) semaglutide 2 mg/dose (8 mg/3 mL) 2 mg subcut WK 01/29/23 11/13/23 History subcutaneous pen injector (Ozempic) epoetin judith 20,000 unit/2 mL 20,000 unit subcut UD 11/13/23 11/13/23 History injection solution (Procrit) losartan 25 mg tablet 25 mg PO QAM 11/13/23 11/13/23 History torsemide 20 mg tablet 20 mg PO QAM 11/13/23 11/13/23 History Patient History Medical History (Updated 11/14/23 @ 11:13 by Marcio Almodovar PA-C) History of colon polyps BENIGN Carpal tunnel syndrome of right wrist Benign cyst of kidney FATTY TISSUE GERD (gastroesophageal reflux disease) Hx of gout Diabetes mellitus, type II Vitamin B12 deficiency PT NOT SURE Anemia Chronic anticoagulation Diabetic neuropathy Mild nonproliferative diabetic retinopathy CKD (chronic kidney disease) stage 3, GFR 30-59 ml/min RLS (restless legs syndrome) Sleep apnea CPAP History of DVT (deep vein thrombosis) LEFT LEG IN 1980. OCCURED AFTER INJURY. >REASON FOR COUMADIN Hypertension Hyperlipidemia Chronic venous insufficiency UNNA BOOTS B/L - CHANGED ONCE A WEEK SOME OPEN SORES ON LEGS/WOUND CLINIC LONG EDDY Surgical History History of endoscopy Family history of reaction to anesthesia MOTHER>SLOW TO WAKE UP [place] teeth removed 1 History of repair of retinal tear by laser photocoagulation History of cataract surgery RT/LEFT History of amputation of toe SMALL RT TOE History of colonoscopy Family History Mother Family history of diabetes mellitus Father Family history of diabetes mellitus Other Diabetes Heart disease Hypertension Social History Smoking Status: Never smoker Second Hand Exposure: No; Do You Dip or Chew Tobacco: No; Hx Alcohol Use: Yes Alcohol type: beer Hx Substance Use: No Preferred Language: Tajik Communication Ability: Effective Isotope Technician Required: No Beliefs That Will Affect Care: None Current Living Situation: Spouse Feels Safe at Home: Yes Safety Concerns: Feels Safe At This Time Assistive Devices: CPAP and Glasses Review of Systems Review of Systems: All systems reviewed & are unremarkable except as noted in HPI & below Physical Exam Constitutional: WD/WN, vitals as above Respiratory: normal respiratory effort, lungs clear to auscultation Cardiovascular: RRR, no murmur, no edema Gastrointestinal (Abdomen): normal bowel sounds, soft, nontender, no hepatosplenomegaly Psychiatric: Orientation: alert and oriented x 3 Affect: euthymic affect Results & Data Vital Signs (Past 12 Hours) Vital Signs Temp Pulse Pulse Resp BP BP Pulse Ox 11/14/23 07:22 92 H 11/14/23 04:30 99.9 F H 98 H 25 H 131/65 97 11/14/23 01:38 99.9 F H 11/14/23 01:00 97 H 25 H 110/72 97 11/14/23 00:11 103.3 F H 97 H 25 H 109/54 L 97 11/13/23 23:59 98 H 24 96 O2 Del Method 11/14/23 07:22 11/14/23 04:30 11/14/23 01:38 11/14/23 01:00 Room Air 11/14/23 00:11 Room Air 11/13/23 23:59 Coding Level of Care Code 70333 INT INP/OBS CARE 3/75MIN Diagnoses Anemia D64.9 History of duodenal ulcer Z87.19
[2023-11-14] MEDS ORDERED: VANCOMYCIN HCL 1,000 MG in SODIUM CHLORIDE 0.9% 250 ML IV SCH (12:00)
[2023-11-14 13:32] LABS: A calco-baum cmplx NotReported Not Detected (NotDetected); Bact fragilis Not Reported Not Detected (NotDetected); Blood Culture Id Panel See PCR Comment (NotDetected); C auris Not Reported Not Detected (NotDetected); Calbicans Not Reported Not Detected (NotDetected); Candida glabrata Not Reported Not Detected (NotDetected); Candida krusei Not Reported Not Detected (NotDetected); Cneoformans/gatti Not Reported Not Detected (NotDetected); Cparapsilosis Not Reported Not Detected (NotDetected); E cloacae compx Not Reported Not Detected (NotDetected); Efaecalis Not Reported Not Detected (NotDetected); Efaecium Not Reported Not Detected (NotDetected); Enterobacterales Not Reported Not Detected (NotDetected); Escherichia coli Not Reported Not Detected (NotDetected); H influenzae Not Reported Not Detected (NotDetected); K aerogenes Not Reported Not Detected (NotDetected); Koxytoca Not Reported Not Detected (NotDetected); Kpneumoniae grp Not Reported Not Detected (NotDetected); Lmonocyt Not Reported Not Detected (NotDetected); N meningitidis Not Reported Not Detected (NotDetected); P aeruginosa Not Reported Not Detected (NotDetected); Proteus spp Not Reported Not Detected (NotDetected); Salmonella spp Not Reported Not Detected (NotDetected); Smarcescens Not Reported Not Detected (NotDetected); Staph lugdunensis Not Reported Not Detected (NotDetected); Staph spp. Not Reported DETECTED (NotDetected); Staphaureus Not Reported Not Detected (NotDetected); Staphepi Not Reported Not Detected (NotDetected); Stenmaltophilia Not Reported Not Detected (NotDetected); Strep agal(GrpB) Not Reported Not Detected (NotDetected); Strep pneum Not Reported Not Detected (NotDetected); Strep pyog (GrpA) Not Reported Not Detected (NotDetected); Strep spp Not Reported Not Detected (NotDetected)
[2023-11-14 13:38] LABS: Staphylococcus spp. DETECTED (NotDetected)
--- NOTE | 2023-11-14 15:35 | Infectious Disease Consult ---
Date of Service November 14, 2023 Telehealth Information I performed this visit using a real-time telehealth connection between my location and the patients location ([facility]). After connecting through interactive tele-video, patient was identified by name and date of and/or wristband check.Patient (or authorized healthcare sales representative girls' apparel) was informed that this was a telemedicine visit and it was being conducted confidentially over secure lines. My office door was closed and no one else was present in the room with me.Patient (or authorized healthcare sales representative girls' apparel) provided consent to proceed with the visit, expressed an understanding of privacy and security of the telemedicine visit, and gave permission to have a hospital sales representative girls' apparel in the room in order to assist with the visit and to conduct portions of the visit, as needed. I informed the patient (or authorized healthcare sales representative girls' apparel) that I reviewed their record and presented the opportunity for them to ask any questions regarding the visit today. The patient agreed to participate. Assessment & Plan (1) Compression fracture of lumbar vertebra: (2) Chronic ulcer of lower extremity: (3) Venous stasis ulcers: (4) Venous stasis ulcers of both lower extremities: (5) Bacteremia due to Gram-negative bacteria: Plan Patient with symptoms of a UTI who p/w after a fall and was found to have gram negative bacteremia and is currently on zosyn and daptomycin .Recommend keeping the zosyn for his gram negative bacteremia which was likely secondary to a UTI but he is also growing a gram positive cocci in clusters which likely represents contamination but would not stop daptomycin until I have more information on this GPC .Obtain a TTE and repeat blood cultures to document clearance .If the gram positive cocci in clusters turns out to be staph aureus I would continue the daptomycin but if it is a coagulase negative staph I would recommend discontinuing daptomycin .Can tailor his zosyn based on susceptibilities of his gram negative bacteremia .If he is experiencing back pain consider further imaging as his CT did reveal some compression fractures .Thank you for allowing us to participate in the care of this patient ID will continue to follow Addendum GNB growing is E Coli sensitive to ceftriaxone and the GPC was a coagulase negative staph and likely a contaminant would recommend treating with ceftriaxone for 7-10 days History of Present Illness History of Present Illness 68 year old male with PMH HTN, dyslipidemia, DM II, CKD III, gout, SPENCER, anemia chronic disease, chronic wounds presented to ER after a fall. Patient states he tried to walk to the bathroom but when he tried to get up he felt weak and fell on his way to bathroom. Denies hitting head but had some pain to right hip. At 8:30am in the morning his found him on floor. Patient states has been having chills for past couple of days and had observed burning on urination.He has chronic wounds to BLE and was previously followed by wound clinic, however now his helps to apply dressings. His blood cultures are growing gram positive cocci in clusters and GNB ,urine culture is pending and he is on zosyn and daptomycin Allergies Allergy/AdvReac Type Severity Reaction Status Date / Time No Known Allergies Allergy Verified 11/13/23 12:46 Home Medications Medication Instructions Recorded Confirmed Type aspirin 81 mg tablet,delayed 81 mg PO QAM 04/08/18 11/13/23 History release (Adult Aspirin Regimen) atorvastatin 20 mg tablet (Lipitor) 20 mg PO QAM 04/08/18 11/13/23 History cyanocobalamin (vitamin B-12) 1,000 mcg PO QAM 04/08/18 11/13/23 History 1,000 mcg tablet (Vitamin B-12) omega 8-woq-xsv-fish oil 100 1 cap PO QAM 04/08/18 11/13/23 History mg-160 mg-1,000 mg capsule dorzolamide 22.3 mg-timolol 6.8 1 drp OPB BID 06/09/19 11/13/23 History mg/mL eye drops multivitamin 1 tab PO QAM 06/09/19 11/13/23 History ascorbic acid (vitamin C) 1,000 mg 1 g PO QAM 06/09/21 11/13/23 History tablet carvedilol 6.25 mg tablet 6.25 mg PO BID 06/09/21 11/13/23 History insulin glargine 100 unit/mL (3 20 unit subcut QAM 06/09/21 11/13/23 History mL) subcutaneous pen (Basaglar KwikPen U-100 Insulin) metformin 500 mg tablet 500 mg PO BID 06/09/21 11/13/23 History allopurinol 300 mg tablet See Rx Instructions .Route .COMPLEX 06/28/21 11/13/23 History allopurinol 100 mg tablet See Rx Instructions .Route .COMPLEX 01/29/23 11/13/23 History ammonium lactate 12 % topical cream 1 applic topical UD PRN Skin 01/29/23 11/13/23 History Irritation netarsudil 0.02 % eye drops 1 drp OPL HS 01/29/23 11/13/23 History (Rhopressa) semaglutide 2 mg/dose (8 mg/3 mL) 2 mg subcut WK 01/29/23 11/13/23 History subcutaneous pen injector (Ozempic) epoetin judith 20,000 unit/2 mL 20,000 unit subcut UD 11/13/23 11/13/23 History injection solution (Procrit) losartan 25 mg tablet 25 mg PO QAM 11/13/23 11/13/23 History torsemide 20 mg tablet 20 mg PO QAM 11/13/23 11/13/23 History Patient History Medical History (Updated 11/15/23 @ 10:08 by Jorge Luis Key MD) ZAHRAA (acute kidney injury) History of colon polyps BENIGN Carpal tunnel syndrome of right wrist Benign cyst of kidney FATTY TISSUE GERD (gastroesophageal reflux disease) Hx of gout Diabetes mellitus, type II Vitamin B12 deficiency PT NOT SURE Anemia Chronic anticoagulation Diabetic neuropathy Mild nonproliferative diabetic retinopathy CKD (chronic kidney disease) stage 3, GFR 30-59 ml/min RLS (restless legs syndrome) Sleep apnea CPAP History of DVT (deep vein thrombosis) LEFT LEG IN 1980. OCCURED AFTER INJURY. >REASON FOR COUMADIN Hypertension Hyperlipidemia Chronic venous insufficiency UNNA BOOTS B/L - CHANGED ONCE A WEEK SOME OPEN SORES ON LEGS/WOUND CLINIC [place] Surgical History History of endoscopy Family history of reaction to anesthesia MOTHER>SLOW TO WAKE UP [place] teeth removed 1 History of repair of retinal tear by laser photocoagulation History of cataract surgery RT/LEFT History of amputation of toe SMALL RT TOE History of colonoscopy Family History Mother Family history of diabetes mellitus Father Family history of diabetes mellitus Other Diabetes Heart disease Hypertension Social History Smoking Status: Never smoker Second Hand Exposure: No; Do You Dip or Chew Tobacco: No; Hx Alcohol Use: Yes Alcohol type: beer Hx Substance Use: No Preferred Language: Iranian Communication Ability: Effective Farm Mortgage Agent Required: No Beliefs That Will Affect Care: None Current Living Situation: Spouse Feels Safe at Home: Yes Safety Concerns: Feels Safe At This Time Assistive Devices: CPAP and Glasses Review of Systems Normal respiratory effort no abdominal pain denies diarrhea Physical Exam Patient awake alert orientated head normocephalic and normal respiratory effort .B/L le chronic skin changes Results & Data Vital Signs (Past 12 Hours) Vital Signs Temp Pulse Pulse Resp BP BP Pulse Ox 11/14/23 11:43 37.3 C 87 18 124/70 96 11/14/23 07:22 92 H 11/14/23 04:30 37.7 C H 98 H 25 H 131/65 97 O2 Del Method 11/14/23 11:43 Room Air 11/14/23 07:22 11/14/23 04:30 Laboratory Results WBC [id number] Diagnostic Findings MPRESSION: 1. There is asymmetric right-sided perinephric stranding. Correlate with clinical findings and urinalysis. 2. There is an acute to subacute appearing superior plate compression deformity of L2 with mild loss of height. Correlate for point tenderness. 3. There are additional minimal age indeterminate superior compression deformities of T10, T11, and L1. These are new from 01/29/2023. Correlate clinically. 4. Nephrolithiasis. 5. Bladder distention. 6. Cholelithiasis. 7. Prominent iliac chain lymph nodes are similar to previous and likely reactive. 8. Hepatosplenomegaly. Medications Administered zosyn and daptomycin (3) Venous stasis ulcers Laterality: right Non-pressure ulcer stage: unspecified non-pressure ulcer stage Varicose vein presence: unspecified whether present Venous stasis ulcer site: other part of lower leg Qualified Code(s): I83.018 - Varicose veins of right lower extremity with ulcer other part of lower leg; L97.819 - Non-pressure chronic ulcer of other part of right lower leg with unspecified severity
--- NOTE | 2023-11-14 16:53 | Hospitalist Progress Note ---
Date of Service November 14, 2023 Assessment & Plan (1) Sepsis: (2) Cellulitis: (3) Acute on chronic anemia: (4) Fall: (5) Generalized weakness: (6) Acute kidney injury superimposed on chronic kidney disease: (7) Hypomagnesemia: (8) Venous stasis ulcers: (9) Diabetes mellitus, type II: (10) Hypertension: (11) Hyperlipidemia: (12) SPENCER on CPAP: Plan: Sepsis secondary to bacteremia, staph Bilateral lower extremity cellulitis, infected chronic wounds Possible UTI, pyelonephritis Suspect bilateral lower extremity cellulitis/wound to be the source of infection. Will obtain CT of the right leg to rule out underlying abscess. Started on empiric Zosyn and Vanco, follow-up on blood culture Wound care consult CT abdomen pelvis: 1. There is asymmetric right-sided perinephric stranding. Correlate with clinical findings and urinalysis. 2. There is an acute to subacute appearing superior plate compression deformity of L2 with mild loss of height. Correlate for point tenderness. 3. There are additional minimal age indeterminate superior compression deformities of T10, T11, and L1. These are new from 01/29/2023. Correlate clinically. 4. Nephrolithiasis. 5. Bladder distention. 6. Cholelithiasis. 7. Prominent iliac chain lymph nodes are similar to previous and likely reactive. 8. Hepatosplenomegaly. 9. Additional findings as above. CT lower extremity: 1. No acute bony abnormality is seen involving the right tibia or fibula. 2. Diffuse soft tissue edema and subcutaneous fluid is seen throughout the right leg. Correlate clinically. 3. There is no organized fluid collection seen on this unenhanced examination. 4. Extensive soft tissue calcification is again seen in the right leg. 4/4 Hemodynamically stable Blood cultures: Possible staph Repeat blood cultures: Pending Urine culture: Pending Daptomycin plus Zosyn ID consult Wound care consult Possible upper GI bleed Acute blood loss anemia History of duodenal ulcer Underwent endoscopy in September 2023; found to have nonbleeding duodenal ulcer. He was recommended Prilosec which he is not taking. Also, recommended to be off aspirin. He is currently taking baby aspirin for primary prevention. Had CBC done 2 days ago; hemoglobin was around 9.4 Denies melena, hematemesis. Stop aspirin. IV Protonix twice daily Transfuse 1 unit of blood CBC tomorrow a.m. Given history of duodenal ulcer, presence of aspirin; will appreciate GIs input for possible endoscopy tomorrow AM. N.p.o. from midnight. 11/13 1 unit packed RBCs ordered Hemoglobin improved from 6.4, now 7.5 For EGD tomorrow Protonix 40 mg IV twice daily Acute kidney injury Suspect secondary to sepsis/GI bleed Started on NS at 100 cc/h Renal ultrasound Avoid nephrotoxic agent Hold torsemide, losartan 11/13 CT abdomen pelvis: Kidneys: The unenhanced kidneys are normal in size and without hydronephrosis. There is a 15 mm calculus in the right renal pelvis. A punctate nonobstructing calculus is in the left kidney. No ureteral stone is identified. Bilateral renal cysts measure up to 3.4 cm. There is asymmetric right-sided perinephric stranding. Creatinine 2.0, 2.4, 2.5 Continue gentle IV fluids Monitor closely Chronic conditions; Hyperlipidemiacontinue Lipitor Hypertensioncontinue Coreg, hold losartan Type 2 diabetes mellitushold metformin, on Lantus, NovoLog, pharmacy on consult. Anemia of chronic diseaseon erythropoietin every other week. History of DVTCoumadin was stopped August. History of DVTs in 1979; provoked. Will obtain bilateral LE duplex Full code DVT prophylaxisnone given possible chance of bleed, SCDs contraindicated due to bilateral lower extremity wounds. plan of care discussed with patient and his at the bedside in detail and at length all questions answered they are understanding, agreeable, comfortable with the plan of care (13) Gout: Admission and Anticipated Discharge Date Admission Date: November 13, 2023 Subjective Follow-up for sepsis, bacteremia, lower extremity cellulitis, UTI possible pyelonephritis, acute blood loss anemia, possible upper GI bleed, acute kidney injury, etc. Seen resting in bed, comfortable, not in distress, in good spirits Patient's and niece at the bedside visiting Patient states he feels okay overall Somewhat better than yesterday Still feels very tired No fevers or chills so far, has some lower extremity discomfort No abdominal pain, flank pain, back pain Burns catheter in place, no hematuria noted No abdominal pain No melena hematochezia no chest pain, dyspnea, palpitations, dizziness No other new symptoms Review of Systems Review of Systems: all noted and negative except for above Physical Exam Physical Exam: General- oriented x 3, not in distress, speaks in sentences with no effort or accessory muscle use Eyes- anicteric Neck- no JVD Lungs- clear breath sounds bilaterally, no rales/wheezes Heart- normal rate, regular rhythm; no murmurs Abdomen- normal bowel sounds, nondistended, soft, nontender Extremities- Mild lower extremity edema Positive moderate erythema on the bilateral lower legs Chronic venous stasis discoloration noted Positive dressings in place, no bleeding or discharge Photo shown by patient's at the bedside showing open wounds, with surrounding erythema, no active discharge noted Neuro- alert, oriented x 3; no gross focal neurologic deficits Skin- warm & dry Results & Data Results & Data Vital Signs (Past 12 Hours) Vital Signs Temp Pulse Pulse Resp BP Pulse Ox O2 Del Method 11/14/23 16:05 39.0 C H 89 15 132/69 95 Room Air 11/14/23 11:43 37.3 C 87 18 124/70 96 Room Air 11/14/23 07:22 92 H all noted and reviewed including below (1) Sepsis Acute renal failure type: unspecified Sepsis acute organ dysfunction status: with acute organ dysfunction Sepsis type: sepsis due to unspecified organism Severe sepsis acute organ dysfunction type: acute renal failure Severe sepsis shock status: without septic shock Qualified Code(s): A41.9 - Sepsis, unspecified organism; R65.20 - Severe sepsis without septic shock; N17.9 - Acute kidney failure, unspecified (8) Venous stasis ulcers Laterality: right Non-pressure ulcer stage: unspecified non-pressure ulcer stage Varicose vein presence: unspecified whether present Venous stasis ulcer site: other part of lower leg Qualified Code(s): I83.018 - Varicose veins of right lower extremity with ulcer other part of lower leg; L97.819 - Non-pressure chronic ulcer of other part of right lower leg with unspecified severity (10) Hypertension Hypertension type: essential hypertension Qualified Code(s): I10 - Essential (primary) hypertension
[2023-11-14] MEDS ORDERED: Nursing to Pharmacy Communication SCH (17:15)
[2023-11-14] MEDS: SODIUM CHLORIDE 0.9% 1,000 ML IV SCH (17:51)
[2023-11-14] MEDS: INSULIN ASPART PER UNIT CHARGE SC SCH (18:14)
[2023-11-14] MEDS: oxyCODONE HCL IR 5 MG TAB (IMMEDIATE RELEASE) PO STA (23:20)
[2023-11-15 05:02] LABS: BUN Creatinine Ratio 24.4 (10-20); Calcium 8.5 mg/dl (8.6-10.3); Creatinine Clr Calc Pharmacy 37.9 ml/min; Est GFR (African American) 31.1 ml/min; Est GFR (Non-African American) 26.8 ml/min; Magnesium 1.7 mg/dl (1.7-2.4); Potassium 3.6 mmol/L (3.5-5.1)
[2023-11-15 05:24] LABS: Basophils # (auto) 0.03 K/uL (0.00-0.20); Basophils % (auto) 0.5 %; Eosinophils # (auto) 0.32 K/uL (0.00-0.50); Eosinophils % (auto) 5.5 %; Hematocrit (blood only) 22.9 % (42.0-52.0); Hemoglobin 7.6 g/dl (14.0-18.0); Immature Granulocytes # (auto) 0.02 K/uL (0.01-0.20); Immature Granulocytes % (auto) 0.3 %; Lymphocytes # (auto) 0.51 K/uL (1.20-3.40); Lymphocytes % (auto) 8.8 %; Mean Corpuscular Hemoglobin 30.9 pg (25.0-34.0); Mean Corpuscular Hgb Conc 33.2 g/dL (32.0-36.0); Mean Corpuscular Volume 93.1 fL (80.0-100.0); Mean Platelet Volume 10.2 fL (9.4-12.4); Monocytes # (auto) 0.58 K/uL (0.11-0.59); Neutrophils # (auto) 4.36 K/uL (1.40-6.50); Neutrophils % (auto) 74.9 %; Platelet Count 142 K/uL (130-400); RDW Coefficient of Variation 18.5 % (11.5-14.5); Red Blood Count 2.46 M/uL (4.70-6.10); White Blood Count 5.82 K/ul (4.8-10.8)
[2023-11-15 05:51] LABS: Rouleaux 1+; Tear Drop Cells 1+
[2023-11-15] MEDS: oxyCODONE HCL IR 5 MG TAB (IMMEDIATE RELEASE) PO PRN (06:22)
--- NOTE | 2023-11-15 07:39 | Anesthesiology Consultation ---
Date of Service November 15, 2023 Assessment & Plan Chart Review Chart Review: Acceptable Risk for Surgery, Patient NOT seen in Pre Admission Testing and charge entry clerk initiated Consults Requested none Proposed Anesthesia Anesthesia Type: MAC History Surgery Operation Date: 11/15/23 16:30 Proposed Procedures p Esophagogastroduodenoscopy Dr James Granger Case, DO Height/Weight Height: 6 ft Weight: 106.4 kg Allergies Allergy/AdvReac Type Severity Reaction Status Date / Time No Known Allergies Allergy Verified 11/13/23 12:46 Medications Home Medications Medication Instructions Recorded Confirmed Last Taken aspirin 81 mg tablet,delayed 81 mg PO QAM 04/08/18 11/13/23 11/12/23 release (Adult Aspirin Regimen) atorvastatin 20 mg tablet (Lipitor) 20 mg PO QAM 04/08/18 11/13/23 11/12/23 cyanocobalamin (vitamin B-12) 1,000 mcg PO QAM 04/08/18 11/13/23 11/12/23 1,000 mcg tablet (Vitamin B-12) omega 4-exh-pnu-fish oil 100 1 cap PO QAM 04/08/18 11/13/23 11/12/23 mg-160 mg-1,000 mg capsule dorzolamide 22.3 mg-timolol 6.8 1 drp OPB BID 06/09/19 11/13/23 11/12/23 mg/mL eye drops multivitamin 1 tab PO QAM 06/09/19 11/13/23 11/12/23 ascorbic acid (vitamin C) 1,000 mg 1 g PO QAM 06/09/21 11/13/23 11/12/23 tablet carvedilol 6.25 mg tablet 6.25 mg PO BID 06/09/21 11/13/23 11/12/23 insulin glargine 100 unit/mL (3 20 unit subcut QAM 06/09/21 11/13/23 11/12/23 mL) subcutaneous pen (Basaglar KwikPen U-100 Insulin) metformin 500 mg tablet 500 mg PO BID 06/09/21 11/13/23 11/12/23 allopurinol 300 mg tablet See Rx Instructions .Route .COMPLEX 06/28/21 11/13/23 11/12/23 allopurinol 100 mg tablet See Rx Instructions .Route .COMPLEX 01/29/23 11/13/23 11/12/23 ammonium lactate 12 % topical cream 1 applic topical UD PRN Skin 01/29/23 11/13/23 Unknown Irritation netarsudil 0.02 % eye drops 1 drp OPL HS 01/29/23 11/13/23 11/12/23 (Rhopressa) semaglutide 2 mg/dose (8 mg/3 mL) 2 mg subcut WK 01/29/23 11/13/23 11/09/23 subcutaneous pen injector (Ozempic) epoetin judith 20,000 unit/2 mL 20,000 unit subcut UD 11/13/23 11/13/23 11/12/23 injection solution (Procrit) losartan 25 mg tablet 25 mg PO QAM 11/13/23 11/13/23 11/12/23 torsemide 20 mg tablet 20 mg PO QAM 11/13/23 11/13/23 11/12/23 Active Medications Generic Name Dose Route Start Last Admin Trade Name Freq PRN Reason Stop Dose Admin Acetaminophen 650 mg 11/13/23 15:53 11/15/23 05:42 Acetaminophen 325 Mg Tab PO 12/13/23 15:52 650 mg Q4H PRN Administration Pain or Fever Allopurinol 100 mg 11/14/23 09:00 11/14/23 08:06 Allopurinol 100 Mg Tab PO 12/14/23 08:59 100 mg DAILY JACKSON Administration Allopurinol 300 mg 11/14/23 09:00 11/14/23 08:06 Allopurinol 300 Mg Tab PO 12/14/23 08:59 300 mg DAILY JACKSON Administration Cyanocobalamin 1,000 mcg 11/14/23 09:00 11/14/23 08:48 Cyanocobalamin (B-12) 500 Mcg Tablet PO 12/14/23 08:59 1,000 mcg QAM JACKSON Administration Dorzolamide/Timolol 1 drops 11/13/23 21:00 11/14/23 20:10 Dorzolamide/Timolol 22.3/6.8mg/Ml 10 Ml Btl OPB 12/13/23 20:59 1 drops BID JACKSON Administration Pantoprazole Sodium 40 mg/ 10 mls @ 5 mls/min 11/13/23 21:00 11/14/23 20:09 Syringe IV 12/13/23 20:59 5 mls/min BID JACKSON Administration Piperacillin Sod/Tazobactam 100 mls @ 25 mls/hr 11/13/23 23:00 11/15/23 04:16 Sod 4.5 gm/ Dextrose IV 11/20/23 22:59 Infused Q8H JACKSON Infusion Protocol Daptomycin 525 mg/ Syringe 10.5 mls @ 5.25 mls/min 11/14/23 09:00 11/14/23 10:10 IV 11/21/23 08:59 5.25 mls/min Q24H JACKSON Administration Protocol Sodium Chloride 1,000 mls @ 60 mls/hr 11/14/23 17:30 11/14/23 17:51 Nss IV 12/14/23 17:29 60 mls/hr .[id number] JACKSON Administration Insulin Aspart 0 units 11/14/23 18:00 11/15/23 06:43 Insulin Aspart Per Unit Charge SC 12/13/23 16:29 Not Given Q6 JACKSON Miscellaneous 1 each 11/14/23 00:00 11/15/23 00:17 Netarsudil [Rhopressa] 0.02 % - Order Awaiting Action N/A 12/14/23 00:00 Not Given QS JACKSON Oxycodone HCl 5 mg 11/14/23 22:15 11/15/23 06:22 Oxycodone Hcl Ir 5 Mg Tab (Immediate Release) PO 11/28/23 22:14 5 mg Q4H PRN Administration Pain Past Medical History Medical History History of colon polyps BENIGN Carpal tunnel syndrome of right wrist Benign cyst of kidney FATTY TISSUE GERD (gastroesophageal reflux disease) Hx of gout Diabetes mellitus, type II Vitamin B12 deficiency PT NOT SURE Anemia Chronic anticoagulation Diabetic neuropathy Mild nonproliferative diabetic retinopathy CKD (chronic kidney disease) stage 3, GFR 30-59 ml/min RLS (restless legs syndrome) Sleep apnea CPAP History of DVT (deep vein thrombosis) LEFT LEG IN 1980. OCCURED AFTER INJURY. >REASON FOR COUMADIN Hypertension Hyperlipidemia Chronic venous insufficiency UNNA BOOTS B/L - CHANGED ONCE A WEEK SOME OPEN SORES ON LEGS/WOUND CLINIC [place] Past Family History Family History Mother Family history of diabetes mellitus Father Family history of diabetes mellitus Other Diabetes Heart disease Hypertension Past Surgical History Surgical History History of endoscopy Family history of reaction to anesthesia MOTHER>SLOW TO WAKE UP [place] teeth removed 1 History of repair of retinal tear by laser photocoagulation History of cataract surgery RT/LEFT History of amputation of toe SMALL RT TOE History of colonoscopy Social History Smoking Status: Never smoker Do You Dip or Chew Tobacco: No Hx Alcohol Use: Yes Alcohol type: beer alcohol intake frequency: holidays/special occasions only Hx Substance Use: No substance use type: does not use Physical Exam Vital Signs Last Vital Signs Temp 36.8 C 11/15/23 07:00 Pulse 96 H 11/15/23 07:00 Resp 18 11/15/23 07:00 BP 123/70 11/15/23 07:00 Pulse Ox 96 11/15/23 07:00 O2 Del Method Room Air 11/15/23 07:00 O2 Flow Rate 0 11/13/23 16:00 FiO2 21 11/15/23 03:40 Testing Laboratory Results 11/15/23 04:28 11/15/23 04:28 Urine Color Dark Yellow 11/13/23 17:44 Urine Appearance Turbid (Clear) A 11/13/23 17:44 Urine pH 5.5 (4.5-7.5) 11/13/23 17:44 Ur Specific [place] 1.015 (1.000-1.030) 11/13/23 17:44 Urine Protein 2+ (Negative) H 11/13/23 17:44 Urine Glucose (UA) Negative (Negative) 11/13/23 17:44 Urine Ketones Negative (Negative) 11/13/23 17:44 Urine Nitrite Negative (Negative) 11/13/23 17:44 Ur Leukocyte Esterase 3+ (Negative) H 11/13/23 17:44 Urine WBC (Auto) >30 /hpf (0-5) H 11/13/23 17:44 Urine RBC (Auto) 0-4 /hpf (0-4) 11/13/23 17:44 U Hyaline Cast (Auto) 1-5 /lpf (0-5) 11/13/23 17:44 U Epithel Cells (Auto) 5-10 /lpf (0-5) H 11/13/23 17:44 Urine Bacteria (Auto) 1+ (Negative) H 11/13/23 17:44 Blood Type B Positive 11/13/23 14:09 Antibody Screen NEGATIVE 11/13/23 14:09 11/13/23 17:44 Urine Culture - Preliminary Urine,Clean Catch Gram negative bacilli 11/13/23 12:37 Aerobic Blood Culture - Preliminary Blood Gram negative bacilli Anaerobic Blood Culture - Preliminary Gram negative bacilli 11/13/23 12:37 Aerobic Blood Culture - Preliminary Blood Gram positive cocci clusters Anaerobic Blood Culture - Preliminary Gram negative bacilli 11/15/23 11/14/23 11/14/23 05:41 23:39 21:04 POC Glucose 144 H 120 H 143 H Electrocardiogram Date: 11/13/2313-Nov-2023 10:49:50 [facility] [place]-EDSTAT ROUTINE RETRIEVAL Sinus tachycardia with 1st degree A-V block Left atrial enlargement Rightward axis Nonspecific ST abnormality Abnormal ECG When compared with ECG of 29-JAN-2023 12:18, [place] interval has increased Inverted T waves have replaced nonspecific T wave abnormality in Inferior leads 25mm/s10mm/[id number]: [id number] by: REFERRED SELF Unconfirmed Vent. rate 101 BPM [place] interval 210 ms QRS duration 98 ms QT/QTc 356/461 ms P Chest X-Ray Date: 11/13/23 XR chest 1V portable HISTORY: 68 years-old Male Sepsis acute sepsis COMPARISON: 01/29/2023 TECHNIQUE: AP view of the chest FINDINGS: Cardiomediastinal and hilar silhouettes are unchanged. No pneumothorax, pleural effusion, airspace consolidation or pulmonary edema. Bones appear grossly intact. IMPRESSION: No acute process
[2023-11-15] MEDS: POTASSIUM CHLORIDE CRTAB 20 MEQ TABCR PO STA (08:01)
[2023-11-15] MEDS: carvediloL 6.25 MG TAB PO STA (08:01)
[2023-11-15] MEDS: MAGNESIUM SULFATE / D5W 1 GM/100 ML BAG IV SCH (08:02)
--- NOTE | 2023-11-15 08:54 | History & Physical Bridge Note ---
Date of Service November 15, 2023 History & Physical Bridge Note I have examined the patient, reviewed the History & Physical and in the interval since the performance of the History & Physical I have noted the following changes of clinical significance: no changes noted. 4/5 hgb 7.6 (previously 7.5). Patient denies any nausea, vomiting, abdominal pain. no bowel movements since yesterday. he has been NPO. he was planned for EGD today to further evaluate given history of duodenal ulcers. anesthesia had concerns due to sepsis as blood cultures shown gram negative bacilli. since HGB is stable. will plan to monitor patient and continue with protonix 40mg BID.
[2023-11-15] MEDS ORDERED: Nursing to Pharmacy Communication SCH ×2 (09:30→19:45)
--- NOTE | 2023-11-15 09:38 | Orthopedic Consultation ---
Date of Consultation November 15, 2023 Assessment & Plan (1) Compression fracture of lumbar vertebra: Dr. Henriquez and I have reviewed the films and the patient's case. We are not recommending any specific intervention at this point. He may ambulate with physical therapy. His body habitus is such that he is not appreciable. We have discussed evaluation and treatment of osteoporosis to be done as an outpatient. If there are any other questions or concerns please contact us. History of Present Illness Attending Physician: Ishaan Briones MD History of Present Illness Patient is a 68-year-old male who was admitted through the emergency room on 11/13/2023. His found him on the floor due to suspected fall. During his workup it was noted that he had a subacute to acute L2 compression deformity. At this point the patient is not having severe pain. He is having more issues with sepsis and keeps on dropping his hematocrit. He is not having any radicular complaints. He also states that he had a fall last January. Falling down 13 wooden steps. He denies any other numbness, tingling, or paresthesias. Allergies Allergy/AdvReac Type Severity Reaction Status Date / Time No Known Allergies Allergy Verified 11/13/23 12:46 Home Medications Medication Instructions Recorded Confirmed Type aspirin 81 mg tablet,delayed 81 mg PO QAM 04/08/18 11/13/23 History release (Adult Aspirin Regimen) atorvastatin 20 mg tablet (Lipitor) 20 mg PO QAM 04/08/18 11/13/23 History cyanocobalamin (vitamin B-12) 1,000 mcg PO QAM 04/08/18 11/13/23 History 1,000 mcg tablet (Vitamin B-12) omega 6-mhs-qbz-fish oil 100 1 cap PO QAM 04/08/18 11/13/23 History mg-160 mg-1,000 mg capsule dorzolamide 22.3 mg-timolol 6.8 1 drp OPB BID 06/09/19 11/13/23 History mg/mL eye drops multivitamin 1 tab PO QAM 06/09/19 11/13/23 History ascorbic acid (vitamin C) 1,000 mg 1 g PO QAM 06/09/21 11/13/23 History tablet carvedilol 6.25 mg tablet 6.25 mg PO BID 06/09/21 11/13/23 History insulin glargine 100 unit/mL (3 20 unit subcut QAM 06/09/21 11/13/23 History mL) subcutaneous pen (Basaglar KwikPen U-100 Insulin) metformin 500 mg tablet 500 mg PO BID 06/09/21 11/13/23 History allopurinol 300 mg tablet See Rx Instructions .Route .COMPLEX 06/28/21 11/13/23 History allopurinol 100 mg tablet See Rx Instructions .Route .COMPLEX 01/29/23 11/13/23 History ammonium lactate 12 % topical cream 1 applic topical UD PRN Skin 01/29/23 11/13/23 History Irritation netarsudil 0.02 % eye drops 1 drp OPL HS 01/29/23 11/13/23 History (Rhopressa) semaglutide 2 mg/dose (8 mg/3 mL) 2 mg subcut WK 01/29/23 11/13/23 History subcutaneous pen injector (Ozempic) epoetin judith 20,000 unit/2 mL 20,000 unit subcut UD 11/13/23 11/13/23 History injection solution (Procrit) losartan 25 mg tablet 25 mg PO QAM 11/13/23 11/13/23 History torsemide 20 mg tablet 20 mg PO QAM 11/13/23 11/13/23 History Patient History Medical History History of colon polyps BENIGN Carpal tunnel syndrome of right wrist Benign cyst of kidney FATTY TISSUE GERD (gastroesophageal reflux disease) Hx of gout Diabetes mellitus, type II Vitamin B12 deficiency PT NOT SURE Anemia Chronic anticoagulation Diabetic neuropathy Mild nonproliferative diabetic retinopathy CKD (chronic kidney disease) stage 3, GFR 30-59 ml/min RLS (restless legs syndrome) Sleep apnea CPAP History of DVT (deep vein thrombosis) LEFT LEG IN 1980. OCCURED AFTER INJURY. >REASON FOR COUMADIN Hypertension Hyperlipidemia Chronic venous insufficiency UNNA BOOTS B/L - CHANGED ONCE A WEEK SOME OPEN SORES ON LEGS/WOUND [facility] [place] Surgical History History of endoscopy Family history of reaction to anesthesia MOTHER>SLOW TO WAKE UP [place] teeth removed 1 History of repair of retinal tear by laser photocoagulation History of cataract surgery RT/LEFT History of amputation of toe SMALL RT TOE History of colonoscopy Family History Mother Family history of diabetes mellitus Father Family history of diabetes mellitus Other Diabetes Heart disease Hypertension Social History Smoking Status: Never smoker Second Hand Exposure: No; Do You Dip or Chew Tobacco: No; Hx Alcohol Use: Yes Alcohol type: beer Hx Substance Use: No Preferred Language: Uzbek Communication Ability: Effective Constitutional Law Professor Required: No Beliefs That Will Affect Care: None Current Living Situation: Spouse Feels Safe at Home: Yes Safety Concerns: Feels Safe At This Time Assistive Devices: CPAP and Glasses Physical Exam Physical Exam: On exam he is alert and oriented. He is nontender about the lower portion of his lumbar spine. His lower extreme motor exam reveals no focal atrophy strength and sensation are both intact he is able to roll from [id number] without severe pain. His abdomen soft nontender calves are supple and nontender visual michelle are grossly intact. Cardiovascular exam reveals no gross abnormalities Results & Data Vital Signs (Past 12 Hours) Vital Signs Temp Pulse Pulse Resp BP Pulse Ox O2 Del Method 11/15/23 07:00 36.8 C 96 H 18 123/70 96 Room Air 11/15/23 03:40 81 28 H 99 11/15/23 02:47 36.5 C 80 18 140/70 99 CPAP 11/14/23 23:40 36.6 C 84 20 107/68 98 CPAP 11/14/23 22:40 84 28 H 98 11/14/23 22:15 84 FiO2 11/15/23 07:00 11/15/23 03:40 21 11/15/23 02:47 11/14/23 23:40 11/14/23 22:40 21 11/14/23 22:[address] scan of the abdomen pelvis reveals mild compression deformity of L2. The radiologist noted edema anteriorly making this acute to subacute. There are no retropulsed fragments or high-grade stenosis noted. There are chronic compression deformities of T10-T11 and L1 which appear to be chronic.
--- NOTE | 2023-11-15 10:01 | Nephrology Consultation ---
Date of Consultation November 15, 2023 Assessment & Plan (1) Acute kidney injury superimposed on chronic kidney disease: ZAHRAA sec to Sepsis/bacteremia/GI bleed on background CKD. baseline creat 1.6--2.3 last 6 months. Most recent outpt creat 1.9 as of . He is making urine and creat Although not improved has not gone up. No need of dialysis. In fact His renal function holding better than expected given the situation of bacteremia, sepsis and Severe Anemia. No further workup needed. Can stop iv fluid. We just have to be patient for renal recovery which will be pronlged and may even have new baseline. (2) Bacteremia due to Gram-negative bacteria: On Abx. Use Non nephrotoxic abx. (3) Compression fracture of lumbar vertebra: reviewed Course of events and Orthopedics note. (4) Acute on chronic anemia: Sec to GIB bleed and Sepsis and ZAHRAA Plan Case complexity high. reviewed GI, Orthopedics and ID note . History of Present Illness Reason for Consultation: ZAHRAA Attending Physician: Ishaan Briones MD History of Present Illness 68/M Came to emergency department after a fall he had at home 4 days ago. At that time, the patient was at home and fell in the middle of the night where he laid until his found him the following morning and called 911. He denies any recent change in medications or diet. He states he did not have much to eat or drink the day prior and thinks that this could have contributed. he was found to have ZAHRAA and severe anemia. does have CKD ( baseline creat 1.6--2.3 last 6 months) Also Bacteremia with Gram neg and getting Abx. hgb on admission was 6.4 and needed PRBC. getting EGD today. Also has sepsis and Fracture. he had EGD in September 2023 showing duodenal ulcers. Despite iv fluids and holding Losartan and torsemide renal function not recovered yet. However creat not rising either. BP is fine now. making urine around 1600 ml average last 2 days ROS--see HPI. 12 systems reviewed and otherwise negative Physical Exam Constitutional: No resp distress. Vital signs good. Awake and alert Respiratory: normal respiratory effort, lungs clear to auscultation Cardiovascular: RRR, no murmur, no edema Gastrointestinal (Abdomen): normal bowel sounds, soft, nontender, no hepatosplenomegaly Psychiatric: Orientation: alert and oriented x 3 Affect: euthymic affect Allergies Allergy/AdvReac Type Severity Reaction Status Date / Time No Known Allergies Allergy Verified 11/13/23 12:46 Home Medications Medication Instructions Recorded Confirmed Type aspirin 81 mg tablet,delayed 81 mg PO QAM 04/08/18 11/13/23 History release (Adult Aspirin Regimen) atorvastatin 20 mg tablet (Lipitor) 20 mg PO QAM 04/08/18 11/13/23 History cyanocobalamin (vitamin B-12) 1,000 mcg PO QAM 04/08/18 11/13/23 History 1,000 mcg tablet (Vitamin B-12) omega 5-qsq-zof-fish oil 100 1 cap PO QAM 04/08/18 11/13/23 History mg-160 mg-1,000 mg capsule dorzolamide 22.3 mg-timolol 6.8 1 drp OPB BID 06/09/19 11/13/23 History mg/mL eye drops multivitamin 1 tab PO QAM 06/09/19 11/13/23 History ascorbic acid (vitamin C) 1,000 mg 1 g PO QAM 06/09/21 11/13/23 History tablet carvedilol 6.25 mg tablet 6.25 mg PO BID 06/09/21 11/13/23 History insulin glargine 100 unit/mL (3 20 unit subcut QAM 06/09/21 11/13/23 History mL) subcutaneous pen (Basaglar KwikPen U-100 Insulin) metformin 500 mg tablet 500 mg PO BID 06/09/21 11/13/23 History allopurinol 300 mg tablet See Rx Instructions .Route .COMPLEX 06/28/21 11/13/23 History allopurinol 100 mg tablet See Rx Instructions .Route .COMPLEX 01/29/23 11/13/23 History ammonium lactate 12 % topical cream 1 applic topical UD PRN Skin 01/29/23 11/13/23 History Irritation netarsudil 0.02 % eye drops 1 drp OPL HS 01/29/23 11/13/23 History (Rhopressa) semaglutide 2 mg/dose (8 mg/3 mL) 2 mg subcut WK 01/29/23 11/13/23 History subcutaneous pen injector (Ozempic) epoetin judith 20,000 unit/2 mL 20,000 unit subcut UD 11/13/23 11/13/23 History injection solution (Procrit) losartan 25 mg tablet 25 mg PO QAM 11/13/23 11/13/23 History torsemide 20 mg tablet 20 mg PO QAM 11/13/23 11/13/23 History Patient History Medical History (Updated 11/15/23 @ 10:08 by Jorge Luis Key MD) ZAHRAA (acute kidney injury) History of colon polyps BENIGN Carpal tunnel syndrome of right wrist Benign cyst of kidney FATTY TISSUE GERD (gastroesophageal reflux disease) Hx of gout Diabetes mellitus, type II Vitamin B12 deficiency PT NOT SURE Anemia Chronic anticoagulation Diabetic neuropathy Mild nonproliferative diabetic retinopathy CKD (chronic kidney disease) stage 3, GFR 30-59 ml/min RLS (restless legs syndrome) Sleep apnea CPAP History of DVT (deep vein thrombosis) LEFT LEG IN 1980. OCCURED AFTER INJURY. >REASON FOR COUMADIN Hypertension Hyperlipidemia Chronic venous insufficiency UNNA BOOTS B/L - CHANGED ONCE A WEEK SOME OPEN SORES ON LEGS/WOUND [facility] [place] Surgical History History of endoscopy Family history of reaction to anesthesia MOTHER>SLOW TO WAKE UP [place] teeth removed 1 History of repair of retinal tear by laser photocoagulation History of cataract surgery RT/LEFT History of amputation of toe SMALL RT TOE History of colonoscopy Family History Mother Family history of diabetes mellitus Father Family history of diabetes mellitus Other Diabetes Heart disease Hypertension Social History Smoking Status: Never smoker Second Hand Exposure: No; Do You Dip or Chew Tobacco: No; Hx Alcohol Use: Yes Alcohol type: beer Hx Substance Use: No Preferred Language: Hebrew Communication Ability: Effective Nursing Associate Required: No Beliefs That Will Affect Care: None Current Living Situation: Spouse Feels Safe at Home: Yes Safety Concerns: Feels Safe At This Time Assistive Devices: CPAP and Glasses Results & Data Vital Signs (Past 12 Hours) Vital Signs Temp Pulse Pulse Resp BP Pulse Ox O2 Del Method 11/15/23 07:00 36.8 C 96 H 18 123/70 96 Room Air 11/15/23 03:40 81 28 H 99 11/15/23 02:47 36.5 C 80 18 140/70 99 CPAP 11/14/23 23:40 36.6 C 84 20 107/68 98 CPAP 11/14/23 22:40 84 28 H 98 11/14/23 22:15 84 FiO2 11/15/23 07:00 11/15/23 03:40 21 11/15/23 02:47 11/14/23 23:40 11/14/23 22:40 21 11/14/23 22:15 Laboratory Results reviewed Diagnostic Findings reviewed.
--- NOTE | 2023-11-15 10:19 | Gastroenterology Progress Note ---
Date of Service November 15, 2023 Assessment & Plan (1) History of duodenal ulcer: Plan Since HGB is stable, we will plan to monitor patient and continue with protonix 40mg IV BID. discussed case with Dr. Ramirez. - EGD will be cancelled for today due to concern for sepsis given gram neg bacilli seen on blood cultures. continue with zosyn and daptomycin. - monitor hgb/hct. transfuse as needed. - check stool h pylori antigen. - continue with protonix IV 40mg bid. Admission and Anticipated Discharge Date Admission Date: November 13, 2023 Supervising Physician Co-Signing Physician Notes Agree with HODAN Burkett as above Abd: Soft, NT, ND Blood cultures are positive and he is receiving IV Abx therapy No overt GI bleeding Recommend continuing current therapy and supportive care Will hold on EGD at this time, and consider as outpatient, unless he has active GI bleeding Check H. pylori stool Ag Subjective 4/5 hgb 7.6 (previously 7.5). Patient denies any nausea, vomiting, abdominal pain. no bowel movements since yesterday. no signs of any gi bleeding. he has been NPO. he was planned for EGD today to further evaluate given history of duodenal ulcers. anesthesia had concerns due to sepsis as blood cultures shown gram negative bacilli. Review of Systems Review of Systems: All systems reviewed & are unremarkable except as noted in HPI & below Physical Exam Constitutional: WD/WN, vitals as above Respiratory: normal respiratory effort, lungs clear to auscultation Cardiovascular: RRR, no murmur, no edema Gastrointestinal (Abdomen): normal bowel sounds, soft, nontender, no hepatosplenomegaly Psychiatric: Orientation: alert and oriented x 3 Affect: euthymic affect Results & Data Results & Data Vital Signs (Past 12 Hours) Vital Signs Temp Pulse Pulse Resp BP Pulse Ox O2 Del Method 11/15/23 07:00 98.2 F 96 H 18 123/70 96 Room Air 11/15/23 03:40 81 28 H 99 11/15/23 02:47 97.7 F 80 18 140/70 99 CPAP 11/14/23 23:40 97.9 F 84 20 107/68 98 CPAP 11/14/23 22:40 84 28 H 98 FiO2 11/15/23 07:00 11/15/23 03:40 21 11/15/23 02:47 11/14/23 23:40 11/14/23 22:40 21 Coding Level of Care Code 10847 SUB INP/OBS CARE MIN Diagnoses History of duodenal ulcer Z87.19
--- NOTE | 2023-11-15 14:11 | Hospitalist Progress Note ---
Date of Service November 15, 2023 Assessment & Plan (1) Sepsis: (2) Cellulitis: (3) Acute on chronic anemia: (4) Fall: (5) Generalized weakness: (6) Acute kidney injury superimposed on chronic kidney disease: (7) Hypomagnesemia: (8) Venous stasis ulcers: (9) Diabetes mellitus, type II: (10) Hypertension: (11) Hyperlipidemia: (12) SPENCER on CPAP: Plan: Sepsis secondary to bacteremia, staph Bilateral lower extremity cellulitis, infected chronic wounds Possible UTI, pyelonephritis Suspect bilateral lower extremity cellulitis/wound to be the source of infection. Will obtain CT of the right leg to rule out underlying abscess. Started on empiric Zosyn and Vanco, follow-up on blood culture Wound care consult CT abdomen pelvis: 1. There is asymmetric right-sided perinephric stranding. Correlate with clinical findings and urinalysis. 2. There is an acute to subacute appearing superior plate compression deformity of L2 with mild loss of height. Correlate for point tenderness. 3. There are additional minimal age indeterminate superior compression deformities of T10, T11, and L1. These are new from 01/29/2023. Correlate clinically. 4. Nephrolithiasis. 5. Bladder distention. 6. Cholelithiasis. 7. Prominent iliac chain lymph nodes are similar to previous and likely reactive. 8. Hepatosplenomegaly. 9. Additional findings as above. CT lower extremity: 1. No acute bony abnormality is seen involving the right tibia or fibula. 2. Diffuse soft tissue edema and subcutaneous fluid is seen throughout the right leg. Correlate clinically. 3. There is no organized fluid collection seen on this unenhanced examination. 4. Extensive soft tissue calcification is again seen in the right leg. / Hemodynamically stable Blood cultures: Possible staph Repeat blood cultures: Pending Urine culture: Pending Daptomycin plus Zosyn ID consult Wound care consult 11/14 Remains stable Blood cultures: E. coli, coag neck staph Repeat blood cultures: Pending Urine culture: E. coli Transition to ceftriaxone IV per ID recommendation Echocardiogram: Pending Possible upper GI bleed Acute blood loss anemia History of duodenal ulcer Underwent endoscopy in September 2023; found to have nonbleeding duodenal ulcer. He was recommended Prilosec which he is not taking. Also, recommended to be off aspirin. He is currently taking baby aspirin for primary prevention. Had CBC done 2 days ago; hemoglobin was around 9.4 Denies melena, hematemesis. Stop aspirin. IV Protonix twice daily Transfuse 1 unit of blood CBC tomorrow a.m. Given history of duodenal ulcer, presence of aspirin; will appreciate GIs input for possible endoscopy tomorrow AM. N.p.o. from midnight. 11/13 1 unit packed RBCs ordered Hemoglobin improved from 6.4, now 7.5 For EGD tomorrow Protonix 40 mg IV twice daily 11/14 Hemoglobin stable No recurrence of melena hematochezia EGD canceled in light of bacteremia Continue Protonix 40 mg IV twice daily Anemia panel ordered Acute kidney injury Suspect secondary to sepsis/GI bleed Started on NS at 100 cc/h Renal ultrasound Avoid nephrotoxic agent Hold torsemide, losartan 11/13 CT abdomen pelvis: Kidneys: The unenhanced kidneys are normal in size and without hydronephrosis. There is a 15 mm calculus in the right renal pelvis. A punctate nonobstructing calculus is in the left kidney. No ureteral stone is identified. Bilateral renal cysts measure up to 3.4 cm. There is asymmetric right-sided perinephric stranding. Creatinine 2.0, 2.4, 2.5 Continue gentle IV fluids Monitor closely 11/14 Creatinine remained stable around 2.4 Nephrology service consulted Stop IV fluids Torsemide on hold Chronic conditions; Hyperlipidemiacontinue Lipitor Hypertensioncontinue Coreg, hold losartan Type 2 diabetes mellitushold metformin, on Lantus, NovoLog, pharmacy on consult. Anemia of chronic diseaseon erythropoietin every other week. History of DVTCoumadin was stopped August. History of DVTs in 1979; provoked. Will obtain bilateral LE duplex Ambulate is much as possible Full code DVT prophylaxisnone given possible chance of bleed, SCDs contraindicated due to bilateral lower extremity wounds. plan of care discussed with patient and his at the bedside in detail and at length all questions answered they are understanding, agreeable, comfortable with the plan of care (13) Gout: Admission and Anticipated Discharge Date Admission Date: November 13, 2023 Subjective Follow-up for sepsis, etc. Seen resting in bed, awake and alert, in good spirits Patient's at the bedside visiting Patient states he feels improved today compared to yesterday Was able to get up from the bed and moved to the chair today Back pain manageable No abdominal pain, nausea, melena, hematochezia No fevers or chills Right lower extremity pain manageable No other new symptom Review of Systems Review of Systems: all noted and negative except for above Physical Exam Physical Exam: General- oriented x 3, not in distress, speaks in sentences with no effort or accessory muscle use Eyes- anicteric Neck- no JVD Lungs- clear breath sounds bilaterally, no rales/wheezes Heart- normal rate, regular rhythm; no murmurs Abdomen- normal bowel sounds, nondistended, soft, nontender Extremities-grade 1-2 lower extremity edema Dressing in place, no bleeding or discharge Minimal erythema on the visible lower leg Neuro- alert, oriented x 3; no gross focal neurologic deficits Skin- warm & dry Results & Data Results & Data Vital Signs (Past 12 Hours) Vital Signs Temp Pulse Pulse Resp BP Pulse Ox O2 Del Method 11/15/23 11:00 36.8 C 96 H 16 119/58 L 98 Room Air 11/15/23 07:00 36.8 C 96 H 18 123/70 96 Room Air 11/15/23 03:40 81 28 H 99 11/15/23 02:47 36.5 C 80 18 140/70 99 CPAP FiO2 11/15/23 11:00 11/15/23 07:00 11/15/23 03:40 21 11/15/23 02:47 all noted and reviewed including below (1) Sepsis Acute renal failure type: unspecified Sepsis acute organ dysfunction status: with acute organ dysfunction Sepsis type: sepsis due to unspecified organism Severe sepsis acute organ dysfunction type: acute renal failure Severe sepsis shock status: without septic shock Qualified Code(s): A41.9 - Sepsis, unspecified organism; R65.20 - Severe sepsis without septic shock; N17.9 - Acute kidney failure, unspecified (8) Venous stasis ulcers Laterality: right Non-pressure ulcer stage: unspecified non-pressure ulcer stage Varicose vein presence: unspecified whether present Venous stasis ulcer site: other part of lower leg Qualified Code(s): I83.018 - Varicose veins of right lower extremity with ulcer other part of lower leg; L97.819 - Non-pressure chronic ulcer of other part of right lower leg with unspecified severity (10) Hypertension Hypertension type: essential hypertension Qualified Code(s): I10 - Essential (primary) hypertension
[2023-11-15] MEDS: cefTRIAXone SODIUM 2,000 MG in DEXTROSE 5 % MINI-B 50 ML IV SCH (17:02)
[2023-11-15 20:11] LABS: Estimated Average Glucose 128 mg/dl; Hemoglobin A1C 6.1 % (4.5-5.6)
[2023-11-15] MEDS: LANTUS PER UNIT CHARGE SQ SCH (20:39)
[2023-11-15] MEDS: INSULIN ASPART PER UNIT CHARGE SC SCH (20:40)
[2023-11-15] MEDS: carvediloL 6.25 MG TAB PO SCH (20:41)
--- NOTE | 2023-11-16 00:36 | Electrocardiogram Report ---
Test Reason : Blood Pressure : / mmHG Vent. Rate : 101 BPM Atrial Rate : 101 BPM P-R Int : 210 ms QRS Dur : 098 ms QT Int : 356 ms P-R-T Axes : 026 100 013 degrees QTc Int : 461 ms Poor data quality, interpretation may be adversely affected Sinus tachycardia Rightward axis Nonspecific ST abnormality Abnormal ECG When compared with ECG of 29-JAN-2023 12:18, Inverted T waves have replaced nonspecific T wave abnormality in Inferior leads Confirmed by Kristopher Leach ([id number]) on 11/16/2023 12:35:53 AM Referred By: REFERRED SELF Confirmed By:Kristopher Leach
--- NOTE | 2023-11-16 07:25 | Electrocardiogram Report ---
Test Reason : Blood Pressure : / mmHG Vent. Rate : 085 BPM Atrial Rate : 085 BPM P-R Int : 168 ms QRS Dur : 106 ms QT Int : 394 ms P-R-T Axes : 034 045 037 degrees QTc Int : 468 ms Sinus rhythm with frequent Premature ventricular complexes AIVR present in initial part of tracing Abnormal ECG When compared with ECG of 13-NOV-2023 10:49, (unconfirmed) Premature ventricular complexes are now Present Confirmed by Kristopher Leach ([id number]) on 11/16/2023 7:24:41 AM Referred By: REFERRED SELF Confirmed By:Kristopher Leach
[2023-11-16 07:49] LABS: Basophils # (auto) 0.02 K/uL (0.00-0.20); Basophils % (auto) 0.3 %; Eosinophils # (auto) 0.39 K/uL (0.00-0.50); Eosinophils % (auto) 6.8 %; Hematocrit (blood only) 21.8 % (42.0-52.0); Hemoglobin 7.4 g/dl (14.0-18.0); Immature Granulocytes # (auto) 0.02 K/uL (0.01-0.20); Immature Granulocytes % (auto) 0.3 %; Lymphocytes # (auto) 0.88 K/uL (1.20-3.40); Lymphocytes % (auto) 15.3 %; Mean Corpuscular Hemoglobin 31.2 pg (25.0-34.0); Mean Corpuscular Hgb Conc 33.9 g/dL (32.0-36.0); Mean Platelet Volume 10.8 fL (9.4-12.4); Monocytes # (auto) 0.66 K/uL (0.11-0.59); Monocytes % (auto) 11.5 %; Neutrophils # (auto) 3.78 K/uL (1.40-6.50); Neutrophils % (auto) 65.8 %; Nucleated RBC # (auto) 0.02 K/uL (0.00-0.12); Nucleated RBC % (auto) 0.3 %; Platelet Count 156 K/uL (130-400); RDW Coefficient of Variation 18.4 % (11.5-14.5); RDW Standard Deviation 61.8 fL (36.4-46.3); Red Blood Count 2.37 M/uL (4.70-6.10); White Blood Count 5.75 K/ul (4.8-10.8)
[2023-11-16 07:56] LABS: BUN Creatinine Ratio 25.2 (10-20); Calcium 8.5 mg/dl (8.6-10.3); Creatinine Clr Calc Pharmacy 43.5 ml/min; Est GFR (African American) 36.9 ml/min; Est GFR (Non-African American) 31.8 ml/min; Magnesium 1.9 mg/dl (1.7-2.4); Potassium 3.9 mmol/L (3.5-5.1)
[2023-11-16 08:14] LABS: Ferritin 786.9 ng/ml (8-388)
[2023-11-16 08:17] LABS: Anisocytosis Present; Polychromasia 1+; Tear Drop Cells 1+
[2023-11-16 08:29] LABS: Folate (Folic Acid),Ser orPlas > 22.30 ng/ml (>5.38)
[2023-11-16 08:30] LABS: Vitamin B12 914 pg/ml (180-914)
[2023-11-16] MEDS ORDERED: PHARMACY GLYCEMIC MGMT CONSULT PRN (08:49)
--- NOTE | 2023-11-16 13:40 | Pharmacy Report ---
Pharmacy Glycemic Short Note 2 - Date of Service November 16, 2023 - Glycemic Short BSG Results (Last 24 hours): 11/15/23 11/15/23 11/16/23 16:33 19:42 06:58 Glucose 98 POC Glucose 280 H 212 H 11/16/23 11/16/23 11/16/23 07:43 07:44 11:30 Glucose POC Glucose 69 L* 137 H 183 H OUTPATIENT ANTIDIABETIC REGIMEN: * Lantus 20 units SC AM * Metformin 500 mg PO BID * Ozempic 2 mg SC every Saturday * HbA1c: 6.1% (11/15/23) ASSESSMENT: * 68 yo M admitted on 11/13/23 secondary to fever and fall. Pharmacy has been consulted this AM to assist with inpatient glycemic management. Patient is a Type 2 diabetic as an outpatient. Please refer to outpatient regimen and most recent HbA1c above. * Patient's BSG was 69 mg/dL this AM which prompted consult but recheck 1 min later was 137 mg/dL making original result erroneous. Received 22 units of insulin yesterday (5 basal + 17 bolus) with BSGs being [phone] mg/dL. * No changes necessary to current regimen. PLAN FOR INPATIENT GLYCEMIC CONTROL: * Hold outpatient oral diabetes medications * Basal insulin * Lantus 5 units SC HS * Bolus insulin * NovoLog per scale ACHS or Q6hrs while NPO * Goal Range: Low 110 mg/dL - High 140 mg/dL * Correction Factor: 20 mg/dL/unit * Nutritional / Prandial insulin per carb ratio of 1 unit per 7 grams CHO consumed
--- NOTE | 2023-11-16 16:09 | Hospitalist Progress Note ---
Date of Service November 16, 2023 Assessment & Plan (1) Sepsis: (2) Cellulitis: (3) Acute on chronic anemia: (4) Fall: (5) Generalized weakness: (6) Acute kidney injury superimposed on chronic kidney disease: (7) Hypomagnesemia: (8) Venous stasis ulcers: (9) Diabetes mellitus, type II: (10) Hypertension: (11) Hyperlipidemia: (12) SPENCER on CPAP: Plan: Sepsis secondary to bacteremia, staph Bilateral lower extremity cellulitis, infected chronic wounds Possible UTI, pyelonephritis Suspect bilateral lower extremity cellulitis/wound to be the source of infection. Will obtain CT of the right leg to rule out underlying abscess. Started on empiric Zosyn and Vanco, follow-up on blood culture Wound care consult CT abdomen pelvis: 1. There is asymmetric right-sided perinephric stranding. Correlate with clinical findings and urinalysis. 2. There is an acute to subacute appearing superior plate compression deformity of L2 with mild loss of height. Correlate for point tenderness. 3. There are additional minimal age indeterminate superior compression deformities of T10, T11, and L1. These are new from 01/29/2023. Correlate clinically. 4. Nephrolithiasis. 5. Bladder distention. 6. Cholelithiasis. 7. Prominent iliac chain lymph nodes are similar to previous and likely reactive. 8. Hepatosplenomegaly. 9. Additional findings as above. CT lower extremity: 1. No acute bony abnormality is seen involving the right tibia or fibula. 2. Diffuse soft tissue edema and subcutaneous fluid is seen throughout the right leg. Correlate clinically. 3. There is no organized fluid collection seen on this unenhanced examination. 4. Extensive soft tissue calcification is again seen in the right leg. 11/13 Hemodynamically stable Blood cultures: Possible staph Repeat blood cultures: Pending Urine culture: Pending Daptomycin plus Zosyn ID consult Wound care consult 11/14 Remains stable Blood cultures: E. coli, coag neg staph Repeat blood cultures: Pending Urine culture: E. coli Transition to ceftriaxone IV per ID recommendation Echocardiogram: No significant valvular disease 11/15 Improving Second blood culture: Negative Continue IV ceftriaxone Possible upper GI bleed Acute blood loss anemia History of duodenal ulcer Underwent endoscopy in September 2023; found to have nonbleeding duodenal ulcer. He was recommended Prilosec which he is not taking. Also, recommended to be off aspirin. He is currently taking baby aspirin for primary prevention. Had CBC done 2 days ago; hemoglobin was around 9.4 Denies melena, hematemesis. Stop aspirin. IV Protonix twice daily Transfuse 1 unit of blood CBC tomorrow a.m. Given history of duodenal ulcer, presence of aspirin; will appreciate GIs input for possible endoscopy tomorrow AM. N.p.o. from midnight. 11/13 1 unit packed RBCs ordered Hemoglobin improved from 6.4, now 7.5 For EGD tomorrow Protonix 40 mg IV twice daily 11/14 Hemoglobin stable No recurrence of melena hematochezia EGD canceled in light of bacteremia Continue Protonix 40 mg IV twice daily Anemia panel ordered 11/15 Stable Hemoglobin stable at 7.5 Acute kidney injury Suspect secondary to sepsis/GI bleed Started on NS at 100 cc/h Renal ultrasound Avoid nephrotoxic agent Hold torsemide, losartan 11/13 CT abdomen pelvis: Kidneys: The unenhanced kidneys are normal in size and without hydronephrosis. There is a 15 mm calculus in the right renal pelvis. A punctate nonobstructing calculus is in the left kidney. No ureteral stone is identified. Bilateral renal cysts measure up to 3.4 cm. There is asymmetric right-sided perinephric stranding. Creatinine 2.0, 2.4, 2.5 Continue gentle IV fluids Monitor closely 11/14 Creatinine remained stable around 2.4 Nephrology service consulted Stop IV fluids Torsemide on hold 11/15 crea improving, 2.1 Torsemide on hold Chronic conditions; Hyperlipidemiacontinue Lipitor Hypertensioncontinue Coreg, hold losartan Type 2 diabetes mellitushold metformin, on Lantus, NovoLog, pharmacy on consult. Anemia of chronic diseaseon erythropoietin every other week. History of DVTCoumadin was stopped August. History of DVTs in 1979; provoked. Will obtain bilateral LE duplex Ambulate is much as possible Full code DVT prophylaxisnone given possible chance of bleed, SCDs contraindicated due to bilateral lower extremity wounds. plan of care discussed with patient and his at the bedside in detail and at length all questions answered they are understanding, agreeable, comfortable with the plan of care (13) Gout: Admission and Anticipated Discharge Date Admission Date: November 13, 2023 Subjective Follow-up for sepsis, etc. Seen resting in bed, comfortable, not in distress In good spirits States he continues to feel improved overall No fevers or chills, leg discomfort improving Still slower ambulation, still having some back pain No BMs yet no chest pain, dyspnea, palpitations, dizziness No other new symptom Review of Systems Review of Systems: all noted and negative except for above Physical Exam Physical Exam: General- oriented x 3, not in distress, speaks in sentences with no effort or accessory muscle use Eyes- anicteric Neck- no JVD Lungs- clear breath sounds bilaterally, no rales/wheezes Heart- normal rate, regular rhythm; no murmurs Abdomen- normal bowel sounds, nondistended, soft, nontender Extremities- gr 1 lower extremity edema Less erythema Dressing in place, no bleeding or discharge Neuro- alert, oriented x 3; no gross focal neurologic deficits Skin- warm & dry Results & Data Results & Data Vital Signs (Past 12 Hours) Vital Signs Temp Pulse Pulse Resp BP Pulse Ox O2 Del Method 11/16/23 07:30 36.8 C 66 20 128/65 97 CPAP 11/16/23 04:27 73 26 H 99 FiO2 11/16/23 07:30 11/16/23 04:27 21 (1) Sepsis Acute renal failure type: unspecified Sepsis acute organ dysfunction status: with acute organ dysfunction Sepsis type: sepsis due to unspecified organism Severe sepsis acute organ dysfunction type: acute renal failure Severe sepsis shock status: without septic shock Qualified Code(s): A41.9 - Sepsis, unspecified organism; R65.20 - Severe sepsis without septic shock; N17.9 - Acute kidney failure, unspecified (8) Venous stasis ulcers Venous stasis ulcer site: other part of lower leg Varicose vein presence: unspecified whether present Laterality: right Non-pressure ulcer stage: unspecified non-pressure ulcer stage Qualified Code(s): I83.018 - Varicose veins of right lower extremity with ulcer other part of lower leg; L97.819 - Non-pressure chronic ulcer of other part of right lower leg with unspecified severity (10) Hypertension Hypertension type: essential hypertension Qualified Code(s): I10 - Essential (primary) hypertension
[2023-11-16] MEDS: ADVANCED PROBIOTIC 625 MG CAPSULE PO SCH (17:16)
[2023-11-16] MEDS: POLYETHYLENE (MIRALAX) 17 GM PACK PO SCH (17:17)
[2023-11-17 08:07] LABS: Basophils # (auto) 0.03 K/uL (0.00-0.20); Basophils % (auto) 0.5 %; Eosinophils # (auto) 0.27 K/uL (0.00-0.50); Eosinophils % (auto) 4.9 %; Hematocrit (blood only) 22.2 % (42.0-52.0); Hemoglobin 7.4 g/dl (14.0-18.0); Immature Granulocytes # (auto) 0.04 K/uL (0.01-0.20); Immature Granulocytes % (auto) 0.7 %; Lymphocytes # (auto) 0.84 K/uL (1.20-3.40); Lymphocytes % (auto) 15.2 %; Mean Corpuscular Hemoglobin 30.6 pg (25.0-34.0); Mean Corpuscular Hgb Conc 33.3 g/dL (32.0-36.0); Mean Corpuscular Volume 91.7 fL (80.0-100.0); Mean Platelet Volume 9.7 fL (9.4-12.4); Monocytes # (auto) 0.54 K/uL (0.11-0.59); Monocytes % (auto) 9.8 %; Neutrophils # (auto) 3.81 K/uL (1.40-6.50); Neutrophils % (auto) 68.9 %; Platelet Count 157 K/uL (130-400); RDW Standard Deviation 60.6 fL (36.4-46.3); Red Blood Count 2.42 M/uL (4.70-6.10); White Blood Count 5.53 K/ul (4.8-10.8)
[2023-11-17 08:22] LABS: BUN Creatinine Ratio 28.2 (10-20); Calcium 8.3 mg/dl (8.6-10.3); Creatinine Clr Calc Pharmacy 51.8 ml/min; Est GFR (African American) 45.4 ml/min; Est GFR (Non-African American) 39.2 ml/min; Magnesium 1.6 mg/dl (1.7-2.4); Potassium 3.8 mmol/L (3.5-5.1)
[2023-11-17 08:37] LABS: Anisocytosis Present; Polychromasia 1+
--- NOTE | 2023-11-17 09:13 | Pharmacy Report ---
Pharmacy Glycemic Short Note 2 - Date of Service November 17, 2023 - Glycemic Short BSG Results (Last 24 hours): 11/16/23 11/16/23 11/16/23 11:30 16:32 20:15 Glucose POC Glucose 183 H 189 H 157 H 11/17/23 11/17/23 07:06 07:28 Glucose 117 H POC Glucose 120 H OUTPATIENT ANTIDIABETIC REGIMEN: * Lantus 20 units SC AM * Metformin 500 mg PO BID * Ozempic 2 mg SC every Saturday * HbA1c: 6.1% (11/15/23) ASSESSMENT: 11/16: * Received 36 units insulin yesterday, 5 basal + 31 bolus. BSGs were: 248-968-172-157 mg/dL. * Fasting BSG 120 mg/dL this AM. No change to basal. * Tightened carb ratio given trend up in postprandials. 11/15: * 68 yo M admitted on 11/13/23 secondary to fever and fall. Pharmacy has been consulted this AM to assist with inpatient glycemic management. Patient is a Type 2 diabetic as an outpatient. Please refer to outpatient regimen and most recent HbA1c above. * Patient's BSG was 69 mg/dL this AM which prompted consult but recheck 1 min later was 137 mg/dL making original result erroneous. Received 22 units of insulin yesterday (5 basal + 17 bolus) with BSGs being 956-161-250-212 mg/dL. * No changes necessary to current regimen. PLAN FOR INPATIENT GLYCEMIC CONTROL: * Hold outpatient oral diabetes medications * Basal insulin * Lantus 5 units SC HS * Bolus insulin * NovoLog per scale ACHS or Q6hrs while NPO * Goal Range: Low 110 mg/dL - High 140 mg/dL * Correction Factor: 20 mg/dL/unit * Nutritional / Prandial insulin per carb ratio of 1 unit per 6 grams CHO consumed
--- NOTE | 2023-11-17 14:40 | Hospitalist Progress Note ---
Date of Service November 17, 2023 Assessment & Plan (1) Sepsis: (2) Cellulitis: (3) Acute on chronic anemia: (4) Fall: (5) Generalized weakness: (6) Acute kidney injury superimposed on chronic kidney disease: (7) Hypomagnesemia: (8) Venous stasis ulcers: (9) Diabetes mellitus, type II: (10) Hypertension: (11) Hyperlipidemia: (12) SPENCER on CPAP: Plan: Sepsis secondary to E. coli bacteremia UTI, possible pyelonephritis, E. coli Bilateral lower extremity cellulitis, infected chronic wounds, chronic lower extremity edema Suspect bilateral lower extremity cellulitis/wound to be the source of infection. Will obtain CT of the right leg to rule out underlying abscess. Started on empiric Zosyn and Vanco, follow-up on blood culture Wound care consult CT abdomen pelvis: 1. There is asymmetric right-sided perinephric stranding. Correlate with clinical findings and urinalysis. 2. There is an acute to subacute appearing superior plate compression deformity of L2 with mild loss of height. Correlate for point tenderness. 3. There are additional minimal age indeterminate superior compression deformities of T10, T11, and L1. These are new from 01/29/2023. Correlate clinically. 4. Nephrolithiasis. 5. Bladder distention. 6. Cholelithiasis. 7. Prominent iliac chain lymph nodes are similar to previous and likely reactive. 8. Hepatosplenomegaly. 9. Additional findings as above. CT lower extremity: 1. No acute bony abnormality is seen involving the right tibia or fibula. 2. Diffuse soft tissue edema and subcutaneous fluid is seen throughout the right leg. Correlate clinically. 3. There is no organized fluid collection seen on this unenhanced examination. 4. Extensive soft tissue calcification is again seen in the right leg. 11/13 Hemodynamically stable Blood cultures: Possible staph Repeat blood cultures: Pending Urine culture: Pending Daptomycin plus Zosyn ID consult Wound care consult 11/14 Remains stable Blood cultures: E. coli, coag neg staph Repeat blood cultures: Pending Urine culture: E. coli Transition to ceftriaxone IV per ID recommendation Echocardiogram: No significant valvular disease 11/15 Improving Second blood culture: Negative Continue IV ceftriaxone 11/16 Patient continues to improve Currently on IV ceftriaxone antibiotic day #5 ID recommends 14 days of treatment, transition to p.o. Cipro upon discharge Resume torsemide tomorrow Possible upper GI bleed Acute blood loss anemia History of duodenal ulcer Underwent endoscopy in September 2023; found to have nonbleeding duodenal ulcer. He was recommended Prilosec which he is not taking. Also, recommended to be off aspirin. He is currently taking baby aspirin for primary prevention. Had CBC done 2 days ago; hemoglobin was around 9.4 Denies melena, hematemesis. Stop aspirin. IV Protonix twice daily Transfuse 1 unit of blood CBC tomorrow a.m. Given history of duodenal ulcer, presence of aspirin; will appreciate GIs input for possible endoscopy tomorrow AM. N.p.o. from midnight. 11/13 1 unit packed RBCs ordered Hemoglobin improved from 6.4, now 7.5 For EGD tomorrow Protonix 40 mg IV twice daily 11/14 Hemoglobin stable No recurrence of melena hematochezia EGD canceled in light of bacteremia Continue Protonix 40 mg IV twice daily Anemia panel ordered 11/15 Stable Hemoglobin stable at 7.5 11/16 Remains stable No recurrence of melena or hematochezia Hemoglobin stable Continue Protonix 40 mg IV twice daily Iron level 29 Start ferrous sulfate Acute kidney injury Suspect secondary to sepsis/GI bleed Started on NS at 100 cc/h Renal ultrasound Avoid nephrotoxic agent Hold torsemide, losartan 11/13 CT abdomen pelvis: Kidneys: The unenhanced kidneys are normal in size and without hydronephrosis. There is a 15 mm calculus in the right renal pelvis. A punctate nonobstructing calculus is in the left kidney. No ureteral stone is identified. Bilateral renal cysts measure up to 3.4 cm. There is asymmetric right-sided perinephric stranding. Creatinine 2.0, 2.4, 2.5 Continue gentle IV fluids Monitor closely 11/14 Creatinine remained stable around 2.4 Nephrology service consulted Stop IV fluids Torsemide on hold 11/15 crea improving, 2.1 Torsemide on hold 11/16 Creatinine continues to improve Currently 1.7 Resume torsemide tomorrow Chronic conditions: Hyperlipidemiacontinue Lipitor Hypertensioncontinue Coreg, hold losartan Type 2 diabetes mellitushold metformin, on Lantus, NovoLog, pharmacy on consult. Anemia of chronic diseaseon erythropoietin every other week. History of DVTCoumadin was stopped August. History of DVTs in 1979; provoked. Will obtain bilateral LE duplex Ambulate is much as possible Full code DVT prophylaxisnone given possible chance of bleed, SCDs contraindicated due to bilateral lower extremity wounds. Encouraged to ambulate more, transfer to chairs, spend time in the chair during meals plan of care discussed with patient and his at the bedside in detail and at length all questions answered they are understanding, agreeable, comfortable with the plan of care (13) Gout: Admission and Anticipated Discharge Date Admission Date: November 13, 2023 Subjective Follow-up for E. coli bacteremia, UTI, lower extremity infected wounds, etc. Seen resting in bed not in distress Good spirits Patient's at the bedside visiting States he continues to feel improved day by day Ambulating to the bathroom with walker, does not feel wobbly anymore but still on the weak side No fevers or chills, nausea or vomiting No abdominal pain, had a bowel movement today No melena hematochezia Minimal discomfort over the lower extremities No other new symptoms Review of Systems Review of Systems: all noted and negative except for above Physical Exam Physical Exam: General- oriented x 3, not in distress, speaks in sentences with no effort or accessory muscle use Eyes- anicteric Neck- no JVD Lungs- clear breath sounds bilaterally, no crackles or wheezing Heart- normal rate, regular rhythm; no murmurs Abdomen- normal bowel sounds, nondistended, soft, nontender Extremities- no pretibial edema, no calf tenderness Lower extremity edema: Grade 1 edema, mild erythema, open wounds on the right lower extremity seems to be healing No warmth, tenderness Neuro- alert, oriented x 3; no gross focal neurologic deficits Skin- warm & dry Results & Data Results & Data Vital Signs (Past 12 Hours) Vital Signs Temp Pulse Resp BP Pulse Ox O2 Del Method 11/17/23 11:30 36.7 C 88 18 128/63 16 L Room Air 11/17/23 08:00 36.6 C 84 20 119/69 16 L Room Air 11/17/23 03:20 36.5 C 80 18 123/74 99 Room Air, CPAP all noted and reviewed including below (1) Sepsis Acute renal failure type: unspecified Sepsis acute organ dysfunction status: with acute organ dysfunction Sepsis type: sepsis due to unspecified organism Severe sepsis acute organ dysfunction type: acute renal failure Severe sepsis shock status: without septic shock Qualified Code(s): A41.9 - Sepsis, unspecified organism; R65.20 - Severe sepsis without septic shock; N17.9 - Acute kidney failure, unspecified (8) Venous stasis ulcers Venous stasis ulcer site: other part of lower leg Varicose vein presence: unspecified whether present Laterality: right Non-pressure ulcer stage: unspecified non-pressure ulcer stage Qualified Code(s): I83.018 - Varicose veins of right lower extremity with ulcer other part of lower leg; L97.819 - Non-pressure chronic ulcer of other part of right lower leg with unspecified severity (10) Hypertension Hypertension type: essential hypertension Qualified Code(s): I10 - Essential (primary) hypertension
[2023-11-17] MEDS: FERROUS SULFATE 325 MG TAB PO SCH (16:18)
[2023-11-18 07:16] LABS: Basophils # (auto) 0.04 K/uL (0.00-0.20); Basophils % (auto) 0.7 %; Eosinophils # (auto) 0.26 K/uL (0.00-0.50); Eosinophils % (auto) 4.4 %; Hematocrit (blood only) 22.9 % (42.0-52.0); Hemoglobin 7.7 g/dl (14.0-18.0); Immature Granulocytes # (auto) 0.07 K/uL (0.01-0.20); Immature Granulocytes % (auto) 1.2 %; Lymphocytes # (auto) 1.07 K/uL (1.20-3.40); Lymphocytes % (auto) 18.1 %; Mean Corpuscular Hgb Conc 33.6 g/dL (32.0-36.0); Mean Corpuscular Volume 92.3 fL (80.0-100.0); Mean Platelet Volume 9.9 fL (9.4-12.4); Monocytes # (auto) 0.54 K/uL (0.11-0.59); Monocytes % (auto) 9.1 %; Neutrophils # (auto) 3.94 K/uL (1.40-6.50); Neutrophils % (auto) 66.5 %; Nucleated RBC # (auto) 0.03 K/uL (0.00-0.12); Nucleated RBC % (auto) 0.5 %; Platelet Count 167 K/uL (130-400); RDW Coefficient of Variation 17.7 % (11.5-14.5); RDW Standard Deviation 59.8 fL (36.4-46.3); Red Blood Count 2.48 M/uL (4.70-6.10); White Blood Count 5.92 K/ul (4.8-10.8)
[2023-11-18 07:38] LABS: BUN Creatinine Ratio 24.9 (10-20); Calcium 8.5 mg/dl (8.6-10.3); Creatinine Clr Calc Pharmacy 50.7 ml/min; Est GFR (African American) 44.2 ml/min; Est GFR (Non-African American) 38.1 ml/min; Magnesium 1.6 mg/dl (1.7-2.4); Potassium 4.2 mmol/L (3.5-5.1)
[2023-11-18 07:53] LABS: Anisocytosis Present; Polychromasia 1+
--- NOTE | 2023-11-18 09:46 | Pharmacy Report ---
Pharmacy Glycemic Short Note 2 - Date of Service November 18, 2023 - Glycemic Short BSG Results (Last 24 hours): 11/17/23 11/17/23 11/17/23 11:21 16:23 20:51 Glucose POC Glucose 152 H 180 H 139 H 11/18/23 11/18/23 07:03 07:17 Glucose 122 H POC Glucose 122 H OUTPATIENT ANTIDIABETIC REGIMEN: * Lantus 20 units SC AM * Metformin 500 mg PO BID * Ozempic 2 mg SC every Saturday * HbA1c: 6.1% (11/15/23) ASSESSMENT: 11/17: * BSGs well controlled over last 24 hrs * 28 units SQ insulin given over last 24 hrs while tolerating a diet * Fasting BSG at goal this AM with 5 units basal on board (much less than outpt regimen) - will continue * Post-prandial BSGs well controlled with current Novolog CR/CR - will continue 11/16: * Received 36 units insulin yesterday, 5 basal + 31 bolus. BSGs were: 105-767-200-157 mg/dL. * Fasting BSG 120 mg/dL this AM. No change to basal. * Tightened carb ratio given trend up in postprandials. 11/15: * 68 yo M admitted on 11/13/23 secondary to fever and fall. Pharmacy has been co nsulted this AM to assist with inpatient glycemic management. Patient is a Type 2 diabetic as an outpatient. Please refer to outpatient regimen and most recent HbA1c above. * Patient's BSG was 69 mg/dL this AM which prompted consult but recheck 1 min later was 137 mg/dL making original result erroneous. Received 22 units of insulin yesterday (5 basal + 17 bolus) with BSGs being 945-169-550-212 mg/dL. * No changes necessary to current regimen. PLAN FOR INPATIENT GLYCEMIC CONTROL: * Hold outpatient oral diabetes medications * Basal insulin * Lantus 5 units SC HS * Bolus insulin * NovoLog per scale ACHS or Q6hrs while NPO * Goal Range: Low 110 mg/dL - High 140 mg/dL * Correction Factor: 20 mg/dL/unit * Nutritional / Prandial insulin per carb ratio of 1 unit per 6 grams CHO consumed
--- NOTE | 2023-11-18 10:55 | Nephrology Progress Note ---
Date of Service November 18, 2023 Assessment & Plan (1) Acute kidney injury superimposed on chronic kidney disease: Plan: plateau'd nonoliguric stage 1 ZAHRAA sec to Sepsis/bacteremia/GI bleed on background CKD. baseline creat 1.6--2.3 last 6 months. Most recent outpt creat 1.9 as of 10/2023. currently at 1.8 past 48 hrs. He is making urine ; chemistries acceptable In fact His renal function holding better than expected given bacteremia, sepsis and Severe Anemia. No further workup needed. We just have to be patient for renal recovery which will be pronlged and may even have new baseline. (2) Bacteremia due to Gram-negative bacteria: Plan: On Abx. Use Non nephrotoxic abx. (3) Compression fracture of lumbar vertebra: Plan: reviewed Course of events and Orthopedics note. (4) Acute on chronic anemia: Plan: Sec to GIB bleed and Sepsis and ZAHRAA Plan Case complexity high. reviewed GI, Orthopedics and ID note . Admission and Anticipated Discharge Date Admission Date: November 13, 2023 Results & Data Vital Signs (Past 12 Hours) Vital Signs Temp Pulse Pulse Resp BP Pulse Ox O2 Del Method 11/18/23 10:45 37.1 C 74 18 158/79 H 98 Room Air 11/18/23 07:14 36.2 C L 76 18 146/81 H 99 CPAP 11/18/23 03:28 36.6 C 75 20 146/74 H 100 CPAP 11/18/23 03:14 77 25 H 99 11/17/23 23:20 78 25 H 97 11/17/23 23:10 37.1 C 71 19 143/72 H 97 Room Air FiO2 11/18/23 10:45 11/18/23 07:14 11/18/23 03:28 11/18/23 03:14 11/17/23 23:20 21 11/17/23 23:10 Laboratory Results 11/18/23 07:03 11/18/23 07:03
--- NOTE | 2023-11-18 16:58 | Hospitalist Progress Note ---
Date of Service November 18, 2023 Assessment & Plan (1) Sepsis: (2) Cellulitis: (3) Acute on chronic anemia: (4) Fall: (5) Generalized weakness: (6) Acute kidney injury superimposed on chronic kidney disease: (7) Hypomagnesemia: (8) Venous stasis ulcers: (9) Diabetes mellitus, type II: (10) Hypertension: (11) Hyperlipidemia: (12) SPENCER on CPAP: Plan: Sepsis secondary to E. coli bacteremia UTI, possible pyelonephritis, E. coli Bilateral lower extremity cellulitis, infected chronic wounds, chronic lower extremity edema Suspect bilateral lower extremity cellulitis/wound to be the source of infection. Will obtain CT of the right leg to rule out underlying abscess. Started on empiric Zosyn and Vanco, follow-up on blood culture Wound care consult CT abdomen pelvis: 1. There is asymmetric right-sided perinephric stranding. Correlate with clinical findings and urinalysis. 2. There is an acute to subacute appearing superior plate compression deformity of L2 with mild loss of height. Correlate for point tenderness. 3. There are additional minimal age indeterminate superior compression deformities of T10, T11, and L1. These are new from 01/29/2023. Correlate clinically. 4. Nephrolithiasis. 5. Bladder distention. 6. Cholelithiasis. 7. Prominent iliac chain lymph nodes are similar to previous and likely reactive. 8. Hepatosplenomegaly. 9. Additional findings as above. CT lower extremity: 1. No acute bony abnormality is seen involving the right tibia or fibula. 2. Diffuse soft tissue edema and subcutaneous fluid is seen throughout the right leg. Correlate clinically. 3. There is no organized fluid collection seen on this unenhanced examination. 4. Extensive soft tissue calcification is again seen in the right leg. 11/13 Hemodynamically stable Blood cultures: Possible staph Repeat blood cultures: Pending Urine culture: Pending Daptomycin plus Zosyn ID consult Wound care consult 11/14 Remains stable Blood cultures: E. coli, coag neg staph Repeat blood cultures: Pending Urine culture: E. coli Transition to ceftriaxone IV per ID recommendation Echocardiogram: No significant valvular disease 11/15 Improving Second blood culture: Negative Continue IV ceftriaxone 11/16 Patient continues to improve Currently on IV ceftriaxone antibiotic day #5 ID recommends 14 days of treatment, transition to p.o. Cipro upon discharge 11/17 Improving Continue IV ceftriaxone day #6 Anticipate discharge tomorrow, transition to Cipro p.o. Possible upper GI bleed Acute blood loss anemia History of duodenal ulcer Underwent endoscopy in September 2023; found to have nonbleeding duodenal ulcer. He was recommended Prilosec which he is not taking. Also, recommended to be off aspirin. He is currently taking baby aspirin for primary prevention. Had CBC done 2 days ago; hemoglobin was around 9.4 Denies melena, hematemesis. Stop aspirin. IV Protonix twice daily Transfuse 1 unit of blood CBC tomorrow a.m. Given history of duodenal ulcer, presence of aspirin; will appreciate GIs input for possible endoscopy tomorrow AM. N.p.o. from midnight. 11/13 1 unit packed RBCs ordered Hemoglobin improved from 6.4, now 7.5 For EGD tomorrow Protonix 40 mg IV twice daily 11/14 Hemoglobin stable No recurrence of melena hematochezia EGD canceled in light of bacteremia Continue Protonix 40 mg IV twice daily Anemia panel ordered 11/15 Stable Hemoglobin stable at 7.5 11/16 Remains stable No recurrence of melena or hematochezia Hemoglobin stable Continue Protonix 40 mg IV twice daily Iron level 29 Start ferrous sulfate 11/17 Stable Continue Protonix Continue ferrous sulfate Outpatient follow-up with GI for possible EGD Acute kidney injury Suspect secondary to sepsis/GI bleed Started on NS at 100 cc/h Renal ultrasound Avoid nephrotoxic agent Hold torsemide, losartan 11/13 CT abdomen pelvis: Kidneys: The unenhanced kidneys are normal in size and without hydronephrosis. There is a 15 mm calculus in the right renal pelvis. A punctate nonobstructing calculus is in the left kidney. No ureteral stone is identified. Bilateral renal cysts measure up to 3.4 cm. There is asymmetric right-sided perinephric stranding. Creatinine 2.0, 2.4, 2.5 Continue gentle IV fluids Monitor closely 11/14 Creatinine remained stable around 2.4 Nephrology service consulted Stop IV fluids Torsemide on hold 11/15 crea improving, 2.1 Torsemide on hold 11/16 Creatinine continues to improve Currently 1.7 Resume torsemide tomorrow 11/17 Creatinine stable Resume torsemide Chronic conditions: Hyperlipidemiacontinue Lipitor Hypertensioncontinue Coreg, hold losartan Type 2 diabetes mellitushold metformin, on Lantus, NovoLog, pharmacy on consult. Anemia of chronic diseaseon erythropoietin every other week. History of DVTCoumadin was stopped August. History of DVTs in 1979; provoked. Will obtain bilateral LE duplex Ambulate is much as possible Full code DVT prophylaxisnone given possible chance of bleed, SCDs contraindicated due to bilateral lower extremity wounds. Encouraged to ambulate more, transfer to chairs, spend time in the chair during meals plan of care discussed with patient and his at the bedside in detail and at length all questions answered they are understanding, agreeable, comfortable with the plan of care (13) Gout: Admission and Anticipated Discharge Date Admission Date: November 13, 2023 Subjective Follow-up for E. coli bacteremia, etc. Seen sitting up in chair, comfortable, in good spirits States he continues to feel improved overall Ambulated in the hallways today, walked around twice No dizziness, leg weakness Gait overall steady no chest pain, dyspnea, palpitations, dizziness No abdominal pain, nausea vomiting, melena or hematochezia No other new symptoms Review of Systems Review of Systems: all noted and negative except for above Physical Exam Physical Exam: General- oriented x 3, not in distress, speaks in sentences with no effort or accessory muscle use Eyes- anicteric Neck- no JVD Lungs- clear breath sounds bilaterally, no crackles or wheezing Heart- normal rate, regular rhythm; no murmurs Abdomen- normal bowel sounds, nondistended, soft, no tenderness Extremities-grade 1 lower leg edema, no calf tenderness Neuro- alert, oriented x 3; no gross focal neurologic deficits Skin- warm & dry Results & Data Results & Data Vital Signs (Past 12 Hours) Vital Signs Temp Pulse Resp BP BP Pulse Ox O2 Del Method 11/18/23 15:09 36.7 C 73 18 147/78 H 100 Room Air 11/18/23 10:45 37.1 C 74 18 158/79 H 98 Room Air 11/18/23 07:14 36.2 C L 76 18 146/81 H 99 CPAP (1) Sepsis Acute renal failure type: unspecified Sepsis acute organ dysfunction status: with acute organ dysfunction Sepsis type: sepsis due to unspecified organism Severe sepsis acute organ dysfunction type: acute renal failure Severe sepsis shock status: without septic shock Qualified Code(s): A41.9 - Sepsis, unspecified organism; R65.20 - Severe sepsis without septic shock; N17.9 - Acute kidney failure, unspecified (8) Venous stasis ulcers Laterality: right Non-pressure ulcer stage: unspecified non-pressure ulcer stage Varicose vein presence: unspecified whether present Venous stasis ulcer site: other part of lower leg Qualified Code(s): I83.018 - Varicose veins of right lower extremity with ulcer other part of lower leg; L97.819 - Non-pressure chronic ulcer of other part of right lower leg with unspecified severity (10) Hypertension Hypertension type: essential hypertension Qualified Code(s): I10 - Essential (primary) hypertension
[2023-11-18] MEDS: TORSEMIDE 20 MG TAB PO SCH (18:00)
[2023-11-19 07:28] LABS: Basophils # (auto) 0.05 K/uL (0.00-0.20); Basophils % (auto) 0.7 %; Eosinophils # (auto) 0.25 K/uL (0.00-0.50); Eosinophils % (auto) 3.5 %; Hematocrit (blood only) 25.3 % (42.0-52.0); Hemoglobin 8.5 g/dl (14.0-18.0); Immature Granulocytes # (auto) 0.11 K/uL (0.01-0.20); Immature Granulocytes % (auto) 1.5 %; Lymphocytes # (auto) 1.25 K/uL (1.20-3.40); Lymphocytes % (auto) 17.6 %; Mean Corpuscular Hgb Conc 33.6 g/dL (32.0-36.0); Mean Corpuscular Volume 92.3 fL (80.0-100.0); Monocytes # (auto) 0.48 K/uL (0.11-0.59); Monocytes % (auto) 6.8 %; Neutrophils # (auto) 4.96 K/uL (1.40-6.50); Neutrophils % (auto) 69.9 %; Nucleated RBC # (auto) 0.05 K/uL (0.00-0.12); Nucleated RBC % (auto) 0.7 %; Platelet Count 202 K/uL (130-400); RDW Coefficient of Variation 17.8 % (11.5-14.5); RDW Standard Deviation 59.2 fL (36.4-46.3); Red Blood Count 2.74 M/uL (4.70-6.10)
[2023-11-19 07:44] LABS: BUN Creatinine Ratio 23.5 (10-20); Calcium 8.8 mg/dl (8.6-10.3); Creatinine Clr Calc Pharmacy 46.8 ml/min; Est GFR (African American) 40.1 ml/min; Est GFR (Non-African American) 34.6 ml/min; Magnesium 1.4 mg/dl (1.7-2.4)
[2023-11-19] MEDS: MAGNESIUM SULFATE / D5W 1 GM/100 ML BAG IV SCH (09:35)
[2023-11-19] MEDS: MAGNESIUM OXIDE 400 MG TAB PO SCH (10:24)
--- NOTE | 2023-11-19 11:32 | Nephrology Progress Note ---
Date of Service November 19, 2023 Assessment & Plan (1) Acute kidney injury superimposed on chronic kidney disease: Plan: ZAHRAA sec to Sepsis/bacteremia/GI bleed on background CKD. baseline creat 1.6--2.3 last 6 months. Most recent outpt creat 1.9 as of 10/2023. not oliguric In fact His renal function holding better than expected given the situation of bacteremia, sepsis and Severe Anemia. No further workup needed. Renal function plateau'd several days at baseline Will sign off NEPH D/C RECS: -hospital d/c appt w/ me in [facility] in 2-4 wks after d/c; renal nurse to order bmp, cbc, transferrin sat to be done up to 3 days before visit -hold OP losartan at d/c; ok to resume torsemide on day of d/c -recommend f/u w/ PCP w/in one wk of d/c w/ bmp at appt (2) Bacteremia due to Gram-negative bacteria: Plan: E coli bacteremia > On ceftriaxone; 14 days tx w/ cipro planned at d/c. Use Non nephrotoxic abx (3) Compression fracture of lumbar vertebra: Plan: ORTHO evaluated; for conservative care; ok to ambulate (4) Acute on chronic anemia: Plan: improving slowly; Sec to GIB bleed and Sepsis and ZAHRAA Admission and Anticipated Discharge Date Admission Date: November 13, 2023 Subjective seen on midday rounds. feels improved. ambulating w/ walker and PT. no sob, appetite good; feels leg wounds doing ok, no excessive edema Review of Systems 2 Review of Systems: All systems reviewed & are unremarkable except as noted in Subjective Physical Exam 2 Constitutional: well developed and well nourished Eyes: EOM intact bilaterally ENMT: Ears: no external ear abnormality Nose: no external nose abnormality Mouth: + dry oral mucous membranes Neck: no nuchal rigidity Respiratory: normal respiratory effort Auscultation: + diminished lung sounds Cardiovascular: Rate/Rhythm: regular rate and regular rhythm Extremities: + edema Gastrointestinal (Abdomen): Inspection/Auscultation: normal bowel sounds P ercussion/Palpation: abdomen soft; abdomen nontender Musculoskeletal: Extremities: strength 5/5 throughout Skin: no rashes, warm and dry BLE wounds wrapped Neurologic: cline, fluent speech, no tremor Results & Data Vital Signs (Past 12 Hours) Vital Signs Temp Pulse Pulse Resp BP BP Pulse Ox 11/19/23 07:18 36.8 C 82 18 124/67 98 11/19/23 04:44 71 24 99 11/19/23 03:13 36.5 C 68 20 169/83 H 100 11/18/23 23:34 73 21 96 11/18/23 23:32 36.3 C L 73 16 157/82 H 97 O2 Del Method FiO2 11/19/23 07:18 Room Air 11/19/23 04:44 21 11/19/23 03:13 BiPAP 11/18/23 23:34 21 11/18/23 23:32 BiPAP Laboratory Results 11/19/23 07:06 11/19/23 07:06
--- NOTE | 2023-11-19 15:39 | Hospitalist Progress Note ---
Date of Service November 19, 2023 Assessment & Plan (1) Sepsis: (2) Bacteremia due to Gram-negative bacteria: (3) Acute UTI (urinary tract infection): (4) Cellulitis: (5) Acute on chronic anemia: (6) Fall: (7) Generalized weakness: (8) Acute kidney injury superimposed on chronic kidney disease: (9) Hypomagnesemia: (10) Venous stasis ulcers: (11) Diabetes mellitus, type II: (12) Hypertension: (13) Hyperlipidemia: (14) SPENCER on CPAP: Plan: Sepsis secondary to E. coli bacteremia UTI, possible pyelonephritis, E. coli Bilateral lower extremity cellulitis, infected chronic wounds, chronic lower extremity edema CT abdomen pelvis: 1. There is asymmetric right-sided perinephric stranding. Correlate with clinical findings and urinalysis. 2. There is an acute to subacute appearing superior plate compression deformity of L2 with mild loss of height. Correlate for point tenderness. 3. There are additional minimal age indeterminate superior compression deformities of T10, T11, and L1. These are new from 01/29/2023. Correlate clin ically. 4. Nephrolithiasis. 5. Bladder distention. 6. Cholelithiasis. 7. Prominent iliac chain lymph nodes are similar to previous and likely reactive. 8. Hepatosplenomegaly. 9. Additional findings as above. CT lower extremity: 1. No acute bony abnormality is seen involving the right tibia or fibula. 2. Diffuse soft tissue edema and subcutaneous fluid is seen throughout the right leg. Correlate clinically. 3. There is no organized fluid collection seen on this unenhanced examination. 4. Extensive soft tissue calcification is again seen in the right leg. Blood cultures: E. coli, coag negative staph not lugdunensis Repeat blood cultures: Negative Urine culture: E. coli Initially placed on daptomycin plus Zosyn ID consulted, recommend to transition to ceftriaxone IV Wound care consulted Patient clinically improved Currently on IV ceftriaxone antibiotic day #6 ID recommends total of 14 days of antibiotics, transition to p.o. Cipro upon discharge-last November 27, 2023 Continue wound care Possible upper GI bleed Acute blood loss anemia History of duodenal ulcer Underwent endoscopy in September 2023; found to have nonbleeding duodenal ulcer. He was recommended Prilosec which he is not taking. Also, recommended to be off aspirin. He is currently taking baby aspirin for primary prevention. Hemoglobin admission was 7 Baseline is 9 Aspirin held Transfused with 1 unit of blood Hemoglobin improved from 6.4, now 7.5 GI consulted EGD planned but was canceled in light of bacteremia Continued Protonix 40 mg IV twice daily Anemia panel ordered-iron level 29 Fortunately, no recurrence of melena or hematochezia Hemoglobin has remained stable around 7-8 4/9 Stable Continue Protonix twice daily for 2 weeks, then daily Continue ferrous sulfate Monitor CBC closely while in rehab Outpatient follow-up with GI for possible EGD Acute kidney injury Suspect secondary to sepsis/GI bleed held torsemide, losartan given IV fluids CT abdomen pelvis: Kidneys: The unenhanced kidneys are normal in size and without hydronephrosis. There is a 15 mm calculus in the right renal pelvis. A punctate nonobstructing calculus is in the left kidney. No ureteral stone is identified. Bilateral renal cysts measure up to 3.4 cm. There is asymmetric right-sided perinephric strandin g. Nephrology service consulted Creatinine improved from 2.4, now back to baseline 1.7-1.8 Torsemide resumed Follow-up with nephrology service and outpatient Chronic conditions: Hyperlipidemiacontinue Lipitor Hypertensioncontinue Coreg, resume losartan upon discharge Type 2 diabetes mellitushold metformin, on Lantus, NovoLog, pharmacy on consult. Anemia of chronic diseaseon erythropoietin every other week History of DVTCoumadin was stopped August. History of DVTs in 1979; provoked. Will obtain bilateral LE duplex Ambulate is much as possible Full code DVT prophylaxisnone given possible chance of bleed, SCDs contraindicated due to bilateral lower extremity wounds. Encouraged to ambulate more, transfer to chairs, spend time in the chair during meals plan of care discussed with patient and his at the bedside in detail and at length all questions answered they are understanding, agreeable, comfortable with the plan of care (15) Gout: Admission and Anticipated Discharge Date Admission Date: November 13, 2023 Subjective Follow-up for E. coli bacteremia, pyelonephritis, etc. Seen resting in bed, comfortable, sitting up, in good spirits States he is feeling better overall Strength is continuing to return No abdominal pain, nausea vomiting, melena or hematochezia Not much leg pain No other new symptoms Review of Systems Review of Systems: all noted and negative except for above Physical Exam Physical Exam: General- oriented x 3, not in distress, speaks in sentences with no effort or accessory muscle use Eyes- anicteric Neck- no JVD Lungs- clear breath sounds bilaterally, no rales/wheezes Heart- normal rate, regular rhythm; no murmurs Abdomen- normal bowel sounds, nondistended, soft, nontender Extremities-grade 1 lower extremity edema, minimal erythema Dressing in place, no bleeding or discharge Neuro- alert, oriented x 3; no gross focal neurologic deficits Skin- warm & dry Results & Data Results & Data Vital Signs (Past 12 Hours) Vital Signs Temp Pulse Pulse Resp BP Pulse Ox O2 Del Method 11/19/23 15:30 36.4 C L 69 16 138/71 99 Room Air 11/19/23 11:41 37.0 C 78 18 157/81 H 99 Room Air 11/19/23 07:18 36.8 C 82 18 124/67 98 Room Air 11/19/23 04:44 71 24 99 FiO2 11/19/23 15:30 11/19/23 11:41 11/19/23 07:18 11/19/23 04:44 21 all noted and reviewed including below (1) Sepsis Acute renal failure type: unspecified Sepsis acute organ dysfunction status: with acute organ dysfunction Sepsis type: sepsis due to unspecified organism Severe sepsis acute organ dysfunction type: acute renal failure Severe sepsis shock status: without septic shock Qualified Code(s): A41.9 - Sepsis, unspecified organism; R65.20 - Severe sepsis without septic shock; N17.9 - Acute kidney failure, unspecified (10) Venous stasis ulcers Laterality: right Non-pressure ulcer stage: unspecified non-pressure ulcer stage Varicose vein presence: unspecified whether present Venous stasis ulcer site: other part of lower leg Qualified Code(s): I83.018 - Varicose veins of right lower extremity with ulcer other part of lower leg; L97.819 - Non-pressure chronic ulcer of other part of right lower leg with unspecified severity (12) Hypertension Hypertension type: essential hypertension Qualified Code(s): I10 - Essential (primary) hypertension
[2023-11-19] MEDS: PANTOprazole 40 MG TAB PO SCH (21:07)
[2023-11-20 06:33] LABS: BUN Creatinine Ratio 28.4 (10-20); Calcium 8.7 mg/dl (8.6-10.3); Creatinine Clr Calc Pharmacy 62.4 ml/min; Est GFR (Non-African American) 41.4 ml/min; Magnesium 1.6 mg/dl (1.7-2.4); Potassium 3.7 mmol/L (3.5-5.1)
--- NOTE | 2023-11-20 11:45 | Pharmacy Report ---
Pharmacy Glycemic Sign Off Nt - Date of Service November 20, 2023 - Assessment & Plan ASSESSMENT: * Pharmacy was consulted by Dr Briones on 11/15/23 for glycemic control and to write orders per [facility] inpatient glycemic control protocol. * Major changes made by pharmacy to antidiabetic regimen include: * Tightened carbohydrate coverage * Patient has been receiving/requiring ~30 units of insulin per day for adequate glycemic control * BSGs ranging 120-180 mg/dl * Regimen has only required minor adjustments over the past 72 hrs to achieve this level of control * Do not anticipate further changes in patient status that would quickly deteriorate glycemic control (i.e. patient to be NPO for upcoming procedure, steroids tapering, starting tube feedings, etc). * Please see recommendations for outpatient antidiabetic regimen below. PLAN FOR INPATIENT GLYCEMIC CONTROL: No changes needed to current regimen. * Continue basal insulin with Lantus 5 units SQ HS * Continue NovoLog per scale ACHS/Q6hrs while NPO * Goal range = 110-140 mg/dl * CF = 20 mg/dl/unit * CR = 1 unit for ever 6 g CHO consumed * Pharmacy is signing off of glycemic consult and will no longer be making adjustments to inpatient regimen. Please feel free to re-consult if needed. Thank you.
--- NOTE | 2023-11-20 13:39 | Hospitalist Progress Note ---
Date of Service November 20, 2023 Assessment & Plan (1) Sepsis: (2) Bacteremia due to Gram-negative bacteria: (3) Acute UTI (urinary tract infection): (4) Cellulitis: (5) Acute on chronic anemia: (6) Fall: (7) Generalized weakness: (8) Acute kidney injury superimposed on chronic kidney disease: (9) Hypomagnesemia: (10) Venous stasis ulcers: (11) Diabetes mellitus, type II: (12) Hypertension: (13) Hyperlipidemia: (14) SPENCER on CPAP: Plan: Sepsis secondary to E. coli bacteremia UTI, possible pyelonephritis, E. coli Bilateral lower extremity cellulitis, infected chronic wounds, chronic lower extremity edema Patient presented with fever, fall, weakness. CT abdomen pelvis: 1. There is asymmetric right-sided perinephric stranding. Correlate with clinical findings and urinalysis. 2. There is an acute to subacute appearing superior plate compression deformity of L2 with mild loss of height. Correlate for point tenderness. 3. There are additional minimal age indeterminate superior compression deformities of T10, T11, and L1. These are new from 01/29/2023. Correlate clinically. 4. Nephrolithiasis. 5. Bladder distention. 6. Cholelithiasis. 7. Prominent iliac chain lymph nodes are similar to previous and likely reactive. 8. Hepatosplenomegaly. 9. Additional findings as above. CT lower extremity: 1. No acute bony abnormality is seen involving the right tibia or fibula. 2. Diffuse soft tissue edema and subcutaneous fluid is seen throughout the right leg. Correlate clinically. 3. There is no organized fluid collection seen on this unenhanced examination. 4. Extensive soft tissue calcification is again seen in the right leg. Blood cultures: E. coli, coag negative staph not lugdunensis Repeat blood cultures: Negative Urine culture: E. coli Initially placed on daptomycin plus Zosyn ID consulted, recommend to transition to ceftriaxone IV. ID recommends total of 14 days of antibiotics, transition to p.o. Cipro upon discharge-last November 27, 2023 Wound care on board Burns removed Possible upper GI bleed Acute blood loss anemia History of duodenal ulcer Underwent endoscopy in September 2023; found to have nonbleeding duodenal ulcer. He was recommended Prilosec which he is not taking. Also, recommended to be off aspirin. He is currently taking baby aspirin for primary prevention. Aspirin stopped Transfused with 1 unit of blood Globin improved and is stable. GI consulted EGD planned but was canceled in light of bacteremia Continued Protonix 40 mg IV twice daily, then daily Anemia panel ordered-iron level 29 Acute kidney injury, resolved Suspect secondary to sepsis/GI bleed CT abdomen pelvis: Kidneys: The unenhanced kidneys are normal in size and without hydronephrosis. There is a 15 mm calculus in the right renal pelvis. A punctate nonobstructing calculus is in the left kidney. No ureteral stone is identified. Bilateral renal cysts measure up to 3.4 cm. There is asymmetric right-sided perinephric stranding. Nephrology service consulted Creatinine improved from 2.4, now back to baseline 1.7-1.8 Torsemide resumed Chronic conditions: Hyperlipidemiacontinue Lipitor Hypertensioncontinue Coreg, losartan on hold Type 2 diabetes mellitushold metformin, on Lantus, NovoLog, pharmacy on consult. Anemia of chronic diseaseon erythropoietin every other week History of DVTCoumadin was stopped August. History of DVTs in 1979; provoked. Duplex negative Ambulate is much as possible Full code DVT prophylaxiswill start DVT prophylaxis with heparin Time spent evaluating patient, direct bedside care, chart review, placing orders, interpretation of diagnostic studies, discussion with consultants, patient, and family members, as well as other required patient management activities is 50 minutes Please note the above document was generated using voice recognition software. It may contain grammatical, syntax or spelling errors. Any formal questions or concerns about the content, text or information contained within the body of this dictation should be directly addressed to the provider for clarification (15) Gout: Admission and Anticipated Discharge Date Admission Date: November 13, 2023 Subjective Seen and examined at bedside. He reports that he is feeling much better. Reports that his weakness has resolved. No significant events overnight Review of Systems Review of Systems: All systems reviewed & are unremarkable except as noted in Subjective Physical Exam Physical Exam: General- oriented x 3, not in distress, speaks in sentences with no effort or accessory muscle use Lungs- clear breath sounds bilaterally, no rales/wheezes Heart- normal rate, regular rhythm; no murmurs Abdomen- normal bowel sounds, nondistended, soft, nontender Extremities-grade 1 lower extremity edema, minimal erythema Dressing in place, no bleeding or discharge Neuro- alert, oriented x 3; no gross focal neurologic deficits Skin- warm & dry Results & Data Results & Data Vital Signs (Past 12 Hours) Vital Signs Temp Pulse Pulse Resp BP Pulse Ox O2 Del Method 11/20/23 11:29 36.4 C L 80 20 144/71 H 99 Room Air 11/20/23 09:50 95 H 11/20/23 08:00 99 H 11/20/23 07:44 36.3 C L 71 18 138/71 97 Room Air 11/20/23 03:06 36.3 C L 79 18 162/77 H 96 Room Air (1) Sepsis Acute renal failure type: unspecified Sepsis acute organ dysfunction status: with acute organ dysfunction Sepsis type: sepsis due to unspecified organism Severe sepsis acute organ dysfunction type: acute renal failure Severe sepsis shock status: without septic shock Qualified Code(s): A41.9 - Sepsis, unspecified organism; R65.20 - Severe sepsis without septic shock; N17.9 - Acute kidney failure, unspecified (10) Venous stasis ulcers Venous stasis ulcer site: other part of lower leg Varicose vein presence: unspecified whether present Laterality: right Non-pressure ulcer stage: unspecified non-pressure ulcer stage Qualified Code(s): I83.018 - Varicose veins of right lower extremity with ulcer other part of lower leg; L97.819 - Non-pressure chronic ulcer of other part of right lower leg with unspecified severity (12) Hypertension Hypertension type: essential hypertension Qualified Code(s): I10 - Essential (primary) hypertension
[2023-11-20] MEDS: HEPARIN SOD 5,000 UNIT/0.5 ML VIAL SQ SCH (21:57)
[2023-11-21 06:22] LABS: Hematocrit (blood only) 26.8 % (42.0-52.0); Hemoglobin 8.8 g/dl (14.0-18.0); Mean Corpuscular Hemoglobin 30.4 pg (25.0-34.0); Mean Corpuscular Hgb Conc 32.8 g/dL (32.0-36.0); Mean Corpuscular Volume 92.7 fL (80.0-100.0); Mean Platelet Volume 9.8 fL (9.4-12.4); Nucleated RBC # (auto) 0.06 K/uL (0.00-0.12); Nucleated RBC % (auto) 0.8 %; Platelet Count 254 K/uL (130-400); RDW Standard Deviation 59.7 fL (36.4-46.3); Red Blood Count 2.89 M/uL (4.70-6.10); White Blood Count 7.88 K/ul (4.8-10.8)
[2023-11-21 06:33] LABS: BUN Creatinine Ratio 27.7 (10-20); Calcium 9.1 mg/dl (8.6-10.3); Creatinine Clr Calc Pharmacy 52.4 ml/min; Est GFR (African American) 38.7 ml/min; Est GFR (Non-African American) 33.4 ml/min; Potassium 4.1 mmol/L (3.5-5.1)
[2023-11-21 07:32] LABS: Basophils # (auto) 0.05 K/uL (0.00-0.20); Basophils % (auto) 0.6 %; Eosinophils # (auto) 0.23 K/uL (0.00-0.50); Eosinophils % (auto) 2.9 %; Immature Granulocytes # (auto) 0.11 K/uL (0.01-0.20); Immature Granulocytes % (auto) 1.4 %; Lymphocytes # (auto) 1.77 K/uL (1.20-3.40); Lymphocytes % (auto) 22.5 %; Monocytes # (auto) 0.58 K/uL (0.11-0.59); Monocytes % (auto) 7.4 %; Neutrophils # (auto) 5.14 K/uL (1.40-6.50); Neutrophils % (auto) 65.2 %; Polychromasia 1+; Rouleaux 1+
--- NOTE | 2023-11-21 13:29 | Hospitalist Progress Note ---
Date of Service November 21, 2023 Assessment & Plan (1) Sepsis: (2) Bacteremia due to Gram-negative bacteria: (3) Acute UTI (urinary tract infection): (4) Cellulitis: (5) Acute on chronic anemia: (6) Fall: (7) Generalized weakness: (8) Acute kidney injury superimposed on chronic kidney disease: (9) Hypomagnesemia: (10) Venous stasis ulcers: (11) Diabetes mellitus, type II: (12) Hypertension: (13) Hyperlipidemia: (14) SPENCER on CPAP: Plan: Sepsis secondary to E. coli bacteremia UTI, possible pyelonephritis, E. coli Bilateral lower extremity cellulitis, infected chronic wounds, chronic lower extremity edema Patient presented with fever, fall, weakness. CT abdomen pelvis: 1. There is asymmetric right-sided perinephric stranding. Correlate with clinical findings and urinalysis. 2. There is an acute to subacute appearing superior plate compression deformity of L2 with mild loss of height. Correlate for point tenderness. 3. There are additional minimal age indeterminate superior compression deformities of T10, T11, and L1. These are new from 01/29/2023. Correlate clinically. 4. Nephrolithiasis. 5. Bladder distention. 6. Cholelithiasis. 7. Prominent iliac chain lymph nodes are similar to previous and likely reactive. 8. Hepatosplenomegaly. 9. Additional findings as above. CT lower extremity: 1. No acute bony abnormality is seen involving the right tibia or fibula. 2. Diffuse soft tissue edema and subcutaneous fluid is seen throughout the right leg. Correlate clinically. 3. There is no organized fluid collection seen on this unenhanced examination. 4. Extensive soft tissue calcification is again seen in the right leg. Blood cultures: E. coli, coag negative staph not lugdunensis Repeat blood cultures: Negative Urine culture: E. coli Initially placed on daptomycin plus Zosyn ID consulted, recommend to transition to ceftriaxone IV. ID recommends total of 14 days of antibiotics, transition to p.o. Cipro upon discharge-last November 27, 2023 Wound care on board Burns removed; for trial of void successful Possible upper GI bleed Acute blood loss anemia History of duodenal ulcer Underwent endoscopy in September 2023; found to have nonbleeding duodenal ulcer. He was recommended Prilosec which he is not taking. Also, recommended to be off aspirin. He is currently taking baby aspirin for primary prevention. Aspirin stopped Transfused with 1 unit of blood hemoglobin improved and is stable. GI consulted EGD planned but was canceled in light of bacteremia Continued Protonix 40 mg IV twice daily, then daily Anemia panel ordered-iron level 29 Acute kidney injury, resolved Suspect secondary to sepsis/GI bleed CT abdomen pelvis: Kidneys: The unenhanced kidneys are normal in size and without hydronephrosis. There is a 15 mm calculus in the right renal pelvis. A punctate nonobstructing calculus is in the left kidney. No ureteral stone is identified. Bilateral renal cysts measure up to 3.4 cm. There is asymmetric right-sided perinephric stranding. Nephrology service consulted Creatinine improved from 2.4, now back to baseline 1.8-2.0 Torsemide on hold for today Chronic conditions: Hyperlipidemiacontinue Lipitor Hypertensioncontinue Coreg, losartan on hold Type 2 diabetes mellitushold metformin, on Lantus, NovoLog, pharmacy on consult. Anemia of chronic diseaseon erythropoietin every other week History of DVTCoumadin was stopped August. History of DVTs in 1979; provoked. Duplex negative Ambulate is much as possible Full code DVT prophylaxis heparin Please note the above document was generated using voice recognition software. It may contain grammatical, syntax or spelling errors. Any formal questions or concerns about the content, text or information contained within the body of this dictation should be directly addressed to the provider for clarification (15) Gout: Admission and Anticipated Discharge Date Admission Date: November 13, 2023 Subjective Patient seen and examined at bedside. Comfortable; not in distress. Denies fever, chills, chest pain, shortness of breath, abdominal pain or urinary symptoms. No significant overnight events Review of Systems Review of Systems: All systems reviewed & are unremarkable except as noted in Subjective Physical Exam Physical Exam: General- oriented x 3, not in distress, speaks in sentences with no effort or accessory muscle use Lungs- clear breath sounds bilaterally, no rales/wheezes Heart- normal rate, regular rhythm; no murmurs Abdomen- normal bowel sounds, nondistended, soft, nontender Extremities-grade 1 lower extremity edema, minimal erythema Dressing in place, no bleeding or discharge Neuro- alert, oriented x 3; no gross focal neurologic deficits Skin- warm & dry Results & Data Results & Data Vital Signs (Past 12 Hours) Vital Signs Temp Pulse Pulse Resp BP BP Pulse Ox 11/21/23 11:34 36.9 C 75 18 135/81 99 11/21/23 08:09 75 11/21/23 08:07 36.9 C 81 20 118/74 98 11/21/23 02:34 36.6 C 86 20 135/76 96 O2 Del Method 11/21/23 11:34 Room Air 11/21/23 08:09 11/21/23 08:07 Room Air 11/21/23 02:34 Room Air (1) Sepsis Acute renal failure type: unspecified Sepsis acute organ dysfunction status: with acute organ dysfunction Sepsis type: sepsis due to unspecified organism Severe sepsis acute organ dysfunction type: acute renal failure Severe sepsis shock status: without septic shock Qualified Code(s): A41.9 - Sepsis, unspecified organism; R65.20 - Severe sepsis without septic shock; N17.9 - Acute kidney failure, unspecified (10) Venous stasis ulcers Venous stasis ulcer site: other part of lower leg Varicose vein presence: unspecified whether present Laterality: right Non-pressure ulcer stage: unspecified non-pressure ulcer stage Qualified Code(s): I83.018 - Varicose veins of right lower extremity with ulcer other part of lower leg; L97.819 - Non-pressure chronic ulcer of other part of right lower leg with unspecified severity (12) Hypertension Hypertension type: essential hypertension Qualified Code(s): I10 - Essential (primary) hypertension
[2023-11-22 06:02] LABS: BUN Creatinine Ratio 32.4 (10-20); Calcium 9.2 mg/dl (8.6-10.3); Creatinine Clr Calc Pharmacy 47.3 ml/min; Est GFR (African American) 34.5 ml/min; Est GFR (Non-African American) 29.8 ml/min; Potassium 4.2 mmol/L (3.5-5.1)
[2023-11-22] MEDS: ATORVASTATIN 20 MG TAB PO SCH (08:05)
--- NOTE | 2023-11-22 13:05 | Discharge Summary ---
Date of Service November 22, 2023 Admission HPI Per Admitting Provider Patient is 68 year old male with PMH HTN, dyslipidemia, DM II, CKD III, gout, SPENCER, anemia chronic disease, chronic wounds and others listed below presented to ER with c/o fall. History obtained from patient, , and outpatient chart review. Patient states at 3:30am today he ambulated to bathroom. When tried to get up he felt weak and fell on way to bathroom. Denies hitting head. Had some pain to right hip. He tried to get off floor and was unable to. At 8:30am this morning found him on floor. Patient states has been having chills past couple of days. Today feeling hot and worse chills. States urine has foul odor. Denies dysuria, hematuria or urinary frequency. Is on epoetin every 2 weeks for chronic anemia with last dose yesterday. Patient states fell yesterday onto buttocks and has pain to tailbone. States that has been having loose stools that are brown. Has not notice melena or hematochezia. Yesterday vomited once and vomited once today. Denies any noted hematemesis or coffee ground emesis. States after vomited coughed but otherwise denies prior cough. Chronic wounds to BLE. Previously was following with wound clinic, however now helping to apply dressings. Patient states leg wounds appear to him how they are at baseline. History of hospitalization 08/2023 at [facility] for cellulitis and concern for GI bleed. Coumadin was held. He was on Coumadin for H/O DVT. It was recommended to discontinue aspirin. He was discharged on PPI however patient discontinued as he felt it was making him sick. Patient has continued taking aspirin 81mg daily but states no formal diagnosis for daily aspirin. Denies diaphoresis, JORDAN, dizziness, syncope, vision changes, neck pain, CP, SOB, palpitations, sore throat, rhinorrhea, abdominal pain, increased extremity edema, other rashes. Per outpatient chart review: 09/26/23: EGD: gastritis, non-obstructing non-bleeding duodenal ulcers with no stigmata of bleeding 02/09/22: colonoscopy: 6 mm polyp sigmoid colon, non-bleeding internal hemorrhoids 11/11/23 Hgb: 9.4. 10/14/23 Cr: 1.9 Admission Exam Per Admitting Provider Constitutional: Appears tired and fatigue, alert oriented x 3. Obese Respiratory: Bilateral vesicular breath sound Cardiovascular: RRR, no murmur, no edema Vessels: no JVD or carotid bruit Abdomen: Soft nontender Musculoskeletal: Bilateral lower extremity red, swollen with increased warmth. Multiple wound openings present in both extremities. Foul-smelling discharge. Neurologic: PERRL, EOMI, accommodation nl, no face palsy, no dysarthria CN's II- XI intact bilaterally and moves all extremities Psychiatric: A+Ox3, euthymic affect Principal Diagnosis Sepsis secondary to E. coli bacteremia UTI, possible pyelonephritis, E. coli Bilateral lower extremity cellulitis, infected chronic wounds, chronic lower extremity edema Discharge Exam General- oriented x 3, not in distress, speaks in sentences with no effort or accessory muscle use Lungs- clear breath sounds bilaterally, no rales/wheezes Heart- normal rate, regular rhythm; no murmurs Abdomen- normal bowel sounds, nondistended, soft, nontender Extremities-grade 1 lower extremity edema, minimal erythema Dressing in place, no bleeding or discharge Neuro- alert, oriented x 3; no gross focal neurologic deficits Skin- warm & dry Discharge Data Allergies Allergy/AdvReac Type Severity Reaction Status Date / Time No Known Allergies Allergy Verified 11/13/23 12:46 Consultations 11/13/23 15:43 ED Decision to Admit Stat 11/13/23 15:53 Consult Gastroenterology Routine 11/14/23 07:48 Consult Infectious Diseases Routine 11/14/23 08:14 Consult Orthopedic Surgery Routine 11/15/23 09:23 Consult Nephrology Routine Procedures Performed Operation Date: 11/15/23 16:30 <No data on this case meets the specified criteria> Ordered Studies 11/13/23 11:20 CT head/brain wo con Stat 11/13/23 15:23 CT abd pelvis wo con Stat 11/13/23 15:26 CT leg [CT tib/fib RT wo con] Urgent US venous doppler LE Urgent Hospital Course (1) Sepsis: (2) Bacteremia due to Gram-negative bacteria: (3) Acute UTI (urinary tract infection): (4) Cellulitis: (5) Acute on chronic anemia: (6) Fall: (7) Generalized weakness: (8) Acute kidney injury superimposed on chronic kidney disease: (9) Hypomagnesemia: (10) Venous stasis ulcers: (11) Diabetes mellitus, type II: (12) Hypertension: (13) Hyperlipidemia: (14) SPENCER on CPAP: Sepsis secondary to E. coli bacteremia UTI, possible pyelonephritis, E. coli Bilateral lower extremity cellulitis, infected chronic wounds, chronic lower extremity edema Patient presented with fever, fall, weakness. CT abdomen pelvis: 1. There is asymmetric right-sided perinephric stranding. Correlate with clinical findings and urinalysis. 2. There is an acute to subacute appearing superior plate compression deformity of L2 with mild loss of height. Correlate for point tenderness. 3. There are additional minimal age indeterminate superior compression deformities of T10, T11, and L1. These are new from 01/29/2023. Correlate clinically. 4. Nephrolithiasis. 5. Bladder distention. 6. Cholelithiasis. 7. Prominent iliac chain lymph nodes are similar to previous and likely reactive. 8. Hepatosplenomegaly. 9. Additional findings as above. CT lower extremity: 1. No acute bony abnormality is seen involving the right tibia or fibula. 2. Diffuse soft tissue edema and subcutaneous fluid is seen throughout the right leg. Correlate clinically. 3. There is no organized fluid collection seen on this unenhanced examination. 4. Extensive soft tissue calcification is again seen in the right leg. Blood cultures: E. coli, Repeat blood cultures: Negative Urine culture: E. coli Initially placed on daptomycin plus Zosyn ID consulted, recommend to transition to ceftriaxone IV. ID recommends total of 14 days of antibiotics, transition to p.o. Cipro upon discharge-last November 27, 2023. QTc reviewed at discharge; prolonged. Patient was discharged on Augmentin for 3 more days to complete the treatment course Patient was discharged to rehab Wound care instructions provided at discharge. Possible upper GI bleed Acute blood loss anemia History of duodenal ulcer Underwent endoscopy in September 2023; found to have nonbleeding duodenal ulcer. He was recommended Prilosec which he was not taking. Also, recommended to be off aspirin. He is currently taking baby aspirin for primary prevention. Aspirin stopped Transfused with 1 unit of blood hemoglobin improved and is stable. GI consulted EGD planned but was canceled in light of bacteremia Discharge on Protonix 40 mg twice daily Acute kidney injury, resolved Suspect secondary to sepsis/GI bleed CT abdomen pelvis: Kidneys: The unenhanced kidneys are normal in size and without hydronephrosis. There is a 15 mm calculus in the right renal pelvis. A punctate nonobstructing calculus is in the left kidney. No ureteral stone is identified. Bilateral renal cysts measure up to 3.4 cm. There is asymmetric right-sided perinephric stranding. Nephrology service consulted Creatinine improved from 2.4, now back to baseline 1.8-2.0 At discharge, recommended to hold torsemide for 3 days; repeat BMP prior to resuming torsemide Please note the above document was generated using voice recognition software. It may contain grammatical, syntax or spelling errors. Any formal questions or concerns about the content, text or information contained within the body of this dictation should be directly addressed to the provider for clarification (15) Gout: Total Time Total Time Spent Total Time Spent (In Minutes): 45 Total Time Includes: Examination of the Patient, Discharge Planning, Medication Reconciliation, Communication With Other Providers and Other Discharge Plan Discharge Items Patient Disposition: Transfer [facility] Reason For Visit: FALL, FEVER, ANEMIA Discharge Diagnosis: Sepsis secondary to E. coli bacteremia UTI, possible pyelonephritis, E. coli Bilateral lower extremity cellulitis, infected chronic wounds, chronic lower extremity edema Activity: Resume your previous activity Non-emergency contact: Primary Care Provider Call non-emergency contact if: you have any medication questions and your symptoms worsen Follow-up/Referrals: Nancy Ryan DO [Primary Care Provider] - Diet: Regular Addtl Attending Provider Instructions: You were admitted to the hospital due to gram-negative sepsis. You are treated with IV antibiotics during the hospitalization. You are prescribed 3 more days of antibiotics to complete the treatment. Following medication changes are done: Stop taking aspirin given the history of duodenal ulcer Start taking Protonix 40 mg twice daily for 1 month. After that, start taking it once a day Stop taking metformin due to increased risks of toxicity with chronic kidney disease. Stop taking losartan. Allopurinol dose is decreased to 100 mg once a day due to your kidney function. Glargine dose is decreased to 10 units in the morning. Your HbA1c was just 6.1%. Hold Torsemide for next 3 days. Repeat BMP on November 25, 2023. If His creatinine has improve, resume Torsemide. Wound care instructions; To the open areas of lower legs; clean with saline. Cover open areas with Aquacel AG overlapping wound and 1 inch of wound periphery, cover with ABD and secure with Kerlix. Change every day Pending Studies at Discharge: No Stand-Alone Forms: My [facility] Skilled Items Patient informed of condition?: Yes DNR: No Discharge Level of Care: Skilled Communicable Disease: No Discharge Prognosis: Stable Lines: None Urinary Catheter: No Medications and DC Order Prescriptions: New ferrous sulfate 325 mg (65 mg iron) Tablet,Delayed Release (Dr/Ec) 325 mg PO BIDM Qty: 60 0RF acetaminophen 325 mg Tablet 650 mg PO Q4H PRN (Reason: fever or pain) 30 Days Qty: 60 0RF polyethylene glycol 3350 [Miralax] 17 gram Powder In Packet 17 g PO DAILY Qty: 30 0RF magnesium oxide 400 mg (241.3 mg magnesium) Tablet 400 mg PO BID 60 Days Qty: 120 0RF allopurinol 100 mg tablet 100 mg PO DAILY Qty: 30 0RF pantoprazole [Protonix] 40 mg tablet,delayed release (DR/EC) 40 mg PO BID 30 Days Qty: 60 0RF amoxicillin-pot clavulanate 875-125 mg tablet 1 tab PO BID 3 Days Qty: 6 0RF Continued Ozempic 2 mg/dose (8 mg/3 mL) pen injector 2 mg SUBCUT WK Rx Instructions: saturdays multivitamin Tablet 1 tab PO QAM Qty: 30 0RF ascorbic acid (vitamin C) 1,000 mg tablet 1 g PO QAM Qty: 30 0RF carvedilol 6.25 mg tablet 6.25 mg PO BID Qty: 60 0RF Rx Instructions: must administer with a meal/food atorvastatin 20 mg tablet 20 mg PO QAM Qty: 30 0RF torsemide 20 mg tablet 20 mg PO QAM 30 Days Qty: 30 0RF cyanocobalamin (vitamin B-12) 1,000 mcg tablet 1,000 mcg PO QAM Qty: 30 0RF dorzolamide-timolol 22.3-6.8 mg/mL drops 1 drp OPB BID Qty: 10 0RF Rx Instructions: morning and 5 pm ammonium lactate 12 % cream 1 applic TOPICAL UD PRN (Reason: Skin Irritation) Qty: 280 0RF Procrit 20,000 unit/2 mL Solution 20,000 unit subcut UD Qty: 8 0RF Rx Instructions: Every 14 days as directed on Tuesdays omega 4-hqd-vjt-fish oil 100-160-1,000 mg capsule 1 cap PO QAM Qty: 30 0RF Rhopressa 0.02 % drops 1 drp OPL HS Qty: 2.5 0RF Changed insulin glargine 100 unit/mL (3 mL) insulin pen 10 unit SQ QAM Qty: 15 0RF Rx Instructions: take daily in morning before breakfast Discontinued metformin 500 mg tablet 500 mg PO BID aspirin [Adult Aspirin Regimen] 81 mg tablet,delayed release (DR/EC) 81 mg PO QAM allopurinol 100 mg tablet See Rx Instructions .ROUTE .COMPLEX Rx Instructions: Take 100mg w/ 300mg to equal 400mg by mouth every morning. allopurinol 300 mg Tablet See Rx Instructions .ROUTE .COMPLEX Patient Comments: 300 MG TABLET AND A 100 MG TABLET Rx Instructions: Take 300mg w/ 100mg to equal 400mg by mouth every morning. losartan 25 mg Tablet 25 mg PO QAM Discharge Orders: Discharge Order (Routine); Ordered 11/22/23 Ordered By: Eugenio Stevenson/Other Patient Handouts: Managing Type 2 Diabetes Admission Data Admit Date/Time: 11/13/23 15:25 Attending Provider: Eugenio Zarco Admit Provider: Eugenio Zarco Primary Care Provider: Nancy Ryan Other Providers: Eugenio Zarco; Harry Ramirez; Kee Garcia; Ana Dempsey; David Anderson II; Beckie Gonzales; Prabhaakr Tineo; Steve Smith; Andrei Bales; Jass Dave; Darwin Henriquez; [employer]; [facility] Other Interventions: Discharge Summary Assessment (RN) Last Done: 11/22/23 09:51
--- NOTE | 2023-11-22 21:54 | Electrocardiogram Report ---
Test Reason : Blood Pressure : / mmHG Vent. Rate : 074 BPM Atrial Rate : 074 BPM P-R Int : 166 ms QRS Dur : 098 ms QT Int : 436 ms P-R-T Axes : 032 016 046 degrees QTc Int : 483 ms Poor data quality, interpretation may be adversely affected Normal sinus rhythm Prolonged QT Abnormal ECG When compared with ECG of 15-NOV-2023 06:36, Premature ventricular complexes are no longer Present Confirmed by Anuj Salazar ([id number]) on 11/22/2023 9:53:55 PM Referred By: REFERRED SELF Confirmed By:Anuj Salazar
== END 2023-11-22 11:14 | DRG 872 ==
LOC: ED 10:37 → EDINP 15:25 → SUATTDRO 15:25 → EDINP 15:54 → 2S 11-14 10:15

== ENCOUNTER 2024-05-15 13:19 | Inpatient (IN) ==
[2024-05-15 16:28] LABS: Basophils # (auto) 0.04 K/uL (0.00-0.20); Basophils % (auto) 0.4 %; Eosinophils # (auto) 0.04 K/uL (0.00-0.50); Eosinophils % (auto) 0.4 %; Hematocrit (blood only) 27.5 % (42.0-52.0); Hemoglobin 9.1 g/dl (14.0-18.0); Immature Granulocytes # (auto) 0.04 K/uL (0.01-0.20); Immature Granulocytes % (auto) 0.4 %; Lymphocytes # (auto) 0.69 K/uL (1.20-3.40); Lymphocytes % (auto) 6.3 %; Mean Corpuscular Hemoglobin 28.6 pg (25.0-34.0); Mean Corpuscular Hgb Conc 33.1 g/dL (32.0-36.0); Mean Corpuscular Volume 86.5 fL (80.0-100.0); Mean Platelet Volume 9.3 fL (9.4-12.4); Monocytes # (auto) 0.78 K/uL (0.11-0.59); Monocytes % (auto) 7.1 %; Neutrophils # (auto) 9.36 K/uL (1.40-6.50); Neutrophils % (auto) 85.4 %; Platelet Count 204 K/uL (130-400); RDW Coefficient of Variation 15.8 % (11.5-14.5); RDW Standard Deviation 50.4 fL (36.4-46.3); Red Blood Count 3.18 M/uL (4.70-6.10); White Blood Count 10.95 K/ul (4.8-10.8)
--- NOTE | 2024-05-15 16:29 | XRay Report ---
XR chest 1V not portable CLINICAL HISTORY: Sepsis. COMPARISON STUDY: Chest CT January 29, 2023. Chest radiograph January 31, 2024. FINDINGS: Lung volumes are normal. Lungs are clear. There is no pneumothorax or pleural effusion. Car diac size is normal. Mediastinal contours are normal. There is no evidence for pulmonary edema. IMPRESSION: No acute cardiopulmonary findings. ACT 112: Negative or not required by law. Electronically signed by: Rudy Leslie M.D. 05/15/2024 4:27 PM
[2024-05-15 16:47] LABS: Albumin Globulin Ratio 0.8 (0.9-2); Albumin Level 3.6 gm/dl (3.4-5.0); BUN Creatinine Ratio 21.9 (10-20); Bilirubin,Total 1.3 mg/dl (0.2-1.0); Calcium 9.3 mg/dl (8.6-10.3); Creatinine Clr Calc Pharmacy 44.1 ml/min; Globulin 4.3 gm/dl (2.5-4.0); Magnesium 1.6 mg/dl (1.7-2.4); Potassium 4.6 mmol/L (3.5-5.1); Total Protein 7.9 gm/dl (6.0-8.3)
[2024-05-15 16:56] LABS: INR 1.1 (0.9-1.1); Partial Thromboplastin Ratio 1.3; Partial Thromboplastin Time 35 Seconds (21-31); Prothrombin Time 12.2 Seconds (9.0-12.0)
[2024-05-15] MEDS: MAGNESIUM SULFATE / D5W 1 GM/100 ML BAG IV STA (17:03)
--- NOTE | 2024-05-15 17:12 | Emergency Department Note ---
Impression & Plan Cellulitis of left leg, Hypomagnesemia, Leukocytosis, Diabetic foot ulcer ED Provider Note HISTORY OF PRESENT ILLNESS: Patient is a 69-year-old male presenting with left leg pain and swelling. Patient reports that he is concerned he might have cellulitis of his left lower extremity. He reports that he noticed some redness and swelling that has progressively worsened over the last 6 days. He had a follow-up appointment with his primary care provider who referred him to the emergency department due to his history of cellulitis with sepsis. Patient reports he has had subjective fevers and chills throughout the day today. Denies any chest pain, shortness of breath, nausea or vomiting. He did notice that he developed a wound from his new shoes starting 5 days ago on his left lateral lower foot. He states that the leg has become painful with the redness and swelling. He has not been on any antibiotics recently. The patient reports diabetes history. ROS: as above PHYSICAL EXAM: Constitutional: Patient appears in no acute distress. HENT: Head: Normocephalic and atraumatic. Eyes: EOMI, PERRL Mouth/Throat: Mucous membranes moist. Neck: Trachea midline. Neck supple. Cardiovascular: RRR, No murmurs, rubs or gallops. Intact distal pulses. Pulmonary/Chest: No respiratory distress. Breath sounds clear and equal bilaterally. No wheezes or rales. Abdominal: Abdomen soft, no tenderness, rebound or guarding. Musculoskeletal: - LLE: Erythema and swelling diffusely across the foot that extends up to the distal lower leg. Palpable DP pulses. Patient has a wound to the plantar surface of the lateral part of the foot with a central eschar. Erythematous region is warm to the touch. Patient does not have any significant pain out of proportion to examination. No palpable crepitus. Skin: Warm and dry. No rash, erythema, pallor or cyanosis Psychiatric: Appropriate mood and affect for situation. Neurological: Alert and keenly responsive. CN II-XII grossly intact, moving all extremities equally and fully. MDM: - Vitals signs showed hypertension - History obtained via patient. History as above. - Chronic conditions affecting care: DM-2; CKD; diabetic neuropathy; HTN; chronic venous insufficiency - Differential diagnoses include, but are not limited to: Cellulitis; infected diabetic foot wound; necrotizing fasciitis; lymphedema; DVT - Order placed for continuous cardiac monitoring. At this time, monitor showed rate of 88 bpm with normal sinus rhythm, per my interpretation. - External medical records reviewed. Discharge summary dated was reviewed. Patient was admitted that time for sepsis secondary to E. coli bacteremia. - EKG interpreted by myself showed normal sinus rhythm. Rate 91 bpm. QT 364. No acute ischemic changes. - Laboratory workup interpreted by myself showed leukocytosis (WBC 10.95); normal INR; CKD (Cr 2.19); normal lactate; hypomagnesemia (Mg 1.6); normal procalcitonin - CXR negative for pneumonia, per my interpretation - Xray left foot negative for acute fracture. Noted to have diffuse soft tissue edema throughout the leg. Radiology notes a foci of soft tissue gas around the fifth metatarsal joint, concerning for a wound versus gas-forming infection. - Patient given 1g IV magnesium for electrolyte abnormality. Given 1g IV tylenol for headache. Given IV clindamyin + zosyn + vancomycin for antibiotic coverage. - Low concern for necrotizing fasciitis at this point, as the gas on the x-ray correlates with the wound on the patient's plantar surface of the foot. Will admit for IV antibiotics. - Discussion was had with correctional casework specialist about patient's case and need for admission - Hospitalist, Dr. Marques, consulted for admission - Patient admitted to [facility] for further evaluation and management. ASSESSMENT AND PLAN: Diagnosis: Left lower extremity cellulitis; hypomagnesemia; leukocytosis; diabetic foot ulcer Plan: Admit Past Med/Surg History Problem List (Updated 05/15/24 @ 19:47 by Lourdes Jasso MD) Diabetic foot ulcer (Acute) Leukocytosis (Acute) Hypomagnesemia (Acute) Cellulitis of left leg (Acute) History of duodenal ulcer Compression fracture of lumbar vertebra (Acute) Chronic ulcer of lower extremity (Acute) Acute UTI (urinary tract infection) (Acute) CKD (chronic kidney disease) (Acute) Hyperlipidemia Diabetes mellitus, type II Hypomagnesemia Acute on chronic anemia Cellulitis Anemia (Acute) Acute pain of right hip (Acute) Fall (Acute) Generalized weakness (Acute) Encounter for pre-operative examination Venous stasis ulcers (Acute) Bilateral venous stasis ulcers in the face of chronic venous insufficiency Non-pressure chronic ulcer of right calf, limited to breakdown of skin (Chronic) Venous stasis ulcers of both lower extremities (Acute) Skin tear of right lower leg without complication (Acute) Tear of skin of multiple sites of left lower extremity (Acute) Gout (Chronic) Acute kidney injury superimposed on chronic kidney disease (Acute) SPENCER on CPAP (Chronic) Hyperkalemia (Acute) History of DVT (deep vein thrombosis) (Chronic) Right-sided heart failure (Chronic) Hypertension Polypharmacy Contusion of great toe, right Toe trauma Diabetic ulcer of right great toe Fractured great toe (Acute) Venous stasis dermatitis of both lower extremities (Chronic) Chronic acquired lymphedema (Chronic) Encounter for pre-operative examination Medical History (Updated 05/15/24 @ 19:47 by Lourdes Jasso MD) Bacteremia due to Gram-negative bacteria ZAHRAA (acute kidney injury) History of colon polyps BENIGN Carpal tunnel syndrome of right wrist Benign cyst of kidney FATTY TISSUE GERD (gastroesophageal reflux disease) Hx of gout Vitamin B12 deficiency PT NOT SURE Anemia Chronic anticoagulation Diabetic neuropathy Mild nonproliferative diabetic retinopathy CKD (chronic kidney disease) stage 3, GFR 30-59 ml/min RLS (restless legs syndrome) Sleep apnea CPAP History of DVT (deep vein thrombosis) LEFT LEG IN 1980. OCCURED AFTER INJURY. >REASON FOR COUMADIN Hypertension Chronic venous insufficiency UNNA BOOTS B/L - CHANGED ONCE A WEEK SOME OPEN SORES ON LEGS/WOUND CLINIC LEMITAR Surgical History History of endoscopy Family history of reaction to anesthesia MOTHER>SLOW TO WAKE UP [place] teeth removed 1 History of repair of retinal tear by laser photocoagulation History of cataract surgery RT/LEFT History of amputation of toe SMALL RT TOE History of colonoscopy Family History Mother Family history of diabetes mellitus Father Family history of diabetes mellitus Other Diabetes Heart disease Hypertension Social History Smoking Status: Never smoker Second Hand Exposure: No; Do You Dip or Chew Tobacco: No; Hx Alcohol Use: Yes Alcohol type: beer Hx Substance Use: No Preferred Language: Georgian 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: No Beliefs That Will Affect Care: None Current Living Situation: Spouse Feels Safe at Home: Yes Assistive Devices: CPAP and Glasses Allergies Allergies Allergy/AdvReac Type Severity Reaction Status Date / Time No Known Allergies Allergy Verified 11/13/23 12:46 Home Meds Home Medications Medication Instructions Recorded Confirmed semaglutide 2 mg/dose (8 mg/3 mL) 2 mg subcut WK 01/29/23 11/13/23 subcutaneous pen injector (Ozempic) Previous Rx's Medication Instructions Recorded allopurinol 100 mg tablet 100 mg PO DAILY #30 tabs 11/22/23 ammonium lactate 12 % topical cream 1 applic topical UD PRN Skin 11/22/23 Irritation #280 grams ascorbic acid (vitamin C) 1,000 mg 1 g PO QAM #30 tabs 11/22/23 tablet atorvastatin 20 mg tablet 20 mg PO QAM #30 tabs 11/22/23 carvedilol 6.25 mg tablet 6.25 mg PO BID #60 tabs 11/22/23 cyanocobalamin (vitamin B-12) 1,000 mcg PO QAM #30 tabs 11/22/23 1,000 mcg tablet dorzolamide 22.3 mg-timolol 6.8 1 drp OPB BID #10 mL 11/22/23 mg/mL eye drops epoetin judith 20,000 unit/2 mL 20,000 unit (2 mL) subcut UD #8 mL 11/22/23 injection solution (Procrit) ferrous sulfate 325 mg (65 mg 325 mg PO BIDM #60 tabs 11/22/23 iron) tablet,delayed release insulin glargine 100 unit/mL (3 10 unit (0.1 mL) subcut QAM #15 mL 11/22/23 mL) subcutaneous pen multivitamin 1 tab PO QAM #30 tabs 11/22/23 netarsudil 0.02 % eye drops 1 drp OPL HS #2.5 mL 11/22/23 (Rhopressa) omega 5-fqd-smq-fish oil 100 1 cap PO QAM #30 caps 11/22/23 mg-160 mg-1,000 mg capsule polyethylene glycol 3350 17 gram 17 g PO DAILY #30 ea 11/22/23 oral powder packet (Miralax) torsemide 20 mg tablet 20 mg PO QAM 30 days #30 tabs 11/22/23 Results & Data (ED) Vital Signs Vital Signs - 24 hr 05/15/24 13:51 05/15/24 13:56 05/15/24 16:43 Temperature 36.8 C Temperature Source Temporal Artery Scan Pulse Rate 89 86 Pulse Rate [Finger] Respiratory Rate 12 Respiratory Effort / Characteristics Non-Labored Respiratory Depth Normal Blood Pressure 174/89 H Blood Pressure [Right Arm] Blood Pressure Mean 117 Blood Pressure Mean [Right Arm] Blood Pressure Position [Right Arm] Pulse Oximetry 98 Oxygen Delivery Method Room Air Room Air Sepsis Recent Fever Within 48 Hours No Sepsis New/Unexplained Change in Mental Status N/A Sepsis Action Taken by Nursing No Action Required 05/15/24 16:44 05/15/24 16:44 05/15/24 18:00 Temperature Temperature Source Pulse Rate 89 Pulse Rate [Finger] 89 88 Respiratory Rate 18 18 18 Respiratory Effort / Characteristics Non-Labored Spontaneous Non-Labored Spontaneous Respiratory Depth Normal Normal Blood Pressure Blood Pressure [Right Arm] 166/88 H 151/74 H Blood Pressure Mean Blood Pressure Mean [Right Arm] 114 99 Blood Pressure Position [Right Arm] Sitting Sitting Pulse Oximetry 100 100 100 Oxygen Delivery Method Room Air Room Air Sepsis Recent Fever Within 48 Hours Sepsis New/Unexplained Change in Mental Status Sepsis Action Taken by Nursing Laboratory Data 05/15/24 15:50 05/15/24 15:50 Lab Results 05/15/24 05/15/24 Range/Units 15:50 17:02 WBC 10.95 H (4.8-10.8) K/ul RBC 3.18 L (4.70-6.10) M/uL Hgb 9.1 L (14.0-18.0) g/dl Hct 27.5 L (42.0-52.0) % MCV 86.5 (80.0-100.0) fL MCH 28.6 (25.0-34.0) pg MCHC 33.1 (32.0-36.0) g/dL RDW Std Deviation 50.4 H (36.4-46.3) fL RDW Coeff of Brent 15.8 H (11.5-14.5) % Plt Count 204 (130-400) K/uL MPV 9.3 L (9.4-12.4) fL Immature Gran % (Auto) 0.4 % Neut % (Auto) 85.4 % Lymph % (Auto) 6.3 % Rush % (Auto) 7.1 % Eos % (Auto) 0.4 % Baso % (Auto) 0.4 % Neut # (Auto) 9.36 H (1.40-6.50) K/uL Lymph # (Auto) 0.69 L (1.20-3.40) K/uL Rush # (Auto) 0.78 H (0.11-0.59) K/uL Eos # (Auto) 0.04 (0.00-0.50) K/uL Baso # (Auto) 0.04 (0.00-0.20) K/uL Immature Gran # (Auto) 0.04 (0.01-0.20) K/uL PT 12.2 H (9.0-12.0) Seconds INR 1.1 (0.9-1.1) APTT 35 H (21-31) Seconds PTT Ratio 1.3 Sodium 136 (136-145) mmol/L Potassium 4.6 (3.5-5.1) mmol/L Chloride 106 (98-107) mmol/L Carbon Dioxide 21 (21-32) mmol/L Anion Gap 9 (3-11) BUN 48 H (6-23) mg/dl Creatinine 2.19 H (0.6-1.4) mg/dl Est Cr Clr Drug Dosing 44.1 ml/min eGFR 32.20 BUN/Creatinine Ratio 21.9 H (10-20) Glucose 177 H (70-99(Fasting)) mg/dl Lactate 1.2 (0.4-2.0) mmol/L Calcium 9.3 (8.6-10.3) mg/dl Magnesium 1.6 L (1.7-2.4) mg/dl Total Bilirubin 1.3 H (0.2-1.0) mg/dl AST 16 (13-39) U/L ALT 19 (7-52) U/L Alkaline Phosphatase 74 (34-104) U/L Troponin I High Sens 6.0 (0-20) pg/ml Total Protein 7.9 (6.0-8.3) gm/dl Albumin 3.6 (3.4-5.0) gm/dl Globulin 4.3 H (2.5-4.0) gm/dl Albumin/Globulin Ratio 0.8 L (0.9-2) Procalcitonin 0.40 (0-0.5) ng/ml Administered Medications Vancomycin HCl 2,500 mg/ (Sodium Chloride) 550 mls @ 200 mls/hr IV NOW ONE Stop: 05/15/24 21:39 Last Admin: 05/15/24 19:23 Dose: 200 mls/hr Documented By: MAGNOLIA Discontinued Medications Magnesium Sulfate/Dextrose (Magnesium Sulfate / D5w) 1 gm in 100 mls @ 100 mls/hr IV NOW STA Stop: 05/15/24 17:47 Last Infusion: 05/15/24 18:23 Dose: Infused Documented By: Admin: 05/15/24 17:03 Dose: 100 mls/hr Documented By: ASHAV Acetaminophen (Ofirmev) 1,000 mg in 100 mls @ 400 mls/hr IV NOW STA Stop: 05/15/24 17:22 Last Infusion: 05/15/24 18:23 Dose: Infused Documented By: Admin: 05/15/24 17:50 Dose: 400 mls/hr Documented By: [facility] [place] Data Radiologist's Impression: Chest X-Ray 05/15/24 13:56 XR chest 1V not portable CLINICAL HISTORY: Sepsis. COMPARISON STUDY: Chest CT January 29, 2023. Chest radiograph January 31, 2024. FINDINGS: Lung volumes are normal. Lungs are clear. There is no pneumothorax or pleural effusion. Cardiac size is normal. Mediastinal contours are normal. There is no evidence for pulmonary edema. IMPRESSION: No acute cardiopulmonary findings. ACT 112: Negative or not required by law. Electronically signed by: Rudy Leslie M.D. 05/15/2024 4:27 PM Foot X-Ray 05/15/24 17:07 LEFT FOOT 2 VIEWS CLINICAL HISTORY: Foot wound. Cellulitis. FINDINGS: AP and lateral views of the left foot are compared to study dated 03/01/2021 and correlated with radiographs of the first toe dated 03/13/2021. The skeletal structures are osteopenic. There is chronic posttraumatic deformity of the first distal phalanx. No findings are suspicious for acute fracture. No erosive change is seen. Mild/moderate osteoarthritic change is noted throughout the foot, greatest at the first metatarsophalangeal joint and at the tarsometatarsal articulations. There is a dorsal heel spur. Degenerative spurring is seen along the dorsal aspect of the tarsal bones. Diffuse soft tissue edema is seen throughout the left lower extremity. There is advanced atherosclerotic calcification of the regional arteries. Foci of soft tissue gas are noted around the fifth metatarsophalangeal joint. Large dermal calcifications are seen in the distal calf. IMPRESSION: 1. No acute fracture is identified. No bony erosion is seen. 2. Diffuse soft tissue edema throughout the left leg. 3. Foci of soft tissue gas are seen around the fifth metatarsophalangeal joint. Correlate clinically for evidence of a wound/gas-forming infection. Electronically signed by: Tomi Westfall M.D. 05/15/2024 7:07 PM Discharge Plan Visit Data Chief Complaint: Leg Injury/Pain Stated Complaint: LT LEG CELLULITIS ED Provider: Lourdes Jasso Discharge Problem: Cellulitis of left leg, Hypomagnesemia, Leukocytosis, Diabetic foot ulcer Forms Stand Alone Forms: [facility] Prescriptions Prescriptions: No Action Ozempic 2 mg/dose (8 mg/3 mL) pen injector 2 mg SUBCUT WK Rx Instructions: saturdays ferrous sulfate 325 mg (65 mg iron) Tablet,Delayed Release (Dr/Ec) 325 mg PO BIDM Qty: 60 0RF polyethylene glycol 3350 [Miralax] 17 gram Powder In Packet 17 g PO DAILY Qty: 30 0RF allopurinol 100 mg tablet 100 mg PO DAILY Qty: 30 0RF multivitamin Tablet 1 tab PO QAM Qty: 30 0RF ascorbic acid (vitamin C) 1,000 mg tablet 1 g PO QAM Qty: 30 0RF carvedilol 6.25 mg tablet 6.25 mg PO BID Qty: 60 0RF Rx Instructions: must administer with a meal/food atorvastatin 20 mg tablet 20 mg PO QAM Qty: 30 0RF torsemide 20 mg tablet 20 mg PO QAM 30 Days Qty: 30 0RF cyanocobalamin (vitamin B-12) 1,000 mcg tablet 1,000 mcg PO QAM Qty: 30 0RF dorzolamide-timolol 22.3-6.8 mg/mL drops 1 drp OPB BID Qty: 10 0RF Rx Instructions: morning and 5 pm ammonium lactate 12 % cream 1 applic TOPICAL UD PRN (Reason: Skin Irritation) Qty: 280 0RF Procrit 20,000 unit/2 mL Solution 20,000 unit subcut UD Qty: 8 0RF Rx Instructions: Every 14 days as directed on Tuesdays insulin glargine 100 unit/mL (3 mL) insulin pen 10 unit SQ QAM Qty: 15 0RF Rx Instructions: take daily in morning before breakfast omega 0-fnw-eck-fish oil 100-160-1,000 mg capsule 1 cap PO QAM Qty: 30 0RF Rhopressa 0.02 % drops 1 drp OPL HS Qty: 2.5 0RF Referrals Referrals: Nancy Ryan DO [Primary Care Provider] -
[2024-05-15] MEDS: ACETAMINOPHEN 1,000 MG/100 ML VIAL IV STA (17:50)
--- NOTE | 2024-05-15 18:47 | Electrocardiogram Report ---
Test Reason : Blood Pressure : */* mmHG Vent. Rate : 91 BPM Atrial Rate : 91 BPM P-R Int : 126 ms QRS Dur : 92 ms QT Int : 364 ms P-R-T Axes : -7 25 43 degrees QTcB Int : 447 ms Normal sinus rhythm Poor R wave progression, consider anterior [place] vs. lead placement vs. LVH Abnormal ECG When compared with ECG of 31-Jan-2024 14:42, No significant change was found Confirmed by Mika Johns ([id number]) on 05/15/2024 6:46:52 PM Referred By: Confirmed By: Mika Johns
[2024-05-15] MEDS ORDERED: VANCOMYCIN CONSULT ACTIVE PRN (18:55)
--- NOTE | 2024-05-15 19:08 | XRay Report ---
LEFT FOOT 2 VIEWS CLINICAL HISTORY: Foot wound. Cellulitis. FINDINGS: AP and lateral views of the left foot are compared to study dated 03/01/2021 and correlated with radiographs of the first toe dated 03/13/2021. The skeletal structures are osteopenic. There is ch ronic posttraumatic deformity of the first distal phalanx. No findings are suspicious for acute fract ure. No erosive change is seen. Mild/moderate osteoarthritic change is noted throughout the foot, gre atest at the first metatarsophalangeal joint and at the tarsometatarsal articulations. There is a el cass heel spur. Degenerative spurring is seen along the dorsal aspect of the tarsal bones. Diffuse sof t tissue edema is seen throughout the left lower extremity. There is advanced atherosclerotic calcifi cation of the regional arteries. Foci of soft tissue gas are noted around the fifth metatarsophalange al joint. Large dermal calcifications are seen in the distal calf. IMPRESSION: 1. No acute fracture is identified. No bony erosion is seen. 2. Diffuse soft tissue edema throughout the left leg. 3. Foci of soft tissue gas are seen around the fifth metatarsophalangeal joint. Correlate clinically for evidence of a wound/gas-forming infection. Electronically signed by: Tomi Westfall M.D. 05/15/2024 7:07 PM
[2024-05-15] MEDS: VANCOMYCIN HCL 2,500 MG in SODIUM CHLORIDE 0.9% 500 ML IV ONE (19:23)
[2024-05-15 19:44] LABS: Appearance Urine Clear (Clear); Bacteria Urine Automated None Seen (None Seen); Bilirubin Urine Negative (Negative); Blood Urine Negative (Negative); Cast Urine Automated 0-2 /lpf (0-2); Color Urine Yellow; Epithelial Cell Urine Auto 0-2 /hpf (0-2); Glucose Urine UA Negative (Negative); Ketones Urine Negative (Negative); Leukocyte Esterase Urine Trace (Negative); Nitrite Urine Negative (Negative); Protein Urine Negative (Negative); RBC Urine Automated 0-2 /hpf (0-2); Specific Gravity Urine 1.012 (1.000-1.030); Urobilinogen Urine Negative (Negative); WBC Urine Automated 0-5 /hpf (0-5)
--- NOTE | 2024-05-15 20:29 | History & Physical Report ---
Date of Service May 15, 2024 Assessment & Plan (1) Cellulitis: Plan: Left foot cellulitis Rule out abscess No sepsis for now ARF on CKD chronic diastolic heart failure (55 to 60%, TTE 2023), patient euvolemic hypertension, stable hyperlipidemia, on statin Rx hx PVD SPENCER on CPAP DM2 on oral medications, well-controlled as of recent hemoglobin A1c of 5.16 Dec 2023 history DVT status post anticoagulation chronic anemia, hemoglobin at baseline hx chronic lymphedema/LE venous stasis as per records, chronic LE wounds healing well as per . Admit to F Doxycycline, Zosyn CT left foot Offload left foot Podiatry consult re: DM foot infection (Patient known to Dr. Cardenas.) ISS BG goal 1 10-1 40, carb count coverage DVT prophylaxis. Heparin subcu if no bleeding on CT Full code Patient requesting updates providers. Mr. Lisa Wu, contact #[phone]. Text document was generated using [employer] voice recognition software. It may contain grammatical or spelling errors. Kindly contact undersigned for clarification of any documentation item in question. History of Present Illness Chief Complaint: Left foot swelling Primary Care Provider: Nancy Ryan, History obtained from patient, family, and records. Medical history significant for chronic diastolic heart failure (55 to 60%, TTE 2023), hypertension, hyperlipidemia, PVD SPENCER on CPAP, DM2 on oral medications, history DVT status post anticoagulation, CRI (baseline creatinine 2), chronic anemia (baseline hemoglobin 9-10), chronic lymphedema/LE venous stasis as per records, gout. Last confinement November 2023 for sepsis secondary to E. coli bacteremia/UTI. Patient noticed progressive left foot swelling since last week. May have been from ill fitting shoes. Patient noticed a black wound on the foot undersurface. Skin may have come off after removing sock as per patient. No drainage, no fever, no chills. Foot swelling not extending up to leg as per patient. Denies chest pain, SOB. Patient directed to ER for evaluation. Clindamycin and Zosyn and vancomycin administered at the ER. 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 Allergies Allergy/AdvReac Type Severity Reaction Status Date / Time No Known Allergies Allergy Verified 05/15/24 20:10 Home Medications Medication Instructions Recorded Confirmed Type semaglutide 2 mg/dose (8 mg/3 mL) 2 mg subcut WK 01/29/23 05/15/24 History subcutaneous pen injector (Ozempic) ascorbic acid (vitamin C) 1,000 mg 1 g PO QAM #30 tabs 11/22/23 05/15/24 Rx tablet atorvastatin 20 mg tablet 20 mg PO QAM #30 tabs 11/22/23 05/15/24 Rx carvedilol 6.25 mg tablet 6.25 mg PO BID #60 tabs 11/22/23 05/15/24 Rx dorzolamide 22.3 mg-timolol 6.8 1 drp OPB BID #10 mL 11/22/23 05/15/24 Rx mg/mL eye drops epoetin judith 20,000 unit/2 mL 20,000 unit (2 mL) subcut UD #8 mL 11/22/23 05/15/24 Rx injection solution (Procrit) netarsudil 0.02 % eye drops 1 drp OPL HS #2.5 mL 11/22/23 05/15/24 Rx (Rhopressa) omega [id number]-fish oil 100 1 cap PO QAM #30 caps 11/22/23 05/15/24 Rx mg-160 mg-1,000 mg capsule torsemide 20 mg tablet 20 mg PO QAM 30 days #30 tabs 11/22/23 05/15/24 Rx allopurinol 100 mg tablet 200 mg PO QAM 05/15/24 05/15/24 History ferrous sulfate 325 mg (65 mg 325 mg PO 3XWK 05/15/24 05/15/24 History iron) tablet,delayed release insulin glargine 100 unit/mL (3 20 unit subcut QAM 05/15/24 05/15/24 History mL) subcutaneous pen losartan 25 mg tablet 25 mg PO QAM 05/15/24 05/15/24 History Past Med/Surg History Problem List (Updated 05/15/24 @ 19:47 by Lourdes Jasso MD) Diabetic foot ulcer (Acute) Leukocytosis (Acute) Hypomagnesemia (Acute) Cellulitis of left leg (Acute) History of duodenal ulcer Compression fracture of lumbar vertebra (Acute) Chronic ulcer of lower extremity (Acute) Acute UTI (urinary tract infection) (Acute) CKD (chronic kidney disease) (Acute) Hyperlipidemia Diabetes mellitus, type II Hypomagnesemia Acute on chronic anemia Cellulitis Anemia (Acute) Acute pain of right hip (Acute) Fall (Acute) Generalized weakness (Acute) Encounter for pre-operative examination Venous stasis ulcers (Acute) Bilateral venous stasis ulcers in the face of chronic venous insufficiency Non-pressure chronic ulcer of right calf, limited to breakdown of skin (Chronic) Venous stasis ulcers of both lower extremities (Acute) Skin tear of right lower leg without complication (Acute) Tear of skin of multiple sites of left lower extremity (Acute) Gout (Chronic) Acute kidney injury superimposed on chronic kidney disease (Acute) SPENCER on CPAP (Chronic) Hyperkalemia (Acute) History of DVT (deep vein thrombosis) (Chronic) Right-sided heart failure (Chronic) Hypertension Polypharmacy Contusion of great toe, right Toe trauma Diabetic ulcer of right great toe Fractured great toe (Acute) Venous stasis dermatitis of both lower extremities (Chronic) Chronic acquired lymphedema (Chronic) Encounter for pre-operative examination Medical History (Updated 05/15/24 @ 19:47 by Lourdes Jasso MD) Bacteremia due to Gram-negative bacteria ZAHRAA (acute kidney injury) History of colon polyps BENIGN Carpal tunnel syndrome of right wrist Benign cyst of kidney FATTY TISSUE GERD (gastroesophageal reflux disease) Hx of gout Vitamin B12 deficiency PT NOT SURE Anemia Chronic anticoagulation Diabetic neuropathy Mild nonproliferative diabetic retinopathy CKD (chronic kidney disease) stage 3, GFR 30-59 ml/min RLS (restless legs syndrome) Sleep apnea CPAP History of DVT (deep vein thrombosis) LEFT LEG IN 1980. OCCURED AFTER INJURY. >REASON FOR COUMADIN Hypertension Chronic venous insufficiency UNNA BOOTS B/L - CHANGED ONCE A WEEK SOME OPEN SORES ON LEGS/WOUND CLINIC HALES CORNERS Surgical History History of endoscopy Family history of reaction to anesthesia MOTHER>SLOW TO WAKE UP [place] teeth removed 1 History of repair of retinal tear by laser photocoagulation History of cataract surgery RT/LEFT History of amputation of toe SMALL RT TOE History of colonoscopy Family History Mother Family history of diabetes mellitus Father Family history of diabetes mellitus Other Diabetes Heart disease Hypertension Social History Smoking Status: Never smoker Second Hand Exposure: No; Do You Dip or Chew Tobacco: No; Hx Alcohol Use: Yes Alcohol type: beer Hx Substance Use: No Preferred Language: Frisian Communication Ability: Effective Aircraft Communicator Required: No Beliefs That Will Affect Care: Alevism Alevism Beliefs: Voodoo Current Living Situation: Spouse Other Information That Helps Us Care for You: No Feels Safe at Home: Yes Safety Concerns: Feels Safe At This Time Assistive Devices: CPAP and Glasses Review of Systems Review of Systems: As per HPI, all other systems reviewed and negative Physical Exam Physical Exam: GENERAL: Comfortable, morbidly obese, pleasant, no respiratory distress SKIN: Pallor, warm HEENT: Bespectacled, pale palpebral conjunctivae, no ptosis, moist buccal mucosa NECK : Supple, short neck, no tenderness CHEST : Decreased breath sounds, no tenderness HEART : RRR, no obvious murmurs ABDOMEN: Some distention, nontender EXTREMITIES : Bilateral LE venous stasis with dressings, tender left foot swelling with necrotic ulcer on plantar surface, no other conspicuous deformities noted NEUROLOGIC : Coherent, no facial asymmetry, no other gross focality Results & Data Results & Data Vital Signs (Past 12 Hours) Vital Signs Temp Pulse Pulse Resp BP BP Pulse Ox 05/15/24 18:00 88 18 151/74 H 100 05/15/24 16:44 89 18 100 05/15/24 16:44 89 18 166/88 H 100 05/15/24 16:43 86 05/15/24 13:56 05/15/24 13:51 36.8 C 89 12 174/89 H 98 O2 Del Method 05/15/24 18:00 05/15/24 16:44 Room Air 05/15/24 16:44 Room Air 05/15/24 16:43 05/15/24 13:56 Room Air 05/15/24 13:51 Room Air Laboratory Results Laboratory Results WBC 10.95 K/ul (4.8-10.8) H 05/15/24 15:50 RBC 3.18 M/uL (4.70-6.10) L 05/15/24 15:50 Hgb 9.1 g/dl (14.0-18.0) L 05/15/24 15:50 Hct 27.5 % (42.0-52.0) L 05/15/24 15:50 MCV 86.5 fL (80.0-100.0) 05/15/24 15:50 MCH 28.6 pg (25.0-34.0) 05/15/24 15:50 MCHC 33.1 g/dL (32.0-36.0) 05/15/24 15:50 RDW Std Deviation 50.4 fL (36.4-46.3) H 05/15/24 15:50 RDW Coeff of Brent 15.8 % (11.5-14.5) H 05/15/24 15:50 Plt Count 204 K/uL (130-400) 05/15/24 15:50 MPV 9.3 fL (9.4-12.4) L 05/15/24 15:50 Immature Gran % (Auto) 0.4 % 05/15/24 15:50 Neut % (Auto) 85.4 % 05/15/24 15:50 Lymph % (Auto) 6.3 % 05/15/24 15:50 [place] % (Auto) 7.1 % 05/15/24 15:50 Eos % (Auto) 0.4 % 05/15/24 15:50 Baso % (Auto) 0.4 % 05/15/24 15:50 Neut # (Auto) 9.36 K/uL (1.40-6.50) H 05/15/24 15:50 Lymph # (Auto) 0.69 K/uL (1.20-3.40) L 05/15/24 15:50 [place] # (Auto) 0.78 K/uL (0.11-0.59) H 05/15/24 15:50 Eos # (Auto) 0.04 K/uL (0.00-0.50) 05/15/24 15:50 Baso # (Auto) 0.04 K/uL (0.00-0.20) 05/15/24 15:50 Immature Gran # (Auto) 0.04 K/uL (0.01-0.20) 05/15/24 15:50 PT 12.2 Seconds (9.0-12.0) H 05/15/24 15:50 INR 1.1 (0.9-1.1) 05/15/24 15:50 APTT 35 Seconds (21-31) H 05/15/24 15:50 PTT Ratio 1.3 05/15/24 15:50 Sodium 136 mmol/L (136-145) 05/15/24 15:50 Potassium 4.6 mmol/L (3.5-5.1) 05/15/24 15:50 Chloride 106 mmol/L (98-107) 05/15/24 15:50 Carbon Dioxide 21 mmol/L (21-32) 05/15/24 15:50 Anion Gap 9 (3-11) 05/15/24 15:50 BUN 48 mg/dl (6-23) H 05/15/24 15:50 Creatinine 2.19 mg/dl (0.6-1.4) H 05/15/24 15:50 Est Cr Clr Drug Dosing 44.1 ml/min 05/15/24 15:50 eGFR 32.20 05/15/24 15:50 BUN/Creatinine Ratio 21.9 (10-20) H 05/15/24 15:50 Glucose 177 mg/dl (70-99(Fasting)) H 05/15/24 15:50 Lactate 1.2 mmol/L (0.4-2.0) 05/15/24 17:02 Calcium 9.3 mg/dl (8.6-10.3) 05/15/24 15:50 Magnesium 1.6 mg/dl (1.7-2.4) L 05/15/24 15:50 Total Bilirubin 1.3 mg/dl (0.2-1.0) H 05/15/24 15:50 AST 16 U/L (13-39) 05/15/24 15:50 ALT 19 U/L (7-52) 05/15/24 15:50 Alkaline Phosphatase 74 U/L (34-104) 05/15/24 15:50 Troponin I High Sens 6.0 pg/ml (0-20) 05/15/24 15:50 Total Protein 7.9 gm/dl (6.0-8.3) 05/15/24 15:50 Albumin 3.6 gm/dl (3.4-5.0) 05/15/24 15:50 Globulin 4.3 gm/dl (2.5-4.0) H 05/15/24 15:50 Albumin/Globulin Ratio 0.8 (0.9-2) L 05/15/24 15:50 Procalcitonin 0.40 ng/ml (0-0.5) 05/15/24 15:50 Urine Color Yellow 05/15/24 19:15 Urine Appearance Clear (Clear) 05/15/24 19:15 Urine pH 5.0 (4.5-7.5) 05/15/24 19:15 Ur Specific [place] 1.012 (1.000-1.030) 05/15/24 19:15 Urine Protein Negative (Negative) 05/15/24 19:15 Urine Glucose (UA) Negative (Negative) 05/15/24 19:15 Urine Ketones Negative (Negative) 05/15/24 19:15 Urine Blood Negative (Negative) 05/15/24 19:15 Urine Nitrite Negative (Negative) 05/15/24 19:15 Urine Bilirubin Negative (Negative) 05/15/24 19:15 Urine Urobilinogen Negative (Negative) 05/15/24 19:15 Ur Leukocyte Esterase Trace (Negative) H 05/15/24 19:15 Urine WBC (Auto) 0-5 /hpf (0-5) 05/15/24 19:15 Urine RBC (Auto) 0-2 /hpf (0-2) 05/15/24 19:15 U Hyaline Cast (Auto) 0-2 /lpf (0-2) 05/15/24 19:15 U Epithel Cells (Auto) 0-2 /hpf (0-2) 05/15/24 19:15 Urine Bacteria (Auto) None Seen (None Seen) 05/15/24 19:15 Impressions Chest X-Ray 05/15/24 13:56 XR chest 1V not portable CLINICAL HISTORY: Sepsis. COMPARISON STUDY: Chest CT January 29, 2023. Chest radiograph January 31, 2024. FINDINGS: Lung volumes are normal. Lungs are clear. There is no pneumothorax or pleural effusion. Cardiac size is normal. Mediastinal contours are normal. There is no evidence for pulmonary edema. IMPRESSION: No acute cardiopulmonary findings. ACT 112: Negative or not required by law. Electronically signed by: Rudy Leslie M.D. 05/15/2024 4:27 PM Foot X-Ray 10/04/24 17:07 LEFT FOOT 2 VIEWS CLINICAL HISTORY: Foot wound. Cellulitis. FINDINGS: AP and lateral views of the left foot are compared to study dated 03/01/2021 and correlated with radiographs of the first toe dated 03/13/2021. The skeletal structures are osteopenic. There is chronic posttraumatic deformity of the first distal phalanx. No findings are suspicious for acute fracture. No erosive change is seen. Mild/moderate osteoarthritic change is noted throughout the foot, greatest at the first metatarsophalangeal joint and at the tarsometatarsal articulations. There is a dorsal heel spur. Degenerative spurring is seen along the dorsal aspect of the tarsal bones. Diffuse soft tissue edema is seen throughout the left lower extremity. There is advanced atherosclerotic calcification of the regional arteries. Foci of soft tissue gas are noted around the fifth metatarsophalangeal joint. Large dermal calcifications are seen in the distal calf. IMPRESSION: 1. No acute fracture is identified. No bony erosion is seen. 2. Diffuse soft tissue edema throughout the left leg. 3. Foci of soft tissue gas are seen around the fifth metatarsophalangeal joint. Correlate clinically for evidence of a wound/gas-forming infection. Electronically signed by: Tomi Westfall M.D. 05/15/2024 7:07 PM Diagnostic Findings EKG as per my interpretation :Rate 90, NSR, normal axis, no ischemia
[2024-05-15] MEDS ORDERED: PROMETHAZINE 12.5 MG/50.5 ML BAG IV PRN (20:32)
[2024-05-15] MEDS: CLINDAMYCIN/D5W 600 MG/50 ML BAG IV ONE (22:14)
[2024-05-15] MEDS: SODIUM CHLORIDE 0.9% 1,000 ML IV ONE (22:58)
[2024-05-15] MEDS: PIPERACILLIN/TAZOBACTAM 4.5 GM/100 ML BAG IV ONE (22:59)
--- OUTSIDE RECORDS SUMMARY | 2024-05-15 23:01 | External Medical Summary | Summary of Care ---
Author Name Unknown Organization [facility] Address [address] [place] [address] Phone [phone] Care Team Providers Care Weight Yardage Checker Name Role Phone Nancy Ryan DO Primary Care Provider [phone] Reason for Visit * Reason Comments Medication Administration Retacrit * Episode Based Medications (Routine) - Authorized Specialty Diagnoses / Procedures Referred By Contac t Referred To Contact Diagnoses Anemia due to stage 3a chronic kidney disease (HCC) Procedures SD INJ RETACRIT NON-ESRD USE Tameka Pires CRNP [address] [facility] [place] [address] Anc Hem/Onc En [place] DEPT CLOSED - 06/25/23 [address] [place] [phone] Referral ID Status Reason Start Date Expiration Date V isits Requested Visits Authorized [id number] Authorized 12/10/2023 06/04/[phone] Encounter Details Date Type Department Care Team (Late st Contact Info) Description 05/13/2024 10:30 AM EDT Immunization/I njection Hematology/Oncology Treatment, [place] [address] [place] [address] Jordana, Chair 11 Hem Onc [address] [place], [place] [phone] Anemia due to stage 3a chronic kidney disease (HCC)* Allergies No known active allergiesdocumented as of this encounter (statuses as of 05/13/2024) Medications Medication Sig Dispensed Refills Start Date End Date Status Blood Glucose Monitoring Suppl ([email or web address].com ULTRA SYSTEM) W/DEVICE KITIndications:DM type 2, goal A1c below 7 Use as directed 4 times a day. Use up to four times a day as directed. Diagnosis = E11.9 1 Kit 0 06/29/2015 Active BD Pen Needle Wilda U/F 32G X 4 MM (Insulin Pen Needle)Indication s:Type 2 diabetes mellitus with diabetic neuropathy, with long-term current use of insulin ([facility]),Type 2 diabetes mellitus with hemoglobin A1c goal of less than 7.0% ([facility]) Use once a day with basaglar. DX e11.9 100 Each 3 10/17/2021 Active ITmedia KKTouch Verio In Vitro Strip (Glucose Blood) Use to test blood sugars twice a day. Dx. E11.9 300 Strip 1 03/13/2023 Active ITmedia KKTouch Delica Lancets 30GIndications:Ty pe 2 diabetes mellitus with diabetic neuropathy, with long-term current use of insulin ([facility]) Use TWICE a day to test glucose Diagnosis = E11.9 200 Each 3 03/19/2023 Active Epoetin Gautam-epbx 62293 UNIT/ML Injection Solution (Retacrit) Inject 2 mL intravenously once. Every two weeks Active Carvedilol 6.25 MG Oral Tablet (Coreg) TAKE 1 TABLET BY MOUTH TWICE A DAY WITH BREAKFAST AND DINNER 180 Tablet 3 12/05/2023 Active Dorzolamide HCl-Timolol Mal 2-0.5 % Ophthalmic Solution (Cosopt Ocumeter Plus) INSTILL 1 DROP INTO BOTH EYES BY OPHTHALMIC ROUTE ONCE IN THE MORING AND THE SECOND DROP AROUND 5 PM 10 mL 4 12/05/2023 Active Ferrous Sulfate 325 (65 Fe) MG Oral Tablet (Feosol) Take 1 Tablet by mouth in the morning and 1 Tablet before bedtime. 100 Tablet 12/05/2023 Active Additional Information Patient taking differently:325 mg OralMWF, Reported on 04/21/2024 Insulin Glargine Solostar 100 UNIT/ML Subcutaneous Solution Pen-injector (Basaglar KwikPen) Inject 10 Units under the skin in the morning. 15 mL 12/05/2023 Active Additional Information Patient taking differently: 20 UnitsSubcutaneous Daily(AM), Reported on 03/27/2024 Melatonin 5 MG Oral Tablet Take 1 Tablet by mouth at bedtime. 30 Tablet 12/05/2023 Active Additional Information Patient taking differently:5 mg OralHS PRN, Reported on 04/30/2024 Multiple Vitamin Oral Tablet Take 1 Tablet by mouth in the morning. 30 Tablet 12/05/2023 Active Additional Information Patient not taking.Reported on 04/30/2024 [place]-3 Fish Oil 1000 MG Oral Capsule ([place]-3) Take 1 Capsule by mouth in the morning. 30 Capsule 12/05/2023 Active Torsemide 20 MG Oral Tablet (Demadex) Take 1 Tablet by mouth in the morning. 90 Tablet 3 12/05/2023 Active Vitamin B-12 1000 MCG Oral Tablet (Cyanocobalamin) Take 1 Tablet by mouth in the morning. 30 Tablet 12/05/2023 Active Vitamin C 500 MG Oral Tablet Chewable Take 2 Tablets by mouth in the morning. 100 Tablet 12/05/2023 Active CPAP every night at bedtime. Active Magnesium Oxide -Mg Supplement 400 (240 Mg) MG Oral Tablet (Mag-Ox) Take 1 Tablet by mouth in the morning and 1 Tablet before bedtime. 180 Tablet 1 01/07/2024 Active Pantoprazole Sodium 40 MG Oral Tablet Delayed Release (Protonix) Take 1 Tablet by mouth in the morning. 01/08/2024 Active Losartan Potassium 25 MG Oral Tablet (Cozaar) Take 1 Tablet by mouth in the morning. 90 Tablet 3 01/08/2024 Active Ozempic (2 MG/DOSE) 8 MG/3ML Subcutaneous Solution Pen-injector (Semaglutide (2 MG/DOSE))Indicati ons:Type 2 diabetes mellitus with diabetic neuropathy, with long-term current use of insulin (HCC) Inject 2 mg under the skin once a week. DX E11.9 Diabetes Mellitus 3 mL 5 01/27/2024 Active Rhopressa 0.02 % Ophthalmic Solution Instill 1 Drop into eye at bedtime. 2.5 mL 6 03/27/2024 Active Atorvastatin Calcium 20 MG Oral Tablet (Lipitor) Take 1 Tablet by mouth in the morning. 90 Tablet 1 04/07/2024 Active Vancomycin HCl 125 MG Oral Capsule (Vancocin) Take 1 Capsule by mouth every 6 hours. For 10 days 04/22/2024 Active Allopurinol 100 MG Oral Tablet (Zyloprim)Indicat ions:Hyperuricemi a Take 2 Tablets by mouth in the morning. Take 1 tablet by mouth in the morning. 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, [...] right lower leg with unspecified severity 02/08/2021 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 [...] as of this encounter (statuses as of 05/13/2024) Resolved Problems Problem Noted Date Diagnosed Date Resolved Date Anemia due to stage 3a chronic kidney disease 03/22/20 23 02/20/2024 Overview: Per CKD protocol Stage 3 chronic kidney disease 08/29/2021 09/27/2021 Chronic kidney disease, stage 3 unspecified 02/08/2021 02/23/2021 Stage 3a chronic kidney disease 08/22/2020 02/20/2024 Overview: Per CKD protocol Morbid obesity with [...] as of this encounter (statuses as of 05/13/2024) Immunizations Name Administration Dates Next Due COVID-19 mRNA, LNP-s, No Pre serve, 2-Dose Series (Goodpatch) 06/20/2021,10/22/2020,09/26/2020 COVID-19, LNP-s, No Preserve , Jamie-sucrose, Ages 12+ (Pfizer) 03/13/2022 COVID-19, MRNA-LNP, 24-25, P F, 50 MCG/0.5ML, IM, 12 YRS & ABOVE (Moderna - Spikevax) 05/08/2024 Covid-19, Mrna, Lnp-s, Pf, B ivalent, 30 Mcg, IM, 12 yrs and above (Goodpatch) 09/20/2022 Pneumococcal Conjugate Vacci ne, 20-valent ([id number]) 03/14/2022 Pneumococcal Polysaccharide PPV23 (Pneumovax) 03/19/2006 Seasonal Influenza Vac., MDV , IM, 0.5 mL (Fluzone) 04/26/2014,06/08/2013,07/28/2012,05/07,06/08/2010,05/31/2009,06/11/2008 ,06/17/2007 Seasonal Influenza, PF, 6 M & above, IM , (FluLaval or Fluzone) 05/19/2021,04/22/2020,06/03/2019,06/03,07/30/2017 Seasonal Influenza, Quadriva lent Hd (Fluzone Hd) 05/15/2023,06/25/2022 Seasonal Influenza, Quadriva lent, No Preserve, IM 08/22/2016 TD - Tetanus/Diptheria (ADULT) 08/12/2004 TDAP (age 10 and older)(Boostrix) 08/30/2020 TDAP, Age 7 and older, IM (Adacel) 05/02/2010 Zoster Vaccine Recombinant (Shingrix) 01/29/2020 ,07/22/2019 [...] in the Last Year Never true 07/22/2019 Utilities Answer Date Recorded Do you have trouble paying y our heating, water, or electric bill? (Adult - for ages 18 years and over) Not on file 01/28/2024 Is your family able to pay t he heat, water, or electric bill? (Household - for ages 0-17 years) Not on file 01/28/2024 Does your family have access to good internet? (Household - for ages 0-17 years) Not on file 01/28/2024 Social Connections Answer Date Recorded How often do you feel lonely or isolated from those around you? (Adult - for ages 18 years and over) Not on file 01/28/2024 Sex and Gender Information Value Date Recorded Sex Assigned at Not on file Gender Identity Not on file Sexual Orientation Not on file Job Start Date Occupation Industry Not on file Not on file Not on file documented as of this encounter Last Filed Vital Signs Vital Sign Reading Time Taken Comments Blood Pressure 157/74 05/13/2024 10:43 AM EDT Pulse - - Temperature - - Respiratory Rate - - Oxygen Saturation - - Inhaled Oxygen Concentration - - Weight - - Height - - Body Mass Index - - documented in this encounter Nursing Notes * Pat Trent LPN - 05/13/2024 11:05 AM EDT Pt arrived for Retacrit injection. Hgb 9.3. Pts BP is 157/74. Per MD- okay to treat. Administered in RAMILA. Pt tolerated well. To return in 2 weeks. Discharged in stable condition. documented in this encounter Plan of Treatment Upcoming Encounters Date Type Department Care Team (Late st Contact Info) Description 05/26/2024 9:00 AM EDT Laboratory Laboratory [address] [place] [phone] [address] [place] [address] 05/27/2024 10:30 AM EDT Immunization/Injectio n Hematology/Oncology Treatment, [place] [address] [facility] [place] [phone] Jordana, Chair 11 Hem Onc [address] [place] [address] 06/02/2024 10:30 AM EDT Office Visit Sleep Disorders Ctr Manny Browne [place] [address] [facility] [place] [phone] Dorothy Toscano CRNP [address] [place] [address] 06/23/2024 9:15 AM EST Office Visit Hematology/Oncology [facility] Jordana [place] [address] [facility] [place] [phone] Fly Velazquez MD [address] [facility] [place] [address] 09/18/2024 2:00 PM EST Office Visit Nephrology [address] [place] [address] ZemaBeckie umanzor PA-C [address] [place] [address] 10/22/2024 10:00 AM EDT Office Visit Sleep Disorders Ctr [facility] [address] [place] [phone] Dorothy Toscano CRNP [address] [place] [address] 11/17/2024 9:30 AM EDT Office Visit Family Medicine [address] [place] [phone] Nancy [address] [place] [address] 11/24/2024 1:00 PM EDT Office Visit Cardiology [address] [place] [address] Prabhakar Henning PA-C [address] [place] [address] Scheduled Procedures Name Priority Associated Diagnoses Date/Ti me COLONOSCOPY FLEXIBLE PROXIMAL DIAGNOSTIC Recall History of colon polyps Health Maintenance Due Date Last Done Comments Cologuard 2002 Sigmoidoscopy 2002 Fecal Occult Blood Test 07/07/2011 07/07/20 10, 08/25/2003, 12/16/1998 Depression Screening 01/28/2021 01/29/2020 Adult Wellness Visit 2023 Diabetic Foot Exam 03/14/2023 03/14/2022, 0 11/30/2015, 11/09/2014, Additional history exists Influenza Vaccine (FLU shot) (#1) 2024 05/15/2023, 06/25/2022, 05/19/2021, Additional history exists HbA1c 06/24/2024 12/23/2023, 12/0 11/2022, 03/19/2023, Additional history exists CKD PHOS USE SMARTSET 57282 09/02/202408/13, 09/18/2022, 08/29/2021, Additional history exists Diabetic Eye Exam 10/23/2024 10/24/2023, , 10/09/2022, Additional history exists GFR 11/08/2024 05/11/2024, 04/12, 2024, Additional history exists Albumin/Creatinine Ratio 04/27/2025 024, 02/19/2023, 03/14/2022, Additional history exists CKD HGB USE SMARTSET 06003 05/11/202505/11, 05/11/2024, 04/27/2024, Additional history exists Colonoscopy 02/09/2027 02/09/2022, 08/14, 12/07/2008 Colorectal Cancer Screening 02/09/2027 DXA Scan 12/14/2028 12/14/2021 Lipid Panel 04/27/2029 04/27/2024, 0709/2022, 03/14/2022, Additional history exists DTap/Tdap Vaccines (3 - Td or Tdap) 08/30/2030 08/30/2020, 05/02/2010, 08/12/2004 Zoster Vaccines Completed 01/29/2020, 07/22/2019 RETIRED - COLONOSCOPY-EVERY 5 YRS AGES 18-100 Discontinued 02/09/2022, 09/11/2018, 12/07/2008 Pneumococcal Vaccine: 65+ Years Completed 03/14/2022, 03/19/2006 COVID-19 Vaccine Completed 05/08/2024, , 09/20/2022, Additional history exists HPV (Gardasil) Vaccine Aged Out No lo nger eligible based on patient's age to complete this topic Hepatitis B Vaccine Aged Out No longe r eligible based on patient's age to complete this topic MENINGOCOCCAL (MENACTRA/MENVEO) Aged Out No longer eligible based on patient's age to complete this topic documented as of this encounter Medical Devices Implanted Type Area Mobile Lounge Driver Or Operator Device Identifier Shelf Expiration Date Model / Serial / Lot Envista Hydrophobic Acrylic Intraocular Lens Implanted:Qty: 1 on 12/25/2016 by Raul Neely MD at OR [facility] Right: Eye [employer]OMB 11/09/2018 [id number] / [id number] / [id number] Envista Mx60 +10.0 D Implanted:Qty: 1 on 01/29/2017 by Raul Neely MD at [facility] Left: Eye 11/09/2018 [id number] / [id number] / [id number] documented as of this encounter Visit Diagnoses Diagnosis Anemia due to stage 3a chronic kidney disease (HCC)- Primary documented in this encounter Administered Medications Inactive Administered Medications - up to 3 most recent administrations Medication Order MAR Action Action Date Dose Rate Site Epoetin Gautam-epbx (Retacrit) 72054 UNIT/ML inj 40,000 Units 40,000 Units, Subcutaneous, ONCE, On Sat05/13/24 at 1115, For 1 dose Given 05/13/2024 10:49 AM EDT 40,000 Units Arm Left Upper documented in this encounter Advance Directives * Full Code (Latest Code Status on File) Date Activated Date Inactivated Comments 01/01/2024 10:33 AM 01/01/2024 3:09 PM This order reflects the patients wishes and were consensually agreed upon. Question Answer Comments Discussion of Advance Directives occurred with: Patient * Full Code Date Activated Date Inactivated Comments 01/01/2024 9:34 AM 01/01/2024 10:33 AM This order reflects the patients wishes and were consensually agreed upon. Question Answer Comments Discussion of Advance Direct lawrence occurred with: Not Discussed due to patient's condition * Full Code Date Activated Date Inactivated Comments 09/26/2023 9:14 AM 09/26/2023 2:17 PM This order r eflects the patients wishes and were consensually agreed upon. Question Answer Comments Discussion of Advance Direct lawrence occurred with: Not Discussed due to patient's condition * Full Code Date Activated Date Inactivated Comments 09/26/2023 8:39 AM 09/26/2023 9:14 AM This order r eflects the patients wishes and were consensually agreed upon. Question Answer Comments Discussion of Advance Direct lawrence occurred with: Not Discussed due to patient's condition * Full Code Date Activated Date Inactivated Comments 01/29/2017 9:44 AM 01/29/2017 3:56 PM This order r eflects the patients wishes and were consensually agreed upon. Care Teams Weight Yardage Checker Relationship Specialty Start Date End Date Nancy Ryan DO [address] [place] [address] [place] [address] PCP - General Internal Medicine 09/11/18 documented as of this encounter
--- OUTSIDE RECORDS SUMMARY | 2024-05-15 23:01 | External Medical Summary | Summary of Care ---
Author Name Unknown Organization [facility] Address [address] [place] [address] Phone [phone] Care Team Providers Care Tap Dancer Name Role Phone Nancy Ryan DO Primary Care Provider Reason for Visit * Reason Onset Date Comments Home Health 05/12/2024 Appointment 05/12/2024 ABDULKADIR at Encounter Details Date Type Department Care Team (Late st Contact Info) Description 05/12/2024 Telephone Family Medicine [address] [place] [phone] Nancy Ryan DO [address] [place] [address] [place] [phone] Home Health; Appointment (ABDULKADIR at ) Allergies No known active allergiesdocumented as of this encounter (statuses as of 05/14/2024) Medications Medication Sig Dispensed Refills Start Date End Date Status Blood Glucose Monitoring Suppl ([employer] Moca World TechnologyTOUCH ULTRA SYSTEM) W/DEVICE KITIndications:DM type 2, goal [...] DX e11.9 100 Each 3 10/17/2021 Active OneTouch Verio In Vitro Strip (Glucose Blood) Use to test blood sugars twice a day. Dx. E11.9 300 Strip 1 03/13/2023 Active OneTouch Delica Lancets 30GIndications:Ty pe 2 diabetes mellitus with diabetic neuropathy, with long-term current use of insulin ([facility]) Use TWICE a day to test glucose Diagnosis = E11.9 200 Each 3 03/19/2023 Active Epoetin Gautam-epbx 83392 UNIT/ML Injection Solution (Retacrit) Inject 2 mL [...] Additional Information Patient not taking.Reported on 04/30/2024 [place]-3 Fish Oil 1000 MG Oral Capsule ([place]-3) Take 1 Capsule by mouth in the [...] as of this encounter (statuses as of 05/14/2024) Active Problems Problem Noted Date Diagnosed Date [...] Overview: Non-obstructive. 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 ant icoagulant therapy 03/16/2005 [...] as of this encounter (statuses as of 05/14/2024) Immunizations Name Administration Dates Next Due COVID-19 mRNA, LNP-s, No Pre serve, 2-Dose Series (Pfizer) 06/20/2021,10/22/2020,09/26/2020 COVID-19, LNP-s, No Preserve , Jamie-sucrose, Ages 12+ (Pfizer) 03/13/2022 COVID-19, MRNA-LNP, 24-25, P F, 50 MCG/0.5ML, IM, 12 YRS & ABOVE (Moderna - Spikevax) 05/08/2024 Covid-19, Mrna, Lnp-s, Pf, B ivalent, 30 Mcg, IM, 12 yrs and above (Pfizer) 09/20/2022 Pneumococcal Conjugate Vacci ne, 20-valent ([id number]) 03/14/2022 Pneumococcal Polysaccharide PPV23 (Pneumovax) 03/19/2006 Seasonal [...] Telephone Encounter - Torrie Friedman OSA - 05/12/2024 2:49 PM EDT I left message on patient's VM to call me (RE: Scheduling ABDULKADIR at ). * Telephone Encounter - Nancy Ryan DO - 05/12/2024 1:26 PM EDT Okay to change wound care supplies as listed in note below. ABIs ordered. Notify pt/home health. Schedule vascular study. * Telephone Encounter - Pat Randolph LPN - 05/12/2024 1:11 PM EDT HH Concerns Ebony RN, Calling from: [facility] Report/Concerns of: Wound Orders Narrative: Ebony calling in regarding wound care orders for patient, she stated that the most current order that she has is: Aquacel AG, ABD and cover with cling. She spoke with motor vehicle field representative with [facility] and they are follow with patient until wounds are healed. They are recommending the d/c of Aquacel Ag and use collagen with optifoam. They are also asking if ABDULKADIR's have been done recently and if not recommending that they be updated. Please advise Olga documented in this encounter Plan of Treatment Upcoming Encounters Date Type Department Care Team (Late st Contact Info) Description 05/26/2024 9:00 AM EDT Laboratory Laboratory [address] [place] [phone] [place] [address] 05/27/2024 10:30 AM EDT Immunization/Injectio n Hematology/Oncology Treatment, [address] [place] [phone] Jordana, Chair 11 Hem On[address] [place] [address] 06/02/2024 10:30 AM EDT Office Visit Sleep Disorders Ctr Manny Browne [place] [address] [place] [phone] Dorothy Toscano CRNP [address] [place] [address] 06/23/2024 9:15 AM EST Office Visit Hematology/Oncology [facility] [address] [place] [phone] Fly Velazquez MD [address] [place] [address] [place] [address] 09/18/2024 2:00 PM EST Office Visit Nephrology [address] [place] [address] Beckie Dunbar PA-C [address] [place] [address] 10/22/2024 10:00 AM EDT Office Visit Sleep Disorders Ctr [facility] [address] [place] [phone] Dorothy Toscano CRNP [address] [place] [address] 11/17/2024 9:30 AM EDT Office Visit Family Medicine [address] [place] [phone] Nancy Ryan[address] [place] [address] 11/24/2024 1:00 PM EDT Office Visit Cardiology [address] [place] [address] Prabhakar Henning PA-C [address] [place] [address] Scheduled Orders Name Type Priority Associated Diagnoses Orde r Schedule VASC ANKLE BRACHIAL INDICES WITHOUT PPG (PAD) Medical Imaging Routine Open wound of both lower extremities, subsequent encounter Ordered: 05/12/2024 Scheduled Procedures Name Priority Associated Diagnoses Date/Ti [...] Additional history exists CKD PHOS USE SMARTSET 34987 09/02/202408/13, 09/18/2022, 08/29/2021, Additional history exists Diabetic Eye Exam 10/23/2024 10/24/2023, , 10/09/2022, Additional history exists GFR 11/08/2024 05/11/2024, 04/12, 2024, Additional history exists Albumin/Creatinine Ratio 04/27/2025 024, 02/19/2023, 03/14/2022, Additional history exists CKD HGB USE SMARTSET 49377 05/11/202505/11, 05/11/2024, 04/27/2024, Additional history exists Colonoscopy 02/09/2027 02/09/2022, 08/14, 12/07/2008 Colorectal Cancer Screening 02/09/2027 DXA Scan 12/14/2028 12/14/2021 Lipid Panel 04/27/2029 04/27/2024, 07/09/2022, 03/14/2022, Additional history exists DTap/Tdap Vaccines (3 [...] this encounter Medical Devices Implanted Type Area Support Services Rep Device Identifier Shelf Expiration Date Model / Serial / Lot Envista Hydrophobic Acrylic Intraocular Lens Implanted:Qty: 1 on 12/25/2016 by Raul Neely MD at OR [facility] Right: Eye [employer]USCH [employer] LOMB 11/09/2018 [id number] / [id number] / [id number] Envista Mx60 +10.0 D Implanted:Qty: 1 on 01/29/2017 by Raul Neely MD at OR [facility] Left: Eye 11/09/2018 [id number] / [id number] / [id number] documented as of this encounter Visit Diagnoses Diagnosis Open wound of both lower extremities, subsequent encounter- Primary documented in this encounter Advance Directives * [...] and were consensually agreed upon. Care Teams Tap Dancer Relationship Specialty Start Date End Date Nancy Ryan DO [address] [place] [address] [place] [phone] PCP - General Internal Medicine 09/11/18 documented as of this encounter
--- OUTSIDE RECORDS SUMMARY | 2024-05-15 23:01 | External Medical Summary | Summary of Care ---
Author Name Unknown Organization [facility] Address [address] [place] [address] Phone [phone] Care Team Providers Care Resin Shaver Name Role Phone Nancy Ryan DO Primary Care Provider Reason for Visit * Reason Onset Date Comments Home Health 05/12/2024 Appointment 05/12/2024 ABDULKADIR at Encounter Details Date Type Department Care Team (Late st Contact Info) Description 05/12/2024 Telephone Family Medicine [address] [place] [address] Nancy Ryan DO [address] [place] [address] [place] [address] Home Health; Appointment (ABDULKADIR at ) Allergies No known active allergiesdocumented as of this encounter (statuses as of 05/14/2024) Medications Medication Sig Dispensed Refills Start Date End Date Status Blood Glucose Monitoring Suppl (PowtoonTOUCH ULTRA SYSTEM) W/DEVICE KITIndications:DM type 2, goal [...] 200 Each 3 03/19/2023 Active Epoetin Gautam-epbx 20501 UNIT/ML Injection Solution (Retacrit) Inject 2 mL [...] Additional Information Patient not taking.Reported on 04/30/2024 [place]-3 Fish Oil 1000 MG Oral Capsule ([place]-3) Take 1 Capsule by mouth in the [...] CT scan at [facility] 05/2019 Mild nonproliferative diabet ic retinopathy of [...] Obesity Taxonomy 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 of inactive term 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 Informed of the wound care change, but patient does not want to switch from Aquacel AG to collagen because he feels it's been working well and his skin is very sensitive. Pam is going to keep the order as is. [employer] representatives don't see the patient, they base their recommendations off nursing documentation. [facility]red to [facility] schedule for ABDULKADIR appt. Appt with PCP 05/15 at 12:30pm SHABNAM Ryan. * Telephone Encounter - Torrie Friedman OSA [...] Randolph LPN - 05/12/2024 1:11 PM EDT Concerns Ebony RN, Calling from: Olga Report/Concerns of: Wound Orders Narrative: Ebony calling in regarding wound care orders for patient, she stated that the most current order that she has is: Aquacel AG, ABD and cover with cling. She spoke with entry level marketing representative with [employer] and they are follow [...] Care Team (Late st Contact Info) Description 05/15/2024 12:30 PM EDT Office Visit Family Medicine [address] [place] [phone] Nancy Ryan DO [address] [place] [address] [place] [address] 05/26/2024 9:00 AM EDT Laboratory Laboratory [address] [place] [phone] [address] [place] [address] 05/27/2024 10:30 AM EDT Immunization/Injectio n Hematology/Oncology Treatment, [place] [address] [place] [phone] Jordana, Chair 11 Hem Onc [facility] 200 [facility] [place] [address] 05/27/2024 2:00 PM EDT Imaging Vascular Lab, [facility] 2nd Floor, [place] [address] [place] [address] 06/02/2024 10:30 AM EDT Office Visit Sleep Disorders Ctr Manny Browne, [place] [address] [place] [phone] Dorothy Toscano CRNP [address] [place] [address] 06/23/2024 9:15 AM EST Office Visit Hematology/Oncology [facility] [address] [place] [phone] Fly Velazquez MD 200 [facility] [place] [address] 09/18/2024 2:00 PM EST Office Visit Nephrology [address] [place] [address] ZeBeckie cruz PA-C [address] [facility] [place] [address] 10/22/2024 10:00 AM EDT Office Visit Sleep Disorders Ctr Manny Browne, [place] [address] [place] [phone] Dorothy Toscano CRNP [address] [place] [address] 11/17/2024 9:30 AM EDT Office Visit Family Medicine [address] [place] [phone] [place] [address] 11/24/2024 1:00 PM EDT Office Visit Cardiology [address] [place] [address] Prabhakar Henning PA-C [address] [place] [address] Scheduled Orders Name Type Priority Associated Diagnoses [...] Additional history exists CKD PHOS USE SMARTSET 22837 09/02/202408/13, 09/18/2022, 08/29/2021, Additional history exists Diabetic Eye Exam 10/23/2024 10/24/2023, , 10/09/2022, Additional history exists GFR 11/08/2024 05/11/2024, 04/12, 2024, Additional history exists Albumin/Creatinine Ratio 04/27/2025 024, 02/19/2023, 03/14/2022, Additional history exists CKD HGB USE SMARTSET 42272 05/11/202505/11, 05/11/2024, 04/27/2024, Additional history exists Colonoscopy [...] this encounter Medical Devices Implanted Type Area Bridges Supervisor Device Identifier Shelf Expiration Date Model / Serial / Lot Envista Hydrophobic Acrylic Intraocular Lens Implanted:Qty: 1 on 12/25/2016 by Raul Neely MD at OR [facility] Right: Eye [employer]OM[employer] 11/09/2018 [id number] / [id number] / [id number] Envista Mx60 +10.0 D Implanted:Qty: 1 on 01/29/2017 by Raul Neely MD at OR [facility] Left: Eye 11/09/2018 [id number] / [id number] / [id number] documented as of this encounter Visit Diagnoses [...] and were consensually agreed upon. Care Teams Resin Shaver Relationship Specialty Start Date End Date Nancy Ryan DO [address] [place] [address] [place] [address] PCP - General Internal Medicine 09/11/18 documented as of this encounter
--- OUTSIDE RECORDS SUMMARY | 2024-05-15 23:01 | External Medical Summary | Summary of Care ---
Author Name Unknown Organization [facility] Address [address] [place] [address] Phone [phone] Care Team Providers Care Clinical Office Technician Name Role Phone RyanNancy martinez Primary Care Provider Reason for Visit * Reason Onset Date Comments Test Results 05/12/2024 Encounter Details Date Type Department Care Team (Late st Contact Info) Description 05/12/2024 Telephone Cardiology, [facility] [address] [place] [phone] Prabhakar Henning PA-C [address] [place], [place] [phone] Test Results Allergies No known active allergiesdocumented as of this encounter (statuses as of 05/13/2024) Medications Medication Sig Dispensed Refills Start Date End Date Status Blood Glucose Monitoring Suppl (CaroGenUCH ULTRA SYSTEM) W/DEVICE KITIndications:DM type 2, goal [...] 200 Each 3 03/19/2023 Active Epoetin Gautam-epbx 16081 UNIT/ML Injection Solution (Retacrit) Inject 2 mL [...] Additional Information Patient not taking.Reported on 04/30/2024 Diana-3 Fish Oil 1000 MG Oral Capsule (Diana-3) Take 1 Capsule by mouth in the [...] Obesity Taxonomy 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 of inactive term manager terminal current use of ant icoagulant therapy [...] (Pfizer) 09/20/2022 Pneumococcal Conjugate Vacci ne, 20-valent ([id number]) 03/14/2022 Pneumococcal Polysaccharide PPV23 (Pneumovax) 03/19/2006 Seasonal [...] encounter Miscellaneous Notes * Telephone Encounter - Tameka Kirk CMA - 05/12/2024 10:59 AM EDT ----- Message from Prabhakar Henning sent at 05/12/2024 7:12 AM EDT ----- Potassium is back in the normal range. Kidney function slightly improved, at baseline. Continue as prescribed. documented in this encounter Plan of Treatment Upcoming Encounters Date Type Department Care Team (Late st Contact Info) Description 05/26/2024 9:00 AM EDT Laboratory Laboratory [address] [place] [phone] [address] [place] [address] 05/27/2024 10:30 AM EDT Immunization/Injectio n Hematology[facility]cology [facility], [place] [facility] [phone] Jordana, Chair 11 Hem Onc [facility] 200 [facility] [place] [address] 06/02/2024 10:30 AM EDT Office Visit Sleep Disorders Ctr Manny Browne [place] [phone] Dorothy Toscano CRNP 132 [facility] [place] [address] 06/23/2024 9:15 AM EST Office Visit Hematology/Oncology [facility] [address] [place] [phone] Fly Velaqzuez MD [address] [place] [address] 09/18/2024 2:00 PM EST Office Visit Nephrology [address] [place] [address] Beckie Dunbar PA-C [address] [place] [address] 10/22/2024 10:00 AM EDT Office Visit Sleep Disorders Ctr Manny Browne, [place] [address] [place] [phone] Dorothy Toscano CRNP [address] [place] [address] 11/17/2024 9:30 AM EDT Office Visit Family Medicine [address] [place] [phone] [address] [place] [address] 11/24/2024 1:00 PM EDT Office Visit Cardiology [address] [place] [address] Prabhakar Henning PA-Sandi [address] [place] [address] Scheduled Procedures Name Priority Associated Diagnoses Date/Ti [...] Additional history exists CKD PHOS USE SMARTSET 04269 09/02/202408/13, 09/18/2022, 08/29/2021, Additional history exists Diabetic Eye Exam 10/23/2024 10/24/2023, , 10/09/2022, Additional history exists GFR 11/08/2024 05/11/2024, 04/12, 2024, Additional history exists Albumin/Creatinine Ratio 04/27/2025 024, 02/19/2023, 03/14/2022, Additional history exists CKD HGB USE SMARTSET 36757 05/11/202505/11, 05/11/2024, 04/27/2024, Additional history exists Colonoscopy [...] this encounter Medical Devices Implanted Type Area Fruit And Vegetable Inspector Device Identifier Shelf Expiration Date Model / Serial / Lot Envista Hydrophobic Acrylic Intraocular Lens Implanted:Qty: 1 on 12/25/2016 by Raul Neely MD at OR [facility] Right: Eye [employer] 11/09/2018 [id number] / [id number] / [id number] Envista Mx60 +10.0 D Implanted:Qty: 1 on 01/29/2017 by Raul Neely MD at OR [facility] Left: Eye 11/09/2018 [id number] / [id number] / [id number] documented as of this encounter Advance Directives * Full Code [...] and were consensually agreed upon. Care Teams Clinical Office Technician Relationship Specialty Start Date End Date Nancy Ryan DO [address] [place] [address] [place] [address] PCP - General Internal Medicine 09/11/18 documented as of this encounter
--- OUTSIDE RECORDS SUMMARY | 2024-05-15 23:02 | External Medical Summary | Summary of Care ---
Author Name Unknown Organization [facility] Address [address] [place] [address] Phone [phone] Care Team Providers Care Regulated Program Manager Name Role Phone Nancy Ryan DO Primary Care Provider Reason for Visit * Reason Onset Date Comments Appointment 05/11/2024 Encounter Details Date Type Department Care Team (Late st Contact Info) Description 05/11/2024 Telephone Access Center, [place] [address] [facility] *DO NOT REMOVE THIS DEPARTMENT* [place], [place] [phone] Services, Scheduling [address] [place] [address] Appointment Allergies No known active allergiesdocumented as of this encounter (statuses as of 05/11/2024) Medications Medication Sig Dispensed Refills Start Date End Date Status Blood Glucose Monitoring Suppl (ONETOUCH ULTRA SYSTEM) [...] 200 Each 3 03/19/2023 Active Epoetin Gautam-epbx 28782 UNIT/ML Injection Solution (Retacrit) Inject 2 mL [...] Additional Information Patient not taking.Reported on 04/30/2024 [place]-3 Fish Oil 1000 MG Oral Capsule ([place]-3) Take 1 Capsule by mouth in the [...] as of this encounter (statuses as of 05/11/2024) Active Problems Problem Noted Date Diagnosed Date [...] Non-obstructive. Noted on CT scan at [facility] 05/2019 Mild nonproliferative diabet ic retinopathy of [...] as of this encounter (statuses as of 05/11/2024) Resolved Problems Problem Noted Date Diagnosed Date [...] as of this encounter (statuses as of 05/11/2024) Immunizations Name Administration Dates Next Due COVID-19 mRNA, LNP-s, No Pre serve, 2-Dose Series (Pfizer) 06/20/2021,10/22/2020,09/26/2020 COVID-19, LNP-s, No Preserve , Jamie-sucrose, Ages 12+ (Pfizer) 03/13/2022 COVID-19, MRNA-LNP, 24-25, P F, 50 MCG/0.5ML, IM, 12 YRS & ABOVE (Moderna - Spikevax) 05/08/2024 Covid-19, Mrna, Lnp-s, Pf, B ivalent, 30 Mcg, IM, 12 yrs and above (Pfizer) 09/20/2022 Pneumococcal Conjugate Vacci ne, 20-valent ([id number]) 03/14/2022 Pneumococcal Polysaccharide PPV23 (Pneumovax) 03/19/2006 Seasonal Influenza, PF, 6 M & above, IM , (FluLaval or Fluzone) 05/19/2021,04/22/2020,06/03/2019,06/03,07/30/2017 Seasonal Influenza, Quadriva lent Hd (Fluzone Hd) 05/15/2023,06/25/2022 Seasonal Influenza, Quadriva lent, No Preserve, IM 08/22/2016 Seasonal Influenza, Trivalen t, (IIV3), with Preserv, (Fluzone) 04/26/2014,06/08/2013,07/28/2012,05/07,06/08/2010,05/31/2009,06/11/2008 ,06/17/2007 TD - Tetanus/Diptheria (ADULT) 08/12/2004 [...] encounter Miscellaneous Notes * Telephone Encounter - Anu Bardales OSA - 05/11/2024 11:13 AM EDT Pt reschedueld for wed as he has to go to [place] * Telephone Encounter - Mago Anne OSA - 05/11/2024 11:05 AM EDT Patient calling to reschedule appointment for tomorrow. documented in this encounter Plan of Treatment Upcoming Encounters Date Type Department Care Team (Late st Contact Info) Description 05/13/2024 10:30 AM EDT Immunization/Injec tion Hematology/Oncology Treatment, [place] [address] [place] [phone] [place], Chair 11 Hem Onc [place] [address] [place] [address] 06/02/2024 10:30 AM EDT Office Visit Sleep Disorders Ctr Manny Browne, [place] [address] [place] [phone] Dorothy Toscano CRNP [address] [place] [address] 06/23/2024 9:15 AM EST Office Visit Hematology/Oncology [facility] [address] [place] [phone] Fly Velazquez MD [address] [place] [address] 09/18/2024 2:00 PM EST Office Visit Nephrology [address] [place] [address] Beckie Dunbar PA-C [address] [place] [address] 10/22/2024 10:00 AM EDT [facility] [place] [address] [place] [phone] Dorothy Toscano CRNP [address] [place] [address] 11/17/2024 9:30 AM EDT Office Visit Family Medicine [address] [place] [phone] [place] [address] 11/24/2024 1:00 PM EDT Office Visit Cardiology [address] [place] [address] Prabhakar Henning PAJoseC 132 [place] [address] Scheduled Procedures Name Priority Associated Diagnoses Date/Ti [...] Additional history exists CKD PHOS USE SMARTSET 99769 09/02/202408/13, 09/18/2022, 08/29/2021, Additional history exists Diabetic Eye Exam 10/23/2024 10/24/2023, , 10/09/2022, Additional history exists GFR 10/25/2024 04/27/2024, 01/11, 01/20/2024, Additional history exists Albumin/Creatinine Ratio 04/27/2025 024, 02/19/2023, 03/14/2022, Additional history exists CKD HGB USE SMARTSET 96153 04/27/202504/27, 04/27/2024, 04/14/2024, Additional history exists Colonoscopy 02/09/2027 02/09/2022, 08/14, 12/07/2008 Colorectal Cancer Screening 02/09/2027 DXA Scan 12/14/2028 12/14/2021 Lipid Panel 04/27/2029 04/27/2024, 07/0 09/2022, 03/14/2022, Additional history exists DTap/Tdap Vaccines (3 [...] this encounter Medical Devices Implanted Type Area Bulk Loader Device Identifier Shelf Expiration Date Model / Serial / Lot Envista Hydrophobic Acrylic Intraocular Lens Implanted:Qty: 1 on 12/25/2016 by Raul Neley MD at OR [facility] Right: Eye [employer] 11/09/2018 [id number] / [id number] / [id number] Envista Mx60 +10.0 D Implanted:Qty: 1 on 01/29/2017 by Raul Neely MD at OR [facility] Left: Eye 11/09/2018 [id number] / [id number] / [id number] documented as of this encounter Advance Directives [...] and were consensually agreed upon. Care Teams Regulated Program Manager Relationship Specialty Start Date End Date Nancy Ryan DO [address] [place] [address] [place] [phone] PCP - General Internal Medicine 09/11/18 documented as of this encounter
--- OUTSIDE RECORDS SUMMARY | 2024-05-15 23:02 | External Medical Summary | Summary of Care ---
Author Name Unknown Organization [facility] Address [address] [place] [address] Phone [phone] Care Team Providers Care Crosscutter Rolled Glass Name Role Phone Nancy Ryan DO Primary Care Provider [phone] Reason for Visit * Reason Onset Date Comments Home Health 05/12/2024 Appointment 05/12/2024 ABDULKADIR at Encounter Details Date Type Department Care Team (Late st Contact Info) Description 05/12/2024 Telephone Family Medicine [address] [place] [phone] Nancy Ryan DO [address] [place] [address] [place] [address] Home Health; Appointment (ABDULKADIR at ) Allergies No known active allergiesdocumented as of this encounter (statuses as of 05/12/2024) Medications Medication Sig Dispensed Refills Start Date End Date Status Blood Glucose Monitoring Suppl (dentalDoctorsTOUCH ULTRA SYSTEM) W/DEVICE KITIndications:DM type 2, goal A1c below 7 Use as directed 4 times a day. Use up to four times a day as directed. Diagnosis = E11.9 1 Kit 0 06/29/2015 Active BD Pen Needle Wilda U/F 32G X 4 MM (Insulin Pen Needle)Indication s:Type 2 diabetes mellitus with diabetic neuropathy, with long-term current use of insulin ([facility]),Type 2 diabetes mellitus with hemoglobin A1c [...] neuropathy, with long-term current use of insulin ([facility]) Use TWICE a day to test glucose Diagnosis = E11.9 200 Each 3 03/19/2023 Active Epoetin Gautam-epbx 13340 UNIT/ML Injection Solution (Retacrit) Inject 2 mL [...] Additional Information Patient not taking.Reported on 04/30/2024 [place]-3 Fish Oil 1000 MG Oral Capsule ([place]-3) Take 1 Capsule by mouth in the [...] as of this encounter (statuses as of 05/12/2024) Active Problems Problem Noted Date Diagnosed Date [...] as of this encounter (statuses as of 05/12/2024) Resolved Problems Problem Noted Date Diagnosed Date [...] Obesity Taxonomy 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 of inactive term 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 current use of ant icoagulant therapy 03/16/2005 [...] as of this encounter (statuses as of 05/12/2024) Immunizations Name Administration Dates Next Due COVID-19 mRNA, LNP-s, No Pre serve, 2-Dose Series (Pfizer) 06/20/2021,10/22/2020,09/26/2020 COVID-19, LNP-s, No Preserve , Jamie-sucrose, Ages 12+ (Pfizer) 03/13/2022 COVID-19, MRNA-LNP, 24-25, P F, 50 MCG/0.5ML, IM, 12 YRS & ABOVE (Moderna - Spikevax) 05/08/2024 Covid-19, Mrna, Lnp-s, Pf, B ivalent, 30 Mcg, IM, 12 yrs and above (Pfizer) 09/20/2022 Pneumococcal Conjugate Vacci ne, 20-valent ([id number]) 03/14/2022 Pneumococcal Polysaccharide PPV23 (Pneumovax) 03/19/2006 Seasonal [...] and cover with cling. She spoke with school admissions representative with [employer] and they are follow [...] Contact Info) Description 05/13/2024 10:30 AM EDT Immunization/Injectio n Hematology/[address] [phone] Jordana, Chair [address] Hem [address] [place] [address] 05/26/2024 9:00 AM EDT Laboratory Laboratory [address] [place] [phone] [place], Lab [address] [place] [address] 05/27/2024 10:30 AM EDT Immunization/Injectio n Hematology/Oncology [address], [address] [phone] Jordana, Chair 11 Hem On[address] [place] [address] 06/02/2024 10:30 AM EDT Office Visit Sleep Disorders Ctr Manny Browne, [place] [address] [place] [phone] Dorothy Tsocano CRNP [address] [place] [address] 06/23/2024 9:15 AM EST Office Visit Hematology/Oncology [facility] [address] [place] [phone] Fly Velazquez MD [address] [place] [address] 09/18/2024 2:00 PM EST Office Visit Nephrology [address] [place] [address] Beckie Dunbar PA-C [address] [place] [address] 10/22/2024 10:00 AM EDT Office Visit Sleep Disorders Ctr [facility] [address] [place] [phone] Dorothy Toscano CRNP [address] [place] [address] 11/17/2024 9:30 AM EDT Office Visit Family Medicine [address] [place] [phone] Nancy [address] [place] [address] 11/24/2024 1:00 PM EDT Office Visit Cardiology [address] [place] [address] Prabhakar Henning PA-C [address] [place] [address] Scheduled Orders Name Type Priority Associated Diagnoses [...] Additional history exists CKD PHOS USE SMARTSET 15915 09/02/202408/13, 09/18/2022, 08/29/2021, Additional history exists Diabetic Eye Exam 10/23/2024 10/24/2023, , 10/09/2022, Additional history exists GFR 11/08/2024 05/11/2024, 04/12, 2024, Additional history exists Albumin/Creatinine Ratio 04/27/2025 024, 02/19/2023, 03/14/2022, Additional history exists CKD HGB USE SMARTSET 20056 05/11/202505/11, 05/11/2024, 04/27/2024, Additional history exists Colonoscopy 02/09/2027 02/09/2022, 08/14, 12/07/2008 Colorectal Cancer Screening 02/09/2027 DXA Scan 12/14/2028 12/14/2021 Lipid Panel 04/27/2029 04/27/2024, 070 09/2022, 03/14/2022, Additional history exists DTap/Tdap Vaccines [...] this encounter Medical Devices Implanted Type Area Functional Skills Tutor Device Identifier Shelf Expiration Date Model / Serial / Lot Envista Hydrophobic Acrylic Intraocular Lens Implanted:Qty: 1 on 12/25/2016 by Raul Neely MD at OR [facility] Right: Eye [employer]OM[employer] 11/09/2018 [id number] / [id number] / [id number] Envista Mx60 +10.0 D Implanted:Qty: 1 on 01/29/2017 by Raul Neely MD at OR [facility] Left: Eye 11/09/2018 [id number] / [id number] / [id number] documented as of this encounter Visit Diagnoses [...] and were consensually agreed upon. Care Teams Crosscutter Rolled Glass Relationship Specialty Start Date End Date Nancy Ryan DO [address] [place] [address] [place] [address] PCP - General Internal Medicine 09/11/18 documented as of this encounter
--- OUTSIDE RECORDS SUMMARY | 2024-05-15 23:02 | External Medical Summary ---
Author Name Unknown Address Unknown Organization K01:[facility] [place] [facility] [address] [facility] [address] Laboratory Report Ordering Provider Test Date Status ML MURCIA 05/11/2024 09:05:24 Final Observation Date Value Abnormality Reference (Units ) Status WBC, Total 05/11/2024 09:05:24 6.06 4.00-10.80 (K/uL) Final RBC 05/11/2024 09:05:24 3.09 4.50-5.25 (M/uL) Final Hemoglobin 05/11/2024 09:05:24 9.3 Below low normal 14.0-16.8 (g/dL) Final HCT 05/11/2024 09:05:24 28.0 Below low normal 40.0-48.4 (%) Final MCV 05/11/2024 09:05:24 90.6 82.0-99.5 (fL) Final MCH 05/11/2024 09:05:24 30.1 27.0-34.0 (pg) Final MCHC 05/11/2024 09:05:24 33.2 32.0-36.0 (g/dL) Final RDW 05/11/2024 09:05:24 16.4 11.5-15.5 (%) Final Platelets 05/11/2024 09:05:24 175 140-400 (K/uL) Final MPV 05/11/2024 09:05:24 10.0 6.6-11.1 (fL) Final Nucleated erythrocytes/100 leukocytes [Ratio] in Blood by Automated count 05/11/2024 09:05:24 0 <=0 (/100 WBCs) Final Performing Location [facility] [place] [address] [place] [address]
--- OUTSIDE RECORDS SUMMARY | 2024-05-15 23:02 | External Medical Summary | Summary of Care ---
Author Name Unknown Organization [facility] Address [address] [place] [address] Phone [phone] Care Team Providers Care Finish Sander Name Role Phone RyanNancy martinez Primary Care Provider Reason for Visit * Reason Onset Date Comments Test Results 05/06/2024 Encounter Details Date Type Department Care Team (Late st Contact Info) Description 05/06/2024 Telephone Cardiology, [facility] [address] [place] [phone] Prabhakar Henning PA-C [address] [place], [place] [phone] Test Results Allergies No known active allergiesdocumented as of this encounter (statuses as of 05/06/2024) Medications Medication Sig Dispensed Refills Start Date End Date Status Blood Glucose Monitoring Suppl (Bright Beginnings DaycareUCH ULTRA SYSTEM) W/DEVICE KITIndications:DM type 2, goal [...] 200 Each 3 03/19/2023 Active Epoetin Gautam-epbx 39982 UNIT/ML Injection Solution (Retacrit) Inject 2 mL [...] Additional Information Patient not taking.Reported on 04/30/2024 Detroit-3 Fish Oil 1000 MG Oral Capsule (Detroit-3) Take 1 Capsule by mouth in the [...] as of this encounter (statuses as of 05/06/2024) Active Problems Problem Noted Date Diagnosed Date [...] as of this encounter (statuses as of 05/06/2024) Resolved Problems Problem Noted Date Diagnosed Date [...] Obesity Taxonomy 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 03/16/2005 [...] as of this encounter (statuses as of 05/06/2024) Immunizations Name Administration Dates Next Due COVID-19 mRNA, LNP-s, No Pre serve, 2-Dose Series ([facility]) 06/20/2021,10/22/2020,09/26/2020 COVID-19, LNP-s, No Preserve , Jamie-sucrose, Ages 12+ (Pfizer) 03/13/2022 Covid-19, Mrna, Lnp-s, Pf, B ivalent, 30 Mcg, IM, 12 yrs and above (Pfizer) 09/20/2022 Pneumococcal Conjugate Vacci ne, 20-valent ([id number]) 03/14/2022 Pneumococcal Polysaccharide PPV23 (Pneumovax) 03/19/2006 Seasonal [...] encounter Miscellaneous Notes * Telephone Encounter - Bouchra Vásquez CMA - 05/06/2024 8:41 AM EDT My g sent. * Telephone Encounter - Bouchra Vásquez CMA - 05/06/2024 8:39 AM EDT ----- Message from Prabhakar Henning sent at 05/06/2024 7:34 AM EDT ----- Stable mild bilateral internal carotid artery disease. Results unchanged for a number of years. OK documented in this encounter Plan of Treatment Upcoming Encounters Date Type Department Care Team (Late st Contact Info) Description 05/11/2024 9:00 AM EDT Laboratory Laboratory [address] [place] [phone] [address] [place] [address] 05/12/2024 10:30 AM EDT Immunization/Injectio n Hematology/Oncology Treatment, [place] 200 [facility] [place] [phone] Jordana, Chair 11 Hem Onc [facility] 200 [facility] [place] [address] 06/02/2024 10:30 AM EDT Office Visit Sleep Disorders Ctr M[facility]ne [place] [address] [place] [phone] Dorothy Toscano CRNP [address] [place] [address] 06/23/2024 9:15 AM EST Office Visit Hematology/Oncology [facility] 200 [facility] [place] [phone] Fly Velazquez MD 200 [facility] [place] [address] 09/18/2024 2:00 PM EST Office Visit Nephrology [address] [place] [address] Beckie Dunbar PA-C 200 [facility] [place] [address] 10/22/2024 10:00 AM EDT Office Visit Sleep Disorders Ctr Manny Brow[facility] [place] [address] [place] [phone] Dorothy Toscano CRNP [address] [place] [address] 11/17/2024 9:30 AM EDT Office Visit Family Medicine [address] [place] [phone] Nancy Ryan [address] [place] [address] 11/24/2024 1:00 PM EDT Office Visit Cardiology [address] [place] [address] Prabhakar Henning PA-C [address] [place] [address] Scheduled Procedures Name Priority Associated Diagnoses Date/Ti me COLONOSCOPY FLEXIBLE PROXIMAL DIAGNOSTIC Recall History of colon polyps Health Maintenance Due Date Last Done Comments Cologuard 2002 Sigmoidoscopy 2002 Fecal Occult Blood Test 07/07/2011 07/07/20 10, 08/25/2003, 12/16/1998 Depression Screening 01/28/2021 01/29/2020 Adult Wellness Visit 2023 Diabetic Foot Exam 03/14/2023 03/14/2022, 0 11/30/2015, 11/09/2014, Additional history exists COVID-19 Vaccine ( season) 2024 06/28/2023, 09/20/2022, 03/13/2022, Additional history exists Influenza Vaccine (FLU shot) (#1) 2024 05/15/2023, 06/25/2022, 05/19/2021, Additional history exists HbA1c 06/24/2024 12/23/2023, 12/0 11/2022, 03/19/2023, Additional history exists CKD PHOS USE SMARTSET 20432 09/02/202408/13, 09/18/2022, 08/29/2021, Additional history exists Diabetic Eye Exam 10/23/2024 10/24/2023, , 10/09/2022, Additional history exists GFR 10/25/2024 04/27/2024, 01/11, 01/20/2024, Additional history exists Albumin/Creatinine Ratio 04/27/2025 024, 02/19/2023, 03/14/2022, Additional history exists CKD HGB USE SMARTSET 71810 04/27/202504/27, 04/27/2024, 04/14/2024, Additional history exists Colonoscopy 02/09/2027 02/09/2022, 08/14, 12/07/2008 Colorectal Cancer Screening 02/09/2027 DXA Scan 12/14/2028 12/14/2021 Lipid Panel 04/27/2029 04/27/2024, 07/0 09/2022, 03/14/2022, Additional history exists DTap/Tdap Vaccines (3 - Td or Tdap) 08/30/2030 08/30/2020, 05/02/2010, 08/12/2004 Zoster Vaccines Completed 01/29/2020, 07/22/2019 RETIRED - COLONOSCOPY-EVERY 5 YRS AGES 18-100 Discontinued 02/09/2022, 09/11/2018, 12/07/2008 Pneumococcal Vaccine: 65+ Years Completed 03/14/2022, 03/19/2006 HPV (Gardasil) Vaccine Aged Out No lo nger eligible based on patient's age to complete this topic Hepatitis B Vaccine Aged Out No longe r eligible based on patient's age to complete this topic MENINGOCOCCAL (MENACTRA/MENVEO) Aged Out No longer eligible based on patient's age to complete this topic documented as of this encounter Medical Devices Implanted Type Area Public School Teacher Device Identifier Shelf Expiration Date Model / Serial / Lot Envista Hydrophobic Acrylic Intraocular Lens Implanted:Qty: 1 on 12/25/2016 by Raul Neely MD at OR [facility] Right: Eye [employer] 11/09/2018 [id number] / [id number] Envista Mx60 +10.0 D Implanted:Qty: 1 on 01/29/2017 by Raul Neely MD at OR [facility] Left: Eye 11/09/2018 [id number] / [id number] documented as of this encounter Advance Directives [...] and were consensually agreed upon. Care Teams Finish Sander Relationship Specialty Start Date End Date Nancy Ryan DO [address] [place] [address] [place] [address] PCP - General Internal Medicine 09/11/18 documented as of this encounter
--- OUTSIDE RECORDS SUMMARY | 2024-05-15 23:02 | External Medical Summary ---
Author Name Unknown Address Unknown Organization [id number]:[facility] - [address] [facility] [address] Laboratory Report Ordering Provider Test Date Status ML MURCIA 05/11/2024 09:05:24 Final Observation Date Value Abnormality Reference (Units ) Status SYNC LEUKOCYTES IN BLOOD BY AUTOMATED COUNT 05/11/2024 09:05:24 6.06 4.00-10.80 (K/uL) Final Segs 05/11/2024 09:05:24 65.7 40.0-75.0 (%) Final Lymphs % 05/11/2024 09:05:24 19.6 18.0-42.0 (%) Final Monos 05/11/2024 09:05:24 11.1 Above high normal 1.0-11.0 (%) Final Eosinophils 05/11/2024 09:05:24 2.8 0.0-6.0 (%) Final Basos 05/11/2024 09:05:24 0.5 0.0-2.0 (%) Final Immature Granulocyte, Percent 05/11/2024 09:05:24 0.3 0.0-2.0 (%) Final Absolute Segs 05/11/2024 09:05:24 3.98 1.80-7.70 (K/uL) Final Lymphs, absolute 05/11/2024 09:05:24 1.19 1.00-4.80 (K/ul) Final Monos, Abs 05/11/2024 09:05:24 0.67 0.00-1.10 (K/uL) Final Eos, Abs 05/11/2024 09:05:24 0.17 0.00-0.70 (K/uL) Final Basos, Abs 05/11/2024 09:05:24 0.03 0.00-0.20 (K/uL) Final Immature Granulocytes, Number 05/11/2024 09:05:24 0.02 0.00-0.20 (K/uL) Final Performing Location [facility] - [facility] [address] [facility] [address]
--- OUTSIDE RECORDS SUMMARY | 2024-05-15 23:02 | External Medical Summary ---
Author Name Unknown Address Unknown Organization [id number]:[facility] [place] - [facility] [address] [facility] [address] [place] [address] Laboratory Report Ordering Provider Test Date Status LIZETH IVEY 05/11/2024 09:05:24 Final Observation Date Value Abnormality Reference (Units ) Status BUN 05/11/2024 09:05:24 51 Above high normal 6-20 (mg/dL) Final Creatinine 05/11/2024 09:05:24 1.9 Above high normal 0.6-1.2 (mg/dL) Final Glomerular filtration rate/1.73 sq M.predicted [Volume Rate/Area] in Serum, Plasma or Blood by Creatinine-based formula (CKD-EPI) 05/11/2024 09:05:24 37 Below low normal >=60 (mL/min) Final eGFR is calculated based on the CKD-EPI 2020 equation. Sodium 05/11/2024 09:05:24 137 135-146 (m mol/L) Final Potassium 05/11/2024 09:05:24 4.8 3.5-5.1 (m mol/L) Final Cl 05/11/2024 09:05:24 105 98-107 (mm ol/L) Final CO2 05/11/2024 09:05:24 22 22-32 (mmo l/L) Final Anion gap 05/11/2024 09:05:24 10 7-15 (mmol /L) Final Glucose 05/11/2024 09:05:24 133 Above high normal 70 -120 (mg/dL) Final Calcium 05/11/2024 09:05:24 8.9 8.4-10.2 ( mg/dL) Final Performing Location [facility] [place] - [facility] [address] [place] [address]
--- OUTSIDE RECORDS SUMMARY | 2024-05-15 23:02 | External Medical Summary | Summary of Care ---
Author Name Unknown Organization [facility] Address [address] [place] [address] Phone [phone] Care Team Providers Care Title Attorney Name Role Phone Shelby Nancy Muro Primary Care Provider Reason for Visit * Reason Onset Date Comments Test Results 05/01/2024 Encounter Details Date Type Department Care Team (Late st Contact Info) Description 05/01/2024 Telephone Nephrology, [place] 200 [facility] [place] [address] Alejandrina Sims MD 200 [facility] [place] [address] Test Results Allergies No known active allergiesdocumented as of this encounter (statuses as of 05/01/2024) Medications Medication Sig Dispensed Refills Start Date End Date Status Blood Glucose Monitoring Suppl (Chanticleer HoldingsTOUCH ULTRA SYSTEM) W/DEVICE KITIndications:D M type 2, goal A1c below 7 Use as directed 4 times a day. Use up to four times a day as directed. Diagnosis = E11.9 1 Kit 0 06/29/20 15 Active BD Pen Needle Wilda U/F 32G X 4 MM (Insulin Pen Needle)Indicatio ns:Type 2 diabetes mellitus with diabetic neuropathy, with long-term current use of insulin (HCC),Type 2 diabetes mellitus with hemoglobin A1c goal of less than 7.0% ([facility]) Use once a day with basaglar. DX e11.9 100 Each 3 10/18/19 22 Active OneTouch Verio In Vitro Strip (Glucose Blood) Use to test blood sugars twice a day. Dx. E11.9 300 Strip 1 03/13/20 23 Active OneTouch Delica Lancets 30GIndications:T ype 2 diabetes mellitus with diabetic neuropathy, with long-term current use of insulin ([facility]) Use TWICE a day to test glucose Diagnosis = E11.9 200 Each 3 03/19/20 23 Active Epoetin Gautam-epbx 28823 UNIT/ML Injection Solution (Retacrit) Inject 2 mL intravenously once. Every two weeks Active Carvedilol 6.25 MG Oral Tablet (Coreg) TAKE 1 TABLET BY MOUTH TWICE A DAY WITH BREAKFAST AND DINNER 180 Tablet 3 12/05/19 24 Active Dorzolamide HCl-Timolol Mal 2-0.5 % Ophthalmic Solution (Cosopt Ocumeter Plus) INSTILL 1 DROP INTO BOTH EYES BY OPHTHALMIC ROUTE ONCE IN THE MORING AND THE SECOND DROP AROUND 5 PM 10 mL 4 12/05/19 24 Active Ferrous Sulfate 325 (65 Fe) MG Oral Tablet (Feosol) Take 1 Tablet by mouth in the morning and 1 Tablet before bedtime. 100 Tablet 12/05/19 24 Active Additional Information Patient taking differently:325 mg OralMWF, Reported on 04/21/2024 Insulin Glargine Solostar 100 UNIT/ML Subcutaneous Solution Pen-injector (Basaglar KwikPen) Inject 10 Units under the skin in the morning. 15 mL 12/05/19 24 Active Additional Information Patient taking differently: 20 UnitsSubcutaneous Daily(AM), Reported on 03/27/2024 Melatonin 5 MG Oral Tablet Take 1 Tablet by mouth at bedtime. 30 Tablet 12/05/19 24 Active Additional Information Patient taking differently:5 mg OralHS PRN, Reported on 04/30/2024 Multiple Vitamin Oral Tablet Take 1 Tablet by mouth in the morning. 30 Tablet 12/05/19 24 Active Additional Information Patient not taking.Reported on 04/30/2024 [place]-3 Fish Oil 1000 MG Oral Capsule ([place]-3) Take 1 Capsule by mouth in the morning. 30 Capsule 12/05/19 24 Active Torsemide 20 MG Oral Tablet (Demadex) Take 1 Tablet by mouth in the morning. 90 Tablet 3 12/05/19 24 Active Vitamin B-12 1000 MCG Oral Tablet (Cyanocobalamin) Take 1 Tablet by mouth in the morning. 30 Tablet 12/05/19 24 Active Vitamin C 500 MG Oral Tablet Chewable Take 2 Tablets by mouth in the morning. 100 Tablet 12/05/19 24 Active CPAP every night at bedtime. Active Magnesium Oxide -Mg Supplement 400 (240 Mg) MG Oral Tablet (Mag-Ox) Take 1 Tablet by mouth in the morning and 1 Tablet before bedtime. 180 Tablet 1 01/07/20 24 Active Pantoprazole Sodium 40 MG Oral Tablet Delayed Release (Protonix) Take 1 Tablet by mouth in the morning. 01/08/20 24 Active Losartan Potassium 25 MG Oral Tablet (Cozaar) Take 1 Tablet by mouth in the morning. 90 Tablet 3 01/08/20 24 Active Ozempic (2 MG/DOSE) 8 MG/3ML Subcutaneous Solution Pen-injector (Semaglutide (2 MG/DOSE))Indicat ions:Type 2 diabetes mellitus with diabetic neuropathy, with long-term current use of insulin (HCC) Inject 2 mg under the skin once a week. DX E11.9 Diabetes Mellitus 3 mL 5 01/27/20 24 Active Rhopressa 0.02 % Ophthalmic Solution Instill 1 Drop into eye at bedtime. 2.5 mL 6 03/27/20 24 Active Atorvastatin Calcium 20 MG Oral Tablet (Lipitor) Take 1 Tablet by mouth in the morning. 90 Tablet 1 04/07/20 24 Active Vancomycin HCl 125 MG Oral Capsule (Vancocin) Take 1 Capsule by mouth every 6 hours. For 10 days 04/22/20 24 Active Allopurinol 100 MG Oral Tablet (Zyloprim)Indica tions:Hyperurice michael Take 2 Tablets by mouth in the morning. Take 1 tablet by mouth in the morning. 05/01/20 24 Active Allopurinol 100 MG Oral Tablet (Zyloprim) Take 1 Tablet by mouth in the morning. Take 1 tablet by mouth in the morning. 90 Tablet 3 03/31/20 24 024 Discontinued Hospital, Clinic, or Other Facility [...] as of this encounter (statuses as of 05/01/2024) Active Problems Problem Noted Date Diagnosed Date [...] Non-obstructive. 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/16/2005 [...] as of this encounter (statuses as of 05/01/2024) Immunizations Name Administration Dates Next Due COVID-19 mRNA, LNP-s, No Pre serve, 2-Dose Series (Pfizer) 06/20/2021,10/22/2020,09/26/2020 COVID-19, LNP-s, No Preserve , Jamie-sucrose, Ages 12+ (Pfizer) 03/13/2022 Covid-19, Mrna, Lnp-s, Pf, B ivalent, 30 Mcg, IM, 12 yrs and above (Pfizer) 09/20/2022 Pneumococcal Conjugate Vacci ne, 20-valent ([id number]) 03/14/2022 Pneumococcal Polysaccharide PPV23 (Pneumovax) 03/19/2006 Seasonal [...] Telephone Encounter - Carmela Layne RN - 05/01/2024 3:14 PM EDT Left detailed message on identified line. Lab order placed and med list updated. * Telephone Encounter - Carmela Layne RN - 05/01/2024 3:12 PM EDT ----- Message from Alejandrina Sims MD sent at 05/01/2024 2:54 PM EDT ----- Agree w/ cardiology comments/treatment plans. Note also uric acid elevated >> >>>if not taking allopurinol as rx'd, recommend he do so; if IS taking allopurinol as rx'd, recommend increase to 200 mg daily and recheck uric acid when rechecks labs (would delay lab recheck until on allopurinol higher dose for at least a week) MyG sent; neph nurse pls place orders, f/u w/ pt documented in this encounter Plan of Treatment Upcoming Encounters Date Type Department Care Team (Late st Contact Info) Description 05/05/2024 10:30 AM EDT Imaging Radiology [address] [place] [address] 05/11/2024 9:00 AM EDT Laboratory Laboratory [address] [place] [phone] [place] [address] 05/12/2024 10:30 AM EDT Immunization/Injectio n Hematology/Oncology Treatment, [place] [address] [facility] [place] [phone] Jordana, Chair 11 Hem On[address] [place] [address] 06/02/2024 10:30 AM EDT Office Visit [facility] Disorders Ctr [facility] [place] [address] [place] [phone] Dorothy Toscano CRNP [address] [place] [address] 06/23/2024 9:15 AM EST Office Visit Hematology/Oncology [facility] [address] [place] [phone] Fly Velazquez MD [address] [place] [address] 09/18/2024 2:00 PM EST Office Visit Nephrology [address] [place] [address] Beckie Dunbar PA-C [address] [place] [address] 10/22/2024 10:00 AM EDT Office Visit Sleep Disorders Ctr [facility] [address] [place] [phone] Dorothy Toscano CRNP [address] [place] [address] 11/17/2024 9:30 AM EDT Office Visit Family Medicine [address] [place] [phone] [place] [address] 11/24/2024 1:00 PM EDT Office Visit Cardiology [address] [place] [address] Prabhakar Henning PA-C [address] [place] [address] Scheduled Orders Name Type Priority Associated Diagnoses Orde r Schedule URIC ACID Lab Routine Hyperuricemia Expected: 05/04/2024 (Approximate), Expires: 05/01/2025 Scheduled Procedures Name Priority Associated Diagnoses Date/Ti [...] Additional history exists CKD PHOS USE SMARTSET 70466 09/02/202408/13, 09/18/2022, 08/29/2021, Additional history exists Diabetic Eye Exam 10/23/2024 10/24/2023, , 10/09/2022, Additional history exists GFR 10/25/2024 04/27/2024, 01/11, 01/20/2024, Additional history exists Albumin/Creatinine Ratio 04/27/2025 024, 02/19/2023, 03/14/2022, Additional history exists CKD HGB USE SMARTSET 94700 04/27/202504/27, 04/27/2024, 04/14/2024, Additional history exists Colonoscopy [...] this encounter Medical Devices Implanted Type Area Composite Technician Device Identifier Shelf Expiration Date Model / Serial / Lot Envista Hydrophobic Acrylic Intraocular Lens Implanted:Qty: 1 on 12/25/2016 by Raul Neely MD at [facility] Right: Eye [employer]OM[employer] 11/09/2018 [id number] / [id number] / [id number] Envista Mx60 +10.0 D Implanted:Qty: 1 on 01/29/2017 by Raul Neely MD at OR [facility] Left: Eye 11/09/2018 [id number] / [id number] / [id number] documented as of this encounter Visit Diagnoses Diagnosis Hyperuricemia- Primary Other abnormal blood chemistry documented in this encounter Advance Directives * [...] and were consensually agreed upon. Care Teams Title Attorney Relationship Specialty Start Date End Date Nancy Ryan DO [address] [place] [address] [place] [address] PCP - General Internal Medicine 09/11/18 documented as of this encounter
--- OUTSIDE RECORDS SUMMARY | 2024-05-15 23:02 | External Medical Summary | Summary of Care ---
Author Name Unknown Organization [facility] Address [address] [place] [address] Phone [phone] Care Team Providers Care Catalogue Illustrator Name Role Phone Nancy Ryan DO Primary Care Provider Reason for Visit * Reason Comments Outpatient Testing Encounter Details Date Type Department Care Team (Late st Contact Info) Description 05/11/2024 9:00 AM EDT Laboratory Laboratory [address] [place] [phone] [facility] [address] [place] [address] Anemia due to stage 3a chronic kidney disease (HCC); Chronic right-sided heart failure (HCC); Dyslipidemia, goal LDL below 70; HTN, goal below 130/80; Hyperuricemia Allergies No known active allergiesdocumented as of this encounter (statuses as of 05/11/2024) Medications Medication Sig Dispensed Refills Start Date End Date Status Blood Glucose Monitoring Suppl (Origami EnergyTOUCH ULTRA SYSTEM) W/DEVICE KITIndications:DM type 2, goal [...] 200 Each 3 03/19/2023 Active Epoetin Gautam-epbx 27472 UNIT/ML Injection Solution (Retacrit) Inject 2 mL [...] Additional Information Patient not taking.Reported on 04/30/2024 Romulus-3 Fish Oil 1000 MG Oral Capsule (Romulus-3) Take 1 Capsule by mouth in the [...] Obesity Taxonomy 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 [...] (Pfizer) 09/20/2022 Pneumococcal Conjugate Vacci ne, 20-valent ([id number]) 03/14/2022 Pneumococcal Polysaccharide PPV23 (Pneumovax) 03/19/2006 Seasonal [...] Team (Late st Contact Info) Description 05/12/2024 10:30 AM EDT Immunization/Injec tion Hematology/Oncology Treatment, [place] [address] [place] [phone] Jordana, Chair 11 Hem Onc [facility] [address] [place] [address] 06/02/2024 10:30 AM EDT Office Visit Sleep Disorders Ctr Manny Browne [place] [address] [place] [phone] Dorothy Toscano CRNP 132 [place] [address] 06/23/2024 9:15 AM EST Office Visit [facility] [place] [address] [place] [phone] Fly Velazquez MD [address] [place] [address] 09/18/2024 2:00 PM EST Office Visit Nephrology [address] [place] [address] Beckie Dunbar PA-C [address] [place] [address] 10/22/2024 10:00 AM EDT Office Visit [facility] Disorders Ctr [employer] [address] [place] [phone] Dorothy Toscano CRNP [address] [place] [address] 11/17/2024 9:30 AM EDT Office Visit Family Medicine [address] [place] [phone] [place] [address] 11/24/2024 1:00 PM EDT Office Visit Cardiology [address] [place] [address] Prabhakar Henning PA-C [address] [place] [address] Pending Results Name Type Priority Associated Diagnoses Date /Time CBC WITH WBC DIFFERENTIAL Lab STAT Anemia due to stage 3a chronic kidney disease (HCC) 05/11/2024 9:05 AM EDT BASIC METABOLIC PANEL Lab Routine Chronic right-sided heart failure (HCC) Dyslipidemia, goal LDL below 70 HTN, goal below 130/80 05/11/2024 9:05 AM EDT URIC ACID Lab Routine Hyperuricemia 05/11/2024 9:05 AM EDT CBC Lab STAT Anemia due to stage 3a chronic kidney disease (HCC) 05/11/2024 9:05 AM EDT DIFFERENTIAL, AUTOMATED Lab STAT Anemia due to stage 3a chronic kidney disease (HCC) 05/11/2024 9:05 AM EDT Scheduled Procedures Name Priority Associated [...] Additional history exists CKD PHOS USE SMARTSET 90362 09/02/202408/13, 09/18/2022, 08/29/2021, Additional history exists Diabetic Eye Exam 10/23/2024 10/24/2023, , 10/09/2022, Additional history exists GFR 10/25/2024 04/27/2024, 01/11, 01/20/2024, Additional history exists Albumin/Creatinine Ratio 04/27/2025 024, 02/19/2023, 03/14/2022, Additional history exists CKD HGB USE SMARTSET 07816 04/27/202504/27, 04/27/2024, 04/14/2024, Additional history exists Colonoscopy [...] this encounter Medical Devices Implanted Type Area Plush Finisher Device Identifier Shelf Expiration Date Model / Serial / Lot Envista Hydrophobic Acrylic Intraocular Lens Implanted:Qty: 1 on 12/25/2016 by Raul Neely MD at [facility] Right: Eye [employer]OM[employer] 11/09/2018 [id number] / [id number] / [id number] Envista Mx60 +10.0 D Implanted:Qty: 1 on 01/29/2017 by Raul Neely MD at OR [facility] Left: Eye 11/09/2018 [id number] / [id number] documented as of this encounter Visit Diagnoses Diagnosis Anemia due to stage 3a chronic kidney disease (HCC) Chronic right-sided heart failure (HCC) Congestive heart failure, unspecified Dyslipidemia, goal LDL below 70 Other and unspecified hyperlipidemia HTN, goal below 130/80 Unspecified essential hypertension [...] and were consensually agreed upon. Care Teams Catalogue Illustrator Relationship Specialty Start Date End Date Nancy Ryan DO [address] [place] [address] [place] [address] PCP - General Internal Medicine 09/11/18 documented as of this encounter
--- OUTSIDE RECORDS SUMMARY | 2024-05-15 23:02 | External Medical Summary ---
Author Name Unknown Address Unknown Organization [id number]:LABORATORY [facility] [place] - [address] [place] [address] Laboratory Report Ordering Provider Test Date Status JANI CHUNG 05/11/2024 09:05:24 Final Observation Date Value Abnormality Reference (Units ) Status Uric Acid 05/11/2024 09:05:24 7.9 Above high normal 3. 4-7.0 (mg/dL) Final Performing Location LABORATORY C - [address] [place] [address]
--- OUTSIDE RECORDS SUMMARY | 2024-05-15 23:03 | External Medical Summary ---
Author Name Unknown Address Unknown Organization [id number]:LABORATORY [facility] [place] - [address] [place] [address] Laboratory Report Ordering Provider Test Date Status [place] 04/27/2024 09:34:21 Final Observation Date Value Abnormality Reference (Units ) Status Folic Acid 04/27/2024 09:34:21 >20.0 >4.5 (ng/ mL) Final Performing Location LABORATORY [facility] [place] - [address] [place] [address]
--- OUTSIDE RECORDS SUMMARY | 2024-05-15 23:03 | External Medical Summary ---
Author Name Unknown Address Unknown Organization [id number]:LABORATORY [facility] [place] - [address] [place] [address] Laboratory Report Ordering Provider Test Date Status ML MURCIA 04/27/2024 09:34:21 Final Observation Date Value Abnormality Reference (Units ) Status Iron 04/27/2024 09:34:21 54 45-176 (ug /dL) Final Iron-binding capacity 04/27/2024 09:34:21 273 250-425 (ug/dL) Final Transferrin Sat % 04/27/2024 09:34:21 20 15 -55 (%) Final Performing Location LABORATORY [facility] [place] - [address] [place] [address]
--- OUTSIDE RECORDS SUMMARY | 2024-05-15 23:03 | External Medical Summary ---
Author Name Unknown Address Unknown Organization [id number]:LABORATORY [facility] [place] - [address] [facility] [address] Laboratory Report Ordering Provider Test Date Status JANI CHUNG 04/27/2024 09:38:41 Final Observation Date Value Abnormality Reference (Units ) Status Color of Urine by Auto 04/27/2024 09:38:41 Light Yellow Colorless, Light Yellow, Yellow, Dark Yellow Final Clarity, Urine 04/27/2024 09:38:41 Clear Clear Final Glucose [Mass/volume] in Urine by Automated test strip 04/27/2024 09:38:41 Negative Negative (mg/dL) Final Bilirubin.total [Presence] in Urine by Automated test strip 04/27/2024 09:38:41 Negative Negative Final Ketones [Mass/volume] in Urine by Automated test strip 04/27/2024 09:38:41 Negative Negative (mg/dL) Final Specific gravity, Urine 04/27/2024 09:38:41 1.017 1.003-1.030 Final Hemoglobin [Presence] in Urine by Automated test strip 04/27/2024 09:38:41 Negative Negative Final pH, Urine 04/27/2024 09:38:41 6.0 5.0-7.5 (Units) Final Protein [Mass/volume] in Urine by Automated test strip 04/27/2024 09:38:41 Negative Negative (mg/dL) Final Urobilinogen [Mass/volume] in Urine by Automated test strip 04/27/2024 09:38:41 Normal Normal (mg/dL) Final Nitrite [Presence] in Urine by Automated test strip 04/27/2024 09:38:41 Negative Negative Final Leukocyte esterase [Presence] in Urine by Automated test strip 04/27/2024 09:38:41 Negative Negative Final RBC, Urine 04/27/2024 09:38:41 0-2 0-2 (/HPF) Final WBC, Urine 04/27/2024 09:38:41 0-2 0-2 (/HPF) Final Bacteria [#/area] in Urine sediment by Microscopy high power field 04/27/2024 09:38:41 0-25 0-25 (/HPF) Final Performing Location LABORATORY [facility] [place] - [facility] [address] [facility] [place] [address]
--- OUTSIDE RECORDS SUMMARY | 2024-05-15 23:03 | External Medical Summary ---
Author Name Unknown Address Unknown Organization K01:LABORATORY [facility] [place] - [address] [place] [address] Laboratory Report Ordering Provider Test Date Status JANI CHUNG 04/27/2024 09:38:41 Final Normal: <150 mg/ g creatinine
High: 150-500 mg/g creatinine
Very High: >500 mg/g creatinine
Nephrotic: >3000 mg/g creatinine Observation Date Value Abnormality Reference (Units ) Status Protein/Creatinine [Ratio] in Urine 04/27/2024 09:38:41 <61 <150 (mg/g ) Final Protein, Urine 04/27/2024 09:38:41 <6 (mg/dL) Final Creatinine, Urine 04/27/2024 09:38:41 98 (mg/dL) Final Performing Location LABORATORY [facility] [place] - [address] [place] [address]
--- OUTSIDE RECORDS SUMMARY | 2024-05-15 23:03 | External Medical Summary ---
Author Name Unknown Address Unknown Organization K01:LABORATORY C - [address] [place] [address] Laboratory Report Ordering Provider Test Date Status ENID SELLERS 04/27/2024 09:34:21 Final Observation Date Value Abnormality Reference (Units ) Status Magnesium 04/27/2024 09:34:21 1.9 1.5-2.6 (m g/dL) Final Performing Location LABORATORY [facility] - [address] [place] [address]
--- OUTSIDE RECORDS SUMMARY | 2024-05-15 23:03 | External Medical Summary | Summary of Care ---
Author Name Unknown Organization [facility] Address [address] [place] [address] Phone [phone] Care Team Providers Care Marine Service Manager Name Role Phone Nancy Ryan DO Primary Care Provider Reason for Visit * Reason Comments Medication Administration Retacrit * Episode Based Medications (Routine) - Authorized Specialty Diagnoses / Procedures Referred By Contac t Referred To Contact Diagnoses Anemia due to stage 3a chronic kidney disease (HCC) Procedures KS INJ RETACRIT NON-ESRD USE Tameka Pires CRNP [address] [facility] [place] [address] Anc Hem/Onc En [place] DEPT CLOSED - 06/25/23 [address] [place] [phone] Referral ID Status Reason Start Date Expiration Date V isits Requested Visits Authorized [id number] Authorized 12/10/2023 06/04/[phone] Encounter Details Date Type Department Care Team (Late st Contact Info) Description 04/28/2024 10:30 AM EDT Immunization/I njection Hematology/Oncology Treatment, [place] [address] [place] [phone] Jordana, Chair [address] [place], [place] [id number] Anemia due to stage 3a chronic kidney disease (HCC)* Allergies No known active allergiesdocumented as of this encounter (statuses as of 04/28/2024) Medications Medication Sig Dispensed Refills Start Date End Date Status Blood Glucose Monitoring Suppl (LogicLibrary ULTRA SYSTEM) W/DEVICE KITIndications:DM type 2, goal [...] DX e11.9 100 Each 3 10/17/2021 Active Praekelt FoundationTouch Verio In Vitro Strip (Glucose Blood) Use to test blood sugars twice a day. Dx. E11.9 300 Strip 1 03/13/2023 Active Praekelt FoundationTouch Delica Lancets 30GIndications:Ty pe 2 diabetes mellitus with diabetic neuropathy, with long-term current use of insulin ([facility]) Use TWICE a day to test glucose Diagnosis = E11.9 200 Each 3 03/19/2023 Active Epoetin Gautam-epbx 22680 UNIT/ML Injection Solution (Retacrit) Inject 2 mL [...] mouth at bedtime. 30 Tablet 12/05/2023 Active Multiple Vitamin Oral Tablet Take 1 Tablet by mouth in the morning. 30 Tablet 12/05/2023 Active Sparta-3 Fish Oil 1000 MG Oral Capsule (Sparta-3) Take 1 Capsule by mouth in the [...] at bedtime. 2.5 mL 6 03/27/2024 Active Allopurinol 100 MG Oral Tablet (Zyloprim) Take 1 Tablet by mouth in the morning. Take 1 tablet by mouth in the morning. 90 Tablet 3 03/31/2024 Active Atorvastatin Calcium 20 MG Oral Tablet (Lipitor) Take 1 Tablet by mouth in the morning. 90 Tablet 1 04/07/2024 Active Vancomycin HCl 125 MG Oral Capsule (Vancocin) Take 1 Capsule by mouth every 6 hours for 14 days. For 7 days 56 Capsule 04/15/2024 04/29/20 24 Active Hospital, Clinic, or Other Facility Administered [...] as of this encounter (statuses as of 04/28/2024) Active Problems Problem Noted Date Diagnosed Date [...] as of this encounter (statuses as of 04/28/2024) Resolved Problems Problem Noted Date Diagnosed Date [...] Obesity Taxonomy 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 of inactive term shelter current use of ant icoagulant therapy 03/16/2005 [...] as of this encounter (statuses as of 04/28/2024) Immunizations Name Administration Dates Next Due COVID-19 mRNA, LNP-s, No Pre serve, 2-Dose Series (HipWay) 06/20/2021,10/22/2020,09/26/2020 COVID-19, LNP-s, No Preserve , Jamie-sucrose, Ages 12+ (HipWay) 03/13/2022 Covid-19, Mrna, Lnp-s, Pf, B ivalent, 30 Mcg, IM, 12 yrs and above (Pfizer) 09/20/2022 Pneumococcal Conjugate Vacci ne, 20-valent ([id number]) 03/14/2022 Pneumococcal Polysaccharide PPV23 (Pneumovax) 03/19/2006 Seasonal [...] Sign Reading Time Taken Comments Blood Pressure 144/86 04/28/2024 10:55 AM EDT Pulse - - Temperature - - Respiratory Rate - - Oxygen Saturation - - Inhaled Oxygen Concentration - - Weight - - Height - - Body Mass Index - - documented in this encounter Nursing Notes * Pat Trent LPN - 04/28/2024 10:56 AM EDT Pt arrived for Retacrit injection. Hgb 10.1. Administered in MARLENE. Pt tolerated well. BP WNL. To return in 2 weeks. Discharged in stable condition. documented in this encounter Plan of Treatment Upcoming Encounters Date Type Department Care Team (Late st Contact Info) Description 04/30/2024 2:30 PM EDT Office Visit Nephrology, [facility] [address] [facility] [place] [address] Beckie Dunbar PA-C [address] [facility] [place] [address] 05/05/2024 10:30 AM EDT Imaging Radiology [address] [place] [address] 05/11/2024 9:00 AM EDT Laboratory Laboratory [address] [place] [phone] [place], Lab [address] [place] [address] 05/12/2024 10:30 AM EDT Immunization/Injectio n Hematology/Oncology Treatment, [place] [address] [facility] [place] [phone] Jordana, Chair [address] [place] [address] 06/02/2024 10:30 AM EDT Office Visit Sleep Disorders Ctr Manny Browne [place] [address] [place] [phone] Dorothy Toscano CRNP [address] [place] [address] 06/23/2024 9:15 AM EST Office Visit Hematology/Oncology [facility] Jordana [place] [address] [facility] [place] [phone] Fly Velazquez MD [address] [facility] [place] [address] 09/18/2024 2:00 PM EST Office Visit Nephrology [address] [place] [address] Beckie Dunbar PA-C [address] [place] [address] 10/22/2024 10:00 AM EDT Office Visit Sleep Disorders Ctr Manny Browne, [place] [address] [place] [phone] Dorothy Toscano CRNP [address] [place] [address] 11/17/2024 9:30 AM EDT Office Visit Family Medicine [address] [place] [phone] Nancy [address] [place] [address] 11/24/2024 1:00 PM EDT Office Visit Cardiology [address] [place] [address] Prabhakar Henning PA-C [address] [place] [address] Scheduled Procedures Name Priority Associated Diagnoses Date/Ti [...] Additional history exists CKD PHOS USE SMARTSET 43606 09/02/202408/13, 09/18/2022, 08/29/2021, Additional history exists Diabetic Eye Exam 10/23/2024 10/24/2023, , 10/09/2022, Additional history exists GFR 10/25/2024 04/27/2024, 01/11, 01/20/2024, Additional history exists Albumin/Creatinine Ratio 04/27/2025 024, 02/19/2023, 03/14/2022, Additional history exists CKD HGB USE SMARTSET 72195 04/27/202504/27, 04/27/2024, 04/14/2024, Additional history exists Colonoscopy [...] this encounter Medical Devices Implanted Type Area Filter Screen Cleaner Device Identifier Shelf Expiration Date Model / Serial / Lot Envista Hydrophobic Acrylic Intraocular Lens Implanted:Qty: 1 on 12/25/2016 by Raul Neely MD at OR [facility] Right: Eye [employer] 11/09/2018 [id number] / [id number] Envista Mx60 +10.0 D Implanted:Qty: 1 on 01/29/2017 by Raul Neely MD at OR [facility] Left: Eye 11/09/2018 [id number] / [id number] / [id number] documented as of this encounter Visit Diagnoses Diagnosis Anemia due to stage 3a chronic kidney disease (HCC)- Primary documented in this encounter Administered Medications Inactive Administered Medications - up to 3 most recent administrations Medication Order MAR Action Action Date Dose Rate Site Epoetin Gautam-epbx (Retacrit) 84212 UNIT/ML inj 40,000 Units 40,000 Units, Subcutaneous, ONCE, On Sat04/28/24 at 1115, For 1 dose Given 04/28/2024 10:48 AM EDT 40,000 Units Arm Right Upper [...] and were consensually agreed upon. Care Teams Marine Service Manager Relationship Specialty Start Date End Date Nancy Ryan DO [address] [place] [address] [place] [address] PCP - General Internal Medicine 09/11/18 documented as of this encounter
--- OUTSIDE RECORDS SUMMARY | 2024-05-15 23:03 | External Medical Summary | Summary of Care ---
Author Name Unknown Organization [facility] Address [address] [place] [address] Phone [phone] Care Team Providers Care Court Of Appeals Judge Name Role Phone Nancy Ryan DO Primary Care Provider Reason for Visit * Reason Comments Outpatient Testing Encounter Details Date Type Department Care Team (Late st Contact Info) Description 04/27/2024 9:00 AM EDT Laboratory Laboratory [address] [place] [phone] [facility] [address] [place] [address] Anemia due to stage 3a chronic kidney disease (HCC); Dyslipidemia, goal LDL below 70; Encounter for monitoring diuretic therapy; Stage 3 chronic kidney disease, unspecified whether stage 3a or 3b CKD (HCC) Allergies No known active allergiesdocumented as of this encounter (statuses as of 04/30/2024) Medications Medication Sig Dispensed Refills Start Date End Date Status Blood Glucose Monitoring Suppl (Ship [employer] DuckTOUCH ULTRA SYSTEM) W/DEVICE KITIndications:DM type 2, goal A1c below 7 Use as directed 4 times a day. Use up to four times a day as directed. Diagnosis = E11.9 1 Kit 0 5 Active BD Pen Needle Wilda U/F 32G X 4 MM (Insulin Pen Needle)Indication s:Type 2 diabetes mellitus with diabetic neuropathy, with long-term current use of insulin (HCC),Type 2 diabetes mellitus with hemoglobin A1c goal of less than 7.0% (HCC) Use once a day with basaglar. DX e11.9 100 Each 3 2 Active OneTouch Verio In Vitro Strip (Glucose Blood) Use to test blood sugars twice a day. Dx. E11.9 300 Strip 1 3 Active OneTouch Delica Lancets 30GIndications:Ty pe 2 diabetes mellitus with diabetic neuropathy, with long-term current use of insulin ([facility]) Use TWICE a day to test glucose Diagnosis = E11.9 200 Each 3 3 Active Epoetin Gautam-epbx 12501 UNIT/ML Injection Solution (Retacrit) Inject 2 mL intravenously once. Every two weeks Active Carvedilol 6.25 MG Oral Tablet (Coreg) TAKE 1 TABLET BY MOUTH TWICE A DAY WITH BREAKFAST AND DINNER 180 Tablet 3 4 Active Dorzolamide HCl-Timolol Mal 2-0.5 % Ophthalmic Solution (Cosopt Ocumeter Plus) INSTILL 1 DROP INTO BOTH EYES BY OPHTHALMIC ROUTE ONCE IN THE MORING AND THE SECOND DROP AROUND 5 PM 10 mL 4 4 Active Ferrous Sulfate 325 (65 Fe) MG Oral Tablet (Feosol) Take 1 Tablet by mouth in the morning and 1 Tablet before bedtime. 100 Tablet 4 Active Additional Information Patient taking differently:325 mg OralMWF, Reported on 04/21/2024 Insulin Glargine Solostar 100 UNIT/ML Subcutaneous Solution Pen-injector (Basaglar KwikPen) Inject 10 Units under the skin in the morning. 15 mL 4 Active Additional Information Patient taking differently: 20 UnitsSubcutaneous Daily(AM), Reported on 03/27/2024 Melatonin 5 MG Oral Tablet Take 1 Tablet by mouth at bedtime. 30 Tablet 4 Active Additional Information Patient taking differently:5 mg OralHS PRN, Reported on 04/30/2024 Multiple Vitamin Oral Tablet Take 1 Tablet by mouth in the morning. 30 Tablet 4 Active Additional Information Patient not taking.Reported on 04/30/2024 [place]-3 Fish Oil 1000 MG Oral Capsule ([place]wich-3) Take 1 Capsule by mouth in the morning. 30 Capsule 4 Active Torsemide 20 MG Oral Tablet (Demadex) Take 1 Tablet by mouth in the morning. 90 Tablet 3 4 Active Vitamin B-12 1000 MCG Oral Tablet (Cyanocobalamin) Take 1 Tablet by mouth in the morning. 30 Tablet 4 Active Vitamin C 500 MG Oral Tablet Chewable Take 2 Tablets by mouth in the morning. 100 Tablet 4 Active CPAP every night at bedtime. Active Magnesium Oxide -Mg Supplement 400 (240 Mg) MG Oral Tablet (Mag-Ox) Take 1 Tablet by mouth in the morning and 1 Tablet before bedtime. 180 Tablet 1 4 Active Pantoprazole Sodium 40 MG Oral Tablet Delayed Release (Protonix) Take 1 Tablet by mouth in the morning. 4 Active Losartan Potassium 25 MG Oral Tablet (Cozaar) Take 1 Tablet by mouth in the morning. 90 Tablet 3 4 Active Ozempic (2 MG/DOSE) 8 MG/3ML Subcutaneous Solution Pen-injector (Semaglutide (2 MG/DOSE))Indicati ons:Type 2 diabetes mellitus with diabetic neuropathy, with long-term current use of insulin (HCC) Inject 2 mg under the skin once a week. DX E11.9 Diabetes Mellitus 3 mL 5 4 Active Rhopressa 0.02 % Ophthalmic Solution Instill 1 Drop into eye at bedtime. 2.5 mL 6 4 Active Allopurinol 100 MG Oral Tablet (Zyloprim) Take 1 Tablet by mouth in the morning. Take 1 tablet by mouth in the morning. 90 Tablet 3 4 Active Atorvastatin Calcium 20 MG Oral Tablet (Lipitor) Take 1 Tablet by mouth in the morning. 90 Tablet 1 4 Active Vancomycin HCl 125 MG Oral Capsule (Vancocin) Take 1 Capsule by mouth every 6 hours for 14 days. For 7 days 56 Capsule 4 04/29/20 24 Hospital, Clinic, or Other Facility Administered Medication [...] as of this encounter (statuses as of 04/30/2024) Active Problems Problem Noted Date Diagnosed Date [...] as of this encounter (statuses as of 04/30/2024) Resolved Problems Problem Noted Date Diagnosed Date [...] as of this encounter (statuses as of 04/30/2024) Immunizations Name Administration Dates Next Due COVID-19 mRNA, LNP-s, No Pre serve, 2-Dose Series (Pfizer) 06/20/2021,10/22/2020,09/26/2020 COVID-19, LNP-s, No Preserve , Jamie-sucrose, Ages 12+ (Pfizer) 03/13/2022 Covid-19, Mrna, Lnp-s, Pf, B ivalent, 30 Mcg, IM, 12 yrs and above (Pfizer) 09/20/2022 Pneumococcal Conjugate Vacci ne, 20-valent (Obiwbss28) 03/14/2022 Pneumococcal Polysaccharide PPV23 (Pneumovax) 03/19/2006 Seasonal [...] Miscellaneous Notes * Result Encounter Note - Prabhakar Henning PA-C - 04/28/2024 6:59 AM EDT ok * Result Encounter Note - Prabhakar Henning PA-C - 04/28/2024 6:59 AM EDT Laboratory work reveals a mildly elevated potassium and mild decline in kidney function compared toprior. Discontinue multivitamin. Stop rajq-pjn-qekdgqo potassium if taking (not on list). No salt substitutes. No NSAIDs. Tried to avoid foods known to be high in potassium. Recheck a basic metabolic panel in 10 to 14 days. documented in this encounter Plan of Treatment Upcoming Encounters Date Type Department Care Team (Late st Contact Info) Description 05/05/2024 10:30 AM EDT Imaging Radiology [address] [place] [address] 05/11/2024 9:00 AM EDT Laboratory Laboratory [address] [place] [phone] [place], Lab [address] [place] [address] 05/12/2024 10:30 AM EDT Immunization/Injectio n Hematology/Oncology Treatment, [place] [address] [place] [phone] Jordana, Chair 11 Hem Onc [facility] [address] [place] [address] 06/02/2024 10:30 AM EDT Office Visit Sleep Disorders Ctr Manny Browne [place] [address] [place] [phone] Dorothy Toscano CRNP [address] [place] [address] 06/23/2024 9:15 AM EST Office Visit Hematology/Oncology [facility] [place] [address] [place] [phone] Fly Velazquez MD [address] [place] [address] 09/18/2024 2:00 PM EST Office Visit Nephrology [address] [place] [phone] ZeBeckie cruz PA-C [address] [place] [address] 10/22/2024 10:00 AM EDT Office Visit Sleep Disorders Ctr [facility] Emiliano Anthony [address] [place] [phone] Dorothy Toscano CRNP [address] [place] [address] 11/17/2024 9:30 AM EDT Office Visit Family Medicine [address] [place] [phone] [place] [address] 11/24/2024 1:00 PM EDT Office Visit Cardiology [address] [place] [phone] Prabhakar Henning PA-C [address] [place] [address] Pending Results Name Type Priority Associated Diagnoses Date /Time MAGNESIUM Lab Routine Stage 3 chronic kidney disease, unspecified whether stage 3a or 3b CKD (HCC) 04/30/2024 4:37 PM EDT Scheduled Procedures Name Priority Associated Diagnoses [...] Additional history exists CKD PHOS USE SMARTSET 51123 09/02/2024/2 09/2023, 09/18/2022, 08/29/2021, Additional history exists Diabetic Eye Exam 10/23/2024 10/24/2023, , 10/09/2022, Additional history exists GFR 10/25/2024 04/27/2024, 01/11, 01/20/2024, Additional history exists Albumin/Creatinine Ratio 04/27/2025 024, 02/19/2023, 03/14/2022, Additional history exists CKD HGB USE SMARTSET 22654 04/27/202504/27, 04/27/2024, 04/14/2024, Additional history exists Colonoscopy [...] this encounter Medical Devices Implanted Type Area Carriage Rider Device Identifier Shelf Expiration Date Model / Serial / Lot Envista Hydrophobic Acrylic Intraocular Lens Implanted:Qty: 1 on 12/25/2016 by Raul Neely MD at OR [facility] Right: Eye [employer] 11/09/2018 [id number] / [id number] / [id number] Envista Mx60 +10.0 D Implanted:Qty: 1 on 01/29/2017 by Raul Neely MD at OR [facility] Left: Eye 11/09/2018 [id number] / [id number] / [id number] documented as of this encounter Procedures Procedure Name Priority Date/Time Associated Diagnosis Comments DIFFERENTIAL, AUTOMATED STAT 04/27/2024 9:34 AM EDT Anemia due to stage 3a chronic kidney disease (HCC) COMPREHENSIVE METABOLIC PANEL STAT 04/27/2024 9:34 AM EDT Anemia due to stage 3a chronic kidney disease (HCC) FOLIC ACID STAT 04/27/2024 9:34 AM EDT Anemia due to stage 3a chronic kidney disease (HCC) IRON SCREEN, INCLUDING TIBC STAT 04/27/2024 9:34 AM EDT Anemia due to stage 3a chronic kidney disease (HCC) CBC STAT 04/27/2024 9:34 AM EDT Anemia due to stage 3a chronic kidney disease (HCC) CBC STAT 04/27/2024 9:34 AM EDT Anemia due to stage 3a chronic kidney disease (HCC) LDL CHOLESTEROL (DIRECT MEASURE) Routine 04/27/2024 9:34 AM EDT Dyslipidemia, goal LDL below 70 FERRITIN STAT 04/27/2024 9:34 AM EDT Anemia due to stage 3a chronic kidney disease (HCC) VITAMIN B12 STAT 04/27/2024 9:34 AM EDT Anemia due to stage 3a chronic kidney disease (HCC) documented in this encounter Results * DIFFERENTIAL, AUTOMATED (04/27/2024 9:34 AM EDT) WBC 5.81 4.00 - 10.80 K/uL 04/27/2024 11:08 PM EDT [facility] Neutrophils % 64.3 40.0 - 75.0 % 04/27/2024 11:08 PM EDT [facility] Lymphocytes % 21.2 18.0 - 42.0 % 04/27/2024 11:08 PM EDT [facility] Monocytes % 9.1 1.0 - 11.0 % 04/27/2024 11:08 PM EDT [facility] Eosinophils % 4.6 0.0 - 6.0 % 04/27/2024 11:08 PM EDT [facility] Basophils % 0.5 0.0 - 2.0 % 04/27/2024 11:08 PM EDT [facility] Immature Granulocytes % 0.3 0.0 - 2.0 % 04/27/2024 11:08 PM EDT [facility] Absolute Neutrophils 3.73 1.80 - 7.70 K/uL 04/27/2024 11:08 PM EDT [facility] Absolute Lymphocytes 1.23 1.00 - 4.80 K/ul 04/27/2024 11:08 PM EDT [facility] Absolute Monocytes 0.53 0.00 - 1.10 K/uL 04/27/2024 11:08 PM EDT [facility] Absolute Eosinophils 0.27 0.00 - 0.70 K/uL 04/27/2024 11:08 PM EDT [facility] Absolute Basophils 0.03 0.00 - 0.20 K/uL 04/27/2024 11:08 PM EDT [facility] Absolute Immature Granulocytes 0.02 0.00 - 0.20 K/uL 04/27/2024 11:08 PM EDT [facility] Blood Venous blood specimen / Unknown Venipuncture / Unknown 04/27/2024 9:34 AM EDT 04/27/2024 9:34 AM EDT Fly Velazquez MD LAB BLOOD ORDERABLES [facility] [address] [place] [address] * (ABNORMAL) CBC (04/27/2024 9:34 AM EDT) WBC 5.81 4.00 - 10.80 K/uL 04/27/2024 11:08 PM EDT [facility] RBC 3.28 4.50 - 5.25 M/uL 04/27/2024 11:08 PM EDT [facility] HGB 10.1(L) 14.0 - 16.8 g/dL 04/27/2024 11:08 PM EDT LABORATORY [facility] HCT 30.5(L) 40.0 - 48.4 % 04/27/2024 11:08 PM EDT [facility] MCV 93.0 82.0 - 99.5 fL 04/27/2024 11:08 PM EDT LAB[facility] MCH 30.8 27.0 - 34.0 pg 04/27/2024 11:08 PM EDT LAB[facility] MCHC 33.1 32.0 - 36.0 g/dL 04/27/2024 11:08 PM EDT LAB[facility] RDW 17.1 11.5 - 15.5 % 04/27/2024 11:08 PM EDT LAB[facility] PLT 151 140 - 400 K/uL 04/27/2024 11:08 PM EDT LAB[facility] MPV 10.3 6.6 - 11.1 fL 04/27/2024 11:08 PM EDT LAB[facility] nRBCs 0 <=0 /100 WBCs 04/27/2024 11:08 PM EDT [facility] Blood Venous blood specimen / Unknown Venipuncture / Unknown 04/27/2024 9:34 AM EDT 04/27/2024 9:34 AM EDT Fly Velazquez MD LAB BLOOD ORDERABLES [facility] [address], [place] [id number] * LDL CHOLESTEROL (DIRECT MEASURE) (04/27/2024 9:34 AM EDT) LDL Cholesterol (Direct Measure) 65 <=129 mg/dL 04/27/2024 11:20 PM EDT LAB[facility] Comment: LDL Cholesterol Reference Ranges (mg/dL): <70 Target level for high risk ASCVD patient <100 Optimal for general population 100-129 Near optimal for general population 130-159 Borderline high 160-189 High >=190 Very high Blood Venous blood specimen / Unknown Venipuncture / Unknown 04/27/2024 9:34 AM EDT 04/27/2024 9:34 AM EDT Prabhakar Henning PA-C LAB BLOOD ORDERABLE S [facility] [address] [place] [address] * IRON SCREEN, INCLUDING TIBC (04/27/2024 9:34 AM EDT) Iron 54 45 - 176 ug/dL 04/27/2024 11:20 PM EDT LAB[facility]ORY [facility] Iron Binding Capacity 273 250 - 425 ug/dL 04/27/2024 11:20 PM EDT LABORATORY C Transferrin Saturation Percent 20 15 - 55 % 04/27/2024 11:20 PM EDT LABORATORY C Blood Venous blood specimen / Unknown Venipuncture / Unknown 04/27/2024 9:34 AM EDT 04/27/2024 9:34 AM EDT Fly Velazquez MD LAB BLOOD ORDERABLES Performing Organization Address [facility]/ZIP Co de Phone Number LABORATORY [facility] [address] [place] [address] * VITAMIN B12 (04/27/2024 9:34 AM EDT) Pathologist [facility] Vitamin B12 928 232 - 1,245 pg/mL 04/27/2024 11:57 PM EDT LABORATORY C Blood Venous blood specimen / Unknown Venipuncture / Unknown 04/27/2024 9:34 AM EDT 04/27/2024 9:34 AM EDT Fly Velazquez MD LAB BLOOD ORDERABLES Performing Organization Address City/[facility]/ZIP Co de Phone Number LABORATORY [facility] [address] [place] [address] * FOLIC ACID (04/27/2024 9:34 AM EDT) Pathologist [facility] Folic Acid >20.0 >4.5 ng/mL 04/27/2024 11:57 PM EDT [facility] Blood Venous blood specimen / Unknown Venipuncture / Unknown 04/27/2024 9:34 AM EDT 04/27/2024 9:34 AM EDT Fly Velazquez MD LAB BLOOD ORDERABLES Performing Organization Address City/[facility]/ZIP Co de Phone Number LAB[facility]ATORY [facility] [address] [place] [address] * (ABNORMAL) FERRITIN (04/27/2024 9:34 AM EDT) Ferritin 564(H) 30 - 400 ng/mL 04/27/2024 11:57 PM EDT LAB[facility]ORY [facility] Blood Venous blood specimen / Unknown Venipuncture / Unknown 04/27/2024 9:34 AM EDT 04/27/2024 9:34 AM EDT Fly Velazquez MD LAB BLOOD ORDERABLES Performing Organization Address [facility] de Phone Number LAB[facility]ATORY [facility] [address] [place] [address] * (ABNORMAL) COMPREHENSIVE METABOLIC PANEL (04/27/2024 9:34 AM EDT) BUN 59(H) 6 - 20 mg/dL 04/27/2024 11:20 PM EDT LABOR[facility]ORY [facility] CREATININE 2.1(H) 0.6 - 1.2 mg/dL 04/27/2024 11:20 PM EDT LAB[facility] EGFR 34(L) >=60 mL/min 04/27/2024 11:20 PM EDT LABORATORY C Comment:eGFR is calculated b ased on the CKD-EPI 2020 equation. SODIUM 143 135 - 146 mmol/L 04/27/2024 11:20 PM EDT [facility] POTASSIUM 5.2(H) 3.5 - 5.1 mmol/L 04/27/2024 11:20 PM EDT [facility] CHLORIDE 111(H) 98 - 107 mmol/L 04/27/2024 11:20 PM EDT [facility] CO2 21(L) 22 - 32 mmol/L 04/27/2024 11:20 PM EDT [facility] ANION GAP 11 7 - 15 mmol/L 04/27/2024 11:20 PM EDT [facility] GLUCOSE 125(H) 70 - 120 mg/dL 04/27/2024 11:20 PM EDT [facility] Albumin 3.7(L) 3.8 - 5.0 g/dL 04/27/2024 11:20 PM EDT [facility] AST 23 10 - 50 U/L 04/27/2024 11:20 PM EDT [facility] Alkaline Phosphatase 86 35 - 130 U/L 04/27/2024 11:20 PM EDT [facility] Bilirubin, Total 0.6 <=1.2 mg/dL 04/27/2024 11:20 PM EDT [facility] CALCIUM 8.8 8.4 - 10.2 mg/dL 04/27/2024 11:20 PM EDT [facility] Protein 6.8 6.0 - 8.3 g/dL 04/27/2024 11:20 PM EDT [facility] ALT 20 10 - 50 U/L 04/27/2024 11:20 PM EDT [facility] Blood Venous blood specimen / Unknown Venipuncture / Unknown 04/27/2024 9:34 AM EDT 04/27/2024 9:34 AM EDT Fly Velazquez MD LAB BLOOD ORDERABLES LAB[facility] [address] [place], [place] [id number] documented in this encounter Visit Diagnoses Diagnosis Anemia due to stage 3a chronic kidney disease (HCC) Dyslipidemia, goal LDL below 70 Other and unspecified hyperlipidemia Encounter for monitoring diuretic therapy Encounter for therapeutic drug monitoring Stage 3 chronic kidney disease, unspecified whether stage 3a or 3b CKD (HCC) documented in this encounter Advance Directives * [...] and were consensually agreed upon. Care Teams Court Of Appeals Judge Relationship Specialty Start Date End Date Nancy Ryan DO [address] [place] [address] [place] [address] PCP - General Internal Medicine 09/11/18 documented as of this encounter
--- OUTSIDE RECORDS SUMMARY | 2024-05-15 23:03 | External Medical Summary | Summary of Care ---
Author Name Unknown Organization [facility] Address [address] [place] [address] Phone [phone] Care Team Providers Care Fiscal Manager Name Role Phone RyanNancy martinez Primary Care Provider Reason for Visit * Reason Comments Return Visit Chronic Kidney Disease (CKD) Hypertension Encounter Details Date Type Department Care Team (Late st Contact Info) Description 04/30/2024 2:30 PM EDT Office Visit Nephrology, [address] [place] [address] Beckie Dunbar PA-C 200 [facility] [place] [address] Stage 3 chronic kidney disease, unspecified whether stage 3a or 3b CKD (HCC)*; HTN, goal below 140/90; Hyperkalemia; Hyperuricemia; Anemia of chronic disease Allergies No known active allergiesdocumented as of this encounter (statuses as of 05/01/2024) Medications Medication Sig Dispensed Refills Start Date End Date Status Blood Glucose Monitoring Suppl (HESIODOUCH ULTRA SYSTEM) W/DEVICE KITIndications:DM type 2, goal [...] 200 Each 3 03/19/2023 Active Epoetin Gautam-epbx 72569 UNIT/ML Injection Solution (Retacrit) Inject 2 mL [...] Additional Information Patient not taking.Reported on 04/30/2024 [place]-3 Fish Oil 1000 MG Oral Capsule ([place]-3) Take 1 Capsule by mouth in [...] 6 hours. For 10 days 04/22/2024 Active Hospital, Clinic, or Other Facility Administered [...] Obesity Taxonomy 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 of inactive term acid extractor current use of ant icoagulant therapy 03/16/2005 [...] (Pfizer) 09/20/2022 Pneumococcal Conjugate Vacci ne, 20-valent ([id number]) 03/14/2022 Pneumococcal Polysaccharide PPV23 (Pneumovax) 03/19/2006 Seasonal [...] Sign Reading Time Taken Comments Blood Pressure 126/68 04/30/2024 2:42 PM EDT Pulse 70 04/30/2024 2:42 PM EDT Temperature 37.2 C (98.9 F) 04/30/2024 2:42 PM ED T Respiratory Rate 20 04/30/2024 2:42 PM EDT Oxygen Saturation 100% 04/30/2024 2:42 PM EDT Inhaled Oxygen Concentration - - Weight 134.6 kg (296 lb 12.8 oz) 04/30/2024 2:42 PM EDT Height - - Body Mass Index 41.4 01/01/2024 9:50 AM EDT documented in this encounter Progress Notes * Beckie Dunbar PA-C - 04/30/2024 2:44 PM EDT NEPHROLOGY CLINIC NOTE NephrologyEn Dr [place] [address] Patient Name: Ronnie Wu Patient Active Problem List Diagnosis SPENCER (obstructive sleep apnea) Type 2 diabetes mellitus with diabetic neuropathy, with long-term current use of insulin ([facility]) Gout of wrist Venous insufficiency Vitamin B12 deficiency Dyslipidemia, goal LDL below 100 Venous stasis dermatitis of both lower extremities DM neuropathy, type II diabetes mellitus ([facility]) History of DVT (deep vein thrombosis) Venous stasis ulcer of calf ([facility]) H/O amputation of lesser toe, unspecified laterality ([facility]) HTN, goal below 140/90 Iron deficiency anemia due to chronic blood loss 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 associated with type 2diabetes mellitus ([facility]) Hyperkalemia Renal calculi Non-pressure chronic ulcer of unspecified part of left lower leg with unspecified severity ([facility]) Varicose veins of right lower extremity with ulcer other part of lower leg (CODE) ([facility]) Non-pressure chronic ulcer of unspecified part of right lower leg with unspecified severity ([facility]) Acute gout due to renal impairment involving right wrist Primary osteoarthritis of right wrist Carpal tunnel syndrome of right wrist Chronic right-sided heart failure ([facility]) Other specified peripheral vascular diseases ([facility]) Chronic gout due to renal impairment, multiple sites, without tophus (tophi) Tubular adenoma History of adenomatous polyp of colon Non-pressure chronic ulcer of lower leg, limited to breakdown of skin (HCC) Chronic venous hypertension (idiopathic) with ulcer of bilateral lower extremity (CODE) ([facility]) 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 ([facility]) Venous stasis ulcer of right calf limited to breakdown of skin ([facility]) Body mass index (BMI) of 40.0 to 44.9 in adult ([facility]) Full code status Chronic kidney disease, stage 3b (HCC) Anemia due to stage 3b chronic kidney disease ([facility]) BACKGROUND: 69 year old male presents for f/u of nonalbuminuric ckd 3 attributed to diabetic nephropathy, chronic uncontrolled hypertension, obesity, periodic NSAID use. Past Medical history includes DM since at least 2008 w/ early retinopathy, class 3 obesity, SPENCER on CPAP in past but off it as of summer 2022 admission, chronic lymphedema w/ past DVT and ongoing venous stasis ulcerations, gout follows w/ rheum,RLS. Has Fe def anemia > February 2022 w/ one adenomatous polyp, repeat in 2026 ; also with October 01, 2023 EGD showing gastritis and nonobstructing nonbleeding duodenal ulcers. Pt refuses po Fe d/t constipation. Follows w/ Dr Velazquez [facility] heme for DAGO and anemia care. Also w/ prn meloxicam on med list when he est care w/ me 10/2018. Follows w/ [facility] for DM. hx cough w/ACEi; ok on ARB. Legs wrapped b/c of sores, goes to wound clinic [facility]. When does not have have wraps, uses support hose; also has leg pumps and boots PT for vertigo in past Admitted [facility] May 2019 for hyperkalemia and acute kidney injury with presenting creatinine 2.1 and potassium 6. His RIKI-inhibitor was held at discharge; multiple other meds stopped including spironolactone. Admitted [facility] 01/29-02/09/23 after falling down stairs > had SDH, C spine and T spine frxs, rib and scapular fracture. Also had low sodium and high potassium. Then [facility] 1 [facility]. States INR was low while at [facility] (had been on lovenox whiel there) ; resumed coumadin at hospital d/c. Also admitted [facility] 08/13-08/16/23 for BLE cellulitis w/ diffuse calcinosis on CT and XRay. There was a question of calciphylaxis at [place] [facility] but no concern for this at [facility]. Also had stomach flu, withdark stools and 1 episode coffee ground emesis w/ hgb running at 8 through the stay. Started on PPI. For EGD next week. Also chlorthalidone held at hospital d/c. Has seen urology for prn f/u > MRI w/ BL cysts which urology states are benign; has never passeda stone. Tries to drink at least 64 oz daily water. Admitted [facility] 11/12- for E coli bacteremia and pyelonephritis along with bilateral lower extremity cellulitis and chronically infected lower extremity wounds.He fell at home in the middle of the night and laid there until his found him the following morning and called 911. Minimal oral intake the day prior to presentation at the hospital and believes this contributed to the fall. Hemoglobin on admission was 6.4. Aspirin, metformin, losartan were all stopped and torsemide held for 3 days. Allopurinol dose was also decreased. He was started on twice daily Protonix for 1 month and then asked to back down to once daily. Also started on oral iron. Concern on admission for acute to subacute a ppearing superior plate compression deformity of L2. For the bacteremia E coli, infectious diseasesrecommended 14 days of antibiotics total with the transition to oral Cipro at discharge. However due to prolonged QTC he was discharged on Augmentin for 3 days to complete the courseHis outpatient creatinine is fairly labile in the past six-months prior to admission and ranged from 1.6-2.3. It was 1.9 in October 30, 2023. Presenting creatinine 2.4, improved back to baseline by time of discharge >> stage 1 ZAHRAA on CKD w/ resolution. Resumed torsemide shortly after discharge since basic metabolic panel was stable. His mom 12/21/23 age 90 y/o. Drinks at least : 32 oz water daily. But aiming for 64oz Home blood pressure checks: No- no cuff at home - reports frequent bps at appts NSAID use: No - tylenol only, CBD gummy, Vape pen Herbals/supplements: Vit C, fish oil, History of stones: No- brother with hx Family history of CKD or ESRD: NO Today 04/30/24 Denies any recent procedures or infections. Accompanied by his . [facility] 01/12/24 ED visit due to potential maggots in the skin noted by [facility] nurse -none was noted at hospital Home health coming once weekly.Not using leg pumps a instructed but trying Wounds are healing but slowly they are smaller - wound dressing changed daily by Reports C diff from ER in November - recurrent bout currently on Vancomycin x 10 days He also reports some recent head cold and currently taking otc pain meds:nyquil and and tylenol Overall feeling well cold symptoms getting better . Diarrhea better but has not had a solid stool in months Admits to high potassium diet - catie modi Patient reports drinking ~64 oz of water daily. REVIEW OF SYSTEMS General: No fatigue, Respiratory: No wheezing, No shortness of breath, Cardiovascular:No chest pain, No palpitations, and No syncope, No fall since November Gastrointestinal: No nausea, vomiting, +diarrhea No blood in stools Urinary: No dysuira, No hematuria. No flank pain Musculoskeletal:+ edema Skin: No itching Current Outpatient Medications Medication Sig Dispense Refill Blood Glucose Monitoring Suppl (F3 Foods ULTRA SYSTEM) W/DEVICE KIT Use as directed [...] a day. Dx. E11.9 300 Strip 1 App in the AirTouch Delica Lancets 30G Use TWICE a day to test glucose Diagnosis = E11.9 200 Each 3 Epoetin Gautam-epbx 83840 UNIT/ML Injection Solution (Retacrit) Inject 2 mL intravenously once. Everytwo weeks Carvedilol 6.25 MG Oral Tablet (Coreg) TAKE 1 TABLET BY MOUTH TWICE A DAY WITH BREAKFAST AND [id number] Tablet 3 Dorzolamide HCl-Timolol Mal 2-0.5 % Ophthalmic Solution (Cosopt Ocumeter Plus) INSTILL 1 DROP INTO BOTH EYES BY OPHTHALMIC ROUTE ONCE IN THE MORING AND THE SECOND DROP AROUND 5 PM 10 mL 4 Ferrous Sulfate 325 (65 Fe) MG Oral Tablet (Feosol) Take 1 Tablet by mouth in the morning and 1 Tablet before bedtime. (Patient taking differently: Take 1 Tablet by mouth once a day on Saturday, Saturday, and Saturday only.) 100 Tablet 0 Insulin Glargine Solostar 100 UNIT/ML Subcutaneous Solution Pen-injector (Basaglar Pascale) Inject 10 Units under the skin in the morning. (Patient taking differently: Inject 20 Units under the skin in the morning.) 15 mL 0 Melatonin 5 MG Oral Tablet Take 1 Tablet by mouth at bedtime. (Patient taking differently: Take 1 Tablet by mouth at bedtime as needed.) 30 Tablet 0 [place]-3 Fish Oil 1000 MG Oral Capsule ([place]-3) Take 1 Capsule by mouth in the morning. 30 Capsule 0 Torsemide 20 MG Oral Tablet (Demadex) Take 1 Tablet by mouth in the morning. 90 Tablet 3 Vitamin B-12 1000 MCG Oral Tablet (Cyanocobalamin) Take 1 Tablet by mouth in the morning. 30 Tablet0 Vitamin C 500 MG Oral Tablet Chewable Take 2 Tablets by mouth in the morning. 100 Tablet 0 CPAP every night at bedtime. Magnesium Oxide -Mg Supplement 400 (240 Mg) MG Oral Tablet (Mag-Ox) Take 1 Tablet by mouth in the morning and 1 Tablet before bedtime. 180 Tablet 1 Pantoprazole Sodium 40 MG Oral Tablet Delayed Release (Protonix) Take 1 Tablet by mouth in the morning. Losartan Potassium 25 MG Oral Tablet (Cozaar) Take 1 Tablet by mouth in the morning. 90 Tablet 3 Ozempic (2 MG/DOSE) 8 MG/3ML Subcutaneous Solution Pen-injector (Semaglutide (2 MG/DOSE)) Inject 2 mg under the skin once a week. DX E11.9 Diabetes Mellitus 3 mL 5 Rhopressa 0.02 % Ophthalmic Solution Instill 1 Drop into eye at bedtime. 2.5 mL 6 Allopurinol 100 MG Oral Tablet (Zyloprim) Take 1 Tablet by mouth in the morning. Take 1 tablet by mouth in the morning. 90 Tablet 3 Atorvastatin Calcium 20 MG Oral Tablet (Lipitor) Take 1 Tablet by mouth in the morning. 90 Tablet 1 Vancomycin HCl 125 MG Oral Capsule (Vancocin) Take 1 Capsule by mouth every 6 hours. For 10 days Multiple Vitamin Oral Tablet Take 1 Tablet by mouth in the morning. (Patient not taking: Reported on 04/30/2024) 30 Tablet 0 Current Facility-Administered Medications Medication Dose Route Frequency Provider Last Rate Last Admin bevaCIZumab (Avastin) inj 1.25 mg 1.25 mg Intravitreal PRN Mika Diaz DO 1.25 mg at 06/13/23 1143 ROPivacaine (Naropin) inj 1.5 mg 1.5 mg Perineural PRN Mika Diaz DO 1.5 mg at PHYSICAL EXAMINATION Last 4 BP Readings: BP Readings from Last 4 Encounters: 04/28/24 144/86 04/21/24 126/78 04/14/24 144/84 03/31/24 148/73 Last 3 Weights: Wt Readings from Last 3 Encounters: 04/21/24 133.8 kg (295 lb) 03/27/24 135.6 kg (299 lb) 02/25/24 (!) 136.9 kg (301 lb 14.4 oz) BP 126/68 (BP Site: Right Arm, BP Position: Sitting, BP Cuff Size: Regular) | Pulse 70 | Temp 37.2 C (98.9 F) (Tympanic) | Resp 20 | Wt 134.6 kg (296 lb 12.8 oz) | SpO2 100% | BMI 41.40 kg/m | BSA 2.6 m Wt Readings from Last 1 Encounters: 04/30/24 134.6 kg (296 lb 12.8 oz) General appearance: alert, no apparent distress. Ambulatory without assistance HEAD: Normocephalic, No masses, lesions, tenderness Respiratory: clear to auscultation, no wheezes, and no crackles Heart: regular rate and regular rhythm Abdomen: abdomen soft, non-tender, and no CVA tenderness EXTREMITIES: + non pitting edema, No cyanosis or clubbing Skin: skin color, texture, turgor are normal NEURO: alert & oriented x 3 with fluent speech, no focal motor/sensory deficits No tremor Patient is a reliable historian of events LABS: Latest Reference Range & Units 11/25/23 05:44 11/29/23 05:35 12/02/23 05:26 12/23/23 10:35 01/20/24 10:40 02/03/24 10:55 04/27/24 09:34 SODIUM 135 - 146 mmol/L 138 136 138 138 138 139 143 POTASSIUM 3.5 - 5.1 mmol/L 4.6 4.6 4.2 4.4 4.8 4.6 5.2 (H) CHLORIDE 98 - 107 mmol/L 104 102 106 104 105 106 111 (H) CO2 22 - 32 mmol/L 20 (L) 22 21 (L) 21 (L) 20 (L) 22 21 (L) BUN 6 - 20 mg/dL 54 (H) 40 (H) 40 (H) 52 (H) 65 (H) 49 (H) 59 (H) CREATININE 0.6 - 1.2 mg/dL 1.6 (H) 1.7 (H) 1.8 (H) 1.9 (H) 1.9 (H) 1.8 (H) 2.1 (H) EGFR >=60 mL/min 47 (L) 45 (L) 42 (L) 40 (L) 37 (L) 42 (L) 34 (L) ANION GAP 7 - 15 mmol/L 14 12 11 13 13 11 11 GLUCOSE 70 - 120 mg/dL 124 (H) 102 103 243 (H) 148 (H) 186 (H) 125 (H) CALCIUM 8.4 - 10.2 mg/dL 9.1 8.1 (L) 8.6 9.1 9.4 9.0 8.8 (H): Data is abnormally high (L): Data is abnormally low Latest Reference Range & Units 05/19/21 13:37 03/14/22 10:48 02/19/23 10:35 08/23/23 00:00 04/27/24 09:38 Albumin / Creatinine Ratio, Urine <30 mg/g Creat 81 (H) 19 13 <12 MICROALBUMIN RATIO-OUTSIDE LAB SEE REPORT (E) Protein/ Creatinine Ratio, Urine <150 mg/g <61 (H): Data is abnormally high (E): External lab result Latest Reference Range & Units 03/13/21 09:52 05/16/21 09:09 08/29/21 11:32 12/25/21 10:44 02/19/23 10:35 09/02/23 10:36 04/27/24 09:34 Uric Acid 3.4 - 7.0 mg/dL 10.4 (H) 7.7 (H) 5.8 4.3 4.7 5.4 7.8 (H) (H): Data is abnormally high IMAGING: EXAM US RENAL-06/08/2020 9:10 am HISTORY follow up for cyst on right kidney found on 04/16/2019 imaging. 6 mo f/u from 12-03-19 TECHNIQUE Real time sonographic imaging. COMPARISON US RENAL dated 12/03/2019; US RENAL dated 04/16/2019 FINDINGS RIGHT KIDNEY: 14.3 cmx5.3 cmx6.5 cm. Normal size and echogenicity. No hydronephrosis. Cyst lower pole 2.9 x 2.2 x 2.7 cm previously 2.6 x 2.5 x 2.5 cm. 2.3 x 1.6 x 1.6 cm exophytic lesion at the mid-lower pole does not meet criteria for simple cyst. This could reflect a solid lesion, complex cyst or focal lobulation. Linear echogenic focus with shadowing right mid kidney in the region of the renal pelvis could reflect vascular calcification or less likely stone. LEFT KIDNEY: 14.0 cmx5.7 cmx5.6 cm. Normal size and echogenicity. No hydronephrosis, shadowing calculi, or mass. Cyst midportion 1.7 x 1.4 x 1.2 cm previously 1.4 x 1.3 x 1.5 cm. Cyst lower pole 2.5 x 1.6 x 1.8 cm previously 2.7 x 1.6 x 1.8 cm. Mild dilatation left renal pelvis and proximal lower pole infundibulum, without gordon hydronephrosis. This is new however since the prior study. BLADDER: Partially filled and otherwise unremarkable. AORTA: Normal in caliber. IMPRESSION IMPRESSION 1. Indeterminate 2.3 cm exophytic lesion mid-lower pole right kidney does not meet criteria for simple cyst. This could reflect a solid lesion, focal lobulation, or complex cyst. MRI kidneys without and with contrast, or CT kidneys without and with contrast suggested. Other renal lesions as above re flect cysts and are stable since the prior study. 2. 1.7 cm vascular calcification or less likely calculus at the right mid kidney. 3.Mild dilatation left renal pelvis and proximal lower pole infundibulum, without gordon hydronephrosis. This is new however since the prior study. ASSESSMENT/PLAN: The patient's most recent labs (from this month ago) were reviewed and the assessment/plan is as follows: CKD 3 without alubminuria. History ZAHRAA in setting of E coli bacteremia, in November but fully resolved.Recurrent C diff and currently on Vancomycin . Chemistries with recurrent hyperkalemia. Volume status stable Stage 3 chronic kidney disease, unspecified whether stage 3a or 3b CKD (HCC) (Primary) - MAGNESIUM; Future; Expected date: 04/30/2024 HTN, goal below 140/90 BP at target today. Continue remote monitor Cont [id number] mg, coreg 6.25 mg, and torsemide 20 mg Hyperkalemia Recurrent 5.2 with most recent labs . Patient educated on low potassium diet Hyperuricemia Elevated with recent labs- Denies any nown discomfort or gout flare. Medication dosing/compliance discussed Will repeat labs - URIC ACID; Future; Expected date: 05/07/2024 Anemia of chronic disease Cont with epo injection and follows with anemia clinic. HGB stabe at 10.1 Labs placed - will reassess his renal function after completion of antibiotics. Will aslo assess mag use which was started with hosp admission No changes to meds Resume leg pumps/optimal conservative management for HTN/edema Avoid medicines like aleve, advil, ibuprofen, aspirin more than 81 mg daily and other NSAIDS which are not good for kidney patients. Take only tylenol (acetaminophen) up to 2000 mg daily as needed for pain or as directed by your primary care provider. Reviewed previous status of kidney function and goals of care. All questions were answered. Follow-up: Return in about 6 months (around 10/28/2024). | Check-out note: With Bethany Dunbar PA-C Nephrology, [address] [place] [address] documented in this encounter Nursing Notes * Cristina Mckeon LPN - 04/30/2024 2:38 PM EDT Patient identified by verbal name and date of . Chief Complaint Patient presents with Return Visit Chronic Kidney Disease (CKD) Hypertension Pt was inpatient 12/03 for UTI Seen in [facility] ED 01/12/24 for right calf wound Pt currently on Vancomycin for C Dif 125 mg every 6 hours This is a second course Denies SOB buit has lower extremity edema bilaterally Pt is currently on the Remote Program Last labs 04/27/24 documented in this encounter Plan of Treatment Upcoming Encounters Date Type Department Care Team (Late st Contact Info) Description 05/05/2024 10:30 AM EDT Imaging Radiology [address] [place] [address] 05/11/2024 9:00 AM EDT Laboratory Laboratory [address] [place] [phone] [place] [address] 05/12/2024 10:30 AM EDT Immunization/Injectio n Hematology/Oncology Treatment, [place] [address] [facility] [place] [phone] [address], [address] Hem Onc [facility] [address] [place] [address] 06/02/2024 10:30 AM EDT Office Visit Sleep Disorders Ctr Manny Browne [place] [address] [place] [phone] Dorothy Toscano CRNP [address] [place] [address] 06/23/2024 9:15 AM EST Office Visit Hematology/Oncology [facility] [address] [place] [phone] Fly Velazquez MD [address] [place] [address] 09/18/2024 2:00 PM EST Office Visit Nephrology [address] [place] [address] Beckie Dunbar PA-C [address] [place] [address] 10/22/2024 10:00 AM EDT Office Visit Sleep Disorders Ctr Manny Browne [place] [address] [place] [phone] Dorothy Toscano CRNP [address] [place] [address] 11/17/2024 9:30 AM EDT Office Visit Family Medicine [address] [place] [phone] Shelby Nancy [address] [place] [address] 11/24/2024 1:00 PM EDT Office Visit Cardiology [address] [place] [address] Prabhakar Henning PA-C [address] [place] [address] Scheduled Orders Name Type Priority Associated Diagnoses Orde r Schedule URIC ACID Lab Routine Hyperuricemia Expected: 05/07/2024, Expires: 04/30/2025 Scheduled Procedures Name Priority Associated Diagnoses Date/Ti [...] Additional history exists CKD PHOS USE SMARTSET 63717 09/02/202408/13, 09/18/2022, 08/29/2021, Additional history exists Diabetic Eye Exam 10/23/2024 10/24/2023, , 10/09/2022, Additional history exists GFR 10/25/2024 04/27/2024, 01/11, 01/20/2024, Additional history exists Albumin/Creatinine Ratio 04/27/20252 024, 02/19/2023, 03/14/2022, Additional history exists CKD HGB USE SMARTSET 33910 04/27/202504/27, 04/27/2024, 04/14/2024, Additional history exists Colonoscopy [...] this encounter Medical Devices Implanted Type Area Final Inspector Shuttle Device Identifier Shelf Expiration Date Model / Serial / Lot Envista Hydrophobic Acrylic Intraocular Lens Implanted:Qty: 1 on 12/25/2016 by Raul Neely MD at [facility] Right: Eye [employer] 11/09/2018 [id number] / [id number] / [id number] Envista Mx60 +10.0 D Implanted:Qty: 1 on 01/29/2017 by Raul Neely MD at [place] [facility] Left: Eye 11/09/2018 [id number] / [id number] / [id number] documented as of this encounter Results * MAGNESIUM (04/27/2024 9:34 AM EDT) Magnesium 1.9 1.5 - 2.6 mg/dL 04/30/2024 4:59 PM EDT [facility] [place] Venous blood specimen / Unknown Venipuncture / Unknown 04/27/2024 9:34 AM EDT 04/27/2024 9:34 AM EDT Beckie Dunbar PA-C LAB BLOOD ORD ERABLES [facility] [address] [place] [address] documented in this encounter Visit Diagnoses Diagnosis Stage 3 chronic kidney disease, unspecified whether stage 3a or 3b CKD (HCC)- Primary HTN, goal below 140/90 Unspecified essential hypertension Hyperkalemia Hyperpotassemia Hyperuricemia Other abnormal blood chemistry Anemia of chronic disease Anemia of other chronic disease documented in this encounter Advance Directives * [...] and were consensually agreed upon. Care Teams Fiscal Manager Relationship Specialty Start Date End Date Nancy Ryan DO [address] [place] [address] [place] [address] PCP - General Internal Medicine 09/11/18 documented as of this encounter"
--- OUTSIDE RECORDS SUMMARY | 2024-05-15 23:03 | External Medical Summary ---
Author Name Unknown Address Unknown Organization [id number]:[facility] [place] [address] [place] [address] Laboratory Report Ordering Provider Test Date Status ML MURCIA 04/27/2024 09:34:21 Final Observation Date Value Abnormality Reference (Units ) Status Ferritin 04/27/2024 09:34:21 564 Above high normal 30 -400 (ng/mL) Final Performing Location LABORATORY [facility] - [address] [place] [address]
--- OUTSIDE RECORDS SUMMARY | 2024-05-15 23:03 | External Medical Summary ---
Author Name Unknown Address Unknown Organization [id number]:[facility] [place] [address] [place] [address] Laboratory Report Ordering Provider Test Date Status JANI CHUNG 04/27/2024 09:34:21 Final Observation Date Value Abnormality Reference (Units ) Status Uric Acid 04/27/2024 09:34:21 7.8 Above high normal 3. 4-7.0 (mg/dL) Final Performing Location LABORATORY C - [address] [place] [address]
--- OUTSIDE RECORDS SUMMARY | 2024-05-15 23:03 | External Medical Summary | Summary of Care ---
Author Name Unknown Organization [facility] Address [address] [place] [address] Phone [phone] Care Team Providers Care Automation Mechanic Name Role Phone RyanNancy martinez Primary Care Provider Reason for Visit * Reason Onset Date Comments Test Results 04/28/2024 Encounter Details Date Type Department Care Team (Late st Contact Info) Description 04/28/2024 Telephone Cardiology, [facility] [address] [place] [phone] Prabhakar Henning PA-C [address] [place], [place] [phone] Test Results Allergies No known active allergiesdocumented as of this encounter (statuses as of 04/30/2024) Medications Medication Sig Dispensed Refills Start Date End Date Status Blood Glucose Monitoring Suppl (PolicyGeniusUCH ULTRA SYSTEM) W/DEVICE KITIndications:DM type 2, goal [...] long-term current use of insulin ([facility]) Use TWICE a day to test glucose Diagnosis = E11.9 200 Each 3 3 Active Epoetin Gautam-epbx 57289 UNIT/ML Injection Solution (Retacrit) Inject 2 mL [...] Additional Information Patient not taking.Reported on 04/30/2024 Drayden-3 Fish Oil 1000 MG Oral Capsule (Drayden-3) Take 1 Capsule by mouth in the [...] mRNA, LNP-s, No Pre serve, 2-Dose Series (Wooop) 06/20/2021,10/22/2020,09/26/2020 COVID-19, LNP-s, No Preserve , Jamie-sucrose, Ages 12+ (Pfizer) 03/13/2022 Covid-19, Mrna, Lnp-s, Pf, B ivalent, 30 Mcg, IM, 12 yrs and above (Pfizer) 09/20/2022 Pneumococcal Conjugate Vacci ne, 20-valent ([id number]) 03/14/2022 Pneumococcal Polysaccharide PPV23 (Pneumovax) 03/19/2006 Seasonal [...] encounter Miscellaneous Notes * Telephone Encounter - Indira Sosa LPN - 04/28/2024 1:02 PM EDT Sent mychart will follow * Telephone Encounter - Indira Sosa LPN - 04/28/2024 12:49 PM EDT ----- Message from Prabhakar Henning sent at 04/28/2024 6:59 AM EDT ----- ok * Telephone Encounter - Indira Sosa LPN - 04/28/2024 12:49 PM EDT ----- Message from Prabhakar Henning sent at 04/28/2024 6:59 AM EDT ----- Laboratory work reveals a mildly elevated potassium and mild decline in kidney function compared toprior. Discontinue multivitamin. Stop nuih-fhu-sjkhjlh potassium if taking (not on list). No salt substitutes. No NSAIDs. Tried to avoid foods known to be high in potassium. Recheck a basic metabolic panel in 10 to 14 days. documented in this encounter Plan of Treatment Upcoming Encounters Date Type Department Care Team (Late st Contact Info) Description 05/05/2024 10:30 AM EDT Imaging Radiology [address] [place] [address] 05/11/2024 9:00 AM EDT Laboratory Laboratory [address] [place] [phone] [place] [address] 05/12/2024 10:30 AM EDT Immunization/Injectio n Hematology/Oncology Treatment, [place] [address] [facility] [place] [phone] Jordana, Chair 11 Hem Onc [address] [place] [address] 06/02/2024 10:30 AM EDT Office Visit Sleep Disorders Ctr [facility] 132 [facility] [place] [phone] Dorothy [facility]osc[facility] CRNP [facility] [address] 06/23/2024 9:15 AM EST Office Visit Hematology/Oncology [facility] 200 [place] [phone] Fly Velazquez MD [address] [facility] [place] [address] 09/18/2024 2:00 PM EST Office Visit Nephrology [address] [place] [address] Beckie Dunbar PA-C [address] [place] [address] 10/22/2024 10:00 AM EDT Office Visit Sleep Disorders Ctr Manny Browne, [place] [address] [place] [phone] Dorothy Toscano CRNP [address] [place] [address] 11/17/2024 9:30 AM EDT Office Visit Family Medicine [address] [place] [phone] Nancy Ryan[address] [place] [address] 11/24/2024 1:00 PM EDT Office Visit Cardiology [address] [place] [address] Prabhakar Henning PA-C [address] [place] [address] Scheduled Orders Name Type Priority Associated Diagnoses Orde r Schedule BASIC METABOLIC PANEL Lab Routine Chronic right-sided heart failure (HCC) Dyslipidemia, goal LDL below 70 HTN, goal below 130/80 Expected: 05/10/2024 (Approximate), Expires: 04/28/2025 Scheduled Procedures Name Priority Associated Diagnoses Date/Ti [...] Additional history exists CKD PHOS USE SMARTSET 12150 09/02/202408/13, 09/18/2022, 08/29/2021, Additional history exists Diabetic Eye Exam 10/23/2024 10/24/2023, , 10/09/2022, Additional history exists GFR 10/25/2024 04/27/2024, 01/11, 01/20/2024, Additional history exists Albumin/Creatinine Ratio 04/27/2025 024, 02/19/2023, 03/14/2022, Additional history exists CKD HGB USE SMARTSET 78861 04/27/202504/27, 04/27/2024, 04/14/2024, Additional history exists Colonoscopy [...] encounter Medical Devices Implanted Type Area Electric Distribution Checker Device Identifier Shelf Expiration Date Model / Serial / Lot Envista Hydrophobic Acrylic Intraocular Lens Implanted:Qty: 1 on 12/25/2016 by Raul Neely MD at OR [facility] Right: Eye [employer] 11/09/2018 [id number] / [id number] / [id number] Envista Mx60 +10.0 D Implanted:Qty: 1 on 01/29/2017 by Raul Neely MD at OR [facility] Left: Eye 11/09/2018 [id number] / [id number] / [id number] documented as of this encounter Visit Diagnoses Diagnosis Chronic right-sided heart failure (HCC)- Primary Congestive heart failure, unspecified Dyslipidemia, goal LDL below 70 Other and unspecified hyperlipidemia HTN, goal below 130/80 Unspecified essential hypertension documented in this encounter Advance Directives * [...] and were consensually agreed upon. Care Teams Automation Mechanic Relationship Specialty Start Date End Date Nancy Ryan DO [address] [place] [address] [place] [phone] PCP - General Internal Medicine 09/11/18 documented as of this encounter
--- OUTSIDE RECORDS SUMMARY | 2024-05-15 23:03 | External Medical Summary | Summary of Care ---
Author Name Unknown Organization [facility] Address [address] [place] [address] Phone [phone] Care Team Providers Care Forest And Conservation Worker Name Role Phone Nancy Ryan DO Primary Care Provider Reason for Visit * Reason Comments Outpatient Testing Encounter Details Date Type Department Care Team (Late st Contact Info) Description 04/27/2024 9:00 AM EDT Laboratory Laboratory [address] [place] [phone] [facility] [address] [place] [address] Anemia due to stage 3a chronic kidney disease (HCC); Dyslipidemia, goal LDL below 70; Encounter for monitoring diuretic therapy Allergies No known active allergiesdocumented as of this encounter (statuses as of 04/27/2024) Medications Medication Sig Dispensed Refills Start Date End Date Status Blood Glucose Monitoring Suppl (HandpayUCH ULTRA SYSTEM) W/DEVICE KITIndications:DM type 2, goal A1c below 7 Use as directed 4 times a day. Use up to four times a day as directed. Diagnosis = E11.9 1 Kit 0 06/29/2015 Active BD Pen Needle Wilda U/F 32G X 4 MM (Insulin Pen Needle)Indication s:Type 2 diabetes mellitus with diabetic neuropathy, with long-term current use of insulin ([facility]),Type 2 diabetes mellitus with hemoglobin A1c [...] long-term current use of insulin ([facility]) Use TWICE a day to test glucose Diagnosis = E11.9 200 Each 3 03/19/2023 Active Epoetin Gautam-epbx 27966 UNIT/ML Injection Solution (Retacrit) Inject 2 mL [...] in the morning. 30 Tablet 12/05/2023 Active [place]-3 Fish Oil 1000 MG Oral Capsule ([place]-3) Take 1 Capsule by mouth in the [...] long-term current use of insulin ([facility]) Inject 2 mg under the skin [...] as of this encounter (statuses as of 04/27/2024) Active Problems Problem Noted Date Diagnosed Date [...] Noted on CT scan at [facility] 05/2019 Mild nonproliferative diabet ic retinopathy [...] as of this encounter (statuses as of 04/27/2024) Resolved Problems Problem Noted Date Diagnosed Date [...] as of this encounter (statuses as of 04/27/2024) Immunizations Name Administration Dates Next Due COVID-19 mRNA, LNP-s, No Pre serve, 2-Dose Series (Pfizer) 06/20/2021,10/22/2020,09/26/2020 COVID-19, LNP-s, No Preserve , Jamie-sucrose, Ages 12+ (Pfizer) 03/13/2022 Covid-19, Mrna, Lnp-s, Pf, B ivalent, 30 Mcg, IM, 12 yrs and above (Pfizer) 09/20/2022 Pneumococcal Conjugate Vacci ne, 20-valent ([id number]) 03/14/2022 Pneumococcal Polysaccharide PPV23 (Pneumovax) 03/19/2006 Seasonal [...] Contact Info) Description 04/28/2024 10:30 AM EDT Immunization/Injec tion Hematology/Oncology Treatment, [place] [address] [place] [phone] [place], Chair [address] Hem [address] [place] [address] 04/30/2024 2:30 PM EDT Office Visit Nephrology, [facility] 200 [facility] [place] [address] Beckie Dunbar PA-C 200 [facility] [place] [address] 05/05/2024 10:30 AM EDT Imaging Radiology [address] [place] [address] 06/02/2024 10:30 AM EDT Office Visit Sleep Disorders Ctr [facility] 132 [place] [phone] Dorothy Toscano CRNP 132 [place] [address] 06/23/2024 9:15 AM EST Office Visit Hematology/Oncology [facility] [address] [place] [phone] Fly Velazquez MD [address] [place] [address] 09/18/2024 2:00 PM EST Office Visit Nephrology [address] [place] [address] Beckie Dunbar PA-C [address] [place] [address] 10/22/2024 10:00 AM EDT Office Visit Sleep Disorders Ctr [facility] [address] [place] [phone] Dorothy Toscano CRNP [address] [place] [address] 11/17/2024 9:30 AM EDT Office Visit Family Medicine [address] [place] [phone] [address] [place] [address] 11/24/2024 1:00 PM EDT Office Visit Cardiology [address] [place] [address] Prabhakar Henning PA-C [address] [place] [address] Pending Results Name Type Priority Associated Diagnoses Date /Time COMPREHENSIVE METABOLIC PANEL Lab STAT Anemia due to stage 3a chronic kidney disease (HCC) 04/27/2024 9:34 AM EDT FERRITIN Lab STAT Anemia due to stage 3a chronic kidney disease (HCC) 04/27/2024 9:34 AM EDT FOLIC ACID Lab STAT Anemia due to stage 3a chronic kidney disease (HCC) 04/27/2024 9:34 AM EDT VITAMIN B12 Lab STAT Anemia due to stage 3a chronic kidney disease (HCC) 04/27/2024 9:34 AM EDT IRON SCREEN, INCLUDING TIBC Lab STAT Anemia due to stage 3a chronic kidney disease (HCC) 04/27/2024 9:34 AM EDT CBC WITH WBC DIFFERENTIAL Lab STAT Anemia due to stage 3a chronic kidney disease (HCC) 04/27/2024 9:34 AM EDT LDL CHOLESTEROL (DIRECT MEASURE) Lab Routine Dyslipidemia, goal LDL below 70 04/27/2024 9:34 AM EDT CBC Lab STAT Anemia due to stage 3a chronic kidney disease (HCC) 04/27/2024 9:34 AM EDT DIFFERENTIAL, AUTOMATED Lab STAT Anemia due to stage 3a chronic kidney disease (HCC) 04/27/2024 9:34 AM EDT Scheduled Procedures Name Priority Associated Diagnoses Date/Ti me COLONOSCOPY FLEXIBLE PROXIMAL DIAGNOSTIC Recall History of colon polyps Health Maintenance Due Date Last Done Comments Cologuard 2002 Sigmoidoscopy 2002 Fecal Occult Blood Test 07/07/2011 07/07/20 10, 08/25/2003, 12/16/1998 Depression Screening 01/28/2021 01/29/2020 Adult Wellness Visit 2023 Diabetic Foot Exam 03/14/2023 03/14/2022, 0 11/30/2015, 11/09/2014, Additional history exists Albumin/Creatinine Ratio 02/20/2024 023, 03/14/2022, 05/19/2021, Additional history exists COVID-19 Vaccine ( season) 2024 06/28/2023, 09/20/2022, 03/13/2022, Additional history exists Influenza Vaccine (FLU shot) (#1) 2024 05/15/2023, 06/25/2022, 05/19/2021, Additional history exists HbA1c 06/24/2024 12/23/2023, 12/0 11/2022, 03/19/2023, Additional history exists GFR 08/04/2024 2024, 06, 12/23/2023, Additional history exists CKD PHOS USE SMARTSET 49356 09/02/202408/13, 09/18/2022, 08/29/2021, Additional history exists Diabetic Eye Exam 10/23/2024 10/24/2023, , 10/09/2022, Additional history exists CKD HGB USE SMARTSET 56016 04/14/202504/14, 04/14/2024, 03/30/2024, Additional history exists Colonoscopy 02/09/2027 02/09/2022, 08/14, 12/07/2008 Colorectal Cancer Screening 02/09/2027 Lipid Panel 02/11/2028 02/10/2023, 08/0 10/2021, 05/19/2021, Additional history exists DXA Scan 12/14/2028 12/14/2021 DTap/Tdap Vaccines (3 - Td or Tdap) [...] this encounter Medical Devices Implanted Type Area Outbound Sales Executive Device Identifier Shelf Expiration Date Model / Serial / Lot Envista Hydrophobic Acrylic Intraocular Lens Implanted:Qty: 1 on 12/25/2016 by Raul Neely MD at OR [facility] Right: Eye [employer] 11/09/2018 [id number] / [id number] / [id number] Envista Mx60 +10.0 D Implanted:Qty: 1 on 01/29/2017 by Raul Neely MD at OR [facility] Left: Eye 11/09/2018 [id number] / [id number] documented as of this encounter Visit Diagnoses Diagnosis Anemia due to stage 3a chronic kidney disease (HCC) Dyslipidemia, goal LDL below 70 Other and unspecified hyperlipidemia Encounter for monitoring diuretic therapy Encounter for therapeutic drug monitoring documented in this encounter Advance Directives * [...] and were consensually agreed upon. Care Teams Forest And Conservation Worker Relationship Specialty Start Date End Date Nancy Ryan DO [address] [place] [address] [place] [address] PCP - General Internal Medicine 09/11/18 documented as of this encounter
--- OUTSIDE RECORDS SUMMARY | 2024-05-15 23:04 | External Medical Summary | Summary of Care ---
Author Name Unknown Organization [facility] Address [address] [place] [address] Phone [phone] Care Team Providers Care Regulatory Compliance Manager Name Role Phone Nancy Ryan DO Primary Care Provider Reason for Visit * Reason Comments Outpatient Testing Encounter Details Date Type Department Care Team (Late st Contact Info) Description 04/14/2024 11:15 AM EDT Laboratory Laboratory [facility] [address] [place] [phone] [facility] 200 [facility] [place] [address] Anemia due to stage 3a chronic kidney disease (HCC) Allergies No known active allergiesdocumented as of this encounter (statuses as of 04/14/2024) Medications Medication Sig Dispensed Refills Start Date End Date Status Blood Glucose Monitoring Suppl (Wasatch MicrofluidicsUCH ULTRA SYSTEM) W/DEVICE KITIndications:DM type 2, goal [...] 200 Each 3 03/19/2023 Active Epoetin Gautam-epbx 54616 UNIT/ML Injection Solution (Retacrit) Inject 2 mL [...] Tablet before bedtime. 100 Tablet 12/05/2023 Active Insulin Glargine Solostar 100 UNIT/ML Subcutaneous [...] in the morning. 30 Tablet 12/05/2023 Active Royal[place]-3 Fish Oil 1000 MG Oral Capsule (Royalton-3) Take 1 Capsule by mouth in the [...] the morning. 90 Tablet 1 04/07/2024 Active Hospital, Clinic, or Other Facility Administered [...] as of this encounter (statuses as of 04/14/2024) Active Problems Problem Noted Date Diagnosed Date [...] Overview: Non-obstructive. Noted on CT scan at [facility] 05/2019 Mild nonproliferative diabet ic retinopathy of [...] as of this encounter (statuses as of 04/14/2024) Resolved Problems Problem Noted Date Diagnosed Date [...] as of this encounter (statuses as of 04/14/2024) Immunizations Name Administration Dates Next Due COVID-19 mRNA, LNP-s, No Pre serve, 2-Dose Series ([employer]) 06/20/2021,10/22/2020,09/26/2020 COVID-19, LNP-s, No Preserve , Jamie-sucrose, Ages 12+ (Pfizer) 03/13/2022 Covid-19, Mrna, Lnp-s, Pf, B ivalent, 30 Mcg, IM, 12 yrs and above (Pfizer) 09/20/2022 Pneumococcal Conjugate Vacci ne, 20-valent ([id number]) 03/14/2022 Pneumococcal Polysaccharide PPV23 (Pneumovax) 03/19/2006 Seasonal [...] Care Team (Late st Contact Info) Description 04/21/2024 2:00 PM EDT Office Visit Cardiology [address] [place] [address] Prabhakar Henning PA-C [address] [place] [address] 04/27/2024 9:00 AM EDT Laboratory Laboratory [address] [place] [phone] [facility] [address] [place] [address] 04/28/2024 10:30 AM EDT Immunization/Injectio n Hematology/Oncology Treatment, [place] [address] [place] [phone] Jordana, Chair [address] [place] [address] 04/30/2024 2:30 PM EDT Office Visit Nephrology, [place] [facility] [place] [address] Beckie Dunbar PA-C 200 [facility] [place] [address] 06/02/2024 10:30 AM EDT Office Visit Sleep Disorders Ctr Manny Browne [place] [phone] Dorothy Toscano CRNP [address] [place] [address] 06/23/2024 9:15 AM EST Office Visit Hematology/Oncology [facility] [address] [place] [phone] Fly Velazquez MD [address] [place] [address] 09/18/2024 2:00 PM EST Office Visit Nephrology [address] [place] [address] Beckie Dunbar PA-C [address] [place] [address] 10/22/2024 10:00 AM EDT [facility] [address] [place] [phone] Dorothy Toscano CRNP [address] [place] [address] 11/17/2024 9:30 AM EDT Office Visit Family Medicine [address] [place] [phone] [place] [address] Scheduled Procedures Name Priority Associated Diagnoses Date/Ti [...] 03/19/2023, Additional history exists GFR 08/04/2024 2024, 01/10, 12/23/2023, Additional history exists CKD PHOS USE SMARTSET 22459 09/02/202408/13, 09/18/2022, 08/29/2021, Additional history exists Diabetic Eye Exam 10/23/2024 10/24/2023, , 10/09/2022, Additional history exists CKD HGB USE SMARTSET 48330 04/14/202504/14, 04/14/2024, 03/30/2024, Additional history exists Colonoscopy [...] this encounter Medical Devices Implanted Type Area Oracle Architect Device Identifier Shelf Expiration Date Model / Serial / Lot Envista Hydrophobic Acrylic Intraocular Lens Implanted:Qty: 1 on 12/25/2016 by Raul Neely MD at OR [facility] Right: Eye [employer] 11/09/2018 [id number] / [id number] Envista Mx60 +10.0 D Implanted:Qty: 1 on 01/29/2017 by Raul Neely MD at OR [facility] Left: Eye 11/09/2018 [id number] / [id number] documented as of this encounter Procedures Procedure Name Priority Date/Time Associated Diagnosis Comments DIFFERENTIAL, AUTOMATED STAT 04/14/2024 11:14 AM EDT Anemia due to stage 3a chronic kidney disease (HCC) CBC STAT 04/14/2024 11:14 AM EDT Anemia due to stage 3a chronic kidney disease (HCC) CBC STAT 04/14/2024 11:14 AM EDT Anemia due to stage 3a chronic kidney disease (HCC) documented in this encounter Results * DIFFERENTIAL, AUTOMATED (04/14/2024 11:14 AM EDT) WBC 6.27 4.00 - 10.80 K/uL 04/14/2024 11:21 AM EDT [facility]-02 Neutrophils % 64.6 40.0 - 75.0 % 04/14/2024 11:21 AM EDT [facility] 56-02 Lymphocytes % 21.5 18.0 - 42.0 % 04/14/2024 11:21 AM EDT [facility] 56-02 Monocytes % 8.0 1.0 - 11.0 % 04/14/2024 11:21 AM EDT [facility] 56-02 Eosinophils % 5.1 0.0 - 6.0 % 04/14/2024 11:21 AM EDT [facility] 56 Basophils % 0.8 0.0 - 2.0 % 04/14/2024 11:21 AM EDT [facility] 56 Absolute Neutrophils 4.05 1.80 - 7.70 K/uL 04/14/2024 11:21 AM EDT [facility] 56 Absolute Lymphocytes 1.35 1.00 - 4.80 K/ul 04/14/2024 11:21 AM EDT [facility] 56 Absolute Monocytes 0.50 0.00 - 1.10 K/uL 04/14/2024 11:21 AM EDT [facility] 56- Absolute Eosinophils 0.32 0.00 - 0.70 K/uL 04/14/2024 11:21 AM EDT [facility] 56- Absolute Basophils 0.05 0.00 - 0.20 K/uL 04/14/2024 11:21 AM EDT [facility] 56 Blood Venous blood specimen / Unknown Venipuncture / Unknown 04/14/2024 11:14 AM EDT 04/14/2024 11:14 AM EDT Fly Velazquez MD LAB BLOOD ORDERABLES [facility] [address] [place] [phone] * (ABNORMAL) CBC (04/14/2024 11:14 AM EDT) WBC 6.27 4.00 - 10.80 K/uL 04/14/2024 11:21 AM EDT [facility] 56- RBC 3.44 4.50 - 5.25 M/uL 04/14/2024 11:21 AM EDT [facility] 56- HGB 10.3(L) 14.0 - 16.8 g/dL 04/14/2024 11:21 AM EDT [facility] 56 HCT 31.1(L) 40.0 - 48.4 % 04/14/2024 11:21 AM EDT [facility] 56 MCV 90.4 82.0 - 99.5 fL 04/14/2024 11:21 AM EDT [address] MCH 29.9 27.0 - 34.0 pg 04/14/2024 11:21 AM EDT [address] MCHC 33.1 32.0 - 36.0 g/dL 04/14/2024 11:21 AM EDT [address] RDW 17.2 11.5 - 15.5 % 04/14/2024 11:21 AM EDT [address] PLT 177 140 - 400 K/uL 04/14/2024 11:21 AM EDT [address] MPV 9.4 6.6 - 11.1 fL 04/14/2024 11:21 AM EDT [address] Blood Venous blood specimen / Unknown Venipuncture / Unknown 04/14/2024 11:14 AM EDT 04/14/2024 11:14 AM EDT Fly Velazquez MD LAB BLOOD ORDERABLES [place] [address] 200 [place] [address] documented in this encounter Visit Diagnoses Diagnosis [...] and were consensually agreed upon. Care Teams Regulatory Compliance Manager Relationship Specialty Start Date End Date Nancy Ryan DO [address] [place] [address] [place] [address] PCP - General Internal Medicine 09/11/18 documented as of this encounter
--- OUTSIDE RECORDS SUMMARY | 2024-05-15 23:04 | External Medical Summary | Summary of Care ---
Author Name Unknown Organization [facility] Address [address] [place] [address] Phone [phone] Care Team Providers Care Drum Loader And Unloader Name Role Phone Nancy Ryan DO Primary Care Provider Reason for Visit * Reason Comments Medication Administration Retacrit 40,00 0 units * Episode Based Medications (Routine) - Authorized Specialty Diagnoses / Procedures Referred By Contac t Referred To Contact Diagnoses Anemia due to stage 3a chronic kidney disease (HCC) Procedures [place] INJ RETACRIT NON-ESRD USE Tameka Pires CRNP [address] [place] [address] Anc Hem/Onc En Silveira DEPT CLOSED - 06/25/23 200 [facility] [place] [address] Referral ID Status Reason Start Date Expiration Date V isits Requested Visits Authorized [id number] Authorized 12/10/2023 06/04/2024 999 999 Encounter Details Date Type Department Care Team (Late st Contact Info) Description 04/14/2024 10:30 AM EDT Immunization/I njection Hematology/Oncology Treatment, [place] [address] [place] [address] Jordana, Chair 11 Hem Onc Scenery 200 [facility] [place] [address] Anemia due to stage 3a chronic kidney disease (HCC)* Allergies No known active allergiesdocumented as of this encounter (statuses as of 04/14/2024) Medications Medication Sig Dispensed Refills Start Date End Date Status Blood Glucose Monitoring Suppl (Xeebel ULTRA SYSTEM) W/DEVICE KITIndications:DM type 2, goal [...] DX e11.9 100 Each 3 10/17/2021 Active InvertirOnline.comTouch Verio In Vitro Strip (Glucose Blood) Use to test blood sugars twice a day. Dx. E11.9 300 Strip 1 03/13/2023 Active InvertirOnline.comTouch Delica Lancets 30GIndications:Ty pe 2 diabetes mellitus with diabetic neuropathy, with long-term current use of insulin ([facility]) Use TWICE a day to test glucose Diagnosis = E11.9 200 Each 3 03/19/2023 Active Epoetin Gautam-epbx 62862 UNIT/ML Injection Solution (Retacrit) Inject 2 mL [...] SECOND DROP AROUND 5 PM 10 mL 12/05/2023 Active Ferrous Sulfate 325 (65 Fe) MG Oral Tablet (Feosol) Take 1 Tablet by mouth in the morning and 1 Tablet before bedtime. 100 Tablet 12/05/2023 Active Insulin Glargine Solostar 100 UNIT/ML Subcutaneous Solution Pen-injector (Basaglar CesarPen) Inject 10 Units under the skin in the morning. 15 mL 12/05/2023 Active Additional Information Patient taking differently: 20 UnitsSubcutaneous Daily(AM), Reported on 03/27/2024 Melatonin 5 MG Oral Tablet Take 1 Tablet by mouth at bedtime. 30 Tablet 12/05/2023 Active Multiple Vitamin Oral Tablet Take 1 Tablet by mouth in the morning. 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 current use of ant icoagulant therapy 03/16/2005 [...] mRNA, LNP-s, No Pre serve, 2-Dose Series ([employer]) 06/20/2021,10/22/2020,09/26/2020 COVID-19, LNP-s, No Preserve , Jamie-sucrose, Ages 12+ (Pfizer) 03/13/2022 Covid-19, Mrna, Lnp-s, Pf, B ivalent, 30 Mcg, IM, 12 yrs and above (Pfizer) 09/20/2022 Pneumococcal Conjugate Vacci ne, 20-valent ([id number]) 03/14/2022 Pneumococcal Polysaccharide PPV23 (Pneumovax) 03/19/2006 Seasonal [...] Sign Reading Time Taken Comments Blood Pressure 144/84 04/14/2024 11:38 AM EDT Pulse 59 04/14/2024 11:38 AM EDT Temperature - - Respiratory Rate - - Oxygen Saturation 100% 04/14/2024 11:38 AM EDT Inhaled Oxygen Concentration - - Weight - - Height - - Body Mass Index - - documented in this encounter Nursing Notes * Elizabeth Griffith LPN - 04/14/2024 11:55 AM EDT Retacrit 40,000 units administered SQ into the left upper extremity. HGB 10.2 Patient tolerated injection and will return in 2 weeks. documented in this encounter Plan of Treatment Upcoming Encounters Date Type Department Care Team (Late st Contact Info) Description 04/21/2024 2:00 PM EDT Office Visit Cardiology [address] [place] [address] Prabhakar Henning PA-C [address] [place] [address] 04/27/2024 9:00 AM EDT Laboratory Laboratory [address] [place] [phone] [place] [address] 04/28/2024 10:30 AM EDT Immunization/Injectio n [facility]ematology/[facility]cology [facility], [place] [facility] [address] Jordana, Chair 11 Hem On[address] [place] [address] 04/30/2024 2:30 PM EDT Office Visit Nephrology, [address] [place] [address] Beckie Dunbar PA-C 200 [facility] [place] [address] 06/02/2024 10:30 AM EDT Office Visit Sleep Disorders Ctr Manny Browne, [place] [address] [place] [phone] Dorothy Toscano CRNP [address] [place] [address] 06/23/2024 9:15 AM EST Office Visit Hematology/Oncology [facility] [place] [address] [place] [phone] Fly Velazquez MD [address] [place] [address] 09/18/2024 2:00 PM EST Office Visit Nephrology [address] [place] [address] Beckie Dunbar PA-C [address] [place] [address] 10/22/2024 10:00 AM EDT Office Visit Sleep Disorders Ctr [facility] [address] [place] [phone] Dorothy Toscano CRNP [address] [place] [address] 11/17/2024 9:30 AM EDT Office Visit Family Medicine [address] [place] [phone] [address] [place] [address] Scheduled Procedures Name Priority Associated Diagnoses Date/Ti [...] Additional history exists CKD PHOS USE SMARTSET 62188 09/02/202408/13, 09/18/2022, 08/29/2021, Additional history exists Diabetic Eye Exam 10/23/2024 10/24/2023, , 10/09/2022, Additional history exists CKD HGB USE SMARTSET 92698 04/14/202504/14, 04/14/2024, 03/30/2024, Additional history exists Colonoscopy [...] this encounter Medical Devices Implanted Type Area Radiopharmacist Device Identifier Shelf Expiration Date Model / Serial / Lot Envista Hydrophobic Acrylic Intraocular Lens Implanted:Qty: 1 on 12/25/2016 by Raul Neely MD at OR [facility] Right: Eye [employer]OM[employer] 11/09/2018 [id number] / [id number] Envista Mx60 +10.0 D Implanted:Qty: 1 on 01/29/2017 by Raul Neely MD at [facility] Left: Eye 11/09/2018 [id number] / [id number] documented as of this encounter Visit Diagnoses Diagnosis Anemia due to stage 3a chronic kidney disease (HCC)- Primary documented in this encounter Administered Medications Inactive Administered Medications - up to 3 most recent administrations Medication Order MAR Action Action Date Dose Rate Site Epoetin Gautam-epbx (Retacrit) 52974 UNIT/ML inj 40,000 Units 40,000 Units, Subcutaneous, ONCE, On Sat04/14/24 at 1215, For 1 dose Given 04/14/2024 11:49 AM EDT 40,000 Units Arm Left Upper [...] and were consensually agreed upon. Care Teams Drum Loader And Unloader Relationship Specialty Start Date End Date Nancy Ryan DO [address] [place] [address] [place] [phone] PCP - General Internal Medicine 09/11/18 documented as of this encounter
--- OUTSIDE RECORDS SUMMARY | 2024-05-15 23:04 | External Medical Summary | Summary of Care ---
Author Name Unknown Organization [facility] Address [address] [place] [address] Phone [phone] Care Team Providers Care Slunk Skinner Name Role Phone Nancy Ryan DO Primary Care Provider Reason for Visit * Reason Onset Date Comments Home Monitoring Alarm 04/24/2024 Encounter Details Date Type Department Care Team (Late st Contact Info) Description 04/24/2024 Home Monitoring Care Coordination [address] [place], [place] [phone] Diane Hernandez LPN HTN, goal below 140/90* Allergies No known active allergiesdocumented as of this encounter (statuses as of 04/24/2024) Medications Medication Sig Dispensed Refills Start Date [...] Strip 1 03/13/2023 Active OneTouch Deloneal Lancets 30GIndications:Ty pe 2 diabetes mellitus with diabetic neuropathy, with long-term current use of insulin (HCC) Use TWICE a day to test glucose Diagnosis = E11.9 200 Each 3 03/19/2023 Active Epoetin Gautam-epbx 93725 UNIT/ML Injection Solution (Retacrit) Inject 2 mL [...] in the morning. 30 Tablet 12/05/2023 Active [place]-3 Fish Oil 1000 MG Oral Capsule ([place]-3) Take 1 Capsule by mouth in the [...] as of this encounter (statuses as of 04/24/2024) Active Problems Problem Noted Date Diagnosed Date [...] Overview: Non-obstructive. Noted on CT scan at [facility] 05/2019 Mild nonproliferative diabet ic [...] as of this encounter (statuses as of 04/24/2024) Resolved Problems Problem Noted Date Diagnosed Date [...] Taxonomy 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 of inactive term senior care current use of ant icoagulant therapy 03/16/2005 [...] as of this encounter (statuses as of 04/24/2024) Immunizations Name Administration Dates Next Due COVID-19 mRNA, LNP-s, No Pre serve, 2-Dose Series (Pfizer) 06/20/2021,10/22/2020,09/26/2020 COVID-19, LNP-s, No Preserve , Jamie-sucrose, Ages 12+ (Pfizer) 03/13/2022 Covid-19, Mrna, Lnp-s, Pf, B ivalent, 30 Mcg, IM, 12 yrs and above (Pfizer) 09/20/2022 Pneumococcal Conjugate Vacci ne, 20-valent ([id number]) 03/14/2022 Pneumococcal Polysaccharide PPV23 (Pneumovax) 03/19/2006 Seasonal [...] Progress Notes * Jena Haas RPh - 04/24/2024 11:18 AM EDT 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 Blood Pressure Goal: 140/90 mmHg Systolic Diastolic Pulse Systolic Diastolic 155 83 Average 139 77 142 81 138 78 High 83 83 137 70 Low 70 70 137 75 127 76 Range 13 13 Count 6 6 BP average remaining at goal. No changes at this time, will continue to monitor. Jena Haas RPh, PharmD Clinical Pharmacist - [facility] 04/24/2024, 11:18 AM [phone] * Diane Hernandez LPN - 04/24/2024 10:26 AM EDT Ronnie Wu [phone] Ronnie Wu is currently participating in the [facility] Hypertension Management Program and had areading on 04/24/24 of 155/83. Pt has alerted for an Average BP over 7 days >/= 140/90 . Parameters are currently set as follows: Average BP over 7 days >/= 140/90 Singular Systolic BP Reading </= 90 or >/=180 Singular Diastolic BP Reading </= 50 or >/=120 Patient is not reporting new symptoms or [...] Description 04/27/2024 9:00 AM EDT Laboratory Laboratory [address] [place] [phone] [facility] [address] [place] [address] 04/28/2024 10:30 AM EDT Immunization/Injectio n Hematology/Oncology Treatment, [place] [address] [facility] [place] [phone] Jordana, Chair 11 Hem On[address] [place] [address] 04/30/2024 2:30 PM EDT Office Visit Nephrology, [facility] 200 [facility] [place] [address] ZeBeckie cruz PA-C 200 [facility] [place] [address] 05/05/2024 10:30 AM EDT Imaging Radiology [address] [place] [address] 06/02/2024 10:30 AM EDT Office Visit [facility] [address] [place] [phone] Dorothy Toscano CRNP 132 [place] [address] 06/23/2024 9:15 AM EST Office Visit Hematology/Oncology [facility] [address] [place] [phone] Fly Velazquez MD [address] [place] [address] 09/18/2024 2:00 PM EST Office Visit Nephrology [address] [place] [address] Beckie Dunbar PA-C [address] [place] [address] 10/22/2024 10:00 AM EDT Office Visit Sleep Disorders Ctr [facility] [address] [place] [phone] Dorothy Toscano CRNP [address] [place] [address] 11/17/2024 9:30 AM EDT Office Visit Family Medicine [address] [place] [phone] Nancy Ryan[address] [place] [address] 11/24/2024 1:00 PM EDT Office Visit Cardiology [address] [place] [address] Prabhakar Henning PA-C [address] [place] [address] Scheduled Procedures Name Priority Associated Diagnoses Date/Ti [...] Additional history exists CKD PHOS USE SMARTSET 01782 09/02/202408/13, 09/18/2022, 08/29/2021, Additional history exists Diabetic Eye Exam 10/23/2024 10/24/2023, , 10/09/2022, Additional history exists CKD HGB USE SMARTSET 91544 04/14/202504/14, 04/14/2024, 03/30/2024, Additional history exists Colonoscopy [...] this encounter Medical Devices Implanted Type Area Corner Cutter Machine Operator Device Identifier Shelf Expiration Date Model / Serial / Lot Envista Hydrophobic Acrylic Intraocular Lens Implanted:Qty: 1 on 12/25/2016 by Raul Neely MD at OR [facility] Right: Eye [employer]OM[employer] 11/09/2018 [id number] / [id number] / [id number] Envista Mx60 +10.0 D Implanted:Qty: 1 on 01/29/2017 by Raul Neely MD at OR [facility] Left: Eye 11/09/2018 [id number] / [id number] / [id number] documented as of this encounter Visit Diagnoses [...] and were consensually agreed upon. Care Teams Slunk Skinner Relationship Specialty Start Date End Date Nancy Ryan DO [address] [place] [address] [place] [phone] PCP - General Internal Medicine 09/11/18 documented as of this encounter
--- OUTSIDE RECORDS SUMMARY | 2024-05-15 23:04 | External Medical Summary ---
Author Name Unknown Address Unknown Organization K01:LABORATORY [facility] [place] - [address] [facility] [address] Laboratory Report Ordering Provider Test Date Status ML MURCIA 04/27/2024 09:34:21 Final Observation Date Value Abnormality Reference (Units ) Status SYNC LEUKOCYTES IN BLOOD BY AUTOMATED COUNT 04/27/2024 09:34:21 5.81 4.00-10.80 (K/uL) Final Segs 04/27/2024 09:34:21 64.3 40.0-75.0 (%) Final Lymphs % 04/27/2024 09:34:21 21.2 18.0-42.0 (%) Final Monos 04/27/2024 09:34:21 9.1 1.0-11.0 (%) Final Eosinophils 04/27/2024 09:34:21 4.6 0.0-6.0 (%) Final Basos 04/27/2024 09:34:21 0.5 0.0-2.0 (%) Final Immature Granulocyte, Percent 04/27/2024 09:34:21 0.3 0.0-2.0 (%) Final Absolute Segs 04/27/2024 09:34:21 3.73 1.80-7.70 (K/uL) Final Lymphs, absolute 04/27/2024 09:34:21 1.23 1.00-4.80 (K/ul) Final Monos, Abs 04/27/2024 09:34:21 0.53 0.00-1.10 (K/uL) Final Eos, Abs 04/27/2024 09:34:21 0.27 0.00-0.70 (K/uL) Final Basos, Abs 04/27/2024 09:34:21 0.03 0.00-0.20 (K/uL) Final Immature Granulocytes, Number 04/27/2024 09:34:21 0.02 0.00-0.20 (K/uL) Final Performing Location LABORATORY [facility] - [facility] [place] [address]
--- OUTSIDE RECORDS SUMMARY | 2024-05-15 23:04 | External Medical Summary ---
Author Name Unknown Address Unknown Organization K01:[facility] [place] [address] [place] [address] Laboratory Report Ordering Provider Test Date Status LIZETH IVEY 04/27/2024 09:34:21 Final Observation Date Value Abnormality Reference (Units ) Status LDL, (direct) 04/27/2024 09:34:21 65 <=129 (mg/dL) Final LDL Cholesterol Reference Ra nges (mg/dL):
<70 Target level for high risk ASCVD patient
<100 Optimal for general population
100-129 Near optimal for general population
130-159 Borderline high
160-189 High
>=190 Very high Performing Location LABORATORY [facility] - [address] [place] [address]
--- OUTSIDE RECORDS SUMMARY | 2024-05-15 23:04 | External Medical Summary ---
Author Name Unknown Address Unknown Organization [id number]:[facility] [place] - [facility] [address] [facility] [address] [facility] [address] Laboratory Report Ordering Provider Test Date Status ML MURCIA 04/27/2024 09:34:21 Final Observation Date Value Abnormality Reference (Units ) Status WBC, Total 04/27/2024 09:34:21 5.81 4.00-10.80 (K/uL) Final RBC 04/27/2024 09:34:21 3.28 4.50-5.25 (M/uL) Final Hemoglobin 04/27/2024 09:34:21 10.1 Below low normal 14.0-16.8 (g/dL) Final HCT 04/27/2024 09:34:21 30.5 Below low normal 40.0-48.4 (%) Final MCV 04/27/2024 09:34:21 93.0 82.0-99.5 (fL) Final MCH 04/27/2024 09:34:21 30.8 27.0-34.0 (pg) Final MCHC 04/27/2024 09:34:21 33.1 32.0-36.0 (g/dL) Final RDW 04/27/2024 09:34:21 17.1 11.5-15.5 (%) Final Platelets 04/27/2024 09:34:21 151 140-400 (K/uL) Final MPV 04/27/2024 09:34:21 10.3 6.6-11.1 (fL) Final Nucleated erythrocytes/100 leukocytes [Ratio] in Blood by Automated count 04/27/2024 09:34:21 0 <=0 (/100 WBCs) Final Performing Location [facility]ORY [facility] [place] - [address] [place] [address]
--- OUTSIDE RECORDS SUMMARY | 2024-05-15 23:04 | External Medical Summary | Summary of Care ---
Author Name Unknown Organization [facility] Address [address] [place] [address] Phone [phone] Care Team Providers Care Deck Mechanic Name Role Phone Nancy Ryan DO Primary Care Provider [phone] Reason for Visit * Reason Comments Medication Administration Retacrit * Episode Based Medications (Routine) - Authorized Specialty Diagnoses / Procedures Referred By Contac t Referred To Contact Diagnoses Anemia due to stage 3a chronic kidney disease (HCC) Procedures [place] INJ RETACRIT NON-ESRD USE Tameka Pires CRNP [address] [facility] [place] [address] Anc Hem/Onc En [place] DEPT CLOSED - 06/25/23 [address] [place] [phone] Referral ID Status Reason Start Date Expiration Date V isits Requested Visits Authorized [id number] Authorized 12/10/2023 06/04/[phone] Encounter Details Date Type Department Care Team (Late st Contact Info) Description 03/31/2024 10:15 AM EDT Immunization/I njection Hematology/Oncology Treatment, [place] [address] [place] [phone] Jordana, Chair 7 Hem Onc [address] [place] [address] Anemia due to stage 3a chronic kidney disease (HCC)* Allergies No known active allergiesdocumented as of this encounter (statuses as of 04/16/2024) Medications Medication Sig Dispensed Refills Start Date End Date Status Blood Glucose Monitoring Suppl (Alaris Royalty ULTRA SYSTEM) W/DEVICE KITIndications:D M type 2, [...] DX e11.9 100 Each 3 2 Active Hybrid SecurityTouch Verio In Vitro Strip (Glucose Blood) Use to test blood sugars twice a day. Dx. E11.9 300 Strip 1 3 Active Hybrid SecurityTouch Delica Lancets 30GIndications:T ype 2 diabetes mellitus with diabetic neuropathy, with long-term current use of insulin ([facility]) Use TWICE a day to test glucose Diagnosis = E11.9 200 Each 3 3 Active Epoetin Gautam-epbx 31434 UNIT/ML Injection Solution (Retacrit) Inject 2 mL [...] Tablet before bedtime. 100 Tablet 4 Active Insulin Glargine Solostar 100 UNIT/ML Subcutaneous Solution Pen-injector (Basaglar KwikPen) Inject 10 Units under the skin in the morning. 15 mL 4 Active Additional Information Patient taking differently: 20 UnitsSubcutaneous Daily(AM), Reported on 03/27/2024 Melatonin 5 MG Oral Tablet Take 1 Tablet by mouth at bedtime. 30 Tablet 4 Active Multiple Vitamin Oral Tablet Take 1 Tablet by mouth in the morning. 30 Tablet 4 Active Balko-3 Fish Oil 1000 MG Oral Capsule (Balko-3) Take 1 Capsule by mouth in the [...] 1 tablet by mouth in the morning. 30 Tablet 4 03/31/20 24 Discontinu ed(Refill) Atorvastatin Calcium 20 MG Oral Tablet (Lipitor) Take 1 Tablet by mouth in the morning. 30 Tablet 4 04/07/20 24 Discontinu ed(Refill) Hospital, Clinic, or Other [...] as of this encounter (statuses as of 04/16/2024) Active Problems Problem Noted Date Diagnosed Date [...] as of this encounter (statuses as of 04/16/2024) Resolved Problems Problem Noted Date Diagnosed Date [...] Obesity Taxonomy 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 of inactive term jail current use of ant icoagulant therapy 03/16/2005 [...] as of this encounter (statuses as of 04/16/2024) Immunizations Name Administration Dates Next Due COVID-19 mRNA, LNP-s, No Pre serve, 2-Dose Series ([employer]) 06/20/2021,10/22/2020,09/26/2020 COVID-19, LNP-s, No Preserve , Jamie-sucrose, Ages 12+ (Pfizer) 03/13/2022 Covid-19, Mrna, Lnp-s, Pf, B ivalent, 30 Mcg, IM, 12 yrs and above (Pfizer) 09/20/2022 Pneumococcal Conjugate Vacci ne, 20-valent ([id number]) 03/14/2022 Pneumococcal Polysaccharide PPV23 (Pneumovax) 03/19/2006 Seasonal [...] Sign Reading Time Taken Comments Blood Pressure 148/73 03/31/2024 10:19 AM EDT Pulse - - Temperature - - Respiratory Rate - - Oxygen Saturation - - Inhaled Oxygen Concentration - - Weight - - Height - - Body Mass Index - - documented in this encounter Nursing Notes * Pat Trent LPN - 03/31/2024 10:33 AM EDT Pt arrived for Retacrit injection. Hgb 9.9. BP WNL. Administered in RAMILA. Pt tolerated well. To return in 2 weeks. Discharged in stable condition. documented in this encounter Plan of Treatment Upcoming Encounters Date Type Department Care Team (Late st Contact Info) Description 04/21/2024 2:00 PM EDT Office Visit Cardiology [address] [place] [address] Prabhaakr Henning PA-C [address] [place] [address] 04/27/2024 9:00 AM EDT Laboratory Laboratory [address] [place] [phone] [place] [address] 04/28/2024 10:30 AM EDT Immunization/Injectio n Hematology/Oncology Treatment, [place] 200 [facility] [place] [phone] Jordana, Chair [address] [place] [address] 04/30/2024 2:30 PM EDT Office Visit Nephrology, [address] [place] [address] Beckie Dunbar PA-C 200 [facility] [place] [address] 06/02/2024 10:30 AM EDT Office Visit Sleep Disorders Ctr Manny Browne [place] [address] [place] [phone] Dorothy Toscano CRNP [address] [place] [address] 06/23/2024 9:15 AM EST Office Visit Hematology/Oncology [facility] Jordana [place] [address] [place] [phone] Fly Velazquez MD [address] [place] [address] 09/18/2024 2:00 PM EST Office Visit Nephrology [address] [place] [address] Beckie Dunbar PA-C [address] [place] [address] 10/22/2024 10:00 AM EDT Office Visit Sleep Disorders Ctr Manny Browne [place] [address] [place] [phone] Dorothy Toscano CRNP [address] [place] [address] 11/17/2024 9:30 AM EDT Office Visit Family Medicine [address] [place] [phone] [address] [place] [address] Scheduled Procedures Name Priority Associated Diagnoses Date/Ti [...] Additional history exists CKD PHOS USE SMARTSET 88580 09/02/202408/13, 09/18/2022, 08/29/2021, Additional history exists Diabetic Eye Exam 10/23/2024 10/24/2023, , 10/09/2022, Additional history exists CKD HGB USE SMARTSET 27346 04/14/202504/14, 04/14/2024, 03/30/2024, Additional history exists Colonoscopy 02/09/2027 02/09/2022, 08/14, 12/07/2008 Colorectal Cancer Screening 02/09/2027 Lipid Panel 02/11/2028 02/10/2023, 0810/2021, 05/19/2021, Additional history exists DXA Scan 12/14/2028 [...] this encounter Medical Devices Implanted Type Area Product Manager Medical Device Device Identifier Shelf Expiration Date Model / Serial / Lot Envista Hydrophobic Acrylic Intraocular Lens Implanted:Qty: 1 on 12/25/2016 by Raul Neely MD at OR [facility] Right: Eye [employer]OM[employer] 11/09/2018 [id number] / [id number] Envista Mx60 +10.0 D Implanted:Qty: 1 on 01/29/2017 by Raul Neely MD at OR [facility] Left: Eye 11/09/2018 [id number] / [id number] documented as of this encounter Visit Diagnoses Diagnosis Anemia due to stage 3a chronic kidney disease (HCC)- Primary documented in this encounter Administered Medications Inactive Administered Medications - up to 3 most recent administrations Medication Order MAR Action Action Date Dose Rate Site Epoetin Gautam-epbx (Retacrit) 31717 UNIT/ML inj 40,000 Units 40,000 Units, Subcutaneous, ONCE, On Sat03/31/24 at 1100, For 1 dose Given 03/31/2024 10:22 AM EDT 40,000 Units Arm Right Upper documented in this encounter Additional Health Concerns Infection Onset Date Last Indicated Resolved Time C. difficile 03/10/2024 03/10/2024 04/09/2024 12:1 8 AM EDT documented as of this encounter Advance Directives [...] and were consensually agreed upon. Care Teams Deck Mechanic Relationship Specialty Start Date End Date Nancy Ryan DO [address] [place] [address] [place] [address] PCP - General Internal Medicine 09/11/18 documented as of this encounter
--- OUTSIDE RECORDS SUMMARY | 2024-05-15 23:04 | External Medical Summary ---
Author Name Unknown Address Unknown Organization K01:LAB[facility]ATORY [facility] [place] [address] [place] [address] Laboratory Report Ordering Provider Test Date Status [place] 04/27/2024 09:34:21 Final Observation Date Value Abnormality Reference (Units ) Status Vitamin B12 04/27/2024 09:34:21 [phone] (pg/mL) Final Performing Location LABORATORY C - [address] [place] [address]
--- OUTSIDE RECORDS SUMMARY | 2024-05-15 23:04 | External Medical Summary | Summary of Care ---
Author Name Unknown Organization [facility] Address [address] [place] [address] Phone [phone] Care Team Providers Care Master In Chancery Name Role Phone Nancy Ryan Primary Care Provider [phone] Reason for Visit * Reason Comments Follow Up 6 1/2 month follow u p. Edema in LE is better. Trying to elevate and this helps. When sleeping in the recliner doesn't put legs up. Denies chest pain, palpitations, SOB and dizziness. Encounter Details Date Type Department Care Team (Late st Contact Info) Description 04/21/2024 2:00 PM EDT Office Visit Cardiology [address] [place] [address] Prabhakar Henning PAJoseC [address] [place] [address] Chronic right-sided heart failure (HCC)*; HTN, goal below 130/80; Dyslipidemia, goal LDL below 70; Stage 3a chronic kidney disease (HCC); Encounter for monitoring diuretic therapy; Right carotid bruit Allergies No known active allergiesdocumented as of this encounter (statuses as of 04/23/2024) Medications Medication Sig Dispensed Refills Start Date [...] DX e11.9 100 Each 3 10/17/2021 Active HTPTouch Verio In Vitro Strip (Glucose Blood) Use to test blood sugars twice a day. Dx. E11.9 300 Strip 1 03/13/2023 Active HTPTouch Delica Lancets 30GIndications:Ty pe 2 diabetes mellitus with diabetic neuropathy, with long-term current use of insulin (HCC) Use TWICE a day to test glucose Diagnosis = E11.9 200 Each 3 03/19/2023 Active Epoetin Gautam-epbx 45090 UNIT/ML Injection Solution (Retacrit) Inject 2 mL [...] in the morning. 30 Tablet 12/05/2023 Active [place]-3 Fish Oil 1000 MG Oral Capsule ([place]-3) Take 1 Capsule by mouth in the [...] as of this encounter (statuses as of 04/23/2024) Active Problems Problem Noted Date Diagnosed Date [...] as of this encounter (statuses as of 04/23/2024) Resolved Problems Problem Noted Date Diagnosed Date [...] as of this encounter (statuses as of 04/23/2024) Immunizations Name Administration Dates Next Due COVID-19 mRNA, LNP-s, No Pre serve, 2-Dose Series (MindQuilt) 06/20/2021,10/22/2020,09/26/2020 COVID-19, LNP-s, No Preserve , Jamie-sucrose, Ages 12+ (Pfizer) 03/13/2022 Covid-19, Mrna, Lnp-s, Pf, B ivalent, 30 Mcg, IM, 12 yrs and above (Pfizer) 09/20/2022 Pneumococcal Conjugate Vacci ne, 20-valent ([id number]) 03/14/2022 Pneumococcal Polysaccharide PPV23 (Pneumovax) 03/19/2006 Seasonal [...] Sign Reading Time Taken Comments Blood Pressure 126/78 04/21/2024 2:07 PM EDT Pulse 64 04/21/2024 2:07 PM EDT Temperature - - Respiratory Rate 16 04/21/2024 2:07 PM EDT Oxygen Saturation - - Inhaled Oxygen Concentration - - Weight 133.8 kg (295 lb) 04/21/2024 2:07 PM EDT Height - - Body Mass Index 41.14 01/01/2024 9:50 AM EDT documented in this encounter Progress Notes * Prabhakar Henning PA-C - 04/21/2024 2:18 PM EDT History of Present Illness: Ronnie uW is a very pleasant 69-year-old male who returns todayfor routine cardiology follow-up. Accompanied by , patient's wound care provider, previously following with [facility] P[facility]. No fevers or rigors. Currently off of CPAP therapy, sleeping in a recliner down stairs which is closer to the bathroom due to diarrhea, C difficile. Feeling OK. Weight is down 18 pounds since last evaluation in September 2023. No reported chest pain, unusual shortness of breath, or tachypalpitations. Fluid has been acceptably controlled. No dizziness or syncope. No reported melena or hematochezia Problem List: Obstructive sleep apnea with Pickwickian [...] of B12 deficiency and iron deficiency. Anemia of chronic disease. Dyslipidemia Hypertension Mild bilateral internal carotid artery disease Gout Restless legs syndrome Mechanical fall in January 2023, down 12 steps, resultant traumatic subarachnoid hemorrhage, multiple spine fractures, rib and scapular fractures all managed conservatively. Hospitalized at [facility] in August 2023, presenting as transfer from [facility] withbilateral lower extremity cellulitis, history of diffuse calcinosis. Patient with a possible episode of coffee-ground emesis prior to hospitalization at [facility], chronically prescribed anticoagulation due to history of provoked DVT of the right lower extremity in the . Via shared decision-making, after discussion of risks and benefits, anticoagulation was discontinued at [facility]. Outpatient EGD revealed gastritis for which indefinite PPI therapy was advised. Hospitalization at [facility] in November 2023 with sepsis secondary to E coli bacteremia, possible pyelonephritis, bilateral lower extremity cellulitis Patient Active Problem List Diagnosis SPENCER (obstructive sleep apnea) Type 2 diabetes mellitus with diabetic neuropathy, with long-term current use of insulin ([facility]) Gout of wrist Venous insufficiency Vitamin B12 deficiency Dyslipidemia, goal LDL below 100 Venous stasis dermatitis of both lower extremities DM neuropathy, type II diabetes mellitus (HCC) History of DVT (deep vein thrombosis) Venous stasis ulcer of calf ([facility]) H/O amputation of lesser toe, unspecified laterality ([facility]) HTN, goal below 140/90 Iron deficiency anemia due to chronic blood loss 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 associated with type 2diabetes mellitus ([facility]) Hyperkalemia Renal calculi Non-pressure chronic ulcer of unspecified part of left lower leg with unspecified severity ([facility]) Varicose veins of right lower extremity with ulcer other part of lower leg (CODE) ([facility]) Non-pressure chronic ulcer of unspecified part of right lower leg with unspecified severity ([facility]) Acute gout due to renal impairment involving right wrist Primary osteoarthritis of right wrist Carpal tunnel syndrome of right wrist Chronic right-sided heart failure ([facility]) Other specified peripheral vascular diseases ([facility]) Chronic gout due to renal impairment, multiple sites, without tophus (tophi) Tubular adenoma History of adenomatous polyp of colon Non-pressure chronic ulcer of lower leg, limited to breakdown of skin ([facility]) Chronic venous hypertension (idiopathic) with ulcer of bilateral lower extremity (CODE) ([facility]) 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 ([facility]) Venous stasis ulcer of right calf limited to breakdown of skin ([facility]) Body mass index (BMI) of 40.0 to 44.9 in adult ([facility]) Full code status Chronic kidney disease, stage 3b ([facility]) Anemia due to stage 3b chronic kidney disease ([facility]) Past Medical History: Diagnosis Date Adult body mass index 50.0-59.9 ([facility]) 09/26/2010 Anemia 06/11/2001 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 management encounter 01/30/2002 Closed fracture of head of radius left wrist Closed fracture of phalanx of finger Fractured Finger #5 right digit DM neuropathy, type II diabetes mellitus ([facility]) 05/08/2016 DM type 2, goal A1c below 7 06/09/2009 DM type 2, not at goal ([facility]) DVT (deep venous thrombosis) ([facility]) 03/18/2012 Dyslipidemia, goal LDL below 100 05/28/2013 Edema 01/17/2010 Fall 01/22/2023 "not sure ho-13 fractures and brain bleed" Fracture of clavicle, closed right colar bone fractured Gout 04/18/2004 uric acid 7.9 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 03/16/2005 Lumbar degenerative disc disease 03/28/2016 Morbid Obesity, BMI not known Persistent insomnia 06/29/2014 Phlebitis and thrombophlebitis 06/11/2001 Phlebitis and thrombophlebitis of other deep vessels of lower extremities Restless legs syndrome 06/29/2014 Retinal tear 2006 left eye-treated at [facility] in [place] Sensory peripheral neuropathy 05/08/2016 SLEEP APNEA NOS 06/11/2001 Ulcer of lower limb (HCC) 01/17/2010 Venous insufficiency 04/23/2013 Venous stasis dermatitis 11/09/2014 Venous stasis dermatitis of both lower extremities 11/30/2015 Vitamin B12 deficiency 05/28/2013 Past Surgical History: Procedure Laterality Date 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 COLONOSCOPY, DIAGNOSTIC (RECTUM) 2008 Dr Hope - [facility] COLONOSCOPY, DIAGNOSTIC (RECTUM) 02/09/2022 benign adenomatous polyp, fair prep, repeat 5 yrs / [facility] EGD, FLEXIBLE, DIAGNOSTIC 09/11/2018 adenomatous & TVA polyps, repeat 3 yrs/[facility] EGD, FLEXIBLE, DIAGNOSTIC 06/30/2021 mild gastric irritation, hyperplastic gastric polyps / [facility] EGD, FLEXIBLE, DIAGNOSTIC N/A 09/26/2023 gastritis/non-obstructing non-bleeding duodenal ulcers/biposies show inflammatory changes/repeat 3 months/ESOPHAGOGASTRODUODENOSCOPY (EGD), FLEXIBLE, TRANSORAL, DIAGNOSTIC performed by Echo Jeong DO at OR [facility] EGD, FLEXIBLE, DIAGNOSTIC N/A 01/01/2024 ESOPHAGOGASTRODUODENOSCOPY (EGD), FLEXIBLE, TRANSORAL, DIAGNOSTIC performed by Jayda Jeong DOat OR [facility] FLUORESCEIN ANGIOGRAPHY MULTIFRAME Left 06/12/2022 FA, [...] 06-12-23) OTHER (INFORMATION) Bilateral AVASTIN CONSENT SIGNED 09/02/24, DR. DIAZ/KARUNA RELIEVE INNER EYE PRESSURE Right 12/25/2016 right GONIOTOMY performed by Raul Neely MD at [facility] RELIEVE INNER EYE PRESSURE Left 01/24/2017 left GONIOTOMY performed by Raul Neely MD at OR [facility] RELIEVE INNER EYE PRESSURE Left 01/29/2017 left GONIOTOMY performed by Raul Neely MD at [facility] REMOVE CATARACT, INSERT LENS PROSTH Right 12/25/2016 right EXTRACAPSULAR CATARACT REMOVAL WITH INTRAOCULAR LENS performed by Raul Neely MD at [facility] REMOVE CATARACT, INSERT LENS PROSTH Left 01/24/2017 left EXTRACAPSULAR CATARACT REMOVAL WITH INTRAOCULAR LENS performed by Raul Neely MD at [facility] REMOVE CATARACT, INSERT LENS PROSTH Left 01/29/2017 left EXTRACAPSULAR CATARACT REMOVAL WITH INTRAOCULAR LENS performed by Raul Neely MD at OR [facility] TREATMENT OF EXTENSIVE RETINOPATHY, PHOTOCOAGULATION Right 07/17/2023 Laser treatment OD, Dr. Emily ALANIS DUPLEX VENOUS LE BILAT 10/19/2009 no DVT, possible right inguinal lymph node 5x1x4 cm VEIN ABLATION EXTREMITY,ENDOVEN,1ST Left 04/2017 GSV Family History Problem Relation Name Age of Onset Heart Disorder Mother cabg Hypertension Mother Arthritis Father gout Heart Disorder Father d at 68 Diabetes Father Hypertension Father Arthritis Brother gout Arthritis Brother gout Diabetes Grandmother (Maternal) Eye Problems Grandmother (Maternal) Glaucoma Diabetes Grandmother (Paternal) Cancer Aunt (Unspecified) maternal aunt bone Eye Problems Aunt (Unspecified) maternal aunt Glaucoma Glaucoma Aunt (Unspecified) maternal aunt Eye Problems Uncle (Unspecified) maternal uncle had DM and had problems with his eyes Diabetes Uncle (Unspecified) maternal uncle Cataracts Grandfather (Maternal) Diabetes Grandfather (Maternal) Social History Socioeconomic History Marital status: Spouse name: Not on file Number of children: 0 Years of education: Not on file Highest education level: Not on file Occupational History 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 (Adult - for ages 18 years and over): Not on file Housing Stability: Not on file Complete Review of Systems is as stated above, negative, or noncontributory. Review of patient's allergies indicates: No Known Allergies Current Outpatient Medications Medication Sig Dispense Refill Blood Glucose Monitoring Suppl ([employer] ULTRA SYSTEM) W/DEVICE KIT Use as [...] = E11.9 200 Each 3 Epoetin Gautam-epbx 47756 UNIT/ML Injection Solution (Retacrit) Inject 2 mL intravenously once. Everytwo weeks Carvedilol 6.25 MG Oral Tablet (Coreg) TAKE 1 TABLET BY MOUTH TWICE A DAY WITH BREAKFAST AND [id number] Tablet 3 Dorzolamide HCl-Timolol Mal 2-0.5 % [...] skin in the morning.) 15 mL 0 Multiple Vitamin Oral Tablet Take 1 Tablet by mouth in the morning. 30 Tablet 0 [place]-3 Fish Oil 1000 MG Oral Capsule ([place]-3) Take 1 Capsule by mouth in the morning. 30 Capsule 0 Torsemide 20 MG Oral Tablet (Demadex) Take 1 Tablet by mouth in the morning. 90 Tablet 3 Vitamin B-12 1000 MCG Oral Tablet (Cyanocobalamin) Take 1 Tablet by mouth in the morning. 30 Tablet0 Vitamin C 500 MG Oral Tablet Chewable Take 2 Tablets by mouth in the morning. 100 Tablet 0 Magnesium Oxide -Mg Supplement 400 (240 Mg) [...] mouth in the morning. 90 Tablet 1 Melatonin 5 MG Oral Tablet Take 1 Tablet by mouth at bedtime. 30 Tablet 0 CPAP every night at bedtime. (Patient not taking: Reported on 04/21/2024) Vancomycin HCl 125 MG Oral Capsule (Vancocin) Take 1 Capsule by mouth every 6 hours for 14 days. For 7 days 56 Capsule 0 Current Facility-Administered Medications Medication Dose Route Frequency Provider Last Rate Last Admin bevaCIZumab (Avastin) inj 1.25 mg 1.25 mg Intravitreal PRN Mika Diaz, DO 1.25 mg at 06/13/23 1143 ROPivacaine (Naropin) inj 1.5 mg 1.5 mg Perineural PRN Mika Diaz, DO 1.5 mg at PHYSICAL EXAM: BP 126/78 | Pulse 64 | Resp 16 | Wt 133.8 kg (295 lb) | BMI 41.14 kg/m | BSA 2.59 m General: A&OX3. NAD. Elevated BMI. Neck: Right carotid bruit. HENT: Normocephalic. Atraumatic. Eyes: PER. No overt JVD. No carotid bruits. Lungs: Clear. Heart: Distant heart sounds. RRR at 80 bpm. No murmursappreciated. Abdomen: +BS. Soft. Nontender. Extremities: Dressings not removed. Chronic hard indurated edema, 1+ to the mid tavera. Stasis changes. No clubbing. No cyanosis. Data: [...] of 08/20/2016, there is no significant change. November 2023 ECHO at [facility] was technically limited, LVEF 55 to 60%. Mild mitral annular calcification observed. ASSESSMENT : Right heart failure Obstructive sleep apnea with Pickwickian syndrome. Chronic leg edema and past deep venous thrombosis, chronic stasis ulceration, prior bilateral lowerextremity cellulitis Hypertension Dyslipidemia. LDL 52 mg/day on 02/10/2023. Mild bilateral internal carotid artery disease. Iron deficiency anemia and anemia due to CKD, followed by [facility] Hematology and Nephrology. RECOMMENDATIONS/PLAN: Resume CPAP therapy. Continue medications as presently prescribed. Check CMP and LDL when in to see Nephrology. Refer for bilateral carotid duplex, RE: right carotid bruit Routine cardiology follow-up in 6 months or as needed. ER with emergencies. Prabhakar Henning PA-C Department of Cardiology I spent a total of 30-39 minutes (exact time 30 mins) on the date of service in preparation, delivery, and documentation of the care provided to Ronnie Wu excluding any time spent in the performance of separately billed services. This visit involved medical care services related to at leastone serious condition or complex condition requiring ongoing care. This chart was completed in partutilizing [employer] Speech Voice Recognition Software. Grammatical errors, random word insertions, prounoun errors, and incomplete sentences are an occasional consequence of this system due to software limitations, ambient noise, and hardware issues. Any formal questions or concerns about the content, text, or information contained within the body of this dictation should be directly addressed to the provider for clarification. documented in this encounter Nursing Notes * Markie Johnson LPN - 04/21/2024 2:06 PM EDT Patient identified by full name and date of Chief Complaint Patient presents with Follow Up 6 1/2 month follow up. Edema in LE is better. Trying to elevate and this helps. When sleeping in the recliner doesn't put legs up. Denies chest pain, palpitations, SOB and dizziness. Examination Room: 4 Name: Ronnie Wu Date of : (1955). Reason for Visit: Follow up Interim Hospitalization(s): [facility] ED 01/31/24 Problems/Concerns: See chief complaint Chest Pain/SOB: Denies [facility] Discussed: Not applicable [...] Description 04/27/2024 9:00 AM EDT Laboratory Laboratory [address] [place] [phone] [facility] [address] [place] [address] 04/28/2024 10:30 AM EDT Immunization/Injectio n Hematology/Oncology Treatment, [place] [address] [place] [phone] Jordana, Chair 11 Hem Onc [facility] [address] [facility] [place] [address] 04/30/2024 2:30 PM EDT Office Visit Nephrology, [facility] [address] [facility] [address] [place] [address] Beckie Dunbar PA-C [address] [facility] [address] [place] [address] 05/05/2024 10:30 AM EDT Imaging Radiology [address] [place] [address] 06/02/2024 10:30 AM EDT Office Visit [facility] Disorders [facility] [place] [address] [place] [phone] Dorothy Toscano CRNP [address] [facility] [place] [address] 06/23/2024 9:15 AM EST Office Visit Hematology/Oncology [facility] [address] [place] [phone] Fly Velazquez MD [address] [place] [address] 09/18/2024 2:00 PM EST Office Visit Nephrology [address] [place] [address] Beckie Dunbar PA-C [address] [place] [address] 10/22/2024 10:00 AM EDT Office Visit Sleep Disorders Ctr [facility] [address] [place] [phone] Dorothy Toscano CRNP [address] [place] [address] 11/17/2024 9:30 AM EDT Office Visit Family Medicine [address] [place] [phone] [place] [address] 11/24/2024 1:00 PM EDT Office Visit Cardiology [address] [place] [address] Prabhakar Henning PAJoseC [address] [place] [address] Scheduled Orders Name Type Priority Associated Diagnoses Orde r Schedule LDL CHOLESTEROL (DIRECT MEASURE) Lab Routine Dyslipidemia, goal LDL below 70 Expected: 04/21/2024, Expires: 04/21/2025 COMPREHENSIVE METABOLIC PANEL Lab Routine Dyslipidemia, goal LDL below 70 Encounter for monitoring diuretic therapy Expected: 04/21/2024, Expires: 04/21/2025 VASC DUPLEX CAROTID BILAT Medical Imaging Routine Right carotid bruit Expected: 05/05/2024, Expires: 05/21/2025 Scheduled Procedures Name Priority Associated Diagnoses Date/Ti [...] Additional history exists CKD PHOS USE SMARTSET 77780 09/02/202408/13, 09/18/2022, 08/29/2021, Additional history exists Diabetic Eye Exam 10/23/2024 10/24/2023, , 10/09/2022, Additional history exists CKD HGB USE SMARTSET 13290 04/14/202504/14, 04/14/2024, 03/30/2024, Additional history exists Colonoscopy [...] this encounter Medical Devices Implanted Type Area Chainstitch Seat Joiner Device Identifier Shelf Expiration Date Model / Serial / Lot Envista Hydrophobic Acrylic Intraocular Lens Implanted:Qty: 1 on 12/25/2016 by Raul Neely MD at OR [facility] Right: Eye [employer] 11/09/2018 [id number] / [id number] / [id number] Envista Mx60 +10.0 D Implanted:Qty: 1 on 01/29/2017 by Raul Neely MD at OR [facility] Left: Eye 11/09/2018 [id number] / [id number] / [id number] documented as of this encounter Visit Diagnoses Diagnosis Chronic right-sided heart failure (HCC)- Primary Congestive heart failure, unspecified HTN, goal below 130/80 Unspecified essential hypertension Dyslipidemia, goal LDL below 70 Other and unspecified hyperlipidemia Stage 3a chronic kidney disease (HCC) Encounter for monitoring diuretic therapy Encounter for therapeutic drug monitoring Right carotid bruit Other symptoms involving cardiovascular system documented in this encounter Advance Directives * [...] and were consensually agreed upon. Care Teams Master In Chancery Relationship Specialty Start Date End Date Nancy Ryan DO [address] [place] [address] [place] [id number] PCP - General Internal Medicine 09/11/18 documented as of this encounter
--- OUTSIDE RECORDS SUMMARY | 2024-05-15 23:04 | External Medical Summary ---
Author Name Unknown Address Unknown Organization K01:LABORATORY [facility] [place] - [address] [facility] [address] Laboratory Report Ordering Provider Test Date Status ML MURCIA 04/27/2024 09:34:21 Final Observation Date Value Abnormality Reference (Units ) Status BUN 04/27/2024 09:34:21 59 Above high normal 6-20 (mg/dL) Final Creatinine 04/27/2024 09:34:21 2.1 Above high normal 0.6-1.2 (mg/dL) Final Glomerular filtration rate/1.73 sq M.predicted [Volume Rate/Area] in Serum, Plasma or Blood by Creatinine-based formula (CKD-EPI) 04/27/2024 09:34:21 34 Below low normal >=60 (mL/min) Final eGFR is calculated based on the CKD-EPI 2020 equation. Sodium 04/27/2024 09:34:21 143 135-146 (m mol/L) Final Potassium 04/27/2024 09:34:21 5.2 Above high normal 3. 5-5.1 (mmol/L) Final Cl 04/27/2024 09:34:21 111 Above high normal 98 -107 (mmol/L) Final CO2 04/27/2024 09:34:21 21 Below low normal 22- 32 (mmol/L) Final Anion gap 04/27/2024 09:34:21 11 7-15 (mmol /L) Final Glucose 04/27/2024 09:34:21 125 Above high normal 70 -120 (mg/dL) Final Albumin 04/27/2024 09:34:21 3.7 Below low normal 3.8 -5.0 (g/dL) Final AST (Aspartate aminotransferase) 04/27/2024 09:34:21 23 10-50 (U/L) Fin al Alk Phos 04/27/2024 09:34:21 86 35-130 (U/ L) Final Bilirubin, Total 04/27/2024 09:34:21 0.6 <=1 .2 (mg/dL) Final Calcium 04/27/2024 09:34:21 8.8 8.4-10.2 ( mg/dL) Final Protein 04/27/2024 09:34:21 6.8 6.0-8.3 (g /dL) Final ALT (Alanine aminotransferase) 04/27/2024 09:34:21 20 10-50 (U/L) [place] white Performing Location LABORATORY [facility] [place] - [facility] [address] [facility] [address]
--- OUTSIDE RECORDS SUMMARY | 2024-05-15 23:04 | External Medical Summary ---
Author Name Unknown Address Unknown Organization K09:[facility]ATORY [place] [address] Laboratory Report Ordering Provider Test Date Status ML MURCIA 04/14/2024 11:14:30 Final Observation Date Value Abnormality Reference (Units ) Status WBC, Total 04/14/2024 11:14:30 6.27 4.00-10.8 0 (K/uL) Final RBC 04/14/2024 11:14:30 3.44 4.50-5.25 (M/uL) Final Hemoglobin 04/14/2024 11:14:30 10.3 Below low normal 14 .0-16.8 (g/dL) Final HCT 04/14/2024 11:14:30 31.1 Below low normal 40. 0-48.4 (%) Final MCV 04/14/2024 11:14:30 90.4 82.0-99.5 (fL) Final MCH 04/14/2024 11:14:30 29.9 27.0-34.0 (pg) Final MCHC 04/14/2024 11:14:30 33.1 32.0-36.0 (g/dL) Final RDW 04/14/2024 11:14:30 17.2 11.5-15.5 (%) Final Platelets 04/14/2024 11:14:30 177 140-400 (K /uL) Final MPV 04/14/2024 11:14:30 9.4 6.6-11.1 ( fL) Final Performing Location [facility] [place] [address]
--- OUTSIDE RECORDS SUMMARY | 2024-05-15 23:05 | External Medical Summary | Summary of Care ---
Author Name Unknown Organization [facility] Address [address] [place] [address] Phone [phone] Care Team Providers Care Distribution Agent Name Role Phone Marlon Ibrahim DO Primary Care Provider Reason for Visit * Reason Onset Date Comments Medication Refill 03/31/2024 Encounter Details Date Type Department Care Team (Late st Contact Info) Description 03/31/2024 Refill Family Medicine [address] [phone] Marlon Ibrahim DO [address] [place] [address] [place] [address] Allergies No known active allergiesdocumented as of this encounter (statuses as of 03/31/2024) Medications Medication Sig Dispensed Refills Start Date End Date Status Blood Glucose Monitoring Suppl (Rooster TeethUCH ULTRA SYSTEM) W/DEVICE KITIndications:D M type 2, [...] 200 Each 3 3 Active Epoetin Gautam-epbx 55634 UNIT/ML Injection Solution (Retacrit) Inject 2 mL intravenously once. Every two weeks Active Atorvastatin Calcium 20 MG Oral Tablet (Lipitor) Take 1 Tablet by mouth in the morning. 30 Tablet 4 Active Carvedilol 6.25 MG Oral Tablet [...] in the morning. 30 Tablet 4 Active [place]-3 Fish Oil 1000 MG Oral Capsule ([place]ople-3) Take 1 Capsule by mouth in the [...] with long-term current use of insulin ([facility]) Inject 2 mg under the skin once a week. DX E11.9 Diabetes Mellitus 3 mL 5 4 Active Rhopressa 0.02 % Ophthalmic Solution Instill 1 Drop into eye at bedtime. 2.5 mL 6 4 Active Allopurinol 100 MG Oral Tablet (Zyloprim) Take 1 Tablet by mouth in the morning. Take 1 tablet by mouth in the morning. 90 Tablet 3 4 Active Allopurinol 100 MG Oral Tablet (Zyloprim) Take 1 Tablet by mouth in the morning. Take 1 tablet by mouth in the morning. 30 Tablet 4 03/31/20 24 Discontinu ed(Refill) Hospital, Clinic, or Other [...] as of this encounter (statuses as of 03/31/2024) Active Problems Problem Noted Date Diagnosed Date [...] as of this encounter (statuses as of 03/31/2024) Resolved Problems Problem Noted Date Diagnosed Date [...] as of this encounter (statuses as of 03/31/2024) Immunizations Name Administration Dates Next Due COVID-19 mRNA, LNP-s, No Pre serve, 2-Dose Series (Pfizer) 06/20/2021,10/22/2020,09/26/2020 COVID-19, LNP-s, No Preserve , Jamie-sucrose, Ages 12+ (Pfizer) 03/13/2022 Covid-19, Mrna, Lnp-s, Pf, B ivalent, 30 Mcg, IM, 12 yrs and above (Pfizer) 09/20/2022 Pneumococcal Conjugate Vacci ne, 20-valent ([id number]) 03/14/2022 Pneumococcal Polysaccharide PPV23 (Pneumovax) 03/19/2006 Seasonal [...] Telephone Encounter - Marlon Ibrahim DO - 03/31/2024 2:14 PM EDTSigned Prescriptions: Disp Refills Allopurinol 100 MG Oral Tablet (Zyloprim) 90 Tab*3 Sig: Take 1 Tablet by mouth in the morning. Take 1 tablet by mouth in the morning.Authorizing Provider: MARLON IBRAHIM * Telephone Encounter - Britney Griffith LPN - 03/31/2024 1:59 PM EDTPending Prescriptions: Disp Refills Allopurinol 100 MG Oral Tablet (Zyloprim) 30 Tab*0 Sig: Take 1 Tablet by mouth in the morning. Take 1 tablet by mouth in the morning. * Telephone Encounter - Mercedes Bojorquez, SPENCER - 03/31/2024 11:56 AM EDT Did you pend patient's preferred pharmacy and medication before forwarding?yes Pharmacy: [id number] [id number] [facility] Pending Prescriptions: Disp Refills Allopurinol 100 MG Oral Tablet (Zyloprim) 30 Tab*0 Sig: Take 1 Tablet by mouth in the morning. Take 1 tablet by mouth in the morning. Last Visit: 03/27/2024 (in office), Visit date not found (telemedicine) Next Visit: 11/17/2024 If no future appointments scheduled, and last appointment is greater than a year ago, please schedule patient for a follow-up appointment Last date the medication was ordered: 12.05.23 Is this request for a controlled substance?No Urine Drug Screen:No results found. However, due to the size of the patient record, not all encounters were searched. Please check Results Review for a complete set of results. Patient Phone Numbers Labs: Lab Results Component Value Date/Time CREAT 1.8 (H) 2024 10:55 AM CREAT 1.76 (A) 08/23/2023 12:00 AM CREAT 1.3 (H) 09/05/2020 10:48 AM POTASSIUM 4.6 2024 10:55 AM POTASSIUM 4.4 08/23/2023 12:00 AM POTASSIUM 5.2 (H) 09/05/2020 10:48 AM TSH 3.28 03/19/2023 10:09 AM TSH 2.15 08/09/2020 01:46 PM LDLCALC UNINTERPRETABLE RESULT 08/13/2018 02:38 PM LDLDIRECT 52 02/10/2023 05:25 AM LDLDIRECT 63 08/09/2020 01:46 PM LDLDIRECT 113 (H) 06/10/2009 07:22 AM ALT 17 2024 10:55 AM ALT 27 08/09/2020 01:46 PM HGBA1C 5.6 12/23/2023 10:35 AM HGBA1C 7.5 (H) 08/02/2020 09:46 AM documented in this encounter Plan of Treatment Upcoming Encounters Date Type Department Care Team (Late st Contact Info) Description 04/14/2024 10:00 AM EDT Laboratory Laboratory [address] [place] [phone] [place], Lab [address] [place] [address] 04/14/2024 10:30 AM EDT Immunization/Injectio n Hematology/Oncology Treatment, [place] [address] [place] [phone] Jordana, Chair [address] [place] [address] 04/21/2024 2:00 PM EDT Office Visit Cardiology [address] [place] [address] Prabhakar Henning PA-C [address] [place] [address] 04/30/2024 2:30 PM EDT Office Visit Nephrology, [facility] [address] [place] [address] Beckie Dunbar PA-C [address] [place] [address] 06/02/2024 10:30 AM EDT Office Visit [facility] [address] [place] [phone] Dorothy Toscano CRNP [address] [place] [address] 06/23/2024 9:15 AM EST Office Visit Hematology/Oncology [facility] Jordana [place] [address] [place] [phone] Fly Velazquez MD [address] [place] [address] 09/18/2024 2:00 PM EST Office Visit Nephrology [address] [place] [address] Beckie Dunbar PA-C [address] [place] [address] 10/22/2024 10:00 AM EDT [facility] [address] [place] [phone] Dorothy Toscano CRNP [address] [place] [address] 11/17/2024 9:30 AM EDT Office Visit Family Medicine [address] [place] [phone] [place] [address] Scheduled Procedures Name Priority Associated Diagnoses Date/Ti me COLONOSCOPY FLEXIBLE PROXIMAL DIAGNOSTIC Recall History of colon polyps Health Maintenance Due Date Last Done Comments Cologuard 2002 Sigmoidoscopy 2002 Fecal Occult Blood Test 07/07/2011 07/07/20 10, 08/25/2003, 12/16/1998 Depression Screening 01/28/2021 01/29/2020 Adult Wellness Visit 2023 Diabetic Foot Exam 03/14/2023 03/14/2022, 0 11/30/2015, 11/09/2014, Additional history exists COVID-19 Vaccine ( season) 2023 06/28/2023, 09/20/2022, 03/13/2022, Additional history exists Albumin/Creatinine Ratio 02/20/2024 023, 03/14/2022, 05/19/2021, Additional history exists Influenza Vaccine (FLU shot) (#1) 2024 05/15/2023, 06/25/2022, 05/19/2021, Additional history exists HbA1c 06/24/2024 12/23/2023, 12/0 11/2022, 03/19/2023, Additional history exists GFR 08/04/2024 2024, 06/, 12/23/2023, Additional history exists CKD PHOS USE SMARTSET 68116 09/02/202408/13, 09/18/2022, 08/29/2021, Additional history exists Diabetic Eye Exam 10/23/2024 10/24/2023, , 10/09/2022, Additional history exists CKD HGB USE SMARTSET 67068 03/30/202503/30, 03/30/2024, 03/16/2024, Additional history exists Colonoscopy 02/09/2027 02/09/2022, 08/14, [...] this encounter Medical Devices Implanted Type Area Gauge Controller Device Identifier Shelf Expiration Date Model / Serial / Lot Envista Hydrophobic Acrylic Intraocular Lens Implanted:Qty: 1 on 12/25/2016 by Raul Neely MD at OR [facility] Right: Eye BAUSCH & LOMB 11/09/2018 [id number] / [id number] / [id number] Envista Mx60 +10.0 D Implanted:Qty: 1 on 01/29/2017 by Raul Neely MD at OR [facility] Left: Eye 11/09/2018 [id number] / [id number] documented as of this encounter Additional Health Concerns Infection Onset Date Last Indicated Resolved Time C. difficile 03/10/2024 03/10/2024 documented as of this encounter Advance Directives [...] and were consensually agreed upon. Care Teams Distribution Agent Relationship Specialty Start Date End Date Marlon Ibrahim DO [address] [place] [address] [place] [address] PCP - General Internal Medicine 09/11/18 documented as of this encounter
--- OUTSIDE RECORDS SUMMARY | 2024-05-15 23:05 | External Medical Summary | Summary of Care ---
Author Name Unknown Organization [facility] Address [address] [place] [address] Phone [phone] Care Team Providers Care Store Director Name Role Phone Nancy Ryan DO Primary Care Provider Reason for Visit * Reason Comments Medication Administration Retacrit * Episode Based Medications (Routine) - Authorized Specialty Diagnoses / Procedures Referred By Contac t Referred To Contact Diagnoses Anemia due to stage 3a chronic kidney disease (HCC) Procedures SC INJ RETACRIT NON-ESRD USE Tameka Pires CRNP [address] [facility] [place] [address] Anc Hem/Onc En [place] DEPT CLOSED - 06/25/23 [address] [place] [phone] Referral ID Status Reason Start Date Expiration Date V isits Requested Visits Authorized [id number] Authorized 12/10/2023 06/04/[phone] Encounter Details Date Type Department Care Team (Late st Contact Info) Description 03/31/2024 10:15 AM EDT Immunization/I njection Hematology/Oncology Treatment, [place] [address] [place] [phone] Jordana, Chair 7 Hem Onc [address] [place] [address] Anemia due to stage 3a chronic kidney disease (HCC)* Allergies No known active allergiesdocumented as of this encounter (statuses as of 03/31/2024) Medications Medication Sig Dispensed Refills Start Date End Date Status Blood Glucose Monitoring Suppl (Flazio ULTRA SYSTEM) W/DEVICE KITIndications:DM type 2, goal [...] DX e11.9 100 Each 3 10/17/2021 Active Net OrangeTouch Verio In Vitro Strip (Glucose Blood) Use to test blood sugars twice a day. Dx. E11.9 300 Strip 1 03/13/2023 Active Net OrangeTouch Delica Lancets 30GIndications:Ty pe 2 diabetes mellitus with diabetic neuropathy, with long-term current use of insulin ([facility]) Use TWICE a day to test glucose Diagnosis = E11.9 200 Each 3 03/19/2023 Active Epoetin Gautam-epbx 75999 UNIT/ML Injection Solution (Retacrit) Inject 2 mL intravenously once. Every two weeks Active Allopurinol 100 MG Oral Tablet (Zyloprim) Take 1 Tablet by mouth in the morning. Take 1 tablet by mouth in the morning. 30 Tablet 12/05/2023 Active Atorvastatin Calcium 20 MG Oral Tablet (Lipitor) Take 1 Tablet by mouth in the morning. 30 Tablet 12/05/2023 Active Carvedilol 6.25 MG Oral Tablet (Coreg) [...] in the morning. 30 Tablet 12/05/2023 Active [place]-3 Fish Oil 1000 MG Oral Capsule ([place]-3) Take 1 Capsule by mouth in the [...] at bedtime. 2.5 mL 6 03/27/2024 Active Hospital, Clinic, or Other Facility Administered [...] mRNA, LNP-s, No Pre serve, 2-Dose Series (WeGoOut) 06/20/2021,10/22/2020,09/26/2020 COVID-19, LNP-s, No Preserve , Jamie-sucrose, Ages 12+ (Pfizer) 03/13/2022 Covid-19, Mrna, Lnp-s, Pf, B ivalent, 30 Mcg, IM, 12 yrs and above (Pfizer) 09/20/2022 Pneumococcal Conjugate Vacci ne, 20-valent ([id number]) 03/14/2022 Pneumococcal Polysaccharide PPV23 (Pneumovax) 03/19/2006 Seasonal [...] Description 04/14/2024 10:00 AM EDT Laboratory Laboratory [address] [place] [phone] [place], Lab [address] [place] [address] 04/14/2024 10:30 AM EDT Immunization/Injectio n Hematology/Oncology Treatment, [place] [address] [place] [phone] Jordana, Chair 7 Hem On[address] [place] [address] 04/21/2024 2:00 PM EDT Office Visit Cardiology [address] [place] [address] Prabhakar Henning PA-C [address] [place] [address] 04/30/2024 2:30 PM EDT Office Visit Nephrology, [facility] [address] [facility] [place] [address] Beckie Dunbar PA-C [address] [facility] [place] [address] 06/02/2024 10:30 AM EDT Office Visit Sleep Disorders Ctr [facility] [place] [address] [place] [phone] Dorothy Toscano CRNP [address] [place] [address] 06/23/2024 9:15 AM EST Office Visit Hematology/Oncology [facility] [place] [address] [facility] [place] [phone] Fly Velazquez MD [address] [facility] [place] [address] 09/18/2024 2:00 PM EST Office Visit Nephrology [address] [place] [address] ZeBeckie cruz PA-C [address] [place] [address] 10/22/2024 10:00 AM EDT Office Visit Sleep Disorders Ctr Manny Browne [place] [address] [place] [phone] Dorothy Toscano CRNP [address] [place] [address] 11/17/2024 9:30 AM EDT Office Visit Family Medicine [address] [place] [phone] Nancy Ryan[address] [place] [address] Scheduled Procedures Name Priority Associated Diagnoses Date/Ti [...] Additional history exists CKD PHOS USE SMARTSET 67766 09/02/202408/13, 09/18/2022, 08/29/2021, Additional history exists Diabetic Eye Exam 10/23/2024 10/24/2023, , 10/09/2022, Additional history exists CKD HGB USE SMARTSET 66823 03/30/202503/30, 03/30/2024, 03/16/2024, Additional history exists Colonoscopy [...] this encounter Medical Devices Implanted Type Area Race Car Driver Device Identifier Shelf Expiration Date Model / Serial / Lot Envista Hydrophobic Acrylic Intraocular Lens Implanted:Qty: 1 on 12/25/2016 by Raul Neely MD at OR [facility] Right: Eye BAUSCH & LOMB 11/09/2018 [id number] / [id number] / [id number] Envista Mx60 +10.0 D Implanted:Qty: 1 on 01/29/2017 by Raul Neely MD at [facility] Left: Eye 11/09/2018 [id number] / [id number] / [id number] documented as of this encounter Visit Diagnoses Diagnosis Anemia due to stage 3a chronic kidney disease (HCC)- Primary documented in this encounter Administered Medications Inactive Administered Medications - up to 3 most recent administrations Medication Order MAR Action Action Date Dose Rate Site Epoetin Gautam-epbx (Retacrit) 77996 UNIT/ML inj 40,000 Units 40,000 Units, Subcutaneous, [...] and were consensually agreed upon. Care Teams Store Director Relationship Specialty Start Date End Date Ryan, Nancy Muro, DO [address] [place] [address] [place] [phone] PCP - General Internal Medicine 09/11/18 documented as of this encounter
--- OUTSIDE RECORDS SUMMARY | 2024-05-15 23:05 | External Medical Summary | Summary of Care ---
Author Name Unknown Organization [facility] Address [address] [place] [address] Phone [phone] Care Team Providers Care Shingles Roofer Name Role Phone Nancy Ryan DO Primary Care Provider Reason for Visit * Reason Onset Date Comments Home Health 03/31/2024 Encounter Details Date Type Department Care Team (Late st Contact Info) Description 03/31/2024 Telephone Family Medicine [address] [phone] Nancy Ryan DO [address] [place] [address] [place] [address] Home Health Allergies No known active allergiesdocumented as of this encounter (statuses as of 03/31/2024) Medications Medication Sig Dispensed Refills Start Date End Date Status Blood Glucose Monitoring Suppl (Sports Shop TVUCH ULTRA SYSTEM) W/DEVICE KITIndications:DM type 2, goal [...] 200 Each 3 03/19/2023 Active Epoetin Gautam-epbx 33977 UNIT/ML Injection Solution (Retacrit) Inject 2 mL [...] in the morning. 30 Tablet 12/05/2023 Active [place]-3 Fish Oil 1000 MG Oral Capsule ([place]-3) Take 1 Capsule by mouth in the [...] the morning. 90 Tablet 3 03/31/2024 Active Hospital, Clinic, or Other Facility Administered [...] CT scan at [facility] 05/2019 Mild nonproliferative diabet ic retinopathy of [...] mRNA, LNP-s, No Pre serve, 2-Dose Series (Bioniz) 06/20/2021,10/22/2020,09/26/2020 COVID-19, LNP-s, No Preserve , Jamie-sucrose, Ages 12+ (Pfizer) 03/13/2022 Covid-19, Mrna, Lnp-s, Pf, B ivalent, 30 Mcg, IM, 12 yrs and above (Pfizer) 09/20/2022 Pneumococcal Conjugate Vacci ne, 20-valent ([id number]) 03/14/2022 Pneumococcal Polysaccharide PPV23 (Pneumovax) 03/19/2006 Seasonal [...] encounter Miscellaneous Notes * Telephone Encounter - Pat Randolph LPN - 03/31/2024 2:44 PM EDT 8 weeks half-way Weekly wound assessment. Home Health Continuation/Re-certification of Care Order Request: Pam VARMA, Calling from: [facility]. Today is the last day of allotted HH visits. Continuation/Re-certification of: Care Home Re Cert period: 8 weeks Reason for re-cert: Weekly Wound Assessment Last office visit: 03/27/2024 (in office), Visit date not found (telemedicine) Next office visit: 11/17/2024 Advised that additional orders will be signed by Nancy Ryan DO and to fax to the office for signature. Pam noted a decrease in weight 306lb to 299lbs T 97.2 P 60 RR 17 BP SPO2 98% RA BS 116 Weight 299LB Went in to get Retacrit injection today--299 at nurse visit. He kept telling her that he was 306lb but she does not think that he was weighing himself daily. documented in this encounter Plan of Treatment Upcoming Encounters Date Type Department Care Team (Late st Contact Info) Description 04/14/2024 10:00 AM EDT Laboratory Laboratory [address] [place] [phone] [address] [place] [address] 04/14/2024 10:30 AM EDT Immunization/Injectio n Hematology/Oncology Treatment, [place] [address] [place] [phone] Jordana, Chair 7 Hem Onc [facility] [address] [facility] [place] [address] 04/21/2024 2:00 PM EDT Office Visit Cardiology [address] [place] [address] Prabhakar Henning PA-C [address] [place] [address] 04/30/2024 2:30 PM EDT Office Visit Nephrology, [facility] [address] [place] [address] Beckie Dunbar PA-C [address] [facility] [place] [address] 06/02/2024 10:30 AM EDT Office Visit Sleep Disorders Ctr Manny Browne [place] [address] [place] [phone] Dorothy Toscano CRNP [address] [place] [address] 06/23/2024 9:15 AM EST Office Visit Hematology/Oncology [facility] [place] [address] [place] [phone] Fly Velazquez MD [address] [facility] [place] [address] 09/18/2024 2:00 PM EST Office Visit Nephrology [address] [place] [address] Beckie Dunbar PA-C [address] [facility] [place] [address] 10/22/2024 10:00 AM EDT Office Visit Sleep Disorders Ctr [facility] [address] [place] [phone] Dorothy Toscano CRNP [address] [place] [address] 11/17/2024 9:30 AM EDT Office Visit Family Medicine [address] [place] [phone] Nancy Ryan[address] [place] [address] Scheduled Procedures Name Priority Associated Diagnoses Date/Ti [...] Additional history exists CKD PHOS USE SMARTSET 04700 09/02/202408/13, 09/18/2022, 08/29/2021, Additional history exists Diabetic Eye Exam 10/23/2024 10/24/2023, , 10/09/2022, Additional history exists CKD HGB USE SMARTSET 86645 03/30/202503/30, 03/30/2024, 03/16/2024, Additional history exists Colonoscopy [...] this encounter Medical Devices Implanted Type Area Special Warfare Combatant Crewman Device Identifier Shelf Expiration Date Model / Serial / Lot Envista Hydrophobic Acrylic Intraocular Lens Implanted:Qty: 1 on 12/25/2016 by Raul Neely MD at OR [facility] Right: Eye BAUSCH & LOMB 11/09/2018 [id number] / [id number] / [id number] Envista Mx60 +10.0 D Implanted:Qty: 1 on 01/29/2017 by Raul Neely MD at OR [facility] Left: Eye 11/09/2018 [id number] / [id number] / [id number] documented as of this encounter Additional Health [...] and were consensually agreed upon. Care Teams Shingles Roofer Relationship Specialty Start Date End Date Nancy Ryan DO [address] [place] [address] [place] [address] PCP - General Internal Medicine 09/11/18 documented as of this encounter
--- OUTSIDE RECORDS SUMMARY | 2024-05-15 23:05 | External Medical Summary ---
Author Name Unknown Address Unknown Organization K09:[facility] [place] [address] Laboratory Report Ordering Provider Test Date Status ML MURCIA 04/14/2024 11:14:30 Final Observation Date Value Abnormality Reference (Units ) Status SYNC LEUKOCYTES IN BLOOD BY AUTOMATED COUNT 04/14/2024 11:14:30 6.27 4.00-10.80 (K/uL) Final Segs 04/14/2024 11:14:30 64.6 40.0-75.0 (%) Final Lymphs % 04/14/2024 11:14:30 21.5 18.0-42.0 (%) Final Monos 04/14/2024 11:14:30 8.0 1.0-11.0 (%) Final Eosinophils 04/14/2024 11:14:30 5.1 0.0-6.0 (%) Final Basos 04/14/2024 11:14:30 0.8 0.0-2.0 (%) Final Absolute Segs 04/14/2024 11:14:30 4.05 1.80-7.70 (K/uL) Final Lymphs, absolute 04/14/2024 11:14:30 1.35 1.00-4.80 (K/ul) Final Monos, Abs 04/14/2024 11:14:30 0.50 0.00-1.10 (K/uL) Final Eos, Abs 04/14/2024 11:14:30 0.32 0.00-0.70 (K/uL) Final Basos, Abs 04/14/2024 11:14:30 0.05 0.00-0.20 (K/uL) Final Performing Location [facility] [place] [address]
--- OUTSIDE RECORDS SUMMARY | 2024-05-15 23:05 | External Medical Summary ---
Author Name Unknown Address Unknown Organization K01:[facility] [place] - [address] [facility] [id number] Laboratory Report Ordering Provider Test Date Status LM MURCIA 03/30/2024 09:21:40 Final Observation Date Value Abnormality Reference (Units ) Status SYNC LEUKOCYTES IN BLOOD BY AUTOMATED COUNT 03/30/2024 09:21:40 4.78 4.00-10.80 (K/uL) Final Segs 03/30/2024 09:21:40 59.6 40.0-75.0 (%) Final Lymphs % 03/30/2024 09:21:40 26.8 18.0-42.0 (%) Final Monos 03/30/2024 09:21:40 8.4 1.0-11.0 (%) Final Eosinophils 03/30/2024 09:21:40 4.6 0.0-6.0 (%) Final Basos 03/30/2024 09:21:40 0.4 0.0-2.0 (%) Final Immature Granulocyte, Percent 03/30/2024 09:21:40 0.2 0.0-2.0 (%) Final Absolute Segs 03/30/2024 09:21:40 2.85 1.80-7.70 (K/uL) Final Lymphs, absolute 03/30/2024 09:21:40 1.28 1.00-4.80 (K/ul) Final Monos, Abs 03/30/2024 09:21:40 0.40 0.00-1.10 (K/uL) Final Eos, Abs 03/30/2024 09:21:40 0.22 0.00-0.70 (K/uL) Final Basos, Abs 03/30/2024 09:21:40 0.02 0.00-0.20 (K/uL) Final Immature Granulocytes, Number 03/30/2024 09:21:40 0.01 0.00-0.20 (K/uL) Final Performing Location [facility] [place] - [address] [facility] [address]
--- OUTSIDE RECORDS SUMMARY | 2024-05-15 23:05 | External Medical Summary | Summary of Care ---
Author Name Unknown Organization [facility] Address [address] [place] [address] Phone [phone] Care Team Providers Care Angiographer Name Role Phone Nancy Ryan DO Primary Care Provider Reason for Visit * Reason Comments Outpatient Testing Encounter Details Date Type Department Care Team (Late st Contact Info) Description 03/30/2024 9:00 AM EDT Laboratory Laboratory [address] [place] [phone] [facility] [address] [place] [address] Anemia due to stage 3a chronic kidney disease (HCC) Allergies No known active allergiesdocumented as of this encounter (statuses as of 03/30/2024) Medications Medication Sig Dispensed Refills Start Date End Date Status Blood Glucose Monitoring Suppl (iMall.euUCH ULTRA SYSTEM) W/DEVICE KITIndications:DM type 2, goal [...] 200 Each 3 03/19/2023 Active Epoetin Gautam-epbx 33257 UNIT/ML Injection Solution (Retacrit) Inject 2 mL [...] in the morning. 30 Tablet 12/05/2023 Active [place]-3 Fish Oil 1000 MG Oral Capsule ([place]-3) Take 1 Capsule by mouth in the [...] as of this encounter (statuses as of 03/30/2024) Active Problems Problem Noted Date Diagnosed Date [...] as of this encounter (statuses as of 03/30/2024) Resolved Problems Problem Noted Date Diagnosed Date [...] Obesity Taxonomy 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 of inactive term alf current use of ant icoagulant therapy 03/16/2005 [...] as of this encounter (statuses as of 03/30/2024) Immunizations Name Administration Dates Next Due COVID-19 mRNA, LNP-s, No Pre serve, 2-Dose Series (SolarWinds) 06/20/2021,10/22/2020,09/26/2020 COVID-19, LNP-s, No Preserve , Jamie-sucrose, Ages 12+ (Pfizer) 03/13/2022 Covid-19, Mrna, Lnp-s, Pf, B ivalent, 30 Mcg, IM, 12 yrs and above (Pfizer) 09/20/2022 Pneumococcal Conjugate Vacci ne, 20-valent (Dutgyfo10) 03/14/2022 Pneumococcal Polysaccharide PPV23 (Pneumovax) 03/19/2006 Seasonal [...] Contact Info) Description 03/31/2024 10:15 AM EDT Immunization/Injec tion Hematology/Oncology Treatment, [place] [address] [facility] [place] [phone] Jordana, Chair 7 Hem Onc [place] [address] [place] [address] 04/21/2024 2:00 PM EDT Office Visit Cardiology [address] [place] [address] Prabhakar Henning PA-C [address] [place] [address] 04/30/2024 2:30 PM EDT Office Visit Nephrology, [place] [address] [address] [place] [address] Beckie Dunbar PA-C [address] [place] [address] [place] [address] 06/02/2024 10:30 AM EDT Office Visit [facility] Anthony [address] [place] [phone] Dorothy Toscano CRNP [address] [place] [address] 06/23/2024 9:15 AM EST Office Visit Hematology/Oncology [facility] Jordana [place] [address] [place] [phone] Fly Velazquez MD [address] [place] [address] 09/18/2024 2:00 PM EST Office Visit Nephrology [address] [place] [address] Beckie Dunbar PA-C [address] [place] [address] 10/22/2024 10:00 AM EDT Office Visit Sleep Disorders Ctr [place] [address] [place] [phone] Dorothy Toscano CRNP [address] [place] [address] 11/17/2024 9:30 AM EDT Office Visit Family Medicine [address] [place] [phone] [place] [address] Pending Results Name Type Priority Associated Diagnoses Date /Time CBC WITH WBC DIFFERENTIAL Lab STAT Anemia due to stage 3a chronic kidney disease (HCC) 03/30/2024 9:21 AM EDT CBC Lab STAT Anemia due to stage 3a chronic kidney disease (HCC) 03/30/2024 9:21 AM EDT DIFFERENTIAL, AUTOMATED Lab STAT Anemia due to stage 3a chronic kidney disease (HCC) 03/30/2024 9:21 AM EDT Scheduled Procedures Name Priority Associated [...] Additional history exists CKD PHOS USE SMARTSET 39652 09/02/202408/13, 09/18/2022, 08/29/2021, Additional history exists Diabetic Eye Exam 10/23/2024 10/24/2023, , 10/09/2022, Additional history exists CKD HGB USE SMARTSET 34798 03/16/202503/16, 03/16/2024, 03/02/2024, Additional history exists Colonoscopy 02/09/2027 02/09/2022, 08/14, [...] this encounter Medical Devices Implanted 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 Device 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 Care Teams Angiographer Relationship Specialty Start Date End Date Nancy Ryan DO [address] [place] [address] [place] [phone] PCP - General Internal Medicine 09/11/18 documented as of this encounter
--- OUTSIDE RECORDS SUMMARY | 2024-05-15 23:05 | External Medical Summary ---
Author Name Unknown Address Unknown Organization K01:[facility] [place] [facility] [address] [facility] [address] Laboratory Report Ordering Provider Test Date Status ML MURCIA 03/30/2024 09:21:40 Final Observation Date Value Abnormality Reference (Units ) Status WBC, Total 03/30/2024 09:21:40 4.78 4.00-10.80 (K/uL) Final RBC 03/30/2024 09:21:40 3.30 4.50-5.25 (M/uL) Final Hemoglobin 03/30/2024 09:21:40 9.9 Below low normal 14.0-16.8 (g/dL) Final HCT 03/30/2024 09:21:40 30.4 Below low normal 40.0-48.4 (%) Final MCV 03/30/2024 09:21:40 92.1 82.0-99.5 (fL) Final MCH 03/30/2024 09:21:40 30.0 27.0-34.0 (pg) Final MCHC 03/30/2024 09:21:40 32.6 32.0-36.0 (g/dL) Final RDW 03/30/2024 09:21:40 17.0 11.5-15.5 (%) Final Platelets 03/30/2024 09:21:40 172 140-400 (K/uL) Final MPV 03/30/2024 09:21:40 10.2 6.6-11.1 (fL) Final Nucleated erythrocytes/100 leukocytes [Ratio] in Blood by Automated count 03/30/2024 09:21:40 0 <=0 (/100 WBCs) Final Performing Location [facility] [place] [address] [place] [address]
--- OUTSIDE RECORDS SUMMARY | 2024-05-15 23:05 | External Medical Summary | Summary of Care ---
Author Name Unknown Organization [facility] Address [address] [place] [address] Phone [phone] Care Team Providers Care Location Man Name Role Phone Marlon Ibrahim DO Primary Care Provider [phone] Reason for Visit * Reason Onset Date Comments Medication Refill 04/07/2024 Encounter Details Date Type Department Care Team (Late st Contact Info) Description 04/07/2024 Refill Family Medicine [address] [phone] Marlon Ibrahim DO [address] [place] [address] [place] [address] Allergies No known active allergiesdocumented as of this encounter (statuses as of 04/07/2024) Medications Medication Sig Dispensed Refills Start Date End Date Status Blood Glucose Monitoring Suppl (SignifydUCH ULTRA SYSTEM) W/DEVICE KITIndications:D M type 2, [...] 200 Each 3 3 Active Epoetin Gautam-epbx 47780 UNIT/ML Injection Solution (Retacrit) Inject 2 mL [...] in the morning. 30 Tablet 4 Active [place]-3 Fish Oil 1000 MG Oral Capsule ([place]-3) Take 1 Capsule by mouth in the [...] the morning. 90 Tablet 1 4 Active Atorvastatin Calcium 20 MG Oral [...] as of this encounter (statuses as of 04/07/2024) Active Problems Problem Noted Date Diagnosed Date [...] as of this encounter (statuses as of 04/07/2024) Resolved Problems Problem Noted Date Diagnosed Date [...] as of this encounter (statuses as of 04/07/2024) Immunizations Name Administration Dates Next Due COVID-19 mRNA, LNP-s, No Pre serve, 2-Dose Series (Pfizer) 06/20/2021,10/22/2020,09/26/2020 COVID-19, LNP-s, No Preserve , Jamie-sucrose, Ages 12+ (Pfizer) 03/13/2022 Covid-19, Mrna, Lnp-s, Pf, B ivalent, 30 Mcg, IM, 12 yrs and above (Pfizer) 09/20/2022 Pneumococcal Conjugate Vacci ne, 20-valent (Nopuegs14) 03/14/2022 Pneumococcal Polysaccharide PPV23 (Pneumovax) 03/19/2006 Seasonal [...] Telephone Encounter - Marlon Ibrahim DO - 04/07/2024 2:15 PM EDTSigned Prescriptions: Disp Refills Atorvastatin Calcium 20 MG Oral Tablet (Li*90 Tab*1 Sig: Take 1 Tablet by mouth in the morning. Authorizing Provider: MARLON IBRAHIM * Telephone Encounter - Ambar Wiley RN - 04/07/2024 11:54 AM EDTPending Prescriptions: Disp Refills Atorvastatin Calcium 20 MG Oral Tablet (Li*90 Tab*1 Sig: Take 1 Tablet by mouth in the morning. * Telephone Encounter - Kristi Brown OSA - 04/07/2024 9:48 AM EDT Did you pend patient's preferred pharmacy and medication before forwarding?yes Pharmacy: [id number] [id number] [facility] Pending Prescriptions: Disp Refills Atorvastatin Calcium 20 MG Oral Tablet (L*30 Tab*0 Sig: Take 1 Tablet by mouth in the morning. Last Visit: 03/27/2024 (in office), Visit date not found (telemedicine) Next Visit: 11/17/2024 If no future appointments scheduled, and last appointment is greater than a year ago, please schedule patient for a follow-up appointment Last date the medication was ordered: 12/05/23 Is this request for a controlled substance?No [...] Description 04/14/2024 10:00 AM EDT Laboratory Laboratory [address] [place] [phone] [place], Lab [address] [place] [address] 04/14/2024 10:30 AM EDT Immunization/Injectio n Hematology/Oncology Treatment, [place] [address] [facility] [place] [phone] Jordana, Chair 11 Hem Onc [facility] [address] [facility] [place] [address] 04/21/2024 2:00 PM EDT Office Visit Cardiology [address] [place] [address] Prabhakar Henning PA-C [address] [place] [address] 04/30/2024 2:30 PM EDT Office Visit Nephrology, [facility] [address] [facility] [place] [address] Beckie Dunbar PA-C [address] [facility] [place] [address] 06/02/2024 10:30 AM EDT Office Visit [facility] Anthony [address] [place] [phone] Dorothy Toscano CRNP [address] [place] [address] 06/23/2024 9:15 AM EST Office Visit Hematology/Oncology [facility] [place] [address] [place] [phone] Fly Velazquez MD [address] [place] [address] 09/18/2024 2:00 PM EST Office Visit Nephrology [address] [place] [address] Beckie Dunbar PA-C [address] [place] [address] 10/22/2024 10:00 AM EDT Office Visit Sleep Disorders Ctr Manny [place] [address] [place] [phone] Dorothy Toscano CRNP [address] [place] [address] 11/17/2024 9:30 AM EDT Office Visit Family Medicine [address] [place] [phone] Marlon Ibrahim[address] [place] [address] Scheduled Procedures Name Priority Associated Diagnoses Date/Ti [...] 05/19/2021, Additional history exists HbA1c 06/24/2024 12/23/2023, 1211/2022, 03/19/2023, Additional history exists GFR 08/04/2024 2024, 01/10, 12/23/2023, Additional history exists CKD PHOS USE SMARTSET 39469 09/02/202408/13, 09/18/2022, 08/29/2021, Additional history exists Diabetic Eye Exam 10/23/2024 10/24/2023, , 10/09/2022, Additional history exists CKD HGB USE SMARTSET 64437 03/30/202503/30, 03/30/2024, 03/16/2024, Additional history exists Colonoscopy [...] this encounter Medical Devices Implanted 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 Care Teams Location Man Relationship Specialty Start Date End Date Marlon Ibrahim DO [address] [place] [address] [place] [address] PCP - General Internal Medicine 09/11/18 documented as of this encounter
--- OUTSIDE RECORDS SUMMARY | 2024-05-15 23:05 | External Medical Summary | Summary of Care ---
Author Name Unknown Organization [facility] Address [address] [place] [address] Phone [phone] Care Team Providers Care Patternator Name Role Phone Ryan Nancy Muro Primary Care Provider Reason for Visit * Reason Comments Follow Up 3 month follow up Encounter Details Date Type Department Care Team (Late st Contact Info) Description 03/27/2024 10:40 AM EDT Office Visit Family Medicine [address] [place] [address] Marry Hansen [address] [place] [address] HTN, goal below 140/90*; Diarrhea of presumed infectious origin; Ulcers of both lower extremities, unspecified ulcer stage (HCC) Allergies No known active allergiesdocumented as of this encounter (statuses as of 03/27/2024) Medications Medication Sig Dispensed Refills Start Date End Date Status Blood Glucose Monitoring Suppl (Soliant EnergyTOUCH ULTRA SYSTEM) W/DEVICE KITIndications:D M type 2, goal A1c below 7 Use as directed 4 times a day. Use up to four times a day as directed. Diagnosis = E11.9 1 Kit 0 5 Active BD Pen Needle Wilda U/F 32G X 4 MM (Insulin Pen Needle)Indicatio ns:Type 2 diabetes mellitus with diabetic neuropathy, with long-term current use of insulin ([facility]),Type 2 diabetes mellitus with hemoglobin A1c [...] long-term current use of insulin ([facility]) Use TWICE a day to test glucose Diagnosis = E11.9 200 Each 3 3 Active Epoetin Gautam-epbx 34827 UNIT/ML Injection Solution (Retacrit) Inject 2 mL intravenously once. Every two weeks Active Allopurinol 100 MG Oral Tablet (Zyloprim) Take 1 Tablet by mouth in the morning. Take 1 tablet by mouth in the morning. 30 Tablet 4 Active Atorvastatin Calcium 20 MG Oral [...] in the morning. 30 Tablet 4 Active Arcola-3 Fish Oil 1000 MG Oral Capsule (Arcola-3) Take 1 Capsule by mouth in the [...] at bedtime. 2.5 mL 6 4 Active Polyethylene Glycol 3350 17 GM/SCOOP Oral Powder (MiraLax) Take 17 g by mouth in the morning. Dissolve one heaping tablespoon in 8 ounces of water or juice.. 255 g 4 03/27/20 24 Discontinu ed(Patient preference /discontin uation) Hospital, Clinic, or Other Facility Administered Medication [...] as of this encounter (statuses as of 03/27/2024) Active Problems Problem Noted Date Diagnosed Date [...] Non-obstructive. Noted on CT scan at [facility] 05/2019 Mild nonproliferative diabet ic retinopathy of [...] as of this encounter (statuses as of 03/27/2024) Resolved Problems Problem Noted Date Diagnosed Date [...] as of this encounter (statuses as of 03/27/2024) Immunizations Name Administration Dates Next Due COVID-19 mRNA, LNP-s, No Pre serve, 2-Dose Series (Duogou) 06/20/2021,10/22/2020,09/26/2020 COVID-19, LNP-s, No Preserve , Jamie-sucrose, Ages 12+ (Pfizer) 03/13/2022 Covid-19, Mrna, Lnp-s, Pf, B ivalent, 30 Mcg, IM, 12 yrs and above (Pfizer) 09/20/2022 Pneumococcal Conjugate Vacci ne, 20-valent ([id number]) 03/14/2022 Pneumococcal Polysaccharide PPV23 (Pneumovax) 03/19/2006 Seasonal [...] Sign Reading Time Taken Comments Blood Pressure 132/68 03/27/2024 10:59 AM EDT Pulse 58 03/27/2024 10:59 AM EDT Temperature 35.9 C (96.6 F) 03/27/2024 10:59 AM E DT Respiratory Rate - - Oxygen Saturation 100% 03/27/2024 10:59 AM EDT Inhaled Oxygen Concentration - - Weight 135.6 kg (299 lb) 03/27/2024 10:59 AM EDT Height - - Body Mass Index 41.7 01/01/2024 9:50 AM EDT documented in this encounter Progress Notes * Marry Hansen CRNP - 03/27/2024 11:07 AM EDT Images from the original note were not included. History of Present Illness Servando Wu is a 69 year old male that presents for Follow Up (3 month follow up) 3 month f/u. Past medical hx of HTN, HLD, CHF, CKD III, DM II, venous insufficiency/venous ulcer. Since last visit has been doing well. Denies any concerns today. Last month was treated for C-dif with vancomycin. Diarrhea has resolved and reports he is doing much better. Leg wounds continue to improve. has been doing dressing changes. Has home health once a week who is also monitoring legs. Has been taking pictures HTN/CKDIII currently on Losartan, Torsemide, Carvedilol. Asymptomatic - denies any headaches, vision changes, dizziness, chest pain, or shortness of breath Has upcoming visits with cardiology and nephrology. Chronic anemia following with heme/onc. H&H has been stable. Patient Active Problem List Diagnosis SPENCER (obstructive sleep apnea) Type 2 diabetes mellitus with diabetic neuropathy, with long-term current use of insulin ([facility]) Gout of wrist Venous insufficiency Vitamin B12 deficiency Dyslipidemia, goal LDL below 100 Venous stasis dermatitis of both lower extremities DM neuropathy, type II diabetes mellitus ([facility]) History of DVT (deep vein thrombosis) Venous stasis ulcer of calf ([facility]) H/O amputation of lesser toe, unspecified laterality ([facility]) HTN, goal below 140/90 Iron deficiency anemia due to chronic blood loss 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 associated with type 2diabetes mellitus ([facility]) Hyperkalemia Renal calculi Non-pressure chronic ulcer of unspecified part of left lower leg with unspecified severity ([facility]) Varicose veins of right lower extremity with ulcer other part of lower leg (CODE) ([facility]) Non-pressure chronic ulcer of unspecified part of right lower leg with unspecified severity ([facility]) Acute gout due to renal impairment involving right wrist Primary osteoarthritis of right wrist Carpal tunnel syndrome of right wrist Chronic right-sided heart failure ([facility]) Other specified peripheral vascular diseases ([facility]) Chronic gout due to renal impairment, multiple sites, without tophus (tophi) Tubular adenoma History of adenomatous polyp of colon Non-pressure chronic ulcer of lower leg, limited to breakdown of skin ([facility]) Chronic venous hypertension (idiopathic) with ulcer of bilateral lower extremity (CODE) ([facility]) 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 ([facility]) Venous stasis ulcer of right calf limited to breakdown of skin ([facility]) Body mass index (BMI) of 40.0 to 44.9 in adult ([facility]) Full code status Chronic kidney disease, stage 3b ([facility]) Anemia due to stage 3b chronic kidney disease ([facility]) Current Outpatient Medications Medication Sig Dispense Refill Blood Glucose Monitoring Suppl (FileTrek SYSTEM) W/DEVICE KIT Use as directed 4 [...] = E11.9 200 Each 3 Epoetin Gautam-epbx 56610 UNIT/ML Injection Solution (Retacrit) Inject 2 mL intravenously once. Everytwo weeks Allopurinol 100 MG Oral Tablet (Zyloprim) Take 1 Tablet by mouth in the morning. Take 1 tablet by mouth in the morning. 30 Tablet 0 Atorvastatin Calcium 20 MG Oral Tablet (Lipitor) Take 1 Tablet by mouth in the morning. 30 Tablet 0 Carvedilol 6.25 MG Oral Tablet (Coreg) TAKE 1 TABLET BY MOUTH TWICE A DAY WITH BREAKFAST AND [id number] Tablet 3 Dorzolamide HCl-Timolol Mal 2-0.5 % Ophthalmic Solution (Cosopt Ocumeter Plus) INSTILL 1 DROP INTO BOTH EYES BY OPHTHALMIC ROUTE ONCE IN THE MORING AND THE SECOND DROP AROUND 5 PM 10 mL 4 Ferrous Sulfate 325 (65 Fe) MG Oral Tablet (Feosol) Take 1 Tablet by mouth in the morning and 1 Tablet before bedtime. 100 Tablet 0 Insulin Glargine Solostar 100 UNIT/ML Subcutaneous Solution Pen-injector (Basaglar KwikPen) Inject 10 Units under the skin in the morning. (Patient taking differently: Inject 20 Units under the skin in the morning.) 15 mL 0 Melatonin 5 MG Oral Tablet Take 1 Tablet by mouth at bedtime. 30 Tablet 0 Multiple Vitamin Oral Tablet Take 1 Tablet by mouth in the morning. 30 Tablet 0 Arcola-3 Fish Oil 1000 MG Oral Capsule (Arcola-3) Take 1 Capsule by mouth in the [...] into eye at bedtime. 2.5 mL 6 Polyethylene Glycol 3350 17 GM/SCOOP Oral Powder (MiraLax) Take 17 g by mouth in the morning. Dissolve one heaping tablespoon in 8 ounces of water or juice.. 255 g 0 Current Facility-Administered Medications Medication Dose Route Frequency Provider Last Rate Last Admin bevaCIZumab (Avastin) inj 1.25 mg 1.25 mg Intravitreal PRN Mika Diaz, DO 1.25 mg at 06/13/23 1143 ROPivacaine (Naropin) inj 1.5 mg 1.5 mg Perineural PRN Mika Diaz DO 1.5 mg at 144 Review of patient's allergies indicates: No Known Allergies Past Medical History: Diagnosis Date Adult body mass index 50.0-59.9 ([facility]) 09/26/2010 Anemia 06/11/2001 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 management encounter 01/30/2002 Closed fracture of head of radius left wrist Closed fracture of phalanx of finger Fractured Finger #5 right digit DM neuropathy, type II diabetes mellitus ([facility]) 05/08/2016 DM type 2, goal A1c below 7 06/09/2009 DM type 2, not at goal ([facility]) DVT (deep venous thrombosis) ([facility]) 03/18/2012 Dyslipidemia, goal LDL below 100 05/28/2013 Edema 01/17/2010 Fall 01/22/2023 "not sure ho-13 fractures and brain bleed" Fracture of clavicle, closed right colar bone fractured Gout 04/18/2004 uric acid 7.9 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 03/16/2005 Lumbar degenerative disc disease 03/28/2016 Morbid Obesity, BMI not known Persistent insomnia 06/29/2014 Phlebitis and thrombophlebitis 06/11/2001 Phlebitis and thrombophlebitis of other deep vessels of lower extremities Restless legs syndrome 06/29/2014 Retinal tear 2006 left eye-treated at [facility] in [place] Sensory peripheral neuropathy 05/08/2016 SLEEP APNEA NOS 06/11/2001 Ulcer of lower limb (HCC) 01/17/2010 Venous insufficiency 04/23/2013 Venous stasis dermatitis 11/09/2014 Venous stasis dermatitis of both lower extremities 11/30/2015 Vitamin B12 deficiency 05/28/2013 Past Surgical History: Procedure Laterality Date 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 COLONOSCOPY, DIAGNOSTIC (RECTUM) 2008 Dr Hope - [facility] COLONOSCOPY, DIAGNOSTIC (RECTUM) 02/09/2022 benign adenomatous polyp, fair prep, repeat 5 yrs / [facility] EGD, FLEXIBLE, DIAGNOSTIC 09/11/2018 adenomatous & TVA polyps, repeat 3 yrs/[facility] EGD, FLEXIBLE, DIAGNOSTIC 06/30/2021 mild gastric irritation, hyperplastic gastric polyps / [facility] EGD, FLEXIBLE, DIAGNOSTIC N/A 09/26/2023 gastritis/non-obstructing non-bleeding duodenal ulcers/biposies show inflammatory changes/repeat 3 months/ESOPHAGOGASTRODUODENOSCOPY (EGD), FLEXIBLE, TRANSORAL, DIAGNOSTIC performed by Echo Jeong DO at OR [facility] EGD, FLEXIBLE, DIAGNOSTIC N/A 01/01/2024 ESOPHAGOGASTRODUODENOSCOPY (EGD), FLEXIBLE, TRANSORAL, DIAGNOSTIC performed by Jayda Jeong DOat OR [facility] FLUORESCEIN ANGIOGRAPHY MULTIFRAME Left 06/12/2022 FA, [...] performed by Raul Neely MD at OR [facility] RELIEVE INNER EYE PRESSURE Left 01/24/2017 left GONIOTOMY performed by Raul Neely MD at OR [facility] RELIEVE INNER EYE PRESSURE Left 01/29/2017 left GONIOTOMY performed by Raul Neely MD at OR [facility] REMOVE CATARACT, INSERT LENS PROSTH Right 12/25/2016 right EXTRACAPSULAR CATARACT REMOVAL WITH INTRAOCULAR LENS performed by Raul Neely MD at OR [facility] REMOVE CATARACT, INSERT LENS PROSTH Left 01/24/2017 left EXTRACAPSULAR CATARACT REMOVAL WITH INTRAOCULAR LENS performed by Raul Neely MD at OR [facility] REMOVE CATARACT, INSERT LENS PROSTH Left 01/29/2017 left EXTRACAPSULAR CATARACT REMOVAL WITH INTRAOCULAR LENS performed by Raul Neely MD at OR [facility] TREATMENT OF EXTENSIVE RETINOPATHY, PHOTOCOAGULATION Right 07/17/2023 Laser treatment OD, Dr. 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 [employer] Employer: [employer] [...] on file Housing Stability: Not on file Physical Exam Vitals: 03/27/24 1059 Temp: 35.9 C (96.6 F) Pulse: 58 SpO2: 100% BP: 132/68 General: A&Ox3 and no distress Head: Normocephalic and atraumatic Eye Exam: PERRLA, conjunctiva are pink and non-injected, sclera clear Ears: External ears normal, Canals clear, TM's Normal Nose: no mucosal erythema, no mucosal edema, no purulent discharge Oropharynx: no exudate, no erythema, lips, buccal mucosa, and tongue normal, and mucous membranes are moist Neck: supple, no adenopathy, thyroid normal size, non-tender, without nodularity Heart: regular rate & rhythm, no murmur, no gallops, S-1 normal, and S-2 normal Lungs: normal respiratory rate and rhythm, lungs clear to auscultation Abdomen: abdomen soft, non-tender, normal bowel sounds Skin: warm and dry I have reviewed the following results: BMP results Recent Labs Units 02/03/24 1055 01/20/24 1040 12/23/23 1035 SODIUM - [facility] mmol/L 139 138 138 POTASSIUM - [facility] mmol/L 4.6 4.8 4.4 CHLORIDE - [facility] mmol/L 106 105 104 CO2 - [facility] mmol/L 22 20* 21* CREATININE - [facility] mg/dL 1.8* 1.9* 1.9* BUN - [facility] mg/dL 49* 65* 52* CBC results Recent Labs Units 03/16/24 0908 03/02/24 0921 02/17/24 1022 WBC K/uL 5.52 5.87 5.39 HGB g/dL 10.0* 9.7* 10.1* HCT % 30.9* 30.1* 31.1* PLT K/uL 173 156 186 Assessment and Plan HTN, goal below 140/90 Diarrhea of presumed infectious origin Ulcers of both lower extremities, unspecified ulcer stage (HCC) Plan - VS reviewed / BP good today - H&H stable / kidney function stable - diarrhea has resolved - follow up with cardiology and nephrology as scheduled - continue with current wound care regimen / monitor for signs of infection Wrap-Up Follow-up: Return in about 6 months (around 09/27/2024). | Check-out note: With Dr. Ryan Time: I spent a total of 20-29 minutes (exact time 26 mins) on the date of service in preparation, delivery, and documentation of the care provided to Ronnie Wu excluding any time spent in the performance of separately billed services. documented in this encounter Plan of Treatment Upcoming Encounters Date Type Department Care Team (Late st Contact Info) Description 03/30/2024 9:00 AM EDT Laboratory Laboratory [address] [place] [phone] [facility] [address] [place] [address] 03/31/2024 10:15 AM EDT Immunization/Injectio n Hematology/Oncology Treatment, [place] [address] [place] [phone] Jordana, Chair 7 Hem Onc [address] [place] [address] 04/21/2024 2:00 PM EDT Office Visit Cardiology [address] [place] [address] Prabhakar Henning PA-C [address] [facility] [place] [address] 04/30/2024 2:30 PM EDT Office Visit Nephrology, [facility] [address] [facility] [place] [address] Beckie Dunbar PA-C [address] [facility] [place] [address] 06/02/2024 10:30 AM EDT Office Visit Sleep Disorders Ctr Manny Browne [place] [facility] [place] [phone] Dorothy Toscano CRNP [address] [place] [address] 06/23/2024 9:15 AM EST Office Visit Hematology/Oncology En [facility] [place] [address] [place] [phone] Fly Velazquez MD [address] [place] [address] 09/18/2024 2:00 PM EST Office Visit Nephrology [address] [place] [address] Beckie Dunbar PA-C [address] [place] [address] 10/22/2024 10:00 AM EDT Office Visit Sleep Disorders Ctr M[facility] [place] [address] [place] [phone] Dorothy Toscano CRNP [address] [place] [address] 11/17/2024 9:30 AM EDT Office Visit Family Medicine [address] [place] [phone] [place] [address] Scheduled Procedures Name Priority Associated Diagnoses Date/Ti [...] Additional history exists CKD PHOS USE SMARTSET 72293 09/02/202408/13, 09/18/2022, 08/29/2021, Additional history exists Diabetic Eye Exam 10/23/2024 10/24/2023, , 10/09/2022, Additional history exists CKD HGB USE SMARTSET 49667 03/16/202503/16, 03/16/2024, 03/02/2024, Additional history exists Colonoscopy [...] this encounter Medical Devices Implanted Type Area Oleomargarine Maker Device Identifier Shelf Expiration Date Model / Serial / Lot Envista Hydrophobic Acrylic Intraocular Lens Implanted:Qty: 1 on 12/25/2016 by Raul Neely MD at OR [facility] Right: Eye [employer] 11/09/2018 [id number] / [id number] / [id number] Envista Mx60 +10.0 D Implanted:Qty: 1 on 01/29/2017 by Raul Neely MD at OR [facility] Left: Eye 11/09/2018 [id number] / [id number] / [id number] documented as of this encounter Visit Diagnoses Diagnosis HTN, goal below 140/90- Primary Unspecified essential hypertension Diarrhea of presumed infectious origin Ulcers of both lower extremities, unspecified ulcer stage (HCC) documented in this encounter Additional Health [...] and were consensually agreed upon. Care Teams Patternator Relationship Specialty Start Date End Date Nancy Ryan DO [address] [place] [address] [place] [phone] PCP - General Internal Medicine 09/11/18 documented as of this encounter
--- OUTSIDE RECORDS SUMMARY | 2024-05-15 23:06 | External Medical Summary | Summary of Care ---
Author Name Unknown Organization [facility] Address [address] [place] [address] Phone [phone] Care Team Providers Care Boiler Service Technician Name Role Phone Nancy Ryan DO Primary Care Provider [phone] Reason for Visit * Reason Comments Medication Administration Retacrit. * Episode Based Medications (Routine) - Authorized Specialty Diagnoses / Procedures Referred By Contac t Referred To Contact Diagnoses Anemia due to stage 3a chronic kidney disease (HCC) Procedures [place] INJ RETACRIT NON-ESRD USE Tameka Pires CRNP [address] [place] [address] Anc Hem/Onc En [place] DEPT CLOSED - 06/25/[address] [facility] [address] [place] [address] Referral ID Status Reason Start Date Expiration Date V isits Requested Visits Authorized [id number] Authorized 12/10/2023 06/04/[phone] Encounter Details Date Type Department Care Team (Late st Contact Info) Description 02/18/2024 10:15 AM EDT Immunization/I njection Hematology/Oncology Treatment, [place] [address] [place] [address] Nurse, Med 4 Anemia due to stage 3a chronic kidney disease (HCC)* Allergies No known active allergiesdocumented as of this encounter (statuses as of 03/16/2024) Medications Medication Sig Dispensed Refills Start Date End Date Status Blood Glucose Monitoring Suppl (Steek SA ULTRA SYSTEM) W/DEVICE KITIndications:DM type 2, goal [...] DX e11.9 100 Each 3 10/17/2021 Active Mofibo Verio In Vitro Strip (Glucose Blood) Use to test blood sugars twice a day. Dx. E11.9 300 Strip 1 03/13/2023 Active Mofibo Delica Lancets 30GIndications:Typ e 2 diabetes mellitus with diabetic neuropathy, with long-term current use of insulin (HCC) Use TWICE a day to test glucose Diagnosis = E11.9 200 Each 3 03/19/2023 Active Epoetin Gautam-epbx 21846 UNIT/ML Injection Solution (Retacrit) Inject 2 mL [...] in the morning. 15 mL 12/05/2023 Active Melatonin 5 MG Oral Tablet Take 1 Tablet by mouth at bedtime. 30 Tablet 12/05/2023 Active Multiple Vitamin Oral Tablet Take 1 Tablet by mouth in the morning. 30 Tablet 12/05/2023 Active Wat[place]a-3 Fish Oil 1000 MG Oral Capsule (Wat[place]a-3) Take 1 Capsule by mouth in the morning. 30 Capsule 12/05/2023 Active Polyethylene Glycol 3350 17 GM/SCOOP Oral Powder (MiraLax) Take 17 g by mouth in the morning. Dissolve one heaping tablespoon in 8 ounces of water or juice.. 255 g 12/05/2023 Active Rhopressa 0.02 % Ophthalmic Solution Instill 1 Drop into the left eye at bedtime. 2.5 mL 12/05/2023 Active Torsemide 20 MG Oral Tablet [...] Diabetes Mellitus 3 mL 5 01/27/2024 Active Hospital, Clinic, or Other Facility Administered [...] as of this encounter (statuses as of 03/16/2024) Active Problems Problem Noted Date Diagnosed Date [...] Overview: Non-obstructive. 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 icoagulant therapy [...] as of this encounter (statuses as of 03/16/2024) Immunizations Name Administration Dates Next Due COVID-19 mRNA, LNP-s, No Pre serve, 2-Dose Series (Disqus) 06/20/2021,10/22/2020,09/26/2020 COVID-19, LNP-s, No Preserve , Jamie-sucrose, Ages 12+ (Pfizer) 03/13/2022 Covid-19, Mrna, Lnp-s, Pf, B ivalent, 30 Mcg, IM, 12 yrs and above (Pfizer) 09/20/2022 Pneumococcal Conjugate Vacci ne, 20-valent ([id number]) 03/14/2022 Pneumococcal Polysaccharide PPV23 (Pneumovax) 03/19/2006 Seasonal [...] Sign Reading Time Taken Comments Blood Pressure 150/70 02/18/2024 10:05 AM EDT Pulse 83 02/18/2024 10:05 AM EDT Temperature 36.1 C (97 F) 02/18/2024 10:05 AM EDT Respiratory Rate 18 02/18/2024 10:05 AM EDT Oxygen Saturation 98% 02/18/2024 10:05 AM EDT Inhaled Oxygen Concentration - - Weight - - Height - - Body Mass Index - - documented in this encounter Nursing Notes * Mayela Gotti RN - 02/18/2024 10:07 AM EDT Chair 11. Patient arrived for retacrit with no acute complaints. Patient tolerated injection well. Discharged in stable condition. documented in this encounter Plan of Treatment Upcoming Encounters Date Type Department Care Team (Late st Contact Info) Description 03/17/2024 10:15 AM EDT Immunization/Injectio n Hematology/Oncology Treatment, [address] [place] [phone] Jordana, Chair 7 Hem Onc [address] [place] [address] 03/27/2024 10:40 AM EDT Office Visit Family Medicine [address] [place] [phone] [place] [address] 03/30/2024 9:00 AM EDT Laboratory Laboratory [address] [place] [phone] [facility] [address] [place] [address] 03/31/2024 10:15 AM EDT Immunization/Injectio n Hematology/Oncology Treatment, [address] [place] [phone] Jordana, Chair 7 Hem Onc [address] [place] [address] 04/21/2024 2:00 PM EDT Office Visit Cardiology [address] [place] [address] Prabhakar Henning PA-C [address] [place] [address] 04/30/2024 2:30 PM EDT Office Visit Nephrology, [address] [place] [address] Beckie Dunbar PA-C [address] [facility] [place] [address] 06/02/2024 10:30 AM EDT Office Visit Sleep Disorders Ctr Manny Browne [place] [address] [place] [phone] Dorothy Toscano CRNP [address] [place] [address] 06/23/2024 9:15 AM EST Office Visit Hematology/Oncology [facility] [address] [place] [phone] Fly Velazquez MD [address] [place] [address] 09/18/2024 2:00 PM EST Office Visit Nephrology [address] [place] [address] Beckie Dunbar PA-C [address] [place] [address] 10/22/2024 10:00 AM EDT Office Visit Sleep Disorders Ctr Manny Browne [place] [address] [place] [phone] Dorothy Toscano CRNP [address] [place] [address] Scheduled Procedures Name Priority Associated Diagnoses Date/Ti [...] Additional history exists CKD PHOS USE SMARTSET 16387 09/02/202408/13, 09/18/2022, 08/29/2021, Additional history exists Diabetic Eye Exam 10/23/2024 10/24/2023, , 10/09/2022, Additional history exists CKD HGB USE SMARTSET 73032 03/16/202503/16, 03/16/2024, 03/02/2024, Additional history exists Colonoscopy [...] this encounter Medical Devices Implanted Type Area Enterostomal Nurse Device Identifier Shelf Expiration Date Model / Serial / Lot Envista Hydrophobic Acrylic Intraocular Lens Implanted:Qty: 1 on 12/25/2016 by Raul Neely MD at OR [facility] Right: Eye [employer] LOMB 11/09/2018 [id number] / [id number] / [id number] Envista Mx60 +10.0 D Implanted:Qty: 1 on 01/29/2017 by Raul Neely MD at OR [facility] Left: Eye 11/09/2018 [id number] / [id number] documented as of this encounter Visit Diagnoses Diagnosis Anemia due to stage 3a chronic kidney disease (HCC)- Primary documented in this encounter Administered Medications Inactive Administered Medications - up to 3 most recent administrations Medication Order MAR Action Action Date Dose Rate Site Epoetin Gautam-epbx (Retacrit) 05221 UNIT/ML inj 40,000 Units 40,000 Units, Subcutaneous, ONCE, On Sat02/18/24 at 1045, For 1 dose Given 02/18/2024 10:13 AM EDT 40,000 Units Arm Right Upper [...] and were consensually agreed upon. Care Teams Boiler Service Technician Relationship Specialty Start Date End Date Nancy Ryan DO [address] [place] [address] [place] [phone] PCP - General Internal Medicine 09/11/18 documented as of this encounter
--- OUTSIDE RECORDS SUMMARY | 2024-05-15 23:06 | External Medical Summary | Summary of Care ---
Author Name Unknown Organization [facility] Address [address] [place] [address] Phone [phone] Care Team Providers Care School Psychology Professor Name Role Phone Nancy Ryan DO Primary Care Provider Reason for Visit * Reason Comments Medication Administration Retacrit 40,00 0 units * Episode Based Medications (Routine) - Authorized Specialty Diagnoses / Procedures Referred By Contac t Referred To Contact Diagnoses Anemia due to stage 3a chronic kidney disease (HCC) Procedures [place] INJ RETACRIT NON-ESRD USE Tameka Pires CRNP [address] [place] [address] Anc Hem/Onc En [place] DEPT CLOSED - 06/25/23 [address] [facility] [place] [address] Referral ID Status Reason Start Date Expiration Date V isits Requested Visits Authorized [id number] Authorized 12/10/2023 06/04/[phone] Encounter Details Date Type Department Care Team (Late st Contact Info) Description 03/17/2024 10:15 AM EDT Immunization/I njection Hematology/Oncology Treatment, [place] [address] [place] [phone] Jordana, Chair 7 Hem Onc [address] [address] [facility] [place], [place] [phone] Anemia due to stage 3a chronic kidney disease (HCC)* Allergies No known active allergiesdocumented as of this encounter (statuses as of 03/17/2024) Medications Medication Sig Dispensed Refills Start Date End Date Status Blood Glucose Monitoring Suppl (Syrinix ULTRA SYSTEM) W/DEVICE KITIndications:DM type 2, goal [...] insulin ([facility]),Type 2 diabetes mellitus with hemoglobin A1c goal of less than 7.0% ([facility]) Use once a day with basaglar. DX e11.9 100 Each 3 10/17/2021 Active [employer] Verio In Vitro Strip (Glucose Blood) Use to test blood sugars twice a day. Dx. E11.9 300 Strip 1 03/13/2023 Active [employer]uch Delica Lancets 30GIndications:Typ e 2 diabetes mellitus with diabetic neuropathy, with long-term current use of insulin ([facility]) Use TWICE a day to test glucose Diagnosis = E11.9 200 Each 3 03/19/2023 Active Epoetin Gautam-epbx 72127 UNIT/ML Injection Solution (Retacrit) Inject 2 mL [...] in the morning. 30 Tablet 12/05/2023 Active [place]-3 Fish Oil 1000 MG Oral Capsule ([place]-3) Take 1 Capsule by mouth in the [...] Diabetes Mellitus 3 mL 5 01/27/2024 Active Vancomycin HCl 125 MG Oral Capsule (Vancocin) Take 1 Capsule by mouth every 6 hours for 10 days. 40 Capsule 03/16/2024 Active Hospital, Clinic, or Other Facility Administered [...] as of this encounter (statuses as of 03/17/2024) Active Problems Problem Noted Date Diagnosed Date [...] as of this encounter (statuses as of 03/17/2024) Resolved Problems Problem Noted Date Diagnosed Date [...] Obesity Taxonomy 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 of inactive term MCFP current use of ant icoagulant therapy 03/16/2005 [...] as of this encounter (statuses as of 03/17/2024) Immunizations Name Administration Dates Next Due COVID-19 mRNA, LNP-s, No Pre serve, 2-Dose Series (ImpactGames) 06/20/2021,10/22/2020,09/26/2020 COVID-19, LNP-s, No Preserve , Jamie-sucrose, Ages 12+ (ImpactGames) 03/13/2022 Covid-19, Mrna, Lnp-s, Pf, B ivalent, 30 Mcg, IM, 12 yrs and above (ImpactGames) 09/20/2022 Pneumococcal Conjugate Vacci ne, 20-valent ([id number]) 03/14/2022 Pneumococcal Polysaccharide PPV23 (Pneumovax) 03/19/2006 Seasonal [...] Sign Reading Time Taken Comments Blood Pressure 135/80 03/17/2024 10:12 AM EDT Pulse - - Temperature - - Respiratory Rate - - Oxygen Saturation - - Inhaled Oxygen Concentration - - Weight - - Height - - Body Mass Index - - documented in this encounter Nursing Notes * Elizabeth Griffith LPN - 03/17/2024 10:24 AM EDT Retacrit 40,000 units administered SQ into the right upper extremity per standing order. HGB 10.0 Blood pressure 18/80 Patient tolerated injection and will return in 2 weeks. documented in this encounter Plan of Treatment Upcoming Encounters Date Type Department Care Team (Late st Contact Info) Description 03/27/2024 10:40 AM EDT Office Visit Family Medicine [address] [place] [phone] Marry Hansen [address] [place] [address] 03/30/2024 9:00 AM EDT Laboratory Laboratory [address] [place] [phone] [place], Lab [address] [place] [address] 03/31/2024 10:15 AM EDT Immunization/Injectio n Hematology/Oncology Treatment, [place] 200 [facility] [place] [phone] Jordana, Chair 7 Hem Onc [address] [place] [address] 04/21/2024 2:00 PM EDT Office Visit Cardiology [address] [place] [address] Prabhakar Henning PA-C 132 [facility] [place] [address] 04/30/2024 2:30 PM EDT Office Visit Nephrology, [facility] [address] [facility] [place] [address] Beckie Dunbar PA-C [address] [facility] [place] [address] 06/02/2024 10:30 AM EDT Office Visit Sleep Disorders Ctr [facility] Anthony 132 [facility] [place] [phone] Dorothy Toscano CRNP [address] [place] [address] 06/23/2024 9:15 AM EST Office Visit Hematology/Oncology [facility] [address] [place] [phone] Fly Velazquez MD [address] [place] [address] 09/18/2024 2:00 PM EST Office Visit Nephrology [address] [place] [address] Beckie Dunbar PA-C [address] [place] [address] 10/22/2024 10:00 AM EDT Office Visit [facility] Ctr [facility] [place] [phone] Dorothy Toscano CRNP [address] [place] [address] Scheduled Procedures Name Priority Associated Diagnoses Date/Ti [...] 03/19/2023, Additional history exists GFR 08/04/2024 2024, 06/1 , 12/23/2023, Additional history exists CKD PHOS USE SMARTSET 46264 09/02/202408/13, 09/18/2022, 08/29/2021, Additional history exists Diabetic Eye Exam 10/23/2024 10/24/2023, , 10/09/2022, Additional history exists CKD HGB USE SMARTSET 28230 03/16/202503/16, 03/16/2024, 03/02/2024, Additional history exists Colonoscopy [...] this encounter Medical Devices Implanted Type Area Glass Mold Repairer Device Identifier Shelf Expiration Date Model / Serial / Lot Envista Hydrophobic Acrylic Intraocular Lens Implanted:Qty: 1 on 12/25/2016 by Raul Neely MD at OR [facility] Right: Eye [employer]USCH [employer] LOMB 11/09/2018 [id number] / [id number] / [id number] Envista Mx60 +10.0 D Implanted:Qty: 1 on 01/29/2017 by Raul Neely MD at OR [facility] Left: Eye 11/09/2018 [id number] / [id number] / [id number] documented as of this encounter Visit Diagnoses Diagnosis Anemia due to stage 3a chronic kidney disease (HCC)- Primary documented in this encounter Administered Medications Inactive Administered Medications - up to 3 most recent administrations Medication Order MAR Action Action Date Dose Rate Site Epoetin Gautam-epbx (Retacrit) 52018 UNIT/ML inj 40,000 Units 40,000 Units, Subcutaneous, ONCE, On Sat03/17/24 at 1045, For 1 dose Given 03/17/2024 10:16 AM EDT 40,000 Units Arm Right Upper [...] and were consensually agreed upon. Care Teams School Psychology Professor Relationship Specialty Start Date End Date Nancy Ryan DO [address] [place] [address] [place] [phone] PCP - General Internal Medicine 09/11/18 documented as of this encounter
--- OUTSIDE RECORDS SUMMARY | 2024-05-15 23:06 | External Medical Summary | Summary of Care ---
Author Name Unknown Organization [facility] Address [address] [place] [address] Phone [phone] Care Team Providers Care Top Frame Maker Name Role Phone Nancy Ryan DO Primary Care Provider [phone] Reason for Visit * Reason Onset Date Comments Medication Question 03/12/2024 Encounter Details Date Type Department Care Team (Late st Contact Info) Description 03/12/2024 Telephone Family Medicine [address] [phone] Nancy Ryan DO [address] [place] [address] [place] [address] Medication Question Allergies No known active allergiesdocumented as of this encounter (statuses as of 03/16/2024) Medications Medication Sig Dispensed Refills Start Date End Date Status Blood Glucose Monitoring Suppl (Pulaski BankUCH ULTRA SYSTEM) W/DEVICE KITIndications:DM type 2, goal [...] 200 Each 3 03/19/2023 Active Epoetin Gautam-epbx 21845 UNIT/ML Injection Solution (Retacrit) Inject 2 mL [...] in the morning. 30 Tablet 12/05/2023 Active [place]-3 Fish Oil 1000 MG Oral Capsule ([place]-3) Take 1 Capsule by mouth in the [...] hours for 10 days. 40 Capsule 03/16/2024 4 Active Hospital, Clinic, or Other Facility [...] Overview: Non-obstructive. Noted on CT scan at [facility] 05/2019 Mild nonproliferative diabet [...] (Pfizer) 09/20/2022 Pneumococcal Conjugate Vacci ne, 20-valent ([id number]) 03/14/2022 Pneumococcal Polysaccharide PPV23 (Pneumovax) 03/19/2006 Seasonal [...] Telephone Encounter - Nancy Ryan DO - 03/16/2024 7:50 PM EDT Resent. Duration was to be 10 days. * Telephone Encounter - Mercedes Bojorquez OSA - 03/12/2024 10:03 AM EDT Clarification is needed for medication Vancomycin. [facility] pharmacy [address] states " The sig states for 10 and 7 days. Please specify how many days" documented in this encounter Plan of Treatment Upcoming Encounters Date Type Department Care Team (Late st Contact Info) Description 03/17/2024 10:15 AM EDT Immunization/Injectio n Hematology/Oncology Treatment, [place] [address] [place] [phone] Jordana, Chair 7 Hem [address]c [address] [address] 03/27/2024 10:40 AM EDT Office Visit Family Medicine [address] [phone] Marry Hansen CRNP [address] [place] [address] [place] [address] 03/30/2024 9:00 AM EDT Laboratory Laboratory [address] [place] [phone] [place] [address] [place] [address] 03/31/2024 10:15 AM EDT Immunization/Injectio n Hematology/Oncology Treatment, [address] [place] [phone] Jordana, Chair 7 Hem Onc [address] [place] [address] 04/21/2024 2:00 PM EDT Office Visit Cardiology [address] [place] [address] Prabhakar Henning PA-C [address] [place] [address] 04/30/2024 2:30 PM EDT Office Visit Nephrology, [address] [place] [address] Beckie Dunbar PA-C 200 [facility] [place] [address] 06/02/2024 10:30 AM EDT Office Visit Sleep Disorders Ctr Manny Browne [place] [address] [place] [phone] Dorothy Toscano CRNP [address] [place] [address] 06/23/2024 9:15 AM EST Office Visit Hematology/Oncology [facility] [place] 200 [facility] [place] [phone] Fly Velazquez MD [address] [place] [address] 09/18/2024 2:00 PM EST Office Visit Nephrology [address] [place] [address] Beckie Dunbar PA-C [address] [place] [address] 10/22/2024 10:00 AM EDT Office Visit Sleep Disorders Ctr Manny Browne, [place] [address] [place] [phone] Dorothy Toscano CRNP [address] [place] [address] Scheduled Procedures Name Priority Associated Diagnoses Date/Ti [...] Additional history exists CKD PHOS USE SMARTSET 75123 09/02/202408/13, 09/18/2022, 08/29/2021, Additional history exists Diabetic Eye Exam 10/23/2024 10/24/2023, , 10/09/2022, Additional history exists CKD HGB USE SMARTSET 28274 03/16/202503/16, 03/16/2024, 03/02/2024, Additional history exists Colonoscopy [...] this encounter Medical Devices Implanted Type Area Postal Mail Carrier Device Identifier Shelf Expiration Date Model / Serial / Lot Envista Hydrophobic Acrylic Intraocular Lens Implanted:Qty: 1 on 12/25/2016 by Raul Neely MD at OR [facility] Right: Eye [employer] LOM[employer] 11/09/2018 [id number] / [id number] / [id number] Envista Mx60 +10.0 D Implanted:Qty: 1 on 01/29/2017 by Raul Neely MD at [facility] Left: Eye 11/09/2018 [id number] / [id number] documented as of this encounter Additional Health [...] and were consensually agreed upon. Care Teams Top Frame Maker Relationship Specialty Start Date End Date Nancy Ryan DO [address] [place] [address] [place] [address] PCP - General Internal Medicine 09/11/18 documented as of this encounter
--- OUTSIDE RECORDS SUMMARY | 2024-05-15 23:06 | External Medical Summary | Summary of Care ---
Author Name Unknown Organization [facility] Address [address] [place] [address] Phone [phone] Care Team Providers Care Broadcast Operations Director Name Role Phone Nancy Ryan DO Primary Care Provider [phone] Reason for Visit * Reason Onset Date Comments Home Monitoring Alarm 03/24/2024 Encounter Details Date Type Department Care Team (Late st Contact Info) Description 03/24/2024 Home Monitoring Care Coordination [address], [place] [id number] Diane Hernandez LPN HTN, goal below 140/90* Allergies No known active allergiesdocumented as of this encounter (statuses as of 03/24/2024) Medications Medication Sig Dispensed Refills Start Date [...] 200 Each 3 03/19/2023 Active Epoetin Gautam-epbx 96436 UNIT/ML Injection Solution (Retacrit) Inject 2 mL [...] in the morning. 30 Tablet 12/05/2023 Active [place]-3 Fish Oil 1000 MG Oral Capsule (Greenville-3) Take 1 Capsule by mouth in the [...] use of insulin ([facility]) Inject 2 mg under the [...] as of this encounter (statuses as of 03/24/2024) Active Problems Problem Noted Date Diagnosed Date [...] Overview: Non-obstructive. Noted on CT scan at [facility] 05/2019 Mild nonproliferative diabet ic [...] as of this encounter (statuses as of 03/24/2024) Resolved Problems Problem Noted Date Diagnosed Date [...] Taxonomy 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 of inactive term terminal clerk current use of ant icoagulant therapy 03/16/2005 [...] as of this encounter (statuses as of 03/24/2024) Immunizations Name Administration Dates Next Due COVID-19 mRNA, LNP-s, No Pre serve, 2-Dose Series (AdhereTech) 06/20/2021,10/22/2020,09/26/2020 COVID-19, LNP-s, No Preserve , Jamie-sucrose, Ages 12+ (Pfizer) 03/13/2022 Covid-19, Mrna, Lnp-s, Pf, B ivalent, 30 Mcg, IM, 12 yrs and above (Pfizer) 09/20/2022 Pneumococcal Conjugate Vacci ne, 20-valent ([id number]) 03/14/2022 Pneumococcal Polysaccharide PPV23 (Pneumovax) 03/19/2006 Seasonal [...] Progress Notes * Jena Haas RPh - 03/24/2024 12:15 PM EDT [facility] - Hypertension Management This patient was contacted as part of the [facility] Nephrology 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 Blood Pressure Goal: 140/90 mmHg Systolic Diastolic Pulse Systolic Diastolic 143 76 Average 139 74 147 77 133 76 High 80 80 138 80 Low 65 65 148 67 136 78 Range 15 15 129 65 Count 7 7 BP average remaining at goal. No changes at this time, will continue to monitor. Jena Haas RPh, PharmD Clinical Pharmacist - Print Shop Manager Medication Therapy [facility] 03/24/2024, 12:15 PM [phone] * Diane Hernandez LPN - 03/24/2024 9:52 AM EDT Ronnie Wu [id number] Ronnie Wu is currently participating in the [facility] Hypertension Management Program and had areading on 03/24/24 of 150/81. Pt has alerted for an Average BP [...] 10:40 AM EDT Office Visit Family Medicine [address] [place] [phone] Marry Hansen [address] [place] [address] 03/30/2024 9:00 AM EDT Laboratory Laboratory [address] [place] [phone] [place], Lab [address] [place] [address] 03/31/2024 10:15 AM EDT Immunization/Injectio n Hematology/[address] [address] Jordana, Chair 7 Hem On[address] [place] [address] 04/21/2024 2:00 PM EDT Office Visit Cardiology [address] [place] [address] Prabhakar Henning PA-C [address] [place] [address] 04/30/2024 2:30 PM EDT Office Visit Nephrology, [address] [place] [address] Beckie Dunbar PA-C [facility] [place] [address] 06/02/2024 10:30 AM EDT [facility] [place] [phone] Dorothy Tocsano CRNP 132 [facility] [place] [address] 06/23/2024 9:15 AM EST Office Visit Hematology/Oncology [facility] [place] [phone] Fly Velazquez MD [address] [facility] [place] [address] 09/18/2024 2:00 PM EST Office Visit Nephrology [address] [place] [address] Beckie Dunbar PA-C [facility] [place] [address] 10/22/2024 10:00 AM EDT [facility] [place] 132 [facility] [place] [phone] Dorothy Toscano CRNP 132 [facility] [place] [address] Scheduled Procedures Name Priority Associated Diagnoses Date/Ti [...] Additional history exists CKD PHOS USE SMARTSET 08226 09/02/202408/13, 09/18/2022, 08/29/2021, Additional history exists Diabetic Eye Exam 10/23/2024 10/24/2023, , 10/09/2022, Additional history exists CKD HGB USE SMARTSET 02451 03/16/202503/16, 03/16/2024, 03/02/2024, Additional history exists Colonoscopy [...] this encounter Medical Devices Implanted Type Area Pharmacy Operations Specialist Device Identifier Shelf Expiration Date Model / Serial / Lot Envista Hydrophobic Acrylic Intraocular Lens Implanted:Qty: 1 on 12/25/2016 by Raul Neely MD at OR [facility] Right: Eye [employer]OM[employer] 11/09/2018 [id number] / [id number] / [id number] Envista Mx60 +10.0 D Implanted:Qty: 1 on 01/29/2017 by Raul Neely MD at OR [facility] Left: Eye 11/09/2018 [id number] / [id number] / [id number] documented as of this encounter Visit Diagnoses Diagnosis HTN, goal below 140/90- Primary Unspecified essential hypertension documented in this encounter Additional Health Concerns [...] and were consensually agreed upon. Care Teams Broadcast Operations Director Relationship Specialty Start Date End Date Nancy Ryan DO [address] [place] [address] [place] [address] PCP - General Internal Medicine 09/11/18 documented as of this encounter
--- OUTSIDE RECORDS SUMMARY | 2024-05-15 23:06 | External Medical Summary | Summary of Care ---
Author Name Unknown Organization [facility] Address [address] [place] [address] Phone [phone] Care Team Providers Care Sock Lining Examiner Name Role Phone Nancy Ryan DO Primary Care Provider [phone] Reason for Visit * Reason Onset Date Comments Medication Question 03/12/2024 Encounter Details Date Type Department Care Team (Late st Contact Info) Description 03/12/2024 Telephone Family Medicine [address] [phone] Nancy Ryan DO [address] [place] [address] [place] [address] Medication Question Allergies No known active allergiesdocumented as of this encounter (statuses as of 03/17/2024) Medications Medication Sig Dispensed Refills Start Date End Date Status Blood Glucose Monitoring Suppl (TvoopUCH ULTRA SYSTEM) W/DEVICE KITIndications:DM type 2, goal [...] 200 Each 3 03/19/2023 Active Epoetin Gautam-epbx 93846 UNIT/ML Injection Solution (Retacrit) Inject 2 mL [...] in the morning. 30 Tablet 12/05/2023 Active Wheelwright-3 Fish Oil 1000 MG Oral Capsule (Wheelwright-3) Take 1 Capsule by mouth in the [...] (Pfizer) 09/20/2022 Pneumococcal Conjugate Vacci ne, 20-valent ([id number]) 03/14/2022 Pneumococcal Polysaccharide PPV23 (Pneumovax) 03/19/2006 Seasonal [...] encounter Miscellaneous Notes * Telephone Encounter - Britney Griffith LPN - 03/17/2024 3:24 PM EDT Pt states he was able to pickle cutter the Rx and has been taking it for about 3 days now and has been feeling better. * Telephone Encounter - Nancy Ryan DO - 03/16/2024 7:50 PM EDT Resent. Duration was to be 10 days. * Telephone Encounter - Mercedes Bojorquez OSA - 03/12/2024 10:03 AM EDT Clarification is needed for medication Vancomycin. [facility] pharmacy [address] states " The sig states for 10 and 7 days. Please specify how many days" documented in this encounter Plan of Treatment Upcoming Encounters Date Type Department Care Team (Late st Contact Info) Description 03/27/2024 10:40 AM EDT Office Visit Family [address] [place] [phone] Marry Hansen [address] [place] [address] 03/30/2024 9:00 AM EDT Laboratory Laboratory [address] [place] [phone] [place], Lab [address] [place] [address] 03/31/2024 10:15 AM EDT Immunization/Injectio n Hematology/Oncology Treatment, [address] [place] [phone] Jordana, Chair 7 Hem On[address] [place] [address] 04/21/2024 2:00 PM EDT Office Visit Cardiology [address] [place] [address] Prabhakar Henning PA-C [address] [place] [address] 04/30/2024 2:30 PM EDT Office Visit Nephrology, [address] [place] [address] ZeBeckie cruz PA-C 200 [facility] [place] [address] 06/02/2024 10:30 AM EDT Office Visit Sleep Disorders Ctr [facility] [place] [address] [place] [phone] Dorothy Toscano CRNP [address] [place] [address] 06/23/2024 9:15 AM EST Office Visit Hematology/Oncology [facility] [place] [address] [place] [phone] Fly Velazquez MD [address] [place] [address] 09/18/2024 2:00 PM EST Office Visit Nephrology [address] [place] [address] Beckie Dunbar PA-C [address] [place] [address] 10/22/2024 10:00 AM EDT Office Visit Sleep Disorders Ctr [facility] [address] [place] [phone] Dorothy Toscano CRNP [address] [place] [address] Scheduled Procedures Name Priority Associated Diagnoses Date/Ti [...] Additional history exists CKD PHOS USE SMARTSET 68314 09/02/202408/13, 09/18/2022, 08/29/2021, Additional history exists Diabetic Eye Exam 10/23/2024 10/24/2023, , 10/09/2022, Additional history exists CKD HGB USE SMARTSET 88154 03/16/202503/16, 03/16/2024, 03/02/2024, Additional history exists Colonoscopy [...] this encounter Medical Devices Implanted Type Area Pattern Ruler Device Identifier Shelf Expiration Date Model / Serial / Lot Envista Hydrophobic Acrylic Intraocular Lens Implanted:Qty: 1 on 12/25/2016 by Raul Neely MD at OR [facility] Right: Eye [employer]OM[employer] 11/09/2018 [id number] / [id number] / [id number] Envista Mx60 +10.0 D Implanted:Qty: 1 on 01/29/2017 by Raul Neely MD at OR [facility] Left: Eye 11/09/2018 [id number] / [id number] / [id number] documented as of this encounter Additional Health [...] and were consensually agreed upon. Care Teams Sock Lining Examiner Relationship Specialty Start Date End Date Nancy Ryan DO [address] [place] [address] [place] [address] PCP - General Internal Medicine 09/11/18 documented as of this encounter
--- OUTSIDE RECORDS SUMMARY | 2024-05-15 23:06 | External Medical Summary | Summary of Care ---
Author Name Unknown Organization [facility] Address [address] [place] [address] Phone [phone] Care Team Providers Care Edi Consultant Name Role Phone Nancy Ryan DO Primary Care Provider Reason for Visit * Reason Comments Medication Administration Retacrit * Episode Based Medications (Routine) - Authorized Specialty Diagnoses / Procedures Referred By Contac t Referred To Contact Diagnoses Anemia due to stage 3a chronic kidney disease (HCC) Procedures ID INJ RETACRIT NON-ESRD USE Tameka Piers CRNP [address] [facility] [place] [address] Anc Hem/Onc En [place] DEPT CLOSED - 06/25/23 [address] [place] [phone] Referral ID Status Reason Start Date Expiration Date V isits Requested Visits Authorized [id number] Authorized 12/10/2023 06/04/[phone] Encounter Details Date Type Department Care Team (Late st Contact Info) Description 03/03/2024 10:15 AM EDT Immunization/I njection Hematology/Oncology Treatment, [place] [address] [place] [phone] Jordana, Chair 1 Hem Onc [address] [place], [place] [phone] Anemia due to stage 3a chronic kidney disease (HCC)* Allergies No known active allergiesdocumented as of this encounter (statuses as of 03/19/2024) Medications Medication Sig Dispensed Refills Start Date End Date Status Blood Glucose Monitoring Suppl (Suvaco ULTRA SYSTEM) W/DEVICE KITIndications:DM type 2, goal [...] hemoglobin A1c goal of less than 7.0% ([facility]) Use once a day with basaglar. DX e11.9 100 Each 3 10/17/2021 Active Cambio+ Healthcare SystemsTouch Verio In Vitro Strip (Glucose Blood) Use to test blood sugars twice a day. Dx. 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 current use of ant icoagulant therapy [...] as of this encounter (statuses as of 03/19/2024) Immunizations Name Administration Dates Next Due COVID-19 mRNA, LNP-s, No Pre serve, 2-Dose Series (S[employer]aCamp) 06/20/2021,10/22/2020,09/26/2020 COVID-19, LNP-s, No Preserve , Jamie-sucrose, Ages 12+ (Pfizer) 03/13/2022 Covid-19, Mrna, Lnp-s, Pf, B ivalent, 30 Mcg, IM, 12 yrs and above (Pfizer) 09/20/2022 Pneumococcal Conjugate Vacci ne, 20-valent ([id number]) 03/14/2022 Pneumococcal Polysaccharide PPV23 (Pneumovax) 03/19/2006 Seasonal [...] Sign Reading Time Taken Comments Blood Pressure 146/76 03/03/2024 10:35 AM EDT Pulse - - Temperature - - Respiratory Rate - - Oxygen Saturation - - Inhaled Oxygen Concentration - - Weight - - Height - - Body Mass Index - - documented in this encounter Nursing Notes * Pat Trent LPN - 03/03/2024 10:35 AM EDT Pt arrived for Retacrit injection. Hgb 9.7. Administered in RAMILA. Pt tolerated well. BP WNL. To return in 2 weeks. Discharged in stable condition. documented in this encounter Plan of Treatment Upcoming Encounters Date Type Department Care Team (Late st Contact Info) Description 03/27/2024 10:40 AM EDT Office Visit Family Medicine [address] [place] [phone] Marry Hansen [address] [place] [address] 03/30/2024 9:00 AM EDT Laboratory Laboratory [address] [place] [phone] [facility] Lab [address] [place] [address] 03/31/2024 10:15 AM EDT Immunization/Injectio n Hematology/Oncology Treatment, [address] [phone] Jordana, Chair [address] Hem [address] [place] [address] 04/21/2024 2:00 PM EDT Office Visit Cardiology [address] [place] [address] Prabhakar Henning PA-C [address] [place] [address] 04/30/2024 2:30 PM EDT Office Visit Nephrology, [facility] 200 [facility] [place] [address] ZemaBeckie umanzor PA-C 200 [facility] [place] [address] 06/02/2024 10:30 AM EDT Office Visit Sleep Disorders Ctr [facility] [place] [address] [place] [phone] Dorothy Toscano CRNP [address] [place] [address] 06/23/2024 9:15 AM EST Office Visit Hematology/Oncology [facility] [address] [place] [phone] Fly Velazquez MD [address] [place] [address] 09/18/2024 2:00 PM EST Office Visit Nephrology [address] [place] [address] Beckie Dunbar PA-C 200 [facility] [place] [address] 10/22/2024 10:00 AM EDT Office Visit Sleep Disorders Ctr [facility] [address] [place] [phone] Dorothy Toscano CRNP [address] [place] [address] Scheduled Procedures Name Priority Associated Diagnoses Date/Ti [...] Additional history exists CKD PHOS USE SMARTSET 96056 09/02/202408/13, 09/18/2022, 08/29/2021, Additional history exists Diabetic Eye Exam 10/23/2024 10/24/2023, , 10/09/2022, Additional history exists CKD HGB USE SMARTSET 99501 03/16/202503/16, 03/16/2024, 03/02/2024, Additional history exists Colonoscopy [...] this encounter Medical Devices Implanted Type Area Civil Service Clerk Device Identifier Shelf Expiration Date Model / Serial / Lot Envista Hydrophobic Acrylic Intraocular Lens Implanted:Qty: 1 on 12/25/2016 by Raul Neely MD at OR [facility] Right: Eye [employer]OM[employer] 11/09/2018 [id number] / [id number] / [id number] Envista Mx60 +10.0 D Implanted:Qty: 1 on 01/29/2017 by Raul Neely MD at [facility] Left: Eye 11/09/2018 [id number] / [id number] / [id number] documented as of this encounter Visit Diagnoses Diagnosis Anemia due to stage 3a chronic kidney disease (HCC)- Primary documented in this encounter Administered Medications Inactive Administered Medications - up to 3 most recent administrations Medication Order MAR Action Action Date Dose Rate Site Epoetin Gautam-epbx (Retacrit) 72592 UNIT/ML inj 40,000 Units 40,000 Units, Subcutaneous, ONCE, On Sat03/03/24 at 1100, For 1 dose Given 03/03/2024 10:29 AM EDT 40,000 Units Arm Left Upper [...] and were consensually agreed upon. Care Teams Edi Consultant Relationship Specialty Start Date End Date Nancy Ryan DO [address] [place] [address] [place] [phone] PCP - General Internal Medicine 09/11/18 documented as of this encounter
--- OUTSIDE RECORDS SUMMARY | 2024-05-15 23:07 | External Medical Summary | Summary of Care ---
Author Name Unknown Organization [facility] Address [address] [place] [address] Phone [phone] Care Team Providers Care Object Oriented Developer Name Role Phone Ryan Nancy Muro Primary Care Provider [phone] Reason for Visit * Reason Onset Date Comments Precert Pending 03/12/2024 ac Encounter Details Date Type Department Care Team (Late st Contact Info) Description 03/12/2024 Telephone Hematology/Oncology Treatment, [place] [address] [place] [address] Fly Velazquez MD [address] [place] [address] Precert Pending (ac) Allergies No known active allergiesdocumented as of this encounter (statuses as of 03/13/2024) Medications Medication Sig Dispensed Refills Start Date End Date Status Blood Glucose Monitoring Suppl (Bering MediaUCH ULTRA SYSTEM) W/DEVICE KITIndications:DM type 2, goal [...] goal of less than 7.0% ([facility]) Use once a day with basaglar. DX e11.9 100 Each 3 10/17/2021 Active OneTouch Verio In Vitro Strip (Glucose Blood) Use to test blood sugars twice a day. Dx. E11.9 300 Strip 1 03/13/2023 Active OneTouch Delica Lancets 30GIndications:Typ e 2 diabetes mellitus with diabetic neuropathy, with long-term current use of insulin ([facility]) Use TWICE a day to test glucose Diagnosis = E11.9 200 Each 3 03/19/2023 Active Epoetin Gautam-epbx 18805 UNIT/ML Injection Solution (Retacrit) Inject 2 mL [...] in the morning. 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 of ant icoagulant therapy [...] as of this encounter (statuses as of 03/13/2024) Immunizations Name Administration Dates Next Due COVID-19 mRNA, LNP-s, No Pre serve, 2-Dose Series (Pfizer) 06/20/2021,10/22/2020,09/26/2020 COVID-19, LNP-s, No Preserve , Jamie-sucrose, Ages 12+ (Pfizer) 03/13/2022 Covid-19, Mrna, Lnp-s, Pf, B ivalent, 30 Mcg, IM, 12 yrs and above (Pfizer) 09/20/2022 Pneumococcal Conjugate Vacci ne, 20-valent (Laozvhu20) 03/14/2022 Pneumococcal Polysaccharide PPV23 (Pneumovax) 03/19/2006 Seasonal [...] Telephone Encounter - Maggie Cabral RN - 03/13/2024 8:41 AM EDT Referral entered. * Telephone Encounter - Kristin Caldwell OSA - 03/13/2024 7:36 AM EDT Will follow up was sent for auth * Telephone Encounter - Sachi Rosas RN - 03/12/2024 5:11 PM EDT Patient is scheduled for RETACRIT on 03/17, ordered by Dr. Velazquez. Precert referral has . Precert: please obtain new precert and enter referral. Ordering providers office: if precert referral is not back by 3pm the business day prior to treatment, appointment will need to be cancelled and rescheduled once referral is entered. Thanks! documented in this encounter Plan of Treatment Upcoming Encounters Date Type Department Care Team (Late st Contact Info) Description 03/16/2024 9:00 AM EDT Laboratory Laboratory [address] [place] [phone] [place], [address] [place] [address] 03/17/2024 10:15 AM EDT Immunization/Injectio n Hematology/Oncology Treatment, [place] [address] [place] [phone] [place], Chair 7 Hem Onc [facility] 200 [facility] [place] [address] 03/27/2024 10:40 AM EDT Office Visit Family Medicine [address] [phone] Marry Hansen [address] [place] [address] 04/21/2024 2:00 PM EDT Office Visit Cardiology [address] [place] [address] Prabhakar Henning PA-C [address] [place] [address] 04/30/2024 2:30 PM EDT Office Visit Nephrology, [facility] 200 [facility] [place] [address] ZeBeckie cruz PA-C 200 [facility] [place] [address] 06/02/2024 10:30 AM EDT Office Visit Sleep Disorders Ctr [facility] [place] [address] [place] [phone] Dorothy Toscano CRNP [address] [place] [address] 06/23/2024 9:15 AM EST Office Visit Hematology/Oncology [facility] [place] [address] [place] [phone] Fly Velazquez MD 200 [facility] [place] [address] 09/18/2024 2:00 PM EST Office Visit Nephrology [address] [place] [address] Beckie Dunbar PA-C [address] [place] [address] 10/22/2024 10:00 AM EDT Office Visit Sleep Disorders Ctr [facility] [address] [place] [phone] Dorothy Toscano CRNP [address] [place] [address] Scheduled Procedures Name Priority Associated Diagnoses Date/Ti me COLONOSCOPY FLEXIBLE PROXIMAL DIAGNOSTIC Recall History of colon polyps Health Maintenance Due Date Last Done Comments Cologuard 2002 Sigmoidoscopy 2002 Fecal Occult Blood Test 07/07/2011 07/07/20 10, 08/25/2003, 12/16/1998 Depression Screening 01/28/2021 01/29/2020 Diabetic Foot Exam 03/14/2023 03/14/2022, 0 11/30/2015, 11/09/2014, Additional history exists COVID-19 Vaccine ( season) 2023 06/28/2023, 09/20/2022, 03/13/2022, Additional history exists Albumin/Creatinine Ratio 02/20/20242 023, 03/14/2022, 05/19/2021, Additional history exists Influenza Vaccine (FLU shot) (#1) 2024 05/15/2023, 06/25/2022, 05/19/2021, Additional history exists HbA1c 06/24/2024 12/23/2023, 12/0 11/2022, 03/19/2023, Additional history exists GFR 08/04/2024 2024, 01/10, 12/23/2023, Additional history exists CKD PHOS USE SMARTSET 54688 09/02/202408/13, 09/18/2022, 08/29/2021, Additional history exists Diabetic Eye Exam 10/23/2024 10/24/2023, , 10/09/2022, Additional history exists CKD HGB USE SMARTSET 20336 03/02/202503/02, 03/02/2024, 02/17/2024, Additional history exists Colonoscopy 02/09/2027 02/09/2022, 08/14, [...] this encounter Medical Devices Implanted Type Area Fiberglass Boat Finisher Device Identifier Shelf Expiration Date Model / Serial / Lot Envista Hydrophobic Acrylic Intraocular Lens Implanted:Qty: 1 on 12/25/2016 by Raul Neely MD at OR [facility] Right: Eye [employer] 11/09/2018 [id number] / [id number] / [id number] Envista Mx60 +10.0 D Implanted:Qty: 1 on 01/29/2017 by Raul Neely MD at OR [facility] Left: Eye 11/09/2018 [id number] / [id number] documented as of this encounter Additional Health [...] and were consensually agreed upon. Care Teams Object Oriented Developer Relationship Specialty Start Date End Date Nancy Ryan DO [address] [place] [address] [place] [address] PCP - General Internal Medicine 09/11/18 documented as of this encounter
--- OUTSIDE RECORDS SUMMARY | 2024-05-15 23:07 | External Medical Summary ---
Author Name Unknown Address Unknown Organization K01:[facility] [place] - [facility] [address] [facility] [address] [facility] [address] Laboratory Report Ordering Provider Test Date Status JANE WOODRUFF 03/16/2024 09:08:48 Final Observation Date Value Abnormality Reference (Units ) Status WBC, Total 03/16/2024 09:08:48 5.52 4.00-10.80 (K/uL) Final RBC 03/16/2024 09:08:48 3.35 4.50-5.25 (M/uL) Final Hemoglobin 03/16/2024 09:08:48 10.0 Below low normal 14.0-16.8 (g/dL) Final HCT 03/16/2024 09:08:48 30.9 Below low normal 40.0-48.4 (%) Final MCV 03/16/2024 09:08:48 92.2 82.0-99.5 (fL) Final MCH 03/16/2024 09:08:48 29.9 27.0-34.0 (pg) Final MCHC 03/16/2024 09:08:48 32.4 32.0-36.0 (g/dL) Final RDW 03/16/2024 09:08:48 17.4 11.5-15.5 (%) Final Platelets 03/16/2024 09:08:48 173 140-400 (K/uL) Final MPV 03/16/2024 09:08:48 10.3 6.6-11.1 (fL) Final Nucleated erythrocytes/100 leukocytes [Ratio] in Blood by Automated count 03/16/2024 09:08:48 0 <=0 (/100 WBCs) Final Performing Location [facility] [place] - [address] [facility] [address]
--- OUTSIDE RECORDS SUMMARY | 2024-05-15 23:07 | External Medical Summary | Summary of Care ---
Author Name Unknown Organization [facility] Address [address] [place] [address] Phone [phone] Care Team Providers Care Hse Coordinator Name Role Phone Ryan Nancy Muro Primary Care Provider Reason for Visit * Reason Onset Date Comments Precert Pending 03/12/2024 ac Encounter Details Date Type Department Care Team (Late st Contact Info) Description 03/12/2024 Telephone Hematology/Oncology Treatment, [place] [address] [place] [address] Fly Velazquez MD [address] [place] [address] Precert Pending (ac) Allergies No known active allergiesdocumented as of this encounter (statuses as of 03/13/2024) Medications Medication Sig Dispensed Refills Start Date End Date Status Blood Glucose Monitoring Suppl (Music UnitedUCH ULTRA SYSTEM) W/DEVICE KITIndications:DM type 2, goal [...] 200 Each 3 03/19/2023 Active Epoetin Gautam-epbx 96335 UNIT/ML Injection Solution (Retacrit) Inject 2 mL [...] in the morning. 30 Tablet 12/05/2023 Active [place]-3 Fish Oil 1000 MG Oral Capsule ([place]ricks-3) Take 1 Capsule by mouth in the [...] Noted on CT scan at 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 [...] (Pfizer) 09/20/2022 Pneumococcal Conjugate Vacci ne, 20-valent ([id number]) 03/14/2022 Pneumococcal Polysaccharide PPV23 (Pneumovax) 03/19/2006 Seasonal [...] Description 03/16/2024 9:00 AM EDT Laboratory Laboratory [address] [place] [address] [place], [address] [place] [address] 03/17/2024 10:15 AM EDT Immunization/Injectio n Hematology/Oncology Treatment, [place] [address] [place] [phone] [place], Chair 7 Hem Onc [facility] [address] [facility] [place] [address] 03/27/2024 10:40 AM EDT Office Visit Family Medicine [address] [phone] Marry Hansen [address] [place] [address] 04/21/2024 2:00 PM EDT Office Visit Cardiology [address] [place] [address] Prabhakar Henning PA-C [address] [place] [address] 04/30/2024 2:30 PM EDT [facility] [address] [facility] [place] [address] ZeBeckie cruz PA-C [address] [facility] [place] [address] 06/02/2024 10:30 AM EDT Office Visit [facility] [place] [address] [place] [phone] Dorothy Toscano CRNP [address] [place] [address] 06/23/2024 9:15 AM EST Office Visit Hematology/Oncology [facility] [place] [address] [place] [phone] Fly Velazquez MD 200 [facility] [place] [address] 09/18/2024 2:00 PM EST Office Visit Nephrology [address] [place] [address] Beckie Dunbar PA-C [address] [place] [address] 10/22/2024 10:00 AM EDT Office Visit Sleep Disorders Ctr [facility] [address] [place] [phone] Dorothy Toscano CRNP [address] [place] [address] Scheduled Procedures Name Priority Associated Diagnoses Date/Ti [...] Additional history exists CKD PHOS USE SMARTSET 15578 09/02/202408/13, 09/18/2022, 08/29/2021, Additional history exists Diabetic Eye Exam 10/23/2024 10/24/2023, , 10/09/2022, Additional history exists CKD HGB USE SMARTSET 74006 03/02/202503/02, 03/02/2024, 02/17/2024, Additional history exists Colonoscopy [...] encounter Medical Devices Implanted Type Area Oracle Agile Plm Consultant Device Identifier Shelf Expiration Date Model / Serial / Lot Envista Hydrophobic Acrylic Intraocular Lens Implanted:Qty: 1 on 12/25/2016 by Raul Neely MD at OR [facility] Right: Eye [employer]OM[employer] 11/09/2018 [id number] / [id number] / [id number] Envista Mx60 +10.0 D Implanted:Qty: 1 on 01/29/2017 by Raul Neely MD at OR [facility] Left: Eye 11/09/2018 [id number] / [id number] / [id number] documented as of this encounter Additional Health [...] and were consensually agreed upon. Care Teams Hse Coordinator Relationship Specialty Start Date End Date Nancy Ryan DO [address] [place] [address] [place] [address] PCP - General Internal Medicine 09/11/18 documented as of this encounter
--- OUTSIDE RECORDS SUMMARY | 2024-05-15 23:07 | External Medical Summary | Summary of Care ---
Author Name Unknown Organization [facility] Address [address] [place] [address] Phone [phone] Care Team Providers Care River Tester Name Role Phone Nancy Ryan DO Primary Care Provider Reason for Visit * Reason Onset Date Comments Home Monitoring Alarm 03/02/2024 Encounter Details Date Type Department Care Team (Late st Contact Info) Description 03/02/2024 Home Monitoring Care Coordination [address] [place], [place] [phone] Diane Hernandez LPN HTN, goal below 140/90* Allergies No known active allergiesdocumented as of this encounter (statuses as of 03/02/2024) Medications Medication Sig Dispensed Refills Start Date [...] 200 Each 3 03/19/2023 Active Epoetin Gautam-epbx 84491 UNIT/ML Injection Solution (Retacrit) Inject 2 mL [...] in the morning. 30 Tablet 12/05/2023 Active [place]-3 Fish Oil 1000 MG Oral Capsule ([place]-3) Take 1 Capsule by mouth in the [...] as of this encounter (statuses as of 03/02/2024) Active Problems Problem Noted Date Diagnosed Date [...] CT scan at [facility] 05/2019 Mild nonproliferative diabet ic retinopathy of [...] as of this encounter (statuses as of 03/02/2024) Resolved Problems Problem Noted Date Diagnosed Date [...] as of this encounter (statuses as of 03/02/2024) Immunizations Name Administration Dates Next Due COVID-19 mRNA, LNP-s, No Pre serve, 2-Dose Series ([employer]) 06/20/2021,10/22/2020,09/26/2020 COVID-19, LNP-s, No Preserve , Jamie-sucrose, Ages 12+ (Pfizer) 03/13/2022 Covid-19, Mrna, Lnp-s, Pf, B ivalent, 30 Mcg, IM, 12 yrs and above (Pfizer) 09/20/2022 Pneumococcal Conjugate Vacci ne, 20-valent ([id number]) 03/14/2022 Pneumococcal Polysaccharide PPV23 (Pneumovax) 03/19/2006 Seasonal [...] Progress Notes * Jena Haas RPh - 03/02/2024 10:08 AM EDT [facility] - Hypertension Management This patient was contacted as part of the [facility] Nephrology 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 Blood Pressure Goal: 140/90 mmHg Type of Alert: Yellow Current Hypertension Medications: Torsemide 20mg daily Losartan 25mg daily (restarted 01/08/24) Carvedilol 6.25mg BID Previous antihypertensive use: n/a Experiencing symptoms related to elevated BP: No BP Readings from Last 3 Encounters: 02/25/24 159/81 02/18/24 150/70 02/04/24 149/64 Pulse Readings from Last 3 Encounters: 02/25/24 67 02/18/24 83 01/08/24 60 Recent Labs Units 02/03/24 1055 01/20/24 1040 12/23/23 1035 SODIUM - [facility] mmol/L 139 138 138 POTASSIUM - [facility] mmol/L 4.6 4.8 4.4 CHLORIDE - [facility] mmol/L 106 105 104 CO2 - [facility] mmol/L 22 20* 21* CREATININE - [facility] mg/dL 1.8* 1.9* 1.9* BUN - [facility] mg/dL 49* 65* 52* Systolic Diastolic Pulse Systolic Diastolic 146 78 Average 139 77 130 80 139 78 High 80 80 141 75 Low 72 72 131 72 148 78 Range 8 8 Count 6 6 Overall average remaining at goal. No changes at this time. Jena Haas RPh Clinical Pharmacist - Seed Service Advisor [facility] 03/02/2024, 10:08 AM * Diane Hernandez LPN - 03/02/2024 9:53 AM EDT Ronnie Wu [phone] Ronnie Wu is currently participating in the [facility] Hypertension Management Program and had areading on 02/29/24 of 154/78. Pt has alerted for an Average BP over 7 days >/= 140/90 . Parameters are currently set as follows: Average BP over 7 days >/= 140/90 Singular Systolic BP Reading </= 90 or >/=180 Singular Diastolic BP Reading </= 50 or >/=120 Patient is not reporting new symptoms or concerns. Please review the recent history of home [...] Contact Info) Description 03/03/2024 10:15 AM EDT Immunization/Injec tion Hematology/Oncology Treatment, [address] [place] [phone] Park, Chair 1 Hem Onc [address] [address] 03/27/2024 10:40 AM EDT Office Visit Family Medicine [address] [place] [phone] Marry Hansen CRNP [address] [place] [address] [place] [address] 04/21/2024 2:00 PM EDT Office Visit Cardiology [address] [place] [address] Prabhakar Henning PA-C [address] [place] [address] 04/30/2024 2:30 PM EDT Office Visit Nephrology, [place] [address] [place] [address] Beckie Dunbar PA-C [address] [place] [address] 06/02/2024 10:30 AM EDT Office Visit Sleep Disorders Ctr [facility] [place] [address] [place] [phone] Dorothy Toscano CRNP [address] [place] [address] 06/23/2024 9:15 AM EST Office Visit Hematology/Oncology [facility] [place] [address] [place] [phone] Fly Velazquez MD [address] [place] [address] 09/18/2024 2:00 PM EST Office Visit Nephrology [address] [place] [address] Beckie Dunbar PA-C [address] [place] [address] 10/22/2024 10:00 AM EDT Office Visit Sleep Disorders Ctr [facility], [place] [address] [place] [phone] Dorothy Toscano CRNP [address] [place] [address] Scheduled Procedures Name Priority Associated Diagnoses Date/Ti [...] Additional history exists CKD PHOS USE SMARTSET 97498 09/02/202408/13, 09/18/2022, 08/29/2021, Additional history exists Diabetic Eye Exam 10/23/2024 10/24/2023, , 10/09/2022, Additional history exists CKD HGB USE SMARTSET 69889 02/16/202502/16, 02/17/2024, 2024, Additional history exists Colonoscopy 02/09/2027 02/09/2022, 08/14, [...] this encounter Medical Devices Implanted Type Area Certified Wellness Program Manager Device Identifier Shelf Expiration Date Model / Serial / Lot Envista Hydrophobic Acrylic Intraocular Lens Implanted:Qty: 1 on 12/25/2016 by Raul Neely MD at OR [facility] Right: Eye [employer] 11/09/2018 [id number] / [id number] / [id number] Envista Mx60 +10.0 D Implanted:Qty: 1 on 01/29/2017 by Raul Neely MD at OR [facility] Left: Eye 11/09/2018 [id number] / [id number] / [id number] documented as of this encounter Visit Diagnoses [...] and were consensually agreed upon. Care Teams River Tester Relationship Specialty Start Date End Date Nancy Ryan DO [address] [place] [address] [place] [address] PCP - General Internal Medicine 09/11/18 documented as of this encounter
--- OUTSIDE RECORDS SUMMARY | 2024-05-15 23:07 | External Medical Summary | Summary of Care ---
Author Name Unknown Organization [facility] Address [address] [place] [address] Phone [phone] Care Team Providers Care Local Tanker Truck Driver Name Role Phone Ryan Nancy Muro Primary Care Provider Reason for Visit * Reason Onset Date Comments Precert Pending 03/12/2024 ac Encounter Details Date Type Department Care Team (Late st Contact Info) Description 03/12/2024 Telephone Hematology/Oncology Treatment, [place] [address] [place] [address] Fly Velazquez MD [address] [place] [address] Precert Pending (ac) Allergies No known active allergiesdocumented as of this encounter (statuses as of 03/13/2024) Medications Medication Sig Dispensed Refills Start Date End Date Status Blood Glucose Monitoring Suppl (BookBottlesUCH ULTRA SYSTEM) W/DEVICE KITIndications:DM type 2, goal [...] 200 Each 3 03/19/2023 Active Epoetin Gautam-epbx 93986 UNIT/ML Injection Solution (Retacrit) Inject 2 mL [...] in the morning. 30 Tablet 12/05/2023 Active [place]-3 Fish Oil 1000 MG Oral Capsule ([place]-3) Take 1 Capsule by mouth in the [...] Taxonomy 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 of inactive term termite treater helper current use of ant icoagulant therapy [...] (Pfizer) 09/20/2022 Pneumococcal Conjugate Vacci ne, 20-valent ([id number]) 03/14/2022 Pneumococcal Polysaccharide PPV23 (Pneumovax) 03/19/2006 Seasonal [...] Referral entered. * Telephone Encounter - Kristin Calwdell OSA - 03/13/2024 7:36 AM EDT Will [...] Description 03/16/2024 9:00 AM EDT Laboratory Laboratory [address] [place] [phone] [place], [address] [place] [address] 03/17/2024 10:15 AM EDT Immunization/Injectio n Hematology/Oncology Treatment, [place] [address] [place] [phone] Park, Chair 7 Hem Onc [facility] 200 [facility] [place] [address] 03/27/2024 10:40 AM EDT Office Visit Family Medicine [address] [phone] Marry Hansen [address] [place] [address] 04/21/2024 2:00 PM EDT Office Visit Cardiology [address] [place] [address] Prabhakar Henning PA-C [address] [place] [address] 04/30/2024 2:30 PM EDT Office Visit Nephrology, [facility] 200 [facility] [place] [address] ZeBeckie cruz PA-C 200 [facility] [place] [address] 06/02/2024 10:30 AM EDT Office Visit Sleep Disorders Ctr [facility] [place] [address] [place] [phone] Dorothy Toscano CRNP [address] [place] [address] 06/23/2024 9:15 AM EST Office Visit Hematology/Oncology [facility] [place] [address] [place] [phone] Fly Velazquez MD 200 [facility] [place] [address] 09/18/2024 2:00 PM EST Office Visit Nephrology [address] [place] [address] Beckie Dunbar PA-C [address] [place] [address] 10/22/2024 10:00 AM EDT Office Visit Sleep Disorders Ctr [facility] [address] [place] [phone] Dorothy Toscano CRNP [address] [place] [address] Scheduled Procedures Name Priority Associated Diagnoses Date/Ti [...] Additional history exists CKD PHOS USE SMARTSET 54917 09/02/202408/13, 09/18/2022, 08/29/2021, Additional history exists Diabetic Eye Exam 10/23/2024 10/24/2023, , 10/09/2022, Additional history exists CKD HGB USE SMARTSET 95247 03/02/202503/02, 03/02/2024, 02/17/2024, Additional history exists Colonoscopy [...] this encounter Medical Devices Implanted Type Area Net Finisher Device Identifier Shelf Expiration Date Model / Serial / Lot Envista Hydrophobic Acrylic Intraocular Lens Implanted:Qty: 1 on 12/25/2016 by Raul Neely MD at OR [facility] Right: Eye [employer] 11/09/2018 [id number] / [id number] / [id number] Envista Mx60 +10.0 D Implanted:Qty: 1 on 01/29/2017 by Raul Neely MD at OR [facility] Left: Eye 11/09/2018 [id number] / [id number] / [id number] documented as of this encounter Additional Health [...] and were consensually agreed upon. Care Teams Local Tanker Truck Driver Relationship Specialty Start Date End Date Nancy Ryan DO [address] [place] [address] [place] [address] PCP - General Internal Medicine 09/11/18 documented as of this encounter
--- OUTSIDE RECORDS SUMMARY | 2024-05-15 23:07 | External Medical Summary | Summary of Care ---
Author Name Unknown Organization [facility] Address [address] [place] [address] Phone [phone] Care Team Providers Care Wedding Planning Internship Name Role Phone Nancy Ryan DO Primary Care Provider [phone] Reason for Visit * Reason Comments Outpatient Testing Encounter Details Date Type Department Care Team (Late st Contact Info) Description 03/10/2024 11:10 AM EDT Laboratory Laboratory [address] [place] [phone] , Specimen Drop Off [address] [place] [address] Diarrhea of presumed infectious origin Allergies No known active allergiesdocumented as of this encounter (statuses as of 03/10/2024) Medications Medication Sig Dispensed Refills Start Date End Date Status Blood Glucose Monitoring Suppl (Slate PharmaceuticalsUCH ULTRA SYSTEM) W/DEVICE KITIndications:DM type 2, goal [...] neuropathy, with long-term current use of insulin ([facility]) Use TWICE a day to test glucose Diagnosis = E11.9 200 Each 3 03/19/2023 Active Epoetin Gautam-epbx 26317 UNIT/ML Injection Solution (Retacrit) Inject 2 mL [...] in the morning. 30 Tablet 12/05/2023 Active [place]-3 Fish Oil 1000 MG Oral Capsule ([place]-3) Take 1 Capsule by mouth in the [...] as of this encounter (statuses as of 03/10/2024) Active Problems Problem Noted Date Diagnosed Date [...] as of this encounter (statuses as of 03/10/2024) Resolved Problems Problem Noted Date Diagnosed Date [...] as of this encounter (statuses as of 03/10/2024) Immunizations Name Administration Dates Next Due COVID-19 mRNA, LNP-s, No Pre serve, 2-Dose Series (Pfizer) 06/20/2021,10/22/2020,09/26/2020 COVID-19, LNP-s, No Preserve , Jamie-sucrose, Ages 12+ (Pfizer) 03/13/2022 Covid-19, Mrna, Lnp-s, Pf, B ivalent, 30 Mcg, IM, 12 yrs and above (Pfizer) 09/20/2022 Pneumococcal Conjugate Vacci ne, 20-valent ([id number]) 03/14/2022 Pneumococcal Polysaccharide PPV23 (Pneumovax) 03/19/2006 Seasonal [...] Description 03/16/2024 9:00 AM EDT Laboratory Laboratory [address] [place] [phone] [place] [address] [place] [address] 03/17/2024 10:15 AM EDT Immunization/Injectio n Hematology/Oncology Treatment, [address] [phone] Jord[place], Chair 7 Hem Onc [address] [address] 03/27/2024 10:40 AM EDT Office Visit Family Medicine [address] [place] [phone] Marry Hansen [address] [place] [address] 04/21/2024 2:00 PM EDT Office Visit Cardiology [address] [place] [address] Prabhakar Henning PA-C [address] [place] [address] 04/30/2024 2:30 PM EDT Office Visit Nephrology, [facility] [address] [place] [address] ZeBeckie cruz PA-C [address] [place] [address] 06/02/2024 10:30 AM EDT Office Visit [facility] [place] [facility] [place] [phone] Dorothy Toscano CRNP [address] [place] [address] 06/23/2024 9:15 AM EST Office Visit Hematology/Oncology [facility] [place] [address] [place] [phone] Fly Velazquez MD [address] [place] [address] 09/18/2024 2:00 PM EST Office Visit Nephrology [address] [place] [address] Beckie Dunbar PA-C [address] [place] [address] 10/22/2024 10:00 AM EDT Office Visit Sleep Disorders Ctr [facility] [place] [address] [place] [phone] Dorothy Toscano CRNP 132 [facility] [place] [address] Pending Results Name Type Priority Associated Diagnoses Date /Time CLOSTRIDIUM DIFFICILE, PCR Lab Routine Diarrhea of presumed infectious origin 03/10/2024 11:06 AM EDT Scheduled Procedures Name Priority Associated [...] Additional history exists CKD PHOS USE SMARTSET 22759 09/02/202408/13, 09/18/2022, 08/29/2021, Additional history exists Diabetic Eye Exam 10/23/2024 10/24/2023, , 10/09/2022, Additional history exists CKD HGB USE SMARTSET 93398 03/02/202503/02, 03/02/2024, 02/17/2024, Additional history exists Colonoscopy 02/09/2027 02/09/2022, 08/14, 12/07/2008 Colorectal Cancer Screening 02/09/2027 Lipid Panel 02/11/2028 02/10/2023, 08/0 10/2021, 05/19/2021, Additional history exists DXA Scan 12/14/2028 12/14/2021 DTaP,Tdap,and Td Vaccines (3 - Td or Tdap) 08/30/2030 08/30/2020, 05/02/2010, 08/12/2004 Hepatitis C Screening Completed 08/13/2018 Zoster Vaccines Completed 01/29/2020, 07/22/2019 RETIRED - [...] encounter Medical Devices Implanted Type Area Senior Corporate Recruiter Device Identifier Shelf Expiration Date Model / Serial / Lot Envista Hydrophobic Acrylic Intraocular Lens Implanted:Qty: 1 on 12/25/2016 by Raul Neely MD at OR [facility] Right: Eye [employer] 11/09/2018 [id number] / [id number] / [id number] Envista Mx60 +10.0 D Implanted:Qty: 1 on 01/29/2017 by Raul Neely MD at OR [facility] Left: Eye 11/09/2018 [id number] / [id number] / [id number] documented as of this encounter Visit Diagnoses Diagnosis Diarrhea of presumed infectious origin documented in this encounter Additional Health Concerns Infection Onset Date Last Indicated Resolved Time C. difficile Rule-Out 03/10/2024 03/10/2024 documented as of this encounter [...] and were consensually agreed upon. Care Teams Wedding Planning Internship Relationship Specialty Start Date End Date Nancy Ryan DO [address] [place] [address] [place] [phone] PCP - General Internal Medicine 09/11/18 documented as of this encounter
--- OUTSIDE RECORDS SUMMARY | 2024-05-15 23:07 | External Medical Summary ---
Author Name Unknown Address Unknown Organization K01:LABORATORY [facility] [place] - [facility] [address] [facility] [address] [facility] [address] Laboratory Report Ordering Provider Test Date Status ALEXANDRIA MASON 03/10/2024 11:06:15 Final Observation Date Value Abnormality Reference (Units) Status Source 03/10/2024 11:06:15 Semi-liquid Final Clostridioides difficile toxin and BI-NAP1-027 strain DNA panel - Stool by EVELIA with probe detection 03/10/2024 11:06:15 Positive for C. difficile toxin B gene DNA by PCR (Amplified Probe). Presumptive negative for C. difficile 027-NAP1-B1 strain by PCR (Amplified Probe). Abnormal Negative Final Performing Location LABORATORY [facility] [place] - [address] [facility] [address] [facility] [address]
--- OUTSIDE RECORDS SUMMARY | 2024-05-15 23:07 | External Medical Summary | Summary of Care ---
Author Name Unknown Organization [facility] Address [address] [place] [address] Phone [phone] Care Team Providers Care Employment Law Specialist Name Role Phone Nancy Ryan DO Primary Care Provider [phone] Reason for Visit * Reason Comments Medication Administration Retacrit * Episode Based Medications (Routine) - Pending Review Specialty Diagnoses / Procedures Referred By Contac t Referred To Contact Diagnoses Anemia due to stage 3a chronic kidney disease (HCC) Procedures [place] INJ RETACRIT NON-ESRD USE Tameka Pires CRNP [address] [place] [address] Anc Hem/Onc En [place] DEPT CLOSED - 06/25/23 [address] [place] [phone] Referral ID Status Reason Start Date Expiration Date V isits Requested Visits Authorized [id number] Pending Review 12/10/2023 03/03/[phone] Encounter Details Date Type Department Care Team (Late st Contact Info) Description 03/03/2024 10:15 AM EDT Immunization/I njection Hematology/Oncology Treatment, [place] [address] [place] [phone] Jordana, Chair 1 Hem Onc [address] 200 [facility] [place] [address] Anemia due to stage 3a chronic kidney disease (HCC)* Allergies No known active allergiesdocumented as of this encounter (statuses as of 03/03/2024) Medications Medication Sig Dispensed Refills Start Date End Date Status Blood Glucose Monitoring Suppl (Gradible (formerly gradsavers) ULTRA SYSTEM) W/DEVICE KITIndications:DM type 2, goal A1c below 7 Use as directed 4 times a day. Use up to four times a day as directed. Diagnosis = E11.9 1 Kit 0 06/29/2015 Active BD Pen Needle Wilda U/F 32G X 4 MM (Insulin Pen Needle)Indications :Type 2 diabetes mellitus with diabetic neuropathy, with long-term current use of insulin ([facility]),Type 2 diabetes mellitus with hemoglobin A1c goal of less than 7.0% ([facility]) Use once a day with basaglar. DX e11.9 100 Each 3 10/17/2021 Active Steven Winston LLCuch Verio In Vitro Strip (Glucose Blood) Use to test blood sugars twice a day. Dx. E11.9 300 Strip 1 03/13/2023 Active Stratio TechnologyTouch Delica Lancets 30GIndications:Typ e 2 diabetes mellitus with diabetic neuropathy, with long-term current use of insulin ([facility]) Use TWICE a day to test glucose Diagnosis = E11.9 200 Each 3 03/19/2023 Active Epoetin Gautam-epbx 18399 UNIT/ML Injection Solution (Retacrit) Inject 2 mL [...] in the morning. 30 Tablet 12/05/2023 Active Chappell-3 Fish Oil 1000 MG Oral Capsule (Chappell-3) Take 1 Capsule by mouth in the [...] as of this encounter (statuses as of 03/03/2024) Active Problems Problem Noted Date Diagnosed Date [...] as of this encounter (statuses as of 03/03/2024) Resolved Problems Problem Noted Date Diagnosed Date [...] as of this encounter (statuses as of 03/03/2024) Immunizations Name Administration Dates Next Due COVID-19 mRNA, LNP-s, No Pre serve, 2-Dose Series (QuanDx) 06/20/2021,10/22/2020,09/26/2020 COVID-19, LNP-s, No Preserve , Jamie-sucrose, Ages 12+ (Pfizer) 03/13/2022 Covid-19, Mrna, Lnp-s, Pf, B ivalent, 30 Mcg, IM, 12 yrs and above (Pfizer) 09/20/2022 Pneumococcal Conjugate Vacci ne, 20-valent ([id number]) 03/14/2022 Pneumococcal Polysaccharide PPV23 (Pneumovax) 03/19/2006 Seasonal [...] Description 03/16/2024 9:00 AM EDT Laboratory Laboratory [address] [place] [phone] [place] [address] 03/17/2024 10:15 AM EDT Immunization/Injectio n Hematology/[address], [address] [phone] Jordana, Chair 7 Hem On[address] [place] [address] 03/27/2024 10:40 AM EDT Office Visit Family Medicine [address] [place] [phone] [address] [place] [address] 04/21/2024 2:00 PM EDT Office Visit Cardiology [address] [place] [address] Prabhakar Henning PA-C [address] [place] [address] 04/30/2024 2:30 PM EDT Office Visit Nephrology, [address] [place] [address] ZemaBeckie umanzor PA-C 200 [facility] [place] [address] 06/02/2024 10:30 AM EDT Office Visit Sleep Disorders Ctr Manny Browne, [place] [address] [place] [phone] Dorothy Toscano CRNP [address] [place] [address] 06/23/2024 9:15 AM EST Office Visit Hematology/Oncology [facility] Jordana [place] [address] [place] [phone] Fly Velazquez MD [address] [place] [address] 09/18/2024 2:00 PM EST Office Visit Nephrology [address] [place] [address] ZeBeckie cruz PA-C [address] [place] [address] 10/22/2024 10:00 AM EDT Office Visit Sleep Disorders Ctr [facility] [address] [place] [phone] Dorothy Toscano CRNP [address] [place] [address] Scheduled Procedures Name Priority Associated Diagnoses Date/Ti [...] Additional history exists CKD PHOS USE SMARTSET 14925 09/02/202408/13, 09/18/2022, 08/29/2021, Additional history exists Diabetic Eye Exam 10/23/2024 10/24/2023, , 10/09/2022, Additional history exists CKD HGB USE SMARTSET 96280 03/02/202503/02, 03/02/2024, 02/17/2024, Additional history exists Colonoscopy [...] this encounter Medical Devices Implanted Type Area Spanish Tutor Device Identifier Shelf Expiration Date Model / Serial / Lot Envista Hydrophobic Acrylic Intraocular Lens Implanted:Qty: 1 on 12/25/2016 by Raul Neely MD at OR [facility] Right: Eye [employer]OM[employer] 11/09/2018 [id number] / [id number] / [id number] Envista Mx60 +10.0 D Implanted:Qty: 1 on 01/29/2017 by Raul Neely MD at [facility] Left: Eye 11/09/2018 [id number] / [id number] / [id number] documented as of this encounter Visit Diagnoses Diagnosis Anemia due to stage 3a chronic kidney disease (HCC)- Primary documented in this encounter Administered Medications Inactive Administered Medications - up to 3 most recent administrations Medication Order MAR Action Action Date Dose Rate Site Epoetin Gautam-epbx (Retacrit) 29481 UNIT/ML inj 40,000 Units 40,000 Units, Subcutaneous, [...] and were consensually agreed upon. Care Teams Employment Law Specialist Relationship Specialty Start Date End Date Nancy Ryan DO [address] [place] [address] [place] [phone] PCP - General Internal Medicine 09/11/18 documented as of this encounter
--- OUTSIDE RECORDS SUMMARY | 2024-05-15 23:07 | External Medical Summary | Summary of Care ---
Author Name Unknown Organization [facility] Address [address] [place] [address] Phone [phone] Care Team Providers Care Courtesy Booth Cashier Name Role Phone Nancy Ryan DO Primary Care Provider Reason for Visit * Reason Comments Outpatient Testing Encounter Details Date Type Department Care Team (Late st Contact Info) Description 03/16/2024 9:00 AM EDT Laboratory Laboratory [address] [place] [phone] [facility] Lab [address] [place] [address] Anemia due to stage 3a chronic kidney disease (HCC) Allergies No known active allergiesdocumented as of this encounter (statuses as of 03/16/2024) Medications Medication Sig Dispensed Refills Start Date End Date Status Blood Glucose Monitoring Suppl (1d4 PtyUCH ULTRA SYSTEM) W/DEVICE KITIndications:DM type 2, goal [...] 200 Each 3 03/19/2023 Active Epoetin Gautam-epbx 41352 UNIT/ML Injection Solution (Retacrit) Inject 2 mL [...] in the morning. 30 Tablet 12/05/2023 Active Hebron-3 Fish Oil 1000 MG Oral Capsule (Hebron-3) Take 1 Capsule by mouth in the [...] use of insulin ([facility]) Inject 2 mg under the skin once a week. DX E11.9 Diabetes Mellitus 3 mL 5 01/27/2024 Active Vancomycin HCl 125 MG Oral Capsule (Vancocin) Take 1 Capsule by mouth every 6 hours. 40 Capsule 03/12/2024 Active Hospital, Clinic, or Other Facility Administered [...] (Pfizer) 09/20/2022 Pneumococcal Conjugate Vacci ne, 20-valent ([id number]) 03/14/2022 Pneumococcal Polysaccharide PPV23 (Pneumovax) 03/19/2006 Seasonal [...] Contact Info) Description 03/17/2024 10:15 AM EDT Immunization/Injec tion Hematology/Oncology Treatment, [place] 200 [facility] [place] [phone] Jordana, Chair 7 Hem On[address] [place] [address] 03/27/2024 10:40 AM EDT Office Visit Family Medicine [address] [place] [phone] Marry [address] [place] [address] 04/21/2024 2:00 PM EDT Office Visit Cardiology [address] [place] [address] Prabhakar Henning PA-C [address] [place] [address] 04/30/2024 2:30 PM EDT Office Visit Nephrology, [facility] [address] [facility] [place] [address] Beckie Dunbar PA-C [address] [place] [address] 06/02/2024 10:30 AM EDT Office Visit Sleep Disorders Ctr Manny Browne [place] [facility] [place] [phone] Dorothy Toscano CRNP 132 [facility] [place] [address] 06/23/2024 9:15 AM EST Office Visit Hematology/Oncology [facility] [place] [address] [place] [phone] Fly Velazquez MD [address] [place] [address] 09/18/2024 2:00 PM EST Office Visit Nephrology [address] [place] [address] ZemaitisBeckie PA-C [address] [place] [address] 10/22/2024 10:00 AM EDT Office Visit Sleep Disorders Ctr Manny Browne [place] [address] [place] [phone] Dorothy Toscano CRNP [address] [place] [address] Pending Results Name Type Priority Associated Diagnoses Date /Time CBC WITH WBC DIFFERENTIAL Lab STAT Anemia due to stage 3a chronic kidney disease (HCC) 03/16/2024 9:08 AM EDT CBC Lab STAT Anemia due to stage 3a chronic kidney disease (HCC) 03/16/2024 9:08 AM EDT DIFFERENTIAL, AUTOMATED Lab STAT Anemia due to stage 3a chronic kidney disease (HCC) 03/16/2024 9:08 AM EDT Scheduled Procedures Name Priority Associated Diagnoses Date/Ti me COLONOSCOPY FLEXIBLE PROXIMAL DIAGNOSTIC Recall History of colon polyps Health Maintenance Due Date Last Done Comments Cologuard 2002 Sigmoidoscopy 2002 Fecal Occult Blood Test 07/07/2011 11/26/20 10, 08/25/2003, 12/16/1998 Depression Screening 01/28/2021 01/29/2020 [...] Additional history exists CKD PHOS USE SMARTSET 01086 09/02/202408/13, 09/18/2022, 08/29/2021, Additional history exists Diabetic Eye Exam 10/23/2024 10/24/2023, , 10/09/2022, Additional history exists CKD HGB USE SMARTSET 06417 03/02/202503/02, 03/02/2024, 02/17/2024, Additional history exists Colonoscopy [...] this encounter Medical Devices Implanted Type Area Form Presser Device Identifier Shelf Expiration Date Model / Serial / Lot Envista Hydrophobic Acrylic Intraocular Lens Implanted:Qty: 1 on 12/25/2016 by Raul Neely MD at OR [facility] Right: Eye [employer] LOMB 11/09/2018 [id number] / [id number] / [id number] Envista Mx60 +10.0 D Implanted:Qty: 1 on 01/29/2017 by Raul Neely MD at OR [facility] Left: Eye 11/09/2018 [id number] / [id number] / [id number] documented as of this encounter Visit Diagnoses [...] and were consensually agreed upon. Care Teams Courtesy Booth Cashier Relationship Specialty Start Date End Date Nancy Ryan DO [address] [place] [address] [place] [phone] PCP - General Internal Medicine 09/11/18 documented as of this encounter
--- OUTSIDE RECORDS SUMMARY | 2024-05-15 23:07 | External Medical Summary ---
Author Name Unknown Address Unknown Organization [id number]:LABORATORY [facility] [place] - [address] [facility] [address] Laboratory Report Ordering Provider Test Date Status JANE WOODRUFF 03/16/2024 09:08:48 Final Observation Date Value Abnormality Reference (Units ) Status SYNC LEUKOCYTES IN BLOOD BY AUTOMATED COUNT 03/16/2024 09:08:48 5.52 4.00-10.80 (K/uL) Final Segs 03/16/2024 09:08:48 59.1 40.0-75.0 (%) Final Lymphs % 03/16/2024 09:08:48 26.6 18.0-42.0 (%) Final Monos 03/16/2024 09:08:48 8.0 1.0-11.0 (%) Final Eosinophils 03/16/2024 09:08:48 5.4 0.0-6.0 (%) Final Basos 03/16/2024 09:08:48 0.5 0.0-2.0 (%) Final Immature Granulocyte, Percent 03/16/2024 09:08:48 0.4 0.0-2.0 (%) Final Absolute Segs 03/16/2024 09:08:48 3.26 1.80-7.70 (K/uL) Final Lymphs, absolute 03/16/2024 09:08:48 1.47 1.00-4.80 (K/ul) Final Monos, Abs 03/16/2024 09:08:48 0.44 0.00-1.10 (K/uL) Final Eos, Abs 03/16/2024 09:08:48 0.30 0.00-0.70 (K/uL) Final Basos, Abs 03/16/2024 09:08:48 0.03 0.00-0.20 (K/uL) Final Immature Granulocytes, Number 03/16/2024 09:08:48 0.02 0.00-0.20 (K/uL) Final Performing Location LABORATORY [facility] [place] - [address] [facility] [address]
--- OUTSIDE RECORDS SUMMARY | 2024-05-15 23:08 | External Medical Summary | Summary of Care ---
Author Name Unknown Organization [facility] Address [address] [place] [address] Phone [phone] Care Team Providers Care Bankruptcy Assistant Name Role Phone Nancy Ryan DO Primary Care Provider [phone] Reason for Visit * Reason Comments Outpatient Testing Encounter Details Date Type Department Care Team (Late st Contact Info) Description 02/17/2024 10:30 AM EDT Laboratory Laboratory [address] [place] [phone] [facility] Lab [address] [place] [address] Anemia due to stage 3a chronic kidney disease (HCC) Allergies No known active allergiesdocumented as of this encounter (statuses as of 02/17/2024) Medications Medication Sig Dispensed Refills Start Date End Date Status Blood Glucose Monitoring Suppl ([place] Globaleg[employer] E-CommerceUCH ULTRA SYSTEM) W/DEVICE KITIndications:DM type 2, goal [...] 200 Each 3 03/19/2023 Active Epoetin Gautam-epbx 39173 UNIT/ML Injection Solution (Retacrit) Inject 2 mL [...] in the morning. 30 Tablet 12/05/2023 Active Plaistow-3 Fish Oil 1000 MG Oral Capsule (Plaistow-3) Take 1 Capsule by mouth in the [...] as of this encounter (statuses as of 02/17/2024) Active Problems Problem Noted Date Diagnosed Date Full code status 11/22/2023 Body mass index [...] Non-obstructive. Noted on CT scan at [facility] 05/2019 Mild nonproliferative diabet ic [...] as of this encounter (statuses as of 02/17/2024) Resolved Problems Problem Noted Date Diagnosed Date [...] Obesity Taxonomy 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 of inactive term MCC current use of ant icoagulant therapy 03/16/2005 [...] as of this encounter (statuses as of 02/17/2024) Immunizations Name Administration Dates Next Due COVID-19 mRNA, LNP-s, No Pre serve, 2-Dose Series (Com[employer]se) 06/20/2021,10/22/2020,09/26/2020 COVID-19, LNP-s, No Preserve , Jamie-sucrose, Ages 12+ (Comr[employer]se) 03/13/2022 Covid-19, Mrna, Lnp-s, Pf, B ivalent, 30 Mcg, IM, 12 yrs and above ([employer]) 09/20/2022 Pneumococcal Conjugate Vacci ne, 20-valent ([id number]) 03/14/2022 Pneumococcal Polysaccharide PPV23 (Pneumovax) 03/19/2006 Seasonal [...] Contact Info) Description 02/18/2024 10:15 AM EDT Immunization/Inje ction [facility]ematology[facility] [place] [facility] [phone] Nurse, Med 200 [facility] [place] [address] 02/21/2024 2:00 PM EDT Office Visit Ophthalmology, [facility] [address] [place] [address] Mika Diaz DO [address] [place] [address] 02/25/2024 10:45 AM EDT Office Visit Hematology/Oncology [facility] 200 [facility] [place] [phone] Fly Velazquez MD 200 [facility] [place] [address] 03/27/2024 10:40 AM EDT Office Visit Family Medicine [address] [place] [phone] Marry Hansen [address] [place] [address] 04/21/2024 2:00 PM EDT Office Visit Cardiology [address] [place] [address] Prabhakar Henning PA-C [address] [place] [address] 04/30/2024 2:30 PM EDT Office Visit NephrologyEn [address] [place] [address] Beckie Dunbar PA-C [address] [place] [address] 06/02/2024 10:30 AM EDT Office Visit Sleep Disorders Ctr Manny Browne [place] [address] [place] [phone] Dorothy Toscano CRNP [address] [place] [address] 09/18/2024 2:00 PM EST Office Visit Nephrology [address] [place] [address] Beckie Dunbar PA-C [address] [place] [address] 10/22/2024 10:00 AM EDT Office Visit [facility] Ctr [facility] [address] [place] [phone] Dorothy Toscano CRNP [address] [place] [address] Pending Results Name Type Priority Associated Diagnoses Date /Time CBC WITH WBC DIFFERENTIAL Lab STAT Anemia due to stage 3a chronic kidney disease (HCC) 02/17/2024 10:22 AM EDT CBC Lab STAT Anemia due to stage 3a chronic kidney disease (HCC) 02/17/2024 10:22 AM EDT DIFFERENTIAL, AUTOMATED Lab STAT Anemia due to stage 3a chronic kidney disease (HCC) 02/17/2024 10:22 AM EDT Scheduled Procedures Name Priority Associated [...] 05/19/2021, Additional history exists HbA1c 06/24/2024 12/23/2023, 120 11/2022, 03/19/2023, Additional history exists GFR 08/04/2024 2024, 06, 12/23/2023, Additional history exists CKD PHOS USE SMARTSET 85753 09/02/202408/13, 09/18/2022, 08/29/2021, Additional history exists Diabetic Eye Exam 10/23/2024 10/24/2023, , 10/09/2022, Additional history exists CKD HGB USE SMARTSET 65579 02/02/202502/02, 2024, 01/20/2024, Additional history exists Colonoscopy 02/09/2027 02/09/2022, 08/14, [...] this encounter Medical Devices Implanted Type Area Strategic Client Executive Device Identifier Shelf Expiration Date Model / Serial / Lot Envista Hydrophobic Acrylic Intraocular Lens Implanted:Qty: 1 on 12/25/2016 by Raul Neely MD at OR [facility] Right: Eye [employer] 11/09/2018 [id number] / [id number] / [id number] Envista Mx60 +10.0 D Implanted:Qty: 1 on 01/29/2017 by Raul Neely MD at OR [facility] Left: Eye 11/09/2018 [id number] / [id number] documented as of this encounter Visit Diagnoses [...] and were consensually agreed upon. Care Teams Bankruptcy Assistant Relationship Specialty Start Date End Date Nancy Ryan DO [address] [place] [address] [place] [phone] PCP - General Internal Medicine 09/11/18 documented as of this encounter
--- OUTSIDE RECORDS SUMMARY | 2024-05-15 23:08 | External Medical Summary ---
Author Name Unknown Address Unknown Organization K01:LABORATORY [facility] [place] - [address] [facility] [address] Laboratory Report Ordering Provider Test Date Status JANE WOODRUFF 03/02/2024 09:21:59 Final Observation Date Value Abnormality Reference (Units ) Status SYNC LEUKOCYTES IN BLOOD BY AUTOMATED COUNT 03/02/2024 09:21:59 5.87 4.00-10.80 (K/uL) Final Segs 03/02/2024 09:21:59 67.1 40.0-75.0 (%) Final Lymphs % 03/02/2024 09:21:59 19.9 18.0-42.0 (%) Final Monos 03/02/2024 09:21:59 7.8 1.0-11.0 (%) Final Eosinophils 03/02/2024 09:21:59 4.4 0.0-6.0 (%) Final Basos 03/02/2024 09:21:59 0.5 0.0-2.0 (%) Final Immature Granulocyte, Percent 03/02/2024 09:21:59 0.3 0.0-2.0 (%) Final Absolute Segs 03/02/2024 09:21:59 3.93 1.80-7.70 (K/uL) Final Lymphs, absolute 03/02/2024 09:21:59 1.17 1.00-4.80 (K/ul) Final Monos, Abs 03/02/2024 09:21:59 0.46 0.00-1.10 (K/uL) Final Eos, Abs 03/02/2024 09:21:59 0.26 0.00-0.70 (K/uL) Final Basos, Abs 03/02/2024 09:21:59 0.03 0.00-0.20 (K/uL) Final Immature Granulocytes, Number 03/02/2024 09:21:59 0.02 0.00-0.20 (K/uL) Final Performing Location LABORATORY [facility] [place] - [address] [facility] [address]
--- OUTSIDE RECORDS SUMMARY | 2024-05-15 23:08 | External Medical Summary | Summary of Care ---
Author Name Unknown Organization [facility] Address [address] [place] [address] Phone [phone] Care Team Providers Care Fitness Club Manager Name Role Phone Shelby Nancy Muro Primary Care Provider Reason for Visit * Reason Comments Follow Up Encounter Details Date Type Department Care Team (Latest Contact Info) Description 02/25/2024 10:45 AM EDT Office Visit Hematology/Oncology [facility] [address] [facility] [place] [address] Fly Velazquez MD [address] [facility] [place] [address] Anemia due to stage 3a chronic kidney disease (HCC)*; Venous insufficiency Allergies No known active allergiesdocumented as of this encounter (statuses as of 02/25/2024) Medications Medication Sig Dispensed Refills Start Date End Date Status Blood Glucose Monitoring Suppl (Long TailTOUCH ULTRA SYSTEM) W/DEVICE KITIndications:DM type 2, goal A1c below 7 Use as directed 4 times a day. Use up to four times a day as directed. Diagnosis = E11.9 1 Kit 0 06/29/2015 Active BD Pen Needle Wilda U/F 32G X 4 MM (Insulin Pen Needle)Indications :Type 2 diabetes mellitus with diabetic neuropathy, with long-term current use of insulin ([facility]),Type 2 diabetes mellitus with hemoglobin [...] long-term current use of insulin ([facility]) Use TWICE a day to test glucose Diagnosis = E11.9 200 Each 3 03/19/2023 Active Epoetin Gautam-epbx 45365 UNIT/ML Injection Solution (Retacrit) Inject 2 mL [...] in the morning. 30 Tablet 12/05/2023 Active Milan-3 Fish Oil 1000 MG Oral Capsule (Milan-3) Take 1 Capsule by mouth in the [...] as of this encounter (statuses as of 02/25/2024) Active Problems Problem Noted Date Diagnosed Date [...] as of this encounter (statuses as of 02/25/2024) Resolved Problems Problem Noted Date Diagnosed Date [...] as of this encounter (statuses as of 02/25/2024) Immunizations Name Administration Dates Next Due COVID-19 mRNA, LNP-s, No Pre serve, 2-Dose Series (Pfizer) 06/20/2021,10/22/2020,09/26/2020 COVID-19, LNP-s, No Preserve , Jamie-sucrose, Ages 12+ (Pfizer) 03/13/2022 Covid-19, Mrna, Lnp-s, Pf, B ivalent, 30 Mcg, IM, 12 yrs and above (Pfizer) 09/20/2022 Pneumococcal Conjugate Vacci ne, 20-valent ([id number]) 03/14/2022 Pneumococcal Polysaccharide PPV23 (Pneumovax) 03/19/2006 Seasonal [...] Sign Reading Time Taken Comments Blood Pressure 159/81 02/25/2024 10:53 AM EDT Pulse 67 02/25/2024 10:53 AM EDT Temperature 36.1 C (97 F) 02/25/2024 10: 53 AM EDT Respiratory Rate 17 02/25/2024 10:5 3 AM EDT Oxygen Saturation 99% 02/25/2024 10: 53 AM EDT Inhaled Oxygen Concentration - - Weight 136.9 kg (301 lb 14.4 oz) 2023 10:53 AM EDT Height - - Body Mass Index 42.11 01/01/2024 9:50 AM EDT documented in this encounter Progress Notes * Fly Velazquez MD - 02/25/2024 10:45 AM EDT NAME: Ronnie Floydhayleynatalie :1955 69-year-old male, DIAGNOSIS: Anemia because of abnormal kidney function test ( stage 3 a) - previous history of lower extremity DVT, he was on long-term anticoagulation, right lower extremity DVT earlier in 1985, he is on oral Coumadin treatment since then, recently when he was admitted [facility], (August of 2023), he was advised to discontinue oral Coumadin. -chronic bilateral leg edema and leg ulceration for the last 4 to 5 years. CURRENT TREATMENT: Currently he is on erythropoietin 59133 units every other week. He has underlying sleep apnea, has been using CPAP on a regular basis. OTHER IMPORTANT HISTORY: -Sleep apnea, diagnosed about 8-10 years back, he is on CPAP therapy. - He was seen by carrier washer, had stress test, as per the patient [...] well, denies any bleeding from the sites, Previously noted leg ulcers are gradually getting better, no fever, no infections, current weight around 300 lb, no new GI symptoms. No abdominal symptoms. No increasing headache. He is not on iron replacement therapy. Past Medical History: Diagnosis Date Adult body mass index 50.0-59.9 ([facility]) 09/26/2010 Anemia 06/11/2001 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 management encounter 01/30/2002 Closed fracture of head of radius left wrist Closed fracture of phalanx of finger Fractured Finger #5 right digit DM neuropathy, type II diabetes mellitus ([facility]) 05/08/2016 DM type 2, goal A1c below 7 06/09/2009 DM type 2, not at goal ([facility]) DVT (deep venous thrombosis) ([facility]) 03/18/2012 Dyslipidemia, goal LDL below 100 05/28/2013 Edema 01/17/2010 Fall 01/22/2023 "not sure ho-13 fractures and brain bleed" Fracture of clavicle, closed right colar bone fractured Gout 04/18/2004 uric acid 7.9 Gout of wrist assisted (current) use of anticoagulants 03/16/2005 Lumbar degenerative disc disease 03/28/2016 Morbid Obesity, BMI not known Persistent insomnia 06/29/2014 Phlebitis and thrombophlebitis 06/11/2001 Phlebitis and thrombophlebitis of other deep vessels of lower extremities Restless legs syndrome 06/29/2014 Retinal tear 2006 left eye-treated at [facility] in [place] Sensory peripheral neuropathy 05/08/2016 SLEEP APNEA NOS 06/11/2001 Ulcer of lower limb ([facility]) 01/17/2010 Venous insufficiency 04/23/2013 Venous stasis dermatitis 11/09/2014 Venous stasis dermatitis of both lower extremities 11/30/2015 Vitamin B12 deficiency 05/28/2013 Past Surgical History: Procedure Laterality Date 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 COLONOSCOPY, DIAGNOSTIC (RECTUM) 2008 Dr Hope - [facility] COLONOSCOPY, DIAGNOSTIC (RECTUM) 02/09/2022 benign adenomatous polyp, fair prep, repeat 5 yrs / [facility] EGD, FLEXIBLE, DIAGNOSTIC 09/11/2018 adenomatous & TVA polyps, repeat 3 yrs/[facility] EGD, FLEXIBLE, DIAGNOSTIC 06/30/2021 mild gastric irritation, hyperplastic gastric polyps / [facility] EGD, FLEXIBLE, DIAGNOSTIC N/A 09/26/2023 gastritis/non-obstructing non-bleeding duodenal ulcers/biposies show inflammatory changes/repeat 3 months/ESOPHAGOGASTRODUODENOSCOPY (EGD), FLEXIBLE, TRANSORAL, DIAGNOSTIC performed by Echo Jeong DO at OR [facility] EGD, FLEXIBLE, DIAGNOSTIC N/A 01/01/2024 ESOPHAGOGASTRODUODENOSCOPY (EGD), FLEXIBLE, TRANSORAL, DIAGNOSTIC performed by Jayda Jeong DOat OR [facility] FLUORESCEIN ANGIOGRAPHY MULTIFRAME Left 06/12/2022 FA, Dr. [...] performed by Raul Neely MD at OR [facility] RELIEVE INNER EYE PRESSURE Left 01/24/2017 left GONIOTOMY performed by Raul Neely MD at OR [facility] RELIEVE INNER EYE PRESSURE Left 01/29/2017 left GONIOTOMY performed by Raul Neely MD at OR [facility] REMOVE CATARACT, INSERT LENS PROSTH Right 12/25/2016 right EXTRACAPSULAR CATARACT REMOVAL WITH INTRAOCULAR LENS performed by Raul Neely MD at OR [facility] REMOVE CATARACT, INSERT LENS PROSTH Left 01/24/2017 left EXTRACAPSULAR CATARACT REMOVAL WITH INTRAOCULAR LENS performed by Raul Neely MD at OR [facility] REMOVE CATARACT, INSERT LENS PROSTH Left 01/29/2017 left EXTRACAPSULAR CATARACT REMOVAL WITH INTRAOCULAR LENS performed by Raul Neely MD at OR [facility] TREATMENT OF EXTENSIVE RETINOPATHY, PHOTOCOAGULATION Right 07/17/2023 Laser treatment OD, Dr. [place] PEÑA DUPLEX VENOUS LE BILAT 10/19/2009 no DVT, possible right inguinal lymph node 5x1x4 cm VEIN ABLATION EXTREMITY,ENDOVEN,1ST Left 04/2017 [facility] Current Outpatient Medications Medication Sig Dispense Refill Blood Glucose Monitoring Suppl (Cloud [employer]ines ULTRA SYSTEM) W/DEVICE KIT Use as directed [...] = E11.9 200 Each 3 Epoetin Gautam-epbx 84971 UNIT/ML Injection Solution (Retacrit) Inject 2 mL [...] MOUTH TWICE A DAY WITH BREAKFAST AND [id number] Tablet 3 Dorzolamide HCl-Timolol Mal 2-0.5 % [...] Glargine Solostar 100 UNIT/ML Subcutaneous Solution Pen-injector (Kylin Therapeuticsaglar KwikPen) Inject 10 Units under the skin in the morning. 15 mL 0 Melatonin 5 MG Oral Tablet Take 1 Tablet by mouth at bedtime. 30 Tablet 0 Multiple Vitamin Oral Tablet Take 1 Tablet by mouth in the morning. 30 Tablet 0 Milan-3 Fish Oil 1000 MG Oral Capsule (Milan-3) Take 1 Capsule by mouth in the morning. 30 Capsule 0 Polyethylene Glycol 3350 17 GM/SCOOP Oral Powder (MiraLax) Take 17 g by mouth in the morning. Dissolve one heaping tablespoon in 8 ounces of water or juice.. 255 g 0 Rhopressa 0.02 % Ophthalmic Solution Instill 1 Drop into the left eye at bedtime. 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 Anemia workup done on 2024: - Serum iron 45, TIBC 266, iron saturation 17% - Vitamin B-12 --> 1049 - Folic acid --> > 20 - Ferritin level --> 457. - BUN/Creat: 29/1.8, normal LFT, calcium 9.0. Blood workup done on 02/17/2024: -WBC 5300, Hemoglobin and hematocrit -10.1/31.1, MCV 94.5, Platelet count of 691314. ASSESSMENT AND PLAN: 68-year-old male, who has anemia related to abnormal kidney function test( stage 3 a), [place] [address] units every other week started on 04/09/2023. Overall tolerated well, blood pressure is slightly on the higher side, he is already on oral Coumadin for previously noted lower extremity DVT, has chronic bilateral leg edema and stasis ulcer and sohe was on long-term anticoagulant treatment but recently in August of 2019, when he was admitted at [facility], he would Doppler evaluation, there was no evidence of DVT, he was advised to discontinue oral Coumadin. No new bleeding complications I reviewed his blood workup done recently, gradual improvement hemoglobin level noted around 10 range. Will continue erythropoietin 78719 units every other week as we planned. Iron saturation on lower side, advised him to take oral iron ferrous sulfate 325 mg 3 days a week and see how he does. I am planning to see him back in the clinic about [address] Fly Velazquez Hem/Onc [...] in this encounter Nursing Notes * Pat Brown MED ASSIST - 02/25/2024 10:56 AM EDT Patient identifed by name and birthdate Do [...] it for you? ALREADY ACTIVE Filed Vitals: 02/25/24 1053 BP: 159/81 Pulse: 67 Resp: 17 Temp: 36.1 C (97 F) TempSrc: Tympanic SpO2: 99% Weight: (!) 136.9 kg (301 lb 14.4 oz) Patient was instructed to not get [...] Team (Late st Contact Info) Description 03/02/2024 9:00 AM EDT Laboratory Laboratory [address] [place] [phone] [facility] [address] [place] [address] 03/03/2024 10:15 AM EDT Immunization/Injectio n Hematology/Oncology Treatment, [place] [address] [facility] [place] [phone] Nurse, Med [address] [facility] [place] [address] 03/27/2024 10:40 AM EDT Office Visit Family Medicine [address] [place] [phone] Marry [address] [place] [address] 04/21/2024 2:00 PM EDT Office Visit Cardiology [address] [place] [address] Prabhakar Henning PA-C [address] [place] [address] 04/30/2024 2:30 PM EDT Office Visit Nephrology, [facility] [address] [facility] [place] [address] ZemaBeckie umanzor PA-C [address] [facility] [place] [address] 06/02/2024 10:30 AM EDT Office Visit Sleep Disorders Ctr Manny Browne [place] [address] [place] [phone] Dorothy Toscano CRNP [address] [place] [address] 06/23/2024 9:15 AM EST Office Visit Hematology/Oncology [facility] [address] [place] [phone] Fly Velazquez MD [address] [place] [address] 09/18/2024 2:00 PM EST Office Visit Nephrology [address] [place] [address] Beckie Dunbar PA-C [address] [place] [address] 10/22/2024 10:00 AM EDT Office Visit Sleep Disorders Ctr [facility] [address] [place] [phone] Dorothy Toscano CRNP [address] [place] [address] Scheduled Procedures Name Priority Associated Diagnoses Date/Ti [...] Additional history exists CKD PHOS USE SMARTSET 46081 09/02/202408/13, 09/18/2022, 08/29/2021, Additional history exists Diabetic Eye Exam 10/23/2024 10/24/2023, , 10/09/2022, Additional history exists CKD HGB USE SMARTSET 84850 02/16/202502/16, 02/17/2024, 2024, Additional history exists Colonoscopy [...] this encounter Medical Devices Implanted Type Area Laborer Vineyard Device Identifier Shelf Expiration Date Model / Serial / Lot Envista Hydrophobic Acrylic Intraocular Lens Implanted:Qty: 1 on 12/25/2016 by Raul Neely MD at OR [facility] Right: Eye [employer] 11/09/2018 [id number] / [id number] Envista Mx60 +10.0 D Implanted:Qty: 1 on 01/29/2017 by Raul Neely MD at OR [facility] Left: Eye 11/09/2018 [id number] / [id number] documented as of this encounter Visit Diagnoses Diagnosis Anemia due to stage 3a chronic kidney disease (HCC)- Primary Venous insufficiency Unspecified venous (peripheral) insufficiency documented in this encounter Advance Directives * [...] and were consensually agreed upon. Care Teams Fitness Club Manager Relationship Specialty Start Date End Date Nancy Ryan DO [address] [place] [address] [place] [address] PCP - General Internal Medicine 09/11/18 documented as of this encounter
--- OUTSIDE RECORDS SUMMARY | 2024-05-15 23:08 | External Medical Summary | Summary of Care ---
Author Name Unknown Organization [facility] Address [address] [place] [address] Phone [phone] Care Team Providers Care Vocational Case Manager Name Role Phone Nancy Ryan DO Primary Care Provider Reason for Visit * Reason Comments Outpatient Testing Encounter Details Date Type Department Care Team (Late st Contact Info) Description 03/02/2024 9:00 AM EDT Laboratory Laboratory [address] [place] [phone] [facility] [address] [place] [address] Anemia due to stage 3a chronic kidney disease (HCC) Allergies No known active allergiesdocumented as of this encounter (statuses as of 03/02/2024) Medications Medication Sig Dispensed Refills Start Date End Date Status Blood Glucose Monitoring Suppl (Pony ZeroUCH ULTRA SYSTEM) W/DEVICE KITIndications:DM type 2, goal [...] 200 Each 3 03/19/2023 Active Epoetin Gautam-epbx 45082 UNIT/ML Injection Solution (Retacrit) Inject 2 mL [...] in the morning. 30 Tablet 12/05/2023 Active [place]-3 Fish Oil 1000 MG Oral Capsule ([place]-3) Take 1 Capsule by mouth in the [...] Taxonomy 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 of inactive term manager intermediate current use of ant icoagulant therapy [...] (Pfizer) 09/20/2022 Pneumococcal Conjugate Vacci ne, 20-valent ([id number]) 03/14/2022 Pneumococcal Polysaccharide PPV23 (Pneumovax) 03/19/2006 Seasonal [...] 10:15 AM EDT Immunization/Injec tion Hematology/Oncology Treatment, [place] [place] [phone] Jordana, Chair [address] Hem On[address] [place] [address] 03/27/2024 10:40 AM EDT Office Visit Family Medicine [address] [place] [phone] [address] [place] [address] 04/21/2024 2:00 PM EDT Office Visit Cardiology [address] [place] [address] Prabhakar Henning PA-C [address] [place] [address] 04/30/2024 2:30 PM EDT Office Visit Nephrology, [facility] Jordana [address] [place] [address] [place] [address] Beckie Dunbar PA-C [address] [facility] [place] [address] 06/02/2024 10:30 AM EDT Office Visit Sleep Disorders Ctr Manny Browne [place] [address] [place] [phone] Dorothy Toscano CRNP [address] [place] [address] 06/23/2024 9:15 AM EST Office Visit [facility]ematology[facility]On[facility] [place] [address] [place] [phone] Fly Velazquez MD [address] [place] [address] 09/18/2024 2:00 PM EST Office Visit Nephrology [address] [place] [address] Beckie Dunbar PA-C [address] [place] [address] 10/22/2024 10:00 AM EDT Office Visit Sleep Disorders Ctr Manny Browne [place] [address] [place] [phone] Dorothy Toscano CRNP [address] [place] [address] Pending Results Name Type Priority Associated Diagnoses Date /Time CBC WITH WBC DIFFERENTIAL Lab STAT Anemia due to stage 3a chronic kidney disease (HCC) 03/02/2024 9:21 AM EDT CBC Lab STAT Anemia due to stage 3a chronic kidney disease (HCC) 03/02/2024 9:21 AM EDT DIFFERENTIAL, AUTOMATED Lab STAT Anemia due to stage 3a chronic kidney disease (HCC) 03/02/2024 9:21 AM EDT Scheduled Procedures Name Priority Associated Diagnoses Date/Ti me COLONOSCOPY FLEXIBLE PROXIMAL DIAGNOSTIC Recall History of colon polyps Health Maintenance Due Date Last Done Comments Cologuard 2002 Sigmoidoscopy 2002 Fecal Occult Blood Test 07/07/2011 07/07/20 10, 08/25/2003, 12/16/1998 Depression Screening 01/28/2021 01/29/2020 Diabetic Foot Exam 03/14/2023 03/14/2022, 0 11/30/2015, 11/09/2014, Additional history exists COVID-19 Vaccine (2022- season) 2023 06/28/2023, 09/20/2022, 03/13/2022, Additional history exists Albumin/Creatinine Ratio 02/20/2024 023, 03/14/2022, 05/19/2021, Additional history exists Influenza Vaccine (FLU shot) (#1) 2024 05/15/2023, 06/25/2022, 05/19/2021, Additional history exists HbA1c 06/24/2024 12/23/2023, 120 11/2022, 03/19/2023, Additional history exists GFR 08/04/2024 2024, 01/10, 12/23/2023, Additional history exists CKD PHOS USE SMARTSET 32742 09/02/202408/13, 09/18/2022, 08/29/2021, Additional history exists Diabetic Eye Exam 10/23/2024 10/24/2023, , 10/09/2022, Additional history exists CKD HGB USE SMARTSET 27147 02/16/202502/16, 02/17/2024, 2024, Additional history exists Colonoscopy [...] this encounter Medical Devices Implanted Type Area Radiophone Operator Device Identifier Shelf Expiration Date Model / Serial / Lot Envista Hydrophobic Acrylic Intraocular Lens Implanted:Qty: 1 on 12/25/2016 by Raul Neely MD at OR [facility] Right: Eye [employer] 11/09/2018 [id number] / [id number] / [id number] Envista Mx60 +10.0 D Implanted:Qty: 1 on 01/29/2017 by Raul Neely MD at OR [facility] Left: Eye 11/09/2018 [id number] / [id number] / [id number] documented as of this encounter Visit Diagnoses [...] and were consensually agreed upon. Care Teams Vocational Case Manager Relationship Specialty Start Date End Date Nancy Ryan DO [address] [place] [address] [place] [phone] PCP - General Internal Medicine 09/11/18 documented as of this encounter
--- OUTSIDE RECORDS SUMMARY | 2024-05-15 23:08 | External Medical Summary ---
Author Name Unknown Address Unknown Organization K01:[facility] [place] [address] [facility] [address] Laboratory Report Ordering Provider Test Date Status JANE WOODRUFF 02/17/2024 10:22:57 Final Observation Date Value Abnormality Reference (Units ) Status SYNC LEUKOCYTES IN BLOOD BY AUTOMATED COUNT 02/17/2024 10:22:57 5.39 4.00-10.80 (K/uL) Final Segs 02/17/2024 10:22:57 61.7 40.0-75.0 (%) Final Lymphs % 02/17/2024 10:22:57 25.8 18.0-42.0 (%) Final Monos 02/17/2024 10:22:57 6.9 1.0-11.0 (%) Final Eosinophils 02/17/2024 10:22:57 4.6 0.0-6.0 (%) Final Basos 02/17/2024 10:22:57 0.6 0.0-2.0 (%) Final Immature Granulocyte, Percent 02/17/2024 10:22:57 0.4 0.0-2.0 (%) Final Absolute Segs 02/17/2024 10:22:57 3.33 1.80-7.70 (K/uL) Final Lymphs, absolute 02/17/2024 10:22:57 1.39 1.00-4.80 (K/ul) Final Monos, Abs 02/17/2024 10:22:57 0.37 0.00-1.10 (K/uL) Final Eos, Abs 02/17/2024 10:22:57 0.25 0.00-0.70 (K/uL) Final Basos, Abs 02/17/2024 10:22:57 0.03 0.00-0.20 (K/uL) Final Immature Granulocytes, Number 02/17/2024 10:22:57 0.02 0.00-0.20 (K/uL) Final Performing Location [facility] [place] [address] [facility] [address]
--- OUTSIDE RECORDS SUMMARY | 2024-05-15 23:08 | External Medical Summary | Summary of Care ---
Author Name Unknown Organization [facility] Address [address] [place] [address] Phone [phone] Care Team Providers Care Health And Physical Education Teacher Name Role Phone Nancy Ryan DO Primary Care Provider Reason for Visit * Reason Comments Medication Administration Retacrit. * Episode Based Medications (Routine) - Authorized Specialty Diagnoses / Procedures Referred By Contac t Referred To Contact Diagnoses Anemia due to stage 3a chronic kidney disease (HCC) Procedures [place] INJ RETACRIT NON-ESRD USE Tameka Pires CRNP [address] [facility] [address] Anc Hem/Onc [place] DEPT CLOSED - 06/25/23 [address] [place] [address] Referral ID Status Reason Start Date Expiration Date V isits Requested Visits Authorized [id number] Authorized 12/10/2023 03/03/[phone] Encounter Details Date Type Department Care Team (Late st Contact Info) Description 02/18/2024 10:15 AM EDT Immunization/I njection Hematology/Oncology Treatment, [place] [address] [place] [address] Nurse, Med 4 [address] [place] [address] Anemia due to stage 3a chronic kidney disease (HCC)* Allergies No known active allergiesdocumented as of this encounter (statuses as of 02/18/2024) Medications Medication Sig Dispensed Refills Start Date End Date Status Blood Glucose Monitoring Suppl (Curbsy ULTRA SYSTEM) W/DEVICE KITIndications:DM type 2, goal [...] DX e11.9 100 Each 3 10/17/2021 Active AllFreedTouch Verio In Vitro Strip (Glucose Blood) Use to test blood sugars twice a day. Dx. 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 30 Tablet 12/05/2023 Active Uneeda-3 Fish Oil 1000 MG Oral Capsule (Uneeda-3) Take 1 Capsule by mouth in the [...] as of this encounter (statuses as of 02/18/2024) Active Problems Problem Noted Date Diagnosed Date [...] as of this encounter (statuses as of 02/18/2024) Resolved Problems Problem Noted Date Diagnosed Date [...] Obesity Taxonomy 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 of inactive term meterman current use of ant icoagulant therapy 03/16/2005 [...] as of this encounter (statuses as of 02/18/2024) Immunizations Name Administration Dates Next Due COVID-19 mRNA, LNP-s, No Pre serve, 2-Dose Series (Pfizer) 06/20/2021,10/22/2020,09/26/2020 COVID-19, LNP-s, No Preserve , Jamie-sucrose, Ages 12+ (Pfizer) 03/13/2022 Covid-19, Mrna, Lnp-s, Pf, B ivalent, 30 Mcg, IM, 12 yrs and above (Pfizer) 09/20/2022 Pneumococcal Conjugate Vacci ne, 20-valent ([id number]) 03/14/2022 Pneumococcal Polysaccharide PPV23 (Pneumovax) 03/19/2006 Seasonal [...] Care Team (Late st Contact Info) Description 02/21/2024 2:00 PM EDT Office Visit Ophthalmology, [address] [place] [address] Mika Diaz DO [address] [place] [address] 02/25/2024 10:45 AM EDT Office Visit Hematology/Oncology [facility] 200 [facility] [place] [phone] Fly Velazquez MD 200 [facility] [place] [address] 03/02/2024 9:00 AM EDT Laboratory Laboratory [address] [place] [phone] [place] [address] 03/03/2024 10:15 AM EDT Immunization/Injecti on Hematology/Oncology Treatment, [place] 200 [facility] [place] [phone] Nurse, Med 200 [facility] [place] [address] 03/27/2024 10:40 AM EDT Office Visit Family Medicine [address] [place] [phone] [place] [address] 04/21/2024 2:00 PM EDT Office Visit Cardiology [address] [place] [address] Prabhakar Henning PA-C [address] [place] [address] 04/30/2024 2:30 PM EDT Office Visit Nephrology, [facility] 200 [facility] [place] [address] Beckie Dunbar PA-C [address] [place] [address] 06/02/2024 10:30 AM EDT Office Visit [facility] Anthony [address] [place] [phone] Dorothy Toscano CRNP [address] [place] [address] 09/18/2024 2:00 PM EST Office Visit Nephrology [address] [place] [address] Beckie Dunbar PA-C [address] [place] [address] 10/22/2024 10:00 AM EDT Office Visit [facility] Anthony [address] [place] [phone] Dorothy Toscano CRNP [address] [place] [address] Scheduled Procedures Name Priority Associated Diagnoses Date/Ti [...] Additional history exists CKD PHOS USE SMARTSET 95345 09/02/202408/13, 09/18/2022, 08/29/2021, Additional history exists Diabetic Eye Exam 10/23/2024 10/24/2023, , 10/09/2022, Additional history exists CKD HGB USE SMARTSET 64151 02/16/202502/16, 02/17/2024, 2024, Additional history exists Colonoscopy 02/09/2027 02/09/2022, 08/14, 12/07/2008 Colorectal Cancer Screening 02/09/2027 Lipid Panel 02/11/2028 02/10/2023, 080 10/2021, 05/19/2021, Additional history exists DXA Scan [...] this encounter Medical Devices Implanted Type Area Floor Worker Device Identifier Shelf Expiration Date Model / Serial / Lot Envista Hydrophobic Acrylic Intraocular Lens Implanted:Qty: 1 on 12/25/2016 by Raul Neely MD at [facility] Right: Eye [employer] 11/09/2018 [id number] / [id number] / [id number] Envista Mx60 +10.0 D Implanted:Qty: 1 on 01/29/2017 by Raul Neely MD at [facility] Left: Eye 11/09/2018 [id number] / [id number] documented as of this encounter Visit Diagnoses Diagnosis Anemia due to stage 3a chronic kidney disease (HCC)- Primary documented in this encounter Administered Medications Inactive Administered Medications - up to 3 most recent administrations Medication Order MAR Action Action Date Dose Rate Site Epoetin Gautam-epbx (Retacrit) 30264 UNIT/ML inj 40,000 Units 40,000 Units, Subcutaneous, [...] and were consensually agreed upon. Care Teams Health And Physical Education Teacher Relationship Specialty Start Date End Date Nancy Ryan DO [address] [place] [address] [place] [id number] PCP - General Internal Medicine 09/11/18 documented as of this encounter
--- OUTSIDE RECORDS SUMMARY | 2024-05-15 23:08 | External Medical Summary | Summary of Care ---
Author Name Unknown Organization [facility] Address [address] [place] [address] Phone [phone] Care Team Providers Care Belly Packer Name Role Phone Nancy Ryan DO Primary Care Provider Reason for Visit * Reason Comments Medication Administration Retacrit 40,00 0 units * Episode Based Medications (Routine) - Authorized Specialty Diagnoses / Procedures Referred By Contac t Referred To Contact Diagnoses Anemia due to stage 3a chronic kidney disease (HCC) Procedures [place] INJ RETACRIT NON-ESRD USE Tameka Pires CRNP [address] [place] [address] Anc Hem/Onc [place] DEPT CLOSED - 06/25/23 [address] [place] [address] Referral ID Status Reason Start Date Expiration Date V isits Requested Visits Authorized [id number] Authorized 12/10/2023 03/03/[phone] Encounter Details Date Type Department Care Team (Late st Contact Info) Description 02/04/2024 10:15 AM EDT Immunization/I njection Hematology/Oncology Treatment, [place] [address] [place] [phone] Nurse, Med 4 [address] [place] [address] Anemia due to stage 3a chronic kidney disease (HCC)* Allergies No known active allergiesdocumented as of this encounter (statuses as of 02/18/2024) Medications Medication Sig Dispensed Refills Start Date End Date Status Blood Glucose Monitoring Suppl (roomlinx ULTRA SYSTEM) W/DEVICE KITIndications:DM type 2, goal [...] DX e11.9 100 Each 3 10/17/2021 Active SDH GroupTouch Verio In Vitro Strip (Glucose Blood) Use to test blood sugars twice a day. Dx. E11.9 300 Strip 1 03/13/2023 Active SDH GroupTouch Delica Lancets 30GIndications:Typ e 2 diabetes mellitus with diabetic neuropathy, with long-term current use of insulin ([facility]) Use TWICE a day to test glucose Diagnosis = E11.9 200 Each 3 03/19/2023 Active Epoetin Gautam-epbx 19540 UNIT/ML Injection Solution (Retacrit) Inject 2 mL [...] in the morning. 30 Tablet 12/05/2023 Active [place]ginsville-3 Fish Oil 1000 MG Oral Capsule ([place]-3) Take 1 Capsule by mouth in the [...] Overview: Non-obstructive. Noted on CT scan at [facility] 05/2019 Mild nonproliferative diabet ic [...] (Pfizer) 09/20/2022 Pneumococcal Conjugate Vacci ne, 20-valent ([id number]) 03/14/2022 Pneumococcal Polysaccharide PPV23 (Pneumovax) 03/19/2006 Seasonal [...] Sign Reading Time Taken Comments Blood Pressure 149/64 02/04/2024 10:37 AM EDT Pulse - - Temperature - - Respiratory Rate - - Oxygen Saturation - - Inhaled Oxygen Concentration - - Weight - - Height - - Body Mass Index - - documented in this encounter Nursing Notes * Elizabeth Griffith LPN - 02/04/2024 10:52 AM EDT Retacrit 40,000 units administered SQ into the left upper extremity per standing order. HGB 103. Patient reported feeling off balance, wobbly in legs, and swishing in head upon standing. Now reports only felt this way after taking a gummy vitamin earlier where he usually takes it at night. Patient advised to take that gummy vitamin at night as he did before. Also advised to drink water due to elevated BUN. Patient will return in 2 weeks. documented in this encounter Plan of Treatment Upcoming Encounters Date Type Department Care Team (Late st Contact Info) Description 02/18/2024 10:15 AM EDT Immunization/Inje ction Hematology/Oncology Treatment, [place] 200 [facility] [place] [phone] Nurse, Med 4 200 [facility] [place] [address] 02/21/2024 2:00 PM EDT Office Visit Ophthalmology, [facility] [address] [place] [address] Mika Diaz DO [address] [place] [address] 02/25/2024 10:45 AM EDT Office Visit Hematology/Oncology [facility] [place] 200 [facility] [place] [phone] Fly Velazquez MD 200 [facility] [place] [address] 03/27/2024 10:40 AM EDT Office Visit Family Medicine [address] [place] [phone] Marry Hansen [address] [place] [address] 04/21/2024 2:00 PM EDT Office Visit Cardiology [address] [place] [address] Prabhakar Henning PA-C [address] [place] [address] 04/30/2024 2:30 PM EDT Office Visit Nephrology, [facility] 200 [facility] [place] [address] Beckie Dunbar PA-C 200 [facility] [place] [address] 06/02/2024 10:30 AM EDT Office Visit Sleep Disorders Ctr Manny Browne [place] [address] [place] [phone] Dorothy Toscano CRNP [address] [place] [address] 09/18/2024 2:00 PM EST Office Visit Nephrology [address] [place] [address] ZeBeckie cruz PA-C [address] [place] [address] 10/22/2024 10:00 AM EDT Office Visit Sleep Disorders Ctr Manny Browne [place] [address] [place] [phone] Dorothy Toscano CRNP [address] [place] [address] Scheduled Procedures Name Priority Associated Diagnoses Date/Ti [...] Additional history exists CKD PHOS USE SMARTSET 74079 09/02/202408/13, 09/18/2022, 08/29/2021, Additional history exists Diabetic Eye Exam 10/23/2024 10/24/2023, , 10/09/2022, Additional history exists CKD HGB USE SMARTSET 65360 02/16/202502/16, 02/17/2024, 2024, Additional history exists Colonoscopy [...] this encounter Medical Devices Implanted Type Area Chlorination Operator Device Identifier Shelf Expiration Date Model / Serial / Lot Envista Hydrophobic Acrylic Intraocular Lens Implanted:Qty: 1 on 12/25/2016 by Raul Neely MD at [facility] Right: Eye [employer] 11/09/2018 [id number] / [id number] / [id number] Envista Mx60 +10.0 D Implanted:Qty: 1 on 01/29/2017 by Raul Neely MD at [facility] Left: Eye 11/09/2018 [id number] / [id number] / [id number] documented as of this encounter Visit Diagnoses Diagnosis Anemia due to stage 3a chronic kidney disease (HCC)- Primary documented in this encounter Administered Medications Inactive Administered Medications - up to 3 most recent administrations Medication Order MAR Action Action Date Dose Rate Site Epoetin Gautam-epbx (Retacrit) 27504 UNIT/ML inj 40,000 Units 40,000 Units, Subcutaneous, ONCE, On Sat02/04/24 at 1115, For 1 dose Given 02/04/2024 10:48 AM EDT 40,000 Units Arm Left Upper [...] and were consensually agreed upon. Care Teams Belly Packer Relationship Specialty Start Date End Date Nancy Ryan DO [address] [place] [address] [place] [address] PCP - General Internal Medicine 09/11/18 documented as of this encounter
--- OUTSIDE RECORDS SUMMARY | 2024-05-15 23:08 | External Medical Summary ---
Author Name Unknown Address Unknown Organization K01:[facility] [place] [address] [facility] [address] [facility] [address] Laboratory Report Ordering Provider Test Date Status JANE WOODRUFF 02/17/2024 10:22:57 Final Observation Date Value Abnormality Reference (Units ) Status WBC, Total 02/17/2024 10:22:57 5.39 4.00-10.80 (K/uL) Final RBC 02/17/2024 10:22:57 3.29 4.50-5.25 (M/uL) Final Hemoglobin 02/17/2024 10:22:57 10.1 Below low normal 14.0-16.8 (g/dL) Final HCT 02/17/2024 10:22:57 31.1 Below low normal 40.0-48.4 (%) Final MCV 02/17/2024 10:22:57 94.5 82.0-99.5 (fL) Final MCH 02/17/2024 10:22:57 30.7 27.0-34.0 (pg) Final MCHC 02/17/2024 10:22:57 32.5 32.0-36.0 (g/dL) Final RDW 02/17/2024 10:22:57 17.5 11.5-15.5 (%) Final Platelets 02/17/2024 10:22:57 186 140-400 (K/uL) Final MPV 02/17/2024 10:22:57 10.0 6.6-11.1 (fL) Final Nucleated erythrocytes/100 leukocytes [Ratio] in Blood by Automated count 02/17/2024 10:22:57 0 <=0 (/100 WBCs) Final Performing Location [facility] [place] [address] [facility] [place] [address]
--- OUTSIDE RECORDS SUMMARY | 2024-05-15 23:08 | External Medical Summary | Summary of Care ---
Author Name Unknown Organization [facility] Address [address] [place] [address] Phone [phone] Care Team Providers Care High [employer] Foreign Language Tutor Name Role Phone Nancy Ryan DO Primary Care Provider Reason for Visit * Reason Comments Medication Administration Retacri 40,000 units * Episode Based Medications (Routine) - Authorized Specialty Diagnoses / Procedures Referred By Contac t Referred To Contact Diagnoses Anemia due to stage 3a chronic kidney disease (HCC) Procedures [place] INJ RETACRIT NON-ESRD USE Tameka Pires CRNP [address] [place] [address] Anc Hem/Onc [place] DEPT CLOSED - 06/25/23 [address] [place] [address] Referral ID Status Reason Start Date Expiration Date V isits Requested Visits Authorized [id number] Authorized 12/10/2023 03/03/[phone] Encounter Details Date Type Department Care Team (Late st Contact Info) Description 01/21/2024 10:15 AM EDT Immunization/I njection Hematology/Oncology Treatment, [place] [address] [place] [address] Nurse, Med 4 [address] [place] [address] Anemia due to stage 3a chronic kidney disease (HCC)* Allergies No known active allergiesdocumented as of this encounter (statuses as of 02/19/2024) Medications Medication Sig Dispensed Refills Start Date End Date Status Blood Glucose Monitoring Suppl (Exogenesis ULTRA SYSTEM) W/DEVICE KITIndications:DM type 2, goal A1c below 7 Use as directed 4 times a day. Use up to four times a day as directed. Diagnosis = E11.9 1 Kit 0 06/29/2015 Active BD Pen Needle Wilda U/F 32G X 4 MM (Insulin Pen Needle)Indication s:Type 2 diabetes mellitus with diabetic neuropathy, with long-term current use of insulin ([facility]),Type 2 diabetes mellitus with hemoglobin A1c goal of less than 7.0% ([facility]) Use once a day with basaglar. DX e11.9 100 Each 3 10/17/2021 Active NetroundsTouch Verio In Vitro Strip (Glucose Blood) Use to test blood sugars twice a day. Dx. E11.9 300 Strip 1 03/13/2023 Active NetroundsTouch Delica Lancets 30GIndications:Ty pe 2 diabetes mellitus with diabetic neuropathy, with long-term current use of insulin ([facility]) Use TWICE a day to test glucose Diagnosis = E11.9 200 Each 3 03/19/2023 Active Epoetin Gautam-epbx 86643 UNIT/ML Injection Solution (Retacrit) Inject 2 mL [...] in the morning. 30 Tablet 12/05/2023 Active Wahoo-3 Fish Oil 1000 MG Oral Capsule (Wahoo-3) Take 1 Capsule by mouth in the [...] DX E11.9 Diabetes Mellitus 3 mL 5 12/24/2023 4 Discontinu ed(Refill) Hospital, Clinic, or Other Facility [...] as of this encounter (statuses as of 02/19/2024) Active Problems Problem Noted Date Diagnosed Date [...] as of this encounter (statuses as of 02/19/2024) Resolved Problems Problem Noted Date Diagnosed Date [...] as of this encounter (statuses as of 02/19/2024) Immunizations Name Administration Dates Next Due COVID-19 mRNA, LNP-s, No Pre serve, 2-Dose Series ([employer]) 06/20/2021,10/22/2020,09/26/2020 COVID-19, LNP-s, No Preserve , Jamie-sucrose, Ages 12+ (Pfizer) 03/13/2022 Covid-19, Mrna, Lnp-s, Pf, B ivalent, 30 Mcg, IM, 12 yrs and above (Pfizer) 09/20/2022 Pneumococcal Conjugate Vacci ne, 20-valent ([id number]) 03/14/2022 Pneumococcal Polysaccharide PPV23 (Pneumovax) 03/19/2006 Seasonal [...] Sign Reading Time Taken Comments Blood Pressure 142/79 01/21/2024 10:30 AM EDT Pulse - - Temperature - - Respiratory Rate - - Oxygen Saturation - - Inhaled Oxygen Concentration - - Weight - - Height - - Body Mass Index - - documented in this encounter Nursing Notes * Elizabeth Griffith LPN - 01/21/2024 10:30 AM EDT Retacrit 40,000 units administered SQ into the left upper extremity per standing order. HGB 10.5 Blood pressure 142/79 Patient tolerated injection and will return in 2 weeks. documented in this encounter Plan of Treatment Upcoming Encounters Date Type Department Care Team (Late st Contact Info) Description 02/21/2024 2:00 PM EDT [facility] [place] [address] Mika Diaz DO [address] [place] [address] 02/25/2024 10:45 AM EDT Office Visit Hematology/Oncology [place] [address] [place] [phone] Fly Velazquez MD 200 [facility] [place] [address] 03/02/2024 9:00 AM EDT Laboratory Laboratory [address] [place] [phone] [place] [address] 03/03/2024 10:15 AM EDT Immunization/Injecti on Hematology/Oncology Treatment, [place] [address] [facility] [address] [place] [address] Nurse, Med 200 [facility] [place] [address] 03/27/2024 10:40 AM EDT Office Visit Family Medicine [address] [place] [phone] Marry Hansen [address] [place] [address] 04/21/2024 2:00 PM EDT Office Visit Cardiology [address] [place] [address] Prabhakar Henning PA-C [address] [place] [address] 04/30/2024 2:30 PM EDT Office Visit Nephrology, [facility] 200 [facility] [place] [address] Beckie Dunbar PA-C 200 [facility] [place] [address] 06/02/2024 10:30 AM EDT Office Visit Sleep Disorders Ctr Manny Browne [place] [address] [place] [phone] Dorothy Toscano CRNP [address] [place] [address] 09/18/2024 2:00 PM EST Office Visit Nephrology [address] [place] [address] Beckie Dunbar PA-C [address] [place] [address] 10/22/2024 10:00 AM EDT Office Visit Sleep Disorders Ctr Manny Browne [place] [address] [place] [phone] Dorothy Toscano CRNP [address] [place] [address] Scheduled Procedures Name Priority Associated Diagnoses Date/Ti [...] Additional history exists CKD PHOS USE SMARTSET 34264 09/02/202408/13, 09/18/2022, 08/29/2021, Additional history exists Diabetic Eye Exam 10/23/2024 10/24/2023, , 10/09/2022, Additional history exists CKD HGB USE SMARTSET 46004 02/16/202502/16, 02/17/2024, 2024, Additional history exists Colonoscopy [...] encounter Medical Devices Implanted Type Area Fretted String Instrument Repairer Device Identifier Shelf Expiration Date Model / Serial / Lot Envista Hydrophobic Acrylic Intraocular Lens Implanted:Qty: 1 on 12/25/2016 by Raul Neely MD at [facility] Right: Eye [employer] 11/09/2018 [id number] / [id number] Envista Mx60 +10.0 D Implanted:Qty: 1 on 01/29/2017 by Raul Neely MD at [facility] Left: Eye 11/09/2018 [id number] / [id number] / [id number] documented as of this encounter Visit Diagnoses Diagnosis Anemia due to stage 3a chronic kidney disease (HCC)- Primary documented in this encounter Administered Medications Inactive Administered Medications - up to 3 most recent administrations Medication Order MAR Action Action Date Dose Rate Site Epoetin Gautam-epbx (Retacrit) 92848 UNIT/ML inj 40,000 Units 40,000 Units, Subcutaneous, ONCE, On 01/21/24 at 1100, For 1 dose Given 01/21/2024 10:26 AM EDT 40,000 Units Arm Left Upper [...] and were consensually agreed upon. Care Teams [employer] Foreign Language Tutor Relationship Specialty Start Date End Date Nancy Ryan DO [address] [place] [address] [place] [address] PCP - General Internal Medicine 09/11/18 documented as of this encounter
--- OUTSIDE RECORDS SUMMARY | 2024-05-15 23:08 | External Medical Summary ---
Author Name Unknown Address Unknown Organization K01:[facility]ORY [facility] [place] - [facility] [place] [address] [facility] [address] [facility] [address] Laboratory Report Ordering Provider Test Date Status JANE WOODRUFF 03/02/2024 09:21:59 Final Observation Date Value Abnormality Reference (Units ) Status WBC, Total 03/02/2024 09:21:59 5.87 4.00-10.80 (K/uL) Final RBC 03/02/2024 09:21:59 3.25 4.50-5.25 (M/uL) Final Hemoglobin 03/02/2024 09:21:59 9.7 Below low normal 14.0-16.8 (g/dL) Final HCT 03/02/2024 09:21:59 30.1 Below low normal 40.0-48.4 (%) Final MCV 03/02/2024 09:21:59 92.6 82.0-99.5 (fL) Final MCH 03/02/2024 09:21:59 29.8 27.0-34.0 (pg) Final MCHC 03/02/2024 09:21:59 32.2 32.0-36.0 (g/dL) Final RDW 03/02/2024 09:21:59 17.2 11.5-15.5 (%) Final Platelets 03/02/2024 09:21:59 156 140-400 (K/uL) Final MPV 03/02/2024 09:21:59 10.1 6.6-11.1 (fL) Final Nucleated erythrocytes/100 leukocytes [Ratio] in Blood by Automated count 03/02/2024 09:21:59 0 <=0 (/100 WBCs) Final Performing Location LABORATORY [facility] [place] - [address] [facility] [address]
--- OUTSIDE RECORDS SUMMARY | 2024-05-15 23:08 | External Medical Summary | Summary of Care ---
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 30 Tablet 12/05/2023 Active Gower-3 Fish Oil 1000 MG Oral Capsule (Gower-3) Take 1 Capsule by mouth in the [...] as of this encounter (statuses as of 02/21/2024) Active Problems Problem Noted Date Diagnosed Date [...] Overview: Non-obstructive. Noted on CT scan at [facility] 05/2019 Mild nonproliferative diabet ic retinopathy [...] as of this encounter (statuses as of 02/21/2024) Resolved Problems Problem Noted Date Diagnosed Date [...] as of this encounter (statuses as of 02/21/2024) Immunizations Name Administration Dates Next Due COVID-19 mRNA, LNP-s, No Pre serve, 2-Dose Series (Pfizer) 06/20/2021,10/22/2020,09/26/2020 COVID-19, LNP-s, No Preserve , Jamie-sucrose, Ages 12+ (Pfizer) 03/13/2022 Covid-19, Mrna, Lnp-s, Pf, B ivalent, 30 Mcg, IM, 12 yrs and above (Pfizer) 09/20/2022 Pneumococcal Conjugate Vacci ne, 20-valent ([id number]) 03/14/2022 Pneumococcal Polysaccharide PPV23 (Pneumovax) 03/19/2006 Seasonal [...] encounter Progress Notes * Mika Diaz, - 02/21/2024 2:00 PM EDT [facility] [place] HPI: Ronnie Wu is a 69 year old male who presents for evaluation of DR Base Eye Exam Visual Acuity (Snellen - Linear) Right Left Dist cc 20/30 -2 20/25 Correction: Glasses Tonometry (Tonopen, 2:07 PM) Right Left Pressure 8 13 Pupils Pupils Shape React APD Right PERRL Round Minimal None Left PERRL Round Minimal None Visual Montes (Counting fingers) Right Left Full Full Extraocular Movement Right Left Full, Ortho Full, Ortho Neuro/Psych Oriented x3: Yes Mood/Affect: Normal Dilation Both eyes: 0.5% Proparacaine @ 2:05 PM Dilation #2 Both eyes: 1.0% Mydriacyl, 2.5% Phenylephrine @ 2:07 PM Dilation #3 Both eyes: 1.0% Mydriacyl @ 2:09 PM Dilation Comments Patient cautioned that effects of dilation may last 2-7 hours dependant upon individual reaction. It was discussed that driving while dilated is not recommended. EXTERNAL: The ocular adnexae are unremarkable. SLE: Lids/Lashes: wnl OU Conjunctiva/Sclera: quiet OU Cornea: clear OU Anterior Chamber: deep and quiet OU Iris: normal OU; no NVI OU Lens: PCIOL OU GONIOSCOPY: 02/21/2024 compared to 10/24/2023 OD: open to SS/CB, resolved recurrent NVA nasally and heme in inferior angle --STABLE, prior IMPROVED, prior WORSE, prior showed no change prior showed resolved early NVA nasally vs post goniotomy changes OS: open to SS/CB, nasal post goniotomy changes--stable Dilated fundus exam OD: vitreous: clear optic nerve: 0.8, no edema/pallor/NVD macula: wnl vessels: wnl periphery: PRP, no RD, +RT w/ laser 3 o'clock Dilated fundus exam OS: vitreous: clear optic nerve: 0.8, no edema/pallor/NVD macula: myopic vessels: wnl periphery: [...] 4. POAG OU -on drops -followed in [facility] Dr. Liu -nasal goniotomy OU by Florinda 2016 pt delayed appoint w/ Dr. Liu 02/02 delayed; he is to reschedule w/in the next 6 months F/u 8-10 weeks dilate and OCT OU Mika Diaz DO CC: Lori Fregoso, OD CC: Dr. Liu documented in this encounter Nursing Notes * Graciela Wilder TECH - 02/21/2024 2:03 PM EDT Ronnie Wu is a 69 year old year old male who presents for DR TIWARI. Last Office Visit: 10/24/2023 (in office), Visit date not found (telemedicine) Patient currently states no change in vision. Are you diabetic? Yes. Do you check your blood sugars daily? YES. Fasting BS this mornin mg/dl. Last Hemoglobin A1C: Lab Results Component Value Date/Time HGBA1C 5.6 12/23/2023 10:35 AM HGBA1C 6.2 (H) 07/15/2023 09:22 AM HGBA1C 6.5 (H) 03/19/2023 10:09 AM HGBA1C 7.5 (H) 08/02/2020 09:46 AM HGBA1C 8.5 (H) 01/29/2020 12:36 PM HGBA1C 9.1 (H) 06/03/2019 10:[address]? yes OCT image(s) of both eyes acquired and filed/scanned into chart. documented in this encounter Plan of Treatment Upcoming Encounters Date Type Department Care Team (Late st Contact Info) Description 02/25/2024 10:45 AM EDT Office Visit Hematology/Oncology [facility] [address] [place] [phone] Fly Velazquez MD [address] [place] [address] 03/02/2024 9:00 AM EDT Laboratory Laboratory [address] [place] [phone] [address] [place] [address] 03/03/2024 10:15 AM EDT Immunization/Injectio n Hematology/Oncology Treatment, [place] [address] [place] [phone] Nurse, Med 4 [address] [place] [address] 03/27/2024 10:40 AM EDT Office Visit Family Medicine [address] [place] [phone] Marry Hansen CRNP [address] [place] [address] [place] [address] 04/21/2024 2:00 PM EDT Office Visit Cardiology [address] [place] [address] Prabhakar Henning PA-C [address] [place] [address] 04/30/2024 2:30 PM EDT Office [place] [address] [place] [address] Beckie Dunbar PA-C [address] [place] [address] 06/02/2024 10:30 AM EDT [facility] [address] [place] [phone] Dorothy Toscano CRNP [address] [place] [address] 09/18/2024 2:00 PM EST Office Visit Nephrology [address] [place] [address] Beckie Dunbar PA-C [address] [place] [address] 10/22/2024 10:00 AM EDT Office Visit [facility] [address] [place] [phone] Dorothy Toscano CRNP [address] [place] [address] Scheduled Orders Name Type Priority Associated Diagnoses Orde r Schedule RETINA SCAN DIAGNOSTIC IMAGE, POSTERIOR Procedures Routine 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) Ordered: 02/21/2024 Scheduled Procedures Name Priority Associated Diagnoses Date/Ti [...] Additional history exists CKD PHOS USE SMARTSET 76543 09/02/202408/13, 09/18/2022, 08/29/2021, Additional history exists Diabetic Eye Exam 10/23/2024 10/24/2023, , 10/09/2022, Additional history exists CKD HGB USE SMARTSET 99462 02/16/202502/16, 02/17/2024, 2024, Additional history exists Colonoscopy [...] this encounter Medical Devices Implanted Type Area Gluer Device Identifier Shelf Expiration Date Model / Serial / Lot Envista Hydrophobic Acrylic Intraocular Lens Implanted:Qty: 1 on 12/25/2016 by Raul Neely MD at OR [facility] Right: Eye [employer]OM[employer] 11/09/2018 [id number] / [id number] / [id number] Envista Mx60 +10.0 D Implanted:Qty: 1 on 01/29/2017 by Raul Neely MD at OR [facility] Left: Eye 11/09/2018 [id number] / [id number] / [id number] documented as of this encounter Visit Diagnoses Diagnosis 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 Care Teams Slasher Machine Operator Relationship Specialty Start Date End Date Nancy Ryan DO [address] [place] [address] [place] [address] PCP - General Internal Medicine 09/11/18 documented as of this encounter
--- OUTSIDE RECORDS SUMMARY | 2024-05-15 23:09 | External Medical Summary | Summary of Care ---
Author Name Unknown Organization [facility] Address [address] [place] [address] Phone [phone] Care Team Providers Care Facilitator Name Role Phone Nancy Ryan DO Primary Care Provider [phone] Reason for Visit * Reason Comments Medication Administration Retacrit 40,00 0 units * Episode Based Medications (Routine) - Authorized Specialty Diagnoses / Procedures Referred By Contac t Referred To Contact Diagnoses Anemia due to stage 3a chronic kidney disease (HCC) Procedures [place] INJ RETACRIT NON-ESRD USE Tameka Pires CRNP [address] [place] [address] Anc Hem/Onc [place] DEPT CLOSED - 06/25/23 [address] [place] [phone] Referral ID Status Reason Start Date Expiration Date V isits Requested Visits Authorized [id number] Authorized 12/10/2023 03/03/[phone] Encounter Details Date Type Department Care Team (Late st Contact Info) Description 02/04/2024 10:15 AM EDT Immunization/I njection Hematology/Oncology Treatment, [place] [address] [place] [phone] Nurse, Med 4 [address] [place] [address] Anemia due to stage 3a chronic kidney disease (HCC)* Allergies No known active allergiesdocumented as of this encounter (statuses as of 02/04/2024) Medications Medication Sig Dispensed Refills Start Date End Date Status Blood Glucose Monitoring Suppl (Bee-Line Express ULTRA SYSTEM) W/DEVICE KITIndications:DM type 2, [...] DX e11.9 100 Each 3 10/17/2021 Active Vinculum SolutionsTouch Verio In Vitro Strip (Glucose Blood) Use to test blood sugars twice a day. Dx. E11.9 300 Strip 1 03/13/2023 Active Vinculum SolutionsTouch Delica Lancets 30GIndications:Typ e 2 diabetes mellitus with diabetic neuropathy, with long-term current use of insulin ([facility]) Use TWICE a day to test glucose Diagnosis = E11.9 200 Each 3 03/19/2023 Active Epoetin Gautam-epbx 05865 UNIT/ML Injection Solution (Retacrit) Inject 2 mL [...] in the morning. 30 Tablet 12/05/2023 Active Quincy-3 Fish Oil 1000 MG Oral Capsule (Quincy-3) Take 1 Capsule by mouth in the [...] as of this encounter (statuses as of 02/04/2024) Active Problems Problem Noted Date Diagnosed Date [...] Noted on CT scan at [facility] 05/2019 Mild nonproliferative diabet ic retinopathy of [...] as of this encounter (statuses as of 02/04/2024) Resolved Problems Problem Noted Date Diagnosed Date [...] as of this encounter (statuses as of 02/04/2024) Immunizations Name Administration Dates Next Due COVID-19 mRNA, LNP-s, No Pre serve, 2-Dose Series (Pfizer) 06/20/2021,10/22/2020,09/26/2020 COVID-19, LNP-s, No Preserve , Jamie-sucrose, Ages 12+ (Pfizer) 03/13/2022 Covid-19, Mrna, Lnp-s, Pf, B ivalent, 30 Mcg, IM, 12 yrs and above (Pfizer) 09/20/2022 Pneumococcal Conjugate Vacci ne, 20-valent ([id number]) 03/14/2022 Pneumococcal Polysaccharide PPV23 (Pneumovax) 03/19/2006 Seasonal [...] Description 02/17/2024 10:30 AM EDT Laboratory Laboratory [address] [place] [phone] [place] [address] 02/18/2024 10:15 AM EDT Immunization/Injecti on Hematology/[facility]cology [facility] [place] [facility] [phone] Nurse, Med 200 [facility] [place] [address] 02/21/2024 2:00 PM EDT Office Visit Ophthalmology, [facility] [address] [place] [address] Mika Diaz, [address] [place] [address] 02/25/2024 10:45 AM EDT Office Visit Hematology[facility] [phone] Fly [facility] [address] 03/27/2024 10:40 AM EDT Office Visit Family Medicine [address] [place] [phone] [address] [place] [address] 04/21/2024 2:00 PM EDT Office Visit Cardiology [address] [place] [address] Prabhakar Henning PA-C [address] [place] [address] 04/30/2024 2:30 PM EDT Office Visit Nephrology, [place] [address] [place] [address] Beckie Dunbar PA-C [address] [place] [address] 06/02/2024 10:30 AM EDT Office Visit Sleep Disorders Ctr [facility] [place] [address] [place] [phone] Dorothy Toscano CRNP [address] [place] [address] 09/18/2024 2:00 PM EST Office Visit Nephrology [address] [place] [address] Beckie Dunbar PA-C [address] [place] [address] 10/22/2024 10:00 AM EDT Office Visit Sleep Disorders Ctr [facility] [place] [address] [place] [phone] Dorothy Toscano CRNP [address] [place] [address] Scheduled Procedures Name Priority Associated Diagnoses Date/Ti [...] 02/20/2024 023, 03/14/2022, 05/19/2021, Additional history exists HbA1c 06/24/2024 12/23/2023, 12/0 11/2022, 03/19/2023, Additional history exists GFR 08/04/2024 2024, 06, 12/23/2023, Additional history exists CKD PHOS USE SMARTSET 33100 09/02/202408/13, 09/18/2022, 08/29/2021, Additional history exists Diabetic Eye Exam 10/23/2024 10/24/2023, , 10/09/2022, Additional history exists CKD HGB USE SMARTSET 07500 02/02/202502/02, 2024, 01/20/2024, Additional history exists Colonoscopy [...] this encounter Medical Devices Implanted Type Area In Flight Refueling Craftsman Device Identifier Shelf Expiration Date Model / Serial / Lot Envista Hydrophobic Acrylic Intraocular Lens Implanted:Qty: 1 on 12/25/2016 by Raul Neely MD at OR [facility] Right: Eye [employer] 11/09/2018 [id number] / [id number] / [id number] Envista Mx60 +10.0 D Implanted:Qty: 1 on 01/29/2017 by Raul Neely MD at [facility] Left: Eye 11/09/2018 [id number] / [id number] / [id number] documented as of this encounter Visit Diagnoses Diagnosis Anemia due to stage 3a chronic kidney disease (HCC)- Primary documented in this encounter Administered Medications Inactive Administered Medications - up to 3 most recent administrations Medication Order MAR Action Action Date Dose Rate Site Epoetin Gautam-epbx (Retacrit) 56950 UNIT/ML inj 40,000 Units 40,000 Units, Subcutaneous, [...] and were consensually agreed upon. Care Teams Facilitator Relationship Specialty Start Date End Date Nancy Ryan DO [address] [place] [address] [place] [address] PCP - General Internal Medicine 09/11/18 documented as of this encounter
--- OUTSIDE RECORDS SUMMARY | 2024-05-15 23:09 | External Medical Summary ---
Author Name Unknown Address Unknown Organization [id number]:[facility] [place] [address] [facility] [address] Laboratory Report Ordering Provider Test Date Status JANE WOODRUFF 2024 10:55:32 Final Observation Date Value Abnormality Reference (Units ) Status SYNC LEUKOCYTES IN BLOOD BY AUTOMATED COUNT 2024 10:55:32 5.97 4.00-10.80 (K/uL) Final Segs 2024 10:55:32 63.3 40.0-75.0 (%) Final Lymphs % 2024 10:55:32 22.8 18.0-42.0 (%) Final Monos 2024 10:55:32 6.5 1.0-11.0 (%) Final Eosinophils 2024 10:55:32 6.4 Above high normal 0.0-6.0 (%) Final Basos 2024 10:55:32 0.8 0.0-2.0 (%) Final Immature Granulocyte, Percent 2024 10:55:32 0.2 0.0-2.0 (%) Final Absolute Segs 2024 10:55:32 3.78 1.80-7.70 (K/uL) Final Lymphs, absolute 2024 10:55:32 1.36 1.00-4.80 (K/ul) Final Monos, Abs 2024 10:55:32 0.39 0.00-1.10 (K/uL) Final Eos, Abs 2024 10:55:32 0.38 0.00-0.70 (K/uL) Final Basos, Abs 2024 10:55:32 0.05 0.00-0.20 (K/uL) Final Immature Granulocytes, Number 2024 10:55:32 0.01 0.00-0.20 (K/uL) Final Performing Location [facility] [place] [facility] [address] [facility] [id number]
--- OUTSIDE RECORDS SUMMARY | 2024-05-15 23:09 | External Medical Summary ---
Author Name Unknown Address Unknown Organization [id number]:[facility] [place] [address] [place] [address] Laboratory Report Ordering Provider Test Date Status ML MURCIA 2024 10:55:32 Final Observation Date Value Abnormality Reference (Units ) Status Folic Acid 2024 10:55:32 >20.0 >4.5 (ng/ mL) Final Performing Location [facility] [place] [address] [place] [address]
--- OUTSIDE RECORDS SUMMARY | 2024-05-15 23:09 | External Medical Summary ---
Author Name Unknown Address Unknown Organization [id number]:[facility] [place] [address] [place] [address] Laboratory Report Ordering Provider Test Date Status TWIN,BULL 2024 10:55:32 Final Observation Date Value Abnormality Reference (Units ) Status Ferritin 2024 10:55:32 457 Above high normal 30 -400 (ng/mL) Final Performing Location LABORATORY [facility] - [address] [place] [address]
--- OUTSIDE RECORDS SUMMARY | 2024-05-15 23:09 | External Medical Summary ---
Author Name Unknown Address Unknown Organization K01:[facility]ORATORY [facility] [place] - [address] [place] [address] Laboratory Report Ordering Provider Test Date Status ML MURCIA 2024 10:55:32 Final Observation Date Value Abnormality Reference (Units ) Status Vitamin B12 2024 10:55:32 4530 341-5252 (pg/mL) Final Performing Location LABORATORY [facility] [place] - [address] [place] [address]
--- OUTSIDE RECORDS SUMMARY | 2024-05-15 23:09 | External Medical Summary | Summary of Care ---
Author Name Unknown Organization [facility] Address [address] [place] [address] Phone [phone] Care Team Providers Care Outreach Liaison Name Role Phone Nancy Ryan DO Primary Care Provider Reason for Visit * Reason Comments Medication Administration Retacrit 40,00 0 units * Episode Based Medications (Routine) - Authorized Specialty Diagnoses / Procedures Referred By Contac t Referred To Contact Diagnoses Anemia due to stage 3a chronic kidney disease (HCC) Procedures [place] INJ RETACRIT NON-ESRD USE Tameka Pires CRNP [address] [place] [address] Anc Hem/Onc [place] DEPT CLOSED - 06/25/23 [address] [place] [address] Referral ID Status Reason Start Date Expiration Date V isits Requested Visits Authorized [id number] Authorized 12/10/2023 03/03/[phone] Encounter Details Date Type Department Care Team (Late st Contact Info) Description 02/04/2024 10:15 AM EDT Immunization/I njection Hematology/Oncology Treatment, [place] [address] [place] [address] Nurse, Med 4 [address] [place] [address] Anemia due to stage 3a chronic kidney disease (HCC)* Allergies No known active allergiesdocumented as of this encounter (statuses as of 02/14/2024) Medications Medication Sig Dispensed Refills Start Date End Date Status Blood Glucose Monitoring Suppl (SLEDVision ULTRA SYSTEM) W/DEVICE KITIndications:DM type 2, goal [...] hemoglobin A1c goal of less than 7.0% ([facility]) Use once a day with basaglar. DX e11.9 100 Each 3 10/17/2021 Active Upfront Digital MediaTouch Verio In Vitro Strip (Glucose Blood) Use to test blood sugars twice a day. Dx. E11.9 300 Strip 1 03/13/2023 Active Upfront Digital MediaTouch Delica Lancets 30GIndications:Typ e 2 diabetes mellitus with diabetic neuropathy, with long-term current use of insulin ([facility]) Use TWICE a day to test glucose Diagnosis = E11.9 200 Each 3 03/19/2023 Active Epoetin Gautam-epbx 54051 UNIT/ML Injection Solution (Retacrit) Inject 2 mL [...] in the morning. 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 [...] as of this encounter (statuses as of 02/14/2024) Immunizations Name Administration Dates Next Due COVID-19 mRNA, LNP-s, No Pre serve, 2-Dose Series (Pfizer) 06/20/2021,10/22/2020,09/26/2020 COVID-19, LNP-s, No Preserve , Jamie-sucrose, Ages 12+ (Pfizer) 03/13/2022 Covid-19, Mrna, Lnp-s, Pf, B ivalent, 30 Mcg, IM, 12 yrs and above (Pfizer) 09/20/2022 Pneumococcal Conjugate Vacci ne, 20-valent ([id number]) 03/14/2022 Pneumococcal Polysaccharide PPV23 (Pneumovax) 03/19/2006 Seasonal [...] in this encounter Nursing Notes * Elizabeth Grififth LPN - 02/04/2024 10:52 AM EDT Retacrit [...] Description 02/17/2024 10:30 AM EDT Laboratory Laboratory [address] [place] [phone] [place] [address] 02/18/2024 10:15 AM EDT Immunization/Injecti on Hematology/[facility]cology [facility], [place] [facility] [phone] Nurse, Med 200 [facility] [place] [address] 02/21/2024 2:00 PM EDT Office Visit Ophthalmology, [facility] [address] [place] [address] Mika Diaz, [address] [place] [address] 02/25/2024 10:45 AM EDT Office Visit Hematology/Oncology [facility] [phone] Fly Velazquez MD [facility] [address] 03/27/2024 10:40 AM EDT Office Visit Family Medicine [address] [place] [phone] [address] [place] [address] 04/21/2024 2:00 PM EDT Office Visit Cardiology [address] [place] [address] Prabhakar Henning PA-C [address] [place] [address] 04/30/2024 2:30 PM EDT Office Visit Nephrology, [place] [address] [place] [address] Beckie Dunbar PA-C [address] [place] [address] 06/02/2024 10:30 AM EDT Office Visit Sleep Disorders Ctr Manny Browne [place] [address] [place] [phone] Dorothy Toscano CRNP [address] [place] [address] 09/18/2024 2:00 PM EST Office Visit Nephrology [address] [place] [address] Beckie Dunbar PA-C [address] [place] [address] 10/22/2024 10:00 AM EDT Office Visit Sleep Disorders Ctr Manny Browne [place] [address] [place] [phone] Dorothy Toscano CRNP [address] [place] [address] Scheduled Procedures Name Priority Associated Diagnoses Date/Ti [...] Additional history exists CKD PHOS USE SMARTSET 28224 09/02/202408/13, 09/18/2022, 08/29/2021, Additional history exists Diabetic Eye Exam 10/23/2024 10/24/2023, , 10/09/2022, Additional history exists CKD HGB USE SMARTSET 53709 02/02/202502/02, 2024, 01/20/2024, Additional history exists Colonoscopy 02/09/2027 02/09/2022, 08/14, 12/07/2008 Colorectal Cancer Screening 02/09/2027 Lipid Panel 02/11/2028 02/10/2023, 08/10/2021, 05/19/2021, Additional [...] this encounter Medical Devices Implanted Type Area Tow Picker Device Identifier Shelf Expiration Date Model / Serial / Lot Envista Hydrophobic Acrylic Intraocular Lens Implanted:Qty: 1 on 12/25/2016 by Raul Neely MD at OR [facility] Right: Eye [employer] 11/09/2018 [id number] / [id number] / [id number] Envista Mx60 +10.0 D Implanted:Qty: 1 on 01/29/2017 by Raul Neely MD at OR [facility] Left: Eye 11/09/2018 [id number] / [id number] / [id number] documented as of this encounter Visit Diagnoses Diagnosis Anemia due to stage 3a chronic kidney disease (HCC)- Primary documented in this encounter Administered Medications Inactive Administered Medications - up to 3 most recent administrations Medication Order MAR Action Action Date Dose Rate Site Epoetin Gautam-epbx (Retacrit) 40884 UNIT/ML inj 40,000 Units 40,000 Units, Subcutaneous, [...] and were consensually agreed upon. Care Teams Outreach Liaison Relationship Specialty Start Date End Date Nancy Ryan DO [address] [place] [address] [place] [address] PCP - General Internal Medicine 09/11/18 documented as of this encounter
--- OUTSIDE RECORDS SUMMARY | 2024-05-15 23:09 | External Medical Summary ---
Author Name Unknown Address Unknown Organization K01:[facility] [place] [address] [facility] [address] Laboratory Report Ordering Provider Test Date Status ML MURCIA 2024 10:55:32 Final Observation Date Value Abnormality Reference (Units ) Status BUN 2024 10:55:32 49 Above high normal 6-20 (mg/dL) Final Creatinine 2024 10:55:32 1.8 Above high normal 0.6-1.2 (mg/dL) Final Glomerular filtration rate/1.73 sq M.predicted [Volume Rate/Area] in Serum, Plasma or Blood by Creatinine-based formula (CKD-EPI) 2024 10:55:32 42 Below low normal >=60 (mL/min) Final eGFR is calculated based on the CKD-EPI 2020 equation Sodium 2024 10:55:32 139 135-146 (m mol/L) Final Potassium 2024 10:55:32 4.6 3.5-5.1 (m mol/L) Final Cl 2024 10:55:32 106 98-107 (mm ol/L) Final CO2 2024 10:55:32 22 22-32 (mmo l/L) Final Anion gap 2024 10:55:32 11 7-15 (mmol /L) Final Glucose 2024 10:55:32 186 Above high normal 70 -120 (mg/dL) Final Albumin 2024 10:55:32 3.7 Below low normal 3.8 -5.0 (g/dL) Final AST (Aspartate aminotransferase) 2024 10:55:32 19 10-50 (U/L) Fin al Alk Phos 2024 10:55:32 104 35-130 (U/ L) Final Bilirubin, Total 2024 10:55:32 0.5 <=1 .2 (mg/dL) Final Calcium 2024 10:55:32 9.0 8.4-10.2 ( mg/dL) Final Protein 2024 10:55:32 6.9 6.0-8.3 (g /dL) Final ALT (Alanine aminotransferase) 2024 10:55:32 17 10-50 (U/L) [place] white Performing Location [facility] [place] [address] [facility] [address]
--- OUTSIDE RECORDS SUMMARY | 2024-05-15 23:09 | External Medical Summary | Summary of Care ---
Author Name Unknown Organization [facility] Address [address] [place] [address] Phone [phone] Care Team Providers Care Missile Mechanic Name Role Phone Nancy Ryan DO Primary Care Provider Reason for Visit * Reason Onset Date Comments Home Health 01/31/2024 Encounter Details Date Type Department Care Team (Late st Contact Info) Description 01/31/2024 Telephone Family Medicine [address] [phone] Nancy Ryan DO [address] [place] [address] [place] [address] Home Health Allergies No known active allergiesdocumented as of this encounter (statuses as of 01/31/2024) Medications Medication Sig Dispensed Refills Start Date End Date Status Blood Glucose Monitoring Suppl ([employer]UCH ULTRA SYSTEM) W/DEVICE KITIndications:DM type 2, goal [...] 200 Each 3 03/19/2023 Active Epoetin Gautam-epbx 61439 UNIT/ML Injection Solution (Retacrit) Inject 2 mL [...] in the morning. 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 [...] as of this encounter (statuses as of 01/31/2024) Immunizations Name Administration Dates Next Due COVID-19 mRNA, LNP-s, No Pre serve, 2-Dose Series (Knowta) 06/20/2021,10/22/2020,09/26/2020 COVID-19, LNP-s, No Preserve , Jamie-sucrose, Ages 12+ (Knowta) 03/13/2022 Covid-19, Mrna, Lnp-s, Pf, B ivalent, 30 Mcg, IM, 12 yrs and above (Knowta) 09/20/2022 Pneumococcal Conjugate Vacci ne, 20-valent ([id number]) 03/14/2022 Pneumococcal Polysaccharide PPV23 (Pneumovax) 03/19/2006 Seasonal [...] Telephone Encounter - Britney Griffith LPN - 01/31/2024 1:46 PM EDT I called pt- Pt is agreeable to going to the ER. Will call for follow up. * Telephone Encounter - Nancy Ryan DO - 01/31/2024 1:40 PM EDT I would recommend ER evaluation if he has maggots in his wound. Notify pt * Telephone Encounter - Roma Laura LPN - 01/31/2024 12:15 PM EDT Home Health Concern and Recertification: Pam saw patient today Requesting recert for wound assessment 1 x per week Pam VARMA, Calling from: [facility] Report/Concerns of: Maggots in right leg wound Symptoms: See below Vitals: T 97.8 P 70 RR 18 BP 132/72 SP O2 98% R/A Lung sounds - Clear Weight - N/A Blood sugar - N/A Narrative: Right leg wound dressing removed and it was full of maggots. Cleansed wound with white vinegar, Prabha dish soap and water. Then applied Iodine to wound. Dressing applied then and told patient to change it again later today to check area for any more maggots. She states that wound looks good. Patient had been outside yesterday, most likely how he ended up with the maggots. Asking if patient should be evaluated at Next nursing visit will be next Saturday and Saturday - will see 2 times next week for follow up Call back PATIENT with advice or orders Please fax orders to [facility] documented in this encounter Plan of Treatment Upcoming Encounters Date Type Department Care Team (Late st Contact Info) Description 2024 10:30 AM EDT Laboratory Laboratory [address] [place] [phone] [place] [address] 02/04/2024 10:15 AM EDT Immunization/Injecti on Hematology/Oncology Treatment, [address] [phone] Nurse, Med 4 [address] [facility] [place] [address] 02/17/2024 10:30 AM EDT Laboratory Laboratory [address] [place] [phone] [address] [place] [address] 02/18/2024 10:15 AM EDT Immunization/Injecti on Hematology/Oncology Treatment, [address] [place] [phone] Nurse, Med 4 [address] [facility] [place] [address] 02/21/2024 2:00 PM EDT Office Visit Ophthalmology, [facility] [address] [place] [address] Mika Diaz, [address] [place] [address] 02/25/2024 10:45 AM EDT Office Visit Hematology/Oncology [facility] [address] [facility] [place] [phone] Fly Velazquez MD [address] [place] [address] 03/27/2024 10:40 AM EDT Office Visit Family Medicine [address] [place] [phone] Marry Hansen [address] [place] [address] 04/21/2024 2:00 PM EDT Office Visit Cardiology [address] [place] [address] Prabhakar Henning PA-C [address] [place] [address] 04/30/2024 2:30 PM EDT Office Visit Nephrology [facility] [address] [facility] [place] [address] Beckie Dunbar PA-C [address] [place] [address] 06/02/2024 10:30 AM EDT [facility] [address] [place] [phone] Dorothy Toscano CRNP [address] [place] [address] 09/18/2024 2:00 PM EST Office Visit Nephrology [address] [place] [address] Beckie Dunbar PA-C [address] [place] [address] 10/22/2024 10:00 AM EDT Office Visit [facility] [address] [place] [phone] Dorothy Toscano CRNP [address] [place] [address] Scheduled Procedures Name Priority Associated Diagnoses Date/Ti [...] 12/0 11/2022, 03/19/2023, Additional history exists GFR 07/21/2024 01/20/2024, 0510/2023, 12/02/2023, Additional history exists CKD PHOS USE SMARTSET 35697 09/02/202408/13, 09/18/2022, 08/29/2021, Additional history exists Diabetic Eye Exam 10/23/2024 10/24/2023, , 10/09/2022, Additional history exists CKD HGB USE SMARTSET 41123 01/19/202501/19, 01/20/2024, 01/07/2024, Additional history exists Colonoscopy 02/09/2027 02/09/2022, 08/14, [...] encounter Medical Devices Implanted Type Area System Developer Associate Manager Device Identifier Shelf Expiration Date Model / Serial / Lot Envista Hydrophobic Acrylic Intraocular Lens Implanted:Qty: 1 on 12/25/2016 by Raul Neely MD at OR [facility] Right: Eye [employer]OM[employer] 11/09/2018 [id number] / [id number] Envista Mx60 +10.0 D Implanted:Qty: 1 on 01/29/2017 by Raul Neely MD at OR [facility] Left: Eye 11/09/2018 [id number] / [id number] documented as of this encounter Advance Directives [...] and were consensually agreed upon. Care Teams Missile Mechanic Relationship Specialty Start Date End Date Nancy Ryan DO [address] [place] [address] [place] [address] PCP - General Internal Medicine 09/11/18 documented as of this encounter
--- OUTSIDE RECORDS SUMMARY | 2024-05-15 23:09 | External Medical Summary | Summary of Care ---
Author Name Unknown Organization [facility] Address [address] [place] [address] Phone [phone] Care Team Providers Care Taxation Agent Name Role Phone Shelby Nancy Muro Primary Care Provider Reason for Visit * Reason Onset Date Comments Home Monitoring Orders Only 06/26/2023 Encounter Details Date Type Department Care Team (Late st Contact Info) Description 06/26/2023 Home Monitoring Nephrology, [facility] [address] [place] [address] Alejandrina [place] MD [address] [place] [address] HTN, goal below 130/80* Allergies No known active allergiesdocumented as of this encounter (statuses as of 02/05/2024) Medications Medication Sig Dispensed Refills Start Date End Date Status Blood Glucose Monitoring Suppl ([employer] PowerUCH ULTRA SYSTEM) W/DEVICE KITIndications:DM type 2, goal [...] hemoglobin A1c goal of less than 7.0% ([facility]) Use once a day with basaglar. DX e11.9 100 Each 3 10/18/19 Active OneTouch Verio In Vitro Strip (Glucose Blood) Use to test blood sugars twice a day. Dx. E11.9 300 Strip 1 03/13/20 Active OneTouch Delica Lancets 30GIndications:Ty pe 2 diabetes mellitus with diabetic neuropathy, with long-term current use of insulin ([facility]) Use TWICE a day to test glucose Diagnosis = E11.9 200 Each 3 03/19/20 Active Epoetin Gautam-epbx 47409 UNIT/ML Injection Solution (Retacrit) Inject 2 mL intravenously once. Every two weeks Active MULTIPLE VITAMIN PO TABS 1 TABLET DAILY 0 07/03/20 11 024 Discontinued(Re fill) OMEGA-3 FISH OIL 1000 MG PO CAPS Take one capsule by mouth daily 0 07/03/20 11 024 Discontinued(Re fill) VITAMIN B-12 1000 MCG PO TABSIndications:V itamin B12 deficiency 1 TABLET DAILY 90 Tab 1 07/19/20 14 023 Discontinued(Me dication List Clean Up) dorzolamide-timol ol (COSOPT OCUMETER PLUS) 2.23-0.68% ophthalmic solution INSTILL 1 DROP INTO BOTH EYES BY OPHTHALMIC ROUTE ONCE IN THE MORING AND THE SECOND DROP AROUND 5 PM 4 10/28/19 19 024 Discontinued(Re fill) Aspirin 81 MG Tablet Take 1 Tablet by mouth in the morning. 024 Discontinued(Me dication List Clean Up) Rhopressa 0.02 % Ophthalmic Solution Instill 1 Drop into the left eye at bedtime. 05/17/20 22 024 Discontinued(Re fill) Vitamin C 1000 MG Oral Tablet Take 1 Tablet by mouth in the morning. 024 Discontinued(Me dication/Dose Changed) Warfarin Sodium 5 MG Oral Tablet (Coumadin)Indicat ions:History of DVT (deep vein thrombosis),Antic oagulation management encounter,shelter current use of anticoagulant therapy Take 5 mg (1 tablet)by mouth daily or as directed by anticoagulation clinic 100 Tablet 3 10/16/19 23 024 Discontinued(Me dication List Clean Up) Allopurinol 300 MG Oral Tablet (Zyloprim) TAKE 1 TABLET BY MOUTH EVERY DAY 90 Tablet 3 12/11/19 23 024 Discontinued(Me dication/Dose Changed) Carvedilol 6.25 MG Oral Tablet (Coreg) TAKE 1 TABLET BY MOUTH TWICE A DAY WITH BREAKFAST AND DINNER 180 Tablet 3 12/11/19 23 024 Discontinued Insulin Glargine Solostar 100 UNIT/ML Subcutaneous Solution Pen-injector (Basaglar KwikPen)Indicatio ns:Type 2 diabetes mellitus with diabetic neuropathy, with long-term current use of insulin (HCC) Inject 48 Units under the skin in the morning. 45 mL 3 02/28/20 23 024 Discontinued(Re fill) Acetic Acid 0.25 % Irrigation Solution Apply to legs as directed by the wound clinic. 1000 mL 2 03/01/20 23 024 Discontinued Ozempic (2 MG/DOSE) 8 MG/3ML Subcutaneous Solution Pen-injector (Semaglutide (2 MG/DOSE))Indicati ons:Type 2 diabetes mellitus with diabetic neuropathy, with long-term current use of insulin (HCC) Inject 2 mg under the skin once a week. DX E11.9 Diabetes Mellitus 3 mL 5 03/26/20 23 024 Discontinued(Re fill) Atorvastatin Calcium 20 MG Oral Tablet (Lipitor)Indicati ons:Dyslipidemia, goal LDL below 70 TAKE 1 TABLET BY MOUTH EVERY DAY IN THE MORNING 90 Tablet 05/09/20 23 024 Discontinued(Re fill) Allopurinol 100 MG Oral Tablet (Zyloprim)Indicat ions:Acute gout of right wrist, unspecified cause Take 1 Tablet by mouth in the morning. Take 1 tablet by mouth in the morning in addition to 300 mg tablet for a total dose of 400 mg.. 90 Tablet 3 05/17/20 23 024 Discontinued metFORMIN HCl 500 MG Oral Tablet (Glucophage)Indic ations:Type 2 diabetes mellitus with diabetic neuropathy, with long-term current use of insulin (HCC) Take 1 Tablet by mouth 2 times a day with morning and evening meals. 180 Tablet 3 05/17/20 23 024 Discontinued(Me dication List Clean Up) Sodium Bicarbonate 650 MG Oral Tablet Take 2 Tablets by mouth in the morning and 2 Tablets at noon and 2 Tablets in the evening and 2 Tablets before bedtime. 60 Tablet 5 06/04/20 23 024 Discontinued Losartan Potassium 50 MG Oral Tablet (Cozaar) Take 0.5 Tablets by mouth in the morning. 06/04/20 23 024 Discontinued Torsemide 20 MG Oral Tablet (Demadex) Take 1 Tablet by mouth in the morning. 30 Tablet 5 06/04/20 23 023 Discontinued(Re fill) Hospital, Clinic, or [...] as of this encounter (statuses as of 02/05/2024) Active Problems Problem Noted Date Diagnosed Date [...] as of this encounter (statuses as of 02/05/2024) Resolved Problems Problem Noted Date Diagnosed Date [...] as of this encounter (statuses as of 02/05/2024) Immunizations Name Administration Dates Next Due COVID-19 mRNA, LNP-s, No Pre serve, 2-Dose Series ([employer] 06/20/2021,10/22/2020,09/26/2020 COVID-19, LNP-s, No Preserve , Jamie-sucrose, Ages 12+ (Pfizer) 03/13/2022 Covid-19, Mrna, Lnp-s, Pf, B ivalent, 30 Mcg, IM, 12 yrs and above (Pfizer) 09/20/2022 Pneumococcal Conjugate Vacci ne, 20-valent ([id number]) 03/14/2022 Pneumococcal Polysaccharide PPV23 (Pneumovax) 03/19/2006 Seasonal [...] Progress Notes * Ebony Grant, Community Health Instructor Knitting - 06/26/2023 10:14 AM EST Patient has been successfully enrolled to the [id number] Hypertension Management program and provided with Bluetooth [...] urgent symptoms, they are aware to call office/mental health consultant provider for additional instructions. In emergency situations, they will report directly to the ED for further evaluation. Referral has been placed to [facility] Pharmacist for participation per protocol. If you would like to customize the alert parameters and/or instructions for this patient, please let me know and we can have them changed. documented in this encounter Plan of Treatment Upcoming Encounters Date Type Department Care Team (Late st Contact Info) Description 02/17/2024 10:30 AM EDT Laboratory Laboratory [address] [place] [phone] [place] [address] 02/18/2024 10:15 AM EDT Immunization/Injecti on Hematology/Oncology Treatment, [address] [phone] Nurse, Med 4 [address] [facility] [place] [address] 02/21/2024 2:00 PM EDT Office Visit Ophthalmology, [facility] [address] [place] [address] Mika Diaz DO [address] [place] [address] 02/25/2024 10:45 AM EDT Office Visit Hematology/Oncology [address] [place] [phone] Fly Velazquez MD [address] [facility] [place] [address] 03/27/2024 10:40 AM EDT Office Visit Family Medicine [address] [place] [phone] Marry Hansen CRNP [address] [place] [address] [place] [address] 04/21/2024 2:00 PM EDT Office Visit Cardiology [address] [place] [address] Prabhakar Henning PA-C [address] [place] [address] 04/30/2024 2:30 PM EDT Office Visit Nephrology, [facility] [address] [place] [address] ZeBeckie cruz PA-C [address] [place] [address] 06/02/2024 10:30 AM EDT Office Visit [facility] Ctr [facility] [place] [address] [place] [phone] Dorothy Toscano CRNP [address] [place] [address] 09/18/2024 2:00 PM EST Office Visit Nephrology [address] [place] [address] ZeBeckie cruz PA-C [address] [place] [address] 10/22/2024 10:00 AM EDT Office Visit [facility] Ctr M[facility] [place] [address] [place] [phone] Dorothy Toscano CRNP [address] [place] [address] Scheduled Procedures Name Priority Associated Diagnoses Date/Ti [...] Additional history exists CKD PHOS USE SMARTSET 15297 09/02/202408/13, 09/18/2022, 08/29/2021, Additional history exists Diabetic Eye Exam 10/23/2024 10/24/2023, , 10/09/2022, Additional history exists CKD HGB USE SMARTSET 34351 02/02/202502/02, 2024, 01/20/2024, Additional history exists Colonoscopy [...] this encounter Medical Devices Implanted Type Area [address] Justice Device Identifier Shelf Expiration Date Model / Serial / Lot Envista Hydrophobic Acrylic Intraocular Lens Implanted:Qty: 1 on 12/25/2016 by Raul Neely MD at OR [facility] Right: Eye [employer] 11/09/2018 [id number] / [id number] Envista Mx60 +10.0 D Implanted:Qty: 1 on 01/29/2017 by Raul Neely MD at OR [facility] Left: Eye 11/09/2018 [id number] / [id number] documented as of this encounter Visit Diagnoses [...] and were consensually agreed upon. Care Teams Taxation Agent Relationship Specialty Start Date End Date Nancy Ryan DO [address] [place] [address] [place] [phone] PCP - General Internal Medicine 09/11/18 documented as of this encounter
--- OUTSIDE RECORDS SUMMARY | 2024-05-15 23:09 | External Medical Summary | Summary of Care ---
Author Name Unknown Organization [facility] Address [address] [place] [address] Phone [phone] Care Team Providers Care Education Reporter Name Role Phone Nancy Ryan DO Primary Care Provider Reason for Visit * Reason Onset Date Comments Home Monitoring Alarm 02/12/2024 Encounter Details Date Type Department Care Team (Late st Contact Info) Description 02/12/2024 Home Monitoring Care Coordination [address] [place], [place] [id number] Diane Hernandez LPN HTN, goal below 140/90* Allergies No known active allergiesdocumented as of this encounter (statuses as of 02/12/2024) Medications Medication Sig Dispensed Refills Start Date [...] 200 Each 3 03/19/2023 Active Epoetin Gautam-epbx 42483 UNIT/ML Injection Solution (Retacrit) Inject 2 mL [...] in the morning. 30 Tablet 12/05/2023 Active [employer]-3 Fish Oil 1000 MG Oral Capsule ([employer]) Take 1 Capsule by mouth in the [...] as of this encounter (statuses as of 02/12/2024) Active Problems Problem Noted Date Diagnosed Date [...] Overview: Non-obstructive. 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 03/16/2005 [...] as of this encounter (statuses as of 02/12/2024) Immunizations Name Administration Dates Next Due COVID-19 mRNA, LNP-s, No Pre serve, 2-Dose Series ([employer]) 06/20/2021,10/22/2020,09/26/2020 COVID-19, LNP-s, No Preserve , Jamie-sucrose, Ages 12+ (Pfizer) 03/13/2022 Covid-19, Mrna, Lnp-s, Pf, B ivalent, 30 Mcg, IM, 12 yrs and above (HackerRank) 09/20/2022 Pneumococcal Conjugate Vacci ne, 20-valent ([id number]) 03/14/2022 Pneumococcal Polysaccharide PPV23 (Pneumovax) 03/19/2006 Seasonal [...] as of this encounter Progress Notes * Samina Jena Mary Ellen, [facility] - 02/12/2024 11:28 AM EDT 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 Blood Pressure Goal: 140/90 mmHg Type of Alert: Yellow Current Hypertension Medications: Torsemide 20mg daily Losartan 25mg daily (restarted 01/08/24) Carvedilol 6.25mg BID Previous antihypertensive use: n/a Experiencing symptoms related to elevated BP: No BP Readings from Last 3 Encounters: 02/04/24 149/64 01/21/24 142/79 01/08/24 146/69 Pulse Readings from Last 3 Encounters: 01/08/24 60 01/01/24 74 12/20/23 68 Recent Labs Units 02/03/24 1055 01/20/24 1040 12/23/23 1035 SODIUM - [facility] mmol/L 139 138 138 POTASSIUM - [facility] mmol/L 4.6 4.8 4.4 CHLORIDE - [facility] mmol/L 106 105 104 CO2 - [facility] mmol/L 22 20* 21* CREATININE - [facility] mg/dL 1.8* 1.9* 1.9* BUN - [facility] mg/dL 49* 65* 52* ASSESSMENT & PLAN: Systolic Diastolic Pulse Systolic Diastolic 148 79 Average 146 80 158 73 135 81 High 88 88 158 88 Low 73 73 130 86 160 84 Range 15 15 139 73 Count 8 8 139 76 02/04/24 02/05/24 02/06/24 02/07/24 02/08/24 07:04 02/09/24 06:52 02/10/24 02/11/24 10:26 02/12/24 10:06 Systolic BP 153 mm/Hg (H) [1] 139 mm/Hg [1] 139 mm/Hg [1] 160 mm/Hg (H) [1] 130 mm/Hg [1] 158 mm/Hg(H) [1] 135 mm/Hg [1] 158 mm/Hg (H) [1] 148 mm/Hg (H) [1] Diastolic BP 78 mm/Hg [1] 76 mm/Hg [1] 73 mm/Hg [1] 84 mm/Hg [1] 89 mm/Hg [1] 88 mm/Hg [1] 81 mm/Hg[1] 73 mm/Hg [1] 79 mm/Hg [1] Pulse 68 bpm [1] 71 bpm [1] 71 bpm [1] 66 bpm [1] 70 bpm [1] 66 bpm [1] 74 bpm [1] 71 bpm [1] 87 bpm [1] Note: Showing the most recent values for these dates. There are additional values that can be seen in Synopsis. (H): Data is abnormally high [1] CH:VITAL_READING_TYPE=SPOT CH:PERIPHERAL_BRAND=[facility] BP averages reviewed as well as chart review. Patient struggling with leg wound. Likely contributing to elevated readings. Will plan to continue to monitor at this time. Jena Haas [facility] Clinical Pharmacist - Environmental Research Project Manager Medication Therapy Management [facility] 02/12/2024, 11:28 AM * Diane Hernandez LPN - 02/12/2024 10:17 AM EDT Ronnie Teran Jazmin [phone] Ronnie A Jazmin is currently participating in the [employer] Hypertension Management Program and had areading on 02/12/24 of 148/79. Pt has alerted for an Average BP [...] Description 02/17/2024 10:30 AM EDT Laboratory Laboratory [address] [place] [phone] [place] [address] 02/18/2024 10:15 AM EDT Immunization/Injecti on Hematology[facility]cology Treatment[facility] [place] [facility] [phone] Nurse, Med [address] [facility] [place] [address] 02/21/2024 2:00 PM EDT Office Visit Ophthalmology, [facility] [address] [place] [address] Mika Diaz, [address] [place] [address] 02/25/2024 10:45 AM EDT Office Visit Hematology/Oncology [facility] [address] [facility] [place] [phone] Fly Velazquez MD [address] [facility] [place] [address] 03/27/2024 10:40 AM EDT Office Visit Family Medicine [address] [place] [phone] Marry Hansen [address] [place] [address] 04/21/2024 2:00 PM EDT Office Visit Cardiology [address] [place] [address] Prabhakar Henning PA-C [address] [place] [address] 04/30/2024 2:30 PM EDT Office Visit Nephrology, [place] [address] [place] [address] Beckie Dunbar PA-C [address] [place] [address] 06/02/2024 10:30 AM EDT Office Visit Sleep Disorders Ctr Manny Browne [place] [address] [place] [phone] Dorothy Toscano CRNP [address] [place] [address] 09/18/2024 2:00 PM EST Office Visit Nephrology [address] [place] [address] Beckie Dunbar PA-C [address] [place] [address] 10/22/2024 10:00 AM EDT Office Visit Sleep Disorders Ctr Manny Browne, [place] [address] [place] [phone] Dorothy Toscano CRNP [address] [place] [address] Scheduled Procedures Name Priority Associated Diagnoses Date/Ti [...] Additional history exists CKD PHOS USE SMARTSET 84208 09/02/202408/13, 09/18/2022, 08/29/2021, Additional history exists Diabetic Eye Exam 10/23/2024 10/24/2023, , 10/09/2022, Additional history exists CKD HGB USE SMARTSET 72837 02/02/202502/02, 2024, 01/20/2024, Additional history exists Colonoscopy [...] this encounter Medical Devices Implanted Type [employer] [place] [employer] Device Identifier Shelf Expiration Date Model / Serial / Lot Envista Hydrophobic Acrylic Intraocular Lens Implanted:Qty: 1 on 12/25/2016 by Raul Neely MD at OR [facility] Right: Eye [employer] 11/09/2018 [id number] / [id number] / [id number] Envista Mx60 +10.0 D Implanted:Qty: 1 on 01/29/2017 by Raul Neely MD at OR [facility] Left: Eye 11/09/2018 [id number] / [id number] documented as of this encounter Visit Diagnoses [...] and were consensually agreed upon. Care Teams Education Reporter Relationship Specialty Start Date End Date Nancy Ryan DO [address] [place] [address] [place] [phone] PCP - General Internal Medicine 09/11/18 documented as of this encounter
[2024-05-16] MEDS ORDERED: DEXTROSE 50% 50 ML SYRINGE IV PRN (00:29)
[2024-05-16] MEDS ORDERED: CARBOHYDRATES FOR HYPOGLYCEMIA PO PRN (00:29)
[2024-05-16] MEDS ORDERED: GLUCAGON FOR INJ 1 MG VIAL SQ PRN (00:29)
[2024-05-16] MEDS ORDERED: GLUCOSE 10 TAB/TUBE PO PRN (00:29)
[2024-05-16] MEDS ORDERED: GLUCOSE 40% GEL 15 GM TUBE PO PRN (00:29)
[2024-05-16] MEDS: INSULIN ASPART PER UNIT CHARGE SC SCH (00:52)
[2024-05-16] MEDS: carvediloL 6.25 MG TAB PO SCH (00:58)
[2024-05-16] MEDS: DORZOLAMIDE/TIMOLOL 22.3/6.8MG/ML 10 ML BTL OPB SCH (00:58)
[2024-05-16] MEDS: MELATONIN 3 MG TAB PO PRN (00:58)
[2024-05-16] MEDS: MAGNESIUM SULFATE / D5W 1 GM/100 ML BAG IV ONE (01:00)
[2024-05-16] MEDS: oxyCODONE HCL IR 5 MG TAB (IMMEDIATE RELEASE) PO PRN (02:52)
--- NOTE | 2024-05-16 03:12 | CT Scan Report ---
Exam(s): CT LEFT FOOT Without Contrast EXAM: CT Left Lower Extremity Without Intravenous Contrast, Foot CLINICAL HISTORY: swelling. TECHNIQUE: Axial computed tomography images of the left foot without intravenous contrast. CTDI is 24.91 mGy and DLP is 569.37 mGy-cm. Automated exposure control was utilized for the study. A dose lowering technique was utilized adhering to the principles of ALARA. COMPARISON: X-ray left foot 05/15/2024. FINDINGS: Diffuse subcutaneous soft tissue swelling surrounding the left ankle and foot. Cutaneous defect with interstitial gas underlying the plantar aspect of the distal aspect of the fifth metatarsal. No associated radiopaque foreign body. No definite bone erosion or destruction. Fractured appearing ossicle underlying the fifth digit distal metatarsal. No other fracture. No dislocation. Multifocal degenerative changes. Deformity of the proximal phalanx of the first digit consistent with an old fracture. Extensive vascular calcifications. Small posterior calcaneal bone spur. IMPRESSION: Diffuse edema/cellulitis. Gas the plantar soft tissues overlying the distal fifth metatarsal consistent with infection/ulceration. Limited by lack of contrast material. No definite focal phlegmon or abscess. No definite underlying osteomyelitis. Correlation with MRI is recommended for most sensitive evaluation for osteomyelitis. Fracture of a secondary ossicle adjacent to the distal fifth metatarsal. Extensive vascular calcifications. Electronically signed by: Jerome Andrade M.D. 05/16/24 03:11 AM
[2024-05-16] MEDS: PIPERACILLIN/TAZOBACTAM 4.5 GM/100 ML BAG IV SCH (03:46)
--- OUTSIDE RECORDS SUMMARY | 2024-05-16 04:52 | External Medical Summary | Summary of Care ---
Author Name Unknown Organization [facility] Address [address] [place] [address] Phone [phone] Care Team Providers Care Flat Bed Operator Name Role Phone Nancy Ryan DO Primary Care Provider [phone] Reason for Visit * Reason Onset Date Comments Home Health 05/14/2024 BLE wound, S/S c ellulitis Encounter Details Date Type Department Care Team (Late st Contact Info) Description 05/14/2024 Telephone Family Medicine [address] [place] [phone] Nancy Ryan DO [address] [place] [address] [place] [address] Home Health (BLE wound, S/S cellulitis) Allergies No known active allergiesdocumented as of this encounter (statuses as of 05/15/2024) Medications Medication Sig Dispensed Refills Start Date [...] neuropathy, with long-term current use of insulin ([facility]),Type 2 diabetes mellitus with hemoglobin [...] neuropathy, with long-term current use of insulin ([facility]) Use TWICE a day to test glucose Diagnosis = E11.9 200 Each 3 03/19/2023 Active Epoetin Gautam-epbx 57635 UNIT/ML Injection Solution (Retacrit) Inject 2 mL [...] Additional Information Patient not taking.Reported on 04/30/2024 [place]-3 Fish Oil 1000 MG Oral Capsule ([place]-3) Take 1 Capsule by mouth in the [...] as of this encounter (statuses as of 05/15/2024) Active Problems Problem Noted Date Diagnosed Date [...] as of this encounter (statuses as of 05/15/2024) Resolved Problems Problem Noted Date Diagnosed Date [...] as of this encounter (statuses as of 05/15/2024) Immunizations Name Administration Dates Next Due COVID-19 mRNA, LNP-s, No Pre serve, 2-Dose Series (Pfizer) 06/20/2021,10/22/2020,09/26/2020 COVID-19, LNP-s, No Preserve , Jamie-sucrose, Ages 12+ (Pfizer) 03/13/2022 COVID-19, MRNA-LNP, 24-25, P F, 50 MCG/0.5ML, IM, 12 YRS & ABOVE (Moderna - Spikevax) 05/08/2024 Covid-19, Mrna, Lnp-s, Pf, B ivalent, 30 Mcg, IM, 12 yrs and above (Pfizer) 09/20/2022 Pneumococcal Conjugate Vacci ne, 20-valent ([id number]) 03/14/2022 Pneumococcal Polysaccharide PPV23 (Pneumovax) 03/19/2006 Seasonal [...] Telephone Encounter - Nancy Ryan DO - 05/15/2024 1:04 PM EDT Pt seen today and sent to ER for cellulitis with sepsis * Telephone Encounter - Christiana Atkinson LPN - 05/14/2024 12:43 PM EDT HH Concerns Pam VARMA, Calling from: Olga Report/Concerns of: Wound BLE Vitals: T 97.5 P 84 RR 18 BP 132/84 SP O2 98% room air Lung sounds- clear Blood sugar 134 Narrative: AVANI Orozco seeing patient currently. BLE wounds. Nurseing doing dressings 1x weekly Opticell AG with Optifoam, ABD pad then wrapped with guaze, patient doing changes daily. More drainage - right tavera - greenish drainage started TODAY, other areas serosanguinous. Moderate amount of drainage on RLE. Slight warm to touch, erythema as well. Swelling and tightness in ankles developed Saturday. Tightness brush burn pain, mild to moderate. Patient has been advised to go to the ER if worsening symptoms, Pam educated patient. History of Sepsis. New open area on the bottom of his left foot. Caused by his shoes. 0.8cm x 0.8cm. No drainage, warmth, or redness. He has been to the wound clinic before - [facility] and [facility], refuses to go back. Transferred to radiology scheduling to make an appt for ABDULKADIR. Appt scheduled 05/27/24 I scheduled an appt tomorrow with Dr. Ryan at 1230pm. Please advise if you would like to send an ABX prior to the appt. Call back patient with any advice. Please fax new orders to [facility] documented in this encounter Plan of Treatment Upcoming Encounters Date Type Department Care Team (Late st Contact Info) Description 05/26/2024 9:00 AM EDT Laboratory Laboratory [address] [place] [phone] [address] [place] [address] 05/27/2024 10:30 AM EDT Immunization/Injectio n Hematology/Oncology Treatment, [place] [address] [place] [phone] Jordana, Chair [address] [place] [address] 05/27/2024 2:00 PM EDT Imaging Vascular Lab, [facility] 2nd Floor, [address] [place] [address] 06/02/2024 10:30 AM EDT Office Visit Sleep Disorders Ctr [address] [place] [address] Dorothy Toscano CRNP [address] [place] [address] 06/23/2024 9:15 AM EST Office Visit Hematology/Oncology [facility] [address] [place] [phone] Fly Velazquez MD [address] [place] [address] 09/18/2024 2:00 PM EST Office Visit Nephrology [address] [place] [address] Beckie Dunbar PA-C [address] [place] [address] 10/22/2024 10:00 AM EDT Office Visit Sleep Disorders Ctr [facility] [address] [place] [phone] Dorothy Toscano CRNP [address] [facility] [place] [address] 11/17/2024 9:30 AM EDT Office Visit Family Medicine [address] [place] [phone] [place] [address] 11/24/2024 1:00 PM EDT Office Visit Cardiology [address] [place] [address] Prabhakar Henning PA-C [address] [place] [address] Scheduled Procedures Name Priority Associated Diagnoses Date/Ti [...] 05/19/2021, Additional history exists HbA1c 06/24/2024 12/23/2023, 12/11/2022, 03/19/2023, Additional history exists CKD PHOS USE SMARTSET 54308 09/02/202408/13, 09/18/2022, 08/29/2021, Additional history exists Diabetic Eye Exam 10/23/2024 10/24/2023, , 10/09/2022, Additional history exists GFR 11/08/2024 05/11/2024, 04/12, 2024, Additional history exists Albumin/Creatinine Ratio 04/27/2025 024, 02/19/2023, 03/14/2022, Additional history exists CKD HGB USE SMARTSET 22119 05/11/202505/11, 05/11/2024, 04/27/2024, Additional history exists Colonoscopy [...] this encounter Medical Devices Implanted Type [employer] Device Identifier Shelf Expiration Date Model / Serial / Lot Envista Hydrophobic Acrylic Intraocular Lens Implanted:Qty: 1 on 12/25/2016 by Raul Neely MD at OR [facility] Right: Eye [employer] 11/09/2018 [id number] / [id number] / [id number] Envista Mx60 +10.0 D Implanted:Qty: 1 on 01/29/2017 by Raul Neely MD at OR [facility] Left: Eye 11/09/2018 [id number] / [id number] / [id number] documented as of this encounter Advance Directives [...] and were consensually agreed upon. Care Teams Flat Bed Operator Relationship Specialty Start Date End Date Nancy Ryan DO [address] [place] [address] [place] [address] PCP - General Internal Medicine 09/11/18 documented as of this encounter
--- OUTSIDE RECORDS SUMMARY | 2024-05-16 04:53 | External Medical Summary | Summary of Care ---
Author Name Unknown Organization [facility] Address [address] [place] [address] Phone [phone] Care Team Providers Care Rough And Truing Machine Operator Name Role Phone Nancy Ryan DO Primary Care Provider [phone] Reason for Visit * Reason Comments Acute Pt c/o leg wounds, t emp 100.5 with chills. Encounter Details Date Type Department Care Team (Late st Contact Info) Description 05/15/2024 12:30 PM EDT Office Visit Family Medicine [address] [phone] [address] [place] [address] Cellulitis of left lower extremity*; History of sepsis; Anemia due to stage 3b chronic kidney disease (HCC); Chronic kidney disease, stage 3b (HCC) Allergies No known active allergiesdocumented as of this encounter (statuses as of 05/15/2024) Medications Medication Sig Dispensed Refills Start Date End Date Status Blood Glucose Monitoring Suppl (Nimbus DiscoveryUCH ULTRA SYSTEM) W/DEVICE KITIndications:DM type 2, goal [...] of insulin ([facility]) Use TWICE a day to test glucose Diagnosis = E11.9 200 Each 3 03/19/2023 Active Epoetin Gautam-epbx 73986 UNIT/ML Injection Solution (Retacrit) Inject 2 mL [...] Additional Information Patient not taking.Reported on 04/30/2024 [place]-3 Fish Oil 1000 MG Oral Capsule ([place]-3) Take 1 Capsule by mouth in the [...] (Pfizer) 09/20/2022 Pneumococcal Conjugate Vacci ne, 20-valent ([id number]) 03/14/2022 Pneumococcal Polysaccharide PPV23 (Pneumovax) 03/19/2006 Seasonal [...] Sign Reading Time Taken Comments Blood Pressure 158/70 05/15/2024 12:24 PM EDT Pulse 76 05/15/2024 12:24 PM EDT Temperature 38.1 C (100.5 F) 05/15/2024 12:24 PM EDT Respiratory Rate - - Oxygen Saturation 100% 05/15/2024 12: 24 PM EDT Inhaled Oxygen Concentration - - Weight 135.3 kg (298 lb 3.2 oz) 024 12:24 PM EDT Height - - Body Mass Index 41.59 01/01/2024 9:50 AM EDT documented in this encounter Progress Notes * Nancy Ryan, - 05/15/2024 12:30 PM EDT Subjective: Ronnie Wu is a 69 year old male. Chief Complaint Patient presents with Acute Pt c/o leg wounds, temp 100.5 with chills. HPI: Ronnie Wu presents today for evaluation of left foot redness, swelling and pain, alongwith low grade temps and chills. He has known chronic leg wounds. Yesterday home health reported green drainage from a wound on his right leg, but this is not bothersome to him. He has a history of sepsis and cellulitis. PMH: Patient Active Problem List Diagnosis SPENCER (obstructive sleep apnea) Type 2 diabetes mellitus with diabetic neuropathy, with long-term current use of insulin ([facility]) Gout of wrist Venous insufficiency Vitamin B12 deficiency Dyslipidemia, goal LDL below 100 Venous stasis dermatitis of both lower extremities DM neuropathy, type II diabetes mellitus ([facility]) History of DVT (deep vein thrombosis) Venous stasis ulcer of calf ([facility]) H/O amputation of lesser toe, unspecified laterality ([facility]) HTN, goal below 140/90 Iron deficiency anemia due to chronic blood loss 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 associated with type 2diabetes mellitus ([facility]) Hyperkalemia Renal calculi Non-pressure chronic ulcer of unspecified part of left lower leg with unspecified severity ([facility]) Varicose veins of right lower extremity with ulcer other part of lower leg (CODE) ([facility]) Non-pressure chronic ulcer of unspecified part of right lower leg with unspecified severity ([facility]) Acute gout due to renal impairment involving right wrist Primary osteoarthritis of right wrist Carpal tunnel syndrome of right wrist Chronic right-sided heart failure ([facility]) Other specified peripheral vascular diseases ([facility]) Chronic gout due to renal impairment, multiple sites, without tophus (tophi) Tubular adenoma History of adenomatous polyp of colon Non-pressure chronic ulcer of lower leg, limited to breakdown of skin ([facility]) Chronic venous hypertension (idiopathic) with ulcer of bilateral lower extremity (CODE) ([facility]) 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 ([facility]) Venous stasis ulcer of right calf limited to breakdown of skin ([facility]) Body mass index (BMI) of 40.0 to 44.9 in adult ([facility]) Full code status Chronic kidney disease, stage 3b ([facility]) Anemia due to stage 3b chronic kidney disease ([facility]) Current Outpatient Medications Medication Sig Dispense Refill Blood Glucose Monitoring Suppl (ONETOUCH ULTRA SYSTEM) W/DEVICE KIT Use as directed [...] = E11.9 200 Each 3 Epoetin Gautam-epbx 44598 UNIT/ML Injection Solution (Retacrit) Inject 2 mL intravenously once. Everytwo weeks Carvedilol 6.25 MG Oral Tablet (Coreg) TAKE 1 TABLET BY MOUTH TWICE A DAY WITH BREAKFAST AND [id number] Tablet 3 Dorzolamide HCl-Timolol Mal 2-0.5 % [...] at bedtime as needed.) 30 Tablet 0 Multiple Vitamin Oral Tablet Take 1 Tablet by mouth in the morning. (Patient not taking: Reported on 04/30/2024) 30 Tablet 0 [place]-3 Fish Oil 1000 MG Oral Capsule (Strasburg-3) Take 1 Capsule by mouth in the [...] into eye at bedtime. 2.5 mL 6 Atorvastatin Calcium 20 MG Oral Tablet (Lipitor) Take 1 Tablet by mouth in the morning. 90 Tablet 1 Vancomycin HCl 125 MG Oral Capsule (Vancocin) Take 1 Capsule by mouth every 6 hours. For 10 days Allopurinol 100 MG Oral Tablet (Zyloprim) Take 2 Tablets by mouth in the morning. Take 1 tablet by mouth in the morning. Current Facility-Administered Medications Medication Dose Route Frequency Provider Last Rate Last Admin bevaCIZumab (Avastin) inj 1.25 mg 1.25 mg Intravitreal PRN Mika Diaz, DO 1.25 mg at 06/13/23 1143 ROPivacaine (Naropin) inj 1.5 mg 1.5 mg Perineural PRN Mika Diaz, DO 1.5 mg at Review of patient's allergies indicates: No Known Allergies Objective: BP 158/70 | Pulse 76 | Temp (!) 38.1 C (100.5 F) | Wt 135.3 kg (298 lb 3.2 oz) | SpO2 100% | BMI 41.59 kg/m | BSA 2.6 m General: alert, healthy, no distress, well nourished, and well developed Skin: the left foot is warm, red, swollen and painful. There is a wound on the plantar surface of the foot although he does not have focal tenderness in this area. Lower skins are wrapped with his wound care dressings but his showed me pictures of the legs from yesterday. Some greenish drainage on the bandage from the right. ASSESSMENT/PLAN: Cellulitis of left lower extremity (Primary) - given his history of cellulitis/sepsis and systemic symptoms of fevers/chills, advised ER for treatment. Will notify the ER of his pending arrival. Ambulance offered but declined. His will transport him by private vehicle. History of sepsis Anemia due to stage 3b chronic kidney disease (HCC) Follow Up: Return if symptoms worsen or fail to improve. Nancy Ryan DO I spent a total of 20-29 minutes (exact time 22 mins) on the date of service in preparation, delivery, and documentation of the care provided to Ronnie Wu excluding any time spent in the performance of separately billed services or time spent by another provider/QHP. documented in this encounter Plan of Treatment Upcoming Encounters Date Type Department Care Team (Late st Contact Info) Description 05/26/2024 9:00 AM EDT Laboratory Laboratory [address] [place] [phone] [place] [address] 05/27/2024 10:30 AM EDT Immunization/Injectio n Hematology/[address], [address] [phone] Jordana, Chair [address] Hem On[address] [place] [address] 05/27/2024 2:00 PM EDT Imaging Vascular Lab, [facility] 2nd Floor, [place] [address] [facility] [place] [address] 06/02/2024 10:30 AM EDT Office Visit Sleep Disorders Ctr [facility] [address] [facility] [place] [phone] Dorothy Toscano CRNP [address] [facility] [place] [address] 06/23/2024 9:15 AM EST Office Visit Hematology/Oncology [facility] [address] [place] [phone] Fly Velazquez MD [address] [place] [address] 09/18/2024 2:00 PM EST Office Visit Nephrology [address] [place] [address] ZeBeckie cruz PA-C [address] [place] [address] 10/22/2024 10:00 AM EDT Office Visit Sleep Disorders Ctr [facility] [place] [address] [place] [phone] Dorothy Toscano CRNP [address] [place] [address] 11/17/2024 9:30 AM EDT Office Visit Family Medicine [address] [place] [phone] Nancy [address] [place] [address] 11/24/2024 1:00 PM EDT Office Visit Cardiology [address] [place] [address] Prabhakar Henning PA-C [address] [place] [address] Scheduled Procedures Name Priority Associated Diagnoses Date/Ti [...] Additional history exists CKD PHOS USE SMARTSET 71747 09/02/202408/13, 09/18/2022, 08/29/2021, Additional history exists Diabetic Eye Exam 10/23/2024 10/24/2023, , 10/09/2022, Additional history exists GFR 11/08/2024 05/11/2024, 04/12, 2024, Additional history exists Albumin/Creatinine Ratio 04/27/2025 024, 02/19/2023, 03/14/2022, Additional history exists CKD HGB USE SMARTSET 53462 05/11/202505/11, 05/11/2024, 04/27/2024, Additional history exists Colonoscopy [...] encounter Medical Devices Implanted Type Area In Processing Instructor Device Identifier Shelf Expiration Date Model / Serial / Lot Envista Hydrophobic Acrylic Intraocular Lens Implanted:Qty: 1 on 12/25/2016 by Raul Neely MD at OR [facility] Right: Eye [employer] 11/09/2018 [id number] / [id number] / [id number] Envista Mx60 +10.0 D Implanted:Qty: 1 on 01/29/2017 by Raul Neely MD at OR [facility] Left: Eye 11/09/2018 [id number] / [id number] documented as of this encounter Visit Diagnoses Diagnosis Cellulitis of left lower extremity- Primary Cellulitis and abscess of leg, except foot History of sepsis Personal history of other infectious and parasitic disease Anemia due to stage 3b chronic kidney disease (HCC) Chronic kidney disease, stage 3b (HCC) documented in this encounter Advance Directives [...] and were consensually agreed upon. Care Teams Rough And Truing Machine Operator Relationship Specialty Start Date End Date Nancy Ryan DO [address] [place] [address] [place] [address] PCP - General Internal Medicine 09/11/18 documented as of this encounter"
--- OUTSIDE RECORDS SUMMARY | 2024-05-16 04:53 | External Medical Summary | Summary of Care ---
Author Name Unknown Organization [facility] Address [address] [place] [address] Phone [phone] Care Team Providers Care Content Designer Name Role Phone Nancy Ryan DO Primary Care Provider [phone] Reason for Visit * Reason Onset Date Comments Home Health 05/12/2024 Appointment 05/12/2024 ABDULKADIR at Encounter Details Date Type Department Care Team (Late st Contact Info) Description 05/12/2024 Telephone Family Medicine [address] [place] [phone] Nancy Ryan DO [address] [place] [address] [place] [address] Home Health; Appointment (ABDULKADIR at ) Allergies No known active allergiesdocumented as of this encounter (statuses as of 05/15/2024) Medications Medication Sig Dispensed Refills Start Date End Date Status Blood Glucose Monitoring Suppl (Strawberry energyTOUCH ULTRA SYSTEM) W/DEVICE KITIndications:DM type 2, goal [...] 200 Each 3 03/19/2023 Active Epoetin Gautam-epbx 13974 UNIT/ML Injection Solution (Retacrit) Inject 2 mL [...] Additional Information Patient not taking.Reported on 04/30/2024 [place]-3 Fish Oil 1000 MG Oral Capsule ([place]-3) Take 1 Capsule by mouth in the [...] (Pfizer) 09/20/2022 Pneumococcal Conjugate Vacci ne, 20-valent ([id number]) 03/14/2022 Pneumococcal Polysaccharide PPV23 (Pneumovax) 03/19/2006 Seasonal [...] encounter Miscellaneous Notes * Telephone Encounter - Julio Cesar Ragsdale OSA - 05/15/2024 12:34 PM EDT Someone has pt scheduled at 05/27/24 * Telephone Encounter - Christiana Atkinson LPN - 05/14/2024 12:57 PM EDT Spoke with AVANI Orozco from [facility] with patient and his . Informed of the wound care change, but patient does not want to switch from Aquacel AG to collagen because he feels it's been working well and his skin is very sensitive. Pam is going to keep the order as is. [facility] representatives don't see the patient, they base their recommendations off nursing documentation. Transferred to [facility] schedule for ABDULKADIR appt. Appt with PCP 10/4 at 12:30pm SHABNAM Ryan. * Telephone Encounter [...] and cover with cling. She spoke with customer account representative with [employer] and they are follow [...] Description 05/26/2024 9:00 AM EDT Laboratory Laboratory [address] [place] [phone] [place] [address] 05/27/2024 10:30 AM EDT Immunization/Injectio n Hematology/Oncology Treatment, [place] [address] [facility] [place] [phone] Jordana, Chair 11 Hem Onc [facility] [address] [facility] [place] [address] 05/27/2024 2:00 PM EDT Imaging Vascular Lab, [facility] 2nd Floor, [place] [address] [place] [address] 06/02/2024 10:30 AM EDT Office Visit Sleep Disorders Ctr [facility], [place] [address] [place] [phone] Dorothy Toscano CRNP [address] [place] [address] 06/23/2024 9:15 AM EST Office Visit Hematology/Oncology [facility] [place] [address] [facility] [place] [phone] Fly Velazquez MD [address] [facility] [place] [address] 09/18/2024 2:00 PM EST Office Visit Nephrology [address] [place] [address] ZeBeckie cruz PA-C [address] [facility] [place] [address] 10/22/2024 10:00 AM EDT Office Visit Sleep Disorders Ctr [facility], [place] [address] [place] [phone] Dorothy Toscano CRNP [address] [place] [address] 11/17/2024 9:30 AM EDT Office Visit Family Medicine [address] [place] [phone] Ryan Nancy [address] [place] [address] 11/24/2024 1:00 PM EDT Office Visit Cardiology [address] [place] [address] Prabhakar Henning PA-C [address] [place] [address] Scheduled Orders Name Type Priority Associated Diagnoses [...] Additional history exists CKD PHOS USE SMARTSET 36760 09/02/202408/13, 09/18/2022, 08/29/2021, Additional history exists Diabetic Eye Exam 10/23/2024 10/24/2023, , 10/09/2022, Additional history exists GFR 11/08/2024 05/11/2024, 04/12, 2024, Additional history exists Albumin/Creatinine Ratio 04/27/2025 024, 02/19/2023, 03/14/2022, Additional history exists CKD HGB USE SMARTSET 31284 05/11/202505/11, 05/11/2024, 04/27/2024, Additional history exists Colonoscopy [...] this encounter Medical Devices Implanted Type Area Watch And Clock Repair Clerk Device Identifier Shelf Expiration Date Model / Serial / Lot Envista Hydrophobic Acrylic Intraocular Lens Implanted:Qty: 1 on 12/25/2016 by Raul Neely MD at OR [facility] Right: Eye [employer] 11/09/2018 [id number] / [id number] / [id number] Envista Mx60 +10.0 D Implanted:Qty: 1 on 01/29/2017 by Raul Neely MD at OR [facility] Left: Eye 11/09/2018 [id number] / [id number] / [id number] documented as of this encounter Visit Diagnoses [...] and were consensually agreed upon. Care Teams Content Designer Relationship Specialty Start Date End Date Nancy Ryan DO [address] [place] [address] [place] [address] PCP - General Internal Medicine 09/11/18 documented as of this encounter
[2024-05-16 06:59] LABS: Basophils # (auto) 0.03 K/uL (0.00-0.20); Basophils % (auto) 0.4 %; Eosinophils # (auto) 0.11 K/uL (0.00-0.50); Eosinophils % (auto) 1.3 %; Hemoglobin 7.8 g/dl (14.0-18.0); Immature Granulocytes # (auto) 0.03 K/uL (0.01-0.20); Immature Granulocytes % (auto) 0.4 %; Lymphocytes # (auto) 0.95 K/uL (1.20-3.40); Lymphocytes % (auto) 11.2 %; Mean Corpuscular Hgb Conc 33.9 g/dL (32.0-36.0); Mean Corpuscular Volume 85.5 fL (80.0-100.0); Mean Platelet Volume 9.7 fL (9.4-12.4); Monocytes # (auto) 0.56 K/uL (0.11-0.59); Monocytes % (auto) 6.6 %; Neutrophils # (auto) 6.79 K/uL (1.40-6.50); Neutrophils % (auto) 80.1 %; Platelet Count 182 K/uL (130-400); RDW Coefficient of Variation 15.9 % (11.5-14.5); RDW Standard Deviation 50.3 fL (36.4-46.3); Red Blood Count 2.69 M/uL (4.70-6.10); White Blood Count 8.47 K/ul (4.8-10.8)
[2024-05-16 07:16] LABS: BUN Creatinine Ratio 20.7 (10-20); Calcium 8.7 mg/dl (8.6-10.3); Creatinine Clr Calc Pharmacy 42.1 ml/min; Magnesium 1.8 mg/dl (1.7-2.4); Potassium 4.3 mmol/L (3.5-5.1)
[2024-05-16 07:33] LABS: Polychromasia 1+
[2024-05-16] MEDS: ACETAMINOPHEN 325 MG TAB PO PRN (07:41)
[2024-05-16] MEDS: ATORVASTATIN 20 MG TAB PO SCH (07:44)
[2024-05-16] MEDS: DOXYCYCLINE HYCLATE 100 MG CAP PO SCH (07:45)
[2024-05-16] MEDS: allopurinoL 100 MG TAB PO SCH (09:29)
[2024-05-16] MEDS: LANTUS PER UNIT CHARGE SC SCH (09:30)
[2024-05-16] MEDS: MAGNESIUM CHLORIDE W/CALCIUM 64MG DELAYED REL TAB PO SCH (09:30)
--- NOTE | 2024-05-16 15:41 | Hospitalist Progress Note ---
Date of Service May 16, 2024 Assessment & Plan (1) Cellulitis: Plan: Left foot cellulitis ulcer --Foot CT:Diffuse edema/cellulitis. Gas the plantar soft tissues overlying the distal fifth metatarsal consistent with infection/ulceration. Limited by lack of contrast material. No definite focal phlegmon or abscess. No definite underlying osteomyelitis. --Blood Cx:pending Continue Zosyn, doxycycline Podiatry consulted Continue wound care Hypomagnesemia Replete electrolytes as needed Monitor ZAHRAA on CKD III Losartan, torsemide held Received IV fluids Monitor renal function Avoid nephrotoxic agents as able Chronic diastolic heart failure Resume home diuretics as able Monitor volume status DM II Last HbA1c 5.6 in December 2023 Continue insulin while hospitalized Monitor BGs Morbid obesity BMI 40 Other chronic conditions: Hypertension Hyperlipidemia PVD SPENCER on CPAP H/O DVT S/P 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 h/o chronic lymphedema/LE venous stasis as per records chronic LE wounds Gout Continue home medications as able DVT Px: Heparin SQ CODE STATUS Full code Admission and Anticipated Discharge Date Admission Date: May 15, 2024 Subjective Patient is seen and examined at bedside States having left foot pain associated with erythema and edema No other complaints today Denies any chest pain, dyspnea, nausea, vomiting, abdominal pain Review of Systems Review of Systems: All systems reviewed & are unremarkable except as noted in Subjective Physical Exam Physical Exam: Physical Exam: Vitals signs as noted above General Appearance:Obese, no apparent distress Head: normocephalic, Atraumatic Eyes: normal inspection, EOMI Neck: supple, Trachea midline Respiratory/Chest: Decreased breath sounds, CTA, No accessory muscle use Cardiovascular: S1, S2, No murmur Abdomen/GI:Soft, Non tender, Bowel sounds present Extremities/Musculoskeletal:normal inspection, 2+edema,+ chronic venous stasis, +Dressing, + left foot necrotic ulcer on plantar Neurologic/Psych:AAOX3, grossly no focal neurological deficits Skin: normal color, warm Results & Data Results & Data Vital Signs (Past 12 Hours) Vital Signs Temp Pulse Resp BP Pulse Ox O2 Del Method 05/16/24 07:36 38.2 C H 77 18 130/71 100 Room Air Laboratory Results Short CBC 05/15/24 05/16/24 Range/Units 15:50 06:03 WBC 10.95 H 8.47 (4.8-10.8) K/ul Hgb 9.1 L 7.8 L (14.0-18.0) g/dl Hct 27.5 L 23.0 L (42.0-52.0) % Plt Count 204 182 (130-400) K/uL BMP 05/15/24 05/16/24 15:50 06:03 Sodium 136 137 Potassium 4.6 4.3 Chloride 106 109 H Carbon Dioxide 21 20 L BUN 48 H 50 H Creatinine 2.19 H 2.42 H Glucose 177 H 122 H Calcium 9.3 8.7 Liver Function 05/15/24 Range/Units 15:50 Total Bilirubin 1.3 H (0.2-1.0) mg/dl AST 16 (13-39) U/L ALT 19 (7-52) U/L Alkaline Phosphatase 74 (34-104) U/L Albumin 3.6 (3.4-5.0) gm/dl Urine 05/15/24 Range/Units 19:15 Urine Color Yellow Urine Appearance Clear (Clear) Urine pH 5.0 (4.5-7.5) Ur Specific [place] 1.012 (1.000-1.030) Urine Protein Negative (Negative) Urine Glucose (UA) Negative (Negative)
--- NOTE | 2024-05-16 20:02 | Communication Note ---
Date of Service: May 16, 2024 Patient still with febrile episodes despite ongoing doxycycline and Zosyn Rx. Daptomycin in place of doxycycline for MRSA coverage.
[2024-05-16] MEDS: ACETAMINOPHEN 500 MG TAB PO STA (20:37)
[2024-05-16] MEDS: DAPTOmycin 400 MG in SYRINGE 0 ML IV SCH (20:38)
[2024-05-16] MEDS: HEPARIN SOD 5,000 UNIT/0.5 ML VIAL SQ SCH (21:34)
[2024-05-17 06:42] LABS: Hematocrit (blood only) 22.3 % (42.0-52.0); Hemoglobin 7.5 g/dl (14.0-18.0); Mean Corpuscular Hemoglobin 28.6 pg (25.0-34.0); Mean Corpuscular Hgb Conc 33.6 g/dL (32.0-36.0); Mean Corpuscular Volume 85.1 fL (80.0-100.0); Mean Platelet Volume 10.3 fL (9.4-12.4); Platelet Count 179 K/uL (130-400); RDW Coefficient of Variation 16.2 % (11.5-14.5); RDW Standard Deviation 50.3 fL (36.4-46.3); Red Blood Count 2.62 M/uL (4.70-6.10); White Blood Count 10.62 K/ul (4.8-10.8)
[2024-05-17 06:50] LABS: BUN Creatinine Ratio 18.1 (10-20); Calcium 8.7 mg/dl (8.6-10.3); Creatinine Clr Calc Pharmacy 36.3 ml/min; Magnesium 1.6 mg/dl (1.7-2.4); Potassium 5.2 mmol/L (3.5-5.1)
--- NOTE | 2024-05-17 10:23 | Podiatry Consultation ---
Date of Consultation May 17, 2024 Assessment & Plan (1) Diabetic foot ulcer: Diabetic foot ulcer location: midfoot Diabetes mellitus type: type 2 Laterality: left Non-pressure ulcer stage: with muscle involvement without evidence of necrosis Qualified Code(s): E11.621 - Type 2 diabetes mellitus with foot ulcer; L97.425 - Non-pressure chronic ulcer of left heel and midfoot with muscle involvement without evidence of necrosis (2) Chronic ulcer of lower extremity: Laterality: left Non-pressure ulcer stage: with necrosis of muscle Qualified Code(s): L97.923 - Non-pressure chronic ulcer of unspecified part of left lower leg with necrosis of muscle (3) Diabetes mellitus, type II: Diabetes mellitus nursing home insulin use: with long term care social worker use Diabetes mellitus complication status: with circulatory complication Diabetes mellitus complication detail: with peripheral angiopathy without gangrene Qualified Code(s): E11.51 - Type 2 diabetes mellitus with diabetic peripheral angiopathy without gangrene; Z79.4 - group home (current) use of insulin (4) Cellulitis of left foot: Plan - Pt examined and evaluated. - Debrided wound at bedside. Deep cultures obtained. Scant purulence, but wound was deeper than clinically appeared, consistent with CT. - Would benefit from MRI/order placed. - Will continue to follow. Consider surgical intervention on , most likely, or sooner if needed. History of Present Illness Reason for Consultation: Left foot wound Attending Physician: Travis Jones MD History of Present Illness Patient seen at bedside. States he has developed this wound to the outside of the left foot over the last week or two, after he was trying to break in a new pair of shoes. He denies any significant injury or trauma, but does believe the foot has gotten worse since he initially saw what he thought was a callus on the left foot. We have seen him in the past on a regular basis for treatment of nails and calluses, in the setting of his peripheral arterial disease, in our [place] office. Further, he has been in treatment for leg wounds at the [facility] center throughout the last few years. Currently, he states, he has been released from wound care and has continued home care of his stasis/insufficiency wounds. He does admit to pain and malodor to this new wound on the bottom of the foot and presented for care when he noticed worsening redness, swelling, and drainage. Further he admits to feeling sick, with fever, chills, and malaise. Allergies Allergy/AdvReac Type Severity Reaction Status Date / Time No Known Allergies Allergy Verified 05/15/24 20:10 Home Medications Medication Instructions Recorded Confirmed Type semaglutide 2 mg/dose (8 mg/3 mL) 2 mg subcut WK 01/29/23 05/15/24 History subcutaneous pen injector (Ozempic) ascorbic acid (vitamin C) 1,000 mg 1 g PO QAM #30 tabs 11/22/23 05/15/24 Rx tablet atorvastatin 20 mg tablet 20 mg PO QAM #30 tabs 11/22/23 05/15/24 Rx carvedilol 6.25 mg tablet 6.25 mg PO BID #60 tabs 11/22/23 05/15/24 Rx dorzolamide 22.3 mg-timolol 6.8 1 drp OPB BID #10 mL 11/22/23 05/15/24 Rx mg/mL eye drops epoetin judith 20,000 unit/2 mL 20,000 unit (2 mL) subcut UD #8 mL 11/22/23 05/15/24 Rx injection solution (Procrit) netarsudil 0.02 % eye drops 1 drp OPL HS #2.5 mL 11/22/23 05/15/24 Rx (Rhopressa) omega 9-out-wtr-fish oil 100 1 cap PO QAM #30 caps 11/22/23 05/15/24 Rx mg-160 mg-1,000 mg capsule torsemide 20 mg tablet 20 mg PO QAM 30 days #30 tabs 11/22/23 05/15/24 Rx allopurinol 100 mg tablet 200 mg PO QAM 05/15/24 05/15/24 History ferrous sulfate 325 mg (65 mg 325 mg PO 3XWK 05/15/24 05/15/24 History iron) tablet,delayed release insulin glargine 100 unit/mL (3 20 unit subcut QAM 05/15/24 05/15/24 History mL) subcutaneous pen losartan 25 mg tablet 25 mg PO QAM 05/15/24 05/15/24 History Patient History Medical History Bacteremia due to Gram-negative bacteria ZAHRAA (acute kidney injury) History of colon polyps BENIGN Carpal tunnel syndrome of right wrist Benign cyst of kidney FATTY TISSUE GERD (gastroesophageal reflux disease) Hx of gout Vitamin B12 deficiency PT NOT SURE Anemia Chronic anticoagulation Diabetic neuropathy Mild nonproliferative diabetic retinopathy CKD (chronic kidney disease) stage 3, GFR 30-59 ml/min RLS (restless legs syndrome) Sleep apnea CPAP History of DVT (deep vein thrombosis) LEFT LEG IN 1980. OCCURED AFTER INJURY. >REASON FOR COUMADIN Hypertension Chronic venous insufficiency UNNA BOOTS B/L - CHANGED ONCE A WEEK SOME OPEN SORES ON LEGS/WOUND CLINIC [place] Surgical History History of endoscopy Family history of reaction to anesthesia MOTHER>SLOW TO WAKE UP [place] teeth removed 1 History of repair of retinal tear by laser photocoagulation History of cataract surgery RT/LEFT History of amputation of toe SMALL RT TOE History of colonoscopy Family History Mother Family history of diabetes mellitus Father Family history of diabetes mellitus Other Diabetes Heart disease Hypertension Social History Smoking Status: Never smoker Second Hand Exposure: No; Do You Dip or Chew Tobacco: No; Hx Alcohol Use: Yes Alcohol type: beer Hx Substance Use: No Preferred Language: Pashto Communication Ability: Effective Clinical Support Associate Required: No Beliefs That Will Affect Care: Faith Faith Beliefs: Quaker Current Living Situation: Spouse Other Information That Helps Us Care for You: No Feels Safe at Home: Yes Safety Concerns: Feels Safe At This Time Assistive Devices: CPAP and Glasses Review of Systems Review of Systems: All systems reviewed & are unremarkable except as noted in HPI & below Constitutional: + fever, + chills, + fatigue and + malai se Eyes: no problem reported Ear, Nose, Mouth, Throat: no problem reported Respiratory: no problem reported Cardiovascular: + edema; no problem reported Gastrointestinal: no nausea, no vomiting and no problem reported Musculoskeletal: no problem reported Integumentary: + skin ulcer, + wounds and + erythema Neurologic: + loss of sensation, + numbness and + pa resthesia; no generalized weakness Psychiatric: no problem reported Physical Exam Physical Exam: Lower extremity focused exam: DP/PT pulses nonpalpable b/l. CFT brisk to the digits. Diffuse edema to LE consistent with chronic venous stasis insufficiency. Left fifth metatarsal ulceration noted, sub metatarsal head. There is superficial fluctuance, consistent with ulcerated blister. Ulcer is 1.3cm in diameter ane probes 1.8 cm deep. The wound bed is non-viable, combination of slough and necrotic debris. Local cellulitis and minimal scant purulence. Deep wound cultures able to be obtained at this ulcer after debridement of obvious non-viable tissue. No ascending cellulitis, though local infection is noted. Constitutional: WD/WN, vitals as above + ill appearing and + morbidly obese Eyes: PERRL, conjunctivae normal, anicteric sclerae ENMT: external ear and nose normal, oropharynx normal Neck: trachea midline, no thyromegaly normal visual inspection Respiratory: normal respiratory effort; no respiratory distress Cardiovascular: Rate/Rhythm: regular rate and regular rhythm Extremities: normal capillary refill, + calf tenderness, + pedal edema, + edema and + varicosities Chest (Breasts): Chest: normal inspection of chest Gastrointestinal (Abdomen): Inspection/Auscultation: abdomen normal to inspection Percussion/Palpation: + abdomen tender and abdomen soft Musculoskeletal: no cyanosis or clubbing, extremities motor strength 5/5 Head/Neck/Chest: normocephalic and head atraumatic Extremities: extremities normal to inspection Skin: + turgor decreased, + ulcer, + wound, + skin atrophy, + erythema, + fluctulance, + mottling and + nails dystrophic Neurologic: awake; no focal motor deficits Psychiatric: A+Ox3, euthymic affect Results & Data Vital Signs (Past 12 Hours) Vital Signs Temp Pulse Resp BP Pulse Ox O2 Del Method 05/17/24 07:28 37.6 C H 80 18 108/60 98 Room Air 05/17/24 05:11 37.8 C H 05/16/24 22:54 38.5 C H Diagnostic Findings CT foot revealed extensive vascular calcifications, consistent with non palpable pedal pulses. No obvious bone involvement, but soft tissue gas at the ulceration was noted with suggestion of abscess and cellulitis, as well. Diffuse edema noted, consistent with clinical exam.
[2024-05-17] MEDS: MAGNESIUM SULFATE / D5W 1 GM/100 ML BAG IV ONE (10:27)
--- NOTE | 2024-05-17 12:10 | Magnetic Resonance Report ---
MRI OF THE LEFT FOOT WITHOUT CONTRAST CLINICAL HISTORY: Left foot wound; r/o OM COMPARISON STUDY: Left foot radiographs and CT of the left foot May 15, 2024. TECHNIQUE: Utilizing a 1.5 Leonor magnet and dedicated coil, multiplanar, multi echo imaging of the le ft forefoot was performed without intravenous contrast. FINDINGS: A lateral left forefoot wound overlies the left fifth metatarsal head. Multiple locules of soft tissue gas are present. A 1.4 x 0.8 cm pocket of fluid and gas along the lateral aspect of the l eft fifth metatarsal head suggests a developing abscess. There is moderate marrow edema within the le ft fifth metatarsal head with diminished T1 signal consistent with osteomyelitis. Otherwise, T1 signa l is preserved. No additional sites of significant marrow edema are present. This infectious process also involves the sesamoids of the left fifth digit, better depicted on CT of May 15, 2024. Tarsom etatarsal joints are intact. Lisfranc ligament is intact. There is extensive dorsal subcutaneous suresh a of the left forefoot. Moderate osteoarthritis within the midfoot. Mild subchondral signal abnormali ty within the medial talar dome is degenerative. IMPRESSION: 1. Findings consistent with acute osteomyelitis of the left fifth metatarsal head. No additional site s of osteomyelitis within the left forefoot. Associated sesamoid involvement is better depicted on CT of May 15, 2024. 2. Adjacent lateral left forefoot wound with associated cellulitis and multiple locules of soft tissu e gas. 1.4 x 0.8 cm pocket of fluid and gas along the lateral aspect of the left fifth metatarsal hea d is suggestive of a developing abscess. 3. Extensive dorsal forefoot soft tissue edema. ACT 112: Negative or not required by law. Electronically signed by: Rudy Leslie M.D. 05/17/2024 12:08 PM
--- NOTE | 2024-05-17 12:27 | Ultrasound Report ---
RENAL ULTRASOUND CLINICAL HISTORY: Acute kidney injury. COMPARISON STUDY: CT of the abdomen and pelvis November 13, 2023 TECHNIQUE: Sonography of the kidneys and the urinary bladder was performed. FINDINGS: The right kidney measures 13.8 cm in maximal dimension and the left measures 14 cm. There i s no hydronephrosis. Several renal cysts measure up to 3.9 cm. Echogenic foci within the renal sinuse s are noted. Ureteral jets were not visualized. IMPRESSION: 1. No hydronephrosis. 2. Echogenic foci within the renal sinuses which could reflect nonobstructing calculi or vascular ca lcifications. 3. Several renal cysts. ACT 112: Negative or not required by law. Electronically signed by: Rudy Leslie M.D. 05/17/2024 12:25 PM
--- NOTE | 2024-05-17 14:43 | Nephrology Consultation ---
Date of Consultation May 17, 2024 Assessment & Plan (1) Acute kidney injury superimposed on chronic kidney disease: ZAHRAA with background CKD 3B from Diabetic nephropathy. Now Creat is up a bit to 2.8 from baseline 2 in the setting of Infection. Also now on Abx which does increase ZAHRAA risk. The acute component is minimal as mostly CKD from DM. Already got iv fluids but BP is still lowish. Hold torsemide and Losartan for now. making urine and nothing to suggest Obstructive uropathy. Renal US done and No Hydronephrosis. b/l renal Cysts noted and not of Clinical significance for now. (2) Acute on chronic anemia: even at baseline has anemia of CKD but now with infection hgb is lower. PRBC if hgb drops below 7. Likely needs DAGO. Procrit 68744 units. No IV iron given issues with Infection (3) Hypomagnesemia: Common in diabetics. Slightly low at 1.6. got 1 gm. Check again in AM. If persistently low will need oral mag Supplement. (4) Diabetic foot ulcer: Cellulitis, Ulcer and possible Osteomyelitis also. On Iv Zosyn and Daptomicin. Possible need of Surgery. Podiatry consult noted and reviewed. Plan Time spent 55 mins History of Present Illness Reason for Consultation: Zahraa on CKD Attending Physician: Travis Jones MD History of Present Illness 69/M with CKD stage 3B baseline creat around 2, chronic diastolic heart failure (55 to 60%, TTE 2023), hypertension, hyperlipidemia, PVD SPENCER on CPAP, DM2 on oral medications, history DVT status post anticoagulation, chronic anemia (baseline hemoglobin 9-10), chronic lymphedema/LE venous stasis and gout. Presented with progressive left foot swelling since last week. Also noticed a black wound on the foot undersurface. No drainage, no chills. Denies chest pain, SOB. he had Clindamycin and Zosyn and vancomycin administered at the ER. Creat was baseline 2.1 on Admission and then 2.4 and today is 2.8. K is also borderline high at 5.2. His home med--Losartan and torsemide is on hold. getting Abx for Cellulitis--Zosyn and Daptomicin. he is having fever while in hospital. CT of foot shows Osteomyelitis. Podiatry saw patient and has recommended surgical intervention ROS-fever, swelling and some pain. Otherwise 12 Systems negative Physical Exam Physical Exam: General Appearance:Obese, no apparent distress head/Neck: supple, No JVD. MM moist Respiratory/Chest: Decreased breath sounds, clear. Cardiovascular: S1, S2, No murmur Abdomen/GI:Soft, Non tender Extremities- 2+edema,+ chronic venous stasis, +Dressing, + left foot necrotic ulcer on plantar Neurologic/Psych:AAOX3, grossly no focal neurological deficits Skin: normal color, warm Allergies Allergy/AdvReac Type Severity Reaction Status Date / Time No Known Allergies Allergy Verified 05/15/24 20:10 Home Medications Medication Instructions Recorded Confirmed Type semaglutide 2 mg/dose (8 mg/3 mL) 2 mg subcut WK 01/29/23 05/15/24 History subcutaneous pen injector (Ozempic) ascorbic acid (vitamin C) 1,000 mg 1 g PO QAM #30 tabs 11/22/23 05/15/24 Rx tablet atorvastatin 20 mg tablet 20 mg PO QAM #30 tabs 11/22/23 05/15/24 Rx carvedilol 6.25 mg tablet 6.25 mg PO BID #60 tabs 11/22/23 05/15/24 Rx dorzolamide 22.3 mg-timolol 6.8 1 drp OPB BID #10 mL 11/22/23 05/15/24 Rx mg/mL eye drops epoetin judith 20,000 unit/2 mL 20,000 unit (2 mL) subcut UD #8 mL 11/22/23 05/15/24 Rx injection solution (Procrit) netarsudil 0.02 % eye drops 1 drp OPL HS #2.5 mL 11/22/23 05/15/24 Rx (Rhopressa) omega 7-qbz-hhn-fish oil 100 1 cap PO QAM #30 caps 11/22/23 05/15/24 Rx mg-160 mg-1,000 mg capsule torsemide 20 mg tablet 20 mg PO QAM 30 days #30 tabs 11/22/23 05/15/24 Rx allopurinol 100 mg tablet 200 mg PO QAM 05/15/24 05/15/24 History ferrous sulfate 325 mg (65 mg 325 mg PO 3XWK 05/15/24 05/15/24 History iron) tablet,delayed release insulin glargine 100 unit/mL (3 20 unit subcut QAM 05/15/24 05/15/24 History mL) subcutaneous pen losartan 25 mg tablet 25 mg PO QAM 05/15/24 05/15/24 History Patient History Medical History Bacteremia due to Gram-negative bacteria ZAHRAA (acute kidney injury) History of colon polyps BENIGN Carpal tunnel syndrome of right wrist Benign cyst of kidney FATTY TISSUE GERD (gastroesophageal reflux disease) Hx of gout Vitamin B12 deficiency PT NOT SURE Anemia Chronic anticoagulation Diabetic neuropathy Mild nonproliferative diabetic retinopathy CKD (chronic kidney disease) stage 3, GFR 30-59 ml/min RLS (restless legs syndrome) Sleep apnea CPAP History of DVT (deep vein thrombosis) LEFT LEG IN 1980. OCCURED AFTER INJURY. >REASON FOR COUMADIN Hypertension Chronic venous insufficiency UNNA BOOTS B/L - CHANGED ONCE A WEEK SOME OPEN SORES ON LEGS/WOUND CLINIC [facility] Surgical History History of endoscopy Family history of reaction to anesthesia MOTHER>SLOW TO WAKE UP [place] teeth removed 1 History of repair of retinal tear by laser photocoagulation History of cataract surgery RT/LEFT History of amputation of toe SMALL RT TOE History of colonoscopy Family History Mother Family history of diabetes mellitus Father Family history of diabetes mellitus Other Diabetes Heart disease Hypertension Social History Smoking Status: Never smoker Second Hand Exposure: No; Do You Dip or Chew Tobacco: No; Hx Alcohol Use: Yes Alcohol type: beer Hx Substance Use: No Preferred Language: Divehi Communication Ability: Effective Fisher Trot Line Required: No Beliefs That Will Affect Care: Sabianist Sabianist Beliefs: Jehovah'S Witness Current Living Situation: Spouse Other Information That Helps Us Care for You: No Feels Safe at Home: Yes Safety Concerns: Feels Safe At This Time Assistive Devices: CPAP and Glasses Results & Data Vital Signs (Past 12 Hours) Vital Signs Temp Pulse Resp BP Pulse Ox O2 Del Method 05/17/24 14:32 37.3 C 05/17/24 10:24 37.4 C 05/17/24 07:28 37.6 C H 80 18 108/60 98 Room Air 05/17/24 05:11 37.8 C H Laboratory Results reviewed CBC, renal Panel, CT foot. Diagnostic Findings Renal US
--- NOTE | 2024-05-17 15:47 | Hospitalist Progress Note ---
Date of Service May 17, 2024 Assessment & Plan (1) Cellulitis: Plan: Left foot cellulitis/ulcer/Abscess Left fifth metatarsal head osteomyelitis--POA --Foot CT:Diffuse edema/cellulitis. Gas the plantar soft tissues overlying the distal fifth metatarsal consistent with infection/ulceration. Limited by lack of contrast material. No definite focal phlegmon or abscess. No definite underlying osteomyelitis. --Foot MRI:Findings consistent with acute osteomyelitis of the left fifth metatarsal head. No additional sites of osteomyelitis within the left forefoot. Associated sesamoid involvement is better depicted on CT of May 15, 2024. Adjacent lateral left forefoot wound with associated cellulitis and multiple locules of soft tissue gas. 1.4 x 0.8 cm pocket of fluid and gas along the lateral aspect of the left fifth metatarsal head is suggestive of a developing abscess. Extensive dorsal forefoot soft tissue edema. --Blood Cx: Negative to date --Wound culture pending --S/P at bedside debridement Continue Zosyn, doxycycline Appreciate podiatry input Continue wound care May need amputation of left fifth metatarsal head ID consulted Hypomagnesemia Replete electrolytes as needed Monitor ZAHRAA on CKD III Renal USD: No hydronephrosis. Echogenic foci within the renal sinuses which could reflect nonobstructing calculi or vascular calcifications. Several renal cysts. Losartan, torsemide held Received IV fluids Monitor renal function Avoid nephrotoxic agents as able Appreciate nephrology input Bladder scan as needed to monitor for any retention Renally adjust medications as needed Chronic diastolic heart failure Resume home diuretics as able Monitor volume status DM II Last HbA1c 5.6 in December 2023 Continue insulin while hospitalized Monitor BGs Morbid obesity BMI 40 Other chronic conditions: Hypertension Hyperlipidemia PVD SPENCER on CPAP H/O DVT S/P 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 h/o chronic lymphedema/LE venous stasis as per records chronic LE wounds Gout: Allopurinol dose decreased due to renal insufficiency Continue home medications as able DVT Px: Heparin SQ CODE STATUS Full code Admission and Anticipated Discharge Date Admission Date: May 15, 2024 Subjective Patient is seen and examined at bedside Left foot pain is improving No new complaints Denies any chest pain, dyspnea, nausea, vomiting, abdominal pain Review of Systems Review of Systems: All systems reviewed & are unremarkable except as noted in Subjective Physical Exam Physical Exam: Physical Exam: Vitals signs as noted above General Appearance:Obese, no apparent distress Head: normocephalic, Atraumatic Eyes: normal inspection, EOMI Neck: supple, Trachea midline Respiratory/Chest: Decreased breath sounds, CTA, No accessory muscle use Cardiovascular: S1, S2, No murmur Abdomen/GI:Soft, Non tender, Bowel sounds present Extremities/Musculoskeletal:normal inspection, 2+edema,+ chronic venous stasis, +Dressing, + left foot necrotic ulcer on plantar Neurologic/Psych:AAOX3, grossly no focal neurological deficits Skin: normal color, warm Results & Data Results & Data Vital Signs (Past 12 Hours) Vital Signs Temp Pulse Resp BP Pulse Ox O2 Del Method 05/17/24 14:32 37.3 C 05/17/24 10:24 37.4 C 05/17/24 07:28 37.6 C H 80 18 108/60 98 Room Air 05/17/24 05:11 37.8 C H Laboratory Results Short CBC 05/17/24 Range/Units 05:50 WBC 10.62 (4.8-10.8) K/ul Hgb 7.5 L (14.0-18.0) g/dl Hct 22.3 L (42.0-52.0) % Plt Count 179 (130-400) K/uL BMP 05/17/24 05:50 Sodium 137 Potassium 5.2 H D Chloride 110 H Carbon Dioxide 18 L BUN 51 H Creatinine 2.81 H D Glucose 111 H Calcium 8.7
[2024-05-17] MEDS: NETARSUDIL MESYLATE 37 DROPS/2.5 ML BTL OP SCH (20:46)
[2024-05-18] MEDS: ALBUMIN 25% 25 GM/100 ML VIAL IV ONE (00:07)
[2024-05-18 06:49] LABS: Hematocrit (blood only) 21.9 % (42.0-52.0); Hemoglobin 7.4 g/dl (14.0-18.0); Mean Corpuscular Hemoglobin 28.7 pg (25.0-34.0); Mean Corpuscular Hgb Conc 33.8 g/dL (32.0-36.0); Mean Corpuscular Volume 84.9 fL (80.0-100.0); Mean Platelet Volume 10.1 fL (9.4-12.4); Platelet Count 175 K/uL (130-400); RDW Coefficient of Variation 15.9 % (11.5-14.5); RDW Standard Deviation 49.8 fL (36.4-46.3); Red Blood Count 2.58 M/uL (4.70-6.10)
[2024-05-18 07:07] LABS: BUN Creatinine Ratio 18.8 (10-20); Calcium 8.8 mg/dl (8.6-10.3); Creatinine Clr Calc Pharmacy 33.6 ml/min; Magnesium 1.8 mg/dl (1.7-2.4); Potassium 4.3 mmol/L (3.5-5.1)
[2024-05-18] MEDS: FERROUS SULFATE 325 MG TAB PO SCH (08:49)
[2024-05-18] MEDS: ADVANCED PROBIOTIC 625 MG CAPSULE PO SCH (08:49)
[2024-05-18] MEDS: allopurinoL 100 MG TAB PO SCH (08:50)
--- NOTE | 2024-05-18 11:27 | Nephrology Progress Note ---
Date of Service May 18, 2024 Assessment & Plan (1) Acute kidney injury superimposed on chronic kidney disease: Plan: worsening slightly stage 1 nonoliguric ZAHRAA with background CKD 3B from Diabetic nephropathy. Renal US w/ No Hydronephrosis. b/l renal Cysts noted and not Clinical significant for now. Now Creat is up a bit to 2.8 > 3.0 from baseline 2 in the setting of Infection. Also now on Abx which does increase ZAHRAA risk. K ok on low K diet at 4.3 worsening nagma since arrival >> ? cause; no diarrhea reported; monitor -cont to Hold torsemide and Losartan for now. concern edema may complicate healing/ plans for debridement or other intervention but for now need to stabilize renal function -I/O not complete/detailed > asked for more in depth tracking -no FR for now but may need one moving forward >>important that he elevate legs when not ambulating -daily STANDING weight -daily bmp care coordinated w/ dr kessler regarding ongoing mgt of ZAHRAA and of anemia wrt meds, labs, nursing care; we are in agreement. (2) Acute on chronic anemia: Plan: even at baseline has anemia of CKD but now with infection hgb is lower. PRBC if hgb drops below 7. Likely needs DAGO. Procrit 19420 units ordered SQ x 1 for hgb 7.4 (stable but low) No IV iron given issues with Infection (3) Hypomagnesemia: Plan: Common in diabetics. Slightly low at 1.6 on admission and got 1 gm. recheck today 1.8. If persistently low will need oral mag Supplement. >monitor q48-72 hrs while in house (4) Diabetic foot ulcer: Plan: Cellulitis, Ulcer and possible Osteomyelitis also. On Iv Zosyn and Daptomicin. Possible need of Surgery. Podiatry consult noted and reviewed. Plan Time spent 55 mins Admission and Anticipated Discharge Date Admission Date: May 15, 2024 Subjective had one dose albumin ON; c/o feeling cold (not chills); no sob, no sense of worsening edema; getting up on his own to void - no dysuria/gross hematuria though did have dark concentrated urine x 1 Review of Systems 2 Review of Systems: All systems reviewed & are unremarkable except as noted in Subjective Physical Exam 2 Constitutional: well developed (sitting up in chair, legs down, on RA), well nourished and + morbidly obese Eyes: EOM intact bilaterally ENMT: Ears: no external ear abnormality Nose: no external nose abnormality Mouth: + dry oral mucous membranes Neck: no nuchal rigidity Respiratory: normal respiratory effort Auscultation: + diminished lung sounds (shashank R base) Cardiovascular: Rate/Rhythm: regular rate and regular rhythm Extremities: + edema (1-2+ BL at knees) Gastrointestinal (Abdomen): Inspection/Auscultation: normal bowel sounds P ercussion/Palpation: abdomen soft; abdomen nontender Musculoskeletal: Extremities: strength 5/5 throughout Skin: no rashes, warm and dry (L foot wrapped) Neurologic: cline, fluent speech, no tremor Results & Data Vital Signs (Past 12 Hours) Vital Signs Temp Pulse Resp BP Pulse Ox O2 Del Method 05/18/24 07:32 37.4 C 54 L 18 137/67 99 Room Air 05/18/24 07:30 Room Air 05/18/24 03:06 37.3 C Laboratory Results 05/18/24 05:54 05/18/24 05:54 (4) Diabetic foot ulcer Diabetes mellitus type: type 2 Diabetic foot ulcer location: midfoot L aterality: left Non-pressure ulcer stage: with muscle involvement without evidence of necrosis Qualified Code(s): E11.621 - Type 2 diabetes mellitus with foot ulcer; L97.425 - Non-pressure chronic ulcer of left heel and midfoot with muscle involvement without evidence of necrosis
[2024-05-18] MEDS: EPOETIN ALFA 10,000 UNITS/ML VIAL SQ ONE (12:23)
--- NOTE | 2024-05-18 15:27 | Hospitalist Progress Note ---
Date of Service May 18, 2024 Assessment & Plan (1) Cellulitis: Plan: Left foot cellulitis/ulcer/Abscess Left fifth metatarsal head osteomyelitis--POA --Foot CT:Diffuse edema/cellulitis. Gas the plantar soft tissues overlying the distal fifth metatarsal consistent with infection/ulceration. Limited by lack of contrast material. No definite focal phlegmon or abscess. No definite underlying osteomyelitis. --Foot MRI:Findings consistent with acute osteomyelitis of the left fifth metatarsal head. No additional sites of osteomyelitis within the left forefoot. Associated sesamoid involvement is better depicted on CT of May 15, 2024. Adjacent lateral left forefoot wound with associated cellulitis and multiple locules of soft tissue gas. 1.4 x 0.8 cm pocket of fluid and gas along the lateral aspect of the left fifth metatarsal head is suggestive of a developing abscess. Extensive dorsal forefoot soft tissue edema. --Blood Cx: Negative to date --Wound culture growing group B strep, staph species --S/P at bedside debridement Continue Zosyn, doxycycline Appreciate podiatry input Continue wound care May need amputation of left fifth metatarsal head ID consulted--pending input Continue current medications for now Hypomagnesemia Replete electrolytes as needed Monitor ZAHRAA on CKD III Renal USD: No hydronephrosis. Echogenic foci within the renal sinuses which could reflect nonobstructing calculi or vascular calcifications. Several renal cysts. Losartan, torsemide held Received IV fluids Monitor renal function Avoid nephrotoxic agents as able Appreciate nephrology input Bladder scan as needed to monitor for any retention Renally adjust medications as needed Cr 3.0 today Chronic diastolic heart failure Resume home diuretics as able Monitor volume status DM II Last HbA1c 5.6 in December 2023 Continue insulin while hospitalized Monitor BGs Morbid obesity BMI 40 Other chronic conditions: Hypertension Hyperlipidemia PVD SPENCER on CPAP H/O DVT S/P 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 h/o chronic lymphedema/LE venous stasis as per records chronic LE wounds Gout: Allopurinol dose decreased due to renal insufficiency Continue home medications as able DVT Px: Heparin SQ CODE STATUS Full code Admission and Anticipated Discharge Date Admission Date: May 15, 2024 Subjective Patient is seen and examined at bedside Leg pain continues to improve States feeling tired today Afebrile today Discussed with nephrology today Denies any chest pain, dyspnea, nausea, vomiting, abdominal pain Review of Systems Review of Systems: All systems reviewed & are unremarkable except as noted in Subjective Physical Exam Physical Exam: Physical Exam: Vitals signs as noted above General Appearance:Obese, no apparent distress Head: normocephalic, Atraumatic Eyes: normal inspection, EOMI Neck: supple, Trachea midline Respiratory/Chest: Decreased breath sounds, CTA, No accessory muscle use Cardiovascular: S1, S2, No murmur Abdomen/GI:Soft, Non tender, Bowel sounds present Extremities/Musculoskeletal:normal inspection, 2+edema,+ chronic venous stasis, +Dressing, + left foot necrotic ulcer on plantar Neurologic/Psych:AAOX3, grossly no focal neurological deficits Skin: normal color, warm Results & Data Results & Data Vital Signs (Past 12 Hours) Vital Signs Temp Pulse Resp BP Pulse Ox O2 Del Method 05/18/24 07:32 37.4 C 54 L 18 137/67 99 Room Air 05/18/24 07:30 Room Air Laboratory Results Short CBC 05/18/24 Range/Units 05:54 WBC 8.90 (4.8-10.8) K/ul Hgb 7.4 L (14.0-18.0) g/dl Hct 21.9 L (42.0-52.0) % Plt Count 175 (130-400) K/uL BMP 05/18/24 05:54 Sodium 133 L Potassium 4.3 Chloride 106 Carbon Dioxide 17 L BUN 57 H Creatinine 3.03 H Glucose 99 Calcium 8.8
--- NOTE | 2024-05-18 15:47 | Infectious Disease Consult ---
Date of Service May 18, 2024 Telehealth Information I performed this visit using a real-time telehealth connection between my location and the patients location ([facility]). After connecting through interactive tele-video, patient was identified by name and date of and/or wristband check.Patient (or authorized healthcare provider relations representative) was informed that this was a telemedicine visit and it was being conducted confidentially over secure lines. My office door was closed and no o ne else was present in the room with me.Patient (or authorized healthcare provider relations representative) provided consent to proceed with the visit, expressed an understanding of privacy and security of the telemedicine visit, and gave permission to have a hospital provider relations representative in the room in order to assist with the visit and to conduct portions of the visit, as needed. I informed the patient (or authorized healthcare provider relations representative) that I reviewed their record and presented the opportunity for them to ask any questions regarding the visit today. The patient agreed to participate. Assessment & Plan (1) Cellulitis of left foot: (2) Diabetic foot ulcer: (3) Osteomyelitis of toe of left foot: Plan: Assessment: L diabetic foot infectio w/ OM of 5th MT head and abscess ZAHRAA on CKD Hx of C diff infection 05/17/24 bedside debridement of L foot Plan: - Stop zosyn - Start cefazolin 2 gm iv q12 hours - F/u culture for final result - Patient has agreed to proceed with amputation - Final rec to follow after amputation - Will continue to follow History of Present Illness History of Present Illness This is a 69 y/o male (Servando) w/ hx of DM2, R 5th toe amptation for infection, and C diff, admitted since 05/15/24 for sepsis w/ L diabetic foot infection w/ OM. Fever and minimal leukocytosis on admission w/ MRI of L foot showing findings consistent with acute osteomyelitis of the left fifth metatarsal head involving the sesamoid, abscess in the L 5th MT head, 1.4 x 0.8 cm, and cellulitis of lateral L forefoot. Podiatry debrided the L foot at bedside on 05/17 w/ the wound culture showing Staph sp and GBS. The patient is resting comfortably in chair, denying n/v, abd pain, diarrhea (but constipation), sob, coughing, cp, f/c or urinary symptoms but pain on L foot. Lisa, patients , participated during the encounter. Allergies Allergy/AdvReac Type Severity Reaction Status Date / Time No Known Allergies Allergy Verified 05/15/24 20:10 Home Medications Medication Instructions Recorded Confirmed Type semaglutide 2 mg/dose (8 mg/3 mL) 2 mg subcut WK 01/29/23 05/15/24 History subcutaneous pen injector (Ozempic) ascorbic acid (vitamin C) 1,000 mg 1 g PO QAM #30 tabs 11/22/23 05/15/24 Rx tablet atorvastatin 20 mg tablet 20 mg PO QAM #30 tabs 11/22/23 05/15/24 Rx carvedilol 6.25 mg tablet 6.25 mg PO BID #60 tabs 11/22/23 05/15/24 Rx dorzolamide 22.3 mg-timolol 6.8 1 drp OPB BID #10 mL 11/22/23 05/15/24 Rx mg/mL eye drops epoetin judith 20,000 unit/2 mL 20,000 unit (2 mL) subcut UD #8 mL 11/22/23 05/15/24 Rx injection solution (Procrit) netarsudil 0.02 % eye drops 1 drp OPL HS #2.5 mL 11/22/23 05/15/24 Rx (Rhopressa) omega 1-hpr-htn-fish oil 100 1 cap PO QAM #30 caps 11/22/23 05/15/24 Rx mg-160 mg-1,000 mg capsule torsemide 20 mg tablet 20 mg PO QAM 30 days #30 tabs 11/22/23 05/15/24 Rx allopurinol 100 mg tablet 200 mg PO QAM 05/15/24 05/15/24 History ferrous sulfate 325 mg (65 mg 325 mg PO 3XWK 05/15/24 05/15/24 History iron) tablet,delayed release insulin glargine 100 unit/mL (3 20 unit subcut QAM 05/15/24 05/15/24 History mL) subcutaneous pen losartan 25 mg tablet 25 mg PO QAM 05/15/24 05/15/24 History Patient History Medical History Bacteremia due to Gram-negative bacteria ZAHRAA (acute kidney injury) History of colon polyps BENIGN Carpal tunnel syndrome of right wrist Benign cyst of kidney FATTY TISSUE GERD (gastroesophageal reflux disease) Hx of gout Vitamin B12 deficiency PT NOT SURE Anemia Chronic anticoagulation Diabetic neuropathy Mild nonproliferative diabetic retinopathy CKD (chronic kidney disease) stage 3, GFR 30-59 ml/min RLS (restless legs syndrome) Sleep apnea CPAP History of DVT (deep vein thrombosis) LEFT LEG IN 1980. OCCURED AFTER INJURY. >REASON FOR COUMADIN Hypertension Chronic venous insufficiency UNNA BOOTS B/L - CHANGED ONCE A WEEK SOME OPEN SORES ON LEGS/WOUND CLINIC [facility] Surgical History History of endoscopy Family history of reaction to anesthesia MOTHER>SLOW TO WAKE UP [place] teeth removed 1 History of repair of retinal tear by laser photocoagulation History of cataract surgery RT/LEFT History of amputation of toe SMALL RT TOE History of colonoscopy Family History Mother Family history of diabetes mellitus Father Family history of diabetes mellitus Other Diabetes Heart disease Hypertension Social History Smoking Status: Never smoker Second Hand Exposure: No; Do You Dip or Chew Tobacco: No; Hx Alcohol Use: Yes Alcohol type: beer Hx Substance Use: No Preferred Language: Citizen Of [place] Communication Ability: Effective 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03 (CrCl 33.6) uptrending LFT WNL PCT 0.4 Blood cx (05/15): NGTD UA (05/15): WBC 0-5 L foot (05/17): GBS, Staphylococcus sp MRI of L foot (05/17): 1. Findings consistent with acute osteomyelitis of the left fifth metatarsal head. No additional sites of osteomyelitis within the left forefoot. Associated sesamoid involvement is better depicted on CT of May 15, 2024. 2. Adjacent lateral left forefoot wound with associated cellulitis and multiple locules of soft tissue gas. 1.4 x 0.8 cm pocket of fluid and gas along the lateral aspect of the left fifth metatarsal head is suggestive of a developing abscess. 3. Extensive dorsal forefoot soft tissue edema. Medications Administered Zosyn (2) Diabetic foot ulcer Diabetes mellitus type: type 2 Diabetic foot ulcer location: midfoot Laterality: left Non-pressure ulcer stage: with muscle involvement without evidence of necrosis Qualified Code(s): E11.621 - Type 2 diabetes mellitus with foot ulcer; L97.425 - Non-pressure chronic ulcer of left heel and midfoot with muscle involvement without evidence of necrosis
--- NOTE | 2024-05-18 15:48 | Communication Note ---
Date of Service: May 18, [address] infectious disease [address] Dempsey. Advised to discontinue Zosyn, start on cefazolin. Final recommendations to be determined after amputation of the toe.
[2024-05-18] MEDS: ceFAZolin 2000MG 2,000 MG/15 ML SYR IV SCH (16:33)
--- NOTE | 2024-05-18 22:07 | Podiatry Progress Note ---
Date of Service May 18, 2024 Assessment & Plan (1) Diabetic foot ulcer: (2) Chronic ulcer of lower extremity: (3) Diabetes mellitus, type II: (4) Cellulitis of left foot: Plan - Pt examined and evaluated. - Will benefit from fifth metatarsal head resection. Discussed this could be performed with or without amputation, but to me more thorough, is willing to have toe amputation. - Will plan for this later this week, likely , but as early as tomorrow if possible w/ OR timing. - Continue IV antibiotics until surgery. Admission and Anticipated Discharge Date Admission Date: May 15, 2024 Subjective Pt seen at bedside. Had MRI earlier. Has had right fifth toe amputation and is willing to have left if needed, as well. Is feeling better today than yesterday with drastic decrease in pain. Review of Systems Constitutional: + fever, + chills, + fatigue and + malai se Eyes: no problem reported Ear, Nose, Mouth, Throat: no problem reported Respiratory: no problem reported Cardiovascular: + edema; no problem reported Gastrointestinal: no nausea, no vomiting and no problem reported Musculoskeletal: no problem reported Integumentary: + skin ulcer, + wounds and + erythema Neurologic: + loss of sensation, + numbness and + pa resthesia; no generalized weakness Psychiatric: no problem reported Physical Exam Physical Exam: Lower extremity focused exam: DP/PT pulses nonpalpable b/l. CFT brisk to the digits. Diffuse edema to LE consistent with chronic venous stasis insufficiency. Left fifth metatarsal ulceration noted, sub metatarsal head. There is superficial fluctuance, consistent with ulcerated blister. Ulcer is 1.3cm in diameter ane probes 1.8 cm deep. The wound bed is non-viable, combination of slough and necrotic debris. Local cellulitis and minimal scant purulence. Deep wound cultures able to be obtained at this ulcer after debridement of obvious non-viable tissue. No ascending cellulitis, though local infection is noted. Constitutional: WD/WN, vitals as above + ill appearing and + morbidly obese Eyes: PERRL, conjunctivae normal, anicteric sclerae ENMT: external ear and nose normal, oropharynx normal Neck: trachea midline, no thyromegaly normal visual inspection Respiratory: normal respiratory effort; no respiratory distress Cardiovascular: Rate/Rhythm: regular rate and regular rhythm Extremities: normal capillary refill, + calf tenderness, + pedal edema, + edema and + varicosities Chest (Breasts): Chest: normal inspection of chest Gastrointestinal (Abdomen): Inspection/Auscultation: abdomen normal to i nspection Percussion/Palpation: + abdomen tender and abdomen soft Musculoskeletal: no cyanosis or clubbing, extremities motor strength 5/5 Head/Neck/Chest: normocephalic and head atraumatic Extremities: extremities normal to inspection Skin: + turgor decreased, + ulcer, + wound, + skin atrophy, + erythema, + fluctulance, + mottling and + nails dystrophic Neurologic: awake; no focal motor deficits Psychiatric: A+Ox3, euthymic affect Results & Data Results & Data Vital Signs (Past 12 Hours) Vital Signs Temp Pulse Resp BP Pulse Ox O2 Del Method 05/18/24 21:30 Room Air, CPAP 05/18/24 20:56 37.2 C 73 18 134/77 99 Room Air 05/18/24 15:59 37.0 C 72 18 130/72 100 Room Air Diagnostic Findings MRI reveals changes of the fifth metatarsal head consistent with acute osteomyelitis. No abscess noted but ulcer extension seen on CT scan is again confirmed. (1) Diabetic foot ulcer Diabetes mellitus type: type 2 Diabetic foot ulcer location: midfoot Laterality: left Non-pressure ulcer stage: with muscle involvement without evidence of necrosis Qualified Code(s): E11.621 - Type 2 diabetes mellitus with foot ulcer; L97.425 - Non-pressure chronic ulcer of left heel and midfoot with muscle involvement without evidence of necrosis (2) Chronic ulcer of lower extremity Laterality: left Non-pressure ulcer stage: with necrosis of muscle Qualified Code(s): L97.923 - Non-pressure chronic ulcer of unspecified part of left lower leg with necrosis of muscle (3) Diabetes mellitus, type II Diabetes mellitus terminal superintendent insulin use: with terminal superintendent use Diabetes mellitus complication status: with circulatory complication Diabetes mellitus complication detail: with peripheral angiopathy without gangrene Qualified Code(s): E11.51 - Type 2 diabetes mellitus with diabetic peripheral angiopathy without gangrene; Z79.4 - long term care administrator (current) use of insulin
[2024-05-19 06:12] LABS: Hematocrit (blood only) 21.5 % (42.0-52.0); Hemoglobin 7.3 g/dl (14.0-18.0); Mean Corpuscular Hemoglobin 28.6 pg (25.0-34.0); Mean Corpuscular Volume 84.3 fL (80.0-100.0); Mean Platelet Volume 9.7 fL (9.4-12.4); Platelet Count 202 K/uL (130-400); RDW Coefficient of Variation 16.1 % (11.5-14.5); RDW Standard Deviation 49.9 fL (36.4-46.3); Red Blood Count 2.55 M/uL (4.70-6.10)
[2024-05-19 06:35] LABS: BUN Creatinine Ratio 20.9 (10-20); Calcium 8.9 mg/dl (8.6-10.3); Creatinine Clr Calc Pharmacy 34.3 ml/min; Magnesium 1.8 mg/dl (1.7-2.4); Potassium 4.3 mmol/L (3.5-5.1)
--- NOTE | 2024-05-19 08:34 | Nephrology Progress Note ---
Date of Service May 19, 2024 Assessment & Plan (1) Acute kidney injury superimposed on chronic kidney disease: Plan: plateau'd stage 1 nonoliguric ZAHRAA with background CKD 3B from Diabetic nephropathy. Renal US w/ No Hydronephrosis. b/l renal Cysts noted and not Clinical significant for now. Now Creat plateau'd x 48 hrs 3.0 from baseline 2 in the setting of Infection. Also now on Abx which does increase ZAHRAA risk. K ok on low K diet at 4.3 again worsening nagma since arrival >> ? cause; no diarrhea reported; monitor -cont to Hold torsemide and Losartan for now. concern edema may complicate healing/ plans for debridement or other intervention but for now need to stabilize renal function -I/O not complete/detailed > appreciate efforts at more in depth tracking -no FR for now but may need one moving forward >>important that he elevate legs when not ambulating >> did d/w pt and w/ RN >> appreciate efforts to find a recliner or other way to elevate legs OOB -daily STANDING weight appreciated; 134.2 kg today -daily bmp (2) Acute on chronic anemia: Plan: even at baseline has anemia of CKD but now with infection hgb is lower. PRBC if hgb drops below 7. Likely needs DAGO. Procrit [id number] units ordered SQ x 1 on 05/18; hgb today 7.3, essentially plateau'd No IV iron given issues with Infection (3) Hypomagnesemia: Plan: Common in diabetics. Slightly low at 1.6 on admission and got 1 gm. recheck today again 1.8. If persistently low will need oral mag Supplement. >monitor q48-72 hrs while in house (4) Diabetic foot ulcer: Plan: Cellulitis, Ulcer and possible Osteomyelitis also. On Iv Zosyn and Daptomicin. Possible need of Surgery. Podiatry note 05/18 reviewed >> possible OR 05/21 for L 5th metatarsal head resection/toe amputation. Plan Time spent 55 mins Admission and Anticipated Discharge Date Admission Date: May 15, 2024 Subjective no interval clinical events. no sob, no n/v; not really aware of edema; uncomfortable sitting in bed w/ legs up; not willing to sit in armchair w/ legs propped on bed Review of Systems 2 Review of Systems: All systems reviewed & are unremarkable except as noted in Subjective Physical Exam 2 Constitutional: well developed (again sitting up in chair, legs down, on RA), well nourished and + morbidly obese Eyes: EOM intact bilaterally ENMT: Ears: no external ear abnormality Nose: no external nose abnormality Mouth: + dry oral mucous membranes Neck: no nuchal rigidity Respiratory: normal respiratory effort Auscultation: + diminished lung sounds Cardiovascular: Rate/Rhythm: regular rate and regular rhythm Extremities: + edema (2+ BL at knees) Gastrointestinal (Abdomen): Inspection/Auscultation: normal bowel sounds P ercussion/Palpation: abdomen soft; abdomen nontender Musculoskeletal: Extremities: strength 5/5 throughout Skin: no rashes, warm and dry (L foot wrapped) Results & Data Vital Signs (Past 12 Hours) Vital Signs Temp Pulse Resp BP BP Pulse Ox O2 Del Method 05/19/24 07:15 Room Air 05/19/24 07:12 36.8 C 72 16 134/80 100 Room Air, CPAP 05/18/24 21:30 Room Air, CPAP 05/18/24 20:56 37.2 C 73 18 134/77 99 Room Air Laboratory Results 05/19/24 05:31 05/19/24 05:31 (4) Diabetic foot ulcer Diabetes mellitus type: type 2 Diabetic foot ulcer location: midfoot L aterality: left Non-pressure ulcer stage: with muscle involvement without evidence of necrosis Qualified Code(s): E11.621 - Type 2 diabetes mellitus with foot ulcer; L97.425 - Non-pressure chronic ulcer of left heel and midfoot with muscle involvement without evidence of necrosis
--- NOTE | 2024-05-19 14:20 | Hospitalist Progress Note ---
Date of Service May 19, 2024 Assessment & Plan (1) Cellulitis: Plan: Left foot cellulitis/ulcer/Abscess Left fifth metatarsal head osteomyelitis--POA --Foot CT:Diffuse edema/cellulitis. Gas the plantar soft tissues overlying the distal fifth metatarsal consistent with infection/ulceration. Limited by lack of contrast material. No definite focal phlegmon or abscess. No definite underlying osteomyelitis. --Foot MRI:Findings consistent with acute osteomyelitis of the left fifth metatarsal head. No additional sites of osteomyelitis within the left forefoot. Associated sesamoid involvement is better depicted on CT of May 15, 2024. Adjacent lateral left forefoot wound with associated cellulitis and multiple locules of soft tissue gas. 1.4 x 0.8 cm pocket of fluid and gas along the lateral aspect of the left fifth metatarsal head is suggestive of a developing abscess. Extensive dorsal forefoot soft tissue edema. --Blood Cx: Negative to date --Wound culture growing group B strep, staph species --S/P at bedside debridement Continue Zosyn, doxycycline Appreciate podiatry input Continue wound care May need amputation of left fifth metatarsal head Appreciate ID input : Discussed on 05/18/2024, 05/19/2024: Advised to increase cefazolin to 2 g every 8 hours Needs to discuss with ID after amputation for final recommendations Hypomagnesemia Replete electrolytes as needed Monitor ZAHRAA on CKD III Renal USD: No hydronephrosis. Echogenic foci within the renal sinuses which could reflect nonobstructing calculi or vascular calcifications. Several renal cysts. Losartan, torsemide held Received IV fluids Monitor renal function Avoid nephrotoxic agents as able Appreciate nephrology input Bladder scan as needed to monitor for any retention Renally adjust medications as needed Cr 2.96 today Nephrology following Chronic diastolic heart failure Resume home diuretics as able Monitor volume status Anemia of chronic kidney disease No acute bleeding issues Received Procrit Monitor CBC DM II Last HbA1c 5.6 in December 2023 Continue insulin while hospitalized Monitor BGs Morbid obesity BMI 40 Other chronic conditions: Hypertension Hyperlipidemia PVD SPENCER on CPAP H/O DVT S/P 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 h/o chronic lymphedema/LE venous stasis as per records chronic LE wounds Gout: Allopurinol dose decreased due to renal insufficiency Continue home medications as able DVT Px: Heparin SQ CODE STATUS Full code Admission and Anticipated Discharge Date Admission Date: May 15, 2024 Subjective Patient is seen and examined at bedside No new complaints Denies any significant leg pain Discussed with ID today Denies any chest pain, dyspnea, nausea, vomiting, abdominal pain Review of Systems Review of Systems: All systems reviewed & are unremarkable except as noted in Subjective Physical Exam Physical Exam: Physical Exam: Vitals signs as noted above General Appearance:Obese, no apparent distress Head: normocephalic, Atraumatic Eyes: normal inspection, EOMI Neck: supple, Trachea midline Respiratory/Chest: Decreased breath sounds, CTA, No accessory muscle use Cardiovascular: S1, S2, No murmur Abdomen/GI:Soft, Non tender, Bowel sounds present Extremities/Musculoskeletal:normal inspection, 2+edema,+ chronic venous stasis, +Dressing, + left foot necrotic ulcer on plantar Neurologic/Psych:AAOX3, grossly no focal neurological deficits Skin: normal color, warm Results & Data Results & Data Vital Signs (Past 12 Hours) Vital Signs Temp Pulse Resp BP Pulse Ox O2 Del Method 05/19/24 10:47 36.6 C 65 18 126/76 100 Room Air 05/19/24 07:15 Room Air 05/19/24 07:12 36.8 C 72 16 134/80 100 Room Air, CPAP Laboratory Results Short CBC 05/19/24 Range/Units 05:31 WBC 8.50 (4.8-10.8) K/ul Hgb 7.3 L (14.0-18.0) g/dl Hct 21.5 L (42.0-52.0) % Plt Count 202 (130-400) K/uL BMP 05/19/24 05:31 Sodium 133 L Potassium 4.3 Chloride 105 Carbon Dioxide 17 L BUN 62 H Creatinine 2.96 H Glucose 109 H Calcium 8.9
[2024-05-19] MEDS: DAPTOmycin 600 MG in SYRINGE 0 ML IV SCH (20:38)
[2024-05-20 06:50] LABS: Hematocrit (blood only) 21.6 % (42.0-52.0); Hemoglobin 7.3 g/dl (14.0-18.0); Mean Corpuscular Hemoglobin 28.6 pg (25.0-34.0); Mean Corpuscular Hgb Conc 33.8 g/dL (32.0-36.0); Mean Corpuscular Volume 84.7 fL (80.0-100.0); Mean Platelet Volume 9.3 fL (9.4-12.4); Platelet Count 189 K/uL (130-400); RDW Coefficient of Variation 16.1 % (11.5-14.5); RDW Standard Deviation 49.5 fL (36.4-46.3); Red Blood Count 2.55 M/uL (4.70-6.10)
[2024-05-20 07:27] LABS: Calcium 8.8 mg/dl (8.6-10.3); Creatinine Clr Calc Pharmacy 42.2 ml/min; Potassium 4.1 mmol/L (3.5-5.1)
--- NOTE | 2024-05-20 09:01 | Hospitalist Progress Note ---
Date of Service May 20, 2024 Assessment & Plan (1) Cellulitis: Plan: Left foot cellulitis/ulcer/Abscess Left fifth metatarsal head osteomyelitis--POA --Foot CT:Diffuse edema/cellulitis. Gas the plantar soft tissues overlying the distal fifth metatarsal consistent with infection/ulceration. Limited by lack of contrast material. No definite focal phlegmon or abscess. No definite underlying osteomyelitis. --Foot MRI:Findings consistent with acute osteomyelitis of the left fifth metatarsal head. No additional sites of osteomyelitis within the left forefoot. Associated sesamoid involvement is better depicted on CT of May 15, 2024. Adjacent lateral left forefoot wound with associated cellulitis and multiple locules of soft tissue gas. 1.4 x 0.8 cm pocket of fluid and gas along the lateral aspect of the left fifth metatarsal head is suggestive of a developing abscess. Extensive dorsal forefoot soft tissue edema. --Blood Cx: Negative to date --Wound culture growing group B strep, staph species (MSSA) --S/P at bedside debridement Podiatry consulted Per podiatry - Pt Will benefit from fifth metatarsal head resection. patient is amenable to met head resection and fifth toe amputation concurrently. Plan for surgery tmrw (05/21/2024) Continue wound care ID consulted : Discussed on 05/18/2024, 05/19/2024: Advised to increase cefazolin to 2 g every 8 hours Needs to discuss with ID after amputation for final recommendations Hypomagnesemia Replete electrolytes as needed Monitor ZAHRAA on CKD III Renal US: No hydronephrosis. Echogenic foci within the renal sinuses which could reflect nonobstructing calculi or vascular calcifications. Several renal cysts. Losartan, torsemide held Received IV fluids Monitor renal function Avoid nephrotoxic agents as able Appreciate nephrology input Bladder scan as needed to monitor for any retention Renally adjust medications as needed Cr 2.4 today Nephrology following and discussed with today Chronic diastolic heart failure Resume home diuretics as able Monitor volume status Anemia of chronic kidney disease No acute bleeding issues Received Procrit Monitor CBC DM II Last HbA1c 5.6 in December 2023 Continue insulin while hospitalized Monitor BGs Morbid obesity BMI 40 Other chronic conditions: Hypertension Hyperlipidemia PVD SPENCER on CPAP H/O DVT S/P 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 h/o chronic lymphedema/LE venous stasis as per records chronic LE wounds Gout: Allopurinol dose decreased due to renal insufficiency Continue home medications as able DVT Px: Heparin SQ CODE STATUS Full code Admission and Anticipated Discharge Date Admission Date: May 15, 2024 Subjective Patient seen in follow up diabetic foot ulcer/infection Podiatry following, plan for 5th metatarsal head resection and 5th toe amputation concurrently. No new complaints Denies any significant leg pain Previous provider discussed with ID yesterday Denies any chest pain, dyspnea, nausea, vomiting, abdominal pain Review of Systems Review of Systems: All systems reviewed & are unremarkable except as noted in Subjective Physical Exam Physical Exam: General Appearance:Obese, no apparent distress Head: normocephalic, Atraumatic Eyes: normal inspection, EOMI Neck: supple Respiratory/Chest: Decreased breath sounds, CTA, No accessory muscle use Cardiovascular: S1, S2, No murmur Abdomen/GI:Soft, Non tender, Bowel sounds present Extremities/Musculoskeletal:normal inspection, + LE edema,+ chronic venous stasis, +Dressings, + left foot necrotic ulcer on plantar Neurologic/Psych:AAOX3, grossly no focal neurological deficits Skin: warm, dry Results & Data Results & Data Vital Signs (Past 12 Hours) Vital Signs Temp Pulse Resp BP Pulse Ox O2 Del Method 05/20/24 07:36 36.9 C 65 18 127/69 98 Room Air 05/20/24 07:30 Room Air 05/19/24 22:33 37 C 67 18 127/67 97 Room Air Laboratory Results 05/20/24 05/20/24 05/19/24 Range/Units 08:08 05:50 20:10 WBC 7.20 (4.8-10.8) K/ul RBC 2.55 L (4.70-6.10) M/uL Hgb 7.3 L (14.0-18.0) g/dl Hct 21.6 L (42.0-52.0) % MCV 84.7 (80.0-100.0) fL MCH 28.6 (25.0-34.0) pg MCHC 33.8 (32.0-36.0) g/dL RDW Std Deviation 49.5 H (36.4-46.3) fL RDW Coeff of Brent 16.1 H (11.5-14.5) % Plt Count 189 (130-400) K/uL MPV 9.3 L (9.4-12.4) fL Sodium 134 L (136-145) mmol/L Potassium 4.1 (3.5-5.1) mmol/L Chloride 106 (98-107) mmol/L Carbon Dioxide 19 L (21-32) mmol/L Anion Gap 9 (3-11) BUN 65 H (6-23) mg/dl Creatinine 2.41 H D (0.6-1.4) mg/dl Est Cr Clr Drug Dosing 42.2 ml/min eGFR 28.71 BUN/Creatinine Ratio 27.0 H (10-20) Glucose 99 (70-99(Fasting)) mg/dl POC Glucose 115 H 154 H (70-99) mg/dl Calcium 8.8 (8.6-10.3) mg/dl 05/19/24 05/19/24 Range/Units 17:11 11:55 WBC (4.8-10.8) K/ul RBC (4.70-6.10) M/uL Hgb (14.0-18.0) g/dl Hct (42.0-52.0) % MCV (80.0-100.0) fL MCH (25.0-34.0) pg MCHC (32.0-36.0) g/dL RDW Std Deviation (36.4-46.3) fL RDW Coeff of Brent (11.5-14.5) % Plt Count (130-400) K/uL MPV (9.4-12.4) fL Sodium (136-145) mmol/L Potassium (3.5-5.1) mmol/L Chloride (98-107) mmol/L Carbon Dioxide (21-32) mmol/L Anion Gap (3-11) BUN (6-23) mg/dl Creatinine (0.6-1.4) mg/dl Est Cr Clr Drug Dosing ml/min eGFR BUN/Creatinine Ratio (10-20) Glucose (70-99(Fasting)) mg/dl POC Glucose 136 H 180 H (70-99) mg/dl Calcium (8.6-10.3) mg/dl Medications Administered Current Inpatient Medications Acetaminophen (Acetaminophen 325 Mg Tab) 650 mg PO QID PRN PRN Reason: pain/fever Stop: 06/14/24 20:31 Last Admin: 05/20/24 05:52 Dose: 650 mg Allopurinol (Allopurinol 100 Mg Tab) 50 mg PO QAM [facility] Stop: 06/17/24 08:59 Last Admin: 05/20/24 08:45 Dose: 50 mg Atorvastatin Calcium (Atorvastatin 20 Mg Tab) 20 mg PO QAM JACK[facility] Stop: 06/15/24 08:59 Last Admin: 05/16/24 07:44 Dose: 20 mg Carvedilol (Carvedilol 6.25 Mg Tab) 6.25 mg PO BID JACK[facility] Stop: 06/14/24 20:59 Last Admin: 05/20/24 08:46 Dose: 6.25 mg Dextrose (Dextrose 50% 50 Ml Syringe) 25 - 50 ml IV UD PRN; Protocol PRN Reason: Hypoglycemia Protocol Stop: 06/15/24 00:28 Dorzolamide/Timolol (Dorzolamide/Timolol 22.3/6.8mg/Ml 10 Ml Btl) 1 drops OPB BID JACKSON Stop: 06/14/24 20:59 Last Admin: 05/20/24 08:45 Dose: 1 drops Ferrous Sulfate (Ferrous Sulfate 325 Mg Tab) 325 mg PO MoWeFr@0900 [facility] Stop: 06/17/24 08:59 Last Admin: 05/20/24 08:45 Dose: 325 mg Glucagon (Glucagon For Inj 1 Mg Vial) 1 mg SQ UD PRN; Protocol PRN Reason: Hypoglycemia Protocol Stop: 06/15/24 00:28 Glucose (Glucose 40% Gel 15 Gm Tube) 15 - 30 gm PO UD PRN; Protocol PRN Reason: Hypoglycemia Protocol Stop: 06/15/24 00:28 Glucose (Glucose 10 Tab/Tube) 4 - 8 tab PO UD PRN; Protocol PRN Reason: Hypoglycemia Treatment Stop: 06/15/24 00:28 Heparin Sodium (Porcine) (Heparin Sod 5,000 Unit/0.5 Ml Vial) 5,000 units SQ Q8 [facility] Stop: 06/15/24 21:59 Last Admin: 05/20/24 05:52 Dose: 5,000 units Hydromorphone HCl (Hydromorphone Inj 0.5 Mg/0.5 Ml Syr) 0.5 mg IV Q6H PRN PRN Reason: Pain Stop: 05/29/24 20:31 Promethazine HCl (Phenergan) 12.5 mg in 50.5 mls @ 202 mls/hr IV Q6H PRN PRN Reason: Nausea And Vomiting Stop: 06/14/24 20:31 Cefazolin Sodium (Ancef 2000mg) 2,000 mg in 15 mls @ 3.75 mls/min IV Q8H [facility] Stop: 06/29/24 15:59 Last Admin: 05/20/24 08:45 Dose: 3.75 mls/min Daptomycin 600 mg/ Syringe 12 mls @ 6 mls/min IV Q24H [facility]; Protocol Stop: 06/30/24 20:59 Last Admin: 05/19/24 20:38 Dose: 6 mls/min Insulin Aspart (Insulin Aspart Per Unit Charge) 0 units SC ACHS [facility] Stop: 06/15/24 00:28 Last Admin: 05/19/24 20:37 Dose: 1 units Insulin Glargine (Lantus Per Unit Charge) 20 units SC DAILY@0730 [facility] Stop: 06/15/24 07:29 Last Admin: 05/19/24 09:14 Dose: 20 units Lactobacillus Acidophilus (Advanced Probiotic 625 Mg Capsule) 1,250 mg PO DAILY [facility] Stop: 06/17/24 08:59 Last Admin: 05/20/24 08:46 Dose: 1,250 mg Magnesium Chloride (Magnesium Chloride W/Calcium 64mg Delayed Rel Tab) 64 mg PO BID [facility] Stop: 06/15/24 08:59 Last Admin: 05/20/24 08:46 Dose: 64 mg Melatonin (Melatonin 3 Mg Tab) 6 mg PO HS PRN PRN Reason: Sleep Stop: 06/15/24 00:36 Last Admin: 05/18/24 20:56 Dose: 6 mg Miscellaneous (Carbohydrates For Hypoglycemia ) 15 - 30 gm PO UD PRN PRN Reason: Hypoglycemia Protocol Stop: 06/15/24 00:28 Netarsudil (Netarsudil Mesylate 37 Drops/2.5 Ml Btl) 1 drops OP HS [facility] Stop: 06/16/24 20:59 Last Admin: 05/19/24 20:40 Dose: 1 drops Oxycodone HCl (Oxycodone Hcl Ir 5 Mg Tab (Immediate Release)) 5 - 10 mg PO QID PRN PRN Reason: Pain Stop: 05/29/24 20:31 Last Admin: 05/19/24 23:46 Dose: 5 mg
--- NOTE | 2024-05-20 13:19 | Nephrology Progress Note ---
Date of Service May 20, 2024 Assessment & Plan (1) Acute kidney injury superimposed on chronic kidney disease: Plan: markedly improved stage 1 nonoliguric ZAHRAA with background CKD 3B from Diabetic nephropathy. Renal US w/ No Hydronephrosis. b/l renal Cysts noted and not Clinically significant here. Creat plateau'd x 48 hrs 3.0 from baseline 2 but today moved to 2.4 in the setting of Infection. Also now on Abx which does increase ZAHRAA risk. K ok on low K diet at 4.1 worsening nagma since arrival >> ? cause; no diarrhea reported; monitor >>important that he elevate legs when not ambulating >> did d/w pt and w/ RN >> appreciate efforts to find a recliner or other way to elevate legs OOB -daily STANDING weight appreciated; 134.2 kg 05/19; 137.8 05/20 -given large wt gain, ordered FR 1.5L -cont for now to Hold torsemide and Losartan for now. concern edema may complicate healing/ plans for debridement or other intervention but for now need to stabilize renal function > monitor for opportunity to start diuretics daily -I/O likely remain not complete/detailed > appreciate efforts at more in depth tracking -daily bmp plans for fluid limit and continued standing wts, elevating feet as much as possible, holding diuretics for now reviewed in person w/ Dr Lennon; we are in agreement. (2) Acute on chronic anemia: Plan: even at baseline has anemia of CKD but now with infection hgb is lower. PRBC if hgb drops below 7. Likely needs DAGO. Procrit [id number] units ordered SQ x 1 on 05/18; hgb again today 7.3, essentially plateau'd No IV iron given issues with Infection (3) Hypomagnesemia: Plan: Common in diabetics. Slightly low at 1.6 on admission and got 1 gm. recheck today again 1.8. If persistently low will need oral mag Supplement. >monitor q48-72 hrs while in house (4) Diabetic foot ulcer: Plan: Cellulitis, Ulcer and possible Osteomyelitis also. On Iv Zosyn and Daptomicin. Possible need of Surgery. Podiatry note 05/18 reviewed >> possible OR 05/21 for L 5th metatarsal head resection/toe amputation. Plan Time spent 55 mins Admission and Anticipated Discharge Date Admission Date: May 15, 2024 Subjective no interval events; really likes / prefers recliner. ? 3+ kg wt gain in 24 hrs. some missed voids d/t bm. no n/v; does nto feel/notice edema worsening; no sob Review of Systems 2 Review of Systems: All systems reviewed & are unremarkable except as noted in Subjective Physical Exam 2 Constitutional: well developed (again sitting up in recliner, legs elevated, on RA), well nourished and + morbidly obese Eyes: EOM intact bilaterally ENMT: Ears: no external ear abnormality Nose: no external nose abnormality Mouth: + dry oral mucous membranes Neck: no nuchal rigidity Respiratory: normal respiratory effort Auscultation: + diminished lung sounds Cardiovascular: Rate/Rhythm: regular rate and regular rhythm Extremities: + edema (2+ BL at knees) Gastrointestinal (Abdomen): Inspection/Auscultation: normal bowel sounds P ercussion/Palpation: abdomen soft; abdomen nontender Musculoskeletal: Extremities: strength 5/5 throughout Skin: no rashes, warm and dry (L foot wrapped/ BLE shins wrapped) Results & Data Vital Signs (Past 12 Hours) Vital Signs Temp Pulse Resp BP Pulse Ox O2 Del Method 05/20/24 07:36 36.9 C 65 18 127/69 98 Room Air 05/20/24 07:30 Room Air Laboratory Results 05/20/24 05:50 05/20/24 05:50 (4) Diabetic foot ulcer Diabetes mellitus type: type 2 Diabetic foot ulcer location: midfoot L aterality: left Non-pressure ulcer stage: with muscle involvement without evidence of necrosis Qualified Code(s): E11.621 - Type 2 diabetes mellitus with foot ulcer; L97.425 - Non-pressure chronic ulcer of left heel and midfoot with muscle involvement without evidence of necrosis
--- NOTE | 2024-05-20 16:42 | Podiatry Progress Note ---
Date of Service May 19, 2024 Assessment & Plan (1) Diabetic foot ulcer: (2) Chronic ulcer of lower extremity: (3) Diabetes mellitus, type II: (4) Cellulitis of left foot: Plan - Pt examined and evaluated. - Will benefit from fifth metatarsal head resection. patient is amenable to met head resection and fifth toe amputation concurrently. - This is scheduled for morning. Nothing by mouth orders will be placed. - Will plan on sending the toe for pathology and cultures as well. - Can likely discharge home with primary closure and clean clinical margins expected postoperatively Admission and Anticipated Discharge Date Admission Date: May 15, 2024 Subjective patient seen at bedside. Denies any new problems. Is in good spirits and talking to his [id number]. He denies any new pain or concerns to the foot. He has done well with the IV antibiotics as well. Review of Systems Constitutional: + fever, + chills, + fatigue and + malai se Eyes: no problem reported Ear, Nose, Mouth, Throat: no problem reported Respiratory: no problem reported Cardiovascular: + edema; no problem reported Gastrointestinal: no nausea, no vomiting and no problem reported Musculoskeletal: no problem reported Integumentary: + skin ulcer, + wounds and + erythema Neurologic: + loss of sensation, + numbness and + pa resthesia; no generalized weakness Psychiatric: no problem reported Physical Exam Physical Exam: Lower extremity focused exam: DP/PT pulses nonpalpable b/l. CFT brisk to the digits. Diffuse edema to LE consistent with chronic venous stasis insufficiency. Left fifth metatarsal ulceration noted, sub metatarsal head. There is superficial fluctuance, consistent with ulcerated blister. Ulcer is 1.3cm in diameter ane probes 1.8 cm deep. The wound bed is non-viable, combination of slough and necrotic debris. Local cellulitis and minimal scant purulence, improved since prior days exam. Constitutional: WD/WN, vitals as above + ill appearing and + morbidly obese Eyes: PERRL, conjunctivae normal, anicteric sclerae ENMT: external ear and nose normal, oropharynx normal Neck: trachea midline, no thyromegaly normal visual inspection Respiratory: normal respiratory effort; no respiratory distress Cardiovascular: Rate/Rhythm: regular rate and regular rhythm Extremities: normal capillary refill, + calf tenderness, + pedal edema, + edema and + varicosities Chest (Breasts): Chest: normal inspection of chest Gastrointestinal (Abdomen): Inspection/Auscultation: abdomen normal to inspection Percussion/Palpation: + abdomen tender and abdomen soft Musculoskeletal: no cyanosis or clubbing, extremities motor strength 5/5 Head/Neck/Chest: normocephalic and head atraumatic Extremities: extremities normal to inspection Skin: + turgor decreased, + ulcer, + wound, + skin atrophy, + erythema, + fluctulance, + mottling and + nails dystrophic Neurologic: awake; no focal motor deficits Psychiatric: A+Ox3, euthymic affect Results & Data Results & Data Vital Signs (Past 12 Hours) Vital Signs Temp Pulse Resp BP Pulse Ox O2 Del Method 05/20/24 15:20 36.8 C 61 18 143/72 H 100 Room Air 05/20/24 07:36 36.9 C 65 18 127/69 98 Room Air 05/20/24 07:30 Room Air (1) Diabetic foot ulcer Diabetes mellitus type: type 2 Diabetic foot ulcer location: midfoot Laterality: left Non-pressure ulcer stage: with muscle involvement without evidence of necrosis Qualified Code(s): E11.621 - Type 2 diabetes mellitus with foot ulcer; L97.425 - Non-pressure chronic ulcer of left heel and midfoot with muscle involvement without evidence of necrosis (2) Chronic ulcer of lower extremity Laterality: left Non-pressure ulcer stage: with necrosis of muscle Qualified Code(s): L97.923 - Non-pressure chronic ulcer of unspecified part of left lower leg with necrosis of muscle (3) Diabetes mellitus, type II Diabetes mellitus snf insulin use: with long term care administrator use Diabetes mellitus complication status: with circulatory complication Diabetes mellitus complication detail: with peripheral angiopathy without gangrene Qualified Code(s): E11.51 - Type 2 diabetes mellitus with diabetic peripheral angiopathy without gangrene; Z79.4 - snf (current) use of insulin
[2024-05-20] MEDS: HEPARIN SOD 5,000 UNIT/0.5 ML VIAL SQ STA (21:20)
[2024-05-21] MEDS ORDERED: Nursing to Pharmacy Communication SCH ×3 (06:00→11:45)
[2024-05-21] MEDS: INSULIN ASPART PER UNIT CHARGE SC SCH ×2 (06:29→18:28)
[2024-05-21 06:55] LABS: Hematocrit (blood only) 24.1 % (42.0-52.0); Hemoglobin 7.7 g/dl (14.0-18.0); Mean Corpuscular Hemoglobin 27.7 pg (25.0-34.0); Mean Corpuscular Volume 86.7 fL (80.0-100.0); Mean Platelet Volume 9.7 fL (9.4-12.4); Nucleated RBC # (auto) 0.02 K/uL (0.00-0.12); Nucleated RBC % (auto) 0.3 %; Platelet Count 244 K/uL (130-400); RDW Coefficient of Variation 16.4 % (11.5-14.5); RDW Standard Deviation 51.7 fL (36.4-46.3); Red Blood Count 2.78 M/uL (4.70-6.10); White Blood Count 7.03 K/ul (4.8-10.8)
[2024-05-21 07:13] LABS: Calcium 8.7 mg/dl (8.6-10.3); Magnesium 1.9 mg/dl (1.7-2.4); Potassium 4.2 mmol/L (3.5-5.1)
[2024-05-21 07:19] LABS: BUN Creatinine Ratio 32.7 (10-20); Creatinine Clr Calc Pharmacy 51.5 ml/min; Phosphorus 3.9 mg/dl (2.5-4.9)
[2024-05-21] MEDS ORDERED: ePHEDrine sulfate 50 MG/ML AMP IV PRN (08:37)
[2024-05-21] MEDS ORDERED: fentaNYL citrate PF 100 MCG/2 ML VIAL IV PRN (08:37)
[2024-05-21] MEDS ORDERED: HYDROmorphone INJ 1 MG/ML SYRINGE IV PRN (08:37)
[2024-05-21] MEDS ORDERED: ONDANSETRON INJ 2 MG/ML 2 ML VIAL IV PRN (08:37)
[2024-05-21] MEDS ORDERED: PROMETHAZINE HCL 6.25 MG in SODIUM CHLORIDE 0.9% 50 ML IV PRN (08:37)
--- NOTE | 2024-05-21 08:42 | Anesthesiology Consultation ---
Date of Service May 21, 2024 Assessment & Plan (1) Encounter for pre-operative examination: Chart Review Chart Review: Acceptable Risk for Surgery and Patient NOT seen in Pre Admission Testing Consults Requested none History Surgery Operation Date: 05/21/24 09:15 Proposed Procedures p Left 5th Metatarsal Ray Amputation - Jarek Cardenas DPM Height/Weight Height: 6 ft Weight: 136.2 kg Allergies Allergy/AdvReac Type Severity Reaction Status Date / Time No Known Allergies Allergy Verified 05/21/24 08:27 Medications Home Medications Medication Instructions Recorded Confirmed Last Taken semaglutide 2 mg/dose (8 mg/3 mL) 2 mg subcut WK 01/29/23 05/15/24 05/09/24 subcutaneous pen injector (Ozempic) ascorbic acid (vitamin C) 1,000 mg 1 g PO QAM #30 tabs 11/22/23 05/15/24 05/15/24 tablet atorvastatin 20 mg tablet 20 mg PO QAM #30 tabs 11/22/23 05/15/24 05/15/24 carvedilol 6.25 mg tablet 6.25 mg PO BID #60 tabs 11/22/23 05/15/24 05/15/24 dorzolamide 22.3 mg-timolol 6.8 1 drp OPB BID #10 mL 11/22/23 05/15/24 05/15/24 mg/mL eye drops epoetin judith 20,000 unit/2 mL 20,000 unit (2 mL) subcut UD #8 mL 11/22/23 05/15/24 Unknown injection solution (Procrit) netarsudil 0.02 % eye drops 1 drp OPL HS #2.5 mL 11/22/23 05/15/24 05/13/24 (Rhopressa) omega [id number]-fish oil 100 1 cap PO QAM #30 caps 11/22/23 05/15/24 05/15/24 mg-160 mg-1,000 mg capsule torsemide 20 mg tablet 20 mg PO QAM 30 days #30 tabs 11/22/23 05/15/24 05/15/24 allopurinol 100 mg tablet 200 mg PO QAM 05/15/24 05/15/24 05/15/24 ferrous sulfate 325 mg (65 mg 325 mg PO 3XWK 05/15/24 05/15/24 05/15/24 iron) tablet,delayed release insulin glargine 100 unit/mL (3 20 unit subcut QA 05/15/24 05/15/24 05/15/24 mL) subcutaneous pen losartan 25 mg tablet 25 mg PO QA 05/15/24 05/15/24 05/15/24 Active Medications Generic Name Dose Route Start Last Admin Trade Name Freq PRN Reason Stop Dose Admin Acetaminophen 650 mg 05/15/24 20:32 05/20/24 20:24 Acetaminophen 325 Mg Tab PO 06/14/24 20:31 650 mg QID PRN Administration pain/fever Allopurinol 50 mg 05/18/24 09:00 05/20/24 08:45 Allopurinol 100 Mg Tab PO 06/17/24 08:59 50 mg QAM JACKSON Administration Atorvastatin Calcium 20 mg 05/16/24 09:00 05/16/24 07:44 Atorvastatin 20 Mg Tab PO 06/15/24 08:59 20 mg QAM JACKSON Administration Carvedilol 6.25 mg 05/15/24 21:00 05/20/24 20:25 Carvedilol 6.25 Mg Tab PO 06/14/24 20:59 6.25 mg BID JACKSON Administration Dorzolamide/Timolol 1 drops 05/15/24 21:00 05/20/24 20:25 Dorzolamide/Timolol 22.3/6.8mg/Ml 10 Ml Btl OPB 06/14/24 20:59 1 drops BID JACKSON Administration Ferrous Sulfate 325 mg 05/18/24 09:00 05/20/24 08:45 Ferrous Sulfate 325 Mg Tab PO 06/17/24 08:59 325 mg MoWeFr@0900 JACKSON Administration Heparin Sodium (Porcine) 5,000 units 05/16/24 22:00 05/20/24 13:06 Heparin Sod 5,000 Unit/0.5 Ml Vial SQ 06/15/24 21:59 5,000 units Q8 JACKSON Administration Cefazolin Sodium 2,000 mg in 15 mls @ 3.75 mls/min 05/18/24 16:00 05/21/24 08:00 Ancef 2000mg IV 06/29/24 15:59 3.75 mls/min Q8H JACKOSN Administration Daptomycin 600 mg/ Syringe 12 mls @ 6 mls/min 05/19/24 21:00 05/20/24 20:34 IV 06/30/24 20:59 6 mls/min Q24H JACKSON Administration Protocol Insulin Aspart 0 units 05/21/24 06:00 05/21/24 06:29 Insulin Aspart Per Unit Charge SC 06/20/24 05:59 Not Given Q6 JACKSON Lactobacillus Acidophilus 1,250 mg 05/18/24 09:00 05/20/24 08:46 Advanced Probiotic 625 Mg Capsule PO 06/17/24 08:59 1,250 mg DAILY JACKSON Administration Magnesium Chloride 64 mg 05/16/24 09:00 05/20/24 20:25 Magnesium Chloride W/Calcium 64mg Delayed Rel Tab PO 06/15/24 08:59 64 mg BID JACKSON Administration Melatonin 6 mg 05/16/24 00:37 05/20/24 23:48 Melatonin 3 Mg Tab PO 06/15/24 00:36 6 mg HS PRN Administration Sleep Netarsudil 1 drops 05/17/24 21:00 05/20/24 20:26 Netarsudil Mesylate 37 Drops/2.5 Ml Btl OP 06/16/24 20:59 1 drops HS JACKSON Administration Oxycodone HCl 5 - 10 mg 05/15/24 20:32 05/20/24 23:51 Oxycodone Hcl Ir 5 Mg Tab (Immediate Release) PO 05/29/24 20:31 5 mg QID PRN Administration Pain NPO Date Last Intake of Fluids: 05/20/24 Time Last Intake of Fluids: 17:30 Date Last Intake of Solids: 05/20/24 Time Last Intake of Solids: 17:30 Past Medical History Medical History Bacteremia due to Gram-negative bacteria ZAHRAA (acute kidney injury) History of colon polyps BENIGN Carpal tunnel syndrome of right wrist Benign cyst of kidney FATTY TISSUE GERD (gastroesophageal reflux disease) Hx of gout Vitamin B12 deficiency PT NOT SURE Anemia Chronic anticoagulation Diabetic neuropathy Mild nonproliferative diabetic retinopathy CKD (chronic kidney disease) stage 3, GFR 30-59 ml/min RLS (restless legs syndrome) Sleep apnea CPAP History of DVT (deep vein thrombosis) LEFT LEG IN 1980. OCCURED AFTER INJURY. >REASON FOR COUMADIN Hypertension Chronic venous insufficiency UNNA BOOTS B/L - CHANGED ONCE A WEEK SOME OPEN SORES ON LEGS/WOUND [facility] nephrology note 05/20/24: Assessment & Plan (1) Acute kidney injury superimposed on chronic kidney disease: Plan: markedly improved stage 1 nonoliguric ZAHRAA with background CKD 3B from Diabetic nephropathy. Renal US w/ No Hydronephrosis. b/l renal Cysts noted and not Clinically significant here. Creat plateau'd x 48 hrs 3.0 from baseline 2 but today moved to 2.4 in the setting of Infection. Also now on Abx which does increase ZAHRAA risk. K ok on low K diet at 4.1 worsening nagma since arrival >> ? cause; no diarrhea reported; monitor (2) Acute on chronic anemia: Plan: even at baseline has anemia of CKD but now with infection hgb is lower. PRBC if hgb drops below 7. Likely needs DAGO. Procrit 39200 units ordered SQ x 1 on 05/18; hgb again today 7.3, essentially plateau'd No IV iron given issues with Infection Past Family History Family History Mother Family history of diabetes mellitus Father Family history of diabetes mellitus Other Diabetes Heart disease Hypertension Past Surgical History Surgical History History of endoscopy Family history of reaction to anesthesia MOTHER>SLOW TO WAKE UP [place] teeth removed 1 History of repair of retinal tear by laser photocoagulation History of cataract surgery RT/LEFT History of amputation of toe SMALL RT TOE History of colonoscopy Social History Smoking Status: Never smoker Do You Dip or Chew Tobacco: No Hx Alcohol Use: Yes Alcohol type: beer alcohol intake frequency: holidays/special occasions only Hx Substance Use: No substance use type: does not use Physical Exam Vital Signs Last Vital Signs Temp 37.0 C 05/21/24 08:27 Pulse 63 05/21/24 08:27 Resp 18 05/21/24 08:27 BP 131/76 05/21/24 08:27 Pulse Ox 100 05/21/24 08:27 O2 Del Method Room Air 05/21/24 08:27 Testing Laboratory Results 05/21/24 05:51 05/21/24 05:51 PT 12.2 Seconds (9.0-12.0) H 05/15/24 15:50 INR 1.1 (0.9-1.1) 05/15/24 15:50 APTT 35 Seconds (21-31) H 05/15/24 15:50 Urine Color Yellow 05/15/24 19:15 Urine Appearance Clear (Clear) 05/15/24 19:15 Urine pH 5.0 (4.5-7.5) 05/15/24 19:15 Ur Specific [place] 1.012 (1.000-1.030) 05/15/24 19:15 Urine Protein Negative (Negative) 05/15/24 19:15 Urine Glucose (UA) Negative (Negative) 05/15/24 19:15 Urine Ketones Negative (Negative) 05/15/24 19:15 Urine Nitrite Negative (Negative) 05/15/24 19:15 Ur Leukocyte Esterase Trace (Negative) H 05/15/24 19:15 Urine WBC (Auto) 0-5 /hpf (0-5) 05/15/24 19:15 Urine RBC (Auto) 0-2 /hpf (0-2) 05/15/24 19:15 U Hyaline Cast (Auto) 0-2 /lpf (0-2) 05/15/24 19:15 U Epithel Cells (Auto) 0-2 /hpf (0-2) 05/15/24 19:15 Urine Bacteria (Auto) None Seen (None Seen) 05/15/24 19:15 05/15/24 17:02 Aerobic Blood Culture - Final Blood No growth in Aerobic bottle after 5 days. Anaerobic Blood Culture - Final No growth in Anaerobic bottle after 5 days. 05/15/24 17:04 Aerobic Blood Culture - Final Blood No growth in Aerobic bottle after 5 days. Anaerobic Blood Culture - Final No growth in Anaerobic bottle after 5 days. 05/17/24 10:00 Gram Stain - Final Foot,Left Aerobic and Anaerobic Culture - Preliminary Group B Beta Strep Staphylococcus aureus 05/21/24 06:01 POC Glucose 119 H Electrocardiogram Date: 05/15/24 DICTATED BY: Mika Johns MD Test Reason : Blood Pressure : */* mmHG Vent. Rate : 91 BPM Atrial Rate : 91 BPM P-R Int : 126 ms QRS Dur : 92 ms QT Int : 364 ms P-R-T Axes : -7 25 43 degrees QTcB Int : 447 ms Normal sinus rhythm Poor R wave progression, consider anterior MS vs. lead placement vs. LVH Abnormal ECG When compared with ECG of 31-Jan-2024 14:42, No significant change was found Confirmed by Mika Johns ([id number]) on 05/15/2024 6:46:52 PM Chest X-Ray Date: 05/15/24 XR chest 1V not portable CLINICAL HISTORY: Sepsis. COMPARISON STUDY: Chest CT January 29, 2023. Chest radiograph January 31, 2024. FINDINGS: Lung volumes are normal. Lungs are clear. There is no pneumothorax or pleural effusion. Cardiac size is normal. Mediastinal contours are normal. There is no evidence for pulmonary edema. IMPRESSION: No acute cardiopulmonary findings. Echocardiogram Date: 11/15/23 EF 55-60% No sig valvular disease. LVH LV wall motion is normal.
[2024-05-21] MEDS ORDERED: LIDOCAINE 2% 2 ML VIAL/AMP(20MG/ML) INFIL ONE (08:57)
[2024-05-21] MEDS ORDERED: PROPOFOL IV EMULSION 10 MG/ML 20 ML VIAL IV ONE (08:57)
[2024-05-21] MEDS ORDERED: KETAMINE HCL 10MG/ML SYR ONE (08:58)
[2024-05-21] MEDS: SODIUM CHLORIDE 0.9% 1,000 ML IV SCH (08:58)
[2024-05-21] MEDS ORDERED: MIDAZOLAM HCL 1 MG/ML 2ML VIAL ONE (08:58)
[2024-05-21] MEDS ORDERED: DexMEDEtomidine HCL IV 100 MCG/ML VIAL IV ONE (08:58)
[2024-05-21] MEDS ORDERED: SODIUM CHLORIDE 0.9% PF INJ 10 ML VIAL ONE (08:59)
[2024-05-21] MEDS ORDERED: LACTATED RINGER'S 1,000 ML IV SCH (09:00)
--- NOTE | 2024-05-21 09:09 | History & Physical Bridge Note ---
Date of Service May 21, 2024 History & Physical Bridge Note I have examined the patient, reviewed the History & Physical and in the interval since the performance of the History & Physical I have noted the following changes of clinical significance: no changes noted. Plan for left fifth ray partial resection. Consent obtained.
--- NOTE | 2024-05-21 09:12 | Hospitalist Progress Note ---
Date of Service May 21, 2024 Assessment & Plan (1) Cellulitis: Plan: Left foot cellulitis/ulcer/Abscess Left fifth metatarsal head osteomyelitis--POA --Foot CT:Diffuse edema/cellulitis. Gas the plantar soft tissues overlying the distal fifth metatarsal consistent with infection/ulceration. Limited by lack of contrast material. No definite focal phlegmon or abscess. No definite underlying osteomyelitis. --Foot MRI:Findings consistent with acute osteomyelitis of the left fifth metatarsal head. No additional sites of osteomyelitis within the left forefoot. Associated sesamoid involvement is better depicted on CT of May 15, 2024. Adjacent lateral left forefoot wound with associated cellulitis and multiple locules of soft tissue gas. 1.4 x 0.8 cm pocket of fluid and gas along the later al aspect of the left fifth metatarsal head is suggestive of a developing abscess. Extensive dorsal forefoot soft tissue edema. --Blood Cx: Negative to date --Wound culture growing group B strep, staph species (MSSA) --S/P at bedside debridement Podiatry consulted - Pt is s/p Left 5th Metatarsal Ray Amputation(Left), (05/21/2024) - Jarek Cardenas, NAVA Pt tolerated procedure well Continue wound care, may need wound vac Pathology and cultx of surg. specimen pending ID consulted : Discussed on 05/18/2024, 05/19/2024: Advised to increase cefazolin to 2 g every 8 hours Needs to discuss with ID after amputation for final recommendations Hypomagnesemia Replete electrolytes as needed Monitor ZAHRAA on CKD III Renal US: No hydronephrosis. Echogenic foci within the renal sinuses which could reflect nonobstructing calculi or vascular calcifications. Several renal cysts. Losartan, torsemide held Received IV fluids Monitor renal function Avoid nephrotoxic agents as able Appreciate nephrology input Bladder scan as needed to monitor for any retention Renally adjust medications as needed Cr 2.4 -> 2 today Nephrology following Chronic diastolic heart failure Resume home diuretics as able Monitor volume status Anemia of chronic kidney disease No acute bleeding issues Received Procrit Monitor CBC DM II Last HbA1c 5.6 in December 2023 Continue insulin while hospitalized Monitor BGs Morbid obesity BMI 40 Other chronic conditions: Hypertension Hyperlipidemia PVD SPENCER on CPAP H/O DVT S/P 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 h/o chronic lymphedema/LE venous stasis as per records chronic LE wounds Gout: Allopurinol dose decreased due to renal insufficiency Continue home medications as able DVT Px: Heparin SQ CODE STATUS Full code Admission and Anticipated Discharge Date Admission Date: May 15, 2024 Subjective Patient seen in follow up diabetic foot ulcer/infection Podiatry following, s/p p Left 5th Metatarsal Ray Amputation(Left) - Jarek Cardenas, DPM Pt is laying in bed in NAD, present at the bedside Overall feeling well. Denies any fever, chills, chest pain, shortness of breath, abd. pain, nausea Review of Systems Review of Systems: All systems reviewed & are unremarkable except as noted in Subjective Physical Exam Physical Exam: General Appearance:Obese, no apparent distress Head: normocephalic, Atraumatic Eyes: normal inspection, EOMI Neck: supple Respiratory/Chest: Decreased breath sounds, CTA, No accessory muscle use Cardiovascular: S1, S2, No murmur Abdomen/GI:Soft, Non tender, Bowel sounds present Extremities/Musculoskeletal:normal inspection, + LE edema,+ chronic venous stasis, +surg. Dressings over Left foot Neurologic/Psych:AAOX3, grossly no focal neurological deficits Skin: warm, dry Results & Data Results & Data Vital Signs (Past 12 Hours) Vital Signs Temp Pulse Resp BP BP Pulse Ox O2 Del Method 05/21/24 08:27 37.0 C 63 18 131/76 100 Room Air 05/21/24 08:19 36.5 C 62 18 117/83 94 Room Air 05/21/24 06:40 36.9 C 64 16 135/67 99 Room Air 05/20/24 22:58 37 C 64 18 131/68 99 Room Air Laboratory Results 05/21/24 05/21/24 05/20/24 Range/Units 06:01 05:51 20:11 WBC 7.03 (4.8-10.8) K/ul RBC 2.78 L (4.70-6.10) M/uL Hgb 7.7 L (14.0-18.0) g/dl Hct 24.1 L (42.0-52.0) % MCV 86.7 (80.0-100.0) fL MCH 27.7 (25.0-34.0) pg MCHC 32.0 (32.0-36.0) g/dL RDW Std Deviation 51.7 H (36.4-46.3) fL RDW Coeff of Brent 16.4 H (11.5-14.5) % Plt Count 244 (130-400) K/uL MPV 9.7 (9.4-12.4) fL Absolute Nucleated RBC 0.02 (0.00-0.12) K/uL Nucleated RBC % (auto) 0.3 % Sodium 132 L (136-145) mmol/L Potassium 4.2 (3.5-5.1) mmol/L Chloride 105 (98-107) mmol/L Carbon Dioxide 18 L (21-32) mmol/L Anion Gap 9 (3-11) BUN 65 H (6-23) mg/dl Creatinine 1.99 H D (0.6-1.4) mg/dl Est Cr Clr Drug Dosing 51.5 ml/min eGFR 36.12 BUN/Creatinine Ratio 32.7 H (10-20) Glucose 107 H (70-99(Fasting)) mg/dl POC Glucose 119 H 145 H (70-99) mg/dl Calcium 8.7 (8.6-10.3) mg/dl Phosphorus 3.9 (2.5-4.9) mg/dl Magnesium 1.9 (1.7-2.4) mg/dl Total Creatine Kinase 21 L (30-223) U/L 05/20/24 05/20/24 Range/Units 17:01 12:01 WBC (4.8-10.8) K/ul RBC (4.70-6.10) M/uL Hgb (14.0-18.0) g/dl Hct (42.0-52.0) % MCV (80.0-100.0) fL MCH (25.0-34.0) pg MCHC (32.0-36.0) g/dL RDW Std Deviation (36.4-46.3) fL RDW Coeff of Brent (11.5-14.5) % Plt Count (130-400) K/uL MPV (9.4-12.4) fL Absolute Nucleated RBC (0.00-0.12) K/uL Nucleated RBC % (auto) % Sodium (136-145) mmol/L Potassium (3.5-5.1) mmol/L Chloride (98-107) mmol/L Carbon Dioxide (21-32) mmol/L Anion Gap (3-11) BUN (6-23) mg/dl Creatinine (0.6-1.4) mg/dl Est Cr Clr Drug Dosing ml/min eGFR BUN/Creatinine Ratio (10-20) Glucose (70-99(Fasting)) mg/dl POC Glucose 129 H 156 H (70-99) mg/dl Calcium (8.6-10.3) mg/dl Phosphorus (2.5-4.9) mg/dl Magnesium (1.7-2.4) mg/dl Total Creatine Kinase (30-223) U/L Medications Administered Current Inpatient Medications Acetaminophen (Acetaminophen 325 Mg Tab) 650 mg PO QID PRN PRN Reason: pain/fever Stop: 06/14/24 20:31 Last Admin: 05/20/24 20:24 Dose: 650 mg Allopurinol (Allopurinol 100 Mg Tab) 50 mg PO QAM [facility] Stop: 06/17/24 08:59 Last Admin: 05/20/24 08:45 Dose: 50 mg Atorvastatin Calcium (Atorvastatin 20 Mg Tab) 20 mg PO QAM [facility] [place] Stop: 06/15/24 08:59 Last Admin: 05/16/24 07:44 Dose: 20 mg Carvedilol (Carvedilol 6.25 Mg Tab) 6.25 mg PO BID [facility] Stop: 06/14/24 20:59 Last Admin: 05/20/24 20:25 Dose: 6.25 mg Dextrose (Dextrose 50% 50 Ml Syringe) 25 - 50 ml IV UD PRN; Protocol PRN Reason: Hypoglycemia Protocol Stop: 06/15/24 00:28 Dorzolamide/Timolol (Dorzolamide/Timolol 22.3/6.8mg/Ml 10 Ml Btl) 1 drops OPB BID JACKSON Stop: 06/14/24 20:59 Last Admin: 05/20/24 20:25 Dose: 1 drops Ephedrine Sulfate (Ephedrine Sulfate 50 Mg/Ml Amp) 5 mg IV Q5M PRN PRN Reason: PACU Use Only-SBP<90 mmHg Stop: 05/21/24 16:37 Fentanyl Citrate (Fentanyl Citrate Pf 100 Mcg/2 Ml Vial) 25 mcg IV Q5M PRN PRN Reason: PACU Use Only-Pain Stop: 05/21/24 16:38 Ferrous Sulfate (Ferrous Sulfate 325 Mg Tab) 325 mg PO MoWeFr@0900 [facility] Stop: 06/17/24 08:59 Last Admin: 05/20/24 08:45 Dose: 325 mg Glucagon (Glucagon For Inj 1 Mg Vial) 1 mg SQ UD PRN; Protocol PRN Reason: Hypoglycemia Protocol Stop: 06/15/24 00:28 Glucose (Glucose 40% Gel 15 Gm Tube) 15 - 30 gm PO UD PRN; Protocol PRN Reason: Hypoglycemia Protocol Stop: 06/15/24 00:28 Glucose (Glucose 10 Tab/Tube) 4 - 8 tab PO UD PRN; Protocol PRN Reason: Hypoglycemia Treatment Stop: 06/15/24 00:28 Heparin Sodium (Porcine) (Heparin Sod 5,000 Unit/0.5 Ml Vial) 5,000 units SQ Q8 JACKSON Stop: 06/15/24 21:59 Last Admin: 05/20/24 13:06 Dose: 5,000 units Hydromorphone HCl (Hydromorphone Inj 0.5 Mg/0.5 Ml Syr) 0.5 mg IV Q6H PRN PRN Reason: Pain Stop: 05/29/24 20:31 Hydromorphone HCl (Hydromorphone Inj 1 Mg/Ml Syringe) 0.25 mg IV Q5M PRN PRN Reason: PACU Use Only-Pain Stop: 05/21/24 16:38 Promethazine HCl (Phenergan) 12.5 mg in 50.5 mls @ 202 mls/hr IV Q6H PRN PRN Reason: Nausea And Vomiting Stop: 06/14/24 20:31 Cefazolin Sodium (Ancef 2000mg) 2,000 mg in 15 mls @ 3.75 mls/min IV Q8H [facility] [place] Stop: 06/29/24 15:59 Last Admin: 05/21/24 08:00 Dose: 3.75 mls/min Daptomycin 600 mg/ Syringe 12 mls @ 6 mls/min IV Q24H [facility]; Protocol Stop: 06/30/24 20:59 Last Admin: 05/20/24 20:34 Dose: 6 mls/min Promethazine HCl 6.25 mg/ (Sodium Chloride) 50.25 mls @ 204 mls/hr IV ONCE PRN PRN Reason: PACU Use Only-Nausea/Vomiting Stop: 05/21/24 16:38 Sodium Chloride (Nss) 1,000 mls @ 15 mls/hr IV .Q24H [facility] [place] Stop: 06/20/24 08:59 Last Infusion: 05/21/24 08:58 Dose: 0 mls/hr Insulin Aspart (Insulin Aspart Per Unit Charge) 0 units SC Q6 [facility] [place] Stop: 06/20/24 05:59 Last Admin: 05/21/24 06:29 Dose: Not Given Insulin Glargine (Lantus Per Unit Charge) 10 units SC DAILY@0730 [facility] [place] Stop: 06/20/24 07:29 Lactobacillus Acidophilus (Advanced Probiotic 625 Mg Capsule) 1,250 mg PO DAILY [facility] [place] Stop: 06/17/24 08:59 Last Admin: 05/20/24 08:46 Dose: 1,250 mg Magnesium Chloride (Magnesium Chloride W/Calcium 64mg Delayed Rel Tab) 64 mg PO BID [facility] [place] Stop: 06/15/24 08:59 Last Admin: 05/20/24 20:25 Dose: 64 mg Melatonin (Melatonin 3 Mg Tab) 6 mg PO HS PRN PRN Reason: Sleep Stop: 06/15/24 00:36 Last Admin: 05/20/24 23:48 Dose: 6 mg Miscellaneous (Carbohydrates For Hypoglycemia ) 15 - 30 gm PO UD PRN PRN Reason: Hypoglycemia Protocol Stop: 06/15/24 00:28 Netarsudil (Netarsudil Mesylate 37 Drops/2.5 Ml Btl) 1 drops OP HS [facility] [place] Stop: 06/16/24 20:59 Last Admin: 05/20/24 20:26 Dose: 1 drops Ondansetron HCl (Ondansetron Inj 2 Mg/Ml 2 Ml Vial) 4 mg IV ONCE PRN PRN Reason: PACU Use Only-Nausea/Vomiting Stop: 05/21/24 16:38 Oxycodone HCl (Oxycodone Hcl Ir 5 Mg Tab (Immediate Release)) 5 - 10 mg PO QID PRN PRN Reason: Pain Stop: 05/29/24 20:31 Last Admin: 05/20/24 23:51 Dose: 5 mg
[2024-05-21] MEDS ORDERED: ONDANSETRON INJ 2 MG/ML 2 ML VIAL ONE (09:56)
[2024-05-21] MEDS: BUPIVACAINE 0.5 % 5 MG/1 ML MPF 30ML VIAL ONE (10:12)
--- NOTE | 2024-05-21 10:14 | Post Operative Brief Note ---
Immediate Post Op Note Date of Surgery May 21, 2024 Pre & Post Diagnosis Operation Date: 05/21/24 09:15 Pre-Op Diagnosis: Left Foot Cellulitis/Ulcer/Abscess; Left Fifth Metatarsal Head Osteomyelitis Post-Op Diagnosis: Left Foot Cellulitis/Ulcer/Abscess; Left Fifth Metatarsal Head Osteomyelitis I identified the patient and participated in the time-out.: Yes Procedure Operation Date: 05/21/24 09:15 Actual Procedures p Left 5th Metatarsal Ray Amputation(Left) - Jarek Cardenas DPM Surgeon Jarek Cardenas DPM Jigger Operator None Estimated Blood Loss 20 Findings Consistent with Post-Op Diagnosis Specimens Left fifth toe/metatarsal Left fifth metatarsal proximal margin Left fifth metatarsal culture Anesthesia Type MAC Complications none Disposition Accompanied Patient To Recovery: Yes Disposition: Recovery Room
--- NOTE | 2024-05-21 11:28 | Operative Report ---
Post Operative Report Pre & Post Diagnosis Operation Date: 05/21/24 09:15 Pre-Op Diagnosis: Left Foot Cellulitis/Ulcer/Abscess; Left Fifth Metatarsal Head Osteomyelitis Post-Op Diagnosis: Left Foot Cellulitis/Ulcer/Abscess; Left Fifth Metatarsal Head Osteomyelitis I identified the patient and participated in the time-out.: Yes Procedure Operation Date: 05/21/24 09:15 Actual Procedures p Left 5th Metatarsal Ray Amputation(Left) - Jarek Cardenas DPM Surgeon Jarek Cardenas DPM Comfort Station Supervisor None Estimated Blood Loss 20 Findings Consistent with Post-Op Diagnosis Worsening soft tissue infection was noted to this plantar ulceration. The underlying infection led to significant tunneling from the plantar ulcer to the dorsal aspect of the foot along the lateral aspect of the fifth metatarsal. The fifth metatarsal was noted to be softened and necrotic consistent with the suspected osteomyelitis. Because of this dorsal tunneling, no primary closure was able to be performed with excision of the infected tissue and bone. The remaining fifth metatarsal bone left in the foot was noted to be clinically clean and proximal margin was able to be obtained to hopefully confirm no further osteomyelitis remaining. Specimens 3 separate specimens were obtained, including the majority of the toes sent for permanent pathology, a proximal margin of the fifth metatarsal to ideally rule out remaining osteomyelitis, as well as clinically infected bone from the head of the fifth metatarsal for culture and sensitivity testing. Anesthesia Type MAC Complications none Disposition Accompanied Patient To Recovery: Yes Disposition: Recovery Room Indications This patient is a longstanding patient of ours who recently presented to the hospital with new onset of left foot infection. This was noted to have significant underlying osteomyelitis clinically and with advanced imaging. After discussion of his options, including IV antibiotics and wound care versus amputation, he has elected for amputation of the fifth ray. He has had this performed on the right previously. Preoperative instructions, postoperative instructions, relative risks, and outcomes were all discussed at length. All questions were answered. Consent was obtained for this left foot fifth ray resection. Description of Procedure The patient was brought to the operating room and placed on the operating table in the supine position. Following administration of IV sedation, local analgesia was obtained utilizing 20 cc of half percent Marcaine and 1/5 ray block. The left lower extremity was then scrubbed, prepped, and draped in the usual aseptic manner. No tourniquet was utilized during the duration of this case. Attention was directed to the lateral aspect of the patient's foot where a plantar ulceration was noted with nonviable fibrotic/necrotic overlying tissue. Upon curettage, this immediately probed along a tunnel to the dorsal aspect of the foot where a new ulceration was forming. 2 converging semielliptical incisions were made circumferentially around the fifth toe and this extensive ulceration full-thickness to the fifth metatarsal. The extension of the incision was made along the lateral aspect of the fifth metatarsal to clinically healthy appearing bone. The fifth metatarsal was transected at this level, along the proximal aspect of the bone. The toe and affected metatarsal were transected and passed off to the back table in 1 specimen initially. A separate specimen of proximal margin was resected from the remaining fifth metatarsal within the foot. This was also passed off to the back table. With minimal bleeding, electrocautery was performed at the distal aspect of the surgical site where some superficial subcutaneous bleeding was noted. No deep bleeding vessels were needed to be tied off. No significant purulence or abscess was noted more proximal or more deep to the surgical site. With this extensive soft tissue deficit now, retention sutures were placed to attempt to cover the remaining fifth metatarsal bone and soft tissue though no attempted primary closure was performed otherwise. The remainder of the wound was packed with half-inch iodoform packing gauze after extensive flushing and removal of any further nonviable tissue. The removed fifth ray was then sectioned to obtain bone cultures from the most affected site with the remainder of the amputated portion sent for pathology testing. The surgical site was then dressed with Xeroform gauze, 4 x 4 gauze, Kerlix, and an Guru wrap in addition to an ABD pad directly over the 4 x 4's. The patient tolerated the procedure well and was transferred to the recovery room with vital signs stable and vascular status intact to the feet. Following postoperative monitoring, the patient will be evaluated for a wound VAC, which was ordered, and continued monitoring here while inpatient. I attest to the content of the Intraoperative Record and any orders documented therein. Any exceptions are noted below.
[2024-05-21] MEDS: LANTUS PER UNIT CHARGE SC SCH (12:11)
--- NOTE | 2024-05-21 14:32 | Anesthesiology Progress Note ---
Date of Service May 21, 2024 Anesthesia Post Procedure Vital Signs Vital Signs: Temp Pulse Pulse Resp BP BP Pulse Ox 05/21/24 12:56 36.3 C L 60 18 131/68 100 05/21/24 12:00 36.6 C 64 18 136/71 100 05/21/24 11:30 36.6 C 62 18 144/76 H 100 05/21/24 11:00 36.4 C L 62 16 126/68 05/21/24 10:35 64 22 124/58 L 100 05/21/24 10:25 61 19 126/55 L 100 05/21/24 10:18 36.4 C L 62 18 118/55 L 100 05/21/24 08:27 37.0 C 63 18 131/76 100 05/21/24 08:19 36.5 C 62 18 117/83 94 05/21/24 06:40 36.9 C 64 16 135/67 99 05/20/24 22:58 37 C 64 18 131/68 99 05/20/24 15:20 36.8 C 61 18 143/72 H 100 O2 Del Method O2 Flow Rate 05/21/24 12:56 Room Air 05/21/24 12:00 Room Air 05/21/24 11:30 Room Air 05/21/24 11:00 Room Air 05/21/24 10:35 Oxymask 2 05/21/24 10:25 Oxymask 3 05/21/24 10:18 Oxymask 5 05/21/24 08:27 Room Air 05/21/24 08:19 Room Air 05/21/24 06:40 Room Air 05/20/24 22:58 Room Air 05/20/24 15:20 Room Air Pain Intensity Left Foot: Pain Intensity: 0 Transfer of Care Handoff Completed per policy Notes Mental Status: alert / awake / arousable and participated in evaluation Patient Amnestic to Procedure: Yes Nausea / Vomiting: adequately controlled Pain: adequately controlled Airway Patency, RR, SpO2: stable & adequate BP & HR: stable & adequate Hydration State: stable & adequate Anesthetic Complications: no major complications apparent and Pt Satisfied with anesthetic care
[2024-05-22 07:39] LABS: Hematocrit (blood only) 22.6 % (42.0-52.0); Hemoglobin 7.4 g/dl (14.0-18.0); Mean Corpuscular Hemoglobin 28.4 pg (25.0-34.0); Mean Corpuscular Hgb Conc 32.7 g/dL (32.0-36.0); Mean Corpuscular Volume 86.6 fL (80.0-100.0); Mean Platelet Volume 9.5 fL (9.4-12.4); Platelet Count 219 K/uL (130-400); RDW Coefficient of Variation 16.2 % (11.5-14.5); RDW Standard Deviation 50.2 fL (36.4-46.3); Red Blood Count 2.61 M/uL (4.70-6.10); White Blood Count 6.78 K/ul (4.8-10.8)
[2024-05-22 07:54] LABS: BUN Creatinine Ratio 31.6 (10-20); Calcium 8.4 mg/dl (8.6-10.3); Creatinine Clr Calc Pharmacy 52.5 ml/min; Magnesium 1.9 mg/dl (1.7-2.4); Phosphorus 3.8 mg/dl (2.5-4.9); Potassium 4.4 mmol/L (3.5-5.1)
--- NOTE | 2024-05-22 12:38 | Hospitalist Progress Note ---
Date of Service May 22, 2024 Assessment & Plan (1) Cellulitis: Plan: Left foot cellulitis/ulcer/Abscess Left fifth metatarsal head osteomyelitis--POA --Foot CT:Diffuse edema/cellulitis. Gas the plantar soft tissues overlying the distal fifth metatarsal consistent with infection/ulceration. Limited by lack of contrast material. No definite focal phlegmon or abscess. No definite underlying osteomyelitis. --Foot MRI:Findings consistent with acute osteomyelitis of the left fifth metatarsal head. No additional sites of osteomyelitis within the left forefoot. Associated sesamoid involvement is better depicted on CT of May 15, 2024. Adjacent lateral left forefoot wound with associated cellulitis and multiple locules of soft tissue gas. 1.4 x 0.8 cm pocket of fluid and gas along the later al aspect of the left fifth metatarsal head is suggestive of a developing abscess. Extensive dorsal forefoot soft tissue edema. --Blood Cx: Negative to date --Wound culture growing group B strep, staph species (MSSA) --S/P at bedside debridement Podiatry consulted - Pt is s/p Left 5th Metatarsal Ray Amputation(Left), (05/21/2024) - Jarek Cardenas, NAVA Pt tolerated procedure well Continue wound care, may need wound vac Pathology and cultx of surg. specimen pending ID consulted : Discussed on 05/18/2024, 05/19/2024: Advised to increase cefazolin to 2 g every 8 hours Needs to discuss with ID after amputation for final recommendations Hypomagnesemia Replete electrolytes as needed Monitor ZAHRAA on CKD III Renal US: No hydronephrosis. Echogenic foci within the renal sinuses which could reflect nonobstructing calculi or vascular calcifications. Several renal cysts. Losartan, torsemide held Received IV fluids Monitor renal function Avoid nephrotoxic agents as able Appreciate nephrology input Bladder scan as needed to monitor for any retention Renally adjust medications as needed Cr 2 Nephrology following Chronic diastolic heart failure Resume home diuretics as able Monitor volume status Anemia of chronic kidney disease No acute bleeding issues Received Procrit Monitor CBC DM II Last HbA1c 5.6 in December 2023 Continue insulin while hospitalized Monitor BGs Morbid obesity BMI 40 Other chronic conditions: Hypertension Hyperlipidemia PVD SPENCER on CPAP H/O DVT S/P 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 h/o chronic lymphedema/LE venous stasis as per records chronic LE wounds Gout: Allopurinol dose decreased due to renal insufficiency Continue home medications as able DVT Px: Heparin SQ CODE STATUS Full code Admission and Anticipated Discharge Date Admission Date: May 15, 2024 Subjective Patient seen in follow up diabetic foot ulcer/infection Podiatry following, s/p p Left 5th Metatarsal Ray Amputation - Jarek Cardenas, DPM Pt is laying in bed in NAD Overall feeling well. Denies any fever, chills, chest pain, shortness of breath, abd. pain, nausea Seen by wound care nurse this AM, dressings were changed Review of Systems Review of Systems: All systems reviewed & are unremarkable except as noted in Subjective Physical Exam Physical Exam: General Appearance:Obese, no apparent distress Head: normocephalic, Atraumatic Eyes: normal inspection, EOMI Neck: supple Respiratory/Chest: Decreased breath sounds, CTA, No accessory muscle use Cardiovascular: S1, S2, No murmur Abdomen/GI:Soft, Non tender, Bowel sounds present Extremities/Musculoskeletal:normal inspection, + LE edema,+ chronic venous stasis, +Dressings over Left foot Neurologic/Psych:AAOX3, grossly no focal neurological deficits Skin: warm, dry Results & Data Results & Data Vital Signs (Past 12 Hours) Vital Signs Temp Pulse Resp BP Pulse Ox O2 Del Method 05/22/24 07:16 37 C 64 18 128/67 97 Room Air 05/22/24 04:11 36.7 C 61 16 153/66 H 98 Room Air Laboratory Results 05/22/24 05/22/24 05/22/24 Range/Units 11:49 07:28 06:59 WBC 6.78 (4.8-10.8) K/ul RBC 2.61 L (4.70-6.10) M/uL Hgb 7.4 L (14.0-18.0) g/dl Hct 22.6 L (42.0-52.0) % MCV 86.6 (80.0-100.0) fL MCH 28.4 (25.0-34.0) pg MCHC 32.7 (32.0-36.0) g/dL RDW Std Deviation 50.2 H (36.4-46.3) fL RDW Coeff of Brent 16.2 H (11.5-14.5) % Plt Count 219 (130-400) K/uL MPV 9.5 (9.4-12.4) fL Sodium 136 (136-145) mmol/L Potassium 4.4 (3.5-5.1) mmol/L Chloride 110 H (98-107) mmol/L Carbon Dioxide 19 L (21-32) mmol/L Anion Gap 7 (3-11) BUN 62 H (6-23) mg/dl Creatinine 1.96 H (0.6-1.4) mg/dl Est Cr Clr Drug Dosing 52.5 ml/min eGFR 36.79 BUN/Creatinine Ratio 31.6 H (10-20) Glucose 103 H (70-99(Fasting)) mg/dl POC Glucose 120 H 113 H (70-99) mg/dl Calcium 8.4 L (8.6-10.3) mg/dl Phosphorus 3.8 (2.5-4.9) mg/dl Magnesium 1.9 (1.7-2.4) mg/dl 05/21/24 05/21/24 Range/Units 20:31 16:28 WBC (4.8-10.8) K/ul RBC (4.70-6.10) M/uL Hgb (14.0-18.0) g/dl Hct (42.0-52.0) % MCV (80.0-100.0) fL MCH (25.0-34.0) pg MCHC (32.0-36.0) g/dL RDW Std Deviation (36.4-46.3) fL RDW Coeff of Brent (11.5-14.5) % Plt Count (130-400) K/uL MPV (9.4-12.4) fL Sodium (136-145) mmol/L Potassium (3.5-5.1) mmol/L Chloride (98-107) mmol/L Carbon Dioxide (21-32) mmol/L Anion Gap (3-11) BUN (6-23) mg/dl Creatinine (0.6-1.4) mg/dl Est Cr Clr Drug Dosing ml/min eGFR BUN/Creatinine Ratio (10-20) Glucose (70-99(Fasting)) mg/dl POC Glucose 144 H 117 H (70-99) mg/dl Calcium (8.6-10.3) mg/dl Phosphorus (2.5-4.9) mg/dl Magnesium (1.7-2.4) mg/dl Medications Administered Current Inpatient Medications Acetaminophen (Acetaminophen 325 Mg Tab) 650 mg PO QID PRN PRN Reason: pain/fever Stop: 06/14/24 20:31 Last Admin: 05/20/24 20:24 Dose: 650 mg Allopurinol (Allopurinol 100 Mg Tab) 50 mg PO QAM [facility] Stop: 06/17/24 08:59 Last Admin: 05/22/24 08:40 Dose: 50 mg Atorvastatin Calcium (Atorvastatin 20 Mg Tab) 20 mg PO QAM [facility] Stop: 06/15/24 08:59 Last Admin: 05/16/24 07:44 Dose: 20 mg Carvedilol (Carvedilol 6.25 Mg Tab) 6.25 mg PO BID [facility] Stop: 06/14/24 20:59 Last Admin: 05/22/24 08:40 Dose: 6.25 mg Dextrose (Dextrose 50% 50 Ml Syringe) 25 - 50 ml IV UD PRN; Protocol PRN Reason: Hypoglycemia Protocol Stop: 06/15/24 00:28 Dorzolamide/Timolol (Dorzolamide/Timolol 22.3/6.8mg/Ml 10 Ml Btl) 1 drops OPB BID [facility] Stop: 06/14/24 20:59 Last Admin: 05/22/24 08:43 Dose: 1 drops Ferrous Sulfate (Ferrous Sulfate 325 Mg Tab) 325 mg PO MoWeFr@0900 [facility] Stop: 06/17/24 08:59 Last Admin: 05/22/24 08:40 Dose: 325 mg Glucagon (Glucagon For Inj 1 Mg Vial) 1 mg SQ UD PRN; Protocol PRN Reason: Hypoglycemia Protocol Stop: 06/15/24 00:28 Glucose (Glucose 40% Gel 15 Gm Tube) 15 - 30 gm PO UD PRN; Protocol PRN Reason: Hypoglycemia Protocol Stop: 06/15/24 00:28 Glucose (Glucose 10 Tab/Tube) 4 - 8 tab PO UD PRN; Protocol PRN Reason: Hypoglycemia Treatment Stop: 06/15/24 00:28 Heparin Sodium (Porcine) (Heparin Sod 5,000 Unit/0.5 Ml Vial) 5,000 units SQ Q8 [facility] Stop: 06/15/24 21:59 Last Admin: 05/20/24 13:06 Dose: 5,000 units Hydromorphone HCl (Hydromorphone Inj 0.5 Mg/0.5 Ml Syr) 0.5 mg IV Q6H PRN PRN Reason: Pain Stop: 05/29/24 20:31 Promethazine HCl (Phenergan) 12.5 mg in 50.5 mls @ 202 mls/hr IV Q6H PRN PRN Reason: Nausea And Vomiting Stop: 06/14/24 20:31 Cefazolin Sodium (Ancef 2000mg) 2,000 mg in 15 mls @ 3.75 mls/min IV Q8H [facility] Stop: 06/29/24 15:59 Last Admin: 05/22/24 07:44 Dose: 3.75 mls/min Daptomycin 600 mg/ Syringe 12 mls @ 6 mls/min IV Q24H [facility]; Protocol Stop: 06/30/24 20:59 Last Admin: 05/21/24 20:44 Dose: 6 mls/min Sodium Chloride (Nss) 1,000 mls @ 15 mls/hr IV .Q24H [facility] Stop: 06/20/24 08:59 Last Infusion: 05/21/24 09:37 Dose: Infused Insulin Aspart (Insulin Aspart Per Unit Charge) 0 units SC ACHS [facility] Stop: 06/20/24 05:59 Last Admin: 05/22/24 12:13 Dose: 4 units Insulin Glargine (Lantus Per Unit Charge) 10 units SC DAILY@0730 [facility] Stop: 06/20/24 07:29 Last Admin: 05/22/24 08:45 Dose: 10 units Lactobacillus Acidophilus (Advanced Probiotic 625 Mg Capsule) 1,250 mg PO DAILY [facility] Stop: 06/17/24 08:59 Last Admin: 05/22/24 08:40 Dose: 1,250 mg Magnesium Chloride (Magnesium Chloride W/Calcium 64mg Delayed Rel Tab) 64 mg PO BID [facility] Stop: 06/15/24 08:59 Last Admin: 05/22/24 08:40 Dose: 64 mg Melatonin (Melatonin 3 Mg Tab) 6 mg PO HS PRN PRN Reason: Sleep Stop: 06/15/24 00:36 Last Admin: 05/21/24 20:44 Dose: 6 mg Miscellaneous (Carbohydrates For Hypoglycemia ) 15 - 30 gm PO UD PRN PRN Reason: Hypoglycemia Protocol Stop: 06/15/24 00:28 Netarsudil (Netarsudil Mesylate 37 Drops/2.5 Ml Btl) 1 drops OP HS [facility] Stop: 06/16/24 20:59 Last Admin: 05/21/24 20:44 Dose: 1 drops Oxycodone HCl (Oxycodone Hcl Ir 5 Mg Tab (Immediate Release)) 5 - 10 mg PO QID PRN PRN Reason: Pain Stop: 05/29/24 20:31 Last Admin: 05/22/24 12:19 Dose: 5 mg
--- NOTE | 2024-05-22 18:11 | Nephrology Progress Note ---
Date of Service May 22, 2024 Assessment & Plan (1) Acute kidney injury superimposed on chronic kidney disease: Plan: resolved stage 1 nonoliguric ZAHRAA with background CKD 3B from Diabetic nephropathy. Renal US w/ No Hydronephrosis. b/l renal Cysts noted and not Clinically significant here. Creat plateau'd x 48 hrs 3.0 from baseline 2 but today moved to 2.0 from 2.4 in the setting of osteomyelitis. worsening nagma since arrival >> ? cause; no diarrhea reported; monitor >>important that he elevate legs when not ambulating >> did d/w pt and w/ RN >> appreciate efforts to find a recliner or other way to elevate legs OOB -daily STANDING weight appreciated; 134.2 kg 05/19; 137.8 05/20; 137.2 05/22 -continue FR 1.5L, daily BMP, strict I/O, daily standing weight while in hospital Will sign off NEPHRO d/c RECS -resume torsemide OP in AM (so ordered) -cont to hold losartan > resume as appropriate day after d/c or at f/u PCP visit -bmp at hospital d/c pcp visit -increased allopurinol to 300 mg daily and pls continue at hospital d/c >> he likely needs an even higher dose than this; has tolerated in past; dose has been frequently lowered in hospital even though he needs higher doses to control uric acid levels -no indication for neph hospital d/c appt unless issues arise; keep regularly scheduled neph f/u -arrange f/u EGD RADHA after d/c given anemia/ duodenal ulcer hx/ recommended EGD 12/2023 -already has hematology f/u arranged D/C recs reviewed w/ Dr Lennon including resumption torsemide, other med and lab f/u as above; we are in agreement. (2) Acute on chronic anemia: Plan: even at baseline has anemia of CKD but now with infection hgb is lower. ALSO had EGD Sep 2023 w/ duodenal ulcers and 3 month f/u EGD recommended/not done. also follows w/ hematology and gets regular OP procrit injections. PRBC if hgb drops below 7. Procrit 64138 units ordered SQ x 1 on 05/18; hgb again today 7.4, essentially plateau'd >ordered redose procrit for tonight 40,000 units -f/u as above No IV iron given issues with Infection (3) Hypomagnesemia: Plan: Common in diabetics. Slightly low at 1.6 on admission and got 1 gm. recheck today again 1.9. If persistently low will need oral mag Supplement. >monitor q48-72 hrs while in house (4) Diabetic foot ulcer: Plan: Cellulitis, Ulcer and possible Osteomyelitis also. On Iv Zosyn and Daptomicin. Possible need of Surgery. Podiatry note 05/18 reviewed >> possible OR 05/21 for L 5th metatarsal head resection/toe amputation. Plan Time spent 55 mins Admission and Anticipated Discharge Date Admission Date: May 15, 2024 Subjective s/p L 5th metatarsal amputation 05/21; likely to need a wound vac; pain controlled; knows not to let leg hang down; no sob; no bleeding Review of Systems 2 Review of Systems: All systems reviewed & are unremarkable except as noted in Subjective Physical Exam 2 Constitutional: well developed (again sitting up in bed, legs elevated, on RA), well nourished and + morbidly obese Eyes: EOM intact bilaterally ENMT: Ears: no external ear abnormality Nose: no external nose abnormality Mouth: + dry oral mucous membranes Neck: no nuchal rigidity Respiratory: normal respiratory effort Auscultation: + diminished lung sounds Cardiovascular: Rate/Rhythm: regular rate and regular rhythm Extremities: + edema (2+ BL at knees) Gastrointestinal (Abdomen): Inspection/Auscultation: normal bowel sounds P ercussion/Palpation: abdomen soft; abdomen nontender Musculoskeletal: Extremities: strength 5/5 throughout Skin: no rashes, warm and dry (L foot wrapped/ BLE shins wrapped) Results & Data Vital Signs (Past 12 Hours) Vital Signs Temp Pulse Resp BP Pulse Ox O2 Del Method 05/22/24 16:10 37.0 C 69 16 144/72 H 100 Room Air 05/22/24 15:16 Room Air 05/22/24 07:16 37 C 64 18 128/67 97 Room Air Laboratory Results 05/22/24 06:59 05/22/24 06:59 (4) Diabetic foot ulcer Diabetes mellitus type: type 2 Diabetic foot ulcer location: midfoot L aterality: left Non-pressure ulcer stage: with muscle involvement without evidence of necrosis Qualified Code(s): E11.621 - Type 2 diabetes mellitus with foot ulcer; L97.425 - Non-pressure chronic ulcer of left heel and midfoot with muscle involvement without evidence of necrosis
[2024-05-22] MEDS: EPOETIN ALFA 40,000 UNITS/ML VIAL SQ ONE (21:36)
[2024-05-23 06:39] LABS: Hemoglobin 7.2 g/dl (14.0-18.0); Mean Corpuscular Hemoglobin 28.3 pg (25.0-34.0); Mean Corpuscular Hgb Conc 32.7 g/dL (32.0-36.0); Mean Corpuscular Volume 86.6 fL (80.0-100.0); Mean Platelet Volume 9.4 fL (9.4-12.4); Nucleated RBC # (auto) 0.02 K/uL (0.00-0.12); Nucleated RBC % (auto) 0.3 %; Platelet Count 246 K/uL (130-400); RDW Coefficient of Variation 16.1 % (11.5-14.5); RDW Standard Deviation 50.4 fL (36.4-46.3); Red Blood Count 2.54 M/uL (4.70-6.10); White Blood Count 7.42 K/ul (4.8-10.8)
[2024-05-23 06:59] LABS: BUN Creatinine Ratio 31.7 (10-20); Calcium 8.5 mg/dl (8.6-10.3); Creatinine Clr Calc Pharmacy 55.3 ml/min; Magnesium 1.8 mg/dl (1.7-2.4); Phosphorus 3.3 mg/dl (2.5-4.9); Potassium 4.5 mmol/L (3.5-5.1)
[2024-05-23] MEDS: allopurinoL 300 MG TAB PO SCH (08:29)
[2024-05-23] MEDS: TORSEMIDE 20 MG TAB PO SCH (08:29)
--- NOTE | 2024-05-23 09:16 | Hospitalist Progress Note ---
Date of Service May 23, 2024 Assessment & Plan (1) Cellulitis: Plan: Left foot cellulitis/ulcer/Abscess Left fifth metatarsal head osteomyelitis--POA --Foot CT:Diffuse edema/cellulitis. Gas the plantar soft tissues overlying the distal fifth metatarsal consistent with infection/ulceration. Limited by lack of contrast material. No definite focal phlegmon or abscess. No definite underlying osteomyelitis. --Foot MRI:Findings consistent with acute osteomyelitis of the left fifth metatarsal head. No additional sites of osteomyelitis within the left forefoot. Associated sesamoid involvement is better depicted on CT of May 15, 2024. Adjacent lateral left forefoot wound with associated cellulitis and multiple locules of soft tissue gas. 1.4 x 0.8 cm pocket of fluid and gas along the later al aspect of the left fifth metatarsal head is suggestive of a developing abscess. Extensive dorsal forefoot soft tissue edema. --Blood Cx: Negative to date --Wound culture growing group B strep, staph species (MSSA) --S/P at bedside debridement Podiatry consulted - Pt is s/p Left 5th Metatarsal Ray Amputation(Left), (05/21/2024) - Jarek Cardenas, NAVA Pt tolerated procedure well Continue wound care, may need wound vac Pathology and cultx of surg. specimen pending ID consulted : Discussed on 05/18/2024, 05/19/2024: Advised to increase cefazolin to 2 g every 8 hours Needs to discuss with ID after amputation for final recommendations Hypomagnesemia Replete electrolytes as needed Monitor ZAHARA on CKD III Renal US: No hydronephrosis. Echogenic foci within the renal sinuses which could reflect nonobstructing calculi or vascular calcifications. Several renal cysts. Losartan, torsemide held Received IV fluids Monitor renal function Avoid nephrotoxic agents as able Appreciate nephrology input Bladder scan as needed to monitor for any retention Renally adjust medications as needed Cr 1.9 Nephrology consulted Chronic diastolic heart failure Resume home diuretics as able, resume torsemide Monitor volume status Anemia of chronic kidney disease No acute bleeding issues Received Procrit Monitor CBC DM II Last HbA1c 5.6 in December 2023 Continue insulin while hospitalized Monitor BGs Morbid obesity BMI 40 Other chronic conditions: Hypertension Hyperlipidemia PVD SPENCER on CPAP H/O DVT S/P 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 h/o chronic lymphedema/LE venous stasis as per records chronic LE wounds Gout: Allopurinol dose decreased due to renal insufficiency Continue home medications as able DVT Px: Heparin SQ CODE STATUS Full code Admission and Anticipated Discharge Date Admission Date: May 15, 2024 Subjective Patient seen in follow up diabetic foot ulcer/infection Podiatry following, s/p p Left 5th Metatarsal Ray Amputation - Jarek Cardenas, DPM Pt is laying in bed in NAD Overall feeling well. Denies any fever, chills, chest pain, shortness of breath, abd. pain, nausea Review of Systems Review of Systems: All systems reviewed & are unremarkable except as noted in Subjective Physical Exam Physical Exam: General Appearance:Obese, no apparent distress Head: normocephalic, Atraumatic Eyes: normal inspection, EOMI Neck: supple Respiratory/Chest: Decreased breath sounds, CTA, No accessory muscle use Cardiovascular: S1, S2, No murmur Abdomen/GI:Soft, Non tender, Bowel sounds present Extremities/Musculoskeletal:normal inspection, + LE edema,+ chronic venous stasis, +Dressings over Left foot Neurologic/Psych:AAOX3, grossly no focal neurological deficits Skin: warm, dry Results & Data Results & Data Vital Signs (Past 12 Hours) Vital Signs Temp Pulse Resp BP BP Pulse Ox O2 Del Method 05/23/24 08:00 66 18 155/71 H 95 Room Air 05/23/24 07:05 36.7 C 64 16 139/86 100 Room Air Laboratory Results 05/23/24 05/23/24 05/22/24 Range/Units 07:43 06:05 20:58 WBC 7.42 (4.8-10.8) K/ul RBC 2.54 L (4.70-6.10) M/uL Hgb 7.2 L (14.0-18.0) g/dl Hct 22.0 L (42.0-52.0) % MCV 86.6 (80.0-100.0) fL MCH 28.3 (25.0-34.0) pg MCHC 32.7 (32.0-36.0) g/dL RDW Std Deviation 50.4 H (36.4-46.3) fL RDW Coeff of Brent 16.1 H (11.5-14.5) % Plt Count 246 (130-400) K/uL MPV 9.4 (9.4-12.4) fL Absolute Nucleated RBC 0.02 (0.00-0.12) K/uL Nucleated RBC % (auto) 0.3 % Sodium 136 (136-145) mmol/L Potassium 4.5 (3.5-5.1) mmol/L Chloride 110 H (98-107) mmol/L Carbon Dioxide 18 L (21-32) mmol/L Anion Gap 8 (3-11) BUN 59 H (6-23) mg/dl Creatinine 1.86 H (0.6-1.4) mg/dl Est Cr Clr Drug Dosing 55.3 ml/min eGFR 39.17 BUN/Creatinine Ratio 31.7 H (10-20) Glucose 108 H (70-99(Fasting)) mg/dl POC Glucose 116 H 143 H (70-99) mg/dl Calcium 8.5 L (8.6-10.3) mg/dl Phosphorus 3.3 (2.5-4.9) mg/dl Magnesium 1.8 (1.7-2.4) mg/dl 05/22/24 05/22/24 05/22/24 Range/Units 20:31 16:31 11:49 WBC (4.8-10.8) K/ul RBC (4.70-6.10) M/uL Hgb (14.0-18.0) g/dl Hct (42.0-52.0) % MCV (80.0-100.0) fL MCH (25.0-34.0) pg MCHC (32.0-36.0) g/dL RDW Std Deviation (36.4-46.3) fL RDW Coeff of Brent (11.5-14.5) % Plt Count (130-400) K/uL MPV (9.4-12.4) fL Absolute Nucleated RBC (0.00-0.12) K/uL Nucleated RBC % (auto) % Sodium (136-145) mmol/L Potassium (3.5-5.1) mmol/L Chloride (98-107) mmol/L Carbon Dioxide (21-32) mmol/L Anion Gap (3-11) BUN (6-23) mg/dl Creatinine (0.6-1.4) mg/dl Est Cr Clr Drug Dosing ml/min eGFR BUN/Creatinine Ratio (10-20) Glucose (70-99(Fasting)) mg/dl POC Glucose 144 H 128 H 120 H (70-99) mg/dl Calcium (8.6-10.3) mg/dl Phosphorus (2.5-4.9) mg/dl Magnesium (1.7-2.4) mg/dl Medications Administered Current Inpatient Medications Acetaminophen (Acetaminophen 325 Mg Tab) 650 mg PO QID PRN PRN Reason: pain/fever Stop: 06/14/24 20:31 Last Admin: 05/23/24 08:53 Dose: 650 mg Allopurinol (Allopurinol 300 Mg Tab) 300 mg PO QAM [facility] Stop: 06/22/24 08:59 Last Admin: 05/23/24 08:29 Dose: 300 mg Atorvastatin Calcium (Atorvastatin 20 Mg Tab) 20 mg PO QAM [facility] Stop: 06/15/24 08:59 Last Admin: 05/16/24 07:44 Dose: 20 mg Carvedilol (Carvedilol 6.25 Mg Tab) 6.25 mg PO BID [facility] Stop: 06/14/24 20:59 Last Admin: 05/23/24 08:30 Dose: 6.25 mg Dextrose (Dextrose 50% 50 Ml Syringe) 25 - 50 ml IV UD PRN; Protocol PRN Reason: Hypoglycemia Protocol Stop: 06/15/24 00:28 Dorzolamide/Timolol (Dorzolamide/Timolol 22.3/6.8mg/Ml 10 Ml Btl) 1 drops OPB BID [facility] Stop: 06/14/24 20:59 Last Admin: 05/23/24 08:30 Dose: 1 drops Famotidine (Famotidine 40 Mg Tablet) 40 mg PO QAM [facility] Stop: 06/22/24 09:14 Ferrous Sulfate (Ferrous Sulfate 325 Mg Tab) 325 mg PO MoWeFr@0900 [facility] Stop: 06/17/24 08:59 Last Admin: 05/22/24 08:40 Dose: 325 mg Glucagon (Glucagon For Inj 1 Mg Vial) 1 mg SQ UD PRN; Protocol PRN Reason: Hypoglycemia Protocol Stop: 06/15/24 00:28 Glucose (Glucose 40% Gel 15 Gm Tube) 15 - 30 gm PO UD PRN; Protocol PRN Reason: Hypoglycemia Protocol Stop: 06/15/24 00:28 Glucose (Glucose 10 Tab/Tube) 4 - 8 tab PO UD PRN; Protocol PRN Reason: Hypoglycemia Treatment Stop: 06/15/24 00:28 Heparin Sodium (Porcine) (Heparin Sod 5,000 Unit/0.5 Ml Vial) 5,000 units SQ Q8 [facility] Stop: 06/15/24 21:59 Last Admin: 05/20/24 13:06 Dose: 5,000 units Hydromorphone HCl (Hydromorphone Inj 0.5 Mg/0.5 Ml Syr) 0.5 mg IV Q6H PRN PRN Reason: Pain Stop: 05/29/24 20:31 Promethazine HCl (Phenergan) 12.5 mg in 50.5 mls @ 202 mls/hr IV Q6H PRN PRN Reason: Nausea And Vomiting Stop: 06/14/24 20:31 Cefazolin Sodium (Ancef 2000mg) 2,000 mg in 15 mls @ 3.75 mls/min IV Q8H [facility] Stop: 06/29/24 15:59 Last Admin: 05/23/24 08:29 Dose: 3.75 mls/min Daptomycin 600 mg/ Syringe 12 mls @ 6 mls/min IV Q24H [facility]; Protocol Stop: 06/30/24 20:59 Last Admin: 05/22/24 21:00 Dose: 6 mls/min Sodium Chloride (Nss) 1,000 mls @ 15 mls/hr IV .Q24H [facility] Stop: 06/20/24 08:59 Last Admin: 05/23/24 09:14 Dose: 15 mls/hr Insulin Aspart (Insulin Aspart Per Unit Charge) 0 units SC ACHS [facility] Stop: 06/20/24 05:59 Last Admin: 05/23/24 08:48 Dose: 5 units Insulin Glargine (Lantus Per Unit Charge) 10 units SC DAILY@0730 [facility] Stop: 06/20/24 07:29 Last Admin: 05/23/24 08:49 Dose: 10 units Lactobacillus Acidophilus (Advanced Probiotic 625 Mg Capsule) 1,250 mg PO DAILY [facility] Stop: 06/17/24 08:59 Last Admin: 05/23/24 08:29 Dose: 1,250 mg Magnesium Chloride (Magnesium Chloride W/Calcium 64mg Delayed Rel Tab) 64 mg PO BID [facility] Stop: 06/15/24 08:59 Last Admin: 05/23/24 08:30 Dose: 64 mg Melatonin (Melatonin 3 Mg Tab) 6 mg PO HS PRN PRN Reason: Sleep Stop: 06/15/24 00:36 Last Admin: 05/21/24 20:44 Dose: 6 mg Miscellaneous (Carbohydrates For Hypoglycemia ) 15 - 30 gm PO UD PRN PRN Reason: Hypoglycemia Protocol Stop: 06/15/24 00:28 Netarsudil (Netarsudil Mesylate 37 Drops/2.5 Ml Btl) 1 drops OP HS [facility] Stop: 06/16/24 20:59 Last Admin: 05/22/24 20:59 Dose: 1 drops Oxycodone HCl (Oxycodone Hcl Ir 5 Mg Tab (Immediate Release)) 5 - 10 mg PO QID PRN PRN Reason: Pain Stop: 05/29/24 20:31 Last Admin: 05/22/24 21:00 Dose: 5 mg Pantoprazole Sodium (Pantoprazole 40 Mg Tab) [facility] [place] Stop: 06/22/24 09:14 Torsemide (Torsemide 20 Mg Tab) [facility] [place] Stop: 06/22/24 08:59 Last Admin: 05/23/24 08:29 Dose: 20 mg
[2024-05-23] MEDS: PANTOprazole 40 MG TAB PO SCH (09:51)
[2024-05-23] MEDS: FAMOTIDINE 40 MG TABLET PO SCH (09:51)
[2024-05-23] MEDS: HYDROmorphone INJ 0.5 MG/0.5 ML SYR IV PRN (19:41)
[2024-05-24 06:40] LABS: Hematocrit (blood only) 23.6 % (42.0-52.0); Hemoglobin 7.7 g/dl (14.0-18.0); Mean Corpuscular Hemoglobin 28.3 pg (25.0-34.0); Mean Corpuscular Hgb Conc 32.6 g/dL (32.0-36.0); Mean Corpuscular Volume 86.8 fL (80.0-100.0); Mean Platelet Volume 9.3 fL (9.4-12.4); Nucleated RBC # (auto) 0.02 K/uL (0.00-0.12); Nucleated RBC % (auto) 0.3 %; Platelet Count 246 K/uL (130-400); RDW Coefficient of Variation 16.9 % (11.5-14.5); RDW Standard Deviation 52.2 fL (36.4-46.3); Red Blood Count 2.72 M/uL (4.70-6.10); White Blood Count 6.33 K/ul (4.8-10.8)
[2024-05-24 06:52] LABS: BUN Creatinine Ratio 32.4 (10-20); Calcium 8.5 mg/dl (8.6-10.3); Creatinine Clr Calc Pharmacy 57.5 ml/min; Magnesium 1.7 mg/dl (1.7-2.4); Phosphorus 3.3 mg/dl (2.5-4.9); Potassium 4.6 mmol/L (3.5-5.1)
--- NOTE | 2024-05-24 08:57 | Hospitalist Progress Note ---
Date of Service May 24, 2024 Assessment & Plan (1) Cellulitis: Plan: Left foot cellulitis/ulcer/Abscess Left fifth metatarsal head osteomyelitis--POA --Foot CT:Diffuse edema/cellulitis. Gas the plantar soft tissues overlying the distal fifth metatarsal consistent with infection/ulceration. Limited by lack of contrast material. No definite focal phlegmon or abscess. No definite underlying osteomyelitis. --Foot MRI:Findings consistent with acute osteomyelitis of the left fifth metatarsal head. No additional sites of osteomyelitis within the left forefoot. Associated sesamoid involvement is better depicted on CT of May 15, 2024. Adjacent lateral left forefoot wound with associated cellulitis and multiple locules of soft tissue gas. 1.4 x 0.8 cm pocket of fluid and gas along the later al aspect of the left fifth metatarsal head is suggestive of a developing abscess. Extensive dorsal forefoot soft tissue edema. --Blood Cx: Negative to date --Wound culture growing group B strep, staph species (MSSA) --S/P at bedside debridement Podiatry consulted - Pt is s/p Left 5th Metatarsal Ray Amputation(Left), (05/21/2024) - Jarek Cardenas, NAVA Pt tolerated procedure well Continue wound care, may need wound vac Pathology and cultx of surg. specimen pending ID consulted : Discussed on 05/18/2024, 05/19/2024: Advised to increase cefazolin to 2 g every 8 hours Needs to discuss with ID after amputation for final recommendations Hypomagnesemia Replete electrolytes as needed Monitor ZAHRAA on CKD III Renal US: No hydronephrosis. Echogenic foci within the renal sinuses which could reflect nonobstructing calculi or vascular calcifications. Several renal cysts. Losartan, torsemide held - now torsemide resumed Received IV fluids Monitor renal function Avoid nephrotoxic agents as able Appreciate nephrology input Bladder scan as needed to monitor for any retention Renally adjust medications as needed Cr 1.8 Nephrology consulted Chronic diastolic heart failure Resume home diuretics as able, resume torsemide Monitor volume status Anemia of chronic kidney disease Received Procrit Also, pt has hx of duodenal ulcer and plan for repeat EGD, started PPI, will need to follow up as outpt Hematology appointment as outpt also arranged Monitor CBC DM II Last HbA1c 5.6 in December 2023 Continue insulin while hospitalized Monitor BGs Morbid obesity BMI 40 Other chronic conditions: Hypertension Hyperlipidemia PVD SPENCER on CPAP H/O DVT S/P 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 h/o chronic lymphedema/LE venous stasis as per records chronic LE wounds Gout: Allopurinol Continue home medications as able DVT Px: Heparin SQ CODE STATUS Full code Admission and Anticipated Discharge Date Admission Date: May 15, 2024 Subjective Patient seen in follow up of diabetic foot ulcer/infection Podiatry consulted, s/p p Left 5th Metatarsal Ray Amputation - Jarek Cardenas, NAVA Pt is laying in bed in NAD Overall feeling well. Denies any fever, chills, chest pain, shortness of breath, abd. pain, nausea Review of Systems Review of Systems: All systems reviewed & are unremarkable except as noted in Subjective Physical Exam Physical Exam: General Appearance:Obese, no apparent distress Head: normocephalic, Atraumatic Eyes: normal inspection, EOMI Neck: supple Respiratory/Chest: Decreased breath sounds, CTA, No accessory muscle use Cardiovascular: S1, S2, No murmur Abdomen/GI:Soft, Non tender, Bowel sounds present Extremities/Musculoskeletal:normal inspection, + LE edema (improved),+ chronic venous stasis, +Dressings over Left foot Neurologic/Psych:AAOX3, grossly no focal neurological deficits Skin: warm, dry Results & Data Results & Data Vital Signs (Past 12 Hours) Vital Signs Temp Pulse Resp BP BP Pulse Ox O2 Del Method 05/24/24 07:03 37.0 C 62 16 144/75 H 99 Room Air 05/23/24 21:23 36.8 C 67 16 152/71 H 99 Room Air Laboratory Results 05/24/24 05/24/24 05/23/24 Range/Units 07:39 06:18 20:52 WBC 6.33 (4.8-10.8) K/ul RBC 2.72 L (4.70-6.10) M/uL Hgb 7.7 L (14.0-18.0) g/dl Hct 23.6 L (42.0-52.0) % MCV 86.8 (80.0-100.0) fL MCH 28.3 (25.0-34.0) pg MCHC 32.6 (32.0-36.0) g/dL RDW Std Deviation 52.2 H (36.4-46.3) fL RDW Coeff of Brent 16.9 H (11.5-14.5) % Plt Count 246 (130-400) K/uL MPV 9.3 L (9.4-12.4) fL Absolute Nucleated RBC 0.02 (0.00-0.12) K/uL Nucleated RBC % (auto) 0.3 % Sodium 137 (136-145) mmol/L Potassium 4.6 (3.5-5.1) mmol/L Chloride 111 H (98-107) mmol/L Carbon Dioxide 20 L (21-32) mmol/L Anion Gap 6 (3-11) BUN 58 H (6-23) mg/dl Creatinine 1.79 H (0.6-1.4) mg/dl Est Cr Clr Drug Dosing 57.5 ml/min eGFR 41.02 BUN/Creatinine Ratio 32.4 H (10-20) Glucose 101 H (70-99(Fasting)) mg/dl POC Glucose 107 H 123 H (70-99) mg/dl Calcium 8.5 L (8.6-10.3) mg/dl Phosphorus 3.3 (2.5-4.9) mg/dl Magnesium 1.7 (1.7-2.4) mg/dl 05/23/24 05/23/24 Range/Units 16:27 11:24 WBC (4.8-10.8) K/ul RBC (4.70-6.10) M/uL Hgb (14.0-18.0) g/dl Hct (42.0-52.0) % MCV (80.0-100.0) fL MCH (25.0-34.0) pg MCHC (32.0-36.0) g/dL RDW Std Deviation (36.4-46.3) fL RDW Coeff of Brent (11.5-14.5) % Plt Count (130-400) K/uL MPV (9.4-12.4) fL Absolute Nucleated RBC (0.00-0.12) K/uL Nucleated RBC % (auto) % Sodium (136-145) mmol/L Potassium (3.5-5.1) mmol/L Chloride (98-107) mmol/L Carbon Dioxide (21-32) mmol/L Anion Gap (3-11) BUN (6-23) mg/dl Creatinine (0.6-1.4) mg/dl Est Cr Clr Drug Dosing ml/min eGFR BUN/Creatinine Ratio (10-20) Glucose (70-99(Fasting)) mg/dl POC Glucose 90 146 H (70-99) mg/dl Calcium (8.6-10.3) mg/dl Phosphorus (2.5-4.9) mg/dl Magnesium (1.7-2.4) mg/dl Medications Administered Current Inpatient Medications Acetaminophen (Acetaminophen 325 Mg Tab) 650 mg PO QID PRN PRN Reason: pain/fever Stop: 06/14/24 20:31 Last Admin: 05/23/24 08:53 Dose: 650 mg Allopurinol (Allopurinol 300 Mg Tab) 300 mg PO [facility] Stop: 06/22/24 08:59 Last Admin: 05/24/24 08:06 Dose: 300 mg Atorvastatin Calcium (Atorvastatin 20 Mg Tab) 20 mg PO [facility] Stop: 06/15/24 08:59 Last Admin: 05/16/24 07:44 Dose: 20 mg Carvedilol (Carvedilol 6.25 Mg Tab) 6.25 mg PO BID [facility] Stop: 06/14/24 20:59 Last Admin: 05/24/24 08:06 Dose: 6.25 mg Dextrose (Dextrose 50% 50 Ml Syringe) 25 - 50 ml IV UD PRN; Protocol PRN Reason: Hypoglycemia Protocol Stop: 06/15/24 00:28 Dorzolamide/Timolol (Dorzolamide/Timolol 22.3/6.8mg/Ml 10 Ml Btl) 1 drops OPB BID [facility] Stop: 06/14/24 20:59 Last Admin: 05/24/24 08:07 Dose: 1 drops Famotidine (Famotidine 40 Mg Tablet) [facility] [place] Stop: 06/22/24 09:44 Last Admin: 05/24/24 08:06 Dose: 40 mg Ferrous Sulfate (Ferrous Sulfate 325 Mg Tab) 325 mg PO MoWeFr@0900 [facility] Stop: 06/17/24 08:59 Last Admin: 05/22/24 08:40 Dose: 325 mg Glucagon (Glucagon For Inj 1 Mg Vial) 1 mg SQ UD PRN; Protocol PRN Reason: Hypoglycemia Protocol Stop: 06/15/24 00:28 Glucose (Glucose 40% Gel 15 Gm Tube) 15 - 30 gm PO UD PRN; Protocol PRN Reason: Hypoglycemia Protocol Stop: 06/15/24 00:28 Glucose (Glucose 10 Tab/Tube) 4 - 8 tab PO UD PRN; Protocol PRN Reason: Hypoglycemia Treatment Stop: 06/15/24 00:28 Heparin Sodium (Porcine) (Heparin Sod 5,000 Unit/0.5 Ml Vial) 5,000 units SQ Q8 [facility] Stop: 06/15/24 21:59 Last Admin: 05/20/24 13:06 Dose: 5,000 units Hydromorphone HCl (Hydromorphone Inj 0.5 Mg/0.5 Ml Syr) 0.5 mg IV Q6H PRN PRN Reason: Pain Stop: 05/29/24 20:31 Last Admin: 05/23/24 19:41 Dose: 0.5 mg Promethazine HCl (Phenergan) 12.5 mg in 50.5 mls @ 202 mls/hr IV Q6H PRN PRN Reason: Nausea And Vomiting Stop: 06/14/24 20:31 Cefazolin Sodium (Ancef 2000mg) 2,000 mg in 15 mls @ 3.75 mls/min IV Q8H [facility] Stop: 06/29/24 15:59 Last Admin: 05/24/24 08:08 Dose: 3.75 mls/min Daptomycin 600 mg/ Syringe 12 mls @ 6 mls/min IV Q24H [facility]; Protocol Stop: 06/30/24 20:59 Last Admin: 05/23/24 21:22 Dose: 6 mls/min Insulin Aspart (Insulin Aspart Per Unit Charge) 0 units SC ACHS [facility] Stop: 06/20/24 05:59 Last Admin: 05/24/24 08:16 Dose: 4 units Insulin Glargine (Lantus Per Unit Charge) 10 units SC DAILY@0730 [facility] Stop: 06/20/24 07:29 Last Admin: 05/24/24 08:16 Dose: 10 units Lactobacillus Acidophilus (Advanced Probiotic 625 Mg Capsule) 1,250 mg PO DAILY [facility] Stop: 06/17/24 08:59 Last Admin: 05/24/24 08:07 Dose: 1,250 mg Magnesium Chloride (Magnesium Chloride W/Calcium 64mg Delayed Rel Tab) 64 mg PO BID [facility] Stop: 06/15/24 08:59 Last Admin: 05/24/24 08:06 Dose: 64 mg Melatonin (Melatonin 3 Mg Tab) 6 mg PO HS PRN PRN Reason: Sleep Stop: 06/15/24 00:36 Last Admin: 05/21/24 20:44 Dose: 6 mg Miscellaneous (Carbohydrates For Hypoglycemia ) 15 - 30 gm PO UD PRN PRN Reason: Hypoglycemia Protocol Stop: 06/15/24 00:28 Netarsudil (Netarsudil Mesylate 37 Drops/2.5 Ml Btl) 1 drops OP HS [facility] Stop: 06/16/24 20:59 Last Admin: 05/23/24 21:22 Dose: 1 drops Oxycodone HCl (Oxycodone Hcl Ir 5 Mg Tab (Immediate Release)) 5 - 10 mg PO QID PRN PRN Reason: Pain Stop: 05/29/24 20:31 Last Admin: 05/23/24 13:31 Dose: 5 mg Pantoprazole Sodium (Pantoprazole 40 Mg Tab) [facility] [place] Stop: 06/22/24 09:44 Last Admin: 05/24/24 08:07 Dose: 40 mg Torsemide (Torsemide 20 Mg Tab) 20 mg PO QAM [facility] Stop: 06/22/24 08:59 Last Admin: 05/24/24 08:06 Dose: 20 mg
[2024-05-25 07:17] LABS: Hematocrit (blood only) 26.4 % (42.0-52.0); Hemoglobin 8.5 g/dl (14.0-18.0); Mean Corpuscular Hemoglobin 27.8 pg (25.0-34.0); Mean Corpuscular Hgb Conc 32.2 g/dL (32.0-36.0); Mean Corpuscular Volume 86.3 fL (80.0-100.0); Mean Platelet Volume 9.2 fL (9.4-12.4); Platelet Count 282 K/uL (130-400); RDW Coefficient of Variation 16.7 % (11.5-14.5); RDW Standard Deviation 51.8 fL (36.4-46.3); Red Blood Count 3.06 M/uL (4.70-6.10); White Blood Count 6.34 K/ul (4.8-10.8)
--- NOTE | 2024-05-25 07:56 | Hospitalist Progress Note ---
Date of Service May 25, 2024 Assessment & Plan (1) Cellulitis: Plan: Left foot cellulitis/ulcer/Abscess Left fifth metatarsal head osteomyelitis--POA --Foot CT:Diffuse edema/cellulitis. Gas the plantar soft tissues overlying the distal fifth metatarsal consistent with infection/ulceration. Limited by lack of contrast material. No definite focal phlegmon or abscess. No definite underlying osteomyelitis. --Foot MRI:Findings consistent with acute osteomyelitis of the left fifth metatarsal head. No additional sites of osteomyelitis within the left forefoot. Associated sesamoid involvement is better depicted on CT of May 15, 2024. Adjacent lateral left forefoot wound with associated cellulitis and multiple locules of soft tissue gas. 1.4 x 0.8 cm pocket of fluid and gas along the later al aspect of the left fifth metatarsal head is suggestive of a developing abscess. Extensive dorsal forefoot soft tissue edema. --Blood Cx: Negative to date --Wound culture growing group B strep, staph species (MSSA) --S/P at bedside debridement Podiatry consulted - Pt is s/p Left 5th Metatarsal Ray Amputation(Left), (05/21/2024) - Jarek Cardenas, NAVA Pt tolerated procedure well Continue wound care, may need wound vac Pathology of surg. specimen - positive for acute osteomyelitis Cultx of surg. specimen - positive for Corynebacterium , final results pending ID consulted : Discussed on 05/18/2024, 05/19/2024: Advised to increase cefazolin to 2 g every 8 hours Needs to discuss with ID after amputation for final recommendations Hypomagnesemia Replete electrolytes as needed Monitor ZAHRAA on CKD III Renal US: No hydronephrosis. Echogenic foci within the renal sinuses which could reflect nonobstructing calculi or vascular calcifications. Several renal cysts. Losartan, torsemide held - now torsemide resumed Received IV fluids Monitor renal function Avoid nephrotoxic agents as able Appreciate nephrology input Bladder scan as needed to monitor for any retention Renally adjust medications as needed Cr 1.9 Nephrology consulted, recommendations reviewed Chronic diastolic heart failure Resume home diuretics as able, resume torsemide Monitor volume status Anemia of chronic kidney disease Received Procrit Also, pt has hx of duodenal ulcer and plan for repeat EGD, started PPI, will need to follow up as outpt Hematology appointment as outpt also arranged Monitor CBC DM II Last HbA1c 5.6 in December 2023 Continue insulin while hospitalized Monitor BGs Morbid obesity BMI 40 Other chronic conditions: Hypertension Hyperlipidemia PVD SPENCER on CPAP H/O DVT S/P 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 h/o chronic lymphedema/LE venous stasis as per records chronic LE wounds Gout: Allopurinol Continue home medications as able DVT Px: Heparin SQ CODE STATUS Full code Admission and Anticipated Discharge Date Admission Date: May 15, 2024 Subjective Patient seen in follow up of diabetic foot ulcer/infection Podiatry consulted, s/p p Left 5th Metatarsal Ray Amputation - Jarek Cardenas DPM Pt is sitting up in chair in NAD wound vac applied Overall feeling well. Denies any fever, chills, chest pain, shortness of breath, abd. pain, nausea Pt's present at the bedside and updated. Review of Systems Review of Systems: All systems reviewed & are unremarkable except as noted in Subjective Physical Exam Physical Exam: General Appearance:Obese, no apparent distress Head: normocephalic, Atraumatic Eyes: normal inspection, EOMI Neck: supple Respiratory/Chest: Decreased breath sounds, CTA, No accessory muscle use Cardiovascular: S1, S2, No murmur Abdomen/GI:Soft, Non tender, Bowel sounds present Extremities/Musculoskeletal:normal inspection, + LE edema (improved),+ chronic venous stasis, +Dressings over Left foot + wound vac Neurologic/Psych:AAOX3, grossly no focal neurological deficits Skin: warm, dry Results & Data Results & Data Vital Signs (Past 12 Hours) Vital Signs Temp Pulse Resp BP BP Pulse Ox O2 Del Method 05/25/24 07:15 36.7 C 68 16 145/68 H 98 Room Air 05/24/24 21:20 Room Air 05/24/24 20:34 36.8 C 64 16 153/79 H 100 Room Air Laboratory Results 05/25/24 05/25/24 05/25/24 Range/Units 11:31 07:54 06:59 WBC 6.34 (4.8-10.8) K/ul RBC 3.06 L (4.70-6.10) M/uL Hgb 8.5 L (14.0-18.0) g/dl Hct 26.4 L (42.0-52.0) % MCV 86.3 (80.0-100.0) fL MCH 27.8 (25.0-34.0) pg MCHC 32.2 (32.0-36.0) g/dL RDW Std Deviation 51.8 H (36.4-46.3) fL RDW Coeff of Brent 16.7 H (11.5-14.5) % Plt Count 282 (130-400) K/uL MPV 9.2 L (9.4-12.4) fL Sodium 136 (136-145) mmol/L Potassium 5.0 (3.5-5.1) mmol/L Chloride 109 H (98-107) mmol/L Carbon Dioxide 17 L (21-32) mmol/L Anion Gap 10 (3-11) BUN 58 H (6-23) mg/dl Creatinine 1.95 H (0.6-1.4) mg/dl Est Cr Clr Drug Dosing 52.3 ml/min eGFR 37.01 BUN/Creatinine Ratio 29.7 H (10-20) Glucose 109 H (70-99(Fasting)) mg/dl POC Glucose 131 H 120 H (70-99) mg/dl Calcium 8.8 (8.6-10.3) mg/dl Phosphorus 3.6 (2.5-4.9) mg/dl Magnesium 1.7 (1.7-2.4) mg/dl 05/24/24 05/24/24 Range/Units 20:31 16:31 WBC (4.8-10.8) K/ul RBC (4.70-6.10) M/uL Hgb (14.0-18.0) g/dl Hct (42.0-52.0) % MCV (80.0-100.0) fL MCH (25.0-34.0) pg MCHC (32.0-36.0) g/dL RDW Std Deviation (36.4-46.3) fL RDW Coeff of Brent (11.5-14.5) % Plt Count (130-400) K/uL MPV (9.4-12.4) fL Sodium (136-145) mmol/L Potassium (3.5-5.1) mmol/L Chloride (98-107) mmol/L Carbon Dioxide (21-32) mmol/L Anion Gap (3-11) BUN (6-23) mg/dl Creatinine (0.6-1.4) mg/dl Est Cr Clr Drug Dosing ml/min eGFR BUN/Creatinine Ratio (10-20) Glucose (70-99(Fasting)) mg/dl POC Glucose 137 H 124 H (70-99) mg/dl Calcium (8.6-10.3) mg/dl Phosphorus (2.5-4.9) mg/dl Magnesium (1.7-2.4) mg/dl Medications Administered Current Inpatient Medications Acetaminophen (Acetaminophen 325 Mg Tab) 650 mg PO QID PRN PRN Reason: pain/fever Stop: 06/14/24 20:31 Last Admin: 05/24/24 10:56 Dose: 650 mg Allopurinol (Allopurinol 300 Mg Tab) [address] [facility] Stop: 06/22/24 08:59 Last Admin: 05/24/24 08:06 Dose: 300 mg Atorvastatin Calcium (Atorvastatin 20 Mg Tab) [address] [facility] Stop: 06/15/24 08:59 Last Admin: 05/16/24 07:44 Dose: 20 mg Carvedilol (Carvedilol 6.25 Mg Tab) 6.25 mg PO BID [facility] Stop: 06/14/24 20:59 Last Admin: 05/24/24 20:44 Dose: 6.25 mg Dextrose (Dextrose 50% 50 Ml Syringe) 25 - 50 ml IV UD PRN; Protocol PRN Reason: Hypoglycemia Protocol Stop: 06/15/24 00:28 Dorzolamide/Timolol (Dorzolamide/Timolol 22.3/6.8mg/Ml 10 Ml Btl) 1 drops OPB BID [facility] Stop: 06/14/24 20:59 Last Admin: 05/24/24 20:45 Dose: 1 drops Famotidine (Famotidine 40 Mg Tablet) [facility] [place] Stop: 06/22/24 09:44 Last Admin: 05/24/24 08:06 Dose: 40 mg Ferrous Sulfate (Ferrous Sulfate 325 Mg Tab) 325 mg PO MoWeFr@0900 [facility] Stop: 06/17/24 08:59 Last Admin: 05/22/24 08:40 Dose: 325 mg Glucagon (Glucagon For Inj 1 Mg Vial) 1 mg SQ UD PRN; Protocol PRN Reason: Hypoglycemia Protocol Stop: 06/15/24 00:28 Glucose (Glucose 40% Gel 15 Gm Tube) 15 - 30 gm PO UD PRN; Protocol PRN Reason: Hypoglycemia Protocol Stop: 06/15/24 00:28 Glucose (Glucose 10 Tab/Tube) 4 - 8 tab PO UD PRN; Protocol PRN Reason: Hypoglycemia Treatment Stop: 06/15/24 00:28 Heparin Sodium (Porcine) (Heparin Sod 5,000 Unit/0.5 Ml Vial) 5,000 units SQ Q8 [facility] Stop: 06/15/24 21:59 Last Admin: 05/20/24 13:06 Dose: 5,000 units Hydromorphone HCl (Hydromorphone Inj 0.5 Mg/0.5 Ml Syr) 0.5 mg IV Q6H PRN PRN Reason: Pain Stop: 05/29/24 20:31 Last Admin: 05/24/24 20:46 Dose: 0.5 mg Promethazine HCl (Phenergan) 12.5 mg in 50.5 mls @ 202 mls/hr IV Q6H PRN PRN Reason: Nausea And Vomiting Stop: 06/14/24 20:31 Cefazolin Sodium (Ancef 2000mg) 2,000 mg in 15 mls @ 3.75 mls/min IV Q8H [facility] Stop: 06/29/24 15:59 Last Admin: 05/25/24 00:14 Dose: 3.75 mls/min Daptomycin 600 mg/ Syringe 12 mls @ 6 mls/min IV Q24H [facility]; Protocol Stop: 06/30/24 20:59 Last Admin: 05/24/24 20:44 Dose: 6 mls/min Insulin Aspart (Insulin Aspart Per Unit Charge) 0 units SC ACHS [facility] Stop: 06/20/24 05:59 Last Admin: 05/24/24 20:45 Dose: Not Given Insulin Glargine (Lantus Per Unit Charge) 10 units SC DAILY@0730 [facility] Stop: 06/20/24 07:29 Last Admin: 05/24/24 08:16 Dose: 10 units Lactobacillus Acidophilus (Advanced Probiotic 625 Mg Capsule) 1,250 mg PO DAILY [facility] Stop: 06/17/24 08:59 Last Admin: 05/24/24 08:07 Dose: 1,250 mg Magnesium Chloride (Magnesium Chloride W/Calcium 64mg Delayed Rel Tab) 64 mg PO BID [facility] Stop: 06/15/24 08:59 Last Admin: 05/24/24 20:44 Dose: 64 mg Melatonin (Melatonin 3 Mg Tab) 6 mg PO HS PRN PRN Reason: Sleep Stop: 06/15/24 00:36 Last Admin: 05/21/24 20:44 Dose: 6 mg Miscellaneous (Carbohydrates For Hypoglycemia ) 15 - 30 gm PO UD PRN PRN Reason: Hypoglycemia Protocol Stop: 06/15/24 00:28 Netarsudil (Netarsudil Mesylate 37 Drops/2.5 Ml Btl) 1 drops OP HS [facility] Stop: 06/16/24 20:59 Last Admin: 05/24/24 20:44 Dose: 1 drops Oxycodone HCl (Oxycodone Hcl Ir 5 Mg Tab (Immediate Release)) 5 - 10 mg PO QID PRN PRN Reason: Pain Stop: 05/29/24 20:31 Last Admin: 05/25/24 00:19 Dose: 5 mg Pantoprazole Sodium (Pantoprazole 40 Mg Tab) 40 mg PO QAM [facility] Stop: 06/22/24 09:44 Last Admin: 05/24/24 08:07 Dose: 40 mg Torsemide (Torsemide 20 Mg Tab) 20 mg PO QAM [facility] Stop: 06/22/24 08:59 Last Admin: 05/24/24 08:06 Dose: 20 mg
[2024-05-25 08:13] LABS: BUN Creatinine Ratio 29.7 (10-20); Calcium 8.8 mg/dl (8.6-10.3); Creatinine Clr Calc Pharmacy 52.3 ml/min; Magnesium 1.7 mg/dl (1.7-2.4); Phosphorus 3.6 mg/dl (2.5-4.9)
[2024-05-26 08:38] LABS: Hematocrit (blood only) 24.3 % (42.0-52.0); Mean Corpuscular Hgb Conc 32.9 g/dL (32.0-36.0); Mean Platelet Volume 9.2 fL (9.4-12.4); Platelet Count 282 K/uL (130-400); RDW Standard Deviation 52.1 fL (36.4-46.3); Red Blood Count 2.86 M/uL (4.70-6.10); White Blood Count 5.34 K/ul (4.8-10.8)
[2024-05-26 09:05] LABS: BUN Creatinine Ratio 31.6 (10-20); Calcium 8.8 mg/dl (8.6-10.3); Magnesium 1.7 mg/dl (1.7-2.4); Phosphorus 3.9 mg/dl (2.5-4.9); Potassium 4.8 mmol/L (3.5-5.1)
--- NOTE | 2024-05-26 15:48 | Hospitalist Progress Note ---
Date of Service May 26, 2024 Assessment & Plan (1) Cellulitis: Plan: Left foot cellulitis/ulcer/Abscess Left fifth metatarsal head osteomyelitis--POA --Foot CT:Diffuse edema/cellulitis. Gas the plantar soft tissues overlying the distal fifth metatarsal consistent with infection/ulceration. Limited by lack of contrast material. No definite focal phlegmon or abscess. No definite underlying osteomyelitis. --Foot MRI:Findings consistent with acute osteomyelitis of the left fifth metatarsal head. No additional sites of osteomyelitis within the left forefoot. Associated sesamoid involvement is better depicted on CT of May 15, 2024. Adjacent lateral left forefoot wound with associated cellulitis and multiple locules of soft tissue gas. 1.4 x 0.8 cm pocket of fluid and gas along the later al aspect of the left fifth metatarsal head is suggestive of a developing abscess. Extensive dorsal forefoot soft tissue edema. --Blood Cx: Negative to date --Wound culture growing group B strep, staph species (MSSA) --S/P at bedside debridement Podiatry consulted - Pt is s/p Left 5th Metatarsal Ray Amputation(Left), (05/21/2024) - Jarek Cardenas, NAVA Pt tolerated procedure well Continue wound care, may need wound vac Pathology of surg. specimen - positive for acute osteomyelitis Cultx of surg. specimen - positive for Corynebacterium sp. ID consulted : Discussed on 05/18/2024, 05/19/2024: Advised to increase cefazolin to 2 g every 8 hours Needs to discuss with ID after amputation for final recommendations ID contacted - awaiting final recs Hypomagnesemia Replete electrolytes as needed Monitor ZAHRAA on CKD III Renal US: No hydronephrosis. Echogenic foci within the renal sinuses which could reflect nonobstructing calculi or vascular calcifications. Several renal cysts. Losartan, torsemide held -> torsemide resumed Received IV fluids Monitor renal function Avoid nephrotoxic agents as able Appreciate nephrology input Bladder scan as needed to monitor for any retention Renally adjust medications as needed Cr 1.9 Nephrology consulted, recommendations reviewed Chronic diastolic heart failure Resume home diuretics as able, resume torsemide Monitor volume status Anemia of chronic kidney disease Received Procrit Also, pt has hx of duodenal ulcer and plan for repeat EGD, started PPI, will need to follow up as outpt Hematology appointment as outpt also arranged Monitor CBC DM II Last HbA1c 5.6 in December 2023 Continue insulin while hospitalized Monitor BGs Morbid obesity BMI 40 Other chronic conditions: Hypertension Hyperlipidemia PVD SPENCER on CPAP H/O DVT S/P 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 h/o chronic lymphedema/LE venous stasis as per records chronic LE wounds Gout: Allopurinol Continue home medications as able DVT Px: Heparin SQ CODE STATUS Full code Admission and Anticipated Discharge Date Admission Date: May 15, 2024 Subjective Patient seen in follow up of diabetic foot ulcer/infection Podiatry consulted, s/p p Left 5th Metatarsal Ray Amputation - Jarek Cardenas DPM Pt is sitting up in bed in NAD wound vac applied Overall feeling well. Denies any fever, chills, chest pain, shortness of breath, abd. pain, nausea ID consulted and contacted. Review of Systems Review of Systems: All systems reviewed & are unremarkable except as noted in Subjective Physical Exam Physical Exam: General Appearance:Obese, no apparent distress Head: normocephalic, Atraumatic Eyes: normal inspection, EOMI Neck: supple Respiratory/Chest: Decreased breath sounds, CTA, No accessory muscle use Cardiovascular: S1, S2, No murmur Abdomen/GI:Soft, Non tender, Bowel sounds present Extremities/Musculoskeletal:normal inspection, + LE edema (improved),+ chronic venous stasis, + Dressings over Left foot, + wound vac Neurologic/Psych: AAOX3, grossly no focal neurological deficits Skin: warm, dry Results & Data Results & Data Vital Signs (Past 12 Hours) Vital Signs Temp Pulse Resp BP Pulse Ox O2 Del Method 05/26/24 11:51 36.7 C 62 18 149/70 H 98 Room Air 05/26/24 08:11 36.7 C 67 14 153/70 H 98 Room Air Laboratory Results 05/26/24 05/26/24 05/26/24 Range/Units 11:29 07:51 07:46 WBC 5.34 (4.8-10.8) K/ul RBC 2.86 L (4.70-6.10) M/uL Hgb 8.0 L (14.0-18.0) g/dl Hct 24.3 L (42.0-52.0) % MCV 85.0 (80.0-100.0) fL MCH 28.0 (25.0-34.0) pg MCHC 32.9 (32.0-36.0) g/dL RDW Std Deviation 52.1 H (36.4-46.3) fL RDW Coeff of Brent 17.0 H (11.5-14.5) % Plt Count 282 (130-400) K/uL MPV 9.2 L (9.4-12.4) fL Sodium 137 (136-145) mmol/L Potassium 4.8 (3.5-5.1) mmol/L Chloride 110 H (98-107) mmol/L Carbon Dioxide 20 L (21-32) mmol/L Anion Gap 7 (3-11) BUN 59 H (6-23) mg/dl Creatinine 1.87 H (0.6-1.4) mg/dl Est Cr Clr Drug Dosing 54.0 ml/min eGFR 38.92 BUN/Creatinine Ratio 31.6 H (10-20) Glucose 103 H (70-99(Fasting)) mg/dl POC Glucose 142 H 111 H (70-99) mg/dl Calcium 8.8 (8.6-10.3) mg/dl Phosphorus 3.9 (2.5-4.9) mg/dl Magnesium 1.7 (1.7-2.4) mg/dl 05/25/24 05/25/24 Range/Units 20:25 16:29 WBC (4.8-10.8) K/ul RBC (4.70-6.10) M/uL Hgb (14.0-18.0) g/dl Hct (42.0-52.0) % MCV (80.0-100.0) fL MCH (25.0-34.0) pg MCHC (32.0-36.0) g/dL RDW Std Deviation (36.4-46.3) fL RDW Coeff of Brent (11.5-14.5) % Plt Count (130-400) K/uL MPV (9.4-12.4) fL Sodium (136-145) mmol/L Potassium (3.5-5.1) mmol/L Chloride (98-107) mmol/L Carbon Dioxide (21-32) mmol/L Anion Gap (3-11) BUN (6-23) mg/dl Creatinine (0.6-1.4) mg/dl Est Cr Clr Drug Dosing ml/min eGFR BUN/Creatinine Ratio (10-20) Glucose (70-99(Fasting)) mg/dl POC Glucose 134 H 132 H (70-99) mg/dl Calcium (8.6-10.3) mg/dl Phosphorus (2.5-4.9) mg/dl Magnesium (1.7-2.4) mg/dl Medications Administered Current Inpatient Medications Acetaminophen (Acetaminophen 325 Mg Tab) 650 mg PO QID PRN PRN Reason: pain/fever Stop: 06/14/24 20:31 Last Admin: 05/26/24 07:39 Dose: 650 mg Allopurinol (Allopurinol 300 Mg Tab) [facility] Stop: 06/22/24 08:59 Last Admin: 05/26/24 09:22 Dose: 300 mg Atorvastatin Calcium (Atorvastatin 20 Mg Tab) [facility] Stop: 06/15/24 08:59 Last Admin: 05/16/24 07:44 Dose: 20 mg Carvedilol (Carvedilol 6.25 Mg Tab) 6.25 mg PO BID [facility] Stop: 06/14/24 20:59 Last Admin: 05/26/24 09:22 Dose: 6.25 mg Dextrose (Dextrose 50% 50 Ml Syringe) 25 - 50 ml IV UD PRN; Protocol PRN Reason: Hypoglycemia Protocol Stop: 06/15/24 00:28 Dorzolamide/Timolol (Dorzolamide/Timolol 22.3/6.8mg/Ml 10 Ml Btl) 1 drops OPB BID [facility] Stop: 06/14/24 20:59 Last Admin: 05/26/24 09:18 Dose: 1 drops Famotidine (Famotidine 40 Mg Tablet) 40 mg PO QAM [facility] Stop: 06/22/24 09:44 Last Admin: 05/26/24 09:22 Dose: 40 mg Ferrous Sulfate (Ferrous Sulfate 325 Mg Tab) 325 mg PO MoWeFr@0900 [facility] Stop: 06/17/24 08:59 Last Admin: 05/25/24 08:33 Dose: 325 mg Glucagon (Glucagon For Inj 1 Mg Vial) 1 mg SQ UD PRN; Protocol PRN Reason: Hypoglycemia Protocol Stop: 06/15/24 00:28 Glucose (Glucose 40% Gel 15 Gm Tube) 15 - 30 gm PO UD PRN; Protocol PRN Reason: Hypoglycemia Protocol Stop: 06/15/24 00:28 Glucose (Glucose 10 Tab/Tube) 4 - 8 tab PO UD PRN; Protocol PRN Reason: Hypoglycemia Treatment Stop: 06/15/24 00:28 Heparin Sodium (Porcine) (Heparin Sod 5,000 Unit/0.5 Ml Vial) 5,000 units SQ Q8 [facility] Stop: 06/15/24 21:59 Last Admin: 05/20/24 13:06 Dose: 5,000 units Hydromorphone HCl (Hydromorphone Inj 0.5 Mg/0.5 Ml Syr) 0.5 mg IV Q6H PRN PRN Reason: Pain Stop: 05/29/24 20:31 Last Admin: 05/25/24 22:39 Dose: 0.5 mg Promethazine HCl (Phenergan) 12.5 mg in 50.5 mls @ 202 mls/hr IV Q6H PRN PRN Reason: Nausea And Vomiting Stop: 06/14/24 20:31 Cefazolin Sodium (Ancef 2000mg) 2,000 mg in 15 mls @ 3.75 mls/min IV Q8H [facility] Stop: 06/29/24 15:59 Last Admin: 05/26/24 09:18 Dose: 3.75 mls/min Daptomycin 600 mg/ Syringe 12 mls @ 6 mls/min IV Q24H [facility]; Protocol Stop: 06/30/24 20:59 Last Admin: 05/25/24 20:54 Dose: 6 mls/min Insulin Aspart (Insulin Aspart Per Unit Charge) 0 units SC ACHS [facility] Stop: 06/20/24 05:59 Last Admin: 05/26/24 13:01 Dose: 2 units Insulin Glargine (Lantus Per Unit Charge) 10 units SC DAILY@0730 [facility] Stop: 06/20/24 07:29 Last Admin: 05/26/24 09:26 Dose: 10 units Lactobacillus Acidophilus (Advanced Probiotic 625 Mg Capsule) 1,250 mg PO DAILY [facility] Stop: 06/17/24 08:59 Last Admin: 05/26/24 09:22 Dose: 1,250 mg Magnesium Chloride (Magnesium Chloride W/Calcium 64mg Delayed Rel Tab) 64 mg PO BID [facility] Stop: 06/15/24 08:59 Last Admin: 05/26/24 09:22 Dose: 64 mg Melatonin (Melatonin 3 Mg Tab) 6 mg PO HS PRN PRN Reason: Sleep Stop: 06/15/24 00:36 Last Admin: 05/21/24 20:44 Dose: 6 mg Miscellaneous (Carbohydrates For Hypoglycemia ) 15 - 30 gm PO UD PRN PRN Reason: Hypoglycemia Protocol Stop: 06/15/24 00:28 Netarsudil (Netarsudil Mesylate 37 Drops/2.5 Ml Btl) 1 drops OP HS [facility] Stop: 06/16/24 20:59 Last Admin: 05/25/24 20:53 Dose: 1 drops Oxycodone HCl (Oxycodone Hcl Ir 5 Mg Tab (Immediate Release)) 5 - 10 mg PO QID PRN PRN Reason: Pain Stop: 05/29/24 20:31 Last Admin: 05/25/24 00:19 Dose: 5 mg Pantoprazole Sodium (Pantoprazole 40 Mg Tab) 40 mg PO [facility] Stop: 06/22/24 09:44 Last Admin: 05/26/24 09:22 Dose: 40 mg Torsemide (Torsemide 20 Mg Tab) [facility] Stop: 06/22/24 08:59 Last Admin: 05/26/24 09:22 Dose: 20 mg
[2024-05-26] MEDS: VANCOMYCIN HCL 2,750 MG in SODIUM CHLORIDE 0.9% 500 ML IV ONE (17:59)
[2024-05-27 07:35] LABS: Hematocrit (blood only) 25.6 % (42.0-52.0); Hemoglobin 8.2 g/dl (14.0-18.0); Mean Corpuscular Hemoglobin 27.9 pg (25.0-34.0); Mean Corpuscular Volume 87.1 fL (80.0-100.0); Mean Platelet Volume 9.5 fL (9.4-12.4); Platelet Count 293 K/uL (130-400); RDW Coefficient of Variation 16.9 % (11.5-14.5); RDW Standard Deviation 52.6 fL (36.4-46.3); Red Blood Count 2.94 M/uL (4.70-6.10); White Blood Count 5.92 K/ul (4.8-10.8)
[2024-05-27 07:52] LABS: BUN Creatinine Ratio 29.4 (10-20); Calcium 8.7 mg/dl (8.6-10.3); Creatinine Clr Calc Pharmacy 46.8 ml/min; Magnesium 1.6 mg/dl (1.7-2.4); Potassium 4.5 mmol/L (3.5-5.1)
[2024-05-27] MEDS: MAGNESIUM SULFATE / D5W 1 GM/100 ML BAG IV ONE (10:04)
--- NOTE | 2024-05-27 16:14 | Hospitalist Progress Note ---
Date of Service May 27, 2024 Assessment & Plan (1) Cellulitis: Plan: Left foot cellulitis/ulcer/Abscess Left fifth metatarsal head osteomyelitis--POA --Foot CT:Diffuse edema/cellulitis. Gas the plantar soft tissues overlying the distal fifth metatarsal consistent with infection/ulceration. Limited by lack of contrast material. No definite focal phlegmon or abscess. No definite underlying osteomyelitis. --Foot MRI:Findings consistent with acute osteomyelitis of the left fifth metatarsal head. No additional sites of osteomyelitis within the left forefoot. Associated sesamoid involvement is better depicted on CT of May 15, 2024. Adjacent lateral left forefoot wound with associated cellulitis and multiple locules of soft tissue gas. 1.4 x 0.8 cm pocket of fluid and gas along the later al aspect of the left fifth metatarsal head is suggestive of a developing abscess. Extensive dorsal forefoot soft tissue edema. --Blood Cx: Negative to date --Wound culture growing group B strep, staph species (MSSA) --S/P at bedside debridement Podiatry consulted - Pt is s/p Left 5th Metatarsal Ray Amputation(Left), (05/21/2024) - Jarek Cardenas, NAVA Pt tolerated procedure well Continue wound care, may need wound vac Pathology of surg. specimen - positive for acute osteomyelitis Cultx of surg. specimen - positive for Corynebacterium sp. ID consulted : Discussed on 05/18/2024, 05/19/2024: Advised to increase cefazolin to 2 g every 8 hours Needs to discuss with ID after amputation for final recommendations ID contacted - abx switched to vancomycin. PICC line consent obtained. Hypomagnesemia Replete electrolytes as needed Monitor ZAHRAA on CKD III Renal US: No hydronephrosis. Echogenic foci within the renal sinuses which could reflect nonobstructing calculi or vascular calcifications. Several renal c ysts. Losartan, torsemide held -> torsemide resumed Received IV fluids Monitor renal function Avoid nephrotoxic agents as able Appreciate nephrology input Bladder scan as needed to monitor for any retention Renally adjust medications as needed Cr 1.9 Nephrology consulted, recommendations reviewed Chronic diastolic heart failure Resume home diuretics as able, resume torsemide Monitor volume status Anemia of chronic kidney disease Received Procrit Also, pt has hx of duodenal ulcer and plan for repeat EGD, started PPI, will need to follow up as outpt Hematology appointment as outpt also arranged Monitor CBC DM II Last HbA1c 5.6 in December 2023 Continue insulin while hospitalized Monitor BGs Morbid obesity BMI 40 Other chronic conditions: Hypertension Hyperlipidemia PVD SPENCER on CPAP H/O DVT S/P 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 h/o chronic lymphedema/LE venous stasis as per records chronic LE wounds Gout: Allopurinol Continue home medications as able DVT Px: Heparin SQ CODE STATUS Full code Admission and Anticipated Discharge Date Admission Date: May 15, 2024 Subjective Patient seen in follow up of diabetic foot ulcer/infection Podiatry consulted, s/p p Left 5th Metatarsal Ray Amputation - Jarek Cardenas, DPMaria Elena Pt is sitting up in bed in NAD wound vac applied Overall feeling well. Denies any fever, chills, chest pain, shortness of breath, abd. pain, nausea ID consulted and contacted. Pt's abx switched to vancomycin. PICC consent obtained. Review of Systems Review of Systems: All systems reviewed & are unremarkable except as noted in Subjective Physical Exam Physical Exam: General Appearance:Obese, no apparent distress Head: normocephalic, Atraumatic Eyes: normal inspection, EOMI Neck: supple Respiratory/Chest: Decreased breath sounds, CTA, No accessory muscle use Cardiovascular: S1, S2, No murmur Abdomen/GI:Soft, Non tender, Bowel sounds present Extremities/Musculoskeletal:normal inspection, + LE edema (improved),+ chronic venous stasis, + Dressings over Left foot, + wound vac Neurologic/Psych: AAOX3, grossly no focal neurological deficits Skin: warm, dry Results & Data Results & Data Vital Signs (Past 12 Hours) Vital Signs Temp Pulse Resp BP BP Pulse Ox O2 Del Method 05/27/24 15:07 36.3 C L 66 18 159/64 H 100 Room Air 05/27/24 07:39 Room Air 05/27/24 07:28 36.7 C 68 18 135/73 98 Room Air Laboratory Results 05/27/24 05/27/24 05/27/24 Range/Units 11:40 07:33 06:01 WBC 5.92 (4.8-10.8) K/ul RBC 2.94 L (4.70-6.10) M/uL Hgb 8.2 L (14.0-18.0) g/dl Hct 25.6 L (42.0-52.0) % MCV 87.1 (80.0-100.0) fL MCH 27.9 (25.0-34.0) pg MCHC 32.0 (32.0-36.0) g/dL RDW Std Deviation 52.6 H (36.4-46.3) fL RDW Coeff of Brent 16.9 H (11.5-14.5) % Plt Count 293 (130-400) K/uL MPV 9.5 (9.4-12.4) fL Sodium 139 (136-145) mmol/L Potassium 4.5 (3.5-5.1) mmol/L Chloride 108 H (98-107) mmol/L Carbon Dioxide 21 (21-32) mmol/L Anion Gap 10 (3-11) BUN 63 H (6-23) mg/dl Creatinine 2.14 H (0.6-1.4) mg/dl Est Cr Clr Drug Dosing 46.8 ml/min eGFR 33.11 BUN/Creatinine Ratio 29.4 H (10-20) Glucose 103 H (70-99(Fasting)) mg/dl POC Glucose 171 H 120 H (70-99) mg/dl Calcium 8.7 (8.6-10.3) mg/dl Magnesium 1.6 L (1.7-2.4) mg/dl 05/26/24 05/26/24 Range/Units 20:38 16:34 WBC (4.8-10.8) K/ul RBC (4.70-6.10) M/uL Hgb (14.0-18.0) g/dl Hct (42.0-52.0) % MCV (80.0-100.0) fL MCH (25.0-34.0) pg MCHC (32.0-36.0) g/dL RDW Std Deviation (36.4-46.3) fL RDW Coeff of Brent (11.5-14.5) % Plt Count (130-400) K/uL MPV (9.4-12.4) fL Sodium (136-145) mmol/L Potassium (3.5-5.1) mmol/L Chloride (98-107) mmol/L Carbon Dioxide (21-32) mmol/L Anion Gap (3-11) BUN (6-23) mg/dl Creatinine (0.6-1.4) mg/dl Est Cr Clr Drug Dosing ml/min eGFR BUN/Creatinine Ratio (10-20) Glucose (70-99(Fasting)) mg/dl POC Glucose 117 H 118 H (70-99) mg/dl Calcium (8.6-10.3) mg/dl Magnesium (1.7-2.4) mg/dl Medications Administered Current Inpatient Medications Acetaminophen (Acetaminophen 325 Mg Tab) 650 mg PO QID PRN PRN Reason: pain/fever Stop: 06/14/24 20:31 Last Admin: 05/27/24 05:35 Dose: 650 mg Allopurinol ([facility]opurinol 300 Mg Tab) [facility] Stop: 06/22/24 08:59 Last Admin: 05/27/24 09:51 Dose: 300 mg Atorvastatin Calcium (Atorvastatin 20 Mg Tab) [facility] Stop: 06/15/24 08:59 Last Admin: 05/16/24 07:44 Dose: 20 mg Carvedilol (Carvedilol 6.25 Mg Tab) 6.25 mg PO BID [facility] Stop: 06/14/24 20:59 Last Admin: 05/27/24 09:52 Dose: 6.25 mg Dextrose (Dextrose 50% 50 Ml Syringe) 25 - 50 ml IV UD PRN; Protocol PRN Reason: Hypoglycemia Protocol Stop: 06/15/24 00:28 Dorzolamide/Timolol (Dorzolamide/Timolol 22.3/6.8mg/Ml 10 Ml Btl) 1 drops OPB BID [facility] Stop: 06/14/24 20:59 Last Admin: 05/27/24 09:53 Dose: 1 drops Famotidine (Famotidine 40 Mg Tablet) [facility] Stop: 06/22/24 09:44 Last Admin: 05/27/24 09:51 Dose: 40 mg Ferrous Sulfate (Ferrous Sulfate 325 Mg Tab) 325 mg PO MoWeFr@0900 [facility] Stop: 06/17/24 08:59 Last Admin: 05/27/24 09:50 Dose: 325 mg Glucagon (Glucagon For Inj 1 Mg Vial) 1 mg SQ UD PRN; Protocol PRN Reason: Hypoglycemia Protocol Stop: 06/15/24 00:28 Glucose (Glucose 40% Gel 15 Gm Tube) 15 - 30 gm PO UD PRN; Protocol PRN Reason: Hypoglycemia Protocol Stop: 06/15/24 00:28 Glucose (Glucose 10 Tab/Tube) 4 - 8 tab PO UD PRN; Protocol PRN Reason: Hypoglycemia Treatment Stop: 06/15/24 00:28 Heparin Sodium (Porcine) (Heparin Sod 5,000 Unit/0.5 Ml Vial) 5,000 units SQ Q8 [facility] Stop: 06/15/24 21:59 Last Admin: 05/20/24 13:06 Dose: 5,000 units Hydromorphone HCl (Hydromorphone Inj 0.5 Mg/0.5 Ml Syr) 0.5 mg IV Q6H PRN PRN Reason: Pain Stop: 05/29/24 20:31 Last Admin: 05/26/24 23:28 Dose: 0.5 mg Promethazine HCl (Phenergan) 12.5 mg in 50.5 mls @ 202 mls/hr IV Q6H PRN PRN Reason: Nausea And Vomiting Stop: 06/14/24 20:31 Vancomycin HCl 1,500 mg/ (Sodium Chloride) 530 mls @ 200 mls/hr IV Q24H [facility] Stop: 07/08/24 21:59 Insulin Aspart (Insulin Aspart Per Unit Charge) 0 units SC ACHS [facility] Stop: 06/20/24 05:59 Last Admin: 05/27/24 12:28 Dose: 5 units Insulin Glargine (Lantus Per Unit Charge) 10 units SC DAILY@0730 [facility] Stop: 06/20/24 07:29 Last Admin: 05/27/24 10:03 Dose: 10 units Lactobacillus Acidophilus (Advanced Probiotic 625 Mg Capsule) 1,250 mg PO DAILY [facility] Stop: 06/17/24 08:59 Last Admin: 05/27/24 09:51 Dose: 1,250 mg Magnesium Chloride (Magnesium Chloride W/Calcium 64mg Delayed Rel Tab) 64 mg PO BID [facility] Stop: 06/15/24 08:59 Last Admin: 05/27/24 09:52 Dose: 64 mg Melatonin (Melatonin 3 Mg Tab) 6 mg PO HS PRN PRN Reason: Sleep Stop: 06/15/24 00:36 Last Admin: 05/21/24 20:44 Dose: 6 mg Miscellaneous (Carbohydrates For Hypoglycemia ) 15 - 30 gm PO UD PRN PRN Reason: Hypoglycemia Protocol Stop: 06/15/24 00:28 Netarsudil (Netarsudil Mesylate 37 Drops/2.5 Ml Btl) 1 drops OP HS [facility] Stop: 06/16/24 20:59 Last Admin: 05/26/24 23:25 Dose: 1 drops Oxycodone HCl (Oxycodone Hcl Ir 5 Mg Tab (Immediate Release)) 5 - 10 mg PO QID PRN PRN Reason: Pain Stop: 05/29/24 20:31 Last Admin: 05/26/24 18:05 Dose: 5 mg Pantoprazole Sodium (Pantoprazole 40 Mg Tab) 40 mg PO [facility] Stop: 06/22/24 09:44 Last Admin: 05/27/24 09:50 Dose: 40 mg Torsemide (Torsemide 20 Mg Tab) 20 mg PO [facility] Stop: 06/22/24 08:59 Last Admin: 05/27/24 09:51 Dose: 20 mg
[2024-05-27] MEDS: VANCOMYCIN HCL 1,500 MG in SODIUM CHLORIDE 0.9% 500 ML IV SCH (23:16)
[2024-05-28 07:50] VITALS: RESP 16
--- NOTE | 2024-05-28 11:17 | Podiatry Progress Note ---
Date of Service May 28, 2024 Assessment & Plan (1) Diabetic foot ulcer: (2) Chronic ulcer of lower extremity: (3) Diabetes mellitus, type II: (4) Cellulitis of left foot: Plan - Pt examined and evaluated. - Continue wound vac, including on outpatient basis - IV abx per ID; PICC being placed - Can d/c home from foot and ankle standpoint with close wound follow-up - Will f/u with him in our office as well within one week Admission and Anticipated Discharge Date Admission Date: May 15, 2024 Subjective Pt chart reviewed. Inpatient wound images noted. Having PICC line placed now, so no physical exam performed. Review of Systems Constitutional: + fever, + chills, + fatigue and + malai se Eyes: no problem reported Ear, Nose, Mouth, Throat: no problem reported Respiratory: no problem reported Cardiovascular: + edema; no problem reported Gastrointestinal: no nausea, no vomiting and no problem reported Musculoskeletal: no problem reported Integumentary: + skin ulcer, + wounds and + erythema Neurologic: + loss of sensation, + numbness and + pa resthesia; no generalized weakness Psychiatric: no problem reported Physical Exam Physical Exam: Wound vac intact to left foot. Constitutional: WD/WN, vitals as above + ill appearing and + morbidly obese Eyes: PERRL, conjunctivae normal, anicteric sclerae ENMT: external ear and nose normal, oropharynx normal Neck: trachea midline, no thyromegaly normal visual inspection Respiratory: normal respiratory effort; no respiratory distress Cardiovascular: Rate/Rhythm: regular rate and regular rhythm Extremities: normal capillary refill, + calf tenderness, + pedal edema, + edema and + varicosities Chest (Breasts): Chest: normal inspection of chest Gastrointestinal (Abdomen): Inspection/Auscultation: abdomen normal to inspection Percussion/Palpation: + abdomen tender and abdomen soft Musculoskeletal: no cyanosis or clubbing, extremities motor strength 5/5 Head/Neck/Chest: normocephalic and head atraumatic Extremities: extremities normal to inspection Skin: + turgor decreased, + ulcer, + wound, + skin atrophy, + erythema, + fluctulance, + mottling and + nails dystrophic Neurologic: awake; no focal motor deficits Psychiatric: A+Ox3, euthymic affect Results & Data Results & Data Vital Signs (Past 12 Hours) Vital Signs Temp Pulse Pulse Resp BP BP Pulse Ox 05/28/24 08:30 05/28/24 07:49 36.5 C 66 16 146/78 H 99 05/27/24 23:28 37.0 C 67 18 161/79 H 99 O2 Del Method 05/28/24 08:30 Room Air 05/28/24 07:49 Room Air 05/27/24 23:28 Room Air (1) Diabetic foot ulcer Diabetes mellitus type: type 2 Diabetic foot ulcer location: midfoot Laterality: left Non-pressure ulcer stage: with muscle involvement without evidence of necrosis Qualified Code(s): E11.621 - Type 2 diabetes mellitus with foot ulcer; L97.425 - Non-pressure chronic ulcer of left heel and midfoot with muscle involvement without evidence of necrosis (2) Chronic ulcer of lower extremity Laterality: left Non-pressure ulcer stage: with necrosis of muscle Qualified Code(s): L97.923 - Non-pressure chronic ulcer of unspecified part of left lower leg with necrosis of muscle (3) Diabetes mellitus, type II Diabetes mellitus senior care insulin use: with long term care phlebotomist use Diabetes mellitus complication status: with circulatory complication Diabetes mellitus complication detail: with peripheral angiopathy without gangrene Qualified Code(s): E11.51 - Type 2 diabetes mellitus with diabetic peripheral angiopathy without gangrene; Z79.4 - senior care (current) use of insulin
[2024-05-28 12:45] LABS: Creatinine Clr Calc Pharmacy 50.4 ml/min
--- NOTE | 2024-05-28 14:04 | Pharmacy Report ---
Pharmacy PK ABX Note - Date of Service May 28, 2024 - Assessment and Plan Assessment 69 year old M receiving vancomycin for foot osteomyelitis, s/p left 5th metatarsal amputation 05/21/24. Pathology from surgery is positive for acute osteomyelitis, culture positive for corynebacterium sp. ID consulted and recommend vancomycin. Plan Vancomycin * Random vancomycin level came back at ~18 mcg/ml today. Current vancomycin dosing associated with AUC>600, therefore will reduce vancomycin dosing to 1250 mg iv q 24 hours * Plan to recheck level in next 2-3 days to confirm dosing appropriate Pharmacy will continue to follow and will adjust dose/frequency as necessary. Thank you. Pharmacy has transitioned to AUC monitoring for vancomycin. AUC/ANICETO is the preferred PK/PD target and is associated with decreased risk of nephrotoxicity compared to traditional trough targets.
--- NOTE | 2024-05-28 15:35 | Hospitalist Progress Note ---
Date of Service May 28, 2024 Assessment & Plan (1) Osteomyelitis of toe of left foot: (2) Cellulitis of left foot: (3) Diabetic foot ulcer: (4) Chronic ulcer of lower extremity: (5) CKD (chronic kidney disease): (6) Diabetes mellitus, type II: (7) Sepsis: Plan Patient with osteomyelitis and cellulitis of the left lower extremity in the setting of diabetes. Had initially presented with sepsis which is now resolved. Final recommendations received from infectious disease, vancomycin daily for 4 weeks Case management coordinating home IV antibiotics, has home health care set up. Continue wound VAC, wound clinic follow-up PICC line placed today Anticipate discharge home after dose of vancomycin tomorrow to continue outpatient vancomycin Admission and Anticipated Discharge Date Admission Date: May 15, 2024 Subjective Patient up and ambulating around in his room. He feels well. Physical Exam Physical Exam: Constitutional: Alert HEENT: Mucous membranes moist. Lungs: Clear to auscultation, decreased, no wheezes rales or rhonchi CV: S1-S2, regular Abdomen: Soft, nontender, nondistended Extremities: Bilateral lower extremities with Kerlix dressing that is clean and dry.Wound VAC on left foot Neuro: No focal deficits Psych: Cooperative, normal mood Results & Data Results & Data Vital Signs (Past 12 Hours) Vital Signs Temp Pulse Pulse Resp BP BP Pulse Ox 05/28/24 14:14 36.4 C L 58 L 16 155/74 H 100 05/28/24 08:30 05/28/24 07:49 36.5 C 66 16 146/78 H 99 O2 Del Method 05/28/24 14:14 Room Air 05/28/24 08:30 Room Air 05/28/24 07:49 Room Air Diagnostic Findings Reviewed imaging, laboratory and diagnostic studies. Pertinent findings as below. Creatinine 1.99, stable (3) Diabetic foot ulcer Diabetes mellitus type: type 2 Diabetic foot ulcer location: midfoot Laterality: left Non-pressure ulcer stage: with muscle involvement without evidence of necrosis Qualified Code(s): E11.621 - Type 2 diabetes mellitus with foot ulcer; L97.425 - Non-pressure chronic ulcer of left heel and midfoot with muscle involvement without evidence of necrosis (4) Chronic ulcer of lower extremity Laterality: left Non-pressure ulcer stage: with necrosis of muscle Qualified Code(s): L97.923 - Non-pressure chronic ulcer of unspecified part of left lower leg with necrosis of muscle (6) Diabetes mellitus, type II 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 Diabetes mellitus complication status: with circulatory complication Diabetes mellitus complication detail: with peripheral angiopathy without gangrene Qualified Code(s): E11.51 - Type 2 diabetes mellitus with diabetic peripheral angiopathy without gangrene; Z79.4 - snf (current) use of insulin (7) Sepsis Acute renal failure type: unspecified Sepsis acute organ dysfunction status: with acute organ dysfunction Sepsis type: sepsis due to unspecified organism Severe sepsis acute organ dysfunction type: acute renal failure Severe sepsis shock status: without septic shock Qualified Code(s): A41.9 - Sepsis, unspecified organism; R65.20 - Severe sepsis without septic shock; N17.9 - Acute kidney failure, unspecified
[2024-05-28] MEDS: VANCOMYCIN HCL 1,250 MG in SODIUM CHLORIDE 0.9% 250 ML IV SCH (15:51)
[2024-05-28 19:39] VITALS: O2SAT 99
[2024-05-28] MEDS ORDERED: VANCOMYCIN 1,250mg in D5W 250mL (Use w/ NSS Shortage) IV SCH (22:00)
[2024-05-28] MEDS ORDERED: VANCOMYCIN HCL 1,250 MG in SODIUM CHLORIDE 0.9% 250 ML IV SCH (22:00)
[2024-05-29 07:50] VITALS: BP 146/77; PULSE 61; TEMP 98.2
[2024-05-29 08:38] LABS: Creatinine Clr Calc Pharmacy 52.2 ml/min
--- NOTE | 2024-05-29 11:38 | Discharge Summary ---
Discharge Summary Date of Service May 29, 2024 Principal Dx & Hospital Course #1 = Principal Diagnosis (1) Osteomyelitis of toe of left foot: (2) Cellulitis of left foot: (3) Diabetic foot ulcer: (4) Chronic ulcer of lower extremity: (5) CKD (chronic kidney disease): (6) Diabetes mellitus, type II: (7) Sepsis: Plan Patient presented to the emergency room with signs and symptoms of sepsis related to infected diabetic foot ulcer. Patient was admitted to the hospital. Placed on broad-spectrum IV antibiotics. Imaging was consistent with osteomyelitis of his left foot. Podiatry consultation was obtained. Nephrology consultation was obtained due to his chronic renal dysfunction. Infectious disease consultation was also obtained. Patient was medically maximized continued on IV antibiotics. His kidney function stabilized with holding nephrotoxins. On 05/21/2024 patient underwent left fifth metatarsal ray amputation. Patient was continued on antibiotics postoperatively. He was followed by wound care nurse. A wound VAC was placed. Cultures were followed as well as pathology from the amputation. In collaboration with infectious disease it was determined patient would be best served by being on prolonged course of IV antibiotics is unclear that the surgical margins were free of osteomyelitis. PICC line was placed. Case management to help coordinate home IV antibiotics. He was transition to IV vancomycin. On the day of discharge his renal function had stabilized. His other vital signs were stable. He was tolerating the IV vancomycin. He is up and ambulating in his room with a surgical boot. Home health care was coordinated to continue his wound care and the wound VAC care at home he will be discharged to ongoing outpatient follow-up with his providers. Notes For Next Care Provider Wound care as directed by the wound clinic Follow-up with podiatry Continue to monitor renal function while on antibiotics May need outpatient follow-up for chronic management of his chronic renal dysfunction. Medication Changes From Visit Vancomycin for osteomyelitis Probiotic Losartan discontinued due to renal dysfunction Admission HPI Per Admitting Provider History obtained from patient, family, and records. Medical history significant for chronic diastolic heart failure (55 to 60%, TTE 2023), hypertension, hyperlipidemia, PVD SPENCER on CPAP, DM2 on oral medications, history DVT status post anticoagulation, CRI (baseline creatinine 2), chronic anemia (baseline hemoglobin 9-10), chronic lymphedema/LE venous stasis as per records, gout. Last confinement November 2023 for sepsis secondary to E. coli bacteremia/UTI. Patient noticed progressive left foot swelling since last week. May have been from ill fitting shoes. Patient noticed a black wound on the foot undersurface. Skin may have come off after removing sock as per patient. No drainage, no fever, no chills. Foot swelling not extending up to leg as per patient. Denies chest pain, SOB. Patient directed to ER for evaluation. Clindamycin and Zosyn and vancomycin administered at the ER. 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 Lungs: Clear to auscultation, decreased, no wheezes rales or rhonchi CV: S1-S2, regular Abdomen: Soft, nontender, nondistended Extremities: Some chronic lower extremity edema, thick flaky dermatitis of bilateral lower extremities, wound VAC on left foot, surrounding tissues pink and granulating no evidence of ongoing cellulitis. Dressing on right lower extremity clean dry and intact Neuro: No focal deficits Psych: Cooperative, normal mood Updated Medication List Medication Instructions Recorded Confirmed Type semaglutide 2 mg/dose (8 mg/3 mL) 2 mg subcut WK 01/29/23 05/15/24 History subcutaneous pen injector (Ozempic) ascorbic acid (vitamin C) 1,000 mg 1 g PO QAM #30 tabs 11/22/23 05/15/24 Rx tablet atorvastatin 20 mg tablet 20 mg PO QAM #30 tabs 11/22/23 05/15/24 Rx carvedilol 6.25 mg tablet 6.25 mg PO BID #60 tabs 11/22/23 05/15/24 Rx dorzolamide 22.3 mg-timolol 6.8 1 drp OPB BID #10 mL 11/22/23 05/15/24 Rx mg/mL eye drops epoetin judith 20,000 unit/2 mL 20,000 unit (2 mL) subcut UD #8 mL 11/22/23 05/15/24 Rx injection solution (Procrit) netarsudil 0.02 % eye drops 1 drp OPL HS #2.5 mL 11/22/23 05/15/24 Rx (Rhopressa) omega 2-omq-agb-fish oil 100 1 cap PO QAM #30 caps 11/22/23 05/15/24 Rx mg-160 mg-1,000 mg capsule torsemide 20 mg tablet 20 mg PO QAM 30 days #30 tabs 11/22/23 05/15/24 Rx allopurinol 100 mg tablet 200 mg PO QAM 05/15/24 05/15/24 History ferrous sulfate 325 mg (65 mg 325 mg PO 3XWK 05/15/24 05/15/24 History iron) tablet,delayed release insulin glargine 100 unit/mL (3 20 unit subcut QAM 05/15/24 05/15/24 History mL) subcutaneous pen losartan 25 mg tablet 25 mg PO QAM 05/15/24 05/15/24 History L.acidop,casei,lactis,rham-B.lact,nelli 1 cap PO DAILY #30 caps 05/29/24 Rx 625 mg (10 billion cell) capsule (Advanced Probiotic) famotidine 40 mg tablet 40 mg PO QAM #30 tabs 05/29/24 Rx oxycodone 5 mg tablet 5 - 10 mg (1 - 2 x 5 mg) PO QID 05/29/24 Rx PRN pain #10 tabs Hospital Stay Data Consultations 05/15/24 19:25 ED Decision to Admit Stat 05/15/24 20:32 Consult Podiatry Routine 05/17/24 09:25 Consult Nephrology Routine 05/17/24 12:23 Consult Infectious Diseases Routine Procedures Performed Operation Date: 05/21/24 09:15 Actual Procedures p Left 5th Metatarsal Ray Amputation(Left) - Jarek Cardenas DPM Diagnostic Imagining Performed 05/15/24 20:32 CT foot LT wo con Stat 05/17/24 09:26 US Renal Bladder [US renal/blad retro comp] Routine 05/17/24 10:23 MRI Foot [MR foot LT w/o con] Routine Reviewed imaging, laboratory and diagnostic studies. Pertinent findings as below. Creatinine 1.92, glucose was well-controlled 110-152 Wound culture grew out Corynebacterium, group B strep, MSSA Blood cultures no significant growth WBCs 5.9 Hemoglobin 8.2, stable and improved Pending Results Patient Have Any Pending Studies at Discharge: No Discharge Instructions Given to Patient (Per Discharging Provider) Follow-up with podiatry Continue with wound care and wound VAC Home Health Attestation I certify that this patient is under my care and that I, or a physicians head start assistant teacher working with me, had a face to-face encounter that meets the home health [id number] encounter requirements with this patient. The encounter with the patient was in whole, or in part, for the following medical condition, which is the primary reason for home health care (list medical condition): I certify that, based on my findings, the following services are medically necessary home health services: My clinical findings support the need for the above services because: Further, I certify that my clinical findings support that this patient is homebound (i.e. absences from home require considerable and taxing effort and are for medical reasons or moravian services or infrequently or of short duration when for other reasons) because: Certification for Home Health Services: Based on the above findings, I certify that this patient is confined to the home and needs intermittent care home care, physical therapy and/or speech therapy or continues to need occupational therapy. The patient is under my care, and I have initiated the establishment of the plan of care. This patient will be followed by a physician who will periodically review the plan of care. Total Time Total Time Spent Total Time Spent (In Minutes): 38
== END 2024-05-29 13:23 | disposition home health service (06) | DRG 854 ==
LOC: ED 13:19 → SUATTDRO 20:31 → 2N 20:31 → 3N 05-21 06:14
DX: E11.22 Type 2 diabetes mellitus with diabetic chronic kidney disease; L03.116 Cellulitis of left lower limb; E11.621 Type 2 diabetes mellitus with foot ulcer; E11.69 Type 2 diabetes mellitus with other specified complication; D64.9 Anemia, unspecified; E83.42 Hypomagnesemia; E66.01 Morbid (severe) obesity due to excess calories; E11.51 Type 2 diabetes mellitus with diabetic peripheral angiopathy without gangrene; I87.8 Other specified disorders of veins; N17.9 Acute kidney failure, unspecified; Z79.4 Long term (current) use of insulin; I50.32 Chronic diastolic (congestive) heart failure; I13.0 Hypertensive heart and chronic kidney disease with heart failure and stage 1 through stage 4 chronic kidney disease, or unspecified chronic kidney disease; Z68.41 Body mass index [BMI] 40.0-44.9, adult; L97.529 Non-pressure chronic ulcer of other part of left foot with unspecified severity; A41.9 Sepsis, unspecified organism; Z83.3 Family history of diabetes mellitus; N18.30 Chronic kidney disease, stage 3 unspecified; M86.8X7 Other osteomyelitis, ankle and foot; E11.628 Type 2 diabetes mellitus with other skin complications